=== PATIENT | female | born 1970 | race Caucasian/White ===

== ENCOUNTER → 2020-01-07 13:50 | Outpatient (BNVA) | payer MEDICARE, SELFPAY | PROVIDERS: PCP Internal Medicine; Referring Provider Internal Medicine; Visit Provider Physician Assistant | DX: E66.3 Overweight (principal); Z68.28 Body mass index [BMI] 28.0-28.9, adult; K21.9 Gastro-esophageal reflux disease without esophagitis; K90.49 Malabsorption due to intolerance, not elsewhere classified; Z98.84 Bariatric surgery status | CPT/HCPCS: 99202 ==

== ENCOUNTER 2020-01-28 08:36 | Day surgery (SDC) | payer MEDICARE, SELFPAY ==
--- NOTE | 2020-01-27 11:38 | HO.ANESPROP2 ---
Documented by User: Tenisha Pagan 01/27/20 11:39 HPI - Anesthesia Eval Consult details Narrative: 49yo F for Upper Endoscopy s/p lap band and Asa-en-Y gastric bypass [facility] Past Medical History Medical History Anxiety Asthma Depression Gastric band slippage GERD (gastroesophageal reflux disease) Malabsorption due to intolerance, not elsewhere classified Migraines Overweight (BMI 25.0-29.9) Seasonal allergies Family History Family History Father DM (diabetes mellitus) Heart disease Mother DM (diabetes mellitus) Heart disease Pulmonary hypertension Brother DM (diabetes mellitus) Heart disease Kidney disease Brother HTN (hypertension) DM (diabetes mellitus) High cholesterol Surgical History Surgical History H/O sinus surgery History of Asa-en-Y gastric bypass Hx laparoscopic cholecystectomy Hx of hernia repair Hx of laparoscopic gastric banding Previous back surgery S/P rotator cuff surgery S/P wrist surgery Status post gastric banding Social History Social History Alcohol intake: current Smoking Status: Unknown if ever smoked Use of substances other than those prescribed or required for medical reasons: No Have you been hit, kicked, punched, or otherwise hurt by someone within the past year? If so, by whom?: No Advance Directives: No Advance Directives Information Provided: No Meds Allergies Allergy/AdvReac Type Severity Reaction Status Date / Time No Known Allergies Allergy Unknown Unverified 11/21/19 16:13 Home Medications Medication Instructions Recorded Confirmed Type acetaminophen 500 mg tablet 500 mg PO Q4-6H PRN 01/07/20 History albuterol sulfate 90 mcg/actuation 2 puff INHALATION QID PRN 01/07/20 History aerosol inhaler amitriptyline 25 mg tablet 25 mg PO BEDTIME 01/07/20 History blood sugar diagnostic #10 ea 01/07/20 History bupropion HCl 300 mg 24 hr tablet, mg PO 01/07/20 History extended release clonazepam 0.5 mg tablet 0.5 mg PO DAILY PRN 01/07/20 History clonazepam 1 mg tablet 1 mg PO BEDTIME 01/07/20 History dexlansoprazole 60 mg 60 mg PO BID 01/07/20 History capsule,biphase delayed release doxepin 25 mg capsule mg PO 01/07/20 History estradiol g VAGINAL 01/07/20 History glucagon (human recombinant) 1 mg mg IM DIRECTED 01/07/20 History solution for injection lancets 33 gauge #100 ea 01/07/20 History loratadine 10 mg tablet 10 mg PO DAILY 01/07/20 History lurasidone 60 mg tablet 60 mg PO BEDTIME 01/07/20 History montelukast 10 mg tablet 10 mg PO DAILY 01/07/20 History ondansetron 4 mg disintegrating 4 mg PO Q8H PRN 01/07/20 History tablet topiramate 50 mg tablet 100 mg PO BEDTIME 01/07/20 History ubrogepant 50 mg tablet mg PO 01/07/20 History Exam Exam Date and Time: January 27, 2020 9848 Assessment and Plan Assessment Anesthesia Assessment: Chart Reviewed Documented by User: Naz Bui 01/28/20 09:28 [facility] Past Medical History Medical History Anxiety Asthma Depression Gastric band slippage GERD (gastroesophageal reflux disease) Malabsorption due to intolerance, not elsewhere classified Migraines Overweight (BMI 25.0-29.9) Seasonal allergies Family History Family History Father DM (diabetes mellitus) Heart disease Mother DM (diabetes mellitus) Heart disease Pulmonary hypertension Brother DM (diabetes mellitus) Heart disease Kidney disease Brother HTN (hypertension) DM (diabetes mellitus) High cholesterol Family history of problems with anesthesia: No Surgical History Surgical History H/O sinus surgery History of Asa-en-Y gastric bypass Hx laparoscopic cholecystectomy Hx of hernia repair Hx of laparoscopic gastric banding Previous back surgery S/P rotator cuff surgery S/P wrist surgery Status post gastric banding History of Problems with Anesthesia: No Social History Social History Alcohol intake: current Smoking Status: Unknown if ever smoked Use of substances other than those prescribed or required for medical reasons: No Have you been hit, kicked, punched, or otherwise hurt by someone within the past year? If so, by whom?: No Advance Directives: No Advance Directives Information Provided: No Meds Allergies Allergy/AdvReac Type Severity Reaction Status Date / Time No Known Allergies Allergy Unknown Unverified 11/21/19 16:13 Home Medications Medication Instructions Recorded Confirmed Type acetaminophen 500 mg tablet 500 mg PO Q4-6H PRN 01/07/20 History albuterol sulfate 90 mcg/actuation 2 puff INHALATION QID PRN 01/07/20 History aerosol inhaler amitriptyline 25 mg tablet 25 mg PO BEDTIME 01/07/20 History blood sugar diagnostic #10 ea 01/07/20 History bupropion HCl 300 mg 24 hr tablet, mg PO 01/07/20 History extended release clonazepam 0.5 mg tablet 0.5 mg PO DAILY PRN 01/07/20 History clonazepam 1 mg tablet 1 mg PO BEDTIME 01/07/20 History dexlansoprazole 60 mg 60 mg PO BID 01/07/20 History capsule,biphase delayed release doxepin 25 mg capsule mg PO 01/07/20 History estradiol g VAGINAL 01/07/20 History glucagon (human recombinant) 1 mg mg IM DIRECTED 01/07/20 History solution for injection lancets 33 gauge #100 ea 01/07/20 History loratadine 10 mg tablet 10 mg PO DAILY 01/07/20 History lurasidone 60 mg tablet 60 mg PO BEDTIME 01/07/20 History montelukast 10 mg tablet 10 mg PO DAILY 01/07/20 History ondansetron 4 mg disintegrating 4 mg PO Q8H PRN 01/07/20 History tablet topiramate 50 mg tablet 100 mg PO BEDTIME 01/07/20 History ubrogepant 50 mg tablet mg PO 01/07/20 History Exam Height,Weight and Vital Signs: Vital Signs Temp Pulse Resp BP Pulse Ox 01/28/20 09:00 99 F 76 16 105/66 100 Pertinent Lab Results Pertinent Lab Results: Lab Results 11/24/20 Range/Units 09:02 POC Glucose 80 (60-115) mg/dL Airway Mallampati Class: II TM Dist: >3cm Neck ROM: Limited (Pain, had physical therapy) Loose/Missing/Broken Teeth: No Heart: RRR Lungs: CTAB Assessment and Plan Assessment Anesthesia Assessment: Anesthesia Plan Discussed and Chart Reviewed Final Anesthetic Review NPO: Yes ASA Class: II Final Preanesthetic Review: No Changes in Pt Med Stat, Meds/Allgs Chart Reviewed, Consent Obtained/Reviewed and Anes Risks/Benef Reviewed Patient Risk: Low Procedure Risk: Low Anesthetic Plan Anesthetic Plan: MAC: Disposition: Standard PACU
[2020-01-27 15:17] VITALS: BMI 28.3
[2020-01-28 09:00] VITALS: BP 105/66; PULSE 76; RESP 16; TEMP 37.2; O2SAT 100
[2020-01-28 09:05] LABS: Glucose, Whole Blood 80 mg/dL (60-115)
[2020-01-28] MEDS: Dextrose 5 % 250 ML 50 ML IVCONT (09:10)
[2020-01-28] MEDS: Lactated Ringers 1,000 ML 100 ML IVCONT (09:14)
--- NOTE | 2020-01-28 09:38 | PC.NURSE ---
pt states she has hypoglycemia, checked pt blood glucose @ 17686 and it was 80. pt states she feels that she is getting a headache which is a symptom for her hypoglycemia. Dr. Bui paged and ordered 250cc of D5W. IV established and fluids hung. after infusion of D5W completed, blood glucose rechecked at 0937, POC = 127. pt states headache has improved.
[2020-01-28 09:50] LABS: Glucose, Whole Blood 127 mg/dL (60-115)
--- NOTE | 2020-01-28 10:17 | MHC.SHP ---
Pre-Procedural Eval Section A The patient is an INPATIENT: No The History & Physical has been completed within 30 days and I have reviewed it.: Yes Section B Chief Complaint: Severe Morbid Obesity Details of Present Illness: nausea, vomiting, GERD Relevant Family History (Specify if Yes): No Relevant Social History: None Present Medications: see Short Stay Collaborative assessment Medical History: No relevant PMH History of Previous Operations: Relevant previous surgery/procedure and date(s) (open gastric bypass, lap band over the bypass) Allergies: Allergies Allergy/AdvReac Type Severity Reaction Status Date / Time No Known Allergies Allergy Unknown Unverified 11/21/19 16:13 Review of Systems Sugical H&P ROS: Negative: Constitution, Cardiovascular, Respiratory, Neurological, Psychiatric, Hem-Onc, Allergic/Immunologic, Gastrointestinal, Genitourinary, Musculoskeletal, Integumentary, Endocrine and Eyes/Ears/Nose/Throat Exam Surgical H&P Exam: Normal: HEENT, Normal: Heart, Normal: Lungs, Normal: Extremities, Normal: Abdomen, Normal: Skin and Normal: Neurological Plan Diagnosis/Plan: Unchanged Patient has been examined and remains a candidate for the planned procedure
[2020-01-28 10:51] VITALS: BP 101/56; PULSE 67; RESP 12; TEMP 36.4; O2SAT 100
[2020-01-28 11:06] VITALS: BP 114/68; PULSE 73; RESP 16; O2SAT 100
--- NOTE | 2020-01-28 11:20 | P.BOP_ITS ---
Brief Operative Note Date of Service: 01/28/20 Pre-op diagnosis: GERD, nausea, vomiting, s/p open gastric bypass and lap band Post-op diagnosis: same (1) Slipped band, 2) esophagitis grade II, 3) Brown's esophagus, 4) hiatal hernia, 5) redundant gastric pouch) Procedure: PROCEDURE DATE: 01/28/2020 PREOPERATIVE DIAGNOSIS: GERD, nausea and vomiting s/p gastric bypass and lap band POSTOPERATIVE DIAGNOSIS: Same as above. 1) slipped band, 2) esophagitis grade II, 3) Brown's esophagus, 4) Redundant gastric pouch, 5) hiatal hernia PROCEDURE: Agoxjxpw-pvlojk-goicvmhlgae with biopsies Surgeon: Ajay Mullen M.D.. Ph.D. [employer] T[employer] Builder: None Anesthesia: IV sedation Estimated blood loss: Minimal FINDINGS AND PROCEDURE: OPERATIVE INDICATIONS: The patient is a 49 year old female known to me who underwent an open gastric bypass elsewhere followed by a lap band over the bypass. The patient has persistent nausea, vomiting and GERD. An UGI and CT abdomen/pelvis are suggestive of a slipped band. Based on this information I recommended an upper endoscopy to evaluate the patient's symptoms. Risks and complications of the surgery were discussed with the patient in advance particularly the possibility of perforation or bleeding that may require surgical intervention. The patient understood the risks and was in agreement with the plan. PROCEDURE: After informed consent was obtained by the patient, the patient was transferred to the Operating Room and was placed in the supine position. After successful induction of IV sedation, a mouth block was placed and the patient was placed in the left lateral decubitus position. An upper endoscopy was performed next, the oropharynx and proximal esophagus appeared within the normal limits. Distal esophagus had salmon-like appearance suggestive of Brown's. There was 2-3cm hiatal hernia. The z-line was irregular with tongues of gastric mucosa protruding into the esophagus to <50% circumference. Two biopsies were obtained from the distal esophagus 2-3 cm proximal to the GE junction and two biopsies from the GE junction. GEJ was at 36cm. The gastric pouch was entered. There was lateral redundancy and it was long. The band was at 42cm, 6cm below the GEJ suggestive of significant of slippage or placed incorectly from the beginning. There was no gastritis and the gastrojejunostomy was patent. There was no band erosion. A biopsy was obtained from the gastric pouch. No significant bleeding was noted from any of the biopsy sites. There was no anastomotic ulcer. At that point the scope was advanced into the proximal small intestine (proximal Asa limb) which appeared to be normal as well. The Asa limb and the pouch were decompressed and the scope was withdrawn from the patient's mouth. The patient was awaken and was transferred in stable condition to the Recovery Room for further care. I was present and performed all steps of the procedure. There were no residents to assist with this case. Ajay Mullen M.D., Ph.D. Surgeon: Tobin Mullen MD Estimated blood loss (mL): 5 IV fluids (mL): 300 Urine output (mL): 0 (No Klein to record) Pathology: other (1) GEJ x2, 2) distal esophagus x2, 3) gastric pouch x1) Condition: stable Disposition: PACU
--- NOTE | 2020-01-28 11:35 | HO.POSTANES ---
Post Anesthesia Evaluation Post Anesthesia Evaluation Vital Signs: Vital Signs Temp Pulse Resp BP Pulse Ox 01/28/20 11:06 97.5 F 73 16 114/68 100 01/28/20 10:51 97.5 F 67 12 101/56 L 100 01/28/20 09:00 99 F 76 16 105/66 100 Anesthesia: Monitored Mental Status: Awake Pain Control: Satisfactory Nausea/Vomiting: None Hydration: Adequate Anesthesia-Related Issues: No Anes. Related Issues
== END 2020-01-28 11:45 | disposition home or self-care (01) ==
PROVIDERS: PCP Internal Medicine; Visit Provider Surgery
PROC: 0DJ08ZZ Inspection of Upper Intestinal Tract, Via Natural or Artificial Opening Endoscopic (ICD-10-PCS; CPT 43235; principal; 2020-01-28 09:30)
DX: K95.09 Other complications of gastric band procedure (principal); K21.00 Gastro-esophageal reflux disease with esophagitis, without bleeding; K90.49 Malabsorption due to intolerance, not elsewhere classified; E66.3 Overweight; Z68.28 Body mass index [BMI] 28.0-28.9, adult; K22.70 Barrett's esophagus without dysplasia; K44.9 Diaphragmatic hernia without obstruction or gangrene; J45.909 Unspecified asthma, uncomplicated; Z98.84 Bariatric surgery status
CPT/HCPCS: 43239; 82947; 88305; 88342

== ENCOUNTER 2020-01-29 10:44 | Outpatient (REF) | payer MEDICARE, SELFPAY ==
[2020-01-29 12:15] LABS: Blood Urea Nitrogen 12 mg/dL (9-16); Estimated Glomerular Filt Rate > 60
== END 2020-01-29 10:45 | disposition home or self-care (01) ==
LOC: HO.LAB 10:44
PROVIDERS: PCP Internal Medicine; Visit Provider Physician Assistant
DX: Z01.818 Encounter for other preprocedural examination (principal)
CPT/HCPCS: 82565; 84520

== ENCOUNTER → 2020-02-05 10:12 | Outpatient (BNVA) | payer MEDICARE, SELFPAY | PROVIDERS: PCP Internal Medicine; Referring Provider Internal Medicine; Visit Provider Surgery | DX: K95.09 Other complications of gastric band procedure (principal); K21.9 Gastro-esophageal reflux disease without esophagitis; K20.90 Esophagitis, unspecified without bleeding; K44.9 Diaphragmatic hernia without obstruction or gangrene | CPT/HCPCS: 99212 ==

== ENCOUNTER 2020-02-06 07:10 | Outpatient (REF) | payer MEDICARE, SELFPAY ==
--- NOTE | 2020-02-06 07:45 | CT_ITS ---
EXAMINATION: CT ABDOMEN AND PELVIS WITH CONTRAST CLINICAL INFORMATION: Abdominal pain. History of gastric lap-band. COMPARISON: None TECHNIQUE: Multidetector volumetric images were obtained from the superior aspect of the liver through the pubic symphysis following administration 85 mL of Omnipaque 350 intravenous contrast. Sagittal and coronal reformatted images were obtained on the technologist's workstation. Oral contrast: No This CT examination was performed using dose optimization techniques as appropriate, variously including the following: *Automated exposure control *Adjustment of mA and/or kV according to patient size (this includes techniques or standardized protocols for targeted exams where dose is matched to indication/reason for exam; i.e. extremities or head) *Use of iterative reconstruction technique DLP: 484 mGy-cm FINDINGS: LUNG BASES: The heart size is normal. The lung bases are clear. A small hiatal hernia is seen. LIVER, GALLBLADDER, AND BILIARY TREE: The liver is normal in size, shape, and attenuation. There are punctate hypodensities in the right and left hepatic lobe. No intrahepatic ductal dilatation seen. The gallbladder has been surgically removed. PANCREAS: Unremarkable. SPLEEN: Unremarkable. ADRENAL GLANDS: Unremarkable. KIDNEYS AND URETERS: The kidneys are normal in size, shape, and attenuation. No hydronephrosis, hydroureter, or calculi seen. No perinephric stranding. BLADDER: Unremarkable. GASTROINTESTINAL TRACT: There is scattered stool and gas seen throughout the colon without any significant distention. There is nonspecific mural thickening involving a small segment of small bowel loop in the upper pelvis on axial image 50-60/3. There is a lap-band and post sleeve changes in the left upper quadrant. ABDOMINAL WALL: There is an anterior abdominal wall hernia repair with mesh in place. LYMPH NODES: Normal. VASCULAR: Unremarkable. PELVIC VISCERA: The uterus is retroverted. No adnexal mass or free fluid seen. OSSEOUS STRUCTURES: There is a grade 1 anterolisthesis L5-S1 stabilized with disc hardware and posterior hardware for fusion. The rest of the visualized lumbar spine and the sacral spine is unremarkable. CT/CT abdomen pelvis w con IMPRESSION: Likely sleeve surgery and gastric lap-band changes in the left upper quadrant. There is a small hiatal hernia present. Mild constipation. Evidence of previous anterior abdominal hernia repair with mesh in place. No recurrent herniation. L5-S1 fusion with disc and posterior bony hardware fusion.
--- NOTE | 2020-02-06 07:45 | XR_ITS ---
EXAMINATION: XR CHEST CLINICAL INFORMATION: Chest pain. Over weight. COMPARISON: None TECHNIQUE: 2 views of the chest were obtained. FINDINGS: No significant abnormality is noted involving the heart, lungs, mediastinum, bony thorax or soft tissues. XR/XR chest 2V IMPRESSION: Unremarkable chest examination.
[2020-02-06 08:59] LABS: MANUAL DIFF FLAG NO
[2020-02-06 09:03] LABS: Basophils Absolute Auto 0.1 X10*3/uL (0.0-0.2); Basophils Percent Auto 1.2 % (0-2); Eosinophils Absolute Auto 0.4 X10*3/uL (0.0-0.4); Eosinophils Percent Auto 6.1 % (0-4); Hematocrit 41.5 % (37-47); Hemoglobin 13.5 g/dl (12.0-16.0); Imm Gran Abs Auto 0.01 X10*3/uL (0.00-0.03); Imm Gran Pct Auto 0.2 % (0.0-0.4); Lymphocytes Absolute Auto 2.1 X10*3/uL (1.2-4.9); Mean Corpuscular HGB Conc 32.5 g/dl (31.0-35.0); Mean Corpuscular Hemoglobin 29.8 pg (27.0-33.0); Mean Corpuscular Volume 91.6 fL (80-98); Mean Platelet Volume 10.6 fL (9.4-12.3); Monocytes Absolute Auto 0.6 X10*3/uL (0.1-1.2); Monocytes Percent Auto 9.3 % (2-11); Neutrophils Absolute Auto 2.8 X10*3/uL (2.0-8.3); Neutrophils Percent Auto 47.2 % (45-73); Platelet Count 272 X10*3/uL (160-400); Red Blood Count 4.53 X10*6/uL (4.20-5.50); Red Cell Distribution Width 12.8 % (11.0-16.0); White Blood Count 5.9 X10*3/uL (4.8-10.8)
[2020-02-06 09:14] LABS: INTERNATIONAL NORM RATIO 0.9 (0.9-1.1); Prothrombin Time 10.8 SEC (10.8-13.0)
[2020-02-06 09:16] LABS: Partial Thromboplastin Time 30.4 SEC (24.1-38.0)
[2020-02-06 09:18] LABS: Alanine Aminotransferase 36 U/L (0-31); Albumin Level 4.1 g/dL (3.5-5.0); Alkaline Phosphatase 84 U/L (39-117); Anion Gap 10 (12-20); Aspartate Amino Transferase 30 U/L (5-31); Bilirubin Total 0.4 mg/dL (0.0-1.0); Blood Urea Nitrogen 10 mg/dL (9-16); C Reactive Protein 0.04 mg/dL (< or = 0.50); Calcium 9.3 mg/dL (8.4-10.2); Carbon Dioxide 28 mmol/L (22-29); Chloride 109 mmol/L (96-108); Estimated Glomerular Filt Rate > 60; Glucose Random 79 mg/dL (60-115); Potassium 4.8 mmol/l (3.3-5.1); Sodium 142 mmol/L (135-145); Total Protein 6.5 g/dL (6.5-8.0)
[2020-02-06 09:39] LABS: TSH reflex Free T4 3.39 mIU/mL (0.32-4.0)
--- NOTE | 2020-02-06 10:43 | ECG_ITS ---
Test Reason : SOB, PREOP Blood Pressure : / mmHG Vent. Rate : 064 BPM Atrial Rate : 064 BPM P-R Int : 212 ms QRS Dur : 086 ms QT Int : 402 ms P-R-T Axes : 063 024 060 degrees QTc Int : 414 ms Sinus rhythm with 1st degree A-V block Low voltage QRS Borderline ECG No previous ECGs available Referred By: Tobin Mullen Electronically Signed By:PAUL WATT MD
[2020-02-06] MEDS: iohexoL 350 MG/ML 100 ML INFUS..BTL IV (11:34)
[2020-02-06] MEDS: Barium Sulfate Oral (Vanilla) 450 ML ORAL.SUSP 900 ML PO (11:35)
== END 2020-02-06 07:11 | disposition home or self-care (01) ==
LOC: HO.CT 07:10
PROVIDERS: Surgery; Visit Provider Physician Assistant
DX: K44.9 Diaphragmatic hernia without obstruction or gangrene (principal); K20.90 Esophagitis, unspecified without bleeding; K95.09 Other complications of gastric band procedure; K21.9 Gastro-esophageal reflux disease without esophagitis; K90.49 Malabsorption due to intolerance, not elsewhere classified; F33.2 Major depressive disorder, recurrent severe without psychotic features; E66.3 Overweight; R10.11 Right upper quadrant pain; Z98.84 Bariatric surgery status
CPT/HCPCS: 36415; 71046; 74177; 80053; 84443; 85025; 85610; 85730; 86140; 93005; Q9967

== ENCOUNTER 2020-02-11 05:19 | Inpatient (IN) | payer MEDICARE, OTHER, SELFPAY ==
[2020-02-06 12:16] VITALS: BMI 29.4
--- NOTE | 2020-02-10 13:58 | MHC.SHP ---
Pre-Procedural Eval Section A The patient is an INPATIENT: Yes The History & Physical has been completed within 30 days and I have reviewed it.: Yes Section B Chief Complaint: gastric band problems Details of Present Illness: Vomiting and GERD Relevant Family History (Specify if Yes): No Relevant Social History: None Present Medications: see Short Stay Collaborative assessment Medical History: No relevant PMH History of Previous Operations: Relevant previous surgery/procedure and date(s) (open gastric bypass and lap band ) Allergies: Allergies Allergy/AdvReac Type Severity Reaction Status Date / Time No Known Allergies Allergy Unknown Unverified 02/05/20 10:31 Review of Systems Sugical H&P ROS: Negative: Constitution, Cardiovascular, Respiratory, Neurological, Psychiatric, Hem-Onc, Allergic/Immunologic, Gastrointestinal, Genitourinary, Musculoskeletal, Integumentary, Endocrine and Eyes/Ears/Nose/Throat Exam Surgical H&P Exam: Normal: HEENT, Normal: Heart, Normal: Lungs, Normal: Extremities, Normal: Abdomen, Normal: Skin and Normal: Neurological Plan Diagnosis/Plan: Unchanged Patient has been examined and remains a candidate for the planned procedure
[2020-02-11] VITALS (11 sets, daily range): BP systolic 99–142; BP diastolic 62–83; PULSE 68–85; RESP 12–18; TEMP 36.3–37.1; O2SAT 94–100
[2020-02-11 06:14] LABS: COVID-19 Test Negative (Negative)
[2020-02-11] MEDS: ceFAZolin Sodium/Dextrose,Iso 2 GM/50 ML PIGGYBACK IV ×2 (06:15→12:56)
[2020-02-11] MEDS: Lactated Ringers 1,000 ML 999 ML IVCONT (06:42)
[2020-02-11] MEDS: Lactated Ringers 1,000 ML 50 ML IVCONT (06:45)
--- NOTE | 2020-02-11 07:10 | HO.ANESPROP2 ---
[facility] Past Medical History Medical History Anxiety Asthma Depression Gastric band slippage GERD (gastroesophageal reflux disease) Hypoglycemia Malabsorption due to intolerance, not elsewhere classified Migraines Overweight (BMI 25.0-29.9) Seasonal allergies Family History Family History Father DM (diabetes mellitus) Heart disease Mother DM (diabetes mellitus) Heart disease Pulmonary hypertension Brother DM (diabetes mellitus) Heart disease Kidney disease Brother HTN (hypertension) DM (diabetes mellitus) High cholesterol Surgical History Surgical History H/O sinus surgery History of esophagogastroduodenoscopy (EGD) History of Asa-en-Y gastric bypass Hx laparoscopic cholecystectomy Hx of hernia repair Hx of laparoscopic gastric banding Previous back surgery S/P rotator cuff surgery S/P wrist surgery Status post gastric banding Social History Social History Alcohol intake: current Smoking Status: Never smoker Second Hand Smoke Exposure: No Advance Directives: No Advance Directives Information Provided: Yes Meds Allergies Allergy/AdvReac Type Severity Reaction Status Date / Time No Known Allergies Allergy Unknown Unverified 02/05/20 10:31 Home Medications Medication Instructions Recorded Confirmed Type acetaminophen 500 mg tablet 500 mg PO Q4-6H PRN 01/07/20 02/06/20 History albuterol sulfate 90 mcg/actuation 2 puff INHALATION QID PRN 01/07/20 02/06/20 History aerosol inhaler amitriptyline 25 mg tablet 25 mg PO BEDTIME 01/07/20 02/06/20 History blood sugar diagnostic #10 ea 01/07/20 History bupropion HCl 300 mg 24 hr tablet, 300 mg PO DAILY 01/07/20 02/06/20 History extended release clonazepam 0.5 mg tablet 0.5 mg PO DAILY PRN 01/07/20 02/06/20 History clonazepam 1 mg tablet 1 mg PO BEDTIME 01/07/20 02/06/20 History dexlansoprazole 60 mg 60 mg PO BID 01/07/20 02/11/20 History capsule,biphase delayed release doxepin 25 mg capsule 25 mg PO BEDTIME 01/07/20 02/06/20 History glucagon (human recombinant) 1 mg 1 mg IM DIRECTED 01/07/20 02/06/20 History solution for injection lancets 33 gauge #100 ea 01/07/20 History loratadine 10 mg tablet 10 mg PO DAILY 01/07/20 02/06/20 History lurasidone 60 mg tablet 60 mg PO BEDTIME 01/07/20 02/06/20 History montelukast 10 mg tablet 10 mg PO BEDTIME 01/07/20 02/06/20 History topiramate 50 mg tablet 100 mg PO BEDTIME 01/07/20 02/06/20 History ubrogepant 50 mg tablet 50 mg PO DIRECTED PRN 01/07/20 02/06/20 History Exam Exam Date and Time: February 11, 2020 0710 Height,Weight and Vital Signs: Height 5 ft 2 in Weight 73.028 kg Last Vital Signs Temp 98.8 F 02/11/20 06:20 Pulse 73 02/11/20 06:20 Resp 16 02/11/20 06:20 BP 99/74 02/11/20 06:20 Pulse Ox 95 02/11/20 06:20 Pertinent Lab Results Pertinent Lab Results: Laboratory Tests 02/06/20 02/11/20 07:23 05:53 COVID-19 (TIN) Negative COVID-19 Clin Com See Note Blood Type A Negative Antibody Screen NEGATIVE Airway Mallampati Class: II TM Dist: >3cm Neck ROM: Full Denture: Upper and Lower Heart: [id number] Lungs: cta b/l Assessment and Plan Assessment Anesthesia Assessment: Anesthesia Plan Discussed and Chart Reviewed Final Anesthetic Review NPO: Yes ASA Class: III Final Preanesthetic Review: No Changes in Pt Med Stat, Meds/Allgs Chart Reviewed, Consent Obtained/Reviewed and Anes Risks/Benef Reviewed Patient Risk: Intermediate Procedure Risk: Low Assessment/Block/Sedation in SS: Assess/Block/Sedation-SS Anesthetic Plan Anesthetic Plan: MAC: Disposition: Standard PACU
--- NOTE | 2020-02-11 07:15 | HO.ANESPROP2 ---
FORMERLY [facility] Past Medical History Medical History Anxiety Asthma Depression Gastric band slippage GERD (gastroesophageal reflux disease) Hypoglycemia Malabsorption due to intolerance, not elsewhere classified Migraines Overweight (BMI 25.0-29.9) Seasonal allergies Family History Family History Father DM (diabetes mellitus) Heart disease Mother DM (diabetes mellitus) Heart disease Pulmonary hypertension Brother DM (diabetes mellitus) Heart disease Kidney disease Brother HTN (hypertension) DM (diabetes mellitus) High cholesterol Surgical History Surgical History H/O sinus surgery History of esophagogastroduodenoscopy (EGD) History of Asa-en-Y gastric bypass Hx laparoscopic cholecystectomy Hx of hernia repair Hx of laparoscopic gastric banding Previous back surgery S/P rotator cuff surgery S/P wrist surgery Status post gastric banding Social History Social History Alcohol intake: current Smoking Status: Never smoker Second Hand Smoke Exposure: No Advance Directives: No Advance Directives Information Provided: Yes Meds Allergies Allergy/AdvReac Type Severity Reaction Status Date / Time No Known Allergies Allergy Unknown Unverified 02/05/20 10:31 Home Medications Medication Instructions Recorded Confirmed Type acetaminophen 500 mg tablet 500 mg PO Q4-6H PRN 01/07/20 02/06/20 History albuterol sulfate 90 mcg/actuation 2 puff INHALATION QID PRN 01/07/20 02/06/20 History aerosol inhaler amitriptyline 25 mg tablet 25 mg PO BEDTIME 01/07/20 02/06/20 History blood sugar diagnostic #10 ea 01/07/20 History bupropion HCl 300 mg 24 hr tablet, 300 mg PO DAILY 01/07/20 02/06/20 History extended release clonazepam 0.5 mg tablet 0.5 mg PO DAILY PRN 01/07/20 02/06/20 History clonazepam 1 mg tablet 1 mg PO BEDTIME 01/07/20 02/06/20 History dexlansoprazole 60 mg 60 mg PO BID 01/07/20 02/11/20 History capsule,biphase delayed release doxepin 25 mg capsule 25 mg PO BEDTIME 01/07/20 02/06/20 History glucagon (human recombinant) 1 mg 1 mg IM DIRECTED 01/07/20 02/06/20 History solution for injection lancets 33 gauge #100 ea 01/07/20 History loratadine 10 mg tablet 10 mg PO DAILY 01/07/20 02/06/20 History lurasidone 60 mg tablet 60 mg PO BEDTIME 01/07/20 02/06/20 History montelukast 10 mg tablet 10 mg PO BEDTIME 01/07/20 02/06/20 History topiramate 50 mg tablet 100 mg PO BEDTIME 01/07/20 02/06/20 History ubrogepant 50 mg tablet 50 mg PO DIRECTED PRN 01/07/20 02/06/20 History Exam Exam Date and Time: February 11, 2020714 Height,Weight and Vital Signs: Height 5 ft 2 in Weight 73.028 kg Last Vital Signs Temp 98.8 F 02/11/20 06:20 Pulse 73 02/11/20 06:20 Resp 16 02/11/20 06:20 BP 99/74 02/11/20 06:20 Pulse Ox 95 02/11/20 06:20 Pertinent Lab Results Pertinent Lab Results: Laboratory Tests 02/06/20 02/11/20 07:23 05:53 COVID-19 (TIN) Negative COVID-19 Clin Com See Note Blood Type A Negative Antibody Screen NEGATIVE Airway Mallampati Class: II TM Dist: >3cm Neck ROM: Full Loose/Missing/Broken Teeth: No Heart: [id number] Lungs: cta b/l Assessment and Plan Assessment Anesthesia Assessment: Anesthesia Plan Discussed and Chart Reviewed Final Anesthetic Review NPO: Yes ASA Class: III Final Preanesthetic Review: No Changes in Pt Med Stat, Meds/Allgs Chart Reviewed, Consent Obtained/Reviewed and Anes Risks/Benef Reviewed Patient Risk: Intermediate Procedure Risk: Low Assessment/Block/Sedation in SS: Assess/Block/Sedation-SS Anesthetic Plan Anesthetic Plan: GA and Agree w/ Assess. and Plan Disposition: Standard PACU
--- NOTE | 2020-02-11 08:12 | PC.NURSE ---
removed liquid tylenol iv for procedure. awaiting for md order. anesthesia cortext .
[2020-02-11] MEDS: ondansetron HCL 4 MG/2 ML VIAL IVPUSH (11:18)
[2020-02-11] MEDS: Famotidine/PF 20 MG/2 ML VIAL IVPUSH ×2 (11:35→21:02)
[2020-02-11 11:49] LABS: MANUAL DIFF FLAG NO
[2020-02-11 11:51] LABS: Basophils Percent Auto 0.4 % (0-2); Eosinophils Absolute Auto 0.1 X10*3/uL (0.0-0.4); Eosinophils Percent Auto 0.7 % (0-4); Hematocrit 41.2 % (37-47); Hemoglobin 13.5 g/dl (12.0-16.0); Imm Gran Abs Auto 0.03 X10*3/uL (0.00-0.03); Imm Gran Pct Auto 0.3 % (0.0-0.4); Lymphocytes Absolute Auto 0.9 X10*3/uL (1.2-4.9); Lymphocytes Percent Auto 10.1 % (20-40); Mean Corpuscular HGB Conc 32.8 g/dl (31.0-35.0); Mean Corpuscular Volume 91.6 fL (80-98); Mean Platelet Volume 10.1 fL (9.4-12.3); Monocytes Absolute Auto 0.2 X10*3/uL (0.1-1.2); Monocytes Percent Auto 2.3 % (2-11); Neutrophils Absolute Auto 7.8 X10*3/uL (2.0-8.3); Neutrophils Percent Auto 86.2 % (45-73); Platelet Count 236 X10*3/uL (160-400); Red Cell Distribution Width 12.7 % (11.0-16.0)
[2020-02-11 12:18] LABS: Anion Gap 12 (12-20); Blood Urea Nitrogen 18 mg/dL (9-16); Calcium 8.7 mg/dL (8.4-10.2); Carbon Dioxide 24 mmol/L (22-29); Chloride 106 mmol/L (96-108); Creatinine Clr Calc Pharmacy 87.6; Estimated Glomerular Filt Rate > 60; Glucose Random 112 mg/dL (60-115); Potassium 4.7 mmol/l (3.3-5.1); Sodium 137 mmol/L (135-145)
[2020-02-11] MEDS: HYDROmorphone HCl 0.5 MG/0.5 ML SYRINGE 0.25 MG IVPUSH (12:52)
[2020-02-11] MEDS: Lactated Ringers 1,000 ML 125 ML IVCONT ×2 (12:53→21:05)
--- NOTE | 2020-02-11 12:56 | P.BOP_ITS ---
Brief Operative Note Date of Service: 02/11/20 Pre-op diagnosis: Severe vomiting/nausea/GERD/Esophagits/Diaphragmatic hernia Post-op diagnosis: same (extensive abdominal adhesions) Procedure: PROCEDURE: Esophago-gastroscopy, extensive laparoscopic lysis of adhesions, laparoscopic gastric band removal and accessories INDICATIONS: This is a 49 year-old female who presented woth severe nausea/vomiting/GERD. The patient had an open gastric bypass at [facility], followed by a lap band procedure by Dr. Nunes. Upon review of previous records and work-up here, the patient was found to have a slipped band being at the level of the gastro-jejunostomy, a fixed diaphragmatic hernia, as well as ersophagitis on upper endoscopy. Due to the above the patient was electively scheduled for laparoscopic, possibly open removal of the gastric band, with a possible hiatal hernia repair, if feasible. The risks and complications of the procedure were discussed with the patient in advance, particularly the possibility of ; pulmonary embolism; staple line leak; bleeding; GERD; cardiac, pulmonary, or renal complications. The patient understood all the risks, and was in agreement to proceed with surgery. DESCRIPTION OF PROCEDURE: After informed consent was obtained from the patient, the patient was given preoperative antibiotics, and was transferred to the operating room. After successful induction of general anesthesia, pneumatic compressive devices were placed on both lower extremities. An upper endoscopy was performed next. The oropharynx and esophagus appeared to be within normal limits. There was a diaphragmatic hernia present of moderate size consistent with the findings of the preoperative upper GI. The stomach was entered. Then after all fluid and air were suctioned and the stomach was fully decompressed, the scope was withdrawn and secured in the mid esophagus. The patient was then prepped and draped in the usual sterile manner. Due to the previous open gastric bypass midline incision, panniculectomy and laparoscopic incisional ventral hernia repair with mesh, abdominal access was established at the right flank and the anterior axillary line with the Karla technique. A 12 mm blunt port was inserted, and the abdomen was insufflated with CO2 to a pressure of 15 mmHg. Under direct visualization, additional ports were placed, specifically two 5 mm Versi-step ports to the right flank at the posterior axillary line and at the midline at the suprapubic region. 1% lidocained plan was used to infiltrate all port sites as well as all fascia defects. There were numerous, dense and extensive adhesions at the area of the mesh involving the omentum and the transverse colon. Careful and tedious dissection allowed to take down all these adhesions and expose the upper abdomen. Adhesiolysis for this part took 90 minutes. Following that, the patient was placed in a steep reverse Trendelenburg position. Three additional 5 mm port were placed, two of which in the left upper abdomen and one to the right upper quadrant. The remnant stomach was carefully freed from the undersurface of the right and left liver lobe. The tubing system was identified. It was embedded within a fibrin capsule. It was cut as proximally as possible and distally as near to the port as possible and was removed without difficulty. I continued to work near the caudate lobe advancing into the hiatus. This allowed us to expose the band . The fibrous capsule was freed enough to mobilize the band. At that point it was cut and was pulled from around the gastric pouch. It was removed intact from the patient's abdomen. I the fibrinous capsule from the liver bed and I was able to see the right mahnaz. There was an obvious diaphragmatic hernia present. However there were extensive adhesions remaining to dissect the hiatus. As we had already spent 2 hours and 40 minutes taking down adhesions and there was a risk of a possible injury in the gastro-jejunostomy or pouch from further dissection, I decided to stop at this point. I feel that the removal of the band will significantly improve the patient's symptoms. The Karla port was closed with a #1 suture using the EndoClose suture passer. The abdomen was deflated. The 5mm trocar right upper quadrant incision was enlarged and using cautery the port was easily identified and removed intact. Hemostasis was obtained. Then 100 cc 0.25 % Marcaine plain with 10 mg of Dexamethasone were used to infiltrate the fascial closure as well as all skin incisions. At this point, the abdomen was deflated, all ports were removed under direct vision, and no bleeding was noted from any of the port sites. The skin incisions were irrigated with saline and were closed with 4-0 absorbable monofilament sutures. Steri- Strips and OpSites were used to cover all incisions. The patient was extubated and was transferred in stable condition to the recovery room for further care. I was present and performed all hearn parts of the procedure. Ms. 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 There were no residents to assist with this case. Ajay Mullen MD, PhD, FACS Surgeon: Tobin Mullen MD Anesthesia: GETA, local and other (TAP block) Mechanical Sound Technician: Chula Hennessy Estimated blood loss (mL): 10 IV fluids (mL): 2,500 Urine output (mL): 0 (No Klein to record) Pathology: other (Lap band and accessories) Condition: stable Disposition: PACU
[2020-02-11 14:57] LABS: Glucose, Whole Blood 139 mg/dL (60-115)
--- NOTE | 2020-02-11 15:19 | MHC.CM.PN ---
EMR reviewed, this RN met with pt s/p lap band removal who is alert and oriented, denies current pain after receiving pain medication, pt reports she lives independently in an apt and has support from brother and [id number] who will transport pt home. When asking pt about HCP pt reported she has one however wants to complete a new one and have her brother Alejandro Garcia and [id number] Marva Garcia as her health care agents, this RN will assist pt with this on 02/12/20 due to pt having anesthesia today. Pt also reported she was interested in the Care Team, this RN will follow-up w/pt about her current outpt services she receives now which include therapy and psychiatry and determine if they have a community outreach person. Anticipate discharge plan home with no services, will con't to follow pt.
--- NOTE | 2020-02-11 20:10 | PM.PNGS ---
Subjective Subjective Date of Service: 02/12/20 Interval history: Mild incisional pain. Was able to ambulate and use the incentive spirometer. Physical Exam Vital Signs: Vital Signs: Last Vital Signs Temp 97.6 F 02/11/20 19:45 Pulse 70 02/11/20 19:45 Resp 18 02/11/20 19:45 BP 128/62 02/11/20 19:45 Pulse Ox 94 02/11/20 19:45 Body Mass Index 29.4 GI: Inspection: Yes normal to inspection and Yes incision (clean, dry and intact) Extrem: Right lower extremity: normal to inspection (no calf tenderness) Left lower extremity: normal to inspection (no calf tenderness) Progress Note: A&P Assessment and plan (1) Esophagitis: Status: Acute (2) Diaphragmatic hernia: Status: Acute (3) Gastric band slippage: Status: Acute Assessment and Plan: s/p extensive lysis of adhesions and lap band removal Doing well Will discharge this am. (4) Malabsorption due to intolerance, not elsewhere classified: Status: Acute (5) Status post gastric banding: Status: Acute (6) GERD (gastroesophageal reflux disease): Status: Acute (7) Overweight (BMI 25.0-29.9): Status: Acute (8) Major depressive disorder, recurrent severe without psychotic features: Status: Acute (9) Abdominal adhesions: Status: Acute Fall Risk Details Current Medications: Current Medications Generic Name Dose Route Start Last Admin Trade Name Freq PRN Reason Stop Dose Admin Albuterol Sulfate 2 puff 02/11/20 12:35 Albuterol Sulfate 90 Mcg 8 Gm Inhaler INHALE QID PRN wheezing Amitriptyline HCl 25 mg 02/11/20 21:00 Amitriptyline Hcl 25 Mg Tablet PO BEDTIME LIZZ Bupropion HCl 300 mg 02/12/20 09:00 Bupropion Hcl Xl 300 Mg Tab.Er.24h PO DAILY LIZZ Clonazepam 0.5 mg 02/11/20 12:35 Clonazepam 0.5 Mg Tablet PO DAILY PRN Anxiety Famotidine 20 mg 02/11/20 11:15 02/11/20 11:35 Famotidine/Pf 20 Mg/2 Ml Vial IVPUSH 20 mg BID LIZZ Administration Fentanyl 50 mcg 02/11/20 07:14 Fentanyl Citrate/Pf 100 Mcg/2 Ml Vial IVPUSH Q5M PRN Pain, Moderate (Pain Scale 4-6 Hydromorphone HCl 0.5 mg 02/11/20 07:14 Hydromorphone Hcl 0.5 Mg/0.5 Ml Syringe IVPUSH Q5M PRN Pain, Severe (Pain Scale 7-10) Hydromorphone HCl 0.25 mg 02/11/20 11:02 02/11/20 12:52 Hydromorphone Hcl 0.5 Mg/0.5 Ml Syringe IVPUSH 0.25 mg Q4H PRN Administration Pain, Moderate (Pain Scale 4-6 Lactated Ringer's 1,000 mls @ 50 mls/hr 02/11/20 07:15 02/11/20 06:45 Lr IVCONT 50 mls/hr .Q20H LIZZ Administration Acetaminophen 1,000 mg in 100 mls @ 16.7 mls/hr 02/11/20 11:15 02/11/20 15:54 Ofirmev IV 16.7 mls/hr .Q6H LIZZ Administration Lactated Ringer's 1,000 mls @ 125 mls/hr 02/11/20 11:15 02/11/20 12:53 Lr IVCONT 125 mls/hr .Q8H LIZZ Administration Lurasidone HCl 60 mg 02/11/20 21:00 Lurasidone Hcl 20 Mg Tablet PO BEDTIME LIZZ Metoclopramide HCl 10 mg 02/11/20 11:02 Metoclopramide Hcl 10 Mg/2 Ml Vial IVPUSH Q6H PRN Nausea Montelukast Sodium 10 mg 02/11/20 21:00 Montelukast Sodium 10 Mg Tablet PO BEDTIME LIZZ Ondansetron HCl 4 mg 02/11/20 07:11 02/11/20 11:18 Ondansetron Hcl 4 Mg/2 Ml Vial IVPUSH 4 mg ONCE PRN Administration Nausea and Vomiting Ondansetron HCl 4 mg 02/11/20 07:14 Ondansetron Hcl 4 Mg/2 Ml Vial IVPUSH ONCE PRN Nausea and Vomiting Ondansetron HCl 4 mg 02/11/20 11:02 Ondansetron Hcl 4 Mg/2 Ml Vial IVPUSH Q8H PRN Nausea Oxycodone HCl 5 mg 02/11/20 07:14 Oxycodone Hcl Immed Release 5 Mg Tablet PO ONCE PRN Pain, Severe (Pain Scale 7-10) Sodium Chloride 3 ml 02/11/20 16:00 02/11/20 14:56 0.9 % Sodium Chloride Flush 3 Ml Syringe IVFLUSH Not Given QSHIFT LIZZ Topiramate 100 mg 02/11/20 21:00 Topiramate 25 Mg Tablet PO BEDTIME LIZZ Time Spent With Patient Time: Total time spent is greater than 50% in coordination of care (as documented) at patient's floor/unit and/or counseling patient: Time with patient: less than 15 minutes
[2020-02-11 20:31] LABS: Glucose, Whole Blood 134 mg/dL (60-115)
[2020-02-11] MEDS: Lurasidone HCl 20 MG TABLET 60 MG PO (21:02)
[2020-02-11] MEDS: Montelukast Sodium 10 MG TABLET PO (21:02)
[2020-02-11] MEDS: Topiramate 25 MG TABLET 100 MG PO (21:02)
[2020-02-11] MEDS: 0.9 % Sodium Chloride Flush 3 ML SYRINGE IVFLUSH (21:03)
[2020-02-11] MEDS: Amitriptyline HCl 25 MG TABLET PO (21:05)
[2020-02-12] VITALS: BP 96/60; PULSE 70; RESP 16; TEMP 36.6; O2SAT 97
[2020-02-12 03:48] VITALS: BP 93/63; PULSE 72; RESP 16; TEMP 36.6; O2SAT 96
[2020-02-12] MEDS: Lactated Ringers 1,000 ML 150 ML IVCONT (04:17)
--- NOTE | 2020-02-12 06:56 | PC.NURSE ---
pt's bp at 0000 was 96/60, hr 70, [place] connect message to jonathan darby, orders to increase fluids to 150 ml/hr, lr increased to 150 from 125. pt's bp at 0400 was 93/63, hr 72, Avieon connect sent to jonathan darby, 500 cc bolus of lr ordered. bolus running now. day nurse will continue to monitor.
[2020-02-12] MEDS: ondansetron HCL 4 MG/2 ML VIAL IVPUSH (06:57)
[2020-02-12] MEDS: Lactated Ringers 500 ML IVCONT (06:58)
[2020-02-12 07:12] LABS: MANUAL DIFF FLAG NO
[2020-02-12 07:29] LABS: Basophils Absolute Auto 0.1 X10*3/uL (0.0-0.2); Basophils Percent Auto 0.8 % (0-2); Eosinophils Percent Auto 0.4 % (0-4); Hematocrit 37.4 % (37-47); Hemoglobin 12.3 g/dl (12.0-16.0); Imm Gran Abs Auto 0.02 X10*3/uL (0.00-0.03); Imm Gran Pct Auto 0.3 % (0.0-0.4); Lymphocytes Absolute Auto 1.8 X10*3/uL (1.2-4.9); Lymphocytes Percent Auto 22.9 % (20-40); Mean Corpuscular HGB Conc 32.9 g/dl (31.0-35.0); Mean Corpuscular Hemoglobin 30.1 pg (27.0-33.0); Mean Corpuscular Volume 91.4 fL (80-98); Mean Platelet Volume 10.3 fL (9.4-12.3); Monocytes Percent Auto 13.1 % (2-11); Neutrophils Absolute Auto 4.9 X10*3/uL (2.0-8.3); Neutrophils Percent Auto 62.5 % (45-73); Platelet Count 250 X10*3/uL (160-400); Red Blood Count 4.09 X10*6/uL (4.20-5.50); Red Cell Distribution Width 12.6 % (11.0-16.0); White Blood Count 7.9 X10*3/uL (4.8-10.8)
[2020-02-12 07:33] VITALS: BP 96/56; PULSE 69; RESP 18; TEMP 36.7; O2SAT 97
[2020-02-12 07:59] LABS: Anion Gap 13 (12-20); Blood Urea Nitrogen 11 mg/dL (9-16); Calcium 8.2 mg/dL (8.4-10.2); Carbon Dioxide 21 mmol/L (22-29); Chloride 109 mmol/L (96-108); Creatinine Clr Calc Pharmacy 102.1; Estimated Glomerular Filt Rate > 60; Glucose Random 79 mg/dL (60-115); Potassium 4.2 mmol/l (3.3-5.1); Sodium 139 mmol/L (135-145)
[2020-02-12] MEDS: Famotidine/PF 20 MG/2 ML VIAL IVPUSH (08:18)
[2020-02-12] MEDS: buPROPion HCl XL 300 MG TAB.ER.24H PO (08:18)
--- NOTE | 2020-02-12 09:54 | MHC.CM.PN ---
CASE MANAGEMENT DISCHARGE NOTE: THIS RN WENT TO PT'S ROOM TO FOLLOW-UP WITH CHANGING HCP AND REVIEW MENTAL HEALTH SERVICES DISCUSSED 02/11/20 HOWEVER HAD ALREADY DISCHARGED. DISCHARGE PLAN HOME, SELF CARE W/NO SERVICES.
--- NOTE | 2020-02-12 12:30 | HO.POSTANES ---
Post Anesthesia Evaluation Post Anesthesia Evaluation Vital Signs: Vital Signs Temp Pulse Resp BP Pulse Ox 02/12/20 07:33 98.1 F 69 18 96/56 L 97 02/12/20 03:48 97.9 F 72 16 93/63 96 Anesthesia: General Endotracheal-GETA Mental Status: Awake Pain Control: Satisfactory Nausea/Vomiting: None Hydration: Adequate Anesthesia-Related Issues: No Anes. Related Issues
--- NOTE | 2020-02-26 13:57 | PM.DS ---
DS: Providers Provider Date of admission: 02/11/20 05:19 Primary care physician: Unknown Physician DS: Diagnosis Discharge Diagnosis (1) Esophagitis: Status: Acute (2) Diaphragmatic hernia: Status: Acute (3) Gastric band slippage: Status: Acute (4) Malabsorption due to intolerance, not elsewhere classified: Status: Acute (5) Status post gastric banding: Status: Acute (6) GERD (gastroesophageal reflux disease): Status: Acute (7) Overweight (BMI 25.0-29.9): Status: Acute (8) Major depressive disorder, recurrent severe without psychotic features: Status: Acute (9) Abdominal adhesions: Status: Acute DS: Medications Discharge Medications Home Medications: Home Medications Medication Instructions Recorded Confirmed acetaminophen 500 mg tablet 500 mg PO Q4-6H PRN 01/07/20 02/06/20 albuterol sulfate 90 mcg/actuation 2 puff INHALATION QID PRN 01/07/20 02/06/20 aerosol inhaler amitriptyline 25 mg tablet 25 mg PO BEDTIME 01/07/20 02/06/20 blood sugar diagnostic #10 ea 01/07/20 bupropion HCl 300 mg 24 hr tablet, 300 mg PO DAILY 01/07/20 02/06/20 extended release clonazepam 0.5 mg tablet 0.5 mg PO DAILY PRN 01/07/20 02/06/20 clonazepam 1 mg tablet 1 mg PO BEDTIME 01/07/20 02/06/20 dexlansoprazole 60 mg 60 mg PO BID 01/07/20 02/11/20 capsule,biphase delayed release doxepin 25 mg capsule 25 mg PO BEDTIME 01/07/20 02/06/20 glucagon (human recombinant) 1 mg 1 mg IM DIRECTED 01/07/20 02/06/20 solution for injection lancets 33 gauge #100 ea 01/07/20 loratadine 10 mg tablet 10 mg PO DAILY 01/07/20 02/06/20 lurasidone 60 mg tablet 60 mg PO BEDTIME 01/07/20 02/06/20 montelukast 10 mg tablet 10 mg PO BEDTIME 01/07/20 02/06/20 topiramate 50 mg tablet 100 mg PO BEDTIME 01/07/20 02/06/20 ubrogepant 50 mg tablet 50 mg PO DIRECTED PRN 01/07/20 02/06/20 Previous Rx's Medication Instructions Recorded ondansetron HCl 4 mg tablet 4 mg PO Q6H PRN #30 tab 02/05/20 polyethylene glycol 3350 17 gram 17 g PO DAILY #14 ea 02/06/20 oral powder packet phentermine 37.5 mg capsule 37.5 mg PO DAILY #30 cap 02/19/20 DS: Summary Time Spent with Patient Time attestation: Total time spent providing and/or coordinating discharge services: Physical Exam Vital Signs: Vital Signs: Last Vital Signs Temp 98.1 F 02/12/20 07:33 Pulse 69 02/12/20 07:33 Resp 18 02/12/20 07:33 BP 96/56 L 02/12/20 07:33 Pulse Ox 97 02/12/20 07:33 Body Mass Index 29.4 DS: Data Data Completed and Pending Completed studies during hospitalization [Text1]: Pending at discharge 02/11/20 09:43 Surgical [PTH] Routine Procedures Release Peritoneum, Percutaneous Endoscopic Approach (02/11/20) Removal of Extraluminal Device from Stomach, Percutaneous Endoscopic Approach (02/11/20) Labs on day of discharge: 02/06/20 07:23 Type and Screen Routine 02/10/20 13:54 ceFAZolin Sodium/Dextrose,Iso [Ancef] 2 gm in 50 ml IV PREOP 02/10/20 14:00 Lactated Ringers [Lr] 1,000 ml IVCONT 999 mls/hr 02/11/20 05:53 COVID-19 ID NOW ([facility]) Stat 02/11/20 06:12 ceFAZolin Sodium/Dextrose,Iso [Ancef] 2 gm in 50 ml .ROUTE As directed 02/11/20 07:00 dexAMETHasone Sod Phosphate/PF [Decadron] 10 mg .ROUTE .STK-MED ONE 02/11/20 07:07 Bupivacaine MPF 0.25 % [Sensorcaine-MPF 0.25% 10 ML] 10 ml .ROUTE .STK-MED ONE Lidocaine HCl 1 % MPF [Xylocaine 1 % MPF] 5 ml .ROUTE .STK-MED ONE 02/11/20 07:11 ondansetron HCL [Zofran] 4 mg IVPUSH ONCE PRN 02/11/20 07:14 HYDROmorphone HCl [Dilaudid] 0.5 mg IVPUSH Q5M PRN fentaNYL citrate/PF [Sublimaze] 50 mcg IVPUSH Q5M PRN ondansetron HCL [Zofran] 4 mg IVPUSH ONCE PRN oxyCODONE HCl Immed Release [Roxicodone] 5 mg PO ONCE PRN 02/11/20 07:15 Lactated Ringers [Lr] 1,000 ml IVCONT 50 mls/hr 02/11/20 07:20 Ketamine HCl/NS 50 mg IVPUSH .STK-MED ONE Lidocaine HCl 2 % MPF [Xylocaine 2 % MPF] 5 ml .ROUTE .STK-MED ONE Midazolam HCl/PF [Versed] 2 mg .ROUTE .STK-MED ONE Rocuronium [place] [Zemuron] 100 mg IV .STK-MED ONE fentaNYL citrate/PF [Sublimaze] 50 mcg .ROUTE .STK-MED ONE propofoL [Diprivan] 200 mg IVPUSH .STK-MED ONE 02/11/20 07:28 Acetaminophen [Ofirmev] 1,000 mg in 100 ml IV As directed 02/11/20 08:03 dexAMETHasone sod phosphate [Decadron] 4 mg .ROUTE .STK-MED ONE ondansetron HCL [Zofran] 4 mg .ROUTE .STK-MED ONE 02/11/20 08:19 Acetaminophen [Ofirmev] 1,000 mg in 100 ml IV PREOP 02/11/20 08:36 HYDROmorphone HCl [Dilaudid] 2 mg .ROUTE .STK-MED ONE 02/11/20 09:43 Surgical [PTH] Routine 02/11/20 10:34 Sugammadex Sodium [Bridion] 200 mg IVPUSH .STK-MED ONE 02/11/20 10:37 propofoL [Diprivan] 200 mg IVPUSH .STK-MED ONE 02/11/20 10:54 Transfer Order Routine 02/11/20 11:02 Ambulate Q4H WHILE AWAKE Compression Therapy QSHIFT Incentive Spirometry Q1HR WHILE AWAKE Intake and Output Q4HR Up ad abdifatah .Continous Code Status Routine HYDROmorphone HCl [Dilaudid] 0.25 mg IVPUSH Q4H PRN Metoclopramide HCl [Reglan] 10 mg IVPUSH Q6H PRN ondansetron HCL [Zofran] 4 mg IVPUSH Q8H PRN 02/11/20 11:03 Vital Signs Q4H 02/11/20 11:15 Acetaminophen [Ofirmev] 1,000 mg in 100 ml IV 16.7 mls/hr Famotidine/PF [Pepcid/PF] 20 mg IVPUSH BID Lactated Ringers [Lr] 1,000 ml IVCONT 150 mls/hr 02/11/20 11:33 Famotidine/PF [Pepcid/PF] 20 mg IVPUSH .STK-MED ONE 02/11/20 11:41 Basic Metabolic Panel Stat Complete Blood Count Auto Diff DAILY@0500 02/11/20 12:15 ceFAZolin Sodium/Dextrose,Iso [Ancef] 2 gm in 50 ml IV POSTOP 02/11/20 12:35 Albuterol Sulfate [Ventolin] 2 puff INHALE QID PRN clonazePAM [KlonoPIN] 0.5 mg PO DAILY PRN 02/11/20 14:53 Glucose, Whole Blood Routine 02/11/20 16:00 0.9 % Sodium Chloride Flush [NS Flush] 3 ml IVFLUSH QSHIFT 02/11/20 19:51 Glucose, Whole Blood Routine 02/11/20 21:00 Amitriptyline HCl [Elavil] 25 mg PO BEDTIME Lurasidone HCl [Latuda] 60 mg PO BEDTIME Montelukast Sodium [Singulair] 10 mg PO BEDTIME Topiramate [Topamax] 100 mg PO BEDTIME 02/12/20 06:37 Basic Metabolic Panel DAILY@0600 Complete Blood Count Auto Diff DAILY@0500 02/12/20 06:39 Lactated Ringers [Lr] 500 ml IVCONT 500 mls/hr 02/12/20 09:00 buPROPion HCl XL [Wellbutrin XL] 300 mg PO DAILY Laboratory Last Values WBC 7.9 X10*3/uL (4.8-10.8) 02/12/20 06:37 RBC 4.09 X10*6/uL (4.20-5.50) L 02/12/20 06:37 Hgb 12.3 g/dl (12.0-16.0) 02/12/20 06:37 Hct 37.4 % (37-47) 02/12/20 06:37 MCV 91.4 fL (80-98) 02/12/20 06:37 MCH 30.1 pg (27.0-33.0) 02/12/20 06:37 MCHC 32.9 g/dl (31.0-35.0) 02/12/20 06:37 RDW 12.6 % (11.0-16.0) 02/12/20 06:37 Plt Count 250 X10*3/uL (160-400) 02/12/20 06:37 MPV 10.3 fL (9.4-12.3) 02/12/20 06:37 Immature Gran % (Auto) 0.3 % (0.0-0.4) 02/12/20 06:37 Neut % (Auto) 62.5 % (45-73) 02/12/20 06:37 Lymph % (Auto) 22.9 % (20-40) 02/12/20 06:37 [place] % (Auto) 13.1 % (2-11) H 02/12/20 06:37 Eos % (Auto) 0.4 % (0-4) 02/12/20 06:37 Baso % (Auto) 0.8 % (0-2) 02/12/20 06:37 Lymph # (Auto) 1.8 X10*3/uL (1.2-4.9) 02/12/20 06:37 [place] # (Auto) 1.0 X10*3/uL (0.1-1.2) 02/12/20 06:37 Eos # (Auto) 0.0 X10*3/uL (0.0-0.4) 02/12/20 06:37 Baso # (Auto) 0.1 X10*3/uL (0.0-0.2) 02/12/20 06:37 Abs Immat Gran (auto) 0.02 X10*3/uL (0.00-0.03) 02/12/20 06:37 Absolute Neuts (auto) 4.9 X10*3/uL (2.0-8.3) 02/12/20 06:37 Absolute Nucleated RBC 0.000 X10*3/uL (0.0-0.012) 02/12/20 06:37 Nucleated RBC % (auto) 0.0 /100WBC (0.0-0.2) 02/12/20 06:37 Sodium 139 mmol/L (135-145) 02/12/20 06:37 Potassium 4.2 mmol/l (3.3-5.1) 02/12/20 06:37 Chloride 109 mmol/L (96-108) H 02/12/20 06:37 Carbon Dioxide 21 mmol/L (22-29) L 02/12/20 06:37 Anion Gap 13 (-20) 02/12/20 06:37 BUN 11 mg/dL (9-16) 02/12/20 06:37 Creatinine 0.61 mg/dL (0.5-1.4) 02/12/20 06:37 Estim Creat Clear Calc 102.1 02/12/20 06:37 Estimated GFR > 60 02/12/20 06:37 POC Glucose 134 mg/dL (60-115) H 02/11/20 19:51 Random Glucose 79 mg/dL (60-115) 02/12/20 06:37 Calcium 8.2 mg/dL (8.4-10.2) L 02/12/20 06:37 COVID-19 (TIN) Negative (Negative) 02/11/20 05:53 COVID-19 Clin Com See Note 02/11/20 05:53 Blood Type A Negative 02/06/20 07:23 Antibody Screen NEGATIVE 02/06/20 07:23 Discharge Plan Discharge Anticipated Discharge Date/Time: 02/12/20 11:11 Patient Disposition: Home, Self-Care Referrals: Physician,Unknown [Primary Care Provider] - Discharge Medications: Continued ubrogepant 50 mg tablet 50 mg PO DIRECTED PRN (Reason: Migraine Headache) RF: 0 amitriptyline 25 mg tablet 25 mg PO BEDTIME RF: 0 lurasidone 60 mg tablet 60 mg PO BEDTIME RF: 0 dexlansoprazole 60 mg capsule,biphase delayed releas 60 mg PO BID RF: 0 loratadine 10 mg tablet 10 mg PO DAILY RF: 0 clonazepam 1 mg tablet 1 mg PO BEDTIME RF: 0 clonazepam 0.5 mg tablet 0.5 mg PO DAILY PRN (Reason: Anxiety) RF: 0 bupropion HCl 300 mg tablet extended release 24 hr 300 mg PO DAILY RF: 0 topiramate 50 mg tablet 100 mg PO BEDTIME RF: 0 montelukast 10 mg tablet 10 mg PO BEDTIME RF: 0 doxepin 25 mg capsule 25 mg PO BEDTIME RF: 0 glucagon (human recombinant) 1 mg recon soln 1 mg IM DIRECTED RF: 0 (DME) blood sugar diagnostic Strip See Rx Instructions ea Not Applicable TID Qty: 10 RF: 0 albuterol sulfate 90 mcg/actuation HFA aerosol inhaler 2 puff inhalation QID PRN (Reason: wheezing) RF: 0 (DME) lancets 33 gauge misc See Rx Instructions ea Not Applicable .MEDSUPPLY Qty: 100 RF: 0 acetaminophen 500 mg tablet 500 mg PO Q4-6H PRN (Reason: Pain) RF: 0 ondansetron HCl [Zofran] 4 mg tablet 4 mg PO Q6H PRN (Reason: nausea and vomiting) Qty: 30 RF: 0 polyethylene glycol 3350 [Miralax] 17 gram powder in packet 17 g PO DAILY Qty: 14 RF: 0 No Action phentermine 37.5 mg capsule 37.5 mg PO DAILY Qty: 30 RF: 0 Discharge Orders: Discharge Order (Routine); Ordered 02/12/20 Ordered By: Tobin Mullen Diet: other Activity on Discharge: No heavy lifting Discharge Date/Time: 02/12/20 08:58 Activity Restrictions/Additional Instructions: INSTRUCTIONS You are being discharged home on bariatric diet. Follow all instructions given to you by Dr Mullen and call with any questions. No lifting, sexual relations, tub baths or vigorous exercise, do not restart until told to do so by Dr Mullen. No alcohol, tobacco or caffeine products. ADMITTING DIAGNOSIS: overweight,GERD, hiatal hernia s/p gastric band and subsequent gastric banding DISCHARGE DIAGNOSIS: same, s/p removal of gastric band and accessories PAST SURGICAL HISTORY: open GBP, subsequent gastric band, lap yesi, appendectomy, panniculectomy, ventral hernia repair with mesh, rotatator cuff and wrist surgeries. PROCEDURE: upper endoscopy, removal of gastric band and components DISCHARGE SUMMARY: History of Present Illness: The patient is a 49 year-old woman with a BMI of 29.4 kg/m2 who has GERD, hiatla hernia, emesis s/p open gastric bypass subsequent gastric banding and multiple abdominal surgeries.. The patient had extensive work-up, and was electively scheduled for laparoscopic removal of gastric band and possible repair of hiatal herna. Risks and complications of the surgery were discussed with the patient in advance, particularly the possibility of , pulmonary embolism, anastomotic leak, bleeding, bowel injury, GERD, cardiac, renal or pulmonary complications. The patient understood all the risks and was in agreement with the surgical plan. Hospital Course: The patient underwent an uneventful laparoscopic removal of gastric band and acessories and extensive lysis of adhesion on the day of admission. Postoperatively, the patient was transferred to the surgical floor. The patient was on IV Acetaminophen and IV dilaudid for pain control. Patient was started on bariatric phase 1 diet POD #0. On postoperative day one, the patient was feeling well without nausea, vomiting, fevers, or tachycardia. The patient had some mild incisional pain. The abdomen was soft. On the morning of postoperative day one she continued ot tolerate the bariatirc diet. During the first day, the patient did fairly well, having some incisional pain, but able to ambulate adequately and to tolerate liquids well. Since the patient is doing well, we decided that the patient was ready to be discharged. The patient was given instructions to follow-up with me next week and to call my office for any fever over 101, persistent abdominal pain, nausea, vomiting, GERD, symptoms of DVT such as calf tenderness, or leg swelling, or pulmonary embolism such as chest pain or shortness of breath. The patient was also instructed to drink 40-60 ounces of liquids per day using the 1-ounce cups. The patient was given prescription for Tylenol for pain and Zofran prn for nausea. The patient was encouraged to ambulate and use the incentive spirometer. The patient was allowed to shower, but no baths, and encouraged to stay active at home. All of these instructions were given to the patient personally. All questions were answered and the patient understood all instructions, the instructions were also given to the patient in print. Visit Report Forms: Patient Portal Discharge page Care Plan Goals: adequate nutrition Health Concerns: s/p gastric bypass Plan of Treatment: see discharge instructions
== END 2020-02-12 08:58 | disposition home or self-care (01) | DRG 328 ==
LOC: HO.SSS 05:34 → HO.SSSA 05:36 → HO.S3 11:13
PROVIDERS: Physician Assistant; Admitting Provider Surgery; Visit Provider Surgery
PROC: 0DP64CZ Removal of Extraluminal Device from Stomach, Percutaneous Endoscopic Approach (ICD-10-PCS; principal; 2020-02-11 07:30)
DX: K95.09 Other complications of gastric band procedure (principal); F32.9 Major depressive disorder, single episode, unspecified; F41.9 Anxiety disorder, unspecified; J45.909 Unspecified asthma, uncomplicated; K21.00 Gastro-esophageal reflux disease with esophagitis, without bleeding; Z20.828 Contact with and (suspected) exposure to other viral communicable diseases; K66.0 Peritoneal adhesions (postprocedural) (postinfection); Z79.899 Other long term (current) drug therapy
CPT/HCPCS: 36415; 80048; 82947; 85025; 86850; 86900; 86901; 87635; 88300; 99024; J0131; J0690; J1100; J1170; J2250; J2405; J3010

== ENCOUNTER → 2020-02-11 06:03 | Day surgery (SDC) | payer MEDICARE, SELFPAY | PROVIDERS: PCP Internal Medicine; Visit Provider Surgery | DX: Z13.89 Encounter for screening for other disorder (principal) ==

== ENCOUNTER → 2020-02-19 07:35 | Outpatient (BNVA) | payer MEDICARE, SELFPAY | PROVIDERS: PCP Internal Medicine; Visit Provider Surgery | DX: E66.3 Overweight (principal) | CPT/HCPCS: 99212 ==

== ENCOUNTER → 2020-03-04 09:53 | Outpatient (BNVA) | payer MEDICARE, SELFPAY | PROVIDERS: PCP Internal Medicine; Visit Provider Dietitian, Registered | DX: Z76.89 Persons encountering health services in other specified circumstances (principal) ==

== ENCOUNTER 2020-03-08 17:01 | Emergency (ER) | payer MEDICARE, SELFPAY ==
[2020-03-08 19:11] VITALS: BP 114/74; PULSE 79; RESP 18; TEMP 36.8; O2SAT 97
--- NOTE | 2020-03-08 19:11 | CT_ITS ---
EXAMINATION: CT ABDOMEN AND PELVIS WITH CONTRAST CLINICAL INFORMATION: Pain at lap band site. COMPARISON: CT abdomen/pelvis dated 02/06/2020. TECHNIQUE: Multidetector volumetric images were obtained from the superior aspect of the liver through the pubic symphysis following administration 85 mL of Omnipaque 350 intravenous contrast. Sagittal and coronal reformatted images were obtained on the technologist's workstation. Oral contrast: No This CT examination was performed using dose optimization techniques as appropriate, variously including the following: *Automated exposure control *Adjustment of mA and/or kV according to patient size (this includes techniques or standardized protocols for targeted exams where dose is matched to indication/reason for exam; i.e. extremities or head) *Use of iterative reconstruction technique DLP: 630 mGy-cm FINDINGS: LUNG BASES: The visualized lung bases are unremarkable. LIVER, GALLBLADDER, AND BILIARY TREE: The liver is normal in size, shape, and attenuation. No focal hepatic lesion or biliary ductal dilatation is present. Status post cholecystectomy. PANCREAS: Unremarkable SPLEEN: Unremarkable ADRENAL GLANDS: Unremarkable KIDNEYS AND URETERS: The kidneys are normal in size, shape, and attenuation. No hydronephrosis, hydroureter, or calculi seen. No perinephric stranding. BLADDER: Unremarkable GASTROINTESTINAL TRACT: Postsurgical changes consistent with a Asa-en-Y gastric bypass are redemonstrated. The previously seen gastric band has been removed. Redemonstration of a wktug-[id number] sliding hiatal hernia, unchanged. Redemonstration of a left upper abdominal jejunojejunal anastomosis. No evidence of leak or obstruction. No bowel wall thickening or associated inflammatory change. No small or large bowel obstruction. Unremarkable appendix. PERITONEAL CAVITY: No intra-abdominal free air or free fluid. No intra-abdominal mass or organized fluid collection/abscess. ABDOMINAL WALL: Postsurgical changes consistent with the anterior abdominal wall hernia repair are redemonstrated. No new abdominal wall hernia. Interval removal of the previously seen lap band port along the right anterior abdominal wall. In the region of the previously seen port there is focal stranding which measures 1.3 x 3.2 x 1.9 cm (AP x ML x CC). Findings may represent postoperative stranding. No peripherally enhancing collection to suggest abscess formation. No significant adjacent subcutaneous fat stranding. LYMPH NODES: Normal VASCULAR: No abdominal aortic dilatation or dissection. Scattered atherosclerotic calcifications. Unremarkable IVC. PELVIC VISCERA: The uterus and adnexa are unremarkable. OSSEOUS STRUCTURES: No new lytic or blastic osseous lesion. Anterolisthesis of L5 on S1 with posterior stabilization hardware, unchanged. CT/CT abdomen pelvis w con IMPRESSION: 1. Interval removal of the lap band. Focal stranding in the region of the anterior abdominal wall port without evidence of abscess formation or infectious/inflammatory change. Anterior abdominal wall postsurgical changes consistent with prior hernia repair. No recurrent abdominal wall hernia. 2. Asa-en-Y gastric bypass and associated sliding hiatal hernia, unchanged. No small or large bowel obstruction. Unremarkable appendix. 3. No new intra-abdominal mass, lymphadenopathy, or ascites.
--- NOTE | 2020-03-08 19:11 | CT_ITS ---
EXAMINATION: CT ANGIOGRAM OF THE CHEST WITH AND WITHOUT CONTRAST (CT PULMONARY ANGIOGRAM FOR PE) CLINICAL INFORMATION: Post surgery. Dyspnea. Evaluate for a pulmonary embolism. COMPARISON: Chest radiograph dated 02/06/2020. TECHNIQUE: Prior to contrast administration, noncontrast localization images were obtained. Subsequently, multidetector volumetric imaging was performed from the thoracic inlet to below the diaphragms following the administration of 85 mL Omnipaque 350 intravenous contrast. No contrast reaction reported Sagittal, coronal, and MIP oblique sagittal reformatted images were obtained on the CT workstation, uploaded to PACS, and reviewed. This CT examination was performed using dose optimization techniques as appropriate, variously including the following: *Automated exposure control *Adjustment of mA and/or kV according to patient size (this includes techniques or standardized protocols for targeted exams where dose is matched to indication/reason for exam; i.e. extremities or head) *Use of iterative reconstruction technique Total exam dose-length product 205 mGy-cm FINDINGS: QUALITY OF STUDY/CONTRAST BOLUS: Satisfactory PULMONARY ARTERIES: No central or segmental pulmonary emboli. THORACIC AORTA: No aneurysm or dissection. LUNG: There is a noncalcified 0.3 cm nodule medially within the right middle lobe (axial image [id number]). No additional pulmonary nodule, mass, or airspace consolidation. PLEURA: No pleural effusion or pneumothorax. MEDIASTINUM: Normal heart size. No pericardial effusion. No hilar or mediastinal lymphadenopathy. No evidence of septal bowing or right heart strain. CHEST WALL/AXILLA: No axillary or internal mammary lymphadenopathy. OSSEOUS STRUCTURES: No acute or suspicious osseous abnormality. UPPER ABDOMEN: Partially visualized Asa-en-Y gastric bypass with an associated hiatal hernia. Findings better evaluated on the concurrent CT abdomen/pelvis. No reflux of contrast into the hepatic veins to suggest elevated right heart pressures. CT/CT angio chest PE protocol IMPRESSION: 1. No central or segmental pulmonary embolism. 2. Right middle lobe 0.3 cm noncalcified pulmonary nodule. According to the updated 2017 Fleischner Society recommendations, the advised followup imaging for solid nodules < 6 mm is: LOW RISK PATIENT: No routine followup. HIGH RISK PATIENT: Optional CT at 12 months. 3. No additional pulmonary nodule, mass, or airspace consolidation. 4. Partially visualized Asa-en-Y gastric bypass with an associated hiatal hernia, better evaluated on the concurrent CT abdomen/pelvis. VTE: negative
[2020-03-08 19:37] VITALS: BP 105/67; PULSE 72; RESP 15; TEMP 36.6; O2SAT 96; BMI 28.9
[2020-03-08 20:03] LABS: Basophils Absolute Auto 0.1 X10*3/uL (0.0-0.2); Basophils Percent Auto 1.1 % (0-2); Eosinophils Absolute Auto 0.3 X10*3/uL (0.0-0.4); Eosinophils Percent Auto 5.6 % (0-4); Hematocrit 38.6 % (37-47); Hemoglobin 12.6 g/dl (12.0-16.0); Imm Gran Abs Auto 0.02 X10*3/uL (0.00-0.03); Imm Gran Pct Auto 0.3 % (0.0-0.4); Lymphocytes Absolute Auto 2.3 X10*3/uL (1.2-4.9); Lymphocytes Percent Auto 37.7 % (20-40); Mean Corpuscular HGB Conc 32.6 g/dl (31.0-35.0); Mean Corpuscular Hemoglobin 30.4 pg (27.0-33.0); Mean Platelet Volume 10.1 fL (9.4-12.3); Monocytes Absolute Auto 0.6 X10*3/uL (0.1-1.2); Neutrophils Absolute Auto 2.8 X10*3/uL (2.0-8.3); Neutrophils Percent Auto 45.3 % (45-73); Platelet Count 256 X10*3/uL (160-400); Red Blood Count 4.15 X10*6/uL (4.20-5.50); Red Cell Distribution Width 13.2 % (11.0-16.0); White Blood Count 6.1 X10*3/uL (4.8-10.8)
[2020-03-08 20:04] LABS: MANUAL DIFF FLAG NO
--- NOTE | 2020-03-08 20:14 | ED.ABDPAIN ---
HPI - Abdominal Pain General Chief Complaint: Abdominal Pain Stated Complaint: Surgical site pain Time Seen by Provider: 03/08/20 17:55 Source: patient and old records reviewed Mode of arrival: ambulatory Limitations: no limitations History of Present Illness HPI narrative: recent laparasocopic removal of lap band on 02/10 had NHI as well did okay up until the last 4 to 5 days c/o pulling intense pain in upper abdomen worse with movements and feeling short of breath - pleuritic in nature R side, sent to ED by bariatric service for labs, CT scan of abdomen and PE study MD elicited complaint: abdominal pain and other (short of breath) Pertinent past history: other (recent procedure 02/10) Onset (ago): day(s) (5) Pain Consistency: intermittent Location: chest, epigastric, periumbilical and RUQ Severity: moderate Quality: stabbing and fullness Radiation: RUQ Migration to: no migration Exacerbating factors: movement Relieving factors: nothing Context: recent surgery/procedure Associated symptoms: denies other symptoms Related Data Home Medications Medication Instructions Recorded Confirmed acetaminophen 500 mg tablet 500 mg PO Q4-6H PRN 01/07/20 02/06/20 albuterol sulfate 90 mcg/actuation 2 puff INHALATION QID PRN 01/07/20 02/06/20 aerosol inhaler amitriptyline 25 mg tablet 25 mg PO BEDTIME 01/07/20 02/06/20 blood sugar diagnostic #10 ea 01/07/20 bupropion HCl 300 mg 24 hr tablet, 300 mg PO DAILY 01/07/20 02/06/20 extended release clonazepam 0.5 mg tablet 0.5 mg PO DAILY PRN 01/07/20 02/06/20 clonazepam 1 mg tablet 1 mg PO BEDTIME 01/07/20 02/06/20 dexlansoprazole 60 mg 60 mg PO BID 01/07/20 02/11/20 capsule,biphase delayed release doxepin 25 mg capsule 25 mg PO BEDTIME 01/07/20 02/06/20 glucagon (human recombinant) 1 mg 1 mg IM DIRECTED 01/07/20 02/06/20 solution for injection lancets 33 gauge #100 ea 01/07/20 loratadine 10 mg tablet 10 mg PO DAILY 01/07/20 02/06/20 lurasidone 60 mg tablet 60 mg PO BEDTIME 01/07/20 02/06/20 montelukast 10 mg tablet 10 mg PO BEDTIME 01/07/20 02/06/20 topiramate 50 mg tablet 100 mg PO BEDTIME 01/07/20 02/06/20 ubrogepant 50 mg tablet 50 mg PO DIRECTED PRN 01/07/20 02/06/20 Previous Rx's Medication Instructions Recorded ondansetron HCl 4 mg tablet 4 mg PO Q6H PRN #30 tab 02/05/20 polyethylene glycol 3350 17 gram 17 g PO DAILY #14 ea 02/06/20 oral powder packet phentermine 37.5 mg capsule 37.5 mg PO DAILY #30 cap 02/19/20 oxycodone 5 mg PO TID PRN #10 tab 03/08/20 Allergies Allergy/AdvReac Type Severity Reaction Status Date / Time No Known Allergies Allergy Unknown Verified 03/08/20 19:46 Review of Systems Review of Systems Constitutional : No Weight loss, No Fever, No Chills ENT/Mouth : No sore throat, No Rhinorrhea Eyes: No Swelling, No Redness Cardiovascular : pos Chest Pain, pos SOB, NoEdema Respiratory : No Cough, No Sputum, No Wheezing Gastrointestinal : no Nausea, no Vomiting, no Diarrhea, positive abdominal Pain, No Hematochezia, No Melena Genitourinary : No Dysuria, No Urinary Frequency, No Hematuria, No Urgency Musculoskeletal : No joint pain, No Myalgias, No Joint Swelling Skin : No Skin Lesions, No rash Neuro : No Weakness, No Numbness, No Dizziness, No Headache Psych : No Anxiety/Panic, No Depression Heme/Lymph: No Bruising, No Lymphadenopathy Endocrine : No Polyuria, No Polydipsia All other systems reviewed and are negative. Physical Exam Vital Signs: Vital Signs: Last Vital Signs Temp 97.9 F 03/08/20 21:31 Pulse 66 03/08/20 21:31 Resp 18 03/08/20 21:31 BP 108/66 03/08/20 21:31 Pulse Ox 97 03/08/20 21:31 Body Mass Index 28.9 Appearance: Alert. Oriented X3. No acute distress. Eyes: Pupils equal, round and reactive to light. ENT: Pharynx normal. Neck: Normal inspection. Neck supple. CVS: Normal heart rate and rhythm. Pulses normal. Respiratory: No respiratory distress. Breath sounds normal. Abdomen: Soft and ttp in R upper abdomen incisions are clean / dry / intact no signs of infection and wound margins are approximated, no fluctuance areas felt, no rebound or guarding. Skin: Skin warm and dry. Normal skin color. Normal skin turgor. Extremities: No lower extremity edema. No calf ttp Neuro: Oriented X 3. No motor deficit. No sensory deficit. Course Course Course Narrative: cleared by Dr. Graciela carmichael for DC MDM - Abdominal Pain MDM Narrative Medical decision making narrative: 49 yo female with recent laparascopic removal of lap band on 02/10 here with 2 complaints pulling and pain with movement in abdomen - no signs of outward infection will obtain labs and CT scan to assess surgical areas, also c/o shortness of breath and pain on R side that is pleuritic, PE protocol ordered, IVF and IV pain medications ordered, she is not toxic. Lab Data Result diagrams: 03/08/20 19:52 03/08/20 19:52 Labs: Lab Results 03/08/20 03/08/20 03/08/20 Range/Units 19:52 19:52 19:52 WBC 6.1 (4.8-10.8) X10*3/uL RBC 4.15 L (4.20-5.50) X10*6/uL Hgb 12.6 (12.0-16.0) g/dl Hct 38.6 (37-47) % MCV 93.0 (80-98) fL MCH 30.4 (27.0-33.0) pg MCHC 32.6 (31.0-35.0) g/dl RDW 13.2 (11.0-16.0) % Plt Count 256 (160-400) X10*3/uL MPV 10.1 (9.4-12.3) fL Immature Gran % (Auto) 0.3 (0.0-0.4) % Neut % (Auto) 45.3 (45-73) % Lymph % (Auto) 37.7 (20-40) % [place] % (Auto) 10.0 (2-11) % Eos % (Auto) 5.6 H (0-4) % Baso % (Auto) 1.1 (0-2) % Lymph # (Auto) 2.3 (1.2-4.9) X10*3/uL [place] # (Auto) 0.6 (0.1-1.2) X10*3/uL Eos # (Auto) 0.3 (0.0-0.4) X10*3/uL Baso # (Auto) 0.1 (0.0-0.2) X10*3/uL Abs Immat Gran (auto) 0.02 (0.00-0.03) X10*3/uL Absolute Neuts (auto) 2.8 (2.0-8.3) X10*3/uL Absolute Nucleated RBC 0.000 (0.0-0.012) X10*3/uL Nucleated RBC % (auto) 0.0 (0.0-0.2) /100WBC Hold Blue Top SEE NOTE Sodium 140 (135-145) mmol/L Potassium 4.4 (3.3-5.1) mmol/l Chloride 108 (96-108) mmol/L Carbon Dioxide 27 (22-29) mmol/L Anion Gap 9 L (12-20) BUN 17 H D (9-16) mg/dL Creatinine 0.67 (0.5-1.4) mg/dL Estim Creat Clear Calc 92.1 Estimated GFR > 60 Random Glucose 87 (60-115) mg/dL Calcium 8.4 (8.4-10.2) mg/dL Magnesium (1.6-2.6) mg/dL Total Bilirubin (0.0-1.0) mg/dL Direct Bilirubin (0.0-0.5) mg/dL AST (5-31) U/L ALT (0-31) U/L Alkaline Phosphatase (39-117) U/L Troponin I High Sens (<3.5-17.0) ng/L Total Protein (6.5-8.0) g/dL Albumin (3.5-5.0) g/dL Lipase (8-78) U/L COVID-19 (TIN) (Negative) COVID-19 Clin Com 03/08/20 03/08/20 03/08/20 Range/Units 19:52 19:52 19:52 WBC (4.8-10.8) X10*3/uL RBC (4.20-5.50) X10*6/uL Hgb (12.0-16.0) g/dl Hct (37-47) % MCV (80-98) fL MCH (27.0-33.0) pg MCHC (31.0-35.0) g/dl RDW (11.0-16.0) % Plt Count (160-400) X10*3/uL MPV (9.4-12.3) fL Immature Gran % (Auto) (0.0-0.4) % Neut % (Auto) (45-73) % Lymph % (Auto) (20-40) % [place] % (Auto) (2-11) % Eos % (Auto) (0-4) % Baso % (Auto) (0-2) % Lymph # (Auto) (1.2-4.9) X10*3/uL [place] # (Auto) (0.1-1.2) X10*3/uL Eos # (Auto) (0.0-0.4) X10*3/uL Baso # (Auto) (0.0-0.2) X10*3/uL Abs Immat Gran (auto) (0.00-0.03) X10*3/uL Absolute Neuts (auto) (2.0-8.3) X10*3/uL Absolute Nucleated RBC (0.0-0.012) X10*3/uL Nucleated RBC % (auto) (0.0-0.2) /100WBC Hold Blue Top Sodium (135-145) mmol/L Potassium (3.3-5.1) mmol/l Chloride (96-108) mmol/L Carbon Dioxide (22-29) mmol/L Anion Gap (12-20) BUN (9-16) mg/dL Creatinine (0.5-1.4) mg/dL Estim Creat Clear Calc Estimated GFR Random Glucose (60-115) mg/dL Calcium (8.4-10.2) mg/dL Magnesium 1.9 (1.6-2.6) mg/dL Total Bilirubin 0.2 (0.0-1.0) mg/dL Direct Bilirubin < 0.2 (0.0-0.5) mg/dL AST 48 H D (5-31) U/L ALT 71 H (0-31) U/L Alkaline Phosphatase 85 (39-117) U/L Troponin I High Sens < 3.5 (<3.5-17.0) ng/L Total Protein 6.3 L (6.5-8.0) g/dL Albumin 4.0 (3.5-5.0) g/dL Lipase 64 (8-78) U/L COVID-19 (TIN) Negative (Negative) COVID-19 Clin Com See Note ECG Data Attestation: I personally reviewed and interpreted this ECG as follows: ECG interpretation date: 03/08/20 ECG interpretation time: 21:39 Interpretation: Rate: 63 Rhythm: NSR [place]: normal Normal P waves. Normal MARIELENA. decreased QRS complex. ST T wave : normal no KACI qTC: normal prior studies: no acute ischemia The study has been interpreted contemporaneously by me. . Discharge Plan Discharge Clinical Impression: Abdominal pain Patient Disposition: Home, Self-Care Instructions: Abdominal Pain (ED) Additional Instructions: return to ED for any worsening symptoms or concerns please follow up with bariatric surgery Prescriptions: New oxycodone 5 mg tablet 5 mg PO TID PRN (Reason: pain) Qty: 10 RF: 0 No Action phentermine 37.5 mg capsule 37.5 mg PO DAILY Qty: 30 RF: 0 ubrogepant 50 mg tablet 50 mg PO DIRECTED PRN (Reason: Migraine Headache) RF: 0 amitriptyline 25 mg tablet 25 mg PO BEDTIME RF: 0 lurasidone 60 mg tablet 60 mg PO BEDTIME RF: 0 dexlansoprazole 60 mg capsule,biphase delayed releas 60 mg PO BID RF: 0 loratadine 10 mg tablet 10 mg PO DAILY RF: 0 clonazepam 1 mg tablet 1 mg PO BEDTIME RF: 0 clonazepam 0.5 mg tablet 0.5 mg PO DAILY PRN (Reason: Anxiety) RF: 0 bupropion HCl 300 mg tablet extended release 24 hr 300 mg PO DAILY RF: 0 topiramate 50 mg tablet 100 mg PO BEDTIME RF: 0 montelukast 10 mg tablet 10 mg PO BEDTIME RF: 0 doxepin 25 mg capsule 25 mg PO BEDTIME RF: 0 glucagon (human recombinant) 1 mg recon soln 1 mg IM DIRECTED RF: 0 (DME) blood sugar diagnostic Strip See Rx Instructions ea Not Applicable TID Qty: 10 RF: 0 albuterol sulfate 90 mcg/actuation HFA aerosol inhaler 2 puff inhalation QID PRN (Reason: wheezing) RF: 0 (DME) lancets 33 gauge misc See Rx Instructions ea Not Applicable .MEDSUPPLY Qty: 100 RF: 0 acetaminophen 500 mg tablet 500 mg PO Q4-6H PRN (Reason: Pain) RF: 0 ondansetron HCl [Zofran] 4 mg tablet 4 mg PO Q6H PRN (Reason: nausea and vomiting) Qty: 30 RF: 0 polyethylene glycol 3350 [Miralax] 17 gram powder in packet 17 g PO DAILY Qty: 14 RF: 0 Stand Alone Forms: Work/School Release FORMERLY [facility] Past Medical History Attestation statement: The following information was validated with the patient. Source: old records reviewed Medical History Anxiety Asthma Depression Gastric band slippage GERD (gastroesophageal reflux disease) Hypoglycemia Major depressive disorder, recurrent severe without psychotic features Malabsorption due to intolerance, not elsewhere classified Migraines Seasonal allergies Surgical History H/O sinus surgery History of esophagogastroduodenoscopy (EGD) History of removal of laparoscopic gastric banding device History of Asa-en-Y gastric bypass Hx laparoscopic cholecystectomy Hx of hernia repair Hx of laparoscopic gastric banding Overweight (BMI 25.0-29.9) Previous back surgery S/P rotator cuff surgery S/P wrist surgery Status post gastric banding Family History Family History Father DM (diabetes mellitus) Heart disease Mother DM (diabetes mellitus) Heart disease Pulmonary hypertension Brother DM (diabetes mellitus) Heart disease Kidney disease Brother HTN (hypertension) DM (diabetes mellitus) High cholesterol Social History Social History Alcohol intake: current Smoking Status: Never smoker Second Hand Smoke Exposure: No Advance Directives: No Advance Directives Information Provided: No service: No Current occupational status: disabled
[2020-03-08 20:23] LABS: COVID-19 Test Negative (Negative); IDNOW Serial# 9DD0AD1C
[2020-03-08 20:25] LABS: Alanine Aminotransferase 71 U/L (0-31); Alkaline Phosphatase 85 U/L (39-117); Aspartate Amino Transferase 48 U/L (5-31); Bilirubin Direct < 0.2 mg/dL (0.0-0.5); Bilirubin Total 0.2 mg/dL (0.0-1.0); Lipase 64 U/L (8-78); Magnesium 1.9 mg/dL (1.6-2.6); Total Protein 6.3 g/dL (6.5-8.0)
[2020-03-08 20:27] LABS: Anion Gap 9 (12-20); Blood Urea Nitrogen 17 mg/dL (9-16); Calcium 8.4 mg/dL (8.4-10.2); Carbon Dioxide 27 mmol/L (22-29); Chloride 108 mmol/L (96-108); Creatinine Clr Calc Pharmacy 92.1; Estimated Glomerular Filt Rate > 60; Glucose Random 87 mg/dL (60-115); Potassium 4.4 mmol/l (3.3-5.1); Sodium 140 mmol/L (135-145)
--- NOTE | 2020-03-08 20:27 | ECG_ITS ---
Test Reason : DYSPNEA Blood Pressure : / mmHG Vent. Rate : 063 BPM Atrial Rate : 063 BPM P-R Int : 196 ms QRS Dur : 084 ms QT Int : 414 ms P-R-T Axes : 050 000 023 degrees QTc Int : 423 ms Normal sinus rhythm Low voltage QRS Borderline ECG When compared with ECG of 06-FEB-2020 10:57, No significant change was found Referred By: Marielena Whiting Electronically Signed By:Sanchez Casanova
[2020-03-08 20:31] LABS: Troponin-I High Sensitivity < 3.5 ng/L (<3.5-17.0)
[2020-03-08] MEDS: iohexoL 350 MG/ML 100 ML INFUS..BTL IV (20:50)
[2020-03-08 21:09] VITALS: RESP 18
[2020-03-08] MEDS: HYDROmorphone HCl 0.5 MG/0.5 ML SYRINGE IVPUSH (21:09)
[2020-03-08] MEDS: ondansetron HCL 4 MG/2 ML VIAL IVPUSH (21:09)
[2020-03-08] MEDS: 0.9 % Sodium Chloride 1,000 ML 999 ML IVCONT (21:10)
[2020-03-08 21:31] VITALS: BP 108/66; PULSE 66; RESP 18; TEMP 36.6; O2SAT 97
[2020-03-08 22:00] VITALS: BP 100/57; PULSE 61; RESP 18; O2SAT 99
== END 2020-03-08 22:23 | disposition home or self-care (01) ==
PROVIDERS: Emergency Provider Emergency Medicine
DX: R10.11 Right upper quadrant pain (principal); Z79.899 Other long term (current) drug therapy; Z20.828 Contact with and (suspected) exposure to other viral communicable diseases; Z98.84 Bariatric surgery status
CPT/HCPCS: 36415; 71275; 74177; 80048; 80076; 83690; 83735; 84484; 85025; 87635; 93005; 96361; 96374; 96375; 99284; J1170; J2405; Q9967

== ENCOUNTER → 2020-03-26 08:08 | Outpatient (BNVA) | payer MEDICARE, SELFPAY | PROVIDERS: Visit Provider Dietitian, Registered ==

== ENCOUNTER → 2020-04-07 07:44 | Outpatient (BNVA) | payer MEDICARE, SELFPAY | PROVIDERS: Visit Provider Dietitian, Registered ==

== ENCOUNTER 2020-04-23 10:30 | Outpatient (RCR) | payer MEDICARE, SELFPAY ==
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
--- NOTE | 2020-02-19 15:47 | HO.TMSDAILY2 ---
TMS Daily Progress Note Daily TMS Progress Note Date of Service: 02/19/20 Week #: 1 Treatment #(04-04): 1 PHQ-9 Pre-Treatment (-): 24 PHQ-9 Most Recent (04-01): 24 LAURA-7 Pre-Treatment (0-21): 21 LAURA-7 Most Recent (0-21): 21 CGI-I Most Recent: 4 = No Change Reviewed: TMS Tech Note Reviewed Verification: I have reviewed the TMS Pharmacy Technology Instructor Note and agree with the contents. The patient remains a candidate to continue TMS treatment per protocol. Tolerated mapping well. Needed Rt sided mapping bc of Rt wrist surgery then treated Left DLPFC
--- NOTE | 2020-02-24 17:53 | P.PNPS_ITS ---
TMS Daily Progress Note Daily TMS Progress Note Date of Service: 02/25/20 Week #: 1 Treatment #(30): 2 PHQ-9 Pre-Treatment (-): 24 PHQ-9 Most Recent (04-01): 24 LAURA-7 Pre-Treatment (0-21): 21 LAURA-7 Most Recent (0-21): 21 CGI-I Most Recent: 4 = No Change Reviewed: TMS Tech Note Reviewed Verification: I have reviewed the TMS Sales Service Assistant Note and agree with the contents. The patient remains a candidate to continue TMS treatment per protocol.
--- NOTE | 2020-02-25 22:56 | HO.TMSDAILY2 ---
TMS Daily Progress Note Daily TMS Progress Note Date of Service: 02/25/20 Week #: 1 Treatment #(30): 3 PHQ-9 Pre-Treatment (-): 24 PHQ-9 Most Recent (04-01): 24 LAURA-7 Pre-Treatment (0-21): 21 LAURA-7 Most Recent (0-21): 21 CGI-I Most Recent: 4 = No Change Reviewed: TMS Tech Note Reviewed Verification: I have reviewed the TMS Job Compositor Note and agree with the contents. The patient remains a candidate to continue TMS treatment per protocol.
--- NOTE | 2020-02-29 00:12 | HO.TMSDAILY2 ---
TMS Daily Progress Note Daily TMS Progress Note Date of Service: 02/26/20 Week #: 1 Treatment #(-30): 4 PHQ-9 Pre-Treatment (1-): 24 PHQ-9 Most Recent (27): 24 LAURA-7 Pre-Treatment (0-21): 21 LAURA-7 Most Recent (0-21): 21 CGI-I Most Recent: 4 = No Change Reviewed: TMS Tech Note Reviewed Verification: I have reviewed the TMS Nailing Machine Operator Automatic Note and agree with the contents. The patient remains a candidate to continue TMS treatment per protocol. entry for 02/26/20
--- NOTE | 2020-03-02 18:05 | HO.TMSDAILY2 ---
TMS Daily Progress Note Daily TMS Progress Note Date of Service: 03/02/20 Week #: 1 Treatment #(30): 5 PHQ-9 Pre-Treatment (-): 24 PHQ-9 Most Recent (04-01): 24 LAURA-7 Pre-Treatment (0-21): 21 LAURA-7 Most Recent (0-21): 21 CGI-I Most Recent: 4 = No Change Reviewed: TMS Tech Note Reviewed Verification: I have reviewed the TMS Inspector Golf Ball Note and agree with the contents. The patient remains a candidate to continue TMS treatment per protocol.
--- NOTE | 2020-03-03 23:12 | P.PNPS_ITS ---
TMS Daily Progress Note Daily TMS Progress Note Date of Service: 03/03/20 Week #: 2 Treatment #(04-04): 6 PHQ-9 Pre-Treatment (1-): 24 PHQ-9 Most Recent (04-01): 24 LAURA-7 Pre-Treatment (0-21): 21 LAURA-7 Most Recent (0-21): 21 CGI-I Most Recent: 4 = No Change Reviewed: TMS Tech Note Reviewed Verification: I have reviewed the TMS Rack Room Worker Note and agree with the contents. The patient remains a candidate to continue TMS treatment per protocol.
--- NOTE | 2020-03-04 23:08 | HO.TMSDAILY2 ---
TMS Daily Progress Note Daily TMS Progress Note Date of Service: 03/04/20 Week #: 2 Treatment #(-): 7 PHQ-9 Pre-Treatment (-): 24 PHQ-9 Most Recent (04-01): 24 LAURA-7 Pre-Treatment (0-21): 21 LAURA-7 Most Recent (0-21): 21 CGI-I Most Recent: 4 = No Change Reviewed: TMS Tech Note Reviewed Verification: I have reviewed the TMS Cryptographic Center Specialist Note and agree with the contents. The patient remains a candidate to continue TMS treatment per protocol.
--- NOTE | 2020-03-05 23:49 | P.PNPS_ITS ---
TMS Daily Progress Note Daily TMS Progress Note Date of Service: 03/09/20 Week #: 2 Treatment #(04-04): 8 PHQ-9 Pre-Treatment (-): 24 PHQ-9 Most Recent (04-01): 24 LAURA-7 Pre-Treatment (0-21): 21 LAURA-7 Most Recent (0-21): 21 CGI-I Most Recent: 4 = No Change Reviewed: TMS Tech Note Reviewed Verification: I have reviewed the TMS Senior Product Development Engineer Note and agree with the contents. The patient remains a candidate to continue TMS treatment per protocol.
--- NOTE | 2020-03-09 23:49 | HO.TMSDAILY2 ---
TMS Daily Progress Note Daily TMS Progress Note Date of Service: 03/09/20 Treatment #(04-04): 8 PHQ-9 Pre-Treatment (-): 24 PHQ-9 Most Recent (04-01): 24 LAURA-7 Pre-Treatment (0-21): 21 LAURA-7 Most Recent (0-21): 21 CGI-I Most Recent: 4 = No Change Verification: I have reviewed the TMS Betting Clerks Note and agree with the contents. The patient remains a candidate to continue TMS treatment per protocol.
--- NOTE | 2020-03-11 23:24 | P.PNPS_ITS ---
TMS Daily Progress Note Daily TMS Progress Note Date of Service: 03/11/20 Week #: 2 Treatment #(04-04): 9 PHQ-9 Pre-Treatment (04-01): 24 PHQ-9 Most Recent (04-01): 18 CGI-I Most Recent: 4 = No Change Reviewed: TMS Tech Note Reviewed Verification: I have reviewed the TMS Wet Milling Wheel Operator Note and agree with the contents. The patient remains a candidate to continue TMS treatment per protocol.
--- NOTE | 2020-03-12 17:20 | HO.TMSDAILY2 ---
TMS Daily Progress Note Daily TMS Progress Note Date of Service: 03/12/20 Week #: 2 Treatment #(04-04): 10 PHQ-9 Pre-Treatment (04-01): 24 PHQ-9 Most Recent (04-01): 18 CGI-I Most Recent: 4 = No Change Reviewed: TMS Tech Note Reviewed Verification: I have reviewed the TMS Assistant Professor Of Physics Note and agree with the contents. The patient remains a candidate to continue TMS treatment per protocol.
--- NOTE | 2020-03-12 17:25 | HO.TMSDAILY2 ---
TMS Daily Progress Note Daily TMS Progress Note Date of Service: 03/12/20 Week #: 2 Treatment #(04-04): 10 PHQ-9 Pre-Treatment (04-01): 24 PHQ-9 Most Recent (04-01): 18 CGI-I Most Recent: 4 = No Change Reviewed: TMS Tech Note Reviewed Verification: I have reviewed the TMS Documentation Liaison Note and agree with the contents. The patient remains a candidate to continue TMS treatment per protocol.
--- NOTE | 2020-03-16 22:16 | HO.TMSDAILY2 ---
TMS Daily Progress Note Daily TMS Progress Note Date of Service: 03/16/20 Week #: 3 Treatment #(04-04): 12 PHQ-9 Pre-Treatment (04-01): 24 PHQ-9 Most Recent (04-01): 18 CGI-I Most Recent: 4 = No Change Reviewed: TMS Tech Note Reviewed Verification: I have reviewed the TMS Social Worker Palliative Care Note and agree with the contents. The patient remains a candidate to continue TMS treatment per protocol.
--- NOTE | 2020-03-17 22:56 | HO.TMSDAILY2 ---
TMS Daily Progress Note Daily TMS Progress Note Date of Service: 03/17/20 Week #: 3 Treatment #(04-04): 13 PHQ-9 Pre-Treatment (04-01): 24 PHQ-9 Most Recent (04-01): 18 CGI-I Most Recent: 4 = No Change Reviewed: TMS Tech Note Reviewed Verification: I have reviewed the TMS Policy Services Representative Note and agree with the contents. The patient remains a candidate to continue TMS treatment per protocol.
--- NOTE | 2020-03-18 09:45 | HO.PSYCHPN ---
Subjective Subjective Date of Service: 03/18/20 Reason For Visit: Depression Medications Allergies Allergies Allergy/AdvReac Type Severity Reaction Status Date / Time No Known Allergies Allergy Unknown Verified 03/08/20 19:46 Assessment & Plan Greater than 50% of the session was spent on counseling and/or coordination of care
--- NOTE | 2020-03-18 22:58 | HO.TMSDAILY2 ---
TMS Daily Progress Note Daily TMS Progress Note Date of Service: 03/18/20 Week #: 3 Treatment #(04-04): 14 PHQ-9 Pre-Treatment (04-01): 24 PHQ-9 Most Recent (04-01): 18 CGI-I Most Recent: 4 = No Change Reviewed: TMS Tech Note Reviewed Verification: I have reviewed the TMS Employee Relations Assistant Note and agree with the contents. The patient remains a candidate to continue TMS treatment per protocol.
--- NOTE | 2020-03-23 22:08 | HO.TMSDAILY2 ---
TMS Daily Progress Note Daily TMS Progress Note Date of Service: 03/20/20 Week #: 4 Treatment #(04-04): 16 PHQ-9 Pre-Treatment (04-01): 24 PHQ-9 Most Recent (04-01): 18 CGI-I Most Recent: 4 = No Change Reviewed: TMS Tech Note Reviewed Verification: I have reviewed the TMS Assistant Women'S Soccer Coach Note and agree with the contents. The patient remains a candidate to continue TMS treatment per protocol.
--- NOTE | 2020-03-23 22:11 | P.PNPS_ITS ---
TMS Daily Progress Note Daily TMS Progress Note Date of Service: 03/23/20 Week #: 4 Treatment #(04-04): 17 PHQ-9 Pre-Treatment (04-01): 24 PHQ-9 Most Recent (04-01): 18 CGI-I Most Recent: 4 = No Change Reviewed: TMS Tech Note Reviewed Verification: I have reviewed the TMS Tentering Machine Off Bearer Note and agree with the contents. The patient remains a candidate to continue TMS treatment per protocol.
--- NOTE | 2020-03-26 13:11 | HO.TMSDAILY2 ---
TMS Daily Progress Note Daily TMS Progress Note Date of Service: 03/25/20 Week #: 4 Treatment #(04-04): 19 PHQ-9 Pre-Treatment (04-01): 24 PHQ-9 Most Recent (04-01): 18 CGI-I Most Recent: 4 = No Change Reviewed: TMS Tech Note Reviewed Verification: I have reviewed the TMS Rental Salesperson Note and agree with the contents. The patient remains a candidate to continue TMS treatment per protocol.
--- NOTE | 2020-03-26 13:12 | HO.TMSDAILY2 ---
TMS Daily Progress Note Daily TMS Progress Note Date of Service: 03/26/20 Week #: 4 Treatment #(04-04): 20 PHQ-9 Pre-Treatment (04-01): 24 PHQ-9 Most Recent (04-01): 18 CGI-I Most Recent: 4 = No Change Reviewed: TMS Tech Note Reviewed Verification: I have reviewed the TMS Escapement Maker Note and agree with the contents. The patient remains a candidate to continue TMS treatment per protocol.
--- NOTE | 2020-03-27 12:09 | HO.TMSDAILY2 ---
TMS Daily Progress Note Daily TMS Progress Note Date of Service: 03/28/20 Week #: 5 Treatment #(04-04): 21 PHQ-9 Pre-Treatment (04-01): 24 PHQ-9 Most Recent (04-01): 18 CGI-I Most Recent: 4 = No Change Reviewed: TMS Tech Note Reviewed Verification: I have reviewed the TMS Economic Specialist Note and agree with the contents. The patient remains a candidate to continue TMS treatment per protocol.
--- NOTE | 2020-04-09 21:48 | HO.TMSDAILY2 ---
TMS Daily Progress Note Daily TMS Progress Note Date of Service: 04/09/20 Week #: 6 Treatment #(04-04): 28 PHQ-9 Pre-Treatment (04-01): 24 PHQ-9 Most Recent (04-01): 18 CGI-I Most Recent: 4 = No Change Reviewed: TMS Tech Note Reviewed Verification: I have reviewed the TMS Cashier Supervisor Note and agree with the contents. The patient remains a candidate to continue TMS treatment per protocol.
--- NOTE | 2020-04-10 23:14 | HO.TMSDAILY2 ---
TMS Daily Progress Note Daily TMS Progress Note Date of Service: 04/10/20 Week #: 6 Treatment #(04-04): 29 PHQ-9 Pre-Treatment (04-01): 24 PHQ-9 Most Recent (04-01): 18 CGI-I Most Recent: 4 = No Change Reviewed: TMS Tech Note Reviewed Verification: I have reviewed the TMS Software Applications Designer Note and agree with the contents. The patient remains a candidate to continue TMS treatment per protocol.
--- NOTE | 2020-04-16 20:48 | P.PNPS_ITS ---
TMS Daily Progress Note Daily TMS Progress Note Date of Service: 04/16/20 Week #: 7 Treatment #(04-04): 32 PHQ-9 Pre-Treatment (04-01): 24 PHQ-9 Most Recent (04-01): 18 CGI-I Most Recent: 4 = No Change Reviewed: TMS Tech Note Reviewed Verification: I have reviewed the TMS Perioperative Nurse Note and agree with the contents. The patient remains a candidate to continue TMS treatment per protocol.
--- NOTE | 2020-04-16 20:49 | P.PNPS_ITS ---
TMS Daily Progress Note Daily TMS Progress Note Date of Service: 04/16/20 Week #: 7 Treatment #(04-04): 33 PHQ-9 Pre-Treatment (04-01): 24 PHQ-9 Most Recent (04-01): 18 CGI-I Most Recent: 4 = No Change Reviewed: TMS Tech Note Reviewed Verification: I have reviewed the TMS Banquet Kitchen Supervisor Note and agree with the contents. The patient remains a candidate to continue TMS treatment per protocol.
--- NOTE | 2020-04-17 23:04 | P.PNPS_ITS ---
TMS Daily Progress Note Daily TMS Progress Note Date of Service: 04/17/20 Week #: 8 Treatment #(04-04): 34 PHQ-9 Pre-Treatment (04-01): 24 PHQ-9 Most Recent (04-01): 18 CGI-I Most Recent: 4 = No Change Reviewed: TMS Tech Note Reviewed Verification: I have reviewed the TMS Human Insights Lead Ads Marketing Note and agree with the contents. The patient remains a candidate to continue TMS treatment per protocol.
--- NOTE | 2020-04-21 09:30 | HO.PSYCHPN ---
Subjective Subjective Date of Service: 04/21/20 Reason For Visit: Depression Medications Allergies Allergies Allergy/AdvReac Type Severity Reaction Status Date / Time No Known Allergies Allergy Unknown Verified 03/08/20 19:46 Assessment & Plan Greater than 50% of the session was spent on counseling and/or coordination of care
--- NOTE | 2020-04-21 09:34 | HO.TMSDAILY2 ---
TMS Daily Progress Note Daily TMS Progress Note Date of Service: 04/21/20 Week #: 8 Treatment #(04-04): 35 PHQ-9 Pre-Treatment (04-01): 24 PHQ-9 Most Recent (04-01): 18 CGI-I Most Recent: 4 = No Change Reviewed: TMS Tech Note Reviewed Verification: I have reviewed the TMS Gizzard Skin Remover Note and agree with the contents. The patient remains a candidate to continue TMS treatment per protocol.
== END 2020-04-23 16:00 | disposition home or self-care (01) ==
LOC: HO.PTMS 10:30
PROVIDERS: PCP Internal Medicine; Visit Provider Psychiatry & Neurology Psychiatry
DX: F33.2 Major depressive disorder, recurrent severe without psychotic features (principal)
CPT/HCPCS: 90867; 90868

== ENCOUNTER → 2022-06-22 11:23 | Outpatient (BNVA) | payer MEDICARE, SELFPAY | PROVIDERS: PCP Internal Medicine; Visit Provider Surgery | DX: K44.9 Diaphragmatic hernia without obstruction or gangrene (principal); K21.9 Gastro-esophageal reflux disease without esophagitis | CPT/HCPCS: Q3014 ==

== ENCOUNTER 2022-06-28 06:03 | Day surgery (SDC) | payer MEDICARE, SELFPAY ==
--- NOTE | 2022-06-25 17:51 | MHC.SHP ---
Pre-Procedural Eval Section A Date of Service: 06/25/22 The patient is an INPATIENT: No The History & Physical has been completed within 30 days and I have reviewed it.: Yes Section B Chief Complaint: Diaphragmatic hernia without obstruction or gangre Relevant Family History (Specify if Yes): No Relevant Social History: None Present Medications: None Medical History: No relevant PMH History of Previous Operations: Relevant previous surgery/procedure and date(s) (Laparoscopic gastric bypass, lap gastric band) Allergies: Allergies Allergy/AdvReac Type Severity Reaction Status Date / Time No Known Allergies Allergy Unknown Verified 06/22/22 11:32 Review of Systems Sugical H&P ROS: Negative: Constitution, Cardiovascular, Respiratory, Neurological, Psychiatric, Hem-Onc, Allergic/Immunologic, Gastrointestinal, Genitourinary, Musculoskeletal, Integumentary, Endocrine and Eyes/Ears/Nose/Throat Exam Surgical H&P Exam: Normal: HEENT, Normal: Heart, Normal: Lungs, Normal: Extremities, Normal: Abdomen, Normal: Skin and Normal: Neurological Plan Diagnosis/Plan: Unchanged (EGD to assess for esphagitis and hiatal hernia. Risks for perforation and bleeding were discussed with patient. She is in agreement with the plan) I have reviewed the history and physical and performed a pertinent physical examination on my patient. No changes have occurred unless specified. Time Spent With Patient Time: Total time managing care of this patient today ____ minutes.
--- NOTE | 2022-06-27 10:39 | HO.ANESPROP2 ---
HPI - Anesthesia Eval Consult details Narrative: 51yo F for Upper Endoscopy hx of gastric bypass followed by lap band that was removed 2019 d/t slippage PMFSH Active Problems Active Problems: All Active Problems (Updated 02/19/20 @ 09:10 by Tobin Mullen MD) Abdominal adhesions (Acute) Esophagitis (Acute) Diaphragmatic hernia (Acute) Gastric band slippage (Acute) Malabsorption due to intolerance, not elsewhere classified (Acute) Status post gastric banding (Acute) GERD (gastroesophageal reflux disease) (Acute) Overweight (BMI 25.0-29.9) (Acute) Past Medical History Medical History Anxiety Asthma Depression Gastric band slippage GERD (gastroesophageal reflux disease) Hypoglycemia Major depressive disorder, recurrent severe without psychotic features Malabsorption due to intolerance, not elsewhere classified Migraines Seasonal allergies Family History Family History Father DM (diabetes mellitus) Heart disease Mother DM (diabetes mellitus) Heart disease Pulmonary hypertension Brother DM (diabetes mellitus) Heart disease Kidney disease Brother HTN (hypertension) DM (diabetes mellitus) High cholesterol Family history of problems with anesthesia: No Surgical History Surgical History H/O sinus surgery History of esophagogastroduodenoscopy (EGD) History of removal of laparoscopic gastric banding device History of Asa-en-Y gastric bypass Hx laparoscopic cholecystectomy Hx of hernia repair Hx of laparoscopic gastric banding Overweight (BMI 25.0-29.9) Previous back surgery S/P rotator cuff surgery S/P wrist surgery Status post gastric banding History of Problems with Anesthesia: No Social History Social History Are you a primary hearing care practitioner to a significant other at home: No Do you presently have visiting nurse or other home services: No Alcohol intake: former Patient Tobacco Use Status: Never used Tobacco Second Hand Smoke Exposure: No service: No Current occupational status: disabled Meds Allergies Allergy/AdvReac Type Severity Reaction Status Date / Time No Known Allergies Allergy Unknown Verified 06/22/22 11:32 Home Medications Medication Instructions Recorded Confirmed Last Taken Type acetaminophen 500 mg tablet 500 mg PO Q4-6H PRN Pain 01/07/20 02/06/20 Unknown History albuterol sulfate 90 mcg/actuation 2 puff inhalation QID PRN wheezing 01/07/20 02/06/20 Unknown History aerosol inhaler amitriptyline 25 mg tablet 25 mg PO BEDTIME 01/07/20 02/06/20 Unknown History blood sugar diagnostic #10 ea 01/07/20 Unknown History bupropion HCl 300 mg 24 hr tablet, 300 mg PO DAILY 01/07/20 02/06/20 Unknown History extended release clonazepam 0.5 mg tablet 0.5 mg PO DAILY PRN Anxiety 01/07/20 02/06/20 Unknown History clonazepam 1 mg tablet 1 mg PO BEDTIME 01/07/20 02/06/20 Unknown History dexlansoprazole 60 mg 60 mg PO BID 01/07/20 02/11/20 02/11/20 04:30 History capsule,biphase delayed release doxepin 25 mg capsule 25 mg PO BEDTIME 01/07/20 02/06/20 Unknown History glucagon (human recombinant) 1 mg 1 mg IM DIRECTED diabetes 01/07/20 02/06/20 Unknown History solution for injection mellitus lancets 33 gauge #100 ea 01/07/20 Unknown History loratadine 10 mg tablet 10 mg PO DAILY 01/07/20 02/06/20 Unknown History lurasidone 60 mg tablet 60 mg PO BEDTIME 01/07/20 02/06/20 Unknown History montelukast 10 mg tablet 10 mg PO BEDTIME 01/07/20 02/06/20 Unknown History topiramate 50 mg tablet 100 mg PO BEDTIME 01/07/20 02/06/20 Unknown History ubrogepant 50 mg tablet 50 mg PO DIRECTED PRN Migraine 01/07/20 02/06/20 Unknown History Headache budesonide-formoterol HFA 160 2 puff inhalation BID 06/28/22 06/28/22 06/28/22 History mcg-4.5 mcg/actuation aerosol inhaler (Symbicort) famotidine 40 mg tablet 40 mg BID 06/28/22 06/28/22 Unknown History famotidine 40 mg tablet 40 mg BID 06/28/22 06/28/22 06/28/22 History Exam Exam Date and Time: June 27, 2022 103 Assessment and Plan Assessment Anesthesia Assessment: Chart Reviewed Final Anesthetic Review Family History of Problems with Anesthesia: No History of Problems with Anesthesia: No
[2022-06-27 14:32] LABS: COVID-19 Test Negative (Negative); IDNOW Serial# BCCEAD1C
[2022-06-28 06:22] VITALS: BMI 24.5
[2022-06-28 06:38] VITALS: BP 124/73; PULSE 75; RESP 16; TEMP 36.4; O2SAT 99
[2022-06-28] MEDS: Lactated Ringers 1,000 ML 80 ML IVCONT (06:39)
--- NOTE | 2022-06-28 07:27 | PM.OP ---
Brief Operative Note Date of Service: 06/28/22 Pre-op diagnosis: Diaphragmatic hernia, GERD, s/p gastric bypass and lap band Post-op diagnosis: same Procedure: PROCEDURE DATE: 1968 PREOPERATIVE DIAGNOSIS: GERD, s/p gastric bypass POSTOPERATIVE DIAGNOSIS: ?Same as above. 1) 5cm diaphragmatic hernia, 2) mild anastomotic stricture, 3) esophagitis PROCEDURE: [id number] with biopsies Surgeon: ?Ajay Mullen M.D.. Ph.D. Central Station Operator: ?None ? Anesthesia: IV sedation Estimated blood loss: ?Minimal FINDINGS AND PROCEDURE: ? OPERATIVE INDICATIONS: ?The patient is a 51 year old female known to me, who has a history of open gastric bypass at [facility] followed by a lap-band by Dr. Pate. Was admitted urgently at [facility] for gastric outlet obstruction due to band slippage and required band removal by me. Since then she has lost to follow up. Reviewing her records she underwent an emergency surgery last August by Dr. Costello for a possible internal hernia complicated by an intra-abdominal abscess that required IR and drainage. Following that, she had an open umbilical hernia by Dr. Costello. The patient has a known diaphragmatic hernia The patient complains of severe GERD and progessively worsening vomiting leading to an about 25 lbs weight loss since 02/2020 last seen here. Based on this information I recommended an upper endoscopy to evaluate the patient's symptoms.? Risks and complications of the surgery were discussed with the patient in advance particularly the possibility of perforation or bleeding that may require surgical intervention. The patient understood the risks and was in agreement with the plan. ? PROCEDURE: After informed consent was obtained by the patient, the patient was ?transferred to the Operating Room and was placed in the supine position.? After successful induction of IV sedation, a mouth block was placed and the patient was placed in the left lateral decubitus position. An upper endoscopy was performed next, the oropharynx and esophagus appeared within the normal limits. There was no hiatal hernia.? The z-line was irregular circumferentially at 35cm. Two biopsies were obtained from the GE junction. The small pouch was entered. The crura identation was at 40cm. About half of the pouch was above the crura and half of the pouch was below. I did not see any significant lateral redundancy but because of the diaphragmatic hernia the size of the pouch cannot be well assessed. There was no gastritis and the gastrojejunostomy was patent, but somewhat narrow. A biopsy was obtained from the gastric pouch. No significant bleeding was noted from any of the biopsy sites. There was no anastomotic ulcer.? At that point the scope was advanced into the proximal small intestine (proximal Asa limb) which appeared to be normal as well. There were two retained sutures in the efferent limb that did not seem to be in connection with the anastomosis. The Asa limb and the pouch were decompressed and the scope was withdrawn from the patient's mouth. The patient was awaken and was transferred in stable condition to the Recovery Room for further care. I was present and performed all steps of the procedure. There were no residents to assist with this case. Ajay Mullen M.D., Ph.D. Surgeon: Tobin Mullen MD Anesthesia: MAC Was an Central Station Operator used for this Procedure?: No Estimated blood loss (mL): 0 IV fluids (mL): 400 Urine output (mL): 0 (No Klein to record) Pathology: other (1) GE junction x2, 2) gastric pouch x1) Condition: stable Disposition: PACU
--- NOTE | 2022-06-28 07:28 | P.CONAN_ITS ---
[facility] Active Problems Active Problems: All Active Problems (Updated 02/19/20 @ 09:10 by Tobin Mullen MD) Abdominal adhesions (Acute) Esophagitis (Acute) Diaphragmatic hernia (Acute) Gastric band slippage (Acute) Malabsorption due to intolerance, not elsewhere classified (Acute) Status post gastric banding (Acute) GERD (gastroesophageal reflux disease) (Acute) Overweight (BMI 25.0-29.9) (Acute) Past Medical History Medical History Anxiety Asthma Depression Gastric band slippage GERD (gastroesophageal reflux disease) Hypoglycemia Major depressive disorder, recurrent severe without psychotic features Malabsorption due to intolerance, not elsewhere classified Migraines Seasonal allergies Family History Family History Father DM (diabetes mellitus) Heart disease Mother DM (diabetes mellitus) Heart disease Pulmonary hypertension Brother DM (diabetes mellitus) Heart disease Kidney disease Brother HTN (hypertension) DM (diabetes mellitus) High cholesterol Family history of problems with anesthesia: No Surgical History Surgical History H/O sinus surgery History of esophagogastroduodenoscopy (EGD) History of removal of laparoscopic gastric banding device History of Asa-en-Y gastric bypass Hx laparoscopic cholecystectomy Hx of hernia repair Hx of laparoscopic gastric banding Overweight (BMI 25.0-29.9) Previous back surgery S/P rotator cuff surgery S/P wrist surgery Status post gastric banding History of Problems with Anesthesia: No Social History Social History Are you a primary health care attorney to a significant other at home: No Do you presently have visiting nurse or other home services: No Alcohol intake: former Patient Tobacco Use Status: Never used Tobacco Second Hand Smoke Exposure: No Use of substances other than those prescribed or required for medical reasons: No Are you DNR?: No Advance Directives: No Advance Directives Information Provided: Yes Advance Directives on File: No service: No Current occupational status: disabled Meds Allergies Allergy/AdvReac Type Severity Reaction Status Date / Time No Known Allergies Allergy Unknown Verified 06/22/22 11:32 Active Medications: Current Medications Albuterol Sulfate (Albuterol Sulfate (0.083%) 2.5 Mg/3 Ml Vial.Neb) 2.5 mg INHALE ONCE PRN PRN Reason: Shortness of Breath/Wheezing Lactated Ringer's (Lr) 1,000 mls @ 80 mls/hr IVCONT .[id number] [facility] Last Admin: 06/28/22 06:39 Dose: 80 mls/hr Lactated Ringer's (Lr) 1,000 mls @ 100 mls/hr IVCONT .Q10H [facility] Home Medications Medication Instructions Recorded Confirmed Last Taken Type acetaminophen 500 mg tablet 500 mg PO Q4-6H PRN Pain 01/07/20 02/06/20 Unknown History albuterol sulfate 90 mcg/actuation 2 puff inhalation QID PRN wheezing 01/07/20 02/06/20 Unknown History aerosol inhaler amitriptyline 25 mg tablet 25 mg PO BEDTIME 01/07/20 02/06/20 Unknown History blood sugar diagnostic #10 ea 01/07/20 Unknown History bupropion HCl 300 mg 24 hr tablet, 300 mg PO DAILY 01/07/20 02/06/20 Unknown History extended release clonazepam 0.5 mg tablet 0.5 mg PO DAILY PRN Anxiety 01/07/20 02/06/20 Unknown History clonazepam 1 mg tablet 1 mg PO BEDTIME 01/07/20 02/06/20 Unknown History dexlansoprazole 60 mg 60 mg PO BID 01/07/20 02/11/20 02/11/20 04:30 History capsule,biphase delayed release doxepin 25 mg capsule 25 mg PO BEDTIME 01/07/20 02/06/20 Unknown History glucagon (human recombinant) 1 mg 1 mg IM DIRECTED diabetes 01/07/20 02/06/20 Unknown History solution for injection mellitus lancets 33 gauge #100 ea 01/07/20 Unknown History loratadine 10 mg tablet 10 mg PO DAILY 01/07/20 02/06/20 Unknown History lurasidone 60 mg tablet 60 mg PO BEDTIME 01/07/20 02/06/20 Unknown History montelukast 10 mg tablet 10 mg PO BEDTIME 01/07/20 02/06/20 Unknown History topiramate 50 mg tablet 100 mg PO BEDTIME 01/07/20 02/06/20 Unknown History ubrogepant 50 mg tablet 50 mg PO DIRECTED PRN Migraine 01/07/20 02/06/20 Unknown History Headache budesonide-formoterol HFA 160 2 puff inhalation BID 06/28/22 06/28/22 06/28/22 History mcg-4.5 mcg/actuation aerosol inhaler (Symbicort) famotidine 40 mg tablet 40 mg BID 06/28/22 06/28/22 Unknown History famotidine 40 mg tablet 40 mg BID 06/28/22 06/28/22 06/28/22 History Exam Exam Date and Time: June 28, 2022727 Height,Weight and Vital Signs: Height 5 ft 2 in Weight 60.963 kg Last Vital Signs Temp 97.6 F 06/28/22 06:38 Pulse 75 06/28/22 06:38 Resp 16 06/28/22 06:38 BP 124/73 06/28/22 06:38 Pulse Ox 99 06/28/22 06:38 O2 Del Method Room Air 06/28/22 06:38 Pertinent Lab Results Pertinent Lab Results: Laboratory Tests 06/27/22 06/28/22 13:54 06:31 POC Glucose 89 COVID-19 (TIN) Negative COVID-19 Clin Com See Note Airway Mallampati Class: II TM Dist: >3cm Neck ROM: Full Loose/Missing/Broken Teeth: No Heart: RRR Lungs: CTA Assessment and Plan Assessment Anesthesia Assessment: Anesthesia Plan Discussed and Chart Reviewed Final Anesthetic Review Family History of Problems with Anesthesia: No History of Problems with Anesthesia: No NPO: Yes ASA Class: II Final Preanesthetic Review: Meds/Allgs Chart Reviewed and Consent Obtained/Reviewed Patient Risk: Low Procedure Risk: Intermediate Anesthetic Plan Anesthetic Plan: MAC: Disposition: Standard PACU
[2022-06-28 07:55] VITALS: BP 107/61; PULSE 66; RESP 16; TEMP 36.2; O2SAT 99
[2022-06-28 08:10] VITALS: BP 108/71; PULSE 67; RESP 16; TEMP 36.2; O2SAT 98
== END 2022-06-28 08:30 | disposition home or self-care (01) ==
PROVIDERS: Physician Assistant Surgical; PCP Nurse Practitioner Family; Visit Provider Surgery
PROC: 0DJ08ZZ Inspection of Upper Intestinal Tract, Via Natural or Artificial Opening Endoscopic (ICD-10-PCS; CPT 43235; principal; 2022-06-28 07:30)
DX: K91.89 Other postprocedural complications and disorders of digestive system (principal); K90.49 Malabsorption due to intolerance, not elsewhere classified; Z98.84 Bariatric surgery status; K44.9 Diaphragmatic hernia without obstruction or gangrene; K21.9 Gastro-esophageal reflux disease without esophagitis; E16.2 Hypoglycemia, unspecified; K20.80 Other esophagitis without bleeding; J45.20 Mild intermittent asthma, uncomplicated; G43.909 Migraine, unspecified, not intractable, without status migrainosus; F33.2 Major depressive disorder, recurrent severe without psychotic features; F41.1 Generalized anxiety disorder; Z20.822 Contact with and (suspected) exposure to COVID-19
CPT/HCPCS: 43239; 82947; 87635; 88305; 88342

== ENCOUNTER → 2022-07-04 10:24 | Outpatient (BNVA) | payer MEDICARE, SELFPAY | PROVIDERS: PCP Internal Medicine; Visit Provider Surgery | DX: K44.9 Diaphragmatic hernia without obstruction or gangrene (principal); K21.9 Gastro-esophageal reflux disease without esophagitis; K90.49 Malabsorption due to intolerance, not elsewhere classified; R11.10 Vomiting, unspecified | CPT/HCPCS: 99212 ==

== ENCOUNTER → 2022-08-05 08:05 | Outpatient (BNVA) | payer MEDICARE, SELFPAY | PROVIDERS: PCP Nurse Practitioner Family; Visit Provider Surgery | DX: K90.9 Intestinal malabsorption, unspecified (principal); K44.9 Diaphragmatic hernia without obstruction or gangrene; K20.90 Esophagitis, unspecified without bleeding; R11.10 Vomiting, unspecified | CPT/HCPCS: Q3014 ==

== ENCOUNTER 2022-08-08 08:05 | Outpatient (REF) | payer MEDICARE, MEDICAID, SELFPAY ==
[2022-08-08 08:18] LABS: MANUAL DIFF FLAG NO
[2022-08-08 08:42] LABS: Basophils Absolute Auto 0.1 X10*3/uL (0.0-0.2); Basophils Percent Auto 0.9 % (0-2); Eosinophils Absolute Auto 0.2 X10*3/uL (0.0-0.4); Eosinophils Percent Auto 3.1 % (0-4); Hematocrit 41.8 % (37.0-47.0); Hemoglobin 13.9 g/dl (12.0-16.0); Imm Gran Abs Auto 0.01 X10*3/uL (0.00-0.03); Imm Gran Pct Auto 0.2 % (0.0-0.4); Lymphocytes Absolute Auto 1.9 X10*3/uL (1.2-4.9); Lymphocytes Percent Auto 33.7 % (20-40); Mean Corpuscular HGB Conc 33.3 g/dl (31.0-35.0); Mean Corpuscular Hemoglobin 29.8 pg (27.0-33.0); Mean Corpuscular Volume 89.5 fL (80.0-98.0); Mean Platelet Volume 10.2 fL (9.4-12.3); Monocytes Absolute Auto 0.6 X10*3/uL (0.1-1.2); Monocytes Percent Auto 11.2 % (2-11); Neutrophils Absolute Auto 2.9 x10*3/uL (2.0-8.3); Neutrophils Percent Auto 50.9 % (45-73); Platelet Count 311 X10*3/uL (160-400); Red Blood Count 4.67 X10*6/uL (4.20-5.50); Red Cell Distribution Width 13.9 % (11.0-16.0); White Blood Count 5.7 X10*3/uL (4.8-10.8)
[2022-08-08 08:50] LABS: INTERNATIONAL NORM RATIO 0.9 (0.9-1.1)
[2022-08-08 08:52] LABS: Estimated Average Glucose 91 mg/dL; Hemoglobin A1c % 4.8 %
[2022-08-08 09:21] LABS: Alanine Aminotransferase 16 U/L (0-31); Alkaline Phosphatase 55 U/L (39-117); Anion Gap 13 (12-20); Aspartate Amino Transferase 20 U/L (5-31); Bilirubin Total 0.6 mg/dL (0.0-1.0); Blood Urea Nitrogen 12 mg/dL (9-16); C Reactive Protein < 0.10 mg/dL (< or = 0.50); Calcium 9.2 mg/dL (8.4-10.2); Carbon Dioxide 24 mmol/L (22-29); Chloride 110 mmol/L (96-108); Cholesterol 211 mg/dL; Estimated Glomerular Filt Rate > 60; Glucose Random 82 mg/dL (60-115); HDL Cholesterol 72 mg/dL; LDL Cholesterol Calculated 126 mg/dl; Potassium 4.4 mmol/L (3.3-5.1); Sodium 143 mmol/L (135-145); Total Protein 6.7 g/dL (6.5-8.0); Triglycerides 69 mg/dL
[2022-08-08 09:27] LABS: Insulin 5 uU/mL (2-29); TSH reflex Free T4 2.76 uIU/mL (0.32-4.0)
== END 2022-08-08 08:06 | disposition home or self-care (01) ==
LOC: HO.LAB 08:05
PROVIDERS: PCP Nurse Practitioner Family; Visit Provider Surgery
DX: K90.9 Intestinal malabsorption, unspecified (principal)
CPT/HCPCS: 36415; 80053; 80061; 83036; 83525; 84443; 85025; 85610; 85730; 86140

== ENCOUNTER 2022-08-17 08:14 | Inpatient (IN) | payer MEDICARE, MEDICAID, SELFPAY ==
[2022-08-09 10:04] VITALS: BMI 23.2
--- NOTE | 2022-08-10 | ECG_ITS ---
Test Reason : PREOP Blood Pressure : / mmHG Vent. Rate : 072 BPM Atrial Rate : 072 BPM P-R Int : 192 ms QRS Dur : 082 ms QT Int : 380 ms P-R-T Axes : 061 -13 060 degrees QTc Int : 416 ms Normal sinus rhythm Normal ECG When compared with ECG of 08-MAR-2020 21:28, No significant change was found Referred By: Tenisha Pagan Electronically Signed By:Sanchez Casanova
[2022-08-10 11:59] VITALS: BP 120/75; PULSE 75; RESP 16; O2SAT 98
--- NOTE | 2022-08-10 12:07 | HO.ANESPROP2 ---
Documented by User: Tenisha Pagan NP 08/16/22 10:36 HPI - Anesthesia Eval Consult details Narrative: 52yo F for Hernia Repair Diaphragmatic Laparoscopic s/p gastric bypass 2002 s/p EGD 06/2022 with [facility] PMFSH Active Problems Active Problems: All Active Problems (Updated 08/10/22 @ 11:58 by Teresa Jane, RN) Esophagitis (Acute) Diaphragmatic hernia (Acute) Abdominal adhesions (Acute) Vomiting (Acute) Intestinal malabsorption (Acute) Gastric band slippage (Acute) Malabsorption due to intolerance, not elsewhere classified (Acute) Status post gastric banding (Acute) GERD (gastroesophageal reflux disease) (Acute) Overweight (BMI 25.0-29.9) (Acute) Past Medical History Medical History (Updated 08/10/22 @ 13:13 by Teresa Jane, SEVERO) Anxiety Asthma Depression Gastric band slippage GERD (gastroesophageal reflux disease) Hx of small bowel obstruction Hypoglycemia Intestinal malabsorption Major depressive disorder, recurrent severe without psychotic features Malabsorption due to intolerance, not elsewhere classified Migraines Seasonal allergies Family History Family History Father DM (diabetes mellitus) Heart disease Mother DM (diabetes mellitus) Heart disease Pulmonary hypertension Brother DM (diabetes mellitus) Heart disease Kidney disease Brother HTN (hypertension) DM (diabetes mellitus) High cholesterol Family history of problems with anesthesia: No Surgical History Surgical History (Updated 08/10/22 @ 11:58 by Teresa Jane RN) H/O sinus surgery History of esophagogastroduodenoscopy (EGD) History of removal of laparoscopic gastric banding device History of Asa-en-Y gastric bypass Hx laparoscopic cholecystectomy Hx of hernia repair Hx of laparoscopic gastric banding Overweight (BMI 25.0-29.9) Previous back surgery S/P rotator cuff surgery S/P wrist surgery Status post gastric banding History of Problems with Anesthesia: No Social History Social History (Updated 08/09/22 @ 10:06 by Teresa Jane RN) Are you a primary respiratory care instructor to a significant other at home: No Do you presently have visiting nurse or other home services: No Alcohol intake: former Patient Tobacco Use Status: Never used Tobacco Second Hand Smoke Exposure: No Use of substances other than those prescribed or required for medical reasons: No Have you been hit, kicked, punched, or otherwise hurt by someone within the past year? If so, by whom?: No Are you DNR?: No Advance Directives: No Advance Directives Information Provided: Yes Advance Directives on File: No Nutrition Risks: Gastrointestinal Malabsorption service: No Current occupational status: disabled Narrative Narrative: No recent illness No CP/SOB with >4 mets Asthma stable - last albuterol use 1 year ago Meds Allergies Allergy/AdvReac Type Severity Reaction Status Date / Time No Known Allergies Allergy Unknown Verified 08/09/22 09:54 Home Medications Medication Instructions Recorded Confirmed Last Taken Type albuterol sulfate 90 mcg/actuation 2 puff inhalation QID PRN wheezing 01/07/20 08/09/22 Unknown History aerosol inhaler blood sugar diagnostic #10 ea 01/07/20 08/05/22 Unknown History clonazepam 1 mg tablet 1 mg PO BEDTIME 01/07/20 08/09/22 Unknown History dexlansoprazole 60 mg 60 mg PO BID 01/07/20 08/09/22 02/11/20 04:30 History capsule,biphase delayed release lancets 33 gauge #100 ea 01/07/20 08/05/22 Unknown History montelukast 10 mg tablet 10 mg PO BEDTIME 01/07/20 08/09/22 Unknown History budesonide-formoterol HFA 160 2 puff inhalation BID 06/28/22 08/09/22 06/28/22 History mcg-4.5 mcg/actuation aerosol inhaler (Symbicort) famotidine 40 mg tablet 40 mg BID 06/28/22 08/09/22 06/28/22 History calcium 500 mg PO BID 08/09/22 08/09/22 Unknown History cetirizine 10 mg tablet 10 mg PO DAILY 08/09/22 08/09/22 Unknown History cholecalciferol (vitamin D3) 25 25 mcg PO DAILY 08/09/22 08/09/22 Unknown History mcg (1,000 unit) capsule (Vitamin D3) cyanocobalamin (vitamin B-12) 1,000 mcg subcut QMONTH 08/09/22 08/09/22 Unknown History 1,000 mcg/mL injection solution gabapentin 100 mg capsule 100 - 200 mg PO BEDTIME PRN 08/09/22 08/09/22 Unknown History Insomnia galcanezumab-gnlm 120 mg/mL 120 mg subcut QMONTH 08/09/22 08/09/22 Unknown History subcutaneous pen injector (Emgality Pen) multivitamin 1 tab PO DAILY 08/09/22 08/09/22 Unknown History rimegepant 75 mg disintegrating 75 mg PO DAILY PRN Migraine 08/09/22 08/09/22 Unknown History tablet (Nurtec ODT) Headache sucralfate 100 mg/mL oral 10 ml PO QID 08/09/22 08/09/22 Unknown History suspension vortioxetine 20 mg tablet 20 mg PO DAILY 08/09/22 08/09/22 Unknown History (Trintellix) Exam Exam Date and Time: August 10, 2022 1207 Height,Weight and Vital Signs: Height 5 ft 2 in Weight 57.606 kg Last Vital Signs Pulse 75 08/10/22 11:59 Resp 16 08/10/22 11:59 BP 120/75 08/10/22 11:59 Pulse Ox 98 08/10/22 11:59 O2 Del Method Room Air 08/10/22 11:59 Pertinent Lab Results Pertinent Lab Results: Laboratory Tests 08/08/22 08:15 Blood Type A Negative Antibody Screen NEGATIVE Laboratory Tests 08/08/22 08/08/22 08:16 08:16 WBC 5.7 Hgb 13.9 Hct 41.8 Plt Count 311 Sodium 143 Potassium 4.4 Chloride 110 H Carbon Dioxide 24 BUN 12 Creatinine 0.66 Narrative Narrative: EKG 08/2022 Vent. Rate : 072 BPM ? ? Atrial Rate : 072 BPM ?? P-R Int : 192 ms? QRS Dur : 082 ms ? ? QT Int : 380 ms ? ? ? P-R-T Axes : 061 -13 060 degrees ?? QTc Int : 416 ms ? Normal sinus rhythm Normal ECG When compared with ECG of 08-MAR-2020 21:28, No significant change was found Airway Mallampati Class: I TM Dist: >3cm Neck ROM: Full Loose/Missing/Broken Teeth: Yes (Right molar missing) Heart: RRR Lungs: CTAB Assessment and Plan Assessment Anesthesia Assessment: Anesthesia Plan Discussed and PAT Visit Final Anesthetic Review Family History of Problems with Anesthesia: No History of Problems with Anesthesia: No Documented by User: Victor Hugo Aguilar MD 08/17/22 09:34 [facility] Past Medical History Medical History (Updated 08/10/22 @ 13:13 by Teresa Jane RN) Anxiety Asthma Depression Gastric band slippage GERD (gastroesophageal reflux disease) Hx of small bowel obstruction Hypoglycemia Intestinal malabsorption Major depressive disorder, recurrent severe without psychotic features Malabsorption due to intolerance, not elsewhere classified Migraines Seasonal allergies Family History Family History Father DM (diabetes mellitus) Heart disease Mother DM (diabetes mellitus) Heart disease Pulmonary hypertension Brother DM (diabetes mellitus) Heart disease Kidney disease Brother HTN (hypertension) DM (diabetes mellitus) High cholesterol Surgical History Surgical History (Updated 08/10/22 @ 11:58 by Teresa Jane, SEVERO) H/O sinus surgery History of esophagogastroduodenoscopy (EGD) History of removal of laparoscopic gastric banding device History of Asa-en-Y gastric bypass Hx laparoscopic cholecystectomy Hx of hernia repair Hx of laparoscopic gastric banding Overweight (BMI 25.0-29.9) Previous back surgery S/P rotator cuff surgery S/P wrist surgery Status post gastric banding Social History Social History (Updated 08/09/22 @ 10:06 by Teresa Jane RN) Are you a primary respiratory care instructor to a significant other at home: No Do you presently have visiting nurse or other home services: No Alcohol intake: former Patient Tobacco Use Status: Never used Tobacco Second Hand Smoke Exposure: No Use of substances other than those prescribed or required for medical reasons: No Have you been hit, kicked, punched, or otherwise hurt by someone within the past year? If so, by whom?: No Are you DNR?: No Advance Directives: No Advance Directives Information Provided: Yes Advance Directives on File: No Nutrition Risks: Gastrointestinal Malabsorption service: No Current occupational status: disabled Meds Allergies Allergy/AdvReac Type Severity Reaction Status Date / Time No Known Allergies Allergy Unknown Verified 08/09/22 09:54 Home Medications Medication Instructions Recorded Confirmed Last Taken Type albuterol sulfate 90 mcg/actuation 2 puff inhalation QID PRN wheezing 01/07/20 08/09/22 Unknown History aerosol inhaler blood sugar diagnostic #10 ea 01/07/20 08/05/22 Unknown History clonazepam 1 mg tablet 1 mg PO BEDTIME 01/07/20 08/09/22 Unknown History dexlansoprazole 60 mg 60 mg PO BID 01/07/20 08/09/22 02/11/20 04:30 History capsule,biphase delayed release lancets 33 gauge #100 ea 01/07/20 08/05/22 Unknown History montelukast 10 mg tablet 10 mg PO BEDTIME 01/07/20 08/09/22 Unknown History budesonide-formoterol HFA 160 2 puff inhalation BID 06/28/22 08/09/22 06/28/22 History mcg-4.5 mcg/actuation aerosol inhaler (Symbicort) famotidine 40 mg tablet 40 mg BID 06/28/22 08/09/22 06/28/22 History calcium 500 mg PO BID 08/09/22 08/09/22 Unknown History cetirizine 10 mg tablet 10 mg PO DAILY 08/09/22 08/09/22 Unknown History cholecalciferol (vitamin D3) 25 25 mcg PO DAILY 08/09/22 08/09/22 Unknown History mcg (1,000 unit) capsule (Vitamin D3) cyanocobalamin (vitamin B-12) 1,000 mcg subcut QMONTH 08/09/22 08/09/22 Unknown History 1,000 mcg/mL injection solution gabapentin 100 mg capsule 100 - 200 mg PO BEDTIME PRN 08/09/22 08/09/22 Unknown History Insomnia galcanezumab-gnlm 120 mg/mL 120 mg subcut QMONTH 08/09/22 08/09/22 Unknown History subcutaneous pen injector (Emgality Pen) multivitamin 1 tab PO DAILY 08/09/22 08/09/22 Unknown History rimegepant 75 mg disintegrating 75 mg PO DAILY PRN Migraine 08/09/22 08/09/22 Unknown History tablet (Nurtec ODT) Headache sucralfate 100 mg/mL oral 10 ml PO QID 08/09/22 08/09/22 Unknown History suspension vortioxetine 20 mg tablet 20 mg PO DAILY 08/09/22 08/09/22 Unknown History (Trintellix) Assessment and Plan Assessment Anesthesia Assessment: Chart Reviewed Final Anesthetic Review NPO: Yes ASA Class: II Final Preanesthetic Review: No Changes in Pt Med Stat, Meds/Allgs Chart Reviewed, Consent Obtained/Reviewed and Anes Risks/Benef Reviewed Patient Risk: Intermediate Procedure Risk: Intermediate Anesthetic Plan Anesthetic Plan: GA Disposition: Standard PACU
--- NOTE | 2022-08-13 12:44 | MHC.SHP ---
Pre-Procedural Eval Section A Date of Service: 08/13/22 The patient is an INPATIENT: Yes The History & Physical has been completed within 30 days and I have reviewed it.: Yes Section B Chief Complaint: Diaphragmatic hernia without obstruction Relevant Family History (Specify if Yes): No Relevant Social History: None Present Medications: None Medical History: No relevant PMH History of Previous Operations: Relevant previous surgery/procedure and date(s) (open gastric bypass, lap band) Allergies: Allergies Allergy/AdvReac Type Severity Reaction Status Date / Time No Known Allergies Allergy Unknown Verified 08/09/22 09:54 Review of Systems Sugical H&P ROS: Negative: Constitution, Cardiovascular, Respiratory, Neurological, Psychiatric, Hem-Onc, Allergic/Immunologic, Gastrointestinal, Genitourinary, Musculoskeletal, Integumentary, Endocrine and Eyes/Ears/Nose/Throat Exam Surgical H&P Exam: Normal: HEENT, Normal: Heart, Normal: Lungs, Normal: Extremities, Normal: Abdomen, Normal: Skin and Normal: Neurological Plan Diagnosis/Plan: Unchanged I have reviewed the history and physical and performed a pertinent physical examination on my patient. No changes have occurred unless specified. Time Spent With Patient Time: Total time managing care of this patient today ____ minutes.
[2022-08-16 12:31] LABS: COVID-19 Test Negative (Negative); IDNOW Serial# 9DB6401D
[2022-08-17] VITALS (8 sets, daily range): BP systolic 119–143; BP diastolic 68–83; PULSE 69–84; RESP 14–18; TEMP 36–36.4; O2SAT 95–99
--- NOTE | ~2022-08-17 | XR_ITS ---
EXAMINATION: XR CHEST CLINICAL INFORMATION: Post op. Pleural space entered. COMPARISON: None available. TECHNIQUE: Frontal view of the chest was obtained. FINDINGS: There is a [id number] left pneumothorax. There is bilateral neck and chest wall subcutaneous emphysema. There is postoperative free air under the right hemidiaphragm. The cardiac and mediastinal contours are normal. The right lung is clear. No pleural effusion. XR/XR chest 1V IMPRESSION: Accowqxy-on-zcgkf left pneumothorax. Bilateral neck and chest wall subcutaneous emphysema. Postoperative free air. Findings were communicated to the PACU nurse Damon Ta by telephone on 08/17/2022 at 5:15 PM.
--- NOTE | ~2022-08-17 | XR_ITS ---
EXAMINATION: XR CHEST CLINICAL INFORMATION: Postoperative day 1 COMPARISON: 08/17/2022 TECHNIQUE: 2 views of the chest were obtained. FINDINGS: The lungs are well expanded. Diffuse subcutaneous emphysema along the chest wall into the neck. This appears decreased from previous. Persistent free intraperitoneal air. Multiple surgical clips of the upper abdomen. There is no consolidation. Small left apical pneumothorax is suspected to remain. This is significantly improved from prior. Mild blunting at the left costophrenic angle. No edema. The cardiomediastinal silhouette is within normal limits. XR/XR chest 2V IMPRESSION: 1. Small left apical pneumothorax is suspected to remain. This is significantly improved from prior. 2. Persistent free intraperitoneal air. 3. Diffuse subcutaneous emphysema, appearing decreased from prior.
--- OUTSIDE RECORDS SUMMARY | 2022-08-17 08:17 | XMS_ITS | Continuity of Care Document ---
Author Name Unknown Organization [facility] Address [address] [place] [address]- Care Team Providers Care Film Processor Name Role Phone Eran [employer], uSe Dahl Primary Care Physician Encounter [facility] Date(s): 05/06/21 - 06/05/21 [facility] Adult [address] [place] [address]- Allergies, Adverse Reactions, Alerts Substance Reaction Severity Status Dust Allergy to pollen Active Pollen seasonal allergies respiratory symptoms Active Incruse Ellipta 1 lightheaded and migraine Active 1dizzy Immunizations Given and Recorded Vaccine Date Status Refusal Reason SARS-CoV-2 mRNA ([id number]) vax 05/01/21 Recorded influenza virus vaccine, inactivated 12/11/20 Give n influenza virus vaccine, inactivated 12/02/19 Give n influenza virus vaccine, inactivated 11/21/18 Give n influenza virus vaccine, inactivated 1 12/06/17 Gi vickie influenza virus vaccine, inactivated 2 12/21/16 Gi vickie influenza virus vaccine, inactivated 12/31/15 Give n influenza virus vaccine, inactivated 01/22/15 Jose Carlos rded influenza virus vaccine, inactivated 12/13/13 Give n influenza virus vaccine, inactivated 12/10/12 Give n influenza virus vaccine, inactivated 02/08/11 Give n zoster vaccine, inactivated 11/03/20 Recorded zoster vaccine, inactivated 08/10/20 Recorded SARS-CoV-2 (COVID-19) mRNA BNT-162b2 vac 04/09/20 Recorded SARS-CoV-2 (COVID-19) mRNA BNT-162b2 vac 03/19/20 Recorded Hepatitis A Adult Vaccine 10/17/16 Given hepatitis B adult vaccine 3 06/10/15 Given hepatitis B adult vaccine 08/11/14 Given hepatitis B adult vaccine 07/09/14 Given pneumococcal 23-valent vaccine 08/19/13 Given tetanus/diphtheria/pertussis, acel(Tdap) 11/28/11 Given FluLaval (oldterm) 11/28/11 Given Influenza Virus Vaccine (oldterm) 4 03/24/09 Given Influenza Virus Vaccine (oldterm) 01/04/07 Given Influenza Inactive (IM) (oldterm) 5 12/25/07 Given tetanus-diphtheria toxoids (Td) 08/03/05 Given 1Result Comment: [12/07/2017] [address]-85 2Result Comment: [12/21/2016] [facility]: 50434-087-11 3Result Comment: [06/10/2015] #3 4Admin Note: per pt 5Admin Note: given in clinic Medications Abilify 10 mg oral tablet 10 mg, 1, tablet, By Mouth, Daily, # 30 tablet, Refills 0, Maintenance, 01/06/21 8:08:00 EDT, Partial fill upon patient request if the prescription is for a schedule II opioid drug. Start Date: 01/06/21 Status: Ordered acarbose 25 mg oral tablet 1 tablet = 25 mg, By Mouth, 3 times a day, Take 1 tab (plus 1 50mg tab), 3 times daily with meals.,# 270 tablet, 3 Refills, Maintenance, 02/03/21 8:34:00 EST, Tablet, [facility], Partial fill upon patient request if the prescript... Start Date: 02/03/21 Status: Ordered acarbose 50 mg oral tablet 1 tablet = 50 mg, By Mouth, 3 times a day, Take 1 tab (plus 1 25mg tab), 3 times daily with meals.,# 270 tablet, 3 Refills, Maintenance, 02/03/21 8:34:00 EST, Tablet, [facility], Partial fill upon patient request if the prescript... Start Date: 02/03/21 Status: Ordered Baqsimi One Pack 3 mg nasal powder See Instructions, 3 mg Once intrasnasally for severe hypoglycemia, # 2 each, 3 Refills, Soft Stop, 08/28/20 10:36:00 EDT, [facility], Partial fill upon patient request if the prescription is for a schedule II opioid drug., 158.02,... Start Date: 08/28/20 Status: Ordered Carafate 1 gm/10 ml oral suspension 0 Refills, Maintenance, 11/13/20 9:09:00 EDT, Partial fill upon patient request if the prescriptionis for a schedule II opioid drug. Start Date: 11/13/20 Status: Ordered cholestyramine 4 gm/5 gm oral powder for reconstitution 1 pack/packet, By Mouth, Daily, # 30 pack/packet, 5 Refills, Maintenance, 03/03/21 16:42:00 EST, REC Powder, [facility], Partial fill upon patient request if the prescription is for a schedule II opioid drug., 158.02, cm, 02/03/21... Start Date: 03/03/21 Stop Date: 08/30/21 Status: Ordered clonazePAM 1 mg oral tablet 0 Refills, Maintenance, 01/15/21 7:15:00 EST, Partial fill upon patient request if the prescriptionis for a schedule II opioid drug. Start Date: 01/15/21 Status: Ordered cyanocobalamin 1000 mcg/ml injectable solution See Instructions, INJECT 1ml SUBCUTANEOUSLY ONCE A WEEK FOR EIGHT WEEKS then once a month there after per PCP, # 30 mL, 1 Refills, [facility], 158, cm, 04/09/21 8:13:00 EST, Height, 80.6, kg, 03/08/21 12:18:00 EST, Dry Weight Start Date: 04/30/21 Status: Ordered Dexilant 60 mg oral delayed release capsule 1 capsule = 60 mg, By Mouth, 2 times a day, 30 min before meal, # 60 capsule, 5 Refills, Maintenance, 04/16/21 14:29:00 EST, CR Capsule, [facility], Partial fill upon patient request if the prescription is for a schedule II opioi... Start Date: 04/16/21 Status: Ordered Emgality Prefilled Pen 120 mg/mL subcutaneous solution = 240 mg, Subcutaneous Injection, Once, Loading Dose, # 2 kit, 0 Refills, Soft Stop, 03/16/21 16:05:00 EST, [facility], Partial fill upon patient request if the prescription is for a schedule II opioid drug., 158, cm, 03/11/21 9:1... Start Date: 03/16/21 Status: Ordered EPINEPHrine 1 mg/mL injectable solution 0.3 mL = 0.3 mg, Intramuscular, Once, # 1 mL, 1 Refills, Soft Stop, 03/08/21 15:07:00 EST, Solution, [facility], Partial fill upon patient request if the prescription is for a schedule II opioid drug., 158, cm, 03/08/21 12:18:00 E... Start Date: 03/08/21 Status: Ordered famotidine 40 mg oral tablet 1 tablet = 40 mg, By Mouth, Daily at bedtime, # 30 tablet, 0 Refills, Maintenance, 11/03/20 7:24:00EDT, Tablet, Partial fill upon patient request if the prescription is for a schedule II opioid drug. Start Date: 11/03/20 Status: Ordered Freestyle Lite Lancets See Instructions, # 100 each, Refills 11, Tot. Refills 11, Maintenance, Use lancets to check blood glucose up to 3x a day. E11.9, 11/17/20 17:16:00 EDT, Supply, 158.02, cm, 11/13/20 8:38:00 EDT, Height, 67, kg, 09/11/19 11:20:00 EDT, Dry Weight Start Date: 11/17/20 Status: Ordered Freestyle Lite Monitor See Instructions, # 1 each, Refills 0, Tot. Refills 0, Maintenance, Use glucose meter to check blood glucose up to 3x a day. E11.9, 07/11/19 12:58:00 EDT, Supply, 160, cm, 07/08/19 13:03:00 EDT, Height, 56.5, kg, 05/29/19 13:36:00 EDT, Dry Weight Start Date: 07/11/19 Status: Ordered Freestyle Lite Test Strips See Instructions, # 90 each, Refills 11, Tot. Refills 11, Maintenance, Use test strips to check blood glucose up to 3x a day, E11.9, 08/28/20 10:19:00 EDT, Supply, 158.02, cm, 08/27/20 9:27:00 EDT, Height, 67, kg, 09/11/19 11:20:00 EDT, Dry Weight Start Date: 08/28/20 Status: Ordered Glucagon Emergency Kit for Low Blood Sugar 1 mg injection See Instructions, INJECT DIRECTED FOR SEVERE low blood sugar,, # 1 each, 1 Refills, Soft Stop, 11/20/19 11:59:00 EDT, [facility], 160.02, cm, 11/15/19 10:05:00 EDT, Height, 67, kg, 09/11/19 11:20:00 EDT, Dry Weight Start Date: 11/20/19 Status: Ordered Lidocaine Viscous 2% solution 5 mL = 0.1 Gm, By Mouth, 4 times a day, PRN for epigastric pain, # 200 mL, 1 Refills, Maintenance, 04/06/21 9:45:00 EST, Solution, [facility], Partial fill upon patient request if the prescription is for a schedule II opioid drug.... Start Date: 04/06/21 Status: Ordered loratadine 10 mg oral tablet 10 mg, 1, tablet, By Mouth, Daily, # 90 tablet, Refills 0, Tot. Refills 0, Maintenance, 05/24/21 11:12:00 EDT, Route to Pharmacy Electronically, [facility], 158, cm, 05/14/21 7:52:00 EST, Height, 80.6, kg, 03/08/21 12:18:00 EST, D... Start Date: 05/24/21 Status: Ordered meclizine 25 mg oral tablet See Instructions, PRN for dizziness, Take 1 tablet every 8 hours as needed for dizziness, # 15 tablet, 0 Refills, Maintenance, 11/03/20 7:49:00 EDT, Tablet, [facility], Partial fill upon patient request if the prescription is for... Start Date: 11/03/20 Status: Ordered montelukast 10 mg oral tablet 10 mg, 1, tablet, By Mouth, Daily in PM, # 90 tablet, Refills 1, Tot. Refills 1, Maintenance, 04/23/21 12:32:00 EST, Route to Pharmacy Electronically, [facility], 158, cm, 04/09/21 8:13:00 EST, Height, 80.6, kg, 03/08/21 12:18:00... Start Date: 04/23/21 Status: Ordered Nurtec ODT 75 mg oral tablet, disintegrating 1 tablet = 75 mg, By Mouth, Every 24 hours, PRN as needed for migraine headache, not to exceed 75 mg in 24 hours. no refill in nder 30 days, # 8 tablet, 6 Refills, Maintenance, 12/10/20 12:36:00 EDT,DIS Tablet, [facility], has t... Start Date: 12/10/20 Stop Date: 07/08/21 Status: Ordered Hilda 0.65% nasal spray 2 sprays, Nares, Both, 4 times a day, # 1 each, 3 Refills, Maintenance, 05/14/21 11:40:00 EST, [facility], Partial fill upon patient request if the prescription is for a scheduleII opioid drug., 2 sprays Nares, Both 4 times a day... Start Date: 05/14/21 Status: Ordered ProAir HFA 90 mcg/inh inhalation aerosol with adapter 2, puffs, Inhalation, Every 4 hours, PRN, # 8.5 Gm, Refills 1, Tot. Refills 1, Maintenance, 05/13/21 19:25:00 EST, Aerosol, Route to Pharmacy Electronically, NCPDP_[id number], [facility], 158, cm, 05/06/21 6:58:00 EST, Height, 80.... Start Date: 05/13/21 Status: Ordered Reclast = 5 mg, IV Infusion, Once, 0 Refills, Maintenance, 11/06/20 10:24:00 EDT, administered at [facility] 10/2020 Start Date: 11/06/20 Status: Ordered SQ syringe and needle to administer 1cc B12 per PCP SQ syringe and needle to administer 1cc B12 per PCP, See Instructions, # 20 each, Refills 1, Tot. Refills 1, Maintenance, SQ once a week x 8 weeks then once a month there after per PCP, 01/06/21 13:41:00 EDT, Supply, 158.02, cm, 01/06/21 8:03:00 EDT,... Start Date: 01/06/21 Status: Ordered Symbicort 160mcg/4.5mcg Inhaler 2, puffs, Inhalation, 2 times a day, with spacer., # 10.2 Gm, Refills 11, Route to Pharmacy Electronically, NCPDP_[id number], [facility], 158.02, cm, 11/13/20 8:38:00 EDT, Height, 67, kg, 09/11/19 11:20:00 EDT, Dry Weight Start Date: 11/20/20 Status: Ordered Trulicity Pen Subcutaneous Infusion, 0 Refills, Maintenance, 04/09/21 8:52:00 EST Start Date: 04/09/21 Status: Ordered Problem List Condition Effective Dates Status Health Status Inform ant Allergic rhinitis(Confirmed) Active Asthma(Confirmed) 1, 2 Active B12 deficiency(Confirmed) Active Bipolar disorder NOS(Confirmed) Active Cervical radiculopathy = MR*I(Confirmed) Active Chronic diarrhea(Confirmed) Active Chronic sinusitis sx September 2019(Confirmed) Active COVID-19 Feb 06 2021MAB Feb(Confirmed) Active EKG abnormality qs v1 chronic(Confirmed) Active Multiple environmental aller gies immujnotherapy(Confirmed) Active Esophageal reflux (GERD) egd 2017(Confirmed) Active Anxiety disorder(Confirmed) Active Genital herpes(Confirmed) 3 06/18/15 Active H/O laparoscopic adjustable gastric banding Feb 2021(Confirmed) 4 Active History of cholecystectomy(Confirmed) 04/10/17 Active Hypoglycemia(Confirmed) 5, 6, 7 Active Irregular menses(Confirmed) 8 Active Spondylosis of lumbar spine MRI 2017 sx 2018(Confirmed) Active Adnexal mass(Confirmed) Active Headache, classical migraine(Confirmed) Active Migraines(Confirmed) 9, 10 Active Obese class I(Confirmed) Active Obesity(Confirmed) Active Orthostatic hypotension(Confirmed) Active Osteoporosis REclast Oct/ Endocrinology(Confirmed) 07/03/20 Active Ovarian cyst(Confirmed) 11 Active Leg paresthesia(Confirmed) 07/24/17 Active Personal history of gastric bypass ? 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 Impingement syndrome of shoulder(Confirmed) 17 Active Fatty liver(Confirmed) 18, 19, 20 10/09/16 Active Vitamin D deficiency(Confirmed) Active 1resolved after weight loss 2chronic perst 3gyn [id number] 5testing negative insulinoma 6likley dumping sydrome 7abnormal GTT ;sugar 36 two hours into test 8sees gi 9normal CT brain 10new 115.3 cm,right per ct scan recent;seeing gynecology soon;they will review 12vit d deficiency;correct [id number] 14per endocrinology monitor 15correction refer GTT; 2 hour glucose 36 16refer GGT 17seeing ortho;pre op 18asma,ama neg/cerulopalsmain wnl,AAT wnl 19Negative hep A antibody positive hep B surface antibody negative antigen negative hep C, normal ferritin 20ukltrasound Social History Social History Type Response Smoking Status Never smoker entered on: 02/20/13 Sex
--- OUTSIDE RECORDS SUMMARY | 2022-08-17 08:18 | XMS_ITS | Continuity of Care Document ---
Author Name Unknown Organization [facility] Nikita Oswaldo Address [address] [place] [address]- Care Team Providers Care Clinical Nursing Manager Name Role Phone Eran GROUNDS PERSON, Sue Dahl Primary Care Physician [phone] [facility]counter [facility] Date(s): 12/24/21 - 12/31/21 [facility] Adult [address] [place] [address]- Encounter Diagnosis Encounter for annual wellness exam in Medicare patient(Discharge Diagnosis) - 12/23/21 Asthma, mild persistent(Discharge Diagnosis) - 12/24/21 B12 deficiency(Discharge Diagnosis) - 12/24/21 Bipolar disorder NOS(Discharge Diagnosis) - 12/24/21 Esophageal reflux (GERD) egd 2017(Discharge Diagnosis) - 12/24/21 Fatty liver(Discharge Diagnosis) - 12/24/21 Hypoglycemia(Discharge Diagnosis) - 12/24/21 Migraines(Discharge Diagnosis) - 12/24/21 Vitamin D deficiency(Discharge Diagnosis) - 12/24/21 Osteoporosis REclast Oct 2020/ Endocrinology(Discharge Diagnosis) - 12/24/21 Attending Physician: Not on Staff, Attending MD Allergies, Adverse Reactions, Alerts Substance Reaction Severity Status Dust Allergy to pollen Active Pollen seasonal allergies respiratory symptoms Active Incruse Ellipta 1 lightheaded and migraine Active 1dizzy Immunizations Given and Recorded Vaccine Date Status Refusal Reason [id number] 12y+ bivalent booster vax 1 12/24/21 Given influenza virus vaccine, inactivated 2 12/24/21 Gi vickie influenza virus vaccine, inactivated 12/11/20 Give n influenza virus vaccine, inactivated 12/02/19 Give n influenza virus vaccine, inactivated 11/21/18 Give n influenza virus vaccine, inactivated 3 12/06/17 Gi vickie influenza virus vaccine, inactivated 4 12/21/16 Gi vickie influenza virus vaccine, inactivated 12/31/15 Give n influenza virus vaccine, inactivated 01/22/15 Jose Carlos rded influenza virus vaccine, inactivated 12/13/13 Give n influenza virus vaccine, inactivated 12/10/12 Give n influenza virus vaccine, inactivated 02/08/11 Give n SARS-CoV-2 mRNA ([id number]) vax 05/01/21 Recorded zoster vaccine, inactivated 11/03/20 Recorded zoster vaccine, inactivated 08/10/20 Recorded SARS-CoV-2 (COVID-19) mRNA BNT-162b2 vac 04/09/20 Recorded SARS-CoV-2 (COVID-19) mRNA BNT-162b2 vac 03/19/20 Recorded Hepatitis A Adult Vaccine 10/17/16 Given hepatitis B adult vaccine 5 06/10/15 Given hepatitis B adult vaccine 08/11/14 Given hepatitis B adult vaccine 07/09/14 Given pneumococcal 23-valent vaccine 08/19/13 Given tetanus/diphtheria/pertussis, acel(Tdap) 11/28/11 Given FluLaval (oldterm) 11/28/11 Given Influenza Virus Vaccine (oldterm) 6 03/24/09 Given Influenza Virus Vaccine (oldterm) 01/04/07 Given Influenza Inactive (IM) (oldterm) 7 12/25/07 Given tetanus-diphtheria toxoids (Td) 08/03/05 Given 1Result Comment: [id number] 2Result Comment: [id number] 3Result Comment: [12/07/2017] [id number] 4Result Comment: [12/21/2016] [facility]: [id number] 5Result Comment: [06/10/2015] #3 6Admin Note: per pt 7Admin Note: given in clinic Medications acarbose 25 mg oral tablet See Instructions, 1 tablet with 50 mg (total 75 mg) By Mouth before lunch, # 30 each, 11 Refills, Maintenance, 11/03/21 8:24:00 EDT, Tablet, [facility], 158, cm, 11/03/21 8:01:00EDT, Height, 71.5, kg, 09/01/21 16:21:00 EDT, Dry W... Start Date: 11/03/21 Status: Ordered acarbose 50 mg oral tablet See Instructions, 1 tablet with 25 mg (total 75 mg) By Mouth before lunch, # 30 each, 11 Refills, Maintenance, 11/03/21 8:23:00 EDT, Tablet, [facility], Partial fill upon patientrequest if the prescription is for a schedule II op... Start Date: 11/03/21 Status: Ordered acetaminophen 500 mg oral tablet 2 tablet = 1,000 mg, By Mouth, Every 6 hours, PRN as needed for fever, # 200 tablet, 0 Refills, Maintenance, 12/03/21 10:17:00 EDT, Tablet, [facility], Partial fill upon patient request if the prescription is for a schedule II opi... Start Date: 12/03/21 Status: Ordered Albuterol (Eqv-ProAir HFA) 90 mcg/inh inhalation aerosol 2 puffs, Inhalation, Every 4 hours, PRN NEEDED FOR WHEEZING, # 8.5 Gm, 1 Refills, Maintenance, 12/03/21 14:16:00 EDT, [facility], 18, INHALE TWO PUFFS EVERY 4 HOURS NEEDED FOR WHEEZING, 163, cm, 12/03/21 9:39:00 EDT, Height,... Start Date: 12/03/21 Status: Ordered calcium (as citrate)-vitamin D 315 mg-250 intl units oral tablet 2 tablet, By Mouth, 2 times a day, # 120 tablet, 6 Refills, Maintenance, 11/03/21 8:23:00 EDT, Tablet, [facility], 2 tablet By Mouth 2 times a day, 158, cm, 11/03/21 8:01:00 EDT,Height, 71.5, kg, 09/01/21 16:21:00 EDT, Dry Weight Start Date: 11/03/21 Status: Ordered clonazePAM 1 mg oral tablet 0.5 tablet = 0.5 mg, By Mouth, Every 6 hours, PRN Anxiety, 0 Refills, Maintenance, 01/15/21 7:15:00EST, Partial fill upon patient request if the prescription is for a schedule II opioid drug. Start Date: 01/15/21 Status: Ordered clonazePAM 1 mg oral tablet 1 tablet = 1 mg, By Mouth, Daily at bedtime, 0 Refills, Maintenance, 09/01/21 13:56:00 EDT, Tablet,Partial fill upon patient request if the prescription is for a schedule II opioid drug. Start Date: 09/01/21 Status: Ordered Dexilant 60 mg oral delayed release capsule 1 capsule = 60 mg, By Mouth, 2 times a day, 30 min before meal, # 60 capsule, 5 Refills, Maintenance, 11/22/21 9:49:00 EDT, CR Capsule, [facility], Partial fill upon patient request if the prescription is for a schedule II opioid... Start Date: 11/22/21 Status: Ordered Emgality Prefilled Pen 120 mg/mL subcutaneous solution = 120 mg, Subcutaneous Injection, Once, Maintenance Dose, # 1 kit, 6 Refills, Soft Stop, 12/30/21 12:19:00 EDT, [facility], Partial fill upon patient request if the prescription is for a schedule II opioid drug., 163, cm, 12/24/21... Start Date: 12/30/21 Status: Ordered EPINEPHrine 1 mg/mL injectable solution 0.3 mL = 0.3 mg, Intramuscular, Once, # 1 mL, 1 Refills, Soft Stop, 03/08/21 15:07:00 EST, Solution, [facility], Partial fill upon patient [...] glucose up to 3x a day. E11.9, 08/10/21 8:48:00 EDT, Supply, 158, cm, 08/10/21 8:21:00 EDT, Height, 80.6, kg, 03/08/21 12:18:00 EST, Dry Weight Start Date: 08/10/21 Status: Ordered Freestyle Lite Test Strips See Instructions, # 100 each, Refills 11, Tot. Refills 11, Maintenance, Use test strips to check blood glucose up to 3x a day, E11.9, 08/10/21 8:47:00 EDT, Supply, 158, cm, 08/10/21 8:21:00 EDT, Height, 80.6, kg, 03/08/21 12:18:00 EST, Dry Weight Start Date: 08/10/21 Status: Ordered gabapentin 300 mg oral capsule 300 mg, 1, capsule, By Mouth, Daily at bedtime, Refills 0, Maintenance, 07/13/21 12:26:00 EDT Start Date: 07/13/21 Status: Ordered loratadine 10 mg oral tablet 10 mg, 1, tablet, By Mouth, Daily, # 90 tablet, Refills 0, Tot. Refills 0, Maintenance, 11/15/21 10:56:00 EDT, Route to Pharmacy Electronically, [facility], 158, cm, 11/03/21 8:01:00 EDT, Height, 71.5, kg, 09/01/21 16:21:00 EDTMark Start Date: 11/15/21 Status: Ordered montelukast 10 mg oral tablet 1, tablet, By Mouth, Daily in PM, # 90 tablet, Refills 1, Tot. Refills 1, Maintenance, 11/14/21 11:28:00 EDT, Route to Pharmacy Electronically, [facility], 158, cm, 11/03/21 8:01:00 EDT, Height, 71.5, kg, 09/01/21 16:21:00 EDT, Dr... Start Date: 11/14/21 Status: Ordered Nurtec ODT 75 mg oral tablet, disintegrating See Instructions, TAKE ONE TABLET DAILY NEEDED FOR migraines, DO NOT EXCEED ONE TABLET IN 24 HOURS, # 8 tablet, 6 Refills, Maintenance, 12/28/21 15:14:00 EDT, [facility], 163,cm, 12/24/21 8:20:00 EDT, Height, 67, kg, 11/26/21... Start Date: 12/28/21 Status: Ordered Reclast = 5 mg, IV Infusion, Once, 0 Refills, Maintenance, 11/06/20 10:24:00 EDT, administered at [facility] 10/2020 Start Date: 11/06/20 Status: Ordered SQ [...] 2, puffs, Inhalation, 2 times a day, rinse mouth and throat after use, # 10.2 Gm, Refills 3, Tot. Refills 3, Maintenance, 11/23/21 19:57:00 EDT, Route to Pharmacy Electronically, NCPDP_[id number], [facility], 158, cm, 11/03/21 8:0... Start Date: 11/23/21 Status: Ordered Trintellix 10 mg oral tablet 1 tablet = 10 mg, By Mouth, Daily, # 30 tablet, 0 Refills, Maintenance, 08/13/21 13:07:00 EDT, Tablet Start Date: 08/13/21 Status: Ordered ZyrTEC 10 mg oral tablet 1 tablet = 10 mg, By Mouth, Daily, Replaces Claritin. Can give 90 day supply, # 30 tablet, 5 Refills, Maintenance, 12/10/21 9:44:00 EDT, Tablet, [facility], Partial fill upon patient request if the prescription is for a schedule... Start Date: 12/10/21 Status: Ordered Problem List Condition Confirmation Course Effective Dates Status H ealth Status Informant Allergic rhinitis Confirmed Active B12 deficiency Confirmed Active Bipolar disorder NOS Confirmed Active Cervical radiculopathy = MR*I Confirmed Active Chronic sinusitis sx September 2019 Confirmed Active COVID-19 Feb 06 2021MAB Feb Confirmed Active EKG abnormality qs v1 chronic Confirmed Active Multiple environmental allergies immujnotherapy Confirmed Active Esophageal reflux (GERD) egd 2017 Confirmed Active Anxiety disorder Confirmed Active Genital herpes 1 Confirmed 06/18/15 Active H/O laparoscopic adjustable gastric banding Feb 2021 2 Confirmed Active History of cholecystectomy Confirmed 04/10/17 Active Hypoglycemia 3, 4, 5 Confirmed Active Irregular menses 6 Confirmed Active Spondylosis of lumbar spine MRI 2017 sx 2018 Confirmed Active Adnexal mass Confirmed Active Migraines 7, 8 Confirmed Active Asthma, mild persistent 9, 10 Confirmed Active Orthostatic hypotension Confirmed Active Osteoporosis REclast Oct 2020/ Endocrinology Confirmed 07/03/20 Active Ovarian cyst 11 Confirmed Active Leg paresthesia Confirmed 07/24/17 Active Personal history of gastric bypass ? 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, 15, 16 Confirmed Active Impingement syndrome of shoulder 17 Confirmed Active Fatty liver 18, 19, 20 Confirmed 10/09/16 Active Vitamin D deficiency Confirmed Active 1gyn [id number] 3testing negative insulinoma 4likley dumping sydrome 5abnormal GTT ;sugar 36 two hours into test 6sees gi 7normal CT brain 8new 9resolved after weight loss 10chronic perst 115.3 cm,right per ct scan recent;seeing gynecology soon;they will review 12vit d deficiency;correct [id number] 14per endocrinology monitor 15correction refer GTT; 2 hour glucose 36 16refer GGT 17seeing ortho;pre op 18asma,ama neg/cerulopalsmain wnl,AAT wnl 19Negative hep A antibody positive hep B surface antibody negative antigen negative hep C, normal ferritin 20ukltrasound Diagnosis Diagnosis Type Effective Dates Health Status Clinical Service Informant Encounter for annual wellness exam in Medicare patient Discharge Diagnosis 12/23/21 Asthma, mild persistent Discharge Diagnosis 12/24/21 B12 deficiency Discharge Diagnosis 12/24/21 Bipolar disorder NOS Discharge Diagnosis 12/24/21 Esophageal reflux (GERD) egd 2017 Discharge Diagnosis 12/24/21 Fatty liver Discharge Diagnosis 12/24/21 Hypoglycemia Discharge Diagnosis 12/24/21 Migraines Discharge Diagnosis 12/24/21 Vitamin D deficiency Discharge Diagnosis 12/24/21 Osteoporosis REclast Oct 2020/ Endocrinology Discharge Diagnosis 12/24/21 Vital Signs Most recent to oldest [Reference Range]: 1 Height 163 cm (12/24/21 8:20 AM) Weight 66.6 kg (12/24/21 8:20 AM) Oxygen Saturation [94-100 %] 98 % (12/24/21 8:20 AM) Pulse Rate [55-90 bpm] 78 bpm (12/24/21 8:20 AM) Body Mass Index [18.5-24.99 kg/m2] 25.07 kg/m2 *H* (12/24/21 8:20 AM) Blood Pressure [90-138/55-84 mm Hg] 108/ 68mm Hg (12/24/21 8:20 AM) Mode of Delivery (Oxygen) Room air (12/24/21 8:20 AM) Blood pressure sites Arm, left (12/24/21 8:20 AM) Weight Obtained Via Standing scale (12/24/21 8:20 AM) Social History Social History Type Response Smoking Status Never smoker entered on: 02/20/13 Sex Patient Care team information Personnel Name: Sue Barillas NP Address: Address: [address] [place] [id number]
--- OUTSIDE RECORDS SUMMARY | 2022-08-17 08:18 | XMS_ITS | Continuity of Care Document ---
Author Name Unknown Organization [facility] Oswaldo Address [address] [place] [address]- Care Team Providers Care Nps Name Role Phone Eran WELDING MACHINE OPERATOR ELECTROSLAG, Sue Dahl Primary Care Physician [facility] Date[facility]): 03/10/20 - 04/09/20 [facility] Adult [address] [place] [address]- Allergies, Adverse Reactions, Alerts Substance Reaction Severity Status Dust Allergy to pollen Active Pollen seasonal allergies respiratory symptoms Active Incruse Ellipta 1 lightheaded and migraine Active 1dizzy Immunizations Given and Recorded Vaccine Date Status Refusal Reason influenza virus vaccine, inactivated 12/02/19 Give n [...] influenza virus vaccine, inactivated 02/08/11 Give n Hepatitis A Adult Vaccine 10/17/16 Given hepatitis [...] toxoids (Td) 08/03/05 Given 1Result Comment: [12/07/2017] [address]-21 2Result Comment: [12/21/2016] [facility]: 05238-697-13 3Result Comment: [06/10/2015] #3 4Admin Note: per pt 5Admin Note: given in clinic Medications Aerochamber See Instructions, # 1 each, Refills 11, Tot. Refills 11, Maintenance, use with MDI, 07/08/19 13:37:00 EDT, Supply, 160, cm, 07/08/19 13:03:00 EDT, Height, 56.5, kg, 05/29/19 13:36:00 EDT, Dry Weight Start Date: 07/08/19 Status: Ordered albuterol 0.083% inhalation solution 3 mL = 2.5 mg, Inhalation, Every 6 hours, PRN for wheezing, Use in nebulizer machine as directed, #25 each, 0 Refills, Maintenance, 07/03/19 13:59:00 EDT, Solution, [facility], 160, cm, 05/29/19 13:36:00 EDT, Height, 56.5, kg, 03... Start Date: 07/03/19 Status: Ordered amitriptyline 25 mg oral tablet 25 mg, 1, tablet, By Mouth, Daily at bedtime, # 30 tablet, Refills 5, Tot. Refills 5, Maintenance, 03/18/20 10:49:00 EST, Route to Pharmacy Electronically, [facility], 160.02, cm, 03/18/20 7:48:00 EST, Height, 67, kg, 09/11/19 11:... Start Date: 03/18/20 Status: Ordered buPROPion 300 mg/24 hours (XL) oral tablet, extended release 1 tablet = 300 mg, By Mouth, Daily in AM, 0 Refills, Maintenance, 09/03/19 12:26:00 EDT Start Date: 09/03/19 Status: Ordered Dexilant 60 mg oral delayed release capsule 1 capsule = 60 mg, By Mouth, 2 times a day, # 60 capsule, 5 Refills, Maintenance, 12/26/19 12:06:00EDT, [facility], 160.02, cm, 12/02/19 6:45:00 EDT, Height, 67, kg, 09/11/19 11:20:00 EDT, Dry Weight Start Date: 12/26/19 Status: Ordered Freestyle Lite Lancets See Instructions, # 100 each, Refills 11, Tot. Refills 11, Maintenance, Use lancets to check blood glucose up to 3x a day. E11.9, 08/15/19 7:37:00 EDT, Supply, 160, cm, 07/08/19 13:03:00 EDT, Height,56.5, kg, 05/29/19 13:36:00 EDT, Dry Weight Start Date: 08/15/19 Status: Ordered Freestyle Lite Monitor See Instructions, [...] glucose up to 3x a day, E11.9, 07/11/19 12:59:00 EDT, Supply, 160, cm, 07/08/19 13:03:00 EDT, Height, 56.5, kg, 05/29/19 13:36:00 EDT, Dry Weight Start Date: 07/11/19 Status: Ordered Gabapentin = 300 mg, By Mouth, 2 times a day, 0 Refills, Maintenance, 10/21/19 6:53:00 EDT Start Date: 10/21/19 Status: Ordered Glucagon Emergency Kit for Low Blood Sugar 1 mg injection See Instructions, INJECT DIRECTED FOR SEVERE low blood sugar,, # 1 each, 1 Refills, Soft Stop, 11/20/19 11:59:00 EDT, [facility], 160.02, cm, 11/15/19 10:05:00 EDT, Height, 67, kg, 09/11/19 11:20:00 EDT, Dry Weight Start Date: 11/20/19 Status: Ordered KlonoPIN 1 mg oral tablet 1 tablet = 1 mg, By Mouth, Daily at bedtime, 0 Refills, Maintenance, 07/30/15 13:45:25 Start Date: 07/30/15 Status: Ordered Latuda 60 mg oral tablet 1 tablet = 60 mg, By Mouth, Daily at bedtime, # 30 tablet, 0 Refills, Maintenance, 05/24/18 15:34:04 EDT, Tablet Start Date: 05/24/18 Status: Ordered loratadine 10 mg oral tablet 10 mg, 1, tablet, By Mouth, Daily, # 30 tablet, Refills 11, Tot. Refills 11, Maintenance, 02/25/19 16:55:00 EST, Route to Pharmacy Electronically, [facility], 158, cm, 02/14/19 7:55:00 EST, Height, 61.9, kg, 02/12/19 10:17:00... Start Date: 02/25/19 Status: Ordered montelukast 10 mg oral tablet 10 mg, 1, tablet, By Mouth, Daily in PM, # 90 tablet, Refills 3, Tot. Refills 3, Maintenance, 08/15/19 16:21:00 EDT, Route to Pharmacy Electronically, [facility], 160, cm, 08/15/19 13:45:00 EDT, Height, 56.5, kg, 05/29/19 13:36:00... Start Date: 08/15/19 Status: Ordered ondansetron 4 mg oral tablet, disintegrating 1 tablet = 4 mg, By Mouth, Every 8 hours, PRN as needed for nausea/vomiting, # 9 tablet, 0 Refills,Maintenance, 10/06/19 21:07:00 EDT, DIS Tablet, [facility] Start Date: 10/06/19 Stop Date: 10/09/19 Status: Ordered ProAir HFA 90 mcg/inh inhalation aerosol with adapter 2, puffs, Inhalation, Every 4 hours, PRN, # 8.5 Gm, Refills 2, Tot. Refills 2, Maintenance, 04/29/19 11:32:00 EST, Aerosol, Route to Pharmacy Electronically, NCPDP_[id number], [facility], 160, cm, 04/29/19 10:47:00 EST, Height... Start Date: 04/29/19 Status: Ordered Symbicort 160mcg/4.5mcg Inhaler 2, puffs, Inhalation, 2 times a day, use with spacer chamber, # 1 each, Refills 11, Tot. Refills 11, Maintenance, 07/08/19 13:36:00 EDT, Route to Pharmacy Electronically, NCPDP_[id number], [facility], 160, cm, 07/08/19 13:03:00 ED... Start Date: 07/08/19 Status: Ordered Topamax 50 mg oral tablet See Instructions, take 1 tab in am and 2 tab at bedtime. If AM dose causes bad sedation, add to HS dose., # 90 tablet, 6 Refills, Maintenance, 03/12/20 11:09:00 EST, Tablet, [facility], weaning zonegran off by 25mg every 2 days t... Start Date: 03/12/20 Status: Ordered traZODone 100 mg oral tablet 100 mg, 1, tablet, By Mouth, 2 times a day, # 60 tablet, Refills 0, Maintenance, 03/02/20 13:19:00 EST, Partial fill upon patient request if the prescription is for a schedule II opioid drug. Start Date: 03/02/20 Status: Ordered ubrogepant 100 mg oral tablet 1 tablet = 100 mg, By Mouth, Daily, # 10 tablet, 6 Refills, Soft Stop, 03/12/20 11:04:00 EST, [facility], Partial fill upon patient request if the prescription is for a schedule II opioid drug., 160.02, cm, 03/10/20 8:18:00 EST, H... Start Date: 03/12/20 Stop Date: 10/08/20 Status: Ordered Zofran 4 mg oral tablet 1 tablet = 4 mg, By Mouth, Every 8 hours, PRN Nausea & Vomiting, # 30 tablet, 0 Refills, Maintenance, 09/30/19 11:23:00 EDT, [facility], 160.02, cm, 09/24/19 15:31:00 EDT, Height, 67, kg, 09/11/19 11:20:00 EDT, Dry Weight Start Date: 09/30/19 Status: Ordered Problem List Condition Effective Dates Status Health Status Inform ant Allergic rhinitis(Confirmed) Active Asthma(Confirmed) 1, 2 Active B12 deficiency(Confirmed) Active Bipolar disorder NOS(Confirmed) Active Cervical radiculopathy = MR*I(Confirmed) Active Chronic diarrhea(Confirmed) Active Chronic sinusitis sx September 2019(Confirmed) Active Depression(Confirmed) 3 Active Multiple environmental aller gies immujnotherapy(Confirmed) Active Esophageal reflux (GERD) egd 2017(Confirmed) Active Anxiety disorder(Confirmed) Active Genital herpes(Confirmed) 4 06/18/15 Active H/O laparoscopic adjustable gastric banding 2007(Confirmed) 5 Active History of cholecystectomy(Confirmed) 04/10/17 Active Hypoglycemia(Confirmed) 6, 7, 8 Active Irregular menses(Confirmed) 9 Active Spondylosis of lumbar spine MRI 2017 sx 2018(Confirmed) Active Adnexal mass(Confirmed) Active Migraines(Confirmed) 10, 11 Active Orthostatic hypotension(Confirmed) Active Ovarian cyst(Confirmed) 12 Active Leg paresthesia(Confirmed) 07/24/17 Active Personal history of gastric bypass 2003(Confirmed) 13, 14 Active Dumping syndrome(Confirmed) 15, 16, 17 Active Impingement syndrome of shoulder(Confirmed) 18 Active Fatty liver(Confirmed) 19, 20, 21 10/09/16 Active Vitamin D deficiency(Confirmed) Active 1resolved after weight loss 2chronic perst 3folowed by mental health;recent hospitalization 4gyn [id number] 6testing negative insulinoma 7likley dumping sydrome 8abnormal GTT ;sugar 36 two hours into test 9sees gi 10normal CT brain 11new 125.3 cm,right per ct scan recent;seeing gynecology soon;they will review 13vit d deficiency;correct [id number] 15per endocrinology monitor 16correction refer GTT; 2 hour glucose 36 17refer GGT 18seeing ortho;pre op 19asma,ama neg/cerulopalsmain wnl,AAT wnl 20Negative hep A antibody positive hep B surface antibody negative antigen negative hep C, normal ferritin 21ukltrasound Social History Social History Type Response Smoking Status Never smoker entered on: 02/20/13 Sex
--- OUTSIDE RECORDS SUMMARY | 2022-08-17 08:18 | XMS_ITS | Continuity of Care Document ---
Author Name Unknown Organization [facility] Address Unknown Care Team Providers Care Crystal Machining Coordinator Name Role Phone Eran Sue JOHNSON Primary Care Physician [place] [facility] [place]21 [facility] Allergies, Adverse Reactions, Alerts Substance Reaction Severity Status Dust Allergy to pollen Active Pollen seasonal allergies respiratory symptoms Active Incruse Ellipta 1 lightheaded and migraine Active 1dizzy Immunizations Given and Recorded Vaccine Date Status Refusal Reason SARS-CoV-2 mRNA (vsymrom-cbro-cehkm) vax 05/01/21 Recorded influenza virus vaccine, inactivated [...] toxoids (Td) 08/03/05 Given 1Result Comment: [12/07/2017] [id number] 2Result Comment: [12/21/2016] [facility]: [id number] 3Result Comment: [06/10/2015] #3 4Admin Note: per pt 5Admin Note: given in clinic Medications acarbose 25 mg oral tablet 1 tablet = 25 mg, By Mouth, 3 times a day, Take 1 tab (plus 1 50mg tab), 3 times daily with meals.,# 270 tablet, 3 Refills, Maintenance, 02/03/21 8:34:00 EST, Tablet, [facility], Partial fill upon patient request if the prescript... Start Date: 02/03/21 Status: Ordered acarbose 50 mg oral tablet 1 tablet = 50 mg, By Mouth, 3 times a day, Take 1 tab (plus 1 25mg tab), 3 times daily with meals.,# 270 tablet, 3 Refills, Maintenance, 02/03/21 8:34:00 EST, Tablet, [facility], Partial fill upon patient request if the prescript... Start Date: 02/03/21 Status: Ordered clonazePAM 1 mg oral tablet [...] opioid drug. Start Date: 09/01/21 Status: Ordered Colace sodium 100 mg oral capsule 100 mg, 1, capsule, By Mouth, 2 times a day, PRN, with plenty of water, # 20 capsule, Refills 1, Tot. Refills 1, Maintenance, for constipation, 08/23/21 8:22:00 EDT, Route to Pharmacy Electronically,[facility], Partial fill upon patient... Start Date: 08/23/21 Status: Ordered Dexilant 60 mg oral delayed release capsule 1 capsule = 60 mg, By Mouth, 2 times a day, 30 min before meal, # 60 capsule, 5 Refills, Maintenance, 04/16/21 14:29:00 EST, CR Capsule, [facility], Partial fill upon patient request if the prescription is for a schedule II opioi... Start Date: 04/16/21 Status: Ordered Emgality Prefilled Pen 120 mg/mL subcutaneous solution = 120 mg, Subcutaneous Injection, Once, Maintenance Dose, # 1 kit, 6 Refills, Soft Stop, 06/29/21 10:09:00 EDT, [facility], Partial fill upon patient request if the prescription is for a schedule II opioid drug., 158, cm, 06/29/21... Start Date: 06/29/21 Status: Ordered EPINEPHrine 1 mg/mL injectable solution 0.3 mL = 0.3 mg, Intramuscular, Once, # 1 mL, 1 Refills, Soft Stop, 03/08/21 15:07:00 EST, Solution, [facility], Partial fill upon patient request [...] 12:26:00 EDT Start Date: 07/13/21 Status: Ordered heparin flush 10 units/mL intravenous solution 5 mL = 50 units, IV Push, Daily, 0 Refills, Maintenance, 09/07/21 14:34:00 EDT, Injection, Partial fill upon patient request if the prescription is for a schedule II opioid drug. Start Date: 09/07/21 Status: Ordered heparin flush 10 units/mL intravenous solution 5 mL = 50 units, IV Push, Every hour, PRN Line/Tube Patency, Post administration of Saline Flush, use 10 mL syringe, Heparin is last med left in line, 0 Refills, Maintenance, 09/07/21 14:34:00 EDT, Injection, Partial fill upon patient request if the p... Start Date: 09/07/21 Status: Ordered loratadine 10 mg oral tablet 10 mg, 1, tablet, By Mouth, Daily, # 90 tablet, Refills 0, Tot. Refills 0, Maintenance, 09/17/21 14:13:00 EDT, Route to Pharmacy Electronically, [facility], 158, cm, 09/16/21 9:43:00 EDT, Height, 71.5, kg, 09/01/21 16:21:00 EDT, D... Start Date: 09/17/21 Status: Ordered meclizine 25 mg oral tablet See Instructions, PRN for dizziness, Take 1 tablet every 8 hours as needed for dizziness, # 15 tablet, 0 Refills, Maintenance, 11/03/20 7:49:00 EDT, Tablet, [facility], Partial fill upon patient request if the prescription is for... Start Date: 11/03/20 Status: Ordered montelukast 10 mg oral tablet 10 mg, 1, tablet, By Mouth, Daily in PM, # 90 tablet, Refills 1, Tot. Refills 1, Maintenance, 04/23/21 12:32:00 EST, Route to Pharmacy Electronically, [facility], 158, cm, 04/09/21 8:13:00 EST, Height, 80.6, kg, 03/08/21 12:18:00... Start Date: 04/23/21 Status: Ordered NaCL 0.9% Flush 5 mL, IV Push, Daily, 0 Refills, Maintenance, 09/07/21 14:37:00 EDT, Injection, Partial fill upon patient request if the prescription is for a schedule II opioid drug. Start Date: 09/07/21 Status: Ordered NaCL 0.9% Flush 5 mL, IV Push, Every hour, PRN Line/Tube Patency, Pre and post medication administration, follow with Heparin Flush, use 10 mL syringe, 0 Refills, Maintenance, 09/07/21 14:37:00 EDT, Injection, Partial fill upon patient request if the prescription is... Start Date: 09/07/21 Status: Ordered Nurtec ODT 75 mg oral tablet, disintegrating 1 tablet = 75 mg, By Mouth, Every 24 hours, PRN as needed for migraine headache, not to exceed 75 mg in 24 hours. no refill in nder 30 days, # 8 tablet, 6 Refills, Maintenance, 12/10/20 12:36:00 EDT,DIS Tablet, [facility], has t... Start Date: 12/10/20 Stop Date: 07/08/21 Status: Ordered Reclast = 5 mg, IV Infusion, Once, 0 Refills, Maintenance, 11/06/20 10:24:00 EDT, administered at [facility] 10/2020 Start Date: 11/06/20 Status: Ordered [...] 8:03:00 EDT,... Start Date: 01/06/21 Status: Ordered Trintellix 10 mg oral tablet 1 tablet = 10 mg, By Mouth, Daily, # 30 tablet, 0 Refills, Maintenance, 08/13/21 13:07:00 EDT, Tablet Start Date: 08/13/21 Status: Ordered Tylenol 325 mg oral tablet 975 mg, 3, tablet, By Mouth, Every 6 hours, Refills 0, Maintenance, 08/23/21 8:22:00 EDT, Partial fill upon patient request if the prescription is for a schedule II opioid drug. Start Date: 08/23/21 Status: Ordered Problem List Condition Effective Dates [...] Spondylosis of lumbar spine MRI 2017 sx 2019 June(Confirmed) Active Adnexal mass(Confirmed) Active Headache, classical migraine(Confirmed) Active Migraines(Confirmed) 9, 10 Active Orthostatic hypotension(Confirmed) Active Osteoporosis REclast Oct/ Endocrinology(Confirmed) 07/03/20 Active Ovarian cyst(Confirmed) 11 Active Leg paresthesia(Confirmed) 07/24/17 Active Personal history of gastric bypass ? 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 Impingement syndrome of shoulder(Confirmed) 17 Active Fatty liver(Confirmed) 18, 19, 20 10/09/16 Active Vitamin D deficiency(Confirmed) Active 1resolved after weight loss 2chronic perst 3gyn 56526 5testing negative insulinoma 6likley dumping sydrome 7abnormal GTT ;sugar 36 two hours into test 8sees gi 9normal CT brain 10new 115.3 cm,right per ct scan recent;seeing gynecology soon;they will review 12vit d deficiency;correct [id number] 14per endocrinology monitor 15correction refer GTT; 2 hour glucose 36 16refer GGT 17seeing ortho;pre op 18asma,ama neg/cerulopalsmain wnl,AAT wnl 19Negative hep A antibody positive hep B surface antibody negative antigen negative hep C, normal ferritin 20ukltrasound Social History Social History Type Response Smoking Status Never smoker entered on: 02/20/13 Sex
--- OUTSIDE RECORDS SUMMARY | 2022-08-17 08:18 | XMS_ITS | Continuity of Care Document ---
Author Name Unknown Organization [facility] Address [address] [place] [address]- Care Team Providers Care Waste Paper Hammermill Operator Name Role Phone Eran PRODUCTION AIDE, Sue Dahl Primary Care Physician [phone] Encounter [facility] Date(s): 04/01/20 - 05/01/20 [facility] [address] [place] [address]- Allergies, Adverse Reactions, Alerts Substance Reaction Severity Status Dust Allergy to pollen Active Pollen seasonal allergies respiratory symptoms Active Incruse Ellipta 1 lightheaded and migraine Active 1dizzy Immunizations Given and Recorded Vaccine Date Status Refusal Reason SARS-CoV-2 (COVID-19) mRNA BNT-162b2 vac 04/09/20 Recorded SARS-CoV-2 (COVID-19) mRNA BNT-162b2 vac 03/19/20 Recorded influenza virus vaccine, inactivated 12/02/19 Give n [...] toxoids (Td) 08/03/05 Given 1Result Comment: [12/07/2017] [id number] 2Result Comment: [12/21/2016] [facility]: [id number] 3Result Comment: [06/10/2015] #3 4Admin Note: per pt 5Admin Note: given in clinic Medications Aerochamber See Instructions, # 1 each, Refills 11, Tot. Refills 11, Maintenance, use with MDI, 07/08/19 13:37:00 EDT, Supply, 160, cm, 07/08/19 13:03:00 EDT, Height, 56.5, kg, 05/29/19 13:36:00 EDT, Dry Weight Start Date: 07/08/19 Status: Ordered Aircast ankle support brace Aircast ankle support brace, See Instructions, # 1 each, Refills 0, Tot. Refills 0, Maintenance, olayinka worn on left ankle DX- ankle sprain, 04/10/20 7:23:00 EST, Supply Start Date: 04/10/20 Status: Ordered albuterol 0.083% inhalation solution 3 mL = 2.5 mg, Inhalation, Every 6 hours, PRN for wheezing, Use in nebulizer machine as directed, #25 each, 0 Refills, Maintenance, 07/03/19 13:59:00 EDT, Solution, [facility], 160, cm, 05/29/19 13:36:00 EDT, Height, 56.5, kg, 03... Start Date: 07/03/19 Status: Ordered amitriptyline 25 mg oral tablet 25 mg, 1, tablet, By Mouth, Daily at bedtime, # 30 tablet, Refills 5, Tot. Refills 5, Maintenance, 03/18/20 10:49:00 EST, Route to Pharmacy Electronically, [facility], 160.02, cm, 03/18/20 7:48:00 EST, Height, 67, kg, 09/11/19 11:... Start Date: 03/18/20 Status: Ordered buPROPion 300 mg/24 hours (XL) oral tablet, extended release 1 tablet = 300 mg, By Mouth, Daily in AM, 0 Refills, Maintenance, 09/03/19 12:26:00 EDT Start Date: 09/03/19 Status: Ordered clotrimazole 10 mg oral lozenge 10 mg, 1, lozenge, By Mouth, 5 times a day, for 7 days, # 35 lozenge, Refills 0, Tot. Refills 0, Acute 05/08/20 9:35:00 EST, 05/01/20 9:35:00 EST, Route to Pharmacy Electronically, [facility], 160.02, cm, 05/01/20 9:18:00 EST, Hei... Start Date: 05/01/20 Stop Date: 05/08/20 Status: Ordered Dexilant 60 mg oral delayed release capsule 1 capsule = 60 mg, By Mouth, 2 times a day, # 60 capsule, 5 Refills, Maintenance, 12/26/19 12:06:00EDT, [facility], 160.02, cm, 12/02/19 6:45:00 EDT, [...] Dry Weight Start Date: 07/11/19 Status: Ordered Glucagon Emergency Kit for Low Blood Sugar 1 mg injection See Instructions, INJECT DIRECTED FOR SEVERE low blood sugar,, # 1 each, 1 Refills, Soft Stop, 11/20/19 11:59:00 EDT, [facility], 160.02, cm, 11/15/19 10:05:00 EDT, Height, 67, kg, 09/11/19 11:20:00 EDT, Dry Weight Start Date: 11/20/19 Status: Ordered Latuda 60 mg oral tablet 1 tablet = 60 mg, By Mouth, Daily at bedtime, # 30 tablet, 0 Refills, Maintenance, 05/24/18 15:34:04 EDT, Tablet Start Date: 05/24/18 Status: Ordered loratadine 10 mg oral tablet 10 mg, 1, tablet, By Mouth, Daily, # 30 tablet, Refills 11, Tot. Refills 11, Maintenance, 02/25/19 16:55:00 EST, Route to Pharmacy Electronically, [facility], 158, cm, 02/14/19 7:55:00 EST, Height, 61.9, kg, 02/12/19 10:17:00... Start Date: 02/25/19 Status: Ordered montelukast 10 mg oral tablet 10 mg, 1, tablet, By Mouth, Daily in PM, # 90 tablet, Refills 3, Tot. Refills 3, Maintenance, 08/15/19 16:21:00 EDT, Route to Pharmacy Electronically, [facility], 160, cm, 08/15/19 13:45:00 EDT, Height, 56.5, kg, 05/29/19 13:36:00... Start Date: 08/15/19 Status: Ordered ondansetron 4 mg oral tablet, disintegrating 1 tablet = 4 mg, By Mouth, Every 8 hours, PRN as needed for nausea/vomiting, # 9 tablet, 0 Refills,Maintenance, 10/06/19 21:07:00 EDT, DIS Tablet, [facility] Start Date: 10/06/19 Stop Date: 10/09/19 Status: Ordered ProAir HFA 90 mcg/inh inhalation aerosol with adapter 2, puffs, Inhalation, Every 4 hours, PRN, # 8.5 Gm, Refills 2, Tot. Refills 2, Maintenance, 04/29/19 11:32:00 EST, Aerosol, Route to Pharmacy Electronically, NCPDP_[id number], [facility], 160, cm, 04/29/19 10:47:00 EST, Height... Start Date: 04/29/19 Status: Ordered Readi-Cat 2 oral suspension See Instructions, drink as per radiology instructions prior to CT scan, # 2 each, 0 Refills, Maintenance, 04/23/20 9:57:00 EST, [id number], Partial fill upon patient request if the prescription is for a schedule II opioid drug., drink... Start Date: 04/23/20 Status: Ordered Symbicort 160mcg/4.5mcg Inhaler 2, puffs, Inhalation, 2 times a day, use with spacer chamber, # 1 each, Refills 11, Tot. Refills 11, Maintenance, 07/08/19 13:36:00 EDT, Route to Pharmacy Electronically, NCPDP_[id number], [facility], 160, cm, 07/08/19 13:03:00 ED... Start Date: 07/08/19 Status: Ordered Topamax 50 mg oral tablet See Instructions, take 1 tab in am and 2 tab at bedtime. If AM dose causes bad sedation, add to HS dose., # 90 tablet, 6 Refills, Maintenance, 03/12/20 11:09:00 EST, Tablet, [facility], weaning zonegran off by 25mg [...] 6 Refills, Soft Stop, 03/12/20 11:04:00 EST, [facility], Partial fill upon patient request if the prescription is for a schedule II opioid drug., 160.02, cm, 03/10/20 8:18:00 EST, H... Start Date: 03/12/20 Stop Date: 10/08/20 Status: Ordered Zofran 4 mg oral tablet 1 tablet = 4 mg, By Mouth, Every 8 hours, PRN Nausea & Vomiting, # 30 tablet, 0 Refills, Maintenance, 09/30/19 11:23:00 EDT, [facility], 160.02, cm, 09/24/19 15:31:00 EDT, [...] Active Ovarian cyst(Confirmed) 12 Active Leg paresthesia(Confirmed) 5/21/18 Active Personal history of gastric bypass 2003(Confirmed) 13, 14 Active Dumping syndrome(Confirmed) 15, 16, 17 Active Impingement syndrome of shoulder(Confirmed) 18 Active Fatty liver(Confirmed) 19, 20, 21 10/09/16 Active Vitamin D deficiency(Confirmed) Active 1resolved after weight loss 2chronic perst 3folowed by mental health;recent hospitalization 4gyn 22293 6testing negative insulinoma 7likley dumping sydrome 8abnormal GTT ;sugar 36 two hours into test 9sees gi 10normal CT brain 11new 125.3 cm,right per ct scan recent;seeing gynecology soon;they will review 13vit d deficiency;correct [id number] 15per endocrinology monitor 16correction refer GTT; 2 hour glucose 36 17refer GGT 18seeing ortho;pre op 19asma,ama neg/cerulopalsmain wnl,AAT wnl 20Negative hep A antibody positive hep B surface antibody negative antigen negative hep C, normal ferritin 21ukltrasound Social History Social History Type Response Smoking Status Never smoker entered on: 02/20/13 Sex
--- OUTSIDE RECORDS SUMMARY | 2022-08-17 08:18 | XMS_ITS | Continuity of Care Document ---
Author Name Unknown Organization [facility] Address [address] [place] [address]- Care Team Providers Care Supervisor Webbing Name Role Phone Eran TANDEM MILL STICKER, Sue Dahl Primary Care Physician [phone] Encounter [facility] Date(s): 05/24/21 - 06/23/21 [facility] [address] [place] [address]- Allergies, Adverse Reactions, Alerts Substance Reaction Severity Status Dust Allergy to pollen Active Pollen seasonal allergies respiratory symptoms Active Incruse Ellipta 1 lightheaded and migraine Active 1dizzy Immunizations Given and Recorded Vaccine Date Status Refusal Reason SARS-CoV-2 mRNA (iykqico-scfs-kuffs) vax 05/01/21 Recorded influenza virus vaccine, inactivated [...] toxoids (Td) 08/03/05 Given 1Result Comment: [12/07/2017] [id number] 2Result Comment: [12/21/2016] [facility]: [id number] 3Result Comment: [06/10/2015] #3 4Admin Note: per [...] 3 Refills, Maintenance, 02/03/21 8:34:00 EST, Tablet, [facility], Partial fill upon patient request if the prescript... Start Date: 02/03/21 Status: Ordered acarbose 50 mg oral tablet 1 tablet = 50 mg, By Mouth, 3 times a day, Take 1 tab (plus 1 25mg tab), 3 times daily with meals.,# 270 tablet, 3 Refills, Maintenance, 02/03/21 8:34:00 EST, Tablet, [facility], Partial fill upon patient request if the prescript... Start Date: 02/03/21 Status: Ordered Baqsimi One Pack 3 mg nasal powder See Instructions, 3 mg Once intrasnasally for severe hypoglycemia, # 2 each, 3 Refills, Soft Stop, 08/28/20 10:36:00 EDT, [facility], Partial fill upon patient request [...] Refills, Maintenance, 03/03/21 16:42:00 EST, REC Powder, [facility], Partial fill upon patient request [...] per PCP, # 30 mL, 1 Refills, [facility], 158, cm, 04/09/21 8:13:00 EST, Height, 80.6, kg, 03/08/21 12:18:00 EST, Dry Weight Start Date: 04/30/21 Status: Ordered Dexilant 60 mg oral delayed release capsule 1 capsule = 60 mg, By Mouth, 2 times a day, 30 min before meal, # 60 capsule, 5 Refills, Maintenance, 04/16/21 14:29:00 EST, CR Capsule, [facility], Partial fill upon patient request if the prescription is for a schedule II opioi... Start Date: 04/16/21 Status: Ordered Emgality Prefilled Pen 120 mg/mL subcutaneous solution = 240 mg, Subcutaneous Injection, Once, Loading Dose, # 2 kit, 0 Refills, Soft Stop, 03/16/21 16:05:00 EST, [facility], Partial fill upon patient request if the prescription is for a schedule II opioid drug., 158, cm, 03/11/21 9:1... Start Date: 03/16/21 Status: Ordered EPINEPHrine 1 mg/mL injectable solution 0.3 mL = 0.3 mg, Intramuscular, Once, # 1 mL, 1 Refills, Soft Stop, 03/08/21 15:07:00 EST, Solution, [facility], Partial fill upon patient request [...] 1 Refills, Soft Stop, 11/20/19 11:59:00 EDT, [facility], 160.02, cm, 11/15/19 10:05:00 EDT, Height, 67, kg, 09/11/19 11:20:00 EDT, Dry Weight Start Date: 11/20/19 Status: Ordered Lidocaine Viscous 2% solution 5 mL = 0.1 Gm, By Mouth, 4 times a day, PRN for epigastric pain, # 200 mL, 1 Refills, Maintenance, 04/06/21 9:45:00 EST, Solution, [facility], Partial fill upon patient request if the prescription is for a schedule II opioid drug.... Start Date: 04/06/21 Status: Ordered loratadine 10 mg oral tablet 10 mg, 1, tablet, By Mouth, Daily, # 90 tablet, Refills 0, Tot. Refills 0, Maintenance, 05/24/21 11:12:00 EDT, Route to Pharmacy Electronically, [facility], 158, cm, 05/14/21 7:52:00 EST, Height, 80.6, kg, 03/08/21 12:18:00 EST, D... Start Date: 05/24/21 Status: Ordered meclizine 25 mg oral tablet See Instructions, PRN for dizziness, Take 1 tablet every 8 hours as needed for dizziness, # 15 tablet, 0 Refills, Maintenance, 11/03/20 7:49:00 EDT, Tablet, [facility], Partial fill upon patient request if the prescription is for... Start Date: 11/03/20 Status: Ordered montelukast 10 mg oral tablet 10 mg, 1, tablet, By Mouth, Daily in PM, # 90 tablet, Refills 1, Tot. Refills 1, Maintenance, 04/23/21 12:32:00 EST, Route to Pharmacy Electronically, [facility], 158, cm, 04/09/21 8:13:00 EST, [...] 6 Refills, Maintenance, 12/10/20 12:36:00 EDT,DIS Tablet, [facility], has t... Start Date: 12/10/20 Stop Date: 07/08/21 Status: Ordered Simpson 0.65% nasal spray 2 sprays, Nares, Both, 4 times a day, # 1 each, 3 Refills, Maintenance, 05/14/21 11:40:00 EST, [facility], Partial fill upon patient request if the prescription is for a scheduleII opioid drug., 2 sprays Nares, Both 4 times a day... Start Date: 05/14/21 Status: Ordered ProAir HFA 90 mcg/inh inhalation aerosol with adapter 2, puffs, Inhalation, Every 4 hours, PRN, # 8.5 Gm, Refills 1, Tot. Refills 1, Maintenance, 05/13/21 19:25:00 EST, Aerosol, Route to Pharmacy Electronically, NCPDP_[id number], [facility], 158, cm, 05/06/21 6:58:00 EST, Height, 80.... Start Date: 05/13/21 Status: Ordered Reclast = 5 mg, IV Infusion, Once, 0 Refills, Maintenance, 11/06/20 10:24:00 EDT, administered at [facility] 10/2020 Start Date: 11/06/20 Status: Ordered [...] Gm, Refills 11, Route to Pharmacy Electronically, NCPDP_[id number], [facility], 158.02, cm, 11/13/20 8:38:00 EDT, [...] 1resolved after weight loss 2chronic perst 3gyn 42653 5testing negative insulinoma 6likley dumping sydrome 7abnormal GTT ;sugar 36 two hours into test 8sees gi 9normal CT brain 10new 115.3 cm,right per ct scan recent;seeing gynecology soon;they will review 12vit d deficiency;correct [id number] 14per endocrinology monitor 15correction refer GTT; 2 hour glucose 36 16refer GGT 17seeing ortho;pre op 18asma,ama neg/cerulopalsmain wnl,AAT wnl 19Negative hep A antibody positive hep B surface antibody negative antigen negative hep C, normal ferritin 20ukltrasound Social History Social History Type Response Smoking Status Never smoker entered on: 02/20/13 Sex
--- OUTSIDE RECORDS SUMMARY | 2022-08-17 08:18 | XMS_ITS | Continuity of Care Document ---
Author Name Unknown Organization [facility] Oswaldo lt Address [address] [place] [address]- Care Team Providers Care Strap Cutter Name Role Phone Louisa LANDRUM, Taras Fuentes Primary Care Physician [facility]counter [facility] Date(s): 03/11/21 - 04/10/21 [facility] Adult [address] [place] [address]- Allergies, Adverse Reactions, Alerts Substance Reaction Severity Status Dust Allergy to pollen Active Pollen seasonal allergies respiratory symptoms Active Incruse Ellipta 1 lightheaded and migraine Active 1dizzy Immunizations Given and Recorded Vaccine Date Status Refusal Reason influenza virus vaccine, inactivated 12/11/20 Give n [...] toxoids (Td) 08/03/05 Given 1Result Comment: [12/07/2017] [address]-98 2Result Comment: [12/21/2016] [facility]: [id number] 3Result Comment: [06/10/2015] #3 4Admin Note: per [...] 3 Refills, Maintenance, 02/03/21 8:34:00 EST, Tablet, [facility], Partial fill upon patient request if the prescript... Start Date: 02/03/21 Status: Ordered acarbose 50 mg oral tablet 1 tablet = 50 mg, By Mouth, 3 times a day, Take 1 tab (plus 1 25mg tab), 3 times daily with meals.,# 270 tablet, 3 Refills, Maintenance, 02/03/21 8:34:00 EST, Tablet, [facility], Partial fill upon patient request if the prescript... Start Date: 02/03/21 Status: Ordered Baqsimi One Pack 3 mg nasal powder See Instructions, 3 mg Once intrasnasally for severe hypoglycemia, # 2 each, 3 Refills, Soft Stop, 08/28/20 10:36:00 EDT, [facility], Partial fill upon patient request if the prescription is for a schedule II opioid drug., 158.02,... Start Date: 08/28/20 Status: Ordered Carafate 1 gm/10 ml oral suspension 0 Refills, Maintenance, 11/13/20 9:09:00 EDT, Partial fill upon patient request if the prescriptionis for a schedule II opioid drug. Start Date: 11/13/20 Status: Ordered cetirizine 10 mg oral tablet 1 tablet = 10 mg, By Mouth, Daily, # 30 tablet, 5 Refills, Maintenance, 11/06/20 10:28:00 EDT, Tablet, [facility], Replaces loratidine, 158.02, cm, 11/06/20 10:04:00 EDT, Height,67, kg, 09/11/19 11:20:00 EDT, Dry Weight Start Date: 11/06/20 Status: Ordered cholestyramine 4 gm/5 gm oral powder for reconstitution 1 pack/packet, By Mouth, Daily, # 30 pack/packet, 5 Refills, Maintenance, 03/03/21 16:42:00 EST, REC Powder, [facility], Partial fill upon patient request if the prescription is for a schedule II opioid drug., 158.02, cm, 02/03/21... Start Date: 03/03/21 Stop Date: 08/30/21 Status: Ordered clonazePAM 1 mg oral tablet 0 Refills, Maintenance, 01/15/21 7:15:00 EST, Partial fill upon patient request if the prescriptionis for a schedule II opioid drug. Start Date: 01/15/21 Status: Ordered Dexilant 60 mg oral delayed release capsule 0 Refills, Maintenance, 11/13/20 9:09:00 EDT, Partial fill upon patient request if the prescriptionis for a schedule II opioid drug. Start Date: 11/13/20 Status: Ordered Emgality Prefilled Pen 120 mg/mL subcutaneous solution = 240 mg, Subcutaneous Injection, Once, Loading Dose, # 2 kit, 0 Refills, Soft Stop, 03/16/21 16:05:00 EST, [facility], Partial fill upon patient request if the prescription is for a schedule II opioid drug., 158, cm, 03/11/21 9:1... Start Date: 03/16/21 Status: Ordered Emgality Prefilled Pen 120 mg/mL subcutaneous solution = 120 mg, Subcutaneous Injection, Once, Maintenance Dose, # 1 kit, 5 Refills, Soft Stop, 03/16/21 16:05:00 EST, [facility], Partial fill upon patient request if the prescription is for a schedule II opioid drug., 158, cm, 03/11/21... Start Date: 03/16/21 Status: Ordered EPINEPHrine 1 mg/mL injectable solution 0.3 mL = 0.3 mg, Intramuscular, Once, # 1 mL, 1 Refills, Soft Stop, 03/08/21 15:07:00 EST, Solution, [facility], Partial fill upon patient request [...] Refills, Soft Stop, 11/20/19 11:59:00 EDT, [facility], 160.02, cm, 11/15/19 10:05:00 EDT, Height, 67, kg, 09/11/19 11:20:00 EDT, Dry Weight Start Date: 11/20/19 Status: Ordered Lidocaine Viscous 2% solution 5 mL = 0.1 Gm, By Mouth, 4 times a day, PRN for epigastric pain, # 200 mL, 1 Refills, Maintenance, 04/06/21 9:45:00 EST, Solution, [facility], Partial fill upon patient request if the prescription is for a schedule II opioid drug.... Start Date: 04/06/21 Status: Ordered meclizine 25 mg oral tablet See Instructions, PRN for dizziness, Take 1 tablet every 8 hours as needed for dizziness, # 15 tablet, 0 Refills, Maintenance, 11/03/20 7:49:00 EDT, Tablet, [facility], Partial fill upon patient request if the prescription is for... Start Date: 11/03/20 Status: Ordered montelukast 10 mg oral tablet 10 mg, 1, tablet, By Mouth, Daily in PM, # 90 tablet, Refills 3, Tot. Refills 3, Maintenance, 08/15/19 16:21:00 EDT, Route to Pharmacy Electronically, [facility], 160, cm, 08/15/19 13:45:00 EDT, Height, 56.5, kg, 05/29/19 13:36:00... Start Date: 08/15/19 Status: Ordered Nurtec ODT 75 mg oral tablet, disintegrating 1 tablet = 75 mg, By Mouth, Every 24 hours, PRN as needed for migraine headache, not to exceed 75 mg in 24 hours. no refill in nder 30 days, # 8 tablet, 6 Refills, Maintenance, 12/10/20 12:36:00 EDT,DIS Tablet, [facility], has t... Start Date: 12/10/20 Stop Date: 07/08/21 Status: Ordered Kenvir 0.65% nasal spray 2 sprays, Nares, Both, 4 times a day, # 1 each, 0 Refills, Maintenance, 10/30/20 11:34:00 EDT, [facility], Partial fill upon patient request if the prescription is for a scheduleII opioid drug., 2 sprays Nares, Both 4 times a day... Start Date: 10/30/20 Status: Ordered ProAir HFA 90 mcg/inh inhalation aerosol with adapter 2, puffs, Inhalation, Every 4 hours, PRN, # 8.5 Gm, Refills 1, Tot. Refills 1, Maintenance, 01/06/21 8:26:00 EDT, Aerosol, Route to Pharmacy Electronically, NCPDP_[id number], [facility], 158.02, cm, 01/06/21 8:03:00 EDT, Height, 6... Start Date: 01/06/21 Status: Ordered Readi-Cat 2 oral suspension See Instructions, Follow direction for CT, # 2 each, 0 Refills, Maintenance, 04/08/21 16:08:00 EST,[facility], Partial fill upon patient request if the prescription is for a schedule II opioid drug., Follow direction for CT, 158, cm,... Start Date: 04/08/21 Status: Ordered Reclast = 5 mg, IV [...] Gm, Refills 11, Route to Pharmacy Electronically, NCPDP_[id number], [facility], 158.02, cm, 11/13/20 8:38:00 EDT, Height, 67, kg, 09/11/19 11:20:00 EDT, Dry Weight Start Date: 11/20/20 Status: Ordered Trulicity Pen Subcutaneous Infusion, 0 Refills, Maintenance, 04/09/21 8:52:00 EST Start Date: 04/09/21 Status: Ordered Vitamin B-12 1000 mcg/mL injectable solution See Instructions, 1,000 mcg Subcutaneous Every 7 days x 8 weeks then once a month there after per PCP, # 30 mL, 1 Refills, Maintenance, 01/06/21 13:36:00 EDT, [facility], Partialfill upon patient request if the prescription is fo... Start Date: 01/06/21 Status: Ordered Problem List Condition Effective Dates [...] 1resolved after weight loss 2chronic perst 3gyn 11503 5testing negative insulinoma 6likley dumping sydrome 7abnormal GTT ;sugar 36 two hours into test 8sees gi 9normal CT brain 10new 115.3 cm,right per ct scan recent;seeing gynecology soon;they will review 12vit d deficiency;correct [id number] 14per endocrinology monitor 15correction refer GTT; 2 hour glucose 36 16refer GGT 17seeing ortho;pre op 18asma,ama neg/cerulopalsmain wnl,AAT wnl 19Negative hep A antibody positive hep B surface antibody negative antigen negative hep C, normal ferritin 20ukltrasound Social History Social History Type Response Smoking Status Never smoker entered on: 02/20/13 Sex
--- OUTSIDE RECORDS SUMMARY | 2022-08-17 08:18 | XMS_ITS | Continuity of Care Document ---
Author Name Unknown Organization [facility] Address [address] [place] [id number]- Care Team Providers Care Dress Marker Name Role Phone Eran TERMINAL GAUGER SUPERVISOR, Sue Dahl Primary Care Physician [phone] Encounter [facility] Date(s): 06/14/22 - 07/14/22 [facility] [address] [place] [address]- [place] Allergies, Adverse Reactions, Alerts Substance Reaction Severity Status Dust Allergy to pollen Active Pollen seasonal allergies respiratory symptoms Active Incruse Ellipta 1 lightheaded and migraine Active 1dizzy Immunizations Given and Recorded Vaccine Date Status Refusal Reason [id number] 12y+ bivalent booster vax 1 12/24/21 Given [...] vaccine, inactivated 02/08/11 Give n SARS-CoV-2 mRNA ([id number]) vax 05/01/21 Recorded zoster vaccine, inactivated 11/03/20 [...] tetanus-diphtheria toxoids (Td) 08/03/05 Given 1Result Comment: [id number] 2Result Comment: [id number] 3Result Comment: [12/07/2017] [address]-64 4Result Comment: [12/21/2016] [facility]: [id number] 5Result Comment: [06/10/2015] #3 6Admin Note: per pt 7Admin Note: given in clinic Medications acetaminophen 500 mg oral tablet 2 tablet = 1,000 mg, By Mouth, Every 6 hours, PRN as needed for fever, # 200 tablet, 0 Refills, Maintenance, 12/03/21 10:17:00 EDT, Tablet, [facility], Partial fill upon patient request if the prescription is for a schedule II opi... Start Date: 12/03/21 Status: Ordered Albuterol (Eqv-ProAir HFA) 90 mcg/inh inhalation aerosol 2 puffs, Inhalation, Every 4 hours, PRN NEEDED FOR WHEEZING, # 8.5 Gm, 5 Refills, Maintenance, 03/09/22 11:21:00 EST, [facility], 17, INHALE TWO PUFFS BY MOUTH EVERY 4 HOURS NEEDED FOR WHEEZING, 163, cm, 02/25/22 13:48:00 ES... Start Date: 03/09/22 Status: Ordered BD Tuberculin Syringe 1 mL 25 gauge x 5/8 BD Tuberculin Syringe 1 mL 25 gauge x 5/8 , See Instructions, # 20 each, 1 Refills, Maintenance, USE TO INJECT SUBCUTANEOUSLY once a week x 8 weeks then once a month there after per PCP, 03/09/22 14:27:00 EST, 163, cm, 02/25/22 13:48:00 EST, Height, 6... Start Date: 03/09/22 Status: Ordered calcium (as citrate)-vitamin D 315 mg-250 intl units oral tablet 2 tablet, By Mouth, 2 times a day, # 120 tablet, 6 Refills, Maintenance, 11/03/21 8:23:00 EDT, Tablet, [facility], 2 tablet By Mouth 2 times a day, 158, cm, 11/03/21 8:01:00 EDT,Height, 71.5, kg, 09/01/21 16:21:00 EDT, Dry Weight Start Date: 11/03/21 Status: Ordered Carafate 1 gm/10 ml oral suspension 10 mL = 1 Gm, By Mouth, 3 times a day before meals and bedtime, # 1,200 mL, 5 Refills, Maintenance,04/29/22 9:16:00 EST, [facility] #[id number], Partial fill upon patient request if the prescription is for a schedule II opioid drug., 158, cm, 02... Start Date: 04/29/22 Status: Ordered cetirizine 10 mg oral tablet 1 tablet, By Mouth, Daily, # 30 tablet, 5 Refills, Maintenance, 06/03/22 11:40:00 EDT, [facility], 158, cm, 05/25/22 13:59:00 EDT, Height, 64.8, kg, 03/24/22 12:21:00 EST, Dry Weight Start Date: 06/03/22 Status: Ordered clonazePAM 1 mg oral tablet 1 tablet = 1 mg, By Mouth, Every 6 hours, PRN Anxiety, 0 Refills, Maintenance, 01/15/21 7:15:00 EST, Partial fill upon patient request if the prescription is for a schedule II opioid drug. Start Date: 01/15/21 Status: Ordered Dexilant 60 mg oral delayed release capsule 1 capsule = 60 mg, By Mouth, 2 times a day, 30 min before meal, # 60 capsule, 5 Refills, Maintenance, 05/30/22 7:57:00 EDT, CR Capsule, [facility], Partial fill upon patient request if the prescription is for a schedule II opioid... Start Date: 05/30/22 Status: Ordered Emgality Prefilled Pen 120 mg/mL subcutaneous solution = 120 mg, Subcutaneous Injection, Once, Maintenance Dose, # 3 kit, 2 Refills, Soft Stop, 07/14/22 10:04:00 EDT, [facility], requesting 3 month supply for cheaper martinez. with 2 refills. had follow up just now, doing great, 158, cm... Start Date: 07/14/22 Status: Ordered EPINEPHrine 1 mg/mL injectable solution 0.3 mL = 0.3 mg, Intramuscular, Once, # 1 mL, 1 Refills, Soft Stop, 03/08/21 15:07:00 EST, Solution, [facility], Partial fill upon patient request if the prescription is for a schedule II opioid drug., 158, cm, 03/08/21 12:18:00 E... Start Date: 03/08/21 Status: Ordered famotidine 40 mg oral tablet 1 tablet = 40 mg, By Mouth, 2 times a day, # 60 tablet, 6 Refills, Maintenance, 01/31/22 14:05:00 EST, Suspension, [facility], Partial fill upon patient request if the prescription is for a schedule II opioid drug., 163, cm, 01/18... Start Date: 01/31/22 Stop Date: 08/29/22 Status: Ordered Fiber Choice 1.5 g oral tablet, chewable 1 tablet = 1.5 Gm, Chew, 3 times a day, # 90 tablet, 0 Refills, Maintenance, 04/09/22 15:16:00 EST,Chew Tablet, [facility] #[id number], Partial fill upon patient request if the prescription is for a schedule II opioid drug., 158, cm, 04/06/22 14... Start Date: 04/09/22 Status: Ordered gabapentin 300 mg oral capsule 300 mg, 1, capsule, By Mouth, Daily at bedtime, Refills 0, Maintenance, 07/13/21 12:26:00 EDT Start Date: 07/13/21 Status: Ordered MiraLax oral powder for reconstitution = 17 Gm, By Mouth, Daily, dissolve in water before taking, # 527 Gm, 0 Refills, Maintenance, 04/09/22 15:16:00 EST, REC Powder, [facility] #[id number], Partial fill upon patient request if the prescription is for a schedule II opioid drug., 17 Gm... Start Date: 04/09/22 Status: Ordered montelukast 10 mg oral tablet 1, tablet, By Mouth, Daily in PM, # 90 tablet, Refills 1, Tot. Refills 1, Maintenance, 11/14/21 11:28:00 EDT, Route to Pharmacy Electronically, [facility], 158, cm, 11/03/21 8:01:00 EDT, Height, 71.5, kg, 09/01/21 16:21:00 EDT, . Start Date: 11/14/21 Status: Ordered Nurtec ODT 75 mg oral tablet, disintegrating See Instructions, TAKE ONE TABLET DAILY NEEDED FOR migraines, DO NOT EXCEED ONE TABLET IN 24 HOURS, # 8 tablet, 6 Refills, Maintenance, 12/28/21 15:14:00 EDT, [facility], 163,cm, 12/24/21 8:20:00 EDT, Height, 67, kg, 11/26/21... Start Date: 12/28/21 Status: Ordered One touch ultra lancets One touch ultra lancets, See Instructions, # 100 each, Refills 7, Tot. Refills 7, Maintenance, Use glucose meter to check blood glucose up to 3x a day. E11.9, 04/29/22 13:28:00 EST, Supply, 158, cm, 04/29/22 8:41:00 EST, Height, 64.8, kg, 03/24/22 12:... Start Date: 04/29/22 Status: Ordered One touch Ultra meter One touch Ultra meter, See Instructions, # 1 each, Refills 0, Tot. Refills 0, Maintenance, Use glucose meter to check blood glucose up to 3x a day. E11.9, 04/29/22 13:27:00 EST, Supply, 158, cm, 04/29/22 8:41:00 EST, Height, 64.8, kg, 03/24/22 12:21:0... Start Date: 04/29/22 Status: Ordered One touch ultra test strips One touch ultra test strips, See Instructions, # 100 each, Refills 7, Tot. Refills 7, Maintenance, Use glucose meter to check blood glucose up to 3x a day. E11.9, 04/29/22 13:27:00 EST, Supply, 158, cm, 04/29/22 8:41:00 EST, Height, 64.8, kg, 03/24/22... Start Date: 04/29/22 Status: Ordered Reclast = 5 mg, IV Infusion, Once, 0 Refills, Maintenance, 11/06/20 10:24:00 EDT, administered at [facility] 10/2020 Start Date: 11/06/20 Status: Ordered Stool Softener + Stimulant Laxative 50 mg-8.6 mg oral capsule 1 capsule, By Mouth, Daily in PM, # 60 capsule, 0 Refills, Maintenance, 04/09/22 15:17:00 EST, Capsule, [facility] #[id number], Partial fill upon patient request if the prescription is for a schedule II opioid drug., 1 capsule By Mouth Daily in P... Start Date: 04/09/22 Status: Ordered Symbicort 160mcg/4.5mcg Inhaler 2, puffs, Inhalation, 2 times a day, rinse mouth and throat after use, # 10.2 Gm, Refills 2, Tot. Refills 2, Maintenance, 06/10/22 20:48:00 EDT, Route to Pharmacy Electronically, NCPDP_[id number], [facility], 158, cm, 06/07/22 10:... Start Date: 06/10/22 Status: Ordered Trintellix 10 mg oral tablet 2 tablet = 20 mg, By Mouth, Daily, # 30 tablet, 0 Refills, Maintenance, 08/13/21 13:07:00 EDT, Tablet Start Date: 08/13/21 Status: Ordered Vitamin B12 500 mcg/mL injectable solution monthly, 0 Refills, Maintenance, 03/22/22 11:31:00 EST, Partial fill upon patient request if the prescription is for a schedule II opioid drug. Start Date: 03/22/22 Status: Ordered Problem List Condition Confirmation Course Effective Dates Status H ealth Status Informant Allergic rhinitis Confirmed Active B12 deficiency Confirmed Active Bipolar disorder NOS Confirmed Active Cervical radiculopathy = MR*I Confirmed Active Chronic sinusitis sx September 2019 Confirmed Active COVID-19 Feb 06 2021MAB Feb Confirmed Active Diaphragmatic hernia Confirmed Active EKG abnormality qs v1 chronic Confirmed Active Multiple environmental allergies immujnotherapy Confirmed Active Esophageal reflux (GERD) egd 2017 Confirmed Active Anxiety disorder Confirmed Active Genital herpes 1 Confirmed 06/18/15 Active H/O laparoscopic adjustable gastric banding 2007/Feb 2021 2 Confirmed Active History of cholecystectomy Confirmed 04/10/17 Active Hypoglycemia 3, 4, 5 Confirmed Active Spondylosis of lumbar spine MRI 2018 sx 2018 Confirmed Active Adnexal mass Confirmed Active Migraines 6, 7 Confirmed Active Asthma, mild persistent 8, 9 Confirmed Active Orthostatic hypotension Confirmed Active Osteoporosis REclast Oct 2020/ Endocrinology Confirmed 07/03/20 Active Ovarian cyst 10 Confirmed Active Leg paresthesia Confirmed 07/24/17 Active Personal history of gastric bypass ? 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 Active Abdominal pain, chronic, right lower quadrant Confirmed Active Impingement syndrome of shoulder 16 Confirmed Active Fatty liver 17, 18, 19 Confirmed 10/09/16 Active Vitamin D deficiency Confirmed Active 1gyn 72889 3testing negative insulinoma 4likley dumping sydrome 5abnormal GTT ;sugar 36 two hours into test 6normal CT brain 7new 8resolved after weight loss 9chronic perst 105.3 cm,right per ct scan recent;seeing gynecology soon;they will review 11vit d deficiency;correct 127925 13per endocrinology monitor 14correction refer GTT; 2 hour glucose 36 15refer GGT 16seeing ortho;pre op 17asma,ama neg/cerulopalsmain wnl,AAT wnl 18Negative hep A antibody positive hep B surface antibody negative antigen negative hep C, normal ferritin 19ukltrasound Social History Social History Type Response Smoking Status Never smoker entered on: 02/20/13 Sex Patient Care team information Care Team Personnel Name: Caitlyn Mcgee RN Position: [facility] RN Member Role: Primary Care Nurse Name: Sue Barillas NP Position: [facility] PCO Associate Professional Member Role: PCP Address: Address: [address] [place] [address]- Name: Andria Guadalupe RN Position: [facility] RN Member Role: Primary Care Nurse Name: Liz Martin RN Position: [facility] RN Member Role: Primary Care Nurse Name: Ambreen Mcmahon RN Position: [facility] RN Member Role: Primary Care Nurse Name: Irais Grijalva RN Position: [facility] RN Member Role: Primary Care Nurse Name: Autumn Martinez RN Position: [facility] SN RN Member Role: Primary Care Nurse Name: Liz English RN Position: [facility] RN Member Role: Primary Care Nurse Name: Dora Williamson RN Position: [facility] RN Member Role: Primary Care Nurse Care Team Related Persons Name: KHUSHI CUNNINGHAM Address: [address] [place] [address] Name: BHUPINDER VENEGAS Address: [address] [place] [address] Name: FELIPE FLORES Address: home [address] [place] [address] Name: ARNAV FLORES Address: home [address] [place] [address] Name: IRINA FLORES Address: [address] [place] [address] Name: RUSLAN FLORES Address: home [address] [place] [address] Name: KAISER PLUNKETT Address: home [address] [place] [address]
--- OUTSIDE RECORDS SUMMARY | 2022-08-17 08:18 | XMS_ITS | Continuity of Care Document ---
Author Name Unknown Organization [facility] Oswaldo Address [address] [place] [address]- Care Team Providers Care Photography Colorist Name Role Phone Taras Jasso MD Primary Care Physician Encounter [facility] Date(s): 04/17/19 - 05/18/19 [facility] Adult [address] [place] [address]- [facility] Attending Physician: Taras Jasso MD Allergies, Adverse Reactions, Alerts Substance Reaction Severity Status Dust Allergy to pollen Active Pollen Active Immunizations Given and Recorded Vaccine Date Status Refusal Reason influenza virus vaccine, inactivated 11/21/18 Give n [...] toxoids (Td) 08/03/05 Given 1Result Comment: [12/07/2017] [address]-91 2Result Comment: [12/21/2016] [facility]: 35337-414-56 3Result Comment: [06/10/2015] #3 4Admin Note: per pt 5Admin Note: given in clinic Medications Dexilant 60 mg oral delayed release capsule 1 capsule = 60 mg, By Mouth, 2 times a day, # 60 capsule, 5 Refills, Maintenance, 12/31/18 11:53:09EDT Start Date: 12/31/18 Status: Ordered famotidine 20 mg oral tablet 20 mg, 1, tablet, By Mouth, Daily at bedtime, # 30 tablet, Refills 5, Tot. Refills 5, Maintenance, 05/17/19 12:02:00 EDT, Route to Pharmacy Electronically, [facility], 160, cm, 05/16/19 10:27:00 EDT, Height, 62.9, kg, 05/12/19 9:1... Start Date: 05/17/19 Status: Ordered KlonoPIN 1 mg oral tablet [...] 02/25/19 16:55:00 EST, Route to Pharmacy Electronically, [facility], 158, cm, 02/14/19 7:55:00 EST, Height, 61.9, kg, 02/12/19 10:17:00... Start Date: 02/25/19 Status: Ordered ProAir HFA 90 mcg/inh inhalation aerosol with adapter 2, puffs, Inhalation, Every 4 hours, PRN, # 8.5 Gm, Refills 2, Tot. Refills 2, Maintenance, 04/29/19 11:32:00 EST, Aerosol, Route to Pharmacy Electronically, [id number]_[id number], [facility], 160, cm, 04/29/19 10:47:00 EST, Height... Start Date: 04/29/19 Status: Ordered SEROquel 200 mg oral tablet 200 mg, 1, tablet, By Mouth, Daily at bedtime, Refills 0, Maintenance, 05/24/18 15:34:19 EDT Start Date: 05/24/18 Status: Ordered SUMAtriptan 100 mg oral tablet 1 tablet = 100 mg, By Mouth, Daily, PRN for migraine headache, # 9 tablet, 5 Refills, Soft Stop, 02/14/19 8:02:51 EST, Tablet, 158, cm, 02/14/19 7:55:17 EST, Height, 61.9, kg, 02/12/19 10:17:29 EST, Dry Weight Start Date: 02/14/19 Stop Date: 08/13/19 Status: Ordered Trintellix 10 mg oral tablet 1 tablet = 10 mg, By Mouth, Daily, 0 Refills, Maintenance, 05/12/19 9:31:00 EDT Start Date: 05/12/19 Status: Ordered Zonegran 25 mg oral capsule 2 capsule = 50 mg, By Mouth, 2 times a day, after weaning off topamax start this medication, # 120 capsule, 5 Refills, Maintenance, 04/12/19 12:59:00 EST, Capsule, [facility], 160, cm, 04/11/19 12:38:00 EST, Height, 64.5, kg,... Start Date: 04/12/19 Stop Date: 10/09/19 Status: Ordered Problem List Condition Effective Dates Status Health Status Inform ant Allergic rhinitis(Confirmed) Active Asthma(Confirmed) 1, 2 Active B12 deficiency(Confirmed) Active Bipolar disorder NOS(Confirmed) Active Cervical radiculopathy(Confirmed) Active Depression(Confirmed) 3 Active Esophageal reflux (GERD) egd 2017(Confirmed) Active Gastroenteritis(Confirmed) Active Anxiety disorder(Confirmed) Active Genital herpes(Confirmed) 4 06/18/15 Active H/O laparoscopic adjustable gastric banding 2007(Confirmed) 5 Active History of cholecystectomy(Confirmed) 04/10/17 Active Hypoglycemia(Confirmed) 6, 7, 8 Active Irregular menses(Confirmed) 9 Active Spondylosis of lumbar spine MRI 2018 sx 2018(Confirmed) Active Migraines(Confirmed) 10, 11 Active Orthostatic hypotension(Confirmed) Active Ovarian cyst(Confirmed) 12 Active Leg paresthesia(Confirmed) 07/24/17 Active Personal history of gastric bypass 2003(Confirmed) 13, 14 Active Dumping syndrome(Confirmed) 15, 16, 17 Active Impingement syndrome of shoulder(Confirmed) 18 Active Fatty liver(Confirmed) 19, 20, 21 10/09/16 Active Vitamin D deficiency(Confirmed) Active 1resolved after weight loss 2chronic perst 3folowed by mental health;recent hospitalization 4gyn 93902 6testing negative insulinoma 7likley dumping sydrome 8abnormal GTT ;sugar 36 two hours into test 9sees gi 10normal CT brain 11new 125.3 cm,right per ct scan recent;seeing gynecology soon;they will review 13vit d deficiency;correct [id number] 15per endocrinology monitor 16correction refer GTT; 2 hour glucose 36 17refer GGT 18seeing ortho;pre op 19asma,ama neg/cerulopalsmain wnl,AAT wnl 20Negative hep A antibody positive hep B surface antibody negative antigen negative hep C, normal ferritin 21ukltrasound Social History Social History Type Response Smoking Status Never smoker entered on: 02/20/13 Sex
--- OUTSIDE RECORDS SUMMARY | 2022-08-17 08:18 | XMS_ITS | Continuity of Care Document ---
Author Name Unknown Organization [facility] Address [address] [place] [address]- Care Team Providers Care Business Objects Architect Name Role Phone Eran ELIZABETH, Sue Dahl Primary Care Physician [phone] [place] [facility] [place](s): 01/05/22 - 02/04/22 [facility] [address] [place] [id number] Allergies, Adverse Reactions, Alerts Substance Reaction Severity Status Dust Allergy to pollen Active Pollen seasonal allergies respiratory symptoms Active Incruse Ellipta 1 lightheaded and migraine Active 1dizzy Immunizations Given and Recorded Vaccine Date Status Refusal Reason [id number] 12y+ bivalent booster vax 1 12/24/21 Given [...] vaccine, inactivated 02/08/11 Give n SARS-CoV-2 mRNA ([id number]) vax 05/01/21 Recorded zoster vaccine, inactivated 11/03/20 [...] tetanus-diphtheria toxoids (Td) 08/03/05 Given 1Result Comment: [address]-4 2Result Comment: 10725-769-03 3Result Comment: [12/07/2017] [address]-86 4Result Comment: [12/21/2016] [facility]: 59336-536-61 5Result Comment: [06/10/2015] #3 6Admin Note: per pt 7Admin Note: given in clinic Medications acarbose 25 mg oral tablet See Instructions, 1 tablet with 50 mg (total 75 mg) By Mouth before lunch, # 30 each, 11 Refills, Maintenance, 11/03/21 8:24:00 EDT, Tablet, [facility], 158, cm, 11/03/21 8:01:00EDT, Height, 71.5, kg, 09/01/21 16:21:00 EDT, Dry W... Start Date: 11/03/21 Status: Ordered acarbose 50 mg oral tablet See Instructions, 1 tablet with 25 mg (total 75 mg) By Mouth before lunch, # 30 each, 11 Refills, Maintenance, 11/03/21 8:23:00 EDT, Tablet, [facility], Partial fill upon patientrequest if the prescription is for a schedule II op... Start Date: 11/03/21 Status: Ordered acetaminophen 500 mg oral tablet 2 tablet = 1,000 mg, By Mouth, Every 6 hours, PRN as needed for fever, # 200 tablet, 0 Refills, Maintenance, 12/03/21 10:17:00 EDT, Tablet, [facility], Partial fill upon patient request if the prescription is for a schedule II opi... Start Date: 12/03/21 Status: Ordered Albuterol (Eqv-ProAir HFA) 90 mcg/inh inhalation aerosol 2 puffs, Inhalation, Every 4 hours, PRN NEEDED FOR WHEEZING, # 8.5 Gm, 1 Refills, Maintenance, 12/03/21 14:16:00 EDT, [facility], 18, INHALE TWO PUFFS EVERY 4 HOURS NEEDED FOR WHEEZING, 163, cm, 12/03/21 9:39:00 EDT, Height,... Start Date: 12/03/21 Status: Ordered calcium (as citrate)-vitamin D 315 mg-250 intl units oral tablet 2 tablet, By Mouth, 2 times a day, # 120 tablet, 6 Refills, Maintenance, 11/03/21 8:23:00 EDT, Tablet, [facility], 2 tablet By Mouth 2 [...] Refills, Maintenance, 11/22/21 9:49:00 EDT, CR Capsule, [facility], Partial fill upon patient request if the prescription is for a schedule II opioid... Start Date: 11/22/21 Status: Ordered Emgality Prefilled Pen 120 mg/mL subcutaneous solution = 120 mg, Subcutaneous Injection, Once, Maintenance Dose, # 1 kit, 6 Refills, Soft Stop, 12/30/21 12:19:00 EDT, [facility], Partial fill upon patient request if the prescription is for a schedule II opioid drug., 163, cm, 12/24/21... Start Date: 12/30/21 Status: Ordered EPINEPHrine 1 mg/mL injectable solution 0.3 mL = 0.3 mg, Intramuscular, Once, # 1 mL, 1 Refills, Soft Stop, 03/08/21 15:07:00 EST, Solution, [facility], Partial fill upon patient request if the prescription is for a schedule II opioid drug., 158, cm, 03/08/21 12:18:00 E... Start Date: 03/08/21 Status: Ordered famotidine 40 mg oral tablet 1 tablet = 40 mg, By Mouth, 2 times a day, # 60 tablet, 6 Refills, Maintenance, 01/31/22 14:05:00 EST, Suspension, [facility], Partial fill upon patient request if the prescription is for a schedule II opioid drug., 163, cm, 01/18... Start Date: 01/31/22 Stop Date: 08/29/22 Status: Ordered Freestyle Lite Lancets See Instructions, [...] 11/15/21 10:56:00 EDT, Route to Pharmacy Electronically, [facility], 158, cm, 11/03/21 8:01:00 EDT, Height, 71.5, kg, 09/01/21 16:21:00 EDT, Mark Start Date: 11/15/21 Status: Ordered montelukast 10 mg oral tablet 1, tablet, By Mouth, Daily in PM, # 90 tablet, Refills 1, Tot. Refills 1, Maintenance, 11/14/21 11:28:00 EDT, Route to Pharmacy Electronically, [facility], 158, cm, 11/03/21 8:01:00 EDT, Height, 71.5, kg, 09/01/21 16:21:00 EDT, Start Date: 11/14/21 Status: Ordered Nurtec ODT 75 mg oral tablet, disintegrating See Instructions, TAKE ONE TABLET DAILY NEEDED FOR migraines, DO NOT EXCEED ONE TABLET IN 24 HOURS, # 8 tablet, 6 Refills, Maintenance, 12/28/21 15:14:00 EDT, [facility], 163,cm, 12/24/21 8:20:00 EDT, Height, 67, kg, 11/26/21... Start Date: 12/28/21 Status: Ordered Paxlovid 150 mg-100 mg (150 mg-100 mg Dose) oral tablet See Instructions, Take 3 tablets by mouth twice a day for 5 days GFR avove 60, # 30 tablet, 0 Refills, Maintenance, 01/18/22 8:00:00 EST, [facility], Partial fill upon patient request if the prescription is for a schedule II opio... Start Date: 01/18/22 Status: Ordered Reclast = 5 mg, IV Infusion, Once, 0 Refills, Maintenance, 11/06/20 10:24:00 EDT, administered at [facility] 10/2020 Start Date: 11/06/20 Status: [...] 11/23/21 19:57:00 EDT, Route to Pharmacy Electronically, NCPDP_[id number], [facility], 158, cm, 11/03/21 8:0... Start Date: [...] 5 Refills, Maintenance, 12/10/21 9:44:00 EDT, Tablet, [facility], Partial fill upon patient [...] Active Vitamin D deficiency Confirmed Active 1gyn 86151 3testing negative insulinoma 4likley dumping sydrome 5abnormal GTT ;sugar 36 two hours into test 6sees gi 7normal CT brain 8new 9resolved after weight loss 10chronic perst 115.3 cm,right per ct scan recent;seeing gynecology soon;they will review 12vit d deficiency;correct 119866 14per endocrinology monitor 15correction refer GTT; 2 hour glucose 36 16refer GGT 17seeing ortho;pre op 18asma,ama neg/cerulopalsmain wnl,AAT wnl 19Negative hep A antibody positive hep B surface antibody negative antigen negative hep C, normal ferritin 20ukltrasound Social History Social History Type Response Smoking Status Never smoker entered on: 02/20/13 Sex Patient Care team information Care Team Personnel Name: Caitlyn Mcgee RN Position: [facility] RN Member Role: Primary Care Nurse Name: Sue Barillas NP Position: [facility] PCO Associate Professional Member Role: PCP Address: Address: [address] [place] [address], [place] [address]- Name: Andria Guadalupe RN Position: [facility] SN RN Member Role: Primary Care Nurse Name: Liz Martin RN Position: S RN Member Role: Primary Care Nurse Name: Ambreen Mcmahon RN Position: S RN Member Role: Primary Care Nurse Name: Irais Grijalva RN Position: S RN Member Role: Primary Care Nurse Name: Autumn Martinez RN Position: [facility] SN RN Member Role: Primary Care Nurse Name: Concha Mckinley RN Position: S RN Member Role: Primary Care Nurse Name: Liz English RN Position: S RN Member Role: Primary Care Nurse Name: Dora Williamson RN Position: [facility] RN Member Role: Primary Care Nurse Care Team Related Persons Name: KHUSHI CUNNINGHAM Address: [address] [place] [address] Name: BHUPINDER VENEGAS Address: [address] [place] [address] Name: FELIPE FLORES Address: home [address] [place] [address] Name: ARNAV FLORES Address: home [address] [place] [address] Name: IRINA FLORES Address: [address] [place], [place] Name: RUSLAN FLORES Address: home [address] [place], [place] Name: KAISER PLUNKETT Address: home [address] [place] [address]
--- OUTSIDE RECORDS SUMMARY | 2022-08-17 08:18 | XMS_ITS | Continuity of Care Document ---
Author Name Unknown Organization [facility] Address [address] [place] [address]- Care Team Providers Care Link Trainer Maintenance Worker Name Role Phone Eran NURSE STAFFSue Primary Care Physician Encounter [facility] Date(s): 04/29/21 - 05/29/21 [facility] [address] [place] [address]- [place] Allergies, Adverse Reactions, Alerts Substance Reaction Severity Status Dust Allergy to pollen Active Pollen seasonal allergies respiratory symptoms Active Incruse Ellipta 1 lightheaded and migraine Active 1dizzy Immunizations Given and Recorded Vaccine Date Status Refusal Reason SARS-CoV-2 mRNA ([id number]) vax 05/01/21 Recorded influenza virus vaccine, inactivated [...] toxoids (Td) 08/03/05 Given 1Result Comment: [12/07/2017] [address]-86 2Result Comment: [12/21/2016] [facility]: 75538-654-20 3Result Comment: [06/10/2015] #3 4Admin Note: per [...] 3 Refills, Maintenance, 02/03/21 8:34:00 EST, Tablet, [facility], Partial fill upon patient request if the prescript... Start Date: 02/03/21 Status: Ordered acarbose 50 mg oral tablet 1 tablet = 50 mg, By Mouth, 3 times a day, Take 1 tab (plus 1 25mg tab), 3 times daily with meals.,# 270 tablet, 3 Refills, Maintenance, 02/03/21 8:34:00 EST, Tablet, [facility], Partial fill upon patient request if the prescript... Start Date: 02/03/21 Status: Ordered Baqsimi One Pack 3 mg nasal powder See Instructions, 3 mg Once intrasnasally for severe hypoglycemia, # 2 each, 3 Refills, Soft Stop, 08/28/20 10:36:00 EDT, [facility], Partial fill upon patient request [...] Refills, Maintenance, 03/03/21 16:42:00 EST, REC Powder, [facility], Partial fill upon patient request [...] per PCP, # 30 mL, 1 Refills, [facility], 158, cm, 04/09/21 8:13:00 EST, Height, 80.6, kg, 03/08/21 12:18:00 EST, Dry Weight Start Date: 04/30/21 Status: Ordered Dexilant 60 mg oral delayed release capsule 1 capsule = 60 mg, By Mouth, 2 times a day, 30 min before meal, # 60 capsule, 5 Refills, Maintenance, 04/16/21 14:29:00 EST, CR Capsule, [facility], Partial fill upon patient request if the prescription is for a schedule II opioi... Start Date: 04/16/21 Status: Ordered Emgality Prefilled Pen 120 mg/mL subcutaneous solution = 240 mg, Subcutaneous Injection, Once, Loading Dose, # 2 kit, 0 Refills, Soft Stop, 03/16/21 16:05:00 EST, [facility], Partial fill upon patient request if the prescription is for a schedule II opioid drug., 158, cm, 03/11/21 9:1... Start Date: 03/16/21 Status: Ordered EPINEPHrine 1 mg/mL injectable solution 0.3 mL = 0.3 mg, Intramuscular, Once, # 1 mL, 1 Refills, Soft Stop, 03/08/21 15:07:00 EST, Solution, [facility], Partial fill upon patient request [...] 1 Refills, Soft Stop, 11/20/19 11:59:00 EDT, [facility], 160.02, cm, 11/15/19 10:05:00 EDT, Height, 67, kg, 09/11/19 11:20:00 EDT, Dry Weight Start Date: 11/20/19 Status: Ordered Lidocaine Viscous 2% solution 5 mL = 0.1 Gm, By Mouth, 4 times a day, PRN for epigastric pain, # 200 mL, 1 Refills, Maintenance, 04/06/21 9:45:00 EST, Solution, [facility], Partial fill upon patient request if the prescription is for a schedule II opioid drug.... Start Date: 04/06/21 Status: Ordered loratadine 10 mg oral tablet 10 mg, 1, tablet, By Mouth, Daily, # 90 tablet, Refills 0, Tot. Refills 0, Maintenance, 05/24/21 11:12:00 EDT, Route to Pharmacy Electronically, [facility], 158, cm, 05/14/21 7:52:00 EST, Height, 80.6, kg, 03/08/21 12:18:00 EST, D... Start Date: 05/24/21 Status: Ordered meclizine 25 mg oral tablet See Instructions, PRN for dizziness, Take 1 tablet every 8 hours as needed for dizziness, # 15 tablet, 0 Refills, Maintenance, 11/03/20 7:49:00 EDT, Tablet, [facility], Partial fill upon patient request if the prescription is for... Start Date: 11/03/20 Status: Ordered montelukast 10 mg oral tablet 10 mg, 1, tablet, By Mouth, Daily in PM, # 90 tablet, Refills 1, Tot. Refills 1, Maintenance, 04/23/21 12:32:00 EST, Route to Pharmacy Electronically, [facility], 158, cm, 04/09/21 8:13:00 EST, Height, 80.6, kg, 03/08/21 12:18:00... Start Date: 04/23/21 Status: Ordered Nurtec ODT 75 mg oral tablet, disintegrating 1 tablet = 75 mg, By Mouth, Every 24 hours, PRN as needed for migraine headache, not to exceed 75 mg in 24 hours. no refill in nder 30 days, # 8 tablet, 6 Refills, Maintenance, 12/10/20 12:36:00 EDT,DIS Tablet, [facility], has t... Start Date: 12/10/20 Stop Date: 07/08/21 Status: Ordered [place] 0.65% nasal spray 2 sprays, Nares, Both, 4 times a day, # 1 each, 3 Refills, Maintenance, 05/14/21 11:40:00 EST, [facility], Partial fill upon patient request if the prescription is for a scheduleII opioid drug., 2 sprays Nares, Both 4 times a day... Start Date: 05/14/21 Status: Ordered ProAir HFA 90 mcg/inh inhalation aerosol with adapter 2, puffs, Inhalation, Every 4 hours, PRN, # 8.5 Gm, Refills 1, Tot. Refills 1, Maintenance, 05/13/21 19:25:00 EST, Aerosol, Route to Pharmacy Electronically, NCPDP_[id number], [facility], 158, cm, 05/06/21 6:58:00 EST, Height, 80.... Start Date: 05/13/21 Status: Ordered Reclast = 5 mg, IV Infusion, Once, 0 Refills, Maintenance, 11/06/20 10:24:00 EDT, administered at [facility] 10/2020 Start Date: 11/06/20 Status: Ordered [...] Gm, Refills 11, Route to Pharmacy Electronically, NCPDP_[id number], [facility], 158.02, cm, 11/13/20 8:38:00 EDT, [...] Obesity(Confirmed) Active Orthostatic hypotension(Confirmed) Active Osteoporosis REclast Oct 1/ Endocrinology(Confirmed) 07/03/20 Active Ovarian cyst(Confirmed) 11 Active Leg paresthesia(Confirmed) 07/24/17 Active Personal history of gastric bypass ? 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 Impingement syndrome of shoulder(Confirmed) 17 Active Fatty liver(Confirmed) 18, 19, 20 10/09/16 Active Vitamin D deficiency(Confirmed) Active 1resolved after weight loss 2chronic perst 3gyn 63351 5testing negative insulinoma 6likley dumping sydrome 7abnormal GTT ;sugar 36 two hours into test 8sees gi 9normal CT brain 10new 115.3 cm,right per ct scan recent;seeing gynecology soon;they will review 12vit d deficiency;correct [id number] 14per endocrinology monitor 15correction refer GTT; 2 hour glucose 36 16refer GGT 17seeing ortho;pre op 18asma,ama neg/cerulopalsmain wnl,AAT wnl 19Negative hep A antibody positive hep B surface antibody negative antigen negative hep C, normal ferritin 20ukltrasound Social History Social History Type Response Smoking Status Never smoker entered on: 02/20/13 Sex
--- OUTSIDE RECORDS SUMMARY | 2022-08-17 08:18 | XMS_ITS | Continuity of Care Document ---
Author Name Unknown Organization [facility] Address [address] [place] [phone]- Care Team Providers Care Drafter Cartographic Name Role Phone [employer], Sue Dahl Primary Care Physician Encounter [facility] Date(s): 04/29/21 - 05/29/21 [facility] [address] [place] [address]- [place] Allergies, Adverse Reactions, Alerts Substance Reaction Severity Status Dust Allergy to pollen Active Pollen seasonal allergies respiratory symptoms Active Incruse Ellipta 1 lightheaded and migraine Active 1dizzy Immunizations Given and Recorded Vaccine Date Status Refusal Reason SARS-CoV-2 mRNA ([id number]) vax 05/01/21 Recorded influenza virus vaccine, inactivated [...] toxoids (Td) 08/03/05 Given 1Result Comment: [12/07/2017] [address]-20 2Result Comment: [12/21/2016] [facility]: [id number] 3Result Comment: [06/10/2015] #3 4Admin Note: per [...] 3 Refills, Maintenance, 02/03/21 8:34:00 EST, Tablet, [facility], Partial fill upon patient request if the prescript... Start Date: 02/03/21 Status: Ordered acarbose 50 mg oral tablet 1 tablet = 50 mg, By Mouth, 3 times a day, Take 1 tab (plus 1 25mg tab), 3 times daily with meals.,# 270 tablet, 3 Refills, Maintenance, 02/03/21 8:34:00 EST, Tablet, [facility], Partial fill upon patient request if the prescript... Start Date: 02/03/21 Status: Ordered Baqsimi One Pack 3 mg nasal powder See Instructions, 3 mg Once intrasnasally for severe hypoglycemia, # 2 each, 3 Refills, Soft Stop, 08/28/20 10:36:00 EDT, [facility], Partial fill upon patient request [...] Refills, Maintenance, 03/03/21 16:42:00 EST, REC Powder, [facility], Partial fill upon patient request [...] per PCP, # 30 mL, 1 Refills, [facility], 158, cm, 04/09/21 8:13:00 EST, Height, 80.6, kg, 03/08/21 12:18:00 EST, Dry Weight Start Date: 04/30/21 Status: Ordered Dexilant 60 mg oral delayed release capsule 1 capsule = 60 mg, By Mouth, 2 times a day, 30 min before meal, # 60 capsule, 5 Refills, Maintenance, 04/16/21 14:29:00 EST, CR Capsule, [facility], Partial fill upon patient request if the prescription is for a schedule II opioi... Start Date: 04/16/21 Status: Ordered Emgality Prefilled Pen 120 mg/mL subcutaneous solution = 240 mg, Subcutaneous Injection, Once, Loading Dose, # 2 kit, 0 Refills, Soft Stop, 03/16/21 16:05:00 EST, [facility], Partial fill upon patient request if the prescription is for a schedule II opioid drug., 158, cm, 03/11/21 9:1... Start Date: 03/16/21 Status: Ordered EPINEPHrine 1 mg/mL injectable solution 0.3 mL = 0.3 mg, Intramuscular, Once, # 1 mL, 1 Refills, Soft Stop, 03/08/21 15:07:00 EST, Solution, [facility], Partial fill upon patient request [...] 1 Refills, Soft Stop, 11/20/19 11:59:00 EDT, [facility], 160.02, cm, 11/15/19 10:05:00 EDT, Height, 67, kg, 09/11/19 11:20:00 EDT, Dry Weight Start Date: 11/20/19 Status: Ordered Lidocaine Viscous 2% solution 5 mL = 0.1 Gm, By Mouth, 4 times a day, PRN for epigastric pain, # 200 mL, 1 Refills, Maintenance, 04/06/21 9:45:00 EST, Solution, [facility], Partial fill upon patient request if the prescription is for a schedule II opioid drug.... Start Date: 04/06/21 Status: Ordered loratadine 10 mg oral tablet 10 mg, 1, tablet, By Mouth, Daily, # 90 tablet, Refills 0, Tot. Refills 0, Maintenance, 05/24/21 11:12:00 EDT, Route to Pharmacy Electronically, [facility], 158, cm, 05/14/21 7:52:00 EST, Height, 80.6, kg, 03/08/21 12:18:00 EST, D... Start Date: 05/24/21 Status: Ordered meclizine 25 mg oral tablet See Instructions, PRN for dizziness, Take 1 tablet every 8 hours as needed for dizziness, # 15 tablet, 0 Refills, Maintenance, 11/03/20 7:49:00 EDT, Tablet, [facility], Partial fill upon patient request if the prescription is for... Start Date: 11/03/20 Status: Ordered montelukast 10 mg oral tablet 10 mg, 1, tablet, By Mouth, Daily in PM, # 90 tablet, Refills 1, Tot. Refills 1, Maintenance, 04/23/21 12:32:00 EST, Route to Pharmacy Electronically, [facility], 158, cm, 04/09/21 8:13:00 EST, [...] 6 Refills, Maintenance, 12/10/20 12:36:00 EDT,DIS Tablet, [facility], has t... Start Date: 12/10/20 Stop Date: 07/08/21 Status: Ordered Bott[place]au 0.65% nasal spray 2 sprays, Nares, Both, 4 times a day, # 1 each, 3 Refills, Maintenance, 05/14/21 11:40:00 EST, [facility], Partial fill upon patient request if the prescription is for a scheduleII opioid drug., 2 sprays Nares, Both 4 times a day... Start Date: 05/14/21 Status: Ordered ProAir HFA 90 mcg/inh inhalation aerosol with adapter 2, puffs, Inhalation, Every 4 hours, PRN, # 8.5 Gm, Refills 1, Tot. Refills 1, Maintenance, 05/13/21 19:25:00 EST, Aerosol, Route to Pharmacy Electronically, NCPDP_[id number], [facility], 158, cm, 05/06/21 6:58:00 EST, Height, 80.... Start Date: 05/13/21 Status: Ordered Reclast = 5 mg, IV Infusion, Once, 0 Refills, Maintenance, 11/06/20 10:24:00 EDT, administered at [facility] 10/2020 Start Date: 11/06/20 Status: [...] Gm, Refills 11, Route to Pharmacy Electronically, NCPDP_[id number], [facility], 158.02, cm, 11/13/20 8:38:00 EDT, [...] 1resolved after weight loss 2chronic perst 3gyn 88610 5testing negative insulinoma 6likley dumping sydrome 7abnormal GTT ;sugar 36 two hours into test 8sees gi 9normal CT brain 10new 115.3 cm,right per ct scan recent;seeing gynecology soon;they will review 12vit d deficiency;correct [id number] 14per endocrinology monitor 15correction refer GTT; 2 hour glucose 36 16refer GGT 17seeing ortho;pre op 18asma,ama neg/cerulopalsmain wnl,AAT wnl 19Negative hep A antibody positive hep B surface antibody negative antigen negative hep C, normal ferritin 20ukltrasound Social History Social History Type Response Smoking Status Never smoker entered on: 02/20/13 Sex
--- OUTSIDE RECORDS SUMMARY | 2022-08-17 08:18 | XMS_ITS | Continuity of Care Document ---
Author Name Unknown Organization [facility] Address [address] [place] [id number]- Care Team Providers Care Works Manager Name Role Phone Louisa LANDRUM, Taras Fuentes Primary Care Physician [phone] Encounter [facility] Date(s): 04/21/20 - 05/21/20 [facility] [address] [place] [phone]- Allergies, Adverse Reactions, Alerts Substance Reaction Severity [...] toxoids (Td) 08/03/05 Given 1Result Comment: [12/07/2017] [id number] 2Result Comment: [12/21/2016] [facility]: [id number] 3Result Comment: [06/10/2015] #3 4Admin Note: per [...] 0 Refills, Maintenance, 07/03/19 13:59:00 EDT, Solution, [facility], 160, cm, 05/29/19 13:36:00 EDT, Height, 56.5, kg, 03... Start Date: 07/03/19 Status: Ordered buPROPion 300 mg/24 hours (XL) oral tablet, extended release 1 tablet = 300 mg, By Mouth, Daily in AM, 0 Refills, Maintenance, 09/03/19 12:26:00 EDT Start Date: 09/03/19 Status: Ordered Dexilant 60 mg oral delayed release capsule 1 capsule = 60 mg, By Mouth, 2 times a day, # 60 capsule, 5 Refills, Maintenance, 05/07/20 15:54:00EST, [facility], 160.02, cm, 05/01/20 9:18:00 EST, Height, 67, kg, 09/11/19 11:20:00 EDT, Dry Weight Start Date: 05/07/20 Status: Ordered Freestyle Lite Lancets See Instructions, [...] 1 Refills, Soft Stop, 11/20/19 11:59:00 EDT, [facility], 160.02, cm, 11/15/19 10:05:00 EDT, Height, 67, kg, 09/11/19 11:20:00 EDT, Dry Weight Start Date: 11/20/19 Status: Ordered hydrOXYzine pamoate 50 mg oral capsule 1 capsule = 50 mg, By Mouth, Daily at bedtime, 0 Refills, Maintenance, 05/08/20 8:58:00 EST, Partial fill upon patient request if the prescription is for a schedule II opioid drug. Start Date: 05/08/20 Status: Ordered Latuda 60 mg oral tablet 1 tablet = 60 mg, By Mouth, Daily at bedtime, # 30 tablet, 0 Refills, Maintenance, 05/24/18 15:34:04 EDT, Tablet Start Date: 05/24/18 Status: Ordered loratadine 10 mg oral tablet 10 mg, 1, tablet, By Mouth, Daily, # 30 tablet, Refills 11, Tot. Refills 11, Maintenance, 02/25/19 16:55:00 EST, Route to Pharmacy Electronically, [facility], 158, cm, 02/14/19 7:55:00 EST, Height, 61.9, kg, 02/12/19 10:17:00... Start Date: 02/25/19 Status: Ordered montelukast 10 mg oral tablet 10 mg, 1, tablet, By Mouth, Daily in PM, # 90 tablet, Refills 3, Tot. Refills 3, Maintenance, 08/15/19 16:21:00 EDT, Route to Pharmacy Electronically, [facility], 160, cm, 08/15/19 13:45:00 EDT, Height, 56.5, kg, 05/29/19 13:36:00... Start Date: 08/15/19 Status: Ordered ProAir HFA 90 mcg/inh inhalation aerosol with adapter 2, puffs, Inhalation, Every 4 hours, PRN, # 8.5 Gm, Refills 2, Tot. Refills 2, Maintenance, 04/29/19 11:32:00 EST, Aerosol, Route to Pharmacy Electronically, NCPDP_[id number], [facility], 160, cm, 04/29/19 10:47:00 EST, Height... Start Date: 04/29/19 Status: Ordered Topamax 50 mg oral tablet See Instructions, take 1 tab in am and 2 tab at bedtime. If AM dose causes bad sedation, add to HS dose., # 90 tablet, 6 Refills, Maintenance, 03/12/20 11:09:00 EST, Tablet, [facility], weaning zonegran off by 25mg every 2 days t... Start Date: 03/12/20 Status: Ordered ubrogepant 100 mg oral tablet 1 tablet = 100 mg, By Mouth, Daily, # 10 tablet, 6 Refills, Soft Stop, 03/12/20 11:04:00 EST, [facility], Partial fill upon patient request if the prescription is for a schedule II opioid drug., 160.02, cm, 03/10/20 8:18:00 EST, H... Start Date: 03/12/20 Stop Date: 10/08/20 Status: Ordered Problem List Condition Effective Dates Status Health Status Inform ant Allergic rhinitis(Confirmed) Active Asthma(Confirmed) 1, 2 Active B12 deficiency(Confirmed) Active Bipolar disorder NOS(Confirmed) Active Cervical radiculopathy = MR*I(Confirmed) Active Chronic diarrhea(Confirmed) Active Chronic sinusitis sx September 2019(Confirmed) Active Depression(Confirmed) 3 Active EKG abnormality qs v1 chronic(Confirmed) Active Multiple environmental aller gies immujnotherapy(Confirmed) Active Esophageal reflux (GERD) egd 2017(Confirmed) Active Anxiety disorder(Confirmed) Active Genital herpes(Confirmed) 4 06/18/15 Active H/O laparoscopic adjustable gastric banding 2007/Feb 2021(Confirmed) 5 Active History of cholecystectomy(Confirmed) 04/10/17 Active Hypoglycemia(Confirmed) 6, 7, 8 Active Irregular menses(Confirmed) 9 Active Spondylosis of lumbar spine MRI 2017 sx 2018(Confirmed) Active Adnexal mass(Confirmed) Active Migraines(Confirmed) 10, 11 Active Ovarian cyst(Confirmed) 12 Active Leg paresthesia(Confirmed) 07/24/17 Active Personal history of gastric bypass ? Roiux en y(Confirmed) 13, 14 Active Dumping syndrome(Confirmed) 15, 16, 17 Active Impingement syndrome of shoulder(Confirmed) 18 Active Fatty liver(Confirmed) 19, 20, 21 10/09/16 Active Vitamin D deficiency(Confirmed) Active 1resolved after weight loss 2chronic perst 3folowed by mental health;recent hospitalization 4gyn 90610 6testing negative insulinoma 7likley dumping sydrome 8abnormal GTT ;sugar 36 two hours into test 9sees gi 10normal CT brain 11new 125.3 cm,right per ct scan recent;seeing gynecology soon;they will review 13vit d deficiency;correct [id number] 15per endocrinology monitor 16correction refer GTT; 2 hour glucose 36 17refer GGT 18seeing ortho;pre op 19asma,ama neg/cerulopalsmain wnl,AAT wnl 20Negative hep A antibody positive hep B surface antibody negative antigen negative hep C, normal ferritin 21ukltrasound Social History Social History Type Response Smoking Status Never smoker entered on: 02/20/13 Sex
--- OUTSIDE RECORDS SUMMARY | 2022-08-17 08:19 | XMS_ITS | Continuity of Care Document ---
Author Name Unknown Organization [facility] Address [address] [place] [id number]- Care Team Providers Care Electronics Tester Name Role Phone Louisa LANDRUM, Taras Fuentes Primary Care Physician Encounter [facility] Date(s): 06/30/20 - 07/30/20 [facility] [address] [place] [id number]- Allergies, Adverse Reactions, Alerts Substance Reaction Severity [...] toxoids (Td) 08/03/05 Given 1Result Comment: [12/07/2017] [id number] 2Result Comment: [12/21/2016] [facility]: [id number] 3Result Comment: [06/10/2015] #3 4Admin Note: per pt 5Admin Note: given in clinic Medications acarbose 25 mg oral tablet 1 tablet = 25 mg, By Mouth, 3 times a day, Take 1 tablet 3 times daily with meals. Add to 50mg dosefor total of 75mg 3 times daily. E11.65, # 270 tablet, 3 Refills, Maintenance, 07/15/20 12:23:00 EDT, Tablet, [facility], Partial... Start Date: 07/15/20 Status: Ordered acarbose 50 mg oral tablet 1 tablet = 50 mg, By Mouth, 3 times a day, Take 3 times daily with meals. E11.65, # 90 tablet, 5 Refills, Maintenance, 07/13/20 16:29:00 EDT, Tablet, [facility], Partial fill upon patient request if the prescription is for a sched... Start Date: 07/13/20 Status: Ordered Aerochamber See Instructions, # 1 each, Refills [...] 0 Refills, Maintenance, 07/03/19 13:59:00 EDT, Solution, [facility], 160, cm, 05/29/19 13:36:00 EDT, Height, 56.5, kg, 03... Start Date: 07/03/19 Status: Ordered amitriptyline 25 mg oral tablet 50 mg, 2, tablet, By Mouth, Daily at bedtime, Refills 0, Maintenance, 06/29/20 9:52:00 EDT Start Date: 06/29/20 Status: Ordered amitriptyline 50 mg oral tablet 1 tablet = 50 mg, By Mouth, Daily at bedtime, # 30 tablet, 5 Refills, Maintenance, 07/22/20 8:03:00EDT, [facility], Partial fill upon patient request if the prescription is for a schedule II opioid drug., 158.02, cm, 07/06/20 6:4... Start Date: 07/22/20 Status: Ordered buPROPion 300 mg/24 hours (XL) oral tablet, extended release 1 tablet = 300 mg, By Mouth, Daily in AM, 0 Refills, Maintenance, 09/03/19 12:26:00 EDT Start Date: 09/03/19 Status: Ordered Dexilant 60 mg oral delayed release capsule 1 capsule = 60 mg, By Mouth, 2 times a day, # 60 capsule, 5 Refills, Maintenance, 05/07/20 15:54:00EST, [facility], 160.02, cm, 05/01/20 9:18:00 EST, Height, [...] 1 Refills, Soft Stop, 11/20/19 11:59:00 EDT, [facility], 160.02, cm, 11/15/19 10:05:00 EDT, [...] 02/25/19 16:55:00 EST, Route to Pharmacy Electronically, [facility], 158, cm, 02/14/19 7:55:00 EST, Height, 61.9, kg, 02/12/19 10:17:00... Start Date: 02/25/19 Status: Ordered montelukast 10 mg oral tablet 10 mg, 1, tablet, By Mouth, Daily in PM, # 90 tablet, Refills 3, Tot. Refills 3, Maintenance, 08/15/19 16:21:00 EDT, Route to Pharmacy Electronically, [facility], 160, cm, 08/15/19 13:45:00 EDT, Height, 56.5, kg, 05/29/19 13:36:00... Start Date: 08/15/19 Status: Ordered ProAir HFA 90 mcg/inh inhalation aerosol with adapter 2, puffs, Inhalation, Every 4 hours, PRN, # 8.5 Gm, Refills 2, Tot. Refills 2, Maintenance, 04/29/19 11:32:00 EST, Aerosol, Route to Pharmacy Electronically, NCPDP_[id number], [facility], 160, cm, 04/29/19 10:47:00 EST, Height... Start Date: 04/29/19 Status: Ordered rifAXIMin 550 mg oral tablet 1 tablet = 550 mg, By Mouth, 3 times a day, # 42 tablet, 0 Refills, Maintenance, 07/14/20 13:37:00 EDT, Tablet, [facility], Partial fill upon patient request if the prescription is for a schedule II opioid drug., 158.02, cm, 07/06... Start Date: 07/14/20 Stop Date: 07/28/20 Status: Ordered Topamax 50 mg oral tablet See Instructions, take 1 tab in am and 2 tab at bedtime. If AM dose causes bad sedation, add to HS dose., # 90 tablet, 6 Refills, Maintenance, 03/12/20 11:09:00 EST, Tablet, [facility], weaning zonegran off by 25mg every 2 days t... Start Date: 03/12/20 Status: Ordered Trazodone By Mouth, 2 times a day, 0 Refills, Maintenance, 06/29/20 9:52:00 EDT, Partial fill upon patient request if the prescription is for a schedule II opioid drug. Start Date: 06/29/20 Status: Ordered ubrogepant 100 mg oral tablet 1 tablet = 100 mg, By Mouth, Daily, # 10 tablet, 6 Refills, Soft Stop, 03/12/20 11:04:00 EST, [facility], Partial fill upon patient request if the prescription is for a schedule II opioid drug., 160.02, cm, 03/10/20 8:18:00 EST, H... Start Date: 03/12/20 Stop Date: 10/08/20 Status: Ordered vancomycin 125 mg oral capsule See Instructions, 1cap PO 4x a day x10d THEN 1cap PO 2x a day x 7d THEN 1cap PO 1x a day x 7d THEN 1cap PO every other day for 2 weeks then stop, # 68 capsule, 0 Refills, Maintenance, 06/13/20 14:10:00 EDT, Capsule, [facility],... Start Date: 06/13/20 Status: Ordered Problem List Condition Effective Dates Status Health Status Inform ant Allergic rhinitis(Confirmed) Active Asthma(Confirmed) 1, 2 Active B12 deficiency(Confirmed) Active Bipolar disorder NOS(Confirmed) Active Cervical radiculopathy = MR*I(Confirmed) Active Chronic diarrhea(Confirmed) Active Chronic sinusitis sx September 2019(Confirmed) Active EKG abnormality qs v1 chronic(Confirmed) Active Multiple environmental aller gies immujnotherapy(Confirmed) Active Esophageal reflux (GERD) egd 2017(Confirmed) Active Anxiety disorder(Confirmed) Active Genital herpes(Confirmed) 3 06/18/15 Active H/O laparoscopic adjustable gastric banding 2007/Feb 2021(Confirmed) 4 Active History of cholecystectomy(Confirmed) 04/10/17 Active Hypoglycemia(Confirmed) 5, 6, 7 Active Irregular menses(Confirmed) 8 Active Spondylosis of lumbar spine MRI 2017 sx 2018(Confirmed) Active Adnexal mass(Confirmed) Active Migraines(Confirmed) 9, 10 Active Obesity(Confirmed) Active Osteoporosis(Confirmed) 07/03/20 Active Ovarian cyst(Confirmed) 11 Active Leg paresthesia(Confirmed) 07/24/17 Active Personal history of gastric bypass ? 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 Impingement syndrome of shoulder(Confirmed) 17 Active Fatty liver(Confirmed) 18, 19, 20 10/09/16 Active Vitamin D deficiency(Confirmed) Active 1resolved after weight loss 2chronic perst 3gyn 48109 5testing negative insulinoma 6likley dumping sydrome 7abnormal GTT ;sugar 36 two hours into test 8sees gi 9normal CT brain 10new 115.3 cm,right per ct scan recent;seeing gynecology soon;they will review 12vit d deficiency;correct [id number] 14per endocrinology monitor 15correction refer GTT; 2 hour glucose 36 16refer GGT 17seeing ortho;pre op 18asma,ama neg/cerulopalsmain wnl,AAT wnl 19Negative hep A antibody positive hep B surface antibody negative antigen negative hep C, normal ferritin 20ukltrasound Social History Social History Type Response Smoking Status Never smoker entered on: 02/20/13 Sex
--- OUTSIDE RECORDS SUMMARY | 2022-08-17 08:19 | XMS_ITS | Continuity of Care Document ---
Author Name Unknown Organization [facility] Nikita Oswaldo Address [address] [place] [address]- Care Team Providers Care Sewing Supervisor Name Role Phone Taras Jasso MD Primary Care Physician [place] [facility] [place]): [place]19 [facility] Adult [address] [place] [address]- [facility] Encounter Diagnosis Acute bacterial sinusitis(Discharge Diagnosis) - 03/13/19 Attending Physician: Taras Jasso MD Allergies, Adverse [...] toxoids (Td) 08/03/05 Given 1Result Comment: [12/07/2017] [id number] 2Result Comment: [12/21/2016] [facility]: [id number] 3Result Comment: [06/10/2015] #3 4Admin Note: per pt 5Admin Note: given in clinic Medications acarbose 25 mg oral tablet 1 tablet = 25 mg, By Mouth, 3 times a day, # 90 tablet, 11 Refills, Maintenance, 08/07/18 8:44:14 EDT, Tablet Start Date: 08/07/18 Status: Ordered Aerochamber See Instructions, # 1 application, Maintenance, Use with MDI, 03/16/15 10:47:41, Compound Start Date: 03/16/15 Status: Ordered Dexilant 60 mg oral delayed release capsule 1 capsule = 60 mg, By Mouth, 2 times a day, # 60 capsule, 5 Refills, Maintenance, 12/31/18 11:53:09EDT Start Date: 12/31/18 Status: Ordered Dexilant 60 mg oral delayed release capsule 1 capsule = 60 mg, 2 times a day, 0 Refills, Maintenance, 10/04/16 6:51:32 EDT, EC Capsule Start Date: 10/04/16 Status: Ordered doxycycline hyclate 100 mg oral capsule 1 capsule = 100 mg, By Mouth, 2 times a day, for 10 days, may take with food to minimize abdominal discomfort, # 20 capsule, 0 Refills, Acute 03/23/19 8:49:00 EST, 03/13/19 8:49:00 EST, Capsule, [facility] - , 158, cm, 03/13/19 8... Start Date: 03/13/19 Stop Date: 03/23/19 Status: Ordered fludrocortisone 0.1 mg oral tablet 1 tablet = 0.1 mg, By Mouth, 2 times a day, take with full glass of water, # 60 Doses, 11 Refills, Maintenance, 05/15/18 9:07:39 EDT, Tablet, new dose Start Date: 05/15/18 Status: Ordered Freestyle Lite Lancets See Instructions, # 150 each, Refills 5, Tot. Refills 5, Maintenance, test BG 4x daily, E16.2, 06/22/16 11:07:54, Compound Start Date: 06/22/16 Status: Ordered Freestyle Lite Monitor See Instructions, # 1 each, Refills 1, Tot. Refills 1, Maintenance, test BG 4x daily, E16.2, 06/22/16 11:07:55, Compound Start Date: 06/22/16 Status: Ordered Freestyle Lite Test Strips See Instructions, # 100 each, Refills 11, Tot. Refills 11, Maintenance, Use to check blood sugar upto 3 times daily for hypoglycemia., 02/06/19 10:43:17 EST, duplicate from 02/05 due to routing error, Compound, 158, cm, 02/05/19 8:19:50 EST, Height, 6... Start Date: 02/06/19 Status: Ordered Glucagon Emergency Kit for Low Blood Sugar 1 mg injection See Instructions, for severe hypoglycemia. E 11.9, # 1 each, 1 Refills, Maintenance, 08/07/18 8:43:42 EDT Start Date: 08/07/18 Status: Ordered glucose 15 g/42 mL oral gel See Instructions, use for low blood sugar E 11.9, # 30 each, 6 Refills, Maintenance, 08/07/18 8:47:27 EDT Start Date: 08/07/18 Status: Ordered Glucose tablets Glucose tablets, See Instructions, # 200 each, Refills 11, Tot. Refills 11, Maintenance, Take 4 tablets at once up to 4 times per day for hypoglycemia. E 11.9, 08/07/18 8:44:34 EDT, Compound Start Date: 08/07/18 Status: Ordered Hose and mouth piece for nebulizer Hose and mouth piece for nebulizer, See Instructions, # 1 each, Refills 11, Tot. Refills 11, Maintenance, DX:J45.909 ASTHMA FAX [id number], 12/21/17 11:58:59 EDT, Compound Start Date: 12/21/17 Status: Ordered KlonoPIN 1 mg oral tablet 1 tablet = 1 mg, By Mouth, Daily at bedtime, 0 Refills, Maintenance, 07/30/15 13:45:25 Start Date: 07/30/15 Status: Ordered Latuda 60 mg oral tablet 1 tablet = 60 mg, By Mouth, Daily, # 30 tablet, 0 Refills, Maintenance, 05/24/18 15:34:04 EDT, Tablet Start Date: 05/24/18 Status: Ordered loratadine 10 mg oral tablet 10 mg, 1, tablet, By Mouth, Daily, # 30 tablet, Refills 11, Tot. Refills 11, Maintenance, 02/25/19 16:55:00 EST, Route to Pharmacy Electronically, [facility] - [facility], 158, cm, 02/14/19 7:55:00 EST, Height, 61.9, kg, 02/12/19 10:17:00... Start Date: 02/25/19 Status: Ordered Nasacort Allergy 24HR 55 mcg/inh nasal spray 2 sprays, Nares, Both, Daily, in each nostril, # 1 each, 0 Refills, Maintenance, 06/19/18 11:31:18 EDT, 2 sprays Nares, Both Daily,x14 days,Instr:in each nostril Start Date: 06/19/18 Stop Date: 07/03/18 Status: Ordered Nebulizer/Compressor See Instructions, # 1 each, Refills 0, Tot. Refills 0, Maintenance, dx: asthma including all related supplies, 03/26/15 13:57:11, Compound Start Date: 03/26/15 Status: Ordered ProAir HFA 90 mcg/inh inhalation aerosol with adapter 2, puffs, Inhalation, 4 times a day, PRN, # 8.5 Gm, Refills 0, Tot. Refills 0, Maintenance, 03/19/18 14:19:44 EST, Aerosol, Route to Pharmacy Electronically, NCPDP_[id number], [facility] Start Date: 03/19/18 Status: Ordered raNITIdine 150 mg oral tablet 1 tablet = 150 mg, By Mouth, 2 times a day, # 60 tablet, 2 Refills, Maintenance, 11/21/18 11:44:28 EDT, Tablet Start Date: 11/21/18 Status: Ordered SEROquel 200 mg oral tablet [...] Date: 02/14/19 Stop Date: 08/13/19 Status: Ordered Symbicort 160mcg/4.5mcg Inhaler 2, puffs, Inhalation, 2 times a day, in the morning and the evening rinse mouth and throat after use, # 1 each, Refills 0, Tot. Refills 0, Maintenance, 05/12/17 8:15:18, Aerosol, Route to Pharmacy Electronically, NCPDP_[id number], [facility]... Start Date: 05/12/17 Status: Ordered tiZANidine 2 mg oral tablet See Instructions, PRN, 1 tablet By Mouth daily at bedtime as needed for muscle spasm., # 20 tablet,Refills 0, Tot. Refills 0, Maintenance, as needed for muscle spasm, 09/27/18 10:41:08 EDT, Instructions Replace Required Details, Route to Pharmacy [facility]... Start Date: 09/27/18 Status: Ordered tiZANidine 4 mg oral tablet 4 mg, By Mouth, 3 times a day, not to exceed 3 doses/day caution: can cause light-headedness and drowsiness., # 42 tablet, Refills 0, Tot. Refills 0, Maintenance, 06/05/18 10:17:45 EDT, Print Requisition Start Date: 06/05/18 Stop Date: 06/19/18 Status: Ordered Topamax 50 mg oral tablet See Instructions, take 2 in the am, and take 3 at PM, # 150 tablet, 6 Refills, Maintenance, 02/14/19 8:04:14 EST, Tablet, INCREASED DOSE, 158, cm, 02/14/19 7:55:17 EST, Height, 61.9, kg, 02/12/19 10:17:29 EST, Dry Weight Start Date: 02/14/19 Status: Ordered Valtrex 500 mg oral tablet 500 mg, 1, tablet, By Mouth, Daily, PRN, Refills 0, Maintenance, Other, 06/21/15 9:40:22 Start Date: 06/21/15 Status: Ordered Vitamin B12 1000 mcg oral tablet 1 tablet = 1,000 mcg, By Mouth, Daily, # 30 tablet, 5 Refills, Maintenance, Tablet, 1 tablet By Mouth Daily,x30 days Start Date: 03/14/13 Stop Date: 09/10/13 Status: Ordered Vitamin D3 1000 intl units oral tablet 1 tablet = 1,000 International_Units, By Mouth, Daily, # 30 tablet, 11 Refills, Maintenance, 06/27/16 9:02:02, Tablet Start Date: 06/27/16 Status: Ordered Wellbutrin XL 300 mg/24 hours oral tablet, extended release 1 tablet = 300 mg, By Mouth, Every 24 hours, 0 Refills, Maintenance, 07/30/15 13:44:58 Start Date: 07/30/15 Status: Ordered Zoloft 50 mg oral tablet 1 tablet = 50 mg, By Mouth, Daily, 0 Refills, Maintenance, 01/24/19 9:17:50 EST Start Date: 01/24/19 Status: Ordered Problem List Condition Effective Dates Status Health Status Inform ant Acute bacterial sinusitis(Confirmed) Active Allergic rhinitis(Confirmed) Active Asthma(Confirmed) 1, 2 Active [...] lumbar spine MRI 2017 sx 2018(Confirmed) Active Migraines(Confirmed) 10, 11 Active Orthostatic hypotension(Confirmed) Active Ovarian cyst(Confirmed) 12 Active Leg paresthesia(Confirmed) 07/24/17 Active Personal history of gastric bypass 2003(Confirmed) 13, 14 Active Dumping syndrome(Confirmed) 15, 16, 17 Active Impingement syndrome of shoulder(Confirmed) 18 Active Fatty liver(Confirmed) 19, 20, 21 8/6/17 Active Vitamin D deficiency(Confirmed) Active 1resolved after weight loss 2chronic perst 3folowed by mental health;recent hospitalization 4gyn 30161 6testing negative insulinoma 7likley dumping sydrome 8abnormal GTT ;sugar 36 two hours into test 9sees gi 10normal CT brain 11new 125.3 cm,right per ct scan recent;seeing gynecology soon;they will review 13vit d deficiency;correct [id number] 15per endocrinology monitor 16correction refer GTT; 2 hour glucose 36 17refer GGT 18seeing ortho;pre op 19asma,ama neg/cerulopalsmain wnl,AAT wnl 20Negative hep A antibody positive hep B surface antibody negative antigen negative hep C, normal ferritin 21ukltrasound Diagnosis Diagnosis Type Effective Dates Health Status Cl inical Service Informant Acute bacterial sinusitis Discharge Diagnosis 03/13/19 Vital Signs Most recent to oldest [Reference Range]: 1 Height 158 cm (03/13/19 8:28 AM) Weight 62.1 kg (03/13/19 8:28 AM) Oxygen Saturation [94-100 %] 98 % (03/13/19 8:28 AM) Pulse Rate [55-90 bpm] 69 bpm (03/13/19 8:28 AM) Body Mass Index [18.5-24.99] 24.88 (03/13/19 8:28 AM) Blood Pressure [90-138/55-84 mm Hg] 98/6 6mm Hg (03/13/19 8:28 AM) Temperature [96.8-100.4 DegF] 98.2 DegF (03/13/19 8:28 AM) Mode of Delivery (Oxygen) Room air (03/13/19 8:28 AM) Blood pressure sites Arm, left (03/13/19 8:28 AM) Temperature Route Oral (03/13/19 8:28 AM) Weight Obtained Via Standing scale (03/13/19 8:28 AM) Social History Social History Type Response Smoking Status Never smoker entered on: 02/20/13 Sex
--- OUTSIDE RECORDS SUMMARY | 2022-08-17 08:19 | XMS_ITS | Continuity of Care Document ---
Author Name Unknown Organization [facility] Address Unknown Care Team Providers Care Field Hauler Name Role Phone Louisa LANDRUM, Taras Fuentes Primary Care Physician [phone] Encounter [facility] Date(s): 11/23/20 - 12/23/20 [facility] Allergies, Adverse Reactions, Alerts Substance Reaction Severity [...] toxoids (Td) 08/03/05 Given 1Result Comment: [12/07/2017] [id number] 2Result Comment: [12/21/2016] [facility]: [id number] 3Result Comment: [06/10/2015] #3 4Admin Note: per pt 5Admin Note: given in clinic Medications acarbose 50 mg oral tablet 1 tablet = 50 mg, By Mouth, 3 times a day, Take 3 times daily with meals. E11.65, # 90 tablet, 5 Refills, Maintenance, 07/13/20 16:29:00 EDT, Tablet, [facility], Partial fill upon patient request [...] 0 Refills, Maintenance, 07/03/19 13:59:00 EDT, Solution, [facility], 160, cm, 05/29/19 13:36:00 EDT, Height, 56.5, kg, 03... Start Date: 07/03/19 Status: Ordered Baqsimi One Pack 3 mg nasal powder See Instructions, 3 mg Once intrasnasally for severe hypoglycemia, # 2 each, 3 Refills, Soft Stop, 08/28/20 10:36:00 EDT, [facility], Partial fill upon patient request if the prescription is for a schedule II opioid drug., 158.02,... Start Date: 08/28/20 Status: Ordered buPROPion 300 mg/24 hours (XL) oral tablet, extended release 1 tablet = 300 mg, By Mouth, Daily in AM, 0 Refills, Maintenance, 09/03/19 12:26:00 EDT Start Date: 09/03/19 Status: Ordered Carafate 1 gm/10 ml oral suspension 0 Refills, Maintenance, 11/13/20 9:09:00 EDT, Partial fill upon patient request if the prescriptionis for a schedule II opioid drug. Start Date: 11/13/20 Status: Ordered cetirizine 10 mg oral tablet 1 tablet = 10 mg, By Mouth, Daily, # 30 tablet, 5 Refills, Maintenance, 11/06/20 10:28:00 EDT, Tablet, [facility], Replaces loratidine, 158.02, cm, 11/06/20 10:04:00 EDT, Height,67, kg, 09/11/19 11:20:00 EDT, Dry Weight Start Date: 11/06/20 Status: Ordered cholestyramine 4 gm/9 gm oral powder for reconstitution 1 pack/packet, By Mouth, Daily, # 30 each, 0 Refills, Maintenance, 11/13/20 9:09:00 EDT, REC Powder, Partial fill upon patient request if the prescription is for a schedule II opioid drug. Start Date: 11/13/20 Status: Ordered Dexilant 60 mg oral delayed release capsule 0 Refills, Maintenance, 11/13/20 9:09:00 EDT, Partial fill upon patient request if the prescriptionis for a schedule II opioid drug. Start Date: 11/13/20 Status: Ordered famotidine 40 mg oral tablet [...] 1 Refills, Soft Stop, 11/20/19 11:59:00 EDT, [facility], 160.02, cm, 11/15/19 10:05:00 EDT, Height, 67, kg, 09/11/19 11:20:00 EDT, Dry Weight Start Date: 11/20/19 Status: Ordered Latuda 60 mg oral tablet 1 tablet = 60 mg, By Mouth, Daily at bedtime, # 30 tablet, 0 Refills, Maintenance, 05/24/18 15:34:04 EDT, Tablet Start Date: 05/24/18 Status: Ordered meclizine 25 mg oral tablet See Instructions, PRN for dizziness, Take 1 tablet every 8 hours as needed for dizziness, # 15 tablet, 0 Refills, Maintenance, 11/03/20 7:49:00 EDT, Tablet, [facility], Partial fill upon patient request if the prescription is for... Start Date: 11/03/20 Status: Ordered montelukast 10 mg oral tablet 10 mg, 1, tablet, By Mouth, Daily in PM, # 90 tablet, Refills 3, Tot. Refills 3, Maintenance, 08/15/19 16:21:00 EDT, Route to Pharmacy Electronically, [facility], 160, cm, 08/15/19 13:45:00 EDT, [...] 6 Refills, Maintenance, 12/10/20 12:36:00 EDT,DIS Tablet, [facility], has t... Start Date: 12/10/20 Stop Date: 07/08/21 Status: Ordered Sheridan 0.65% nasal spray 2 sprays, Nares, Both, 4 times a day, # 1 each, 0 Refills, Maintenance, 10/30/20 11:34:00 EDT, [facility], Partial fill upon patient request if the prescription is for a scheduleII opioid drug., 2 sprays Nares, Both 4 times a day... Start Date: 10/30/20 Status: Ordered ProAir HFA 90 mcg/inh inhalation aerosol with adapter 2, puffs, Inhalation, Every 4 hours, PRN, # 8.5 Gm, Refills 2, Tot. Refills 2, Maintenance, 04/29/19 11:32:00 EST, Aerosol, Route to Pharmacy Electronically, NCPDP_[id number], [facility] - [facility], 160, cm, 04/29/19 10:47:00 EST, Height... Start Date: 04/29/19 Status: Ordered Reclast = 5 mg, IV Infusion, Once, 0 Refills, Maintenance, 11/06/20 10:24:00 EDT, administered at [facility] 10/2020 Start Date: 11/06/20 Status: Ordered Symbicort 160mcg/4.5mcg Inhaler 2, puffs, Inhalation, 2 times a day, with spacer., # 10.2 Gm, Refills 11, Route to Pharmacy Electronically, NCPDP_[id number], [facility], 158.02, cm, 11/13/20 8:38:00 EDT, Height, 67, kg, 09/11/19 11:20:00 EDT, Dry Weight Start Date: 11/20/20 Status: Ordered Trazodone By Mouth, 2 times a day, 0 Refills, Maintenance, 06/29/20 9:52:00 EDT, Partial fill upon patient request if the prescription is for a schedule II opioid drug. Start Date: 06/29/20 Status: Ordered Problem List Condition Effective Dates [...] classical migraine(Confirmed) Active Migraines(Confirmed) 9, 10 Active Obesity(Confirmed) Active Orthostatic hypotension(Confirmed) Active Osteoporosis endocrinology(Confirmed) 07/03/20 Active Ovarian cyst(Confirmed) 11 Active Leg paresthesia(Confirmed) 07/24/17 Active Personal history of gastric bypass ? 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 Impingement syndrome of shoulder(Confirmed) 17 Active Fatty liver(Confirmed) 18, 19, 20 10/09/16 Active Vitamin D deficiency(Confirmed) Active 1resolved after weight loss 2chronic perst 3gyn 05694 5testing negative insulinoma 6likley dumping sydrome 7abnormal GTT ;sugar 36 two hours into test 8sees gi 9normal CT brain 10new 115.3 cm,right per ct scan recent;seeing gynecology soon;they will review 12vit d deficiency;correct [id number] 14per endocrinology monitor 15correction refer GTT; 2 hour glucose 36 16refer GGT 17seeing ortho;pre op 18asma,ama neg/cerulopalsmain wnl,AAT wnl 19Negative hep A antibody positive hep B surface antibody negative antigen negative hep C, normal ferritin 20ukltrasound Social History Social History Type Response Smoking Status Never smoker entered on: 02/20/13 Sex
--- OUTSIDE RECORDS SUMMARY | 2022-08-17 08:19 | XMS_ITS | Continuity of Care Document ---
Author Name Unknown Organization [facility] Address [address] [place] [id number]- Care Team Providers Care Glass Embosser Name Role Phone Eran Sue JOHNSON Primary Care Physician [phone] [place] [facility] [place]21 [facility] [address] [place] [id number]- [place] Allergies, Adverse Reactions, Alerts Substance Reaction Severity Status Dust Allergy to pollen Active Pollen seasonal allergies respiratory symptoms Active Incruse Ellipta 1 lightheaded and migraine Active 1dizzy Immunizations Given and Recorded Vaccine Date Status Refusal Reason SARS-CoV-2 mRNA ([id number]) vax 05/01/21 Recorded influenza virus vaccine, inactivated [...] toxoids (Td) 08/03/05 Given 1Result Comment: [12/07/2017] [id number] 2Result Comment: [12/21/2016] [facility]: [id number] 3Result Comment: [06/10/2015] #3 4Admin Note: per [...] 3 Refills, Maintenance, 02/03/21 8:34:00 EST, Tablet, [facility], Partial fill upon patient request if the prescript... Start Date: 02/03/21 Status: Ordered acarbose 50 mg oral tablet 1 tablet = 50 mg, By Mouth, 3 times a day, Take 1 tab (plus 1 25mg tab), 3 times daily with meals.,# 270 tablet, 3 Refills, Maintenance, 02/03/21 8:34:00 EST, Tablet, [facility], Partial fill upon patient request if the prescript... Start Date: 02/03/21 Status: Ordered Baqsimi One Pack 3 mg nasal powder See Instructions, 3 mg Once intrasnasally for severe hypoglycemia, # 2 each, 3 Refills, Soft Stop, 08/28/20 10:36:00 EDT, [facility], Partial fill upon patient [...] Refills, Maintenance, 03/03/21 16:42:00 EST, REC Powder, [facility], Partial fill upon patient [...] per PCP, # 30 mL, 1 Refills, [facility], 158, cm, 04/09/21 8:13:00 EST, Height, 80.6, kg, 03/08/21 12:18:00 EST, Dry Weight Start Date: 04/30/21 Status: Ordered Dexilant 60 mg oral delayed release capsule 1 capsule = 60 mg, By Mouth, 2 times a day, 30 min before meal, # 60 capsule, 5 Refills, Maintenance, 04/16/21 14:29:00 EST, CR Capsule, [facility], Partial fill upon patient request if the prescription is for a schedule II opioi... Start Date: 04/16/21 Status: Ordered Emgality Prefilled Pen 120 mg/mL subcutaneous solution = 240 mg, Subcutaneous Injection, Once, Loading Dose, # 2 kit, 0 Refills, Soft Stop, 03/16/21 16:05:00 EST, [facility], Partial fill upon patient request if the prescription is for a schedule II opioid drug., 158, cm, 03/11/21 9:1... Start Date: 03/16/21 Status: Ordered EPINEPHrine 1 mg/mL injectable solution 0.3 mL = 0.3 mg, Intramuscular, Once, # 1 mL, 1 Refills, Soft Stop, 03/08/21 15:07:00 EST, Solution, [facility], Partial fill upon patient [...] 1 Refills, Soft Stop, 11/20/19 11:59:00 EDT, [facility], 160.02, cm, 11/15/19 10:05:00 EDT, Height, 67, kg, 09/11/19 11:20:00 EDT, Dry Weight Start Date: 11/20/19 Status: Ordered Lidocaine Viscous 2% solution 5 mL = 0.1 Gm, By Mouth, 4 times a day, PRN for epigastric pain, # 200 mL, 1 Refills, Maintenance, 04/06/21 9:45:00 EST, Solution, [facility], Partial fill upon patient request if the prescription is for a schedule II opioid drug.... Start Date: 04/06/21 Status: Ordered loratadine 10 mg oral tablet 10 mg, 1, tablet, By Mouth, Daily, # 90 tablet, Refills 0, Tot. Refills 0, Maintenance, 05/24/21 11:12:00 EDT, Route to Pharmacy Electronically, [facility], 158, cm, 05/14/21 7:52:00 EST, Height, 80.6, kg, 03/08/21 12:18:00 EST, D... Start Date: 05/24/21 Status: Ordered meclizine 25 mg oral tablet See Instructions, PRN for dizziness, Take 1 tablet every 8 hours as needed for dizziness, # 15 tablet, 0 Refills, Maintenance, 11/03/20 7:49:00 EDT, Tablet, [facility], Partial fill upon patient request if the prescription is for... Start Date: 11/03/20 Status: Ordered montelukast 10 mg oral tablet 10 mg, 1, tablet, By Mouth, Daily in PM, # 90 tablet, Refills 1, Tot. Refills 1, Maintenance, 04/23/21 12:32:00 EST, Route to Pharmacy Electronically, [facility], 158, cm, 04/09/21 8:13:00 [...] 6 Refills, Maintenance, 12/10/20 12:36:00 EDT,DIS Tablet, [facility], has t... Start Date: 12/10/20 Stop Date: 07/08/21 Status: Ordered Cannon 0.65% nasal spray 2 sprays, Nares, Both, 4 times a day, # 1 each, 3 Refills, Maintenance, 05/14/21 11:40:00 EST, [facility], Partial fill upon patient request if the prescription is for a scheduleII opioid drug., 2 sprays Nares, Both 4 times a day... Start Date: 05/14/21 Status: Ordered ProAir HFA 90 mcg/inh inhalation aerosol with adapter 2, puffs, Inhalation, Every 4 hours, PRN, # 8.5 Gm, Refills 1, Tot. Refills 1, Maintenance, 05/13/21 19:25:00 EST, Aerosol, Route to Pharmacy Electronically, NCPDP_[id number], [facility], 158, cm, 05/06/21 6:58:00 EST, Height, 80.... Start Date: 05/13/21 Status: Ordered Reclast = 5 mg, IV Infusion, Once, 0 Refills, Maintenance, 11/06/20 10:24:00 EDT, administered at [facility] 10/2020 Start Date: 11/06/20 Status: [...] Gm, Refills 11, Route to Pharmacy Electronically, NCPDP_[id number], [facility], 158.02, cm, 11/13/20 8:38:00 EDT, [...] 1resolved after weight loss 2chronic perst 3gyn 20050 5testing negative insulinoma 6likley dumping sydrome 7abnormal GTT ;sugar 36 two hours into test 8sees gi 9normal CT brain 10new 115.3 cm,right per ct scan recent;seeing gynecology soon;they will review 12vit d deficiency;correct [id number] 14per endocrinology monitor 15correction refer GTT; 2 hour glucose 36 16refer GGT 17seeing ortho;pre op 18asma,ama neg/cerulopalsmain wnl,AAT wnl 19Negative hep A antibody positive hep B surface antibody negative antigen negative hep C, normal ferritin 20ukltrasound Social History Social History Type Response Smoking Status Never smoker entered on: 02/20/13 Sex
--- OUTSIDE RECORDS SUMMARY | 2022-08-17 08:19 | XMS_ITS | Continuity of Care Document ---
Author Name Unknown Organization [facility] Address [address] [place] [id number]- Care Team Providers Care Loader Helper Name Role Phone Eran Sue JOHNSON Primary Care Physician [place] [facility] [place] 06/24/22 [facility] [address] [place] [id number]- [place] Allergies, Adverse Reactions, Alerts Substance Reaction Severity Status Dust Allergy to pollen Active Pollen seasonal allergies respiratory symptoms Active Incruse Ellipta 1 lightheaded and migraine Active 1dizzy Immunizations Given and Recorded Vaccine Date Status Refusal Reason [id number] 12y+ bivalent booster vax 1 12/24/21 Given [...] vaccine, inactivated 02/08/11 Give n SARS-CoV-2 mRNA ([id number]) vax 05/01/21 Recorded zoster vaccine, inactivated 11/03/20 [...] tetanus-diphtheria toxoids (Td) 08/03/05 Given 1Result Comment: [id number] 2Result Comment: [id number] 3Result Comment: [12/07/2017] [id number] 4Result Comment: [12/21/2016] [facility]: [id number] 5Result Comment: [06/10/2015] #3 6Admin Note: per pt 7Admin Note: given in clinic Medications acetaminophen 500 mg oral tablet 2 tablet = 1,000 mg, By Mouth, Every 6 hours, PRN as needed for fever, # 200 tablet, 0 Refills, Maintenance, 12/03/21 10:17:00 EDT, Tablet, [facility], Partial fill upon patient request if the prescription is for a schedule II opi... Start Date: 12/03/21 Status: Ordered Albuterol (Eqv-ProAir HFA) 90 mcg/inh inhalation aerosol 2 puffs, Inhalation, Every 4 hours, PRN NEEDED FOR WHEEZING, # 8.5 Gm, 5 Refills, Maintenance, 03/09/22 11:21:00 EST, [facility], 17, INHALE TWO PUFFS BY MOUTH [...] 6 Refills, Maintenance, 11/03/21 8:23:00 EDT, Tablet, [facility], 2 tablet By Mouth 2 times a day, 158, cm, 11/03/21 8:01:00 EDT,Height, 71.5, kg, 09/01/21 16:21:00 EDT, Dry Weight Start Date: 11/03/21 Status: Ordered Carafate 1 gm/10 ml oral suspension 10 mL = 1 Gm, By Mouth, 3 times a day before meals and bedtime, # 1,200 mL, 5 Refills, Maintenance,04/29/22 9:16:00 EST, [facility] #[id number], Partial fill upon patient request if the prescription is for a schedule II opioid drug., 158, cm, 02... Start Date: 04/29/22 Status: Ordered cetirizine 10 mg oral tablet 1 tablet, By Mouth, Daily, # 30 tablet, 5 Refills, Maintenance, 06/03/22 11:40:00 EDT, [facility], 158, cm, 05/25/22 13:59:00 EDT, Height, [...] Refills, Maintenance, 05/30/22 7:57:00 EDT, CR Capsule, [facility], Partial fill upon patient request if the prescription is for a schedule II opioid... Start Date: 05/30/22 Status: Ordered Emgality Prefilled Pen 120 mg/mL subcutaneous solution = 120 mg, Subcutaneous Injection, Once, Maintenance Dose, # 3 kit, 2 Refills, Soft Stop, 03/17/22 8:08:00 EST, [facility], requesting 3 month supply for cheaper martinez. with 2 refills, 163, albertina, 03/15/22 10:13:00 EST, Height, 68.1,... Start Date: 03/17/22 Status: Ordered EPINEPHrine 1 mg/mL injectable solution 0.3 mL = 0.3 mg, Intramuscular, Once, # 1 mL, 1 Refills, Soft Stop, 03/08/21 15:07:00 EST, Solution, [facility], Partial fill upon patient request if the prescription is for a schedule II opioid drug., 158, cm, 03/08/21 12:18:00 E... Start Date: 03/08/21 Status: Ordered famotidine 40 mg oral tablet 1 tablet = 40 mg, By Mouth, 2 times a day, # 60 tablet, 6 Refills, Maintenance, 01/31/22 14:05:00 EST, Suspension, [facility], Partial fill upon patient request if the prescription is for a schedule II opioid drug., 163, cm, 01/18... Start Date: 01/31/22 Stop Date: 08/29/22 Status: Ordered Fiber Choice 1.5 g oral tablet, chewable 1 tablet = 1.5 Gm, Chew, 3 times a day, # 90 tablet, 0 Refills, Maintenance, 04/09/22 15:16:00 EST,Chew Tablet, [facility][id number], Partial fill upon patient request if the [...] Refills, Maintenance, 04/09/22 15:16:00 EST, REC Powder, [facility] #[id number], Partial fill upon patient request if the prescription is for a schedule II opioid drug., 17 Gm... Start Date: 04/09/22 Status: Ordered montelukast 10 mg oral tablet 1, tablet, By Mouth, Daily in PM, # 90 tablet, Refills 1, Tot. Refills 1, Maintenance, 11/14/21 11:28:00 EDT, Route to Pharmacy Electronically, [facility], 158, cm, 11/03/21 8:01:00 EDT, Height, 71.5, kg, 09/01/21 16:21:00 EDT, . Start Date: 11/14/21 Status: Ordered Nurtec ODT 75 mg oral tablet, disintegrating See Instructions, TAKE ONE TABLET DAILY NEEDED FOR migraines, DO NOT EXCEED ONE TABLET IN 24 HOURS, # 8 tablet, 6 Refills, Maintenance, 12/28/21 15:14:00 EDT, [facility], 163,cm, 12/24/21 8:20:00 EDT, Height, 67, [...] kg, 03/24/22... Start Date: 04/29/22 Status: Ordered Readi-Cat 2 oral suspension See Instructions, Dispense 2 bottles (450ml each bottle). Drink first bottle [address] scan[address] Drink second bottle [address] scan., # 2 each, 0 Refills, Maintenance, 04/06/22 15:29:00 EST, [facility] #[id number], Partial fi... Start Date: 04/06/22 Status: Ordered Reclast = 5 mg, IV Infusion, Once, 0 Refills, Maintenance, 11/06/20 10:24:00 EDT, administered at [facility] 10/2020 Start Date: 11/06/20 Status: Ordered Stool Softener + Stimulant Laxative 50 mg-8.6 mg oral capsule 1 capsule, By Mouth, Daily in PM, # 60 capsule, 0 Refills, Maintenance, 04/09/22 15:17:00 EST, Capsule, [facility] #[id number], Partial fill upon patient request if the prescription is for a schedule II opioid drug., 1 capsule By Mouth Daily in P... Start Date: 04/09/22 Status: Ordered Symbicort 160mcg/4.5mcg Inhaler 2, puffs, Inhalation, 2 times a day, rinse mouth and throat after use, # 10.2 Gm, Refills 2, Tot. Refills 2, Maintenance, 06/10/22 20:48:00 EDT, Route to Pharmacy Electronically, NCPDP_[id number], [facility], 158, cm, 06/07/22 10:... Start Date: 06/10/22 Status: Ordered Trintellix 10 mg oral tablet 1.5 tablet = 15 mg, By Mouth, Daily, # 30 tablet, [...] Active Vitamin D deficiency Confirmed Active 1gyn [id number] 3testing negative insulinoma 4likley dumping sydrome 5abnormal GTT ;sugar 36 two hours into test 6normal CT brain 7new 8resolved after weight loss 9chronic perst 105.3 cm,right per ct scan recent;seeing gynecology soon;they will review 11vit d deficiency;correct [id number] 13per endocrinology monitor 14correction refer GTT; 2 hour glucose 36 15refer GGT 16seeing ortho;pre op 17asma,ama neg/cerulopalsmain wnl,AAT wnl 18Negative hep A antibody positive hep B surface antibody negative antigen negative hep C, normal ferritin 19ukltrasound Social History Social History Type Response Smoking Status Never smoker entered on: 02/20/13 Sex Patient Care team information Care Team Personnel Name: Caitlyn Mcgee RN Position: [facility] RN Member Role: Primary Care Nurse Name: Sue Barillas NP Position: [facility] PCO Associate Professional Member Role: PCP Address: Address: [address] [place], [place] [address] Name: Andria Guadalupe RN Position: [facility] SN RN Member Role: Primary Care Nurse Name: Liz Martin RN Position: [facility] RN Member Role: Primary Care Nurse Name: Ambreen Mcmahon RN Position: [facility] RN Member Role: Primary Care Nurse Name: Irais Grijalva RN Position: [facility] RN Member Role: Primary Care Nurse Name: Autumn Martinez RN Position: [facility] SN RN Member Role: Primary Care Nurse Name: Liz English RN Position: [facility] RN Member Role: Primary Care Nurse Name: Dora Williamson RN Position: [facility] RN Member Role: Primary Care Nurse Care Team Related Persons Name: KHUSHI CUNNINGHAM Address: home [address] [place] [address] Name: BHUPINDER VENEGAS Address: home [address] [place] [address] Name: FELIPE FLORES Address: home [address] [place] [address] Name: ARNAV FLORES Address: home [address] [place] [address] Name: IRINA FLORES Address: home [address] [place] [address] Name: RUSLAN FLORES Address: home [address] [place] [address] Name: KAISER PLUNKETT Address: home [address] [place] [address]
--- OUTSIDE RECORDS SUMMARY | 2022-08-17 08:19 | XMS_ITS | Continuity of Care Document ---
Author Name Unknown Organization [facility] lt Address [address] [place] [address]- Care Team Providers Care Shear Assembler Name Role Phone Louisa LANDRUM, Taras Fuentes Primary Care Physician Encounter [facility] [place] Date(s): 10/09/19 - 10/16/19 [facility] [address] [place] [address]- [place] Encounter Diagnosis H/O laparoscopic adjustable gastric banding 2007(Discharge Diagnosis) - 10/09/19 Bipolar disorder NOS(Discharge Diagnosis) - 10/09/19 Anxiety disorder(Discharge Diagnosis) - 10/09/19 Adnexal mass(Discharge Diagnosis) - 10/09/19 Attending Physician: Not on Staff, Attending MD [...] toxoids (Td) 08/03/05 Given 1Result Comment: [12/07/2017] [id number] 2Result Comment: [12/21/2016] [facility] [place]: [id number] 3Result Comment: [06/10/2015] #3 4Admin Note: per [...] 0 Refills, Maintenance, 07/03/19 13:59:00 EDT, Solution, [facility], 160, cm, 05/29/19 13:36:00 EDT, Height, 56.5, kg, 03... Start Date: 07/03/19 Status: Ordered albuterol CFC free 90 mcg/inh inhalation aerosol 2, puffs, Inhalation, 4 times a day, PRN, # 25 Gm, Refills 0, Tot. Refills 0, Maintenance, 07/07/2012:36:00 EDT, Aerosol, Route to Pharmacy Electronically, NCPDP_[id number], [facility], 160, cm, 07/08/19 13:03:00 EDT, Height, 56.... Start Date: 07/08/19 Status: Ordered buPROPion 300 mg/24 hours (XL) oral tablet, extended release 1 tablet = 300 mg, By Mouth, Daily in AM, 0 Refills, Maintenance, 09/03/19 12:26:00 EDT Start Date: 09/03/19 Status: Ordered Dexilant 60 mg oral delayed release capsule 1 capsule = 60 mg, By Mouth, 2 times a day, # 60 capsule, 5 Refills, Maintenance, 07/30/19 10:21:00EDT, [facility], 160, cm, 07/08/19 13:03:00 EDT, Height, 56.5, kg, 05/29/19 13:36:00 EDT, Dry Weight Start Date: 07/30/19 Status: Ordered eletriptan 40 mg oral tablet 1 tablet = 40 mg, By Mouth, Daily, PRN for migraine headache, # 9 tablet, 5 Refills, Soft Stop, 07/16/19 9:23:00 EDT, Tablet, [facility], she has tried sumatriptan and rizatriptan. if insurance still declines let me know which I c... Start Date: 07/16/19 Stop Date: 01/12/20 Status: Ordered famotidine 20 mg oral tablet 20 mg, 1, tablet, By Mouth, Daily at bedtime, # 30 tablet, Refills 5, Tot. Refills 5, Maintenance, 05/17/19 12:02:00 EDT, Route to Pharmacy Electronically, [facility], 160, cm, 05/16/19 10:27:00 EDT, Height, 62.9, kg, 05/12/19 9:1... Start Date: 05/17/19 Status: Ordered famotidine 40 mg oral tablet 1/2 tablet, By Mouth, Daily at bedtime, famotidine 20mg backordered. please take 1/2 tab daily, # 30 each, 1 Refills, Maintenance, 07/30/19 10:21:00 EDT, [facility], 160, cm, 07/08/19 13:03:00 EDT, Height, 56.5, kg, 05/29/19 13:3... Start Date: 07/30/19 Status: Ordered Freestyle Lite Lancets See Instructions, [...] Dry Weight Start Date: 07/11/19 Status: Ordered KlonoPIN 1 mg oral tablet [...] 02/25/19 16:55:00 EST, Route to Pharmacy Electronically, [facility], 158, cm, 02/14/19 7:55:00 EST, Height, 61.9, kg, 02/12/19 10:17:00... Start Date: 02/25/19 Status: Ordered montelukast 10 mg oral tablet 10 mg, 1, tablet, By Mouth, Daily in PM, # 90 tablet, Refills 3, Tot. Refills 3, Maintenance, 08/15/19 16:21:00 EDT, Route to Pharmacy Electronically, [facility], 160, cm, 08/15/19 13:45:00 EDT, Height, 56.5, kg, 05/29/19 13:36:00... Start Date: 08/15/19 Status: Ordered ondansetron 4 mg oral tablet, disintegrating 1 tablet = 4 mg, By Mouth, Every 8 hours, PRN as needed for nausea/vomiting, # 9 tablet, 0 Refills,Maintenance, 10/06/19 21:07:00 EDT, DIS Tablet, [facility] Start Date: 10/06/19 Stop Date: 10/09/19 Status: Ordered ProAir HFA 90 mcg/inh inhalation aerosol with adapter 2, puffs, Inhalation, Every 4 hours, PRN, # 8.5 Gm, Refills 2, Tot. Refills 2, Maintenance, 04/29/19 11:32:00 EST, Aerosol, Route to Pharmacy Electronically, NCPDP_[id number], [facility], 160, cm, 04/29/19 10:47:00 EST, Height... Start Date: 04/29/19 Status: Ordered SEROquel 200 mg oral tablet 200 mg, 1, tablet, By Mouth, Daily at bedtime, Refills 0, Maintenance, 05/24/18 15:34:19 EDT Start Date: 05/24/18 Status: Ordered Symbicort 160mcg/4.5mcg Inhaler 2, puffs, Inhalation, 2 times a day, use with spacer chamber, # 1 each, Refills 11, Tot. Refills 11, Maintenance, 07/08/19 13:36:00 EDT, Route to Pharmacy Electronically, NCPDP_[id number], [facility], 160, cm, 07/08/19 13:03:00 ED... Start Date: 07/08/19 Status: Ordered Topamax 50 mg oral tablet 1 tablet = 50 mg, By Mouth, Daily at bedtime, after weaning off zonegran, take 50mg at HS for 2 weeks then increase to 100mg at HS, # 30 tablet, 6 Refills, Maintenance, 07/16/19 10:51:00 EDT, Tablet,[facility], weaning zonegran o... Start Date: 07/16/19 Stop Date: 02/11/20 Status: Ordered Zofran 4 mg oral tablet 1 tablet = 4 mg, By Mouth, Every 8 hours, PRN Nausea & Vomiting, # 30 tablet, 0 Refills, Maintenance, 09/30/19 11:23:00 EDT, [facility], 160.02, cm, 09/24/19 15:31:00 EDT, Height, 67, kg, 09/11/19 11:20:00 EDT, Dry Weight Start Date: 09/30/19 Status: Ordered Problem List Condition Effective Dates Status Health Status Inform ant Allergic rhinitis(Confirmed) Active Asthma(Confirmed) 1, 2 Active B12 deficiency(Confirmed) Active Bipolar disorder NOS(Confirmed) Active Cervical radiculopathy(Confirmed) Active Chronic sinusitis sx September 2019(Confirmed) Active [...] perst 3folowed by mental health;recent hospitalization 4gyn 7[address]33 6testing negative insulinoma 7likley dumping sydrome 8abnormal GTT ;sugar 36 two hours into test 9sees gi 10normal CT brain 11new 125.3 cm,right per ct scan recent;seeing gynecology soon;they will review 13vit d deficiency;correct [id number] 15per endocrinology monitor 16correction refer GTT; 2 hour glucose 36 17refer GGT 18seeing ortho;pre op 19asma,ama neg/cerulopalsmain wnl,AAT wnl 20Negative hep A antibody positive hep B surface antibody negative antigen negative hep C, normal ferritin 21ukltrasound Diagnosis Diagnosis Type Effective Dates Health Status Clinical Service Informant Adnexal mass Discharge Diagnosis 10/09/19 Bipolar disorder NOS Discharge Diagnosis 10/09/19 Anxiety disorder Discharge Diagnosis 10/09/19 H/O laparoscopic adjustable gastric banding 2007 Discharge Diagnosis 10/09/19 Vital Signs Most recent to oldest [Reference Range]: 1 Height 160.02 cm (10/09/19 11:15 AM) Weight 67.2 kg (10/09/19 11:15 AM) Oxygen Saturation [94-100 %] 98 % (10/09/19 11:15 AM) Pulse Rate [55-90 bpm] 74 bpm (10/09/19 11:15 AM) Body Mass Index [18.5-24.99] 26.24 *H* (10/09/19 11:15 AM) Blood Pressure [90-138/55-84 mm Hg] 100/ 68mm Hg (10/09/19 11:15 AM) Temperature [96.8-100.4 DegF] 97.9 DegF (10/09/19 11:15 AM) Mode of Delivery (Oxygen) Room air (10/09/19 11:15 AM) Blood pressure sites Arm, left (10/09/19 11:15 AM) Social History Social History Type Response Smoking Status Never smoker entered on: 02/20/13 Sex
--- OUTSIDE RECORDS SUMMARY | 2022-08-17 08:19 | XMS_ITS | Continuity of Care Document ---
Author Name Unknown Organization [facility] Address [address] [place] [address]- Care Team Providers Care Program Dir Name Role Phone Louisa LANDRUM, Taras Fuentes Primary Care Physician [place] [facility] [place] 09/01/20 - 10/01/[address] [address] Attending Physician: Konrad Curtis Admitting Physician: Konrad Curtis Referring Physician: AdmtrKonrad Allergies, Adverse Reactions, Alerts Substance Reaction Severity Status Dust Allergy to pollen Active Pollen seasonal allergies respiratory symptoms Active Incruse Ellipta 1 lightheaded and migraine Active 1dizzy Immunizations Given and Recorded Vaccine Date Status Refusal Reason zoster vaccine, inactivated 08/10/20 Recorded SARS-CoV-2 (COVID-19) [...] toxoids (Td) 08/03/05 Given 1Result Comment: [12/07/2017] [id number] 2Result Comment: [12/21/2016] [facility]: [id number] 3Result Comment: [06/10/2015] #3 4Admin Note: per pt 5Admin Note: given in clinic Medications acarbose 50 mg oral tablet 1 tablet = 50 mg, By Mouth, 3 times a day, Take 3 times daily with meals. E11.65, # 90 tablet, 5 Refills, Maintenance, 07/13/20 16:29:00 EDT, Tablet, [facility], Partial fill upon [...] 0 Refills, Maintenance, 07/03/19 13:59:00 EDT, Solution, [facility], 160, cm, 05/29/19 13:36:00 EDT, Height, 56.5, kg, 03... Start Date: 07/03/19 Status: Ordered amitriptyline 50 mg oral tablet 1 tablet = 50 mg, By Mouth, Daily at bedtime, # 30 tablet, 5 Refills, Maintenance, 07/22/20 8:03:00EDT, [facility], Partial fill upon patient request if the prescription is for a schedule II opioid drug., 158.02, cm, 07/06/20 6:4... Start Date: 07/22/20 Status: Ordered Baqsimi One Pack 3 mg nasal powder See Instructions, 3 mg Once intrasnasally for severe hypoglycemia, # 2 each, 3 Refills, Soft Stop, 08/28/20 10:36:00 EDT, [facility], Partial fill upon patient request if the prescription is for a schedule II opioid drug., 158.02,... Start Date: 08/28/20 Status: Ordered buPROPion 300 mg/24 hours (XL) oral tablet, extended release 1 tablet = 300 mg, By Mouth, Daily in AM, 0 Refills, Maintenance, 09/03/19 12:26:00 EDT Start Date: 09/03/19 Status: Ordered Freestyle Lite Lancets See Instructions, [...] 1 Refills, Soft Stop, 11/20/19 11:59:00 EDT, [facility], 160.02, cm, 11/15/19 [...] 02/25/19 16:55:00 EST, Route to Pharmacy Electronically, [facility], 158, cm, 02/14/19 7:55:00 EST, Height, 61.9, kg, 02/12/19 10:17:00... Start Date: 02/25/19 Status: Ordered montelukast 10 mg oral tablet 10 mg, 1, tablet, By Mouth, Daily in PM, # 90 tablet, Refills 3, Tot. Refills 3, Maintenance, 08/15/19 16:21:00 EDT, Route to Pharmacy Electronically, [facility], 160, cm, 08/15/19 13:45:00 EDT, Height, 56.5, kg, 05/29/19 13:36:00... Start Date: 08/15/19 Status: Ordered omeprazole 40 mg oral enteric coated capsule 1 capsule = 40 mg, By Mouth, 2 times a day, before a meal, 0 Refills, Maintenance, 08/27/20 9:43:00EDT, EC Capsule Start Date: 08/27/20 Status: Ordered pregabalin 75 mg oral capsule 1 capsule = 75 mg, By Mouth, Daily, # 30 capsule, 0 Refills, Maintenance, 08/27/20 9:45:00 EDT, Capsule, [facility], Partial fill upon patient request if the prescription is for a schedule II opioid drug., 158.02, cm, 08/27/20 9:2... Start Date: 08/27/20 Stop Date: 09/26/20 Status: Ordered ProAir HFA 90 mcg/inh inhalation aerosol with adapter 2, puffs, Inhalation, Every 4 hours, PRN, # 8.5 Gm, Refills 2, Tot. Refills 2, Maintenance, 04/29/19 11:32:00 EST, Aerosol, Route to Pharmacy Electronically, NCPDP_[id number], [facility], 160, cm, 04/29/19 10:47:00 EST, Height... Start Date: 04/29/19 Status: Ordered Symbicort 160mcg/4.5mcg Inhaler 2, puffs, Inhalation, 2 times a day, Refills 0, Maintenance, 08/27/20 9:43:00 EDT, Aerosol Start Date: 08/27/20 Status: Ordered Topamax 50 mg oral tablet 2 tablet = 100 mg, By Mouth, Daily at bedtime, # 60 tablet, 6 Refills, Maintenance, 08/04/20 11:44:00 EDT, Tablet, [facility], 158.02, cm, 07/06/20 6:49:00 EDT, Height, 67, kg, 09/11/19 11:20:00 EDT, Dry Weight Start Date: 08/04/20 Stop Date: 03/02/21 Status: Ordered Trazodone By Mouth, 2 times a day, 0 Refills, Maintenance, 06/29/20 9:52:00 EDT, Partial fill upon patient request if the prescription is for a schedule II opioid drug. Start Date: 06/29/20 Status: Ordered ubrogepant 100 mg oral tablet 1 tablet = 100 mg, By Mouth, Daily, # 10 tablet, 6 Refills, Soft Stop, 08/04/20 11:37:00 EDT, [facility], Partial fill upon patient request if the prescription is for a schedule II opioid drug., 158.02, cm, 07/06/20 6:49:00 EDT, [facility].. Start Date: 08/04/20 Stop Date: 03/02/21 Status: Ordered Problem List Condition Effective Dates [...] 1resolved after weight loss 2chronic perst 3gyn 97796 5testing negative insulinoma 6likley dumping sydrome 7abnormal GTT ;sugar 36 two hours into test 8sees gi 9normal CT brain 10new 115.3 cm,right per ct scan recent;seeing gynecology soon;they will review 12vit d deficiency;correct [id number] 14per endocrinology monitor 15correction refer GTT; 2 hour glucose 36 16refer GGT 17seeing ortho;pre op 18asma,ama neg/cerulopalsmain wnl,AAT wnl 19Negative hep A antibody positive hep B surface antibody negative antigen negative hep C, normal ferritin 20ukltrasound Social History Social History Type Response Smoking Status Never smoker entered on: 02/20/13 Sex
--- OUTSIDE RECORDS SUMMARY | 2022-08-17 08:19 | XMS_ITS | Continuity of Care Document ---
Author Name Unknown Organization [facility] Address Unknown Care Team Providers Care Printing Supplies Sales Representative Name Role Phone Louisa LANDRUM, Taras Fuentes Primary Care Physician [place] [facility] [place](s): 11/06/20 - 03/06/21 [facility] Attending Physician: Shell Vargas MD Admitting Physician: Shell Vargas MD Allergies, Adverse Reactions, Alerts Substance Reaction [...] toxoids (Td) 08/03/05 Given 1Result Comment: [12/07/2017] [address]-50 2Result Comment: [12/21/2016] [facility]: 35276-404-29 3Result Comment: [06/10/2015] #3 4Admin Note: per [...] Maintenance, 02/03/21 8:34:00 EST, Tablet, [facility], Partial fill upon patient request if the prescript... Start Date: 02/03/21 Status: Ordered acarbose 50 mg oral tablet 1 tablet = 50 mg, By Mouth, 3 times a day, Take 1 tab (plus 1 25mg tab), 3 times daily with meals.,# 270 tablet, 3 Refills, Maintenance, 02/03/21 8:34:00 EST, Tablet, [facility], Partial fill upon patient request if the prescript... Start Date: 02/03/21 Status: Ordered Baqsimi One Pack 3 mg nasal powder See Instructions, 3 mg Once intrasnasally for severe hypoglycemia, # 2 each, 3 Refills, Soft Stop, 08/28/20 10:36:00 EDT, [facility], Partial fill upon patient request if [...] 5 Refills, Maintenance, 11/06/20 10:28:00 EDT, Tablet, [facility], Replaces loratidine, 158.02, cm, 11/06/20 10:04:00 EDT, Height,67, kg, 09/11/19 11:20:00 EDT, Dry Weight Start Date: 11/06/20 Status: Ordered cholestyramine 4 gm/5 gm oral powder for reconstitution 1 pack/packet, By Mouth, Daily, # 30 pack/packet, 5 Refills, Maintenance, 03/03/21 16:42:00 EST, REC Powder, [facility], Partial fill upon patient request if [...] opioid drug. Start Date: 11/13/20 Status: Ordered Ecotrin 325 mg oral delayed release tablet 1 tablet = 325 mg, By Mouth, Daily, begin first post op day 01/16, 0 Refills, Maintenance, :18:00 EST, Partial fill upon patient request if the prescription is for a schedule II opioid drug. Start Date: 01/15/21 Status: Ordered Ecotrin 325 mg oral delayed release tablet 1 tablet = 325 mg, By Mouth, Daily, Begin first post op day 01/16, 0 Refills, Maintenance, :21:00 EST, Partial fill upon patient request if the prescription is for a schedule II opioid drug. Start Date: 01/15/21 Status: Ordered famotidine 40 mg oral tablet [...] Soft Stop, 11/20/19 11:59:00 EDT, [facility], 160.02, cm, 11/15/19 10:05:00 EDT, Height, 67, kg, 09/11/19 11:20:00 EDT, Dry Weight Start Date: 11/20/19 Status: Ordered meclizine 25 mg oral tablet See Instructions, PRN for dizziness, Take 1 tablet every 8 hours as needed for dizziness, # 15 tablet, 0 Refills, Maintenance, 11/03/20 7:49:00 EDT, Tablet, [facility], Partial fill upon patient request if the prescription is for... Start Date: 11/03/20 Status: Ordered montelukast 10 mg oral tablet 10 mg, 1, tablet, By Mouth, Daily in PM, # 90 tablet, Refills 3, Tot. Refills 3, Maintenance, 08/15/19 16:21:00 EDT, Route to Pharmacy Electronically, [facility], 160, cm, 08/15/19 13:45:00 EDT, Height, [...] Maintenance, 12/10/20 12:36:00 EDT,DIS Tablet, [facility], has t... Start Date: 12/10/20 Stop Date: 07/08/21 Status: Ordered Bladen 0.65% nasal spray 2 sprays, Nares, Both, 4 times a day, # 1 each, 0 Refills, Maintenance, 10/30/20 11:34:00 EDT, [facility], Partial fill upon patient request if the prescription is for a scheduleII opioid drug., 2 sprays Nares, Both 4 times a day... Start Date: 10/30/20 Status: Ordered oxyCODONE 5 mg oral tablet See Instructions, 1 tablet By Mouth Every 4- 6 hours as needed for pain DO NOT drive while on this medication, Refills 0, Tot. Refills 0, Maintenance, 01/15/21 7:18:00 EST, Instructions Replace Required Details, Partial fill upon patient request if... Start Date: 01/15/21 Status: Ordered oxyCODONE 5 mg oral tablet See Instructions, 1 tablet By Mouth Every 4-6 hours as needed for pain DO NOT drive while taking this medication, Refills 0, Tot. Refills 0, Maintenance, 01/15/21 7:20:00 EST, Instructions Replace Required Details, Partial fill upon patient request... Start Date: 01/15/21 Status: Ordered ProAir HFA 90 mcg/inh inhalation aerosol with adapter 2, puffs, Inhalation, Every 4 hours, PRN, # 8.5 Gm, Refills 1, Tot. Refills 1, Maintenance, 01/06/21 8:26:00 EDT, Aerosol, Route to Pharmacy Electronically, [id number]_[id number], [facility], 158.02, cm, 01/06/21 8:03:00 EDT, Height, 6... Start Date: 01/06/21 Status: Ordered Reclast = 5 mg, IV Infusion, Once, 0 Refills, Maintenance, 11/06/20 10:24:00 EDT, administered at [facility] 10/2020 Start Date: 11/06/20 Status: [...] Gm, Refills 11, Route to Pharmacy Electronically, NCPDP_[id number], [facility], 158.02, cm, 11/13/20 8:38:00 EDT, Height, 67, kg, 09/11/19 11:20:00 EDT, Dry Weight Start Date: 11/20/20 Status: Ordered Tylenol Extra Strength 500 mg oral tablet 2 tablet = 1,000 mg, By Mouth, Every 8 hours, PRN Pain , Moderate, 0 Refills, Maintenance, :19:00 EST, Partial fill upon patient request if the prescription is for a schedule II opioid drug. Start Date: 01/15/21 Status: Ordered Tylenol Extra Strength 500 mg oral tablet 2 tablet = 1,000 mg, By Mouth, Every 8 hours, PRN Pain , Moderate, 0 Refills, Maintenance, 217:21:00 EST, Partial fill upon patient request if the prescription is for a schedule II opioid drug. Start Date: 01/15/21 Status: Ordered Vitamin B-12 1000 mcg/mL injectable solution See Instructions, 1,000 mcg Subcutaneous Every 7 days x 8 weeks then once a month there after per PCP, # 30 mL, 1 Refills, Maintenance, 01/06/21 13:36:00 EDT, [facility], Partialfill upon patient request if the [...] 1resolved after weight loss 2chronic perst 3gyn 69068 5testing negative insulinoma 6likley dumping sydrome 7abnormal GTT ;sugar 36 two hours into test 8sees gi 9normal CT brain 10new 115.3 cm,right per ct scan recent;seeing gynecology soon;they will review 12vit d deficiency;correct [id number] 14per endocrinology monitor 15correction refer GTT; 2 hour glucose 36 16refer GGT 17seeing ortho;pre op 18asma,ama neg/cerulopalsmain wnl,AAT wnl 19Negative hep A antibody positive hep B surface antibody negative antigen negative hep C, normal ferritin 20ukltrasound Social History Social History Type Response Smoking Status Never smoker entered on: 02/20/13 Sex
--- OUTSIDE RECORDS SUMMARY | 2022-08-17 08:19 | XMS_ITS | Continuity of Care Document ---
Author Name Unknown Organization [facility] Address [address] [place] [id number]- Care Team Providers Care Economic Adviser Name Role Phone Eran Sue JOHNSON Primary Care Physician [place] [facility] [place]22 [facility] [address] [place] [address] Allergies, Adverse Reactions, Alerts Substance Reaction Severity Status Dust Allergy to pollen Active Pollen seasonal allergies respiratory symptoms Active Incruse Ellipta 1 lightheaded and migraine Active 1dizzy Immunizations Given and Recorded Vaccine Date Status Refusal Reason [id number] 12y+ bivalent booster vax 1 12/24/21 Given [...] vaccine, inactivated 02/08/11 Give n SARS-CoV-2 mRNA ([id number]) vax 05/01/21 Recorded zoster vaccine, inactivated 11/03/20 [...] tetanus-diphtheria toxoids (Td) 08/03/05 Given 1Result Comment: [address]-9 2Result Comment: [id number] 3Result Comment: [12/07/2017] [id number] 4Result Comment: [12/21/2016] [facility]: [id number] 5Result Comment: [06/10/2015] #3 6Admin Note: per pt 7Admin Note: given in clinic Medications acetaminophen 500 mg oral tablet 2 tablet = 1,000 mg, By Mouth, Every 6 hours, PRN as needed for fever, # 200 tablet, 0 Refills, Maintenance, 12/03/21 10:17:00 EDT, Tablet, [facility], Partial fill upon patient request if the prescription is for a schedule II opi... Start Date: 12/03/21 Status: Ordered Albuterol (Eqv-ProAir HFA) 90 mcg/inh inhalation aerosol 2 puffs, Inhalation, Every 4 hours, PRN NEEDED FOR WHEEZING, # 8.5 Gm, 5 Refills, Maintenance, 03/09/22 11:21:00 EST, [facility], 17, INHALE TWO PUFFS BY [...] 6 Refills, Maintenance, 11/03/21 8:23:00 EDT, Tablet, [facility], 2 tablet By Mouth 2 times a day, 158, cm, 11/03/21 8:01:00 EDT,Height, 71.5, kg, 09/01/21 16:21:00 EDT, Dry Weight Start Date: 11/03/21 Status: Ordered Carafate 1 gm/10 ml oral suspension 10 mL = 1 Gm, By Mouth, 3 times a day before meals and bedtime, # 1,200 mL, 5 Refills, Maintenance,04/29/22 9:16:00 EST, [id number], Partial fill upon patient request if the prescription is for a schedule II opioid drug., 158, cm, 02... Start Date: 04/29/22 Status: Ordered cetirizine 10 mg oral tablet 1 tablet, By Mouth, Daily, # 30 tablet, 5 Refills, Maintenance, 06/03/22 11:40:00 EDT, [facility], 158, cm, 05/25/22 13:59:00 EDT, [...] Refills, Maintenance, 05/30/22 7:57:00 EDT, CR Capsule, [facility], Partial fill upon patient request if the prescription is for a schedule II opioid... Start Date: 05/30/22 Status: Ordered Emgality Prefilled Pen 120 mg/mL subcutaneous solution = 120 mg, Subcutaneous Injection, Once, Maintenance Dose, # 3 kit, 2 Refills, Soft Stop, 03/17/22 8:08:00 EST, [facility], requesting 3 month supply for cheaper martinez. with 2 refills, 163, albertina, 03/15/22 10:13:00 EST, Height, 68.1,... Start Date: 03/17/22 Status: Ordered EPINEPHrine 1 mg/mL injectable solution 0.3 mL = 0.3 mg, Intramuscular, Once, # 1 mL, 1 Refills, Soft Stop, 03/08/21 15:07:00 EST, Solution, [facility], Partial fill upon patient request if the prescription is for a schedule II opioid drug., 158, cm, 03/08/21 12:18:00 E... Start Date: 03/08/21 Status: Ordered famotidine 40 mg oral tablet 1 tablet = 40 mg, By Mouth, 2 times a day, # 60 tablet, 6 Refills, Maintenance, 01/31/22 14:05:00 EST, Suspension, [facility], Partial fill upon patient request if the prescription is for a schedule II opioid drug., 163, cm, 01/18... Start Date: 01/31/22 Stop Date: 08/29/22 Status: Ordered Fiber Choice 1.5 g oral tablet, chewable 1 tablet = 1.5 Gm, Chew, 3 times a day, # 90 tablet, 0 Refills, Maintenance, 04/09/22 15:16:00 EST,Chew Tablet, [id number], Partial fill upon patient request if the [...] Refills, Maintenance, 04/09/22 15:16:00 EST, REC Powder, [facility] #[id number], Partial fill upon patient request if the prescription is for a schedule II opioid drug., 17 Gm... Start Date: 04/09/22 Status: Ordered montelukast 10 mg oral tablet 1, tablet, By Mouth, Daily in PM, # 90 tablet, Refills 1, Tot. Refills 1, Maintenance, 11/14/21 11:28:00 EDT, Route to Pharmacy Electronically, [facility], 158, cm, 11/03/21 8:01:00 EDT, Height, 71.5, kg, 09/01/21 16:21:00 EDT, . Start Date: 11/14/21 Status: Ordered Nurtec ODT 75 mg oral tablet, disintegrating See Instructions, TAKE ONE TABLET DAILY NEEDED FOR migraines, DO NOT EXCEED ONE TABLET IN 24 HOURS, # 8 tablet, 6 Refills, Maintenance, 12/28/21 15:14:00 EDT, [facility], 163,cm, 12/24/21 8:20:00 EDT, [...] each, 0 Refills, Maintenance, 04/06/22 15:29:00 EST, [facility] #[id number], Partial fi... Start Date: 04/06/22 Status: Ordered Reclast = 5 mg, IV Infusion, Once, 0 Refills, Maintenance, 11/06/20 10:24:00 EDT, administered at [facility] 10/2020 Start Date: 11/06/20 Status: Ordered Stool Softener + Stimulant Laxative 50 mg-8.6 mg oral capsule 1 capsule, By Mouth, Daily in PM, # 60 capsule, 0 Refills, Maintenance, 04/09/22 15:17:00 EST, Capsule, [facility] #[id number], Partial fill upon patient request if the prescription is for a schedule II opioid drug., 1 capsule By Mouth Daily in P... Start Date: 04/09/22 Status: Ordered Symbicort 160mcg/4.5mcg Inhaler 2, puffs, Inhalation, 2 times a day, rinse mouth and throat after use, # 10.2 Gm, Refills 2, Tot. Refills 2, Maintenance, 06/10/22 20:48:00 EDT, Route to Pharmacy Electronically, NCPDP_[id number], [facility], 158, cm, 06/07/22 10:... Start [...] Active Vitamin D deficiency Confirmed Active 1gyn 66466 3testing negative insulinoma 4likley dumping sydrome 5abnormal GTT ;sugar 36 two hours into test 6normal CT brain 7new 8resolved after weight loss 9chronic perst 105.3 cm,right per ct scan recent;seeing gynecology soon;they will review 11vit d deficiency;correct 710079 13per endocrinology monitor 14correction refer GTT; 2 [...] Professional Member Role: PCP Address: Address: [address] [place], [place] [address] Name: Andria Guadalupe RN Position: [facility] [...] Persons Name: KHUSHI CUNNINGHAM Address: home [address] [place] [address] Name: BHUPINDER VENEGAS Address: [address] [place] [address] Name: FELIPE FLORES Address: home [address] [place] [address] Name: ARNAV FLORES Address: home [address] [place] [address] Name: IRINA FLORES Address: home [address] [place] [address] Name: RUSLAN FLORES Address: home [address] [place] [address] Name: KAISER PLUNKETT Address: home [address] [place] [address]
--- OUTSIDE RECORDS SUMMARY | 2022-08-17 08:19 | XMS_ITS | Continuity of Care Document ---
Author Name Unknown Organization [facility] Address [address] [place] [address]- Care Team Providers Care Police Sergeant Precinct Name Role Phone Louisa LANDRUM, Taras Fuentes Primary Care Physician [phone] Encounter [facility] [place] Date(s): 04/24/20 - 05/24/20 [facility] [address] [place] [id number] Allergies, Adverse Reactions, Alerts Substance Reaction Severity [...] toxoids (Td) 08/03/05 Given 1Result Comment: [12/07/2017] [id number] 2Result Comment: [12/21/2016] [facility]: [id number] 3Result Comment: [06/10/2015] #3 4Admin Note: per [...] 0 Refills, Maintenance, 07/03/19 13:59:00 EDT, Solution, [facility], 160, cm, 05/29/19 13:36:00 EDT, Height, [...] 60 capsule, 5 Refills, Maintenance, 05/07/20 15:54:00EST, [facility], 160.02, cm, 05/01/20 9:18:00 EST, Height, [...] 1 Refills, Soft Stop, 11/20/19 11:59:00 EDT, [facility], 160.02, cm, 11/15/19 10:05:00 EDT, Height, [...] 02/25/19 16:55:00 EST, Route to Pharmacy Electronically, [facility], 158, cm, 02/14/19 7:55:00 EST, Height, 61.9, kg, 02/12/19 10:17:00... Start Date: 02/25/19 Status: Ordered montelukast 10 mg oral tablet 10 mg, 1, tablet, By Mouth, Daily in PM, # 90 tablet, Refills 3, Tot. Refills 3, Maintenance, 08/15/19 16:21:00 EDT, Route to Pharmacy Electronically, [facility], 160, cm, 08/15/19 13:45:00 EDT, Height, 56.5, kg, 05/29/19 13:36:00... Start Date: 08/15/19 Status: Ordered ProAir HFA 90 mcg/inh inhalation aerosol with adapter 2, puffs, Inhalation, Every 4 hours, PRN, # 8.5 Gm, Refills 2, Tot. Refills 2, Maintenance, 04/29/19 11:32:00 EST, Aerosol, Route to Pharmacy Electronically, NCPDP_[id number], [facility], 160, cm, 04/29/19 10:47:00 EST, Height... Start Date: 04/29/19 Status: Ordered Topamax 50 mg oral tablet See Instructions, take 1 tab in am and 2 tab at bedtime. If AM dose causes bad sedation, add to HS dose., # 90 tablet, 6 Refills, Maintenance, 03/12/20 11:09:00 EST, Tablet, [facility], weaning zonegran off by 25mg every 2 days t... Start Date: 03/12/20 Status: Ordered ubrogepant 100 mg oral tablet 1 tablet = 100 mg, By Mouth, Daily, # 10 tablet, 6 Refills, Soft Stop, 03/12/20 11:04:00 EST, [facility], Partial fill upon patient request if [...] perst 3folowed by mental health;recent hospitalization 4gyn 34246 6testing negative insulinoma 7likley dumping sydrome 8abnormal GTT ;sugar 36 two hours into test 9sees gi 10normal CT brain 11new 125.3 cm,right per ct scan recent;seeing gynecology soon;they will review 13vit d deficiency;correct [id number] 15per endocrinology monitor 16correction refer GTT; 2 hour glucose 36 17refer GGT 18seeing ortho;pre op 19asma,ama neg/cerulopalsmain wnl,AAT wnl 20Negative hep A antibody positive hep B surface antibody negative antigen negative hep C, normal ferritin 21ukltrasound Social History Social History Type Response Smoking Status Never smoker entered on: 02/20/13 Sex
--- OUTSIDE RECORDS SUMMARY | 2022-08-17 08:19 | XMS_ITS | Continuity of Care Document ---
Author Name Unknown Organization [facility] Address [address] [place] [address]- Care Team Providers Care Casing Grader Name Role Phone Eran LINOLEUM FLOOR INSTALLER, Sue Dahl Primary Care Physician Encounter [facility] Date(s): 08/13/21 - 08/20/21 [facility] [address] [place] [address]- Attending Physician: Not on Staff, Attending MD Allergies, Adverse Reactions, Alerts Substance Reaction Severity Status Dust Allergy to pollen Active Pollen seasonal allergies respiratory symptoms Active Incruse Ellipta 1 lightheaded and migraine Active 1dizzy Immunizations Given and Recorded Vaccine Date Status Refusal Reason SARS-CoV-2 mRNA ([id number]) vax 05/01/21 Recorded influenza virus vaccine, inactivated [...] toxoids (Td) 08/03/05 Given 1Result Comment: [12/07/2017] [id number] 2Result Comment: [12/21/2016] [facility]: [id number] 3Result Comment: [06/10/2015] #3 4Admin Note: per pt 5Admin Note: given in clinic Medications acarbose 25 mg oral tablet 1 tablet = 25 mg, By Mouth, 3 times a day, Take 1 tab (plus 1 50mg tab), 3 times daily with meals.,# 270 tablet, 3 Refills, Maintenance, 02/03/21 8:34:00 EST, Tablet, [facility], Partial fill upon patient request if the prescript... Start Date: 02/03/21 Status: Ordered acarbose 50 mg oral tablet 1 tablet = 50 mg, By Mouth, 3 times a day, Take 1 tab (plus 1 25mg tab), 3 times daily with meals.,# 270 tablet, 3 Refills, Maintenance, 02/03/21 8:34:00 EST, Tablet, [facility], Partial fill upon patient request if [...] per PCP, # 30 mL, 1 Refills, 06/28/21 13:52:00 EDT, [facility], 158, cm, 05/24/21 16:05:00 EDT, Height, 80.6, kg, 03/08/21 12:18... Start Date: 06/28/21 Status: Ordered Dexilant 60 mg oral delayed release capsule 1 capsule = 60 mg, By Mouth, 2 times a day, 30 min before meal, # 60 capsule, 5 Refills, Maintenance, 04/16/21 14:29:00 EST, CR Capsule, [facility], Partial fill upon patient request if the prescription is for a schedule II opioi... Start Date: 04/16/21 Status: Ordered Emgality Prefilled Pen 120 mg/mL subcutaneous solution = 120 mg, Subcutaneous Injection, Once, Maintenance Dose, # 1 kit, 6 Refills, Soft Stop, 06/29/21 10:09:00 EDT, [facility], Partial fill upon patient request if the prescription is for a schedule II opioid drug., 158, cm, 06/29/21... Start Date: 06/29/21 Status: Ordered EPINEPHrine 1 mg/mL injectable solution 0.3 mL = 0.3 mg, Intramuscular, Once, # 1 mL, 1 Refills, Soft Stop, 03/08/21 15:07:00 EST, Solution, [facility], Partial fill upon patient request if [...] 05/24/21 11:12:00 EDT, Route to Pharmacy Electronically, [facility], 158, cm, 05/14/21 7:52:00 EST, Height, 80.6, kg, 03/08/21 12:18:00 EST, D... Start Date: 05/24/21 Status: Ordered meclizine 25 mg oral tablet See Instructions, PRN for dizziness, Take 1 tablet every 8 hours as needed for dizziness, # 15 tablet, 0 Refills, Maintenance, 11/03/20 7:49:00 EDT, Tablet, [facility], Partial fill upon patient request if the prescription is for... Start Date: 11/03/20 Status: Ordered montelukast 10 mg oral tablet 10 mg, 1, tablet, By Mouth, Daily in PM, # 90 tablet, Refills 1, Tot. Refills 1, Maintenance, 04/23/21 12:32:00 EST, Route to Pharmacy Electronically, [facility], 158, cm, 04/09/21 8:13:00 EST, Height, 80.6, kg, 03/08/21 12:18:00... Start Date: 04/23/21 Status: Ordered Nurtec ODT 75 mg oral tablet, disintegrating 1 tablet = 75 mg, By Mouth, Every 24 hours, PRN as needed for migraine headache, not to exceed 75 mg in 24 hours. no refill in nder 30 days, # 8 tablet, 6 Refills, Maintenance, 12/10/20 12:36:00 EDT,DIS Tablet, [facility], has t... Start Date: 12/10/20 Stop Date: 07/08/21 Status: Ordered Arbela 0.65% nasal spray 2 sprays, Nares, Both, 4 times a day, # 1 each, 3 Refills, Maintenance, 05/14/21 11:40:00 EST, [facility], Partial fill upon patient request if the prescription is for a scheduleII opioid drug., 2 sprays Nares, Both 4 times a day... Start Date: 05/14/21 Status: Ordered ProAir HFA 90 mcg/inh inhalation aerosol with adapter 2, puffs, Inhalation, Every 4 hours, PRN, # 8.5 Gm, Refills 1, Tot. Refills 1, Maintenance, 05/13/21 19:25:00 EST, Aerosol, Route to Pharmacy Electronically, NCPDP_[id number], [facility], 158, cm, 05/06/21 6:58:00 EST, Height, 80.... Start Date: 05/13/21 Status: Ordered Reclast = 5 mg, IV Infusion, Once, 0 Refills, Maintenance, 11/06/20 10:24:00 EDT, administered at [facility] 10/2020 Start Date: 11/06/20 [...] Gm, Refills 11, Route to Pharmacy Electronically, NCPDP_[id number], [facility], 158.02, cm, 11/13/20 8:38:00 EDT, Height, 67, kg, 09/11/19 11:20:00 EDT, Dry Weight Start Date: 11/20/20 Status: Ordered Trintellix 10 mg oral tablet 1 tablet = 10 mg, By Mouth, Daily, # 30 tablet, 0 Refills, Maintenance, 08/13/21 13:07:00 EDT, Tablet Start Date: 08/13/21 Status: Ordered Problem List Condition Effective Dates [...] 10 Active Orthostatic hypotension(Confirmed) Active Osteoporosis REclast Oct 1/ Endocrinology(Confirmed) 07/03/20 Active Ovarian cyst(Confirmed) 11 Active Leg paresthesia(Confirmed) 07/24/17 Active Personal history of gastric bypass ? 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 Impingement syndrome of shoulder(Confirmed) 17 Active Fatty liver(Confirmed) 18, 19, 20 10/09/16 Active Vitamin D deficiency(Confirmed) Active 1resolved after weight loss 2chronic perst 3gyn 44569 5testing negative insulinoma 6likley dumping sydrome 7abnormal GTT ;sugar 36 two hours into test 8sees gi 9normal CT brain 10new 115.3 cm,right per ct scan recent;seeing gynecology soon;they will review 12vit d deficiency;correct [id number] 14per endocrinology monitor 15correction refer GTT; 2 hour glucose 36 16refer GGT 17seeing ortho;pre op 18asma,ama neg/cerulopalsmain wnl,AAT wnl 19Negative hep A antibody positive hep B surface antibody negative antigen negative hep C, normal ferritin 20ukltrasound Vital Signs Most recent to oldest [Reference Range]: 1 Height 158 cm (08/13/21 12:45 PM) Weight 74.6 kg (08/13/21 12:45 PM) Oxygen Saturation [94-100 %] 97 % (08/13/21 12:45 PM) Pulse Rate [55-90 bpm] 87 bpm (08/13/21 12:45 PM) Body Mass Index [18.5-24.99] 29.88 *H* (08/13/21 12:45 PM) Blood Pressure [90-138/55-84 mm Hg] 102/ 60mm Hg (08/13/21 12:45 PM) Temperature [96.8-100.4 DegF] 97.8 DegF (08/13/21 12:45 PM) Blood pressure sites Arm, right (08/13/21 12:45 PM) Social History Social History Type Response Smoking Status Never smoker entered on: 02/20/13 Sex
--- OUTSIDE RECORDS SUMMARY | 2022-08-17 08:19 | XMS_ITS | Continuity of Care Document ---
Author Name Unknown Organization [facility] Nikita Oswaldo Address [address] [place] [address]- Care Team Providers Care Community Development Aide Name Role Phone Louisa LANDRUM, Taras Fuentes Primary Care Physician Encounter [facility] Date(s): 07/06/20 - 07/13/20 [facility] Adult [address] [place] [address]- Encounter Diagnosis Annual physical exam(Discharge Diagnosis) - 07/05/20 Osteoporosis(Discharge Diagnosis) - 07/05/20 Clostridium difficile diarrhea(Discharge Diagnosis) - 07/06/20 Bipolar disorder NOS(Discharge Diagnosis) - 07/06/20 Anxiety disorder(Discharge Diagnosis) - 07/06/20 Asthma(Discharge Diagnosis) - 07/06/20 Allergic rhinitis(Discharge Diagnosis) - 07/06/20 Esophageal reflux (GERD) egd 2017(Discharge Diagnosis) - 07/06/20 Fatty liver(Discharge Diagnosis) - 07/06/20 Hypoglycemia(Discharge Diagnosis) - 07/06/20 Spondylosis of lumbar spine MRI 2018 sx 2018(Discharge Diagnosis) - 07/06/20 Vitamin D deficiency(Discharge Diagnosis) - 07/06/20 B12 deficiency(Discharge Diagnosis) - 07/06/20 Obesity(Discharge Diagnosis) - 07/06/20 Attending Physician: Not on Staff, Attending MD [...] toxoids (Td) 08/03/05 Given 1Result Comment: [12/07/2017] [address]-34 2Result Comment: [12/21/2016] [facility]: 37840-211-66 3Result Comment: [06/10/2015] #3 4Admin Note: per pt 5Admin Note: given in clinic Medications acarbose 50 mg oral tablet 1 tablet = 50 mg, By Mouth, 3 times a day, Take 3 times daily with meals. E11.65, # 90 tablet, 5 Refills, Maintenance, 07/13/20 16:29:00 EDT, Tablet, [facility], Partial fill upon patient [...] 0 Refills, Maintenance, 07/03/19 13:59:00 EDT, Solution, [facility], 160, cm, 05/29/19 13:36:00 EDT, Height, 56.5, kg, 03... Start Date: 07/03/19 Status: Ordered amitriptyline 25 mg oral tablet 50 mg, 2, tablet, By Mouth, Daily at bedtime, Refills 0, Maintenance, 06/29/20 9:52:00 EDT Start Date: 06/29/20 Status: Ordered buPROPion 300 mg/24 hours (XL) oral tablet, extended release 1 tablet = 300 mg, By Mouth, Daily in AM, 0 Refills, Maintenance, 09/03/19 12:26:00 EDT Start Date: 09/03/19 Status: Ordered Dexilant 60 mg oral delayed release capsule 1 capsule = 60 mg, By Mouth, 2 times a day, # 60 capsule, 5 Refills, Maintenance, 05/07/20 15:54:00EST, [facility], 160.02, cm, 05/01/20 9:18:00 EST, [...] 1 Refills, Soft Stop, 11/20/19 11:59:00 EDT, [facility], 160.02, cm, 11/15/19 10:05:00 [...] 02/25/19 16:55:00 EST, Route to Pharmacy Electronically, [facility], 158, cm, 02/14/19 7:55:00 EST, Height, 61.9, kg, 02/12/19 10:17:00... Start Date: 02/25/19 Status: Ordered montelukast 10 mg oral tablet 10 mg, 1, tablet, By Mouth, Daily in PM, # 90 tablet, Refills 3, Tot. Refills 3, Maintenance, 08/15/19 16:21:00 EDT, Route to Pharmacy Electronically, [facility], 160, cm, 08/15/19 13:45:00 EDT, Height, 56.5, kg, 05/29/19 13:36:00... Start Date: 08/15/19 Status: Ordered ProAir HFA 90 mcg/inh inhalation aerosol with adapter 2, puffs, Inhalation, Every 4 hours, PRN, # 8.5 Gm, Refills 2, Tot. Refills 2, Maintenance, 04/29/19 11:32:00 EST, Aerosol, Route to Pharmacy Electronically, [id number]_[id number], [facility], 160, cm, 04/29/19 10:47:00 EST, Height... Start Date: 04/29/19 Status: Ordered Topamax 50 mg oral tablet See Instructions, take 1 tab in am and 2 tab at bedtime. If AM dose causes bad sedation, add to HS dose., # 90 tablet, 6 Refills, Maintenance, 03/12/20 11:09:00 EST, Tablet, [facility], weaning zonegran off by [...] 6 Refills, Soft Stop, 03/12/20 11:04:00 EST, [facility], Partial fill upon patient [...] 0 Refills, Maintenance, 06/13/20 14:10:00 EDT, Capsule, [facility],... Start Date: 06/13/20 Status: Ordered Problem [...] 1resolved after weight loss 2chronic perst 3gyn 29157 5testing negative insulinoma 6likley dumping sydrome 7abnormal GTT ;sugar 36 two hours into test 8sees gi 9normal CT brain 10new 115.3 cm,right per ct scan recent;seeing gynecology soon;they will review 12vit d deficiency;correct 345119 14per endocrinology monitor 15correction refer GTT; 2 hour glucose 36 16refer GGT 17seeing ortho;pre op 18asma,ama neg/cerulopalsmain wnl,AAT wnl 19Negative hep A antibody positive hep B surface antibody negative antigen negative hep C, normal ferritin 20ukltrasound Diagnosis Diagnosis Type Effective Dates Health Status Clinical Service Informant Annual physical exam Discharge Diagnosis 07/05/20 Osteoporosis Discharge Diagnosis 07/05/20 Clostridium difficile diarrhea Discharge Diagnosis 07/06/20 Bipolar disorder NOS Discharge Diagnosis 07/06/20 Asthma Discharge Diagnosis 07/06/20 Allergic rhinitis Discharge Diagnosis 07/06/20 Anxiety disorder Discharge Diagnosis 07/06/20 Esophageal reflux (GERD) egd 2017 Discharge Diagnosis 07/06/20 Fatty liver Discharge Diagnosis 07/06/20 Hypoglycemia Discharge Diagnosis 07/06/20 Spondylosis of lumbar spine MRI 2018 sx 2018 Discharge Diagnosis 07/06/20 Vitamin D deficiency Discharge Diagnosis 07/06/20 B12 deficiency Discharge Diagnosis 07/06/20 Obesity Discharge Diagnosis 07/06/20 Vital Signs Most recent to oldest [Reference Range]: 1 Height 158.02 cm (07/06/20 6:49 AM) Weight 82.9 kg (07/06/20 6:49 AM) Oxygen Saturation [94-100 %] 98 % (07/06/20 6:49 AM) Pulse Rate [55-90 bpm] 71 bpm (07/06/20 6:49 AM) Body Mass Index [18.5-24.99] 33.2 *>HHI* (07/06/20 6:49 AM) Blood Pressure [90-138/55-84 mm Hg] 114/ 62mm Hg (07/06/20 6:49 AM) Respiratory Rate [16-30 br/min] 14 br/mi n *L* (07/06/20 6:49 AM) Temperature [96.8-100.4 DegF] 98.5 DegF (07/06/20 6:49 AM) Mode of Delivery (Oxygen) Room air (07/06/20 6:49 AM) Blood pressure sites Arm, right (07/06/20 6:49 AM) Temperature Route Oral (07/06/20 6:49 AM) Weight Obtained Via Standing scale (07/06/20 6:49 AM) Social History Social History Type Response Smoking Status Never smoker entered on: 02/20/13 Sex
--- OUTSIDE RECORDS SUMMARY | 2022-08-17 08:19 | XMS_ITS | Continuity of Care Document ---
Author Name Unknown Organization [facility] Address [address] [place] [phone]- Care Team Providers Care Gun Profiler Name Role Phone Louisa LANDRUM, Taras Fuentes Primary Care Physician Encounter [facility] Date(s): 11/18/19 - 12/18/19 [facility] [address] [place] [address] [place] States Allergies, Adverse Reactions, Alerts Substance Reaction Severity [...] toxoids (Td) 08/03/05 Given 1Result Comment: [12/07/2017] [address]-71 2Result Comment: [12/21/2016] [facility]: 29233-504-15 3Result Comment: [06/10/2015] #3 4Admin Note: per [...] 0 Refills, Maintenance, 07/03/19 13:59:00 EDT, Solution, [facility], 160, cm, 05/29/19 13:36:00 EDT, Height, 56.5, kg, 03... Start Date: 07/03/19 Status: Ordered albuterol CFC free 90 mcg/inh inhalation aerosol 2, puffs, Inhalation, 4 times a day, PRN, # 25 Gm, Refills 0, Tot. Refills 0, Maintenance, 07/07/2012:36:00 EDT, Aerosol, Route to Pharmacy Electronically, NCPDP_[id number], [facility], 160, cm, 07/08/19 13:03:00 EDT, Height, 56.... Start Date: 07/08/19 Status: Ordered buPROPion 300 mg/24 hours (XL) oral tablet, extended release 1 tablet = 300 mg, By Mouth, Daily in AM, 0 Refills, Maintenance, 09/03/19 12:26:00 EDT Start Date: 09/03/19 Status: Ordered colesevelam 625 mg oral tablet 3 tablet = 1,875 mg, By Mouth, 2 times a day, # 84 tablet, 0 Refills, Maintenance, 11/27/19 15:04:00 EDT, Tablet Start Date: 11/27/19 Stop Date: 12/11/19 Status: Ordered Dexilant 60 mg oral delayed release capsule 1 capsule = 60 mg, By Mouth, 2 times a day, # 60 capsule, 5 Refills, Maintenance, 07/30/19 10:21:00EDT, [facility], 160, cm, 07/08/19 13:03:00 EDT, Height, 56.5, kg, 05/29/19 13:36:00 EDT, Dry Weight Start Date: 07/30/19 Status: Ordered eletriptan 40 mg oral tablet 1 tablet = 40 mg, By Mouth, Daily, PRN for migraine headache, # 9 tablet, 5 Refills, Soft Stop, 07/16/19 9:23:00 EDT, Tablet, [facility], she has tried sumatriptan and rizatriptan. if insurance still declines let me know which I c... Start Date: 07/16/19 Stop Date: 01/12/20 Status: Ordered Freestyle Lite Lancets See Instructions, [...] Weight Start Date: 07/11/19 Status: Ordered Gabapentin By Mouth, 0 Refills, Maintenance, 10/21/19 6:53:00 EDT Start Date: 10/21/19 Status: Ordered Glucagon Emergency Kit for Low Blood Sugar 1 mg injection See Instructions, INJECT DIRECTED FOR SEVERE low blood sugar,, # 1 each, 1 Refills, Soft Stop, 11/20/19 11:59:00 EDT, [facility], 160.02, cm, 11/15/19 10:05:00 [...] 02/25/19 16:55:00 EST, Route to Pharmacy Electronically, [facility], 158, cm, 02/14/19 7:55:00 EST, Height, 61.9, kg, 02/12/19 10:17:00... Start Date: 02/25/19 Status: Ordered montelukast 10 mg oral tablet 10 mg, 1, tablet, By Mouth, Daily in PM, # 90 tablet, Refills 3, Tot. Refills 3, Maintenance, 08/15/19 16:21:00 EDT, Route to Pharmacy Electronically, [facility], 160, cm, 08/15/19 13:45:00 EDT, Height, 56.5, kg, 05/29/19 13:36:00... Start Date: 08/15/19 Status: Ordered NuLYTELY with Flavor Packs oral powder for reconstitution 240 mL, By Mouth, Every 10 minutes, # 4,000 mL, 0 Refills, Maintenance, 11/15/19 10:29:00 EDT, REC Powder, [facility], 240 mL By Mouth Every 10 minutes, 160.02, cm, 11/15/19 10:05:00 EDT, Height, 67, kg, 09/11/19 11:20:00 EDT, Dry... Start Date: 11/15/19 Status: Ordered ondansetron 4 mg oral tablet, disintegrating 1 tablet = 4 mg, By Mouth, Every 8 hours, PRN as needed for nausea/vomiting, # 9 tablet, 0 Refills,Maintenance, 10/06/19 21:07:00 EDT, DIS Tablet, [facility] Start Date: 10/06/19 Stop Date: 10/09/19 Status: Ordered ProAir HFA 90 mcg/inh inhalation aerosol with adapter 2, puffs, Inhalation, Every 4 hours, PRN, # 8.5 Gm, Refills 2, Tot. Refills 2, Maintenance, 04/29/19 11:32:00 EST, Aerosol, Route to Pharmacy Electronically, NCPDP_[id number], [facility], 160, cm, [...] 07/08/19 13:36:00 EDT, Route to Pharmacy Electronically, NCPDP_[id number], [facility], 160, cm, 07/08/19 13:03:00 ED... Start Date: 07/08/19 Status: Ordered Topamax 50 mg oral tablet 2 tablet = 100 mg, By Mouth, Daily at bedtime, # 60 tablet, 6 Refills, Maintenance, 11/04/19 11:08:00 EDT, Tablet, [facility], weaning zonegran off by 25mg every 2 days then can start topamax., 160.02, cm, 10/29/19 12:35:00 EDT, H... Start Date: 11/04/19 Stop Date: 06/01/20 Status: Ordered Ubrelvy 50 mg oral tablet 1 tablet = 50 mg, By Mouth, Once, PRN as needed for migraine headache, may repeat dose in 2 hours if needed, # 10 tablet, 1 Refills, Soft Stop, 11/25/19 21:26:00 EDT, Tablet, [facility], 160.02, cm, 11/15/19 10:05:00 EDT, Height,... Start Date: 11/25/19 Status: Ordered Zofran 4 mg oral tablet 1 tablet = 4 mg, By Mouth, Every 8 hours, PRN Nausea & Vomiting, # 30 tablet, 0 Refills, Maintenance, 09/30/19 11:23:00 EDT, [facility], 160.02, cm, 09/24/19 15:31:00 [...] perst 3folowed by mental health;recent hospitalization 4gyn 32459 6testing negative insulinoma 7likley dumping sydrome 8abnormal GTT ;sugar 36 two hours into test 9sees gi 10normal CT brain 11new 125.3 cm,right per ct scan recent;seeing gynecology soon;they will review 13vit d deficiency;correct 489259 15per endocrinology monitor 16correction refer GTT; 2 hour glucose 36 17refer GGT 18seeing ortho;pre op 19asma,ama neg/cerulopalsmain wnl,AAT wnl 20Negative hep A antibody positive hep B surface antibody negative antigen negative hep C, normal ferritin 21ukltrasound Social History Social History Type Response Smoking Status Never smoker entered on: 02/20/13 Sex
--- OUTSIDE RECORDS SUMMARY | 2022-08-17 08:19 | XMS_ITS | Continuity of Care Document ---
Author Name Unknown Organization [facility] Address [address] [place] [address]- Care Team Providers Care Water Fabricator Operator Name Role Phone Louisa LANDRUM, Taras Fuentes Primary Care Physician [phone] Encounter [facility] Date(s): 01/07/21 - 02/06/[address] [address] Attending Physician: Konrad Curtis Admitting [...] toxoids (Td) 08/03/05 Given 1Result Comment: [12/07/2017] [id number] 2Result Comment: [12/21/2016] [facility]: 14306-113-01 3Result Comment: [06/10/2015] #3 4Admin Note: per [...] 3 Refills, Maintenance, 02/03/21 8:34:00 EST, Tablet, [facility], Partial fill upon patient request if the prescript... Start Date: 02/03/21 Status: Ordered acarbose 50 mg oral tablet 1 tablet = 50 mg, By Mouth, 3 times a day, Take 1 tab (plus 1 25mg tab), 3 times daily with meals.,# 270 tablet, 3 Refills, Maintenance, 02/03/21 8:34:00 EST, Tablet, [facility], Partial fill upon patient request if the prescript... Start Date: 02/03/21 Status: Ordered Baqsimi One Pack 3 mg nasal powder See Instructions, 3 mg Once intrasnasally for severe hypoglycemia, # 2 each, 3 Refills, Soft Stop, 08/28/20 10:36:00 EDT, [facility], Partial fill upon patient request [...] 5 Refills, Maintenance, 11/06/20 10:28:00 EDT, Tablet, [facility], Replaces loratidine, 158.02, cm, 11/06/20 10:04:00 EDT, Height,67, kg, 09/11/19 11:20:00 EDT, Dry Weight Start Date: 11/06/20 Status: Ordered clonazePAM 1 mg oral tablet [...] 1 Refills, Soft Stop, 11/20/19 11:59:00 EDT, [facility], 160.02, cm, 11/15/19 10:05:00 EDT, Height, 67, kg, 09/11/19 11:20:00 EDT, Dry Weight Start Date: 11/20/19 Status: Ordered meclizine 25 mg oral tablet See Instructions, PRN for dizziness, Take 1 tablet every 8 hours as needed for dizziness, # 15 tablet, 0 Refills, Maintenance, 11/03/20 7:49:00 EDT, Tablet, [facility], Partial fill upon patient request if the prescription is for... Start Date: 11/03/20 Status: Ordered montelukast 10 mg oral tablet 10 mg, 1, tablet, By Mouth, Daily in PM, # 90 tablet, Refills 3, Tot. Refills 3, Maintenance, 08/15/19 16:21:00 EDT, Route to Pharmacy Electronically, [facility], 160, cm, 08/15/19 13:45:00 EDT, [...] 6 Refills, Maintenance, 12/10/20 12:36:00 EDT,DIS Tablet, [facility], has t... Start Date: 12/10/20 Stop Date: 07/08/21 Status: Ordered Grimes 0.65% nasal spray 2 sprays, Nares, Both, 4 times a day, # 1 each, 0 Refills, Maintenance, 10/30/20 11:34:00 EDT, [facility], Partial fill upon patient request [...] 8:26:00 EDT, Aerosol, Route to Pharmacy Electronically, NCPDP_[id number], [facility], 158.02, cm, 01/06/21 8:03:00 EDT, Height, 6... Start Date: 01/06/21 Status: Ordered Reclast = 5 mg, IV Infusion, Once, 0 Refills, Maintenance, 11/06/20 10:24:00 EDT, administered at [facility] 10/2020 Start Date: 11/06/20 Status: [...] Gm, Refills 11, Route to Pharmacy Electronically, NCPDP_[id number], [facility], 158.02, cm, 11/13/20 8:38:00 EDT, [...] mL, 1 Refills, Maintenance, 01/06/21 13:36:00 EDT, [facility], Partialfill upon patient request if the [...] 1resolved after weight loss 2chronic perst 3gyn 23735 5testing negative insulinoma 6likley dumping sydrome 7abnormal GTT ;sugar 36 two hours into test 8sees gi 9normal CT brain 10new 115.3 cm,right per ct scan recent;seeing gynecology soon;they will review 12vit d deficiency;correct [id number] 14per endocrinology monitor 15correction refer GTT; 2 hour glucose 36 16refer GGT 17seeing ortho;pre op 18asma,ama neg/cerulopalsmain wnl,AAT wnl 19Negative hep A antibody positive hep B surface antibody negative antigen negative hep C, normal ferritin 20ukltrasound Social History Social History Type Response Smoking Status Never smoker entered on: 02/20/13 Sex
--- OUTSIDE RECORDS SUMMARY | 2022-08-17 08:20 | XMS_ITS | Continuity of Care Document ---
Author Name Unknown Organization [facility] Address [address] [place] [address]- Care Team Providers Care Tank Furnace Operator Name Role Phone Eran Sue JOHNSON Primary Care Physician [phone] Encounter [facility] [place] Date(s): 12/07/21 - 01/06/22 [facility] [address] [place] [address] [place] Allergies, Adverse Reactions, Alerts Substance Reaction Severity Status Dust Allergy to pollen Active Pollen seasonal allergies respiratory symptoms Active Incruse Ellipta 1 lightheaded and migraine Active 1dizzy Immunizations Given and Recorded Vaccine Date Status Refusal Reason [id number] 12y+ bivalent booster vax 1 12/24/21 Given [...] vaccine, inactivated 02/08/11 Give n SARS-CoV-2 mRNA ([id number]) vax 05/01/21 Recorded zoster vaccine, inactivated 11/03/20 [...] tetanus-diphtheria toxoids (Td) 08/03/05 Given 1Result Comment: [address]-4 2Result Comment: [id number] 3Result Comment: [12/07/2017] [id number] 4Result Comment: [12/21/2016] [facility]: [id number] 5Result Comment: [06/10/2015] #3 6Admin Note: per pt 7Admin Note: given in clinic Medications acarbose 25 mg oral tablet See Instructions, 1 tablet with 50 mg (total 75 mg) By Mouth before lunch, # 30 each, 11 Refills, Maintenance, 11/03/21 8:24:00 EDT, Tablet, [facility], 158, cm, 11/03/21 8:01:00EDT, Height, 71.5, kg, 09/01/21 16:21:00 EDT, Dry W... Start Date: 11/03/21 Status: Ordered acarbose 50 mg oral tablet See Instructions, 1 tablet with 25 mg (total 75 mg) By Mouth before lunch, # 30 each, 11 Refills, Maintenance, 11/03/21 8:23:00 EDT, Tablet, [facility], Partial fill upon patientrequest if the prescription is for a schedule II op... Start Date: 11/03/21 Status: Ordered acetaminophen 500 mg oral tablet 2 tablet = 1,000 mg, By Mouth, Every 6 hours, PRN as needed for fever, # 200 tablet, 0 Refills, Maintenance, 12/03/21 10:17:00 EDT, Tablet, [facility], Partial fill upon patient request if the prescription is for a schedule II opi... Start Date: 12/03/21 Status: Ordered Albuterol (Eqv-ProAir HFA) 90 mcg/inh inhalation aerosol 2 puffs, Inhalation, Every 4 hours, PRN NEEDED FOR WHEEZING, # 8.5 Gm, 1 Refills, Maintenance, 12/03/21 14:16:00 EDT, [facility], 18, INHALE TWO PUFFS EVERY 4 HOURS NEEDED FOR WHEEZING, 163, cm, 12/03/21 9:39:00 EDT, Height,... Start Date: 12/03/21 Status: Ordered calcium (as citrate)-vitamin D 315 mg-250 intl units oral tablet 2 tablet, By Mouth, 2 times a day, # 120 tablet, 6 Refills, Maintenance, 11/03/21 8:23:00 EDT, Tablet, [facility], 2 tablet By Mouth [...] Refills, Maintenance, 11/22/21 9:49:00 EDT, CR Capsule, [facility], Partial fill upon patient request if the prescription is for a schedule II opioid... Start Date: 11/22/21 Status: Ordered Emgality Prefilled Pen 120 mg/mL subcutaneous solution = 120 mg, Subcutaneous Injection, Once, Maintenance Dose, # 1 kit, 6 Refills, Soft Stop, 12/30/21 12:19:00 EDT, [facility], Partial fill upon patient request if the prescription is for a schedule II opioid drug., 163, cm, 12/24/21... Start Date: 12/30/21 Status: Ordered EPINEPHrine 1 mg/mL injectable solution 0.3 mL = 0.3 mg, Intramuscular, Once, # 1 mL, 1 Refills, Soft Stop, 03/08/21 15:07:00 EST, Solution, [facility], Partial fill upon patient [...] 11/15/21 10:56:00 EDT, Route to Pharmacy Electronically, [facility], 158, cm, 11/03/21 8:01:00 EDT, Height, 71.5, kg, 09/01/21 16:21:00 EDT, Mark Start Date: 11/15/21 Status: Ordered montelukast 10 mg oral tablet 1, tablet, By Mouth, Daily in PM, # 90 tablet, Refills 1, Tot. Refills 1, Maintenance, 11/14/21 11:28:00 EDT, Route to Pharmacy Electronically, [facility], 158, cm, 11/03/21 8:01:00 EDT, Height, 71.5, kg, 09/01/21 16:21:00 EDT, Start Date: 11/14/21 Status: Ordered Nurtec ODT 75 mg oral tablet, disintegrating See Instructions, TAKE ONE TABLET DAILY NEEDED FOR migraines, DO NOT EXCEED ONE TABLET IN 24 HOURS, # 8 tablet, 6 Refills, Maintenance, 12/28/21 15:14:00 EDT, [facility], 163,cm, 12/24/21 8:20:00 EDT, Height, 67, kg, 11/26/21... Start Date: 12/28/21 Status: Ordered Reclast = 5 mg, IV Infusion, Once, 0 Refills, Maintenance, 11/06/20 10:24:00 EDT, administered at [facility] 10/2020 Start Date: 11/06/20 Status: [...] 11/23/21 19:57:00 EDT, Route to Pharmacy Electronically, NCPDP_[id number], [facility], 158, cm, 11/03/21 8:0... [...] 5 Refills, Maintenance, 12/10/21 9:44:00 EDT, Tablet, [facility], Partial fill upon patient [...] Active Vitamin D deficiency Confirmed Active 1gyn 77835 3testing negative insulinoma 4likley dumping sydrome 5abnormal GTT ;sugar 36 two hours into test 6sees gi 7normal CT brain 8new 9resolved after weight loss 10chronic perst 115.3 cm,right per ct scan recent;seeing gynecology soon;they will review 12vit d deficiency;correct [id number] 14per endocrinology monitor 15correction refer GTT; 2 hour glucose 36 16refer GGT 17seeing ortho;pre op 18asma,ama neg/cerulopalsmain wnl,AAT wnl 19Negative hep A antibody positive hep B surface antibody negative antigen negative hep C, normal ferritin 20ukltrasound Social History Social History Type Response Smoking Status Never smoker entered on: 02/20/13 Sex Patient Care team information Personnel Name: Sue Barillas NP Address: Address: [address] [place] [id number]
--- OUTSIDE RECORDS SUMMARY | 2022-08-17 08:20 | XMS_ITS | Continuity of Care Document ---
Author Name Unknown Organization [facility] Address [address] [place] [id number]- Care Team Providers Care Forestry Biology Specialist Name Role Phone Louisa LANDRUM, Taras Fuentes Primary Care Physician [phone] Encounter [facility] Date(s): 03/03/21 - 04/02/21 [facility] [address] [place] [id number]- [place] Allergies, Adverse Reactions, Alerts Substance Reaction [...] toxoids (Td) 08/03/05 Given 1Result Comment: [12/07/2017] [address]-45 2Result Comment: [12/21/2016] [facility]: [id number] 3Result Comment: [06/10/2015] #3 4Admin Note: per [...] Maintenance, 02/03/21 8:34:00 EST, Tablet, [facility], Partial fill upon patient request if the prescript... Start Date: 02/03/21 Status: Ordered acarbose 50 mg oral tablet 1 tablet = 50 mg, By Mouth, 3 times a day, Take 1 tab (plus 1 25mg tab), 3 times daily with meals.,# 270 tablet, 3 Refills, Maintenance, 02/03/21 8:34:00 EST, Tablet, [facility], Partial fill upon patient request if the prescript... Start Date: 02/03/21 Status: Ordered Baqsimi One Pack 3 mg nasal powder See Instructions, 3 mg Once intrasnasally for severe hypoglycemia, # 2 each, 3 Refills, Soft Stop, 08/28/20 10:36:00 EDT, [facility], Partial fill upon [...] Maintenance, 11/06/20 10:28:00 EDT, Tablet, [facility], Replaces loratidine, 158.02, cm, 11/06/20 10:04:00 EDT, Height,67, kg, 09/11/19 11:20:00 EDT, Dry Weight Start Date: 11/06/20 Status: Ordered cholestyramine 4 gm/5 gm oral powder for reconstitution 1 pack/packet, By Mouth, Daily, # 30 pack/packet, 5 Refills, Maintenance, 03/03/21 16:42:00 EST, REC Powder, [facility], Partial fill upon [...] opioid drug. Start Date: 01/15/21 Status: Ordered Emgality Prefilled Pen 120 mg/mL subcutaneous solution = 240 mg, Subcutaneous Injection, Once, Loading Dose, # 2 kit, 0 Refills, Soft Stop, 03/16/21 16:05:00 EST, [facility], Partial fill upon patient request if the prescription is for a schedule II opioid drug., 158, cm, 03/11/21 9:1... Start Date: 03/16/21 Status: Ordered Emgality Prefilled Pen 120 mg/mL subcutaneous solution = 120 mg, Subcutaneous Injection, Once, Maintenance Dose, # 1 kit, 5 Refills, Soft Stop, 03/16/21 16:05:00 EST, [facility], Partial fill upon [...] for a schedule II opioid drug., 158, albertina, 03/08/21 12:18:00 E... Start Date: 03/08/21 Status: [...] Soft Stop, 11/20/19 11:59:00 EDT, [facility], 160.02, cm, 11/15/19 10:05:00 EDT, Height, 67, kg, 09/11/19 11:20:00 EDT, Dry Weight Start Date: 11/20/19 Status: Ordered meclizine 25 mg oral tablet See Instructions, PRN for dizziness, Take 1 tablet every 8 hours as needed for dizziness, # 15 tablet, 0 Refills, Maintenance, 11/03/20 7:49:00 EDT, Tablet, [facility], Partial fill upon patient request if the prescription is for... Start Date: 11/03/20 Status: Ordered montelukast 10 mg oral tablet 10 mg, 1, tablet, By Mouth, Daily in PM, # 90 tablet, Refills 3, Tot. Refills 3, Maintenance, 08/15/19 16:21:00 EDT, Route to Pharmacy Electronically, [facility], 160, cm, 08/15/19 13:45:00 EDT, Height, [...] Maintenance, 12/10/20 12:36:00 EDT,DIS Tablet, [facility], has t... Start Date: 12/10/20 Stop Date: 07/08/21 Status: Ordered [place] 0.65% nasal spray 2 sprays, Nares, Both, 4 times a day, # 1 each, 0 Refills, Maintenance, 10/30/20 11:34:00 EDT, [facility], Partial fill upon patient request if the prescription is for a scheduleII opioid drug., 2 sprays Nares, Both 4 times a day... Start Date: 10/30/20 Status: Ordered ProAir HFA 90 mcg/inh inhalation aerosol with adapter 2, puffs, Inhalation, Every 4 hours, PRN, # 8.5 Gm, Refills 1, Tot. Refills 1, Maintenance, 01/06/21 8:26:00 EDT, Aerosol, Route to Pharmacy Electronically, NCPDP_[id number], [facility], 158.02, cm, 01/06/21 8:03:00 EDT, Height, 6... Start Date: 01/06/21 Status: Ordered Reclast = 5 mg, IV Infusion, Once, 0 Refills, Maintenance, 11/06/20 10:24:00 EDT, administered at [facility] 10/2020 Start Date: 11/06/20 Status: [...] Gm, Refills 11, Route to Pharmacy Electronically, [id number]_[id number], [facility], 158.02, cm, 11/13/20 8:38:00 EDT, Height, [...] Refills, Maintenance, 01/06/21 13:36:00 EDT, [facility], Partialfill upon patient request if the [...] 1resolved after weight loss 2chronic perst 3gyn 96024 5testing negative insulinoma 6likley dumping sydrome 7abnormal GTT ;sugar 36 two hours into test 8sees gi 9normal CT brain 10new 115.3 cm,right per ct scan recent;seeing gynecology soon;they will review 12vit d deficiency;correct 699638 14per endocrinology monitor 15correction refer GTT; 2 hour glucose 36 16refer GGT 17seeing ortho;pre op 18asma,ama neg/cerulopalsmain wnl,AAT wnl 19Negative hep A antibody positive hep B surface antibody negative antigen negative hep C, normal ferritin 20ukltrasound Social History Social History Type Response Smoking Status Never smoker entered on: 02/20/13 Sex
--- OUTSIDE RECORDS SUMMARY | 2022-08-17 08:20 | XMS_ITS | Continuity of Care Document ---
Author Name Unknown Organization [facility] Address [address] [place] [address]- Care Team Providers Care Final Canoe Inspector Name Role Phone Louisa LANDRUM, Taras Fuentes Primary Care Physician Encounter [facility] Date(s): 10/30/20 - 11/29/20 [facility] [address] [place] [address]- Attending Physician: Konrad Curtis Admitting Physician: Konrad [...] toxoids (Td) 08/03/05 Given 1Result Comment: [12/07/2017] [id number] 2Result Comment: [12/21/2016] [facility]: [id number] 3Result Comment: [06/10/2015] #3 4Admin Note: per pt 5Admin Note: given in clinic Medications acarbose 50 mg oral tablet 1 tablet = 50 mg, By Mouth, 3 times a day, Take 3 times daily with meals. E11.65, # 90 tablet, 5 Refills, Maintenance, 07/13/20 16:29:00 EDT, Tablet, [facility], Partial fill [...] 3 Refills, Soft Stop, 08/28/20 10:36:00 EDT, [facility], Partial fill [...] 5 Refills, Maintenance, 11/06/20 10:28:00 EDT, Tablet, [facility], Replaces loratidine, 158.02, cm, 11/06/20 [...] 0 Refills, Maintenance, 11/03/20 7:49:00 EDT, Tablet, [facility], Partial fill [...] days, # 8 tablet, 6 Refills, Maintenance, 11/12/20 10:44:00 EDT,DIS Tablet, [facility], has t... Start Date: 11/12/20 Status: Ordered [place] 0.65% nasal spray 2 sprays, Nares, Both, 4 times a day, # 1 each, 0 Refills, Maintenance, 10/30/20 11:34:00 EDT, [facility], Partial fill upon patient request if the prescription is for a scheduleII opioid drug., 2 sprays Nares, Both 4 times a day... Start Date: 10/30/20 Status: Ordered pregabalin 75 mg oral capsule 1 capsule = 75 mg, By Mouth, Daily, # 30 capsule, 0 Refills, Maintenance, 08/27/20 9:45:00 EDT, Capsule, [facility], Partial fill [...] 11:32:00 EST, Aerosol, Route to Pharmacy Electronically, NCPDP_[id number], [facility], 160, cm, 04/29/19 10:47:00 EST, Height... Start Date: 04/29/19 Status: Ordered Reclast = 5 mg, IV Infusion, Once, 0 Refills, Maintenance, 11/06/20 10:24:00 EDT, administered at [facility] 10/2020 Start Date: 11/06/20 Status: Ordered scopolamine 1 mg/72 hr transdermal film, extended release 0 Refills, Maintenance, 11/13/20 9:09:00 EDT, Partial fill upon patient request if the prescriptionis for a schedule II opioid drug. Start Date: 11/13/20 Status: Ordered Symbicort 160mcg/4.5mcg Inhaler 2, puffs, Inhalation, 2 times a day, with spacer., # 10.2 Gm, Refills 11, Route to Pharmacy Electronically, NCPDP_[id number], [facility], 158.02, cm, 11/13/20 8:38:00 EDT, Height, 67, kg, 09/11/19 11:20:00 EDT, Dry Weight Start Date: 11/20/20 Status: Ordered Trazodone By Mouth, 2 times a day, 0 Refills, Maintenance, 06/29/20 9:52:00 EDT, Partial fill upon patient request if the prescription is for a schedule II opioid drug. Start Date: 06/29/20 Status: Ordered zonisamide 50 mg oral capsule 1 capsule = 50 mg, By Mouth, Daily at bedtime, aftr stopping topamax as we discussed begin this medication, # 30 capsule, 5 Refills, Maintenance, 11/12/20 10:43:00 EDT, [facility], Partial fill upon patient request if the prescrip... Start Date: 11/12/20 Stop Date: 05/11/21 Status: Ordered Problem List Condition Effective Dates [...] 8 Active Spondylosis of lumbar spine MRI 2018 sx 2018(Confirmed) Active Adnexal mass(Confirmed) Active Headache, classical migraine(Confirmed) Active Migraines(Confirmed) 9, 10 Active Obesity(Confirmed) Active Osteoporosis endocrinology(Confirmed) 07/03/20 Active Ovarian cyst(Confirmed) 11 Active Leg paresthesia(Confirmed) 07/24/17 Active Personal history of gastric bypass ? 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 Impingement syndrome of shoulder(Confirmed) 17 Active Fatty liver(Confirmed) 18, 19, 20 10/09/16 Active Vitamin D deficiency(Confirmed) Active 1resolved after weight loss 2chronic perst 3gyn 10518 5testing negative insulinoma 6likley dumping sydrome 7abnormal GTT ;sugar 36 two hours into test 8sees gi 9normal CT brain 10new 115.3 cm,right per ct scan recent;seeing gynecology soon;they will review 12vit d deficiency;correct 975495 14per endocrinology monitor 15correction refer GTT; 2 hour glucose 36 16refer GGT 17seeing ortho;pre op 18asma,ama neg/cerulopalsmain wnl,AAT wnl 19Negative hep A antibody positive hep B surface antibody negative antigen negative hep C, normal ferritin 20ukltrasound Social History Social History Type Response Smoking Status Never smoker entered on: 02/20/13 Sex
--- OUTSIDE RECORDS SUMMARY | 2022-08-17 08:20 | XMS_ITS | Continuity of Care Document ---
Author Name Unknown Organization [facility] Address [address] [place] [address]- Care Team Providers Care Machine Applicator Cementer Name Role Phone Eran KST OPERATOR, Sue Dahl Primary Care Physician Encounter [facility] Date(s): 03/10/20 - 03/17/20 [facility] [address] [place] [address]- Encounter Diagnosis Coccydynia(Discharge Diagnosis) - 03/10/20 Right wrist pain(Discharge Diagnosis) - 03/10/20 Attending Physician: Not on Staff, Attending MD [...] toxoids (Td) 08/03/05 Given 1Result Comment: [12/07/2017] [id number] 2Result Comment: [12/21/2016] [facility]: [id number] 3Result Comment: [06/10/2015] #3 4Admin Note: per [...] 0 Refills, Maintenance, 07/03/19 13:59:00 EDT, Solution, [facility], 160, cm, 05/29/19 13:36:00 EDT, Height, 56.5, kg, 03... Start Date: 07/03/19 Status: Ordered amitriptyline 25 mg oral tablet 25 mg, 1, tablet, By Mouth, Daily at bedtime, # 30 tablet, Refills 5, Tot. Refills 5, Maintenance, 12/30/19 11:47:00 EDT, Route to Pharmacy Electronically, [facility], 160.02, cm, 12/02/19 6:45:00 EDT, Height, 67, kg, 09/11/19 11:... Start Date: 12/30/19 Status: Ordered buPROPion 300 mg/24 hours (XL) oral tablet, extended release 1 tablet = 300 mg, By Mouth, Daily in AM, 0 Refills, Maintenance, 09/03/19 12:26:00 EDT Start Date: 09/03/19 Status: Ordered Dexilant 60 mg oral delayed release capsule 1 capsule = 60 mg, By Mouth, 2 times a day, # 60 capsule, 5 Refills, Maintenance, 12/26/19 12:06:00EDT, [facility], 160.02, cm, 12/02/19 6:45:00 EDT, Height, 67, kg, 09/11/19 11:20:00 EDT, Dry Weight Start Date: 12/26/19 Status: Ordered doxepin 50 mg oral capsule 1 capsule = 50 mg, By Mouth, Daily at bedtime, 0 Refills, Maintenance, 03/02/20 13:14:00 EST, Capsule, Partial fill upon patient request if the prescription is for a schedule II opioid drug. Start Date: 03/02/20 Status: Ordered Freestyle Lite Lancets See Instructions, # 100 each, Refills 11, Tot. Refills 11, Maintenance, Use lancets to check blood glucose up to 3x a day. E11., 08/15/19 7:37:00 EDT, Supply, 160, cm, 07/08/19 13:03:00 EDT, Height,56.5, kg, 05/29/19 13:36:00 EDT, Dry Weight Start Date: 08/15/19 Status: Ordered Freestyle Lite Monitor See Instructions, # 1 each, Refills 0, Tot. Refills 0, Maintenance, Use glucose meter to check blood glucose up to 3x a day. E11., 07/11/19 12:58:00 EDT, Supply, 160, cm, 07/08/19 13:03:00 EDT, Height, 56.5, kg, 05/29/19 13:36:00 EDT, Dry Weight Start Date: 07/11/19 Status: Ordered Freestyle Lite Test Strips See Instructions, # 90 each, Refills 11, Tot. Refills 11, Maintenance, Use test strips to check blood glucose up to 3x a day, E11., 07/11/19 12:59:00 EDT, Supply, 160, cm, 07/08/19 [...] 1 Refills, Soft Stop, 11/20/19 11:59:00 EDT, [facility], 160.02, cm, 11/15/19 10:05:00 [...] 02/25/19 16:55:00 EST, Route to Pharmacy Electronically, [facility], 158, cm, 02/14/19 7:55:00 EST, Height, 61.9, kg, 02/12/19 10:17:00... Start Date: 02/25/19 Status: Ordered montelukast 10 mg oral tablet 10 mg, 1, tablet, By Mouth, Daily in PM, # 90 tablet, Refills 3, Tot. Refills 3, Maintenance, 08/15/19 16:21:00 EDT, Route to Pharmacy Electronically, [facility], 160, cm, 08/15/19 13:45:00 EDT, Height, 56.5, kg, 05/29/19 13:36:00... Start Date: 08/15/19 Status: Ordered ondansetron 4 mg oral tablet, disintegrating 1 tablet = 4 mg, By Mouth, Every 8 hours, PRN as needed for nausea/vomiting, # 9 tablet, 0 Refills,Maintenance, 10/06/19 21:07:00 EDT, DIS Tablet, [facility] Start Date: 10/06/19 Stop Date: 10/09/19 Status: Ordered ProAir HFA 90 mcg/inh inhalation aerosol with adapter 2, puffs, Inhalation, Every 4 hours, PRN, # 8.5 Gm, Refills 2, Tot. Refills 2, Maintenance, 04/29/19 11:32:00 EST, Aerosol, Route to Pharmacy Electronically, NCPDP_[id number], [facility], 160, cm, 04/29/19 10:47:00 EST, Height... Start Date: 04/29/19 Status: Ordered Symbicort 160mcg/4.5mcg Inhaler 2, puffs, Inhalation, 2 times a day, use with spacer chamber, # 1 each, Refills 11, Tot. Refills 11, Maintenance, 07/08/19 13:36:00 EDT, Route to Pharmacy Electronically, NCPDP_[id number], [facility], 160, cm, 07/08/19 13:03:00 ED... Start Date: 07/08/19 Status: Ordered Topamax 50 mg oral tablet See Instructions, take 1 tab in am and 2 tab at bedtime. If AM dose causes bad sedation, add to HS dose., # 90 tablet, 6 Refills, Maintenance, 03/12/20 11:09:00 EST, Tablet, [facility], weaning zonegran off by [...] 6 Refills, Soft Stop, 03/12/20 11:04:00 EST, [facility], Partial fill upon patient request if the prescription is for a schedule II opioid drug., 160.02, cm, 03/10/20 8:18:00 EST, H... Start Date: 03/12/20 Stop Date: 10/08/20 Status: Ordered Zofran 4 mg oral tablet 1 tablet = 4 mg, By Mouth, Every 8 hours, PRN Nausea & Vomiting, # 30 tablet, 0 Refills, Maintenance, 09/30/19 11:23:00 EDT, [facility], 160.02, cm, 09/24/19 [...] perst 3folowed by mental health;recent hospitalization 4gyn 82384 6testing negative insulinoma 7likley dumping sydrome 8abnormal GTT ;sugar 36 two hours into test 9sees gi 10normal CT brain 11new 125.3 cm,right per ct scan recent;seeing gynecology soon;they will review 13vit d deficiency;correct 585710 15per endocrinology monitor 16correction refer GTT; 2 hour glucose 36 17refer GGT 18seeing ortho;pre op 19asma,ama neg/cerulopalsmain wnl,AAT wnl 20Negative hep A antibody positive hep B surface antibody negative antigen negative hep C, normal ferritin 21ukltrasound Diagnosis Diagnosis Type Effective Dates Health Status Clinical Service Informant Coccydynia Discharge Diagnosis 03/10/20 Right wrist pain Discharge Diagnosis 03/10/20 Vital Signs Most recent to oldest [Reference Range]: 1 Height 160.02 cm (03/10/20 8:18 AM) Social History Social History Type Response Smoking Status Never smoker entered on: 02/20/13 Sex
--- OUTSIDE RECORDS SUMMARY | 2022-08-17 08:20 | XMS_ITS | Continuity of Care Document ---
Author Name Unknown Organization [facility] lt Address [address] [place] [address]- Care Team Providers Care Oil And Gas Principal Name Role Phone Eran GROUNDWATER CONSULTANT, Sue Dahl Primary Care Physician Encounter [facility] Date(s): 12/08/21 - 01/07/22 [facility] [address] [place] [address]- Allergies, Adverse Reactions, Alerts Substance Reaction Severity Status Dust Allergy to pollen Active Pollen seasonal allergies respiratory symptoms Active Incruse Ellipta 1 lightheaded and migraine Active 1dizzy Immunizations Given and Recorded Vaccine Date Status Refusal Reason [id number] 12y+ bivalent booster vax 1 12/24/21 Given [...] vaccine, inactivated 02/08/11 Give n SARS-CoV-2 mRNA ([id number]) vax 05/01/21 Recorded zoster vaccine, inactivated 11/03/20 [...] tetanus-diphtheria toxoids (Td) 08/03/05 Given 1Result Comment: [id number] 2Result Comment: [id number] 3Result Comment: [12/07/2017] [id number] 4Result Comment: [12/21/2016] [facility]: [id number] 5Result Comment: [06/10/2015] #3 6Admin Note: per pt 7Admin Note: given in clinic Medications acarbose 25 mg oral tablet See Instructions, 1 tablet with 50 mg (total 75 mg) By Mouth before lunch, # 30 each, 11 Refills, Maintenance, 11/03/21 8:24:00 EDT, Tablet, [facility], 158, cm, 11/03/21 8:01:00EDT, Height, 71.5, kg, 09/01/21 16:21:00 EDT, Dry W... Start Date: 11/03/21 Status: Ordered acarbose 50 mg oral tablet See Instructions, 1 tablet with 25 mg (total 75 mg) By Mouth before lunch, # 30 each, 11 Refills, Maintenance, 11/03/21 8:23:00 EDT, Tablet, [facility], Partial fill upon patientrequest if the prescription is for a schedule II op... Start Date: 11/03/21 Status: Ordered acetaminophen 500 mg oral tablet 2 tablet = 1,000 mg, By Mouth, Every 6 hours, PRN as needed for fever, # 200 tablet, 0 Refills, Maintenance, 12/03/21 10:17:00 EDT, Tablet, [facility], Partial fill upon patient request if the prescription is for a schedule II opi... Start Date: 12/03/21 Status: Ordered Albuterol (Eqv-ProAir HFA) 90 mcg/inh inhalation aerosol 2 puffs, Inhalation, Every 4 hours, PRN NEEDED FOR WHEEZING, # 8.5 Gm, 1 Refills, Maintenance, 12/03/21 14:16:00 EDT, [facility], 18, INHALE TWO PUFFS EVERY 4 HOURS NEEDED FOR WHEEZING, 163, cm, 12/03/21 9:39:00 EDT, Height,... Start Date: 12/03/21 Status: Ordered calcium (as citrate)-vitamin D 315 mg-250 intl units oral tablet 2 tablet, By Mouth, 2 times a day, # 120 tablet, 6 Refills, Maintenance, 11/03/21 8:23:00 EDT, Tablet, [facility], 2 tablet By Mouth [...] Refills, Maintenance, 11/22/21 9:49:00 EDT, CR Capsule, [facility], Partial fill upon patient request if the prescription is for a schedule II opioid... Start Date: 11/22/21 Status: Ordered Emgality Prefilled Pen 120 mg/mL subcutaneous solution = 120 mg, Subcutaneous Injection, Once, Maintenance Dose, # 1 kit, 6 Refills, Soft Stop, 12/30/21 12:19:00 EDT, [facility], Partial fill upon patient request if the prescription is for a schedule II opioid drug., 163, cm, 12/24/21... Start Date: 12/30/21 Status: Ordered EPINEPHrine 1 mg/mL injectable solution 0.3 mL = 0.3 mg, Intramuscular, Once, # 1 mL, 1 Refills, Soft Stop, 03/08/21 15:07:00 EST, Solution, [facility], Partial fill upon patient [...] 11/15/21 10:56:00 EDT, Route to Pharmacy Electronically, [facility], 158, cm, 11/03/21 8:01:00 EDT, Height, 71.5, kg, 09/01/21 16:21:00 EDT, Mark Start Date: 11/15/21 Status: Ordered montelukast 10 mg oral tablet 1, tablet, By Mouth, Daily in PM, # 90 tablet, Refills 1, Tot. Refills 1, Maintenance, 11/14/21 11:28:00 EDT, Route to Pharmacy Electronically, [facility], 158, cm, 11/03/21 8:01:00 EDT, Height, 71.5, kg, 09/01/21 16:21:00 EDT, Start Date: 11/14/21 Status: Ordered Nurtec ODT 75 mg oral tablet, disintegrating See Instructions, TAKE ONE TABLET DAILY NEEDED FOR migraines, DO NOT EXCEED ONE TABLET IN 24 HOURS, # 8 tablet, 6 Refills, Maintenance, 12/28/21 15:14:00 EDT, [facility], 163,cm, 12/24/21 8:20:00 EDT, Height, 67, kg, 11/26/21... Start Date: 12/28/21 Status: Ordered Reclast = 5 mg, IV Infusion, Once, 0 Refills, Maintenance, 11/06/20 10:24:00 EDT, administered at [facility] 10/2020 Start Date: 11/06/20 Status: [...] 11/23/21 19:57:00 EDT, Route to Pharmacy Electronically, NCPDP_[id number], [facility], 158, cm, 11/03/21 8:0... Start [...] 5 Refills, Maintenance, 12/10/21 9:44:00 EDT, Tablet, [facility], Partial fill upon patient [...] Active Vitamin D deficiency Confirmed Active 1gyn 02336 3testing negative insulinoma 4likley dumping sydrome 5abnormal GTT ;sugar 36 two hours into test 6sees gi 7normal CT brain 8new 9resolved after weight loss 10chronic perst 115.3 cm,right per ct scan recent;seeing gynecology soon;they will review 12vit d deficiency;correct [id number] 14per endocrinology monitor 15correction refer GTT; 2 hour glucose 36 16refer GGT 17seeing ortho;pre op 18asma,ama neg/cerulopalsmain wnl,AAT wnl 19Negative hep A antibody positive hep B surface antibody negative antigen negative hep C, normal ferritin 20ukltrasound Social History Social History Type Response Smoking Status Never smoker entered on: 02/20/13 Sex Patient Care team information Personnel Name: Sue Barillas NP Address: Address: [address] [place] [id number]
--- OUTSIDE RECORDS SUMMARY | 2022-08-17 08:20 | XMS_ITS | Continuity of Care Document ---
Author Name Unknown Organization [facility] Address [address] [place] [id number]- Care Team Providers Care Field Agronomist Name Role Phone Eran Sue JOHNSON Primary Care Physician Encounter [facility] [place] Date(s): 08/18/21 - 09/17/21 [facility] [address] [place] [id number]- [place] Allergies, Adverse Reactions, Alerts Substance Reaction Severity Status Dust Allergy to pollen Active Pollen seasonal allergies respiratory symptoms Active Incruse Ellipta 1 lightheaded and migraine Active 1dizzy Immunizations Given and Recorded Vaccine Date Status Refusal Reason SARS-CoV-2 mRNA (mufjfvp-bbin-oqott) vax 05/01/21 Recorded influenza virus vaccine, inactivated [...] toxoids (Td) 08/03/05 Given 1Result Comment: [12/07/2017] [address]-13 2Result Comment: [12/21/2016] [facility]: 61391-166-63 3Result Comment: [06/10/2015] #3 4Admin Note: per pt 5Admin Note: given in clinic Medications acarbose 25 mg oral tablet 1 tablet = 25 mg, By Mouth, 3 times a day, Take 1 tab (plus 1 50mg tab), 3 times daily with meals.,# 270 tablet, 3 Refills, Maintenance, 02/03/21 8:34:00 EST, Tablet, [facility], Partial fill upon patient request if the prescript... Start Date: 02/03/21 Status: Ordered acarbose 50 mg oral tablet 1 tablet = 50 mg, By Mouth, 3 times a day, Take 1 tab (plus 1 25mg tab), 3 times daily with meals.,# 270 tablet, 3 Refills, Maintenance, 02/03/21 8:34:00 EST, Tablet, [facility], Partial fill upon [...] constipation, 08/23/21 8:22:00 EDT, Route to Pharmacy Electronically,[facility], Partial fill upon patient... Start Date: 08/23/21 Status: Ordered Dexilant 60 mg oral delayed release capsule 1 capsule = 60 mg, By Mouth, 2 times a day, 30 min before meal, # 60 capsule, 5 Refills, Maintenance, 04/16/21 14:29:00 EST, CR Capsule, [facility], Partial fill upon patient request if the prescription is for a schedule II opioi... Start Date: 04/16/21 Status: Ordered Emgality Prefilled Pen 120 mg/mL subcutaneous solution = 120 mg, Subcutaneous Injection, Once, Maintenance Dose, # 1 kit, 6 Refills, Soft Stop, 06/29/21 10:09:00 EDT, [facility], Partial fill upon patient request if the prescription is for a schedule II opioid drug., 158, cm, 06/29/21... Start Date: 06/29/21 Status: Ordered EPINEPHrine 1 mg/mL injectable solution 0.3 mL = 0.3 mg, Intramuscular, Once, # 1 mL, 1 Refills, Soft Stop, 03/08/21 15:07:00 EST, Solution, [facility], Partial fill upon [...] 09/17/21 14:13:00 EDT, Route to Pharmacy Electronically, [facility], 158, cm, 09/16/21 9:43:00 EDT, Height, 71.5, kg, 09/01/21 16:21:00 EDT, D... Start Date: 09/17/21 Status: Ordered meclizine 25 mg oral tablet See Instructions, PRN for dizziness, Take 1 tablet every 8 hours as needed for dizziness, # 15 tablet, 0 Refills, Maintenance, 11/03/20 7:49:00 EDT, Tablet, [facility], Partial fill upon patient request if the prescription is for... Start Date: 11/03/20 Status: Ordered montelukast 10 mg oral tablet 10 mg, 1, tablet, By Mouth, Daily in PM, # 90 tablet, Refills 1, Tot. Refills 1, Maintenance, 04/23/21 12:32:00 EST, Route to Pharmacy Electronically, [facility], 158, cm, 04/09/21 8:13:00 EST, [...] Refills, Maintenance, 12/10/20 12:36:00 EDT,DIS Tablet, [facility], has t... Start Date: 12/10/20 Stop Date: 07/08/21 Status: Ordered Reclast = 5 mg, IV Infusion, Once, 0 Refills, Maintenance, 11/06/20 10:24:00 EDT, administered at [facility] 10/2020 Start Date: 11/06/20 Status: [...] 1resolved after weight loss 2chronic perst 3gyn 65962 5testing negative insulinoma 6likley dumping sydrome 7abnormal GTT ;sugar 36 two hours into test 8sees gi 9normal CT brain 10new 115.3 cm,right per ct scan recent;seeing gynecology soon;they will review 12vit d deficiency;correct [id number] 14per endocrinology monitor 15correction refer GTT; 2 hour glucose 36 16refer GGT 17seeing ortho;pre op 18asma,ama neg/cerulopalsmain wnl,AAT wnl 19Negative hep A antibody positive hep B surface antibody negative antigen negative hep C, normal ferritin 20ukltrasound Social History Social History Type Response Smoking Status Never smoker entered on: 02/20/13 Sex
--- OUTSIDE RECORDS SUMMARY | 2022-08-17 08:20 | XMS_ITS | Continuity of Care Document ---
Author Name Unknown Organization [facility] Address [address] [place] [address]- Care Team Providers Care It Support Manager Name Role Phone Louisa LANDRUM, Taras Fuentes Primary Care Physician [place] [facility] [place]19 [facility] Adult [address] [place] [address]- [facility] Attending Physician: Admtr, Ar8 Allergies, Adverse Reactions, Alerts Substance Reaction Severity [...] toxoids (Td) 08/03/05 Given 1Result Comment: [12/07/2017] [address]-05 2Result Comment: [12/21/2016] [facility]: 05450-292-60 3Result Comment: [06/10/2015] #3 4Admin Note: per pt 5Admin Note: given in clinic Medications amoxicillin 500 mg oral tablet See Instructions, 4 by mouth one hour prior dental work, # 4 tablet, 1 Refills, Maintenance, 04/24/19 10:41:00 EST, [facility], 160, cm, 04/11/19 12:38:00 EST, Height, 64.5, kg, 04/06/19 19:26:00 EST, Dry Weight Start Date: 04/24/19 Status: Ordered Dexilant 60 mg oral delayed release capsule 1 capsule = 60 mg, By Mouth, 2 times a day, # 60 capsule, 5 Refills, Maintenance, 12/31/18 11:53:09EDT Start Date: 12/31/18 Status: Ordered fludrocortisone 0.1 mg oral tablet 1 tablet = 0.1 mg, By Mouth, 2 times a day, take with full glass of water, # 60 Doses, 11 Refills, Maintenance, 05/15/18 9:07:39 EDT, Tablet, new dose Start Date: 05/15/18 Status: Ordered KlonoPIN 1 mg oral tablet [...] 02/25/19 16:55:00 EST, Route to Pharmacy Electronically, [facility], 158, cm, 02/14/19 7:55:00 EST, Height, 61.9, kg, 02/12/19 10:17:00... Start Date: 02/25/19 Status: Ordered ProAir HFA 90 mcg/inh inhalation aerosol with adapter 2, puffs, Inhalation, Every 4 hours, PRN, # 8.5 Gm, Refills 2, Tot. Refills 2, Maintenance, 04/29/19 11:32:00 EST, Aerosol, Route to Pharmacy Electronically, [id number]_[id number], [facility], 160, [...] Date: 02/14/19 Stop Date: 08/13/19 Status: Ordered tiZANidine 4 mg oral tablet 4 mg, By Mouth, 3 times a day, not to exceed 3 doses/day caution: can cause light-headedness and drowsiness., # 42 tablet, Refills 0, Tot. Refills 0, Maintenance, 06/05/18 10:17:45 EDT, Print Requisition Start Date: 06/05/18 Stop Date: 06/19/18 Status: Ordered Zofran 4 mg oral tablet 1 tablet = 4 mg, By Mouth, Every 8 hours, # 12 tablet, 0 Refills, Maintenance, 04/29/19 11:38:00 EST, Tablet, [facility], 160, cm, 04/29/19 10:47:00 EST, Height, 64.5, kg, 04/06/19 19:26:00 EST, Dry Weight Start Date: 04/29/19 Status: Ordered Zonegran 25 mg oral capsule 2 capsule = 50 mg, By Mouth, 2 times a day, after weaning off topamax start this medication, # 120 capsule, 5 Refills, Maintenance, 04/12/19 12:59:00 EST, Capsule, [facility], 160, cm, 04/11/19 12:38:00 [...] perst 3folowed by mental health;recent hospitalization 4gyn 17540 6testing negative insulinoma 7likley dumping sydrome 8abnormal GTT ;sugar 36 two hours into test 9sees gi 10normal CT brain 11new 125.3 cm,right per ct scan recent;seeing gynecology soon;they will review 13vit d deficiency;correct [id number] 15per endocrinology monitor 16correction refer GTT; 2 hour glucose 36 17refer GGT 18seeing ortho;pre op 19asma,ama neg/cerulopalsmain wnl,AAT wnl 20Negative hep A antibody positive hep B surface antibody negative antigen negative hep C, normal ferritin 21ukltrasound Procedures Procedure Date Related Diagnosis Body Site Status Plain X-ray lumbar spine abn ormal post op chngs 01/11/19 Completed Endoscopy 1, 2 05/24/16 Completed Radiologic examination, wris t; complete, minimum of 3 views 3 09/17/12 C ompleted Dual-energy X-ray absorptiom etry (DXA), bone density study, 1 or more sites; axial skeleton (eg, hips, pelvis, spine) 4 07/08/10 Completed 1z-line irregular 36cm from incisiors biopsied 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 the gastrojejunal anastomosis was characterized by healthy appearing mucosa 3neg 4normal Social History Social History Type Response Smoking Status Never smoker entered on: 02/20/13 Sex
--- OUTSIDE RECORDS SUMMARY | 2022-08-17 08:20 | XMS_ITS | Continuity of Care Document ---
Author Name Unknown Organization [facility] Address [address] [place] [address]- Care Team Providers Care Social Sciences Instructor Name Role Phone Eran DIALYSIS NURSE, Sue Dahl Primary Care Physician Encounter [facility] [place] Date(s): 11/29/21 - 12/30/21 [facility] Adult [address] [place] [address]- Attending Physician: Not on Staff, Attending MD Allergies, Adverse Reactions, Alerts Substance Reaction Severity Status Dust Allergy to pollen Active Pollen seasonal allergies respiratory symptoms Active Incruse Ellipta 1 lightheaded and migraine Active 1dizzy Immunizations Given and Recorded Vaccine Date Status Refusal Reason [id number] 12y+ bivalent booster vax 1 12/24/21 Given influenza virus vaccine, inactivated 2 12/24/21 Gi vickie influenza virus vaccine, inactivated 12/11/20 Give n influenza virus vaccine, inactivated 12/02/19 Give n influenza virus vaccine, inactivated 11/21/18 Give n influenza virus vaccine, inactivated 3 12/06/17 Gi vickie influenza virus vaccine, inactivated 12/21/16 Gi vickie influenza virus vaccine, inactivated 12/31/15 Give n influenza virus vaccine, inactivated 01/22/15 Jose Carlos rded influenza virus vaccine, inactivated 12/13/13 Give n influenza virus vaccine, inactivated 12/10/12 Give n influenza virus vaccine, inactivated 02/08/11 Give n SARS-CoV-2 mRNA ([id number]) vax 05/01/21 Recorded zoster vaccine, inactivated 11/03/20 [...] tetanus-diphtheria toxoids (Td) 08/03/05 Given 1Result Comment: [id number] 2Result Comment: 59468-892-74 3Result Comment: [12/07/2017] [address]-73 4Result Comment: [12/21/2016] [facility]: 23875-101-11 5Result Comment: [06/10/2015] #3 6Admin Note: per pt 7Admin Note: given in clinic Medications acarbose 25 mg oral tablet See Instructions, 1 tablet with 50 mg (total 75 mg) By Mouth before lunch, # 30 each, 11 Refills, Maintenance, 11/03/21 8:24:00 EDT, Tablet, [facility], 158, cm, 11/03/21 8:01:00EDT, Height, 71.5, kg, 09/01/21 16:21:00 EDT, Dry W... Start Date: 11/03/21 Status: Ordered acarbose 50 mg oral tablet See Instructions, 1 tablet with 25 mg (total 75 mg) By Mouth before lunch, # 30 each, 11 Refills, Maintenance, 11/03/21 8:23:00 EDT, Tablet, [facility], Partial fill upon patientrequest if the prescription is for a schedule II op... Start Date: 11/03/21 Status: Ordered acetaminophen 500 mg oral tablet 2 tablet = 1,000 mg, By Mouth, Every 6 hours, PRN as needed for fever, # 200 tablet, 0 Refills, Maintenance, 12/03/21 10:17:00 EDT, Tablet, [facility], Partial fill upon patient request if the prescription is for a schedule II opi... Start Date: 12/03/21 Status: Ordered Albuterol (Eqv-ProAir HFA) 90 mcg/inh inhalation aerosol 2 puffs, Inhalation, Every 4 hours, PRN NEEDED FOR WHEEZING, # 8.5 Gm, 1 Refills, Maintenance, 12/03/21 14:16:00 EDT, [facility], 18, INHALE TWO PUFFS EVERY 4 HOURS NEEDED FOR WHEEZING, 163, cm, 12/03/21 9:39:00 EDT, Height,... Start Date: 12/03/21 Status: Ordered calcium (as citrate)-vitamin D 315 mg-250 intl units oral tablet 2 tablet, By Mouth, 2 times a day, # 120 tablet, 6 Refills, Maintenance, 11/03/21 8:23:00 EDT, Tablet, [facility], 2 tablet By Mouth 2 [...] Refills, Maintenance, 11/22/21 9:49:00 EDT, CR Capsule, [facility], Partial fill upon patient request if the prescription is for a schedule II opioid... Start Date: 11/22/21 Status: Ordered Emgality Prefilled Pen 120 mg/mL subcutaneous solution = 120 mg, Subcutaneous Injection, Once, Maintenance Dose, # 1 kit, 6 Refills, Soft Stop, 12/30/21 12:19:00 EDT, [facility], Partial fill upon patient request if the prescription is for a schedule II opioid drug., 163, cm, 12/24/21... Start Date: 12/30/21 Status: Ordered EPINEPHrine 1 mg/mL injectable solution 0.3 mL = 0.3 mg, Intramuscular, Once, # 1 mL, 1 Refills, Soft Stop, 03/08/21 15:07:00 EST, Solution, [facility], Partial fill upon patient [...] 11/15/21 10:56:00 EDT, Route to Pharmacy Electronically, [facility], 158, cm, 11/03/21 8:01:00 EDT, Height, 71.5, kg, 09/01/21 16:21:00 EDTMark Start Date: 11/15/21 Status: Ordered montelukast 10 mg oral tablet 1, tablet, By Mouth, Daily in PM, # 90 tablet, Refills 1, Tot. Refills 1, Maintenance, 11/14/21 11:28:00 EDT, Route to Pharmacy Electronically, [facility], 158, cm, 11/03/21 8:01:00 EDT, Height, 71.5, kg, 09/01/21 16:21:00 EDT, Start Date: 11/14/21 Status: Ordered Nurtec ODT 75 mg oral tablet, disintegrating See Instructions, TAKE ONE TABLET DAILY NEEDED FOR migraines, DO NOT EXCEED ONE TABLET IN 24 HOURS, # 8 tablet, 6 Refills, Maintenance, 12/28/21 15:14:00 EDT, [facility], 163,cm, 12/24/21 8:20:00 EDT, Height, 67, kg, 11/26/21... Start Date: 12/28/21 Status: Ordered Reclast = 5 mg, IV Infusion, Once, 0 Refills, Maintenance, 11/06/20 10:24:00 EDT, administered at [facility] 10/2020 Start Date: 11/06/20 Status: [...] 11/23/21 19:57:00 EDT, Route to Pharmacy Electronically, NCPDP_[id number], [facility], 158, cm, 11/03/21 8:0... Start [...] 5 Refills, Maintenance, 12/10/21 9:44:00 EDT, Tablet, [facility], Partial fill upon patient [...] Active Vitamin D deficiency Confirmed Active 1gyn 12598 3testing negative insulinoma 4likley dumping sydrome 5abnormal GTT ;sugar 36 two hours into test 6sees gi 7normal CT brain 8new 9resolved after weight loss 10chronic perst 115.3 cm,right per ct scan recent;seeing gynecology soon;they will review 12vit d deficiency;correct [id number] 14per endocrinology monitor 15correction refer GTT; 2 hour glucose 36 16refer GGT 17seeing ortho;pre op 18asma,ama neg/cerulopalsmain wnl,AAT wnl 19Negative hep A antibody positive hep B surface antibody negative antigen negative hep C, normal ferritin 20ukltrasound Social History Social History Type Response Smoking Status Never smoker entered on: 02/20/13 Sex Patient Care team information Personnel Name: Eran JOHNSON, Sue Dahl Address: Address: [address] [place] [id number]
--- OUTSIDE RECORDS SUMMARY | 2022-08-17 08:20 | XMS_ITS | Continuity of Care Document ---
Author Name Unknown Organization [facility]ton [facility] Address [address] [place] [address]- Care Team Providers Care Soil Field Technician Name Role Phone Eran VARYING EXCEPTIONALITIES TEACHER, Sue Dahl Primary Care Physician [phone] Encounter [facility] Date(s): 07/15/21 - 08/14/21 [facility] [address] [place] [address]- Allergies, Adverse Reactions, Alerts Substance Reaction Severity Status Dust Allergy to pollen Active Pollen seasonal allergies respiratory symptoms Active Incruse Ellipta 1 lightheaded and migraine Active 1dizzy Immunizations Given and Recorded Vaccine Date Status Refusal Reason SARS-CoV-2 mRNA (dykqjuw-lvmn-bsdxi) vax 05/01/21 Recorded influenza virus vaccine, inactivated [...] toxoids (Td) 08/03/05 Given 1Result Comment: [12/07/2017] [id number] 2Result Comment: [12/21/2016] [facility]: 80871-426-27 3Result Comment: [06/10/2015] #3 4Admin Note: per pt 5Admin Note: given in clinic Medications acarbose 25 mg oral tablet 1 tablet = 25 mg, By Mouth, 3 times a day, Take 1 tab (plus 1 50mg tab), 3 times daily with meals.,# 270 tablet, 3 Refills, Maintenance, 02/03/21 8:34:00 EST, Tablet, [facility], Partial fill upon patient request if the prescript... Start Date: 02/03/21 Status: Ordered acarbose 50 mg oral tablet 1 tablet = 50 mg, By Mouth, 3 times a day, Take 1 tab (plus 1 25mg tab), 3 times daily with meals.,# 270 tablet, 3 Refills, Maintenance, 02/03/21 8:34:00 EST, Tablet, [facility], Partial fill upon [...] 30 mL, 1 Refills, 06/28/21 13:52:00 EDT, [facility], 158, cm, 05/24/21 16:05:00 EDT, Height, 80.6, kg, 03/08/21 12:18... Start Date: 06/28/21 Status: Ordered Dexilant 60 mg oral delayed release capsule 1 capsule = 60 mg, By Mouth, 2 times a day, 30 min before meal, # 60 capsule, 5 Refills, Maintenance, 04/16/21 14:29:00 EST, CR Capsule, [facility], Partial fill upon patient request if the prescription is for a schedule II opioi... Start Date: 04/16/21 Status: Ordered Emgality Prefilled Pen 120 mg/mL subcutaneous solution = 120 mg, Subcutaneous Injection, Once, Maintenance Dose, # 1 kit, 6 Refills, Soft Stop, 06/29/21 10:09:00 EDT, [facility], Partial fill upon patient request if the prescription is for a schedule II opioid drug., 158, cm, 06/29/21... Start Date: 06/29/21 Status: Ordered EPINEPHrine 1 mg/mL injectable solution 0.3 mL = 0.3 mg, Intramuscular, Once, # 1 mL, 1 Refills, Soft Stop, 03/08/21 15:07:00 EST, Solution, [facility], Partial fill upon [...] 05/24/21 11:12:00 EDT, Route to Pharmacy Electronically, [facility], 158, cm, 05/14/21 7:52:00 EST, Height, 80.6, kg, 03/08/21 12:18:00 EST, D... Start Date: 05/24/21 Status: Ordered meclizine 25 mg oral tablet See Instructions, PRN for dizziness, Take 1 tablet every 8 hours as needed for dizziness, # 15 tablet, 0 Refills, Maintenance, 11/03/20 7:49:00 EDT, Tablet, [facility], Partial fill upon patient request if the prescription is for... Start Date: 11/03/20 Status: Ordered montelukast 10 mg oral tablet 10 mg, 1, tablet, By Mouth, Daily in PM, # 90 tablet, Refills 1, Tot. Refills 1, Maintenance, 04/23/21 12:32:00 EST, Route to Pharmacy Electronically, [facility], 158, cm, 04/09/21 8:13:00 EST, [...] 6 Refills, Maintenance, 12/10/20 12:36:00 EDT,DIS Tablet, [facility], has t... Start Date: 12/10/20 Stop Date: 07/08/21 Status: Ordered [place] 0.65% nasal spray 2 sprays, Nares, Both, 4 times a day, # 1 each, 3 Refills, Maintenance, 05/14/21 11:40:00 EST, [facility], Partial fill upon patient request if the prescription is for a scheduleII opioid drug., 2 sprays Nares, Both 4 times a day... Start Date: 05/14/21 Status: Ordered ProAir HFA 90 mcg/inh inhalation aerosol with adapter 2, puffs, Inhalation, Every 4 hours, PRN, # 8.5 Gm, Refills 1, Tot. Refills 1, Maintenance, 05/13/21 19:25:00 EST, Aerosol, Route to Pharmacy Electronically, NCPDP_[id number], [facility], 158, cm, 05/06/21 6:58:00 EST, Height, 80.... Start Date: 05/13/21 Status: Ordered Reclast = 5 mg, IV Infusion, Once, 0 Refills, Maintenance, 11/06/20 10:24:00 EDT, administered at [facility] 10/2020 Start Date: 11/06/20 [...] Gm, Refills 11, Route to Pharmacy Electronically, NCPDP_[id number], [facility], 158.02, cm, 11/13/20 8:38:00 [...] 1resolved after weight loss 2chronic perst 3gyn 85390 5testing negative insulinoma 6likley dumping sydrome 7abnormal GTT ;sugar 36 two hours into test 8sees gi 9normal CT brain 10new 115.3 cm,right per ct scan recent;seeing gynecology soon;they will review 12vit d deficiency;correct 259279 14per endocrinology monitor 15correction refer GTT; 2 hour glucose 36 16refer GGT 17seeing ortho;pre op 18asma,ama neg/cerulopalsmain wnl,AAT wnl 19Negative hep A antibody positive hep B surface antibody negative antigen negative hep C, normal ferritin 20ukltrasound Social History Social History Type Response Smoking Status Never smoker entered on: 02/20/13 Sex
--- OUTSIDE RECORDS SUMMARY | 2022-08-17 08:20 | XMS_ITS | Continuity of Care Document ---
Author Name Unknown Organization [facility] ter Address [address] [place] [id number]- Care Team Providers Care Front Office Attendant Name Role Phone Eran PATHOLOGY TECHNICIAN, Sue Dahl Primary Care Physician Encounter [facility] Date(s): 11/26/21 - 11/26/[address] [address]- Encounter Diagnosis Abdominal pain(Final) - 11/26/21 Discharge Disposition: A-D/C Home Attending Physician: Lissette Nugent MD Admitting Physician: Lissette Nugent MD Referring Physician: Not on Staff, Referring MD Allergies, Adverse Reactions, Alerts Substance Reaction Severity Status Dust Allergy to pollen Active Pollen seasonal allergies respiratory symptoms Active Incruse Ellipta 1 lightheaded and migraine Active 1dizzy Immunizations Given and Recorded Vaccine Date Status Refusal Reason SARS-CoV-2 mRNA (gymszuk-pyzw-vxytw) vax 05/01/21 Recorded influenza virus vaccine, inactivated [...] toxoids (Td) 08/03/05 Given 1Result Comment: [12/07/2017] [address]-50 2Result Comment: [12/21/2016] [facility]: [id number] 3Result Comment: [06/10/2015] #3 4Admin Note: per [...] II op... Start Date: 11/03/21 Status: Ordered calcium (as citrate)-vitamin D 315 [...] constipation, 08/23/21 8:22:00 EDT, Route to Pharmacy Electronically,[facility], Partial fill upon patient... Start [...] 6 Refills, Soft Stop, 06/29/21 10:09:00 EDT, [facility], Partial fill [...] EDT, Mark Start Date: 11/15/21 Status: Ordered meclizine 25 mg oral tablet See Instructions, PRN for dizziness, Take 1 tablet every 8 hours as needed for dizziness, # 15 tablet, 0 Refills, Maintenance, 11/03/20 7:49:00 EDT, Tablet, [facility], Partial [...] 16:21:00 EDT, Start Date: 11/14/21 Status: Ordered MorPHINE Inj 4 mg, Injection, IV Push Slowly, Every 5 minutes for 3 doses/times, PRN for Pain , Moderate, and SBP greater than 100, Routine, 11/26/21 10:01:00 EDT, Stop date Limited # of times Start Date: 11/26/21 Stop Date: 11/27/21 Status: Discontinued NaCL 0.9% Flush 5 mL, IV Push, [...] 6 Refills, Maintenance, 12/10/20 12:36:00 EDT,DIS Tablet, [facility], has t... Start Date: 12/10/20 Stop Date: 07/08/21 Status: Ordered ondansetron 4 mg oral tablet, disintegrating 1 tablet = 4 mg, By Mouth, Every 8 hours, PRN as needed for nausea/vomiting, # 12 tablet, 0 Refills, Acute 11/29/21 12:00:00 EDT, 11/26/21 15:17:00 EDT, DIS Tablet, [facility], Partial fill upon patient request if the prescription is for... Start Date: 11/26/21 Stop Date: 11/29/21 Status: Ordered Reclast = 5 mg, IV Infusion, Once, 0 Refills, Maintenance, 11/06/20 10:24:00 EDT, administered at [facility] 10/2020 Start Date: 11/06/20 Status: Ordered [...] 11/23/21 19:57:00 EDT, Route to Pharmacy Electronically, [id number]_[id number], [facility], 158, cm, 11/03/21 [...] Spondylosis of lumbar spine MRI 2018 sx 2019 June(Confirmed) Active Adnexal mass(Confirmed) Active [...] 1resolved after weight loss 2chronic perst 3gyn 81567 5testing negative insulinoma 6likley dumping sydrome 7abnormal GTT ;sugar 36 two hours into test 8sees gi 9normal CT brain 10new 115.3 cm,right per ct scan recent;seeing gynecology soon;they will review 12vit d deficiency;correct [id number] 14per endocrinology monitor 15correction refer GTT; 2 hour glucose 36 16refer GGT 17seeing ortho;pre op 18asma,ama neg/cerulopalsmain wnl,AAT wnl 19Negative hep A antibody positive hep B surface antibody negative antigen negative hep C, normal ferritin 20ukltrasound Vital Signs Most recent to oldest [Reference Range]: 1 2 3 Height 163 cm (11/26/21 7:58 AM) Weight 67 kg (11/26/21 7:58 AM) Oxygen Saturation [94-100 %] 99 % (11/26/21 3:38 PM) 93 % *L* (11/26/21 2:09 PM) 100 % (11/26/21 11:52 AM) Pulse Rate [55-90 bpm] 77 bpm (11/26/21 3:38 PM) 103 bpm *H* (11/26/21 2:09 PM) 60 bpm (11/26/21 11:52 AM) Blood Pressure [90-138/55-84 mm Hg] 100/75mm Hg (11/26/21 3:38 PM) 108/71mm Hg (11/26/21 2:09 PM) 116/75mm Hg (11/26/21 10:22 AM) Respiratory Rate [16-30 br/min] 18 br/min (11/26/21 3:38 PM) 18 br/min (11/26/21 2:09 PM) 18 br/min (11/26/21 12:27 PM) Temperature [96.8-100.4 DegF] 97.7 DegF (11/26/21 3:38 PM) 97.7 DegF (11/26/21 9:19 AM) 97.9 DegF (11/26/21 7:59 AM) Mode of Delivery (Oxygen) Room air (11/26/21 3:38 PM) Room air (11/26/21 2:09 PM) Room air (11/26/21 11:52 AM) Blood pressure sites Arm, right (11/26/21 3:38 PM) Arm, right (11/26/21 2:09 PM) Arm, right (11/26/21 10:22 AM) Temperature Route Oral (11/26/21 3:38 PM) Oral (11/26/21 9:19 AM) Oral (11/26/21 7:59 AM) Dry Weight 67 kg (11/26/21 7:58 AM) Weight Obtained Via stated (11/26/21 7:58 AM) Dry Weight Obtained Via stated (11/26/21 7:58 AM) Social History Social History Type Response Smoking Status Never smoker entered on: 02/20/13 Sex Care Team Personnel Name: Sue Barillas NP Address: [address] [place] [id number]
--- OUTSIDE RECORDS SUMMARY | 2022-08-17 08:20 | XMS_ITS | Continuity of Care Document ---
Author Name Unknown Organization [facility] Oswaldo lt Address [address] [place] [address]- Care Team Providers Care Group Fitness Manager Name Role Phone Louisa LANDRUM, Taras Fuentes Primary Care Physician Encounter [facility] Date(s): 03/11/21 - 03/18/21 [facility] [address] [place] [address]- Encounter Diagnosis COVID-19 Feb 06 2021MAB Feb(Discharge Diagnosis) - 03/11/21 Odynophagia(Discharge Diagnosis) - 03/11/21 Attending Physician: Not on Staff, Attending MD Allergies, Adverse Reactions, Alerts Substance Reaction Severity Status Dust Allergy to pollen Active Incruse Ellipta 1 lightheaded and migraine Active Pollen seasonal allergies respiratory symptoms Active 1dizzy Immunizations Given and Recorded Vaccine [...] toxoids (Td) 08/03/05 Given 1Result Comment: [12/07/2017] [address]-73 2Result Comment: [12/21/2016] [facility]: 39454-408-61 3Result Comment: [06/10/2015] #3 4Admin Note: per [...] 3 Refills, Maintenance, 02/03/21 8:34:00 EST, Tablet, [facility], Partial fill upon patient request if the prescript... Start Date: 02/03/21 Status: Ordered acarbose 50 mg oral tablet 1 tablet = 50 mg, By Mouth, 3 times a day, Take 1 tab (plus 1 25mg tab), 3 times daily with meals.,# 270 tablet, 3 Refills, Maintenance, 02/03/21 8:34:00 EST, Tablet, [facility], Partial fill upon patient request if the prescript... Start Date: 02/03/21 Status: Ordered Baqsimi One Pack 3 mg nasal powder See Instructions, 3 mg Once intrasnasally for severe hypoglycemia, # 2 each, 3 Refills, Soft Stop, 08/28/20 10:36:00 EDT, [facility], Partial fill upon patient [...] 5 Refills, Maintenance, 11/06/20 10:28:00 EDT, Tablet, [facility], Replaces loratidine, 158.02, cm, 11/06/20 10:04:00 EDT, Height,67, kg, 09/11/19 11:20:00 EDT, Dry Weight Start Date: 11/06/20 Status: Ordered cholestyramine 4 gm/5 gm oral powder for reconstitution 1 pack/packet, By Mouth, Daily, # 30 pack/packet, 5 Refills, Maintenance, 03/03/21 16:42:00 EST, REC Powder, [facility], Partial fill upon patient [...] 0 Refills, Soft Stop, 03/16/21 16:05:00 EST, [facility], Partial fill upon patient request if the prescription is for a schedule II opioid drug., 158, albertina, 03/11/21 9:1... Start Date: 03/16/21 Status: Ordered Emgality Prefilled Pen 120 mg/mL subcutaneous solution = 120 mg, Subcutaneous Injection, Once, Maintenance Dose, # 1 kit, 5 Refills, Soft Stop, 03/16/21 16:05:00 EST, [facility], Partial fill upon patient request if the prescription is for a schedule II opioid drug., 158, albertina, 03/11/21... Start Date: 03/16/21 Status: Ordered EPINEPHrine 1 mg/mL injectable solution 0.3 mL = 0.3 mg, Intramuscular, Once, # 1 mL, 1 Refills, Soft Stop, 03/08/21 15:07:00 EST, Solution, [facility], Partial fill upon patient [...] 1 Refills, Soft Stop, 11/20/19 11:59:00 EDT, [facility], 160.02, cm, 11/15/19 10:05:00 EDT, Height, 67, kg, 09/11/19 11:20:00 EDT, Dry Weight Start Date: 11/20/19 Status: Ordered meclizine 25 mg oral tablet See Instructions, PRN for dizziness, Take 1 tablet every 8 hours as needed for dizziness, # 15 tablet, 0 Refills, Maintenance, 11/03/20 7:49:00 EDT, Tablet, [facility], Partial fill upon patient request if the prescription is for... Start Date: 11/03/20 Status: Ordered montelukast 10 mg oral tablet 10 mg, 1, tablet, By Mouth, Daily in PM, # 90 tablet, Refills 3, Tot. Refills 3, Maintenance, 08/15/19 16:21:00 EDT, Route to Pharmacy Electronically, [facility], 160, cm, 08/15/19 13:45:00 [...] 6 Refills, Maintenance, 12/10/20 12:36:00 EDT,DIS Tablet, [facility], has t... Start Date: 12/10/20 Stop Date: 07/08/21 Status: Ordered Haralson 0.65% nasal spray 2 sprays, Nares, Both, 4 times a day, # 1 each, 0 Refills, Maintenance, 10/30/20 11:34:00 EDT, [facility], Partial fill upon patient request if the prescription is for a scheduleII opioid drug., 2 sprays Nares, Both 4 times a day... Start Date: 10/30/20 Status: Ordered ProAir HFA 90 mcg/inh inhalation aerosol with adapter 2, puffs, Inhalation, Every 4 hours, PRN, # 8.5 Gm, Refills 1, Tot. Refills 1, Maintenance, 01/06/21 8:26:00 EDT, Aerosol, Route to Pharmacy Electronically, NCPDP_[id number], [facility], 158.02, cm, 01/06/21 8:03:00 EDT, Height, 6... Start Date: 01/06/21 Status: Ordered Reclast = 5 mg, IV Infusion, Once, 0 Refills, Maintenance, 11/06/20 10:24:00 EDT, administered at [facility] 10/2020 Start Date: 11/06/20 Status: [...] Gm, Refills 11, Route to Pharmacy Electronically, NCPDP_[id number], [facility], 158.02, cm, 11/13/20 8:38:00 [...] mL, 1 Refills, Maintenance, 01/06/21 13:36:00 EDT, [facility], Partialfill upon patient request if [...] Obesity(Confirmed) Active Orthostatic hypotension(Confirmed) Active Osteoporosis REclast Aug 202 1/ Endocrinology(Confirmed) 07/03/20 Active Ovarian cyst(Confirmed) 11 Active Leg paresthesia(Confirmed) 07/24/17 Active Personal history of gastric bypass ? 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 Impingement syndrome of shoulder(Confirmed) 17 Active Fatty liver(Confirmed) 18, 19, 20 10/09/16 Active Vitamin D deficiency(Confirmed) Active 1resolved after weight loss 2chronic perst 3gyn 38045 5testing negative insulinoma 6likley dumping sydrome 7abnormal GTT ;sugar 36 two hours into test 8sees gi 9normal CT brain 10new 115.3 cm,right per ct scan recent;seeing gynecology soon;they will review 12vit d deficiency;correct 631520 14per endocrinology monitor 15correction refer GTT; 2 hour glucose 36 16refer GGT 17seeing ortho;pre op 18asma,ama neg/cerulopalsmain wnl,AAT wnl 19Negative hep A antibody positive hep B surface antibody negative antigen negative hep C, normal ferritin 20ukltrasound Diagnosis Diagnosis Type Effective Dates Health Status Clinical Service Informant COVID-19 Feb 06 2021MAB Feb Discharge Diagnosis 03/11/21 Odynophagia Discharge Diagnosis 03/11/21 Vital Signs Most recent to oldest [Reference Range]: 1 Height 158 cm (03/11/21 9:19 AM) Blood Pressure [90-138/55-84 mm Hg] 110/ 84mm Hg (03/11/21 9:19 AM) Social History Social History Type Response Smoking Status Never smoker entered on: 02/20/13 Sex
--- OUTSIDE RECORDS SUMMARY | 2022-08-17 08:20 | XMS_ITS | Continuity of Care Document ---
Author Name Unknown Organization [facility] ter Address [address] [place] [address]- Care Team Providers Care Lithograph Designer Name Role Phone Louisa LANDRUM, Taras Fuentes Primary Care Physician Encounter [facility] Date(s): 10/06/19 - 10/06/[address] [address]- [facility] Discharge Disposition: A-D/C Home Attending Physician: Rebeca Schultz DO Admitting Physician: Rebeca Schultz DO Referring Physician: Not on Staff, Referring MD Allergies, Adverse Reactions, Alerts No Known Medication Allergies Medications ondansetron 4 mg oral tablet, disintegrating 1 tablet = 4 mg, By Mouth, Every 8 hours, PRN as needed for nausea/vomiting, # 9 tablet, 0 Refills,Maintenance, 10/06/19 21:07:00 EDT, DIS Tablet, [facility] Start Date: 10/06/19 Stop Date: 10/09/19 Status: Ordered Results Orders for Microbiology Reports Name Date Urine Culture (URINE CULTURE) 10/06/19 Microbiology Reports TEST:Urine Culture STATUS:Unauthenticated BODY SITE: SOURCE:URINE COLLECTED DATE/TIME:10/06/19 4:24 PM Urine Culture SPECIMEN DESCRIPTION : URINE SPECIAL REQUESTS : NONE REPORT STATUS : PRELIMINARY REPORT Vital Signs Most recent to oldest [Reference Range]: 1 2 3 Oxygen Saturation [94-100 %] 100 % (10/06/19 9:22 PM) 100 % (10/06/19 7:27 PM) 99 % (10/06/19 4:21 PM) Pulse Rate [55-90 bpm] 68 bpm (10/06/19 9:22 PM) 67 bpm (10/06/19 7:27 PM) 77 bpm (10/06/19 4:21 PM) Blood Pressure [90-138/55-84 mm Hg] 128/72mm Hg (10/06/19 9:22 PM) 118/73mm Hg (10/06/19 7:27 PM) 112/74mm Hg (10/06/19 4:21 PM) Respiratory Rate [16-30 br/min] 18 br/min (10/06/19 9:22 PM) 16 br/min (10/06/19 8:07 PM) 18 br/min (10/06/19 7:27 PM) Temperature [96.8-100.4 DegF] 98.6 DegF (10/06/19 9:22 PM) 98.2 DegF (10/06/19 7:27 PM) 98.3 DegF (10/06/19 4:21 PM) Mode of Delivery (Oxygen) Room air (10/06/19 9:22 PM) Room air (10/06/19 7:27 PM) Room air (10/06/19 4:21 PM) Blood pressure sites Arm, left (10/06/19 9:22 PM) Arm, right (10/06/19 7:27 PM) Arm, left (10/06/19 4:21 PM) Temperature Route Oral (10/06/19 9:22 PM) Oral (10/06/19 7:27 PM) Oral (10/06/19 4:21 PM)
--- OUTSIDE RECORDS SUMMARY | 2022-08-17 08:21 | XMS_ITS | Continuity of Care Document ---
Author Name Unknown Organization [facility] Address [address] [place] [address] ve [address] [place] [address]- Care Team Providers Care Graduate Teacher Education Name Role Phone Taras Jasso MD Primary Care Physician Encounter [facility] Date(s): 06/08/20 - 06/15/20 [facility] [address] [place] [address]- Attending Physician: Petr Donato MD Referring Physician: Taras Jasso MD Allergies, Adverse Reactions, [...] toxoids (Td) 08/03/05 Given 1Result Comment: [12/07/2017] [address]-63 2Result Comment: [12/21/2016] [facility]: [id number] 3Result Comment: [06/10/2015] #3 4Admin Note: per [...] 11:32:00 EST, Aerosol, Route to Pharmacy Electronically, NCPDP_[id number], [facility], 160, [...] H/O laparoscopic adjustable gastric banding Feb 2021(Confirmed) 5 Active History of cholecystectomy(Confirmed) 04/10/17 [...] perst 3folowed by mental health;recent hospitalization 4gyn [address] 6testing negative insulinoma 7likley dumping sydrome 8abnormal GTT ;sugar 36 two hours into test 9sees gi 10normal CT brain 11new 125.3 cm,right per ct scan recent;seeing gynecology soon;they will review 13vit d deficiency;correct 081785 15per endocrinology monitor 16correction refer GTT; 2 hour glucose 36 17refer GGT 18seeing ortho;pre op 19asma,ama neg/cerulopalsmain wnl,AAT wnl 20Negative hep A antibody positive hep B surface antibody negative antigen negative hep C, normal ferritin 21ukltrasound Vital Signs Most recent to oldest [Reference Range]: 1 Height 158.02 cm (06/08/20 9:49 AM) Weight 80.6 kg (06/08/20 9:49 AM) Pulse Rate [55-90 bpm] 90 bpm (06/08/20 9:49 AM) Body Mass Index [18.5-24.99] 32.28 *>HHI* (06/08/20 9:49 AM) Blood Pressure [90-138/55-84 mm Hg] 115/ 83mm Hg (06/08/20 9:49 AM) Respiratory Rate [16-30 br/min] 20 br/mi n (06/08/20 9:49 AM) Temperature [96.8-100.4 DegF] 98.4 DegF (06/08/20 9:49 AM) Blood pressure sites Arm, left (06/08/20 9:49 AM) Temperature Route Temporal (06/08/20 9:49 AM) Weight Obtained Via Standing scale (06/08/20 9:49 AM) Social History Social History Type Response Smoking Status Never smoker entered on: 02/20/13 Sex
--- OUTSIDE RECORDS SUMMARY | 2022-08-17 08:21 | XMS_ITS | Continuity of Care Document ---
Author Name Unknown Organization [facility] Oswaldo Address [address] [place] [address]- Care Team Providers Care Surveillance Sensor Officer Name Role Phone Louisa LANDRUM, Taras Fuentes Primary Care Physician Encounter [facility] Date(s): 03/13/19 - 03/23/19 [facility] Adult [address] [place] [address]- [facility] Attending Physician: Admtr, Ar8 Allergies, Adverse [...] toxoids (Td) 08/03/05 Given 1Result Comment: [12/07/2017] [id number] 2Result Comment: [12/21/2016] [facility]: 82304-342-02 3Result Comment: [06/10/2015] #3 4Admin Note: per [...] EC Capsule Start Date: 10/04/16 Status: Ordered fludrocortisone 0.1 mg oral tablet 1 tablet = 0.1 mg, By Mouth, 2 times a day, take with full glass of water, # 60 Doses, 11 Refills, Maintenance, 05/15/18 9:07:39 EDT, Tablet, new dose Start Date: 05/15/18 Status: Ordered fluticasone 50 mcg/inh nasal spray 1 sprays, Nares, Both, 2 times a day, # 16 Gm, 2 Refills, Maintenance, 03/22/19 10:44:00 EST, [place], [facility], 1 sprays Nares, Both 2 times a day, 158, cm, 03/22/19 10:31:00 EST, Height, 63.7, kg, 03/22/19 10:31:00 EST, Dry... Start Date: 03/22/19 Status: Ordered Freestyle Lite Lancets See Instructions, [...] Tot. Refills 11, Maintenance, DX:J45.909 ASTHMA FAX [id number], 12/21/17 11:58:59 EDT, Compound Start Date: 12/21/17 [...] 02/25/19 16:55:00 EST, Route to Pharmacy Electronically, [facility], 158, cm, 02/14/19 7:55:00 [...] 13:57:11, Compound Start Date: 03/26/15 Status: Ordered predniSONE 20 mg oral tablet See Instructions, 3 tablet per day for 3 days and then 2 tablet By Mouth Daily for 3 days then 1 tablet daily for 3 days, # 18 tablet, 0 Refills, Acute 03/31/19 10:44:00 EST, 03/22/19 10:43:00 EST, Tablet, [facility], 158, cm,... Start Date: 03/22/19 Stop Date: 03/31/19 Status: Ordered ProAir HFA 90 mcg/inh inhalation aerosol with adapter 2, puffs, Inhalation, Every 4 hours, PRN, # 8.5 Gm, Refills 2, Tot. Refills 2, Maintenance, 03/22/19 10:40:00 EST, Aerosol, Route to Pharmacy Electronically, NCPDP_[id number], [facility], 158, cm, 03/22/19 10:31:00 EST, Height... Start Date: 03/22/19 Status: Ordered SEROquel 200 mg oral tablet [...] 05/12/17 8:15:18, Aerosol, Route to Pharmacy Electronically, NCPDP_[id number], [facility]... Start Date: [...] perst 3folowed by mental health;recent hospitalization 4gyn 21205 6testing negative insulinoma 7likley dumping sydrome 8abnormal GTT ;sugar 36 two hours into test 9sees gi 10normal CT brain 11new 125.3 cm,right per ct scan recent;seeing gynecology soon;they will review 13vit d deficiency;correct 109367 15per endocrinology monitor 16correction refer GTT; 2 [...]
--- OUTSIDE RECORDS SUMMARY | 2022-08-17 08:21 | XMS_ITS | Continuity of Care Document ---
Author Name Unknown Organization [facility] Oswaldo Address [address] [place] [address]- Care Team Providers Care Customer Marketing Assistant Name Role Phone Louisa LANDRUM, Taras Fuentes Primary Care Physician Encounter [facility] [place] Date(s): 06/11/19 - 06/21/19 [facility] [address] [place] [address]- [facility] Attending Physician: Admtr, Ar8 Allergies, Adverse [...] toxoids (Td) 08/03/05 Given 1Result Comment: [12/07/2017] [address]-15 2Result Comment: [12/21/2016] [facility]: 82516-795-85 3Result Comment: [06/10/2015] #3 4Admin Note: per pt 5Admin Note: given in clinic Medications Dexilant 60 mg oral delayed release capsule 1 capsule = 60 mg, By Mouth, 2 times a day, # 60 capsule, 5 Refills, Maintenance, 12/31/18 11:53:09EDT Start Date: 12/31/18 Status: Ordered Doxycycline Maintenance, 05/31/19 8:07:00 EDT Start Date: 05/31/19 Status: Ordered famotidine 20 mg oral tablet 20 mg, 1, tablet, By Mouth, Daily at bedtime, # 30 tablet, Refills 5, Tot. Refills 5, Maintenance, 05/17/19 12:02:00 EDT, Route to Pharmacy Electronically, [facility], 160, cm, 05/16/19 10:27:00 EDT, Height, [...] 02/25/19 16:55:00 EST, Route to Pharmacy Electronically, [facility], 158, cm, 02/14/19 7:55:00 EST, Height, 61.9, kg, 02/12/19 10:17:00... Start Date: 02/25/19 Status: Ordered ProAir HFA 90 mcg/inh inhalation aerosol with adapter 2, puffs, Inhalation, Every 4 hours, PRN, # 8.5 Gm, Refills 2, Tot. Refills 2, Maintenance, 04/29/19 11:32:00 EST, Aerosol, Route to Pharmacy Electronically, NCPDP_[id number], [facility], 160, cm, 04/29/19 10:47:00 EST, Height... Start Date: 04/29/19 Status: Ordered rizatriptan 10 mg oral tablet 1 tablet = 10 mg, By Mouth, Daily, PRN for migraine headache, # 9 tablet, 5 Refills, Soft Stop, 06/04/19 15:37:00 EDT, Tablet, [facility], sumatriptan ineffective. If insurance says no to rizatriptan, let me know which they will... Start Date: 06/04/19 Stop Date: 12/01/19 Status: Ordered SEROquel 200 mg oral tablet 200 mg, 1, tablet, By Mouth, Daily at bedtime, Refills 0, Maintenance, 05/24/18 15:34:19 EDT Start Date: 05/24/18 Status: Ordered Trintellix 10 mg oral tablet 1 tablet = 10 mg, By Mouth, Daily, 0 Refills, Maintenance, 05/12/19 9:31:00 EDT Start Date: 05/12/19 Status: Ordered Zonegran 25 mg oral capsule 3 capsule = 75 mg, By Mouth, 2 times a day, after weaning off topamax start this medication, # 180 capsule, 5 Refills, Maintenance, 05/30/19 11:48:00 EDT, Capsule, [facility], 160, cm, 05/29/19 13:36:00 EDT, Height, 56.5, kg, 05/05... Start Date: 05/30/19 Stop Date: 11/26/19 Status: Ordered Problem List Condition Effective Dates [...] perst 3folowed by mental health;recent hospitalization 4gyn [address]11 6testing negative insulinoma 7likley dumping sydrome 8abnormal GTT ;sugar 36 two hours into test 9sees gi 10normal CT brain 11new 125.3 cm,right per ct scan recent;seeing gynecology soon;they will review 13vit d deficiency;correct [id number] 15per endocrinology monitor 16correction refer GTT; 2 [...]
--- OUTSIDE RECORDS SUMMARY | 2022-08-17 08:21 | XMS_ITS | Continuity of Care Document ---
Author Name Unknown Organization [facility] Address [address] [place] [address]- Care Team Providers Care Real Estate Accountant Name Role Phone Eran Sue JOHNSON Primary Care Physician [place] [facility] [place]22 [facility] [address] [place] [address]- [place] Allergies, Adverse Reactions, Alerts Substance Reaction Severity Status Dust Allergy to pollen Active Pollen seasonal allergies respiratory symptoms Active Incruse Ellipta 1 lightheaded and migraine Active 1dizzy Immunizations Given and Recorded Vaccine Date Status Refusal Reason [id number] 12y+ bivalent booster vax 1 12/24/21 Given [...] vaccine, inactivated 02/08/11 Give n SARS-CoV-2 mRNA ([id number]-[id number]) vax 05/01/21 Recorded zoster vaccine, inactivated 11/03/20 [...] tetanus-diphtheria toxoids (Td) 08/03/05 Given 1Result Comment: [id number] 2Result Comment: [id number] 3Result Comment: [12/07/2017] [id number] 4Result Comment: [12/21/2016] [facility]: [id number] 5Result Comment: [06/10/2015] #3 6Admin Note: per pt 7Admin Note: given in clinic Medications acetaminophen 500 mg oral tablet 2 tablet = 1,000 mg, By Mouth, Every 6 hours, PRN as needed for fever, # 200 tablet, 0 Refills, Maintenance, 12/03/21 10:17:00 EDT, Tablet, [facility], Partial fill upon patient request if the prescription is for a schedule II opi... Start Date: 12/03/21 Status: Ordered Albuterol (Eqv-ProAir HFA) 90 mcg/inh inhalation aerosol 2 puffs, Inhalation, Every 4 hours, PRN NEEDED FOR WHEEZING, # 8.5 Gm, 5 Refills, Maintenance, 03/09/22 11:21:00 EST, [facility], 17, INHALE TWO PUFFS [...] 6 Refills, Maintenance, 11/03/21 8:23:00 EDT, Tablet, [facility], 2 tablet By Mouth 2 times a day, 158, cm, 11/03/21 8:01:00 EDT,Height, 71.5, kg, 09/01/21 16:21:00 EDT, Dry Weight Start Date: 11/03/21 Status: Ordered Carafate 1 gm/10 ml oral suspension 10 mL = 1 Gm, By Mouth, 3 times a day before meals and bedtime, # 1,200 mL, 5 Refills, Maintenance,04/29/22 9:16:00 EST, [id number], Partial fill upon patient request if the prescription is for a schedule II opioid drug., 158, cm, 02... Start Date: 04/29/22 Status: Ordered cetirizine 10 mg oral tablet 1 tablet, By Mouth, Daily, # 30 tablet, 5 Refills, Maintenance, 06/03/22 11:40:00 EDT, [facility], 158, cm, 05/25/22 13:59:00 [...] Refills, Maintenance, 05/30/22 7:57:00 EDT, CR Capsule, [facility], Partial fill upon patient request if the prescription is for a schedule II opioid... Start Date: 05/30/22 Status: Ordered Emgality Prefilled Pen 120 mg/mL subcutaneous solution = 120 mg, Subcutaneous Injection, Once, Maintenance Dose, # 3 kit, 2 Refills, Soft Stop, 03/17/22 8:08:00 EST, [facility], requesting 3 month supply for cheaper martinez. with 2 refills, 163, albertina, 03/15/22 10:13:00 EST, Height, 68.1,... Start Date: 03/17/22 Status: Ordered EPINEPHrine 1 mg/mL injectable solution 0.3 mL = 0.3 mg, Intramuscular, Once, # 1 mL, 1 Refills, Soft Stop, 03/08/21 15:07:00 EST, Solution, [facility], Partial fill upon patient request if the prescription is for a schedule II opioid drug., 158, cm, 03/08/21 12:18:00 E... Start Date: 03/08/21 Status: Ordered famotidine 40 mg oral tablet 1 tablet = 40 mg, By Mouth, 2 times a day, # 60 tablet, 6 Refills, Maintenance, 01/31/22 14:05:00 EST, Suspension, [facility], Partial fill upon patient request if the prescription is for a schedule II opioid drug., 163, cm, 01/18... Start Date: 01/31/22 Stop Date: 08/29/22 Status: Ordered Fiber Choice 1.5 g oral tablet, chewable 1 tablet = 1.5 Gm, Chew, 3 times a day, # 90 tablet, 0 Refills, Maintenance, 04/09/22 15:16:00 EST,Chew Tablet, [id number], Partial fill upon patient request if the [...] Refills, Maintenance, 04/09/22 15:16:00 EST, REC Powder, [facility] #[id number], Partial fill upon patient request if the prescription is for a schedule II opioid drug., 17 Gm... Start Date: 04/09/22 Status: Ordered montelukast 10 mg oral tablet 1, tablet, By Mouth, Daily in PM, # 90 tablet, Refills 1, Tot. Refills 1, Maintenance, 11/14/21 11:28:00 EDT, Route to Pharmacy Electronically, [facility], 158, cm, 11/03/21 8:01:00 EDT, Height, 71.5, kg, 09/01/21 16:21:00 EDT, . Start Date: 11/14/21 Status: Ordered Nurtec ODT 75 mg oral tablet, disintegrating See Instructions, TAKE ONE TABLET DAILY NEEDED FOR migraines, DO NOT EXCEED ONE TABLET IN 24 HOURS, # 8 tablet, 6 Refills, Maintenance, 12/28/21 15:14:00 EDT, [facility], 163,cm, 12/24/21 8:20:00 [...] each, 0 Refills, Maintenance, 04/06/22 15:29:00 EST, [facility] #[id number], Partial fi... Start Date: 04/06/22 Status: Ordered Reclast = 5 mg, IV Infusion, Once, 0 Refills, Maintenance, 11/06/20 10:24:00 EDT, administered at [facility] 10/2020 Start Date: 11/06/20 Status: Ordered Stool Softener + Stimulant Laxative 50 mg-8.6 mg oral capsule 1 capsule, By Mouth, Daily in PM, # 60 capsule, 0 Refills, Maintenance, 04/09/22 15:17:00 EST, Capsule, [facility] #[id number], Partial fill upon patient request if the prescription is for a schedule II opioid drug., 1 capsule By Mouth Daily in P... Start Date: 04/09/22 Status: Ordered Symbicort 160mcg/4.5mcg Inhaler 2, puffs, Inhalation, 2 times a day, rinse mouth and throat after use, # 10.2 Gm, Refills 2, Tot. Refills 2, Maintenance, 06/10/22 20:48:00 EDT, Route to Pharmacy Electronically, NCPDP_[id number], [facility], 158, cm, 06/07/22 10:... [...] Active Vitamin D deficiency Confirmed Active 1gyn 20835 3testing negative insulinoma 4likley dumping sydrome 5abnormal GTT ;sugar 36 two hours into test 6normal CT brain 7new 8resolved after weight loss 9chronic perst 105.3 cm,right per ct scan recent;seeing gynecology soon;they will review 11vit d deficiency;correct [id number] 13per endocrinology monitor 14correction refer GTT; 2 [...] Care Nurse Name: Sue Barillas NP Position: [facility] PCO Associate Professional Member Role: PCP Address: Address: [address] [place], [place] [address] Name: Andria Guadalupe RN Position: [facility] SN RN Member Role: Primary Care Nurse Name: Liz Martin RN Position: [facility] RN Member Role: Primary Care Nurse Name: Ambreen Mcmahon RN Position: [facility] RN Member Role: Primary Care Nurse Name: Irais Grijalva RN Position: [facility] RN Member Role: Primary Care Nurse Name: Autumn Martinez RN Position: [facility] SN RN Member Role: Primary Care Nurse Name: Liz English RN Position: [facility] RN Member Role: Primary Care Nurse Name: Dora Williamson RN Position: [facility] RN Member Role: Primary Care Nurse Care Team Related Persons Name: KHUSHI CUNNINGHAM Address: home [address] [place] [address] Name: BHUPINDER VENEGAS Address: home [address] [place] [address] Name: FELIPE FLORES Address: home [address] [place] [address] Name: ARNAV FLORES Address: home [address] [place] [address] Name: IRINA FLORES Address: home [address] [place] [address] Name: RUSLAN FLORES Address: home [address] [place] [address] Name: KAISER PLUNKETT Address: home [address] [place] [address]
--- OUTSIDE RECORDS SUMMARY | 2022-08-17 08:21 | XMS_ITS | Continuity of Care Document ---
Author Name Unknown Organization [facility] Address [address] [place] [address]- Care Team Providers Care Bus Driver School Name Role Phone Sue Barillas NP Primary Care Physician [phone] Encounter [facility] [place] Date(s): 04/10/20 - 04/17/20 [facility] [address] [place] [address]- Encounter Diagnosis Ankle sprain(Discharge Diagnosis) - 04/09/20 Attending Physician: Not on Staff, Attending MD Referring Physician: Sue Barillas NP Allergies, Adverse Reactions, Alerts Substance Reaction Severity [...] toxoids (Td) 08/03/05 Given 1Result Comment: [12/07/2017] [id number] 2Result Comment: [12/21/2016] [facility]: [id number] 3Result Comment: [06/10/2015] #3 4Admin Note: per [...] 0 Refills, Maintenance, 07/03/19 13:59:00 EDT, Solution, [facility], 160, cm, 05/29/19 13:36:00 EDT, Height, 56.5, kg, 03... Start Date: 07/03/19 Status: Ordered amitriptyline 25 mg oral tablet 25 mg, 1, tablet, By Mouth, Daily at bedtime, # 30 tablet, Refills 5, Tot. Refills 5, Maintenance, 03/18/20 10:49:00 EST, Route to Pharmacy Electronically, [facility], 160.02, cm, 03/18/20 7:48:00 EST, [...] 60 capsule, 5 Refills, Maintenance, 12/26/19 12:06:00EDT, [facility], 160.02, cm, 12/02/19 6:45:00 EDT, [...] 1 Refills, Soft Stop, 11/20/19 11:59:00 EDT, [facility], 160.02, cm, 11/15/19 10:05:00 EDT, [...] 02/25/19 16:55:00 EST, Route to Pharmacy Electronically, [facility], 158, cm, 02/14/19 7:55:00 EST, Height, 61.9, kg, 02/12/19 10:17:00... Start Date: 02/25/19 Status: Ordered montelukast 10 mg oral tablet 10 mg, 1, tablet, By Mouth, Daily in PM, # 90 tablet, Refills 3, Tot. Refills 3, Maintenance, 08/15/19 16:21:00 EDT, Route to Pharmacy Electronically, [facility], 160, cm, 08/15/19 13:45:00 EDT, Height, 56.5, kg, 05/29/19 13:36:00... Start Date: 08/15/19 Status: Ordered ondansetron 4 mg oral tablet, disintegrating 1 tablet = 4 mg, By Mouth, Every 8 hours, PRN as needed for nausea/vomiting, # 9 tablet, 0 Refills,Maintenance, 10/06/19 21:07:00 EDT, DIS Tablet, [facility] Start Date: 10/06/19 Stop Date: 10/09/19 Status: Ordered ProAir HFA 90 mcg/inh inhalation aerosol with adapter 2, puffs, Inhalation, Every 4 hours, PRN, # 8.5 Gm, Refills 2, Tot. Refills 2, Maintenance, 04/29/19 11:32:00 EST, Aerosol, Route to Pharmacy Electronically, NCPDP_[id number], [facility], 160, cm, 04/29/19 10:47:00 EST, Height... Start Date: 04/29/19 Status: Ordered Symbicort 160mcg/4.5mcg Inhaler 2, puffs, Inhalation, 2 times a day, use with spacer chamber, # 1 each, Refills 11, Tot. Refills 11, Maintenance, 07/08/19 13:36:00 EDT, Route to Pharmacy Electronically, NCPDP_[id number], [facility], 160, cm, 07/08/19 13:03:00 ED... Start Date: 07/08/19 Status: Ordered Topamax 50 mg oral tablet See Instructions, take 1 tab in am and 2 tab at bedtime. If AM dose causes bad sedation, add to HS dose., # 90 tablet, 6 Refills, Maintenance, 03/12/20 11:09:00 EST, Tablet, [facility], weaning zonegran off by 25mg [...] 6 Refills, Soft Stop, 03/12/20 11:04:00 EST, [facility], Partial fill upon patient request if the prescription is for a schedule II opioid drug., 160.02, cm, 03/10/20 8:18:00 EST, H... Start Date: 03/12/20 Stop Date: 10/08/20 Status: Ordered Zofran 4 mg oral tablet 1 tablet = 4 mg, By Mouth, Every 8 hours, PRN Nausea & Vomiting, # 30 tablet, 0 Refills, Maintenance, 09/30/19 11:23:00 EDT, [facility], 160.02, cm, 09/24/19 15:31:00 EDT, [...] of shoulder(Confirmed) 18 Active Fatty liver(Confirmed) 19, , 10/09/16 Active Vitamin D deficiency(Confirmed) Active 1resolved after weight loss 2chronic perst 3folowed by mental health;recent hospitalization 4gyn 62337 6testing negative insulinoma 7likley dumping sydrome 8abnormal GTT ;sugar 36 two hours into test 9sees gi 10normal CT brain 11new 125.3 cm,right per ct scan recent;seeing gynecology soon;they will review 13vit d deficiency;correct 403821 15per endocrinology monitor 16correction refer GTT; 2 hour glucose 36 17refer GGT 18seeing ortho;pre op 19asma,ama neg/cerulopalsmain wnl,AAT wnl 20Negative hep A antibody positive hep B surface antibody negative antigen negative hep C, normal ferritin 21ukltrasound Diagnosis Diagnosis Type Effective Dates Health Status Cl inical Service Informant Ankle sprain Discharge Diagnosis 04/09/20 Vital Signs Most recent to oldest [Reference Range]: 1 Height 160.02 cm (04/10/20 7:07 AM) Social History Social History Type Response Smoking Status Never smoker entered on: 02/20/13 Sex
--- OUTSIDE RECORDS SUMMARY | 2022-08-17 08:21 | XMS_ITS | Continuity of Care Document ---
Author Name Unknown Organization [facility] Address [address] [place] [address]- Care Team Providers Care Rooming House Inspector Name Role Phone Louisa LANDRUM, Taras Fuentes Primary Care Physician Encounter [facility] Date(s): 06/12/20 - 07/12/20 [facility] [address] [place] [id number] Allergies, Adverse Reactions, Alerts Substance Reaction Severity [...] toxoids (Td) 08/03/05 Given 1Result Comment: [12/07/2017] [id number] 2Result Comment: [12/21/2016] [facility]: [id number] 3Result Comment: [06/10/2015] #3 4Admin Note: per pt 5Admin Note: given in clinic Medications acarbose 25 mg oral tablet 1 tablet = 25 mg, By Mouth, 3 times a day, # 90 tablet, 0 Refills, Maintenance, 07/06/20 7:34:00 EDT, Tablet Start Date: 07/06/20 Status: Ordered Aerochamber See Instructions, # 1 [...] 60 capsule, 5 Refills, Maintenance, 05/07/20 15:54:00EST, [facility], 160.02, cm, 05/01/20 9:18:00 EST, [...] 11:32:00 EST, Aerosol, Route to Pharmacy Electronically, NCPDP_[id number], [facility], 160, cm, 04/29/19 10:47:00 EST, Height... Start Date: 04/29/19 Status: Ordered Topamax 50 mg oral tablet See Instructions, take 1 tab in am and 2 tab at bedtime. If AM dose causes bad sedation, add to HS dose., # 90 tablet, 6 Refills, Maintenance, 03/12/20 11:09:00 EST, Tablet, [facility], weaning zonegran [...] 6 Refills, Soft Stop, 03/12/20 11:04:00 EST, [facility], Partial fill upon patient [...] 0 Refills, Maintenance, 06/13/20 14:10:00 EDT, Capsule, [facility],... Start Date: 06/13/20 Status: Ordered [...] 2018 sx 2018(Confirmed) Active Adnexal mass(Confirmed) Active Migraines(Confirmed) [...] 1resolved after weight loss 2chronic perst 3gyn 49005 5testing negative insulinoma 6likley dumping sydrome 7abnormal GTT ;sugar 36 two hours into test 8sees gi 9normal CT brain 10new 115.3 cm,right per ct scan recent;seeing gynecology soon;they will review 12vit d deficiency;correct 907319 14per endocrinology monitor 15correction refer GTT; 2 hour glucose 36 16refer GGT 17seeing ortho;pre op 18asma,ama neg/cerulopalsmain wnl,AAT wnl 19Negative hep A antibody positive hep B surface antibody negative antigen negative hep C, normal ferritin 20ukltrasound Social History Social History Type Response Smoking Status Never smoker entered on: 02/20/13 Sex
--- OUTSIDE RECORDS SUMMARY | 2022-08-17 08:21 | XMS_ITS | Continuity of Care Document ---
Author Name Unknown Organization [facility] Address [address] [place] [address]- Care Team Providers Care Primer Waterproofing Machine Adjuster Name Role Phone Louisa LANDRUM, Taras Fuentes Primary Care Physician En[place] [facility] [place] Date(s): 04/23/20 - 05/23/20 [facility] [address] [place] [id number] Allergies, Adverse [...] toxoids (Td) 08/03/05 Given 1Result Comment: [12/07/2017] [id number] 2Result Comment: [12/21/2016] [facility]: 64671-986-25 3Result Comment: [06/10/2015] #3 4Admin Note: per [...] 0 Refills, Maintenance, 07/03/19 13:59:00 EDT, Solution, [facility], 160, cm, 05/29/19 13:36:00 EDT, Height, [...] 60 capsule, 5 Refills, Maintenance, 05/07/20 15:54:00EST, [facility], 160.02, cm, 05/01/20 9:18:00 EST, Height, [...] 02/25/19 16:55:00 EST, Route to Pharmacy Electronically, [facility], 158, cm, 02/14/19 7:55:00 [...] 11:32:00 EST, Aerosol, Route to Pharmacy Electronically, NCPDP_[id number], [facility], 160, cm, 04/29/19 10:47:00 EST, Height... Start Date: 04/29/19 Status: Ordered Topamax 50 mg oral tablet See Instructions, take 1 tab in am and 2 tab at bedtime. If AM dose causes bad sedation, add to HS dose., # 90 tablet, 6 Refills, Maintenance, 03/12/20 11:09:00 EST, Tablet, [facility], weaning zonegran off by 25mg every 2 days t... Start Date: 03/12/20 Status: Ordered ubrogepant 100 mg oral tablet 1 tablet = 100 mg, By Mouth, Daily, # 10 tablet, 6 Refills, Soft Stop, 03/12/20 11:04:00 EST, [facility], Partial fill upon [...] perst 3folowed by mental health;recent hospitalization 4gyn 12259 6testing negative insulinoma 7likley dumping sydrome 8abnormal GTT ;sugar 36 two hours into test 9sees gi 10normal CT brain 11new 125.3 cm,right per ct scan recent;seeing gynecology soon;they will review 13vit d deficiency;correct 096911 15per endocrinology monitor 16correction refer GTT; 2 hour glucose 36 17refer GGT 18seeing ortho;pre op 19asma,ama neg/cerulopalsmain wnl,AAT wnl 20Negative hep A antibody positive hep B surface antibody negative antigen negative hep C, normal ferritin 21ukltrasound Social History Social History Type Response Smoking Status Never smoker entered on: 02/20/13 Sex
--- OUTSIDE RECORDS SUMMARY | 2022-08-17 08:21 | XMS_ITS | Continuity of Care Document ---
Author Name Unknown Organization [facility] Address [address] [place] [address]- Care Team Providers Care Steel Placer Name Role Phone Louisa LANDRUM, Taras Fuentes Primary Care Physician Encounter [facility] Date(s): 12/14/19 - 01/13/20 [facility] [address] [place] [address]- Allergies, Adverse Reactions, Alerts Substance Reaction Severity [...] toxoids (Td) 08/03/05 Given 1Result Comment: [12/07/2017] [id number] 2Result Comment: [12/21/2016] [facility]: [id number] 3Result Comment: [06/10/2015] #3 4Admin Note: per [...] 0 Refills, Maintenance, 07/03/19 13:59:00 EDT, Solution, [facility], 160, cm, 05/29/19 13:36:00 EDT, Height, 56.5, kg, 03... Start Date: 07/03/19 Status: Ordered albuterol CFC free 90 mcg/inh inhalation aerosol 2, puffs, Inhalation, 4 times a day, PRN, # 25 Gm, Refills 0, Tot. Refills 0, Maintenance, 07/07/2012:36:00 EDT, Aerosol, Route to Pharmacy Electronically, NCPDP_[id number], [facility], 160, cm, 07/08/19 13:03:00 EDT, Height, 56.... Start Date: 07/08/19 Status: Ordered amitriptyline 25 mg oral tablet 25 mg, 1, tablet, By Mouth, Daily at bedtime, # 30 tablet, Refills 5, Tot. Refills 5, Maintenance, 12/30/19 11:47:00 EDT, Route to Pharmacy Electronically, [facility], 160.02, cm, 12/02/19 6:45:00 EDT, Height, 67, kg, 09/11/19 11:... Start Date: 12/30/19 Status: Ordered Augmentin 875 mg-125 mg oral tablet 1 tablet, By Mouth, Every 12 hours, for 7 days, # 14 tablet, 0 Refills, Acute 01/16/20 10:04:00 EST, 01/09/20 10:04:00 EST, Tablet, [facility], 160.02, cm, 12/02/19 6:45:00 EDT, Height, 67, kg, 09/11/19 11:20:00 EDT, Dry Weight Start Date: 01/09/20 Stop Date: 01/16/20 Status: Ordered buPROPion 300 mg/24 hours (XL) [...] 60 capsule, 5 Refills, Maintenance, 12/26/19 12:06:00EDT, [facility], 160.02, cm, 12/02/19 6:45:00 EDT, Height, 67, kg, 09/11/19 11:20:00 EDT, Dry Weight Start Date: 12/26/19 Status: Ordered eletriptan 40 mg oral tablet 1 tablet = 40 mg, By Mouth, Daily, PRN for migraine headache, # 9 tablet, 5 Refills, Soft Stop, 07/16/19 9:23:00 EDT, Tablet, [facility], she has [...] 1 Refills, Soft Stop, 11/20/19 11:59:00 EDT, [facility], 160.02, cm, 11/15/19 [...] 02/25/19 16:55:00 EST, Route to Pharmacy Electronically, [facility], 158, cm, 02/14/19 7:55:00 EST, Height, 61.9, kg, 02/12/19 10:17:00... Start Date: 02/25/19 Status: Ordered montelukast 10 mg oral tablet 10 mg, 1, tablet, By Mouth, Daily in PM, # 90 tablet, Refills 3, Tot. Refills 3, Maintenance, 08/15/19 16:21:00 EDT, Route to Pharmacy Electronically, [facility], 160, cm, 08/15/19 13:45:00 EDT, Height, 56.5, kg, 05/29/19 13:36:00... Start Date: 08/15/19 Status: Ordered NuLYTELY with Flavor Packs oral powder for reconstitution 240 mL, By Mouth, Every 10 minutes, # 4,000 mL, 0 Refills, Maintenance, 11/15/19 10:29:00 EDT, REC Powder, [facility], 240 mL By Mouth Every 10 minutes, 160.02, cm, 11/15/19 10:05:00 EDT, Height, 67, kg, 09/11/19 11:20:00 EDT, Dry... Start Date: 11/15/19 Status: Ordered ondansetron 4 mg oral tablet, disintegrating 1 tablet = 4 mg, By Mouth, Every 8 hours, PRN as needed for nausea/vomiting, # 9 tablet, 0 Refills,Maintenance, 10/06/19 21:07:00 EDT, DIS Tablet, [facility] Start Date: 10/06/19 Stop Date: 10/09/19 Status: Ordered ProAir HFA 90 mcg/inh inhalation aerosol with adapter 2, puffs, Inhalation, Every 4 hours, PRN, # 8.5 Gm, Refills 2, Tot. Refills 2, Maintenance, 04/29/19 11:32:00 EST, Aerosol, Route to Pharmacy Electronically, NCPDP_[id number], [facility], [...] 07/08/19 13:36:00 EDT, Route to Pharmacy Electronically, NCPDP_[id number], [facility], 160, cm, 07/08/19 13:03:00 ED... Start Date: 07/08/19 Status: Ordered Topamax 50 mg oral tablet 2 tablet = 100 mg, By Mouth, Daily at bedtime, # 60 tablet, 6 Refills, Maintenance, 11/04/19 11:08:00 EDT, Tablet, [facility], weaning zonegran off [...] Refills, Soft Stop, 11/25/19 21:26:00 EDT, Tablet, [facility], 160.02, cm, 11/15/19 10:05:00 EDT, Height,... Start Date: 11/25/19 Status: Ordered Zofran 4 mg oral tablet 1 tablet = 4 mg, By Mouth, Every 8 hours, PRN Nausea & Vomiting, # 30 tablet, 0 Refills, Maintenance, 09/30/19 11:23:00 EDT, [facility], 160.02, cm, [...] perst 3folowed by mental health;recent hospitalization 4gyn 20048 6testing negative insulinoma 7likley dumping sydrome 8abnormal GTT ;sugar 36 two hours into test 9sees gi 10normal CT brain 11new 125.3 cm,right per ct scan recent;seeing gynecology soon;they will review 13vit d deficiency;correct 647806 15per endocrinology monitor 16correction refer GTT; 2 hour glucose 36 17refer GGT 18seeing ortho;pre op 19asma,ama neg/cerulopalsmain wnl,AAT wnl 20Negative hep A antibody positive hep B surface antibody negative antigen negative hep C, normal ferritin 21ukltrasound Social History Social History Type Response Smoking Status Never smoker entered on: 02/20/13 Sex
--- OUTSIDE RECORDS SUMMARY | 2022-08-17 08:21 | XMS_ITS | Continuity of Care Document ---
Author Name Unknown Organization [facility] [place] Address [address] [place] [address]- Care Team Providers Care Bottom Turning Lathe Turner Name Role Phone Eran DIRECTORY OPERATOR, Sue Dahl Primary Care Physician Encounter [facility] Date(s): 08/09/21 - 09/08/21 [facility] [address] [address]- Allergies, Adverse Reactions, Alerts Substance Reaction Severity Status Dust Allergy to pollen Active Pollen seasonal allergies respiratory symptoms Active Incruse Ellipta 1 lightheaded and migraine Active 1dizzy Immunizations Given and Recorded Vaccine Date Status Refusal Reason SARS-CoV-2 mRNA ([id number]) vax 05/01/21 Recorded influenza virus vaccine, inactivated [...] vaccine 08/11/14 Given hepatitis B adult vaccine 5/6/15 Given pneumococcal 23-valent vaccine 08/19/13 Given tetanus/diphtheria/pertussis, acel(Tdap) 11/28/11 Given FluLaval (oldterm) 11/28/11 Given Influenza Virus Vaccine (oldterm) 4 03/24/09 Given Influenza Virus Vaccine (oldterm) 01/04/07 Given Influenza Inactive (IM) (oldterm) 5 12/25/07 Given tetanus-diphtheria toxoids (Td) 08/03/05 Given 1Result Comment: [12/07/2017] [id number] 2Result Comment: [12/21/2016] [facility]: 14007-748-69 3Result Comment: [06/10/2015] #3 4Admin Note: per pt 5Admin Note: given in clinic Medications acarbose 25 mg oral tablet 1 tablet = 25 mg, By Mouth, 3 times a day, Take 1 tab (plus 1 50mg tab), 3 times daily with meals.,# 270 tablet, 3 Refills, Maintenance, 02/03/21 8:34:00 EST, Tablet, [facility], Partial fill upon patient request if the prescript... Start Date: 02/03/21 Status: Ordered acarbose 50 mg oral tablet 1 tablet = 50 mg, By Mouth, 3 times a day, Take 1 tab (plus 1 25mg tab), 3 times daily with meals.,# 270 tablet, 3 Refills, Maintenance, 02/03/21 8:34:00 EST, Tablet, [facility], Partial fill upon [...] constipation, 08/23/21 8:22:00 EDT, Route to Pharmacy Electronically,[facility], Partial fill upon patient... Start Date: 08/23/21 Status: Ordered Dexilant 60 mg oral delayed release capsule 1 capsule = 60 mg, By Mouth, 2 times a day, 30 min before meal, # 60 capsule, 5 Refills, Maintenance, 04/16/21 14:29:00 EST, CR Capsule, [facility], Partial fill upon patient request if the prescription is for a schedule II opioi... Start Date: 04/16/21 Status: Ordered Emgality Prefilled Pen 120 mg/mL subcutaneous solution = 120 mg, Subcutaneous Injection, Once, Maintenance Dose, # 1 kit, 6 Refills, Soft Stop, 06/29/21 10:09:00 EDT, [facility], Partial fill upon patient request if the prescription is for a schedule II opioid drug., 158, cm, 06/29/21... Start Date: 06/29/21 Status: Ordered EPINEPHrine 1 mg/mL injectable solution 0.3 mL = 0.3 mg, Intramuscular, Once, # 1 mL, 1 Refills, Soft Stop, 03/08/21 15:07:00 EST, Solution, [facility], Partial fill upon [...] 05/24/21 11:12:00 EDT, Route to Pharmacy Electronically, [facility], 158, cm, 05/14/21 7:52:00 EST, Height, 80.6, kg, 03/08/21 12:18:00 EST, D... Start Date: 05/24/21 Status: Ordered meclizine 25 mg oral tablet See Instructions, PRN for dizziness, Take 1 tablet every 8 hours as needed for dizziness, # 15 tablet, 0 Refills, Maintenance, 11/03/20 7:49:00 EDT, Tablet, [facility], Partial fill upon patient request if the prescription is for... Start Date: 11/03/20 Status: Ordered montelukast 10 mg oral tablet 10 mg, 1, tablet, By Mouth, Daily in PM, # 90 tablet, Refills 1, Tot. Refills 1, Maintenance, 04/23/21 12:32:00 EST, Route to Pharmacy Electronically, [facility], 158, cm, 04/09/21 [...] 6 Refills, Maintenance, 12/10/20 12:36:00 EDT,DIS Tablet, [facility], has t... Start Date: 12/10/20 Stop Date: 07/08/21 Status: Ordered Readi-Cat 2 oral suspension See Instructions, Dispense : 2 Bottles 450 ml each Dx: Hernia, # 900 mL, 0 Refills, Maintenance, 09/07/21 15:24:00 EDT, [facility]/pharmacy #[id number], Partial fill upon patient request if the prescription is for a schedule II opioid drug., Dispense : 2 Bottles... Start Date: 09/07/21 Status: Ordered Reclast = 5 mg, IV [...] 1resolved after weight loss 2chronic perst 3gyn 060[address] 5testing negative insulinoma 6likley dumping sydrome 7abnormal GTT ;sugar 36 two hours into test 8sees gi 9normal CT brain 10new 115.3 cm,right per ct scan recent;seeing gynecology soon;they will review 12vit d deficiency;correct [id number] 14per endocrinology monitor 15correction refer GTT; 2 hour glucose 36 16refer GGT 17seeing ortho;pre op 18asma,ama neg/cerulopalsmain wnl,AAT wnl 19Negative hep A antibody positive hep B surface antibody negative antigen negative hep C, normal ferritin 20ukltrasound Social History Social History Type Response Smoking Status Never smoker entered on: 02/20/13 Sex
--- OUTSIDE RECORDS SUMMARY | 2022-08-17 08:21 | XMS_ITS | Continuity of Care Document ---
Author Name Unknown Organization [facility] Address [address] [place] [address]- Care Team Providers Care Data Operations Director Name Role Phone Louisa LANDRUM, Taras Fuentes Primary Care Physician Encounter [facility] Date(s): 07/01/20 - 07/31/20 [facility] [address] [place] [address]- Allergies, Adverse Reactions, Alerts Substance Reaction Severity [...] toxoids (Td) 08/03/05 Given 1Result Comment: [12/07/2017] [id number] 2Result Comment: [12/21/2016] [facility]: [id number] 3Result Comment: [06/10/2015] #3 4Admin Note: per pt 5Admin Note: given in clinic Medications acarbose 25 mg oral tablet 1 tablet = 25 mg, By Mouth, 3 times a day, Take 1 tablet 3 times daily with meals. Add to 50mg dosefor total of 75mg 3 times daily. E11.65, # 270 tablet, 3 Refills, Maintenance, 07/15/20 12:23:00 EDT, Tablet, [facility], Partial... Start Date: 07/15/20 Status: Ordered acarbose 50 mg oral tablet 1 tablet = 50 mg, By Mouth, 3 times a day, Take 3 times daily with meals. E11.65, # 90 tablet, 5 Refills, Maintenance, 07/13/20 16:29:00 EDT, Tablet, [facility], Partial fill upon patient [...] 0 Refills, Maintenance, 07/03/19 13:59:00 EDT, Solution, [facility], 160, cm, 05/29/19 13:36:00 [...] 30 tablet, 5 Refills, Maintenance, 07/22/20 8:03:00EDT, [facility], Partial fill upon patient [...] 60 capsule, 5 Refills, Maintenance, 05/07/20 15:54:00EST, [facility], 160.02, cm, 05/01/20 9:18:00 EST, [...] 1 Refills, Soft Stop, 11/20/19 11:59:00 EDT, [facility], 160.02, cm, 11/15/19 10:05:00 [...] 02/25/19 16:55:00 EST, Route to Pharmacy Electronically, [facility], 158, cm, 02/14/19 7:55:00 EST, Height, 61.9, kg, 02/12/19 10:17:00... Start Date: 02/25/19 Status: Ordered montelukast 10 mg oral tablet 10 mg, 1, tablet, By Mouth, Daily in PM, # 90 tablet, Refills 3, Tot. Refills 3, Maintenance, 08/15/19 16:21:00 EDT, Route to Pharmacy Electronically, [facility], 160, cm, 08/15/19 13:45:00 EDT, Height, 56.5, kg, 05/29/19 13:36:00... Start Date: 08/15/19 Status: Ordered ProAir HFA 90 mcg/inh inhalation aerosol with adapter 2, puffs, Inhalation, Every 4 hours, PRN, # 8.5 Gm, Refills 2, Tot. Refills 2, Maintenance, 04/29/19 11:32:00 EST, Aerosol, Route to Pharmacy Electronically, NCPDP_[id number], [facility], 160, cm, 04/29/19 10:47:00 EST, Height... Start Date: 04/29/19 Status: Ordered rifAXIMin 550 mg oral tablet 1 tablet = 550 mg, By Mouth, 3 times a day, # 42 tablet, 0 Refills, Maintenance, 07/14/20 13:37:00 EDT, Tablet, [facility], Partial fill upon patient [...] 6 Refills, Maintenance, 03/12/20 11:09:00 EST, Tablet, [facility], weaning zonegran off by 25mg [...] 6 Refills, Soft Stop, 03/12/20 11:04:00 EST, [facility], Partial fill upon patient [...] 0 Refills, Maintenance, 06/13/20 14:10:00 EDT, Capsule, [facility],... Start Date: 06/13/20 Status: Ordered [...] 1resolved after weight loss 2chronic perst 3gyn 11482 5testing negative insulinoma 6likley dumping sydrome 7abnormal GTT ;sugar 36 two hours into test 8sees gi 9normal CT brain 10new 115.3 cm,right per ct scan recent;seeing gynecology soon;they will review 12vit d deficiency;correct [id number] 14per endocrinology monitor 15correction refer GTT; 2 hour glucose 36 16refer GGT 17seeing ortho;pre op 18asma,ama neg/cerulopalsmain wnl,AAT wnl 19Negative hep A antibody positive hep B surface antibody negative antigen negative hep C, normal ferritin 20ukltrasound Social History Social History Type Response Smoking Status Never smoker entered on: 02/20/13 Sex
--- OUTSIDE RECORDS SUMMARY | 2022-08-17 08:21 | XMS_ITS | Continuity of Care Document ---
Author Name Unknown Organization [facility] Address [address] [place] [address]- Care Team Providers Care Supervisor Hand Workers Name Role Phone Louisa LANDRUM, Taras Fuentes Primary Care Physician [phone] Encounter [facility] Date(s): 06/18/20 - 07/18/20 [facility] [address] [place] [address] Allergies, Adverse Reactions, Alerts Substance [...] toxoids (Td) 08/03/05 Given 1Result Comment: [12/07/2017] [id number] 2Result Comment: [12/21/2016] [facility]: [id number] 3Result Comment: [06/10/2015] #3 4Admin Note: per pt 5Admin Note: given in clinic Medications acarbose 25 mg oral tablet 1 tablet = 25 mg, By Mouth, 3 times a day, Take 1 tablet 3 times daily with meals. Add to 50mg dosefor total of 75mg 3 times daily. E11.65, # 270 tablet, 3 Refills, Maintenance, 07/15/20 12:23:00 EDT, Tablet, [facility], Partial... Start Date: 07/15/20 Status: Ordered acarbose 50 mg oral tablet 1 tablet = 50 mg, By Mouth, 3 times a day, Take 3 times daily with meals. E11.65, # 90 tablet, 5 Refills, Maintenance, 07/13/20 16:29:00 EDT, Tablet, [facility], Partial fill upon patient [...] 0 Refills, Maintenance, 07/03/19 13:59:00 EDT, Solution, [facility], 160, cm, 05/29/19 13:36:00 [...] 60 capsule, 5 Refills, Maintenance, 05/07/20 15:54:00EST, [facility], 160.02, cm, 05/01/20 9:18:00 [...] 1 Refills, Soft Stop, 11/20/19 11:59:00 EDT, [facility], 160.02, cm, 11/15/19 10:05:00 [...] 02/25/19 16:55:00 EST, Route to Pharmacy Electronically, [facility], 158, cm, 02/14/19 7:55:00 EST, Height, 61.9, kg, 02/12/19 10:17:00... Start Date: 02/25/19 Status: Ordered montelukast 10 mg oral tablet 10 mg, 1, tablet, By Mouth, Daily in PM, # 90 tablet, Refills 3, Tot. Refills 3, Maintenance, 08/15/19 16:21:00 EDT, Route to Pharmacy Electronically, [facility], 160, cm, 08/15/19 13:45:00 EDT, Height, 56.5, kg, 05/29/19 13:36:00... Start Date: 08/15/19 Status: Ordered ProAir HFA 90 mcg/inh inhalation aerosol with adapter 2, puffs, Inhalation, Every 4 hours, PRN, # 8.5 Gm, Refills 2, Tot. Refills 2, Maintenance, 04/29/19 11:32:00 EST, Aerosol, Route to Pharmacy Electronically, NCPDP_[id number], [facility], 160, cm, 04/29/19 10:47:00 EST, Height... Start Date: 04/29/19 Status: Ordered rifAXIMin 550 mg oral tablet 1 tablet = 550 mg, By Mouth, 3 times a day, # 42 tablet, 0 Refills, Maintenance, 07/14/20 13:37:00 EDT, Tablet, [facility], Partial fill upon patient [...] 6 Refills, Maintenance, 03/12/20 11:09:00 EST, Tablet, [facility], weaning zonegran off by [...] 6 Refills, Soft Stop, 03/12/20 11:04:00 EST, [facility], Partial fill upon patient [...] 0 Refills, Maintenance, 06/13/20 14:10:00 EDT, Capsule, [facility],... Start Date: 06/13/20 Status: Ordered [...] 1resolved after weight loss 2chronic perst 3gyn 178[address] 5testing negative insulinoma 6likley dumping sydrome 7abnormal GTT ;sugar 36 two hours into test 8sees gi 9normal CT brain 10new 115.3 cm,right per ct scan recent;seeing gynecology soon;they will review 12vit d deficiency;correct 322591 14per endocrinology monitor 15correction refer GTT; 2 hour glucose 36 16refer GGT 17seeing ortho;pre op 18asma,ama neg/cerulopalsmain wnl,AAT wnl 19Negative hep A antibody positive hep B surface antibody negative antigen negative hep C, normal ferritin 20ukltrasound Social History Social History Type Response Smoking Status Never smoker entered on: 02/20/13 Sex
--- OUTSIDE RECORDS SUMMARY | 2022-08-17 08:21 | XMS_ITS | Continuity of Care Document ---
Author Name Unknown Organization [facility] Address [address] [place] [address]- Care Team Providers Care Hydrochloric Area Supervisor Name Role Phone Louisa LANDRUM, Taras Fuentes Primary Care Physician [phone] Encounter [facility] Date(s): 10/29/19 - 11/28/[address] [address]- [facility] Attending Physician: Konrad Curtis Admitting Physician: Konrad [...] toxoids (Td) 08/03/05 Given 1Result Comment: [12/07/2017] [id number] 2Result Comment: [12/21/2016] [facility]: [id number] 3Result Comment: [06/10/2015] #3 4Admin Note: per [...] 0 Refills, Maintenance, 07/03/19 13:59:00 EDT, Solution, [facility], 160, cm, 05/29/19 13:36:00 EDT, Height, 56.5, kg, 03... Start Date: 07/03/19 Status: Ordered albuterol CFC free 90 mcg/inh inhalation aerosol 2, puffs, Inhalation, 4 times a day, PRN, # 25 Gm, Refills 0, Tot. Refills 0, Maintenance, 07/07/2012:36:00 EDT, Aerosol, Route to Pharmacy Electronically, NCPDP_[id number], [facility], 160, cm, 07/08/19 13:03:00 EDT, Height, [...] 60 capsule, 5 Refills, Maintenance, 07/30/19 10:21:00EDT, [facility], 160, cm, 07/08/19 13:03:00 EDT, Height, 56.5, kg, 05/29/19 13:36:00 EDT, Dry Weight Start Date: 07/30/19 Status: Ordered eletriptan 40 mg oral tablet 1 tablet = 40 mg, By Mouth, Daily, PRN for migraine headache, # 9 tablet, 5 Refills, Soft Stop, 07/16/19 9:23:00 EDT, Tablet, [facility], she has tried sumatriptan and rizatriptan. [...] 1 Refills, Soft Stop, 11/20/19 11:59:00 EDT, [facility], 160.02, cm, 11/15/19 10:05:00 EDT, Height, [...] 02/25/19 16:55:00 EST, Route to Pharmacy Electronically, [facility], 158, cm, 02/14/19 7:55:00 EST, Height, 61.9, kg, 02/12/19 10:17:00... Start Date: 02/25/19 Status: Ordered montelukast 10 mg oral tablet 10 mg, 1, tablet, By Mouth, Daily in PM, # 90 tablet, Refills 3, Tot. Refills 3, Maintenance, 08/15/19 16:21:00 EDT, Route to Pharmacy Electronically, [facility], 160, cm, 08/15/19 13:45:00 EDT, Height, 56.5, kg, 05/29/19 13:36:00... Start Date: 08/15/19 Status: Ordered NuLYTELY with Flavor Packs oral powder for reconstitution 240 mL, By Mouth, Every 10 minutes, # 4,000 mL, 0 Refills, Maintenance, 11/15/19 10:29:00 EDT, REC Powder, [facility], 240 mL By Mouth Every 10 minutes, 160.02, cm, 11/15/19 10:05:00 EDT, Height, 67, kg, 09/11/19 11:20:00 EDT, Dry... Start Date: 11/15/19 Status: Ordered ondansetron 4 mg oral tablet, disintegrating 1 tablet = 4 mg, By Mouth, Every 8 hours, PRN as needed for nausea/vomiting, # 9 tablet, 0 Refills,Maintenance, 10/06/19 21:07:00 EDT, DIS Tablet, [facility] Start Date: 10/06/19 Stop Date: 10/09/19 Status: Ordered ProAir HFA 90 mcg/inh inhalation aerosol with adapter 2, puffs, Inhalation, Every 4 hours, PRN, # 8.5 Gm, Refills 2, Tot. Refills 2, Maintenance, 04/29/19 11:32:00 EST, Aerosol, Route to Pharmacy Electronically, NCPDP_[id number], [facility], 160, cm, 04/29/19 10:47:00 [...] 07/08/19 13:36:00 EDT, Route to Pharmacy Electronically, NCPDP_[id number], [facility], 160, cm, 07/08/19 13:03:00 ED... Start Date: 07/08/19 Status: Ordered Topamax 50 mg oral tablet 2 tablet = 100 mg, By Mouth, Daily at bedtime, # 60 tablet, 6 Refills, Maintenance, 11/04/19 11:08:00 EDT, Tablet, [facility], weaning zonegran off by 25mg every [...] Refills, Soft Stop, 11/25/19 21:26:00 EDT, Tablet, [facility], 160.02, cm, 11/15/19 10:05:00 EDT, Height,... 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 syndrome of shoulder(Confirmed) 18 Active Fatty liver(Confirmed) 19, 20, 21 10/09/16 Active Vitamin D deficiency(Confirmed) Active 1resolved after weight loss 2chronic perst 3folowed by mental health;recent hospitalization 4gyn 90484 6testing negative insulinoma 7likley dumping sydrome 8abnormal GTT ;sugar 36 two hours into test 9sees gi 10normal CT brain 11new 125.3 cm,right per ct scan recent;seeing gynecology soon;they will review 13vit d deficiency;correct 446562 15per endocrinology monitor 16correction refer GTT; 2 hour glucose 36 17refer GGT 18seeing ortho;pre op 19asma,ama neg/cerulopalsmain wnl,AAT wnl 20Negative hep A antibody positive hep B surface antibody negative antigen negative hep C, normal ferritin 21ukltrasound Social History Social History Type Response Smoking Status Never smoker entered on: 02/20/13 Sex
--- OUTSIDE RECORDS SUMMARY | 2022-08-17 08:21 | XMS_ITS | Continuity of Care Document ---
Author Name Unknown Organization [facility] Address [address] [place] [address]- Care Team Providers Care Rn Dermatology Name Role Phone Louisa LANDRUM, Taras Fuentes Primary Care Physician En[place] [facility] [place](s): 05/11/20 - 06/10/20 [facility] [address] [place] [address] Allergies, Adverse Reactions, Alerts Substance Reaction Severity [...] toxoids (Td) 08/03/05 Given 1Result Comment: [12/07/2017] [id number] 2Result Comment: [12/21/2016] [facility]: [id number] 3Result Comment: [06/10/2015] #3 4Admin Note: per [...] 0 Refills, Maintenance, 07/03/19 13:59:00 EDT, Solution, [facility], 160, cm, 05/29/19 13:36:00 EDT, Height, [...] 60 capsule, 5 Refills, Maintenance, 05/07/20 15:54:00EST, [facility], 160.02, cm, 05/01/20 9:18:00 EST, Height, [...] 1 Refills, Soft Stop, 11/20/19 11:59:00 EDT, [facility], 160.02, cm, 11/15/19 10:05:00 EDT, Height, [...] 02/25/19 16:55:00 EST, Route to Pharmacy Electronically, [facility], 158, cm, 02/14/19 7:55:00 EST, Height, 61.9, kg, 02/12/19 10:17:00... Start Date: 02/25/19 Status: Ordered montelukast 10 mg oral tablet 10 mg, 1, tablet, By Mouth, Daily in PM, # 90 tablet, Refills 3, Tot. Refills 3, Maintenance, 08/15/19 16:21:00 EDT, Route to Pharmacy Electronically, [facility], 160, cm, 08/15/19 13:45:00 EDT, Height, 56.5, kg, 05/29/19 13:36:00... Start Date: 08/15/19 Status: Ordered ProAir HFA 90 mcg/inh inhalation aerosol with adapter 2, puffs, Inhalation, Every 4 hours, PRN, # 8.5 Gm, Refills 2, Tot. Refills 2, Maintenance, 04/29/19 11:32:00 EST, Aerosol, Route to Pharmacy Electronically, NCPDP_[id number], [facility], 160, cm, 04/29/19 10:47:00 EST, Height... Start Date: 04/29/19 Status: Ordered Topamax 50 mg oral tablet See Instructions, take 1 tab in am and 2 tab at bedtime. If AM dose causes bad sedation, add to HS dose., # 90 tablet, 6 Refills, Maintenance, 03/12/20 11:09:00 EST, Tablet, [facility], weaning zonegran off by 25mg every 2 days t... Start Date: 03/12/20 Status: Ordered ubrogepant 100 mg oral tablet 1 tablet = 100 mg, By Mouth, Daily, # 10 tablet, 6 Refills, Soft Stop, 03/12/20 11:04:00 EST, [facility], Partial fill upon patient request if [...] perst 3folowed by mental health;recent hospitalization 4gyn 74580 6testing negative insulinoma 7likley dumping sydrome 8abnormal GTT ;sugar 36 two hours into test 9sees gi 10normal CT brain 11new 125.3 cm,right per ct scan recent;seeing gynecology soon;they will review 13vit d deficiency;correct [id number] 15per endocrinology monitor 16correction refer GTT; 2 hour glucose 36 17refer GGT 18seeing ortho;pre op 19asma,ama neg/cerulopalsmain wnl,AAT wnl 20Negative hep A antibody positive hep B surface antibody negative antigen negative hep C, normal ferritin 21ukltrasound Social History Social History Type Response Smoking Status Never smoker entered on: 02/20/13 Sex
--- OUTSIDE RECORDS SUMMARY | 2022-08-17 08:21 | XMS_ITS | Continuity of Care Document ---
Author Name Unknown Organization [facility] Oswaldo lt Address [address] [place] [address]- Care Team Providers Care Advertising Account Representative Name Role Phone Louisa LANDRUM, Taras Fuentes Primary Care Physician [place] [facility] [place] 11/03/20 - 11/10/20 [facility] Adult [address] [place] [address]- Encounter Diagnosis BPPV (benign paroxysmal positional vertigo)(Discharge Diagnosis) - 11/03/20 Nasal congestion(Discharge Diagnosis) - 11/03/20 Attending Physician: Josee JOHNSON, Paola Allergies, Adverse Reactions, Alerts Substance Reaction Severity [...] toxoids (Td) 08/03/05 Given 1Result Comment: [12/07/2017] [id number] 2Result Comment: [12/21/2016] [facility]: 77457-999-04 3Result Comment: [06/10/2015] #3 4Admin Note: per pt 5Admin Note: given in clinic Medications acarbose 50 mg oral tablet 1 tablet = 50 mg, By Mouth, 3 times a day, Take 3 times daily with meals. E11.65, # 90 tablet, 5 Refills, Maintenance, 07/13/20 16:29:00 EDT, Tablet, [facility], Partial fill upon patient [...] 0 Refills, Maintenance, 07/03/19 13:59:00 EDT, Solution, [facility], 160, cm, 05/29/19 13:36:00 EDT, Height, 56.5, kg, 03... Start Date: 07/03/19 Status: Ordered amitriptyline 50 mg oral tablet 1 tablet = 50 mg, By Mouth, Daily at bedtime, # 30 tablet, 5 Refills, Maintenance, 07/22/20 8:03:00EDT, [facility], Partial fill upon patient request if the prescription is for a schedule II opioid drug., 158.02, cm, 07/06/20 6:4... Start Date: 07/22/20 Status: Ordered Baqsimi One Pack 3 mg nasal powder See Instructions, 3 mg Once intrasnasally for severe hypoglycemia, # 2 each, 3 Refills, Soft Stop, 08/28/20 10:36:00 EDT, [facility], Partial fill upon patient request if the prescription is for a schedule II opioid drug., 158.02,... Start Date: 08/28/20 Status: Ordered buPROPion 300 mg/24 hours (XL) oral tablet, extended release 1 tablet = 300 mg, By Mouth, Daily in AM, 0 Refills, Maintenance, 09/03/19 12:26:00 EDT Start Date: 09/03/19 Status: Ordered cetirizine 10 mg oral tablet 1 tablet = 10 mg, By Mouth, Daily, # 30 tablet, 5 Refills, Maintenance, 11/06/20 10:28:00 EDT, Tablet, [facility], Replaces loratidine, 158.02, cm, 11/06/20 10:04:00 EDT, Height,67, kg, 09/11/19 11:20:00 EDT, Dry Weight Start Date: 11/06/20 Status: Ordered famotidine 40 mg oral tablet [...] 1 Refills, Soft Stop, 11/20/19 11:59:00 EDT, [facility], 160.02, cm, 11/15/19 10:05:00 [...] 0 Refills, Maintenance, 11/03/20 7:49:00 EDT, Tablet, [facility], Partial fill upon patient request if the prescription is for... Start Date: 11/03/20 Status: Ordered montelukast 10 mg oral tablet 10 mg, 1, tablet, By Mouth, Daily in PM, # 90 tablet, Refills 3, Tot. Refills 3, Maintenance, 08/15/19 16:21:00 EDT, Route to Pharmacy Electronically, [facility], 160, cm, 08/15/19 13:45:00 EDT, Height, 56.5, kg, 05/29/19 13:36:00... Start Date: 08/15/19 Status: Ordered Victoria Vera 0.65% nasal spray 2 sprays, Nares, Both, 4 times a day, # 1 each, 0 Refills, Maintenance, 10/30/20 11:34:00 EDT, [facility], Partial fill upon patient request if the prescription is for a scheduleII opioid drug., 2 sprays Nares, Both 4 times a day... Start Date: 10/30/20 Status: Ordered omeprazole 40 mg oral enteric coated capsule 1 capsule = 40 mg, By Mouth, 2 times a day, before a meal, 0 Refills, Maintenance, 08/27/20 9:43:00EDT, EC Capsule Start Date: 08/27/20 Status: Ordered pregabalin 75 mg oral capsule 1 capsule = 75 mg, By Mouth, Daily, # 30 capsule, 0 Refills, Maintenance, 08/27/20 9:45:00 EDT, Capsule, [facility], Partial fill upon patient request if the prescription is for a schedule II opioid drug., 158.02, cm, 08/27/20 9:2... Start Date: 08/27/20 Stop Date: 09/26/20 Status: Ordered ProAir HFA 90 mcg/inh inhalation aerosol with adapter 2, puffs, Inhalation, Every 4 hours, PRN, # 8.5 Gm, Refills 2, Tot. Refills 2, Maintenance, 04/29/19 11:32:00 EST, Aerosol, Route to Pharmacy Electronically, NCPDP_[id number], [facility], 160, cm, 04/29/19 10:47:00 EST, Height... Start Date: 04/29/19 Status: Ordered Reclast = 5 mg, IV Infusion, Once, 0 Refills, Maintenance, 11/06/20 10:24:00 EDT, administered at [facility] 10/2020 Start Date: 11/06/20 Status: Ordered Symbicort 160mcg/4.5mcg Inhaler 2, puffs, Inhalation, 2 times a day, Refills 0, Maintenance, 08/27/20 9:43:00 EDT, Aerosol Start Date: 08/27/20 Status: Ordered Topamax 50 mg oral tablet 2 tablet = 100 mg, By Mouth, Daily at bedtime, # 60 tablet, 6 Refills, Maintenance, 08/04/20 11:44:00 EDT, Tablet, [facility], 158.02, cm, 07/06/20 6:49:00 EDT, [...] 6 Refills, Soft Stop, 08/04/20 11:37:00 EDT, [facility], Partial fill upon patient request if the prescription is for a schedule II opioid drug., 158.02, cm, 07/06/20 6:49:00 EDT, H... Start Date: 08/04/20 Stop Date: 03/02/21 Status: [...] 06/18/15 Active H/O laparoscopic adjustable gastric banding 2007/removed FEB 2021(Confirmed) 4 Active History of cholecystectomy(Confirmed) 04/10/17 [...] 1resolved after weight loss 2chronic perst 3gyn 67094 5testing negative insulinoma 6likley dumping sydrome 7abnormal GTT ;sugar 36 two hours into test 8sees gi 9normal CT brain 10new 115.3 cm,right per ct scan recent;seeing gynecology soon;they will review 12vit d deficiency;correct 640343 14per endocrinology monitor 15correction refer GTT; 2 hour glucose 36 16refer GGT 17seeing ortho;pre op 18asma,ama neg/cerulopalsmain wnl,AAT wnl 19Negative hep A antibody positive hep B surface antibody negative antigen negative hep C, normal ferritin 20ukltrasound Diagnosis Diagnosis Type Effective Dates Health Status Clinical Service Informant BPPV (benign paroxysmal positional vertigo) Discharge Diagnosis 11/03/20 Nasal congestion Discharge Diagnosis 11/03/20 Vital Signs Most recent to oldest [Reference Range]: 1 Height 158.02 cm (11/03/20 7:20 AM) Weight 75.9 kg (11/03/20 7:20 AM) Body Mass Index [18.5-24.99] 30.4 *>HHI* (11/03/20 7:20 AM) Blood Pressure [90-138/55-84 mm Hg] 108/ 66mm Hg (11/03/20 7:20 AM) Blood pressure sites Arm, left (11/03/20 7:20 AM) Social History Social History Type Response Smoking Status Never smoker entered on: 02/20/13 Sex
--- OUTSIDE RECORDS SUMMARY | 2022-08-17 08:21 | XMS_ITS | Continuity of Care Document ---
Author Name Unknown Organization [facility] Oswaldo lt Address [address] [place] [address]- Care Team Providers Care Market Development Manager Name Role Phone Louisa LANDRUM, Taras Fuentes Primary Care Physician Encounter [facility] [place](s): 07/04/20 - 08/03/20 [facility] Adult [address] [place] [address]- Allergies, Adverse Reactions, Alerts Substance Reaction Severity [...] toxoids (Td) 08/03/05 Given 1Result Comment: [12/07/2017] [id number] 2Result Comment: [12/21/2016] [facility]: [id number] 3Result Comment: [06/10/2015] #3 4Admin Note: per pt 5Admin Note: given in clinic Medications acarbose 25 mg oral tablet 1 tablet = 25 mg, By Mouth, 3 times a day, Take 1 tablet 3 times daily with meals. Add to 50mg dosefor total of 75mg 3 times daily. E11.65, # 270 tablet, 3 Refills, Maintenance, 07/15/20 12:23:00 EDT, Tablet, [facility], Partial... Start Date: 07/15/20 Status: Ordered acarbose 50 mg oral tablet 1 tablet = 50 mg, By Mouth, 3 times a day, Take 3 times daily with meals. E11.65, # 90 tablet, 5 Refills, Maintenance, 07/13/20 16:29:00 EDT, Tablet, [facility], Partial fill upon patient request if [...] 0 Refills, Maintenance, 07/03/19 13:59:00 EDT, Solution, [facility], 160, cm, 05/29/19 13:36:00 EDT, [...] 30 tablet, 5 Refills, Maintenance, 07/22/20 8:03:00EDT, [facility], Partial fill upon patient request if [...] 60 capsule, 5 Refills, Maintenance, 05/07/20 15:54:00EST, [facility], 160.02, cm, 05/01/20 9:18:00 EST, Height, [...] 1 Refills, Soft Stop, 11/20/19 11:59:00 EDT, [facility], 160.02, cm, 11/15/19 10:05:00 EDT, [...] 02/25/19 16:55:00 EST, Route to Pharmacy Electronically, [facility], 158, cm, 02/14/19 7:55:00 EST, Height, 61.9, kg, 02/12/19 10:17:00... Start Date: 12/23/19 Status: Ordered montelukast 10 mg oral tablet 10 mg, 1, tablet, By Mouth, Daily in PM, # 90 tablet, Refills 3, Tot. Refills 3, Maintenance, 08/15/19 16:21:00 EDT, Route to Pharmacy Electronically, [facility], 160, cm, 08/15/19 13:45:00 EDT, Height, 56.5, kg, 05/29/19 13:36:00... Start Date: 08/15/19 Status: Ordered ProAir HFA 90 mcg/inh inhalation aerosol with adapter 2, puffs, Inhalation, Every 4 hours, PRN, # 8.5 Gm, Refills 2, Tot. Refills 2, Maintenance, 04/29/19 11:32:00 EST, Aerosol, Route to Pharmacy Electronically, NCPDP_[id number], [facility], 160, cm, 04/29/19 10:47:00 EST, Height... Start Date: 04/29/19 Status: Ordered rifAXIMin 550 mg oral tablet 1 tablet = 550 mg, By Mouth, 3 times a day, # 42 tablet, 0 Refills, Maintenance, 07/14/20 13:37:00 EDT, Tablet, [facility], Partial fill upon patient request if [...] 6 Refills, Maintenance, 03/12/20 11:09:00 EST, Tablet, [facility], weaning zonegran off by 25mg [...] 6 Refills, Soft Stop, 03/12/20 11:04:00 EST, [facility], Partial fill upon patient request if [...] 0 Refills, Maintenance, 06/13/20 14:10:00 EDT, Capsule, [facility],... Start Date: 06/13/20 Status: Ordered Problem [...] 1resolved after weight loss 2chronic perst 3gyn 42945 5testing negative insulinoma 6likley dumping sydrome 7abnormal GTT ;sugar 36 two hours into test 8sees gi 9normal CT brain 10new 115.3 cm,right per ct scan recent;seeing gynecology soon;they will review 12vit d deficiency;correct [id number] 14per endocrinology monitor 15correction refer GTT; 2 hour glucose 36 16refer GGT 17seeing ortho;pre op 18asma,ama neg/cerulopalsmain wnl,AAT wnl 19Negative hep A antibody positive hep B surface antibody negative antigen negative hep C, normal ferritin 20ukltrasound Social History Social History Type Response Smoking Status Never smoker entered on: 02/20/13 Sex
--- OUTSIDE RECORDS SUMMARY | 2022-08-17 08:21 | XMS_ITS | Continuity of Care Document ---
Author Name Unknown Organization [facility] Nikita Oswaldo lt Address [address] [place] [address]- Care Team Providers Care Snow Blower Name Role Phone Louisa LANDRUM, Taras Fuentes Primary Care Physician [phone] Encounter [facility] Date(s): 09/01/19 - 10/01/19 [facility] Adult [address] [place] [address]- [facility] Allergies, Adverse Reactions, Alerts Substance Reaction Severity [...] toxoids (Td) 08/03/05 Given 1Result Comment: [12/07/2017] [id number] 2Result Comment: [12/21/2016] [facility]: [id number] 3Result Comment: [06/10/2015] #3 4Admin Note: per [...] 0 Refills, Maintenance, 07/03/19 13:59:00 EDT, Solution, [facility], 160, cm, 05/29/19 13:36:00 EDT, Height, 56.5, kg, 03... Start Date: 07/03/19 Status: Ordered albuterol CFC free 90 mcg/inh inhalation aerosol 2, puffs, Inhalation, 4 times a day, PRN, # 25 Gm, Refills 0, Tot. Refills 0, Maintenance, 07/07/2012:36:00 EDT, Aerosol, Route to Pharmacy Electronically, NCPDP_[id number], [facility], 160, cm, 07/08/19 13:03:00 EDT, Height, [...] 60 capsule, 5 Refills, Maintenance, 07/30/19 10:21:00EDT, [facility], 160, cm, 07/08/19 13:03:00 EDT, Height, 56.5, kg, 05/29/19 13:36:00 EDT, Dry Weight Start Date: 07/30/19 Status: Ordered eletriptan 40 mg oral tablet 1 tablet = 40 mg, By Mouth, Daily, PRN for migraine headache, # 9 tablet, 5 Refills, Soft Stop, 07/16/19 9:23:00 EDT, Tablet, [facility], she has tried sumatriptan and rizatriptan. if insurance still declines let me know which I c... Start Date: 07/16/19 Stop Date: 01/12/20 Status: Ordered famotidine 20 mg oral tablet 20 mg, 1, tablet, By Mouth, Daily at bedtime, # 30 tablet, Refills 5, Tot. Refills 5, Maintenance, 05/17/19 12:02:00 EDT, Route to Pharmacy Electronically, [facility], 160, cm, 05/16/19 10:27:00 EDT, Height, 62.9, kg, 05/12/19 9:1... Start Date: 05/17/19 Status: Ordered famotidine 40 mg oral tablet 1/2 tablet, By Mouth, Daily at bedtime, famotidine 20mg backordered. please take 1/2 tab daily, # 30 each, 1 Refills, Maintenance, 07/30/19 10:21:00 EDT, [facility], 160, cm, 07/08/19 13:03:00 EDT, Height, [...] 02/25/19 16:55:00 EST, Route to Pharmacy Electronically, [facility], 158, cm, 02/14/19 7:55:00 EST, Height, 61.9, kg, 02/12/19 10:17:00... Start Date: 02/25/19 Status: Ordered montelukast 10 mg oral tablet 10 mg, 1, tablet, By Mouth, Daily in PM, # 90 tablet, Refills 3, Tot. Refills 3, Maintenance, 08/15/19 16:21:00 EDT, Route to Pharmacy Electronically, [facility], 160, cm, 08/15/19 13:45:00 EDT, Height, 56.5, kg, 05/29/19 13:36:00... Start Date: 08/15/19 Status: Ordered ProAir HFA 90 mcg/inh inhalation aerosol with adapter 2, puffs, Inhalation, Every 4 hours, PRN, # 8.5 Gm, Refills 2, Tot. Refills 2, Maintenance, 04/29/19 11:32:00 EST, Aerosol, Route to Pharmacy Electronically, NCPDP_[id number], [facility], 160, cm, [...] 07/08/19 13:36:00 EDT, Route to Pharmacy Electronically, NCPDP_[id number], [facility], 160, cm, 07/08/19 13:03:00 ED... Start Date: 07/08/19 Status: Ordered Topamax 50 mg oral tablet 1 tablet = 50 mg, By Mouth, Daily at bedtime, after weaning off zonegran, take 50mg at HS for 2 weeks then increase to 100mg at HS, # 30 tablet, 6 Refills, Maintenance, 07/16/19 10:51:00 EDT, Tablet,[facility], weaning zonegran o... Start Date: 07/16/19 Stop Date: 02/11/20 Status: Ordered Zofran 4 mg oral tablet 1 tablet = 4 mg, By Mouth, Every 8 hours, PRN Nausea & Vomiting, # 30 tablet, 0 Refills, Maintenance, 09/30/19 11:23:00 EDT, [facility], 160.02, cm, 09/24/19 15:31:00 EDT, [...] perst 3folowed by mental health;recent hospitalization 4gyn 56891 6testing negative insulinoma 7likley dumping sydrome 8abnormal GTT ;sugar 36 two hours into test 9sees gi 10normal CT brain 11new 125.3 cm,right per ct scan recent;seeing gynecology soon;they will review 13vit d deficiency;correct 406914 15per endocrinology monitor 16correction refer GTT; 2 hour glucose 36 17refer GGT 18seeing ortho;pre op 19asma,ama neg/cerulopalsmain wnl,AAT wnl 20Negative hep A antibody positive hep B surface antibody negative antigen negative hep C, normal ferritin 21ukltrasound Social History Social History Type Response Smoking Status Never smoker entered on: 02/20/13 Sex
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
--- OUTSIDE RECORDS SUMMARY | 2022-08-17 08:21 | XMS_ITS | Continuity of Care Document ---
Author Name Unknown Organization [facility] Address [address] [place] [address]- Care Team Providers Care Stripping Shovel Oiler Name Role Phone Louisa LANDRUM, Taras Fuentes Primary Care Physician Encounter [facility] Date(s): 06/12/20 - 07/12/20 [facility] [address] [place] [address] [id number] Allergies, Adverse Reactions, Alerts [...] toxoids (Td) 08/03/05 Given 1Result Comment: [12/07/2017] [id number] 2Result Comment: [12/21/2016] [facility]: [id number] 3Result Comment: [06/10/2015] #3 4Admin Note: per [...] Refills, Maintenance, 07/03/19 13:59:00 EDT, Solution, [facility], 160, cm, 05/29/19 13:36:00 EDT, [...] 60 capsule, 5 Refills, Maintenance, 05/07/20 15:54:00EST, [facility], 160.02, cm, 05/01/20 9:18:00 EST, [...] Refills, Soft Stop, 11/20/19 11:59:00 EDT, [facility], 160.02, cm, 11/15/19 10:05:00 EDT, [...] 16:55:00 EST, Route to Pharmacy Electronically, [facility], 158, cm, 02/14/19 7:55:00 EST, Height, 61.9, kg, 02/12/19 10:17:00... Start Date: 02/25/19 Status: Ordered montelukast 10 mg oral tablet 10 mg, 1, tablet, By Mouth, Daily in PM, # 90 tablet, Refills 3, Tot. Refills 3, Maintenance, 08/15/19 16:21:00 EDT, Route to Pharmacy Electronically, [facility], 160, cm, 08/15/19 13:45:00 EDT, Height, 56.5, kg, 05/29/19 13:36:00... Start Date: 08/15/19 Status: Ordered ProAir HFA 90 mcg/inh inhalation aerosol with adapter 2, puffs, Inhalation, Every 4 hours, PRN, # 8.5 Gm, Refills 2, Tot. Refills 2, Maintenance, 04/29/19 11:32:00 EST, Aerosol, Route to Pharmacy Electronically, NCPDP_[id number], [facility], 160, cm, 04/29/19 10:47:00 EST, Height... Start Date: 04/29/19 Status: Ordered Topamax 50 mg oral tablet See Instructions, take 1 tab in am and 2 tab at bedtime. If AM dose causes bad sedation, add to HS dose., # 90 tablet, 6 Refills, Maintenance, 03/12/20 11:09:00 EST, Tablet, [facility], weaning zonegran off by 25mg [...] Refills, Soft Stop, 03/12/20 11:04:00 EST, [facility], Partial fill upon [...] 0 Refills, Maintenance, 06/13/20 14:10:00 EDT, Capsule, [facility],... Start Date: 06/13/20 Status: Ordered [...] 1resolved after weight loss 2chronic perst 3gyn 17398 5testing negative insulinoma 6likley dumping sydrome 7abnormal GTT ;sugar 36 two hours into test 8sees gi 9normal CT brain 10new 115.3 cm,right per ct scan recent;seeing gynecology soon;they will review 12vit d deficiency;correct [id number] 14per endocrinology monitor 15correction refer GTT; 2 hour glucose 36 16refer GGT 17seeing ortho;pre op 18asma,ama neg/cerulopalsmain wnl,AAT wnl 19Negative hep A antibody positive hep B surface antibody negative antigen negative hep C, normal ferritin 20ukltrasound Social History Social History Type Response Smoking Status Never smoker entered on: 02/20/13 Sex
--- OUTSIDE RECORDS SUMMARY | 2022-08-17 08:22 | XMS_ITS | Continuity of Care Document ---
Author Name Unknown Organization [facility] Address [address] [place] [address]- Care Team Providers Care Housing Officer Name Role Phone Eran Sue JOHNSON Primary Care Physician [phone] Encounter [facility] [place] Date(s): 06/22/22 - 07/22/22 [facility] [address] [place] [address]- [place] Allergies, Adverse Reactions, Alerts Substance Reaction Severity Status Dust Allergy to pollen Active Pollen seasonal allergies respiratory symptoms Active Incruse Ellipta 1 lightheaded and migraine Active 1dizzy Immunizations Given and Recorded Vaccine Date Status Refusal Reason [id number] 12y+ bivalent booster vax 1 12/24/21 Given [...] vaccine, inactivated 02/08/11 Give n SARS-CoV-2 mRNA ([id number]) vax 05/01/21 Recorded zoster vaccine, inactivated 11/03/20 [...] tetanus-diphtheria toxoids (Td) 08/03/05 Given 1Result Comment: [id number] 2Result Comment: 58346-028-97 3Result Comment: [12/07/2017] [address]-79 4Result Comment: [12/21/2016] [facility]: [id number] 5Result Comment: [06/10/2015] #3 6Admin Note: per pt 7Admin Note: given in clinic Medications acetaminophen 500 mg oral tablet 2 tablet = 1,000 mg, By Mouth, Every 6 hours, PRN as needed for fever, # 200 tablet, 0 Refills, Maintenance, 12/03/21 10:17:00 EDT, Tablet, [facility], Partial fill upon patient request if the prescription is for a schedule II opi... Start Date: 12/03/21 Status: Ordered Albuterol (Eqv-ProAir HFA) 90 mcg/inh inhalation aerosol 2 puffs, Inhalation, Every 4 hours, PRN NEEDED FOR WHEEZING, # 8.5 Gm, 5 Refills, Maintenance, 03/09/22 11:21:00 EST, [facility], 17, INHALE TWO PUFFS BY MOUTH [...] 6 Refills, Maintenance, 11/03/21 8:23:00 EDT, Tablet, [facility], 2 tablet By Mouth 2 times a day, 158, cm, 11/03/21 8:01:00 EDT,Height, 71.5, kg, 09/01/21 16:21:00 EDT, Dry Weight Start Date: 11/03/21 Status: Ordered Carafate 1 gm/10 ml oral suspension 10 mL = 1 Gm, By Mouth, 3 times a day before meals and bedtime, # 1,200 mL, 5 Refills, Maintenance,04/29/22 9:16:00 EST, [facility] #[id number], Partial fill upon patient request if the prescription is for a schedule II opioid drug., 158, cm, 02... Start Date: 04/29/22 Status: Ordered cetirizine 10 mg oral tablet 1 tablet, By Mouth, Daily, # 30 tablet, 5 Refills, Maintenance, 06/03/22 11:40:00 EDT, [facility], 158, cm, 05/25/22 13:59:00 EDT, Height, [...] Refills, Maintenance, 05/30/22 7:57:00 EDT, CR Capsule, [facility], Partial fill upon patient request if the prescription is for a schedule II opioid... Start Date: 05/30/22 Status: Ordered Emgality Prefilled Pen 120 mg/mL subcutaneous solution = 120 mg, Subcutaneous Injection, Once, Maintenance Dose, # 3 kit, 2 Refills, Soft Stop, 07/14/22 10:04:00 EDT, [facility], requesting 3 month supply for cheaper martinez. with 2 refills. had follow up just now, doing great, albertina Baca... Start Date: 07/14/22 Status: Ordered EPINEPHrine 1 mg/mL injectable solution 0.3 mL = 0.3 mg, Intramuscular, Once, # 1 mL, 1 Refills, Soft Stop, 03/08/21 15:07:00 EST, Solution, [facility], Partial fill upon patient request if the prescription is for a schedule II opioid drug., 158, cm, 03/08/21 12:18:00 E... Start Date: 03/08/21 Status: Ordered famotidine 40 mg oral tablet 1 tablet = 40 mg, By Mouth, 2 times a day, # 60 tablet, 6 Refills, Maintenance, 01/31/22 14:05:00 EST, Suspension, [facility], Partial fill upon patient request if the prescription is for a schedule II opioid drug., 163, cm, 01/18... Start Date: 01/31/22 Stop Date: 08/29/22 Status: Ordered Fiber Choice 1.5 g oral tablet, chewable 1 tablet = 1.5 Gm, Chew, 3 times a day, # 90 tablet, 0 Refills, Maintenance, 04/09/22 15:16:00 EST,Chew Tablet, [facility] #[id number], Partial fill upon patient request if the [...] Refills, Maintenance, 04/09/22 15:16:00 EST, REC Powder, [facility] #[id number], Partial fill upon patient request if the prescription is for a schedule II opioid drug., 17 Gm... Start Date: 04/09/22 Status: Ordered montelukast 10 mg oral tablet 1, tablet, By Mouth, Daily in PM, # 90 tablet, Refills 1, Tot. Refills 1, Maintenance, 11/14/21 11:28:00 EDT, Route to Pharmacy Electronically, [facility], 158, cm, 11/03/21 8:01:00 EDT, Height, 71.5, kg, 09/01/21 16:21:00 EDT, Start Date: 11/14/21 Status: Ordered Nurtec ODT 75 mg oral tablet, disintegrating See Instructions, TAKE ONE TABLET DAILY NEEDED FOR migraines, DO NOT EXCEED ONE TABLET IN 24 HOURS, # 8 tablet, 6 Refills, Maintenance, 12/28/21 15:14:00 EDT, [facility], 163,cm, 12/24/21 8:20:00 EDT, Height, [...] Refills, Maintenance, 11/06/20 10:24:00 EDT, administered at [facility] 10/2020 Start Date: 11/06/20 Status: Ordered Stool Softener + Stimulant Laxative 50 mg-8.6 mg oral capsule 1 capsule, By Mouth, Daily in PM, # 60 capsule, 0 Refills, Maintenance, 04/09/22 15:17:00 EST, Capsule, [facility] #[id number], Partial fill upon patient request if the prescription is for a schedule II opioid drug., 1 capsule By Mouth Daily in P... Start Date: 04/09/22 Status: Ordered Symbicort 160mcg/4.5mcg Inhaler 2, puffs, Inhalation, 2 times a day, rinse mouth and throat after use, # 10.2 Gm, Refills 2, Tot. Refills 2, Maintenance, 06/10/22 20:48:00 EDT, Route to Pharmacy Electronically, NCPDP_[id number], [facility], 158, cm, 06/07/22 10:... Start Date: [...] Active Vitamin D deficiency Confirmed Active 1gyn 61090 3testing negative insulinoma 4likley dumping sydrome 5abnormal GTT ;sugar 36 two hours into test 6normal CT brain 7new 8resolved after weight loss 9chronic perst 105.3 cm,right per ct scan recent;seeing gynecology soon;they will review 11vit d deficiency;correct [id number] 13per endocrinology monitor 14correction refer GTT; 2 hour glucose 36 15refer GGT 16seeing ortho;pre op 17asma,ama neg/cerulopalsmain wnl,AAT wnl 18Negative hep A antibody positive hep B surface antibody negative antigen negative hep C, normal ferritin 19ukltrasound Social History Social History Type Response Smoking Status Never smoker entered on: 02/20/13 Sex Patient Care team information Care Team Personnel Name: Caitlyn Mcgee RN Position: [facility] RN Member Role: Primary Care Nurse Name: Sue Barillas NP Position: [facility] PCO Associate Professional Member Role: PCP Address: Address: [address] [place] [address]- Name: Andria Guadalupe RN Position: [facility] RN Member Role: Primary Care Nurse Name: Liz Martin RN Position: [facility] RN Member Role: Primary Care Nurse Name: Ambreen Mcmahon RN Position: [facility] RN Member Role: Primary Care Nurse Name: Irais Grijalva RN Position: S RN Member Role: Primary Care Nurse Name: Autumn Martinez RN Position: [facility] SN RN Member Role: Primary Care Nurse Name: Liz English RN Position: S RN Member Role: Primary Care Nurse Name: Dora Williamson RN Position: [facility] RN Member Role: Primary Care Nurse Care Team Related Persons Name: KHUSHI CUNNINGHAM Address: home [address] [place] [address] Name: BHUPINDER VENEGAS Address: [address] [place] [address] Name: FELIPE FLORES Address: home [address] [place] [address] Name: ARNAV FLORES Address: home [address] [place] [address] Name: IRINA FLORES Address: home [address] [place] [address] Name: RUSLAN FLORES Address: home [address] [place] [address] Name: KAISER PLUNKETT Address: home [address] [place] [address]
--- OUTSIDE RECORDS SUMMARY | 2022-08-17 08:22 | XMS_ITS | Continuity of Care Document ---
Author Name Unknown Organization [facility] Address [address] [place] [address]- Care Team Providers Care Department Mgr Name Role Phone Eran Sue JOHNSON Primary Care Physician [place] [facility] [place] 05/18/22 - 06/17/22 [facility] [address] [place] [address]- [place] Allergies, Adverse Reactions, Alerts Substance Reaction Severity Status Dust Allergy to pollen Active Pollen seasonal allergies respiratory symptoms Active Incruse Ellipta 1 lightheaded and migraine Active 1dizzy Immunizations Given and Recorded Vaccine Date Status Refusal Reason [id number] 12y+ bivalent booster vax 1 12/24/21 Given influenza virus vaccine, inactivated 2 12/24/21 Gi vikcie influenza virus vaccine, inactivated 12/11/20 Give n [...] vaccine, inactivated 02/08/11 Give n SARS-CoV-2 mRNA ([id number]) vax 05/01/21 Recorded zoster vaccine, inactivated 11/03/20 [...] tetanus-diphtheria toxoids (Td) 08/03/05 Given 1Result Comment: [address]-9 2Result Comment: [id number] 3Result Comment: [12/07/2017] [id number] 4Result Comment: [12/21/2016] [facility]: 26408-674-90 5Result Comment: [06/10/2015] #3 6Admin Note: per pt 7Admin Note: given in clinic Medications acetaminophen 500 mg oral tablet 2 tablet = 1,000 mg, By Mouth, Every 6 hours, PRN as needed for fever, # 200 tablet, 0 Refills, Maintenance, 12/03/21 10:17:00 EDT, Tablet, [facility], Partial fill upon patient request if the prescription is for a schedule II opi... Start Date: 12/03/21 Status: Ordered Albuterol (Eqv-ProAir HFA) 90 mcg/inh inhalation aerosol 2 puffs, Inhalation, Every 4 hours, PRN NEEDED FOR WHEEZING, # 8.5 Gm, 5 Refills, Maintenance, 03/09/22 11:21:00 EST, [facility], 17, INHALE TWO PUFFS [...] 6 Refills, Maintenance, 11/03/21 8:23:00 EDT, Tablet, [facility], 2 tablet By Mouth 2 times a day, 158, cm, 11/03/21 8:01:00 EDT,Height, 71.5, kg, 09/01/21 16:21:00 EDT, Dry Weight Start Date: 11/03/21 Status: Ordered Carafate 1 gm/10 ml oral suspension 10 mL = 1 Gm, By Mouth, 3 times a day before meals and bedtime, # 1,200 mL, 5 Refills, Maintenance,04/29/22 9:16:00 EST, [facility] #[id number], Partial fill upon patient request if the prescription is for a schedule II opioid drug., 158, cm, 02... Start Date: 04/29/22 Status: Ordered cetirizine 10 mg oral tablet 1 tablet, By Mouth, Daily, # 30 tablet, 5 Refills, Maintenance, 06/03/22 11:40:00 EDT, [facility], 158, cm, 05/25/22 13:59:00 [...] Refills, Maintenance, 05/30/22 7:57:00 EDT, CR Capsule, [facility], Partial fill upon patient request if the prescription is for a schedule II opioid... Start Date: 05/30/22 Status: Ordered Emgality Prefilled Pen 120 mg/mL subcutaneous solution = 120 mg, Subcutaneous Injection, Once, Maintenance Dose, # 3 kit, 2 Refills, Soft Stop, 03/17/22 8:08:00 EST, [facility], requesting 3 month supply [...] 6 Refills, Maintenance, 01/31/22 14:05:00 EST, Suspension, [facility], Partial fill upon patient request if the prescription is for a schedule II opioid drug., 163, cm, 01/18... Start Date: 01/31/22 Stop Date: 08/29/22 Status: Ordered Fiber Choice 1.5 g oral tablet, chewable 1 tablet = 1.5 Gm, Chew, 3 times a day, # 90 tablet, 0 Refills, Maintenance, 04/09/22 15:16:00 EST,Chew Tablet, [facility] #[id number], Partial fill upon patient request if the [...] Refills, Maintenance, 04/09/22 15:16:00 EST, REC Powder, [facility] #[id number], Partial fill upon patient request if the prescription is for a schedule II opioid drug., 17 Gm... Start Date: 04/09/22 Status: Ordered montelukast 10 mg oral tablet 1, tablet, By Mouth, Daily in PM, # 90 tablet, Refills 1, Tot. Refills 1, Maintenance, 11/14/21 11:28:00 EDT, Route to Pharmacy Electronically, [facility], 158, cm, 11/03/21 8:01:00 EDT, Height, 71.5, kg, 09/01/21 16:21:00 EDT, . Start Date: 11/14/21 Status: Ordered Nurtec ODT 75 mg oral tablet, disintegrating See Instructions, TAKE ONE TABLET DAILY NEEDED FOR migraines, DO NOT EXCEED ONE TABLET IN 24 HOURS, # 8 tablet, 6 Refills, Maintenance, 12/28/21 15:14:00 EDT, [facility], 163,cm, 12/24/21 8:20:00 EDT, [...] each, 0 Refills, Maintenance, 04/06/22 15:29:00 EST, [facility] #[id number], Partial fi... Start Date: 04/06/22 Status: Ordered Reclast = 5 mg, IV Infusion, Once, 0 Refills, Maintenance, 11/06/20 10:24:00 EDT, administered at [facility] 10/2020 Start Date: 11/06/20 Status: Ordered Stool Softener + Stimulant Laxative 50 mg-8.6 mg oral capsule 1 capsule, By Mouth, Daily in PM, # 60 capsule, 0 Refills, Maintenance, 04/09/22 15:17:00 EST, Capsule, [facility] #[id number], Partial fill upon patient request if the prescription is for a schedule II opioid drug., 1 capsule By Mouth Daily in P... Start Date: 04/09/22 Status: Ordered Symbicort 160mcg/4.5mcg Inhaler 2, puffs, Inhalation, 2 times a day, rinse mouth and throat after use, # 10.2 Gm, Refills 2, Tot. Refills 2, Maintenance, 06/10/22 20:48:00 EDT, Route to Pharmacy Electronically, NCPDP_[id number], [facility], 158, cm, 06/07/22 10:... [...] Active Vitamin D deficiency Confirmed Active 1gyn 35421 3testing negative insulinoma 4likley dumping sydrome 5abnormal GTT ;sugar 36 two hours into test 6normal CT brain 7new 8resolved after weight loss 9chronic perst 105.3 cm,right per ct scan recent;seeing gynecology soon;they will review 11vit d deficiency;correct [id number] 13per endocrinology monitor 14correction refer GTT; 2 [...] Care Nurse Name: Sue Barillas NP Position: [facility] PCO Associate Professional Member Role: PCP Address: Address: [address] [place], [place] [address] Name: Andria Guadalupe RN Position: [facility] SN RN Member Role: Primary Care Nurse Name: Liz Martin RN Position: [facility] RN Member Role: Primary Care Nurse Name: Ambreen Mcmahon RN Position: [facility] RN Member Role: Primary Care Nurse Name: Irais Grijalva RN Position: [facility] RN Member Role: Primary Care Nurse Name: Autumn Martinez RN Position: [facility] SN RN Member Role: Primary Care Nurse Name: Liz English RN Position: [facility] RN Member Role: Primary Care Nurse Name: Dora Williamson RN Position: [facility] RN Member Role: Primary Care Nurse Care Team Related Persons Name: KHUSHI CUNNINGHAM Address: home [address] [place] [address] Name: BHUPINDER VENEGAS Address: [address] [place] [address] Name: FELIPE FLORES Address: home [address] [place] [address] Name: ARNAV FLORES Address: home [address] [place] [address] Name: IRINA FLORES Address: home [address] [place] [address] Name: RUSLAN FLORES Address: home [address] [place] [address] Name: KAISER PLUNKETT Address: home [address] [place] [address]
--- OUTSIDE RECORDS SUMMARY | 2022-08-17 08:22 | XMS_ITS | Continuity of Care Document ---
Author Name Unknown Organization [facility] Address [address] [place] [address]- Care Team Providers Care Deck Mechanic Name Role Phone Louisa LANDRUM, Taras Fuentes Primary Care Physician Encounter [facility] [place] Date(s): 12/02/19 - 01/01/20 [facility] [address] [place] [address]- [facility] Attending Physician: Admtr, Ar8 Allergies, Adverse [...] Give n influenza virus vaccine, inactivated 01/22/15 Jos Ecarlos rded influenza virus vaccine, inactivated 12/13/13 Give [...] 01/04/07 Given Influenza Inactive (IM) (oldterm) 5 10/21/08 Given tetanus-diphtheria toxoids (Td) 08/03/05 Given 1Result Comment: [12/07/2017] [address]-93 2Result Comment: [12/21/2016] [facility]: [id number] 3Result Comment: [06/10/2015] #3 4Admin Note: per [...] 0 Refills, Maintenance, 07/03/19 13:59:00 EDT, Solution, [facility], 160, cm, 05/29/19 13:36:00 EDT, Height, 56.5, kg, 03... Start Date: 07/03/19 Status: Ordered albuterol CFC free 90 mcg/inh inhalation aerosol 2, puffs, Inhalation, 4 times a day, PRN, # 25 Gm, Refills 0, Tot. Refills 0, Maintenance, 07/07/2012:36:00 EDT, Aerosol, Route to Pharmacy Electronically, NCPDP_[id number], [facility], 160, cm, 07/08/19 13:03:00 EDT, Height, 56.... Start Date: 07/08/19 Status: Ordered amitriptyline 25 mg oral tablet 25 mg, 1, tablet, By Mouth, Daily at bedtime, # 30 tablet, Refills 5, Tot. Refills 5, Maintenance, 12/30/19 11:47:00 EDT, Route to Pharmacy Electronically, [facility], 160.02, cm, 12/02/19 [...] 60 capsule, 5 Refills, Maintenance, 12/26/19 12:06:00EDT, [facility], 160.02, cm, 12/02/19 6:45:00 EDT, Height, 67, kg, 09/11/19 11:20:00 EDT, Dry Weight Start Date: 12/26/19 Status: Ordered eletriptan 40 mg oral tablet 1 tablet = 40 mg, By Mouth, Daily, PRN for migraine headache, # 9 tablet, 5 Refills, Soft Stop, 07/16/19 9:23:00 EDT, Tablet, [facility], she has tried [...] 1 Refills, Soft Stop, 11/20/19 11:59:00 EDT, [facility], 160.02, cm, 11/15/19 [...] 02/25/19 16:55:00 EST, Route to Pharmacy Electronically, [facility], 158, cm, 02/14/19 7:55:00 EST, Height, 61.9, kg, 02/12/19 10:17:00... Start Date: 02/25/19 Status: Ordered montelukast 10 mg oral tablet 10 mg, 1, tablet, By Mouth, Daily in PM, # 90 tablet, Refills 3, Tot. Refills 3, Maintenance, 08/15/19 16:21:00 EDT, Route to Pharmacy Electronically, [facility], 160, cm, 08/15/19 13:45:00 EDT, Height, 56.5, kg, 05/29/19 13:36:00... Start Date: 08/15/19 Status: Ordered NuLYTELY with Flavor Packs oral powder for reconstitution 240 mL, By Mouth, Every 10 minutes, # 4,000 mL, 0 Refills, Maintenance, 11/15/19 10:29:00 EDT, REC Powder, [facility], 240 mL By Mouth Every 10 minutes, 160.02, cm, 11/15/19 10:05:00 EDT, Height, 67, kg, 09/11/19 11:20:00 EDT, Dry... Start Date: 11/15/19 Status: Ordered ondansetron 4 mg oral tablet, disintegrating 1 tablet = 4 mg, By Mouth, Every 8 hours, PRN as needed for nausea/vomiting, # 9 tablet, 0 Refills,Maintenance, 10/06/19 21:07:00 EDT, DIS Tablet, [facility] Start Date: 10/06/19 Stop Date: 10/09/19 Status: Ordered ProAir HFA 90 mcg/inh inhalation aerosol with adapter 2, puffs, Inhalation, Every 4 hours, PRN, # 8.5 Gm, Refills 2, Tot. Refills 2, Maintenance, 04/29/19 11:32:00 EST, Aerosol, Route to Pharmacy Electronically, NCPDP_[id number], [facility], 160, [...] 07/08/19 13:36:00 EDT, Route to Pharmacy Electronically, NCPDP_[id number], [facility], 160, cm, 07/08/19 13:03:00 ED... Start Date: 07/08/19 Status: Ordered Topamax 50 mg oral tablet 2 tablet = 100 mg, By Mouth, Daily at bedtime, # 60 tablet, 6 Refills, Maintenance, 11/04/19 11:08:00 EDT, Tablet, [facility], weaning zonegran off [...] Refills, Soft Stop, 11/25/19 21:26:00 EDT, Tablet, [facility], 160.02, cm, 11/15/19 10:05:00 EDT, Height,... Start Date: 11/25/19 Status: Ordered Zofran 4 mg oral tablet 1 tablet = 4 mg, By Mouth, Every 8 hours, PRN Nausea & Vomiting, # 30 tablet, 0 Refills, Maintenance, 09/30/19 11:23:00 EDT, [facility], 160.02, cm, 09/24/19 [...] perst 3folowed by mental health;recent hospitalization 4gyn 11486 6testing negative insulinoma 7likley dumping sydrome 8abnormal GTT ;sugar 36 two hours into test 9sees gi 10normal CT brain 11new 125.3 cm,right per ct scan recent;seeing gynecology soon;they will review 13vit d deficiency;correct 119963 15per endocrinology monitor 16correction refer GTT; 2 [...]
--- OUTSIDE RECORDS SUMMARY | 2022-08-17 08:22 | XMS_ITS | Continuity of Care Document ---
Author Name Unknown Organization [facility] Address [address] [facility], [address] Floor, [address] [place] [address]- Care Team Providers Care Mechanic Foreman Name Role Phone Taras Jasso MD Primary Care Physician Encounter [facility] [place] Date(s): 05/30/19 - 06/06/19 [facility] [address], [address], [address] [place] [address] [facility] Attending Physician: Yvon Alejandre MD Referring Physician: Taras Jasso MD Allergies, [...] toxoids (Td) 08/03/05 Given 1Result Comment: [12/07/2017] [id number] 2Result Comment: [12/21/2016] [facility]: [id number] 3Result Comment: [06/10/2015] #3 4Admin Note: per [...] 05/17/19 12:02:00 EDT, Route to Pharmacy Electronically, [facility], 160, cm, 05/16/19 10:27:00 EDT, [...] 02/25/19 16:55:00 EST, Route to Pharmacy Electronically, [facility], 158, cm, 02/14/19 7:55:00 EST, Height, 61.9, kg, 02/12/19 10:17:00... Start Date: 02/25/19 Status: Ordered ProAir HFA 90 mcg/inh inhalation aerosol with adapter 2, puffs, Inhalation, Every 4 hours, PRN, # 8.5 Gm, Refills 2, Tot. Refills 2, Maintenance, 04/29/19 11:32:00 EST, Aerosol, Route to Pharmacy Electronically, NCPDP_[id number], [facility], 160, cm, 04/29/19 10:47:00 EST, Height... Start Date: 04/29/19 Status: Ordered rizatriptan 10 mg oral tablet 1 tablet = 10 mg, By Mouth, Daily, PRN for migraine headache, # 9 tablet, 5 Refills, Soft Stop, 06/04/19 15:37:00 EDT, Tablet, [facility], sumatriptan ineffective. If insurance says [...] 5 Refills, Maintenance, 05/30/19 11:48:00 EDT, Capsule, [facility], 160, cm, 05/29/19 13:36:00 EDT, Height, 56.5, kg, 2... Start Date: 05/30/19 Stop Date: 11/26/19 Status: [...] perst 3folowed by mental health;recent hospitalization 4gyn 36464 6testing negative insulinoma 7likley dumping sydrome 8abnormal GTT ;sugar 36 two hours into test 9sees gi 10normal CT brain 11new 125.3 cm,right per ct scan recent;seeing gynecology soon;they will review 13vit d deficiency;correct [id number] 15per endocrinology monitor 16correction refer GTT; 2 hour glucose 36 17refer GGT 18seeing ortho;pre op 19asma,ama neg/cerulopalsmain wnl,AAT wnl 20Negative hep A antibody positive hep B surface antibody negative antigen negative hep C, normal ferritin 21ukltrasound Social History Social History Type Response Smoking Status Never smoker entered on: 02/20/13 Sex
--- OUTSIDE RECORDS SUMMARY | 2022-08-17 08:22 | XMS_ITS | Continuity of Care Document ---
Author Name Unknown Organization [facility] Address [address] [facility], [address], [address] [place] [address]- Care Team Providers Care Court Attendant Name Role Phone Louisa LANDRUM, Taras Fuentes Primary Care Physician [place] [facility] [place] 08/11/20 [facility] [address] [facility], 3rd Floor, [address] [place] [address]- Attending Physician: Shell Vargas MD Allergies, Adverse Reactions, [...] toxoids (Td) 08/03/05 Given 1Result Comment: [12/07/2017] [address]-37 2Result Comment: [12/21/2016] [facility]: 68632-346-22 3Result Comment: [06/10/2015] #3 4Admin Note: per pt 5Admin Note: given in clinic Medications acarbose 25 mg oral tablet 1 tablet = 25 mg, By Mouth, 3 times a day, Take 1 tablet 3 times daily with meals. Add to 50mg dosefor total of 75mg 3 times daily. E11.65, # 270 tablet, 3 Refills, Maintenance, 07/15/20 12:23:00 EDT, Tablet, [facility], Partial... Start Date: 07/15/20 [...] 30 tablet, 5 Refills, Maintenance, 07/22/20 8:03:00EDT, [facility], Partial fill [...] 11:32:00 EST, Aerosol, Route to Pharmacy Electronically, [id number]_[id number], [facility], 160, cm, 04/29/19 10:47:00 EST, Height... Start Date: 04/29/19 Status: Ordered rifAXIMin 550 mg oral tablet 1 tablet = 550 mg, By Mouth, 3 times a day, # 42 tablet, 0 Refills, Maintenance, 07/14/20 13:37:00 EDT, Tablet, [facility], Partial fill upon patient request if the prescription is for a schedule II opioid drug., 158.02, cm, 07/06... Start Date: 07/14/20 Stop Date: 07/28/20 Status: Ordered Topamax 50 mg oral tablet 2 tablet = 100 mg, By Mouth, Daily at bedtime, # 60 tablet, 6 Refills, Maintenance, 08/04/20 11:44:00 EDT, Tablet, [facility], 158.02, cm, 07/06/20 6:49:00 [...] 6 Refills, Soft Stop, 08/04/20 11:37:00 EDT, [facility], Partial fill upon patient request if the prescription is for a schedule II opioid drug., 158.02, cm, 07/06/20 6:49:00 EDT, H... Start Date: 08/04/20 Stop Date: 03/02/21 Status: Ordered vancomycin 125 mg oral capsule See Instructions, 1cap PO 4x a day x10d THEN 1cap PO 2x a day x 7d THEN 1cap PO 1x a day x 7d THEN 1cap PO every other day for 2 weeks then stop, # 68 capsule, 0 Refills, Maintenance, 06/13/20 14:10:00 EDT, Capsule, [facility],... Start Date: 06/13/20 Status: [...] 1resolved after weight loss 2chronic perst 3gyn 61655 5testing negative insulinoma 6likley dumping sydrome 7abnormal GTT ;sugar 36 two hours into test 8sees gi 9normal CT brain 10new 115.3 cm,right per ct scan recent;seeing gynecology soon;they will review 12vit d deficiency;correct 454771 14per endocrinology monitor 15correction refer GTT; 2 hour glucose 36 16refer GGT 17seeing ortho;pre op 18asma,ama neg/cerulopalsmain wnl,AAT wnl 19Negative hep A antibody positive hep B surface antibody negative antigen negative hep C, normal ferritin 20ukltrasound Social History Social History Type Response Smoking Status Never smoker entered on: 02/20/13 Sex
--- OUTSIDE RECORDS SUMMARY | 2022-08-17 08:22 | XMS_ITS | Continuity of Care Document ---
Author Name Unknown Organization [facility] Address [address] [place] [address]- Care Team Providers Care Roll Icer Name Role Phone Eran Sue JOHNSON Primary Care Physician Encounter [facility] [place] Date(s): 04/30/21 - 05/30/21 [facility] [address] [place] [address]- [place] Allergies, Adverse Reactions, Alerts Substance Reaction Severity Status Dust Allergy to pollen Active Pollen seasonal allergies respiratory symptoms Active Incruse Ellipta 1 lightheaded and migraine Active 1dizzy Immunizations Given and Recorded Vaccine Date Status Refusal Reason SARS-CoV-2 mRNA ([id number]-[id number]) vax 05/01/21 Recorded influenza virus vaccine, inactivated [...] toxoids (Td) 08/03/05 Given 1Result Comment: [12/07/2017] [address]-07 2Result Comment: [12/21/2016] [facility]: 07618-025-98 3Result Comment: [06/10/2015] #3 4Admin Note: per [...] 3 Refills, Maintenance, 02/03/21 8:34:00 EST, Tablet, [facility], Partial fill upon patient request if the prescript... Start Date: 02/03/21 Status: Ordered acarbose 50 mg oral tablet 1 tablet = 50 mg, By Mouth, 3 times a day, Take 1 tab (plus 1 25mg tab), 3 times daily with meals.,# 270 tablet, 3 Refills, Maintenance, 02/03/21 8:34:00 EST, Tablet, [facility], Partial fill upon patient request if the prescript... Start Date: 02/03/21 Status: Ordered Baqsimi One Pack 3 mg nasal powder See Instructions, 3 mg Once intrasnasally for severe hypoglycemia, # 2 each, 3 Refills, Soft Stop, 08/28/20 10:36:00 EDT, [facility], Partial fill upon patient request [...] Refills, Maintenance, 03/03/21 16:42:00 EST, REC Powder, [facility], Partial fill upon patient request [...] per PCP, # 30 mL, 1 Refills, [facility], 158, cm, 04/09/21 8:13:00 EST, Height, 80.6, kg, 03/08/21 12:18:00 EST, Dry Weight Start Date: 04/30/21 Status: Ordered Dexilant 60 mg oral delayed release capsule 1 capsule = 60 mg, By Mouth, 2 times a day, 30 min before meal, # 60 capsule, 5 Refills, Maintenance, 04/16/21 14:29:00 EST, CR Capsule, [facility], Partial fill upon patient request if the prescription is for a schedule II opioi... Start Date: 04/16/21 Status: Ordered Emgality Prefilled Pen 120 mg/mL subcutaneous solution = 240 mg, Subcutaneous Injection, Once, Loading Dose, # 2 kit, 0 Refills, Soft Stop, 03/16/21 16:05:00 EST, [facility], Partial fill upon patient request if the prescription is for a schedule II opioid drug., 158, cm, 03/11/21 9:1... Start Date: 03/16/21 Status: Ordered EPINEPHrine 1 mg/mL injectable solution 0.3 mL = 0.3 mg, Intramuscular, Once, # 1 mL, 1 Refills, Soft Stop, 03/08/21 15:07:00 EST, Solution, [facility], Partial fill upon patient request [...] 1 Refills, Soft Stop, 11/20/19 11:59:00 EDT, [facility], 160.02, cm, 11/15/19 10:05:00 EDT, Height, 67, kg, 09/11/19 11:20:00 EDT, Dry Weight Start Date: 11/20/19 Status: Ordered Lidocaine Viscous 2% solution 5 mL = 0.1 Gm, By Mouth, 4 times a day, PRN for epigastric pain, # 200 mL, 1 Refills, Maintenance, 04/06/21 9:45:00 EST, Solution, [facility], Partial fill upon patient request if the prescription is for a schedule II opioid drug.... Start Date: 04/06/21 Status: Ordered loratadine 10 mg oral tablet 10 mg, 1, tablet, By Mouth, Daily, # 90 tablet, Refills 0, Tot. Refills 0, Maintenance, 05/24/21 11:12:00 EDT, Route to Pharmacy Electronically, [facility], 158, cm, 05/14/21 7:52:00 EST, Height, 80.6, kg, 03/08/21 12:18:00 EST, D... Start Date: 05/24/21 Status: Ordered meclizine 25 mg oral tablet See Instructions, PRN for dizziness, Take 1 tablet every 8 hours as needed for dizziness, # 15 tablet, 0 Refills, Maintenance, 11/03/20 7:49:00 EDT, Tablet, [facility], Partial fill upon patient request if the prescription is for... Start Date: 11/03/20 Status: Ordered montelukast 10 mg oral tablet 10 mg, 1, tablet, By Mouth, Daily in PM, # 90 tablet, Refills 1, Tot. Refills 1, Maintenance, 04/23/21 12:32:00 EST, Route to Pharmacy Electronically, [facility], 158, cm, 04/09/21 8:13:00 EST, [...] 6 Refills, Maintenance, 12/10/20 12:36:00 EDT,DIS Tablet, [facility], has t... Start Date: 12/10/20 Stop Date: 07/08/21 Status: Ordered [place] 0.65% nasal spray 2 sprays, Nares, Both, 4 times a day, # 1 each, 3 Refills, Maintenance, 05/14/21 11:40:00 EST, [facility], Partial fill upon patient request if the prescription is for a scheduleII opioid drug., 2 sprays Nares, Both 4 times a day... Start Date: 05/14/21 Status: Ordered ProAir HFA 90 mcg/inh inhalation aerosol with adapter 2, puffs, Inhalation, Every 4 hours, PRN, # 8.5 Gm, Refills 1, Tot. Refills 1, Maintenance, 05/13/21 19:25:00 EST, Aerosol, Route to Pharmacy Electronically, NCPDP_[id number], [facility], 158, cm, 05/06/21 6:58:00 EST, Height, 80.... Start Date: 05/13/21 Status: Ordered Reclast = 5 mg, IV Infusion, Once, 0 Refills, Maintenance, 11/06/20 10:24:00 EDT, administered at [facility] 10/2020 Start Date: 11/06/20 Status: [...] Gm, Refills 11, Route to Pharmacy Electronically, NCPDP_[id number], [facility], 158.02, cm, 11/13/20 8:38:00 EDT, [...] 1resolved after weight loss 2chronic perst 3gyn 51053 5testing negative insulinoma 6likley dumping sydrome 7abnormal GTT ;sugar 36 two hours into test 8sees gi 9normal CT brain 10new 115.3 cm,right per ct scan recent;seeing gynecology soon;they will review 12vit d deficiency;correct 843882 14per endocrinology monitor 15correction refer GTT; 2 hour glucose 36 16refer GGT 17seeing ortho;pre op 18asma,ama neg/cerulopalsmain wnl,AAT wnl 19Negative hep A antibody positive hep B surface antibody negative antigen negative hep C, normal ferritin 20ukltrasound Social History Social History Type Response Smoking Status Never smoker entered on: 02/20/13 Sex
--- OUTSIDE RECORDS SUMMARY | 2022-08-17 08:22 | XMS_ITS | Continuity of Care Document ---
Author Name Unknown Organization [facility] Address [address] [place] [address]- Care Team Providers Care Supervisor Asbestos Removal Name Role Phone Louisa LANDRUM, Taras Fuentes Primary Care Physician Encounter [facility] [place] Date(s): 04/11/20 - 08/09/20 [facility] [address] [place] [address]- Attending Physician: Eran JOHNSON, Sue Dahl Allergies, Adverse Reactions, Alerts Substance Reaction Severity [...] toxoids (Td) 08/03/05 Given 1Result Comment: [12/07/2017] [id number] 2Result Comment: [12/21/2016] [facility]: 54427-491-52 3Result Comment: [06/10/2015] #3 4Admin Note: per pt 5Admin Note: given in clinic Medications acarbose 25 mg oral tablet 1 tablet = 25 mg, By Mouth, 3 times a day, Take 1 tablet 3 times daily with meals. Add to 50mg dosefor total of 75mg 3 times daily. E11.65, # 270 tablet, 3 Refills, Maintenance, 07/15/20 12:23:00 EDT, Tablet, [facility], Partial... Start Date: 07/15/20 Status: [...] 30 tablet, 5 Refills, Maintenance, 07/22/20 8:03:00EDT, [facility], Partial fill upon [...] 11:32:00 EST, Aerosol, Route to Pharmacy Electronically, NCPDP_[id number], [facility], 160, cm, 04/29/19 10:47:00 EST, Height... Start Date: 04/29/19 Status: Ordered rifAXIMin 550 mg oral tablet 1 tablet = 550 mg, By Mouth, 3 times a day, # 42 tablet, 0 Refills, Maintenance, 07/14/20 13:37:00 EDT, Tablet, [facility], Partial fill upon patient request if the prescription is for a schedule II opioid drug., 158.02, cm, 07/06... Start Date: 07/14/20 Stop Date: 07/28/20 Status: Ordered Topamax 50 mg oral tablet 2 tablet = 100 mg, By Mouth, Daily at bedtime, # 60 tablet, 6 Refills, Maintenance, 08/04/20 11:44:00 EDT, Tablet, [facility], 158.02, cm, 07/06/20 6:49:00 EDT, [...] 6 Refills, Soft Stop, 08/04/20 11:37:00 EDT, [facility], Partial fill upon [...] 1resolved after weight loss 2chronic perst 3gyn 04358 5testing negative insulinoma 6likley dumping sydrome 7abnormal GTT ;sugar 36 two hours into test 8sees gi 9normal CT brain 10new 115.3 cm,right per ct scan recent;seeing gynecology soon;they will review 12vit d deficiency;correct 622068 14per endocrinology monitor 15correction refer GTT; 2 hour glucose 36 16refer GGT 17seeing ortho;pre op 18asma,ama neg/cerulopalsmain wnl,AAT wnl 19Negative hep A antibody positive hep B surface antibody negative antigen negative hep C, normal ferritin 20ukltrasound Social History Social History Type Response Smoking Status Never smoker entered on: 02/20/13 Sex
--- OUTSIDE RECORDS SUMMARY | 2022-08-17 08:22 | XMS_ITS | Continuity of Care Document ---
Author Name Unknown Organization [facility] Address [address] [place] [address]- Care Team Providers Care Conductor Orchestra Name Role Phone Eran ELIZABETH, Sue Dahl Primary Care Physician Encounter [facility] [place] Date(s): 05/05/22 - 07/31/[address] [address] Attending Physician: Thanh LANDRUM, Davion Smith Allergies, Adverse Reactions, Alerts Substance Reaction Severity Status Dust Allergy to pollen Active Pollen seasonal allergies respiratory symptoms Active Incruse Ellipta 1 lightheaded and migraine Active 1dizzy Immunizations Given and Recorded Vaccine Date Status Refusal Reason tetanus-diphtheria toxoids (Td) 1 07/28/22 Given tetanus-diphtheria toxoids (Td) 08/03/05 Given pneumococcal 20-valent conjugate vaccine 2 07/28/22 Given [id number] 12y+ bivalent booster vax 3 12/24/21 Given influenza virus vaccine, inactivated 4 12/24/21 Gi vickie influenza virus vaccine, inactivated 12/11/20 Give n influenza virus vaccine, inactivated 12/02/19 Give n influenza virus vaccine, inactivated 11/21/18 Give n influenza virus vaccine, inactivated 5 12/06/17 Gi vickie influenza virus vaccine, inactivated 6 12/21/16 Gi vickie influenza virus vaccine, inactivated 12/31/15 Give n influenza virus vaccine, inactivated 01/22/15 Jose Carlos rded influenza virus vaccine, inactivated 12/13/13 Give n influenza virus vaccine, inactivated 12/10/12 Give n influenza virus vaccine, inactivated 02/08/11 Give n SARS-CoV-2 mRNA ([id number]) vax 05/01/21 Recorded zoster vaccine, inactivated 11/03/20 Recorded zoster vaccine, inactivated 08/10/20 Recorded SARS-CoV-2 (COVID-19) mRNA BNT-162b2 vac 04/09/20 Recorded SARS-CoV-2 (COVID-19) mRNA BNT-162b2 vac 03/19/20 Recorded Hepatitis A Adult Vaccine 10/17/16 Given hepatitis B adult vaccine 7 06/10/15 Given hepatitis B adult vaccine 08/11/14 Given hepatitis B adult vaccine 07/09/14 Given pneumococcal 23-valent vaccine 08/19/13 Given tetanus/diphtheria/pertussis, acel(Tdap) 11/28/11 Given FluLaval (oldterm) 11/28/11 Given Influenza Virus Vaccine (oldterm) 8 03/24/09 Given Influenza Virus Vaccine (oldterm) 01/04/07 Given Influenza Inactive (IM) (oldterm) 9 12/25/07 Given 1Result Comment: [id number] 2Result Comment: [id number] 3Result Comment: [address]-9 4Result Comment: 19243-368-54 5Result Comment: [12/07/2017] [address]-87 6Result Comment: [12/21/2016] [facility]: [id number] 7Result Comment: [06/10/2015] #3 8Admin Note: per pt 9Admin Note: given in clinic Medications acetaminophen 500 [...] Dry Weight Start Date: 11/03/21 Status: Ordered cetirizine 10 mg oral tablet 1 tablet, By Mouth, Daily, # 30 tablet, 5 Refills, Maintenance, 07/28/22 13:34:00 EDT, [facility], 158, cm, 07/28/22 13:14:00 EDT, Height, 64.8, kg, 03/24/22 12:21:00 EST, Dry Weight Start Date: 07/28/22 Status: Ordered clonazePAM 1 mg oral tablet [...] had follow up just now, doing great, Keven, albertina... Start Date: 07/14/22 Status: Ordered EPINEPHrine 1 [...] 0 Refills, Maintenance, 04/09/22 15:16:00 EST,Chew Tablet, [id number], Partial fill upon patient request if the [...] Refills, Maintenance, 04/09/22 15:16:00 EST, REC Powder, [facility] #[id number], Partial fill upon patient request if the [...] 0 Refills, Maintenance, 04/09/22 15:17:00 EST, Capsule, [facility] #[id number], Partial fill upon patient request if the prescription is for a schedule II opioid drug., 1 capsule By Mouth Daily in P... Start Date: 04/09/22 Status: Ordered Symbicort 160mcg/4.5mcg Inhaler 2, puffs, Inhalation, 2 times a day, rinse mouth and throat after use, # 10.2 Gm, Refills 2, Tot. Refills 2, Maintenance, 06/10/22 20:48:00 EDT, Route to Pharmacy Electronically, NCPDP_[id number], [facility], 158, cm, 06/07/22 [...] Chronic sinusitis sx September 2019 Confirmed Active Diaphragmatic hernia Confirmed Active EKG abnormality qs v1 chronic Confirmed Active Esophageal reflux (GERD) egd 2017 Confirmed Active Anxiety disorder Confirmed Active Genital herpes 1 Confirmed 06/18/15 Active H/O laparoscopic adjustable gastric banding 2007/Feb 2021 2 Confirmed Active Hypoglycemia 3, 4, 5 Confirmed Active Spondylosis of lumbar spine MRI 2018 sx 2018 Confirmed Active Adnexal mass Confirmed Active Migraines 6, 7 Confirmed Active Asthma, mild persistent 8, 9 Confirmed Active Orthostatic hypotension Confirmed Active Osteoporosis S/P Reclast Confirmed 07/03/20 Active Ovarian cyst 10 Confirmed Active Personal history of gastric bypass ? 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 Active Impingement syndrome of shoulder 16 Confirmed Active Fatty liver 17, 18, 19 Confirmed 10/09/16 Active Vitamin D deficiency Confirmed Active 1gyn 93789 3testing negative insulinoma 4likley dumping sydrome 5abnormal GTT ;sugar 36 two hours into test 6normal CT brain 7new 8resolved after weight loss 9chronic perst 105.3 cm,right per ct scan recent;seeing gynecology soon;they will review 11vit d deficiency;correct 912162 13per endocrinology monitor 14correction refer GTT; 2 hour glucose 36 15refer GGT 16seeing ortho;pre op 17asma,ama neg/cerulopalsmain wnl,AAT wnl 18Negative hep A antibody positive hep B surface antibody negative antigen negative hep C, normal ferritin 19ukltrasound Social History Social History Type Response Smoking Status Never smoker entered on: 02/20/13 Sex Patient Care team information Care Team Personnel Name: Caitlyn Mcgee RN Position: [facility] RN Member Role: Primary Care Nurse Name: Sue Barlilas NP Position: [facility] PCO Associate Professional Member Role: PCP Address: Address: [address] [place] [address] Name: Andria Guadalupe RN Position: [facility] SN RN Member Role: Primary Care Nurse Name: Liz Martin RN Position: [facility] RN Member Role: Primary Care Nurse Name: Ambreen Mcmahon RN Position: [facility] RN Member Role: Primary Care Nurse Name: Irais Grijalva RN Position: [facility] RN Member Role: Primary Care Nurse Name: Autumn Martinez RN Position: [facility] SN RN Member Role: Primary Care Nurse Name: Liz English RN Position: [facility] RN Member Role: Primary Care Nurse Name: Dora Williamson RN Position: [facility] RN Member Role: Primary Care Nurse Care Team Related Persons Name: KHUSHI CUNNINGHAM Address: home [address] [place] [address] Name: BHUPINDER VENGEAS Address: home [address] [place] [address] Name: FELIPE FLORES Address: home [address] [place] [address] Name: ARNAV FLORES Address: home [address] [place] [address] Name: IRINA FLORES Address: home [address] [place] [address] Name: RUSLAN FLORES Address: home [address] [place] [address] Name: KAISER PLUNKETT Address: home [address] [place] [address]
--- OUTSIDE RECORDS SUMMARY | 2022-08-17 08:22 | XMS_ITS | Continuity of Care Document ---
Author Name Unknown Organization [facility] Address Unknown Care Team Providers Care Provider Engagement Executive Name Role Phone Louisa LANDRUM, Taras Fuentes Primary Care Physician Encounter [facility] Date(s): 12/02/20 - 01/01/21 [facility] Allergies, Adverse Reactions, Alerts Substance Reaction [...] toxoids (Td) 08/03/05 Given 1Result Comment: [12/07/2017] [address]-50 2Result Comment: [12/21/2016] [facility]: [id number] 3Result Comment: [06/10/2015] #3 4Admin Note: per pt 5Admin Note: given in clinic Medications acarbose 50 mg oral tablet 1 tablet = 50 mg, By Mouth, 3 times a day, Take 3 times daily with meals. E11.65, # 90 tablet, 5 Refills, Maintenance, 07/13/20 16:29:00 EDT, Tablet, [facility], Partial fill upon patient request if [...] Maintenance, 07/03/19 13:59:00 EDT, Solution, [facility], 160, cm, 05/29/19 13:36:00 EDT, Height, 56.5, kg, 03... Start Date: 07/03/19 Status: Ordered Baqsimi One Pack 3 mg nasal powder See Instructions, 3 mg Once intrasnasally for severe hypoglycemia, # 2 each, 3 Refills, Soft Stop, 08/28/20 10:36:00 EDT, [facility], Partial fill upon patient request if [...] Maintenance, 11/06/20 10:28:00 EDT, Tablet, [facility], Replaces loratidine, 158.02, cm, 11/06/20 10:04:00 [...] Soft Stop, 11/20/19 11:59:00 EDT, [facility], 160.02, cm, 11/15/19 10:05:00 EDT, Height, [...] Maintenance, 11/03/20 7:49:00 EDT, Tablet, [facility], Partial fill upon patient request if the prescription is for... Start Date: 11/03/20 Status: Ordered montelukast 10 mg oral tablet 10 mg, 1, tablet, By Mouth, Daily in PM, # 90 tablet, Refills 3, Tot. Refills 3, Maintenance, 08/15/19 16:21:00 EDT, Route to Pharmacy Electronically, [facility], 160, cm, 08/15/19 13:45:00 EDT, Height, [...] Maintenance, 12/10/20 12:36:00 EDT,DIS Tablet, [facility], has t... Start Date: 12/10/20 Stop Date: 07/08/21 Status: Ordered [place] 0.65% nasal spray 2 sprays, Nares, Both, 4 times a day, # 1 each, 0 Refills, Maintenance, 10/30/20 11:34:00 EDT, [facility], Partial fill upon patient request if the prescription is for a scheduleII opioid drug., 2 sprays Nares, Both 4 times a day... Start Date: 10/30/20 Status: Ordered ProAir HFA 90 mcg/inh inhalation aerosol with adapter 2, puffs, Inhalation, Every 4 hours, PRN, # 8.5 Gm, Refills 2, Tot. Refills 2, Maintenance, 04/29/19 11:32:00 EST, Aerosol, Route to Pharmacy Electronically, NCPDP_[id number], [facility], 160, cm, 04/29/19 10:47:00 EST, Height... Start Date: 04/29/19 Status: Ordered Reclast = 5 mg, IV Infusion, Once, 0 Refills, Maintenance, 11/06/20 10:24:00 EDT, administered at [facility] 10/2020 Start Date: 11/06/20 Status: Ordered Symbicort 160mcg/4.5mcg Inhaler 2, puffs, Inhalation, 2 times a day, with spacer., # 10.2 Gm, Refills 11, Route to Pharmacy Electronically, NCPDP_[id number], [facility], 158.02, cm, 11/13/20 8:38:00 EDT, Height, [...] 1resolved after weight loss 2chronic perst 3gyn 12583 5testing negative insulinoma 6likley dumping sydrome 7abnormal GTT ;sugar 36 two hours into test 8sees gi 9normal CT brain 10new 115.3 cm,right per ct scan recent;seeing gynecology soon;they will review 12vit d deficiency;correct 602457 14per endocrinology monitor 15correction refer GTT; 2 hour glucose 36 16refer GGT 17seeing ortho;pre op 18asma,ama neg/cerulopalsmain wnl,AAT wnl 19Negative hep A antibody positive hep B surface antibody negative antigen negative hep C, normal ferritin 20ukltrasound Social History Social History Type Response Smoking Status Never smoker entered on: 02/20/13 Sex
--- OUTSIDE RECORDS SUMMARY | 2022-08-17 08:22 | XMS_ITS | Continuity of Care Document ---
Author Name Unknown Organization [facility] Address [address] [place] [id number]- Care Team Providers Care Crawler Crane Operator Name Role Phone Louisa LANDRUM, Taras Fuentes Primary Care Physician Encounter [facility] Date(s): 05/11/20 - 06/10/20 [facility] [address] [place] [id number] Allergies, Adverse Reactions, Alerts Substance Reaction [...] toxoids (Td) 08/03/05 Given 1Result Comment: [12/07/2017] [address]-62 2Result Comment: [12/21/2016] [facility]: 96859-922-63 3Result Comment: [06/10/2015] #3 4Admin Note: per [...] 0 Refills, Maintenance, 07/03/19 13:59:00 EDT, Solution, [facility], 160, cm, 05/29/19 13:36:00 [...] 60 capsule, 5 Refills, Maintenance, 05/07/20 15:54:00EST, [facility], 160.02, cm, 05/01/20 9:18:00 [...] 02/25/19 16:55:00 EST, Route to Pharmacy Electronically, [facility], 158, cm, 02/14/19 7:55:00 EST, Height, 61.9, kg, 02/12/19 10:17:00... Start Date: 02/25/19 Status: Ordered montelukast 10 mg oral tablet 10 mg, 1, tablet, By Mouth, Daily in PM, # 90 tablet, Refills 3, Tot. Refills 3, Maintenance, 08/15/19 16:21:00 EDT, Route to Pharmacy Electronically, [facility], 160, cm, 08/15/19 13:45:00 EDT, Height, 56.5, kg, 05/29/19 13:36:00... Start Date: 08/15/19 Status: Ordered ProAir HFA 90 mcg/inh inhalation aerosol with adapter 2, puffs, Inhalation, Every 4 hours, PRN, # 8.5 Gm, Refills 2, Tot. Refills 2, Maintenance, 04/29/19 11:32:00 EST, Aerosol, Route to Pharmacy Electronically, NCPDP_[id number], [facility], 160, cm, 04/29/19 10:47:00 EST, Height... Start Date: 04/29/19 Status: Ordered Topamax 50 mg oral tablet See Instructions, take 1 tab in am and 2 tab at bedtime. If AM dose causes bad sedation, add to HS dose., # 90 tablet, 6 Refills, Maintenance, 03/12/20 11:09:00 EST, Tablet, [facility], weaning zonegran off by 25mg every 2 days t... Start Date: 03/12/20 Status: Ordered ubrogepant 100 mg oral tablet 1 tablet = 100 mg, By Mouth, Daily, # 10 tablet, 6 Refills, Soft Stop, 03/12/20 11:04:00 EST, [facility], [...] perst 3folowed by mental health;recent hospitalization 4gyn 9[address]85 6testing negative insulinoma 7likley dumping sydrome 8abnormal GTT ;sugar 36 two hours into test 9sees gi 10normal CT brain 11new 125.3 cm,right per ct scan recent;seeing gynecology soon;they will review 13vit d deficiency;correct [id number] 15per endocrinology monitor 16correction refer GTT; 2 hour glucose 36 17refer GGT 18seeing ortho;pre op 19asma,ama neg/cerulopalsmain wnl,AAT wnl 20Negative hep A antibody positive hep B surface antibody negative antigen negative hep C, normal ferritin 21ukltrasound Social History Social History Type Response Smoking Status Never smoker entered on: 02/20/13 Sex
--- OUTSIDE RECORDS SUMMARY | 2022-08-17 08:22 | XMS_ITS | Continuity of Care Document ---
Author Name Unknown Organization [facility] Address [address] [place] [address]- Care Team Providers Care Clay Transporter Name Role Phone Louisa LANDRUM, Taras Fuentes Primary Care Physician [phone] [place] [facility] [place] 07/01/19 - 07/08/19 [facility] [address] [place] [address]- [facility] Encounter Diagnosis Asthma exacerbation(Discharge Diagnosis) - 07/01/19 Attending Physician: Not on Staff, Attending MD [...] toxoids (Td) 08/03/05 Given 1Result Comment: [12/07/2017] [address]-84 2Result Comment: [12/21/2016] [facility]: 16932-444-93 3Result Comment: [06/10/2015] #3 4Admin Note: per [...] 0 Refills, Maintenance, 07/03/19 13:59:00 EDT, Solution, [facility], 160, cm, 05/29/19 13:36:00 EDT, Height, 56.5, kg, 03... Start Date: 07/03/19 Status: Ordered albuterol CFC free 90 mcg/inh inhalation aerosol 2, puffs, Inhalation, 4 times a day, PRN, # 25 Gm, Refills 0, Tot. Refills 0, Maintenance, 07/07/2012:36:00 EDT, Aerosol, Route to Pharmacy Electronically, NCPDP_[id number], [facility], 160, cm, 07/08/19 13:03:00 EDT, Height, 56.... Start Date: 07/08/19 Status: Ordered Dexilant 60 mg oral delayed release capsule 1 capsule = 60 mg, By Mouth, 2 times a day, # 60 capsule, 5 Refills, Maintenance, 12/31/18 11:53:09EDT Start Date: 12/31/18 Status: Ordered famotidine 20 mg oral tablet 20 mg, 1, tablet, By Mouth, Daily at bedtime, # 30 tablet, Refills 5, Tot. Refills 5, Maintenance, 05/17/19 12:02:00 EDT, Route to Pharmacy Electronically, [facility], 160, cm, 05/16/19 10:27:00 EDT, Height, [...] 02/25/19 16:55:00 EST, Route to Pharmacy Electronically, [facility], 158, cm, 02/14/19 7:55:00 EST, Height, 61.9, kg, 02/12/19 10:17:00... Start Date: 02/25/19 Status: Ordered montelukast 10 mg oral tablet 10 mg, 1, tablet, By Mouth, Daily in PM, # 30 tablet, Refills 0, Tot. Refills 0, Maintenance, 07/08/19 13:36:00 EDT, Route to Pharmacy Electronically, [facility], 160, cm, 07/08/19 13:03:00 EDT, Height, 56.5, kg, 05/29/19 13:36:00... Start Date: 07/08/19 Status: Ordered ProAir HFA 90 mcg/inh inhalation aerosol with adapter 2, puffs, Inhalation, Every 4 hours, PRN, # 8.5 Gm, Refills 2, Tot. Refills 2, Maintenance, 04/29/19 11:32:00 EST, Aerosol, Route to Pharmacy Electronically, NCPDP_[id number], [facility], 160, cm, 04/29/19 10:47:00 EST, Height... Start Date: 04/29/19 Status: Ordered rizatriptan 10 mg oral tablet 1 tablet = 10 mg, By Mouth, Daily, PRN for migraine headache, # 9 tablet, 5 Refills, Soft Stop, 06/04/19 15:37:00 EDT, Tablet, [facility], sumatriptan ineffective. If insurance says no [...] 07/08/19 13:36:00 EDT, Route to Pharmacy Electronically, NCPDP_[id number], [facility], 160, cm, 07/08/19 13:03:00 ED... Start Date: 07/08/19 Status: Ordered Trintellix 10 mg oral tablet 1 tablet = 10 mg, By Mouth, Daily, 0 Refills, Maintenance, 05/12/19 9:31:00 EDT Start Date: 05/12/19 Status: Ordered Zonegran 25 mg oral capsule 3 capsule = 75 mg, By Mouth, 2 times a day, after weaning off topamax start this medication, # 180 capsule, 5 Refills, Maintenance, 05/30/19 11:48:00 EDT, Capsule, [facility], 160, cm, 05/29/19 13:36:00 EDT, Height, [...] perst 3folowed by mental health;recent hospitalization 4gyn [address] 6testing negative insulinoma 7likley dumping sydrome 8abnormal GTT ;sugar 36 two hours into test 9sees gi 10normal CT brain 11new 125.3 cm,right per ct scan recent;seeing gynecology soon;they will review 13vit d deficiency;correct 113759 15per endocrinology monitor 16correction refer GTT; 2 hour glucose 36 17refer GGT 18seeing ortho;pre op 19asma,ama neg/cerulopalsmain wnl,AAT wnl 20Negative hep A antibody positive hep B surface antibody negative antigen negative hep C, normal ferritin 21ukltrasound Diagnosis Diagnosis Type Effective Dates Health Status Clinical Service Informant Asthma exacerbation Discharge Diagnosis 07/01/19 Social History Social History Type Response Smoking Status Never smoker entered on: 02/20/13 Sex
--- OUTSIDE RECORDS SUMMARY | 2022-08-17 08:22 | XMS_ITS | Continuity of Care Document ---
Author Name Unknown Organization [facility] Address [address] [place] [address] sandi, [address] [place] [address]- Care Team Providers Care Senior Compliance Analyst Name Role Phone Louisa LANDRUM, Taras Fuentes Primary Care Physician Encounter [facility] Date(s): 08/18/20 - 09/17/20 [facility] [address] [place] [address] Drive, [address] [place], [place] [address] Attending Physician: Konrad Curtis Admitting Physician: AdmtrKonrad Referring Physician: Admtr, Ar8 Allergies, Adverse Reactions, Alerts [...] toxoids (Td) 08/03/05 Given 1Result Comment: [12/07/2017] [address]-89 2Result Comment: [12/21/2016] [facility]: 55673-206-52 3Result Comment: [06/10/2015] #3 4Admin Note: per pt 5Admin Note: given in clinic Medications acarbose 50 mg oral tablet 1 tablet = 50 mg, By Mouth, 3 times a day, Take 3 times daily with meals. E11.65, # 90 tablet, 5 Refills, Maintenance, 07/13/20 16:29:00 EDT, Tablet, [facility], Partial fill upon patient request if [...] 0 Refills, Maintenance, 07/03/19 13:59:00 EDT, Solution, [facility], 160, cm, 05/29/19 13:36:00 EDT, Height, 56.5, kg, 03... Start Date: 07/03/19 Status: Ordered amitriptyline 50 mg oral tablet 1 tablet = 50 mg, By Mouth, Daily at bedtime, # 30 tablet, 5 Refills, Maintenance, 07/22/20 8:03:00EDT, [facility], Partial fill upon patient request if the prescription is for a schedule II opioid drug., 158.02, cm, 07/06/20 6:4... Start Date: 07/22/20 Status: Ordered Baqsimi One Pack 3 mg nasal powder See Instructions, 3 mg Once intrasnasally for severe hypoglycemia, # 2 each, 3 Refills, Soft Stop, 08/28/20 10:36:00 EDT, [facility], Partial fill upon patient request if [...] 1 Refills, Soft Stop, 11/20/19 11:59:00 EDT, [facility], 160.02, cm, 11/15/19 10:05:00 EDT, Height, [...] 02/25/19 16:55:00 EST, Route to Pharmacy Electronically, [facility], 158, cm, 02/14/19 7:55:00 EST, Height, 61.9, kg, 02/12/19 10:17:00... Start Date: 02/25/19 Status: Ordered montelukast 10 mg oral tablet 10 mg, 1, tablet, By Mouth, Daily in PM, # 90 tablet, Refills 3, Tot. Refills 3, Maintenance, 08/15/19 16:21:00 EDT, Route to Pharmacy Electronically, [facility], 160, cm, 08/15/19 13:45:00 EDT, Height, [...] 0 Refills, Maintenance, 08/27/20 9:45:00 EDT, Capsule, [facility], Partial fill upon patient request if the prescription is for a schedule II opioid drug., 158.02, cm, 08/27/20 9:2... Start Date: 08/27/20 Stop Date: 09/26/20 Status: Ordered ProAir HFA 90 mcg/inh inhalation aerosol with adapter 2, puffs, Inhalation, Every 4 hours, PRN, # 8.5 Gm, Refills 2, Tot. Refills 2, Maintenance, 04/29/19 11:32:00 EST, Aerosol, Route to Pharmacy Electronically, NCPDP_[id number], [facility], 160, cm, 04/29/19 10:47:00 EST, Height... Start Date: 04/29/19 Status: Ordered Symbicort 160mcg/4.5mcg Inhaler 2, puffs, Inhalation, 2 times a day, Refills 0, Maintenance, 08/27/20 9:43:00 EDT, Aerosol Start Date: 08/27/20 Status: Ordered Topamax 50 mg oral tablet 2 tablet = 100 mg, By Mouth, Daily at bedtime, # 60 tablet, 6 Refills, Maintenance, 08/04/20 11:44:00 EDT, Tablet, [facility], 158.02, cm, 07/06/20 6:49:00 EDT, Height, [...] 6 Refills, Soft Stop, 08/04/20 11:37:00 EDT, [facility], Partial fill upon patient request if the prescription is for a schedule II opioid drug., 158.02, cm, 07/06/20 6:49:00 EDZackary H... Start Date: 08/04/20 Stop Date: 03/02/21 [...] 1resolved after weight loss 2chronic perst 3gyn [address] 5testing negative insulinoma 6likley dumping sydrome 7abnormal GTT ;sugar 36 two hours into test 8sees gi 9normal CT brain 10new 115.3 cm,right per ct scan recent;seeing gynecology soon;they will review 12vit d deficiency;correct 189206 14per endocrinology monitor 15correction refer GTT; 2 hour glucose 36 16refer GGT 17seeing ortho;pre op 18asma,ama neg/cerulopalsmain wnl,AAT wnl 19Negative hep A antibody positive hep B surface antibody negative antigen negative hep C, normal ferritin 20ukltrasound Social History Social History Type Response Smoking Status Never smoker entered on: 02/20/13 Sex
--- OUTSIDE RECORDS SUMMARY | 2022-08-17 08:23 | XMS_ITS | Continuity of Care Document ---
Author Name Unknown Organization [facility] Address [address] [place] [address]- Care Team Providers Care Technical Training Coordinator Name Role Phone Louisa LANDRUM, Taras Fuentes Primary Care Physician [phone] Encounter [facility] Date(s): 06/10/20 - 07/10/20 [facility] [address] [place] [id number] Allergies, Adverse Reactions, Alerts Substance Reaction [...] toxoids (Td) 08/03/05 Given 1Result Comment: [12/07/2017] [address]-28 2Result Comment: [12/21/2016] [facility]: 15709-394-06 3Result Comment: [06/10/2015] #3 4Admin Note: per [...] 60 capsule, 5 Refills, Maintenance, 05/07/20 15:54:00EST, [facility], 160.02, cm, 05/01/20 9:18:00 EST, [...] 11:32:00 EST, Aerosol, Route to Pharmacy Electronically, NCPDP_[id number], [facility], 160, cm, 04/29/19 10:47:00 EST, Height... Start Date: 04/29/19 Status: Ordered Topamax 50 mg oral tablet See Instructions, take 1 tab in am and 2 tab at bedtime. If AM dose causes bad sedation, add to HS dose., # 90 tablet, 6 Refills, Maintenance, 03/12/20 11:09:00 EST, Tablet, [facility], weaning zonegran [...] 6 Refills, Soft Stop, 03/12/20 11:04:00 EST, [facility], Partial fill upon patient request [...] 0 Refills, Maintenance, 06/13/20 14:10:00 EDT, Capsule, [facility],... Start Date: 06/13/20 Status: Ordered [...] 1resolved after weight loss 2chronic perst 3gyn 71079 5testing negative insulinoma 6likley dumping sydrome 7abnormal GTT ;sugar 36 two hours into test 8sees gi 9normal CT brain 10new 115.3 cm,right per ct scan recent;seeing gynecology soon;they will review 12vit d deficiency;correct 150225 14per endocrinology monitor 15correction refer GTT; 2 hour glucose 36 16refer GGT 17seeing ortho;pre op 18asma,ama neg/cerulopalsmain wnl,AAT wnl 19Negative hep A antibody positive hep B surface antibody negative antigen negative hep C, normal ferritin 20ukltrasound Social History Social History Type Response Smoking Status Never smoker entered on: 02/20/13 Sex
--- OUTSIDE RECORDS SUMMARY | 2022-08-17 08:23 | XMS_ITS | Continuity of Care Document ---
Author Name Unknown Organization [facility] Address [address] [place] [address]- Care Team Providers Care Steam Conditioner Operator Name Role Phone Eran MANAGER ENTRY, Sue Dahl Primary Care Physician Encounter [facility] Date(s): 06/06/22 - 08/14/[address] [address] Attending Physician: Davion Law MD Allergies, Adverse Reactions, Alerts Substance Reaction Severity Status Dust Allergy to pollen Active Pollen seasonal allergies respiratory symptoms Active Incruse Ellipta 1 lightheaded and migraine Active 1dizzy Immunizations Given and Recorded Vaccine Date Status Refusal Reason tetanus-diphtheria toxoids (Td) 1 07/28/22 Given tetanus-diphtheria toxoids (Td) 08/03/05 Given pneumococcal 20-valent conjugate vaccine 2 07/28/22 Given [id number] 12y+ bivalent booster vax 3 12/24/21 Given [...] vaccine, inactivated 02/08/11 Give n SARS-CoV-2 mRNA ([id number]) vax 05/01/21 Recorded zoster vaccine, inactivated 11/03/20 [...] (IM) (oldterm) 9 12/25/07 Given 1Result Comment: [id number] 2Result Comment: [id number] 3Result Comment: [address]-2 4Result Comment: [id number] 5Result Comment: [12/07/2017] [address]-21 6Result Comment: [12/21/2016] [facility]: 98805-479-19 7Result Comment: [06/10/2015] #3 8Admin Note: per pt 9Admin Note: given in clinic Medications acetaminophen 500 mg oral tablet 2 tablet = 1,000 mg, By Mouth, Every 6 hours, PRN as needed for fever, # 200 tablet, 0 Refills, Maintenance, 12/03/21 10:17:00 EDT, Tablet, [facility], Partial fill upon patient request if the prescription is for a schedule II opi... Start Date: 12/03/21 Status: Ordered Albuterol (Eqv-ProAir HFA) 90 mcg/inh inhalation aerosol 2 puffs, Inhalation, Every 4 hours, PRN NEEDED FOR WHEEZING, # 8.5 Gm, 5 Refills, Maintenance, 03/09/22 11:21:00 EST, [facility], 17, INHALE TWO PUFFS BY MOUTH [...] Maintenance, 11/03/21 8:23:00 EDT, Tablet, [facility], 2 tablet By Mouth 2 times a day, 158, cm, 11/03/21 8:01:00 EDT,Height, 71.5, kg, 09/01/21 16:21:00 EDT, Dry Weight Start Date: 11/03/21 Status: Ordered cetirizine 10 mg oral tablet 1 tablet, By Mouth, Daily, # 30 tablet, 5 Refills, Maintenance, 07/28/22 13:34:00 EDT, [facility], 158, cm, 07/28/22 13:14:00 EDT, Height, [...] 05/30/22 7:57:00 EDT, CR Capsule, [facility], Partial fill upon patient request if the prescription is for a schedule II opioid... Start Date: 05/30/22 Status: Ordered Emgality Prefilled Pen 120 mg/mL subcutaneous solution = 120 mg, Subcutaneous Injection, Once, Maintenance Dose, # 3 kit, 2 Refills, Soft Stop, 07/14/22 10:04:00 EDT, [facility], requesting 3 month supply for cheaper martinez. with 2 refills. had follow up just now, doing great, albertina Baca... Start Date: 07/14/22 Status: Ordered EPINEPHrine 1 mg/mL injectable solution 0.3 mL = 0.3 mg, Intramuscular, Once, # 1 mL, 1 Refills, Soft Stop, 03/08/21 15:07:00 EST, Solution, [facility], Partial fill upon patient request if the prescription is for a schedule II opioid drug., 158, cm, 03/08/21 12:18:00 E... Start Date: 03/08/21 Status: Ordered famotidine 40 mg oral tablet 1 tablet = 40 mg, By Mouth, 2 times a day, # 60 tablet, 6 Refills, Maintenance, 08/08/22 12:33:00 EDT, Suspension, [id number], Partial fill upon patient request if the prescription is for a schedule II opioid drug., 160, cm, 08/03/22... Start Date: 08/08/22 Stop Date: 03/06/23 Status: Ordered famotidine 40 mg oral tablet 1 tablet = 40 mg, By Mouth, 2 times a day, for 30 days, # 60 tablet, 6 Refills, Hard Stop 08/29/22 14:05:00 EDT, 01/31/22 14:05:00 EST, Suspension, [facility], Partial fill upon patient request if the prescription is for a schedul... Start Date: 01/31/22 Stop Date: 08/29/22 Status: Ordered Fiber Choice 1.5 g oral tablet, chewable 1 tablet = 1.5 Gm, Chew, 3 times a day, # 90 tablet, 0 Refills, Maintenance, 04/09/22 15:16:00 EST,Chew Tablet, [id number], Partial fill upon patient request if the prescription is for a schedule II opioid drug., 158, cm, 04/06/22 14... Start Date: 04/09/22 Status: Ordered gabapentin 300 mg oral capsule 300 mg, 1, capsule, By Mouth, Daily at bedtime, Refills 0, Maintenance, 07/13/21 12:26:00 EDT Start Date: 07/13/21 Status: Ordered Glucagon Emergency Kit See Instructions, PRN, # 2 each, Refills 3, Tot. Refills 3, Maintenance, Blood Glucose, use as directed for hypoglcyemia, 08/03/22 16:24:00 EDT, Supply, 160, cm, 08/03/22 15:48:00 EDT, Height, 64.8, kg, 03/24/22 12:21:00 EST, Dry Weight Start Date: 08/03/22 Stop Date: 12/01/22 Status: Ordered MiraLax oral powder for reconstitution = 17 Gm, By Mouth, Daily, dissolve in water before taking, # 527 Gm, 0 Refills, Maintenance, 04/09/22 15:16:00 EST, REC Powder, [id number], Partial fill upon patient request if the prescription is for a schedule II opioid drug., 17 Gm... Start Date: 04/09/22 Status: Ordered montelukast 10 mg oral tablet 1, tablet, By Mouth, Daily in PM, # 90 tablet, Refills 1, Tot. Refills 1, Maintenance, 11/14/21 11:28:00 EDT, Route to Pharmacy Electronically, [facility], 158, cm, 11/03/21 8:01:00 EDT, Height, 71.5, kg, 09/01/21 16:21:00 EDT, Start Date: 11/14/21 Status: Ordered Nurtec ODT 75 mg oral tablet, disintegrating See Instructions, TAKE ONE TABLET DAILY NEEDED FOR migraines, DO NOT EXCEED ONE TABLET IN 24 HOURS, # 8 tablet, 6 Refills, Maintenance, 12/28/21 15:14:00 EDT, [facility], 163,cm, 12/24/21 8:20:00 EDT, Height, 67, [...] 0 Refills, Maintenance, 04/09/22 15:17:00 EST, Capsule, [facility] #[id number], Partial fill upon patient request if the prescription is for a schedule II opioid drug., 1 capsule By Mouth Daily in P... Start Date: 04/09/22 Status: Ordered Symbicort 160mcg/4.5mcg Inhaler 2, puffs, Inhalation, 2 times a day, rinse mouth and throat after use, # 10.2 Gm, Refills 2, Tot. Refills 2, Maintenance, 06/10/22 20:48:00 EDT, Route to Pharmacy Electronically, NCPDP_[id number], [facility], 158, cm, 06/07/22 10:... Start Date: [...] Bipolar disorder NOS Confirmed Active Cervical radiculopathy Confirmed Active Chronic sinusitis sx September 2019 Confirmed Active Diaphragmatic hernia Confirmed Active EKG abnormality qs v1 chronic Confirmed Active Esophageal reflux (GERD) egd 2017 Confirmed Active Anxiety disorder Confirmed Active Genital herpes 1 Confirmed 06/18/15 Active H/O laparoscopic adjustable gastric banding 2007/Feb 2021 2 Confirmed Active Hypoglycemia 3, 4, 5 Confirmed Active Spondylosis of lumbar spine MRI 2018 sx 2018 Confirmed Active Migraines 6, 7 Confirmed Active [...] Active Vitamin D deficiency Confirmed Active 1gyn 63867 3testing negative insulinoma 4likley dumping sydrome 5abnormal GTT ;sugar 36 two hours into test 6normal CT brain 7new 8resolved after weight loss 9chronic perst 105.3 cm,right per ct scan recent;seeing gynecology soon;they will review 11vit d deficiency;correct [id number] 13per endocrinology monitor 14correction refer GTT; 2 hour glucose 36 15refer GGT 16seeing ortho;pre op 17asma,ama neg/cerulopalsmain wnl,AAT wnl 18Negative hep A antibody positive hep B surface antibody negative antigen negative hep C, normal ferritin 19ukltrasound Social History Social History Type Response Smoking Status Never smoker entered on: 02/20/13 Sex Patient Care team information Care Team Personnel Name: Caitlyn Mcgee RN Position: [facility] RN Member Role: Primary Care Nurse Name: Sue Barillas NP Position: [facility] PCO Associate Professional Member Role: PCP Address: Address: [address] [place] [address] Name: Andria Guadalupe RN Position: [facility] SN RN Member Role: Primary Care Nurse Name: Liz Martin RN Position: [facility] RN Member Role: Primary Care Nurse Name: Ambreen Mcmahon RN Position: [facility] RN Member Role: Primary Care Nurse Name: Irais Grijalva RN Position: [facility] RN Member Role: Primary Care Nurse Name: Autumn Martinez RN Position: [facility] SN RN Member Role: Primary Care Nurse Name: Liz English RN Position: [facility] RN Member Role: Primary Care Nurse Name: Dora Williamson RN Position: [facility] RN Member Role: Primary Care Nurse Care Team Related Persons Name: KHUSHI CUNNINGHAM Address: [address] [place] [address] Name: BHUPINDER VENEGAS Address: [address] [place] [address] Name: FELIPE FLORES Address: home [address] [place] [address] Name: ARNAV FLORES Address: home [address] [place] [address] Name: IRINA FLORES Address: home [address] [place] [address] Name: RUSLAN FLORES Address: home [address] [place] [address] Name: KAISER PLUNKETT Address: home [address] [place] [address]
--- OUTSIDE RECORDS SUMMARY | 2022-08-17 08:23 | XMS_ITS | Continuity of Care Document ---
Author Name Unknown Organization [facility] Address [address] [place] [address]- Care Team Providers Care Fiber Artist Name Role Phone Eran Sue JOHNSON Primary Care Physician Encounter [facility] [place] Date(s): 02/19/22 - 03/21/22 [facility] [address] [place] [address]- Attending Physician: Konrad Curtis Admitting Physician: Konrad Curtis Referring Physician: AdmKonrad ruvalcaba Allergies, Adverse Reactions, Alerts Substance Reaction Severity Status Dust Allergy to pollen Active Pollen seasonal allergies respiratory symptoms Active Incruse Ellipta 1 lightheaded and migraine Active 1dizzy Immunizations Given and Recorded Vaccine Date Status Refusal Reason [id number] 12y+ bivalent booster vax 1 12/24/21 Given [...] vaccine, inactivated 02/08/11 Give n SARS-CoV-2 mRNA ([id number]) vax 05/01/21 Recorded zoster vaccine, inactivated 11/03/20 [...] tetanus-diphtheria toxoids (Td) 08/03/05 Given 1Result Comment: [id number] 2Result Comment: [id number] 3Result Comment: [12/07/2017] [id number] 4Result Comment: [12/21/2016] [facility]: [id number] 5Result Comment: [06/10/2015] #3 6Admin Note: per [...] Dry W... Start Date: 11/03/21 Status: Ordered acetaminophen 500 [...] Gm, 5 Refills, Maintenance, 03/09/22 11:21:00 EST, [facility], 17, INHALE TWO [...] 2 Refills, Soft Stop, 03/17/22 8:08:00 EST, [facility], requesting 3 month supply for cheaper martinez. with 2 refills, 163, cm, 03/15/22 10:13:00 EST, Height, 68.1,... Start Date: [...] 6 Refills, Maintenance, 01/31/22 14:05:00 EST, Suspension, [facility], Partial [...] 12:26:00 EDT Start Date: 07/13/21 Status: Ordered montelukast 10 mg oral tablet [...] Refills, Maintenance, 11/06/20 10:24:00 EDT, administered at [facility] 10/2020 Start Date: 11/06/20 [...] 11/23/21 19:57:00 EDT, Route to Pharmacy Electronically, [id number], [facility], 158, [...] Active Vitamin D deficiency Confirmed Active 1gyn 65893 3testing negative insulinoma 4likley dumping sydrome 5abnormal GTT ;sugar 36 two hours into test 6normal CT brain 7new 8resolved after weight loss 9chronic perst 105.3 cm,right per ct scan recent;seeing gynecology soon;they will review 11vit d deficiency;correct [id number] 13per endocrinology monitor 14correction refer GTT; 2 hour glucose 36 15refer GGT 16seeing ortho;pre op 17asma,ama neg/cerulopalsmain wnl,AAT wnl 18Negative hep A antibody positive hep B surface antibody negative antigen negative hep C, normal ferritin 19ukltrasound Social History Social History Type Response Smoking Status Never smoker entered on: 02/20/13 Sex Note * Ayleen Warner: PERFORM, SIGN, VERIFY Event Display: Patient Education/Instruction Authored Date: [id number] [facility] Clinical Summary Person Information Name HERNAN FLORES Age 41 Years 1970 12:00 AM PCP Louisa LANDRUM, Taras Fuentes PCP Reason for Visit: Allergy Info: NKA Vital Signs Height Weight BMI Blood Pressure / Temperature Pulse Rate Respiratory Rate 02 Sat Mode of Delivery / Medication Information Aripiprazole (Abilify 2 mg oral tablet) 1 tablet, Oral, Daily, Refills: 0 Cholecalciferol (cholecalciferol 2000 intl units oral tablet) , See Instructions, 2tablet By Mouth mon to monday 30 days, , Refills: 11 Cyanocobalamin (Vitamin B12 1000 mcg oral tablet) 1 tablet, Oral, Daily, 30 days, Refills: 11 Docusate (docusate sodium 100 mg oral capsule) 1 capsule, Oral, twice a day, 14 days, Refills: 2 Ferrous Sulfate (ferrous sulfate 324 mg (65 mg elemental iron) oral enteric coated tablet) 1 tablet, Oral, 3 times a day, (do not crush or chew),with orange juice, 30 days, Refills: 11 Nesbitt (lithium 300 mg oral capsule) 1 capsule, Oral, 3 times a day, Refills: 0 Lorazepam (lorazepam 0.5 mg oral tablet) 1 tablet, Oral, twice a day, Refills: 0 Meclizine (meclizine 25 mg oral tablet) 1 tablet, Oral, 3 times a day, 14 days, As Needed, for dizziness, Refills: 0 Pantoprazole (Protonix 20 mg oral enteric coated tablet) 1 tablet, Oral, Daily, Refills: 11 Trazodone (trazodone 100 mg oral tablet) 1 tablet, Oral, Daily at Bedtime, Refills: 0 Problem List Date Problem 11/28/11 Personal history of gastric bypass 12/01/06 Depression 04/16/07 Ovarian cyst 07/28/10 Esophageal reflux (GERD) 11/28/11 Bipolar disorder NOS 03/30/10 Migraines 03/30/10 Irregular menses 04/21/10 Anemia, iron deficiency NOS 04/21/10 Deficiency of vitamin D3 01/26/11 Migraine 11/28/11 B12 deficiency If the following labs have been performed in the last year, the most recent result is displayed below. Diagnostic Results Lab Result Value Date Lead Hemoglobin A1C LDL 89 05/23/11 HDL 86 05/23/11 Triglycerides 66 05/23/11 Total Cholesterol 188 05/23/11 Disclaimer: The information provided is of a general nature and is intended to be used in conjunction with the recommendations and advice of your health care practitioner. Every effort has been made to ensure that the information provided is accurate and complete at the time it is provided to you however, as your needs change, or, as new information becomes available, different or additional instructions may be required. If you have questions, please consult with your primary care provider or pharmacist, as appropriate. This information is not intended to serve as substitution for assessment and evaluation by a qualified health care provider. If you do not have a primary care provider, you may find a [facility] provider by calling [facility] [facility] at [phone]. Patient Education Information Follow-up Details: Patient Education Material: Patient Care team information Care Team Personnel Name: Caitlyn Mcgee RN Position: S RN Member Role: Primary Care Nurse Name: Sue Barillas NP [facility] PCO Associate Professional Member Role: PCP Address: Address: [address] [place] [id number]- Name: Andria Guadalupe RN Position: [facility] SN RN Member Role: Primary Care Nurse Name: Liz Martin RN Position: S RN Member Role: Primary Care Nurse Name: Ambreen Mcmahon RN Position: [facility] RN Member Role: Primary Care Nurse Name: Irais Grijalva RN Position: [facility] RN Member Role: Primary Care Nurse Name: Autumn Mratinez RN Position: [facility] SN RN Member Role: Primary Care Nurse Name: Concha Mckinley RN Position: [facility] RN Member Role: Primary Care Nurse Name: Liz English RN Position: [facility] RN Member Role: Primary Care Nurse Name: Dora Williamson RN Position: [facility] RN Member Role: Primary Care Nurse Care Team Related Persons Name: KHUSHI CUNNINGHAM Address: home [address] [place] [address] Name: BHUPINDER VENEGAS Address: home [address] [place] [address] Name: FELIPE FLORES Address: home [address] [place] [address] Name: ARNAV FLORES Address: home [address] [place], [place] Name: IRINA FLORES Address: home [address] [place], [place] Name: RUSLAN FLORES Address: home [address] [place], [place] Name: KAISER PLUNKETT Address: home [address] [place] [address]
--- OUTSIDE RECORDS SUMMARY | 2022-08-17 08:23 | XMS_ITS | Continuity of Care Document ---
Author Name Unknown Organization [facility] Address [address] [place] [address]- Care Team Providers Care Electrician Ship Name Role Phone Louisa LANDRUM, Taras Fuentes Primary Care Physician [phone] [place]counter [facility] [place](s): 05/16/19 - 05/23/19 [facility] [address] [place] [address]- [facility] Encounter Diagnosis Chest pain(Discharge Diagnosis) - 05/16/19 FH: cardiovascular disease(Discharge Diagnosis) - 05/19/19 Attending Physician: Not on Staff, Attending MD [...] toxoids (Td) 08/03/05 Given 1Result Comment: [12/07/2017] [id number] 2Result Comment: [12/21/2016] [facility]: [id number] 3Result Comment: [06/10/2015] #3 4Admin Note: per [...] 05/17/19 12:02:00 EDT, Route to Pharmacy Electronically, [facility], 160, cm, 05/16/19 10:27:00 EDT, Height, [...] EST, Route to Pharmacy Electronically, [facility], 158, cm, 02/14/19 7:55:00 EST, Height, 61.9, kg, 02/12/19 10:17:00... Start Date: 02/25/19 Status: Ordered Medrol Dosepak 4 mg oral tablet 1 pack/packet, By Mouth, Once, as directed on package labeling, # 21 tablet, 0 Refills, Soft Stop, 05/23/19 9:23:00 EDT, Tablet, [facility], 160, cm, 05/16/19 10:27:00 EDT, Height, 62.9, kg, 05/12/19 9:16:00 EDT, Dry Weight Start Date: 05/23/19 Status: Ordered ProAir HFA 90 mcg/inh inhalation aerosol with adapter 2, puffs, Inhalation, Every 4 hours, PRN, # 8.5 Gm, Refills 2, Tot. Refills 2, Maintenance, 04/29/19 11:32:00 EST, Aerosol, Route to Pharmacy Electronically, NCPDP_[id number], [facility], 160, cm, 04/29/19 10:47:00 [...] 5 Refills, Maintenance, 04/12/19 12:59:00 EST, Capsule, [facility], 160, cm, 04/11/19 12:38:00 [...] perst 3folowed by mental health;recent hospitalization 4gyn 82152 6testing negative insulinoma 7likley dumping sydrome 8abnormal GTT ;sugar 36 two hours into test 9sees gi 10normal CT brain 11new 125.3 cm,right per ct scan recent;seeing gynecology soon;they will review 13vit d deficiency;correct [id number] 15per endocrinology monitor 16correction refer GTT; 2 hour glucose 36 17refer GGT 18seeing ortho;pre op 19asma,ama neg/cerulopalsmain wnl,AAT wnl 20Negative hep A antibody positive hep B surface antibody negative antigen negative hep C, normal ferritin 21ukltrasound Diagnosis Diagnosis Type Effective Dates Health Status Clinical Service Informant Chest pain Discharge Diagnosis 05/16/19 FH: cardiovascular disease Discharge Diagnosis 05/19/19 Vital Signs Most recent to oldest [Reference Range]: 1 Height 160 cm (05/16/19 10:27 AM) Weight 63.3 kg (05/16/19 10:27 AM) Oxygen Saturation [94-100 %] 99 % (05/16/19 10:27 AM) Pulse Rate [55-90 bpm] 78 bpm (05/16/19 10:27 AM) Body Mass Index [18.5-24.99] 24.73 (05/16/19 10:27 AM) Blood Pressure [90-138/55-84 mm Hg] 110/ 66mm Hg (05/16/19 10:27 AM) Respiratory Rate [16-30 br/min] 16 br/mi n (05/16/19 10:27 AM) Temperature [96.8-100.4 DegF] 98.7 DegF (05/16/19 10:27 AM) Mode of Delivery (Oxygen) Room air (05/16/19 10:27 AM) Blood pressure sites Arm, left (05/16/19 10:27 AM) Temperature Route Oral (05/16/19 10:27 AM) Weight Obtained Via Standing scale (05/16/19 10:27 AM) Social History Social History Type Response Smoking Status Never smoker entered on: 02/20/13 Sex
--- OUTSIDE RECORDS SUMMARY | 2022-08-17 08:23 | XMS_ITS | Continuity of Care Document ---
Author Name Unknown Organization [facility] Address [address] [place] [address]- Care Team Providers Care Communication Professor Name Role Phone Eran PHYSICIAN OBSTETRICIAN, Sue Dahl Primary Care Physician [phone] Encounter [facility] Date(s): 04/05/21 - 05/05/21 [facility] [address] [place] [address]- Allergies, Adverse Reactions, Alerts Substance Reaction Severity Status Dust Allergy to pollen Active Pollen seasonal allergies respiratory symptoms Active Incruse Ellipta 1 lightheaded and migraine Active 1dizzy Immunizations Given and Recorded Vaccine Date Status Refusal Reason SARS-CoV-2 mRNA ([id number]-[id number]) vax 05/01/21 Recorded influenza virus vaccine, inactivated [...] toxoids (Td) 08/03/05 Given 1Result Comment: [12/07/2017] [id number] 2Result Comment: [12/21/2016] [facility]: [id number] 3Result Comment: [06/10/2015] #3 4Admin Note: per [...] 3 Refills, Maintenance, 02/03/21 8:34:00 EST, Tablet, [facility], Partial fill upon patient request if the prescript... Start Date: 02/03/21 Status: Ordered acarbose 50 mg oral tablet 1 tablet = 50 mg, By Mouth, 3 times a day, Take 1 tab (plus 1 25mg tab), 3 times daily with meals.,# 270 tablet, 3 Refills, Maintenance, 02/03/21 8:34:00 EST, Tablet, [facility], Partial fill upon patient request if the prescript... Start Date: 02/03/21 Status: Ordered Baqsimi One Pack 3 mg nasal powder See Instructions, 3 mg Once intrasnasally for severe hypoglycemia, # 2 each, 3 Refills, Soft Stop, 08/28/20 10:36:00 EDT, [facility], Partial fill upon [...] 5 Refills, Maintenance, 11/06/20 10:28:00 EDT, Tablet, [facility], Replaces loratidine, 158.02, cm, 11/06/20 10:04:00 EDT, Height,67, kg, 09/11/19 11:20:00 EDT, Dry Weight Start Date: 11/06/20 Status: Ordered cholestyramine 4 gm/5 gm oral powder for reconstitution 1 pack/packet, By Mouth, Daily, # 30 pack/packet, 5 Refills, Maintenance, 03/03/21 16:42:00 EST, REC Powder, [facility], Partial fill upon [...] per PCP, # 30 mL, 1 Refills, [facility], 158, cm, 04/09/21 8:13:00 EST, Height, 80.6, kg, 03/08/21 12:18:00 EST, Dry Weight Start Date: 04/30/21 Status: Ordered Dexilant 60 mg oral delayed release capsule 1 capsule = 60 mg, By Mouth, 2 times a day, 30 min before meal, # 60 capsule, 5 Refills, Maintenance, 04/16/21 14:29:00 EST, CR Capsule, [facility], Partial fill upon patient request if the prescription is for a schedule II opioi... Start Date: 04/16/21 Status: Ordered Emgality Prefilled Pen 120 mg/mL subcutaneous solution = 240 mg, Subcutaneous Injection, Once, Loading Dose, # 2 kit, 0 Refills, Soft Stop, 03/16/21 16:05:00 EST, [facility], Partial fill upon patient request if the prescription is for a schedule II opioid drug., 158, albertina, 03/11/21 9:1... Start Date: 03/16/21 Status: Ordered Emgality Prefilled Pen 120 mg/mL subcutaneous solution = 120 mg, Subcutaneous Injection, Once, Maintenance Dose, # 1 kit, 5 Refills, Soft Stop, 03/16/21 16:05:00 EST, [facility], Partial fill upon patient request if the prescription is for a schedule II opioid drug., 158albertina, 03/11/21... Start Date: 03/16/21 Status: Ordered EPINEPHrine 1 mg/mL injectable solution 0.3 mL = 0.3 mg, Intramuscular, Once, # 1 mL, 1 Refills, Soft Stop, 03/08/21 15:07:00 EST, Solution, [facility], Partial fill upon patient request if the prescription is for a schedule II opioid drug., 158albertina, 03/08/21 12:18:00 E... Start Date: 03/08/21 Status: [...] 1 Refills, Maintenance, 04/06/21 9:45:00 EST, Solution, [facility], Partial fill upon patient request if the prescription is for a schedule II opioid drug.... Start Date: 04/06/21 Status: Ordered meclizine 25 mg oral tablet See Instructions, PRN for dizziness, Take 1 tablet every 8 hours as needed for dizziness, # 15 tablet, 0 Refills, Maintenance, 11/03/20 7:49:00 EDT, Tablet, [facility], Partial fill upon patient request if the prescription is for... Start Date: 11/03/20 Status: Ordered montelukast 10 mg oral tablet 10 mg, 1, tablet, By Mouth, Daily in PM, # 90 tablet, Refills 1, Tot. Refills 1, Maintenance, 04/23/21 12:32:00 EST, Route to Pharmacy Electronically, [facility], 158, cm, 04/09/21 8:13:00 [...] 6 Refills, Maintenance, 12/10/20 12:36:00 EDT,DIS Tablet, [facility], has t... Start Date: 12/10/20 Stop Date: 07/08/21 Status: Ordered [place] 0.65% nasal spray 2 sprays, Nares, Both, 4 times a day, # 1 each, 0 Refills, Maintenance, 10/30/20 11:34:00 EDT, [facility], Partial fill upon patient request if the prescription is for a scheduleII opioid drug., 2 sprays Nares, Both 4 times a day... Start Date: 10/30/20 Status: Ordered ProAir HFA 90 mcg/inh inhalation aerosol with adapter 2, puffs, Inhalation, Every 4 hours, PRN, # 8.5 Gm, Refills 1, Tot. Refills 1, Maintenance, 01/06/21 8:26:00 EDT, Aerosol, Route to Pharmacy Electronically, NCPDP_[id number], [facility], 158.02, cm, 01/06/21 8:03:00 EDT, Height, 6... Start Date: 01/06/21 Status: Ordered Readi-Cat 2 oral suspension See Instructions, Follow direction for CT, # 2 each, 0 Refills, Maintenance, 04/08/21 16:08:00 EST,[facility], Partial fill upon patient request if the prescription is for a schedule II opioid drug., Follow direction for CT, 158, cm,... Start Date: 04/08/21 Status: Ordered Reclast = 5 mg, IV Infusion, Once, 0 Refills, Maintenance, 11/06/20 10:24:00 EDT, administered at [facility] 10/2020 Start Date: 11/06/20 Status: Ordered [...] Gm, Refills 11, Route to Pharmacy Electronically, NCPDP_[id number], [facility], 158.02, cm, 11/13/20 8:38:00 [...] 1resolved after weight loss 2chronic perst 3gyn 20765 5testing negative insulinoma 6likley dumping sydrome 7abnormal GTT ;sugar 36 two hours into test 8sees gi 9normal CT brain 10new 115.3 cm,right per ct scan recent;seeing gynecology soon;they will review 12vit d deficiency;correct 223356 14per endocrinology monitor 15correction refer GTT; 2 hour glucose 36 16refer GGT 17seeing ortho;pre op 18asma,ama neg/cerulopalsmain wnl,AAT wnl 19Negative hep A antibody positive hep B surface antibody negative antigen negative hep C, normal ferritin 20ukltrasound Social History Social History Type Response Smoking Status Never smoker entered on: 02/20/13 Sex
--- OUTSIDE RECORDS SUMMARY | 2022-08-17 08:23 | XMS_ITS | Continuity of Care Document ---
Author Name Unknown Organization [facility] Address [address] [place] [address]- Care Team Providers Care Community Health Education Coordinator Name Role Phone Louisa LANDRUM, Taras Fuentes Primary Care Physician [phone] Encounter [facility] Date(s): 04/01/21 - 05/01/21 [facility] [address] [place] [address]- [place] Allergies, Adverse Reactions, Alerts Substance Reaction [...] toxoids (Td) 08/03/05 Given 1Result Comment: [12/07/2017] [id number] 2Result Comment: [12/21/2016] [facility]: [id number] 3Result Comment: [06/10/2015] #3 4Admin Note: per [...] 3 Refills, Maintenance, 02/03/21 8:34:00 EST, Tablet, [facility], Partial fill upon patient request if the prescript... Start Date: 02/03/21 Status: Ordered acarbose 50 mg oral tablet 1 tablet = 50 mg, By Mouth, 3 times a day, Take 1 tab (plus 1 25mg tab), 3 times daily with meals.,# 270 tablet, 3 Refills, Maintenance, 02/03/21 8:34:00 EST, Tablet, [facility], Partial fill upon patient request if the prescript... Start Date: 02/03/21 Status: Ordered Baqsimi One Pack 3 mg nasal powder See Instructions, 3 mg Once intrasnasally for severe hypoglycemia, # 2 each, 3 Refills, Soft Stop, 08/28/20 10:36:00 EDT, [facility], Partial fill upon patient request [...] 5 Refills, Maintenance, 11/06/20 10:28:00 EDT, Tablet, [facility], Replaces loratidine, 158.02, cm, 11/06/20 10:04:00 EDT, Height,67, kg, 09/11/19 11:20:00 EDT, Dry Weight Start Date: 11/06/20 Status: Ordered cholestyramine 4 gm/5 gm oral powder for reconstitution 1 pack/packet, By Mouth, Daily, # 30 pack/packet, 5 Refills, Maintenance, 03/03/21 16:42:00 EST, REC Powder, [facility], Partial fill upon patient request [...] per PCP, # 30 mL, 1 Refills, [facility], 158, cm, 04/09/21 8:13:00 EST, Height, 80.6, kg, 03/08/21 12:18:00 EST, Dry Weight Start Date: 04/30/21 Status: Ordered Dexilant 60 mg oral delayed release capsule 1 capsule = 60 mg, By Mouth, 2 times a day, 30 min before meal, # 60 capsule, 5 Refills, Maintenance, 04/16/21 14:29:00 EST, CR Capsule, [facility], Partial fill upon patient request if the prescription is for a schedule II opioi... Start Date: 04/16/21 Status: Ordered Emgality Prefilled Pen 120 mg/mL subcutaneous solution = 240 mg, Subcutaneous Injection, Once, Loading Dose, # 2 kit, 0 Refills, Soft Stop, 03/16/21 16:05:00 EST, [facility], Partial fill upon patient request if the prescription is for a schedule II opioid drug., 158, cm, 03/11/21 9:1... Start Date: 03/16/21 Status: Ordered Emgality Prefilled Pen 120 mg/mL subcutaneous solution = 120 mg, Subcutaneous Injection, Once, Maintenance Dose, # 1 kit, 5 Refills, Soft Stop, 03/16/21 16:05:00 EST, [facility], Partial fill upon patient request if the prescription is for a schedule II opioid drug., 158, cm, 03/11/21... Start Date: 03/16/21 Status: Ordered EPINEPHrine 1 mg/mL injectable solution 0.3 mL = 0.3 mg, Intramuscular, Once, # 1 mL, 1 Refills, Soft Stop, 03/08/21 15:07:00 EST, Solution, [facility], Partial fill upon patient request [...] Refills, Soft Stop, 11/20/19 11:59:00 EDT, [facility], 160.02, cm, 11/15/19 10:05:00 EDT, Height, 67, kg, 09/11/19 11:20:00 EDT, Dry Weight Start Date: 11/20/19 Status: Ordered Lidocaine Viscous 2% solution 5 mL = 0.1 Gm, By Mouth, 4 times a day, PRN for epigastric pain, # 200 mL, 1 Refills, Maintenance, 04/06/21 9:45:00 EST, Solution, [facility], Partial fill upon patient request if the prescription is for a schedule II opioid drug.... Start Date: 04/06/21 Status: Ordered Macrobid macrocrystals-monohydrate 100 mg oral capsule 1 capsule = 100 mg, By Mouth, 2 times a day, for 7 days, # 14 capsule, 0 Refills, Acute 05/03/21 17:01:00 EST, 04/26/21 17:01:00 EST, Capsule, [facility], Partial fill upon patient request if the prescription is for a schedule II... Start Date: 04/26/21 Stop Date: 05/03/21 Status: Ordered meclizine 25 mg oral tablet See Instructions, PRN for dizziness, Take 1 tablet every 8 hours as needed for dizziness, # 15 tablet, 0 Refills, Maintenance, 11/03/20 7:49:00 EDT, Tablet, [facility], Partial fill upon patient request if the prescription is for... Start Date: 11/03/20 Status: Ordered montelukast 10 mg oral tablet 10 mg, 1, tablet, By Mouth, Daily in PM, # 90 tablet, Refills 1, Tot. Refills 1, Maintenance, 04/23/21 12:32:00 EST, Route to Pharmacy Electronically, [facility], 158, cm, 04/09/21 8:13:00 EST, Height, 80.6, kg, 03/08/21 12:18:00... Start Date: 04/23/21 Status: Ordered Nurtec ODT 75 mg oral tablet, disintegrating 1 tablet = 75 mg, By Mouth, Every 24 hours, PRN as needed for migraine headache, not to exceed 75 mg in 24 hours. no refill in nder 30 days, # 8 tablet, 6 Refills, Maintenance, 12/10/20 12:36:00 EDT,DIS Tablet, [facility], has t... Start Date: 12/10/20 Stop Date: 07/08/21 Status: Ordered Hemphill 0.65% nasal spray 2 sprays, Nares, Both, 4 times a day, # 1 each, 0 Refills, Maintenance, 10/30/20 11:34:00 EDT, [facility], Partial fill upon patient request if the prescription is for a scheduleII opioid drug., 2 sprays Nares, Both 4 times a day... Start Date: 10/30/20 Status: Ordered ProAir HFA 90 mcg/inh inhalation aerosol with adapter 2, puffs, Inhalation, Every 4 hours, PRN, # 8.5 Gm, Refills 1, Tot. Refills 1, Maintenance, 01/06/21 8:26:00 EDT, Aerosol, Route to Pharmacy Electronically, NCPDP_[id number], [facility], 158.02, cm, 01/06/21 8:03:00 EDT, Height, 6... Start Date: 01/06/21 Status: Ordered Readi-Cat 2 oral suspension See Instructions, Follow direction for CT, # 2 each, 0 Refills, Maintenance, 04/08/21 16:08:00 EST,[facility], Partial fill upon patient request [...] Gm, Refills 11, Route to Pharmacy Electronically, NCPDP_[id number], [facility], 158.02, cm, 11/13/20 8:38:00 EDT, Height, [...] 1resolved after weight loss 2chronic perst 3gyn [address] 5testing negative insulinoma 6likley dumping sydrome 7abnormal GTT ;sugar 36 two hours into test 8sees gi 9normal CT brain 10new 115.3 cm,right per ct scan recent;seeing gynecology soon;they will review 12vit d deficiency;correct [id number] 14per endocrinology monitor 15correction refer GTT; 2 hour glucose 36 16refer GGT 17seeing ortho;pre op 18asma,ama neg/cerulopalsmain wnl,AAT wnl 19Negative hep A antibody positive hep B surface antibody negative antigen negative hep C, normal ferritin 20ukltrasound Social History Social History Type Response Smoking Status Never smoker entered on: 02/20/13 Sex
--- OUTSIDE RECORDS SUMMARY | 2022-08-17 08:23 | XMS_ITS | Continuity of Care Document ---
Author Name Unknown Organization [facility] Address [address] [place] [address]- Care Team Providers Care Home Day Care Provider Name Role Phone Eran HIGH SCHOOL DIRECTOR, Sue Dahl Primary Care Physician Encounter [facility] Date(s): 08/27/21 - 09/30/21 [facility] [address] [place] [address]- Attending Physician: Not on Staff, Attending MD Allergies, Adverse Reactions, Alerts Substance Reaction Severity Status Dust Allergy to pollen Active Pollen seasonal allergies respiratory symptoms Active Incruse Ellipta 1 lightheaded and migraine Active 1dizzy Immunizations Given and Recorded Vaccine Date Status Refusal Reason SARS-CoV-2 mRNA (gunlolr-mzmw-umgmb) vax 05/01/21 Recorded influenza virus vaccine, inactivated [...] vac 03/19/20 Recorded Hepatitis A Adult Vaccine 8/14/17 Given hepatitis B adult vaccine 3 06/10/15 Given hepatitis B adult vaccine 08/11/14 Given hepatitis B adult vaccine 07/09/14 Given pneumococcal 23-valent vaccine 08/19/13 Given tetanus/diphtheria/pertussis, acel(Tdap) 11/28/11 Given FluLaval (oldterm) 11/28/11 Given Influenza Virus Vaccine (oldterm) 4 03/24/09 Given Influenza Virus Vaccine (oldterm) 01/04/07 Given Influenza Inactive (IM) (oldterm) 5 12/25/07 Given tetanus-diphtheria toxoids (Td) 08/03/05 Given 1Result Comment: [12/07/2017] [address]-03 2Result Comment: [12/21/2016] [facility]: 60434-619-91 3Result Comment: [06/10/2015] #3 4Admin Note: per pt 5Admin Note: given in clinic Medications acarbose 25 mg oral tablet 1 tablet = 25 mg, By Mouth, 3 times a day, Take 1 tab (plus 1 50mg tab), 3 times daily with meals.,# 270 tablet, 3 Refills, Maintenance, 02/03/21 8:34:00 EST, Tablet, [facility], Partial fill upon patient request if the prescript... Start Date: 02/03/21 Status: Ordered acarbose 50 mg oral tablet 1 tablet = 50 mg, By Mouth, 3 times a day, Take 1 tab (plus 1 25mg tab), 3 times daily with meals.,# 270 tablet, 3 Refills, Maintenance, 02/03/21 8:34:00 EST, Tablet, [facility] [...] constipation, 08/23/21 8:22:00 EDT, Route to Pharmacy Electronically,[facility], Partial fill upon patient... Start Date: 08/23/21 Status: Ordered Dexilant 60 mg oral delayed release capsule 1 capsule = 60 mg, By Mouth, 2 times a day, 30 min before meal, # 60 capsule, 5 Refills, Maintenance, 04/16/21 14:29:00 EST, CR Capsule, [facility], Partial fill upon patient request if the prescription is for a schedule II opioi... Start Date: 04/16/21 Status: Ordered Emgality Prefilled Pen 120 mg/mL subcutaneous solution = 120 mg, Subcutaneous Injection, Once, Maintenance Dose, # 1 kit, 6 Refills, Soft Stop, 06/29/21 10:09:00 EDT, [facility], Partial fill upon patient request if the prescription is for a schedule II opioid drug., 158, cm, 06/29/21... Start Date: 06/29/21 Status: Ordered EPINEPHrine 1 mg/mL injectable solution 0.3 mL = 0.3 mg, Intramuscular, Once, # 1 mL, 1 Refills, Soft Stop, 03/08/21 15:07:00 EST, Solution, [facility], Partial [...] 09/17/21 14:13:00 EDT, Route to Pharmacy Electronically, [facility], 158, cm, 09/16/21 9:43:00 EDT, Height, 71.5, kg, 09/01/21 16:21:00 EDT, D... Start Date: 09/17/21 Status: Ordered meclizine 25 mg oral tablet See Instructions, PRN for dizziness, Take 1 tablet every 8 hours as needed for dizziness, # 15 tablet, 0 Refills, Maintenance, 11/03/20 7:49:00 EDT, Tablet, [facility], Partial fill upon patient request if the prescription is for... Start Date: 11/03/20 Status: Ordered montelukast 10 mg oral tablet 10 mg, 1, tablet, By Mouth, Daily in PM, # 90 tablet, Refills 1, Tot. Refills 1, Maintenance, 04/23/21 12:32:00 EST, Route to Pharmacy Electronically, [facility], 158, cm, 04/09/21 8:13:00 EST, Height, [...] 12/10/20 12:36:00 EDT,DIS Tablet, [facility], has t... Start Date: 12/10/20 Stop Date: 07/08/21 Status: Ordered Reclast = 5 mg, IV Infusion, Once, 0 Refills, Maintenance, 11/06/20 10:24:00 EDT, administered at [facility] 10/2020 Start Date: 11/06/20 Status: [...] 1resolved after weight loss 2chronic perst 3gyn 56746 5testing negative insulinoma 6likley dumping sydrome 7abnormal GTT ;sugar 36 two hours into test 8sees gi 9normal CT brain 10new 115.3 cm,right per ct scan recent;seeing gynecology soon;they will review 12vit d deficiency;correct 605815 14per endocrinology monitor 15correction refer GTT; 2 hour glucose 36 16refer GGT 17seeing ortho;pre op 18asma,ama neg/cerulopalsmain wnl,AAT wnl 19Negative hep A antibody positive hep B surface antibody negative antigen negative hep C, normal ferritin 20ukltrasound Social History Social History Type Response Smoking Status Never smoker entered on: 02/20/13 Sex
--- OUTSIDE RECORDS SUMMARY | 2022-08-17 08:23 | XMS_ITS | Continuity of Care Document ---
Author Name Unknown Organization [facility] Address [address] [place] [address]- Care Team Providers Care Seal Mixing Operator Name Role Phone Taras Jasso MD Primary Care Physician [place] [facility] [place] 02/12/19 - 02/19/19 [facility] [address] [place] [address]- [facility] Encounter Diagnosis Contusion of sacrum(Discharge Diagnosis) - 02/12/19 Attending Physician: Carter Tierney MD Referring Physician: Taras Jasso MD Allergies, [...] 4 03/24/09 Given Influenza Virus Vaccine (oldterm) 11/1/07 Given Influenza Inactive (IM) (oldterm) 5 12/25/07 Given tetanus-diphtheria toxoids (Td) 08/03/05 Given 1Result Comment: [12/07/2017] [address]-41 2Result Comment: [12/21/2016] [facility]: [id number] 3Result Comment: [06/10/2015] #3 4Admin Note: per [...] Tot. Refills 11, Maintenance, DX:J45.909 ASTHMA FAX [id number], 12/21/17 11:58:59 EDT, Compound Start Date: 12/21/17 Status: Ordered KlonoPIN 1 mg oral tablet 1 tablet = 1 mg, By Mouth, Daily at bedtime, 0 Refills, Maintenance, 07/30/15 13:45:25 Start Date: 07/30/15 Status: Ordered Latuda 60 mg oral tablet 1 tablet = 60 mg, By Mouth, Daily, # 30 tablet, 0 Refills, Maintenance, 05/24/18 15:34:04 EDT, Tablet Start Date: 05/24/18 Status: Ordered Nasacort Allergy 24HR 55 mcg/inh [...] 14:19:44 EST, Aerosol, Route to Pharmacy Electronically, NCPDP_[id number], [facility] Start Date: 03/19/18 Status: [...] 05/12/17 8:15:18, Aerosol, Route to Pharmacy Electronically, NCPDP_[id number], [facility]... Start Date: 3/9/18 Status: Ordered tiZANidine 2 mg oral tablet [...] perst 3folowed by mental health;recent hospitalization 4gyn 25767 6testing negative insulinoma 7likley dumping sydrome 8abnormal GTT ;sugar 36 two hours into test 9sees gi 10normal CT brain 11new 125.3 cm,right per ct scan recent;seeing gynecology soon;they will review 13vit d deficiency;correct 523929 15per endocrinology monitor 16correction refer GTT; 2 hour glucose 36 17refer GGT 18seeing ortho;pre op 19asma,ama neg/cerulopalsmain wnl,AAT wnl 20Negative hep A antibody positive hep B surface antibody negative antigen negative hep C, normal ferritin 21ukltrasound Diagnosis Diagnosis Type Effective Dates Health Status Cl inical Service Informant Contusion of sacrum Discharge Diagnosis 02/12/19 Vital Signs Most recent to oldest [Reference Range]: 1 Height 158 cm (02/12/19 10:17 AM) Weight 61.9 kg (02/12/19 10:17 AM) Oxygen Saturation [94-100 %] 100 % (02/12/19 10: AM) Pulse Rate [55-90 bpm] 71 bpm (02/12/19 10:17 AM) Body Mass Index [18.5-24.99] 24.8 (02/12/19 10: AM) Blood Pressure [90-138/55-84 mm Hg] 118/ 75mm Hg (02/12/19 10: AM) Respiratory Rate [16-30 br/min] 22 br/mi n (02/12/19 10: AM) Temperature [96.8-100.4 DegF] 98.4 DegF (02/12/19 10: AM) Mode of Delivery (Oxygen) Room air (02/12/19 10:17 AM) Blood pressure sites Arm, left (02/12/19 10: AM) Temperature Route Oral (02/12/19 10: AM) Dry Weight 61.9 kg (02/12/19 10:17 AM) Weight Obtained Via Standing scale (02/12/19 10:17 AM) Dry Weight Obtained Via Standing scale (02/12/19 10:17 AM) Social History Social History Type Response Smoking Status Never smoker entered on: 02/20/13 Sex
--- OUTSIDE RECORDS SUMMARY | 2022-08-17 08:23 | XMS_ITS | Continuity of Care Document ---
Author Name Unknown Organization [facility] Address [address] [place] [address]- Care Team Providers Care Wafer Abrading Machine Tender Name Role Phone Louisa LANDRUM, Taras Fuentes Primary Care Physician Encounter [facility] Date(s): 06/10/20 - 07/10/20 [facility] [address] [place] [address]- Allergies, Adverse Reactions, Alerts Substance Reaction Severity [...] toxoids (Td) 08/03/05 Given 1Result Comment: [12/07/2017] [address]-01 2Result Comment: [12/21/2016] [facility]: [id number] 3Result Comment: [06/10/2015] #3 4Admin Note: per [...] capsule, 5 Refills, Maintenance, 05/07/20 15:54:00EST, [facility], 160.02, cm, 05/01/20 9:18:00 EST, [...] 11:32:00 EST, Aerosol, Route to Pharmacy Electronically, NCPDP_[id number], [facility], 160, cm, [...] Refills, Maintenance, 06/13/20 14:10:00 EDT, Capsule, [facility],... Start Date: 06/13/20 Status: Ordered [...] 1resolved after weight loss 2chronic perst 3gyn 63673 5testing negative insulinoma 6likley dumping sydrome 7abnormal GTT ;sugar 36 two hours into test 8sees gi 9normal CT brain 10new 115.3 cm,right per ct scan recent;seeing gynecology soon;they will review 12vit d deficiency;correct 571546 14per endocrinology monitor 15correction refer GTT; 2 hour glucose 36 16refer GGT 17seeing ortho;pre op 18asma,ama neg/cerulopalsmain wnl,AAT wnl 19Negative hep A antibody positive hep B surface antibody negative antigen negative hep C, normal ferritin 20ukltrasound Social History Social History Type Response Smoking Status Never smoker entered on: 02/20/13 Sex
--- OUTSIDE RECORDS SUMMARY | 2022-08-17 08:23 | XMS_ITS | Continuity of Care Document ---
Author Name Unknown Organization [facility] Address [address] [place] [address]- Care Team Providers Care Early Morning Name Role Phone Louisa LANDRUM, Taras Fuentes Primary Care Physician Encounter [facility] Date(s): 07/13/20 - 08/12/20 [facility] [address] [place] [address]- Allergies, Adverse Reactions, Alerts Substance Reaction Severity [...] Given tetanus/diphtheria/pertussis, acel(Tdap) 11/28/11 Given FluLaval (oldterm) 9/24/12 Given Influenza Virus Vaccine (oldterm) 4 03/24/09 Given Influenza Virus Vaccine (oldterm) 01/04/07 Given Influenza Inactive (IM) (oldterm) 5 12/25/07 Given tetanus-diphtheria toxoids (Td) 08/03/05 Given 1Result Comment: [12/07/2017] [address]-90 2Result Comment: [12/21/2016] [facility]: [id number] 3Result Comment: [06/10/2015] #3 4Admin Note: per pt 5Admin Note: given in clinic Medications acarbose 25 mg oral tablet 1 tablet = 25 mg, By Mouth, 3 times a day, Take 1 tablet 3 times daily with meals. Add to 50mg dosefor total of 75mg 3 times daily. E11.65, # 270 tablet, 3 Refills, Maintenance, 07/15/20 12:23:00 EDT, Tablet, [facility], Partial... Start Date: 07/15/20 Status: Ordered acarbose 50 mg oral tablet 1 tablet = 50 mg, By Mouth, 3 times a day, Take 3 times daily with meals. E11.65, # 90 tablet, 5 Refills, Maintenance, 07/13/20 16:29:00 EDT, Tablet, [facility] [...] 30 tablet, 5 Refills, Maintenance, 07/22/20 8:03:00EDT, [facility], Partial [...] 11:32:00 EST, Aerosol, Route to Pharmacy Electronically, NCPDP_[id number], [facility], 160, cm, 04/29/19 10:47:00 EST, Height... Start Date: 04/29/19 Status: Ordered rifAXIMin 550 mg oral tablet 1 tablet = 550 mg, By Mouth, 3 times a day, # 42 tablet, 0 Refills, Maintenance, 07/14/20 13:37:00 EDT, Tablet, [facility], Partial fill upon patient request if the prescription is for a schedule II opioid drug., 158.02, cm, 07/06... Start Date: 07/14/20 Stop Date: 07/28/20 Status: Ordered Topamax 50 mg oral tablet 2 tablet = 100 mg, By Mouth, Daily at bedtime, # 60 tablet, 6 Refills, Maintenance, 08/04/20 11:44:00 EDT, Tablet, [facility], 158.02, cm, 07/06/20 6:49:00 [...] 6 Refills, Soft Stop, 08/04/20 11:37:00 EDT, [facility], [...] 0 Refills, Maintenance, 06/13/20 14:10:00 EDT, Capsule, [facility],... Start Date: 06/13/20 Status: [...] 1resolved after weight loss 2chronic perst 3gyn [address]178 5testing negative insulinoma 6likley dumping sydrome 7abnormal GTT ;sugar 36 two hours into test 8sees gi 9normal CT brain 10new 115.3 cm,right per ct scan recent;seeing gynecology soon;they will review 12vit d deficiency;correct 965126 14per endocrinology monitor 15correction refer GTT; 2 hour glucose 36 16refer GGT 17seeing ortho;pre op 18asma,ama neg/cerulopalsmain wnl,AAT wnl 19Negative hep A antibody positive hep B surface antibody negative antigen negative hep C, normal ferritin 20ukltrasound Social History Social History Type Response Smoking Status Never smoker entered on: 02/20/13 Sex
--- OUTSIDE RECORDS SUMMARY | 2022-08-17 08:23 | XMS_ITS | Continuity of Care Document ---
Author Name Unknown Organization [facility] Address [address], [address], [address] [place] [address]- Care Team Providers Care City Administrator Name Role Phone Taras Jasso MD Primary Care Physician Encounter [facility] Date(s): 02/14/19 - 02/21/19 [facility] [address], [address], [address] [place] [address]- [facility] Attending Physician: Yvon Alejandre MD Referring Physician: [...] toxoids (Td) 08/03/05 Given 1Result Comment: [12/07/2017] [address]-08 2Result Comment: [12/21/2016] [facility]: [id number] 3Result Comment: [06/10/2015] #3 4Admin Note: per [...] Tot. Refills 11, Maintenance, DX:J45.909 ASTHMA FAX [id number], 12/21/17 11:58:59 EDT, Compound Start Date: 12/21/17 [...] 14:19:44 EST, Aerosol, Route to Pharmacy Electronically, NCPDP_[id number], [facility] Start Date: [...] 05/12/17 8:15:18, Aerosol, Route to Pharmacy Electronically, NCPDP_[id number], [facility]... Start Date: 05/12/17 Status: Ordered tiZANidine [...] perst 3folowed by mental health;recent hospitalization 4gyn 25966 6testing negative insulinoma 7likley dumping sydrome 8abnormal GTT ;sugar 36 two hours into test 9sees gi 10normal CT brain 11new 125.3 cm,right per ct scan recent;seeing gynecology soon;they will review 13vit d deficiency;correct 595882 15per endocrinology monitor 16correction refer GTT; 2 hour glucose 36 17refer GGT 18seeing ortho;pre op 19asma,ama neg/cerulopalsmain wnl,AAT wnl 20Negative hep A antibody positive hep B surface antibody negative antigen negative hep C, normal ferritin 21ukltrasound Vital Signs Most recent to oldest [Reference Range]: 1 Height 158 cm (02/14/19 7:55 AM) Oxygen Saturation [94-100 %] 99 % (02/14/19 7:55 AM) Pulse Rate [55-90 bpm] 77 bpm (02/14/19 7:55 AM) Blood Pressure [90-138/55-84 mm Hg] 104/ 69mm Hg (02/14/19 7:55 AM) Mode of Delivery (Oxygen) Room air (02/14/19 7:55 AM) Blood pressure sites Arm, left (02/14/19 7:55 AM) Social History Social History Type Response Smoking Status Never smoker entered on: 02/20/13 Sex
--- OUTSIDE RECORDS SUMMARY | 2022-08-17 08:23 | XMS_ITS | Continuity of Care Document ---
Author Name Unknown Organization [facility] Address [address] [place] [address]- Care Team Providers Care Intelligence Senior Sergeant Name Role Phone Eran Sue JOHNSON Primary Care Physician [phone] [place] [facility] [place]): 04/16/21 - 05/16/21 [facility] [address] [place] [address]- [place] Allergies, Adverse Reactions, Alerts Substance Reaction Severity Status Dust Allergy to pollen Active Pollen seasonal allergies respiratory symptoms Active Incruse Ellipta 1 lightheaded and migraine Active 1dizzy Immunizations Given and Recorded Vaccine Date Status Refusal Reason SARS-CoV-2 mRNA (mudxhht-aeob-upnqi) vax 05/01/21 Recorded influenza virus vaccine, inactivated [...] toxoids (Td) 08/03/05 Given 1Result Comment: [12/07/2017] [id number] 2Result Comment: [12/21/2016] [facility]: 56322-623-23 3Result Comment: [06/10/2015] #3 4Admin Note: per [...] 3 Refills, Maintenance, 02/03/21 8:34:00 EST, Tablet, [facility], Partial fill upon patient request if the prescript... Start Date: 02/03/21 Status: Ordered acarbose 50 mg oral tablet 1 tablet = 50 mg, By Mouth, 3 times a day, Take 1 tab (plus 1 25mg tab), 3 times daily with meals.,# 270 tablet, 3 Refills, Maintenance, 02/03/21 8:34:00 EST, Tablet, [facility], Partial fill upon patient request if the prescript... Start Date: 02/03/21 Status: Ordered Baqsimi One Pack 3 mg nasal powder See Instructions, 3 mg Once intrasnasally for severe hypoglycemia, # 2 each, 3 Refills, Soft Stop, 08/28/20 10:36:00 EDT, [facility], Partial fill upon patient [...] 5 Refills, Maintenance, 11/06/20 10:28:00 EDT, Tablet, [facility], Replaces loratidine, 158.02, cm, 11/06/20 10:04:00 EDT, Height,67, kg, 09/11/19 11:20:00 EDT, Dry Weight Start Date: 11/06/20 Status: Ordered cholestyramine 4 gm/5 gm oral powder for reconstitution 1 pack/packet, By Mouth, Daily, # 30 pack/packet, 5 Refills, Maintenance, 03/03/21 16:42:00 EST, REC Powder, [facility], Partial fill upon patient [...] per PCP, # 30 mL, 1 Refills, [facility], 158, cm, 04/09/21 8:13:00 EST, Height, 80.6, kg, 03/08/21 12:18:00 EST, Dry Weight Start Date: 04/30/21 Status: Ordered Dexilant 60 mg oral delayed release capsule 1 capsule = 60 mg, By Mouth, 2 times a day, 30 min before meal, # 60 capsule, 5 Refills, Maintenance, 04/16/21 14:29:00 EST, CR Capsule, [facility], Partial fill upon patient request if the prescription is for a schedule II opioi... Start Date: 04/16/21 Status: Ordered Emgality Prefilled Pen 120 mg/mL subcutaneous solution = 240 mg, Subcutaneous Injection, Once, Loading Dose, # 2 kit, 0 Refills, Soft Stop, 03/16/21 16:05:00 EST, [facility], Partial fill upon patient request if the prescription is for a schedule II opioid drug., 158, cm, 03/11/21 9:1... Start Date: 03/16/21 Status: Ordered EPINEPHrine 1 mg/mL injectable solution 0.3 mL = 0.3 mg, Intramuscular, Once, # 1 mL, 1 Refills, Soft Stop, 03/08/21 15:07:00 EST, Solution, [facility], Partial fill upon patient [...] 1 Refills, Soft Stop, 11/20/19 11:59:00 EDT, [facility], 160.02, cm, 11/15/19 10:05:00 EDT, Height, 67, kg, 09/11/19 11:20:00 EDT, Dry Weight Start Date: 11/20/19 Status: Ordered Lidocaine Viscous 2% solution 5 mL = 0.1 Gm, By Mouth, 4 times a day, PRN for epigastric pain, # 200 mL, 1 Refills, Maintenance, 04/06/21 9:45:00 EST, Solution, [facility], Partial fill upon patient request if the prescription is for a schedule II opioid drug.... Start Date: 04/06/21 Status: Ordered meclizine 25 mg oral tablet See Instructions, PRN for dizziness, Take 1 tablet every 8 hours as needed for dizziness, # 15 tablet, 0 Refills, Maintenance, 11/03/20 7:49:00 EDT, Tablet, [facility], Partial fill upon patient request if the prescription is for... Start Date: 11/03/20 Status: Ordered montelukast 10 mg oral tablet 10 mg, 1, tablet, By Mouth, Daily in PM, # 90 tablet, Refills 1, Tot. Refills 1, Maintenance, 04/23/21 12:32:00 EST, Route to Pharmacy Electronically, [facility], 158, cm, 04/09/21 8:13:00 EST, [...] 6 Refills, Maintenance, 12/10/20 12:36:00 EDT,DIS Tablet, [facility], has t... Start Date: 12/10/20 Stop Date: 07/08/21 Status: Ordered Ceiba 0.65% nasal spray 2 sprays, Nares, Both, 4 times a day, # 1 each, 3 Refills, Maintenance, 05/14/21 11:40:00 EST, [facility], Partial fill upon patient request if the prescription is for a scheduleII opioid drug., 2 sprays Nares, Both 4 times a day... Start Date: 05/14/21 Status: Ordered ProAir HFA 90 mcg/inh inhalation aerosol with adapter 2, puffs, Inhalation, Every 4 hours, PRN, # 8.5 Gm, Refills 1, Tot. Refills 1, Maintenance, 05/13/21 19:25:00 EST, Aerosol, Route to Pharmacy Electronically, NCPDP_[id number], [facility], 158, cm, 05/06/21 6:58:00 EST, [...] Gm, Refills 11, Route to Pharmacy Electronically, NCPDP_[id number], [facility], 158.02, cm, 11/13/20 8:38:00 [...] 1resolved after weight loss 2chronic perst 3gyn 65304 5testing negative insulinoma 6likley dumping sydrome 7abnormal GTT ;sugar 36 two hours into test 8sees gi 9normal CT brain 10new 115.3 cm,right per ct scan recent;seeing gynecology soon;they will review 12vit d deficiency;correct 156897 14per endocrinology monitor 15correction refer GTT; 2 hour glucose 36 16refer GGT 17seeing ortho;pre op 18asma,ama neg/cerulopalsmain wnl,AAT wnl 19Negative hep A antibody positive hep B surface antibody negative antigen negative hep C, normal ferritin 20ukltrasound Social History Social History Type Response Smoking Status Never smoker entered on: 02/20/13 Sex
--- OUTSIDE RECORDS SUMMARY | 2022-08-17 08:23 | XMS_ITS | Continuity of Care Document ---
Author Name Unknown Organization [facility] Address [address] [place] [address]- Care Team Providers Care Vocational Placement Specialist Name Role Phone Eran HORSE EXERCISER, Sue Dahl Primary Care Physician [phone] Encounter [facility] Date(s): 03/31/20 - 04/30/20 [facility] [address] [place] [address]- Allergies, Adverse Reactions, Alerts Substance Reaction Severity [...] toxoids (Td) 08/03/05 Given 1Result Comment: [12/07/2017] [address]-27 2Result Comment: [12/21/2016] [facility]: 92230-954-23 3Result Comment: [06/10/2015] #3 4Admin Note: per [...] 03/18/20 10:49:00 EST, Route to Pharmacy Electronically, [facility], 160.02, cm, 03/18/20 7:48:00 [...] 60 capsule, 5 Refills, Maintenance, 12/26/19 12:06:00EDT, [facility], 160.02, cm, 12/02/19 6:45:00 [...] 0 Refills,Maintenance, 10/06/19 21:07:00 EDT, DIS Tablet, [facility] Start Date: 10/06/19 Stop Date: 10/09/19 Status: Ordered ProAir HFA 90 mcg/inh inhalation aerosol with adapter 2, puffs, Inhalation, Every 4 hours, PRN, # 8.5 Gm, Refills 2, Tot. Refills 2, Maintenance, 04/29/19 11:32:00 EST, Aerosol, Route to Pharmacy Electronically, NCPDP_[id number], [facility], 160, cm, 04/29/19 10:47:00 EST, Height... Start Date: 04/29/19 Status: Ordered Readi-Cat 2 oral suspension See Instructions, drink as per radiology instructions prior to CT scan, # 2 each, 0 Refills, Maintenance, 04/23/20 9:57:00 EST, [id number], Partial fill upon patient request if the prescription is for a schedule II opioid drug., drink... Start Date: 04/23/20 Status: Ordered Symbicort 160mcg/4.5mcg Inhaler 2, puffs, Inhalation, 2 times a day, use with spacer chamber, # 1 each, Refills 11, Tot. Refills 11, Maintenance, 07/08/19 13:36:00 EDT, Route to Pharmacy Electronically, NCPDP_[id number], [facility], 160, cm, 07/08/19 13:03:00 [...] tablet, 0 Refills, Maintenance, 09/30/19 11:23:00 EDT, [facility], 160.02, cm, 09/24/19 15:31:00 [...] perst 3folowed by mental health;recent hospitalization 4gyn 86602 6testing negative insulinoma 7likley dumping sydrome 8abnormal GTT ;sugar 36 two hours into test 9sees gi 10normal CT brain 11new 125.3 cm,right per ct scan recent;seeing gynecology soon;they will review 13vit d deficiency;correct 522718 15per endocrinology monitor 16correction refer GTT; 2 hour glucose 36 17refer GGT 18seeing ortho;pre op 19asma,ama neg/cerulopalsmain wnl,AAT wnl 20Negative hep A antibody positive hep B surface antibody negative antigen negative hep C, normal ferritin 21ukltrasound Social History Social History Type Response Smoking Status Never smoker entered on: 02/20/13 Sex
--- OUTSIDE RECORDS SUMMARY | 2022-08-17 08:23 | XMS_ITS | Continuity of Care Document ---
Author Name Unknown Organization [facility] Address Unknown Care Team Providers Care Forest Fire Warden Name Role Phone Sue Barillas NP Primary Care Physician Encounter [facility] [place] Date(s): 09/22/21 - 09/29/21 [facility] Encounter Diagnosis Pelvic abscess in female(Discharge Diagnosis) - 09/22/21 Attending Physician: Avery Costello MD Referring Physician: Sue Barillas NP Allergies, Adverse Reactions, Alerts Substance Reaction Severity Status Dust Allergy to pollen Active Pollen seasonal allergies respiratory symptoms Active Incruse Ellipta 1 lightheaded and migraine Active 1dizzy Immunizations Given and Recorded Vaccine Date Status Refusal Reason SARS-CoV-2 mRNA (iqdesqg-ocrx-xqoxt) vax 05/01/21 Recorded influenza virus vaccine, inactivated [...] toxoids (Td) 08/03/05 Given 1Result Comment: [12/07/2017] [address]-89 2Result Comment: [12/21/2016] [facility]: 76931-477-80 3Result Comment: [06/10/2015] #3 4Admin Note: per pt 5Admin Note: given in clinic Medications acarbose 25 mg oral tablet 1 tablet = 25 mg, By Mouth, 3 times a day, Take 1 tab (plus 1 50mg tab), 3 times daily with meals.,# 270 tablet, 3 Refills, Maintenance, 02/03/21 8:34:00 EST, Tablet, [facility], Partial fill upon patient request if the prescript... Start Date: 02/03/21 Status: Ordered acarbose 50 mg oral tablet 1 tablet = 50 mg, By Mouth, 3 times a day, Take 1 tab (plus 1 25mg tab), 3 times daily with meals.,# 270 tablet, 3 Refills, Maintenance, 02/03/21 8:34:00 EST, Tablet, [facility], Partial fill upon patient [...] constipation, 08/23/21 8:22:00 EDT, Route to Pharmacy Electronically,[facility] 3, Partial fill upon patient... Start Date: 08/23/21 Status: Ordered Dexilant 60 mg oral delayed release capsule 1 capsule = 60 mg, By Mouth, 2 times a day, 30 min before meal, # 60 capsule, 5 Refills, Maintenance, 04/16/21 14:29:00 EST, CR Capsule, [facility], Partial fill upon patient request if the prescription is for a schedule II opioi... Start Date: 04/16/21 Status: Ordered Emgality Prefilled Pen 120 mg/mL subcutaneous solution = 120 mg, Subcutaneous Injection, Once, Maintenance Dose, # 1 kit, 6 Refills, Soft Stop, 06/29/21 10:09:00 EDT, [facility], Partial fill upon patient request if the prescription is for a schedule II opioid drug., 158, cm, 06/29/21... Start Date: 06/29/21 Status: Ordered EPINEPHrine 1 mg/mL injectable solution 0.3 mL = 0.3 mg, Intramuscular, Once, # 1 mL, 1 Refills, Soft Stop, 03/08/21 15:07:00 EST, Solution, [facility], Partial fill upon patient [...] 09/17/21 14:13:00 EDT, Route to Pharmacy Electronically, [facility], 158, cm, 09/16/21 9:43:00 EDT, Height, 71.5, kg, 09/01/21 16:21:00 EDT, D... Start Date: 09/17/21 Status: Ordered meclizine 25 mg oral tablet See Instructions, PRN for dizziness, Take 1 tablet every 8 hours as needed for dizziness, # 15 tablet, 0 Refills, Maintenance, 11/03/20 7:49:00 EDT, Tablet, [facility], Partial fill upon patient request if the prescription is for... Start Date: 11/03/20 Status: Ordered montelukast 10 mg oral tablet 10 mg, 1, tablet, By Mouth, Daily in PM, # 90 tablet, Refills 1, Tot. Refills 1, Maintenance, 04/23/21 12:32:00 EST, Route to Pharmacy Electronically, [facility], 158, cm, 04/09/21 8:13:00 [...] 6 Refills, Maintenance, 12/10/20 12:36:00 EDT,DIS Tablet, [facility], has t... Start Date: [...] 1resolved after weight loss 2chronic perst 3gyn 85607 5testing negative insulinoma 6likley dumping sydrome 7abnormal GTT ;sugar 36 two hours into test 8sees gi 9normal CT brain 10new 115.3 cm,right per ct scan recent;seeing gynecology soon;they will review 12vit d deficiency;correct 631088 14per endocrinology monitor 15correction refer GTT; 2 hour glucose 36 16refer GGT 17seeing ortho;pre op 18asma,ama neg/cerulopalsmain wnl,AAT wnl 19Negative hep A antibody positive hep B surface antibody negative antigen negative hep C, normal ferritin 20ukltrasound Diagnosis Diagnosis Type Effective Dates Health Status Cl inical Service Informant Pelvic abscess in female Discharge Diagnosis 09/22/21 Vital Signs Most recent to oldest [Reference Range]: 1 Height 158 cm (09/22/21 2:38 PM) Weight 70.7 kg (09/22/21 2:38 PM) Body Mass Index [18.5-24.99] 28.32 *H* (09/22/21 2:38 PM) Respiratory Rate [16-30 br/min] 16 br/mi n (09/22/21 2:38 PM) Temperature [96.8-100.4 DegF] 98.9 DegF (09/22/21 2:38 PM) Temperature Route Temporal (09/22/21 2:38 PM) Weight Obtained Via Standing scale (09/22/21 2:38 PM) Social History Social History Type Response Smoking Status Never smoker entered on: 02/20/13 Sex
--- OUTSIDE RECORDS SUMMARY | 2022-08-17 08:23 | XMS_ITS | Continuity of Care Document ---
Author Name Unknown Organization [facility] Address [address] [place] [address]- Care Team Providers Care Svp Innovation Partnerships Name Role Phone Louisa LANDRUM, Taras Fuentes Primary Care Physician [place] [facility] [place]12[place] - 02/22/19 [facility] [address] [place] [address]- [facility] Attending Physician: Konrad Curtis Admitting Physician: Konrad Curtis Referring Physician: Konrad Curtis Allergies, Adverse Reactions, Alerts Substance Reaction Severity [...] toxoids (Td) 08/03/05 Given 1Result Comment: [12/07/2017] [id number] 2Result Comment: [12/21/2016] [facility]: 09178-528-86 3Result Comment: [06/10/2015] #3 4Admin Note: per [...] Tot. Refills 11, Maintenance, DX:J45.909 ASTHMA FAX [id number], 12/21/17 11:58:59 EDT, Compound Start Date: 12/21/17 [...] 14:19:44 EST, Aerosol, Route to Pharmacy Electronically, NCPDP_[id number], [facility] Start Date: [...] 05/12/17 8:15:18, Aerosol, Route to Pharmacy Electronically, NCPDP_[id number], [facility]... Start Date: 05/12/17 Status: Ordered tiZANidine [...] perst 3folowed by mental health;recent hospitalization 4gyn 08038 6testing negative insulinoma 7likley dumping sydrome 8abnormal GTT ;sugar 36 two hours into test 9sees gi 10normal CT brain 11new 125.3 cm,right per ct scan recent;seeing gynecology soon;they will review 13vit d deficiency;correct 307600 15per endocrinology monitor 16correction refer GTT; 2 hour glucose 36 17refer GGT 18seeing ortho;pre op 19asma,ama neg/cerulopalsmain wnl,AAT wnl 20Negative hep A antibody positive hep B surface antibody negative antigen negative hep C, normal ferritin 21ukltrasound Social History Social History Type Response Smoking Status Never smoker entered on: 02/20/13 Sex
--- OUTSIDE RECORDS SUMMARY | 2022-08-17 08:24 | XMS_ITS | Continuity of Care Document ---
Author Name Unknown Organization [facility] Address [address] [place] [address]- Care Team Providers Care Housekeeping Worker Name Role Phone Eran ELIZABETH, Sue Dahl Primary Care Physician [place] [facility] [place] 07/23/[address] [address] Attending Physician: Yulisa Mora MD Admitting Physician: Yulisa Mora MD Allergies, Adverse Reactions, Alerts Substance Reaction Severity Status Dust Allergy to pollen Active Pollen seasonal allergies respiratory symptoms Active Incruse Ellipta 1 lightheaded and migraine Active 1dizzy Immunizations Given and Recorded Vaccine Date Status Refusal Reason [id number] 12y+ bivalent booster vax 1 12/24/21 Given [...] vaccine, inactivated 02/08/11 Give n SARS-CoV-2 mRNA (frhmoph-cuzt-klrai) vax 05/01/21 Recorded zoster vaccine, inactivated 11/03/20 [...] tetanus-diphtheria toxoids (Td) 08/03/05 Given 1Result Comment: [id number] 2Result Comment: [id number] 3Result Comment: [12/07/2017] [id number] 4Result Comment: [12/21/2016] [facility]: [id number] 5Result Comment: [06/10/2015] #3 6Admin Note: per pt 7Admin Note: given in clinic Medications acetaminophen 500 mg oral tablet 2 tablet = 1,000 mg, By Mouth, Every 6 hours, PRN as needed for fever, # 200 tablet, 0 Refills, Maintenance, 12/03/21 10:17:00 EDT, Tablet, [facility], Partial fill upon patient request if the prescription is for a schedule II opi... Start Date: 12/03/21 Status: Ordered Albuterol (Eqv-ProAir HFA) 90 mcg/inh inhalation aerosol 2 puffs, Inhalation, Every 4 hours, PRN NEEDED FOR WHEEZING, # 8.5 Gm, 5 Refills, Maintenance, 03/09/22 11:21:00 EST, [facility], 17, INHALE TWO PUFFS BY [...] 6 Refills, Maintenance, 11/03/21 8:23:00 EDT, Tablet, [facility], 2 tablet By Mouth 2 times a day, 158, cm, 11/03/21 8:01:00 EDT,Height, 71.5, kg, 09/01/21 16:21:00 EDT, Dry Weight Start Date: 11/03/21 Status: Ordered Carafate 1 gm/10 ml oral suspension 10 mL = 1 Gm, By Mouth, 3 times a day before meals and bedtime, # 1,200 mL, 5 Refills, Maintenance,04/29/22 9:16:00 EST, [id number], Partial fill upon patient request if the prescription is for a schedule II opioid drug., 158, cm, 02... Start Date: 04/29/22 Status: Ordered cetirizine 10 mg oral tablet 1 tablet, By Mouth, Daily, # 30 tablet, 5 Refills, Maintenance, 06/03/22 11:40:00 EDT, [facility], 158, cm, 05/25/22 13:59:00 EDT, [...] Refills, Maintenance, 05/30/22 7:57:00 EDT, CR Capsule, [facility], Partial fill upon patient request if the prescription is for a schedule II opioid... Start Date: 05/30/22 Status: Ordered Emgality Prefilled Pen 120 mg/mL subcutaneous solution = 120 mg, Subcutaneous Injection, Once, Maintenance Dose, # 3 kit, 2 Refills, Soft Stop, 07/14/22 10:04:00 EDT, [facility], requesting 3 month supply for cheaper martinez. with 2 refills. had follow up just now, doing great, albertina Baca... Start Date: 07/14/22 Status: Ordered EPINEPHrine 1 mg/mL injectable solution 0.3 mL = 0.3 mg, Intramuscular, Once, # 1 mL, 1 Refills, Soft Stop, 03/08/21 15:07:00 EST, Solution, [facility], Partial fill upon patient request if the prescription is for a schedule II opioid drug., 158, cm, 03/08/21 12:18:00 E... Start Date: 03/08/21 Status: Ordered famotidine 40 mg oral tablet 1 tablet = 40 mg, By Mouth, 2 times a day, # 60 tablet, 6 Refills, Maintenance, 01/31/22 14:05:00 EST, Suspension, [facility], Partial fill upon patient request if the prescription is for a schedule II opioid drug., 163, cm, 01/18... Start Date: 01/31/22 Stop Date: 08/29/22 Status: Ordered Fiber Choice 1.5 g oral tablet, chewable 1 tablet = 1.5 Gm, Chew, 3 times a day, # 90 tablet, 0 Refills, Maintenance, 04/09/22 15:16:00 EST,Chew Tablet, [facility][id number], Partial fill upon patient request if the [...] Refills, Maintenance, 04/09/22 15:16:00 EST, REC Powder, [facility] #[id number], Partial fill upon patient request if the prescription is for a schedule II opioid drug., 17 Gm... Start Date: 04/09/22 Status: Ordered montelukast 10 mg oral tablet 1, tablet, By Mouth, Daily in PM, # 90 tablet, Refills 1, Tot. Refills 1, Maintenance, 11/14/21 11:28:00 EDT, Route to Pharmacy Electronically, [facility], 158, cm, 11/03/21 8:01:00 EDT, Height, 71.5, kg, 09/01/21 16:21:00 EDT, . Start Date: 11/14/21 Status: Ordered Nurtec ODT 75 mg oral tablet, disintegrating See Instructions, TAKE ONE TABLET DAILY NEEDED FOR migraines, DO NOT EXCEED ONE TABLET IN 24 HOURS, # 8 tablet, 6 Refills, Maintenance, 12/28/21 15:14:00 EDT, [facility], 163,cm, 12/24/21 8:20:00 EDT, [...] 0 Refills, Maintenance, 04/09/22 15:17:00 EST, Capsule, [facility] #[id number], Partial fill upon patient request if the prescription is for a schedule II opioid drug., 1 capsule By Mouth Daily in P... Start Date: 04/09/22 Status: Ordered Symbicort 160mcg/4.5mcg Inhaler 2, puffs, Inhalation, 2 times a day, rinse mouth and throat after use, # 10.2 Gm, Refills 2, Tot. Refills 2, Maintenance, 06/10/22 20:48:00 EDT, Route to Pharmacy Electronically, NCPDP_[id number], [facility], 158, cm, 06/07/22 10:... Start [...] Active Vitamin D deficiency Confirmed Active 1gyn 08009 3testing negative insulinoma 4likley dumping sydrome 5abnormal GTT ;sugar 36 two hours into test 6normal CT brain 7new 8resolved after weight loss 9chronic perst 105.3 cm,right per ct scan recent;seeing gynecology soon;they will review 11vit d deficiency;correct 764406 13per endocrinology monitor 14correction refer GTT; 2 hour glucose 36 15refer GGT 16seeing ortho;pre op 17asma,ama neg/cerulopalsmain wnl,AAT wnl 18Negative hep A antibody positive hep B surface antibody negative antigen negative hep C, normal ferritin 19ukltrasound Social History Social History Type Response Smoking Status Never smoker entered on: 02/20/13 Sex Patient Care team information Care Team Personnel Name: Caitlyn Mcgee RN Position: [facility] RN Member Role: Primary Care Nurse Name: Sue Barillas NP Position: [facility] PCO Associate Professional Member Role: PCP Address: Address: [address] [place] [address]- Name: Andria Guadalupe RN Position: [facility] SN RN Member Role: Primary Care Nurse Name: Liz Martin RN Position: S RN Member Role: Primary Care Nurse Name: Ambreen Mcmahon RN Position: [facility] RN Member Role: Primary Care Nurse Name: Irais Grijalva RN Position: [facility] RN Member Role: Primary Care Nurse Name: Autumn Martinez RN Position: [facility] SN RN Member Role: Primary Care Nurse Name: Liz English RN Position: [facility] RN Member Role: Primary Care Nurse Name: Dora Williamson RN Position: [facility] RN Member Role: Primary Care Nurse Care Team Related Persons Name: KHUSHI CUNNINGHAM Address: home [address] [place] [address] Name: BHUPINDER VENEGAS Address: [address] [place] [address] Name: FELIPE FLORES Address: home [address] [place] [address] Name: ARNAV FLORES Address: home [address] [place] [address] Name: IRINA FLORES Address: home [address] [place] [address] Name: RUSLAN FLORES Address: home [address] [place] [address] Name: KAISER PLUNKETT Address: home [address] [place] [address]
--- OUTSIDE RECORDS SUMMARY | 2022-08-17 08:24 | XMS_ITS | Continuity of Care Document ---
Author Name Unknown Organization [facility] lt Address [address] [place] [address]- Care Team Providers Care Industrial Controller Name Role Phone Eran FRAME NAILER, Sue Dahl Primary Care Physician [phone] Encounter [facility] Date(s): 04/23/21 - 05/23/21 [facility] [address] [place] [address]- Allergies, Adverse Reactions, Alerts Substance Reaction Severity Status Dust Allergy to pollen Active Pollen seasonal allergies respiratory symptoms Active Incruse Ellipta 1 lightheaded and migraine Active 1dizzy Immunizations Given and Recorded Vaccine Date Status Refusal Reason SARS-CoV-2 mRNA ([id number]) vax 05/01/21 Recorded influenza virus vaccine, inactivated [...] toxoids (Td) 08/03/05 Given 1Result Comment: [12/07/2017] [address]-73 2Result Comment: [12/21/2016] [facility]: 96948-346-68 3Result Comment: [06/10/2015] #3 4Admin Note: per [...] 3 Refills, Maintenance, 02/03/21 8:34:00 EST, Tablet, [facility], Partial fill upon patient request if the prescript... Start Date: 02/03/21 Status: Ordered acarbose 50 mg oral tablet 1 tablet = 50 mg, By Mouth, 3 times a day, Take 1 tab (plus 1 25mg tab), 3 times daily with meals.,# 270 tablet, 3 Refills, Maintenance, 02/03/21 8:34:00 EST, Tablet, [facility], [...] Mouth, Daily, # 30 tablet, 5 Refills, [facility], 158, cm, 05/14/21 7:52:00 EST, Height, 80.6, kg, 03/08/21 12:18:00 EST, Dry Weight Start Date: 05/22/21 Status: Ordered cholestyramine 4 gm/5 gm oral powder for reconstitution 1 pack/packet, By Mouth, Daily, # 30 pack/packet, 5 Refills, Maintenance, 03/03/21 16:42:00 EST, REC Powder, [facility], Partial [...] per PCP, # 30 mL, 1 Refills, [facility], 158, cm, 04/09/21 8:13:00 EST, Height, 80.6, kg, 03/08/21 12:18:00 EST, Dry Weight Start Date: 04/30/21 Status: Ordered Dexilant 60 mg oral delayed release capsule 1 capsule = 60 mg, By Mouth, 2 times a day, 30 min before meal, # 60 capsule, 5 Refills, Maintenance, 04/16/21 14:29:00 EST, CR Capsule, [facility], Partial fill upon patient request if the prescription is for a schedule II opioi... Start Date: 04/16/21 Status: Ordered Emgality Prefilled Pen 120 mg/mL subcutaneous solution = 240 mg, Subcutaneous Injection, Once, Loading Dose, # 2 kit, 0 Refills, Soft Stop, 03/16/21 16:05:00 EST, [facility], Partial fill upon patient request if the prescription is for a schedule II opioid drug., 158, cm, 03/11/21 9:1... Start Date: 03/16/21 Status: Ordered EPINEPHrine 1 mg/mL injectable solution 0.3 mL = 0.3 mg, Intramuscular, Once, # 1 mL, 1 Refills, Soft Stop, 03/08/21 15:07:00 EST, Solution, [facility], Partial [...] 1 Refills, Maintenance, 04/06/21 9:45:00 EST, Solution, [facility], Partial [...] 04/23/21 12:32:00 EST, Route to Pharmacy Electronically, [facility], 158, cm, 04/09/21 8:13:00 [...] 6 Refills, Maintenance, 12/10/20 12:36:00 EDT,DIS Tablet, [facility], has t... Start Date: 12/10/20 Stop Date: 07/08/21 Status: Ordered Overton 0.65% nasal spray 2 sprays, Nares, Both, 4 times a day, # 1 each, 3 Refills, Maintenance, 05/14/21 11:40:00 EST, [facility], Partial [...] 19:25:00 EST, Aerosol, Route to Pharmacy Electronically, [id number]_[id number], [facility], 158, cm, 05/06/21 6:58:00 EST, Height, 80.... Start Date: 05/13/21 Status: Ordered Reclast = 5 mg, IV Infusion, Once, 0 Refills, Maintenance, 11/06/20 10:24:00 EDT, administered at [facility] 10/2020 Start Date: 11/06/20 Status: Ordered [...] Gm, Refills 11, Route to Pharmacy Electronically, NCPDP_[id number], [facility], 158.02, cm, 11/13/20 8:38:00 [...] 1resolved after weight loss 2chronic perst 3gyn 46552 5testing negative insulinoma 6likley dumping sydrome 7abnormal GTT ;sugar 36 two hours into test 8sees gi 9normal CT brain 10new 115.3 cm,right per ct scan recent;seeing gynecology soon;they will review 12vit d deficiency;correct [id number] 14per endocrinology monitor 15correction refer GTT; 2 hour glucose 36 16refer GGT 17seeing ortho;pre op 18asma,ama neg/cerulopalsmain wnl,AAT wnl 19Negative hep A antibody positive hep B surface antibody negative antigen negative hep C, normal ferritin 20ukltrasound Social History Social History Type Response Smoking Status Never smoker entered on: 02/20/13 Sex
--- OUTSIDE RECORDS SUMMARY | 2022-08-17 08:24 | XMS_ITS | Continuity of Care Document ---
Author Name Unknown Organization [facility] Address Unknown Care Team Providers Care Animal Chiropractor Name Role Phone Louisa LANDRUM, Taras Fuentes Primary Care Physician [phone] Encounter [facility] Date(s): 11/12/20 - 11/19/20 [facility] Attending Physician: Shell Vargas MD Referring Physician: Taras Jasso MD Allergies, [...] toxoids (Td) 08/03/05 Given 1Result Comment: [12/07/2017] [id number] 2Result Comment: [12/21/2016] [facility]: [id number] 3Result Comment: [06/10/2015] #3 4Admin Note: per pt 5Admin Note: given in clinic Medications acarbose 50 mg oral tablet 1 tablet = 50 mg, By Mouth, 3 times a day, Take 3 times daily with meals. E11.65, # 90 tablet, 5 Refills, Maintenance, 07/13/20 16:29:00 EDT, Tablet, [facility] [...] 3 Refills, Soft Stop, 08/28/20 10:36:00 EDT, [facility], [...] 5 Refills, Maintenance, 11/06/20 10:28:00 EDT, Tablet, [facility], Replaces loratidine, 158.02, cm, [...] 0 Refills, Maintenance, 11/03/20 7:49:00 EDT, Tablet, [facility] [...] 6 Refills, Maintenance, 11/12/20 10:44:00 EDT,DIS Tablet, [facility], has t... Start Date: 11/12/20 Status: Ordered Accident 0.65% nasal spray 2 sprays, Nares, Both, 4 times a day, # 1 each, 0 Refills, Maintenance, 10/30/20 11:34:00 EDT, [facility], Partial fill upon patient request if the prescription is for a scheduleII opioid drug., 2 sprays Nares, Both 4 times a day... Start Date: 10/30/20 Status: Ordered pregabalin 75 mg oral capsule 1 capsule = 75 mg, By Mouth, Daily, # 30 capsule, 0 Refills, Maintenance, 08/27/20 9:45:00 EDT, Capsule, [facility], [...] 11:32:00 EST, Aerosol, Route to Pharmacy Electronically, NCPDP_[id number], [facility], 160, cm, 04/29/19 10:47:00 EST, Height... Start Date: 04/29/19 Status: Ordered Reclast = 5 mg, IV Infusion, Once, 0 Refills, Maintenance, 11/06/20 10:24:00 EDT, administered at [facility] 10/2020 Start Date: 11/06/20 Status: Ordered scopolamine 1 mg/72 hr transdermal film, extended release 0 Refills, Maintenance, 11/13/20 9:09:00 EDT, Partial fill upon patient request if the prescriptionis for a schedule II opioid drug. Start Date: 11/13/20 Status: Ordered Symbicort 160mcg/4.5mcg Inhaler 2, puffs, Inhalation, 2 times a day, Refills 0, Maintenance, 08/27/20 9:43:00 EDT, Aerosol Start Date: 08/27/20 Status: Ordered Trazodone By Mouth, 2 times [...] capsule, 5 Refills, Maintenance, 11/12/20 10:43:00 EDT, [facility], [...] 1resolved after weight loss 2chronic perst 3gyn 37049 5testing negative insulinoma 6likley dumping sydrome 7abnormal GTT ;sugar 36 two hours into test 8sees gi 9normal CT brain 10new 115.3 cm,right per ct scan recent;seeing gynecology soon;they will review 12vit d deficiency;correct [id number] 14per endocrinology monitor 15correction refer GTT; 2 hour glucose 36 16refer GGT 17seeing ortho;pre op 18asma,ama neg/cerulopalsmain wnl,AAT wnl 19Negative hep A antibody positive hep B surface antibody negative antigen negative hep C, normal ferritin 20ukltrasound Social History Social History Type Response Smoking Status Never smoker entered on: 02/20/13 Sex
--- OUTSIDE RECORDS SUMMARY | 2022-08-17 08:24 | XMS_ITS | Continuity of Care Document ---
Author Name Unknown Organization [facility] Address [address] [place] [id number]- Care Team Providers Care E Commerce Retailer Name Role Phone Louisa LANDURM, Taras Fuentes Primary Care Physician Encounter [facility] Date(s): 06/22/20 - 07/22/20 [facility] [address] [place] [id number] Allergies, Adverse Reactions, Alerts Substance [...] toxoids (Td) 08/03/05 Given 1Result Comment: [12/07/2017] [id number] 2Result Comment: [12/21/2016] [facility]: [id number] 3Result Comment: [06/10/2015] #3 4Admin Note: per pt 5Admin Note: given in clinic Medications acarbose 25 mg oral tablet 1 tablet = 25 mg, By Mouth, 3 times a day, Take 1 tablet 3 times daily with meals. Add to 50mg dosefor total of 75mg 3 times daily. E11.65, # 270 tablet, 3 Refills, Maintenance, 07/15/20 12:23:00 EDT, Tablet, [facility], Partial... Start Date: 07/15/20 Status: Ordered acarbose 50 mg oral tablet 1 tablet = 50 mg, By Mouth, 3 times a day, Take 3 times daily with meals. E11.65, # 90 tablet, 5 Refills, Maintenance, 07/13/20 16:29:00 EDT, Tablet, [facility], Partial [...] 0 Refills, Maintenance, 07/03/19 13:59:00 EDT, Solution, [facility], 160, cm, 05/29/19 13:36:00 [...] 30 tablet, 5 Refills, Maintenance, 07/22/20 8:03:00EDT, [facility], Partial fill upon [...] 60 capsule, 5 Refills, Maintenance, 05/07/20 15:54:00EST, [facility], 160.02, cm, 05/01/20 9:18:00 [...] 1 Refills, Soft Stop, 11/20/19 11:59:00 EDT, [facility], 160.02, cm, 11/15/19 10:05:00 [...] 02/25/19 16:55:00 EST, Route to Pharmacy Electronically, [facility], 158, cm, 02/14/19 7:55:00 EST, Height, 61.9, kg, 02/12/19 10:17:00... Start Date: 02/25/19 Status: Ordered montelukast 10 mg oral tablet 10 mg, 1, tablet, By Mouth, Daily in PM, # 90 tablet, Refills 3, Tot. Refills 3, Maintenance, 08/15/19 16:21:00 EDT, Route to Pharmacy Electronically, [facility], 160, cm, 08/15/19 13:45:00 EDT, Height, 56.5, kg, 05/29/19 13:36:00... Start Date: 08/15/19 Status: Ordered ProAir HFA 90 mcg/inh inhalation aerosol with adapter 2, puffs, Inhalation, Every 4 hours, PRN, # 8.5 Gm, Refills 2, Tot. Refills 2, Maintenance, 04/29/19 11:32:00 EST, Aerosol, Route to Pharmacy Electronically, NCPDP_[id number], [facility], 160, cm, 04/29/19 10:47:00 EST, Height... Start Date: 04/29/19 Status: Ordered rifAXIMin 550 mg oral tablet 1 tablet = 550 mg, By Mouth, 3 times a day, # 42 tablet, 0 Refills, Maintenance, 07/14/20 13:37:00 EDT, Tablet, [facility], Partial [...] 6 Refills, Maintenance, 03/12/20 11:09:00 EST, Tablet, [facility], weaning zonegran off by [...] 6 Refills, Soft Stop, 03/12/20 11:04:00 EST, [facility], Partial fill upon [...] 0 Refills, Maintenance, 06/13/20 14:10:00 EDT, Capsule, [facility],... Start Date: 06/13/20 Status: [...] 1resolved after weight loss 2chronic perst 3gyn 06659 5testing negative insulinoma 6likley dumping sydrome 7abnormal GTT ;sugar 36 two hours into test 8sees gi 9normal CT brain 10new 115.3 cm,right per ct scan recent;seeing gynecology soon;they will review 12vit d deficiency;correct 390303 14per endocrinology monitor 15correction refer GTT; 2 hour glucose 36 16refer GGT 17seeing ortho;pre op 18asma,ama neg/cerulopalsmain wnl,AAT wnl 19Negative hep A antibody positive hep B surface antibody negative antigen negative hep C, normal ferritin 20ukltrasound Social History Social History Type Response Smoking Status Never smoker entered on: 02/20/13 Sex
--- OUTSIDE RECORDS SUMMARY | 2022-08-17 08:24 | XMS_ITS | Continuity of Care Document ---
Author Name Unknown Organization [facility] Address [address] [place] [address]- Care Team Providers Care Employment Services Director Name Role Phone Louisa LANDRUM, Taras Fuentes Primary Care Physician Encounter [facility] Date(s): 01/08/21 - 02/07/21 [facility] [address] [place] [address]- Attending Physician: Admtr, Ar8 Allergies, Adverse Reactions, [...] toxoids (Td) 08/03/05 Given 1Result Comment: [12/07/2017] [id number] 2Result Comment: [12/21/2016] [facility]: [id number] 3Result Comment: [06/10/2015] #3 4Admin Note: per [...] 3 Refills, Maintenance, 02/03/21 8:34:00 EST, Tablet, [facility], Partial fill upon patient request if the prescript... Start Date: 02/03/21 Status: Ordered acarbose 50 mg oral tablet 1 tablet = 50 mg, By Mouth, 3 times a day, Take 1 tab (plus 1 25mg tab), 3 times daily with meals.,# 270 tablet, 3 Refills, Maintenance, 02/03/21 8:34:00 EST, Tablet, [facility], Partial fill upon patient request if the prescript... Start Date: 02/03/21 Status: Ordered Baqsimi One Pack 3 mg nasal powder See Instructions, 3 mg Once intrasnasally for severe hypoglycemia, # 2 each, 3 Refills, Soft Stop, 08/28/20 10:36:00 EDT, [facility], Partial fill upon patient [...] 5 Refills, Maintenance, 11/06/20 10:28:00 EDT, Tablet, [facility], Replaces loratidine, 158.02, cm, [...] 1 Refills, Soft Stop, 11/20/19 11:59:00 EDT, [facility], 160.02, cm, 11/15/19 10:05:00 EDT, Height, 67, kg, 09/11/19 11:20:00 EDT, Dry Weight Start Date: 11/20/19 Status: Ordered meclizine 25 mg oral tablet See Instructions, PRN for dizziness, Take 1 tablet every 8 hours as needed for dizziness, # 15 tablet, 0 Refills, Maintenance, 11/03/20 7:49:00 EDT, Tablet, [facility], Partial fill upon patient [...] 6 Refills, Maintenance, 12/10/20 12:36:00 EDT,DIS Tablet, [facility], has t... Start Date: 12/10/20 Stop Date: 07/08/21 Status: Ordered Elwin 0.65% nasal spray 2 sprays, Nares, Both, 4 times a day, # 1 each, 0 Refills, Maintenance, 10/30/20 11:34:00 EDT, [facility], Partial fill upon patient [...] 8:26:00 EDT, Aerosol, Route to Pharmacy Electronically, NCPDP_[id number], [facility], 158.02, cm, 01/06/21 8:03:00 EDT, Height, 6... Start Date: 01/06/21 Status: Ordered Reclast = 5 mg, IV Infusion, Once, 0 Refills, Maintenance, 11/06/20 10:24:00 EDT, administered at [facility] 10/2020 Start Date: 11/06/20 Status: Ordered SQ [...] Gm, Refills 11, Route to Pharmacy Electronically, NCPDP_[id number], [facility], 158.02, cm, 11/13/20 8:38:00 [...] PRN Pain , Moderate, 0 Refills, Maintenance, :21:00 EST, Partial fill upon patient request if the prescription is for a schedule II opioid drug. Start Date: 01/15/21 Status: Ordered Vitamin B-12 1000 mcg/mL injectable solution See Instructions, 1,000 mcg Subcutaneous Every 7 days x 8 weeks then once a month there after per PCP, # 30 mL, 1 Refills, Maintenance, 01/06/21 13:36:00 EDT, [facility], Partialfill upon patient request [...] 1resolved after weight loss 2chronic perst 3gyn 02812 5testing negative insulinoma 6likley dumping sydrome 7abnormal GTT ;sugar 36 two hours into test 8sees gi 9normal CT brain 10new 115.3 cm,right per ct scan recent;seeing gynecology soon;they will review 12vit d deficiency;correct [id number] 14per endocrinology monitor 15correction refer GTT; 2 hour glucose 36 16refer GGT 17seeing ortho;pre op 18asma,ama neg/cerulopalsmain wnl,AAT wnl 19Negative hep A antibody positive hep B surface antibody negative antigen negative hep C, normal ferritin 20ukltrasound Procedures Procedure Date Related Diagnosis Body Site Status EGD - Esophagogastroduodenos copy- resolving ulcer suspected 09/08/20 Comple irvin Gastric sleeve revision 08/19/[address] of chest, abdomen and pel vis- RML 0.3cm noncalcified pulm nodule, hiatal hernia 03/08/20 Completed EMG LUE normal 12/14/19 Completed Plain X-ray lumbar spine abn ormal post [...]
--- OUTSIDE RECORDS SUMMARY | 2022-08-17 08:24 | XMS_ITS | Continuity of Care Document ---
Author Name Unknown Organization [facility] ter Address [address] [place] [address]- Care Team Providers Care Mental Health Tech Name Role Phone Eran DOCKETING SPECIALIST, Sue Dahl Primary Care Physician Encounter [facility] Date(s): 05/20/22 - 06/29/[address] [address] Attending Physician: Yulisa Mora MD Admitting Physician: Yulisa Mora MD Allergies, Adverse Reactions, Alerts Substance Reaction Severity Status Dust Allergy to pollen Active Pollen seasonal allergies respiratory symptoms Active Incruse Ellipta 1 lightheaded and migraine Active 1dizzy Immunizations Given and Recorded Vaccine Date Status Refusal Reason [id number] 12y+ bivalent booster vax 1 12/24/21 Given [...] vaccine, inactivated 02/08/11 Give n SARS-CoV-2 mRNA ([id number]) vax 05/01/21 Recorded zoster vaccine, inactivated 11/03/20 [...] tetanus-diphtheria toxoids (Td) 08/03/05 Given 1Result Comment: [address]-6 2Result Comment: 20730-857-88 3Result Comment: [12/07/2017] [address]-44 4Result Comment: [12/21/2016] [facility]: [id number] 5Result Comment: [06/10/2015] #3 6Admin Note: per pt 7Admin Note: given in clinic Medications acetaminophen 500 mg oral tablet 2 tablet = 1,000 mg, By Mouth, Every 6 hours, PRN as needed for fever, # 200 tablet, 0 Refills, Maintenance, 12/03/21 10:17:00 EDT, Tablet, [facility], Partial fill upon patient request if the prescription is for a schedule II opi... Start Date: 12/03/21 Status: Ordered Albuterol (Eqv-ProAir HFA) 90 mcg/inh inhalation aerosol 2 puffs, Inhalation, Every 4 hours, PRN NEEDED FOR WHEEZING, # 8.5 Gm, 5 Refills, Maintenance, 03/09/22 11:21:00 EST, [facility], 17, INHALE TWO PUFFS BY MOUTH [...] 6 Refills, Maintenance, 11/03/21 8:23:00 EDT, Tablet, [facility], 2 tablet By Mouth 2 times a day, 158, cm, 11/03/21 8:01:00 EDT,Height, 71.5, kg, 09/01/21 16:21:00 EDT, Dry Weight Start Date: 11/03/21 Status: Ordered Carafate 1 gm/10 ml oral suspension 10 mL = 1 Gm, By Mouth, 3 times a day before meals and bedtime, # 1,200 mL, 5 Refills, Maintenance,04/29/22 9:16:00 EST, [facility] #[id number], Partial fill upon patient request if the prescription is for a schedule II opioid drug., 158, cm, 02... Start Date: 04/29/22 Status: Ordered cetirizine 10 mg oral tablet 1 tablet, By Mouth, Daily, # 30 tablet, 5 Refills, Maintenance, 06/03/22 11:40:00 EDT, [facility], 158, cm, 05/25/22 13:59:00 EDT, Height, [...] Refills, Maintenance, 05/30/22 7:57:00 EDT, CR Capsule, [facility], Partial fill upon patient request if the prescription is for a schedule II opioid... Start Date: 05/30/22 Status: Ordered Emgality Prefilled Pen 120 mg/mL subcutaneous solution = 120 mg, Subcutaneous Injection, Once, Maintenance Dose, # 3 kit, 2 Refills, Soft Stop, 03/17/22 8:08:00 EST, [facility], requesting 3 month supply for cheaper martinez. with 2 refills, 163, cm, 03/15/22 10:13:00 EST, Height, 68.1,... Start Date: 03/17/22 Status: Ordered EPINEPHrine 1 mg/mL injectable solution 0.3 mL = 0.3 mg, Intramuscular, Once, # 1 mL, 1 Refills, Soft Stop, 03/08/21 15:07:00 EST, Solution, [facility], Partial fill upon patient request if the prescription is for a schedule II opioid drug., 158, cm, 03/08/21 12:18:00 E... Start Date: 03/08/21 Status: Ordered famotidine 40 mg oral tablet 1 tablet = 40 mg, By Mouth, 2 times a day, # 60 tablet, 6 Refills, Maintenance, 01/31/22 14:05:00 EST, Suspension, [facility], Partial fill upon patient request if the prescription is for a schedule II opioid drug., 163, cm, 01/18... Start Date: 01/31/22 Stop Date: 08/29/22 Status: Ordered Fiber Choice 1.5 g oral tablet, chewable 1 tablet = 1.5 Gm, Chew, 3 times a day, # 90 tablet, 0 Refills, Maintenance, 04/09/22 15:16:00 EST,Chew Tablet, [facility] #[id number], Partial fill upon patient request if the [...] Refills, Maintenance, 04/09/22 15:16:00 EST, REC Powder, [facility] #[id number], Partial fill upon patient request if the prescription is for a schedule II opioid drug., 17 Gm... Start Date: 04/09/22 Status: Ordered montelukast 10 mg oral tablet 1, tablet, By Mouth, Daily in PM, # 90 tablet, Refills 1, Tot. Refills 1, Maintenance, 11/14/21 11:28:00 EDT, Route to Pharmacy Electronically, [facility], 158, cm, 11/03/21 8:01:00 EDT, Height, 71.5, kg, 09/01/21 16:21:00 EDT, . Start Date: 11/14/21 Status: Ordered Nurtec ODT 75 mg oral tablet, disintegrating See Instructions, TAKE ONE TABLET DAILY NEEDED FOR migraines, DO NOT EXCEED ONE TABLET IN 24 HOURS, # 8 tablet, 6 Refills, Maintenance, 12/28/21 15:14:00 EDT, [facility], 163,cm, 12/24/21 8:20:00 EDT, Height, 67, [...] each, 0 Refills, Maintenance, 04/06/22 15:29:00 EST, [facility] #[id number], Partial fi... Start Date: 04/06/22 Status: Ordered Reclast = 5 mg, IV Infusion, Once, 0 Refills, Maintenance, 11/06/20 10:24:00 EDT, administered at [facility] 10/2020 Start Date: 11/06/20 Status: Ordered Stool Softener + Stimulant Laxative 50 mg-8.6 mg oral capsule 1 capsule, By Mouth, Daily in PM, # 60 capsule, 0 Refills, Maintenance, 04/09/22 15:17:00 EST, Capsule, [facility] #[id number], Partial fill upon patient request if the prescription is for a schedule II opioid drug., 1 capsule By Mouth Daily in P... Start Date: 04/09/22 Status: Ordered Symbicort 160mcg/4.5mcg Inhaler 2, puffs, Inhalation, 2 times a day, rinse mouth and throat after use, # 10.2 Gm, Refills 2, Tot. Refills 2, Maintenance, 06/10/22 20:48:00 EDT, Route to Pharmacy Electronically, NCPDP_[id number], [facility], 158, cm, 06/07/22 10:... Start Date: [...] Active Vitamin D deficiency Confirmed Active 1gyn 38217 3testing negative insulinoma 4likley dumping sydrome 5abnormal GTT ;sugar 36 two hours into test 6normal CT brain 7new 8resolved after weight loss 9chronic perst 105.3 cm,right per ct scan recent;seeing gynecology soon;they will review 11vit d deficiency;correct [id number] 13per endocrinology monitor 14correction refer GTT; 2 hour glucose 36 15refer GGT 16seeing ortho;pre op 17asma,ama neg/cerulopalsmain wnl,AAT wnl 18Negative hep A antibody positive hep B surface antibody negative antigen negative hep C, normal ferritin 19ukltrasound Social History Social History Type Response Smoking Status Never smoker entered on: 02/20/13 Sex Patient Care team information Care Team Personnel Name: Caitlyn Mcgee RN Position: [facility] RN Member Role: Primary Care Nurse Name: Sue Barillas NP Position: [facility] PCO Associate Professional Member Role: PCP Address: Address: [address] [place] [address]- Name: Andria Guadalupe RN Position: [facility] SN RN Member Role: Primary Care Nurse Name: Liz Martin RN Position: [facility] RN Member Role: Primary Care Nurse Name: Ambreen Mcmahon RN Position: [facility] RN Member Role: Primary Care Nurse Name: Irais Grijalva RN Position: [facility] RN Member Role: Primary Care Nurse Name: Autumn Martinez RN Position: [facility] SN RN Member Role: Primary Care Nurse Name: Liz English RN Position: [facility] RN Member Role: Primary Care Nurse Name: Dora Williamson RN Position: [facility] RN Member Role: Primary Care Nurse Care Team Related Persons Name: KHUSHI CUNNINGHAM Address: home [address] [place] [address] Name: BHUPINDER VENEGAS Address: [address] [place] [address] Name: FELIPE FLORES Address: home [address] [place] [address] Name: ARNAV FLORES Address: home [address] [place] [address] Name: IRINA FLORES Address: home [address] [place] [address] Name: RUSLAN FLORES Address: home [address] [place] [address] Name: KAISER PLUNKETT Address: home [address] [place] [address]
--- OUTSIDE RECORDS SUMMARY | 2022-08-17 08:24 | XMS_ITS | Continuity of Care Document ---
Author Name Unknown Organization [facility] Address [address] [place] [address]- Care Team Providers Care Bankruptcy Assistant Name Role Phone Eran Sue JOHNSON Primary Care Physician [phone] Encounter [facility] Date(s): 06/01/22 - 07/01/22 [facility] [address] [place] [address]- [place] Allergies, Adverse Reactions, Alerts Substance Reaction Severity Status Dust Allergy to pollen Active Pollen seasonal allergies respiratory symptoms Active Incruse Ellipta 1 lightheaded and migraine Active 1dizzy Immunizations Given and Recorded Vaccine Date Status Refusal Reason [id number] 12y+ bivalent booster vax 1 12/24/21 Given [...] vaccine, inactivated 02/08/11 Give n SARS-CoV-2 mRNA ([id number]) vax 05/01/21 Recorded zoster vaccine, inactivated 11/03/20 [...] tetanus-diphtheria toxoids (Td) 08/03/05 Given 1Result Comment: [id number] 2Result Comment: [id number] 3Result Comment: [12/07/2017] [id number] 4Result Comment: [12/21/2016] [facility]: [id number] 5Result Comment: [06/10/2015] #3 6Admin Note: per pt 7Admin Note: given in clinic Medications acetaminophen 500 mg oral tablet 2 tablet = 1,000 mg, By Mouth, Every 6 hours, PRN as needed for fever, # 200 tablet, 0 Refills, Maintenance, 12/03/21 10:17:00 EDT, Tablet, [facility], Partial fill upon patient request if the prescription is for a schedule II opi... Start Date: 12/03/21 Status: Ordered Albuterol (Eqv-ProAir HFA) 90 mcg/inh inhalation aerosol 2 puffs, Inhalation, Every 4 hours, PRN NEEDED FOR WHEEZING, # 8.5 Gm, 5 Refills, Maintenance, 03/09/22 11:21:00 EST, [facility], 17, INHALE TWO PUFFS BY [...] 6 Refills, Maintenance, 11/03/21 8:23:00 EDT, Tablet, [facility], 2 tablet By Mouth 2 times a day, 158, cm, 11/03/21 8:01:00 EDT,Height, 71.5, kg, 09/01/21 16:21:00 EDT, Dry Weight Start Date: 11/03/21 Status: Ordered Carafate 1 gm/10 ml oral suspension 10 mL = 1 Gm, By Mouth, 3 times a day before meals and bedtime, # 1,200 mL, 5 Refills, Maintenance,04/29/22 9:16:00 EST, [facility] #[id number], Partial fill upon patient request if the prescription is for a schedule II opioid drug., 158, cm, 02... Start Date: 04/29/22 Status: Ordered cetirizine 10 mg oral tablet 1 tablet, By Mouth, Daily, # 30 tablet, 5 Refills, Maintenance, 06/03/22 11:40:00 EDT, [facility], 158, cm, 05/25/22 13:59:00 EDT, [...] Refills, Maintenance, 05/30/22 7:57:00 EDT, CR Capsule, [facility], Partial fill upon patient request if the prescription is for a schedule II opioid... Start Date: 05/30/22 Status: Ordered Emgality Prefilled Pen 120 mg/mL subcutaneous solution = 120 mg, Subcutaneous Injection, Once, Maintenance Dose, # 3 kit, 2 Refills, Soft Stop, 03/17/22 8:08:00 EST, [facility], requesting 3 month supply for cheaper martinez. with 2 refills, 163, albertina, 03/15/22 10:13:00 EST, Height, 68.1,... Start Date: 03/17/22 Status: Ordered EPINEPHrine 1 mg/mL injectable solution 0.3 mL = 0.3 mg, Intramuscular, Once, # 1 mL, 1 Refills, Soft Stop, 03/08/21 15:07:00 EST, Solution, [facility], Partial fill upon patient request if the prescription is for a schedule II opioid drug., 158, cm, 03/08/21 12:18:00 E... Start Date: 03/08/21 Status: Ordered famotidine 40 mg oral tablet 1 tablet = 40 mg, By Mouth, 2 times a day, # 60 tablet, 6 Refills, Maintenance, 01/31/22 14:05:00 EST, Suspension, [facility], Partial fill upon patient request if the prescription is for a schedule II opioid drug., 163, cm, 01/18... Start Date: 01/31/22 Stop Date: 08/29/22 Status: Ordered Fiber Choice 1.5 g oral tablet, chewable 1 tablet = 1.5 Gm, Chew, 3 times a day, # 90 tablet, 0 Refills, Maintenance, 04/09/22 15:16:00 EST,Chew Tablet, [facility] #[id number], Partial fill upon patient request if the [...] Refills, Maintenance, 04/09/22 15:16:00 EST, REC Powder, [facility] #[id number], Partial fill upon patient request if the prescription is for a schedule II opioid drug., 17 Gm... Start Date: 04/09/22 Status: Ordered montelukast 10 mg oral tablet 1, tablet, By Mouth, Daily in PM, # 90 tablet, Refills 1, Tot. Refills 1, Maintenance, 11/14/21 11:28:00 EDT, Route to Pharmacy Electronically, [facility], 158, cm, 11/03/21 8:01:00 EDT, Height, 71.5, kg, 09/01/21 16:21:00 EDT, . Start Date: 11/14/21 Status: Ordered Nurtec ODT 75 mg oral tablet, disintegrating See Instructions, TAKE ONE TABLET DAILY NEEDED FOR migraines, DO NOT EXCEED ONE TABLET IN 24 HOURS, # 8 tablet, 6 Refills, Maintenance, 12/28/21 15:14:00 EDT, [facility], 163,cm, 12/24/21 8:20:00 EDT, Height, [...] each, 0 Refills, Maintenance, 04/06/22 15:29:00 EST, [facility] #[id number], Partial fi... Start Date: 04/06/22 Status: Ordered Reclast = 5 mg, IV Infusion, Once, 0 Refills, Maintenance, 11/06/20 10:24:00 EDT, administered at [facility] 10/2020 Start Date: 11/06/20 Status: Ordered Stool Softener + Stimulant Laxative 50 mg-8.6 mg oral capsule 1 capsule, By Mouth, Daily in PM, # 60 capsule, 0 Refills, Maintenance, 04/09/22 15:17:00 EST, Capsule, [facility] #[id number], Partial fill upon patient request if the prescription is for a schedule II opioid drug., 1 capsule By Mouth Daily in P... Start Date: 04/09/22 Status: Ordered Symbicort 160mcg/4.5mcg Inhaler 2, puffs, Inhalation, 2 times a day, rinse mouth and throat after use, # 10.2 Gm, Refills 2, Tot. Refills 2, Maintenance, 06/10/22 20:48:00 EDT, Route to Pharmacy Electronically, NCPDP_[id number], [facility], 158, cm, 06/07/22 10:... Start [...] Active Vitamin D deficiency Confirmed Active 1gyn 25260 3testing negative insulinoma 4likley dumping sydrome 5abnormal GTT ;sugar 36 two hours into test 6normal CT brain 7new 8resolved after weight loss 9chronic perst 105.3 cm,right per ct scan recent;seeing gynecology soon;they will review 11vit d deficiency;correct 391987 13per endocrinology monitor 14correction refer GTT; 2 [...] Name: Sue Barillas NP Position: [facility] PCO Associate Professional Member Role: PCP Address: Address: [address] [place], [place] [address] Name: Andria Guadalupe RN Position: [facility] SN RN Member Role: Primary Care Nurse Name: Liz Martin RN Position: [facility] RN Member Role: Primary Care Nurse Name: Ambreen Mcmahon RN Position: [facility] RN Member Role: Primary Care Nurse Name: Irais Grijalva RN Position: [facility] RN Member Role: Primary Care Nurse Name: Autumn Martinez RN Position: [facility] SN RN Member Role: Primary Care Nurse Name: Liz English RN Position: [facility] RN Member Role: Primary Care Nurse Name: Dora Williamson RN Position: [facility] RN Member Role: Primary Care Nurse Care Team Related Persons Name: HKUSHI CUNNINGHAM Address: [address] [place] [address] Name: BHUPINDER VENEGAS Address: [address] [place] [address] Name: FELIPE FLORES Address: home [address] [place] [address] Name: ARNAV FLORES Address: home [address] [place] [address] Name: IRINA FLORES Address: home [address] [place] [address] Name: RUSLAN FLORES Address: home [address] [place] [address] Name: KAISER PLUNKETT Address: home [address] [place] [address]
--- OUTSIDE RECORDS SUMMARY | 2022-08-17 08:24 | XMS_ITS | Continuity of Care Document ---
Author Name Unknown Organization [facility] Address [address] [place] [address]- Care Team Providers Care Head Of Science Name Role Phone Louisa LANDRUM, Taras Fuentes Primary Care Physician Encounter [facility] Date(s): 08/27/20 - 09/26/[address] [address] Attending Physician: Konrad Curtis Admitting Physician: AdmKonrad ruvalcaba Referring Physician: AdmtrKonrad Allergies, Adverse Reactions, Alerts [...] toxoids (Td) 08/03/05 Given 1Result Comment: [12/07/2017] [id number] 2Result Comment: [12/21/2016] [facility]: [id number] 3Result Comment: [06/10/2015] #3 4Admin Note: per pt 5Admin Note: given in clinic Medications acarbose 50 mg oral tablet 1 tablet = 50 mg, By Mouth, 3 times a day, Take 3 times daily with meals. E11.65, # 90 tablet, 5 Refills, Maintenance, 07/13/20 16:29:00 EDT, Tablet, [facility], Partial [...] 0 Refills, Maintenance, 07/03/19 13:59:00 EDT, Solution, [facility], 160, cm, 05/29/19 13:36:00 EDT, Height, 56.5, kg, 03... Start Date: 07/03/19 Status: Ordered amitriptyline 50 mg oral tablet 1 tablet = 50 mg, By Mouth, Daily at bedtime, # 30 tablet, 5 Refills, Maintenance, 07/22/20 8:03:00EDT, [facility], Partial fill upon patient request if the prescription is for a schedule II opioid drug., 158.02, cm, 07/06/20 6:4... Start Date: 07/22/20 Status: Ordered Baqsimi One Pack 3 mg nasal powder See Instructions, 3 mg Once intrasnasally for severe hypoglycemia, # 2 each, 3 Refills, Soft Stop, 08/28/20 10:36:00 EDT, [facility], Partial fill upon [...] 1 Refills, Soft Stop, 11/20/19 11:59:00 EDT, [facility], 160.02, cm, 11/15/19 10:05:00 [...] 02/25/19 16:55:00 EST, Route to Pharmacy Electronically, [facility], 158, cm, 02/14/19 7:55:00 EST, Height, 61.9, kg, 02/12/19 10:17:00... Start Date: 02/25/19 Status: Ordered montelukast 10 mg oral tablet 10 mg, 1, tablet, By Mouth, Daily in PM, # 90 tablet, Refills 3, Tot. Refills 3, Maintenance, 08/15/19 16:21:00 EDT, Route to Pharmacy Electronically, [facility], 160, cm, 08/15/19 13:45:00 [...] 0 Refills, Maintenance, 08/27/20 9:45:00 EDT, Capsule, [facility], Partial fill [...] 11:32:00 EST, Aerosol, Route to Pharmacy Electronically, NCPDP_[id number], [facility], 160, cm, 04/29/19 10:47:00 EST, Height... Start Date: 04/29/19 Status: Ordered Symbicort 160mcg/4.5mcg Inhaler 2, puffs, Inhalation, 2 times a day, Refills 0, Maintenance, 08/27/20 9:43:00 EDT, Aerosol Start Date: 08/27/20 Status: Ordered Topamax 50 mg oral tablet 2 tablet = 100 mg, By Mouth, Daily at bedtime, # 60 tablet, 6 Refills, Maintenance, 08/04/20 11:44:00 EDT, Tablet, [facility], 158.02, cm, 07/06/20 6:49:00 EDT, Height, [...] 6 Refills, Soft Stop, 08/04/20 11:37:00 EDT, [facility], Partial fill upon [...] 1resolved after weight loss 2chronic perst 3gyn 23457 5testing negative insulinoma 6likley dumping sydrome 7abnormal GTT ;sugar 36 two hours into test 8sees gi 9normal CT brain 10new 115.3 cm,right per ct scan recent;seeing gynecology soon;they will review 12vit d deficiency;correct [id number] 14per endocrinology monitor 15correction refer GTT; 2 hour glucose 36 16refer GGT 17seeing ortho;pre op 18asma,ama neg/cerulopalsmain wnl,AAT wnl 19Negative hep A antibody positive hep B surface antibody negative antigen negative hep C, normal ferritin 20ukltrasound Social History Social History Type Response Smoking Status Never smoker entered on: 02/20/13 Sex
--- OUTSIDE RECORDS SUMMARY | 2022-08-17 08:24 | XMS_ITS | Continuity of Care Document ---
Author Name Unknown Organization [facility] Address [address] [place] [address]- Care Team Providers Care Clearing Hand Name Role Phone Eran Sue JOHNSON Primary Care Physician [place] [facility] [place]/22 [facility] [address] [place] [address]- [place] Allergies, Adverse Reactions, Alerts Substance Reaction Severity Status Dust Allergy to pollen Active Pollen seasonal allergies respiratory symptoms Active Incruse Ellipta 1 lightheaded and migraine Active 1dizzy Immunizations Given and Recorded Vaccine Date Status Refusal Reason [id number] 12y+ bivalent booster vax 1 12/24/21 Given [...] vaccine, inactivated 02/08/11 Give n SARS-CoV-2 mRNA ([id number]) vax 05/01/21 Recorded zoster vaccine, inactivated 11/03/20 [...] tetanus-diphtheria toxoids (Td) 08/03/05 Given 1Result Comment: [address]-0 2Result Comment: 87831-296-80 3Result Comment: [12/07/2017] [address]-94 4Result Comment: [12/21/2016] [facility]: 51153-294-82 5Result Comment: [06/10/2015] #3 6Admin Note: per pt 7Admin Note: given in clinic Medications acarbose 25 mg oral tablet See Instructions, 1 tablet with 50 mg (total 75 mg) By Mouth before lunch, # 30 each, 11 Refills, Maintenance, 11/03/21 8:24:00 EDT, Tablet, [facility], 158, cm, 11/03/21 8:01:00EDT, Height, 71.5, kg, 09/01/21 16:21:00 EDT, Dry W... Start Date: 11/03/21 Status: Ordered acarbose 50 mg oral tablet See Instructions, 1 tablet with 25 mg (total 75 mg) By Mouth before lunch, # 30 each, 11 Refills, Maintenance, 11/03/21 8:23:00 EDT, Tablet, [facility], Partial fill upon patientrequest if the prescription is for a schedule II op... Start Date: 11/03/21 Status: Ordered acetaminophen 500 mg oral tablet 2 tablet = 1,000 mg, By Mouth, Every 6 hours, PRN as needed for fever, # 200 tablet, 0 Refills, Maintenance, 12/03/21 10:17:00 EDT, Tablet, [facility], Partial fill upon patient request if the prescription is for a schedule II opi... Start Date: 12/03/21 Status: Ordered Albuterol (Eqv-ProAir HFA) 90 mcg/inh inhalation aerosol 2 puffs, Inhalation, Every 4 hours, PRN NEEDED FOR WHEEZING, # 8.5 Gm, 1 Refills, Maintenance, 12/03/21 14:16:00 EDT, [facility], 18, INHALE TWO PUFFS EVERY 4 HOURS NEEDED FOR WHEEZING, 163, cm, 12/03/21 9:39:00 EDT, Height,... Start Date: 12/03/21 Status: Ordered calcium (as citrate)-vitamin D 315 mg-250 intl units oral tablet 2 tablet, By Mouth, 2 times a day, # 120 tablet, 6 Refills, Maintenance, 11/03/21 8:23:00 EDT, Tablet, [facility], 2 tablet By Mouth 2 [...] Refills, Maintenance, 11/22/21 9:49:00 EDT, CR Capsule, [facility], Partial fill upon patient request if the prescription is for a schedule II opioid... Start Date: 11/22/21 Status: Ordered Emgality Prefilled Pen 120 mg/mL subcutaneous solution = 120 mg, Subcutaneous Injection, Once, Maintenance Dose, # 1 kit, 6 Refills, Soft Stop, 12/30/21 12:19:00 EDT, [facility], Partial fill upon patient request if the prescription is for a schedule II opioid drug., 163, cm, 12/24/21... Start Date: 12/30/21 Status: Ordered EPINEPHrine 1 mg/mL injectable solution 0.3 mL = 0.3 mg, Intramuscular, Once, # 1 mL, 1 Refills, Soft Stop, 03/08/21 15:07:00 EST, Solution, [facility], Partial fill upon [...] 11/15/21 10:56:00 EDT, Route to Pharmacy Electronically, [facility], 158, cm, 11/03/21 8:01:00 EDT, Height, 71.5, kg, 09/01/21 16:21:00 EDT, Mark Start Date: 11/15/21 Status: Ordered montelukast 10 mg oral tablet 1, tablet, By Mouth, Daily in PM, # 90 tablet, Refills 1, Tot. Refills 1, Maintenance, 11/14/21 11:28:00 EDT, Route to Pharmacy Electronically, [facility], 158, cm, 11/03/21 8:01:00 EDT, Height, 71.5, kg, 09/01/21 16:21:00 EDT, Start Date: 11/14/21 Status: Ordered Nurtec ODT 75 mg oral tablet, disintegrating See Instructions, TAKE ONE TABLET DAILY NEEDED FOR migraines, DO NOT EXCEED ONE TABLET IN 24 HOURS, # 8 tablet, 6 Refills, Maintenance, 12/28/21 15:14:00 EDT, [facility], 163,cm, 12/24/21 8:20:00 EDT, Height, 67, kg, 11/26/21... Start Date: 12/28/21 Status: Ordered Paxlovid 150 mg-100 mg (150 mg-100 mg Dose) oral tablet See Instructions, Take 3 tablets by mouth twice a day for 5 days GFR avove 60, # 30 tablet, 0 Refills, Maintenance, 01/18/22 8:00:00 EST, [facility], Partial fill upon patient request if the prescription is for a schedule II opio... Start Date: 01/18/22 Status: Ordered Reclast = 5 mg, IV Infusion, Once, 0 Refills, Maintenance, 11/06/20 10:24:00 EDT, administered at [facility] 10/2020 Start Date: 11/06/20 Status: Ordered [...] 11/23/21 19:57:00 EDT, Route to Pharmacy Electronically, NCPDP_[id number], [facility], 158, cm, 11/03/21 8:0... Start [...] Refills, Maintenance, 12/10/21 9:44:00 EDT, Tablet, [facility], Partial fill upon [...] Active Vitamin D deficiency Confirmed Active 1gyn 11934 3testing negative insulinoma 4likley dumping sydrome 5abnormal GTT ;sugar 36 two hours into test 6sees gi 7normal CT brain 8new 9resolved after weight loss 10chronic perst 115.3 cm,right per ct scan recent;seeing gynecology soon;they will review 12vit d deficiency;correct [id number] 14per endocrinology monitor 15correction refer GTT; 2 hour glucose 36 16refer GGT 17seeing ortho;pre op 18asma,ama neg/cerulopalsmain wnl,AAT wnl 19Negative hep A antibody positive hep B surface antibody negative antigen negative hep C, normal ferritin 20ukltrasound Social History Social History Type Response Smoking Status Never smoker entered on: 02/20/13 Sex Patient Care team information Care Team Personnel Name: Caitlyn Mcgee RN Position: [facility] RN Member Role: Primary Care Nurse Name: Sue Barillas NP Position: [facility] PCO Associate Professional Member Role: PCP Address: Address: [address] [place] [address]- Name: Andria Guadalupe RN Position: [facility] RN Member Role: Primary Care Nurse Name: Liz Martin RN Position: [facility] RN Member Role: Primary Care Nurse Name: Ambreen Mcmahon RN Position: [facility] RN Member Role: Primary Care Nurse Name: Irasi Grijalva RN Position: [facility] RN Member Role: Primary Care Nurse Name: Autumn Martinez RN Position: [facility] RN Member Role: Primary Care Nurse Name: Concha Mckinley RN Position: [facility] RN Member Role: Primary Care Nurse Name: Liz English RN Position: [facility] RN Member Role: Primary Care Nurse Name: Dora Williamosn RN Position: [facility] RN Member Role: Primary Care Nurse Care Team Related Persons Name: KHUSHI CUNNINGHAM Address: home [address] [place] [address] Name: BHUPINDER VENEGAS Address: home [address] [place] [address] Name: FELIPE FLORES Address: home [address] [place] [address] Name: ARNAV FLORES Address: home [address] [place] [address] Name: IRINA FLORES Address: home [address] [place] [address] Name: RUSLAN FLORES Address: home [address] [place] [address] Name: KAISER PLUNKETT Address: home [address] [place] [address]
--- OUTSIDE RECORDS SUMMARY | 2022-08-17 08:24 | XMS_ITS | Continuity of Care Document ---
Author Name Unknown Organization [facility] Address [address] [place] [address]- Care Team Providers Care Hogshead Opener Name Role Phone Louisa LANDRUM, Taras Fuentes Primary Care Physician [phone] [place] [facility] [place]/19 [facility] [address] [place] [address]- [facility] Attending Physician: Konrad Curtis Admitting [...] toxoids (Td) 08/03/05 Given 1Result Comment: [12/07/2017] [id number] 2Result Comment: [12/21/2016] [facility]: 61273-178-16 3Result Comment: [06/10/2015] #3 4Admin Note: per [...] Gm, 2 Refills, Maintenance, 03/22/19 10:44:00 EST, Boulevard, [facility], 1 sprays Nares, Both [...] Tot. Refills 11, Maintenance, DX:[id number] ASTHMA FAX [id number], 12/21/17 11:58:59 EDT, Compound Start Date: 12/21/17 [...] 10:40:00 EST, Aerosol, Route to Pharmacy Electronically, NCPDP_[id number], [facility], 158, cm, 03/22/19 10:31:00 [...] 05/12/17 8:15:18, Aerosol, Route to Pharmacy Electronically, NCPDP_[id number], [facility]... Start Date: 05/12/17 Status: Ordered tiZANidine [...] perst 3folowed by mental health;recent hospitalization 4gyn 58566 6testing negative insulinoma 7likley dumping sydrome 8abnormal GTT ;sugar 36 two hours into test 9sees gi 10normal CT brain 11new 125.3 cm,right per ct scan recent;seeing gynecology soon;they will review 13vit d deficiency;correct 013113 15per endocrinology monitor 16correction refer GTT; 2 hour glucose 36 17refer GGT 18seeing ortho;pre op 19asma,ama neg/cerulopalsmain wnl,AAT wnl 20Negative hep A antibody positive hep B surface antibody negative antigen negative hep C, normal ferritin 21ukltrasound Social History Social History Type Response Smoking Status Never smoker entered on: 02/20/13 Sex
--- OUTSIDE RECORDS SUMMARY | 2022-08-17 08:24 | XMS_ITS | Continuity of Care Document ---
Author Name Unknown Organization [facility] Address [address] [place] [address]- Care Team Providers Care Steel Rigger Name Role Phone Louisa LANDRUM, Taras Fuentes Primary Care Physician [place] [facility] [place] 04/06/20 - 05/06/20 [facility] [address] [place] [address]- Allergies, Adverse Reactions, Alerts Substance Reaction Severity [...] toxoids (Td) 08/03/05 Given 1Result Comment: [12/07/2017] [address]-99 2Result Comment: [12/21/2016] [facility]: 81068-096-51 3Result Comment: [06/10/2015] #3 4Admin Note: per [...] 0 Refills, Maintenance, 07/03/19 13:59:00 EDT, Solution, [facility], 160, cm, 05/29/19 13:36:00 EDT, Height, 56.5, kg, 03... Start Date: 07/03/19 Status: Ordered amitriptyline 25 mg oral tablet 25 mg, 1, tablet, By Mouth, Daily at bedtime, # 30 tablet, Refills 5, Tot. Refills 5, Maintenance, 03/18/20 10:49:00 EST, Route to Pharmacy Electronically, [facility], 160.02, cm, 03/18/20 7:48:00 EST, [...] 05/01/20 9:35:00 EST, Route to Pharmacy Electronically, [facility], 160.02, cm, 05/01/20 9:18:00 EST, Hei... Start Date: 05/01/20 Stop Date: 05/08/20 Status: Ordered Dexilant 60 mg oral delayed release capsule 1 capsule = 60 mg, By Mouth, 2 times a day, # 60 capsule, 5 Refills, Maintenance, 12/26/19 12:06:00EDT, [facility], 160.02, cm, 12/02/19 6:45:00 EDT, [...] 02/25/19 16:55:00 EST, Route to Pharmacy Electronically, [facility], 158, cm, [...] 0 Refills,Maintenance, 10/06/19 21:07:00 EDT, DIS Tablet, [facility] Start Date: 10/06/19 Stop Date: 10/09/19 Status: Ordered ProAir HFA 90 mcg/inh inhalation aerosol with adapter 2, puffs, Inhalation, Every 4 hours, PRN, # 8.5 Gm, Refills 2, Tot. Refills 2, Maintenance, 04/29/19 11:32:00 EST, Aerosol, Route to Pharmacy Electronically, NCPDP_[id number], [facility], 160, cm, 04/29/19 10:47:00 EST, Height... Start Date: 04/29/19 Status: Ordered Symbicort 160mcg/4.5mcg Inhaler 2, puffs, Inhalation, 2 times a day, use with spacer chamber, # 1 each, Refills 11, Tot. Refills 11, Maintenance, 07/08/19 13:36:00 EDT, Route to Pharmacy Electronically, NCPDP_[id number], [facility], 160, cm, 07/08/19 13:03:00 ED... Start Date: 07/08/19 Status: Ordered Topamax 50 mg oral tablet See Instructions, take 1 tab in am and 2 tab at bedtime. If AM dose causes bad sedation, add to HS dose., # 90 tablet, 6 Refills, Maintenance, 03/12/20 11:09:00 EST, Tablet, [facility], weaning zonegran off by 25mg [...] 6 Refills, Soft Stop, 03/12/20 11:04:00 EST, [facility], Partial fill upon patient request if the prescription is for a schedule II opioid drug., 160.02, cm, 03/10/20 8:18:00 EST, H... Start Date: 03/12/20 Stop Date: 10/08/20 Status: Ordered Zofran 4 mg oral tablet 1 tablet = 4 mg, By Mouth, Every 8 hours, PRN Nausea & Vomiting, # 30 tablet, 0 Refills, Maintenance, 09/30/19 11:23:00 EDT, [facility], 160.02, cm, 09/24/19 15:31:00 EDT, [...] perst 3folowed by mental health;recent hospitalization 4gyn [address] 6testing negative insulinoma 7likley dumping sydrome 8abnormal GTT ;sugar 36 two hours into test 9sees gi 10normal CT brain 11new 125.3 cm,right per ct scan recent;seeing gynecology soon;they will review 13vit d deficiency;correct 387806 15per endocrinology monitor 16correction refer GTT; 2 hour glucose 36 17refer GGT 18seeing ortho;pre op 19asma,ama neg/cerulopalsmain wnl,AAT wnl 20Negative hep A antibody positive hep B surface antibody negative antigen negative hep C, normal ferritin 21ukltrasound Social History Social History Type Response Smoking Status Never smoker entered on: 02/20/13 Sex
--- OUTSIDE RECORDS SUMMARY | 2022-08-17 08:25 | XMS_ITS | Continuity of Care Document ---
Author Name Unknown Organization [facility] Address [address] [place] [address]- Care Team Providers Care Radiography Technician Name Role Phone Eran ELIZABETH, Sue Dahl Primary Care Physician [place] [facility] [place] 02/14/20 - 03/15/20 [facility] [address] [place] [address]- Attending Physician: Konrad Curtis Admitting Physician: Konrad [...] toxoids (Td) 08/03/05 Given 1Result Comment: [12/07/2017] [id number] 2Result Comment: [12/21/2016] [facility]: 10135-679-29 3Result Comment: [06/10/2015] #3 4Admin Note: per [...] 12/30/19 11:47:00 EDT, Route to Pharmacy Electronically, [facility], 160.02, cm, 12/02/19 6:45:00 EDT, [...] 60 capsule, 5 Refills, Maintenance, 12/26/19 12:06:00EDT, [facility], 160.02, cm, 12/02/19 6:45:00 EDT, [...] EDT, Tablet Start Date: 05/24/18 Status: Ordered lidocaine 4% topical film 1 patch, Topically, Daily, for 7 days, # 6 patch, 0 Refills, Acute 03/17/20 8:36:00 EST, 03/10/20 8:36:00 EST, Film, [facility], 1 patch Topically Daily,x7 days, 160.02, cm, 03/10/20 8:18:00 EST, Height, 67, kg, 09/11/19 11:20:00... Start Date: 03/10/20 Stop Date: 03/17/20 Status: Ordered loratadine 10 mg oral tablet 10 mg, 1, tablet, By Mouth, Daily, # 30 tablet, Refills 11, Tot. Refills 11, Maintenance, 02/25/19 16:55:00 EST, Route to Pharmacy Electronically, [facility], 158, cm, [...] 0 Refills,Maintenance, 10/06/19 21:07:00 EDT, DIS Tablet, [facility] Start Date: 10/06/19 Stop Date: 10/09/19 Status: Ordered ProAir HFA 90 mcg/inh inhalation aerosol with adapter 2, puffs, Inhalation, Every 4 hours, PRN, # 8.5 Gm, Refills 2, Tot. Refills 2, Maintenance, 04/29/19 11:32:00 EST, Aerosol, Route to Pharmacy Electronically, NCPDP_[id number], [facility], 160, cm, 04/29/19 10:47:00 EST, Height... Start Date: 04/29/19 Status: Ordered Symbicort 160mcg/4.5mcg Inhaler 2, puffs, Inhalation, 2 times a day, use with spacer chamber, # 1 each, Refills 11, Tot. Refills 11, Maintenance, 07/08/19 13:36:00 EDT, Route to Pharmacy Electronically, NCPDP_[id number], [facility], 160, cm, 07/08/19 13:03:00 ED... Start Date: 07/08/19 Status: Ordered Topamax 50 mg oral tablet See Instructions, take 1 tab in am and 2 tab at bedtime. If AM dose causes bad sedation, add to HS dose., # 90 tablet, 6 Refills, Maintenance, 03/12/20 11:09:00 EST, Tablet, [facility], weaning zonegran off by [...] 6 Refills, Soft Stop, 03/12/20 11:04:00 EST, [facility], [...] tablet, 0 Refills, Maintenance, 09/30/19 11:23:00 EDT, [facility], 160.02, cm, 09/24/19 15:31:00 EDT, [...] perst 3folowed by mental health;recent hospitalization 4gyn 89254 6testing negative insulinoma 7likley dumping sydrome 8abnormal GTT ;sugar 36 two hours into test 9sees gi 10normal CT brain 11new 125.3 cm,right per ct scan recent;seeing gynecology soon;they will review 13vit d deficiency;correct 607282 15per endocrinology monitor 16correction refer GTT; 2 hour glucose 36 17refer GGT 18seeing ortho;pre op 19asma,ama neg/cerulopalsmain wnl,AAT wnl 20Negative hep A antibody positive hep B surface antibody negative antigen negative hep C, normal ferritin 21ukltrasound Social History Social History Type Response Smoking Status Never smoker entered on: 02/20/13 Sex
--- OUTSIDE RECORDS SUMMARY | 2022-08-17 08:25 | XMS_ITS | Continuity of Care Document ---
Author Name Unknown Organization [facility] Address [address] [place] [address]- Care Team Providers Care Advanced Solutions Architect Name Role Phone Louisa LANDRUM, Taras Fuentes Primary Care Physician Encounter [facility] [place] Date(s): 04/29/19 - 05/06/19 [facility] [address] [place] [address]- [facility] Encounter Diagnosis Pain, abdominal(Discharge Diagnosis) - 04/29/19 Attending Physician: Javier TINNING MACHINE SET UP OPERATORAmanda Allergies, Adverse Reactions, Alerts Substance Reaction Severity [...] toxoids (Td) 08/03/05 Given 1Result Comment: [12/07/2017] [address]-77 2Result Comment: [12/21/2016] [facility]: 59783-545-07 3Result Comment: [06/10/2015] #3 4Admin Note: per pt 5Admin Note: given in clinic Medications amoxicillin 500 mg oral tablet See Instructions, 4 by mouth one hour prior dental work, # 4 tablet, 1 Refills, Maintenance, 04/24/19 10:41:00 EST, [facility], 160, cm, 04/11/19 12:38:00 [...] 02/25/19 16:55:00 EST, Route to Pharmacy Electronically, [facility], 158, cm, 02/14/19 7:55:00 EST, Height, 61.9, kg, 02/12/19 10:17:00... Start Date: 02/25/19 Status: Ordered ProAir HFA 90 mcg/inh inhalation aerosol with adapter 2, puffs, Inhalation, Every 4 hours, PRN, # 8.5 Gm, Refills 2, Tot. Refills 2, Maintenance, 04/29/19 11:32:00 EST, Aerosol, Route to Pharmacy Electronically, NCPDP_[id number], [facility], 160, cm, 04/29/19 10:47:00 [...] 0 Refills, Maintenance, 04/29/19 11:38:00 EST, Tablet, [facility], 160, cm, 04/29/19 10:47:00 EST, Height, 64.5, kg, 04/06/19 19:26:00 EST, Dry Weight Start Date: 04/29/19 Status: Ordered Zonegran 25 mg oral capsule 2 capsule = 50 mg, By Mouth, 2 times a day, after weaning off topamax start this medication, # 120 capsule, 5 Refills, Maintenance, 04/12/19 12:59:00 EST, Capsule, [facility], 160, cm, 04/11/19 12:38:00 [...] perst 3folowed by mental health;recent hospitalization 4gyn 84438 6testing negative insulinoma 7likley dumping sydrome 8abnormal GTT ;sugar 36 two hours into test 9sees gi 10normal CT brain 11new 125.3 cm,right per ct scan recent;seeing gynecology soon;they will review 13vit d deficiency;correct 670295 15per endocrinology monitor 16correction refer GTT; 2 hour glucose 36 17refer GGT 18seeing ortho;pre op 19asma,ama neg/cerulopalsmain wnl,AAT wnl 20Negative hep A antibody positive hep B surface antibody negative antigen negative hep C, normal ferritin 21ukltrasound Diagnosis Diagnosis Type Effective Dates Health Status Cl inical Service Informant Pain, abdominal Discharge Diagnosis 04/29/19 Vital Signs Most recent to oldest [Reference Range]: 1 Height 160 cm (04/29/19 10:47 AM) Weight 63.6 kg (04/29/19 10:47 AM) Oxygen Saturation [94-100 %] 95 % (04/29/19 10:47 AM) Pulse Rate [55-90 bpm] 103 bpm *H* (04/29/19 10:47 AM) Body Mass Index [18.5-24.99] 24.84 (04/29/19 10:47 AM) Blood Pressure [90-138/55-84 mm Hg] 94/6 0mm Hg (04/29/19 10:47 AM) Respiratory Rate [16-30 br/min] 16 br/mi n (04/29/19 10:47 AM) Temperature [96.8-100.4 DegF] 97.8 DegF (04/29/19 10:47 AM) Mode of Delivery (Oxygen) Room air (04/29/19 10:47 AM) Blood pressure sites Arm, left (04/29/19 10:47 AM) Temperature Route Oral (04/29/19 10:47 AM) Weight Obtained Via Standing scale (04/29/19 10:47 AM) Social History Social History Type Response Smoking Status Never smoker entered on: 02/20/13 Sex
--- OUTSIDE RECORDS SUMMARY | 2022-08-17 08:25 | XMS_ITS | Continuity of Care Document ---
Author Name Unknown Organization [facility] Oswaldo lt Address [address] [place] [address]- Care Team Providers Care Division Service Manager Name Role Phone Louisa LANDRUM, Taras Fuentes Primary Care Physician Encounter [facility] Date(s): 05/01/20 - 05/08/20 [facility] Adult [address] [place] [address]- Encounter Diagnosis Oral candidiasis(Discharge Diagnosis) - 05/01/20 Attending Physician: Not on Staff, Attending MD [...] toxoids (Td) 08/03/05 Given 1Result Comment: [12/07/2017] [address]-64 2Result Comment: [12/21/2016] [facility]: 38514-592-03 3Result Comment: [06/10/2015] #3 4Admin Note: per [...] 60 capsule, 5 Refills, Maintenance, 05/07/20 15:54:00EST, [facility], 160.02, cm, 05/01/20 9:18:00 [...] 11:32:00 EST, Aerosol, Route to Pharmacy Electronically, NCPDP_[id number], [facility], 160, cm, 04/29/19 10:47:00 EST, Height... Start Date: 04/29/19 Status: Ordered Topamax 50 mg oral tablet See Instructions, take 1 tab in am and 2 tab at bedtime. If AM dose causes bad sedation, add to HS dose., # 90 tablet, 6 Refills, Maintenance, 03/12/20 11:09:00 EST, Tablet, [facility], weaning zonegran off by 25mg every 2 days t... Start Date: 03/12/20 Status: Ordered ubrogepant 100 mg oral tablet 1 tablet = 100 mg, By Mouth, Daily, # 10 tablet, 6 Refills, Soft Stop, 03/12/20 11:04:00 EST, [facility], Partial fill [...] perst 3folowed by mental health;recent hospitalization 4gyn 48091 6testing negative insulinoma 7likley dumping sydrome 8abnormal GTT ;sugar 36 two hours into test 9sees gi 10normal CT brain 11new 125.3 cm,right per ct scan recent;seeing gynecology soon;they will review 13vit d deficiency;correct [id number] 15per endocrinology monitor 16correction refer GTT; 2 hour glucose 36 17refer GGT 18seeing ortho;pre op 19asma,ama neg/cerulopalsmain wnl,AAT wnl 20Negative hep A antibody positive hep B surface antibody negative antigen negative hep C, normal ferritin 21ukltrasound Diagnosis Diagnosis Type Effective Dates Health Status Clinical Service Informant Oral candidiasis Discharge Diagnosis 05/01/20 Vital Signs Most recent to oldest [Reference Range]: 1 Height 160.02 cm (05/01/20 9:18 AM) Weight 79.6 kg (05/01/20 9:18 AM) Oxygen Saturation [94-100 %] 98 % (05/01/20 9:18 AM) Pulse Rate [55-90 bpm] 66 bpm (05/01/20 9:18 AM) Body Mass Index [18.5-24.99] 31.09 *>HHI* (05/01/20 9:18 AM) Blood Pressure [90-138/55-84 mm Hg] 98/6 2mm Hg (05/01/20 9:18 AM) Respiratory Rate [16-30 br/min] 12 br/mi n *L* (05/01/20 9:18 AM) Temperature [96.8-100.4 DegF] 97.8 DegF (05/01/20 9:18 AM) Mode of Delivery (Oxygen) Room air (05/01/20 9:18 AM) Blood pressure sites Arm, right (05/01/20 9:18 AM) Temperature Route Oral (05/01/20 9:18 AM) Weight Obtained Via Standing scale (05/01/20 9:18 AM) Social History Social History Type Response Smoking Status Never smoker entered on: 02/20/13 Sex
--- OUTSIDE RECORDS SUMMARY | 2022-08-17 08:25 | XMS_ITS | Continuity of Care Document ---
Author Name Unknown Organization [facility] Address [address] [place] [address]- Care Team Providers Care Tire Builder Name Role Phone Eran Sue JOHNSON Primary Care Physician [phone] Encounter [facility] Date(s): 12/03/21 - 01/02/22 [facility] [address] [place] [address]- Attending Physician: Konrad Curtis Admitting Physician: Konrad Curtis Referring Physician: AdmtrKonrad Allergies, Adverse Reactions, Alerts Substance Reaction Severity Status Dust Allergy to pollen Active Pollen seasonal allergies respiratory symptoms Active Incruse Ellipta 1 lightheaded and migraine Active 1dizzy Immunizations Given and Recorded Vaccine Date Status Refusal Reason [id number] 12y+ bivalent booster vax 1 12/24/21 Given [...] vaccine, inactivated 02/08/11 Give n SARS-CoV-2 mRNA ([id number]) vax 05/01/21 Recorded zoster vaccine, inactivated 11/03/20 [...] tetanus-diphtheria toxoids (Td) 08/03/05 Given 1Result Comment: [address]-8 2Result Comment: [id number] 3Result Comment: [12/07/2017] [address]-80 4Result Comment: [12/21/2016] [facility]: 80643-479-92 5Result Comment: [06/10/2015] #3 6Admin Note: per pt 7Admin Note: given in clinic Medications acarbose 25 mg oral tablet See Instructions, 1 tablet with 50 mg (total 75 mg) By Mouth before lunch, # 30 each, 11 Refills, Maintenance, 11/03/21 8:24:00 EDT, Tablet, [facility], 158, cm, 11/03/21 8:01:00EDT, Height, 71.5, kg, 09/01/21 16:21:00 EDT, Dry W... Start Date: 11/03/21 Status: Ordered acarbose 50 mg oral tablet See Instructions, 1 tablet with 25 mg (total 75 mg) By Mouth before lunch, # 30 each, 11 Refills, Maintenance, 11/03/21 8:23:00 EDT, Tablet, [facility], Partial fill upon patientrequest if the prescription is for a schedule II op... Start Date: 11/03/21 Status: Ordered acetaminophen 500 mg oral tablet 2 tablet = 1,000 mg, By Mouth, Every 6 hours, PRN as needed for fever, # 200 tablet, 0 Refills, Maintenance, 12/03/21 10:17:00 EDT, Tablet, [facility], Partial fill upon patient request if the prescription is for a schedule II opi... Start Date: 12/03/21 Status: Ordered Albuterol (Eqv-ProAir HFA) 90 mcg/inh inhalation aerosol 2 puffs, Inhalation, Every 4 hours, PRN NEEDED FOR WHEEZING, # 8.5 Gm, 1 Refills, Maintenance, 12/03/21 14:16:00 EDT, [facility], 18, INHALE TWO PUFFS EVERY 4 HOURS NEEDED FOR WHEEZING, 163, cm, 12/03/21 9:39:00 EDT, Height,... Start Date: 12/03/21 Status: Ordered calcium (as citrate)-vitamin D 315 mg-250 intl units oral tablet 2 tablet, By Mouth, 2 times a day, # 120 tablet, 6 Refills, Maintenance, 11/03/21 8:23:00 EDT, Tablet, [facility], 2 tablet By Mouth 2 [...] Refills, Maintenance, 11/22/21 9:49:00 EDT, CR Capsule, [facility], Partial fill upon patient request if the prescription is for a schedule II opioid... Start Date: 11/22/21 Status: Ordered Emgality Prefilled Pen 120 mg/mL subcutaneous solution = 120 mg, Subcutaneous Injection, Once, Maintenance Dose, # 1 kit, 6 Refills, Soft Stop, 12/30/21 12:19:00 EDT, [facility], Partial fill upon patient request if the prescription is for a schedule II opioid drug., 163, cm, 12/24/21... Start Date: 12/30/21 Status: Ordered EPINEPHrine 1 mg/mL injectable solution 0.3 mL = 0.3 mg, Intramuscular, Once, # 1 mL, 1 Refills, Soft Stop, 03/08/21 15:07:00 EST, Solution, [facility], Partial fill upon patient request [...] 11/15/21 10:56:00 EDT, Route to Pharmacy Electronically, [facility], 158, cm, 11/03/21 8:01:00 EDT, Height, 71.5, kg, 09/01/21 16:21:00 EDTMark Start Date: 11/15/21 Status: Ordered montelukast 10 mg oral tablet 1, tablet, By Mouth, Daily in PM, # 90 tablet, Refills 1, Tot. Refills 1, Maintenance, 11/14/21 11:28:00 EDT, Route to Pharmacy Electronically, [facility], 158, cm, 11/03/21 8:01:00 EDT, Height, 71.5, kg, 09/01/21 16:21:00 EDT, Start Date: 11/14/21 Status: Ordered Nurtec ODT 75 mg oral tablet, disintegrating See Instructions, TAKE ONE TABLET DAILY NEEDED FOR migraines, DO NOT EXCEED ONE TABLET IN 24 HOURS, # 8 tablet, 6 Refills, Maintenance, 12/28/21 15:14:00 EDT, [facility], 163,cm, 12/24/21 8:20:00 EDT, Height, [...] 11/23/21 19:57:00 EDT, Route to Pharmacy Electronically, NCPDP_[id number], [facility], 158, cm, 11/03/21 8:0... Start [...] 5 Refills, Maintenance, 12/10/21 9:44:00 EDT, Tablet, [facility], Partial fill upon patient request [...] Active Vitamin D deficiency Confirmed Active 1gyn 94966 3testing negative insulinoma 4likley dumping sydrome 5abnormal GTT ;sugar 36 two hours into test 6sees gi 7normal CT brain 8new 9resolved after weight loss 10chronic perst 115.3 cm,right per ct scan recent;seeing gynecology soon;they will review 12vit d deficiency;correct 258607 14per endocrinology monitor 15correction refer GTT; 2 hour glucose 36 16refer GGT 17seeing ortho;pre op 18asma,ama neg/cerulopalsmain wnl,AAT wnl 19Negative hep A antibody positive hep B surface antibody negative antigen negative hep C, normal ferritin 20ukltrasound Social History Social History Type Response Smoking Status Never smoker entered on: 02/20/13 Sex Patient Care team information Personnel Name: Eran JOHNSON, Sue Dahl Address: Address: [address] [place] [id number]
--- OUTSIDE RECORDS SUMMARY | 2022-08-17 08:25 | XMS_ITS | Continuity of Care Document ---
Author Name Unknown Organization [facility] Oswaldo lt Address [address] [place] [address]- Care Team Providers Care Research And Development Director Name Role Phone Louisa LANDRUM, Taras Fuentes Primary Care Physician [phone] Encounter [facility] Date(s): 06/10/20 - 07/10/20 [facility] Adult [address] [place] [address]- Allergies, Adverse Reactions, Alerts Substance Reaction Severity [...] toxoids (Td) 08/03/05 Given 1Result Comment: [12/07/2017] [id number] 2Result Comment: [12/21/2016] [facility]: 13639-045-49 3Result Comment: [06/10/2015] #3 4Admin Note: per [...] 0 Refills, Maintenance, 07/03/19 13:59:00 EDT, Solution, [facility], 160, cm, 05/29/19 13:36:00 [...] 60 capsule, 5 Refills, Maintenance, 05/07/20 15:54:00EST, [facility], 160.02, cm, 05/01/20 9:18:00 [...] 1 Refills, Soft Stop, 11/20/19 11:59:00 EDT, [facility], 160.02, cm, 11/15/19 10:05:00 [...] 02/25/19 16:55:00 EST, Route to Pharmacy Electronically, [facility], 158, cm, 02/14/19 7:55:00 EST, Height, 61.9, kg, 02/12/19 10:17:00... Start Date: 02/25/19 Status: Ordered montelukast 10 mg oral tablet 10 mg, 1, tablet, By Mouth, Daily in PM, # 90 tablet, Refills 3, Tot. Refills 3, Maintenance, 08/15/19 16:21:00 EDT, Route to Pharmacy Electronically, [facility], 160, cm, 08/15/19 13:45:00 EDT, Height, 56.5, kg, 05/29/19 13:36:00... Start Date: 08/15/19 Status: Ordered ProAir HFA 90 mcg/inh inhalation aerosol with adapter 2, puffs, Inhalation, Every 4 hours, PRN, # 8.5 Gm, Refills 2, Tot. Refills 2, Maintenance, 04/29/19 11:32:00 EST, Aerosol, Route to Pharmacy Electronically, NCPDP_[id number], [facility], 160, cm, 04/29/19 10:47:00 EST, Height... Start Date: 04/29/19 Status: Ordered Topamax 50 mg oral tablet See Instructions, take 1 tab in am and 2 tab at bedtime. If AM dose causes bad sedation, add to HS dose., # 90 tablet, 6 Refills, Maintenance, 03/12/20 11:09:00 EST, Tablet, [facility], weaning zonegran off by [...] 6 Refills, Soft Stop, 03/12/20 11:04:00 EST, [facility], Partial fill upon patient [...] 0 Refills, Maintenance, 06/13/20 14:10:00 EDT, Capsule, [facility],... Start Date: 06/13/20 Status: [...] 1resolved after weight loss 2chronic perst 3gyn [address]33 5testing negative insulinoma 6likley dumping sydrome 7abnormal GTT ;sugar 36 two hours into test 8sees gi 9normal CT brain 10new 115.3 cm,right per ct scan recent;seeing gynecology soon;they will review 12vit d deficiency;correct 623756 14per endocrinology monitor 15correction refer GTT; 2 hour glucose 36 16refer GGT 17seeing ortho;pre op 18asma,ama neg/cerulopalsmain wnl,AAT wnl 19Negative hep A antibody positive hep B surface antibody negative antigen negative hep C, normal ferritin 20ukltrasound Social History Social History Type Response Smoking Status Never smoker entered on: 02/20/13 Sex
--- OUTSIDE RECORDS SUMMARY | 2022-08-17 08:25 | XMS_ITS | Continuity of Care Document ---
Author Name Unknown Organization [facility] Address [address] [place] [address]- Care Team Providers Care Java Programmer Analyst Name Role Phone Eran Sue JOHNSON Primary Care Physician [phone] Encounter [facility] Date(s): 08/18/21 - 09/17/21 [facility] [address] [place] [address]- [place] Allergies, Adverse Reactions, Alerts Substance Reaction Severity Status Dust Allergy to pollen Active Pollen seasonal allergies respiratory symptoms Active Incruse Ellipta 1 lightheaded and migraine Active 1dizzy Immunizations Given and Recorded Vaccine Date Status Refusal Reason SARS-CoV-2 mRNA (ckjeigt-etyl-acdlz) vax 05/01/21 Recorded influenza virus vaccine, inactivated [...] toxoids (Td) 08/03/05 Given 1Result Comment: [12/07/2017] [address]-89 2Result Comment: [12/21/2016] [facility]: [id number] 3Result Comment: [06/10/2015] #3 4Admin Note: per pt 5Admin Note: given in clinic Medications acarbose 25 mg oral tablet 1 tablet = 25 mg, By Mouth, 3 times a day, Take 1 tab (plus 1 50mg tab), 3 times daily with meals.,# 270 tablet, 3 Refills, Maintenance, 02/03/21 8:34:00 EST, Tablet, [facility], Partial fill upon patient request if the prescript... Start Date: 02/03/21 Status: Ordered acarbose 50 mg oral tablet 1 tablet = 50 mg, By Mouth, 3 times a day, Take 1 tab (plus 1 25mg tab), 3 times daily with meals.,# 270 tablet, 3 Refills, Maintenance, 02/03/21 8:34:00 EST, Tablet, [facility] [...] constipation, 08/23/21 8:22:00 EDT, Route to Pharmacy Electronically,[facility], Partial fill upon patient... Start Date: 08/23/21 Status: Ordered Dexilant 60 mg oral delayed release capsule 1 capsule = 60 mg, By Mouth, 2 times a day, 30 min before meal, # 60 capsule, 5 Refills, Maintenance, 04/16/21 14:29:00 EST, CR Capsule, [facility], Partial fill upon patient request if the prescription is for a schedule II opioi... Start Date: 04/16/21 Status: Ordered Emgality Prefilled Pen 120 mg/mL subcutaneous solution = 120 mg, Subcutaneous Injection, Once, Maintenance Dose, # 1 kit, 6 Refills, Soft Stop, 06/29/21 10:09:00 EDT, [facility] [...] 09/17/21 14:13:00 EDT, Route to Pharmacy Electronically, [facility], 158, cm, 09/16/21 9:43:00 EDT, Height, 71.5, kg, 09/01/21 16:21:00 EDT, D... Start Date: 09/17/21 Status: Ordered meclizine 25 mg oral tablet See Instructions, PRN for dizziness, Take 1 tablet every 8 hours as needed for dizziness, # 15 tablet, 0 Refills, Maintenance, 11/03/20 7:49:00 EDT, Tablet, [facility], Partial fill upon patient request if the prescription is for... Start Date: 11/03/20 Status: Ordered montelukast 10 mg oral tablet 10 mg, 1, tablet, By Mouth, Daily in PM, # 90 tablet, Refills 1, Tot. Refills 1, Maintenance, 04/23/21 12:32:00 EST, Route to Pharmacy Electronically, [facility], 158, cm, 04/09/21 8:13:00 [...] 6 Refills, Maintenance, 12/10/20 12:36:00 EDT,DIS Tablet, [facility], has t... Start Date: 12/10/20 Stop Date: 07/08/21 Status: Ordered Reclast = 5 mg, IV Infusion, Once, 0 Refills, Maintenance, 11/06/20 10:24:00 EDT, administered at [facility] 10/2020 Start Date: 11/06/20 Status: Ordered [...] 1resolved after weight loss 2chronic perst 3gyn 62965 5testing negative insulinoma 6likley dumping sydrome 7abnormal GTT ;sugar 36 two hours into test 8sees gi 9normal CT brain 10new 115.3 cm,right per ct scan recent;seeing gynecology soon;they will review 12vit d deficiency;correct 304114 14per endocrinology monitor 15correction refer GTT; 2 hour glucose 36 16refer GGT 17seeing ortho;pre op 18asma,ama neg/cerulopalsmain wnl,AAT wnl 19Negative hep A antibody positive hep B surface antibody negative antigen negative hep C, normal ferritin 20ukltrasound Social History Social History Type Response Smoking Status Never smoker entered on: 02/20/13 Sex
--- OUTSIDE RECORDS SUMMARY | 2022-08-17 08:25 | XMS_ITS | Continuity of Care Document ---
Author Name Unknown Organization [facility] Address [address] [place] [address]- Care Team Providers Care Pet Stylist Name Role Phone Eran Sue JOHNSON Primary Care Physician [phone] Encounter [facility] Date(s): 12/21/21 - 01/20/22 [facility] [address] [place] [address]- [place] Allergies, Adverse Reactions, Alerts Substance Reaction Severity Status Dust Allergy to pollen Active Pollen seasonal allergies respiratory symptoms Active Incruse Ellipta 1 lightheaded and migraine Active 1dizzy Immunizations Given and Recorded Vaccine Date Status Refusal Reason [id number] 12y+ bivalent booster vax 1 12/24/21 Given [...] vaccine, inactivated 02/08/11 Give n SARS-CoV-2 mRNA ([id number]-hlmms) vax 05/01/21 Recorded zoster vaccine, inactivated 11/03/20 [...] tetanus-diphtheria toxoids (Td) 08/03/05 Given 1Result Comment: [address]-8 2Result Comment: 48328-019-97 3Result Comment: [12/07/2017] [address]-95 4Result Comment: [12/21/2016] [facility]: [id number] 5Result Comment: [06/10/2015] #3 6Admin Note: per pt 7Admin Note: given in clinic Medications acarbose 25 mg oral tablet See Instructions, 1 tablet with 50 mg (total 75 mg) By Mouth before lunch, # 30 each, 11 Refills, Maintenance, 11/03/21 8:24:00 EDT, Tablet, [facility], 158, cm, 11/03/21 8:01:00EDT, Height, 71.5, kg, 09/01/21 16:21:00 EDT, Dry W... Start Date: 11/03/21 Status: Ordered acarbose 50 mg oral tablet See Instructions, 1 tablet with 25 mg (total 75 mg) By Mouth before lunch, # 30 each, 11 Refills, Maintenance, 11/03/21 8:23:00 EDT, Tablet, [facility], Partial fill upon patientrequest if [...] Gm, 1 Refills, Maintenance, 12/03/21 14:16:00 EDT, [facility], 18, INHALE TWO PUFFS EVERY [...] Refills, Maintenance, 11/22/21 9:49:00 EDT, CR Capsule, [facility], Partial fill upon patient request if the prescription is for a schedule II opioid... Start Date: 11/22/21 Status: Ordered Emgality Prefilled Pen 120 mg/mL subcutaneous solution = 120 mg, Subcutaneous Injection, Once, Maintenance Dose, # 1 kit, 6 Refills, Soft Stop, 12/30/21 12:19:00 EDT, [facility], Partial fill [...] 11/15/21 10:56:00 EDT, [facility], [facility] tablet, 0 Refills, Maintenance, 01/18/22 8:00:00 EST, [facility], Partial fill upon patient request if the prescription is for a schedule II opio... Start Date: 01/18/22 Status: Ordered Reclast = 5 mg, IV Infusion, Once, 0 Refills, Maintenance, 11/06/20 10:24:00 EDT, administered at [facility] 10/2020 Start Date: 11/06/20 Status: [...] 11/23/21 19:57:00 EDT, Route to Pharmacy Electronically, NCPDP_[id number], [facility], 158, cm, 11/03/21 8:0... Start [...] 5 Refills, Maintenance, 12/10/21 9:44:00 EDT, Tablet, [facility], [...] Active Vitamin D deficiency Confirmed Active 1gyn 36630 3testing negative insulinoma 4likley dumping sydrome 5abnormal GTT ;sugar 36 two hours into test 6sees gi 7normal CT brain 8new 9resolved after weight loss 10chronic perst 115.3 cm,right per ct scan recent;seeing gynecology soon;they will review 12vit d deficiency;correct [id number] 14per endocrinology monitor 15correction refer GTT; 2 hour glucose 36 16refer GGT 17seeing ortho;pre op 18asma,ama neg/cerulopalsmain wnl,AAT wnl 19Negative hep A antibody positive hep B surface antibody negative antigen negative hep C, normal ferritin 20ukltrasound Social History Social History Type Response Smoking Status Never smoker entered on: 02/20/13 Sex Patient Care team information Care Team Personnel Name: Caitlyn Mcgee RN Position: [facility] RN Member Role: Primary Care Nurse Name: Sue Barillas NP Position: [facility] PCO Associate Professional Member Role: PCP Address: Address: [address] [place] [address]- Name: Andria Guadalupe RN Position: [facility] RN Member Role: Primary Care Nurse Name: Liz Martin RN Position: [facility] RN Member Role: Primary Care Nurse Name: Abmreen Mcmahon RN Position: [facility] RN Member Role: Primary Care Nurse Name: Irais Grijalva RN Position: [facility] RN Member Role: Primary Care Nurse Name: Autumn Martinez RN Position: [facility] RN Member Role: Primary Care Nurse Name: Concha Mckinley RN Position: [facility] RN Member Role: Primary Care Nurse Name: Liz English RN Position: [facility] RN Member Role: Primary Care Nurse Name: Dora Williamson RN Position: [facility] RN Member Role: Primary Care Nurse Care Team Related Persons Name: KHUSHI CUNNINGHAM Address: [address] [place] [address] Name: BHUPINDER VENEGAS Address: [address] [place] [address] Name: FELIPE FLORES Address: home [address] [place] [address] Name: ARNAV FLORES Address: home [address] [place] [address] Name: IRINA FLORES Address: home [address] [place] [address] Name: RUSLAN FLORES Address: home [address] [place] [address] Name: KAISER PLUNKETT Address: home [address] [place] [address]
--- OUTSIDE RECORDS SUMMARY | 2022-08-17 08:25 | XMS_ITS | Continuity of Care Document ---
Author Name Unknown Organization [facility] Address [address] [place] [address]- Care Team Providers Care Sales Operations Director Name Role Phone Louisa LANDRUM, Taras Fuenets Primary Care Physician Encounter [facility] Date(s): 06/22/20 - 07/22/20 [facility] [address] [place] [address] Allergies, Adverse Reactions, Alerts Substance Reaction [...] toxoids (Td) 08/03/05 Given 1Result Comment: [12/07/2017] [address]-43 2Result Comment: [12/21/2016] [facility]: 53898-349-71 3Result Comment: [06/10/2015] #3 4Admin Note: per pt 5Admin Note: given in clinic Medications acarbose 25 mg oral tablet 1 tablet = 25 mg, By Mouth, 3 times a day, Take 1 tablet 3 times daily with meals. Add to 50mg dosefor total of 75mg 3 times daily. E11.65, # 270 tablet, 3 Refills, Maintenance, 07/15/20 12:23:00 EDT, Tablet, [facility], Partial... Start Date: 07/15/20 Status: Ordered acarbose 50 mg oral tablet 1 tablet = 50 mg, By Mouth, 3 times a day, Take 3 times daily with meals. E11.65, # 90 tablet, 5 Refills, Maintenance, 07/13/20 16:29:00 EDT, Tablet, [facility], Partial fill upon patient [...] 0 Refills, Maintenance, 07/03/19 13:59:00 EDT, Solution, [facility], 160, cm, 05/29/19 13:36:00 [...] 30 tablet, 5 Refills, Maintenance, 07/22/20 8:03:00EDT, [facility], Partial fill upon patient [...] 60 capsule, 5 Refills, Maintenance, 05/07/20 15:54:00EST, [facility], 160.02, cm, 05/01/20 9:18:00 [...] 1 Refills, Soft Stop, 11/20/19 11:59:00 EDT, [facility], 160.02, cm, 11/15/19 10:05:00 [...] 02/25/19 16:55:00 EST, Route to Pharmacy Electronically, [facility], 158, cm, 02/14/19 7:55:00 EST, Height, 61.9, kg, 02/12/19 10:17:00... Start Date: 02/25/19 Status: Ordered montelukast 10 mg oral tablet 10 mg, 1, tablet, By Mouth, Daily in PM, # 90 tablet, Refills 3, Tot. Refills 3, Maintenance, 08/15/19 16:21:00 EDT, Route to Pharmacy Electronically, [facility], 160, cm, 08/15/19 13:45:00 EDT, Height, 56.5, kg, 05/29/19 13:36:00... Start Date: 08/15/19 Status: Ordered ProAir HFA 90 mcg/inh inhalation aerosol with adapter 2, puffs, Inhalation, Every 4 hours, PRN, # 8.5 Gm, Refills 2, Tot. Refills 2, Maintenance, 04/29/19 11:32:00 EST, Aerosol, Route to Pharmacy Electronically, [id number]_[id number], [facility], 160, cm, 04/29/19 10:47:00 EST, Height... Start Date: 04/29/19 Status: Ordered rifAXIMin 550 mg oral tablet 1 tablet = 550 mg, By Mouth, 3 times a day, # 42 tablet, 0 Refills, Maintenance, 07/14/20 13:37:00 EDT, Tablet, [facility], Partial fill upon patient [...] 6 Refills, Maintenance, 03/12/20 11:09:00 EST, Tablet, [facility], weaning zonegran off by [...] 6 Refills, Soft Stop, 03/12/20 11:04:00 EST, [facility], Partial fill upon patient [...] 0 Refills, Maintenance, 06/13/20 14:10:00 EDT, Capsule, [facility],... Start Date: 06/13/20 Status: [...] 1resolved after weight loss 2chronic perst 3gyn [address] 5testing negative insulinoma 6likley dumping sydrome 7abnormal GTT ;sugar 36 two hours into test 8sees gi 9normal CT brain 10new 115.3 cm,right per ct scan recent;seeing gynecology soon;they will review 12vit d deficiency;correct 316445 14per endocrinology monitor 15correction refer GTT; 2 hour glucose 36 16refer GGT 17seeing ortho;pre op 18asma,ama neg/cerulopalsmain wnl,AAT wnl 19Negative hep A antibody positive hep B surface antibody negative antigen negative hep C, normal ferritin 20ukltrasound Social History Social History Type Response Smoking Status Never smoker entered on: 02/20/13 Sex
--- OUTSIDE RECORDS SUMMARY | 2022-08-17 08:25 | XMS_ITS | Continuity of Care Document ---
Author Name Unknown Organization [facility] [place] Address [address] [place] [address]- Care Team Providers Care Reel Repairer Name Role Phone Louisa LANDRUM, Taras Fuentes Primary Care Physician [phone] Encounter [facility] Date(s): 10/01/20 - 10/31/20 [facility] [place] [address] [place], [place] [address] Attending Physician: Konrad Curtis Admitting Physician: AdmKonrad [...] toxoids (Td) 08/03/05 Given 1Result Comment: [12/07/2017] [address]-46 2Result Comment: [12/21/2016] [facility]: [id number] 3Result Comment: [06/10/2015] #3 4Admin Note: per [...] 07/06/20 6:4... Start Date: 07/22/20 Status: Ordered amoxicillin-clavulanate 875 mg-125 mg oral tablet 1 tablet, By Mouth, Every 12 hours, for 7 days, with food or milk, # 14 tablet, 0 Refills, Acute 11/06/20 11:34:00 EDT, 10/30/20 11:34:00 EDT, Tablet, [facility], Partial fill upon patient request if the prescription is for a sche... Start Date: 10/30/20 Stop Date: 11/06/20 Status: Ordered Baqsimi One Pack 3 mg nasal powder See Instructions, 3 mg Once intrasnasally for severe hypoglycemia, # 2 each, 3 Refills, Soft Stop, 08/28/20 10:36:00 EDT, [facility], [...] 05/29/19 13:36:00... Start Date: 08/15/19 Status: Ordered Dimmit 0.65% nasal spray 2 sprays, Nares, Both, 4 times a day, # 1 each, 0 Refills, Maintenance, 10/30/20 11:34:00 EDT, [facility], [...] 0 Refills, Maintenance, 08/27/20 9:45:00 EDT, Capsule, [facility], [...] 11:32:00 EST, Aerosol, Route to Pharmacy Electronically, NCPDP_[id number], [facility] - [...] 6 Refills, Maintenance, 08/04/20 11:44:00 EDT, Tablet, [facility], 158.02, cm, 07/06/20 6:49:00 EDT, Height, [...] 6 Refills, Soft Stop, 08/04/20 11:37:00 EDT, [facility], [...] 1resolved after weight loss 2chronic perst 3gyn 47[address] 5testing negative insulinoma 6likley dumping sydrome 7abnormal GTT ;sugar 36 two hours into test 8sees gi 9normal CT brain 10new 115.3 cm,right per ct scan recent;seeing gynecology soon;they will review 12vit d deficiency;correct 510598 14per endocrinology monitor 15correction refer GTT; 2 hour glucose 36 16refer GGT 17seeing ortho;pre op 18asma,ama neg/cerulopalsmain wnl,AAT wnl 19Negative hep A antibody positive hep B surface antibody negative antigen negative hep C, normal ferritin 20ukltrasound Social History Social History Type Response Smoking Status Never smoker entered on: 02/20/13 Sex
--- OUTSIDE RECORDS SUMMARY | 2022-08-17 08:25 | XMS_ITS | Continuity of Care Document ---
Author Name Unknown Organization [facility] Address [address] [place] [address] sandi, [address] [place] [address]- Care Team Providers Care System Archive Analyst Name Role Phone Eran MACHINE CANDLE MOLDER, Sue Dahl Primary Care Physician Encounter [facility] Date(s): 01/31/22 - 02/07/22 [facility] [address] [place] [address] Drive, [address] [place], [place] [address] Attending Physician: Zachery Lo MD Allergies, Adverse Reactions, Alerts Substance Reaction Severity Status Dust Allergy to pollen Active Pollen seasonal allergies respiratory symptoms Active Incruse Ellipta 1 lightheaded and migraine Active 1dizzy Immunizations Given and Recorded Vaccine Date Status Refusal Reason [id number] 12y+ bivalent booster vax 1 12/24/21 Given [...] vaccine, inactivated 02/08/11 Give n SARS-CoV-2 mRNA (xpmavsu-onzk-vjczg) vax 05/01/21 Recorded zoster vaccine, inactivated 11/03/20 [...] tetanus-diphtheria toxoids (Td) 08/03/05 Given 1Result Comment: [address]-4 2Result Comment: 30015-351-86 3Result Comment: [12/07/2017] [address]-95 4Result Comment: [12/21/2016] [facility]: 08156-804-41 5Result Comment: [06/10/2015] #3 6Admin Note: per pt 7Admin Note: given in clinic Medications acarbose 25 mg oral tablet See Instructions, 1 tablet with 50 mg (total 75 mg) By Mouth before lunch, # 30 each, 11 Refills, Maintenance, 11/03/21 8:24:00 EDT, Tablet, [facility], 158, cm, 11/03/21 8:01:00EDT, Height, 71.5, kg, 09/01/21 16:21:00 EDT, Dry W... Start Date: 11/03/21 Status: Ordered acarbose 50 mg oral tablet See Instructions, 1 tablet with 25 mg (total 75 mg) By Mouth before lunch, # 30 each, 11 Refills, Maintenance, 11/03/21 8:23:00 EDT, Tablet, [facility], Partial fill upon patientrequest [...] Gm, 1 Refills, Maintenance, 12/03/21 14:16:00 EDT, [facility], 18, INHALE TWO PUFFS [...] Refills, Maintenance, 11/22/21 9:49:00 EDT, CR Capsule, [facility], Partial fill upon patient request if the prescription is for a schedule II opioid... Start Date: 11/22/21 Status: Ordered Emgality Prefilled Pen 120 mg/mL subcutaneous solution = 120 mg, Subcutaneous Injection, Once, Maintenance Dose, # 1 kit, 6 Refills, Soft Stop, 12/30/21 12:19:00 EDT, [facility], Partial fill upon [...] 11/15/21 10:56:00 EDT, [facility] to [facility] Electronically[facility] tablet, 0 Refills, Maintenance, 01/18/22 8:00:00 EST, [facility], Partial fill upon patient request if the prescription is for a schedule II opio... Start Date: 01/18/22 Status: Ordered Reclast = 5 mg, IV Infusion, Once, 0 Refills, Maintenance, 11/06/20 10:24:00 EDT, administered at [facility] 10/2020 Start Date: 11/06/20 Status: Ordered [...] 11/23/21 19:57:00 EDT, Route to Pharmacy Electronically, NCPDP_[id number], [facility], 158, cm, 11/03/21 8:0... [...] 5 Refills, Maintenance, 12/10/21 9:44:00 EDT, Tablet, [facility], Partial [...] Active Vitamin D deficiency Confirmed Active 1gyn 89656 3testing negative insulinoma 4likley dumping sydrome 5abnormal GTT ;sugar 36 two hours into test 6sees gi 7normal CT brain 8new 9resolved after weight loss 10chronic perst 115.3 cm,right per ct scan recent;seeing gynecology soon;they will review 12vit d deficiency;correct 752458 14per endocrinology monitor 15correction refer GTT; 2 hour glucose 36 16refer GGT 17seeing ortho;pre op 18asma,ama neg/cerulopalsmain wnl,AAT wnl 19Negative hep A antibody positive hep B surface antibody negative antigen negative hep C, normal ferritin 20ukltrasound Vital Signs Most recent to oldest [Reference Range]: 1 Height 163 cm (01/31/22 3:21 PM) Weight 68 kg (01/31/22 3:21 PM) Body Mass Index [18.5-24.99 kg/m2] 25.59 kg/m2 *H* (01/31/22 3:21 PM) Social History Social History Type Response Smoking Status Never smoker entered on: 02/20/13 Sex Patient Care team information Care Team Personnel Name: Caitlyn Mcgee RN Position: S RN Member Role: Primary Care Nurse Name: Sue Barillas NP Position: [facility] PCO Associate Professional Member Role: PCP Address: Address: [address] [place] [address] Name: Andria Guadalupe RN Position: [facility] SN RN Member Role: Primary Care Nurse Name: Liz Martin RN Position: [facility] RN Member Role: Primary Care Nurse Name: Ambreen Mcmahon RN Position: [facility] RN Member Role: Primary Care Nurse Name: Irais Grijalva RN Position: [facility] RN Member Role: Primary Care Nurse Name: Autumn Martinez RN Position: [facility] SN RN Member Role: Primary Care Nurse Name: Concha Mckinley RN Position: [facility] RN Member Role: Primary Care Nurse Name: Liz English RN Position: [facility] RN Member Role: Primary Care Nurse Name: Dora Williamson RN Position: [facility] RN Member Role: Primary Care Nurse Care Team Related Persons Name: KHUSHI CUNNINGHAM Address: home [address] [place] [address] Name: BHUPINDER VENEGAS Address: home [address] [place] [address] Name: FELIPE FLORES Address: home [address] [place] [address] Name: ARNAV FLORES Address: home [address] [place], [place] Name: IRINA FLORES Address: home [address] [place], [place] Name: RUSLAN FLORES Address: home [address] [place] [address] Name: KAISER PLUNKETT Address: home [address] [place] [address]
--- OUTSIDE RECORDS SUMMARY | 2022-08-17 08:25 | XMS_ITS | Continuity of Care Document ---
Author Name Unknown Organization [facility] Address [address] [place] [address]- Care Team Providers Care Environmental Health And Safety Leader Name Role Phone Eran STATION BAGGAGE AGENT, Sue Dahl Primary Care Physician Encounter [facility] Date(s): 05/24/21 - 06/23/21 [facility] [address] [place] [address]- Allergies, Adverse Reactions, Alerts Substance Reaction Severity Status Dust Allergy to pollen Active Pollen seasonal allergies respiratory symptoms Active Incruse Ellipta 1 lightheaded and migraine Active 1dizzy Immunizations Given and Recorded Vaccine Date Status Refusal Reason SARS-CoV-2 mRNA (etgwaft-zkkl-cxuna) vax 05/01/21 Recorded influenza virus vaccine, inactivated [...] toxoids (Td) 08/03/05 Given 1Result Comment: [12/07/2017] [address]-55 2Result Comment: [12/21/2016] [facility][NOTE 3]: 25675-908-92 3Result Comment: [06/10/2015] #3 4Admin Note: per [...] 05/24/21 11:12:00 EDT, Route to Pharmacy Electronically, [facility] [...] Date: 12/10/20 Stop Date: 07/08/21 Status: Ordered Fajardo 0.65% nasal spray 2 sprays, Nares, Both, [...] 19:25:00 EST, Aerosol, Route to Pharmacy Electronically, NCPDP_[id number], [facility], 158, cm, 05/06/21 6:58:00 EST, Height, 80.... Start Date: 05/13/21 Status: Ordered Reclast = 5 mg, IV Infusion, Once, 0 Refills, Maintenance, 11/06/20 10:24:00 EDT, administered at [facility] 10/2020 Start Date: 11/06/20 Status: Ordered [...] Gm, Refills 11, Route to Pharmacy Electronically, NCPDP_[id number], [facility], 158.02, [...] 1resolved after weight loss 2chronic perst 3gyn 16020 5testing negative insulinoma 6likley dumping sydrome 7abnormal GTT ;sugar 36 two hours into test 8sees gi 9normal CT brain 10new 115.3 cm,right per ct scan recent;seeing gynecology soon;they will review 12vit d deficiency;correct 517219 14per endocrinology monitor 15correction refer GTT; 2 hour glucose 36 16refer GGT 17seeing ortho;pre op 18asma,ama neg/cerulopalsmain wnl,AAT wnl 19Negative hep A antibody positive hep B surface antibody negative antigen negative hep C, normal ferritin 20ukltrasound Social History Social History Type Response Smoking Status Never smoker entered on: 02/20/13 Sex
--- OUTSIDE RECORDS SUMMARY | 2022-08-17 08:25 | XMS_ITS | Continuity of Care Document ---
Author Name Unknown Organization [facility] Address [address] [place] [address]- Care Team Providers Care Nurse Sexual Assault Name Role Phone Taras Jasso MD Primary Care Physician [place] [facility] [place]s): 06/11/19 - 07/11/19 [facility] [address] [place] [address]- [facility] Attending Physician: Taras Jasso MD Allergies, Adverse [...] toxoids (Td) 08/03/05 Given 1Result Comment: [12/07/2017] [id number] 2Result Comment: [12/21/2016] [facility]: [id number] 3Result Comment: [06/10/2015] #3 4Admin Note: per [...] Maintenance, 07/03/19 13:59:00 EDT, Solution, [facility], 160, cm, 05/29/19 13:36:00 EDT, Height, 56.5, kg, 03... Start Date: 07/03/19 Status: Ordered albuterol CFC free 90 mcg/inh inhalation aerosol 2, puffs, Inhalation, 4 times a day, PRN, # 25 Gm, Refills 0, Tot. Refills 0, Maintenance, 07/07/2012:36:00 EDT, Aerosol, Route to Pharmacy Electronically, NCPDP_[id number], [facility], 160, cm, 07/08/19 13:03:00 EDT, [...] Pharmacy Electronically, [facility], 160, cm, 05/16/19 10:27:00 EDT, Height, 62.9, kg, 05/12/19 9:1... Start Date: 05/17/19 Status: Ordered Freestyle Lite Lancets See Instructions, # 90 each, Refills 11, Tot. Refills 11, Maintenance, Use lancets to check blood glucose up to 3x a day. E11.9, 07/11/19 13:03:00 EDT, Supply, 160, cm, 07/08/19 13:03:00 EDT, Height,56.5, kg, 05/29/19 13:36:00 EDT, Dry Weight Start Date: 07/11/19 Status: Ordered Freestyle Lite Monitor See Instructions, [...] to Pharmacy Electronically, [facility], 158, cm, 02/14/19 7:55:00 EST, Height, 61.9, kg, 02/12/19 10:17:00... Start Date: 02/25/19 Status: Ordered montelukast 10 mg oral tablet 10 mg, 1, tablet, By Mouth, Daily in PM, # 30 tablet, Refills 0, Tot. Refills 0, Maintenance, 07/08/19 13:36:00 EDT, Route to Pharmacy Electronically, [facility], 160, cm, 07/08/19 13:03:00 EDT, Height, 56.5, kg, 05/29/19 13:36:00... Start Date: 07/08/19 Status: Ordered ProAir HFA 90 mcg/inh inhalation aerosol with adapter 2, puffs, Inhalation, Every 4 hours, PRN, # 8.5 Gm, Refills 2, Tot. Refills 2, Maintenance, 04/29/19 11:32:00 EST, Aerosol, Route to Pharmacy Electronically, NCPDP_[id number], [facility], 160, cm, 04/29/19 10:47:00 EST, Height... Start Date: 04/29/19 Status: Ordered rizatriptan 10 mg oral tablet 1 tablet = 10 mg, By Mouth, Daily, PRN for migraine headache, # 9 tablet, 5 Refills, Soft Stop, 06/04/19 15:37:00 EDT, Tablet, [facility], sumatriptan ineffective. If insurance says [...] 07/08/19 13:36:00 EDT, Route to Pharmacy Electronically, NCPDP_[id number], [facility], 160, cm, 07/08/19 13:03:00 ED... [...] 5 Refills, Maintenance, 05/30/19 11:48:00 EDT, Capsule, [facility], 160, cm, 05/29/19 13:36:00 EDT, [...] perst 3folowed by mental health;recent hospitalization 4gyn 13004 6testing negative insulinoma 7likley dumping sydrome 8abnormal GTT ;sugar 36 two hours into test 9sees gi 10normal CT brain 11new 125.3 cm,right per ct scan recent;seeing gynecology soon;they will review 13vit d deficiency;correct 474043 15per endocrinology monitor 16correction refer GTT; 2 hour glucose 36 17refer GGT 18seeing ortho;pre op 19asma,ama neg/cerulopalsmain wnl,AAT wnl 20Negative hep A antibody positive hep B surface antibody negative antigen negative hep C, normal ferritin 21ukltrasound Social History Social History Type Response Smoking Status Never smoker entered on: 02/20/13 Sex
--- OUTSIDE RECORDS SUMMARY | 2022-08-17 08:25 | XMS_ITS | Continuity of Care Document ---
Author Name Unknown Organization [facility] Address [address] [place] [address]- Care Team Providers Care Stock Replenisher Name Role Phone Eran Sue JOHNSON Primary Care Physician Encounter [facility] Date(s): 06/15/21 - 07/15/[address] [address] Attending Physician: Konrad Curtis Admitting Physician: AdmtrKonrad Referring Physician: Admtr, Ar8 Allergies, Adverse Reactions, Alerts Substance Reaction Severity Status Dust Allergy to pollen Active Pollen seasonal allergies respiratory symptoms Active Incruse Ellipta 1 lightheaded and migraine Active 1dizzy Immunizations Given and Recorded Vaccine Date Status Refusal Reason SARS-CoV-2 mRNA (lorrzyk-kzjl-knxuf) vax 05/01/21 Recorded influenza virus vaccine, inactivated [...] toxoids (Td) 08/03/05 Given 1Result Comment: [12/07/2017] [id number] 2Result Comment: [12/21/2016] [facility]: 90785-722-54 3Result Comment: [06/10/2015] #3 4Admin Note: per [...] 30 mL, 1 Refills, 06/28/21 13:52:00 EDT, [facility], 158, cm, 05/24/21 16:05:00 EDT, Height, [...] 6 Refills, Soft Stop, 06/29/21 10:09:00 EDT, [facility], Partial fill upon patient request if the prescription is for a schedule II opioid drug., 158, cm, 06/29/21... Start Date: 06/29/21 Status: Ordered Emgality Prefilled Pen 120 mg/mL [...] Dry Weight Start Date: 08/28/20 Status: Ordered gabapentin 300 mg oral capsule 300 mg, 1, capsule, By Mouth, Daily at bedtime, Refills 0, Maintenance, 07/13/21 12:26:00 EDT Start Date: 07/13/21 Status: Ordered Glucagon Emergency Kit for Low [...] Date: 12/10/20 Stop Date: 07/08/21 Status: Ordered Hidalgo 0.65% nasal spray 2 sprays, Nares, Both, [...] 19:25:00 EST, Aerosol, Route to Pharmacy Electronically, NCPDP_[id number], [facility], 158, [...] Gm, Refills 11, Route to Pharmacy Electronically, NCPDP_[id number], [facility], 158.02, cm, 11/13/20 8:38:00 EDT, Height, 67, kg, 09/11/19 11:20:00 EDT, Dry Weight Start Date: 11/20/20 Status: Ordered Problem List Condition Effective Dates [...] 1resolved after weight loss 2chronic perst 3gyn 51829 5testing negative insulinoma 6likley dumping sydrome 7abnormal GTT ;sugar 36 two hours into test 8sees gi 9normal CT brain 10new 115.3 cm,right per ct scan recent;seeing gynecology soon;they will review 12vit d deficiency;correct 710607 14per endocrinology monitor 15correction refer GTT; 2 hour glucose 36 16refer GGT 17seeing ortho;pre op 18asma,ama neg/cerulopalsmain wnl,AAT wnl 19Negative hep A antibody positive hep B surface antibody negative antigen negative hep C, normal ferritin 20ukltrasound Social History Social History Type Response Smoking Status Never smoker entered on: 02/20/13 Sex
--- OUTSIDE RECORDS SUMMARY | 2022-08-17 08:26 | XMS_ITS | Continuity of Care Document ---
Author Name Unknown Organization [facility] Address [address] [place] [address]- Care Team Providers Care Bundle Shaker Name Role Phone Eran PRINTED CIRCUIT DESIGNER, Sue Dahl Primary Care Physician Encounter [facility] Date(s): 03/11/20 - 04/10/20 [facility] [address] [place] [address]- Allergies, Adverse Reactions, Alerts Substance Reaction Severity [...] toxoids (Td) 08/03/05 Given 1Result Comment: [12/07/2017] [id number] 2Result Comment: [12/21/2016] [facility]: [id number] 3Result Comment: [06/10/2015] #3 4Admin Note: per [...] 03/18/20 10:49:00 EST, Route to Pharmacy Electronically, [facility], 160.02, cm, 03/18/20 7:48:00 EST, Height, [...] 60 capsule, 5 Refills, Maintenance, 12/26/19 12:06:00EDT, [facility], 160.02, cm, 12/02/19 6:45:00 [...] 11:32:00 EST, Aerosol, Route to Pharmacy Electronically, NCPDP_[id number], [facility], 160, cm, 04/29/19 10:47:00 EST, Height... Start Date: 04/29/19 Status: Ordered Symbicort 160mcg/4.5mcg Inhaler 2, puffs, Inhalation, 2 times a day, use with spacer chamber, # 1 each, Refills 11, Tot. Refills 11, Maintenance, 07/08/19 13:36:00 EDT, Route to Pharmacy Electronically, NCPDP_[id number], [facility], 160, cm, 07/08/19 [...] perst 3folowed by mental health;recent hospitalization 4gyn 25719 6testing negative insulinoma 7likley dumping sydrome 8abnormal GTT ;sugar 36 two hours into test 9sees gi 10normal CT brain 11new 125.3 cm,right per ct scan recent;seeing gynecology soon;they will review 13vit d deficiency;correct 748137 15per endocrinology monitor 16correction refer GTT; 2 hour glucose 36 17refer GGT 18seeing ortho;pre op 19asma,ama neg/cerulopalsmain wnl,AAT wnl 20Negative hep A antibody positive hep B surface antibody negative antigen negative hep C, normal ferritin 21ukltrasound Social History Social History Type Response Smoking Status Never smoker entered on: 02/20/13 Sex
--- OUTSIDE RECORDS SUMMARY | 2022-08-17 08:26 | XMS_ITS | Continuity of Care Document ---
Author Name Unknown Organization [facility] Address [address] [facility], [address] d Floor, [address] [place] [address]- Care Team Providers Care Head Of Music Name Role Phone Eran J2EE PROGRAMMER, Sue Dahl Primary Care Physician [phone] Encounter [facility] Date(s): 03/12/20 - 03/19/20 [facility] [address] [place], [address], [address] [place] [id number]- Attending Physician: Shell Vargas MD Referring Physician: Louisa LANDRUM, Taras Fuentes Allergies, Adverse Reactions, Alerts Substance Reaction Severity [...] toxoids (Td) 08/03/05 Given 1Result Comment: [12/07/2017] [address]-57 2Result Comment: [12/21/2016] [facility]: [id number] 3Result Comment: [06/10/2015] #3 4Admin Note: per [...] Maintenance, 07/03/19 13:59:00 EDT, Solution, [facility], 160, cm, 05/29/19 13:36:00 EDT, Height, 56.5, kg, 03... Start Date: 07/03/19 Status: Ordered amitriptyline 25 mg oral tablet 25 mg, 1, tablet, By Mouth, Daily at bedtime, # 30 tablet, Refills 5, Tot. Refills 5, Maintenance, 03/18/20 10:49:00 EST, Route to Pharmacy Electronically, [facility], 160.02, cm, 03/18/20 7:48:00 EST, Height, [...] 60 capsule, 5 Refills, Maintenance, 12/26/19 12:06:00EDT, [facility], 160.02, cm, 12/02/19 6:45:00 EDT, Height, [...] Soft Stop, 11/20/19 11:59:00 EDT, [facility], 160.02, cm, 11/15/19 10:05:00 EDT, Height, [...] EST, Route to Pharmacy Electronically, [facility], 158, cm, 02/14/19 7:55:00 EST, Height, 61.9, kg, 02/12/19 10:17:00... Start Date: 02/25/19 Status: Ordered montelukast 10 mg oral tablet 10 mg, 1, tablet, By Mouth, Daily in PM, # 90 tablet, Refills 3, Tot. Refills 3, Maintenance, 08/15/19 16:21:00 EDT, Route to Pharmacy Electronically, [facility], 160, cm, 08/15/19 13:45:00 EDT, Height, 56.5, kg, 05/29/19 13:36:00... Start Date: 08/15/19 Status: Ordered ondansetron 4 mg oral tablet, disintegrating 1 tablet = 4 mg, By Mouth, Every 8 hours, PRN as needed for nausea/vomiting, # 9 tablet, 0 Refills,Maintenance, 10/06/19 21:07:00 EDT, DIS Tablet, [facility] Start Date: 10/06/19 Stop Date: 10/09/19 Status: Ordered ProAir HFA 90 mcg/inh inhalation aerosol with adapter 2, puffs, Inhalation, Every 4 hours, PRN, # 8.5 Gm, Refills 2, Tot. Refills 2, Maintenance, 04/29/19 11:32:00 EST, Aerosol, Route to Pharmacy Electronically, [id number]_[id number], [facility], 160, cm, 04/29/19 10:47:00 EST, Height... Start Date: 04/29/19 Status: Ordered Symbicort 160mcg/4.5mcg Inhaler 2, puffs, Inhalation, 2 times a day, use with spacer chamber, # 1 each, Refills 11, Tot. Refills 11, Maintenance, 07/08/19 13:36:00 EDT, Route to Pharmacy Electronically, NCPDP_[id number], [facility], 160, cm, 07/08/19 13:03:00 ED... Start Date: 07/08/19 Status: Ordered Topamax 50 mg oral tablet See Instructions, take 1 tab in am and 2 tab at bedtime. If AM dose causes bad sedation, add to HS dose., # 90 tablet, 6 Refills, Maintenance, 03/12/20 11:09:00 EST, Tablet, [facility], weaning zonegran off by 25mg every [...] Soft Stop, 03/12/20 11:04:00 EST, [facility], Partial fill upon patient request if the prescription is for a schedule II opioid drug., 160.02, cm, 03/10/20 8:18:00 EST, H... Start Date: 03/12/20 Stop Date: 10/08/20 Status: Ordered Zofran 4 mg oral tablet 1 tablet = 4 mg, By Mouth, Every 8 hours, PRN Nausea & Vomiting, # 30 tablet, 0 Refills, Maintenance, 09/30/19 11:23:00 EDT, [facility], 160.02, cm, 09/24/19 15:31:00 EDT, Height, [...] perst 3folowed by mental health;recent hospitalization 4gyn 98800 6testing negative insulinoma 7likley dumping sydrome 8abnormal GTT ;sugar 36 two hours into test 9sees gi 10normal CT brain 11new 125.3 cm,right per ct scan recent;seeing gynecology soon;they will review 13vit d deficiency;correct [id number] 15per endocrinology monitor 16correction refer GTT; 2 hour glucose 36 17refer GGT 18seeing ortho;pre op 19asma,ama neg/cerulopalsmain wnl,AAT wnl 20Negative hep A antibody positive hep B surface antibody negative antigen negative hep C, normal ferritin 21ukltrasound Social History Social History Type Response Smoking Status Never smoker entered on: 02/20/13 Sex
--- OUTSIDE RECORDS SUMMARY | 2022-08-17 08:26 | XMS_ITS | Continuity of Care Document ---
Author Name Unknown Organization [facility] Address [address] [place] [address]- Care Team Providers Care Telephone Sales Agent Name Role Phone Louisa LANDRUM, Taras Fuentes Primary Care Physician [phone] Encounter [facility] Date(s): 06/13/20 - 07/13/20 [facility] [address] [place] [id number] Allergies, Adverse Reactions, Alerts Substance Reaction Severity [...] toxoids (Td) 08/03/05 Given 1Result Comment: [12/07/2017] [id number] 2Result Comment: [12/21/2016] [facility]: [id number] 3Result Comment: [06/10/2015] #3 4Admin Note: per pt 5Admin Note: given in clinic Medications acarbose 50 mg oral tablet 1 tablet = 50 mg, By Mouth, 3 times a day, Take 3 times daily with meals. E11.65, # 90 tablet, 5 Refills, Maintenance, 07/13/20 16:29:00 EDT, Tablet, [facility], Partial fill upon patient [...] 0 Refills, Maintenance, 07/03/19 13:59:00 EDT, Solution, [facility], 160, cm, [...] 60 capsule, 5 Refills, Maintenance, 05/07/20 15:54:00EST, [facility], 160.02, cm, 05/01/20 9:18:00 [...] 1 Refills, Soft Stop, 11/20/19 11:59:00 EDT, [facility], 160.02, cm, 11/15/19 10:05:00 [...] 08/15/19 16:21:00 EDT, Route to Pharmacy Electronically, [facility], 160, cm, 08/15/19 13:45:00 EDT, Height, 56.5, kg, 05/29/19 13:36:00... Start Date: 08/15/19 Status: Ordered ProAir HFA 90 mcg/inh inhalation aerosol with adapter 2, puffs, Inhalation, Every 4 hours, PRN, # 8.5 Gm, Refills 2, Tot. Refills 2, Maintenance, 04/29/19 11:32:00 EST, Aerosol, Route to Pharmacy Electronically, NCPDP_[id number], [facility], 160, cm, 04/29/19 10:47:00 EST, Height... Start Date: 04/29/19 Status: Ordered Topamax 50 mg oral tablet See Instructions, take 1 tab in am and 2 tab at bedtime. If AM dose causes bad sedation, add to HS dose., # 90 tablet, 6 Refills, Maintenance, 03/12/20 11:09:00 EST, Tablet, [facility], weaning zonegran off by [...] 6 Refills, Soft Stop, 03/12/20 11:04:00 EST, [facility], Partial fill upon patient [...] 0 Refills, Maintenance, 06/13/20 14:10:00 EDT, Capsule, [facility],... Start Date: 06/13/20 Status: Ordered [...] 06/18/15 Active H/O laparoscopic adjustable gastric banding 2007/feb1(Confirmed) 4 Active History of cholecystectomy(Confirmed) 04/10/17 Active [...] 1resolved after weight loss 2chronic perst 3gyn 86596 5testing negative insulinoma 6likley dumping sydrome 7abnormal GTT ;sugar 36 two hours into test 8sees gi 9normal CT brain 10new 115.3 cm,right per ct scan recent;seeing gynecology soon;they will review 12vit d deficiency;correct 532953 14per endocrinology monitor 15correction refer GTT; 2 hour glucose 36 16refer GGT 17seeing ortho;pre op 18asma,ama neg/cerulopalsmain wnl,AAT wnl 19Negative hep A antibody positive hep B surface antibody negative antigen negative hep C, normal ferritin 20ukltrasound Social History Social History Type Response Smoking Status Never smoker entered on: 02/20/13 Sex
--- OUTSIDE RECORDS SUMMARY | 2022-08-17 08:26 | XMS_ITS | Continuity of Care Document ---
Author Name Unknown Organization [facility] Address [address] [place] [address]- Care Team Providers Care Lamp Tester And Inspector Name Role Phone Eran MACHINE SET UP OPERATOR, Sue Dahl Primary Care Physician [phone] Encounter [facility] Date(s): 05/08/21 - 06/07/21 [facility] [address] [place] [address]- Allergies, Adverse Reactions, Alerts Substance Reaction Severity Status Dust Allergy to pollen Active Pollen seasonal allergies respiratory symptoms Active Incruse Ellipta 1 lightheaded and migraine Active 1dizzy Immunizations Given and Recorded Vaccine Date Status Refusal Reason SARS-CoV-2 mRNA ([id number]) vax 05/01/21 Recorded influenza virus vaccine, inactivated [...] toxoids (Td) 08/03/05 Given 1Result Comment: [12/07/2017] [address]-53 2Result Comment: [12/21/2016] [facility]: [id number] 3Result Comment: [06/10/2015] #3 4Admin Note: per [...] 3 Refills, Maintenance, 02/03/21 8:34:00 EST, Tablet, [facility], Partial fill upon patient request if the prescript... Start Date: 02/03/21 Status: Ordered acarbose 50 mg oral tablet 1 tablet = 50 mg, By Mouth, 3 times a day, Take 1 tab (plus 1 25mg tab), 3 times daily with meals.,# 270 tablet, 3 Refills, Maintenance, 02/03/21 8:34:00 EST, Tablet, [facility], Partial fill upon patient request if the prescript... Start Date: 02/03/21 Status: Ordered Baqsimi One Pack 3 mg nasal powder See Instructions, 3 mg Once intrasnasally for severe hypoglycemia, # 2 each, 3 Refills, Soft Stop, 08/28/20 10:36:00 EDT, [facility], Partial fill upon patient request [...] Refills, Maintenance, 03/03/21 16:42:00 EST, REC Powder, [facility], Partial fill upon patient request [...] per PCP, # 30 mL, 1 Refills, [facility], 158, cm, 04/09/21 8:13:00 EST, Height, 80.6, kg, 03/08/21 12:18:00 EST, Dry Weight Start Date: 04/30/21 Status: Ordered Dexilant 60 mg oral delayed release capsule 1 capsule = 60 mg, By Mouth, 2 times a day, 30 min before meal, # 60 capsule, 5 Refills, Maintenance, 04/16/21 14:29:00 EST, CR Capsule, [facility], Partial fill upon patient request if the prescription is for a schedule II opioi... Start Date: 04/16/21 Status: Ordered Emgality Prefilled Pen 120 mg/mL subcutaneous solution = 240 mg, Subcutaneous Injection, Once, Loading Dose, # 2 kit, 0 Refills, Soft Stop, 03/16/21 16:05:00 EST, [facility], Partial fill upon patient request if the prescription is for a schedule II opioid drug., 158, cm, 03/11/21 9:1... Start Date: 03/16/21 Status: Ordered EPINEPHrine 1 mg/mL injectable solution 0.3 mL = 0.3 mg, Intramuscular, Once, # 1 mL, 1 Refills, Soft Stop, 03/08/21 15:07:00 EST, Solution, [facility], Partial fill upon patient request [...] 1 Refills, Soft Stop, 11/20/19 11:59:00 EDT, [facility], 160.02, cm, 11/15/19 10:05:00 EDT, Height, 67, kg, 09/11/19 11:20:00 EDT, Dry Weight Start Date: 11/20/19 Status: Ordered Lidocaine Viscous 2% solution 5 mL = 0.1 Gm, By Mouth, 4 times a day, PRN for epigastric pain, # 200 mL, 1 Refills, Maintenance, 04/06/21 9:45:00 EST, Solution, [facility], Partial fill upon patient request if the prescription is for a schedule II opioid drug.... Start Date: 04/06/21 Status: Ordered loratadine 10 mg oral tablet 10 mg, 1, tablet, By Mouth, Daily, # 90 tablet, Refills 0, Tot. Refills 0, Maintenance, 05/24/21 11:12:00 EDT, Route to Pharmacy Electronically, [facility], 158, cm, 05/14/21 7:52:00 EST, Height, 80.6, kg, 03/08/21 12:18:00 EST, D... Start Date: 05/24/21 Status: Ordered meclizine 25 mg oral tablet See Instructions, PRN for dizziness, Take 1 tablet every 8 hours as needed for dizziness, # 15 tablet, 0 Refills, Maintenance, 11/03/20 7:49:00 EDT, Tablet, [facility], Partial fill upon patient request if the prescription is for... Start Date: 11/03/20 Status: Ordered montelukast 10 mg oral tablet 10 mg, 1, tablet, By Mouth, Daily in PM, # 90 tablet, Refills 1, Tot. Refills 1, Maintenance, 04/23/21 12:32:00 EST, Route to Pharmacy Electronically, [facility], 158, cm, 04/09/21 8:13:00 EST, [...] 6 Refills, Maintenance, 12/10/20 12:36:00 EDT,DIS Tablet, [facility], has t... Start Date: 12/10/20 Stop Date: 07/08/21 Status: Ordered [place] 0.65% nasal spray 2 sprays, Nares, Both, 4 times a day, # 1 each, 3 Refills, Maintenance, 05/14/21 11:40:00 EST, [facility], Partial fill upon patient request if the prescription is for a scheduleII opioid drug., 2 sprays Nares, Both 4 times a day... Start Date: 05/14/21 Status: Ordered ProAir HFA 90 mcg/inh inhalation aerosol with adapter 2, puffs, Inhalation, Every 4 hours, PRN, # 8.5 Gm, Refills 1, Tot. Refills 1, Maintenance, 05/13/21 19:25:00 EST, Aerosol, Route to Pharmacy Electronically, NCPDP_[id number], [facility], 158, cm, 05/06/21 6:58:00 EST, [...] Gm, Refills 11, Route to Pharmacy Electronically, NCPDP_[id number], [facility], 158.02, cm, 11/13/20 8:38:00 EDT, [...] 1resolved after weight loss 2chronic perst 3gyn 04880 5testing negative insulinoma 6likley dumping sydrome 7abnormal GTT ;sugar 36 two hours into test 8sees gi 9normal CT brain 10new 115.3 cm,right per ct scan recent;seeing gynecology soon;they will review 12vit d deficiency;correct [id number] 14per endocrinology monitor 15correction refer GTT; 2 hour glucose 36 16refer GGT 17seeing ortho;pre op 18asma,ama neg/cerulopalsmain wnl,AAT wnl 19Negative hep A antibody positive hep B surface antibody negative antigen negative hep C, normal ferritin 20ukltrasound Social History Social History Type Response Smoking Status Never smoker entered on: 02/20/13 Sex
--- OUTSIDE RECORDS SUMMARY | 2022-08-17 08:26 | XMS_ITS | Continuity of Care Document ---
Author Name Unknown Organization [facility] Address Unknown Care Team Providers Care Primer Powder Blender Wet Name Role Phone Louisa LANDRUM, Taras Fuentes Primary Care Physician Encounter [facility] Date(s): 12/14/20 - 01/13/21 [facility] Allergies, Adverse Reactions, Alerts Substance [...] toxoids (Td) 08/03/05 Given 1Result Comment: [12/07/2017] [id number] 2Result Comment: [12/21/2016] [facility]: [id number] 3Result Comment: [06/10/2015] #3 4Admin Note: per pt 5Admin Note: given in clinic Medications Abilify 10 mg oral tablet 10 mg, 1, tablet, By Mouth, Daily, # 30 tablet, Refills 0, Maintenance, 01/06/21 8:08:00 EDT, Partial fill upon patient request if the prescription is for a schedule II opioid drug. Start Date: 01/06/21 Status: Ordered acarbose 50 mg oral tablet [...] 5 Refills, Maintenance, 11/06/20 10:28:00 EDT, Tablet, [facility], Replaces loratidine, 158.02, cm, 11/06/20 10:04:00 EDT, Height,67, kg, 09/11/19 11:20:00 EDT, Dry Weight Start Date: 11/06/20 Status: Ordered Dexilant 60 mg oral delayed [...] 0 Refills, Maintenance, 11/03/20 7:49:00 EDT, Tablet, [facility] [...] 6 Refills, Maintenance, 12/10/20 12:36:00 EDT,DIS Tablet, [facility], has t... Start Date: 12/10/20 Stop Date: 07/08/21 Status: Ordered [place] 0.65% nasal spray 2 sprays, Nares, Both, 4 times a day, # 1 each, 0 Refills, Maintenance, 10/30/20 11:34:00 EDT, [facility] [...] 8:26:00 EDT, Aerosol, Route to Pharmacy Electronically, NCPDP_[id number], [facility], 158.02, cm, 01/06/21 8:03:00 EDT, Height, [...] Gm, Refills 11, Route to Pharmacy Electronically, NCPDP_[id number], [facility], 158.02, cm, 11/13/20 8:38:00 EDT, Height, 67, kg, 09/11/19 11:20:00 EDT, Dry Weight Start Date: 11/20/20 Status: Ordered Vitamin B-12 1000 mcg/mL injectable solution See Instructions, 1,000 mcg Subcutaneous Every 7 days x 8 weeks then once a month there after per PCP, # 30 mL, 1 Refills, Maintenance, 01/06/21 13:36:00 EDT, [facility], Partialfill upon patient request if the [...] 10 Active Obesity(Confirmed) Active Orthostatic hypotension(Confirmed) Active Osteoporosis(Confirmed) 07/03/20 Active Ovarian cyst(Confirmed) 11 Active Leg paresthesia(Confirmed) 07/24/17 Active Personal history of gastric bypass ? 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 Impingement syndrome of shoulder(Confirmed) 17 Active Fatty liver(Confirmed) 18, 19, 20 10/09/16 Active Vitamin D deficiency(Confirmed) Active 1resolved after weight loss 2chronic perst 3gyn 88527 5testing negative insulinoma 6likley dumping sydrome 7abnormal GTT ;sugar 36 two hours into test 8sees gi 9normal CT brain 10new 115.3 cm,right per ct scan recent;seeing gynecology soon;they will review 12vit d deficiency;correct [id number] 14per endocrinology monitor 15correction refer GTT; 2 hour glucose 36 16refer GGT 17seeing ortho;pre op 18asma,ama neg/cerulopalsmain wnl,AAT wnl 19Negative hep A antibody positive hep B surface antibody negative antigen negative hep C, normal ferritin 20ukltrasound Social History Social History Type Response Smoking Status Never smoker entered on: 02/20/13 Sex
--- OUTSIDE RECORDS SUMMARY | 2022-08-17 08:26 | XMS_ITS | Continuity of Care Document ---
Author Name Unknown Organization [facility] Address [address] [place] [address]- Care Team Providers Care Compressed Gas Equipment Mechanic Name Role Phone Louisa LANDRUM, Taras Fuentes Primary Care Physician [place] [facility](s): 04/27/20 - 06/12/[address] [address] Attending Physician: Yulisa Mora MD Admitting Physician: Yulisa Mora MD Referring Physician: Yulisa Mora MD Allergies, Adverse Reactions, [...] toxoids (Td) 08/03/05 Given 1Result Comment: [12/07/2017] [id number] 2Result Comment: [12/21/2016] [facility]: [id number] 3Result Comment: [06/10/2015] #3 4Admin Note: per [...] 0 Refills, Maintenance, 07/03/19 13:59:00 EDT, Solution, [facility], 160, cm, 05/29/19 13:36:00 EDT, [...] 60 capsule, 5 Refills, Maintenance, 05/07/20 15:54:00EST, [facility], 160.02, cm, 05/01/20 9:18:00 EST, [...] 02/25/19 16:55:00 EST, Route to Pharmacy Electronically, [facility], 158, cm, 02/14/19 7:55:00 EST, Height, 61.9, kg, 02/12/19 10:17:00... Start Date: 02/25/19 Status: Ordered montelukast 10 mg oral tablet 10 mg, 1, tablet, By Mouth, Daily in PM, # 90 tablet, Refills 3, Tot. Refills 3, Maintenance, 08/15/19 16:21:00 EDT, Route to Pharmacy Electronically, [facility], 160, cm, 08/15/19 13:45:00 EDT, Height, 56.5, kg, 05/29/19 13:36:00... Start Date: 08/15/19 Status: Ordered ProAir HFA 90 mcg/inh inhalation aerosol with adapter 2, puffs, Inhalation, Every 4 hours, PRN, # 8.5 Gm, Refills 2, Tot. Refills 2, Maintenance, 04/29/19 11:32:00 EST, Aerosol, Route to Pharmacy Electronically, NCPDP_[id number], [facility], 160, cm, 04/29/19 10:47:00 EST, Height... Start Date: 04/29/19 Status: Ordered Topamax 50 mg oral tablet See Instructions, take 1 tab in am and 2 tab at bedtime. If AM dose causes bad sedation, add to HS dose., # 90 tablet, 6 Refills, Maintenance, 03/12/20 11:09:00 EST, Tablet, [facility], weaning zonegran off by 25mg every 2 days t... Start Date: 03/12/20 Status: Ordered ubrogepant 100 mg oral tablet 1 tablet = 100 mg, By Mouth, Daily, # 10 tablet, 6 Refills, Soft Stop, 03/12/20 11:04:00 EST, [facility], Partial [...] perst 3folowed by mental health;recent hospitalization 4gyn 69779 6testing negative insulinoma 7likley dumping sydrome 8abnormal GTT ;sugar 36 two hours into test 9sees gi 10normal CT brain 11new 125.3 cm,right per ct scan recent;seeing gynecology soon;they will review 13vit d deficiency;correct [id number] 15per endocrinology monitor 16correction refer GTT; 2 hour glucose 36 17refer GGT 18seeing ortho;pre op 19asma,ama neg/cerulopalsmain wnl,AAT wnl 20Negative hep A antibody positive hep B surface antibody negative antigen negative hep C, normal ferritin 21ukltrasound Social History Social History Type Response Smoking Status Never smoker entered on: 02/20/13 Sex
--- OUTSIDE RECORDS SUMMARY | 2022-08-17 08:26 | XMS_ITS | Continuity of Care Document ---
Author Name Unknown Organization [facility] ter Address [address] [place] [id number]- Care Team Providers Care Legal Intern Name Role Phone Eran PROGRAMMER DEVELOPER, Sue Dahl Primary Care Physician [phone] Encounter [facility] [place] Date(s): 08/31/21 - 09/07/[address] [address]- Encounter Diagnosis Abscess of abdominal cavity(Final) - 08/31/21 History of Asa-en-Y gastric bypass(Final) - 08/31/21 Hx SBO(Final) - 08/31/21 Abdominal pain, acute(Final) - 08/31/21 Discharge Disposition: A-Transfer VNA/Home Health Attending Physician: Avery Costello MD Admitting Physician: Avery Costello MD Referring Physician: Not on Staff, Referring MD Allergies, Adverse Reactions, Alerts Substance Reaction Severity Status Dust Allergy to pollen Active Pollen seasonal allergies respiratory symptoms Active Incruse Ellipta 1 lightheaded and migraine Active 1dizzy Immunizations Given and Recorded Vaccine Date Status Refusal Reason SARS-CoV-2 mRNA ([id number]) vax 05/01/21 Recorded influenza virus vaccine, inactivated [...] toxoids (Td) 08/03/05 Given 1Result Comment: [12/07/2017] [address]-74 2Result Comment: [12/21/2016] [facility]: [id number] 3Result Comment: [06/10/2015] #3 4Admin Note: per pt 5Admin Note: given in clinic Medications acarbose 25 mg oral tablet 1 tablet = 25 mg, By Mouth, 3 times a day, Take 1 tab (plus 1 50mg tab), 3 times daily with meals.,# 270 tablet, 3 Refills, Maintenance, 02/03/21 8:34:00 EST, Tablet, [facility], Partial fill upon patient request if the prescript... Start Date: 02/03/21 Status: Ordered acarbose 50 mg oral tablet 1 tablet = 50 mg, By Mouth, 3 times a day, Take 1 tab (plus 1 25mg tab), 3 times daily with meals.,# 270 tablet, 3 Refills, Maintenance, 02/03/21 8:34:00 EST, Tablet, [facility], Partial fill upon [...] constipation, 08/23/21 8:22:00 EDT, Route to Pharmacy Electronically,[facility], Partial fill upon patient... Start Date: 08/23/21 Status: Ordered Dexilant 60 mg oral delayed release capsule 1 capsule = 60 mg, By Mouth, 2 times a day, 30 min before meal, # 60 capsule, 5 Refills, Maintenance, 04/16/21 14:29:00 EST, CR Capsule, [facility], Partial fill upon patient request if the prescription is for a schedule II opioi... Start Date: 04/16/21 Status: Ordered Emgality Prefilled Pen 120 mg/mL subcutaneous solution = 120 mg, Subcutaneous Injection, Once, Maintenance Dose, # 1 kit, 6 Refills, Soft Stop, 06/29/21 10:09:00 EDT, [facility], Partial fill upon patient request if the prescription is for a schedule II opioid drug., Keven, albertina, 06/29/21... Start Date: 06/29/21 Status: Ordered EPINEPHrine 1 mg/mL injectable solution 0.3 mL = 0.3 mg, Intramuscular, Once, # 1 mL, 1 Refills, Soft Stop, 03/08/21 15:07:00 EST, Solution, [facility], Partial fill upon [...] to Pharmacy Electronically, [facility], 158, cm, 05/14/21 7:52:00 EST, Height, 80.6, kg, 03/08/21 12:18:00 EST, D... Start Date: 05/24/21 Status: Ordered meclizine 25 mg oral tablet See Instructions, PRN for dizziness, Take 1 tablet every 8 hours as needed for dizziness, # 15 tablet, 0 Refills, Maintenance, 11/03/20 7:49:00 EDT, Tablet, [facility], Partial fill upon patient request if the prescription is for... Start Date: 11/03/20 Status: Ordered montelukast 10 mg oral tablet 10 mg, 1, tablet, By Mouth, Daily in PM, # 90 tablet, Refills 1, Tot. Refills 1, Maintenance, 04/23/21 12:32:00 EST, Route to Pharmacy Electronically, [facility], 158, cm, 04/09/21 8:13:00 EST, Height, [...] Maintenance, 12/10/20 12:36:00 EDT,DIS Tablet, [facility], has t... Start Date: 12/10/20 Stop Date: 07/08/21 Status: Ordered Readi-Cat 2 oral suspension See Instructions, Dispense : 2 Bottles 450 ml each Dx: Hernia, # 900 mL, 0 Refills, Maintenance, 09/07/21 15:24:00 EDT, [id number], Partial fill upon patient request if the prescription is for a schedule II opioid drug., Dispense : 2 Bottles... Start Date: 09/07/21 Status: Ordered Reclast = 5 mg, IV Infusion, Once, 0 Refills, Maintenance, 11/06/20 10:24:00 EDT, administered at [facility] 10/2020 Start Date: 11/06/20 Status: [...] 1resolved after weight loss 2chronic perst 3gyn [id number] 5testing negative insulinoma 6likley dumping sydrome 7abnormal GTT ;sugar 36 two hours into test 8sees gi 9normal CT brain 10new 115.3 cm,right per ct scan recent;seeing gynecology soon;they will review 12vit d deficiency;correct [id number] 14per endocrinology monitor 15correction refer GTT; 2 hour glucose 36 16refer GGT 17seeing ortho;pre op 18asma,ama neg/cerulopalsmain wnl,AAT wnl 19Negative hep A antibody positive hep B surface antibody negative antigen negative hep C, normal ferritin 20ukltrasound Results Orders for Microbiology Reports Name Date Wound Deep Culture w/ Gram Smear (DEEP W OUND CULTURE) 09/02/21 Anaerobic Culture 09/02/21 Microbiology Reports TEST:Anaerobic Culture STATUS:Auth (Verified) BODY SITE: SOURCE:ABSCES COLLECTED DATE/TIME:09/02/21 4:50 PM Anaerobic Culture SPECIMEN DESCRIPTION : ABSCESS ABDOMEN SPECIAL REQUESTS : NONE CULTURE : NO ANAEROBES ISOLATED REPORT STATUS : FINAL 09/05/2021 TEST:Deep Wound Culture STATUS:Modified/Amended/Corrected BODY SITE: SOURCE:ABSCES COLLECTED DATE/TIME:09/02/21 4:50 PM Deep Wound Culture SPECIMEN DESCRIPTION : ABSCESS ABDOMEN SPECIAL REQUESTS : NONE GRAM STAIN : 4+ POLYMORPHONUCLEAR LEUKOCYTES 3+ GRAM POSITIVE RODS CULTURE : 4+ Escherichia coli. This isolate produces extended spectrum beta-lactamase (ESBL). 4+ STREPTOCOCCUS ANGINOSUS Formerly reported as part of the Viridans Streptococcus group. SUSCEPTIBILITY TESTING NOT ROUTINELY PERFORMED ON THIS ISOLATE. This isolate was identified using Maldi-TOF system FAXED REPORT TO: INFECTION CONTROL AT 0905 ON 09/05/21 TECH 152. REPORT STATUS : FINAL 09/05/2021 ORGANISM 4+ Escherichia coli. This isolate produces extended spectrum beta-lactamase (ESBL). METHOD MIN. INHIB. CONC. (MCG/ML) AMIKACIN SUSCEPTIBLE AMPICILLIN RESISTANT AMPICILLIN/SULBACTAM INTERMEDIATE AMOXICILLIN/CLAVULAN INTERMEDIATE CEFAZOLIN RESISTANT CEFEPIME RESISTANT CEFTRIAXONE RESISTANT CIPROFLOXACIN RESISTANT ERTAPENEM SUSCEPTIBLE GENTAMICIN RESISTANT LEVOFLOXACIN RESISTANT MEROPENEM SUSCEPTIBLE PIPERACILLIN/TAZOBAC SUSCEPTIBLE TOBRAMYCIN RESISTANT TRIMETH/SULFAMETHOX RESISTANT TETRACYCLINE RESISTANT Vital Signs Most recent to oldest [Reference Range]: 1 2 3 Height 158 cm (09/07/21 12:00 PM) 158 cm (09/07/21 7:00 AM) 158 cm (09/07/21 5:23 AM) Weight 71.5 kg (09/01/21 4:21 PM) Oxygen Saturation [94-100 %] 98 % (09/07/21 12:00 PM) 97 % (09/07/21 7:00 AM) 97 % (09/07/21 5:23 AM) Pulse Rate [55-90 bpm] 94 bpm *H* (09/07/21 12:00 PM) 99 bpm *H* (09/07/21 7:00 AM) 74 bpm (09/07/21 5:23 AM) Body Mass Index [18.5-24.99] 28.64 *H* (09/01/21 4:21 PM) Blood Pressure [90-138/55-84 mm Hg] 129/90mm Hg (09/07/21 12:00 PM) 115/80mm Hg (09/07/21 7:00 AM) 113/68mm Hg (09/07/21:23 AM) Respiratory Rate [16-30 br/min] 18 br/min (09/07/21 12:00 PM) 18 br/min (09/07/21 7:00 AM) 16 br/min (09/07/21 5:23 AM) Temperature [96.8-100.4 DegF] 98.2 DegF (09/07/21 12:00 PM) 98.2 DegF (09/07/21 7:00 AM) 98.1 DegF (09/07/21:23 AM) Mode of Delivery (Oxygen) Room air (09/07/21 12:00 PM) Room air (09/07/21 7:00 AM) Room air (09/07/21 5:23 AM) Blood pressure sites Arm, left (09/07/21 12:00 PM) Arm, left (09/07/21 7:00 AM) Arm, left (09/07/21:23 AM) Temperature Route Oral (09/07/21 12:00 PM) Oral (09/07/21 7:00 AM) Oral (09/07/21 5:23 AM) Dry Weight 71.5 kg (09/01/21 4:21 PM) 71.5 kg (09/01/21 12:18 PM) 71.5 kg (09/01/21 10:22 AM) Dry Weight Obtained Via Patient/family s tated (08/31/21 12:45 PM) Social History Social History Type Response Smoking Status Never smoker entered on: 02/20/13 Sex
--- OUTSIDE RECORDS SUMMARY | 2022-08-17 08:26 | XMS_ITS | Continuity of Care Document ---
Author Name Unknown Organization [facility] Address [address] [place] [address]- Care Team Providers Care Supervisor Fine Grading Name Role Phone Louisa LANDRUM, Taras Fuentes Primary Care Physician [phone] Encounter [facility] Date(s): 10/24/19 - 11/23/19 [facility] [address] [place] [id number]- [facility] Allergies, Adverse Reactions, Alerts Substance Reaction Severity [...] toxoids (Td) 08/03/05 Given 1Result Comment: [12/07/2017] [address]-36 2Result Comment: [12/21/2016] [facility] [place]: [id number] 3Result Comment: [06/10/2015] #3 4Admin Note: per [...] 07/07/2012:36:00 EDT, Aerosol, Route to Pharmacy Electronically, NCPDP_[id number], [facility], 160, cm, 07/08/19 13:03:00 EDT, Height, [...] 60 capsule, 5 Refills, Maintenance, 07/30/19 10:21:00EDT, [facility], 160, cm, 07/08/19 13:03:00 EDT, Height, 56.5, kg, 05/29/19 13:36:00 EDT, Dry Weight Start Date: 07/30/19 Status: Ordered eletriptan 40 mg oral tablet 1 tablet = 40 mg, By Mouth, Daily, PRN for migraine headache, # 9 tablet, 5 Refills, Soft Stop, 07/16/19 9:23:00 EDT, Tablet, [facility], she has tried sumatriptan and rizatriptan. [...] Refills, Maintenance, 11/15/19 10:29:00 EDT, REC Powder, [facility], 240 mL By Mouth Every 10 minutes, 160.02, cm, 11/15/19 10:05:00 EDT, Height, 67, kg, 09/11/19 11:20:00 EDT, Dry... Start Date: 11/15/19 Status: Ordered ondansetron 4 mg oral tablet, disintegrating 1 tablet = 4 mg, By Mouth, Every 8 hours, PRN as needed for nausea/vomiting, # 9 tablet, 0 Refills,Maintenance, 10/06/19 21:07:00 EDT, DIS Tablet, [facility] Start Date: 10/06/19 Stop Date: 10/09/19 Status: Ordered ProAir HFA 90 mcg/inh inhalation aerosol with adapter 2, puffs, Inhalation, Every 4 hours, PRN, # 8.5 Gm, Refills 2, Tot. Refills 2, Maintenance, 04/29/19 11:32:00 EST, Aerosol, Route to Pharmacy Electronically, NCPDP_[id number], [facility] [...] 07/08/19 13:36:00 EDT, Route to Pharmacy Electronically, NCPDP_[id number], [facility], 160, cm, 07/08/19 13:03:00 ED... Start Date: 07/08/19 Status: Ordered Topamax 50 mg oral tablet 2 tablet = 100 mg, By Mouth, Daily at bedtime, # 60 tablet, 6 Refills, Maintenance, 11/04/19 11:08:00 EDT, Tablet, [facility], weaning zonegran off by 25mg every 2 days then can start topamax., 160.02, cm, 10/29/19 12:35:00 EDT, H... Start Date: 11/04/19 Stop Date: 06/01/20 Status: Ordered Zofran 4 mg oral tablet 1 tablet = 4 mg, By Mouth, Every 8 hours, PRN Nausea & Vomiting, # 30 tablet, 0 Refills, Maintenance, 09/30/19 11:23:00 EDT, [facility], 160.02, cm, 09/24/19 15:31:00 EDT, Height, [...] perst 3folowed by mental health;recent hospitalization 4gyn 78339 6testing negative insulinoma 7likley dumping sydrome 8abnormal GTT ;sugar 36 two hours into test 9sees gi 10normal CT brain 11new 125.3 cm,right per ct scan recent;seeing gynecology soon;they will review 13vit d deficiency;correct [id number] 15per endocrinology monitor 16correction refer GTT; 2 hour glucose 36 17refer GGT 18seeing ortho;pre op 19asma,ama neg/cerulopalsmain wnl,AAT wnl 20Negative hep A antibody positive hep B surface antibody negative antigen negative hep C, normal ferritin 21ukltrasound Social History Social History Type Response Smoking Status Never smoker entered on: 02/20/13 Sex
--- OUTSIDE RECORDS SUMMARY | 2022-08-17 08:26 | XMS_ITS | Continuity of Care Document ---
Author Name Unknown Organization [facility] Address [address] [place] [address]- Care Team Providers Care Food Taster Name Role Phone Louisa LANDRUM, Taras Fuentes Primary Care Physician [phone] [place] [facility] [place] 05[place]04[place]20 - 06/03/20 [facility] [address] [place] [id number] Allergies, Adverse Reactions, Alerts Substance Reaction [...] toxoids (Td) 08/03/05 Given 1Result Comment: [12/07/2017] [address]-10 2Result Comment: [12/21/2016] [facility]: 42128-760-19 3Result Comment: [06/10/2015] #3 4Admin Note: per [...] 0 Refills, Maintenance, 07/03/19 13:59:00 EDT, Solution, [facility], 160, cm, 05/29/19 13:36:00 EDT, [...] 60 capsule, 5 Refills, Maintenance, 05/07/20 15:54:00EST, [facility], 160.02, cm, 05/01/20 9:18:00 EST, [...] 02/25/19 16:55:00 EST, Route to Pharmacy Electronically, [facility], 158, cm, 02/14/19 7:55:00 EST, Height, 61.9, kg, 02/12/19 10:17:00... Start Date: 02/25/19 Status: Ordered montelukast 10 mg oral tablet 10 mg, 1, tablet, By Mouth, Daily in PM, # 90 tablet, Refills 3, Tot. Refills 3, Maintenance, 08/15/19 16:21:00 EDT, Route to Pharmacy Electronically, [facility], 160, cm, 08/15/19 13:45:00 EDT, Height, 56.5, kg, 05/29/19 13:36:00... Start Date: 08/15/19 Status: Ordered ProAir HFA 90 mcg/inh inhalation aerosol with adapter 2, puffs, Inhalation, Every 4 hours, PRN, # 8.5 Gm, Refills 2, Tot. Refills 2, Maintenance, 04/29/19 11:32:00 EST, Aerosol, Route to Pharmacy Electronically, NCPDP_[id number], [facility], 160, cm, 04/29/19 10:47:00 EST, Height... Start Date: 04/29/19 Status: Ordered Topamax 50 mg oral tablet See Instructions, take 1 tab in am and 2 tab at bedtime. If AM dose causes bad sedation, add to HS dose., # 90 tablet, 6 Refills, Maintenance, 03/12/20 11:09:00 EST, Tablet, [facility], weaning zonegran off by 25mg every 2 days t... Start Date: 03/12/20 Status: Ordered ubrogepant 100 mg oral tablet 1 tablet = 100 mg, By Mouth, Daily, # 10 tablet, 6 Refills, Soft Stop, 03/12/20 11:04:00 EST, [facility], Partial fill [...] perst 3folowed by mental health;recent hospitalization 4gyn 90848 6testing negative insulinoma 7likley dumping sydrome 8abnormal GTT ;sugar 36 two hours into test 9sees gi 10normal CT brain 11new 125.3 cm,right per ct scan recent;seeing gynecology soon;they will review 13vit d deficiency;correct [id number] 15per endocrinology monitor 16correction refer GTT; 2 hour glucose 36 17refer GGT 18seeing ortho;pre op 19asma,ama neg/cerulopalsmain wnl,AAT wnl 20Negative hep A antibody positive hep B surface antibody negative antigen negative hep C, normal ferritin 21ukltrasound Social History Social History Type Response Smoking Status Never smoker entered on: 02/20/13 Sex
--- OUTSIDE RECORDS SUMMARY | 2022-08-17 08:26 | XMS_ITS | Continuity of Care Document ---
Author Name Unknown Organization [facility] Address [address] [place] [id number]- Care Team Providers Care Chicle Grinder Feeder Name Role Phone Taras Jasso MD Primary Care Physician [phone] Encounter [facility] [place] Date(s): 02/15/19 - 06/15/19 [facility] [address] [place] [address]- [facility] Attending Physician: Yulisa Mora MD Admitting Physician: Yulisa Mora MD Referring Physician: Taras Jasso MD Allergies, [...] toxoids (Td) 08/03/05 Given 1Result Comment: [12/07/2017] [address]-10 2Result Comment: [12/21/2016] [facility] [place] 2]: [id number] 3Result Comment: [06/10/2015] #3 4Admin Note: per [...] 05/17/19 12:02:00 EDT, Route to Pharmacy Electronically, [facility], 160, cm, 05/16/19 10:27:00 EDT, [...] 11:32:00 EST, Aerosol, Route to Pharmacy Electronically, NCPDP_[id number], [facility], 160, cm, 04/29/19 10:47:00 EST, Height... Start Date: 04/29/19 Status: Ordered rizatriptan 10 mg oral tablet 1 tablet = 10 mg, By Mouth, Daily, PRN for migraine headache, # 9 tablet, 5 Refills, Soft Stop, 06/04/19 15:37:00 EDT, Tablet, [facility], sumatriptan ineffective. If insurance says no [...] 5 Refills, Maintenance, 05/30/19 11:48:00 EDT, Capsule, [facility], 160, cm, 05/29/19 [...] perst 3folowed by mental health;recent hospitalization 4gyn [address] 6testing negative insulinoma 7likley dumping sydrome 8abnormal GTT ;sugar 36 two hours into test 9sees gi 10normal CT brain 11new 125.3 cm,right per ct scan recent;seeing gynecology soon;they will review 13vit d deficiency;correct [id number] 15per endocrinology monitor 16correction refer GTT; 2 hour glucose 36 17refer GGT 18seeing ortho;pre op 19asma,ama neg/cerulopalsmain wnl,AAT wnl 20Negative hep A antibody positive hep B surface antibody negative antigen negative hep C, normal ferritin 21ukltrasound Social History Social History Type Response Smoking Status Never smoker entered on: 02/20/13 Sex
--- OUTSIDE RECORDS SUMMARY | 2022-08-17 08:26 | XMS_ITS | Continuity of Care Document ---
Author Name Unknown Organization [facility] Address [address] [place] [address]- Care Team Providers Care Hand Fur Cleaner Name Role Phone Eran Sue JOHNSON Primary Care Physician Encounter [facility] [place] Date(s): 06/13/22 - 07/13/22 [facility] [address] [place] [address]- [place] Allergies, Adverse Reactions, Alerts Substance Reaction Severity Status Dust Allergy to pollen Active Pollen seasonal allergies respiratory symptoms Active Incruse Ellipta 1 lightheaded and migraine Active 1dizzy Immunizations Given and Recorded Vaccine Date Status Refusal Reason [id number] 12y+ bivalent booster vax 1 12/24/21 Given [...] vaccine, inactivated 02/08/11 Give n SARS-CoV-2 mRNA ([id number]) vax 05/01/21 Recorded zoster vaccine, inactivated 11/03/20 [...] tetanus-diphtheria toxoids (Td) 08/03/05 Given 1Result Comment: [id number] 2Result Comment: [id number] 3Result Comment: [12/07/2017] [address]-35 4Result Comment: [12/21/2016] [facility]: 67130-899-89 5Result Comment: [06/10/2015] #3 6Admin Note: per pt 7Admin Note: given in clinic Medications acetaminophen 500 mg oral tablet 2 tablet = 1,000 mg, By Mouth, Every 6 hours, PRN as needed for fever, # 200 tablet, 0 Refills, Maintenance, 12/03/21 10:17:00 EDT, Tablet, [facility], Partial fill upon patient request if the prescription is for a schedule II opi... Start Date: 12/03/21 Status: Ordered Albuterol (Eqv-ProAir HFA) 90 mcg/inh inhalation aerosol 2 puffs, Inhalation, Every 4 hours, PRN NEEDED FOR WHEEZING, # 8.5 Gm, 5 Refills, Maintenance, 03/09/22 11:21:00 EST, [facility], 17, INHALE TWO PUFFS BY [...] 6 Refills, Maintenance, 11/03/21 8:23:00 EDT, Tablet, [facility], 2 tablet By Mouth 2 times a day, 158, cm, 11/03/21 8:01:00 EDT,Height, 71.5, kg, 09/01/21 16:21:00 EDT, Dry Weight Start Date: 11/03/21 Status: Ordered Carafate 1 gm/10 ml oral suspension 10 mL = 1 Gm, By Mouth, 3 times a day before meals and bedtime, # 1,200 mL, 5 Refills, Maintenance,04/29/22 9:16:00 EST, [facility] #[id number], Partial fill upon patient request if the prescription is for a schedule II opioid drug., 158, cm, 02... Start Date: 04/29/22 Status: Ordered cetirizine 10 mg oral tablet 1 tablet, By Mouth, Daily, # 30 tablet, 5 Refills, Maintenance, 06/03/22 11:40:00 EDT, [facility], 158, cm, 05/25/22 13:59:00 EDT, [...] Refills, Maintenance, 05/30/22 7:57:00 EDT, CR Capsule, [facility], Partial fill upon patient request if the prescription is for a schedule II opioid... Start Date: 05/30/22 Status: Ordered Emgality Prefilled Pen 120 mg/mL subcutaneous solution = 120 mg, Subcutaneous Injection, Once, Maintenance Dose, # 3 kit, 2 Refills, Soft Stop, 03/17/22 8:08:00 EST, [facility], requesting 3 month supply for cheaper martinez. with 2 refills, 163, albertina, 03/15/22 10:13:00 EST, Height, 68.1,... Start Date: 03/17/22 Status: Ordered EPINEPHrine 1 mg/mL injectable solution 0.3 mL = 0.3 mg, Intramuscular, Once, # 1 mL, 1 Refills, Soft Stop, 03/08/21 15:07:00 EST, Solution, [facility], Partial fill upon patient request if the prescription is for a schedule II opioid drug., 158, cm, 03/08/21 12:18:00 E... Start Date: 03/08/21 Status: Ordered famotidine 40 mg oral tablet 1 tablet = 40 mg, By Mouth, 2 times a day, # 60 tablet, 6 Refills, Maintenance, 01/31/22 14:05:00 EST, Suspension, [facility], Partial fill upon patient request if the prescription is for a schedule II opioid drug., 163, cm, 01/18... Start Date: 01/31/22 Stop Date: 08/29/22 Status: Ordered Fiber Choice 1.5 g oral tablet, chewable 1 tablet = 1.5 Gm, Chew, 3 times a day, # 90 tablet, 0 Refills, Maintenance, 04/09/22 15:16:00 EST,Chew Tablet, [facility] #[id number], Partial fill upon patient request if the [...] Refills, Maintenance, 04/09/22 15:16:00 EST, REC Powder, [facility] #[id number], Partial fill upon patient request if the prescription is for a schedule II opioid drug., 17 Gm... Start Date: 04/09/22 Status: Ordered montelukast 10 mg oral tablet 1, tablet, By Mouth, Daily in PM, # 90 tablet, Refills 1, Tot. Refills 1, Maintenance, 11/14/21 11:28:00 EDT, Route to Pharmacy Electronically, [facility], 158, cm, 11/03/21 8:01:00 EDT, Height, 71.5, kg, 09/01/21 16:21:00 EDT, . Start Date: 11/14/21 Status: Ordered Nurtec ODT 75 mg oral tablet, disintegrating See Instructions, TAKE ONE TABLET DAILY NEEDED FOR migraines, DO NOT EXCEED ONE TABLET IN 24 HOURS, # 8 tablet, 6 Refills, Maintenance, 12/28/21 15:14:00 EDT, [facility], 163,cm, 12/24/21 8:20:00 EDT, Height, [...] 0 Refills, Maintenance, 04/09/22 15:17:00 EST, Capsule, [facility] #[id number], Partial fill upon patient request if the prescription is for a schedule II opioid drug., 1 capsule By Mouth Daily in P... Start Date: 04/09/22 Status: Ordered Symbicort 160mcg/4.5mcg Inhaler 2, puffs, Inhalation, 2 times a day, rinse mouth and throat after use, # 10.2 Gm, Refills 2, Tot. Refills 2, Maintenance, 06/10/22 20:48:00 EDT, Route to Pharmacy Electronically, NCPDP_[id number], [facility], 158, cm, 06/07/22 10:... Start [...] Active Vitamin D deficiency Confirmed Active 1gyn 29818 3testing negative insulinoma 4likley dumping sydrome 5abnormal GTT ;sugar 36 two hours into test 6normal CT brain 7new 8resolved after weight loss 9chronic perst 105.3 cm,right per ct scan recent;seeing gynecology soon;they will review 11vit d deficiency;correct [id number] 13per endocrinology monitor 14correction refer GTT; 2 hour glucose 36 15refer GGT 16seeing ortho;pre op 17asma,ama neg/cerulopalsmain wnl,AAT wnl 18Negative hep A antibody positive hep B surface antibody negative antigen negative hep C, normal ferritin 19ukltrasound Social History Social History Type Response Smoking Status Never smoker entered on: 02/20/13 Sex Patient Care team information Care Team Personnel Name: Caitlyn Mcgee RN Position: [facility] RN Member Role: Primary Care Nurse Name: Sue Barillas NP Position: [facility] PCO Associate Professional Member Role: PCP Address: Address: [address] [place] [address]- Name: Andria Guadalupe RN Position: [facility] RN Member Role: Primary Care Nurse Name: Liz Martin RN Position: [facility] RN Member Role: Primary Care Nurse Name: Ambreen Mcmahon RN Position: [facility] RN Member Role: Primary Care Nurse Name: Irais Grijalva RN Position: [facility] RN Member Role: Primary Care Nurse Name: Autumn Martinez RN Position: [facility] SN RN Member Role: Primary Care Nurse Name: Liz English RN Position: [facility] RN Member Role: Primary Care Nurse Name: Dora Williamson RN Position: [facility] RN Member Role: Primary Care Nurse Care Team Related Persons Name: KHUSHI CUNNINGHAM Address: home [address] [place] [address] Name: BHUPINDER VENEGAS Address: [address] [place] [address] Name: FELIPE FLORES Address: home [address] [place] [address] Name: ARNAV FLORES Address: home [address] [place] [address] Name: IRINA FLORES Address: home [address] [place] [address] Name: RUSLAN FLORES Address: home [address] [place] [address] Name: KAISER PLUNKETT Address: home [address] [place] [address]
--- OUTSIDE RECORDS SUMMARY | 2022-08-17 08:26 | XMS_ITS | Continuity of Care Document ---
Author Name Unknown Organization [facility] Address [address] [place] [address]- Care Team Providers Care Rampman Name Role Phone Louisa LANDRUM, Taras Fuentes Primary Care Physician [phone] Encounter [facility] [place] Date(s): 05/24/19 - 05/31/19 [facility] [address] [place] [address]- [facility] Encounter Diagnosis Sinusitis(Discharge Diagnosis) - 05/24/19 Attending Physician: Not on Staff, Attending MD [...] toxoids (Td) 08/03/05 Given 1Result Comment: [12/07/2017] [id number] 2Result Comment: [12/21/2016] [facility]: 79269-330-29 3Result Comment: [06/10/2015] #3 4Admin Note: per [...] 05/17/19 12:02:00 EDT, Route to Pharmacy Electronically, [facility], 160, cm, 05/16/19 10:27:00 [...] 11:32:00 EST, Aerosol, Route to Pharmacy Electronically, NCPDP_[id number], [facility], [...] 5 Refills, Maintenance, 05/30/19 11:48:00 EDT, Capsule, [facility], 160, cm, 05/29/19 [...] perst 3folowed by mental health;recent hospitalization 4gyn 54283 6testing negative insulinoma 7likley dumping sydrome 8abnormal GTT ;sugar 36 two hours into test 9sees gi 10normal CT brain 11new 125.3 cm,right per ct scan recent;seeing gynecology soon;they will review 13vit d deficiency;correct [id number] 15per endocrinology monitor 16correction refer GTT; 2 hour glucose 36 17refer GGT 18seeing ortho;pre op 19asma,ama neg/cerulopalsmain wnl,AAT wnl 20Negative hep A antibody positive hep B surface antibody negative antigen negative hep C, normal ferritin 21ukltrasound Diagnosis Diagnosis Type Effective Dates Health Status Cl[facility] Service Informant Sinusitis Discharge Diagnosis 05/24/19 Social History Social History Type Response Smoking Status Never smoker entered on: 02/20/13 Sex
--- OUTSIDE RECORDS SUMMARY | 2022-08-17 08:26 | XMS_ITS | Continuity of Care Document ---
Author Name Unknown Organization [facility] Address [address] [place] [address]- Care Team Providers Care Project Structural Engineer Name Role Phone Eran Sue JOHNSON Primary Care Physician Encounter [facility] [place] Date(s): 06/08/22 - 07/08/22 [facility] [address] [place] [address]- [place] Allergies, Adverse Reactions, Alerts Substance Reaction Severity Status Dust Allergy to pollen Active Pollen seasonal allergies respiratory symptoms Active Incruse Ellipta 1 lightheaded and migraine Active 1dizzy Immunizations Given and Recorded Vaccine Date Status Refusal Reason [id number] 12y+ bivalent booster vax 1 12/24/21 Given [...] vaccine, inactivated 02/08/11 Give n SARS-CoV-2 mRNA ([id number]) vax 05/01/21 Recorded zoster vaccine, inactivated 11/03/20 [...] tetanus-diphtheria toxoids (Td) 08/03/05 Given 1Result Comment: [id number] 2Result Comment: [id number] 3Result Comment: [12/07/2017] [address]-14 4Result Comment: [12/21/2016] [facility]: [id number] 5Result Comment: [06/10/2015] #3 6Admin Note: per pt 7Admin Note: given in clinic Medications acetaminophen 500 mg oral tablet 2 tablet = 1,000 mg, By Mouth, Every 6 hours, PRN as needed for fever, # 200 tablet, 0 Refills, Maintenance, 12/03/21 10:17:00 EDT, Tablet, [facility], Partial fill upon patient request if the prescription is for a schedule II opi... Start Date: 12/03/21 Status: Ordered Albuterol (Eqv-ProAir HFA) 90 mcg/inh inhalation aerosol 2 puffs, Inhalation, Every 4 hours, PRN NEEDED FOR WHEEZING, # 8.5 Gm, 5 Refills, Maintenance, 03/09/22 11:21:00 EST, [facility], 17, INHALE TWO PUFFS [...] 6 Refills, Maintenance, 11/03/21 8:23:00 EDT, Tablet, [facility], 2 tablet By Mouth 2 times a day, 158, cm, 11/03/21 8:01:00 EDT,Height, 71.5, kg, 09/01/21 16:21:00 EDT, Dry Weight Start Date: 11/03/21 Status: Ordered Carafate 1 gm/10 ml oral suspension 10 mL = 1 Gm, By Mouth, 3 times a day before meals and bedtime, # 1,200 mL, 5 Refills, Maintenance,04/29/22 9:16:00 EST, [facility] #[id number], Partial fill upon patient request if the prescription is for a schedule II opioid drug., 158, cm, 02... Start Date: 04/29/22 Status: Ordered cetirizine 10 mg oral tablet 1 tablet, By Mouth, Daily, # 30 tablet, 5 Refills, Maintenance, 06/03/22 11:40:00 EDT, [facility], 158, cm, 05/25/22 13:59:00 [...] Refills, Maintenance, 05/30/22 7:57:00 EDT, CR Capsule, [facility], Partial fill upon patient request if the prescription is for a schedule II opioid... Start Date: 05/30/22 Status: Ordered Emgality Prefilled Pen 120 mg/mL subcutaneous solution = 120 mg, Subcutaneous Injection, Once, Maintenance Dose, # 3 kit, 2 Refills, Soft Stop, 03/17/22 8:08:00 EST, [facility], requesting 3 month supply for cheaper martinez. with 2 refills, 163, albertina, 03/15/22 10:13:00 EST, Height, 68.1,... Start Date: 03/17/22 Status: Ordered EPINEPHrine 1 mg/mL injectable solution 0.3 mL = 0.3 mg, Intramuscular, Once, # 1 mL, 1 Refills, Soft Stop, 03/08/21 15:07:00 EST, Solution, [facility], Partial fill upon patient request if the prescription is for a schedule II opioid drug., 158, cm, 03/08/21 12:18:00 E... Start Date: 03/08/21 Status: Ordered famotidine 40 mg oral tablet 1 tablet = 40 mg, By Mouth, 2 times a day, # 60 tablet, 6 Refills, Maintenance, 01/31/22 14:05:00 EST, Suspension, [facility], Partial fill upon patient request if the prescription is for a schedule II opioid drug., 163, cm, 01/18... Start Date: 01/31/22 Stop Date: 08/29/22 Status: Ordered Fiber Choice 1.5 g oral tablet, chewable 1 tablet = 1.5 Gm, Chew, 3 times a day, # 90 tablet, 0 Refills, Maintenance, 04/09/22 15:16:00 EST,Chew Tablet, [facility] #[id number], Partial fill upon patient request if the [...] Refills, Maintenance, 04/09/22 15:16:00 EST, REC Powder, [facility] #[id number], Partial fill upon patient request if the prescription is for a schedule II opioid drug., 17 Gm... Start Date: 04/09/22 Status: Ordered montelukast 10 mg oral tablet 1, tablet, By Mouth, Daily in PM, # 90 tablet, Refills 1, Tot. Refills 1, Maintenance, 11/14/21 11:28:00 EDT, Route to Pharmacy Electronically, [facility], 158, cm, 11/03/21 8:01:00 EDT, Height, 71.5, kg, 09/01/21 16:21:00 EDT, . Start Date: 11/14/21 Status: Ordered Nurtec ODT 75 mg oral tablet, disintegrating See Instructions, TAKE ONE TABLET DAILY NEEDED FOR migraines, DO NOT EXCEED ONE TABLET IN 24 HOURS, # 8 tablet, 6 Refills, Maintenance, 12/28/21 15:14:00 EDT, [facility], 163,cm, 12/24/21 8:20:00 EDT, [...] each, 0 Refills, Maintenance, 04/06/22 15:29:00 EST, [facility] #[id number], Partial fi... Start Date: 04/06/22 Status: Ordered Reclast = 5 mg, IV Infusion, Once, 0 Refills, Maintenance, 11/06/20 10:24:00 EDT, administered at [facility] 10/2020 Start Date: 11/06/20 Status: Ordered Stool Softener + Stimulant Laxative 50 mg-8.6 mg oral capsule 1 capsule, By Mouth, Daily in PM, # 60 capsule, 0 Refills, Maintenance, 04/09/22 15:17:00 EST, Capsule, [facility] #[id number], Partial fill upon patient request if the prescription is for a schedule II opioid drug., 1 capsule By Mouth Daily in P... Start Date: 04/09/22 Status: Ordered Symbicort 160mcg/4.5mcg Inhaler 2, puffs, Inhalation, 2 times a day, rinse mouth and throat after use, # 10.2 Gm, Refills 2, Tot. Refills 2, Maintenance, 06/10/22 20:48:00 EDT, Route to Pharmacy Electronically, NCPDP_[id number], [facility], 158, cm, 06/07/22 10:... [...] Active Vitamin D deficiency Confirmed Active 1gyn 55035 3testing negative insulinoma 4likley dumping sydrome 5abnormal GTT ;sugar 36 two hours into test 6normal CT brain 7new 8resolved after weight loss 9chronic perst 105.3 cm,right per ct scan recent;seeing gynecology soon;they will review 11vit d deficiency;correct 144216 13per endocrinology monitor 14correction refer GTT; 2 hour glucose 36 15refer GGT 16seeing ortho;pre op 17asma,ama neg/cerulopalsmain wnl,AAT wnl 18Negative hep A antibody positive hep B surface antibody negative antigen negative hep C, normal ferritin 19ukltrasound Social History Social History Type Response Smoking Status Never smoker entered on: 02/20/13 Sex Patient Care team information Care Team Personnel Name: Caitlyn Mcgee RN Position: [facility] RN Member Role: Primary Care Nurse Name: Sue Barillas NP Position: [facility] Associate Professional Member Role: PCP Address: Address: [address] [place] [address] Name: Andria Guadalupe RN Position: [facility] SN RN Member Role: Primary Care Nurse Name: Liz Martin RN Position: [facility] RN Member Role: Primary Care Nurse Name: Ambreen Mcmahon RN Position: [facility] RN Member Role: Primary Care Nurse Name: Irais Grijalva RN Position: [facility] RN Member Role: Primary Care Nurse Name: Autumn Martinez RN Position: [facility] SN RN Member Role: Primary Care Nurse Name: Liz English RN Position: [facility] RN Member Role: Primary Care Nurse Name: Dora Williamson RN Position: [facility] RN Member Role: Primary Care Nurse Care Team Related Persons Name: KHUSHI CUNNINGHAM Address: home [address] [place] [address] Name: BHUPINDER VENEGAS Address: [address] [place] [address] Name: FELIPE FLORES Address: home [address] [place] [address] Name: ARNAV FLORES Address: home [address] [place] [address] Name: IRINA FLORES Address: home [address] [place] [address] Name: RUSLAN FLORES Address: [address] [place] [address] Name: KAISER PLUNKETT Address: home [address] [place] [address]
--- OUTSIDE RECORDS SUMMARY | 2022-08-17 08:26 | XMS_ITS | Continuity of Care Document ---
Author Name Unknown Organization [facility] Address [address] [place] [address], [address] [place] [address]- Care Team Providers Care Non Morse Intercept Technician Name Role Phone Eran FASTENER SEWING MACHINE OPERATORSue Primary Care Physician Encounter [facility] Date(s): 02/24/20 - 03/25/20 [facility] [address] [place] [address], [address] [place] [address]- Allergies, Adverse Reactions, Alerts Substance Reaction Severity [...] toxoids (Td) 08/03/05 Given 1Result Comment: [12/07/2017] [address]-05 2Result Comment: [12/21/2016] [facility]: [id number] 3Result Comment: [06/10/2015] #3 4Admin Note: per [...] 0 Refills, Maintenance, 07/03/19 13:59:00 EDT, Solution, [facility], 160, cm, 05/29/19 13:36:00 EDT, Height, 56.5, kg, 03... Start Date: 07/03/19 Status: Ordered amitriptyline 25 mg oral tablet 25 mg, 1, tablet, By Mouth, Daily at bedtime, # 30 tablet, Refills 5, Tot. Refills 5, Maintenance, 03/18/20 10:49:00 EST, Route to Pharmacy Electronically, [facility], 160.02, cm, 03/18/20 7:48:00 EST, [...] 60 capsule, 5 Refills, Maintenance, 12/26/19 12:06:00EDT, [facility], 160.02, cm, 12/02/19 6:45:00 EDT, [...] 08/15/19 16:21:00 EDT, Route to Pharmacy Electronically, [facility], 160, cm, 08/15/19 13:45:00 EDT, Height, 56.5, kg, 05/29/19 13:36:00... Start Date: 08/15/19 Status: Ordered ondansetron 4 mg oral tablet, disintegrating 1 tablet = 4 mg, By Mouth, Every 8 hours, PRN as needed for nausea/vomiting, # 9 tablet, 0 Refills,Maintenance, 10/06/19 21:07:00 EDT, DIS Tablet, [facility] Start Date: 10/06/19 Stop Date: 10/09/19 Status: Ordered ProAir HFA 90 mcg/inh inhalation aerosol with adapter 2, puffs, Inhalation, Every 4 hours, PRN, # 8.5 Gm, Refills 2, Tot. Refills 2, Maintenance, 04/29/19 11:32:00 EST, Aerosol, Route to Pharmacy Electronically, [id number], 160, cm, 04/29/19 10:47:00 EST, Height... Start Date: 04/29/19 Status: Ordered Symbicort 160mcg/4.5mcg Inhaler 2, puffs, Inhalation, 2 times a day, use with spacer chamber, # 1 each, Refills 11, Tot. Refills 11, Maintenance, 07/08/19 13:36:00 EDT, Route to Pharmacy Electronically, NCPDP_[id number], [facility], 160, cm, 07/08/19 13:03:00 ED... Start Date: 07/08/19 Status: Ordered Topamax 50 mg oral tablet See Instructions, take 1 tab in am and 2 tab at bedtime. If AM dose causes bad sedation, add to HS dose., # 90 tablet, 6 Refills, Maintenance, 03/12/20 11:09:00 EST, Tablet, [facility], weaning zonegran off by [...] 6 Refills, Soft Stop, 03/12/20 11:04:00 EST, [facility], Partial fill upon patient request if the prescription is for a schedule II opioid drug., 160.02, cm, 03/10/20 8:18:00 EST, H... Start Date: 03/12/20 Stop Date: 10/08/20 Status: Ordered Zofran 4 mg oral tablet 1 tablet = 4 mg, By Mouth, Every 8 hours, PRN Nausea & Vomiting, # 30 tablet, 0 Refills, Maintenance, 09/30/19 11:23:00 EDT, [facility], 160.02, cm, 09/24/19 15:31:00 [...] perst 3folowed by mental health;recent hospitalization 4gyn 04135 6testing negative insulinoma 7likley dumping sydrome 8abnormal GTT ;sugar 36 two hours into test 9sees gi 10normal CT brain 11new 125.3 cm,right per ct scan recent;seeing gynecology soon;they will review 13vit d deficiency;correct [id number] 15per endocrinology monitor 16correction refer GTT; 2 hour glucose 36 17refer GGT 18seeing ortho;pre op 19asma,ama neg/cerulopalsmain wnl,AAT wnl 20Negative hep A antibody positive hep B surface antibody negative antigen negative hep C, normal ferritin 21ukltrasound Social History Social History Type Response Smoking Status Never smoker entered on: 02/20/13 Sex
--- OUTSIDE RECORDS SUMMARY | 2022-08-17 08:26 | XMS_ITS | Continuity of Care Document ---
Author Name Unknown Organization [facility] Address [address] [place] [address]- Care Team Providers Care Pressure Vessel Inspector Name Role Phone Louisa LANDRUM, Taras Fuentes Primary Care Physician [facility]counter [facility] Date(s): 04/28/19 - 05/08/19 [facility] [address] [place] [address]- [facility] Attending Physician: Konrad Curtis Admitting Physician: Konrad [...] toxoids (Td) 08/03/05 Given 1Result Comment: [12/07/2017] [address]-93 2Result Comment: [12/21/2016] [facility]: 05921-605-13 3Result Comment: [06/10/2015] #3 4Admin Note: per pt 5Admin Note: given in clinic Medications amoxicillin 500 mg oral tablet See Instructions, 4 by mouth one hour prior dental work, # 4 tablet, 1 Refills, Maintenance, 04/24/19 10:41:00 EST, [facility], 160, cm, 04/11/19 [...] 11:32:00 EST, Aerosol, Route to Pharmacy Electronically, NCPDP_[id number], [facility], [...] 0 Refills, Maintenance, 04/29/19 11:38:00 EST, Tablet, [facility], 160, cm, 04/29/19 10:47:00 EST, Height, 64.5, kg, 04/06/19 19:26:00 EST, Dry Weight Start Date: 04/29/19 Status: Ordered Zonegran 25 mg oral capsule 2 capsule = 50 mg, By Mouth, 2 times a day, after weaning off topamax start this medication, # 120 capsule, 5 Refills, Maintenance, 04/12/19 12:59:00 EST, Capsule, [facility], 160, cm, 04/11/19 [...] perst 3folowed by mental health;recent hospitalization 4gyn 54356 6testing negative insulinoma 7likley dumping sydrome 8abnormal GTT ;sugar 36 two hours into test 9sees gi 10normal CT brain 11new 125.3 cm,right per ct scan recent;seeing gynecology soon;they will review 13vit d deficiency;correct [id number] 15per endocrinology monitor 16correction refer GTT; 2 hour glucose 36 17refer GGT 18seeing ortho;pre op 19asma,ama neg/cerulopalsmain wnl,AAT wnl 20Negative hep A antibody positive hep B surface antibody negative antigen negative hep C, normal ferritin 21ukltrasound Social History Social History Type Response Smoking Status Never smoker entered on: 02/20/13 Sex
--- OUTSIDE RECORDS SUMMARY | 2022-08-17 08:27 | XMS_ITS | Continuity of Care Document ---
Author Name Unknown Organization [facility] Address [address] [place] [address]- Care Team Providers Care Liquor Grinder Mill Operator Name Role Phone Eran Sue JOHNSON Primary Care Physician [phone] Encounter [facility] Date(s): 05/19/22 - 06/18/22 [facility] [address] [place] [address]- [place] Allergies, Adverse Reactions, Alerts Substance Reaction Severity Status Dust Allergy to pollen Active Incruse Ellipta 1 lightheaded and migraine Active Pollen seasonal allergies respiratory symptoms Active 1dizzy Immunizations Given and Recorded Vaccine Date Status Refusal Reason [id number] 12y+ bivalent booster vax 1 12/24/21 Given [...] vaccine, inactivated 02/08/11 Give n SARS-CoV-2 mRNA ([id number]) vax 05/01/21 Recorded zoster vaccine, inactivated 11/03/20 [...] tetanus-diphtheria toxoids (Td) 08/03/05 Given 1Result Comment: [address]-4 2Result Comment: 45578-807-02 3Result Comment: [12/07/2017] [address]-03 4Result Comment: [12/21/2016] [facility]: 18043-109-93 5Result Comment: [06/10/2015] #3 6Admin Note: per pt 7Admin Note: given in clinic Medications acetaminophen 500 mg oral tablet 2 tablet = 1,000 mg, By Mouth, Every 6 hours, PRN as needed for fever, # 200 tablet, 0 Refills, Maintenance, 12/03/21 10:17:00 EDT, Tablet, [facility], Partial fill upon patient request if the prescription is for a schedule II opi... Start Date: 12/03/21 Status: Ordered Albuterol (Eqv-ProAir HFA) 90 mcg/inh inhalation aerosol 2 puffs, Inhalation, Every 4 hours, PRN NEEDED FOR WHEEZING, # 8.5 Gm, 5 Refills, Maintenance, 03/09/22 11:21:00 EST, [facility], 17, INHALE TWO PUFFS [...] 6 Refills, Maintenance, 11/03/21 8:23:00 EDT, Tablet, [facility], 2 tablet By Mouth 2 times a day, 158, cm, 11/03/21 8:01:00 EDT,Height, 71.5, kg, 09/01/21 16:21:00 EDT, Dry Weight Start Date: 11/03/21 Status: Ordered Carafate 1 gm/10 ml oral suspension 10 mL = 1 Gm, By Mouth, 3 times a day before meals and bedtime, # 1,200 mL, 5 Refills, Maintenance,04/29/22 9:16:00 EST, [id number], Partial fill upon patient request if the prescription is for a schedule II opioid drug., 158, cm, 02... Start Date: 04/29/22 Status: Ordered cetirizine 10 mg oral tablet 1 tablet, By Mouth, Daily, # 30 tablet, 5 Refills, Maintenance, 06/03/22 11:40:00 EDT, [facility], 158, cm, 05/25/22 13:59:00 [...] Refills, Maintenance, 05/30/22 7:57:00 EDT, CR Capsule, [facility], Partial fill upon patient request if the prescription is for a schedule II opioid... Start Date: 05/30/22 Status: Ordered Emgality Prefilled Pen 120 mg/mL subcutaneous solution = 120 mg, Subcutaneous Injection, Once, Maintenance Dose, # 3 kit, 2 Refills, Soft Stop, 03/17/22 8:08:00 EST, [facility], requesting 3 month supply for cheaper martinez. with 2 refills, 163, albertina, 03/15/22 10:13:00 EST, Height, 68.1,... Start Date: 03/17/22 Status: Ordered EPINEPHrine 1 mg/mL injectable solution 0.3 mL = 0.3 mg, Intramuscular, Once, # 1 mL, 1 Refills, Soft Stop, 03/08/21 15:07:00 EST, Solution, [facility], Partial fill upon patient request if the prescription is for a schedule II opioid drug., 158, cm, 03/08/21 12:18:00 E... Start Date: 03/08/21 Status: Ordered famotidine 40 mg oral tablet 1 tablet = 40 mg, By Mouth, 2 times a day, # 60 tablet, 6 Refills, Maintenance, 01/31/22 14:05:00 EST, Suspension, [facility], Partial fill upon patient request if the prescription is for a schedule II opioid drug., 163, cm, 01/18... Start Date: 01/31/22 Stop Date: 08/29/22 Status: Ordered Fiber Choice 1.5 g oral tablet, chewable 1 tablet = 1.5 Gm, Chew, 3 times a day, # 90 tablet, 0 Refills, Maintenance, 04/09/22 15:16:00 EST,Chew Tablet, [facility], [facility]ORE #[id number], Partial fill upon patient request if the [...] Refills, Maintenance, 04/09/22 15:16:00 EST, REC Powder, [facility], [facility]ORE #[id number], Partial fill upon patient request if the prescription is for a schedule II opioid drug., 17 Gm... Start Date: 04/09/22 Status: Ordered montelukast 10 mg oral tablet 1, tablet, By Mouth, Daily in PM, # 90 tablet, Refills 1, Tot. Refills 1, Maintenance, 11/14/21 11:28:00 EDT, Route to Pharmacy Electronically, [facility], 158, cm, 11/03/21 8:01:00 EDT, Height, 71.5, kg, 09/01/21 16:21:00 EDT, . Start Date: 11/14/21 Status: Ordered Nurtec ODT 75 mg oral tablet, disintegrating See Instructions, TAKE ONE TABLET DAILY NEEDED FOR migraines, DO NOT EXCEED ONE TABLET IN 24 HOURS, # 8 tablet, 6 Refills, Maintenance, 12/28/21 15:14:00 EDT, [facility], 163,cm, 12/24/21 8:20:00 EDT, [...] each, 0 Refills, Maintenance, 04/06/22 15:29:00 EST, [facility], [facility]ORE #[id number], Partial fi... Start Date: 04/06/22 Status: Ordered Reclast = 5 mg, IV Infusion, Once, 0 Refills, Maintenance, 11/06/20 10:24:00 EDT, administered at [facility] 10/2020 Start Date: 11/06/20 Status: Ordered Stool Softener + Stimulant Laxative 50 mg-8.6 mg oral capsule 1 capsule, By Mouth, Daily in PM, # 60 capsule, 0 Refills, Maintenance, 04/09/22 15:17:00 EST, Capsule, [facility], [facility]ORE #[id number], Partial fill upon patient request if the prescription is for a schedule II opioid drug., 1 capsule By Mouth Daily in P... Start Date: 04/09/22 Status: Ordered Symbicort 160mcg/4.5mcg Inhaler 2, puffs, Inhalation, 2 times a day, rinse mouth and throat after use, # 10.2 Gm, Refills 2, Tot. Refills 2, Maintenance, 06/10/22 20:48:00 EDT, Route to Pharmacy Electronically, NCPDP_[id number], [facility], 158, cm, 06/07/22 10:... [...] Active Vitamin D deficiency Confirmed Active 1gyn 54213 3testing negative insulinoma 4likley dumping sydrome 5abnormal GTT ;sugar 36 two hours into test 6normal CT brain 7new 8resolved after weight loss 9chronic perst 105.3 cm,right per ct scan recent;seeing gynecology soon;they will review 11vit d deficiency;correct [id number] 13per endocrinology monitor 14correction refer GTT; 2 [...] Care Nurse Name: Sue Barillas NP Position: [facility] PCO Associate Professional Member Role: PCP Address: Address: [address] [place], [place] [address] Name: Andria Guadalupe RN Position: [facility] SN RN Member Role: Primary Care Nurse Name: Liz Martin RN Position: [facility] RN Member Role: Primary Care Nurse Name: Ambreen Mcmahon RN Position: [facility] RN Member Role: Primary Care Nurse Name: Irais Grijalva RN Position: [facility] RN Member Role: Primary Care Nurse Name: Autumn Martinez RN Position: [facility] SN RN Member Role: Primary Care Nurse Name: Liz English RN Position: [facility] RN Member Role: Primary Care Nurse Name: Dora Williamson RN Position: [facility] RN Member Role: Primary Care Nurse Care Team Related Persons Name: KHUSHI CUNNINGHAM Address: [address] [place] [address] Name: BHUPINDER VENEGAS Address: [address] [place] [address] Name: FELIPE FLORES Address: home [address] [place] [address] Name: ARNAV FLORES Address: home [address] [place] [address] Name: IRINA FLORES Address: home [address] [place] [address] Name: RUSLAN FLORES Address: home [address] [place] [address] Name: KAISER PLUNKETT Address: home [address] [place] [address]
--- OUTSIDE RECORDS SUMMARY | 2022-08-17 08:27 | XMS_ITS | Continuity of Care Document ---
Author Name Unknown Organization [facility] Address [address] [place] [address]- Care Team Providers Care Diabetologist Name Role Phone Eran MILITARY TECHNOLOGY SPECIALIST, Sue Dahl Primary Care Physician Encounter [facility] Date(s): 05/06/21 - 06/05/21 [facility] [address] [place] [address]- Allergies, Adverse Reactions, Alerts Substance Reaction Severity Status Dust Allergy to pollen Active Incruse Ellipta 1 lightheaded and migraine Active Pollen seasonal allergies respiratory symptoms Active 1dizzy Immunizations Given and Recorded Vaccine Date Status Refusal Reason SARS-CoV-2 mRNA (rjrlugp-bhzx-qyeuh) vax 05/01/21 Recorded influenza virus vaccine, inactivated [...] toxoids (Td) 08/03/05 Given 1Result Comment: [12/07/2017] [address]-04 2Result Comment: [12/21/2016] [facility]: 35807-410-37 3Result Comment: [06/10/2015] #3 4Admin Note: per [...] 3 Refills, Maintenance, 02/03/21 8:34:00 EST, Tablet, [facility], Partial fill upon patient request if the prescript... Start Date: 02/03/21 Status: Ordered acarbose 50 mg oral tablet 1 tablet = 50 mg, By Mouth, 3 times a day, Take 1 tab (plus 1 25mg tab), 3 times daily with meals.,# 270 tablet, 3 Refills, Maintenance, 02/03/21 8:34:00 EST, Tablet, [facility], Partial fill upon patient request if the prescript... Start Date: 02/03/21 Status: Ordered Baqsimi One Pack 3 mg nasal powder See Instructions, 3 mg Once intrasnasally for severe hypoglycemia, # 2 each, 3 Refills, Soft Stop, 08/28/20 10:36:00 EDT, [facility], Partial fill upon patient request if [...] Refills, Maintenance, 03/03/21 16:42:00 EST, REC Powder, [facility], Partial fill upon patient request if [...] per PCP, # 30 mL, 1 Refills, [facility], 158, cm, 04/09/21 8:13:00 EST, Height, 80.6, kg, 03/08/21 12:18:00 EST, Dry Weight Start Date: 04/30/21 Status: Ordered Dexilant 60 mg oral delayed release capsule 1 capsule = 60 mg, By Mouth, 2 times a day, 30 min before meal, # 60 capsule, 5 Refills, Maintenance, 04/16/21 14:29:00 EST, CR Capsule, [facility], Partial fill upon patient request if the prescription is for a schedule II opioi... Start Date: 04/16/21 Status: Ordered Emgality Prefilled Pen 120 mg/mL subcutaneous solution = 240 mg, Subcutaneous Injection, Once, Loading Dose, # 2 kit, 0 Refills, Soft Stop, 03/16/21 16:05:00 EST, [facility], Partial fill upon patient request if the prescription is for a schedule II opioid drug., 158, cm, 03/11/21 9:1... Start Date: 03/16/21 Status: Ordered EPINEPHrine 1 mg/mL injectable solution 0.3 mL = 0.3 mg, Intramuscular, Once, # 1 mL, 1 Refills, Soft Stop, 03/08/21 15:07:00 EST, Solution, [facility], Partial fill upon patient request if [...] 1 Refills, Soft Stop, 11/20/19 11:59:00 EDT, [facility], 160.02, cm, 11/15/19 10:05:00 EDT, Height, 67, kg, 09/11/19 11:20:00 EDT, Dry Weight Start Date: 11/20/19 Status: Ordered Lidocaine Viscous 2% solution 5 mL = 0.1 Gm, By Mouth, 4 times a day, PRN for epigastric pain, # 200 mL, 1 Refills, Maintenance, 04/06/21 9:45:00 EST, Solution, [facility], Partial fill upon patient request if the prescription is for a schedule II opioid drug.... Start Date: 04/06/21 Status: Ordered loratadine 10 mg oral tablet 10 mg, 1, tablet, By Mouth, Daily, # 90 tablet, Refills 0, Tot. Refills 0, Maintenance, 05/24/21 11:12:00 EDT, Route to Pharmacy Electronically, [facility], 158, cm, 05/14/21 7:52:00 EST, Height, 80.6, kg, 03/08/21 12:18:00 EST, D... Start Date: 05/24/21 Status: Ordered meclizine 25 mg oral tablet See Instructions, PRN for dizziness, Take 1 tablet every 8 hours as needed for dizziness, # 15 tablet, 0 Refills, Maintenance, 11/03/20 7:49:00 EDT, Tablet, [facility], Partial fill upon patient request if the prescription is for... Start Date: 11/03/20 Status: Ordered montelukast 10 mg oral tablet 10 mg, 1, tablet, By Mouth, Daily in PM, # 90 tablet, Refills 1, Tot. Refills 1, Maintenance, 04/23/21 12:32:00 EST, Route to Pharmacy Electronically, [facility], 158, cm, 04/09/21 8:13:00 EST, Height, 80.6, kg, 03/08/21 12:18:00... Start Date: 04/23/21 Status: Ordered Nurtec ODT 75 mg oral tablet, disintegrating 1 tablet = 75 mg, By Mouth, Every 24 hours, PRN as needed for migraine headache, not to exceed 75 mg in 24 hours. no refill in nder 30 days, # 8 tablet, 6 Refills, Maintenance, 12/10/20 12:36:00 EDT,DIS Tablet, [facility], has t... Start Date: 12/10/20 Stop Date: 07/08/21 Status: Ordered [place] 0.65% nasal spray 2 sprays, Nares, Both, 4 times a day, # 1 each, 3 Refills, Maintenance, 05/14/21 11:40:00 EST, [facility], Partial fill upon patient request if the prescription is for a scheduleII opioid drug., 2 sprays Nares, Both 4 times a day... Start Date: 05/14/21 Status: Ordered ProAir HFA 90 mcg/inh inhalation aerosol with adapter 2, puffs, Inhalation, Every 4 hours, PRN, # 8.5 Gm, Refills 1, Tot. Refills 1, Maintenance, 05/13/21 19:25:00 EST, Aerosol, Route to Pharmacy Electronically, NCPDP_[id number], [facility], 158, cm, 05/06/21 6:58:00 EST, Height, 80.... Start Date: 05/13/21 Status: Ordered Reclast = 5 mg, IV Infusion, Once, 0 Refills, Maintenance, 11/06/20 10:24:00 EDT, administered at [facility] 10/2020 Start Date: 11/06/20 Status: [...] Gm, Refills 11, Route to Pharmacy Electronically, NCPDP_[id number], [facility], 158.02, cm, 11/13/20 8:38:00 EDT, Height, [...] 1resolved after weight loss 2chronic perst 3gyn 62359 5testing negative insulinoma 6likley dumping sydrome 7abnormal GTT ;sugar 36 two hours into test 8sees gi 9normal CT brain 10new 115.3 cm,right per ct scan recent;seeing gynecology soon;they will review 12vit d deficiency;correct 539853 14per endocrinology monitor 15correction refer GTT; 2 hour glucose 36 16refer GGT 17seeing ortho;pre op 18asma,ama neg/cerulopalsmain wnl,AAT wnl 19Negative hep A antibody positive hep B surface antibody negative antigen negative hep C, normal ferritin 20ukltrasound Social History Social History Type Response Smoking Status Never smoker entered on: 02/20/13 Sex
--- OUTSIDE RECORDS SUMMARY | 2022-08-17 08:27 | XMS_ITS | Continuity of Care Document ---
Author Name Unknown Organization [facility] Address [address] [place] [address]- Care Team Providers Care First Front Ventilator Name Role Phone Louisa LANDRUM, Taras Fuentes Primary Care Physician [facility]counter [facility] Date(s): 04/21/20 - 05/21/20 [facility] [address] [place] [address]- Allergies, Adverse Reactions, Alerts Substance Reaction Severity [...] toxoids (Td) 08/03/05 Given 1Result Comment: [12/07/2017] [address]-12 2Result Comment: [12/21/2016] [facility]: [id number] 3Result Comment: [06/10/2015] #3 4Admin Note: per [...] 11:32:00 EST, Aerosol, Route to Pharmacy Electronically, NCPDP_[id number], [facility], [...] perst 3folowed by mental health;recent hospitalization 4gyn [address]148 6testing negative insulinoma 7likley dumping sydrome 8abnormal GTT ;sugar 36 two hours into test 9sees gi 10normal CT brain 11new 125.3 cm,right per ct scan recent;seeing gynecology soon;they will review 13vit d deficiency;correct [id number] 15per endocrinology monitor 16correction refer GTT; 2 hour glucose 36 17refer GGT 18seeing ortho;pre op 19asma,ama neg/cerulopalsmain wnl,AAT wnl 20Negative hep A antibody positive hep B surface antibody negative antigen negative hep C, normal ferritin 21ukltrasound Social History Social History Type Response Smoking Status Never smoker entered on: 02/20/13 Sex
--- OUTSIDE RECORDS SUMMARY | 2022-08-17 08:27 | XMS_ITS | Continuity of Care Document ---
Author Name Unknown Organization [facility] Address [address] [place] [address]- Care Team Providers Care Expediter Clerk Name Role Phone Louisa LANDRUM, Taras Fuentes Primary Care Physician Encounter [facility] Date(s): 04/25/19 - 05/02/19 [facility] [address] [place] [address]- [facility] Encounter Diagnosis Pain in neck(Discharge Diagnosis) - 04/25/19 Attending Physician: Lauren Cohen NP Allergies, Adverse Reactions, Alerts Substance Reaction [...] toxoids (Td) 08/03/05 Given 1Result Comment: [12/07/2017] [address]-72 2Result Comment: [12/21/2016] [facility]: [id number] 3Result Comment: [06/10/2015] #3 4Admin Note: per pt 5Admin Note: given in clinic Medications amoxicillin 500 mg oral tablet See Instructions, 4 by mouth one hour prior dental work, # 4 tablet, 1 Refills, Maintenance, 04/24/19 10:41:00 EST, [facility], [...] 11:32:00 EST, Aerosol, Route to Pharmacy Electronically, NCPDP_[id number], [facility], [...] 0 Refills, Maintenance, 04/29/19 11:38:00 EST, Tablet, [facility], 160, cm, 04/29/19 10:47:00 EST, Height, 64.5, kg, 04/06/19 19:26:00 EST, Dry Weight Start Date: 04/29/19 Status: Ordered Zonegran 25 mg oral capsule 2 capsule = 50 mg, By Mouth, 2 times a day, after weaning off topamax start this medication, # 120 capsule, 5 Refills, Maintenance, 04/12/19 12:59:00 EST, Capsule, [facility], [...] perst 3folowed by mental health;recent hospitalization 4gyn [address]65 6testing negative insulinoma 7likley dumping sydrome 8abnormal GTT ;sugar 36 two hours into test 9sees gi 10normal CT brain 11new 125.3 cm,right per ct scan recent;seeing gynecology soon;they will review 13vit d deficiency;correct [id number] 15per endocrinology monitor 16correction refer GTT; 2 hour glucose 36 17refer GGT 18seeing ortho;pre op 19asma,ama neg/cerulopalsmain wnl,AAT wnl 20Negative hep A antibody positive hep B surface antibody negative antigen negative hep C, normal ferritin 21ukltrasound Diagnosis Diagnosis Type Effective Dates Health Status Cl inical Service Informant Pain in neck Discharge Diagnosis 04/25/19 Vital Signs Most recent to oldest [Reference Range]: 1 Height 160 cm (04/25/19 7:56 AM) Weight 61.9 kg (04/25/19 7:56 AM) Oxygen Saturation [94-100 %] 99 % (04/25/19 7:56 AM) Pulse Rate [55-90 bpm] 92 bpm *H* (04/25/19 7:56 AM) Body Mass Index [18.5-24.99] 24.18 (04/25/19 7:56 AM) Blood Pressure [90-138/55-84 mm Hg] 78/4 4mm Hg *L* (04/25/19 7:56 AM) Mode of Delivery (Oxygen) Room air (04/25/19 7:56 AM) Blood pressure sites Arm, left (04/25/19 7:56 AM) Weight Obtained Via Standing scale (04/25/19 7:56 AM) Social History Social History Type Response Smoking Status Never smoker entered on: 02/20/13 Sex
--- OUTSIDE RECORDS SUMMARY | 2022-08-17 08:27 | XMS_ITS | Continuity of Care Document ---
Author Name Unknown Organization [facility] Address [address], [address], [address] [place] [id number]- Care Team Providers Care Manufacturing Quality Manager Name Role Phone Louisa LANDRUM, Taras Fuentes Primary Care Physician [place] [facility] [place] 09[place]/19 [facility] [address], [address], [address] [place] [id number]- [facility] Attending Physician: Not on Staff, Attending MD [...] toxoids (Td) 08/03/05 Given 1Result Comment: [12/07/2017] [address]-27 2Result Comment: [12/21/2016] [facility]: [id number] 3Result Comment: [06/10/2015] #3 4Admin Note: per [...] 0 Refills, Maintenance, 07/03/19 13:59:00 EDT, Solution, [facility], 160, cm, 05/29/19 13:36:00 EDT, Height, 56.5, kg, 03... Start Date: 07/03/19 Status: Ordered albuterol CFC free 90 mcg/inh inhalation aerosol 2, puffs, Inhalation, 4 times a day, PRN, # 25 Gm, Refills 0, Tot. Refills 0, Maintenance, 07/07/2012:36:00 EDT, Aerosol, Route to Pharmacy Electronically, [id number]_[id number], [facility], 160, cm, 07/08/19 13:03:00 EDT, [...] 60 capsule, 5 Refills, Maintenance, 07/30/19 10:21:00EDT, [facility], 160, cm, 07/08/19 13:03:00 EDT, Height, 56.5, kg, 05/29/19 13:36:00 EDT, Dry Weight Start Date: 07/30/19 Status: Ordered eletriptan 40 mg oral tablet 1 tablet = 40 mg, By Mouth, Daily, PRN for migraine headache, # 9 tablet, 5 Refills, Soft Stop, 07/16/19 9:23:00 EDT, Tablet, [facility], she has tried sumatriptan and rizatriptan. if insurance still declines let me know which I c... Start Date: 07/16/19 Stop Date: 01/12/20 Status: Ordered famotidine 20 mg oral tablet 20 mg, 1, tablet, By Mouth, Daily at bedtime, # 30 tablet, Refills 5, Tot. Refills 5, Maintenance, 05/17/19 12:02:00 EDT, Route to Pharmacy Electronically, [facility], 160, cm, 05/16/19 10:27:00 EDT, Height, 62.9, kg, 05/12/19 9:1... Start Date: 05/17/19 Status: Ordered famotidine 40 mg oral tablet 1/2 tablet, By Mouth, Daily at bedtime, famotidine 20mg backordered. please take 1/2 tab daily, # 30 each, 1 Refills, Maintenance, 07/30/19 10:21:00 EDT, [facility], 160, cm, 07/08/19 13:03:00 EDT, [...] 02/25/19 16:55:00 EST, Route to Pharmacy Electronically, [facility], 158, cm, 02/14/19 7:55:00 EST, Height, 61.9, kg, 02/12/19 10:17:00... Start Date: 02/25/19 Status: Ordered montelukast 10 mg oral tablet 10 mg, 1, tablet, By Mouth, Daily in PM, # 90 tablet, Refills 3, Tot. Refills 3, Maintenance, 08/15/19 16:21:00 EDT, Route to Pharmacy Electronically, [facility], 160, cm, 08/15/19 13:45:00 EDT, Height, 56.5, kg, 05/29/19 13:36:00... Start Date: 08/15/19 Status: Ordered ProAir HFA 90 mcg/inh inhalation aerosol with adapter 2, puffs, Inhalation, Every 4 hours, PRN, # 8.5 Gm, Refills 2, Tot. Refills 2, Maintenance, 04/29/19 11:32:00 EST, Aerosol, Route to Pharmacy Electronically, [id number]_[id number], [facility], 160, cm, [...] 07/08/19 13:36:00 EDT, Route to Pharmacy Electronically, NCPDP_[id number], [facility], 160, cm, 07/08/19 13:03:00 ED... Start Date: 07/08/19 Status: Ordered Topamax 50 mg oral tablet 1 tablet = 50 mg, By Mouth, Daily at bedtime, after weaning off zonegran, take 50mg at HS for 2 weeks then increase to 100mg at HS, # 30 tablet, 6 Refills, Maintenance, 07/16/19 10:51:00 EDT, Tablet,[facility], weaning zonegran o... Start Date: 07/16/19 Stop Date: 02/11/20 Status: Ordered Problem List Condition Effective Dates Status Health Status Inform ant Allergic rhinitis(Confirmed) Active Asthma(Confirmed) 1, 2 Active B12 deficiency(Confirmed) Active Bipolar disorder NOS(Confirmed) Active Cervical radiculopathy(Confirmed) Active Chronic sinusitis(Confirmed) Active Depression(Confirmed) 3 Active Multiple environmental aller [...] perst 3folowed by mental health;recent hospitalization 4gyn 25011 6testing negative insulinoma 7likley dumping sydrome 8abnormal GTT ;sugar 36 two hours into test 9sees gi 10normal CT brain 11new 125.3 cm,right per ct scan recent;seeing gynecology soon;they will review 13vit d deficiency;correct 166125 15per endocrinology monitor 16correction refer GTT; 2 hour glucose 36 17refer GGT 18seeing ortho;pre op 19asma,ama neg/cerulopalsmain wnl,AAT wnl 20Negative hep A antibody positive hep B surface antibody negative antigen negative hep C, normal ferritin 21ukltrasound Social History Social History Type Response Smoking Status Never smoker entered on: 02/20/13 Sex
--- OUTSIDE RECORDS SUMMARY | 2022-08-17 08:27 | XMS_ITS | Continuity of Care Document ---
Author Name Unknown Organization [facility] Address Unknown Care Team Providers Care Education Technician Name Role Phone Louisa LANDRUM, Taras Fuentes Primary Care Physician [phone] Encounter [facility] [place] Date(s): 11/12/20 - 12/12/20 [facility] Attending Physician: Konrad Curtis Admitting Physician: Konrad [...] toxoids (Td) 08/03/05 Given 1Result Comment: [12/07/2017] [id number] 2Result Comment: [12/21/2016] [facility]: [id number] 3Result Comment: [06/10/2015] #3 4Admin Note: per pt 5Admin Note: given in clinic Medications acarbose 50 mg oral tablet 1 tablet = 50 mg, By Mouth, 3 times a day, Take 3 times daily with meals. E11.65, # 90 tablet, 5 Refills, Maintenance, 07/13/20 16:29:00 EDT, Tablet, [facility], [...] 5 Refills, Maintenance, 11/06/20 10:28:00 EDT, Tablet, [facility], Replaces loratidine, 158.02, cm, [...] Date: 12/10/20 Stop Date: 07/08/21 Status: Ordered [place] 0.65% nasal spray 2 sprays, Nares, Both, 4 times a day, # 1 each, 0 Refills, Maintenance, 10/30/20 11:34:00 EDT, [facility], Partial [...] 11:32:00 EST, Aerosol, Route to Pharmacy Electronically, NCPDP_[id number], [facility], 160, cm, 04/29/19 10:47:00 EST, Height... Start Date: 04/29/19 Status: Ordered Reclast = 5 mg, IV Infusion, Once, 0 Refills, Maintenance, 11/06/20 10:24:00 EDT, administered at [facility] 10/2020 Start Date: 11/06/20 Status: Ordered Symbicort 160mcg/4.5mcg Inhaler 2, puffs, Inhalation, 2 times a day, with spacer., # 10.2 Gm, Refills 11, Route to Pharmacy Electronically, NCPDP_[id number], [facility], 158.02, cm, [...] 1resolved after weight loss 2chronic perst 3gyn 01872 5testing negative insulinoma 6likley dumping sydrome 7abnormal GTT ;sugar 36 two hours into test 8sees gi 9normal CT brain 10new 115.3 cm,right per ct scan recent;seeing gynecology soon;they will review 12vit d deficiency;correct [id number] 14per endocrinology monitor 15correction refer GTT; 2 hour glucose 36 16refer GGT 17seeing ortho;pre op 18asma,ama neg/cerulopalsmain wnl,AAT wnl 19Negative hep A antibody positive hep B surface antibody negative antigen negative hep C, normal ferritin 20ukltrasound Social History Social History Type Response Smoking Status Never smoker entered on: 02/20/13 Sex
--- OUTSIDE RECORDS SUMMARY | 2022-08-17 08:27 | XMS_ITS | Continuity of Care Document ---
Author Name Unknown Organization [facility] Nikita Oswaldo Address [address] [place] [address]- Care Team Providers Care Music Copyist Name Role Phone Louisa LANDRUM, Taras Fuentes Primary Care Physician Encounter [facility] [place] Date(s): 04/11/19 - 04/18/19 [facility] [address] [place] [address]- [facility] Encounter Diagnosis Influenza A(Discharge Diagnosis) - 04/11/19 Attending Physician: Not on Staff, Attending MD [...] toxoids (Td) 08/03/05 Given 1Result Comment: [12/07/2017] [id number] 2Result Comment: [12/21/2016] [facility]: 02303-281-07 3Result Comment: [06/10/2015] #3 4Admin Note: per [...] 02/25/19 16:55:00 EST, Route to Pharmacy Electronically, [facility], 158, cm, 02/14/19 7:55:00 EST, Height, 61.9, kg, 02/12/19 10:17:00... Start Date: 02/25/19 Status: Ordered SEROquel 200 mg oral tablet [...] 02/14/19 Stop Date: 08/13/19 Status: Ordered tiZANidine 2 mg oral tablet [...] Date: 06/05/18 Stop Date: 06/19/18 Status: Ordered Zoloft 50 mg oral tablet 1 tablet = 50 mg, By Mouth, Daily, 0 Refills, Maintenance, 01/24/19 9:17:50 EST Start Date: 01/24/19 Status: Ordered Zonegran 25 mg oral capsule 2 capsule = 50 mg, By Mouth, 2 times a day, after weaning off topamax start this medication, # 120 capsule, 5 Refills, Maintenance, 04/12/19 12:59:00 EST, Capsule, [facility], 160, cm, 04/11/19 12:38:00 [...] perst 3folowed by mental health;recent hospitalization 4gyn 85152 6testing negative insulinoma 7likley dumping sydrome 8abnormal GTT ;sugar 36 two hours into test 9sees gi 10normal CT brain 11new 125.3 cm,right per ct scan recent;seeing gynecology soon;they will review 13vit d deficiency;correct 186803 15per endocrinology monitor 16correction refer GTT; 2 hour glucose 36 17refer GGT 18seeing ortho;pre op 19asma,ama neg/cerulopalsmain wnl,AAT wnl 20Negative hep A antibody positive hep B surface antibody negative antigen negative hep C, normal ferritin 21ukltrasound Diagnosis Diagnosis Type Effective Dates Health Status Clini asha Service Informant Influenza A Discharge Diagnosis 04/11/19 Vital Signs Most recent to oldest [Reference Range]: 1 Height 160 cm (04/11/19 12:38 PM) Weight 60.8 kg (04/11/19 12:38 PM) Oxygen Saturation [94-100 %] 95 % (04/11/19 12:38 PM) Pulse Rate [55-90 bpm] 88 bpm (04/11/19 12:38 PM) Body Mass Index [18.5-24.99] 23.75 (04/11/19 12:38 PM) Blood Pressure [90-138/55-84 mm Hg] 98/6 0mm Hg (04/11/19 12:38 PM) Temperature [96.8-100.4 DegF] 97.8 DegF (2/6/20 12:38 PM) Mode of Delivery (Oxygen) Room air (04/11/19 12:38 PM) Blood pressure sites Arm, right (04/11/19 12:38 PM) Temperature Route Oral (04/11/19 12:38 PM) Weight Obtained Via Standing scale (04/11/19 12:38 PM) Social History Social History Type Response Smoking Status Never smoker entered on: 02/20/13 Sex
--- OUTSIDE RECORDS SUMMARY | 2022-08-17 08:27 | XMS_ITS | Continuity of Care Document ---
Author Name Unknown Organization [facility] Oswaldo lt Address [address] [place] [address]- Care Team Providers Care Research Microbiologist Name Role Phone Louisa LANDRUM, Taras Fuentes Primary Care Physician [phone] Encounter [facility] [place] Date(s): 08/27/20 - 09/03/20 [facility] [address] [place] [address]- Encounter Diagnosis Spondylosis of lumbar spine MRI 2018 sx 2018(Discharge Diagnosis) - 08/30/20 Attending Physician: Not on Staff, Attending MD [...] 3 06/10/15 Given hepatitis B adult vaccine 6/8/15 Given hepatitis B adult vaccine 07/09/14 Given pneumococcal 23-valent vaccine 08/19/13 Given tetanus/diphtheria/pertussis, acel(Tdap) 11/28/11 Given FluLaval (oldterm) 11/28/11 Given Influenza Virus Vaccine (oldterm) 4 03/24/09 Given Influenza Virus Vaccine (oldterm) 01/04/07 Given Influenza Inactive (IM) (oldterm) 5 12/25/07 Given tetanus-diphtheria toxoids (Td) 08/03/05 Given 1Result Comment: [12/07/2017] [address]-07 2Result Comment: [12/21/2016] [facility]: [id number] 3Result Comment: [06/10/2015] #3 4Admin Note: per pt 5Admin Note: given in clinic Medications acarbose 50 mg oral tablet 1 tablet = 50 mg, By Mouth, 3 times a day, Take 3 times daily with meals. E11.65, # 90 tablet, 5 Refills, Maintenance, 07/13/20 16:29:00 EDT, Tablet, [facility], Partial fill upon patient request [...] 0 Refills, Maintenance, 07/03/19 13:59:00 EDT, Solution, [facility], 160, cm, 05/29/19 13:36:00 EDT, Height, 56.5, kg, 03... Start Date: 07/03/19 Status: Ordered amitriptyline 50 mg oral tablet 1 tablet = 50 mg, By Mouth, Daily at bedtime, # 30 tablet, 5 Refills, Maintenance, 07/22/20 8:03:00EDT, [facility], Partial fill upon patient request if the prescription is for a schedule II opioid drug., 158.02, cm, 07/06/20 6:4... Start Date: 07/22/20 Status: Ordered Baqsimi One Pack 3 mg nasal powder See Instructions, 3 mg Once intrasnasally for severe hypoglycemia, # 2 each, 3 Refills, Soft Stop, 08/28/20 10:36:00 EDT, [facility], Partial fill upon patient request [...] 1 Refills, Soft Stop, 11/20/19 11:59:00 EDT, [facility], 160.02, cm, 11/15/19 10:05:00 EDT, [...] 02/25/19 16:55:00 EST, Route to Pharmacy Electronically, [facility], 158, cm, 02/14/19 7:55:00 EST, Height, 61.9, kg, 02/12/19 10:17:00... Start Date: 02/25/19 Status: Ordered montelukast 10 mg oral tablet 10 mg, 1, tablet, By Mouth, Daily in PM, # 90 tablet, Refills 3, Tot. Refills 3, Maintenance, 08/15/19 16:21:00 EDT, Route to Pharmacy Electronically, [facility], 160, cm, 08/15/19 13:45:00 EDT, [...] 0 Refills, Maintenance, 08/27/20 9:45:00 EDT, Capsule, [facility], Partial fill upon patient request if the prescription is for a schedule II opioid drug., 158.02, cm, 08/27/20 9:2... Start Date: 08/27/20 Stop Date: 09/26/20 Status: Ordered ProAir HFA 90 mcg/inh inhalation aerosol with adapter 2, puffs, Inhalation, Every 4 hours, PRN, # 8.5 Gm, Refills 2, Tot. Refills 2, Maintenance, 04/29/19 11:32:00 EST, Aerosol, Route to Pharmacy Electronically, NCPDP_[id number], [facility], 160, cm, 04/29/19 10:47:00 EST, Height... Start Date: 04/29/19 Status: Ordered Symbicort 160mcg/4.5mcg Inhaler 2, puffs, Inhalation, 2 times a day, Refills 0, Maintenance, 08/27/20 9:43:00 EDT, Aerosol Start Date: 08/27/20 Status: Ordered Topamax 50 mg oral tablet 2 tablet = 100 mg, By Mouth, Daily at bedtime, # 60 tablet, 6 Refills, Maintenance, 08/04/20 11:44:00 EDT, Tablet, [facility], 158.02, cm, 07/06/20 6:49:00 EDT, [...] 6 Refills, Soft Stop, 08/04/20 11:37:00 EDT, [facility], Partial fill upon patient request [...] 1resolved after weight loss 2chronic perst 3gyn 33866 5testing negative insulinoma 6likley dumping sydrome 7abnormal GTT ;sugar 36 two hours into test 8sees gi 9normal CT brain 10new 115.3 cm,right per ct scan recent;seeing gynecology soon;they will review 12vit d deficiency;correct [id number] 14per endocrinology monitor 15correction refer GTT; 2 hour glucose 36 16refer GGT 17seeing ortho;pre op 18asma,ama neg/cerulopalsmain wnl,AAT wnl 19Negative hep A antibody positive hep B surface antibody negative antigen negative hep C, normal ferritin 20ukltrasound Diagnosis Diagnosis Type Effective Dates Health Status Clinical Service Informant Spondylosis of lumbar spine MRI 2017 sx 2019 June Discharge Diagnosis 08/30/20 Vital Signs Most recent to oldest [Reference Range]: 1 Height 158.02 cm (08/27/20 9:27 AM) Weight 83.4 kg (08/27/20 9:27 AM) Oxygen Saturation [94-100 %] 98 % (08/27/20 9:27 AM) Pulse Rate [55-90 bpm] 90 bpm (08/27/20 9:27 AM) Body Mass Index [18.5-24.99] 33.4 *>HHI* (08/27/20 9:27 AM) Blood Pressure [90-138/55-84 mm Hg] 116/ 62mm Hg (08/27/20 9:27 AM) Respiratory Rate [16-30 br/min] 18 br/mi n (08/27/20 9:27 AM) Temperature [96.8-100.4 DegF] 98.4 DegF (08/27/20 9:27 AM) Mode of Delivery (Oxygen) Room air (08/27/20 9:27 AM) Blood pressure sites Arm, right (08/27/20 9:27 AM) Temperature Route Oral (08/27/20 9:27 AM) Weight Obtained Via Standing scale (08/27/20 9:27 AM) Social History Social History Type Response Smoking Status Never smoker entered on: 02/20/13 Sex
--- OUTSIDE RECORDS SUMMARY | 2022-08-17 08:27 | XMS_ITS | Continuity of Care Document ---
Author Name Unknown Organization [facility] Address Unknown Care Team Providers Care Board Attendant Name Role Phone Louisa LANDRUM, Taras Fuentes Primary Care Physician [phone] Encounter [facility] Date(s): 03/17/21 - 04/16/21 [facility] Allergies, Adverse Reactions, Alerts Substance Reaction [...] toxoids (Td) 08/03/05 Given 1Result Comment: [12/07/2017] [id number] 2Result Comment: [12/21/2016] [facility]: [id number] 3Result Comment: [06/10/2015] #3 4Admin Note: per [...] 3 Refills, Maintenance, 02/03/21 8:34:00 EST, Tablet, [facility], Partial fill upon patient request if the prescript... Start Date: 02/03/21 Status: Ordered acarbose 50 mg oral tablet 1 tablet = 50 mg, By Mouth, 3 times a day, Take 1 tab (plus 1 25mg tab), 3 times daily with meals.,# 270 tablet, 3 Refills, Maintenance, 02/03/21 8:34:00 EST, Tablet, [facility], Partial fill upon patient request if the prescript... Start Date: 02/03/21 Status: Ordered Baqsimi One Pack 3 mg nasal powder See Instructions, 3 mg Once intrasnasally for severe hypoglycemia, # 2 each, 3 Refills, Soft Stop, 08/28/20 10:36:00 EDT, [facility], Partial fill upon patient request if [...] 5 Refills, Maintenance, 11/06/20 10:28:00 EDT, Tablet, [facility], Replaces loratidine, 158.02, cm, 11/06/20 10:04:00 EDT, Height,67, kg, 09/11/19 11:20:00 EDT, Dry Weight Start Date: 11/06/20 Status: Ordered cholestyramine 4 gm/5 gm oral powder for reconstitution 1 pack/packet, By Mouth, Daily, # 30 pack/packet, 5 Refills, Maintenance, 03/03/21 16:42:00 EST, REC Powder, [facility], Partial fill upon patient request if [...] Refills, Maintenance, 04/16/21 14:29:00 EST, CR Capsule, [facility], Partial fill upon patient request if the prescription is for a schedule II opioi... Start Date: 04/16/21 Status: Ordered Emgality Prefilled Pen 120 mg/mL subcutaneous solution = 240 mg, Subcutaneous Injection, Once, Loading Dose, # 2 kit, 0 Refills, Soft Stop, 03/16/21 16:05:00 EST, [facility], Partial fill upon patient request if the prescription is for a schedule II opioid drug., 158, cm, 03/11/21 9:1... Start Date: 03/16/21 Status: Ordered Emgality Prefilled Pen 120 mg/mL subcutaneous solution = 120 mg, Subcutaneous Injection, Once, Maintenance Dose, # 1 kit, 5 Refills, Soft Stop, 03/16/21 16:05:00 EST, [facility], Partial fill upon patient request if the prescription is for a schedule II opioid drug., 158, cm, 03/11/21... Start Date: 03/16/21 Status: Ordered EPINEPHrine 1 mg/mL injectable solution 0.3 mL = 0.3 mg, Intramuscular, Once, # 1 mL, 1 Refills, Soft Stop, 03/08/21 15:07:00 EST, Solution, [facility], Partial fill upon patient request if [...] 1 Refills, Soft Stop, 11/20/19 11:59:00 EDT, [facility], 160.02, cm, 11/15/19 10:05:00 EDT, Height, 67, kg, 09/11/19 11:20:00 EDT, Dry Weight Start Date: 11/20/19 Status: Ordered Lidocaine Viscous 2% solution 5 mL = 0.1 Gm, By Mouth, 4 times a day, PRN for epigastric pain, # 200 mL, 1 Refills, Maintenance, 04/06/21 9:45:00 EST, Solution, [facility], Partial fill upon patient request if the prescription is for a schedule II opioid drug.... Start Date: 04/06/21 Status: Ordered meclizine 25 mg oral tablet See Instructions, PRN for dizziness, Take 1 tablet every 8 hours as needed for dizziness, # 15 tablet, 0 Refills, Maintenance, 11/03/20 7:49:00 EDT, Tablet, [facility], Partial fill upon patient request if the prescription is for... Start Date: 11/03/20 Status: Ordered montelukast 10 mg oral tablet 10 mg, 1, tablet, By Mouth, Daily in PM, # 90 tablet, Refills 3, Tot. Refills 3, Maintenance, 08/15/19 16:21:00 EDT, Route to Pharmacy Electronically, [facility], 160, cm, 08/15/19 13:45:00 EDT, Height, 56.5, kg, 05/29/19 13:36:00... Start Date: 08/15/19 Status: Ordered Nurtec ODT 75 mg oral tablet, disintegrating 1 tablet = 75 mg, By Mouth, Every 24 hours, PRN as needed for migraine headache, not to exceed 75 mg in 24 hours. no refill in nder 30 days, # 8 tablet, 6 Refills, Maintenance, 12/10/20 12:36:00 EDT,DIS Tablet, [facility], has t... Start Date: 12/10/20 Stop Date: 07/08/21 Status: Ordered [place] 0.65% nasal spray 2 sprays, Nares, Both, 4 times a day, # 1 each, 0 Refills, Maintenance, 10/30/20 11:34:00 EDT, [facility], Partial fill upon patient request if the prescription is for a scheduleII opioid drug., 2 sprays Nares, Both 4 times a day... Start Date: 10/30/20 Status: Ordered ProAir HFA 90 mcg/inh inhalation aerosol with adapter 2, puffs, Inhalation, Every 4 hours, PRN, # 8.5 Gm, Refills 1, Tot. Refills 1, Maintenance, 01/06/21 8:26:00 EDT, Aerosol, Route to Pharmacy Electronically, NCPDP_[id number], [facility], 158.02, cm, 01/06/21 8:03:00 EDT, Height, 6... Start Date: 01/06/21 Status: Ordered Readi-Cat 2 oral suspension See Instructions, Follow direction for CT, # 2 each, 0 Refills, Maintenance, 04/08/21 16:08:00 EST,[facility], Partial fill upon patient request [...] Gm, Refills 11, Route to Pharmacy Electronically, NCPDP_[id number], [facility], 158.02, cm, 11/13/20 8:38:00 EDT, Height, [...] mL, 1 Refills, Maintenance, 01/06/21 13:36:00 EDT, [facility], Partialfill upon patient request if the [...] 1resolved after weight loss 2chronic perst 3gyn 15495 5testing negative insulinoma 6likley dumping sydrome 7abnormal GTT ;sugar 36 two hours into test 8sees gi 9normal CT brain 10new 115.3 cm,right per ct scan recent;seeing gynecology soon;they will review 12vit d deficiency;correct [id number] 14per endocrinology monitor 15correction refer GTT; 2 hour glucose 36 16refer GGT 17seeing ortho;pre op 18asma,ama neg/cerulopalsmain wnl,AAT wnl 19Negative hep A antibody positive hep B surface antibody negative antigen negative hep C, normal ferritin 20ukltrasound Social History Social History Type Response Smoking Status Never smoker entered on: 02/20/13 Sex
--- OUTSIDE RECORDS SUMMARY | 2022-08-17 08:27 | XMS_ITS | Continuity of Care Document ---
Author Name Unknown Organization [facility] Address [address] [place] [address]- Care Team Providers Care Desktop Publisher Name Role Phone Louisa LANDRUM, Taras Fuentes Primary Care Physician [facility] - 01[facility] [address] [place] [address]- Encounter Diagnosis Asthma(Discharge Diagnosis) - 01/06/21 Bipolar disorder NOS(Discharge Diagnosis) - 01/06/21 Esophageal reflux (GERD) egd 2018(Discharge Diagnosis) - 01/06/21 Obesity(Discharge Diagnosis) - 01/06/21 Osteoporosis(Discharge Diagnosis) - 01/06/21 Migraines(Discharge Diagnosis) - 01/06/21 B12 deficiency(Discharge Diagnosis) - 01/06/21 Fatty liver(Discharge Diagnosis) - 01/06/21 Vitamin D deficiency(Discharge Diagnosis) - 01/06/21 Attending Physician: Sue Barillas NP Referring Physician: Taras Jasso MD Allergies, Adverse [...] n influenza virus vaccine, inactivated 01/22/15 Jose Carols rded influenza virus vaccine, inactivated 12/13/13 Give [...] toxoids (Td) 08/03/05 Given 1Result Comment: [12/07/2017] [id number] 2Result Comment: [12/21/2016] [facility]: [id number] 3Result Comment: [06/10/2015] #3 4Admin Note: per [...] MDI, 07/08/19 13:37:00 EDT, Supply, 160, cm, 05/04/20 13:03:00 EDT, Height, 56.5, kg, 05/29/19 13:36:00 [...] 3 Refills, Soft Stop, 08/28/20 10:36:00 EDT, [facility], Partial fill upon [...] 5 Refills, Maintenance, 11/06/20 10:28:00 EDT, Tablet, [facility], Replaces loratidine, 158.02, cm, 11/06/20 [...] 0 Refills, Maintenance, 11/03/20 7:49:00 EDT, Tablet, [facility], Partial [...] 6 Refills, Maintenance, 12/10/20 12:36:00 EDT,DIS Tablet, [facility], has t... Start Date: 12/10/20 Stop Date: 07/08/21 Status: Ordered Jones 0.65% nasal spray 2 sprays, Nares, Both, 4 times a day, # 1 each, 0 Refills, Maintenance, 10/30/20 11:34:00 EDT, [facility], Partial fill upon patient request if the prescription is for a scheduleII opioid drug., 2 sprays Nares, Both 4 times a day... Start Date: 10/30/20 Status: Ordered ProAir HFA 90 mcg/inh inhalation aerosol with adapter 2, puffs, Inhalation, Every 4 hours, PRN, # 8.5 Gm, Refills 1, Tot. Refills 1, Maintenance, 01/06/21 8:26:00 EDT, Aerosol, Route to Pharmacy Electronically, [id number]_[id number], [facility], 158.02, cm, 01/06/21 8:03:00 EDT, [...] Gm, Refills 11, Route to Pharmacy Electronically, [id number]_[id number], [facility], 158.02, cm, 11/13/20 8:38:00 EDT, Height, 67, kg, 09/11/19 11:20:00 EDT, Dry Weight Start Date: 11/20/20 Status: Ordered Vitamin B-12 1000 mcg/mL injectable solution See Instructions, 1,000 mcg Subcutaneous Every 7 days x 8 weeks then once a month there after per PCP, # 30 mL, 1 Refills, Maintenance, 01/06/21 13:36:00 EDT, [facility], Partialfill upon patient request if [...] 1resolved after weight loss 2chronic perst 3gyn 25078 5testing negative insulinoma 6likley dumping sydrome 7abnormal GTT ;sugar 36 two hours into test 8sees gi 9normal CT brain 10new 115.3 cm,right per ct scan recent;seeing gynecology soon;they will review 12vit d deficiency;correct 885903 14per endocrinology monitor 15correction refer GTT; 2 hour glucose 36 16refer GGT 17seeing ortho;pre op 18asma,ama neg/cerulopalsmain wnl,AAT wnl 19Negative hep A antibody positive hep B surface antibody negative antigen negative hep C, normal ferritin 20ukltrasound Diagnosis Diagnosis Type Effective Dates Health Status Clinical Service Informant Asthma Discharge Diagnosis 01/06/21 Bipolar disorder NOS Discharge Diagnosis 01/06/21 Esophageal reflux (GERD) egd 2017 Discharge Diagnosis 01/06/21 Obesity Discharge Diagnosis 01/06/21 Osteoporosis Discharge Diagnosis 01/06/21 Migraines Discharge Diagnosis 01/06/21 Vitamin D deficiency Discharge Diagnosis 01/06/21 Fatty liver Discharge Diagnosis 01/06/21 B12 deficiency Discharge Diagnosis 01/06/21 Vital Signs Most recent to oldest [Reference Range]: 1 Height 158.02 cm (01/06/21 8:03 AM) Weight 77.9 kg (01/06/21 8:03 AM) Oxygen Saturation [94-100 %] 98 % (01/06/21 8:03 AM) Pulse Rate [55-90 bpm] 76 bpm (01/06/21 8:03 AM) Body Mass Index [18.5-24.99] 31.2 *>HHI* (01/06/21 8:03 AM) Blood Pressure [90-138/55-84 mm Hg] 126/ 76mm Hg (01/06/21 8:03 AM) Respiratory Rate [16-30 br/min] 16 br/mi n (01/06/21 8:03 AM) Temperature [96.8-100.4 DegF] 98.2 DegF (01/06/21 8:03 AM) Mode of Delivery (Oxygen) Room air (01/06/21 8:03 AM) Blood pressure sites Arm, right (01/06/21 8:03 AM) Temperature Route Oral (01/06/21 8:03 AM) Weight Obtained Via Standing scale (01/06/21 8:03 AM) Social History Social History Type Response Smoking Status Never smoker entered on: 02/20/13 Sex
--- OUTSIDE RECORDS SUMMARY | 2022-08-17 08:27 | XMS_ITS | Continuity of Care Document ---
Author Name Unknown Organization [facility] Address [address] [place] [address]- Care Team Providers Care Informatics Specialist Name Role Phone Eran COOK JELLY, Sue Dahl Primary Care Physician [facility] Date[facility]): 07[facility]21 - 11/03/21 [facility] [address] [place] [address]- Attending Physician: Johnathan Lewis MD Admitting Physician: Johnathan Lewis MD Referring Physician: Louisa LANDRUM, Taras Fuentes Allergies, Adverse Reactions, Alerts Substance Reaction Severity Status Dust Allergy to pollen Active Incruse Ellipta 1 lightheaded and migraine Active Pollen seasonal allergies respiratory symptoms Active 1dizzy Immunizations Given and Recorded Vaccine Date Status Refusal Reason SARS-CoV-2 mRNA (onbdbgj-ffbp-nnuoe) vax 05/01/21 Recorded influenza virus vaccine, inactivated [...] toxoids (Td) 08/03/05 Given 1Result Comment: [12/07/2017] [address]-14 2Result Comment: [12/21/2016] [facility]: [id number] 3Result Comment: [06/10/2015] #3 4Admin Note: per pt 5Admin Note: given in clinic Medications acarbose 25 mg oral tablet See Instructions, 1 tablet with 50 mg (total 75 mg) By Mouth before lunch, # 30 each, 11 Refills, Maintenance, 11/03/21 8:24:00 EDT, Tablet, [facility], 158, cm, 11/03/21 8:01:00EDT, Height, 71.5, kg, 09/01/21 16:21:00 EDT, Dry W... Start Date: 11/03/21 Status: Ordered acarbose 50 mg oral tablet See Instructions, 1 tablet with 25 mg (total 75 mg) By Mouth before lunch, # 30 each, 11 Refills, Maintenance, 11/03/21 8:23:00 EDT, Tablet, [facility], Partial fill upon patientrequest if the prescription is for a schedule II op... Start Date: 11/03/21 Status: Ordered calcium (as citrate)-vitamin D 315 mg-250 intl units oral tablet 2 tablet, By Mouth, 2 times a day, # 120 tablet, 6 Refills, Maintenance, 11/03/21 8:23:00 EDT, Tablet, [facility], 2 tablet By Mouth [...] constipation, 08/23/21 8:22:00 EDT, Route to Pharmacy Electronically,[facility], Partial fill upon patient... Start Date: 08/23/21 Status: Ordered Dexilant 60 mg oral delayed release capsule 1 capsule = 60 mg, By Mouth, 2 times a day, 30 min before meal, # 60 capsule, 5 Refills, Maintenance, 04/16/21 14:29:00 EST, CR Capsule, [facility], Partial fill upon patient request if the prescription is for a schedule II opioi... Start Date: 04/16/21 Status: Ordered Emgality Prefilled Pen 120 mg/mL subcutaneous solution = 120 mg, Subcutaneous Injection, Once, Maintenance Dose, # 1 kit, 6 Refills, Soft Stop, 06/29/21 10:09:00 EDT, [facility], Partial fill upon patient request if the prescription is for a schedule II opioid drug., 158, cm, 06/29/21... Start Date: 06/29/21 Status: Ordered EPINEPHrine 1 mg/mL injectable solution 0.3 mL = 0.3 mg, Intramuscular, Once, # 1 mL, 1 Refills, Soft Stop, 03/08/21 15:07:00 EST, Solution, [facility], Partial fill [...] 09/17/21 14:13:00 EDT, Route to Pharmacy Electronically, [facility], 158, cm, 09/16/21 9:43:00 EDT, Height, 71.5, kg, 09/01/21 16:21:00 EDT, D... Start Date: 09/17/21 Status: Ordered meclizine 25 mg oral tablet See Instructions, PRN for dizziness, Take 1 tablet every 8 hours as needed for dizziness, # 15 tablet, 0 Refills, Maintenance, 11/03/20 7:49:00 EDT, Tablet, [facility], Partial fill upon patient request if the prescription is for... Start Date: 11/03/20 Status: Ordered montelukast 10 mg oral tablet 10 mg, 1, tablet, By Mouth, Daily in PM, # 90 tablet, Refills 1, Tot. Refills 1, Maintenance, 04/23/21 12:32:00 EST, Route to Pharmacy Electronically, [facility], 158, cm, 04/09/21 8:13:00 [...] 6 Refills, Maintenance, 12/10/20 12:36:00 EDT,DIS Tablet, [facility], has t... Start Date: 12/10/20 Stop Date: 07/08/21 Status: Ordered Reclast = 5 mg, IV Infusion, Once, 0 Refills, Maintenance, 11/06/20 10:24:00 EDT, administered at [facility] 10/2020 Start Date: 11/06/20 Status: [...] 1resolved after weight loss 2chronic perst 3gyn 58523 5testing negative insulinoma 6likley dumping sydrome 7abnormal GTT ;sugar 36 two hours into test 8sees gi 9normal CT brain 10new 115.3 cm,right per ct scan recent;seeing gynecology soon;they will review 12vit d deficiency;correct 718458 14per endocrinology monitor 15correction refer GTT; 2 hour glucose 36 16refer GGT 17seeing ortho;pre op 18asma,ama neg/cerulopalsmain wnl,AAT wnl 19Negative hep A antibody positive hep B surface antibody negative antigen negative hep C, normal ferritin 20ukltrasound Social History Social History Type Response Smoking Status Never smoker entered on: 02/20/13 Sex Care Team Personnel Name: Sue Barillas NP Address: [address] [place] [address] [place] [address]-
--- OUTSIDE RECORDS SUMMARY | 2022-08-17 08:27 | XMS_ITS | Continuity of Care Document ---
Author Name Unknown Organization [facility] Address [address] [place] [address]- Care Team Providers Care Laminator Preforms Name Role Phone Louisa LANDRUM, Taras Fuentes Primary Care Physician [facility]): 06[facility]19[facility]20 - 07/19/20 [facility] [address] [place] [address] Allergies, Adverse [...] toxoids (Td) 08/03/05 Given 1Result Comment: [12/07/2017] [address]-94 2Result Comment: [12/21/2016] [facility]: [id number] 3Result Comment: [06/10/2015] #3 4Admin Note: per pt 5Admin Note: given in clinic Medications acarbose 25 mg oral tablet 1 tablet = 25 mg, By Mouth, 3 times a day, Take 1 tablet 3 times daily with meals. Add to 50mg dosefor total of 75mg 3 times daily. E11.65, # 270 tablet, 3 Refills, Maintenance, 07/15/20 12:23:00 EDT, Tablet, [facility], Partial... Start Date: 07/15/20 Status: Ordered acarbose 50 mg oral tablet 1 tablet = 50 mg, By Mouth, 3 times a day, Take 3 times daily with meals. E11.65, # 90 tablet, 5 Refills, Maintenance, 07/13/20 16:29:00 EDT, Tablet, [facility], Partial fill upon patient request if [...] 0 Refills, Maintenance, 07/03/19 13:59:00 EDT, Solution, [facility], 160, cm, 05/29/19 13:36:00 EDT, Height, [...] 60 capsule, 5 Refills, Maintenance, 05/07/20 15:54:00EST, [facility], 160.02, cm, 05/01/20 9:18:00 EST, Height, [...] 1 Refills, Soft Stop, 11/20/19 11:59:00 EDT, [facility], 160.02, cm, 11/15/19 10:05:00 EDT, Height, [...] 08/15/19 16:21:00 EDT, Route to Pharmacy Electronically, [facility], 160, cm, 08/15/19 13:45:00 EDT, Height, 56.5, kg, 05/29/19 13:36:00... Start Date: 08/15/19 Status: Ordered ProAir HFA 90 mcg/inh inhalation aerosol with adapter 2, puffs, Inhalation, Every 4 hours, PRN, # 8.5 Gm, Refills 2, Tot. Refills 2, Maintenance, 04/29/19 11:32:00 EST, Aerosol, Route to Pharmacy Electronically, NCPDP_[id number], [facility], 160, cm, 04/29/19 10:47:00 EST, Height... Start Date: 04/29/19 Status: Ordered rifAXIMin 550 mg oral tablet 1 tablet = 550 mg, By Mouth, 3 times a day, # 42 tablet, 0 Refills, Maintenance, 07/14/20 13:37:00 EDT, Tablet, [facility], Partial fill upon patient request if [...] 6 Refills, Maintenance, 03/12/20 11:09:00 EST, Tablet, [facility], weaning zonegran off by 25mg every [...] 6 Refills, Soft Stop, 03/12/20 11:04:00 EST, [facility], Partial fill upon patient request if [...] 0 Refills, Maintenance, 06/13/20 14:10:00 EDT, Capsule, [facility],... Start Date: 06/13/20 Status: Ordered Problem [...] 1resolved after weight loss 2chronic perst 3gyn 63980 5testing negative insulinoma 6likley dumping sydrome 7abnormal GTT ;sugar 36 two hours into test 8sees gi 9normal CT brain 10new 115.3 cm,right per ct scan recent;seeing gynecology soon;they will review 12vit d deficiency;correct 948266 14per endocrinology monitor 15correction refer GTT; 2 hour glucose 36 16refer GGT 17seeing ortho;pre op 18asma,ama neg/cerulopalsmain wnl,AAT wnl 19Negative hep A antibody positive hep B surface antibody negative antigen negative hep C, normal ferritin 20ukltrasound Social History Social History Type Response Smoking Status Never smoker entered on: 02/20/13 Sex
--- OUTSIDE RECORDS SUMMARY | 2022-08-17 08:27 | XMS_ITS | Continuity of Care Document ---
Author Name Unknown Organization [facility] Address Unknown Care Team Providers Care Elementary School Tutor Name Role Phone Sue Barillas NP Primary Care Physician [facility]): 08/24/21 - 09/30/21 [facility] Attending Physician: Santiago Malin Referring Physician: Sue Barillas NP Allergies, Adverse Reactions, Alerts Substance Reaction Severity Status Dust Allergy to pollen Active Pollen seasonal allergies respiratory symptoms Active Incruse Ellipta 1 lightheaded and migraine Active 1dizzy Immunizations Given and Recorded Vaccine Date Status Refusal Reason SARS-CoV-2 mRNA (azytihd-qzxo-odpmw) vax 05/01/21 Recorded influenza virus vaccine, inactivated [...] toxoids (Td) 08/03/05 Given 1Result Comment: [12/07/2017] [id number] 2Result Comment: [12/21/2016] [facility]: [id number] 3Result Comment: [06/10/2015] #3 4Admin Note: per [...] constipation, 08/23/21 8:22:00 EDT, Route to Pharmacy Electronically,[facility], Partial fill upon patient... [...] Refills, Maintenance, 11/06/20 10:24:00 EDT, administered at [facility] 10/2020 Start Date: 11/06/20 Status: [...] 1resolved after weight loss 2chronic perst 3gyn 58280 5testing negative insulinoma 6likley dumping sydrome 7abnormal GTT ;sugar 36 two hours into test 8sees gi 9normal CT brain 10new 115.3 cm,right per ct scan recent;seeing gynecology soon;they will review 12vit d deficiency;correct 580890 14per endocrinology monitor 15correction refer GTT; 2 hour glucose 36 16refer GGT 17seeing ortho;pre op 18asma,ama neg/cerulopalsmain wnl,AAT wnl 19Negative hep A antibody positive hep B surface antibody negative antigen negative hep C, normal ferritin 20ukltrasound Social History Social History Type Response Smoking Status Never smoker entered on: 02/20/13 Sex
--- OUTSIDE RECORDS SUMMARY | 2022-08-17 08:27 | XMS_ITS | Continuity of Care Document ---
Author Name Unknown Organization [facility] Address [address] [place] [address]- Care Team Providers Care Roustabout Crew Pusher Name Role Phone Louisa LANDRUM, Taras Fuentes Primary Care Physician Encounter 07/02/20 - 07/09/20 [facility] [address], [address] [place] [address]- Attending Physician: Taras Jasso MD Admitting Physician: Taras Jasso MD Referring Physician: Taras Jasso MD Allergies, [...] toxoids (Td) 08/03/05 Given 1Result Comment: [12/07/2017] [id number] 2Result Comment: [12/21/2016] [facility]: [id number] 3Result Comment: [06/10/2015] #3 4Admin Note: per [...] 0 Refills, Maintenance, 07/03/19 13:59:00 EDT, Solution, [facility], 160, cm, 05/29/19 13:36:00 [...] 60 capsule, 5 Refills, Maintenance, 05/07/20 15:54:00EST, [facility], 160.02, cm, 05/01/20 9:18:00 [...] 1 Refills, Soft Stop, 11/20/19 11:59:00 EDT, [facility], 160.02, cm, 11/15/19 10:05:00 [...] 02/25/19 16:55:00 EST, Route to Pharmacy Electronically, [facility], 158, cm, 02/14/19 7:55:00 EST, Height, 61.9, kg, 02/12/19 10:17:00... Start Date: 02/25/19 Status: Ordered montelukast 10 mg oral tablet 10 mg, 1, tablet, By Mouth, Daily in PM, # 90 tablet, Refills 3, Tot. Refills 3, Maintenance, 08/15/19 16:21:00 EDT, Route to Pharmacy Electronically, [facility], 160, cm, 08/15/19 13:45:00 EDT, Height, 56.5, kg, 05/29/19 13:36:00... Start Date: 08/15/19 Status: Ordered ProAir HFA 90 mcg/inh inhalation aerosol with adapter 2, puffs, Inhalation, Every 4 hours, PRN, # 8.5 Gm, Refills 2, Tot. Refills 2, Maintenance, 04/29/19 11:32:00 EST, Aerosol, Route to Pharmacy Electronically, [id number]_[id number], [facility], 160, cm, 04/29/19 10:47:00 EST, Height... Start Date: 04/29/19 Status: Ordered Topamax 50 mg oral tablet See Instructions, take 1 tab in am and 2 tab at bedtime. If AM dose causes bad sedation, add to HS dose., # 90 tablet, 6 Refills, Maintenance, 03/12/20 11:09:00 EST, Tablet, [facility], weaning zonegran off by [...] 6 Refills, Soft Stop, 03/12/20 11:04:00 EST, [facility], Partial fill upon [...] 0 Refills, Maintenance, 06/13/20 14:10:00 EDT, Capsule, [facility],... Start Date: 06/13/20 Status: Ordered [...] 1resolved after weight loss 2chronic perst 3gyn 21945 5testing negative insulinoma 6likley dumping sydrome 7abnormal GTT ;sugar 36 two hours into test 8sees gi 9normal CT brain 10new 115.3 cm,right per ct scan recent;seeing gynecology soon;they will review 12vit d deficiency;correct 263187 14per endocrinology monitor 15correction refer GTT; 2 hour glucose 36 16refer GGT 17seeing ortho;pre op 18asma,ama neg/cerulopalsmain wnl,AAT wnl 19Negative hep A antibody positive hep B surface antibody negative antigen negative hep C, normal ferritin 20ukltrasound Procedures Procedure Date Related Diagnosis Body Site Status DEXA of hip and spine osteoporosi 07/03/20 Completed Results Radiology Reports * Exam Date Time Procedure Performing Provider Status 07/02/20 9:41 AM Dexa Bone Density (Axial) Neena Segovia; Osiel (Verified) Notes: (Dexa Bone Density (Axial)) Reason For Exam: post gastric bypass;Screening for Osteoporosis RESULT: DEXA BONE DENSITY (AXIAL) Bone Density Report Name: HERNAN FLORES Age: 49 Sex: Female Ethnicity: White Date of : 1970 Indication: SCREENING FOR OSTEOPOROSIS. POSTMENOPAUSAL. Referring Provider: TARAS JASSO Study: Bone densitometry was performed. Exam Date: July 02, 2020 Accession number: [id number] Bone Density: Region BMD T-score Z-score Classification AP Spine (L2, L3) 0.834 -2.0 -1.2 Osteopenia Femoral Neck (Right) 0.544 -2.7 -1.9 Osteoporosis Total Hip (Right) 0.638 -2.5 -1.9 Osteoporosis Total Forearm (Left) 0.418 -3.0 -2.2 1/3 Forearm (Left) 0.507 -3.1 -2.3 Osteoporosis UD Forearm (Left) 0.299 -2.5 -1.9 World Health Organization criteria for BMD impression classify patients as: Normal (T-score at or above -1.0), Osteopenia (T-score between -1.0 and -2.5), or Osteoporosis (T-score at or below -2.5). 10-year Fracture Risk: FRAX not reported because: Some T-score at or below -2.5 Previous Exams: Region Exam Age BMD T-score BMD Change BMD Change Date g/cm2 vs Baseline vs Previous AP Spine(L2, L3) 07/02/2020 49 0.834 -2.0 -25.7%* -25.7%* 07/08/2010 39 1.122 0.6 Total Hip(Right) 07/02/2020 49 0.638 -2.5 -26.8%* -26.8%* 07/08/2010 39 0.872 -0.6 Femoral Neck(Right) 07/02/2020 49 0.544 -2.7 -30.2%* -30.2%* 07/08/2010 39 0.780 -0.6 *Denotes significance at 95% confidence level, LSC for AP Spine = 0.022 g/cm2, LSC for Total Hip = 0.027 g/cm2 Clinical Information Provided by Patient: Has used the following medications: Vitamin D Has the following medical conditions: Asthma or Emphysema Patient maximum height was 62.0 Menopause Age: 45 Onset of menses at age 7 Number of children 0 Impression: The patient has osteoporosis as determined by WHO criteria. Based on the results of the patient???s bone density assessment, the risk of future fracture increases approximately two fold for each 1.0 SD decrease in T-score. However, low BMD is not the only risk factor for a future fragility fracture. Other clinical risk factors for osteoporotic fracture should be considered in ascertaining this patient???s future fracture risk including the patient???s age, previous osteoporotic (fragility) fracture, estrogen deficiency/hypogonadism, risk of falling, use of medications implicated in bone loss (glucocorticoids), family history of osteoporotic fracture, diseases and conditions associated with bone loss, low body weight, smoking, high bone turnover, etc. Combining low BMD and other clinical risk factors result in a more precise assessment of future fracture risk. Secondary causes for osteoporosis, such as osteomalacia, other metabolic bone disorders, and diseases and conditions that may contribute to accelerated bone loss may have to be considered depending on the clinical situation. A repeat bone density assessment should be considered in two years. Reported by: Radha Galan M.D. on 07/03/2020 1:21:00 PM. Dictated By: Radha Galan MD Dictated Date/Time: 07/03/20 1:22 pm Reviewed By: Radha Galan MD Signed By: Radha Galan MD Signed Date/Time: 07/03/20 1:22 pm Transcribed By: CSMelanie Transcribed Date/Time: 07/03/20 1:22 pm Social History Social History Type Response Smoking Status Never smoker entered on: 02/20/13 Sex
--- OUTSIDE RECORDS SUMMARY | 2022-08-17 08:28 | XMS_ITS | Continuity of Care Document ---
Author Name Unknown Organization [facility] Address Unknown Care Team Providers Care Peanut Farmer Name Role Phone Eran ELIZABETH, Sue Dahl Primary Care Physician [place] [facility] [place]/21 [facility] Attending Physician: Bradley Herrera NP Allergies, Adverse Reactions, Alerts Substance Reaction Severity Status Dust Allergy to pollen Active Pollen seasonal allergies respiratory symptoms Active Incruse Ellipta 1 lightheaded and migraine Active 1dizzy Immunizations Given and Recorded Vaccine Date Status Refusal Reason SARS-CoV-2 mRNA (ldczxro-hqft-sfoil) vax 05/01/21 Recorded influenza virus vaccine, inactivated [...] toxoids (Td) 08/03/05 Given 1Result Comment: [12/07/2017] [address]-11 2Result Comment: [12/21/2016] [facility]: 08200-802-40 3Result Comment: [06/10/2015] #3 4Admin Note: per [...] 3 Refills, Maintenance, 02/03/21 8:34:00 EST, Tablet, [facility], Partial fill upon patient request if the prescript... Start Date: 02/03/21 Status: Ordered acarbose 50 mg oral tablet 1 tablet = 50 mg, By Mouth, 3 times a day, Take 1 tab (plus 1 25mg tab), 3 times daily with meals.,# 270 tablet, 3 Refills, Maintenance, 02/03/21 8:34:00 EST, Tablet, [facility], Partial fill upon patient request if the prescript... Start Date: 02/03/21 Status: Ordered Baqsimi One Pack 3 mg nasal powder See Instructions, 3 mg Once intrasnasally for severe hypoglycemia, # 2 each, 3 Refills, Soft Stop, 08/28/20 10:36:00 EDT, [facility], Partial fill upon patient [...] Refills, Maintenance, 03/03/21 16:42:00 EST, REC Powder, [facility], Partial fill upon patient [...] 30 mL, 1 Refills, 06/28/21 13:52:00 EDT, [facility], 158, cm, 05/24/21 16:05:00 EDT, Height, 80.6, kg, 03/08/21 12:18... Start Date: 06/28/21 Status: Ordered Dexilant 60 mg oral delayed release capsule 1 capsule = 60 mg, By Mouth, 2 times a day, 30 min before meal, # 60 capsule, 5 Refills, Maintenance, 04/16/21 14:29:00 EST, CR Capsule, [facility], Partial fill upon patient request if the prescription is for a schedule II opioi... Start Date: 04/16/21 Status: Ordered Emgality Prefilled Pen 120 mg/mL subcutaneous solution = 120 mg, Subcutaneous Injection, Once, Maintenance Dose, # 1 kit, 6 Refills, Soft Stop, 06/29/21 10:09:00 EDT, [facility], Partial fill upon patient request if the prescription is for a schedule II opioid drug., 158, cm, 06/29/21... Start Date: 06/29/21 Status: Ordered Emgality Prefilled Pen 120 mg/mL subcutaneous solution = 240 mg, Subcutaneous Injection, Once, Loading Dose, # 2 kit, 0 Refills, Soft Stop, 03/16/21 16:05:00 EST, [facility], Partial fill upon patient request if the prescription is for a schedule II opioid drug., 158, cm, 03/11/21 9:1... Start Date: 03/16/21 Status: Ordered EPINEPHrine 1 mg/mL injectable solution 0.3 mL = 0.3 mg, Intramuscular, Once, # 1 mL, 1 Refills, Soft Stop, 03/08/21 15:07:00 EST, Solution, [facility], Partial fill upon patient [...] 1 Refills, Soft Stop, 11/20/19 11:59:00 EDT, [facility], 160.02, cm, 11/15/19 10:05:00 EDT, Height, 67, kg, 09/11/19 11:20:00 EDT, Dry Weight Start Date: 11/20/19 Status: Ordered Lidocaine Viscous 2% solution 5 mL = 0.1 Gm, By Mouth, 4 times a day, PRN for epigastric pain, # 200 mL, 1 Refills, Maintenance, 04/06/21 9:45:00 EST, Solution, [facility], Partial fill upon patient request if the prescription is for a schedule II opioid drug.... Start Date: 04/06/21 Status: Ordered loratadine 10 mg oral tablet 10 mg, 1, tablet, By Mouth, Daily, # 90 tablet, Refills 0, Tot. Refills 0, Maintenance, 05/24/21 11:12:00 EDT, Route to Pharmacy Electronically, [facility], 158, cm, 05/14/21 7:52:00 EST, Height, 80.6, kg, 03/08/21 12:18:00 EST, D... Start Date: 05/24/21 Status: Ordered meclizine 25 mg oral tablet See Instructions, PRN for dizziness, Take 1 tablet every 8 hours as needed for dizziness, # 15 tablet, 0 Refills, Maintenance, 11/03/20 7:49:00 EDT, Tablet, [facility], Partial fill upon patient request if the prescription is for... Start Date: 11/03/20 Status: Ordered montelukast 10 mg oral tablet 10 mg, 1, tablet, By Mouth, Daily in PM, # 90 tablet, Refills 1, Tot. Refills 1, Maintenance, 04/23/21 12:32:00 EST, Route to Pharmacy Electronically, [facility], 158, cm, 04/09/21 8:13:00 [...] 6 Refills, Maintenance, 12/10/20 12:36:00 EDT,DIS Tablet, [facility], has t... Start Date: 12/10/20 Stop Date: 07/08/21 Status: Ordered [place] 0.65% nasal spray 2 sprays, Nares, Both, 4 times a day, # 1 each, 3 Refills, Maintenance, 05/14/21 11:40:00 EST, [facility], Partial fill upon patient request if the prescription is for a scheduleII opioid drug., 2 sprays Nares, Both 4 times a day... Start Date: 05/14/21 Status: Ordered ProAir HFA 90 mcg/inh inhalation aerosol with adapter 2, puffs, Inhalation, Every 4 hours, PRN, # 8.5 Gm, Refills 1, Tot. Refills 1, Maintenance, 05/13/21 19:25:00 EST, Aerosol, Route to Pharmacy Electronically, NCPDP_[id number], [facility], 158, cm, 05/06/21 6:58:00 [...] Gm, Refills 11, Route to Pharmacy Electronically, NCPDP_[id number], [facility], 158.02, cm, 11/13/20 8:38:00 [...] 1resolved after weight loss 2chronic perst 3gyn 88975 5testing negative insulinoma 6likley dumping sydrome 7abnormal GTT ;sugar 36 two hours into test 8sees gi 9normal CT brain 10new 115.3 cm,right per ct scan recent;seeing gynecology soon;they will review 12vit d deficiency;correct [id number] 14per endocrinology monitor 15correction refer GTT; 2 hour glucose 36 16refer GGT 17seeing ortho;pre op 18asma,ama neg/cerulopalsmain wnl,AAT wnl 19Negative hep A antibody positive hep B surface antibody negative antigen negative hep C, normal ferritin 20ukltrasound Vital Signs Most recent to oldest [Reference Range]: 1 Height 158 cm (06/29/21 9:40 AM) Pulse Rate [55-90 bpm] 92 bpm *H* (06/29/21 9:40 AM) Blood Pressure [90-138/55-84 mm Hg] 106/ 79mm Hg (06/29/21 9:40 AM) Blood pressure sites Arm, left (06/29/21 9:40 AM) Social History Social History Type Response Smoking Status Never smoker entered on: 02/20/13 Sex
--- OUTSIDE RECORDS SUMMARY | 2022-08-17 08:28 | XMS_ITS | Continuity of Care Document ---
Author Name Unknown Organization [facility] Address [address] [facility], [address] Floor, [address] [place] [address]- Care Team Providers Care Store Administrative Assistant Name Role Phone Louisa LANDRUM, Taras Fuentes Primary Care Physician [phone] Encounter [facility] Date(s): 11/28/19 - 12/28/19 [facility] [address], [address], [address] [place] [address]- [facility] Allergies, Adverse Reactions, Alerts Substance Reaction Severity [...] toxoids (Td) 08/03/05 Given 1Result Comment: [12/07/2017] [id number] 2Result Comment: [12/21/2016] [facility]: [id number] 3Result Comment: [06/10/2015] #3 4Admin Note: per [...] 07/07/2012:36:00 EDT, Aerosol, Route to Pharmacy Electronically, NCPDP_[id number], [facility] [...] 60 capsule, 5 Refills, Maintenance, 12/26/19 12:06:00EDT, [facility] [...] 1 Refills, Soft Stop, 11/20/19 11:59:00 EDT, [facility] [...] Refills, Maintenance, 11/15/19 10:29:00 EDT, REC Powder, [facility], 240 mL [...] 11:32:00 EST, Aerosol, Route to Pharmacy Electronically, NCPDP_[id number], [facility] [...] 07/08/19 13:36:00 EDT, Route to Pharmacy Electronically, NCPDP_[id number], [facility], 160, cm, 07/08/19 13:03:00 ED... Start Date: 07/08/19 Status: Ordered Topamax 50 mg oral tablet 2 tablet = 100 mg, By Mouth, Daily at bedtime, # 60 tablet, 6 Refills, Maintenance, 11/04/19 11:08:00 EDT, Tablet, [facility] [...] Refills, Soft Stop, 11/25/19 21:26:00 EDT, Tablet, [facility] [...] perst 3folowed by mental health;recent hospitalization 4gyn 33330 6testing negative insulinoma 7likley dumping sydrome 8abnormal GTT ;sugar 36 two hours into test 9sees gi 10normal CT brain 11new 125.3 cm,right per ct scan recent;seeing gynecology soon;they will review 13vit d deficiency;correct [id number] 15per endocrinology monitor 16correction refer GTT; 2 hour glucose 36 17refer GGT 18seeing ortho;pre op 19asma,ama neg/cerulopalsmain wnl,AAT wnl 20Negative hep A antibody positive hep B surface antibody negative antigen negative hep C, normal ferritin 21ukltrasound Social History Social History Type Response Smoking Status Never smoker entered on: 02/20/13 Sex
--- OUTSIDE RECORDS SUMMARY | 2022-08-17 08:28 | XMS_ITS | Continuity of Care Document ---
Author Name Unknown Organization [facility] Address [address] [facility], 3r d Floor, [address] [place] [address]- Care Team Providers Care Frame Operator Name Role Phone Taras Jasso MD Primary Care Physician [place] [facility] [place] 02/14/19 - 05/09/19 [facility] [address], [address], [address] [place] [address]- [facility] Attending Physician: Yvon Alejandre MD Referring Physician: [...] toxoids (Td) 08/03/05 Given 1Result Comment: [12/07/2017] [address]-94 2Result Comment: [12/21/2016] [facility]: [id number] 3Result Comment: [06/10/2015] #3 4Admin Note: per [...] 11:32:00 EST, Aerosol, Route to Pharmacy Electronically, NCPDP_[id number], [facility], [...] perst 3folowed by mental health;recent hospitalization 4gyn 01339 6testing negative insulinoma 7likley dumping sydrome 8abnormal GTT ;sugar 36 two hours into test 9sees gi 10normal CT brain 11new 125.3 cm,right per ct scan recent;seeing gynecology soon;they will review 13vit d deficiency;correct [id number] 15per endocrinology monitor 16correction refer GTT; 2 hour glucose 36 17refer GGT 18seeing ortho;pre op 19asma,ama neg/cerulopalsmain wnl,AAT wnl 20Negative hep A antibody positive hep B surface antibody negative antigen negative hep C, normal ferritin 21ukltrasound Social History Social History Type Response Smoking Status Never smoker entered on: 02/20/13 Sex
--- OUTSIDE RECORDS SUMMARY | 2022-08-17 08:28 | XMS_ITS | Continuity of Care Document ---
Author Name Unknown Organization [facility] Address [address] [place] [address]- Care Team Providers Care Engineering Aide Name Role Phone Taras Jasso MD Primary Care Physician [phone] Encounter [facility] [place] Date(s): 07/31/19 - 08/07/19 [facility] [address] [place] [address]- [facility] Encounter Diagnosis Asthma(Discharge Diagnosis) - 07/30/19 Chronic sinusitis(Discharge Diagnosis) - 07/30/19 Esophageal reflux (GERD) egd 2017(Discharge Diagnosis) - 07/30/19 Fatty liver(Discharge Diagnosis) - 07/30/19 Hypoglycemia(Discharge Diagnosis) - 07/30/19 Personal history of gastric bypass 2003(Discharge Diagnosis) - 07/31/19 Multiple environmental allergies immujnotherapy(Discharge Diagnosis) - 07/31/19 Attending Physician: Taras Jasso MD Allergies, Adverse [...] toxoids (Td) 08/03/05 Given 1Result Comment: [12/07/2017] [id number] 2Result Comment: [12/21/2016] [facility]: [id number] 3Result Comment: [06/10/2015] #3 4Admin Note: per [...] 07/07/2012:36:00 EDT, Aerosol, Route to Pharmacy Electronically, NCPDP_[id number], [facility], 160, cm, 07/08/19 13:03:00 EDT, Height, 56.... Start Date: 07/08/19 Status: Ordered Dexilant 60 mg oral delayed release capsule 1 capsule = 60 mg, By Mouth, 2 times a day, # 60 capsule, 5 Refills, Maintenance, 07/30/19 10:21:00EDT, [facility], 160, cm, 07/08/19 13:03:00 EDT, Height, 56.5, kg, 05/29/19 13:36:00 EDT, Dry Weight Start Date: 07/30/19 Status: Ordered eletriptan 40 mg oral tablet 1 tablet = 40 mg, By Mouth, Daily, PRN for migraine headache, # 9 tablet, 5 Refills, Soft Stop, 07/16/19 9:23:00 EDT, Tablet, [facility], she has tried sumatriptan and rizatriptan. if insurance still declines let me know which I c... Start Date: 07/16/19 Stop Date: 01/12/20 Status: Ordered famotidine 20 mg oral tablet 20 mg, 1, tablet, By Mouth, Daily at bedtime, # 30 tablet, Refills 5, Tot. Refills 5, Maintenance, 05/17/19 12:02:00 EDT, Route to Pharmacy Electronically, [facility], 160, cm, 05/16/19 10:27:00 EDT, Height, 62.9, kg, 05/12/19 9:1... Start Date: 05/17/19 Status: Ordered famotidine 40 mg oral tablet 1/2 tablet, By Mouth, Daily at bedtime, famotidine 20mg backordered. please take 1/2 tab daily, # 30 each, 1 Refills, Maintenance, 07/30/19 10:21:00 EDT, [facility], 160, cm, 07/08/19 13:03:00 EDT, Height, 56.5, kg, 05/29/19 13:3... Start Date: 07/30/19 Status: Ordered Freestyle Lite Lancets See Instructions, # 100 each, Refills 11, Tot. Refills 11, Maintenance, Use lancets to check blood glucose up to 3x a day. E11.9, 08/07/19 12:56:00 EDT, Supply, Dry Weight Start Date: 08/07/19 Status: Ordered Freestyle Lite Monitor See Instructions, [...] Dry Weight Start Date: 07/11/19 Status: Ordered Incruse Ellipta 62.5 mcg/inh inhalation powder 1 each, Inhalation, Every 24 hours, doses should be taken at least 24 hours apart, # 30 each, 0 Refills, Maintenance, 07/31/19 9:51:00 EDT, Powder, [facility], 160, cm, 07/08/19 13:03:00 EDT, Height, 56.5, kg, 05/29/19 13:36:00 ED... Start Date: 07/31/19 Status: Ordered KlonoPIN 1 mg oral tablet [...] tablet, Refills 3, Tot. Refills 3, Maintenance, 07/31/19 8:04:00 EDT, Route to Pharmacy Electronically, [facility], 160, cm, 07/08/19 13:03:00 EDT, Height, 56.5, kg, 05/29/19 13:36:00... Start Date: 07/31/19 Status: Ordered ProAir HFA 90 mcg/inh inhalation aerosol with adapter 2, puffs, Inhalation, Every 4 hours, PRN, # 8.5 Gm, Refills 2, Tot. Refills 2, Maintenance, 04/29/19 11:32:00 EST, Aerosol, Route to Pharmacy Electronically, NCPDP_[id number], [facility], 160, [...] 07/08/19 13:36:00 EDT, Route to Pharmacy Electronically, NCPDP_[id number], [facility], 160, cm, 07/08/19 13:03:00 ED... Start Date: 07/08/19 Status: Ordered Topamax 50 mg oral tablet 1 tablet = 50 mg, By Mouth, Daily at bedtime, after weaning off zonegran, take 50mg at HS for 2 weeks then increase to 100mg at HS, # 30 tablet, 6 Refills, Maintenance, 07/16/19 10:51:00 EDT, Tablet,[facility], weaning zonegran o... Start Date: 07/16/19 Stop Date: 02/11/20 Status: Ordered Trintellix 10 mg oral tablet 1 tablet = 10 mg, By Mouth, Daily, 0 Refills, Maintenance, 05/12/19 9:31:00 EDT Start Date: 05/12/19 Status: Ordered Problem List Condition Effective Dates [...] perst 3folowed by mental health;recent hospitalization 4gyn [address]200 6testing negative insulinoma 7likley dumping sydrome 8abnormal GTT ;sugar 36 two hours into test 9sees gi 10normal CT brain 11new 125.3 cm,right per ct scan recent;seeing gynecology soon;they will review 13vit d deficiency;correct [id number] 15per endocrinology monitor 16correction refer GTT; 2 hour glucose 36 17refer GGT 18seeing ortho;pre op 19asma,ama neg/cerulopalsmain wnl,AAT wnl 20Negative hep A antibody positive hep B surface antibody negative antigen negative hep C, normal ferritin 21ukltrasound Diagnosis Diagnosis Type Effective Dates Health Status Clinical Service Informant Asthma Discharge Diagnosis 07/30/19 Chronic sinusitis Discharge Diagnosis 07/30/19 Esophageal reflux (GERD) egd 2018 Discharge Diagnosis 07/30/19 Fatty liver Discharge Diagnosis 07/30/19 Hypoglycemia Discharge Diagnosis 07/30/19 Personal history of gastric bypass 2004 Discharge Diagnosis 07/31/19 Multiple environmental allergies immujnotherapy Discharge Diagnosis 07/31/19 Procedures Procedure Date Related Diagnosis Body Site Status CT of paranasal sinuses prajapati diseaSE 1 04/05/19 Completed 1COMPLETE OPACIFICATION FRONTOL /MID/ANT ETHMOID/MAX SINBUS CHNAGES LEFT DEVIATED SEPTUM Social History Social History Type Response Smoking Status Never smoker entered on: 02/20/13 Sex
--- OUTSIDE RECORDS SUMMARY | 2022-08-17 08:28 | XMS_ITS | Continuity of Care Document ---
Author Name Unknown Organization [facility] Address [address] [place] [address]- Care Team Providers Care Gutter Mouth Cutter Name Role Phone Louisa LANDRUM, Taras Fuentes Primary Care Physician [phone] Encounter [facility] [place] Date(s): 09/30/19 - 10/30/19 [facility] [address] [place] [address]- [place] Allergies, Adverse Reactions, Alerts Substance Reaction [...] toxoids (Td) 08/03/05 Given 1Result Comment: [12/07/2017] [id number] 2Result Comment: [12/21/2016] [facility]: [id number] 3Result Comment: [06/10/2015] #3 4Admin Note: per [...] 07/07/2012:36:00 EDT, Aerosol, Route to Pharmacy Electronically, NCPDP_[id number], [facility], 160, cm, 07/08/19 13:03:00 [...] 60 capsule, 5 Refills, Maintenance, 07/30/19 10:21:00EDT, [facility], 160, cm, 07/08/19 13:03:00 EDT, Height, 56.5, kg, 05/29/19 13:36:00 EDT, Dry Weight Start Date: 07/30/19 Status: Ordered eletriptan 40 mg oral tablet 1 tablet = 40 mg, By Mouth, Daily, PRN for migraine headache, # 9 tablet, 5 Refills, Soft Stop, 07/16/19 9:23:00 EDT, Tablet, [facility], she has tried sumatriptan [...] each, 1 Refills, Maintenance, 07/30/19 10:21:00 EDT, [facility], 160, cm, 07/08/19 13:03:00 [...] 6:53:00 EDT Start Date: 10/21/19 Status: Ordered KlonoPIN 1 mg oral tablet [...] Refills,Maintenance, 10/06/19 21:07:00 EDT, DIS Tablet, [facility] Start Date: 10/06/19 Stop Date: 10/09/19 Status: Ordered ProAir HFA 90 mcg/inh inhalation aerosol with adapter 2, puffs, Inhalation, Every 4 hours, PRN, # 8.5 Gm, Refills 2, Tot. Refills 2, Maintenance, 04/29/19 11:32:00 EST, Aerosol, Route to Pharmacy Electronically, NCPDP_[id number], [facility], 160, [...] 07/08/19 13:36:00 EDT, Route to Pharmacy Electronically, NCPDP_[id number], [facility], 160, cm, 07/08/19 13:03:00 ED... Start Date: 07/08/19 Status: Ordered Topamax 50 mg oral tablet 1 tablet = 50 mg, By Mouth, Daily at bedtime, after weaning off zonegran, take 50mg at HS for 2 weeks then increase to 100mg at HS, # 30 tablet, 6 Refills, Maintenance, 02/11/20 10:51:00 EST, Tablet,[facility], weaning zonegran o... Start Date: 02/11/20 Stop Date: 09/08/20 Status: Ordered Topamax 50 mg oral tablet 1 tablet = 50 mg, By Mouth, Daily at bedtime, for 30 days, after weaning off zonegran, take 50mg atHS for 2 weeks then increase to 100mg at HS, # 30 tablet, 6 Refills, Hard Stop 02/11/20 10:51:00 EST, 07/16/19 10:51:00 EDT, Tablet, [facility]... Start Date: 07/16/19 Stop Date: 02/11/20 Status: Ordered Zofran 4 mg oral tablet 1 tablet = 4 mg, By Mouth, Every 8 hours, PRN Nausea & Vomiting, # 30 tablet, 0 Refills, Maintenance, 09/30/19 11:23:00 EDT, [facility], 160.02, cm, 09/24/19 15:31:00 EDT, [...] perst 3folowed by mental health;recent hospitalization 4gyn 8[address]22 6testing negative insulinoma 7likley dumping sydrome 8abnormal GTT ;sugar 36 two hours into test 9sees gi 10normal CT brain 11new 125.3 cm,right per ct scan recent;seeing gynecology soon;they will review 13vit d deficiency;correct [id number] 15per endocrinology monitor 16correction refer GTT; 2 hour glucose 36 17refer GGT 18seeing ortho;pre op 19asma,ama neg/cerulopalsmain wnl,AAT wnl 20Negative hep A antibody positive hep B surface antibody negative antigen negative hep C, normal ferritin 21ukltrasound Social History Social History Type Response Smoking Status Never smoker entered on: 02/20/13 Sex
--- OUTSIDE RECORDS SUMMARY | 2022-08-17 08:28 | XMS_ITS | Continuity of Care Document ---
Author Name Unknown Organization [facility] Address [address] [place] [address]- Care Team Providers Care Hog Cooler Name Role Phone Eran ERADICATOR, Sue Dahl Primary Care Physician [phone] Encounter [facility] Date(s): 07/13/21 - 07/20/21 [facility] Adult [address] [place] [address]- Encounter Diagnosis Bipolar disorder NOS(Discharge Diagnosis) - 07/13/21 Attending Physician: Not on Staff, Attending MD Allergies, Adverse Reactions, Alerts Substance Reaction Severity Status Dust Allergy to pollen Active Pollen seasonal allergies respiratory symptoms Active Incruse Ellipta 1 lightheaded and migraine Active 1dizzy Immunizations Given and Recorded Vaccine Date Status Refusal Reason SARS-CoV-2 mRNA (pxqyrpb-azpw-seslk) vax 05/01/21 Recorded influenza virus vaccine, inactivated [...] toxoids (Td) 08/03/05 Given 1Result Comment: [12/07/2017] [address]-85 2Result Comment: [12/21/2016] [facility] [place]: 32720-190-04 3Result Comment: [06/10/2015] #3 4Admin Note: per [...] 3 Refills, Maintenance, 02/03/21 8:34:00 EST, Tablet, [facility], Partial fill upon patient request if the prescript... Start Date: 02/03/21 Status: Ordered acarbose 50 mg oral tablet 1 tablet = 50 mg, By Mouth, 3 times a day, Take 1 tab (plus 1 25mg tab), 3 times daily with meals.,# 270 tablet, 3 Refills, Maintenance, 02/03/21 8:34:00 EST, Tablet, [facility], Partial fill upon patient request if the prescript... Start Date: 02/03/21 Status: Ordered Baqsimi One Pack 3 mg nasal powder See Instructions, 3 mg Once intrasnasally for severe hypoglycemia, # 2 each, 3 Refills, Soft Stop, 08/28/20 10:36:00 EDT, [facility], Partial fill [...] Refills, Maintenance, 03/03/21 16:42:00 EST, REC Powder, [facility], Partial fill upon [...] 30 mL, 1 Refills, 06/28/21 13:52:00 EDT, [facility], 158, cm, 05/24/21 16:05:00 EDT, Height, 80.6, kg, 03/08/21 12:18... Start Date: 06/28/21 Status: Ordered Dexilant 60 mg oral delayed release capsule 1 capsule = 60 mg, By Mouth, 2 times a day, 30 min before meal, # 60 capsule, 5 Refills, Maintenance, 04/16/21 14:29:00 EST, CR Capsule, [facility], Partial fill upon patient request if the prescription is for a schedule II opioi... Start Date: 04/16/21 Status: Ordered Emgality Prefilled Pen 120 mg/mL subcutaneous solution = 120 mg, Subcutaneous Injection, Once, Maintenance Dose, # 1 kit, 6 Refills, Soft Stop, 06/29/21 10:09:00 EDT, [facility], Partial fill upon patient request if the prescription is for a schedule II opioid drug., 158, albertina, 06/29/21... Start Date: 06/29/21 Status: Ordered Emgality Prefilled Pen 120 mg/mL subcutaneous solution = 240 mg, Subcutaneous Injection, Once, Loading Dose, # 2 kit, 0 Refills, Soft Stop, 03/16/21 16:05:00 EST, [facility], Partial fill [...] 1 Refills, Maintenance, 04/06/21 9:45:00 EST, Solution, [facility], Partial fill upon patient request if the prescription is for a schedule II opioid drug.... Start Date: 04/06/21 Status: Ordered loratadine 10 mg oral tablet 10 mg, 1, tablet, By Mouth, Daily, # 90 tablet, Refills 0, Tot. Refills 0, Maintenance, 05/24/21 11:12:00 EDT, Route to Pharmacy Electronically, [facility], 158, cm, 05/14/21 7:52:00 EST, Height, 80.6, kg, 03/08/21 12:18:00 EST, D... Start Date: 05/24/21 Status: Ordered meclizine 25 mg oral tablet See Instructions, PRN for dizziness, Take 1 tablet every 8 hours as needed for dizziness, # 15 tablet, 0 Refills, Maintenance, 11/03/20 7:49:00 EDT, Tablet, [facility], Partial fill upon patient request if the prescription is for... Start Date: 11/03/20 Status: Ordered montelukast 10 mg oral tablet 10 mg, 1, tablet, By Mouth, Daily in PM, # 90 tablet, Refills 1, Tot. Refills 1, Maintenance, 04/23/21 12:32:00 EST, Route to Pharmacy Electronically, [facility], 158, cm, 04/09/21 8:13:00 EST, [...] 6 Refills, Maintenance, 12/10/20 12:36:00 EDT,DIS Tablet, [facility], has t... Start Date: 12/10/20 Stop Date: 07/08/21 Status: Ordered Hyde 0.65% nasal spray 2 sprays, Nares, Both, 4 times a day, # 1 each, 3 Refills, Maintenance, 05/14/21 11:40:00 EST, [facility], Partial fill [...] 19:25:00 EST, Aerosol, Route to Pharmacy Electronically, NCPDP_[id number], [facility], 158, cm, 05/06/21 6:58:00 EST, Height, 80.... Start Date: 05/13/21 Status: Ordered Reclast = 5 mg, IV Infusion, Once, 0 Refills, Maintenance, 11/06/20 10:24:00 EDT, administered at [facility] 10/2020 Start Date: 11/06/20 Status: [...] Gm, Refills 11, Route to Pharmacy Electronically, NCPDP_[id number], [facility], 158.02, cm, 11/13/20 8:38:00 EDT, [...] 1resolved after weight loss 2chronic perst 3gyn [id number] 5testing negative insulinoma 6likley dumping sydrome 7abnormal GTT ;sugar 36 two hours into test 8sees gi 9normal CT brain 10new 115.3 cm,right per ct scan recent;seeing gynecology soon;they will review 12vit d deficiency;correct [id number] 14per endocrinology monitor 15correction refer GTT; 2 hour glucose 36 16refer GGT 17seeing ortho;pre op 18asma,ama neg/cerulopalsmain wnl,AAT wnl 19Negative hep A antibody positive hep B surface antibody negative antigen negative hep C, normal ferritin 20ukltrasound Diagnosis Diagnosis Type Effective Dates Health Status Cl inical Service Informant Bipolar disorder NOS Discharge Diagnosis 07/13/21 Vital Signs Most recent to oldest [Reference Range]: 1 2 Height 158 cm (07/13/21 12:19 PM) 158 cm (07/13/21 12:02 PM) Weight 74.5 kg (07/13/21 12:02 PM) Oxygen Saturation [94-100 %] 96 % (07/13/21 12:02 PM) Pulse Rate [55-90 bpm] 65 bpm (07/13/21 12:02 PM) Body Mass Index [18.5-24.99] 29.84 *H* (07/13/21 12:02 PM) Respiratory Rate [16-30 br/min] 14 br/mi n *L* (07/13/21 12:02 PM) Temperature [96.8-100.4 DegF] 97.6 DegF (07/13/21 12:02 PM) Mode of Delivery (Oxygen) Room air (07/13/21 12:02 PM) Temperature Route Oral (07/13/21 12:02 PM) Weight Obtained Via Standing scale (07/13/21 12:02 PM) Social History Social History Type Response Smoking Status Never smoker entered on: 02/20/13 Sex
--- OUTSIDE RECORDS SUMMARY | 2022-08-17 08:28 | XMS_ITS | Continuity of Care Document ---
Author Name Unknown Organization [facility] ter Address [address] [place] [id number]- Care Team Providers Care Command And Control Officer Name Role Phone Eran HELMET HAT SWEATBAND PUNCHER, Sue Dahl Primary Care Physician [place] [facility] Date(s): 08/20/21 - 08/23/[address] [address] Discharge Disposition: A-D/C Home Attending Physician: Avery Costello MD Admitting Physician: Avery Costello MD Referring Physician: Not on Staff, Referring MD Allergies, Adverse Reactions, Alerts Substance Reaction Severity Status Dust Allergy to pollen Active Incruse Ellipta 1 lightheaded and migraine Active Pollen seasonal allergies respiratory symptoms Active 1dizzy Immunizations Given and Recorded Vaccine Date Status Refusal Reason SARS-CoV-2 mRNA (tjdxinn-nuba-smocp) vax 05/01/21 Recorded influenza virus vaccine, inactivated [...] toxoids (Td) 08/03/05 Given 1Result Comment: [12/07/2017] [id number] 2Result Comment: [12/21/2016] [facility]: 64089-089-82 3Result Comment: [06/10/2015] #3 4Admin Note: per pt 5Admin Note: given in clinic Medications acarbose 25 mg oral tablet 1 tablet = 25 mg, By Mouth, 3 times a day, Take 1 tab (plus 1 50mg tab), 3 times daily with meals.,# 270 tablet, 3 Refills, Maintenance, 02/03/21 8:34:00 EST, Tablet, [facility], Partial fill upon patient request if the prescript... Start Date: 02/03/21 Status: Ordered acarbose 50 mg oral tablet 1 tablet = 50 mg, By Mouth, 3 times a day, Take 1 tab (plus 1 25mg tab), 3 times daily with meals.,# 270 tablet, 3 Refills, Maintenance, 02/03/21 8:34:00 EST, Tablet, [facility], Partial fill upon patient request if the prescript... Start Date: 02/03/21 Status: Ordered clonazePAM 1 mg oral tablet 0 Refills, Maintenance, 01/15/21 7:15:00 EST, Partial fill upon patient request if the prescriptionis for a schedule II opioid drug. Start Date: 01/15/21 Status: Ordered Colace sodium 100 mg oral capsule 100 mg, 1, capsule, By Mouth, 2 times a day, PRN, with plenty of water, # 20 capsule, Refills 1, Tot. Refills 1, Maintenance, for constipation, 08/23/21 8:22:00 EDT, Route to Pharmacy Electronically,[facility], Partial fill upon patient... Start Date: 08/23/21 Status: Ordered cyanocobalamin 1000 mcg/ml injectable solution See Instructions, INJECT 1ml SUBCUTANEOUSLY ONCE A WEEK FOR EIGHT WEEKS then once a month there after per PCP, # 30 mL, 1 Refills, 06/28/21 13:52:00 EDT, [facility], 158, albertina, 05/24/21 16:05:00 EDT, Height, 80.6, kg, 03/08/21 12:18... Start Date: 06/28/21 Status: Ordered Dexilant 60 mg oral delayed release capsule 1 capsule = 60 mg, By Mouth, 2 times a day, 30 min before meal, # 60 capsule, 5 Refills, Maintenance, 04/16/21 14:29:00 EST, CR Capsule, [facility], Partial fill upon patient request if the prescription is for a schedule II opioi... Start Date: 04/16/21 Status: Ordered Emgality Prefilled Pen 120 mg/mL subcutaneous solution = 120 mg, Subcutaneous Injection, Once, Maintenance Dose, # 1 kit, 6 Refills, Soft Stop, 06/29/21 10:09:00 EDT, [facility], Partial fill upon patient request if the prescription is for a schedule II opioid drug., 158[place], 06/29/21... Start Date: 06/29/21 Status: Ordered EPINEPHrine 1 mg/mL injectable solution 0.3 mL = 0.3 mg, Intramuscular, Once, # 1 mL, 1 Refills, Soft Stop, 03/08/21 15:07:00 EST, Solution, [facility], Partial fill upon patient request if [...] 05/24/21 11:12:00 EDT, Route to Pharmacy Electronically, [facility], 158, cm, 05/14/21 7:52:00 EST, Height, 80.6, kg, 03/08/21 12:18:00 EST DRadha.. Start Date: 05/24/21 Status: Ordered meclizine 25 mg oral tablet See Instructions, PRN for dizziness, Take 1 tablet every 8 hours as needed for dizziness, # 15 tablet, 0 Refills, Maintenance, 11/03/20 7:49:00 EDT, Tablet, [facility], Partial fill upon patient request if the prescription is for... Start Date: 11/03/20 Status: Ordered montelukast 10 mg oral tablet 10 mg, 1, tablet, By Mouth, Daily in PM, # 90 tablet, Refills 1, Tot. Refills 1, Maintenance, 04/23/21 12:32:00 EST, Route to Pharmacy Electronically, [facility], 158, cm, 04/09/21 8:13:00 EST, Height, 80.6, kg, 03/08/21 12:18:00... Start Date: 04/23/21 Status: Ordered Nurtec ODT 75 mg oral tablet, disintegrating 1 tablet = 75 mg, By Mouth, Every 24 hours, PRN as needed for migraine headache, not to exceed 75 mg in 24 hours. no refill in nder 30 days, # 8 tablet, 6 Refills, Maintenance, 12/10/20 12:36:00 EDT,DIS Tablet, [facility], has t... Start Date: 12/10/20 Stop Date: 07/08/21 Status: Ordered oxyCODONE 5 mg oral tablet 5 mg, 1, tablet, By Mouth, Every 6 hours, PRN, The patient may fill in an amount not to exceed the recommended full quantity indicated., # 8 tablet, Refills 0, Tot. Refills 0, Maintenance, for pain, 08/23/21 8:23:00 EDT, Route to Pharmacy Electronical... Start Date: 08/23/21 Status: Ordered ProAir HFA 90 mcg/inh inhalation aerosol with adapter 2, puffs, Inhalation, Every 4 hours, PRN, # 8.5 Gm, Refills 1, Tot. Refills 1, Maintenance, 05/13/21 19:25:00 EST, Aerosol, Route to Pharmacy Electronically, NCPDP_[id number], [facility], 158, cm, 05/06/21 6:58:00 EST, Height, 80.... Start Date: 05/13/21 Status: Ordered Reclast = 5 mg, IV Infusion, Once, 0 Refills, Maintenance, 11/06/20 10:24:00 EDT, administered at [facility] 10/2020 Start Date: 11/06/20 Status: Ordered [...] Gm, Refills 11, Route to Pharmacy Electronically, NCPDP_[id number], [facility], 158.02, cm, 11/13/20 8:38:00 EDT, Height, [...] 1resolved after weight loss 2chronic perst 3gyn 07376 5testing negative insulinoma 6likley dumping sydrome 7abnormal GTT ;sugar 36 two hours into test 8sees gi 9normal CT brain 10new 115.3 cm,right per ct scan recent;seeing gynecology soon;they will review 12vit d deficiency;correct [id number] 14per endocrinology monitor 15correction refer GTT; 2 hour glucose 36 16refer GGT 17seeing ortho;pre op 18asma,ama neg/cerulopalsmain wnl,AAT wnl 19Negative hep A antibody positive hep B surface antibody negative antigen negative hep C, normal ferritin 20ukltrasound Results Radiology Reports * Exam Date Time Procedure Performing Provider Status 08/20/21 2:56 PM Upper GI W/ Small Bowel Tommy Carranza es; Auth (Verified) Notes: (Upper GI W/ Small Bowel) Reason For Exam: Pain;pain RESULT: Upper GI W/ Small Bowel Upper GI W/ Small Bowel INDICATION: Hx of Present Illness: pt reports n v x1 week. abd pain starting 12 hours ago and progressively getting worse.; Reason: Pain; Clinical Question(s): Obstruction; Order Comment: 30 min @ 11:00 1 hr @ 11:30 2 hr @ 12:30 Pt drank 100 mL of Omnipaque 300 COMPARISONS: CT abdomen and pelvis 08/20/2021 FLUOROSCOPY TIME: 1 minute 12 seconds EXPOSURE: 556.1 uGym2 Surgical clips are noted throughout the mid and upper abdomen. Lumbar fixation hardware projecting over the low abdomen upper pelvis. TECHNIQUE: Water soluble contrast upper GI and small bowel follow-through examination was performedby Deonna Curiel CNP. Patient vomited multiple times throughout the course of the exam. FINDINGS: Distal Esophagus: Normal in contour and mucosal appearance. Dilated distal esophagus measuring up to approximately 5 cm. Normal esophageal motility, with prompt transit into the gastric pouch. 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 No esophageal obstruction. Jejunum: Normal contour and mucosal appearance. Dilatation of the jejunum to approximately 5.5 cm. After 3 1/2 hours, contrast does not extend beyond proximal/mid jejunum. Exam ended at this time. IMPRESSION: 1. Small bowel obstruction, with no contrast seen beyond the proximal/mid jejunum after 3 1/2 hours. Consistent with prior CT. Findings communicated to Echo Douglas M.D. via [employer] at 1430 08/20/2021. 2. Dilated distal esophagus and gastric pouch. Paraesophageal hiatal hernia with a portion of the gastric pouch herniating through the esophageal hiatus By undersigning and finalizing the report, the attending radiologist has personally reviewed and interpreted the images and agrees with the description of the findings. I have personally reviewed the images and I agree with this report. WSN: [id number] Ordering Physician: Ubaldo Ramesh Dictated By: Deonna Curiel NP Dictated Date/Time: 08/20/21 4:15 pm Reviewed By: Baduilio Chen MD Signed By: Baudilio Chen MD Signed Date/Time: 08/20/21 4:20 pm Transcribed By: LISA Transcribed Date/Time: 08/20/21 3:13 pm Vital Signs Most recent to oldest [Reference Range]: 1 2 3 Height 157.8 cm (08/23/21 10:07 AM) 157.8 cm (08/22/21 5:00 PM) 157.8 cm (08/22/21 1:07 PM) Weight 71.2 kg (08/20/21 8:29 PM) 80.6 kg (08/20/21 4:09 PM) Oxygen Saturation [94-100 %] 100 % (08/23/21 10:07 AM) 98 % (08/23/21 8:00 AM) 99 % (08/23/21 3:00 AM) Pulse Rate [55-90 bpm] 104 bpm *H* (08/23/21 10:07 AM) 93 bpm *H* (08/23/21 8:00 AM) 86 bpm (08/23/21 3:00 AM) Body Mass Index [18.5-24.99] 28.59 *H* (08/20/21 8:29 PM) 32.37 *>HHI* (08/20/21 4:09 PM) Blood Pressure [90-138/55-84 mm Hg] 133/88mm Hg (08/23/21 10:07 AM) 123/85mm Hg (08/23/21 8:00 AM) 114/73mm Hg (08/23/21 3:00 AM) Respiratory Rate [16-30 br/min] 19 br/min (08/23/21 10:07 AM) 18 br/min (08/23/21 8:00 AM) 18 br/min (08/23/21 3:00 AM) Temperature [96.8-100.4 DegF] 98 DegF (08/23/21 10:07 AM) 98.3 DegF (08/23/21 8:00 AM) 98.1 DegF (08/23/21 3:00 AM) Liters per Minute 6 L/min (08/20/21 6:30 PM) Mode of Delivery (Oxygen) Room air (08/23/21 10:07 AM) Room air (08/23/21 8:00 AM) Room air (08/23/21 3:00 AM) Blood pressure sites Arm, right (08/23/21 10:07 AM) Arm, left (08/23/21 8:00 AM) Arm, left (08/23/21 3:00 AM) Temperature Route Oral (08/23/21 10:07 AM) Axillary (08/23/21 8:00 AM) Oral (6/20/22 3:00 AM) Dry Weight 71.2 kg (08/20/21 8:29 PM) 80.6 kg (08/20/21 4:09 PM) Weight Obtained Via Patient/family state d (08/20/21 4:09 PM) Social History Social History Type Response Smoking Status Never smoker entered on: 02/20/13 Sex
--- OUTSIDE RECORDS SUMMARY | 2022-08-17 08:28 | XMS_ITS | Continuity of Care Document ---
Author Name Unknown Organization [facility] Address [address] [place] [address]- Care Team Providers Care Melt House Centrifugal Operator Name Role Phone Eran DOCUMENT CONTROL SPECIALIST, Sue Dahl Primary Care Physician Encounter [facility] Date(s): 07/28/22 - 08/04/22 [facility] Adult [address] [place] [address]- Encounter Diagnosis Asthma, mild persistent(Discharge Diagnosis) - 07/28/22 Anxiety disorder(Discharge Diagnosis) - 07/28/22 Bipolar disorder NOS(Discharge Diagnosis) - 07/28/22 Diaphragmatic hernia(Discharge Diagnosis) - 07/28/22 Fatty liver(Discharge Diagnosis) - 07/28/22 B12 deficiency(Discharge Diagnosis) - 07/28/22 Esophageal reflux (GERD) egd 2017(Discharge Diagnosis) - 07/28/22 Migraines(Discharge Diagnosis) - 07/28/22 Osteoporosis S/P Reclast(Discharge Diagnosis) - 07/28/22 Attending Physician: Not on Staff, Attending MD Allergies, Adverse Reactions, Alerts Substance Reaction Severity Status Dust Allergy to pollen Active Incruse Ellipta 1 lightheaded and migraine Active Pollen seasonal allergies respiratory symptoms Active 1dizzy Immunizations Given and Recorded Vaccine Date Status Refusal Reason tetanus-diphtheria toxoids (Td) 1 07/28/22 Given tetanus-diphtheria toxoids (Td) 08/03/05 Given pneumococcal 20-valent conjugate vaccine 2 07/28/22 Given [id number] 12y+ bivalent booster vax 3 12/24/21 Given [...] vaccine, inactivated 02/08/11 Give n SARS-CoV-2 mRNA ([id number]-[id number]-[id number]) vax 05/01/21 Recorded zoster vaccine, inactivated 11/03/20 [...] (IM) (oldterm) 9 12/25/07 Given 1Result Comment: [id number] 2Result Comment: [id number] 3Result Comment: [id number] 4Result Comment: [id number] 5Result Comment: [12/07/2017] [address]-78 6Result Comment: [12/21/2016] [facility]: 53588-321-99 7Result Comment: [06/10/2015] #3 8Admin Note: per pt 9Admin Note: given in clinic Medications acetaminophen 500 mg oral tablet 2 tablet = 1,000 mg, By Mouth, Every 6 hours, PRN as needed for fever, # 200 tablet, 0 Refills, Maintenance, 12/03/21 10:17:00 EDT, Tablet, [facility], Partial fill upon patient request if the prescription is for a schedule II opi... Start Date: 12/03/21 Status: Ordered Albuterol (Eqv-ProAir HFA) 90 mcg/inh inhalation aerosol 2 puffs, Inhalation, Every 4 hours, PRN NEEDED FOR WHEEZING, # 8.5 Gm, 5 Refills, Maintenance, 03/09/22 11:21:00 EST, [facility], 17, INHALE TWO PUFFS BY [...] 6 Refills, Maintenance, 11/03/21 8:23:00 EDT, Tablet, [facility], 2 tablet By Mouth 2 times a day, 158, cm, 11/03/21 8:01:00 EDT,Height, 71.5, kg, 09/01/21 16:21:00 EDT, Dry Weight Start Date: 11/03/21 Status: Ordered cetirizine 10 mg oral tablet 1 tablet, By Mouth, Daily, # 30 tablet, 5 Refills, Maintenance, 07/28/22 13:34:00 EDT, [facility], 158, cm, 07/28/22 13:14:00 EDT, Height, [...] Refills, Maintenance, 05/30/22 7:57:00 EDT, CR Capsule, [facility], Partial fill upon patient request if the prescription is for a schedule II opioid... Start Date: 05/30/22 Status: Ordered Emgality Prefilled Pen 120 mg/mL subcutaneous solution = 120 mg, Subcutaneous Injection, Once, Maintenance Dose, # 3 kit, 2 Refills, Soft Stop, 07/14/22 10:04:00 EDT, [facility], requesting 3 month supply for cheaper martinez. with 2 refills. had follow up just now, doing ron, albertina Baca... Start Date: 07/14/22 Status: Ordered EPINEPHrine 1 mg/mL injectable solution 0.3 mL = 0.3 mg, Intramuscular, Once, # 1 mL, 1 Refills, Soft Stop, 03/08/21 15:07:00 EST, Solution, [facility], Partial fill upon patient request if the prescription is for a schedule II opioid drug., 158, cm, 03/08/21 12:18:00 E... Start Date: 03/08/21 Status: Ordered famotidine 40 mg oral tablet 1 tablet = 40 mg, By Mouth, 2 times a day, # 60 tablet, 6 Refills, Maintenance, 01/31/22 14:05:00 EST, Suspension, [facility], Partial fill upon patient request if the prescription is for a schedule II opioid drug., 163, cm, 01/18... Start Date: 01/31/22 Stop Date: 08/29/22 Status: Ordered Fiber Choice 1.5 g oral tablet, chewable 1 tablet = 1.5 Gm, Chew, 3 times a day, # 90 tablet, 0 Refills, Maintenance, 04/09/22 15:16:00 EST,Chew Tablet, [facility] #[id number], Partial fill upon patient request if the [...] Refills, Maintenance, 04/09/22 15:16:00 EST, REC Powder, [facility] #[id number], Partial fill upon patient request if the prescription is for a schedule II opioid drug., 17 Gm... Start Date: 04/09/22 Status: Ordered montelukast 10 mg oral tablet 1, tablet, By Mouth, Daily in PM, # 90 tablet, Refills 1, Tot. Refills 1, Maintenance, 11/14/21 11:28:00 EDT, Route to Pharmacy Electronically, [facility], 158, cm, 11/03/21 8:01:00 EDT, Height, 71.5, kg, 09/01/21 16:21:00 EDT, Start Date: 11/14/21 Status: Ordered Nurtec ODT 75 mg oral tablet, disintegrating See Instructions, TAKE ONE TABLET DAILY NEEDED FOR migraines, DO NOT EXCEED ONE TABLET IN 24 HOURS, # 8 tablet, 6 Refills, Maintenance, 12/28/21 15:14:00 EDT, [facility], 163,cm, 12/24/21 8:20:00 EDT, Height, 67, kg, 11/26/21... Start Date: 12/28/21 Status: Ordered One touch ultra lancets One touch ultra lancets, See Instructions, # 100 each, Refills 7, Tot. Refills 7, Maintenance, Use glucose meter to check blood glucose up to 3x a day. E11.9, 02/24/23 13:28:00 EST, Supply, 158, cm, 04/29/22 8:41:00 [...] Refills, Maintenance, 11/06/20 10:24:00 EDT, administered at [facility] 10/2020 Start Date: 11/06/20 Status: Ordered Stool Softener + Stimulant Laxative 50 mg-8.6 mg oral capsule 1 capsule, By Mouth, Daily in PM, # 60 capsule, 0 Refills, Maintenance, 04/09/22 15:17:00 EST, Capsule, [facility] #[id number], Partial fill upon patient request if the prescription is for a schedule II opioid drug., 1 capsule By Mouth Daily in P... Start Date: 04/09/22 Status: Ordered Symbicort 160mcg/4.5mcg Inhaler 2, puffs, Inhalation, 2 times a day, rinse mouth and throat after use, # 10.2 Gm, Refills 2, Tot. Refills 2, Maintenance, 06/10/22 20:48:00 EDT, Route to Pharmacy Electronically, NCPDP_[id number], [facility], 158, cm, 06/07/22 10:... Start [...] spine MRI 2017 sx 2018 Confirmed Active Migraines 6, 7 [...] Active Vitamin D deficiency Confirmed Active 1gyn 66902 3testing negative insulinoma 4likley dumping sydrome 5abnormal GTT ;sugar 36 two hours into test 6normal CT brain 7new 8resolved after weight loss 9chronic perst 105.3 cm,right per ct scan recent;seeing gynecology soon;they will review 11vit d deficiency;correct 753993 13per endocrinology monitor 14correction refer GTT; 2 hour glucose 36 15refer GGT 16seeing ortho;pre op 17asma,ama neg/cerulopalsmain wnl,AAT wnl 18Negative hep A antibody positive hep B surface antibody negative antigen negative hep C, normal ferritin 19ukltrasound Diagnosis Diagnosis Type Effective Dates Health Status Clinical Service Informant Asthma, mild persistent Discharge Diagnosis 07/28/22 Anxiety disorder Discharge Diagnosis 07/28/22 Bipolar disorder NOS Discharge Diagnosis 07/28/22 Diaphragmatic hernia Discharge Diagnosis 07/28/22 B12 deficiency Discharge Diagnosis 07/28/22 Esophageal reflux (GERD) egd 2018 Discharge Diagnosis 07/28/22 Fatty liver Discharge Diagnosis 07/28/22 Migraines Discharge Diagnosis 07/28/22 Osteoporosis S/P Reclast Discharge Diagnosis 07/28/22 Vital Signs Most recent to oldest [Reference Range]: 1 Height 158 cm (07/28/22 1:14 PM) Weight 61.2 kg (07/28/22 1:14 PM) Oxygen Saturation [94-100 %] 98 % (07/28/22 1:14 PM) Pulse Rate [55-90 bpm] 74 bpm (07/28/22 1:14 PM) Body Mass Index [18.5-24.99 kg/m2] 24.52 kg/m2 (07/28/22 1:14 PM) Blood Pressure [90-138/55-84 mm Hg] 109/ 77mm Hg (07/28/22 1:14 PM) Mode of Delivery (Oxygen) Room air (07/28/22 1:14 PM) Blood pressure sites Arm, left (07/28/22 1:14 PM) Weight Obtained Via Standing scale (07/28/22 1:14 PM) Social History Social History Type Response Smoking Status Never smoker entered on: 02/20/13 Sex Patient Care team information Care Team Personnel Name: Caitlyn Mcgee RN Position: [facility] RN Member Role: Primary Care Nurse Name: Sue Barillas NP Position: [facility] PCO Associate Professional Member Role: PCP Address: Address: [address] [place] [address]- Name: Andria Guadalupe RN Position: [facility] SN RN Member Role: Primary Care Nurse Name: Liz Martin RN Position: S RN Member Role: Primary Care Nurse Name: Ambreen Mcmahon RN Position: S RN Member Role: Primary Care Nurse Name: Irais Grijalva RN Position: S RN Member Role: Primary Care Nurse Name: Autumn Martinez RN Position: [facility] SN RN Member Role: Primary Care Nurse Name: Liz English RN Position: S RN Member Role: Primary Care Nurse Name: Dora Williamson RN Position: S RN Member Role: Primary Care Nurse Care Team Related Persons Name: KHUSHI CUNNINGHAM Address: home [address] [place] [address] Name: BHUPINDER VENEGAS Address: home [address] [place] [address] Name: FELIPE FLORES Address: home [address] [place] [address] Name: ARNAV FLORES Address: home [address] [place] [address] Name: IRINA FLORES Address: home [address] [place] [address] Name: RUSLAN FLORES Address: home [address] [place] [address] Name: KAISER PLUNKETT Address: home [address] [place] [address]
--- OUTSIDE RECORDS SUMMARY | 2022-08-17 08:28 | XMS_ITS | Continuity of Care Document ---
Author Name Unknown Organization [facility] Address [address] [place] [address]- Care Team Providers Care Pipe Finishing Supervisor Name Role Phone Taras Jasso MD Primary Care Physician [phone] Encounter [facility] Date(s): 07/08/19 - 07/15/19 [facility] Adult [address] [place] [address]- [facility] Encounter Diagnosis Medicare annual wellness visit, subsequent(Discharge Diagnosis) - 07/08/19 Asthma(Discharge Diagnosis) - 07/08/19 Attending Physician: Taras Jasso MD Allergies, Adverse [...] toxoids (Td) 08/03/05 Given 1Result Comment: [12/07/2017] [address]-02 2Result Comment: [12/21/2016] [facility]: [id number] 3Result Comment: [06/10/2015] #3 4Admin Note: per [...] 0 Refills, Maintenance, 07/03/19 13:59:00 EDT, Solution, [facility], 160, cm, 05/29/19 13:36:00 EDT, Height, 56.5, kg, 03... Start Date: 07/03/19 Status: Ordered albuterol CFC free 90 mcg/inh inhalation aerosol 2, puffs, Inhalation, 4 times a day, PRN, # 25 Gm, Refills 0, Tot. Refills 0, Maintenance, 07/07/2012:36:00 EDT, Aerosol, Route to Pharmacy Electronically, NCPDP_[id number], [facility], 160, cm, 07/08/19 13:03:00 EDT, Height, [...] 05/17/19 12:02:00 EDT, Route to Pharmacy Electronically, [facility], 160, cm, 05/16/19 10:27:00 EDT, Height, [...] 02/25/19 16:55:00 EST, Route to Pharmacy Electronically, [facility], 158, cm, 02/14/19 7:55:00 EST, Height, 61.9, kg, 02/12/19 10:17:00... Start Date: 02/25/19 Status: Ordered montelukast 10 mg oral tablet 10 mg, 1, tablet, By Mouth, Daily in PM, # 30 tablet, Refills 0, Tot. Refills 0, Maintenance, 07/08/19 13:36:00 EDT, Route to Pharmacy Electronically, [facility], 160, cm, 07/08/19 13:03:00 EDT, Height, 56.5, kg, 05/29/19 13:36:00... Start Date: 07/08/19 Status: Ordered ProAir HFA 90 mcg/inh inhalation aerosol with adapter 2, puffs, Inhalation, Every 4 hours, PRN, # 8.5 Gm, Refills 2, Tot. Refills 2, Maintenance, 04/29/19 11:32:00 EST, Aerosol, Route to Pharmacy Electronically, NCPDP_[id number], [facility], 160, cm, 04/29/19 10:47:00 EST, Height... Start Date: 04/29/19 Status: Ordered rizatriptan 10 mg oral tablet 1 tablet = 10 mg, By Mouth, Daily, PRN for migraine headache, # 9 tablet, 5 Refills, Soft Stop, 06/04/19 15:37:00 EDT, Tablet, [facility], sumatriptan ineffective. If insurance says no [...] 07/08/19 13:36:00 EDT, Route to Pharmacy Electronically, NCPDP_[id number], [facility], 160, cm, 07/08/19 13:03:00 ED... Start [...] 5 Refills, Maintenance, 05/30/19 11:48:00 EDT, Capsule, [facility], 160, cm, 05/29/19 13:36:00 EDT, Height, [...] perst 3folowed by mental health;recent hospitalization 4gyn 70192 6testing negative insulinoma 7likley dumping sydrome 8abnormal GTT ;sugar 36 two hours into test 9sees gi 10normal CT brain 11new 125.3 cm,right per ct scan recent;seeing gynecology soon;they will review 13vit d deficiency;correct 706359 15per endocrinology monitor 16correction refer GTT; 2 hour glucose 36 17refer GGT 18seeing ortho;pre op 19asma,ama neg/cerulopalsmain wnl,AAT wnl 20Negative hep A antibody positive hep B surface antibody negative antigen negative hep C, normal ferritin 21ukltrasound Diagnosis Diagnosis Type Effective Dates Health Status Clinical Service Informant Medicare annual wellness visit, subsequent Discharge Diagnosis 07/08/19 Asthma Discharge Diagnosis 07/08/19 Vital Signs Most recent to oldest [Reference Range]: 1 Height 160 cm (07/08/19 1:03 PM) Weight 67.5 kg (07/08/19 1:03 PM) Oxygen Saturation [94-100 %] 98 % (07/08/19 1:03 PM) Pulse Rate [55-90 bpm] 100 bpm *H* (07/08/19 1:03 PM) Body Mass Index [18.5-24.99] 26.37 *H* (07/08/19 1:03 PM) Blood Pressure [90-138/55-84 mm Hg] 102/ 70mm Hg (07/08/19 1:03 PM) Respiratory Rate [16-30 br/min] 16 br/mi n (07/08/19 1:03 PM) Temperature [96.8-100.4 DegF] 97.7 DegF (07/08/19 1:03 PM) Blood pressure sites Arm, left (07/08/19 1:03 PM) Temperature Route Oral (07/08/19 1:03 PM) Social History Social History Type Response Smoking Status Never smoker entered on: 02/20/13 Sex
--- OUTSIDE RECORDS SUMMARY | 2022-08-17 08:28 | XMS_ITS | Continuity of Care Document ---
Author Name Unknown Organization [facility] Address [address] [place] [address]- Care Team Providers Care Glassine Machine Tender Name Role Phone Louisa LANDRUM, Taras Fuentes Primary Care Physician [phone] Encounter [facility] Date(s): 07/01/20 - 07/31/20 [facility] [address] [place] [address]- Allergies, Adverse Reactions, Alerts Substance Reaction Severity [...] toxoids (Td) 08/03/05 Given 1Result Comment: [12/07/2017] [address]-09 2Result Comment: [12/21/2016] [facility]: [id number] 3Result Comment: [06/10/2015] #3 4Admin Note: per [...] 11:32:00 EST, Aerosol, Route to Pharmacy Electronically, NCPDP_[id number], [facility], 160, [...] 1resolved after weight loss 2chronic perst 3gyn 89954 5testing negative insulinoma 6likley dumping sydrome 7abnormal GTT ;sugar 36 two hours into test 8sees gi 9normal CT brain 10new 115.3 cm,right per ct scan recent;seeing gynecology soon;they will review 12vit d deficiency;correct 445447 14per endocrinology monitor 15correction refer GTT; 2 hour glucose 36 16refer GGT 17seeing ortho;pre op 18asma,ama neg/cerulopalsmain wnl,AAT wnl 19Negative hep A antibody positive hep B surface antibody negative antigen negative hep C, normal ferritin 20ukltrasound Social History Social History Type Response Smoking Status Never smoker entered on: 02/20/13 Sex
--- OUTSIDE RECORDS SUMMARY | 2022-08-17 08:28 | XMS_ITS | Continuity of Care Document ---
Author Name Unknown Organization [facility] Address [address] [place] [address]- Care Team Providers Care Wildlife Conservation Professor Name Role Phone Eran Sue JOHNSON Primary Care Physician [phone] Encounter [facility] Date(s): 04/29/22 - 06/09/22 [facility] [address] [place] [address]- Attending Physician: Sarah Chan DO Admitting Physician: Sarah Chan DO Referring Physician: Abby LANDRUM, Yulisa Allergies, Adverse Reactions, Alerts Substance Reaction Severity Status Dust Allergy to pollen Active Pollen seasonal allergies respiratory symptoms Active Incruse Ellipta 1 lightheaded and migraine Active 1dizzy Immunizations Given and Recorded Vaccine Date Status Refusal Reason [id number] 12y+ bivalent booster vax 1 12/24/21 Given [...] vaccine, inactivated 02/08/11 Give n SARS-CoV-2 mRNA ([id number]) vax 05/01/21 Recorded zoster vaccine, inactivated 11/03/20 [...] tetanus-diphtheria toxoids (Td) 08/03/05 Given 1Result Comment: [id number] 2Result Comment: [id number] 3Result Comment: [12/07/2017] [address]-15 4Result Comment: [12/21/2016] [facility]: [id number] 5Result Comment: [06/10/2015] #3 6Admin Note: per [...] 1,200 mL, 5 Refills, Maintenance,04/29/22 9:16:00 EST, [facility] #[id number], Partial fill upon patient request if the prescription is for a schedule II opioid drug., 158, cm, 02... Start Date: 04/29/22 Status: Ordered cetirizine 10 mg oral tablet 1 tablet, By Mouth, Daily, # 30 tablet, 5 Refills, Maintenance, 06/03/22 11:40:00 EDT, [facility], 158, cm, 05/25/22 [...] Refills, Maintenance, 05/30/22 7:57:00 EDT, CR Capsule, [facility] [...] 0 Refills, Maintenance, 04/09/22 15:16:00 EST,Chew Tablet, [facility] #[id number], Partial fill upon patient request if the [...] Refills, Maintenance, 04/09/22 15:16:00 EST, REC Powder, [facility] #[id number], Partial fill upon patient request if the [...] each, 0 Refills, Maintenance, 04/06/22 15:29:00 EST, [facility] #[id number], Partial fi... Start Date: 04/06/22 Status: Ordered Reclast = 5 mg, IV Infusion, Once, 0 Refills, Maintenance, 11/06/20 10:24:00 EDT, administered at [facility] 10/2020 Start Date: 11/06/20 Status: Ordered Stool Softener + Stimulant Laxative 50 mg-8.6 mg oral capsule 1 capsule, By Mouth, Daily in PM, # 60 capsule, 0 Refills, Maintenance, 04/09/22 15:17:00 EST, Capsule, [facility] #[id number], Partial fill upon patient request if the prescription is for a schedule II opioid drug., 1 capsule By Mouth Daily in P... Start Date: 04/09/22 Status: Ordered Symbicort 160mcg/4.5mcg Inhaler 2, puffs, Inhalation, 2 times a day, rinse mouth and throat after use, # 10.2 Gm, Refills 3, Tot. Refills 3, Maintenance, 11/23/21 19:57:00 EDT, Route to Pharmacy Electronically, NCPDP_[id number], [facility], 158, [...] Active Vitamin D deficiency Confirmed Active 1gyn 65824 3testing negative insulinoma 4likley dumping sydrome 5abnormal GTT ;sugar 36 two hours into test 6normal CT brain 7new 8resolved after weight loss 9chronic perst 105.3 cm,right per ct scan recent;seeing gynecology soon;they will review 11vit d deficiency;correct 025022 13per endocrinology monitor 14correction refer GTT; 2 hour glucose 36 15refer GGT 16seeing ortho;pre op 17asma,ama neg/cerulopalsmain wnl,AAT wnl 18Negative hep A antibody positive hep B surface antibody negative antigen negative hep C, normal ferritin 19ukltrasound Social History Social History Type Response Smoking Status Never smoker entered on: 02/20/13 Sex Patient Care team information Care Team Personnel Name: Caitlyn Mcgee RN Position: [facility] RN Member Role: Primary Care Nurse Name: Sue Barillas NP Position: [facility] PCO Associate Professional Member Role: PCP Address: Address: [address] [place] [address]- Name: Andria Guadalupe RN Position: [facility] SN RN Member Role: Primary Care Nurse Name: Liz Martin RN Position: [facility] RN Member Role: Primary Care Nurse Name: Ambreen Mcmahon RN Position: [facility] RN Member Role: Primary Care Nurse Name: Irais Grijalva RN Position: [facility] RN Member Role: Primary Care Nurse Name: Autumn Martinez RN Position: [facility] SN RN Member Role: Primary Care Nurse Name: Liz English RN Position: [facility] RN Member Role: Primary Care Nurse Name: Dora Williamson RN Position: [facility] RN Member Role: Primary Care Nurse Care Team Related Persons Name: KHUSHI CUNNINGHAM Address: [address] [place] [address] Name: BHUPINDER VENEGAS Address: [address] [place] [address] Name: FELIPE FLORES Address: home [address] [place] [address] Name: ARNAV FLORES Address: home [address] [place] [address] Name: IRINA FLORES Address: [address] [place] [address] Name: RUSLAN FLORES Address: home [address] [place] [address] Name: KAISER PLUNKETT Address: home [address] [place] [address]
--- OUTSIDE RECORDS SUMMARY | 2022-08-17 08:28 | XMS_ITS | Continuity of Care Document ---
Author Name Unknown Organization [facility] Address [address] [place] [address]- Care Team Providers Care Product Safety Administrator Name Role Phone Sue Barillas NP Primary Care Physician Encounter [facility] Date(s): 02/19/22 - 02/26/22 [facility] [address] [place] [address]- Encounter Diagnosis Productive cough(Discharge Diagnosis) - 02/19/22 Upper respiratory infection(Discharge Diagnosis) - 02/19/22 Attending Physician: Kota Hill DO Referring Physician: Sue Barillas NP Allergies, Adverse Reactions, Alerts Substance Reaction Severity Status Dust Allergy to pollen Active Pollen seasonal allergies respiratory symptoms Active Incruse Ellipta 1 lightheaded and migraine Active 1dizzy Immunizations Given and Recorded Vaccine Date Status Refusal Reason [id number] 12y+ bivalent booster vax 1 12/24/21 Given [...] vaccine, inactivated 02/08/11 Give n SARS-CoV-2 mRNA ([id number]-[id number]-[id number]) vax 05/01/21 Recorded zoster vaccine, inactivated 11/03/20 [...] tetanus-diphtheria toxoids (Td) 08/03/05 Given 1Result Comment: [id number] 2Result Comment: [id number] 3Result Comment: [12/07/2017] [address]-52 4Result Comment: [12/21/2016] [facility]: [id number] 5Result Comment: [06/10/2015] #3 6Admin Note: per pt 7Admin Note: given in clinic Medications acarbose 25 mg oral tablet See Instructions, 1 tablet with 50 mg (total 75 mg) By Mouth before lunch, # 30 each, 11 Refills, Maintenance, 11/03/21 8:24:00 EDT, Tablet, [facility], 158, cm, 11/03/21 8:01:00EDT, Height, 71.5, kg, 09/01/21 16:21:00 EDT, Dry W... Start Date: 11/03/21 Status: Ordered acetaminophen 500 mg oral tablet 2 tablet = 1,000 mg, By Mouth, Every 6 hours, PRN as needed for fever, # 200 tablet, 0 Refills, Maintenance, 12/03/21 10:17:00 EDT, Tablet, [facility], Partial fill upon patient request if the prescription is for a schedule II opi... Start Date: 12/03/21 Status: Ordered Albuterol (Eqv-ProAir HFA) 90 mcg/inh inhalation aerosol 2 puffs, Inhalation, Every 4 hours, PRN NEEDED FOR WHEEZING, # 8.5 Gm, 1 Refills, Maintenance, 12/03/21 14:16:00 EDT, [facility], 18, INHALE TWO PUFFS EVERY 4 HOURS NEEDED FOR WHEEZING, 163, cm, 12/03/21 9:39:00 EDT, Height,... Start Date: 12/03/21 Status: Ordered calcium (as citrate)-vitamin D 315 mg-250 intl units oral tablet 2 tablet, By Mouth, 2 times a day, # 120 tablet, 6 Refills, Maintenance, 11/03/21 8:23:00 EDT, Tablet, [facility], 2 tablet By Mouth [...] Refills, Maintenance, 11/22/21 9:49:00 EDT, CR Capsule, [facility], Partial fill upon patient request if the prescription is for a schedule II opioid... Start Date: 11/22/21 Status: Ordered Emgality Prefilled Pen 120 mg/mL subcutaneous solution = 120 mg, Subcutaneous Injection, Once, Maintenance Dose, # 1 kit, 6 Refills, Soft Stop, 02/08/22 9:15:00 EST, [facility], Partial fill upon patient request if the prescription is for a schedule II opioid drug., 163, cm, 02/08/22... Start Date: 02/08/22 Status: Ordered EPINEPHrine 1 mg/mL injectable solution 0.3 mL = 0.3 mg, Intramuscular, Once, # 1 mL, 1 Refills, Soft Stop, 03/08/21 15:07:00 EST, Solution, [facility], Partial fill upon patient request if the prescription is for a schedule II opioid drug., 158, cm, 03/08/21 12:18:00 E... Start Date: 03/08/21 Status: Ordered famotidine 40 mg oral tablet 1 tablet = 40 mg, By Mouth, 2 times a day, # 60 tablet, 6 Refills, Maintenance, 01/31/22 14:05:00 EST, Suspension, [facility], Partial fill upon patient [...] 11/14/21 11:28:00 EDT, Route to Pharmacy Electronically, [facility], 158, cm, 11/03/21 8:01:00 EDT, Height, 71.5, kg, 09/01/21 16:21:00 EDT, Start Date: 11/14/21 Status: Ordered Nurtec ODT 75 mg oral tablet, disintegrating See Instructions, TAKE ONE TABLET DAILY NEEDED FOR migraines, DO NOT EXCEED ONE TABLET IN 24 HOURS, # 8 tablet, 6 Refills, Maintenance, 12/28/21 15:14:00 EDT, [facility], 163,cm, 12/24/21 8:20:00 EDT, [...] 11/23/21 19:57:00 EDT, Route to Pharmacy Electronically, NCPDP_[id number], [facility], 158, cm, 11/03/21 8:0... [...] 5 Refills, Maintenance, 12/10/21 9:44:00 EDT, Tablet, [facility], Partial fill upon patient [...] Active Vitamin D deficiency Confirmed Active 1gyn 01790 3testing negative insulinoma 4likley dumping sydrome 5abnormal GTT ;sugar 36 two hours into test 6normal CT brain 7new 8resolved after weight loss 9chronic perst 105.3 cm,right per ct scan recent;seeing gynecology soon;they will review 11vit d deficiency;correct 860857 13per endocrinology monitor 14correction refer GTT; 2 hour glucose 36 15refer GGT 16seeing ortho;pre op 17asma,ama neg/cerulopalsmain wnl,AAT wnl 18Negative hep A antibody positive hep B surface antibody negative antigen negative hep C, normal ferritin 19ukltrasound Diagnosis Diagnosis Type Effective Dates Health Status Clinical Service Informant Productive cough Discharge Diagnosis 02/19/22 Upper respiratory infection Discharge Diagnosis 02/19/22 Vital Signs Most recent to oldest [Reference Range]: 1 Height 163 cm (02/19/22 8:10 AM) Oxygen Saturation [94-100 %] 97 % (02/19/22 8:10 AM) Pulse Rate [55-90 bpm] 78 bpm (02/19/22 8:10 AM) Blood Pressure [90-138/55-84 mm Hg] 119/ 75mm Hg (02/19/22 8:10 AM) Respiratory Rate [16-30 br/min] 21 br/mi n (02/19/22 8:10 AM) Temperature [96.8-100.4 DegF] 96.8 DegF (02/19/22 8:10 AM) Mode of Delivery (Oxygen) Room air (02/19/22 8:10 AM) Blood pressure sites Arm, left (02/19/22 8:10 AM) Temperature Route Temporal (02/19/22 8:10 AM) Social History Social History Type Response Smoking Status Never smoker entered on: 02/20/13 Sex Note * Halley Jimenes: PERFORM, SIGN, VERIFY Event Display: Patient Education/Instruction Authored Date: [id number] [facility] *[facility] Clinical Summary Name HERNAN FLORES Age 51 Years 1970 PCP Eran TIP BANDER, Sue Dahl PCP Visit Date 02/19/2022 08:07:00 Additional Instructions: Scheduled Appointments?? Future Appointments ?*[facility] ?[address],??[place],??[address] ?Phone:??--?Fax:??-- ?Appt. Date:??02/25/2022?9:30 AM ?Scheduled Provider:??Erna JOHNSON , Sue Galvan ?*[facility] ?[address]??[place],??[place],??[address] ?Phone:??--?Fax:??-- ?Appt. Date:??04/29/2022?8:45 AM ?Scheduled Provider:??Abby LANDRUM, Yulisa Follow-Up Instructions ?? Diagnosis Acute upper respiratory infection, unspecified; Other specified cough Medications: Please continue your medications until treatment is completed or stopped by your provider. Discuss any questions related to medications with your provider. Medications to Continue with No Changes These medications were not printed or sent to your pharmacy Acarbose (acarbose 25 mg oral tablet) 1 tablet with 50 mg (total 75 mg) By Mouth before lunch. Refills: 11. Next Dose: Acarbose (acarbose 50 mg oral tablet) 1 tablet with 25 mg (total 75 mg) By Mouth before lunch. Refills: 11. Next Dose: Acetaminophen (acetaminophen 500 mg oral tablet) 2 tab(s) Oral every 6 hours as needed as needed for fever. Refills: 0. Next Dose: Albuterol (Albuterol (Eqv-ProAir HFA) 90 mcg/inh inhalation aerosol) 2 puff(s) Inhalation every 4 hours as needed NEEDED FOR WHEEZING. Refills: 1. Next Dose: Budesonide-Formoterol (Symbicort 160mcg/4.5mcg Inhaler) 2 puff(s) Inhalation twice a day. rinse mouth and throat after use. Refills: 3. Next Dose: Calcium And Vitamin D Combination (calcium (as citrate)-vitamin D 315 mg-250 intl units oral tablet) 2 tab(s) Oral twice a day. Refills: 6. Next Dose: Cetirizine (ZyrTEC 10 mg oral tablet) 1 tab(s) Oral Daily. Replaces Claritin. Can give 90 day supply. Refills: 5. Next Dose: Clonazepam (clonazePAM 1 mg oral tablet) 1 tab(s) Oral Daily at Bedtime. Next Dose: Clonazepam (clonazePAM 1 mg oral tablet) 0.5 tab(s) Oral every 6 hours as needed Anxiety. Next Dose: dexlansoprazole (Dexilant 60 mg oral delayed release capsule) 1 capsule Oral twice a day. 30 min before meal. Refills: 5. Next Dose: Durable Medical Equipment (Freestyle Lite Lancets) Use lancets to check blood glucose up to 3x a day. E11.9. Refills: 11. Next Dose: Durable Medical Equipment (Freestyle Lite Monitor) Use glucose meter to check blood glucose up to 3x a day. E11.9. Refills: 0. Next Dose: Durable Medical Equipment (Freestyle Lite Test Strips) Use test strips to check blood glucose up to3x a day, E11.9. Refills: 11. Next Dose: EPINEPHrine (EPINEPHrine 1 mg/mL injectable solution) 0.3 Milliliter Intramuscular once. Refills: 1. Next Dose: Famotidine (famotidine 40 mg oral tablet) 1 tab(s) Oral twice a day for 30 Days. Refills: 6. Next Dose: Gabapentin (gabapentin 300 mg oral capsule) 1 capsule Oral Daily at Bedtime. Next Dose: galcanezumab (Emgality Prefilled Pen 120 mg/mL subcutaneous solution) 120 Milligram Subcutaneous Injection once. Maintenance Dose. Refills: 6. Next Dose: Loratadine (loratadine 10 mg oral tablet) 1 tab(s) Oral Daily. Refills: 0. Next Dose: Miscellaneous Rx (SQ syringe and needle to administer 1cc B12 per PCP) SQ once a week x 8 weeks then once a month there after per PCP. Refills: 1. Next Dose: Montelukast (montelukast 10 mg oral tablet) 1 tab(s) Oral Daily in PM. Refills: 1. Next Dose: nirmatrelvir-ritonavir (Paxlovid 150 mg-100 mg (150 mg-100 mg Dose) oral tablet) Take 3 tablets by mouth twice a day for 5 days GFR avove 60. Refills: 0. Next Dose: rimegepant (Nurtec ODT 75 mg oral tablet, disintegrating) TAKE ONE TABLET DAILY NEEDED FOR migraines, DO NOT EXCEED ONE TABLET IN 24 HOURS. Refills: 6. Next Dose: vortioxetine (Trintellix 10 mg oral tablet) 1 tab(s) Oral Daily. Next Dose: Zoledronic Acid (Reclast) 5 Milligram Intravenous Infusion once. Next Dose: Allergy Info:?? Incruse Ellipta; Pollen; Dust Medications Given This Visit Future Orders ?No future orders Vital Signs Height 163 cm Weight BMI Blood Pressure 119 mm Hg/75 mm Hg Temperature 96.8 DegF Pulse Rate 78 bpm Respiratory Rate 21 br/min 02 Sat Mode of Delivery 97 %/Room air You can now view a summary of your hospital visit from the comfort of your home through a free online portal called [facility]. [employer] is a website that allows you to securely view your medical information including discharge summary, medications and follow-up visits. ??You can alsosend a secure electronic message to your doctor???s office to request appointments, renew medications or just ask a question. You can enroll at [email or web address] or register during your next office visit. Disclaimer:?? The information provided is of a general nature and is intended to be used in conjunction with the recommendations and advice of your health care practitioner. ??Every effort has been made to ensure that the information provided is accurate and complete at the time it is provided to you however, as your needs change, or, as new ??information becomes available, different or additional instructions may be required. If you have questions, please consult with your primary care provider or pharmacist, as appropriate. ??This information is not intended to serve as substitution for assessment and evaluation by a qualified health care provider. If you do not have a primary care provider, you may find a [facility] provider by calling [facility] Link at [phone]. For information about the plan of care including goals and instructions for your diagnosis, please see the patient education orders section of this document. Patient Education Materials?? The content of this educational material or handout may have been modified, supplemented, or adapted from its original content and format to support your individualized medical care. Patient Care team information Care Team Personnel Name: Caitlyn Mcgee RN Position: [facility] RN Member Role: Primary Care Nurse Name: Sue Barillas NP Position: [facility] PCO Associate Professional Member Role: PCP Address: Address: [address] [place] [id number] Name: Andria Guadalupe RN Position: [facility] SN RN Member Role: Primary Care Nurse Name: Liz Martin RN Position: [facility] RN Member Role: Primary Care Nurse Name: Ambreen Mcmahon RN Position: [facility] RN Member Role: Primary Care Nurse Name: Irais Grijalva RN Position: [facility] RN Member Role: Primary Care Nurse Name: Autumn Martinez RN Position: [facility] SN RN Member Role: Primary Care Nurse Name: Concha Mckinley RN Position: [facility] RN Member Role: Primary Care Nurse Name: Liz English RN Position: [facility] RN Member Role: Primary Care Nurse Name: Dora Williamson RN Position: [facility] RN Member Role: Primary Care Nurse Care Team Related Persons Name: KHUSHI CUNNINGHAM Address: [address] [place] [address] Name: BHUPINDER EVNEGAS Address: [address] [place] [address] Name: FELIPE FLORES Address: home [address] [place], [place] Name: ARNAV FLORES Address: home [address] [place], [place] Name: IRINA FLORES Address: home [address] [place] [address] Name: RUSLAN FLORES Address: home [address] [place], [place] Name: KAISER PLUNKETT Address: home [address] [place] [address]
--- OUTSIDE RECORDS SUMMARY | 2022-08-17 08:28 | XMS_ITS | Continuity of Care Document ---
Author Name Unknown Organization [facility] Address [address] [place] [address]- Care Team Providers Care Investment Executive Name Role Phone Louisa LANDRUM, Taras Fuentes Primary Care Physician Encounter [facility] [place] [facility] Date(s): 02/05/19 - 02/15/19 [facility] [address] [place] [address]- [facility] Attending Physician: Konrad Curtis Admitting Physician: AdmKonrad [...] toxoids (Td) 08/03/05 Given 1Result Comment: [12/07/2017] [id number] 2Result Comment: [12/21/2016] [facility]: [id number] 3Result Comment: [06/10/2015] #3 4Admin Note: per [...] Tot. Refills 11, Maintenance, DX:J45.909 ASTHMA FAX [id number], 12/21/17 11:58:59 EDT, Compound Start Date: 12/21/17 [...] 14:19:44 EST, Aerosol, Route to Pharmacy Electronically, NCPDP_[id number], [facility] Start Date: 03/19/18 Status: [...] 05/12/17 8:15:18, Aerosol, Route to Pharmacy Electronically, NCPDP_[id number], [facility]... Start Date: 05/12/17 Status: Ordered tiZANidine 2 [...] perst 3folowed by mental health;recent hospitalization 4gyn 22080 6testing negative insulinoma 7likley dumping sydrome 8abnormal GTT ;sugar 36 two hours into test 9sees gi 10normal CT brain 11new 125.3 cm,right per ct scan recent;seeing gynecology soon;they will review 13vit d deficiency;correct 588186 15per endocrinology monitor 16correction refer GTT; 2 hour glucose 36 17refer GGT 18seeing ortho;pre op 19asma,ama neg/cerulopalsmain wnl,AAT wnl 20Negative hep A antibody positive hep B surface antibody negative antigen negative hep C, normal ferritin 21ukltrasound Social History Social History Type Response Smoking Status Never smoker entered on: 02/20/13 Sex
--- OUTSIDE RECORDS SUMMARY | 2022-08-17 08:29 | XMS_ITS | Continuity of Care Document ---
Author Name Unknown Organization [facility] Address [address] [place] [address] ve [address] [place] [address]- Care Team Providers Care Supervisor Train Operations Name Role Phone Sue Barillas NP Primary Care Physician Encounter [facility] Date(s): 02/25/22 - 03/04/[address] [place] [address]- Attending Physician: Not on Staff, Attending MD Referring Physician: Sue Barillas NP Allergies, Adverse Reactions, Alerts Substance Reaction Severity Status Dust Allergy to pollen Active Pollen seasonal allergies respiratory symptoms Active Incruse Ellipta 1 lightheaded and migraine Active 1dizzy Immunizations Given and Recorded Vaccine Date Status Refusal Reason [id number] 12y+ bivalent booster vax 1 12/24/21 Given [...] vaccine, inactivated 02/08/11 Give n SARS-CoV-2 mRNA (cuzrsvg-tfwk-utwjp) vax 05/01/21 Recorded zoster vaccine, inactivated 11/03/20 [...] tetanus-diphtheria toxoids (Td) 08/03/05 Given 1Result Comment: [id number] 2Result Comment: 55397-252-25 3Result Comment: [12/07/2017] [address]20[address]-20 4Result Comment: [12/21/2016] [facility]: [id number] 5Result Comment: [06/10/2015] #3 6Admin Note: per pt 7Admin Note: given in clinic Medications acarbose 25 mg oral tablet See Instructions, 1 tablet with 50 mg (total 75 mg) By Mouth before lunch, # 30 each, 11 Refills, Maintenance, 11/03/21 8:24:00 EDT, Tablet, [facility], 158, cm, 11/03/21 8:01:00EDT, Height, 71.5, kg, 09/01/21 16:21:00 EDT, Dry W... Start Date: 11/03/21 Status: Ordered acetaminophen 500 mg oral tablet 2 tablet = 1,000 mg, By Mouth, Every 6 hours, PRN as needed for fever, # 200 tablet, 0 Refills, Maintenance, 12/03/21 10:17:00 EDT, Tablet, [facility], Partial fill upon patient request if the prescription is for a schedule II opi... Start Date: 12/03/21 Status: Ordered Albuterol (Eqv-ProAir HFA) 90 mcg/inh inhalation aerosol 2 puffs, Inhalation, Every 4 hours, PRN NEEDED FOR WHEEZING, # 8.5 Gm, 1 Refills, Maintenance, 12/03/21 14:16:00 EDT, [facility], 18, INHALE TWO PUFFS EVERY 4 HOURS NEEDED FOR WHEEZING, 163, cm, 12/03/21 9:39:00 EDT, Height,... Start Date: 12/03/21 Status: Ordered calcium (as citrate)-vitamin D 315 mg-250 intl units oral tablet 2 tablet, By Mouth, 2 times a day, # 120 tablet, 6 Refills, Maintenance, 11/03/21 8:23:00 EDT, Tablet, [facility], 2 tablet By Mouth 2 [...] Refills, Maintenance, 11/22/21 9:49:00 EDT, CR Capsule, [facility], Partial fill upon patient request if the prescription is for a schedule II opioid... Start Date: 11/22/21 Status: Ordered Emgality Prefilled Pen 120 mg/mL subcutaneous solution = 120 mg, Subcutaneous Injection, Once, Maintenance Dose, # 1 kit, 6 Refills, Soft Stop, 02/08/22 9:15:00 EST, [facility], Partial fill upon patient request if the prescription is for a schedule II opioid drug., 163, cm, 02/08/22... Start Date: 02/08/22 Status: Ordered EPINEPHrine 1 mg/mL injectable solution 0.3 mL = 0.3 mg, Intramuscular, Once, # 1 mL, 1 Refills, Soft Stop, 03/08/21 15:07:00 EST, Solution, [facility], Partial fill upon patient request if the prescription is for a schedule II opioid drug., 158, cm, 03/08/21 12:18:00 E... Start Date: 03/08/21 Status: Ordered famotidine 40 mg oral tablet 1 tablet = 40 mg, By Mouth, 2 times a day, # 60 tablet, 6 Refills, Maintenance, 01/31/22 14:05:00 EST, Suspension, [facility], Partial fill upon [...] 11/14/21 11:28:00 EDT, Route to Pharmacy Electronically, [facility], 158, cm, 11/03/21 8:01:00 EDT, Height, 71.5, kg, 09/01/21 16:21:00 EDT, Start Date: 11/14/21 Status: Ordered Nurtec ODT 75 mg oral tablet, disintegrating See Instructions, TAKE ONE TABLET DAILY NEEDED FOR migraines, DO NOT EXCEED ONE TABLET IN 24 HOURS, # 8 tablet, 6 Refills, Maintenance, 12/28/21 15:14:00 EDT, [facility], 163,cm, 12/24/21 8:20:00 EDT, Height, [...] 11/23/21 19:57:00 EDT, Route to Pharmacy Electronically, NCPDP_[id number], [facility], 158, cm, 11/03/21 8:0... Start [...] 5 Refills, Maintenance, 12/10/21 9:44:00 EDT, Tablet, [facility], Partial [...] Active Vitamin D deficiency Confirmed Active 1gyn 62959 3testing negative insulinoma 4likley dumping sydrome 5abnormal GTT ;sugar 36 two hours into test 6normal CT brain 7new 8resolved after weight loss 9chronic perst 105.3 cm,right per ct scan recent;seeing gynecology soon;they will review 11vit d deficiency;correct 749884 13per endocrinology monitor 14correction refer GTT; 2 hour glucose 36 15refer GGT 16seeing ortho;pre op 17asma,ama neg/cerulopalsmain wnl,AAT wnl 18Negative hep A antibody positive hep B surface antibody negative antigen negative hep C, normal ferritin 19ukltrasound Vital Signs Most recent to oldest [Reference Range]: 1 Height 163 cm (02/25/22 1:48 PM) Weight 69.4 kg (02/25/22 1:48 PM) Pulse Rate [55-90 bpm] 70 bpm (02/25/22 1:48 PM) Body Mass Index [18.5-24.99 kg/m2] 26.12 kg/m2 *H* (02/25/22 1:48 PM) Blood Pressure [90-138/55-84 mm Hg] 116/ 81mm Hg (02/25/22 1:48 PM) Respiratory Rate [16-30 br/min] 16 br/mi n (02/25/22 1:48 PM) Temperature [96.8-100.4 DegF] 98.0 DegF (02/25/22 1:48 PM) Blood pressure sites Arm, right (02/25/22 1:48 PM) Temperature Route Temporal (02/25/22 1:48 PM) Weight Obtained Via Standing scale (02/25/22 1:48 PM) Social History Social History Type Response Smoking Status Never smoker entered on: 02/20/13 Sex Patient Care team information Care Team Personnel Name: Caitlyn Mcgee RN Position: [facility] RN Member Role: Primary Care Nurse Name: Sue Barillas NP Position: [facility] PCO Associate Professional Member Role: PCP Address: Address: [address] [place] [address]- Name: Andria Guadalupe RN Position: [facility] RN Member Role: Primary Care Nurse Name: Liz Martin RN Position: [facility] RN Member Role: Primary Care Nurse Name: Ambreen Mcmahon RN Position: [facility] RN Member Role: Primary Care Nurse Name: Irais Grijalva RN Position: [facility] RN Member Role: Primary Care Nurse Name: Autumn Martinez RN Position: [facility] SN RN Member Role: Primary Care Nurse Name: Concha Mckinley RN Position: [facility] RN Member Role: Primary Care Nurse Name: Liz English RN Position: [facility] RN Member Role: Primary Care Nurse Name: Dora Williamson RN Position: [facility] RN Member Role: Primary Care Nurse Care Team Related Persons Name: KHUSHI CUNNINGHAM Address: home [address] [place] [address] Name: BHUPINDER VNEEGAS Address: [address] [place] [address] Name: FELIPE FLORES Address: home [address] [place] [address] Name: ARNAV FLORES Address: home [address] [place] [address] Name: IRINA FLORES Address: home [address] [place] [address] Name: RUSLAN FLORES Address: home [address] [place] [address] Name: KAISER PLUNKETT Address: home [address] [place] [address]
--- OUTSIDE RECORDS SUMMARY | 2022-08-17 08:29 | XMS_ITS | Continuity of Care Document ---
Author Name Unknown Organization [facility] Address [address] [place] [address]- Care Team Providers Care Charrer Name Role Phone Louisa LANDRUM, Taras Fuentes Primary Care Physician [place] [facility] [place]13[place]20 [facility] [address] [place] [address]- Attending Physician: Eran DRIVER SALESMAN, Sue Dahl Allergies, Adverse Reactions, Alerts Substance [...] toxoids (Td) 08/03/05 Given 1Result Comment: [12/07/2017] [address]-68 2Result Comment: [12/21/2016] [facility]: 78068-650-92 3Result Comment: [06/10/2015] #3 4Admin Note: per pt 5Admin Note: given in clinic Medications acarbose 25 mg oral tablet 1 tablet = 25 mg, By Mouth, 3 times a day, Take 1 tablet 3 times daily with meals. Add to 50mg dosefor total of 75mg 3 times daily. E11.65, # 270 tablet, 3 Refills, Maintenance, 07/15/20 12:23:00 EDT, Tablet, [facility], Partial... Start Date: 07/15/20 Status: Ordered acarbose 50 mg oral tablet 1 tablet = 50 mg, By Mouth, 3 times a day, Take 3 times daily with meals. E11.65, # 90 tablet, 5 Refills, Maintenance, 07/13/20 16:29:00 EDT, Tablet, [facility], Partial fill upon patient [...] 0 Refills, Maintenance, 07/03/19 13:59:00 EDT, Solution, [facility], 160, cm, 05/29/19 13:36:00 [...] 30 tablet, 5 Refills, Maintenance, 07/22/20 8:03:00EDT, [facility], Partial fill upon patient [...] 60 capsule, 5 Refills, Maintenance, 05/07/20 15:54:00EST, [facility], 160.02, cm, 05/01/20 9:18:00 [...] 1 Refills, Soft Stop, 11/20/19 11:59:00 EDT, [facility], 160.02, cm, 11/15/19 10:05:00 [...] 02/25/19 16:55:00 EST, Route to Pharmacy Electronically, [facility], 158, cm, 02/14/19 7:55:00 EST, Height, 61.9, kg, 02/12/19 10:17:00... Start Date: 02/25/19 Status: Ordered montelukast 10 mg oral tablet 10 mg, 1, tablet, By Mouth, Daily in PM, # 90 tablet, Refills 3, Tot. Refills 3, Maintenance, 08/15/19 16:21:00 EDT, Route to Pharmacy Electronically, [facility], 160, cm, 08/15/19 13:45:00 EDT, Height, 56.5, kg, 05/29/19 13:36:00... Start Date: 08/15/19 Status: Ordered ProAir HFA 90 mcg/inh inhalation aerosol with adapter 2, puffs, Inhalation, Every 4 hours, PRN, # 8.5 Gm, Refills 2, Tot. Refills 2, Maintenance, 04/29/19 11:32:00 EST, Aerosol, Route to Pharmacy Electronically, NCPDP_[id number], [facility], 160, cm, 04/29/19 10:47:00 EST, Height... Start Date: 04/29/19 Status: Ordered rifAXIMin 550 mg oral tablet 1 tablet = 550 mg, By Mouth, 3 times a day, # 42 tablet, 0 Refills, Maintenance, 07/14/20 13:37:00 EDT, Tablet, [facility], Partial fill upon patient request if the prescription is for a schedule II opioid drug., 158.02, cm, 07/06... Start Date: 07/14/20 Stop Date: 07/28/20 Status: Ordered Topamax 50 mg oral tablet 2 tablet = 100 mg, By Mouth, Daily at bedtime, # 60 tablet, 6 Refills, Maintenance, 08/04/20 11:44:00 EDT, Tablet, [facility], 158.02, cm, 07/06/20 6:49:00 [...] 6 Refills, Soft Stop, 08/04/20 11:37:00 EDT, [facility], Partial fill upon patient [...] 0 Refills, Maintenance, 06/13/20 14:10:00 EDT, Capsule, [facility],... Start Date: 06/13/20 Status: [...] 1resolved after weight loss 2chronic perst 3gyn 13777 5testing negative insulinoma 6likley dumping sydrome 7abnormal GTT ;sugar 36 two hours into test 8sees gi 9normal CT brain 10new 115.3 cm,right per ct scan recent;seeing gynecology soon;they will review 12vit d deficiency;correct [id number] 14per endocrinology monitor 15correction refer GTT; 2 hour glucose 36 16refer GGT 17seeing ortho;pre op 18asma,ama neg/cerulopalsmain wnl,AAT wnl 19Negative hep A antibody positive hep B surface antibody negative antigen negative hep C, normal ferritin 20ukltrasound Social History Social History Type Response Smoking Status Never smoker entered on: 02/20/13 Sex
--- OUTSIDE RECORDS SUMMARY | 2022-08-17 08:29 | XMS_ITS | Continuity of Care Document ---
Author Name Unknown Organization [facility] Address Unknown Care Team Providers Care Steel Floor Pan Placing Supervisor Name Role Phone Sue Barillas NP Primary Care Physician Encounter [facility] [place](s): 05/24/21 - 05/31/21 [facility] Encounter Diagnosis Abdominal pain(Discharge Diagnosis) - 05/24/21 Attending Physician: Avery Costello MD Referring Physician: Sue Barillas NP Allergies, Adverse Reactions, Alerts Substance Reaction Severity Status Dust Allergy to pollen Active Pollen seasonal allergies respiratory symptoms Active Incruse Ellipta 1 lightheaded and migraine Active 1dizzy Immunizations Given and Recorded Vaccine Date Status Refusal Reason SARS-CoV-2 mRNA (higbsgd-liis-jhzkn) vax 05/01/21 Recorded influenza virus vaccine, inactivated [...] toxoids (Td) 08/03/05 Given 1Result Comment: [12/07/2017] [id number] 2Result Comment: [12/21/2016] [facility]: [id number] 3Result Comment: [06/10/2015] #3 4Admin Note: per [...] 3 Refills, Maintenance, 02/03/21 8:34:00 EST, Tablet, [facility], Partial fill upon patient request if the prescript... Start Date: 02/03/21 Status: Ordered acarbose 50 mg oral tablet 1 tablet = 50 mg, By Mouth, 3 times a day, Take 1 tab (plus 1 25mg tab), 3 times daily with meals.,# 270 tablet, 3 Refills, Maintenance, 02/03/21 8:34:00 EST, Tablet, [facility] [...] Refills, Maintenance, 03/03/21 16:42:00 EST, REC Powder, [facility] [...] per PCP, # 30 mL, 1 Refills, [facility], 158, cm, 04/09/21 8:13:00 EST, Height, 80.6, kg, 03/08/21 12:18:00 EST, Dry Weight Start Date: 04/30/21 Status: Ordered Dexilant 60 mg oral delayed release capsule 1 capsule = 60 mg, By Mouth, 2 times a day, 30 min before meal, # 60 capsule, 5 Refills, Maintenance, 04/16/21 14:29:00 EST, CR Capsule, [facility], Partial fill upon patient request if the prescription is for a schedule II opioi... Start Date: 04/16/21 Status: Ordered Emgality Prefilled Pen 120 mg/mL subcutaneous solution = 240 mg, Subcutaneous Injection, Once, Loading Dose, # 2 kit, 0 Refills, Soft Stop, 03/16/21 16:05:00 EST, [facility], Partial fill upon patient request if the prescription is for a schedule II opioid drug., 158, cm, 03/11/21 9:1... Start Date: 03/16/21 Status: Ordered EPINEPHrine 1 mg/mL injectable solution 0.3 mL = 0.3 mg, Intramuscular, Once, # 1 mL, 1 Refills, Soft Stop, 03/08/21 15:07:00 EST, Solution, [facility] [...] 1 Refills, Maintenance, 04/06/21 9:45:00 EST, Solution, [facility], Partial fill upon patient request if the prescription is for a schedule II opioid drug.... Start Date: 04/06/21 Status: Ordered loratadine 10 mg oral tablet 10 mg, 1, tablet, By Mouth, Daily, # 90 tablet, Refills 0, Tot. Refills 0, Maintenance, 05/24/21 11:12:00 EDT, Route to Pharmacy Electronically, [facility], 158, cm, 05/14/21 7:52:00 EST, Height, 80.6, kg, 03/08/21 12:18:00 EST, D... Start Date: 05/24/21 Status: Ordered meclizine 25 mg oral tablet See Instructions, PRN for dizziness, Take 1 tablet every 8 hours as needed for dizziness, # 15 tablet, 0 Refills, Maintenance, 11/03/20 7:49:00 EDT, Tablet, [facility], Partial fill upon patient request if the prescription is for... Start Date: 11/03/20 Status: Ordered montelukast 10 mg oral tablet 10 mg, 1, tablet, By Mouth, Daily in PM, # 90 tablet, Refills 1, Tot. Refills 1, Maintenance, 04/23/21 12:32:00 EST, Route to Pharmacy Electronically, [facility], 158, cm, 04/09/21 8:13:00 EST, [...] 6 Refills, Maintenance, 12/10/20 12:36:00 EDT,DIS Tablet, [facility], has t... Start Date: 12/10/20 Stop Date: 07/08/21 Status: Ordered Russell 0.65% nasal spray 2 sprays, Nares, Both, 4 times a day, # 1 each, 3 Refills, Maintenance, 05/14/21 11:40:00 EST, [facility] [...] 19:25:00 EST, Aerosol, Route to Pharmacy Electronically, NCPDP_[id number], [facility], 158, cm, 05/06/21 6:58:00 EST, Height, [...] Gm, Refills 11, Route to Pharmacy Electronically, NCPDP_[id number], [facility], 158.02, cm, 11/13/20 8:38:00 EDT, Height, [...] 1resolved after weight loss 2chronic perst 3gyn 82038 5testing negative insulinoma 6likley dumping sydrome 7abnormal GTT ;sugar 36 two hours into test 8sees gi 9normal CT brain 10new 115.3 cm,right per ct scan recent;seeing gynecology soon;they will review 12vit d deficiency;correct 636681 14per endocrinology monitor 15correction refer GTT; 2 hour glucose 36 16refer GGT 17seeing ortho;pre op 18asma,ama neg/cerulopalsmain wnl,AAT wnl 19Negative hep A antibody positive hep B surface antibody negative antigen negative hep C, normal ferritin 20ukltrasound Diagnosis Diagnosis Type Effective Dates Health Status Cl inical Service Informant Abdominal pain Discharge Diagnosis 05/24/21 Vital Signs Most recent to oldest [Reference Range]: 1 Height 158 cm (05/24/21 4:05 PM) Weight 78.1 kg (05/24/21 4:05 PM) Pulse Rate [55-90 bpm] 72 bpm (05/24/21 4:05 PM) Body Mass Index [18.5-24.99] 31.29 *>HHI* (05/24/21 4:05 PM) Blood Pressure [90-138/55-84 mm Hg] 136/ 84mm Hg (05/24/21 4:05 PM) Respiratory Rate [16-30 br/min] 16 br/mi n (05/24/21 4:05 PM) Temperature [96.8-100.4 DegF] 98 DegF (05/24/21 4:05 PM) Blood pressure sites Arm, right (05/24/21 4:05 PM) Temperature Route Temporal (05/24/21 4:05 PM) Weight Obtained Via Standing scale (05/24/21 4:05 PM) Social History Social History Type Response Smoking Status Never smoker entered on: 02/20/13 Sex
--- OUTSIDE RECORDS SUMMARY | 2022-08-17 08:29 | XMS_ITS | Continuity of Care Document ---
Author Name Unknown Organization [facility] Address [address] [place] [id number]- Care Team Providers Care Straddle Bug Driver Name Role Phone Taras Jasso MD Primary Care Physician Encounter [facility] [place] Date(s): 07/07/20 - 10/02/20 [facility] [address] [place] [id number]- Encounter Diagnosis Osteoporosis(Discharge Diagnosis) - 09/02/20 Attending Physician: Sunita Tanner MD Admitting Physician: Sunita Tanner MD Referring Physician: Taras Jasso MD Allergies, [...] toxoids (Td) 08/03/05 Given 1Result Comment: [12/07/2017] [id number] 2Result Comment: [12/21/2016] [facility]: [id number] 3Result Comment: [06/10/2015] #3 4Admin Note: per pt 5Admin Note: given in clinic Medications acarbose 50 mg oral tablet 1 tablet = 50 mg, By Mouth, 3 times a day, Take 3 times daily with meals. E11.65, # 90 tablet, 5 Refills, Maintenance, 07/13/20 16:29:00 EDT, Tablet, [facility], Partial [...] 30 tablet, 5 Refills, Maintenance, 07/22/20 8:03:00EDT, [facility], Partial fill upon [...] 0 Refills, Maintenance, 08/27/20 9:45:00 EDT, Capsule, [facility], Partial fill upon patient request if the prescription is for a schedule II opioid drug., 158.02, cm, 08/27/20 9:2... Start Date: 08/27/20 Stop Date: 09/26/20 Status: Ordered ProAir HFA 90 mcg/inh inhalation aerosol with adapter 2, puffs, Inhalation, Every 4 hours, PRN, # 8.5 Gm, Refills 2, Tot. Refills 2, Maintenance, 04/29/19 11:32:00 EST, Aerosol, Route to Pharmacy Electronically, NCPDP_[id number], [facility], 160, [...] 6 Refills, Maintenance, 08/04/20 11:44:00 EDT, Tablet, [facility], 158.02, cm, 07/06/20 6:49:00 [...] 6 Refills, Soft Stop, 08/04/20 11:37:00 EDT, [facility], Partial fill [...] 1resolved after weight loss 2chronic perst 3gyn 11567 5testing negative insulinoma 6likley dumping sydrome 7abnormal GTT ;sugar 36 two hours into test 8sees gi 9normal CT brain 10new 115.3 cm,right per ct scan recent;seeing gynecology soon;they will review 12vit d deficiency;correct 461432 14per endocrinology monitor 15correction refer GTT; 2 hour glucose 36 16refer GGT 17seeing ortho;pre op 18asma,ama neg/cerulopalsmain wnl,AAT wnl 19Negative hep A antibody positive hep B surface antibody negative antigen negative hep C, normal ferritin 20ukltrasound Diagnosis Diagnosis Type Effective Dates Health Status Cl inical Service Informant Osteoporosis Discharge Diagnosis 09/02/20 Social History Social History Type Response Smoking Status Never smoker entered on: 02/20/13 Sex
--- OUTSIDE RECORDS SUMMARY | 2022-08-17 08:29 | XMS_ITS | Continuity of Care Document ---
Author Name Unknown Organization [facility] Address [address] [place] [address]- Care Team Providers Care Cardiology Technologist Name Role Phone Louisa LANDRUM, Taras Fuentes Primary Care Physician Encounter [facility] Date(s): 04/01/21 - 05/01/21 [facility] [address] [place] [id number]- [place] Allergies, Adverse Reactions, Alerts Substance Reaction [...] toxoids (Td) 08/03/05 Given 1Result Comment: [12/07/2017] [id number] 2Result Comment: [12/21/2016] [facility][NOTE 3]: 51810-875-04 3Result Comment: [06/10/2015] #3 4Admin Note: per [...] Maintenance, 02/03/21 8:34:00 EST, Tablet, [facility], Partial fill upon patient request if the prescript... Start Date: 02/03/21 Status: Ordered acarbose 50 mg oral tablet 1 tablet = 50 mg, By Mouth, 3 times a day, Take 1 tab (plus 1 25mg tab), 3 times daily with meals.,# 270 tablet, 3 Refills, Maintenance, 02/03/21 8:34:00 EST, Tablet, [facility], Partial fill upon patient request if the prescript... Start Date: 02/03/21 Status: Ordered Baqsimi One Pack 3 mg nasal powder See Instructions, 3 mg Once intrasnasally for severe hypoglycemia, # 2 each, 3 Refills, Soft Stop, 08/28/20 10:36:00 EDT, [facility], Partial fill upon patient request if [...] Maintenance, 11/06/20 10:28:00 EDT, Tablet, [facility], Replaces loratidine, 158.02, cm, 11/06/20 10:04:00 EDT, Height,67, kg, 09/11/19 11:20:00 EDT, Dry Weight Start Date: 11/06/20 Status: Ordered cholestyramine 4 gm/5 gm oral powder for reconstitution 1 pack/packet, By Mouth, Daily, # 30 pack/packet, 5 Refills, Maintenance, 03/03/21 16:42:00 EST, REC Powder, [facility], Partial fill upon patient request if [...] # 30 mL, 1 Refills, [facility], 158, cm, 04/09/21 8:13:00 EST, Height, 80.6, kg, 03/08/21 12:18:00 EST, Dry Weight Start Date: 04/30/21 Status: Ordered Dexilant 60 mg oral delayed release capsule 1 capsule = 60 mg, By Mouth, 2 times a day, 30 min before meal, # 60 capsule, 5 Refills, Maintenance, 04/16/21 14:29:00 EST, CR Capsule, [facility], Partial fill upon patient request if the prescription is for a schedule II opioi... Start Date: 04/16/21 Status: Ordered Emgality Prefilled Pen 120 mg/mL subcutaneous solution = 240 mg, Subcutaneous Injection, Once, Loading Dose, # 2 kit, 0 Refills, Soft Stop, 03/16/21 16:05:00 EST, [facility], Partial fill upon patient request if the prescription is for a schedule II opioid drug., 158, cm, 03/11/21 9:1... Start Date: 03/16/21 Status: Ordered Emgality Prefilled Pen 120 mg/mL subcutaneous solution = 120 mg, Subcutaneous Injection, Once, Maintenance Dose, # 1 kit, 5 Refills, Soft Stop, 03/16/21 16:05:00 EST, [facility], Partial fill upon patient request if the prescription is for a schedule II opioid drug., 158, cm, 03/11/21... Start Date: 03/16/21 Status: Ordered EPINEPHrine 1 mg/mL injectable solution 0.3 mL = 0.3 mg, Intramuscular, Once, # 1 mL, 1 Refills, Soft Stop, 03/08/21 15:07:00 EST, Solution, [facility], Partial fill upon patient request if [...] Soft Stop, 11/20/19 11:59:00 EDT, [facility], 160.02, cm, 11/15/19 10:05:00 EDT, Height, 67, kg, 09/11/19 11:20:00 EDT, Dry Weight Start Date: 11/20/19 Status: Ordered Lidocaine Viscous 2% solution 5 mL = 0.1 Gm, By Mouth, 4 times a day, PRN for epigastric pain, # 200 mL, 1 Refills, Maintenance, 04/06/21 9:45:00 EST, Solution, [facility], Partial fill upon patient request if the prescription is for a schedule II opioid drug.... Start Date: 04/06/21 Status: Ordered Macrobid macrocrystals-monohydrate 100 mg oral capsule 1 capsule = 100 mg, By Mouth, 2 times a day, for 7 days, # 14 capsule, 0 Refills, Acute 05/03/21 17:01:00 EST, 04/26/21 17:01:00 EST, Capsule, [facility], Partial fill upon patient request if the prescription is for a schedule II... Start Date: 04/26/21 Stop Date: 05/03/21 Status: Ordered meclizine 25 mg oral tablet See Instructions, PRN for dizziness, Take 1 tablet every 8 hours as needed for dizziness, # 15 tablet, 0 Refills, Maintenance, 11/03/20 7:49:00 EDT, Tablet, [facility], Partial fill upon patient request if the prescription is for... Start Date: 11/03/20 Status: Ordered montelukast 10 mg oral tablet 10 mg, 1, tablet, By Mouth, Daily in PM, # 90 tablet, Refills 1, Tot. Refills 1, Maintenance, 04/23/21 12:32:00 EST, Route to Pharmacy Electronically, [facility], 158, cm, 04/09/21 8:13:00 EST, Height, [...] Maintenance, 12/10/20 12:36:00 EDT,DIS Tablet, [facility], has t... Start Date: 12/10/20 Stop Date: 07/08/21 Status: Ordered Perry 0.65% nasal spray 2 sprays, Nares, Both, 4 times a day, # 1 each, 0 Refills, Maintenance, 10/30/20 11:34:00 EDT, [facility], Partial fill upon patient request if the prescription is for a scheduleII opioid drug., 2 sprays Nares, Both 4 times a day... Start Date: 10/30/20 Status: Ordered ProAir HFA 90 mcg/inh inhalation aerosol with adapter 2, puffs, Inhalation, Every 4 hours, PRN, # 8.5 Gm, Refills 1, Tot. Refills 1, Maintenance, 01/06/21 8:26:00 EDT, Aerosol, Route to Pharmacy Electronically, NCPDP_[id number], [facility], 158.02, cm, 01/06/21 8:03:00 EDT, Height, 6... Start Date: 01/06/21 Status: Ordered Readi-Cat 2 oral suspension See Instructions, Follow direction for CT, # 2 each, 0 Refills, Maintenance, 04/08/21 16:08:00 EST,[facility], Partial fill upon patient [...] Gm, Refills 11, Route to Pharmacy Electronically, NCPDP_[id number], [facility], 158.02, cm, 11/13/20 8:38:00 EDT, Height, [...] 1resolved after weight loss 2chronic perst 3gyn 15605 5testing negative insulinoma 6likley dumping sydrome 7abnormal GTT ;sugar 36 two hours into test 8sees gi 9normal CT brain 10new 115.3 cm,right per ct scan recent;seeing gynecology soon;they will review 12vit d deficiency;correct 155808 14per endocrinology monitor 15correction refer GTT; 2 hour glucose 36 16refer GGT 17seeing ortho;pre op 18asma,ama neg/cerulopalsmain wnl,AAT wnl 19Negative hep A antibody positive hep B surface antibody negative antigen negative hep C, normal ferritin 20ukltrasound Social History Social History Type Response Smoking Status Never smoker entered on: 02/20/13 Sex
--- OUTSIDE RECORDS SUMMARY | 2022-08-17 08:29 | XMS_ITS | Continuity of Care Document ---
Author Name Unknown Organization [facility] Address [address] [place] [id number]- Care Team Providers Care Retail Analytics Manager Name Role Phone Louisa LANDRUM, Taras Fuentes Primary Care Physician Encounter [facility] Date(s): 04/20/20 - 05/20/20 [facility] [address] [place] [id number] Allergies, Adverse Reactions, Alerts Substance [...] toxoids (Td) 08/03/05 Given 1Result Comment: [12/07/2017] [id number] 2Result Comment: [12/21/2016] [facility]: [id number] 3Result Comment: [06/10/2015] #3 4Admin Note: per [...] 11:32:00 EST, Aerosol, Route to Pharmacy Electronically, NCPDP_[id number], [facility], [...] perst 3folowed by mental health;recent hospitalization 4gyn 44531 6testing negative insulinoma 7likley dumping sydrome 8abnormal GTT ;sugar 36 two hours into test 9sees gi 10normal CT brain 11new 125.3 cm,right per ct scan recent;seeing gynecology soon;they will review 13vit d deficiency;correct 814843 15per endocrinology monitor 16correction refer GTT; 2 hour glucose 36 17refer GGT 18seeing ortho;pre op 19asma,ama neg/cerulopalsmain wnl,AAT wnl 20Negative hep A antibody positive hep B surface antibody negative antigen negative hep C, normal ferritin 21ukltrasound Social History Social History Type Response Smoking Status Never smoker entered on: 02/20/13 Sex
--- OUTSIDE RECORDS SUMMARY | 2022-08-17 08:29 | XMS_ITS | Continuity of Care Document ---
Author Name Unknown Organization [facility] ter Address [address] [place] [id number]- Care Team Providers Care Station Supervisor Name Role Phone Eran Sue JOHNSON Primary Care Physician Encounter [facility] Date(s): 09/07/21 - 10/07/[address] [id number] Attending Physician: Not on Staff, Attending MD Admitting Physician: Not on Staff, Admitting MD Referring Physician: Not on Staff, Referring MD Allergies, Adverse Reactions, Alerts Substance Reaction Severity Status Dust Allergy to pollen Active Pollen seasonal allergies respiratory symptoms Active Incruse Ellipta 1 lightheaded and migraine Active 1dizzy Immunizations Given and Recorded Vaccine Date Status Refusal Reason SARS-CoV-2 mRNA (hgckizy-csxv-jbwdi) vax 05/01/21 Recorded influenza virus vaccine, inactivated [...] toxoids (Td) 08/03/05 Given 1Result Comment: [12/07/2017] [id number] 2Result Comment: [12/21/2016] [facility] [place]NOTE 2]: [id number] 3Result Comment: [06/10/2015] #3 4Admin Note: per pt 5Admin Note: given in clinic Medications acarbose 25 mg oral tablet 1 tablet = 25 mg, By Mouth, 3 times a day, Take 1 tab (plus 1 50mg tab), 3 times daily with meals.,# 270 tablet, 3 Refills, Maintenance, 02/03/21 8:34:00 EST, Tablet, [facility], Partial fill upon patient request if the prescript... Start Date: 02/03/21 Status: Ordered acarbose 50 mg oral tablet 1 tablet = 50 mg, By Mouth, 3 times a day, Take 1 tab (plus 1 25mg tab), 3 times daily with meals.,# 270 tablet, 3 Refills, Maintenance, 02/03/21 8:34:00 EST, Tablet, [facility], Partial fill upon [...] constipation, 08/23/21 8:22:00 EDT, Route to Pharmacy Electronically,[facility], Partial fill upon patient... Start Date: 08/23/21 Status: Ordered Dexilant 60 mg oral delayed release capsule 1 capsule = 60 mg, By Mouth, 2 times a day, 30 min before meal, # 60 capsule, 5 Refills, Maintenance, 04/16/21 14:29:00 EST, CR Capsule, [facility], Partial fill upon patient request if the prescription is for a schedule II opioi... Start Date: 04/16/21 Status: Ordered Emgality Prefilled Pen 120 mg/mL subcutaneous solution = 120 mg, Subcutaneous Injection, Once, Maintenance Dose, # 1 kit, 6 Refills, Soft Stop, 06/29/21 10:09:00 EDT, [facility], Partial fill upon patient request if the prescription is for a schedule II opioid drug., 158, cm, 06/29/21... Start Date: 06/29/21 Status: Ordered EPINEPHrine 1 mg/mL injectable solution 0.3 mL = 0.3 mg, Intramuscular, Once, # 1 mL, 1 Refills, Soft Stop, 03/08/21 15:07:00 EST, Solution, [facility], Partial fill upon [...] 09/17/21 14:13:00 EDT, Route to Pharmacy Electronically, [facility], 158, cm, 09/16/21 9:43:00 EDT, Height, 71.5, kg, 09/01/21 16:21:00 EDT, D... Start Date: 09/17/21 Status: Ordered meclizine 25 mg oral tablet See Instructions, PRN for dizziness, Take 1 tablet every 8 hours as needed for dizziness, # 15 tablet, 0 Refills, Maintenance, 11/03/20 7:49:00 EDT, Tablet, [facility], Partial fill upon patient request if the prescription is for... Start Date: 11/03/20 Status: Ordered montelukast 10 mg oral tablet 10 mg, 1, tablet, By Mouth, Daily in PM, # 90 tablet, Refills 1, Tot. Refills 1, Maintenance, 04/23/21 12:32:00 EST, Route to Pharmacy Electronically, [facility], 158, cm, 04/09/21 [...] 6 Refills, Maintenance, 12/10/20 12:36:00 EDT,DIS Tablet, [facility], has t... Start [...] 1resolved after weight loss 2chronic perst 3gyn [address]362 5testing negative insulinoma 6likley dumping sydrome 7abnormal GTT ;sugar 36 two hours into test 8sees gi 9normal CT brain 10new 115.3 cm,right per ct scan recent;seeing gynecology soon;they will review 12vit d deficiency;correct 876123 14per endocrinology monitor 15correction refer GTT; 2 hour glucose 36 16refer GGT 17seeing ortho;pre op 18asma,ama neg/cerulopalsmain wnl,AAT wnl 19Negative hep A antibody positive hep B surface antibody negative antigen negative hep C, normal ferritin 20ukltrasound Social History Social History Type Response Smoking Status Never smoker entered on: 02/20/13 Sex
--- OUTSIDE RECORDS SUMMARY | 2022-08-17 08:29 | XMS_ITS | Continuity of Care Document ---
Author Name Unknown Organization [facility] lt Address [address] [place] [address]- Care Team Providers Care Meter Calibrator Name Role Phone Louisa LANDRUM, Taras Fuentes Primary Care Physician [place] [facility] [place] 09/26/20 [facility] [address] [place] [address]- Allergies, Adverse Reactions, Alerts Substance Reaction Severity [...] toxoids (Td) 08/03/05 Given 1Result Comment: [12/07/2017] [id number] 2Result Comment: [12/21/2016] [facility]: [id number] 3Result Comment: [06/10/2015] #3 4Admin Note: per pt 5Admin Note: given in clinic Medications acarbose 50 mg oral tablet 1 tablet = 50 mg, By Mouth, 3 times a day, Take 3 times daily with meals. E11.65, # 90 tablet, 5 Refills, Maintenance, 07/13/20 16:29:00 EDT, Tablet, [facility] 0 Refills, Maintenance, 07/03/19 13:59:00 EDT, Solution, [facility], 160, cm, 05/29/19 13:36:00 EDT, Height, 56.5, kg, 03... Start Date: 07/03/19 Status: Ordered amitriptyline 50 mg oral tablet 1 tablet = 50 mg, By Mouth, Daily at bedtime, # 30 tablet, 5 Refills, Maintenance, 07/22/20 8:03:00EDT, [facility], Partial fill upon patient request if the prescription is for a schedule II opioid drug., 158.02, cm, 07/06/20 6:4... Start Date: 07/22/20 Status: Ordered Baqsimi One Pack 3 mg nasal powder See Instructions, 3 mg Once intrasnasally for severe hypoglycemia, # 2 each, 3 Refills, Soft Stop, 08/28/20 10:36:00 EDT, [facility] [...] 1 Refills, Soft Stop, 11/20/19 11:59:00 EDT, [facility], 160.02, cm, 11/15/19 10:05:00 [...] 02/25/19 16:55:00 EST, Route to Pharmacy Electronically, [facility], 158, cm, 02/14/19 7:55:00 EST, Height, 61.9, kg, 02/12/19 10:17:00... Start Date: 02/25/19 Status: Ordered montelukast 10 mg oral tablet 10 mg, 1, tablet, By Mouth, Daily in PM, # 90 tablet, Refills 3, Tot. Refills 3, Maintenance, 08/15/19 16:21:00 EDT, Route to Pharmacy Electronically, [facility], 160, cm, 08/15/19 13:45:00 [...] 0 Refills, Maintenance, 08/27/20 9:45:00 EDT, Capsule, [facility] [...] 11:32:00 EST, Aerosol, Route to Pharmacy Electronically, [id number]_[id number], [facility], 160, cm, 04/29/19 10:47:00 EST, Height... Start Date: 04/29/19 Status: Ordered Symbicort 160mcg/4.5mcg Inhaler 2, puffs, Inhalation, 2 times a day, Refills 0, Maintenance, 08/27/20 9:43:00 EDT, Aerosol Start Date: 08/27/20 Status: Ordered Topamax 50 mg oral tablet 2 tablet = 100 mg, By Mouth, Daily at bedtime, # 60 tablet, 6 Refills, Maintenance, 08/04/20 11:44:00 EDT, Tablet, [facility], 158.02, cm, 07/06/20 6:49:00 EDT, [...] 6 Refills, Soft Stop, 08/04/20 11:37:00 EDT, [facility] [...] 1resolved after weight loss 2chronic perst 3gyn 12581 5testing negative insulinoma 6likley dumping sydrome 7abnormal GTT ;sugar 36 two hours into test 8sees gi 9normal CT brain 10new 115.3 cm,right per ct scan recent;seeing gynecology soon;they will review 12vit d deficiency;correct 161145 14per endocrinology monitor 15correction refer GTT; 2 hour glucose 36 16refer GGT 17seeing ortho;pre op 18asma,ama neg/cerulopalsmain wnl,AAT wnl 19Negative hep A antibody positive hep B surface antibody negative antigen negative hep C, normal ferritin 20ukltrasound Social History Social History Type Response Smoking Status Never smoker entered on: 02/20/13 Sex
--- OUTSIDE RECORDS SUMMARY | 2022-08-17 08:29 | XMS_ITS | Continuity of Care Document ---
Author Name Unknown Organization [facility] Address [address] [place] [address]- Care Team Providers Care Maritime Pilot Name Role Phone Louisa LANDRUM, Taras Fuentes Primary Care Physician Encounter [facility] Date(s): 06/15/20 - 07/15/20 [facility] [address] [place] [id number] Allergies, Adverse Reactions, Alerts Substance Reaction [...] toxoids (Td) 08/03/05 Given 1Result Comment: [12/07/2017] [id number] 2Result Comment: [12/21/2016] [facility]: [id number] 3Result Comment: [06/10/2015] #3 4Admin Note: per pt 5Admin Note: given in clinic Medications acarbose 25 mg oral tablet 1 tablet = 25 mg, By Mouth, 3 times a day, Take 1 tablet 3 times daily with meals. Add to 50mg dosefor total of 75mg 3 times daily. E11.65, # 270 tablet, 3 Refills, Maintenance, 07/15/20 12:23:00 EDT, Tablet, [facility], Partial... Start Date: 07/15/20 Status: Ordered acarbose 50 mg oral tablet 1 tablet = 50 mg, By Mouth, 3 times a day, Take 3 times daily with meals. E11.65, # 90 tablet, 5 Refills, Maintenance, 07/13/20 16:29:00 EDT, Tablet, [facility], [...] 0 Refills, Maintenance, 07/03/19 13:59:00 EDT, Solution, [facility], 160, cm, [...] 60 capsule, 5 Refills, Maintenance, 05/07/20 15:54:00EST, [facility], 160.02, cm, 05/01/20 9:18:00 [...] 1 Refills, Soft Stop, 11/20/19 11:59:00 EDT, [facility], 160.02, cm, 11/15/19 10:05:00 [...] 08/15/19 16:21:00 EDT, Route to Pharmacy Electronically, [facility], 160, cm, 08/15/19 13:45:00 EDT, Height, 56.5, kg, 05/29/19 13:36:00... Start Date: 08/15/19 Status: Ordered ProAir HFA 90 mcg/inh inhalation aerosol with adapter 2, puffs, Inhalation, Every 4 hours, PRN, # 8.5 Gm, Refills 2, Tot. Refills 2, Maintenance, 04/29/19 11:32:00 EST, Aerosol, Route to Pharmacy Electronically, NCPDP_[id number], [facility], 160, cm, 04/29/19 10:47:00 EST, Height... Start Date: 04/29/19 Status: Ordered rifAXIMin 550 mg oral tablet 1 tablet = 550 mg, By Mouth, 3 times a day, # 42 tablet, 0 Refills, Maintenance, 07/14/20 13:37:00 EDT, Tablet, [facility], [...] 6 Refills, Maintenance, 03/12/20 11:09:00 EST, Tablet, [facility], weaning zonegran off by [...] 6 Refills, Soft Stop, 03/12/20 11:04:00 EST, [facility], Partial [...] 0 Refills, Maintenance, 06/13/20 14:10:00 EDT, Capsule, [facility],... Start Date: 06/13/20 Status: [...] 1resolved after weight loss 2chronic perst 3gyn [address]26[address] 5testing negative insulinoma 6likley dumping sydrome 7abnormal GTT ;sugar 36 two hours into test 8sees gi 9normal CT brain 10new 115.3 cm,right per ct scan recent;seeing gynecology soon;they will review 12vit d deficiency;correct 827838 14per endocrinology monitor 15correction refer GTT; 2 hour glucose 36 16refer GGT 17seeing ortho;pre op 18asma,ama neg/cerulopalsmain wnl,AAT wnl 19Negative hep A antibody positive hep B surface antibody negative antigen negative hep C, normal ferritin 20ukltrasound Social History Social History Type Response Smoking Status Never smoker entered on: 02/20/13 Sex
--- OUTSIDE RECORDS SUMMARY | 2022-08-17 08:29 | XMS_ITS | Continuity of Care Document ---
Author Name Unknown Organization [facility] Address [address] [place] [address]- Care Team Providers Care Application Packaging Specialist Name Role Phone Louisa LANDRUM, Taras Fuentes Primary Care Physician [phone] Encounter [facility] [place] [place] Date(s): 04/02/19 - 04/09/19 [facility] [address] [place] [address]- [facility] Encounter Diagnosis Neck pain(Discharge Diagnosis) - 04/02/19 Lower back pain(Discharge Diagnosis) - 04/02/19 Headache(Discharge Diagnosis) - 04/02/19 Attending Physician: Paola Tripp NP Allergies, Adverse Reactions, Alerts Substance Reaction [...] toxoids (Td) 08/03/05 Given 1Result Comment: [12/07/2017] [id number] 2Result Comment: [12/21/2016] [facility] [place]: [id number] 3Result Comment: [06/10/2015] #3 4Admin Note: per [...] 02/12/19 10:17:00... Start Date: 02/25/19 Status: Ordered meloxicam 7.5 mg oral tablet 1 tablet = 7.5 mg, By Mouth, Daily, PRN Pain , Moderate, # 15 tablet, 0 Refills, Maintenance, 04/06/19 20:29:00 EST, [facility], 160, cm, 04/06/19 19:26:00 EST, Height, 64.5,kg, 04/06/19 19:26:00 EST, Dry Weight Start Date: 04/06/19 Status: Ordered SEROquel 200 mg oral tablet [...] Dry Weight Start Date: 02/14/19 Status: Ordered Zoloft 50 mg oral tablet [...] perst 3folowed by mental health;recent hospitalization 4gyn [address]196 6testing negative insulinoma 7likley dumping sydrome 8abnormal GTT ;sugar 36 two hours into test 9sees gi 10normal CT brain 11new 125.3 cm,right per ct scan recent;seeing gynecology soon;they will review 13vit d deficiency;correct 293623 15per endocrinology monitor 16correction refer GTT; 2 hour glucose 36 17refer GGT 18seeing ortho;pre op 19asma,ama neg/cerulopalsmain wnl,AAT wnl 20Negative hep A antibody positive hep B surface antibody negative antigen negative hep C, normal ferritin 21ukltrasound Diagnosis Diagnosis Type Effective Dates Health Status Cl inical Service Informant Neck pain Discharge Diagnosis 04/02/19 Lower back pain Discharge Diagnosis 04/02/19 Headache Discharge Diagnosis 04/02/19 Vital Signs Most recent to oldest [Reference Range]: 1 Height 158 cm (04/02/19 9:03 AM) Weight 61.0 kg (04/02/19 9:03 AM) Oxygen Saturation [94-100 %] 98 % (04/02/19 9:03 AM) Pulse Rate [55-90 bpm] 88 bpm (04/02/19 9:03 AM) Body Mass Index [18.5-24.99] 24.44 (04/02/19 9:03 AM) Blood Pressure [90-138/55-84 mm Hg] 100/ 68mm Hg (04/02/19 9:03 AM) Respiratory Rate [16-30 br/min] 16 br/mi n (04/02/19 9:03 AM) Temperature [96.8-100.4 DegF] 97.4 DegF (04/02/19 9:03 AM) Mode of Delivery (Oxygen) Room air (04/02/19 9:03 AM) Blood pressure sites Arm, left (04/02/19 9:03 AM) Temperature Route Oral (04/02/19 9:03 AM) Weight Obtained Via Standing scale (04/02/19 9:03 AM) Social History Social History Type Response Smoking Status Never smoker entered on: 02/20/13 Sex
--- OUTSIDE RECORDS SUMMARY | 2022-08-17 08:29 | XMS_ITS | Continuity of Care Document ---
Author Name Unknown Organization [facility] Address [address] [place] [address]- Care Team Providers Care Polysomnographic Technician Name Role Phone Eran Sue JOHNSON Primary Care Physician Encounter [facility] [place] Date(s): 08/19/21 - 09/18/21 [facility] [address] [place] [address]- [place] Allergies, Adverse Reactions, Alerts Substance Reaction Severity Status Dust Allergy to pollen Active Pollen seasonal allergies respiratory symptoms Active Incruse Ellipta 1 lightheaded and migraine Active 1dizzy Immunizations Given and Recorded Vaccine Date Status Refusal Reason SARS-CoV-2 mRNA (dxlpobm-jpph-topoc) vax 05/01/21 Recorded influenza virus vaccine, inactivated [...] toxoids (Td) 08/03/05 Given 1Result Comment: [12/07/2017] [id number] 2Result Comment: [12/21/2016] [facility]: [id number] 3Result Comment: [06/10/2015] #3 4Admin Note: per [...] constipation, 08/23/21 8:22:00 EDT, Route to Pharmacy Electronically,[facility], Partial fill upon patient... [...] 1resolved after weight loss 2chronic perst 3gyn [address]31 5testing negative insulinoma 6likley dumping sydrome 7abnormal GTT ;sugar 36 two hours into test 8sees gi 9normal CT brain 10new 115.3 cm,right per ct scan recent;seeing gynecology soon;they will review 12vit d deficiency;correct 299761 14per endocrinology monitor 15correction refer GTT; 2 hour glucose 36 16refer GGT 17seeing ortho;pre op 18asma,ama neg/cerulopalsmain wnl,AAT wnl 19Negative hep A antibody positive hep B surface antibody negative antigen negative hep C, normal ferritin 20ukltrasound Social History Social History Type Response Smoking Status Never smoker entered on: 02/20/13 Sex
--- OUTSIDE RECORDS SUMMARY | 2022-08-17 08:29 | XMS_ITS | Continuity of Care Document ---
Author Name Unknown Organization [facility] Address [address] [place] [address]- Care Team Providers Care C Unix Developer Name Role Phone Taras Jasso MD Primary Care Physician [place] [facility] [place] 05/05/19 [facility] [address] [place] [address]- [facility] Attending Physician: Sue Barillas NP Referring Physician: [...] toxoids (Td) 08/03/05 Given 1Result Comment: [12/07/2017] [id number] 2Result Comment: [12/21/2016] [facility]: [id number] 3Result Comment: [06/10/2015] #3 4Admin Note: per pt 5Admin Note: given in clinic Medications amoxicillin 500 mg oral tablet See Instructions, 4 by mouth one hour prior dental work, # 4 tablet, 1 Refills, Maintenance, 04/24/19 10:41:00 EST, [facility], 160, cm, 04/11/19 [...] 02/25/19 16:55:00 EST, Route to Pharmacy Electronically, [facility], 158, cm, 02/14/19 7:55:00 EST, Height, 61.9, kg, 02/12/19 10:17:00... Start Date: 02/25/19 Status: Ordered ProAir HFA 90 mcg/inh inhalation aerosol with adapter 2, puffs, Inhalation, Every 4 hours, PRN, # 8.5 Gm, Refills 2, Tot. Refills 2, Maintenance, 04/29/19 11:32:00 EST, Aerosol, Route to Pharmacy Electronically, NCPDP_[id number], [facility], 160, cm, [...] 0 Refills, Maintenance, 04/29/19 11:38:00 EST, Tablet, [facility], 160, cm, 04/29/19 10:47:00 EST, Height, 64.5, kg, 04/06/19 19:26:00 EST, Dry Weight Start Date: 04/29/19 Status: Ordered Zonegran 25 mg oral capsule 2 capsule = 50 mg, By Mouth, 2 times a day, after weaning off topamax start this medication, # 120 capsule, 5 Refills, Maintenance, 04/12/19 12:59:00 EST, Capsule, [facility], 160, cm, 04/11/19 [...] perst 3folowed by mental health;recent hospitalization 4gyn 8[address]31 6testing negative insulinoma 7likley dumping sydrome 8abnormal GTT ;sugar 36 two hours into test 9sees gi 10normal CT brain 11new 125.3 cm,right per ct scan recent;seeing gynecology soon;they will review 13vit d deficiency;correct 890451 15per endocrinology monitor 16correction refer GTT; 2 hour glucose 36 17refer GGT 18seeing ortho;pre op 19asma,ama neg/cerulopalsmain wnl,AAT wnl 20Negative hep A antibody positive hep B surface antibody negative antigen negative hep C, normal ferritin 21ukltrasound Vital Signs Most recent to oldest [Reference Range]: 1 Height 160 cm (04/28/19 11:07 AM) Oxygen Saturation [94-100 %] 100 % (04/28/19 11:07 AM) Pulse Rate [55-90 bpm] 70 bpm (04/28/19 11:07 AM) Blood Pressure [90-138/55-84 mm Hg] 104/ 75mm Hg (04/28/19 11:07 AM) Respiratory Rate [16-30 br/min] 16 br/mi n (04/28/19 11:07 AM) Temperature [96.8-100.4 DegF] 97.4 DegF (04/28/19 11:07 AM) Mode of Delivery (Oxygen) Room air (04/28/19 11:07 AM) Blood pressure sites Arm, left (04/28/19 11:07 AM) Temperature Route Oral (04/28/19 11:07 AM) Social History Social History Type Response Smoking Status Never smoker entered on: 02/20/13 Sex
--- OUTSIDE RECORDS SUMMARY | 2022-08-17 08:29 | XMS_ITS | Continuity of Care Document ---
Author Name Unknown Organization [facility] lt Address [address] [place] [address]- Care Team Providers Care Mill Crane Operator Name Role Phone Louisa LANDRUM, Taras Fuentes Primary Care Physician Encounter [facility] Date(s): 11/17/20 - 12/17/20 [facility] Adult [address] [place] [address]- Allergies, Adverse Reactions, Alerts Substance Reaction Severity [...] toxoids (Td) 08/03/05 Given 1Result Comment: [12/07/2017] [id number] 2Result Comment: [12/21/2016] [facility]: [id number] 3Result Comment: [06/10/2015] #3 4Admin Note: per pt 5Admin Note: given in clinic Medications acarbose 50 mg oral tablet 1 tablet = 50 mg, By Mouth, 3 times a day, Take 3 times daily with meals. E11.65, # 90 tablet, 5 Refills, Maintenance, 07/13/20 16:29:00 EDT, Tablet, [facility], Partial fill upon patient request if [...] Maintenance, 07/03/19 13:59:00 EDT, Solution, [facility], 160, cm, 05/29/19 13:36:00 EDT, Height, 56.5, kg, 03... Start Date: 07/03/19 Status: Ordered Baqsimi One Pack 3 mg nasal powder See Instructions, 3 mg Once intrasnasally for severe hypoglycemia, # 2 each, 3 Refills, Soft Stop, 08/28/20 10:36:00 EDT, [facility], Partial fill upon patient request if [...] Maintenance, 11/06/20 10:28:00 EDT, Tablet, [facility], Replaces loratidine, 158.02, cm, 11/06/20 10:04:00 [...] Soft Stop, 11/20/19 11:59:00 EDT, [facility], 160.02, cm, 11/15/19 10:05:00 EDT, Height, [...] Maintenance, 11/03/20 7:49:00 EDT, Tablet, [facility], Partial fill upon patient request if the prescription is for... Start Date: 11/03/20 Status: Ordered montelukast 10 mg oral tablet 10 mg, 1, tablet, By Mouth, Daily in PM, # 90 tablet, Refills 3, Tot. Refills 3, Maintenance, 08/15/19 16:21:00 EDT, Route to Pharmacy Electronically, [facility], 160, cm, 08/15/19 13:45:00 EDT, Height, [...] Maintenance, 12/10/20 12:36:00 EDT,DIS Tablet, [facility], has t... Start Date: 12/10/20 Stop Date: 07/08/21 Status: Ordered [place] 0.65% nasal spray 2 sprays, Nares, Both, 4 times a day, # 1 each, 0 Refills, Maintenance, 10/30/20 11:34:00 EDT, [facility], Partial fill upon patient request if the prescription is for a scheduleII opioid drug., 2 sprays Nares, Both 4 times a day... Start Date: 10/30/20 Status: Ordered ProAir HFA 90 mcg/inh inhalation aerosol with adapter 2, puffs, Inhalation, Every 4 hours, PRN, # 8.5 Gm, Refills 2, Tot. Refills 2, Maintenance, 04/29/19 11:32:00 EST, Aerosol, Route to Pharmacy Electronically, NCPDP_[id number], [facility], 160, cm, 04/29/19 10:47:00 EST, Height... Start Date: 04/29/19 Status: Ordered Reclast = 5 mg, IV Infusion, Once, 0 Refills, Maintenance, 11/06/20 10:24:00 EDT, administered at [facility] 10/2020 Start Date: 11/06/20 Status: Ordered Symbicort 160mcg/4.5mcg Inhaler 2, puffs, Inhalation, 2 times a day, with spacer., # 10.2 Gm, Refills 11, Route to Pharmacy Electronically, NCPDP_[id number], [facility], 158.02, cm, 11/13/20 8:38:00 EDT, Height, [...] 1resolved after weight loss 2chronic perst 3gyn 06423 5testing negative insulinoma 6likley dumping sydrome 7abnormal GTT ;sugar 36 two hours into test 8sees gi 9normal CT brain 10new 115.3 cm,right per ct scan recent;seeing gynecology soon;they will review 12vit d deficiency;correct 942192 14per endocrinology monitor 15correction refer GTT; 2 hour glucose 36 16refer GGT 17seeing ortho;pre op 18asma,ama neg/cerulopalsmain wnl,AAT wnl 19Negative hep A antibody positive hep B surface antibody negative antigen negative hep C, normal ferritin 20ukltrasound Social History Social History Type Response Smoking Status Never smoker entered on: 02/20/13 Sex
--- OUTSIDE RECORDS SUMMARY | 2022-08-17 08:29 | XMS_ITS | Continuity of Care Document ---
Author Name Unknown Organization [facility] Address [address] [place] [address]- Care Team Providers Care Laborer [employer] Name Role Phone Louisa LANDRUM, Taras Fuentes Primary Care Physician [facility] Date[facility]s): 10/29[facility]19 - 11/28/19 [facility] Adult [address] [place] [address]- [facility] Allergies, Adverse [...] toxoids (Td) 08/03/05 Given 1Result Comment: [12/07/2017] [address]-69 2Result Comment: [12/21/2016] [facility]: 25561-682-14 3Result Comment: [06/10/2015] #3 4Admin Note: per [...] 07/07/2012:36:00 EDT, Aerosol, Route to Pharmacy Electronically, [id number]_[id number], [facility], 160, cm, 07/08/19 13:03:00 EDT, [...] 60 capsule, 5 Refills, Maintenance, 07/30/19 10:21:00EDT, [facility], 160, cm, 07/08/19 13:03:00 EDT, Height, 56.5, kg, 05/29/19 13:36:00 EDT, Dry Weight Start Date: 07/30/19 Status: Ordered eletriptan 40 mg oral tablet 1 tablet = 40 mg, By Mouth, Daily, PRN for migraine headache, # 9 tablet, 5 Refills, Soft Stop, 07/16/19 9:23:00 EDT, Tablet, [facility], she has tried sumatriptan and [...] 02/25/19 16:55:00 EST, Route to Pharmacy Electronically, [facility], 158, cm, 02/14/19 [...] Refills, Maintenance, 11/15/19 10:29:00 EDT, REC Powder, [facility], 240 mL By Mouth Every 10 minutes, 160.02, cm, 11/15/19 10:05:00 EDT, Height, 67, kg, 09/11/19 11:20:00 EDT, Dry... Start Date: 11/15/19 Status: Ordered ondansetron 4 mg oral tablet, disintegrating 1 tablet = 4 mg, By Mouth, Every 8 hours, PRN as needed for nausea/vomiting, # 9 tablet, 0 Refills,Maintenance, 10/06/19 21:07:00 EDT, DIS Tablet, [facility] Start Date: 10/06/19 Stop Date: 10/09/19 Status: Ordered ProAir HFA 90 mcg/inh inhalation aerosol with adapter 2, puffs, Inhalation, Every 4 hours, PRN, # 8.5 Gm, Refills 2, Tot. Refills 2, Maintenance, 04/29/19 11:32:00 EST, Aerosol, Route to Pharmacy Electronically, NCPDP_[id number], [facility], 160, [...] 07/08/19 13:36:00 EDT, Route to Pharmacy Electronically, NCPDP_[id number], [facility], 160, cm, 07/08/19 13:03:00 ED... Start Date: 07/08/19 Status: Ordered Topamax 50 mg oral tablet 2 tablet = 100 mg, By Mouth, Daily at bedtime, # 60 tablet, 6 Refills, Maintenance, 11/04/19 11:08:00 EDT, Tablet, [facility], weaning zonegran off by 25mg [...] Refills, Soft Stop, 11/25/19 21:26:00 EDT, Tablet, [facility], 160.02, cm, 11/15/19 10:05:00 EDT, Height,... Start Date: 11/25/19 Status: Ordered Zofran 4 mg oral tablet 1 tablet = 4 mg, By Mouth, Every 8 hours, PRN Nausea & Vomiting, # 30 tablet, 0 Refills, Maintenance, 09/30/19 11:23:00 EDT, [facility], 160.02, cm, 09/24/19 15:31:00 EDT, [...] perst 3folowed by mental health;recent hospitalization 4gyn 83887 6testing negative insulinoma 7likley dumping sydrome 8abnormal GTT ;sugar 36 two hours into test 9sees gi 10normal CT brain 11new 125.3 cm,right per ct scan recent;seeing gynecology soon;they will review 13vit d deficiency;correct 411248 15per endocrinology monitor 16correction refer GTT; 2 hour glucose 36 17refer GGT 18seeing ortho;pre op 19asma,ama neg/cerulopalsmain wnl,AAT wnl 20Negative hep A antibody positive hep B surface antibody negative antigen negative hep C, normal ferritin 21ukltrasound Social History Social History Type Response Smoking Status Never smoker entered on: 02/20/13 Sex
--- OUTSIDE RECORDS SUMMARY | 2022-08-17 08:29 | XMS_ITS | Continuity of Care Document ---
Author Name Unknown Organization [facility] Address [address] [place] [address]- Care Team Providers Care Grid Caster Name Role Phone Eran ELIZABETH, Sue Dahl Primary Care Physician [phone] [place] [facility] [place] 08/10[place]21 - 09/09/21 [facility] [address] [place] [address]- Attending Physician: Konrad Curtis Admitting Physician: Konrad Curtis Referring Physician: AdmtrKonrad Allergies, Adverse Reactions, Alerts Substance Reaction Severity Status Dust Allergy to pollen Active Pollen seasonal allergies respiratory symptoms Active Incruse Ellipta 1 lightheaded and migraine Active 1dizzy Immunizations Given and Recorded Vaccine Date Status Refusal Reason SARS-CoV-2 mRNA (vwaroee-wvxl-xdnzh) vax 05/01/21 Recorded influenza virus vaccine, inactivated [...] 04/09/20 Recorded SARS-CoV-2 (COVID-19) mRNA BNT-162b2 vac 1/14/21 Recorded Hepatitis A Adult Vaccine 10/17/16 Given [...] toxoids (Td) 08/03/05 Given 1Result Comment: [12/07/2017] [address]-19 2Result Comment: [12/21/2016] [facility]: 53301-699-12 3Result Comment: [06/10/2015] #3 4Admin Note: per pt 5Admin Note: given in clinic Medications acarbose 25 mg oral tablet 1 tablet = 25 mg, By Mouth, 3 times a day, Take 1 tab (plus 1 50mg tab), 3 times daily with meals.,# 270 tablet, 3 Refills, Maintenance, 02/03/21 8:34:00 EST, Tablet, [facility], Partial fill upon patient request if the prescript... Start Date: 02/03/21 Status: Ordered acarbose 50 mg oral tablet 1 tablet = 50 mg, By Mouth, 3 times a day, Take 1 tab (plus 1 25mg tab), 3 times daily with meals.,# 270 tablet, 3 Refills, Maintenance, 02/03/21 8:34:00 EST, Tablet, [facility], Partial fill upon patient [...] constipation, 08/23/21 8:22:00 EDT, Route to Pharmacy Electronically,[facility], Partial fill upon patient... Start Date: 08/23/21 Status: Ordered Dexilant 60 mg oral delayed release capsule 1 capsule = 60 mg, By Mouth, 2 times a day, 30 min before meal, # 60 capsule, 5 Refills, Maintenance, 04/16/21 14:29:00 EST, CR Capsule, [facility], Partial fill upon patient request if the prescription is for a schedule II opioi... Start Date: 04/16/21 Status: Ordered Emgality Prefilled Pen 120 mg/mL subcutaneous solution = 120 mg, Subcutaneous Injection, Once, Maintenance Dose, # 1 kit, 6 Refills, Soft Stop, 06/29/21 10:09:00 EDT, [facility], Partial fill upon patient request if the prescription is for a schedule II opioid drug., 158, cm, 06/29/21... Start Date: 06/29/21 Status: Ordered EPINEPHrine 1 mg/mL injectable solution 0.3 mL = 0.3 mg, Intramuscular, Once, # 1 mL, 1 Refills, Soft Stop, 03/08/21 15:07:00 EST, Solution, [facility], Partial fill upon patient [...] 05/24/21 11:12:00 EDT, Route to Pharmacy Electronically, [facility], 158, cm, 05/14/21 7:52:00 EST, Height, 80.6, kg, 03/08/21 12:18:00 EST, D... Start Date: 05/24/21 Status: Ordered meclizine 25 mg oral tablet See Instructions, PRN for dizziness, Take 1 tablet every 8 hours as needed for dizziness, # 15 tablet, 0 Refills, Maintenance, 11/03/20 7:49:00 EDT, Tablet, [facility], Partial fill upon patient request if the prescription is for... Start Date: 11/03/20 Status: Ordered montelukast 10 mg oral tablet 10 mg, 1, tablet, By Mouth, Daily in PM, # 90 tablet, Refills 1, Tot. Refills 1, Maintenance, 04/23/21 12:32:00 EST, Route to Pharmacy Electronically, [facility], 158, cm, 04/09/21 8:13:00 [...] 6 Refills, Maintenance, 12/10/20 12:36:00 EDT,DIS Tablet, [facility], has t... Start Date: 12/10/20 Stop Date: 07/08/21 Status: Ordered Readi-Cat 2 oral suspension See Instructions, Dispense : 2 Bottles 450 ml each Dx: Hernia, # 900 mL, 0 Refills, Maintenance, 09/07/21 15:24:00 EDT, [facility]/pharmacy #[id number], Partial fill upon [...] 1resolved after weight loss 2chronic perst 3gyn 72610 5testing negative insulinoma 6likley dumping sydrome 7abnormal GTT ;sugar 36 two hours into test 8sees gi 9normal CT brain 10new 115.3 cm,right per ct scan recent;seeing gynecology soon;they will review 12vit d deficiency;correct 409312 14per endocrinology monitor 15correction refer GTT; 2 hour glucose 36 16refer GGT 17seeing ortho;pre op 18asma,ama neg/cerulopalsmain wnl,AAT wnl 19Negative hep A antibody positive hep B surface antibody negative antigen negative hep C, normal ferritin 20ukltrasound Social History Social History Type Response Smoking Status Never smoker entered on: 02/20/13 Sex
--- OUTSIDE RECORDS SUMMARY | 2022-08-17 08:30 | XMS_ITS | Continuity of Care Document ---
Author Name Unknown Organization [facility] Address [address] [place] [address]- Care Team Providers Care Latent Print Examiner Name Role Phone Louisa LANDRUM, Taras Fuentes Primary Care Physician [facility]counter [facility] Date(s): 01/01/21 - 02/06/[address] [address] Attending Physician: Michael JOHNSON, Cyndee Dahl Admitting Physician: Cyndee Rodriguez NP Referring Physician: Cyndee Rodriguez NP Allergies, Adverse Reactions, Alerts Substance Reaction [...] toxoids (Td) 08/03/05 Given 1Result Comment: [12/07/2017] [address]-37 2Result Comment: [12/21/2016] [facility]: 87245-252-08 3Result Comment: [06/10/2015] #3 4Admin Note: per [...] 3 Refills, Maintenance, 02/03/21 8:34:00 EST, Tablet, [facility], Partial fill upon patient request if the prescript... Start Date: 02/03/21 Status: Ordered acarbose 50 mg oral tablet 1 tablet = 50 mg, By Mouth, 3 times a day, Take 1 tab (plus 1 25mg tab), 3 times daily with meals.,# 270 tablet, 3 Refills, Maintenance, 02/03/21 8:34:00 EST, Tablet, [facility], Partial fill upon patient request if the prescript... Start Date: 02/03/21 Status: Ordered Baqsimi One Pack 3 mg nasal powder See Instructions, 3 mg Once intrasnasally for severe hypoglycemia, # 2 each, 3 Refills, Soft Stop, 08/28/20 10:36:00 EDT, [facility], Partial fill upon [...] 5 Refills, Maintenance, 11/06/20 10:28:00 EDT, Tablet, [facility], Replaces loratidine, 158.02, cm, 11/06/20 [...] 0 Refills, Maintenance, 11/03/20 7:49:00 EDT, Tablet, [facility], Partial [...] 6 Refills, Maintenance, 12/10/20 12:36:00 EDT,DIS Tablet, [facility], has t... Start Date: 12/10/20 Stop Date: 07/08/21 Status: Ordered Harrells 0.65% nasal spray 2 sprays, Nares, Both, 4 times a day, # 1 each, 0 Refills, Maintenance, 10/30/20 11:34:00 EDT, [facility], Partial fill upon [...] 8:26:00 EDT, Aerosol, Route to Pharmacy Electronically, NCPDP_[id number], [facility], 158.02, cm, 01/06/21 8:03:00 EDT, [...] Gm, Refills 11, Route to Pharmacy Electronically, NCPDP_[id number], [facility], 158.02, cm, 11/13/20 8:38:00 EDT, [...] mL, 1 Refills, Maintenance, 01/06/21 13:36:00 EDT, [facility], Partialfill upon patient request if the [...] 1resolved after weight loss 2chronic perst 3gyn 27645 5testing negative insulinoma 6likley dumping sydrome 7abnormal GTT ;sugar 36 two hours into test 8sees gi 9normal CT brain 10new 115.3 cm,right per ct scan recent;seeing gynecology soon;they will review 12vit d deficiency;correct [id number] 14per endocrinology monitor 15correction refer GTT; 2 hour glucose 36 16refer GGT 17seeing ortho;pre op 18asma,ama neg/cerulopalsmain wnl,AAT wnl 19Negative hep A antibody positive hep B surface antibody negative antigen negative hep C, normal ferritin 20ukltrasound Social History Social History Type Response Smoking Status Never smoker entered on: 02/20/13 Sex
--- OUTSIDE RECORDS SUMMARY | 2022-08-17 08:30 | XMS_ITS | Continuity of Care Document ---
Author Name Unknown Organization [facility] Address [address] [place] [address]- Care Team Providers Care Passenger Booking Clerk Name Role Phone Louisa LANDRUM, Taras Fuentes Primary Care Physician [facility] Date(s): 06/19/20 - 07/19/20 [facility] [address] [place] [id number] Allergies, Adverse Reactions, Alerts Substance [...] toxoids (Td) 08/03/05 Given 1Result Comment: [12/07/2017] [address]-27 2Result Comment: [12/21/2016] [facility]: 27044-842-89 3Result Comment: [06/10/2015] #3 4Admin Note: per pt 5Admin Note: given in clinic Medications acarbose 25 mg oral tablet 1 tablet = 25 mg, By Mouth, 3 times a day, Take 1 tablet 3 times daily with meals. Add to 50mg dosefor total of 75mg 3 times daily. E11.65, # 270 tablet, 3 Refills, Maintenance, 07/15/20 12:23:00 EDT, Tablet, [facility], Partial... Start Date: 07/15/20 Status: Ordered acarbose 50 mg oral tablet 1 tablet = 50 mg, By Mouth, 3 times a day, Take 3 times daily with meals. E11.65, # 90 tablet, 5 Refills, Maintenance, 07/13/20 16:29:00 EDT, Tablet, [facility] [...] 60 capsule, 5 Refills, Maintenance, 05/07/20 15:54:00EST, [facility], 160.02, cm, 05/01/20 9:18:00 EST, Height, [...] 11:32:00 EST, Aerosol, Route to Pharmacy Electronically, NCPDP_[id number], [facility], 160, cm, 04/29/19 10:47:00 EST, Height... Start Date: 04/29/19 Status: Ordered rifAXIMin 550 mg oral tablet 1 tablet = 550 mg, By Mouth, 3 times a day, # 42 tablet, 0 Refills, Maintenance, 07/14/20 13:37:00 EDT, Tablet, [facility] [...] 6 Refills, Maintenance, 03/12/20 11:09:00 EST, Tablet, [facility], weaning zonegran off by 25mg every [...] 6 Refills, Soft Stop, 03/12/20 11:04:00 EST, [facility], [...] 0 Refills, Maintenance, 06/13/20 14:10:00 EDT, Capsule, [facility],... Start Date: 06/13/20 Status: Ordered Problem [...] 1resolved after weight loss 2chronic perst 3gyn [address]45 5testing negative insulinoma 6likley dumping sydrome 7abnormal GTT ;sugar 36 two hours into test 8sees gi 9normal CT brain 10new 115.3 cm,right per ct scan recent;seeing gynecology soon;they will review 12vit d deficiency;correct 382688 14per endocrinology monitor 15correction refer GTT; 2 hour glucose 36 16refer GGT 17seeing ortho;pre op 18asma,ama neg/cerulopalsmain wnl,AAT wnl 19Negative hep A antibody positive hep B surface antibody negative antigen negative hep C, normal ferritin 20ukltrasound Social History Social History Type Response Smoking Status Never smoker entered on: 02/20/13 Sex
--- OUTSIDE RECORDS SUMMARY | 2022-08-17 08:30 | XMS_ITS | Continuity of Care Document ---
Author Name Unknown Organization [facility] Address [address] [place] [address]- Care Team Providers Care Dentist Private Practice Name Role Phone Louisa LANDRUM, Taras Fuentes Primary Care Physician [phone] Encounter [facility] Date(s): 04/09/21 - 04/16/21 [facility] Adult [address] [place] [address]- Encounter Diagnosis Pain in the abdomen(Discharge Diagnosis) - 04/09/21 Postprandial vomiting(Discharge Diagnosis) - 04/09/21 Hypoglycemia(Discharge Diagnosis) - 04/09/21 Attending Physician: Not on Staff, Attending MD [...] toxoids (Td) 08/03/05 Given 1Result Comment: [12/07/2017] [id number] 2Result Comment: [12/21/2016] [facility]: 67582-734-57 3Result Comment: [06/10/2015] #3 4Admin Note: per [...] Stop, 08/28/20 10:36:00 EDT, [facility], Partial [...] 5 Refills, Maintenance, 11/06/20 10:28:00 EDT, Tablet, [facility], Replaces loratidine, 158.02, cm, 11/06/20 10:04:00 EDT, Height,67, kg, 09/11/19 11:20:00 EDT, Dry Weight Start Date: 11/06/20 Status: Ordered cholestyramine 4 gm/5 gm oral powder for reconstitution 1 pack/packet, By Mouth, Daily, # 30 pack/packet, 5 Refills, Maintenance, 03/03/21 16:42:00 EST, REC Powder, [facility], Partial fill [...] 0 Refills, Soft Stop, 03/16/21 16:05:00 EST, [facility], Partial fill upon patient request if the prescription is for a schedule II opioid drug., 158, albertina, 03/11/21 9:1... Start Date: 03/16/21 Status: Ordered Emgality Prefilled Pen 120 mg/mL subcutaneous solution = 120 mg, Subcutaneous Injection, Once, Maintenance Dose, # 1 kit, 5 Refills, Soft Stop, 03/16/21 16:05:00 EST, [facility], Partial [...] Stop, 11/20/19 11:59:00 EDT, [facility], 160.02, cm, 11/15/19 10:05:00 EDT, Height, 67, kg, 09/11/19 11:20:00 EDT, Dry Weight Start Date: 11/20/19 Status: Ordered Lidocaine Viscous 2% solution 5 mL = 0.1 Gm, By Mouth, 4 times a day, PRN for epigastric pain, # 200 mL, 1 Refills, Maintenance, 04/06/21 9:45:00 EST, Solution, [facility], [...] Pharmacy Electronically, [facility], 160, cm, 08/15/19 13:45:00 EDT, Height, [...] Date: 12/10/20 Stop Date: 07/08/21 Status: Ordered Upton 0.65% nasal spray 2 sprays, Nares, Both, 4 times a day, # 1 each, 0 Refills, Maintenance, 10/30/20 11:34:00 EDT, [facility], Partial [...] 8:26:00 EDT, Aerosol, Route to Pharmacy Electronically, NCPDP_[id number], [facility], 158.02, cm, 01/06/21 8:03:00 EDT, Height, 6... Start Date: 01/06/21 Status: Ordered Readi-Cat 2 oral suspension See Instructions, Follow direction for CT, # 2 each, 0 Refills, Maintenance, 04/08/21 16:08:00 EST,[facility], Partial fill upon patient [...] Gm, Refills 11, Route to Pharmacy Electronically, NCPDP_[id number], [facility], 158.02, cm, [...] mL, 1 Refills, Maintenance, 01/06/21 13:36:00 EDT, [facility], Partialfill upon patient request if the [...] 2007/Feb 2021(Confirmed) 4 Active History of cholecystectomy(Confirmed) 2/5/18 Active Hypoglycemia(Confirmed) 5, 6, 7 Active Irregular [...] 1resolved after weight loss 2chronic perst 3gyn 92951 5testing negative insulinoma 6likley dumping sydrome 7abnormal GTT ;sugar 36 two hours into test 8sees gi 9normal CT brain 10new 115.3 cm,right per ct scan recent;seeing gynecology soon;they will review 12vit d deficiency;correct 095934 14per endocrinology monitor 15correction refer GTT; 2 hour glucose 36 16refer GGT 17seeing ortho;pre op 18asma,ama neg/cerulopalsmain wnl,AAT wnl 19Negative hep A antibody positive hep B surface antibody negative antigen negative hep C, normal ferritin 20ukltrasound Diagnosis Diagnosis Type Effective Dates Health Status Clinical Service Informant Pain in the abdomen Discharge Diagnosis 04/09/21 Postprandial vomiting Discharge Diagnosis 04/09/21 Hypoglycemia Discharge Diagnosis 04/09/21 Vital Signs Most recent to oldest [Reference Range]: 1 Height 158 cm (04/09/21 8:13 AM) Weight 78.1 kg (04/09/21 8:13 AM) Oxygen Saturation [94-100 %] 98 % (04/09/21 8:13 AM) Pulse Rate [55-90 bpm] 70 bpm (04/09/21 8:13 AM) Body Mass Index [18.5-24.99] 31.29 *>HHI* (04/09/21 8:13 AM) Blood Pressure [90-138/55-84 mm Hg] 104/ 64mm Hg (04/09/21 8:13 AM) Respiratory Rate [16-30 br/min] 14 br/mi n *L* (04/09/21 8:13 AM) Temperature [96.8-100.4 DegF] 98.6 DegF (04/09/21 8:13 AM) Mode of Delivery (Oxygen) Room air (04/09/21 8:13 AM) Blood pressure sites Arm, right (04/09/21 8:13 AM) Temperature Route Oral (04/09/21 8:13 AM) Weight Obtained Via Standing scale (04/09/21 8:13 AM) Social History Social History Type Response Smoking Status Never smoker entered on: 02/20/13 Sex
--- OUTSIDE RECORDS SUMMARY | 2022-08-17 08:30 | XMS_ITS | Continuity of Care Document ---
Author Name Unknown Organization [facility] Address [address] [place] [address] [address] [place] [address]- Care Team Providers Care Lining Cutter Name Role Phone Sue Barillas NP Primary Care Physician Encounter [facility] Date(s): 03/10/22 - 03/17/[address] [place] [address]- Attending Physician: Avery Costelol MD Referring Physician: Sue Barillas NP Allergies, Adverse Reactions, Alerts Substance Reaction Severity Status Dust Allergy to pollen Active Pollen seasonal allergies respiratory symptoms Active Incruse Ellipta 1 lightheaded and migraine Active 1dizzy Immunizations Given and Recorded Vaccine Date Status Refusal Reason [id number] 12y+ bivalent booster vax 1 12/24/21 Given [...] vaccine, inactivated 02/08/11 Give n SARS-CoV-2 mRNA (qrvkuwj-lcfn-vckiw) vax 05/01/21 Recorded zoster vaccine, inactivated 11/03/20 [...] tetanus-diphtheria toxoids (Td) 08/03/05 Given 1Result Comment: [address]-2 2Result Comment: [id number] 3Result Comment: [12/07/2017] [address]-71 4Result Comment: [12/21/2016] [facility]: [id number] 5Result Comment: [06/10/2015] #3 6Admin Note: per pt 7Admin Note: given in clinic Medications acarbose 25 mg oral tablet See Instructions, 1 tablet with 50 mg (total 75 mg) By Mouth before lunch, # 30 each, 11 Refills, Maintenance, 11/03/21 8:24:00 EDT, Tablet, [facility], 158, cm, 11/03/21 8:01:00EDT, Height, 71.5, kg, 09/01/21 16:21:00 EDT, Dry W... Start Date: 11/03/21 Status: Ordered acetaminophen 500 mg oral tablet 2 tablet = 1,000 mg, By Mouth, Every 6 hours, PRN as needed for fever, # 200 tablet, 0 Refills, Maintenance, 12/03/21 10:17:00 EDT, Tablet, [facility], Partial fill upon patient request if the prescription is for a schedule II opi... Start Date: 12/03/21 Status: Ordered Albuterol (Eqv-ProAir HFA) 90 mcg/inh inhalation aerosol 2 puffs, Inhalation, Every 4 hours, PRN NEEDED FOR WHEEZING, # 8.5 Gm, 5 Refills, Maintenance, 03/09/22 11:21:00 EST, [facility], 17, INHALE TWO PUFFS BY [...] 6 Refills, Maintenance, 11/03/21 8:23:00 EDT, Tablet, [facility], 2 tablet By Mouth 2 [...] Refills, Maintenance, 11/22/21 9:49:00 EDT, CR Capsule, [facility], Partial fill upon patient request if the prescription is for a schedule II opioid... Start Date: 11/22/21 Status: Ordered Emgality Prefilled Pen 120 mg/mL subcutaneous solution = 120 mg, Subcutaneous Injection, Once, Maintenance Dose, # 3 kit, 2 Refills, Soft Stop, 03/17/22 8:08:00 EST, [facility], requesting 3 month supply for cheaper martinez. with 2 refills, 163, cm, 03/15/22 10:13:00 EST, Height, 68.1,... Start Date: 03/17/22 Status: Ordered EPINEPHrine 1 mg/mL injectable solution 0.3 mL = 0.3 mg, Intramuscular, Once, # 1 mL, 1 Refills, Soft Stop, 03/08/21 15:07:00 EST, Solution, [facility], Partial fill upon patient request if the prescription is for a schedule II opioid drug., 158, cm, 03/08/21 12:18:00 E... Start Date: 03/08/21 Status: Ordered famotidine 40 mg oral tablet 1 tablet = 40 mg, By Mouth, 2 times a day, # 60 tablet, 6 Refills, Maintenance, 01/31/22 14:05:00 EST, Suspension, [facility], Partial fill upon [...] 11/14/21 11:28:00 EDT, Route to Pharmacy Electronically, [facility], 158, cm, 11/03/21 8:01:00 EDT, Height, 71.5, kg, 09/01/21 16:21:00 EDT, Start Date: 11/14/21 Status: Ordered Nurtec ODT 75 mg oral tablet, disintegrating See Instructions, TAKE ONE TABLET DAILY NEEDED FOR migraines, DO NOT EXCEED ONE TABLET IN 24 HOURS, # 8 tablet, 6 Refills, Maintenance, 12/28/21 15:14:00 EDT, [facility], 163,cm, 12/24/21 8:20:00 EDT, Height, 67, kg, 11/26/21... Start Date: 12/28/21 Status: Ordered Reclast = 5 mg, IV Infusion, Once, 0 Refills, Maintenance, 11/06/20 10:24:00 EDT, administered at [facility] 10/2020 Start Date: 11/06/20 Status: [...] 11/23/21 19:57:00 EDT, Route to Pharmacy Electronically, [id number]_[id number], [facility], 158, cm, 11/03/21 8:0... Start [...] 5 Refills, Maintenance, 12/10/21 9:44:00 EDT, Tablet, [facility], Partial [...] Active Vitamin D deficiency Confirmed Active 1gyn 67642 3testing negative insulinoma 4likley dumping sydrome 5abnormal GTT ;sugar 36 two hours into test 6normal CT brain 7new 8resolved after weight loss 9chronic perst 105.3 cm,right per ct scan recent;seeing gynecology soon;they will review 11vit d deficiency;correct 919322 13per endocrinology monitor 14correction refer GTT; 2 hour glucose 36 15refer GGT 16seeing ortho;pre op 17asma,ama neg/cerulopalsmain wnl,AAT wnl 18Negative hep A antibody positive hep B surface antibody negative antigen negative hep C, normal ferritin 19ukltrasound Vital Signs Most recent to oldest [Reference Range]: 1 Height 163 cm (03/10/22 1:18 PM) Weight 67.3 kg (03/10/22 1:18 PM) Pulse Rate [55-90 bpm] 69 bpm (03/10/22 1:18 PM) Body Mass Index [18.5-24.99 kg/m2] 25.33 kg/m2 *H* (03/10/22 1:18 PM) Blood Pressure [90-138/55-84 mm Hg] 143/ 83mm Hg *H* (03/10/22 1:18 PM) Respiratory Rate [16-30 br/min] 16 br/mi n (03/10/22 1:18 PM) Temperature [96.8-100.4 DegF] 97.2 DegF (03/10/22 1:18 PM) Blood pressure sites Arm, left (03/10/22 1:18 PM) Temperature Route Temporal (03/10/22 1:18 PM) Weight Obtained Via Standing scale (03/10/22 1:18 PM) Social History Social History Type Response Smoking Status Never smoker entered on: 02/20/13 Sex Patient Care team information Care Team Personnel Name: Caitlyn Mcgee RN Position: [facility] RN Member Role: Primary Care Nurse Name: Sue Barillas NP Position: [facility] PCO Associate Professional Member Role: PCP Address: Address: [address] [place] [id number] Name: Andria Guadalupe RN Position: [facility] SN RN Member Role: Primary Care Nurse Name: Liz Martin RN Position: [facility] RN Member Role: Primary Care Nurse Name: Ambreen Mcmahon RN Position: [facility] RN Member Role: Primary Care Nurse Name: Irais Grijalva RN Position: [facility] RN Member Role: Primary Care Nurse Name: Autumn Martinez RN Position: [facility] SN RN Member Role: Primary Care Nurse Name: Concha Mckinley RN Position: [facility] RN Member Role: Primary Care Nurse Name: Liz English RN Position: [facility] RN Member Role: Primary Care Nurse Name: Dora Williamson RN Position: [facility] RN Member Role: Primary Care Nurse Care Team Related Persons Name: KHUSHI CUNNINGHAM Address: home [address] [place] [address] Name: BHUPINDER VENEGAS Address: [address] [place] [address] Name: FELIPE FLORES Address: home [address] [place] [address] Name: ARNAV FLORES Address: home [address] [place], [place] Name: IRINA FLORES Address: home [address] [place] [address] Name: RUSLAN FLORES Address: home [address] [place] [address] Name: KAISER PLUNKETT Address: home [address] [place] [address]
--- OUTSIDE RECORDS SUMMARY | 2022-08-17 08:30 | XMS_ITS | Continuity of Care Document ---
Author Name Unknown Organization [facility] Address Unknown Care Team Providers Care Loom Inspector Name Role Phone Eran Sue JOHNSON Primary Care Physician [phone] Encounter [facility] Date(s): 05/18/21 - 06/17/21 [facility] Allergies, Adverse Reactions, Alerts Substance Reaction Severity Status Dust Allergy to pollen Active Pollen seasonal allergies respiratory symptoms Active Incruse Ellipta 1 lightheaded and migraine Active 1dizzy Immunizations Given and Recorded Vaccine Date Status Refusal Reason SARS-CoV-2 mRNA (jgnuhdm-hyqy-lwhrv) vax 05/01/21 Recorded influenza virus vaccine, inactivated [...] toxoids (Td) 08/03/05 Given 1Result Comment: [12/07/2017] [address]-19 2Result Comment: [12/21/2016] [facility]: [id number] 3Result Comment: [06/10/2015] #3 4Admin Note: per [...] for a schedule II opioid drug., 158.02, albertina, 02/03/21... Start Date: 03/03/21 Stop Date: 08/30/21 [...] 12/10/20 Stop Date: 07/08/21 Status: Ordered [place] 0.65% nasal spray 2 sprays, Nares, Both, [...] 19:25:00 EST, Aerosol, Route to Pharmacy Electronically, NCPDP_[id number], [facility], 158, cm, 05/06/21 6:58:00 EST, Height, 80.... Start Date: 05/13/21 Status: Ordered Reclast = 5 mg, IV Infusion, Once, 0 Refills, Maintenance, 11/06/20 10:24:00 EDT, administered at [facility] 10/2020 Start Date: 11/06/20 Status: Ordered [...] Gm, Refills 11, Route to Pharmacy Electronically, NCPDP_[id number], [facility], 158.02, cm, [...] 1resolved after weight loss 2chronic perst 3gyn 14994 5testing negative insulinoma 6likley dumping sydrome 7abnormal GTT ;sugar 36 two hours into test 8sees gi 9normal CT brain 10new 115.3 cm,right per ct scan recent;seeing gynecology soon;they will review 12vit d deficiency;correct 804645 14per endocrinology monitor 15correction refer GTT; 2 hour glucose 36 16refer GGT 17seeing ortho;pre op 18asma,ama neg/cerulopalsmain wnl,AAT wnl 19Negative hep A antibody positive hep B surface antibody negative antigen negative hep C, normal ferritin 20ukltrasound Social History Social History Type Response Smoking Status Never smoker entered on: 02/20/13 Sex
--- OUTSIDE RECORDS SUMMARY | 2022-08-17 08:30 | XMS_ITS | Continuity of Care Document ---
Author Name Unknown Organization [facility] Address [address] [place] [address]- Care Team Providers Care Splicing Machine Operator Name Role Phone Eran SYSTEMS LEAD, Sue Dahl Primary Care Physician Encounter [facility] Date(s): 04/05/21 - 05/05/21 [facility] [address] [place] [address]- Allergies, Adverse Reactions, Alerts Substance Reaction Severity Status Dust Allergy to pollen Active Pollen seasonal allergies respiratory symptoms Active Incruse Ellipta 1 lightheaded and migraine Active 1dizzy Immunizations Given and Recorded Vaccine Date Status Refusal Reason SARS-CoV-2 mRNA (jipfure-dvji-mqsej) vax 05/01/21 Recorded influenza virus vaccine, inactivated [...] toxoids (Td) 08/03/05 Given 1Result Comment: [12/07/2017] [address]-70 2Result Comment: [12/21/2016] [facility]: [id number] 3Result Comment: [06/10/2015] #3 4Admin Note: per [...] per PCP, # 30 mL, 1 Refills, [facility], 158, cm, 04/09/21 8:13:00 EST, Height, 80.6, kg, 03/08/21 12:18:00 EST, Dry Weight Start Date: 04/30/21 Status: Ordered Dexilant 60 mg oral delayed release capsule 1 capsule = 60 mg, By Mouth, 2 times a day, 30 min before meal, # 60 capsule, 5 Refills, Maintenance, 04/16/21 14:29:00 EST, CR Capsule, [facility], Partial fill upon [...] 1 Refills, Maintenance, 04/06/21 9:45:00 EST, Solution, [facility], Partial [...] 04/23/21 12:32:00 EST, Route to Pharmacy Electronically, [facility], 158, cm, 04/09/21 8:13:00 [...] Date: 12/10/20 Stop Date: 07/08/21 Status: Ordered [place] 0.65% nasal spray 2 sprays, Nares, Both, [...] 8:26:00 EDT, Aerosol, Route to Pharmacy Electronically, NCPDP_[id number], [facility], 158.02, cm, 01/06/21 8:03:00 EDT, Height, 6... Start Date: 01/06/21 Status: Ordered Readi-Cat 2 oral suspension See Instructions, Follow direction for CT, # 2 each, 0 Refills, Maintenance, 04/08/21 16:08:00 EST,[facility], Partial fill upon [...] Gm, Refills 11, Route to Pharmacy Electronically, NCPDP_[id number], [facility], 158.02, cm, 11/13/20 [...] 1resolved after weight loss 2chronic perst 3gyn 76916 5testing negative insulinoma 6likley dumping sydrome 7abnormal GTT ;sugar 36 two hours into test 8sees gi 9normal CT brain 10new 115.3 cm,right per ct scan recent;seeing gynecology soon;they will review 12vit d deficiency;correct 646004 14per endocrinology monitor 15correction refer GTT; 2 hour glucose 36 16refer GGT 17seeing ortho;pre op 18asma,ama neg/cerulopalsmain wnl,AAT wnl 19Negative hep A antibody positive hep B surface antibody negative antigen negative hep C, normal ferritin 20ukltrasound Social History Social History Type Response Smoking Status Never smoker entered on: 02/20/13 Sex
--- OUTSIDE RECORDS SUMMARY | 2022-08-17 08:30 | XMS_ITS | Continuity of Care Document ---
Author Name Unknown Organization [facility] Address [address] [place] [address]- Care Team Providers Care Vp Of Global Marketing Name Role Phone Eran HEAD OF DESIGNSue Primary Care Physician Encounter [facility] Date(s): 02/13/20 - 03/14/20 [facility] [address] [place] [address]- Allergies, Adverse Reactions, Alerts Substance Reaction Severity [...] toxoids (Td) 08/03/05 Given 1Result Comment: [12/07/2017] [id number] 2Result Comment: [12/21/2016] [facility]: [id number] 3Result Comment: [06/10/2015] #3 4Admin Note: per [...] 0 Refills, Maintenance, 07/03/19 13:59:00 EDT, Solution, [facility], 160, cm, 05/29/19 13:36:00 EDT, Height, 56.5, kg, 03... Start Date: 07/03/19 Status: Ordered amitriptyline 25 mg oral tablet 25 mg, 1, tablet, By Mouth, Daily at bedtime, # 30 tablet, Refills 5, Tot. Refills 5, Maintenance, 12/30/19 11:47:00 EDT, Route to Pharmacy Electronically, [facility], 160.02, cm, 12/02/19 6:45:00 [...] 60 capsule, 5 Refills, Maintenance, 12/26/19 12:06:00EDT, [facility], 160.02, cm, 12/02/19 6:45:00 [...] 1 Refills, Soft Stop, 11/20/19 11:59:00 EDT, [facility], 160.02, cm, 11/15/19 10:05:00 [...] 03/17/20 8:36:00 EST, 03/10/20 8:36:00 EST, Film, [facility], 1 patch Topically Daily,x7 days, 160.02, cm, 03/10/20 8:18:00 EST, Height, 67, kg, 09/11/19 11:20:00... Start Date: 03/10/20 Stop Date: 03/17/20 Status: Ordered loratadine 10 mg oral tablet 10 mg, 1, tablet, By Mouth, Daily, # 30 tablet, Refills 11, Tot. Refills 11, Maintenance, 02/25/19 16:55:00 EST, Route to Pharmacy Electronically, [facility], 158, cm, 02/14/19 7:55:00 EST, Height, 61.9, kg, 02/12/19 10:17:00... Start Date: 02/25/19 Status: Ordered montelukast 10 mg oral tablet 10 mg, 1, tablet, By Mouth, Daily in PM, # 90 tablet, Refills 3, Tot. Refills 3, Maintenance, 08/15/19 16:21:00 EDT, Route to Pharmacy Electronically, [facility], 160, cm, 08/15/19 13:45:00 EDT, Height, 56.5, kg, 05/29/19 13:36:00... Start Date: 08/15/19 Status: Ordered ondansetron 4 mg oral tablet, disintegrating 1 tablet = 4 mg, By Mouth, Every 8 hours, PRN as needed for nausea/vomiting, # 9 tablet, 0 Refills,Maintenance, 10/06/19 21:07:00 EDT, DIS Tablet, [facility] Start Date: 10/06/19 Stop Date: 10/09/19 Status: Ordered ProAir HFA 90 mcg/inh inhalation aerosol with adapter 2, puffs, Inhalation, Every 4 hours, PRN, # 8.5 Gm, Refills 2, Tot. Refills 2, Maintenance, 04/29/19 11:32:00 EST, Aerosol, Route to Pharmacy Electronically, NCPDP_[id number], [facility], 160, cm, 04/29/19 10:47:00 EST, Height... Start Date: 04/29/19 Status: Ordered Symbicort 160mcg/4.5mcg Inhaler 2, puffs, Inhalation, 2 times a day, use with spacer chamber, # 1 each, Refills 11, Tot. Refills 11, Maintenance, 07/08/19 13:36:00 EDT, Route to Pharmacy Electronically, NCPDP_[id number], [facility], 160, cm, 07/08/19 13:03:00 ED... Start Date: 07/08/19 Status: Ordered Topamax 50 mg oral tablet See Instructions, take 1 tab in am and 2 tab at bedtime. If AM dose causes bad sedation, add to HS dose., # 90 tablet, 6 Refills, Maintenance, 03/12/20 11:09:00 EST, Tablet, [facility], weaning zonegran off by [...] 6 Refills, Soft Stop, 03/12/20 11:04:00 EST, [facility], Partial fill upon patient request if the prescription is for a schedule II opioid drug., 160.02, cm, 03/10/20 8:18:00 EST, H... Start Date: 03/12/20 Stop Date: 10/08/20 Status: Ordered Zofran 4 mg oral tablet 1 tablet = 4 mg, By Mouth, Every 8 hours, PRN Nausea & Vomiting, # 30 tablet, 0 Refills, Maintenance, 09/30/19 11:23:00 EDT, [facility], 160.02, cm, 09/24/19 15:31:00 [...] perst 3folowed by mental health;recent hospitalization 4gyn 67738 6testing negative insulinoma 7likley dumping sydrome 8abnormal GTT ;sugar 36 two hours into test 9sees gi 10normal CT brain 11new 125.3 cm,right per ct scan recent;seeing gynecology soon;they will review 13vit d deficiency;correct 544102 15per endocrinology monitor 16correction refer GTT; 2 hour glucose 36 17refer GGT 18seeing ortho;pre op 19asma,ama neg/cerulopalsmain wnl,AAT wnl 20Negative hep A antibody positive hep B surface antibody negative antigen negative hep C, normal ferritin 21ukltrasound Social History Social History Type Response Smoking Status Never smoker entered on: 02/20/13 Sex
--- OUTSIDE RECORDS SUMMARY | 2022-08-17 08:30 | XMS_ITS | Continuity of Care Document ---
Author Name Unknown Organization [facility] Address [address] [place] [address]- Care Team Providers Care Vision Teacher Name Role Phone Louisa LANDRUM, Taras Fuentes Primary Care Physician Encounter [facility] Date(s): 03/11/21 - 04/10/21 [facility] [address] [place] [address]- Allergies, Adverse Reactions, Alerts Substance Reaction Severity [...] toxoids (Td) 08/03/05 Given 1Result Comment: [12/07/2017] [id number] 2Result Comment: [12/21/2016] [facility] [place]: [id number] 3Result Comment: [06/10/2015] #3 4Admin Note: per [...] 3 Refills, Maintenance, 02/03/21 8:34:00 EST, Tablet, [facility], Partial fill upon patient request if the prescript... Start Date: 02/03/21 Status: Ordered acarbose 50 mg oral tablet 1 tablet = 50 mg, By Mouth, 3 times a day, Take 1 tab (plus 1 25mg tab), 3 times daily with meals.,# 270 tablet, 3 Refills, Maintenance, 02/03/21 8:34:00 EST, Tablet, [facility], Partial fill upon patient request if the prescript... Start Date: 02/03/21 Status: Ordered [place] One Pack 3 mg nasal powder See Instructions, 3 mg Once intrasnasally for severe hypoglycemia, # 2 each, 3 Refills, Soft Stop, 08/28/20 10:36:00 EDT, [facility], Partial fill upon patient request [...] 5 Refills, Maintenance, 11/06/20 10:28:00 EDT, Tablet, [facility], Replaces loratidine, 158.02, cm, 11/06/20 10:04:00 EDT, Height,67, kg, 09/11/19 11:20:00 EDT, Dry Weight Start Date: 11/06/20 Status: Ordered cholestyramine 4 gm/5 gm oral powder for reconstitution 1 pack/packet, By Mouth, Daily, # 30 pack/packet, 5 Refills, Maintenance, 03/03/21 16:42:00 EST, REC Powder, [facility], Partial fill upon patient request [...] 0 Refills, Soft Stop, 03/16/21 16:05:00 EST, [facility], Partial fill upon patient request if the prescription is for a schedule II opioid drug., 158, cm, 03/11/21 9:1... Start Date: 03/16/21 Status: Ordered Emgality Prefilled Pen 120 mg/mL subcutaneous solution = 120 mg, Subcutaneous Injection, Once, Maintenance Dose, # 1 kit, 5 Refills, Soft Stop, 03/16/21 16:05:00 EST, [facility], Partial fill upon patient request if the prescription is for a schedule II opioid drug., 158, cm, 03/11/21... Start Date: 03/16/21 Status: Ordered EPINEPHrine 1 mg/mL injectable solution 0.3 mL = 0.3 mg, Intramuscular, Once, # 1 mL, 1 Refills, Soft Stop, 03/08/21 15:07:00 EST, Solution, [facility], Partial fill upon patient request [...] 1 Refills, Soft Stop, 11/20/19 11:59:00 EDT, [facility], 160.02, cm, 11/15/19 10:05:00 EDT, Height, 67, kg, 09/11/19 11:20:00 EDT, Dry Weight Start Date: 11/20/19 Status: Ordered Lidocaine Viscous 2% solution 5 mL = 0.1 Gm, By Mouth, 4 times a day, PRN for epigastric pain, # 200 mL, 1 Refills, Maintenance, 04/06/21 9:45:00 EST, Solution, [facility], Partial fill upon patient request if the prescription is for a schedule II opioid drug.... Start Date: 04/06/21 Status: Ordered meclizine 25 mg oral tablet See Instructions, PRN for dizziness, Take 1 tablet every 8 hours as needed for dizziness, # 15 tablet, 0 Refills, Maintenance, 11/03/20 7:49:00 EDT, Tablet, [facility], Partial fill upon patient request if the prescription is for... Start Date: 11/03/20 Status: Ordered montelukast 10 mg oral tablet 10 mg, 1, tablet, By Mouth, Daily in PM, # 90 tablet, Refills 3, Tot. Refills 3, Maintenance, 08/15/19 16:21:00 EDT, Route to Pharmacy Electronically, [facility], 160, cm, 08/15/19 13:45:00 EDT, [...] 6 Refills, Maintenance, 12/10/20 12:36:00 EDT,DIS Tablet, [facility], has t... Start Date: 12/10/20 Stop Date: 07/08/21 Status: Ordered [place] 0.65% nasal spray 2 sprays, Nares, Both, 4 times a day, # 1 each, 0 Refills, Maintenance, 10/30/20 11:34:00 EDT, [facility], Partial fill upon patient request if the prescription is for a scheduleII opioid drug., 2 sprays Nares, Both 4 times a day... Start Date: 10/30/20 Status: Ordered ProAir HFA 90 mcg/inh inhalation aerosol with adapter 2, puffs, Inhalation, Every 4 hours, PRN, # 8.5 Gm, Refills 1, Tot. Refills 1, Maintenance, 01/06/21 8:26:00 EDT, Aerosol, Route to Pharmacy Electronically, NCPDP_[id number], [facility], 158.02, cm, 01/06/21 8:03:00 EDT, Height, 6... Start Date: 01/06/21 Status: Ordered Readi-Cat 2 oral suspension See Instructions, Follow direction for CT, # 2 each, 0 Refills, Maintenance, 04/08/21 16:08:00 EST,[facility], Partial fill upon patient [...] Gm, Refills 11, Route to Pharmacy Electronically, NCPDP_[id number], [facility], 158.02, cm, 11/13/20 8:38:00 EDT, [...] mL, 1 Refills, Maintenance, 01/06/21 13:36:00 EDT, [facility], Partialfill upon patient request if [...] 1resolved after weight loss 2chronic perst 3gyn 84984 5testing negative insulinoma 6likley dumping sydrome 7abnormal GTT ;sugar 36 two hours into test 8sees gi 9normal CT brain 10new 115.3 cm,right per ct scan recent;seeing gynecology soon;they will review 12vit d deficiency;correct 089653 14per endocrinology monitor 15correction refer GTT; 2 hour glucose 36 16refer GGT 17seeing ortho;pre op 18asma,ama neg/cerulopalsmain wnl,AAT wnl 19Negative hep A antibody positive hep B surface antibody negative antigen negative hep C, normal ferritin 20ukltrasound Social History Social History Type Response Smoking Status Never smoker entered on: 02/20/13 Sex
--- OUTSIDE RECORDS SUMMARY | 2022-08-17 08:30 | XMS_ITS | Continuity of Care Document ---
Author Name Unknown Organization [facility] y Address [address] [place] [address] sandi, [address] [place] [address]- Care Team Providers Care Cyber Forensic Specialist Name Role Phone Louisa LANDRUM, Taras Fuentes Primary Care Physician [facility]counter [facility] Date(s): 08/07/20 - 09/06/20 [facility] [address] [place] [address], [address] [place], [place] [address] Allergies, Adverse Reactions, Alerts Substance Reaction Severity [...] toxoids (Td) 08/03/05 Given 1Result Comment: [12/07/2017] [id number] 2Result Comment: [12/21/2016] [facility]: [id number] 3Result Comment: [06/10/2015] #3 4Admin Note: per pt 5Admin Note: given in clinic Medications acarbose 50 mg oral tablet 1 tablet = 50 mg, By Mouth, 3 times a day, Take 3 times daily with meals. E11.65, # 90 tablet, 5 Refills, Maintenance, 07/13/20 16:29:00 EDT, Tablet, [facility], Partial fill upon patient request [...] 0 Refills, Maintenance, 07/03/19 13:59:00 EDT, Solution, [facility], 160, cm, 05/29/19 13:36:00 EDT, Height, 56.5, kg, 03... Start Date: 07/03/19 Status: Ordered amitriptyline 50 mg oral tablet 1 tablet = 50 mg, By Mouth, Daily at bedtime, # 30 tablet, 5 Refills, Maintenance, 07/22/20 8:03:00EDT, [facility], Partial fill upon patient request if the prescription is for a schedule II opioid drug., 158.02, cm, 07/06/20 6:4... Start Date: 07/22/20 Status: Ordered Baqsimi One Pack 3 mg nasal powder See Instructions, 3 mg Once intrasnasally for severe hypoglycemia, # 2 each, 3 Refills, Soft Stop, 08/28/20 10:36:00 EDT, [facility], Partial fill upon patient request [...] 1 Refills, Soft Stop, 11/20/19 11:59:00 EDT, [facility], 160.02, cm, 11/15/19 10:05:00 EDT, [...] 02/25/19 16:55:00 EST, Route to Pharmacy Electronically, [facility], 158, cm, 02/14/19 7:55:00 EST, Height, 61.9, kg, 02/12/19 10:17:00... Start Date: 02/25/19 Status: Ordered montelukast 10 mg oral tablet 10 mg, 1, tablet, By Mouth, Daily in PM, # 90 tablet, Refills 3, Tot. Refills 3, Maintenance, 08/15/19 16:21:00 EDT, Route to Pharmacy Electronically, [facility], 160, cm, 08/15/19 13:45:00 EDT, [...] 0 Refills, Maintenance, 08/27/20 9:45:00 EDT, Capsule, [facility], Partial fill upon patient request if the prescription is for a schedule II opioid drug., 158.02, cm, 08/27/20 9:2... Start Date: 08/27/20 Stop Date: 09/26/20 Status: Ordered ProAir HFA 90 mcg/inh inhalation aerosol with adapter 2, puffs, Inhalation, Every 4 hours, PRN, # 8.5 Gm, Refills 2, Tot. Refills 2, Maintenance, 04/29/19 11:32:00 EST, Aerosol, Route to Pharmacy Electronically, NCPDP_[id number], [facility], 160, cm, 04/29/19 10:47:00 EST, Height... Start Date: 04/29/19 Status: Ordered Symbicort 160mcg/4.5mcg Inhaler 2, puffs, Inhalation, 2 times a day, Refills 0, Maintenance, 08/27/20 9:43:00 EDT, Aerosol Start Date: 08/27/20 Status: Ordered Topamax 50 mg oral tablet 2 tablet = 100 mg, By Mouth, Daily at bedtime, # 60 tablet, 6 Refills, Maintenance, 08/04/20 11:44:00 EDT, Tablet, [facility], 158.02, cm, 07/06/20 6:49:00 EDT, [...] 6 Refills, Soft Stop, 08/04/20 11:37:00 EDT, [facility], Partial fill upon patient request [...] 1resolved after weight loss 2chronic perst 3gyn 32007 5testing negative insulinoma 6likley dumping sydrome 7abnormal GTT ;sugar 36 two hours into test 8sees gi 9normal CT brain 10new 115.3 cm,right per ct scan recent;seeing gynecology soon;they will review 12vit d deficiency;correct [id number] 14per endocrinology monitor 15correction refer GTT; 2 hour glucose 36 16refer GGT 17seeing ortho;pre op 18asma,ama neg/cerulopalsmain wnl,AAT wnl 19Negative hep A antibody positive hep B surface antibody negative antigen negative hep C, normal ferritin 20ukltrasound Social History Social History Type Response Smoking Status Never smoker entered on: 02/20/13 Sex
--- OUTSIDE RECORDS SUMMARY | 2022-08-17 08:30 | XMS_ITS | Continuity of Care Document ---
Author Name Unknown Organization [facility] Address [address] [place] [address] ve [address] [place] [address]- Care Team Providers Care Perishable Freight Inspector Name Role Phone Eran PRINT BUYER, Sue Dahl Primary Care Physician Encounter [facility] Date(s): 03/03/22 - 04/10/22 [facility] [address] [place] [address]- Attending Physician: Not on Staff, Attending MD Allergies, Adverse Reactions, Alerts Substance Reaction Severity Status Dust Allergy to pollen Active Pollen seasonal allergies respiratory symptoms Active Incruse Ellipta 1 lightheaded and migraine Active 1dizzy Immunizations Given and Recorded Vaccine Date Status Refusal Reason [id number] 12y+ bivalent booster vax 1 12/24/21 Given [...] vaccine, inactivated 02/08/11 Give n SARS-CoV-2 mRNA ([id number]) vax 05/01/21 Recorded zoster vaccine, inactivated 11/03/20 [...] tetanus-diphtheria toxoids (Td) 08/03/05 Given 1Result Comment: [id number] 2Result Comment: [id number] 3Result Comment: [12/07/2017] [address]-17 4Result Comment: [12/21/2016] [facility]: [id number] 5Result Comment: [06/10/2015] #3 6Admin Note: per pt 7Admin Note: given in clinic Medications acetaminophen 500 mg oral tablet 2 tablet = 1,000 mg, By Mouth, Every 6 hours, PRN as needed for fever, # 200 tablet, 0 Refills, Maintenance, 12/03/21 10:17:00 EDT, Tablet, [facility], Partial fill upon patient request if the prescription is for a schedule II opi... Start Date: 12/03/21 Status: Ordered Albuterol (Eqv-ProAir HFA) 90 mcg/inh inhalation aerosol 2 puffs, Inhalation, Every 4 hours, PRN NEEDED FOR WHEEZING, # 8.5 Gm, 5 Refills, Maintenance, 03/09/22 11:21:00 EST, [facility], 17, INHALE TWO PUFFS [...] 6 Refills, Maintenance, 11/03/21 8:23:00 EDT, Tablet, [facility], 2 tablet By Mouth [...] Refills, Maintenance, 11/22/21 9:49:00 EDT, CR Capsule, [facility], Partial fill upon patient request if the prescription is for a schedule II opioid... Start Date: 11/22/21 Status: Ordered Emgality Prefilled Pen 120 mg/mL subcutaneous solution = 120 mg, Subcutaneous Injection, Once, Maintenance Dose, # 3 kit, 2 Refills, Soft Stop, 03/17/22 8:08:00 EST, [facility], requesting 3 month supply [...] 6 Refills, Maintenance, 01/31/22 14:05:00 EST, Suspension, [facility], Partial fill upon patient request if the prescription is for a schedule II opioid drug., 163, cm, 01/18... Start Date: 01/31/22 Stop Date: 08/29/22 Status: Ordered Fiber Choice 1.5 g oral tablet, chewable 1 tablet = 1.5 Gm, Chew, 3 times a day, # 90 tablet, 0 Refills, Maintenance, 04/09/22 15:16:00 EST,Chew Tablet, [facility] #[id number], Partial fill upon patient request if the prescription is for a schedule II opioid drug., 158, cm, 04/06/22 14... Start Date: 04/09/22 Status: Ordered Freestyle Lite Lancets See Instructions, [...] Refills, Maintenance, 04/09/22 15:16:00 EST, REC Powder, [facility] #[id number], Partial fill upon patient request if the prescription is for a schedule II opioid drug., 17 Gm... Start Date: 04/09/22 Status: Ordered montelukast 10 mg oral tablet 1, tablet, By Mouth, Daily in PM, # 90 tablet, Refills 1, Tot. Refills 1, Maintenance, 11/14/21 11:28:00 EDT, Route to Pharmacy Electronically, [facility], 158, cm, 11/03/21 8:01:00 EDT, Height, 71.5, kg, 09/01/21 16:21:00 EDT, Start Date: 11/14/21 Status: Ordered Nurtec ODT 75 mg oral tablet, disintegrating See Instructions, TAKE ONE TABLET DAILY NEEDED FOR migraines, DO NOT EXCEED ONE TABLET IN 24 HOURS, # 8 tablet, 6 Refills, Maintenance, 12/28/21 15:14:00 EDT, [facility], 163,cm, 12/24/21 8:20:00 EDT, Height, 67, kg, 11/26/21... Start Date: 12/28/21 Status: Ordered oxyCODONE 5 mg oral tablet 5 mg, By Mouth, Every 6 hours, PRN, Do not drive on narcotic medications., # 5 tablet, Refills 0, Tot. Refills 0, Soft Stop, Pain , Moderate, 03/24/22 14:12:00 EST, Route to Pharmacy Electronically, [facility], Partial fill upon p... Start Date: 03/24/22 Status: Ordered Readi-Cat 2 oral suspension See Instructions, Dispense 2 bottles (450ml each bottle). Drink first bottle [address] scan[address] Drink second bottle [address] scan., # 2 each, 0 Refills, Maintenance, 04/06/22 15:29:00 EST, [id number], Partial fi... Start Date: 04/06/22 Status: Ordered Reclast = 5 mg, IV Infusion, Once, 0 Refills, Maintenance, 11/06/20 10:24:00 EDT, administered at [facility] 10/2020 Start Date: 11/06/20 Status: Ordered Stool Softener + Stimulant Laxative 50 mg-8.6 mg oral capsule 1 capsule, By Mouth, Daily in PM, # 60 capsule, 0 Refills, Maintenance, 04/09/22 15:17:00 EST, Capsule, [facility] #[id number], Partial fill upon patient request if the prescription is for a schedule II opioid drug., 1 capsule By Mouth Daily in P... Start Date: 04/09/22 Status: Ordered Symbicort 160mcg/4.5mcg Inhaler 2, puffs, Inhalation, 2 times a day, rinse mouth and throat after use, # 10.2 Gm, Refills 3, Tot. Refills 3, Maintenance, 11/23/21 19:57:00 EDT, Route to Pharmacy Electronically, NCPDP_[id number], [facility], 158, cm, 11/03/21 8:0... [...] opioid drug. Start Date: 03/22/22 Status: Ordered ZyrTEC 10 mg oral tablet 1 tablet = 10 mg, By Mouth, Daily, Replaces Claritin. Can give 90 day supply, # 30 tablet, 5 Refills, Maintenance, 12/10/21 9:44:00 EDT, Tablet, [facility], Partial [...] Active Vitamin D deficiency Confirmed Active 1gyn 83715 3testing negative insulinoma 4likley dumping sydrome 5abnormal GTT ;sugar 36 two hours into test 6normal CT brain 7new 8resolved after weight loss 9chronic perst 105.3 cm,right per ct scan recent;seeing gynecology soon;they will review 11vit d deficiency;correct 257009 13per endocrinology monitor 14correction refer GTT; 2 hour glucose 36 15refer GGT 16seeing ortho;pre op 17asma,ama neg/cerulopalsmain wnl,AAT wnl 18Negative hep A antibody positive hep B surface antibody negative antigen negative hep C, normal ferritin 19ukltrasound Social History Social History Type Response Smoking Status Never smoker entered on: 02/20/13 Sex Patient Care team information Care Team Personnel Name: Caitlyn Mcgee RN Position: [facility] RN Member Role: Primary Care Nurse Name: Sue Barillas NP Position: [facility] PCO Associate Professional Member Role: PCP Address: Address: [address] [place] [id number] Name: Andria Guadalupe RN Position: [facility] SN RN Member Role: Primary Care Nurse Name: Liz Martin RN Position: [facility] RN Member Role: Primary Care Nurse Name: Ambreen Mcmahon RN Position: [facility] RN Member Role: Primary Care Nurse Name: Irais Grijalva RN Position: [facility] RN Member Role: Primary Care Nurse Name: Autumn Martinez RN Position: [facility] SN RN Member Role: Primary Care Nurse Name: Concha Mckinley RN Position: [facility] RN Member Role: Primary Care Nurse Name: Liz English RN Position: [facility] RN Member Role: Primary Care Nurse Name: Dora Williamson RN Position: [facility] RN Member Role: Primary Care Nurse Care Team Related Persons Name: KHUSHI CUNNINGHAM Address: [address] [place] [address] Name: BHUPINDER VENEGAS Address: [address] [place] [address] Name: FELIPE FLORES Address: home [address] [place] [address] Name: ARNAV FLORES Address: home [address] [place], [place] Name: IRINA FLORES Address: home [address] [place] [address] Name: RUSLAN FLORES Address: home [address] [place] [address] Name: KAISER PLUNKETT Address: home [address] [place] [address]
--- OUTSIDE RECORDS SUMMARY | 2022-08-17 08:30 | XMS_ITS | Continuity of Care Document ---
Author Name Unknown Organization [facility] Address [address] [place] [address]- Care Team Providers Care Senior Construction Estimator Name Role Phone Eran Sue JOHNSON Primary Care Physician [place] [facility] [place] 11[place]29[place]21 - 12/29/21 [facility] [address] [place] [address] Allergies, Adverse Reactions, Alerts Substance Reaction Severity Status Dust Allergy to pollen Active Pollen seasonal allergies respiratory symptoms Active Incruse Ellipta 1 lightheaded and migraine Active 1dizzy Immunizations Given and Recorded Vaccine Date Status Refusal Reason [id number] 12y+ bivalent booster vax 1 12/24/21 Given [...] vaccine, inactivated 02/08/11 Give n SARS-CoV-2 mRNA ([id number]) vax 05/01/21 Recorded zoster vaccine, inactivated 11/03/20 [...] tetanus-diphtheria toxoids (Td) 08/03/05 Given 1Result Comment: [id number] 2Result Comment: [id number] 3Result Comment: [12/07/2017] [id number] 4Result Comment: [12/21/2016] [facility]: [id number] 5Result Comment: [06/10/2015] #3 6Admin Note: per pt 7Admin Note: given in clinic Medications acarbose 25 mg oral tablet See Instructions, 1 tablet with 50 mg (total 75 mg) By Mouth before lunch, # 30 each, 11 Refills, Maintenance, 11/03/21 8:24:00 EDT, Tablet, [facility], 158, cm, 11/03/21 8:01:00EDT, Height, 71.5, kg, 09/01/21 16:21:00 EDT, Dry W... Start Date: 11/03/21 Status: Ordered acarbose 50 mg oral tablet See Instructions, 1 tablet with 25 mg (total 75 mg) By Mouth before lunch, # 30 each, 11 Refills, Maintenance, 11/03/21 8:23:00 EDT, Tablet, [facility], Partial fill upon patientrequest if the prescription is for a schedule II op... Start Date: 11/03/21 Status: Ordered acetaminophen 500 mg oral tablet 2 tablet = 1,000 mg, By Mouth, Every 6 hours, PRN as needed for fever, # 200 tablet, 0 Refills, Maintenance, 12/03/21 10:17:00 EDT, Tablet, [facility], Partial fill upon patient request if the prescription is for a schedule II opi... Start Date: 12/03/21 Status: Ordered Albuterol (Eqv-ProAir HFA) 90 mcg/inh inhalation aerosol 2 puffs, Inhalation, Every 4 hours, PRN NEEDED FOR WHEEZING, # 8.5 Gm, 1 Refills, Maintenance, 12/03/21 14:16:00 EDT, [facility], 18, INHALE TWO PUFFS EVERY 4 HOURS NEEDED FOR WHEEZING, 163, cm, 12/03/21 9:39:00 EDT, Height,... Start Date: 12/03/21 Status: Ordered calcium (as citrate)-vitamin D 315 mg-250 intl units oral tablet 2 tablet, By Mouth, 2 times a day, # 120 tablet, 6 Refills, Maintenance, 11/03/21 8:23:00 EDT, Tablet, [facility], 2 tablet By Mouth 2 [...] Refills, Maintenance, 11/22/21 9:49:00 EDT, CR Capsule, [facility], Partial fill upon patient request if the prescription is for a schedule II opioid... Start Date: 11/22/21 Status: Ordered Emgality Prefilled Pen 120 mg/mL subcutaneous solution = 120 mg, Subcutaneous Injection, Once, Maintenance Dose, # 1 kit, 6 Refills, Soft Stop, 06/29/21 10:09:00 EDT, [facility], Partial fill upon patient request if the prescription is for a schedule II opioid drug., 158, cm, 06/29/21... Start Date: 06/29/21 Status: Ordered EPINEPHrine 1 mg/mL injectable solution 0.3 mL = 0.3 mg, Intramuscular, Once, # 1 mL, 1 Refills, Soft Stop, 03/08/21 15:07:00 EST, Solution, [facility], Partial fill upon patient request [...] 11/15/21 10:56:00 EDT, Route to Pharmacy Electronically, [facility], 158, cm, 11/03/21 8:01:00 EDT, Height, 71.5, kg, 09/01/21 16:21:00 EDT, Mark Start Date: 11/15/21 Status: Ordered montelukast 10 mg oral tablet 1, tablet, By Mouth, Daily in PM, # 90 tablet, Refills 1, Tot. Refills 1, Maintenance, 11/14/21 11:28:00 EDT, Route to Pharmacy Electronically, [facility], 158, cm, 11/03/21 8:01:00 EDT, Height, 71.5, kg, 09/01/21 16:21:00 EDT, Start Date: 11/14/21 Status: Ordered Nurtec ODT 75 mg oral tablet, disintegrating See Instructions, TAKE ONE TABLET DAILY NEEDED FOR migraines, DO NOT EXCEED ONE TABLET IN 24 HOURS, # 8 tablet, 6 Refills, Maintenance, 12/28/21 15:14:00 EDT, [facility], 163,cm, 12/24/21 8:20:00 EDT, Height, [...] 11/23/21 19:57:00 EDT, Route to Pharmacy Electronically, NCPDP_[id number], [facility], 158, cm, 11/03/21 8:0... Start [...] 5 Refills, Maintenance, 12/10/21 9:44:00 EDT, Tablet, [facility], Partial fill upon patient request [...] Active Vitamin D deficiency Confirmed Active 1gyn 59546 3testing negative insulinoma 4likley dumping sydrome 5abnormal GTT ;sugar 36 two hours into test 6sees gi 7normal CT brain 8new 9resolved after weight loss 10chronic perst 115.3 cm,right per ct scan recent;seeing gynecology soon;they will review 12vit d deficiency;correct [id number] 14per endocrinology monitor 15correction refer GTT; 2 hour glucose 36 16refer GGT 17seeing ortho;pre op 18asma,ama neg/cerulopalsmain wnl,AAT wnl 19Negative hep A antibody positive hep B surface antibody negative antigen negative hep C, normal ferritin 20ukltrasound Social History Social History Type Response Smoking Status Never smoker entered on: 02/20/13 Sex Patient Care team information Personnel Name: Sue Barillas NP Address: Address: [address] [place] [id number]
--- OUTSIDE RECORDS SUMMARY | 2022-08-17 08:30 | XMS_ITS | Continuity of Care Document ---
Author Name Unknown Organization [facility] Address [address] [place] [address]- Care Team Providers Care Career Developer Name Role Phone Louisa LANDRUM, Taras Fuentes Primary Care Physician Encounter [facility] Date(s): 05/07/20 - 06/06/20 [facility] [address] [place] [address] Allergies, Adverse Reactions, Alerts Substance [...] toxoids (Td) 08/03/05 Given 1Result Comment: [12/07/2017] [id number] 2Result Comment: [12/21/2016] [facility]: [id number] 3Result Comment: [06/10/2015] #3 4Admin Note: per [...] 0 Refills, Maintenance, 07/03/19 13:59:00 EDT, Solution, [facility], 160, cm, 05/29/19 [...] 60 capsule, 5 Refills, Maintenance, 05/07/20 15:54:00EST, [facility], 160.02, cm, 05/01/20 9:18:00 [...] 1 Refills, Soft Stop, 11/20/19 11:59:00 EDT, [facility], 160.02, cm, 11/15/19 [...] 02/25/19 16:55:00 EST, Route to Pharmacy Electronically, [facility], 158, cm, 02/14/19 7:55:00 EST, Height, 61.9, kg, 02/12/19 10:17:00... Start Date: 02/25/19 Status: Ordered montelukast 10 mg oral tablet 10 mg, 1, tablet, By Mouth, Daily in PM, # 90 tablet, Refills 3, Tot. Refills 3, Maintenance, 08/15/19 16:21:00 EDT, Route to Pharmacy Electronically, [facility], 160, cm, 08/15/19 13:45:00 EDT, Height, 56.5, kg, 05/29/19 13:36:00... Start Date: 08/15/19 Status: Ordered ProAir HFA 90 mcg/inh inhalation aerosol with adapter 2, puffs, Inhalation, Every 4 hours, PRN, # 8.5 Gm, Refills 2, Tot. Refills 2, Maintenance, 04/29/19 11:32:00 EST, Aerosol, Route to Pharmacy Electronically, NCPDP_[id number], [facility], 160, cm, 04/29/19 10:47:00 EST, Height... Start Date: 04/29/19 Status: Ordered Topamax 50 mg oral tablet See Instructions, take 1 tab in am and 2 tab at bedtime. If AM dose causes bad sedation, add to HS dose., # 90 tablet, 6 Refills, Maintenance, 03/12/20 11:09:00 EST, Tablet, [facility], weaning zonegran off by 25mg every 2 days t... Start Date: 03/12/20 Status: Ordered ubrogepant 100 mg oral tablet 1 tablet = 100 mg, By Mouth, Daily, # 10 tablet, 6 Refills, Soft Stop, 03/12/20 11:04:00 EST, [facility], Partial fill upon [...] perst 3folowed by mental health;recent hospitalization 4gyn 29816 6testing negative insulinoma 7likley dumping sydrome 8abnormal GTT ;sugar 36 two hours into test 9sees gi 10normal CT brain 11new 125.3 cm,right per ct scan recent;seeing gynecology soon;they will review 13vit d deficiency;correct 850830 15per endocrinology monitor 16correction refer GTT; 2 hour glucose 36 17refer GGT 18seeing ortho;pre op 19asma,ama neg/cerulopalsmain wnl,AAT wnl 20Negative hep A antibody positive hep B surface antibody negative antigen negative hep C, normal ferritin 21ukltrasound Social History Social History Type Response Smoking Status Never smoker entered on: 02/20/13 Sex
--- OUTSIDE RECORDS SUMMARY | 2022-08-17 08:30 | XMS_ITS | Continuity of Care Document ---
Author Name Unknown Organization [facility] Address [address] [place] [address], [address] [place] [address]- Care Team Providers Care Watch Assembly Inspector Name Role Phone Louisa LANDRUM, Taras Fuentes Primary Care Physician [phone] Encounter [facility] Date(s): 08/27/19 - 09/26/19 [facility] [address] [place] [address], [address] [place] [address]- [facility] Attending Physician: Konrad Curtis Admitting Physician: AdmKonrad [...] toxoids (Td) 08/03/05 Given 1Result Comment: [12/07/2017] [address]-26 2Result Comment: [12/21/2016] [facility]: [id number] 3Result Comment: [06/10/2015] #3 4Admin Note: per [...] 07/07/2012:36:00 EDT, Aerosol, Route to Pharmacy Electronically, NCPDP_[id number], [facility], 160, cm, 07/08/19 13:03:00 EDT, [...] 60 capsule, 5 Refills, Maintenance, 07/30/19 10:21:00EDT, [facility], 160, cm, 07/08/19 13:03:00 EDT, Height, 56.5, kg, 05/29/19 13:36:00 EDT, Dry Weight Start Date: 07/30/19 Status: Ordered eletriptan 40 mg oral tablet 1 tablet = 40 mg, By Mouth, Daily, PRN for migraine headache, # 9 tablet, 5 Refills, Soft Stop, 07/16/19 9:23:00 EDT, Tablet, [facility], she has tried sumatriptan and [...] each, 1 Refills, Maintenance, 07/30/19 10:21:00 EDT, [facility], 160, cm, 07/08/19 13:03:00 EDT, [...] mg oral tablet 1 pack/packet, By Mouth, Daily, for 6 days, as directed on package labeling, # 21 tablet, 0 Refills, Acute 09/30/19 15:52:00 EDT, 09/24/19 15:52:00 EDT, Tablet, [facility], 160.02, cm, 09/24/19 15:31:00 EDT, Height, 67, kg, ... Start Date: 09/24/19 Stop Date: 09/30/19 Status: Ordered montelukast 10 mg oral tablet [...] 11:32:00 EST, Aerosol, Route to Pharmacy Electronically, NCPDP_[id number], [facility] - [facility], [...] 07/08/19 13:36:00 EDT, Route to Pharmacy Electronically, NCPDP_[id number], [facility], 160, cm, 07/08/19 13:03:00 ED... Start Date: 07/08/19 Status: Ordered Topamax 50 mg oral tablet 1 tablet = 50 mg, By Mouth, Daily at bedtime, after weaning off zonegran, take 50mg at HS for 2 weeks then increase to 100mg at HS, # 30 tablet, 6 Refills, Maintenance, 07/16/19 10:51:00 EDT, Tablet,[facility], weaning zonegran o... Start Date: [...] perst 3folowed by mental health;recent hospitalization 4gyn 20355 6testing negative insulinoma 7likley dumping sydrome 8abnormal GTT ;sugar 36 two hours into test 9sees gi 10normal CT brain 11new 125.3 cm,right per ct scan recent;seeing gynecology soon;they will review 13vit d deficiency;correct 207419 15per endocrinology monitor 16correction refer GTT; 2 hour glucose 36 17refer GGT 18seeing ortho;pre op 19asma,ama neg/cerulopalsmain wnl,AAT wnl 20Negative hep A antibody positive hep B surface antibody negative antigen negative hep C, normal ferritin 21ukltrasound Social History Social History Type Response Smoking Status Never smoker entered on: 02/20/13 Sex
--- OUTSIDE RECORDS SUMMARY | 2022-08-17 08:30 | XMS_ITS | Continuity of Care Document ---
Author Name Unknown Organization [facility] Address [address] [place] [address]- Care Team Providers Care Toolmaker Name Role Phone Louisa LANDRUM, Taras Fuentes Primary Care Physician Encounter [facility] Date(s): 11/09/20 - 12/09/20 [facility] [address] [place] [address]- Allergies, Adverse Reactions, Alerts Substance Reaction Severity [...] toxoids (Td) 08/03/05 Given 1Result Comment: [12/07/2017] [address]-08 2Result Comment: [12/21/2016] [facility]: [id number] 3Result Comment: [06/10/2015] #3 4Admin Note: per [...] 6 Refills, Maintenance, 11/12/20 10:44:00 EDT,DIS Tablet, [facility], has t... Start Date: 11/12/20 Status: Ordered Ryder 0.65% nasal spray 2 sprays, Nares, Both, [...] 0 Refills, Maintenance, 08/27/20 9:45:00 EDT, Capsule, [facility] [...] 11:32:00 EST, Aerosol, Route to Pharmacy Electronically, NCPDP_[id number], [facility] - [...] Gm, Refills 11, Route to Pharmacy Electronically, NCPDP_[id number], [facility], 158.02, [...] capsule, 5 Refills, Maintenance, 11/12/20 10:43:00 EDT, [facility], [...] 1resolved after weight loss 2chronic perst 3gyn 54265 5testing negative insulinoma 6likley dumping sydrome 7abnormal GTT ;sugar 36 two hours into test 8sees gi 9normal CT brain 10new 115.3 cm,right per ct scan recent;seeing gynecology soon;they will review 12vit d deficiency;correct 067047 14per endocrinology monitor 15correction refer GTT; 2 hour glucose 36 16refer GGT 17seeing ortho;pre op 18asma,ama neg/cerulopalsmain wnl,AAT wnl 19Negative hep A antibody positive hep B surface antibody negative antigen negative hep C, normal ferritin 20ukltrasound Social History Social History Type Response Smoking Status Never smoker entered on: 02/20/13 Sex
--- OUTSIDE RECORDS SUMMARY | 2022-08-17 08:30 | XMS_ITS | Continuity of Care Document ---
Author Name Unknown Organization [facility] Address [address] [facility], [address], [address] [place] [address]- Care Team Providers Care Livestock Sales Representative Name Role Phone Louisa LANDRUM, Taras Fuentes Primary Care Physician [phone] Encounter [facility] Date(s): 10/24/19 - 11/23/19 [facility] [address] [place], [address], [address] [place] [address]- [facility] Allergies, Adverse Reactions, Alerts Substance [...] toxoids (Td) 08/03/05 Given 1Result Comment: [12/07/2017] [address]-43 2Result Comment: [12/21/2016] [facility]: [id number] 3Result Comment: [06/10/2015] #3 4Admin Note: per [...] 07/07/2012:36:00 EDT, Aerosol, Route to Pharmacy Electronically, NCPDP_[id number], [facility], 160, cm, 07/08/19 13:03:00 EDT, Height, [...] 60 capsule, 5 Refills, Maintenance, 07/30/19 10:21:00EDT, [facility], 160, cm, 07/08/19 13:03:00 EDT, Height, 56.5, kg, 05/29/19 13:36:00 EDT, Dry Weight Start Date: 07/30/19 Status: Ordered eletriptan 40 mg oral tablet 1 tablet = 40 mg, By Mouth, Daily, PRN for migraine headache, # 9 tablet, 5 Refills, Soft Stop, 07/16/19 9:23:00 EDT, Tablet, [facility], she has tried sumatriptan and rizatriptan. [...] Refills, Maintenance, 11/15/19 10:29:00 EDT, REC Powder, [facility], 240 mL By Mouth Every 10 minutes, 160.02, cm, 11/15/19 10:05:00 EDT, Height, 67, kg, 09/11/19 11:20:00 EDT, Dry... Start Date: 11/15/19 Status: Ordered ondansetron 4 mg oral tablet, disintegrating 1 tablet = 4 mg, By Mouth, Every 8 hours, PRN as needed for nausea/vomiting, # 9 tablet, 0 Refills,Maintenance, 10/06/19 21:07:00 EDT, DIS Tablet, [facility] Start Date: 10/06/19 Stop Date: 10/09/19 Status: Ordered ProAir HFA 90 mcg/inh inhalation aerosol with adapter 2, puffs, Inhalation, Every 4 hours, PRN, # 8.5 Gm, Refills 2, Tot. Refills 2, Maintenance, 04/29/19 11:32:00 EST, Aerosol, Route to Pharmacy Electronically, NCPDP_[id number], [facility] - [...] 07/08/19 13:36:00 EDT, Route to Pharmacy Electronically, NCPDP_[id number], [facility], 160, cm, 07/08/19 13:03:00 ED... Start Date: 07/08/19 Status: Ordered Topamax 50 mg oral tablet 2 tablet = 100 mg, By Mouth, Daily at bedtime, # 60 tablet, 6 Refills, Maintenance, 11/04/19 11:08:00 EDT, Tablet, [facility], weaning zonegran off by 25mg every 2 days then can start topamax., 160.02, cm, 10/29/19 12:35:00 EDT, H... Start Date: 11/04/19 Stop Date: 06/01/20 Status: Ordered Zofran 4 mg oral tablet 1 tablet = 4 mg, By Mouth, Every 8 hours, PRN Nausea & Vomiting, # 30 tablet, 0 Refills, Maintenance, 09/30/19 11:23:00 EDT, [facility], 160.02, cm, 09/24/19 15:31:00 EDT, Height, [...] perst 3folowed by mental health;recent hospitalization 4gyn 73657 6testing negative insulinoma 7likley dumping sydrome 8abnormal GTT ;sugar 36 two hours into test 9sees gi 10normal CT brain 11new 125.3 cm,right per ct scan recent;seeing gynecology soon;they will review 13vit d deficiency;correct 633080 15per endocrinology monitor 16correction refer GTT; 2 hour glucose 36 17refer GGT 18seeing ortho;pre op 19asma,ama neg/cerulopalsmain wnl,AAT wnl 20Negative hep A antibody positive hep B surface antibody negative antigen negative hep C, normal ferritin 21ukltrasound Social History Social History Type Response Smoking Status Never smoker entered on: 02/20/13 Sex
--- OUTSIDE RECORDS SUMMARY | 2022-08-17 08:31 | XMS_ITS | Continuity of Care Document ---
Author Name Unknown Organization [facility] Address [address] [place] [address]- Care Team Providers Care Client Executive Name Role Phone Louisa LANDRUM, Taras Fuentes Primary Care Physician [facility] Date(s): 05/08/20 - 06/07/20 [facility] [address] [place] [address]- Allergies, Adverse Reactions, Alerts Substance Reaction Severity [...] toxoids (Td) 08/03/05 Given 1Result Comment: [12/07/2017] [address]-92 2Result Comment: [12/21/2016] [facility]: [id number] 3Result Comment: [06/10/2015] #3 4Admin Note: per [...] 11:32:00 EST, Aerosol, Route to Pharmacy Electronically, NCPDP_[id number], [facility], 160, [...] perst 3folowed by mental health;recent hospitalization 4gyn 72947 6testing negative insulinoma 7likley dumping sydrome 8abnormal GTT ;sugar 36 two hours into test 9sees gi 10normal CT brain 11new 125.3 cm,right per ct scan recent;seeing gynecology soon;they will review 13vit d deficiency;correct 946894 15per endocrinology monitor 16correction refer GTT; 2 hour glucose 36 17refer GGT 18seeing ortho;pre op 19asma,ama neg/cerulopalsmain wnl,AAT wnl 20Negative hep A antibody positive hep B surface antibody negative antigen negative hep C, normal ferritin 21ukltrasound Social History Social History Type Response Smoking Status Never smoker entered on: 02/20/13 Sex
--- OUTSIDE RECORDS SUMMARY | 2022-08-17 08:31 | XMS_ITS | Continuity of Care Document ---
Author Name Unknown Organization [facility] Address [address] [place] [address]- Care Team Providers Care Government Gauger Name Role Phone Louisa LANDRUM, Taras Fuentes Primary Care Physician Encounter [facility] Date(s): 07/13/20 - 08/12/20 [facility] [address] [place] [address]- Allergies, Adverse Reactions, Alerts Substance Reaction Severity [...] influenza virus vaccine, inactivated 1 12/06/17 Gi vickei influenza virus vaccine, inactivated 2 12/21/16 Gi [...] toxoids (Td) 08/03/05 Given 1Result Comment: [12/07/2017] [address]-99 2Result Comment: [12/21/2016] [facility]: 22125-924-84 3Result Comment: [06/10/2015] #3 4Admin Note: per pt 5Admin Note: given in clinic Medications acarbose 25 mg oral tablet 1 tablet = 25 mg, By Mouth, 3 times a day, Take 1 tablet 3 times daily with meals. Add to 50mg dosefor total of 75mg 3 times daily. E11.65, # 270 tablet, 3 Refills, Maintenance, 07/15/20 12:23:00 EDT, Tablet, [facility], Partial... Start Date: 07/15/20 Status: Ordered acarbose 50 mg oral tablet 1 tablet = 50 mg, By Mouth, 3 times a day, Take 3 times daily with meals. E11.65, # 90 tablet, 5 Refills, Maintenance, 07/13/20 16:29:00 EDT, Tablet, [facility], Partial [...] Maintenance, 07/03/19 13:59:00 EDT, Solution, [facility], 160, cm, 05/29/19 13:36:00 EDT, Height, 56.5, kg, 03... Start Date: 07/03/19 Status: Ordered amitriptyline 25 mg oral tablet 50 mg, 2, tablet, By Mouth, Daily at bedtime, Refills 0, Maintenance, 06/29/20 9:52:00 EDT Start Date: 06/29/20 Status: Ordered amitriptyline 50 mg oral tablet 1 tablet = 50 mg, By Mouth, Daily at bedtime, # 30 tablet, 5 Refills, Maintenance, 07/22/20 8:03:00EDT, [facility], Partial fill upon [...] 5 Refills, Maintenance, 05/07/20 15:54:00EST, [facility], 160.02, cm, 05/01/20 9:18:00 EST, Height, [...] Route to Pharmacy Electronically, [facility], 158, cm, 02/14/19 7:55:00 EST, Height, 61.9, kg, 02/12/19 10:17:00... Start Date: 02/25/19 Status: Ordered montelukast 10 mg oral tablet 10 mg, 1, tablet, By Mouth, Daily in PM, # 90 tablet, Refills 3, Tot. Refills 3, Maintenance, 08/15/19 16:21:00 EDT, Route to Pharmacy Electronically, [facility], 160, cm, 08/15/19 13:45:00 EDT, Height, 56.5, kg, 05/29/19 13:36:00... Start Date: 08/15/19 Status: Ordered ProAir HFA 90 mcg/inh inhalation aerosol with adapter 2, puffs, Inhalation, Every 4 hours, PRN, # 8.5 Gm, Refills 2, Tot. Refills 2, Maintenance, 04/29/19 11:32:00 EST, Aerosol, Route to Pharmacy Electronically, NCPDP_[id number], [facility], 160, cm, 04/29/19 10:47:00 EST, Height... Start Date: 04/29/19 Status: Ordered rifAXIMin 550 mg oral tablet 1 tablet = 550 mg, By Mouth, 3 times a day, # 42 tablet, 0 Refills, Maintenance, 07/14/20 13:37:00 EDT, Tablet, [facility], Partial fill upon patient request if the prescription is for a schedule II opioid drug., 158.02, cm, 07/06... Start Date: 07/14/20 Stop Date: 07/28/20 Status: Ordered Topamax 50 mg oral tablet 2 tablet = 100 mg, By Mouth, Daily at bedtime, # 60 tablet, 6 Refills, Maintenance, 08/04/20 11:44:00 EDT, Tablet, [facility], 158.02, cm, 07/06/20 6:49:00 EDT, Height, [...] 6 Refills, Soft Stop, 08/04/20 11:37:00 EDT, [facility], Partial fill [...] 0 Refills, Maintenance, 06/13/20 14:10:00 EDT, Capsule, [facility],... Start Date: 06/13/20 Status: Ordered Problem [...] 1resolved after weight loss 2chronic perst 3gyn 00862 5testing negative insulinoma 6likley dumping sydrome 7abnormal GTT ;sugar 36 two hours into test 8sees gi 9normal CT brain 10new 115.3 cm,right per ct scan recent;seeing gynecology soon;they will review 12vit d deficiency;correct 052042 14per endocrinology monitor 15correction refer GTT; 2 hour glucose 36 16refer GGT 17seeing ortho;pre op 18asma,ama neg/cerulopalsmain wnl,AAT wnl 19Negative hep A antibody positive hep B surface antibody negative antigen negative hep C, normal ferritin 20ukltrasound Social History Social History Type Response Smoking Status Never smoker entered on: 02/20/13 Sex
--- OUTSIDE RECORDS SUMMARY | 2022-08-17 08:31 | XMS_ITS | Continuity of Care Document ---
Author Name Unknown Organization [facility] Address [address] [place] [address]- Care Team Providers Care Ambulance Attendant Name Role Phone Taras Jasso MD Primary Care Physician Encounter [facility] Date(s): 12/11/20 - 12/18/20 [facility] [address] [place] [address]- Encounter Diagnosis Orthostatic hypotension(Discharge Diagnosis) - 12/11/20 Attending Physician: Taras Jasso MD Allergies, Adverse [...] toxoids (Td) 08/03/05 Given 1Result Comment: [12/07/2017] [address]-33 2Result Comment: [12/21/2016] [facility]: [id number] 3Result Comment: [06/10/2015] #3 4Admin Note: per pt 5Admin Note: given in clinic Medications acarbose 50 mg oral tablet 1 tablet = 50 mg, By Mouth, 3 times a day, Take 3 times daily with meals. E11.65, # 90 tablet, 5 Refills, Maintenance, 07/13/20 16:29:00 EDT, Tablet, [facility], Partial fill upon patient request [...] 0 Refills, Maintenance, 07/03/19 13:59:00 EDT, Solution, [facility], 160, cm, 05/29/19 13:36:00 EDT, Height, 56.5, kg, 03... Start Date: 07/03/19 Status: Ordered Baqsimi One Pack 3 mg nasal powder See Instructions, 3 mg Once intrasnasally for severe hypoglycemia, # 2 each, 3 Refills, Soft Stop, 08/28/20 10:36:00 EDT, [facility], Partial fill upon patient request [...] 5 Refills, Maintenance, 11/06/20 10:28:00 EDT, Tablet, [facility], Replaces loratidine, 158.02, cm, 11/06/20 10:04:00 [...] 1 Refills, Soft Stop, 11/20/19 11:59:00 EDT, [facility], 160.02, cm, 11/15/19 10:05:00 EDT, Height, [...] 0 Refills, Maintenance, 11/03/20 7:49:00 EDT, Tablet, [facility], Partial fill upon patient request if the prescription is for... Start Date: 11/03/20 Status: Ordered montelukast 10 mg oral tablet 10 mg, 1, tablet, By Mouth, Daily in PM, # 90 tablet, Refills 3, Tot. Refills 3, Maintenance, 08/15/19 16:21:00 EDT, Route to Pharmacy Electronically, [facility], 160, cm, 08/15/19 13:45:00 EDT, Height, 56.5, kg, 05/29/19 13:36:00... Start Date: 08/15/19 Status: Ordered Nurtec ODT 75 mg oral tablet, disintegrating 1 tablet = 75 mg, By Mouth, Every 24 hours, PRN as needed for migraine headache, not to exceed 75 mg in 24 hours. no refill in nder 30 days, # 8 tablet, 6 Refills, Maintenance, 12/10/20 12:36:00 EDT,DIS Tablet, [facility], has t... Start Date: 12/10/20 Stop Date: 07/08/21 Status: Ordered Forsyth 0.65% nasal spray 2 sprays, Nares, Both, 4 times a day, # 1 each, 0 Refills, Maintenance, 10/30/20 11:34:00 EDT, [facility], Partial fill upon patient request if the prescription is for a scheduleII opioid drug., 2 sprays Nares, Both 4 times a day... Start Date: 10/30/20 Status: Ordered ProAir HFA 90 mcg/inh inhalation aerosol with adapter 2, puffs, Inhalation, Every 4 hours, PRN, # 8.5 Gm, Refills 2, Tot. Refills 2, Maintenance, 04/29/19 11:32:00 EST, Aerosol, Route to Pharmacy Electronically, NCPDP_[id number], [facility], 160, cm, 04/29/19 10:47:00 EST, Height... Start Date: 04/29/19 Status: Ordered Reclast = 5 mg, IV Infusion, Once, 0 Refills, Maintenance, 11/06/20 10:24:00 EDT, administered at [facility] 10/2020 Start Date: 11/06/20 Status: Ordered Symbicort 160mcg/4.5mcg Inhaler 2, puffs, Inhalation, 2 times a day, with spacer., # 10.2 Gm, Refills 11, Route to Pharmacy Electronically, NCPDP_[id number], [facility], 158.02, cm, 11/13/20 8:38:00 EDT, [...] 1resolved after weight loss 2chronic perst 3gyn 59437 5testing negative insulinoma 6likley dumping sydrome 7abnormal GTT ;sugar 36 two hours into test 8sees gi 9normal CT brain 10new 115.3 cm,right per ct scan recent;seeing gynecology soon;they will review 12vit d deficiency;correct 004280 14per endocrinology monitor 15correction refer GTT; 2 hour glucose 36 16refer GGT 17seeing ortho;pre op 18asma,ama neg/cerulopalsmain wnl,AAT wnl 19Negative hep A antibody positive hep B surface antibody negative antigen negative hep C, normal ferritin 20ukltrasound Diagnosis Diagnosis Type Effective Dates Health Status Clinical Service Informant Orthostatic hypotension Discharge Diagnosis 12/11/20 Procedures Procedure Date Related Diagnosis Body Site Status Electrocardiogram sinus low volatage unchnged prior 12/11/20 Completed Vital Signs Most recent to oldest [Reference Range]: 1 2 Height 158.02 cm (12/11/20 1:02 PM) 158.02 cm (12/11/20 12:46 PM) Weight 76.3 kg (12/11/20 12:46 PM) Oxygen Saturation [94-100 %] 98 % (12/11/20 12:46 PM) Pulse Rate [55-90 bpm] 68 bpm (12/11/20 12:46 PM) Body Mass Index [18.5-24.99] 30.56 *>HHI* (12/11/20 12:46 PM) Blood Pressure [90-138/55-84 mm Hg] 122/ 80mm Hg (12/11/20 12:46 PM) Respiratory Rate [16-30 br/min] 14 br/mi n *L* (12/11/20 12:46 PM) Temperature [96.8-100.4 DegF] 98.4 DegF (12/11/20 12:46 PM) Blood pressure sites Arm, left (12/11/20 12:46 PM) Temperature Route Oral (12/11/20 12:46 PM) Social History Social History Type Response Smoking Status Never smoker entered on: 02/20/13 Sex
--- OUTSIDE RECORDS SUMMARY | 2022-08-17 08:31 | XMS_ITS | Continuity of Care Document ---
Author Name Unknown Organization [facility] Address [address] [place] [address]- Care Team Providers Care Automatic Folder Seamer Name Role Phone Eran JOHNSON, Sue Dahl Primary Care Physician [phone] Encounter [facility] Date(s): 04/07/21 - 09/18/21 [facility] Adult [address] [place] [address]- Attending Physician: Sue Barillas NP Referring Physician: Louisa LANDRUM, Taras Fuentes Allergies, Adverse Reactions, Alerts Substance Reaction Severity Status Dust Allergy to pollen Active Pollen seasonal allergies respiratory symptoms Active Incruse Ellipta 1 lightheaded and migraine Active 1dizzy Immunizations Given and Recorded Vaccine Date Status Refusal Reason SARS-CoV-2 mRNA (oeytxgz-[id number]-lhwdm) vax 05/01/21 Recorded influenza virus vaccine, inactivated [...] toxoids (Td) 08/03/05 Given 1Result Comment: [12/07/2017] [address]-27 2Result Comment: [12/21/2016] [facility]: 70228-180-07 3Result Comment: [06/10/2015] #3 4Admin Note: per [...] constipation, 08/23/21 8:22:00 EDT, Route to Pharmacy Electronically,[facility], Partial fill upon patient... Start [...] 06/18/15 Active H/O laparoscopic adjustable gastric banding FEB 2021(Confirmed) 4 Active History of cholecystectomy(Confirmed) [...] 1resolved after weight loss 2chronic perst 3gyn 76110 5testing negative insulinoma 6likley dumping sydrome 7abnormal GTT ;sugar 36 two hours into test 8sees gi 9normal CT brain 10new 115.3 cm,right per ct scan recent;seeing gynecology soon;they will review 12vit d deficiency;correct 238696 14per endocrinology monitor 15correction refer GTT; 2 hour glucose 36 16refer GGT 17seeing ortho;pre op 18asma,ama neg/cerulopalsmain wnl,AAT wnl 19Negative hep A antibody positive hep B surface antibody negative antigen negative hep C, normal ferritin 20ukltrasound Social History Social History Type Response Smoking Status Never smoker entered on: 02/20/13 Sex
--- OUTSIDE RECORDS SUMMARY | 2022-08-17 08:31 | XMS_ITS | Continuity of Care Document ---
Author Name Unknown Organization [facility] Neu[facility] Address [address] [facility], 3r d Floor, [address] [place] [address]- Care Team Providers Care Shuttle Threader Name Role Phone Louisa LANDRUM, Taras Fuentes Primary Care Physician [facility] Date[facility]): 08/28/20 - 09/27/20 [facility] [address], 3[address] Floor, [address] [place] [id number] Allergies, Adverse Reactions, Alerts Substance [...] toxoids (Td) 08/03/05 Given 1Result Comment: [12/07/2017] [address]-42 2Result Comment: [12/21/2016] [facility]: 06190-690-15 3Result Comment: [06/10/2015] #3 4Admin Note: per pt 5Admin Note: given in clinic Medications acarbose 50 mg oral tablet 1 tablet = 50 mg, By Mouth, 3 times a day, Take 3 times daily with meals. E11.65, # 90 tablet, 5 Refills, Maintenance, 07/13/20 16:29:00 EDT, Tablet, [facility], [...] 30 tablet, 5 Refills, Maintenance, 07/22/20 8:03:00EDT, [facility], Partial fill upon patient request if the prescription is for a schedule II opioid drug., 158.02, cm, 07/06/20 6:4... Start Date: 07/22/20 Status: Ordered Baqsimi One Pack 3 mg nasal powder See Instructions, 3 mg Once intrasnasally for severe hypoglycemia, # 2 each, 3 Refills, Soft Stop, 08/28/20 10:36:00 EDT, [facility], Partial [...] 0 Refills, Maintenance, 08/27/20 9:45:00 EDT, Capsule, [facility], Partial [...] 11:32:00 EST, Aerosol, Route to Pharmacy Electronically, [id number]_[id number], [facility] - C, [...] 6 Refills, Maintenance, 08/04/20 11:44:00 EDT, Tablet, [facility], 158.02, cm, 07/06/20 6:49:00 [...] 6 Refills, Soft Stop, 08/04/20 11:37:00 EDT, [facility], Partial [...] 1resolved after weight loss 2chronic perst 3gyn 55906 5testing negative insulinoma 6likley dumping sydrome 7abnormal GTT ;sugar 36 two hours into test 8sees gi 9normal CT brain 10new 115.3 cm,right per ct scan recent;seeing gynecology soon;they will review 12vit d deficiency;correct 155911 14per endocrinology monitor 15correction refer GTT; 2 hour glucose 36 16refer GGT 17seeing ortho;pre op 18asma,ama neg/cerulopalsmain wnl,AAT wnl 19Negative hep A antibody positive hep B surface antibody negative antigen negative hep C, normal ferritin 20ukltrasound Social History Social History Type Response Smoking Status Never smoker entered on: 02/20/13 Sex
--- OUTSIDE RECORDS SUMMARY | 2022-08-17 08:31 | XMS_ITS | Continuity of Care Document ---
Author Name Unknown Organization [facility] Diabetes Address [address] [place] [address]- Care Team Providers Care Compensation Consulting Manager Name Role Phone Eran Sue JOHNSON Primary Care Physician [facility] Date[facility]s): 04/19/21 - 05/19/21 [facility] [address] [place] [id number] Allergies, Adverse Reactions, Alerts Substance Reaction Severity Status Dust Allergy to pollen Active Pollen seasonal allergies respiratory symptoms Active Incruse Ellipta 1 lightheaded and migraine Active 1dizzy Immunizations Given and Recorded Vaccine Date Status Refusal Reason SARS-CoV-2 mRNA (ecwubsw-snkf-vofja) vax 05/01/21 Recorded influenza virus vaccine, inactivated [...] toxoids (Td) 08/03/05 Given 1Result Comment: [12/07/2017] [address]-27 2Result Comment: [12/21/2016] [facility]: 17008-841-62 3Result Comment: [06/10/2015] #3 4Admin Note: per [...] 3 Refills, Maintenance, 02/03/21 8:34:00 EST, Tablet, [facility], Partial fill upon patient request if the prescript... Start Date: 02/03/21 Status: Ordered acarbose 50 mg oral tablet 1 tablet = 50 mg, By Mouth, 3 times a day, Take 1 tab (plus 1 25mg tab), 3 times daily with meals.,# 270 tablet, 3 Refills, Maintenance, 02/03/21 8:34:00 EST, Tablet, [facility], Partial fill upon patient request if the prescript... Start Date: 02/03/21 Status: Ordered Baqsimi One Pack 3 mg nasal powder See Instructions, 3 mg Once intrasnasally for severe hypoglycemia, # 2 each, 3 Refills, Soft Stop, 08/28/20 10:36:00 EDT, [facility], Partial fill [...] 5 Refills, Maintenance, 11/06/20 10:28:00 EDT, Tablet, [facility], Replaces loratidine, 158.02, cm, 11/06/20 10:04:00 EDT, Height,67, kg, 09/11/19 11:20:00 EDT, Dry Weight Start Date: 11/06/20 Status: Ordered cholestyramine 4 gm/5 gm oral powder for reconstitution 1 pack/packet, By Mouth, Daily, # 30 pack/packet, 5 Refills, Maintenance, 03/03/21 16:42:00 EST, REC Powder, [facility], Partial fill [...] per PCP, # 30 mL, 1 Refills, [facility], 158, cm, 04/09/21 8:13:00 EST, Height, 80.6, kg, 03/08/21 12:18:00 EST, Dry Weight Start Date: 04/30/21 Status: Ordered Dexilant 60 mg oral delayed release capsule 1 capsule = 60 mg, By Mouth, 2 times a day, 30 min before meal, # 60 capsule, 5 Refills, Maintenance, 04/16/21 14:29:00 EST, CR Capsule, [facility], Partial fill upon patient request if the prescription is for a schedule II opioi... Start Date: 04/16/21 Status: Ordered Emgality Prefilled Pen 120 mg/mL subcutaneous solution = 240 mg, Subcutaneous Injection, Once, Loading Dose, # 2 kit, 0 Refills, Soft Stop, 03/16/21 16:05:00 EST, [facility], Partial fill upon patient request if the prescription is for a schedule II opioid drug., 158, cm, 03/11/21 9:1... Start Date: 03/16/21 Status: Ordered EPINEPHrine 1 mg/mL injectable solution 0.3 mL = 0.3 mg, Intramuscular, Once, # 1 mL, 1 Refills, Soft Stop, 03/08/21 15:07:00 EST, Solution, [facility], Partial fill [...] 1 Refills, Maintenance, 04/06/21 9:45:00 EST, Solution, [facility], Partial fill upon patient request if the prescription is for a schedule II opioid drug.... Start Date: 04/06/21 Status: Ordered meclizine 25 mg oral tablet See Instructions, PRN for dizziness, Take 1 tablet every 8 hours as needed for dizziness, # 15 tablet, 0 Refills, Maintenance, 11/03/20 7:49:00 EDT, Tablet, [facility], Partial fill upon patient request if the prescription is for... Start Date: 11/03/20 Status: Ordered montelukast 10 mg oral tablet 10 mg, 1, tablet, By Mouth, Daily in PM, # 90 tablet, Refills 1, Tot. Refills 1, Maintenance, 04/23/21 12:32:00 EST, Route to Pharmacy Electronically, [facility], 158, cm, 04/09/21 8:13:00 [...] 6 Refills, Maintenance, 12/10/20 12:36:00 EDT,DIS Tablet, [facility], has t... Start Date: 12/10/20 Stop Date: 07/08/21 Status: Ordered [place] 0.65% nasal spray 2 sprays, Nares, Both, 4 times a day, # 1 each, 3 Refills, Maintenance, 05/14/21 11:40:00 EST, [facility], Partial [...] 19:25:00 EST, Aerosol, Route to Pharmacy Electronically, NCPDP_[id number], [facility], 158, cm, 05/06/21 6:58:00 EST, Height, 80.... Start Date: 05/13/21 Status: Ordered Reclast = 5 mg, IV Infusion, Once, 0 Refills, Maintenance, 11/06/20 10:24:00 EDT, administered at [facility] 10/2020 Start Date: 11/06/20 [...] Gm, Refills 11, Route to Pharmacy Electronically, NCPDP_[id number], [facility], 158.02, cm, 11/13/20 8:38:00 [...] 1resolved after weight loss 2chronic perst 3gyn 62480 5testing negative insulinoma 6likley dumping sydrome 7abnormal GTT ;sugar 36 two hours into test 8sees gi 9normal CT brain 10new 115.3 cm,right per ct scan recent;seeing gynecology soon;they will review 12vit d deficiency;correct 685363 14per endocrinology monitor 15correction refer GTT; 2 hour glucose 36 16refer GGT 17seeing ortho;pre op 18asma,ama neg/cerulopalsmain wnl,AAT wnl 19Negative hep A antibody positive hep B surface antibody negative antigen negative hep C, normal ferritin 20ukltrasound Social History Social History Type Response Smoking Status Never smoker entered on: 02/20/13 Sex
--- OUTSIDE RECORDS SUMMARY | 2022-08-17 08:31 | XMS_ITS | Continuity of Care Document ---
Author Name Unknown Organization [facility] Diabetes Address [address] [place] [address]- Care Team Providers Care Director Of Instrumental Music Name Role Phone Louisa LANDRUM, Taras Fuentes Primary Care Physician [phone] [place] [facility] Date(s): 01/04/21 - 02/03/21 [facility] [address] [place] [id number] Allergies, Adverse Reactions, Alerts Substance Reaction [...] toxoids (Td) 08/03/05 Given 1Result Comment: [12/07/2017] [address]-56 2Result Comment: [12/21/2016] [facility]: 64340-867-18 3Result Comment: [06/10/2015] #3 4Admin Note: per [...] 5 Refills, Maintenance, 11/06/20 10:28:00 EDT, Tablet, [facility], Replaces loratidine, 158.02, cm, [...] Date: 12/10/20 Stop Date: 07/08/21 Status: Ordered [place] 0.65% nasal spray 2 sprays, Nares, Both, 4 times a day, # 1 each, 0 Refills, Maintenance, 10/30/20 11:34:00 EDT, [facility], [...] 8:26:00 EDT, Aerosol, Route to Pharmacy Electronically, NCPDP_[id number], [facility], 158.02, cm, 01/06/21 8:03:00 EDT, Height, 6... Start Date: 01/06/21 Status: Ordered Reclast = 5 mg, IV Infusion, Once, 0 Refills, Maintenance, 11/06/20 10:24:00 EDT, administered at [facility] 10/2020 Start Date: 11/06/20 Status: Ordered [...] Gm, Refills 11, Route to Pharmacy Electronically, NCPDP_[id number], [facility], 158.02, [...] mL, 1 Refills, Maintenance, 01/06/21 13:36:00 EDT, [facility], Partialfill upon patient request if [...] 1resolved after weight loss 2chronic perst 3gyn 17066 5testing negative insulinoma 6likley dumping sydrome 7abnormal GTT ;sugar 36 two hours into test 8sees gi 9normal CT brain 10new 115.3 cm,right per ct scan recent;seeing gynecology soon;they will review 12vit d deficiency;correct 888996 14per endocrinology monitor 15correction refer GTT; 2 hour glucose 36 16refer GGT 17seeing ortho;pre op 18asma,ama neg/cerulopalsmain wnl,AAT wnl 19Negative hep A antibody positive hep B surface antibody negative antigen negative hep C, normal ferritin 20ukltrasound Social History Social History Type Response Smoking Status Never smoker entered on: 02/20/13 Sex
--- OUTSIDE RECORDS SUMMARY | 2022-08-17 08:31 | XMS_ITS | Continuity of Care Document ---
Author Name Unknown Organization [facility]in[facility] and Diabetes Address [address] [place] [id number]- Care Team Providers Care Nutritionist Public Health Name Role Phone Eran Sue JOHNSON Primary Care Physician [phone] Encounter [facility] Date(s): 11/03/21 - 12/03/21 [facility] Diabetes [address] [place] [id number] Attending Physician: Konrad Curtis Admitting Physician: Konrad Curtis Referring Physician: AdmtrKonrad Allergies, Adverse Reactions, Alerts Substance Reaction Severity Status Dust Allergy to pollen Active Pollen seasonal allergies respiratory symptoms Active Incruse Ellipta 1 lightheaded and migraine Active 1dizzy Immunizations Given and Recorded Vaccine Date Status Refusal Reason SARS-CoV-2 mRNA (ciddnnd-uxjd-jmmrg) vax 05/01/21 Recorded influenza virus vaccine, inactivated [...] toxoids (Td) 08/03/05 Given 1Result Comment: [12/07/2017] [address]-84 2Result Comment: [12/21/2016] [facility]: 12798-926-09 3Result Comment: [06/10/2015] #3 4Admin Note: per [...] 11 Refills, Maintenance, 11/03/21 8:23:00 EDT, Tablet, [facility], Partial fill upon patientrequest if [...] 6 Refills, Soft Stop, 06/29/21 10:09:00 EDT, [facility], Partial fill [...] 11/15/21 10:56:00 EDT, Route to Pharmacy Electronically, [facility] EDT,DIS Tablet, [facility], has [place]. Start Date: 12/10/20 Stop Date: 07/08/21 Status: [...] 11/23/21 19:57:00 EDT, Route to Pharmacy Electronically, NCPDP_[id number], [facility], 158, cm, 11/03/21 8:0... Start Date: 11/23/21 Status: Ordered Trintellix 10 mg oral tablet 1 tablet = 10 mg, By Mouth, Daily, # 30 tablet, 0 Refills, Maintenance, 08/13/21 13:07:00 EDT, Tablet Start Date: 08/13/21 Status: Ordered Problem List Condition Confirmation Course Effective Dates Status H ealth Status Informant Allergic rhinitis Confirmed Active Asthma 1, 2 Confirmed Active B12 deficiency Confirmed Active Bipolar disorder NOS Confirmed Active Cervical radiculopathy = MR*I Confirmed Active Chronic diarrhea Confirmed Active Chronic sinusitis sx September 2019 Confirmed Active COVID-19 Feb 06 2021MAB Feb Confirmed Active EKG abnormality qs v1 chronic Confirmed Active Multiple environmental allergies immujnotherapy Confirmed Active Esophageal reflux (GERD) egd 2017 Confirmed Active Anxiety disorder Confirmed Active Genital herpes 3 Confirmed 06/18/15 Active H/O laparoscopic adjustable gastric banding 2007/Feb 2021 4 Confirmed Active History of cholecystectomy Confirmed 04/10/17 Active Hypoglycemia 5, 6, 7 Confirmed Active Irregular menses 8 Confirmed Active Spondylosis of lumbar spine MRI 2017 sx 2018 Confirmed Active Adnexal mass Confirmed Active Headache, classical migraine Confirmed Active Migraines 9, 10 Confirmed Active Orthostatic hypotension Confirmed [...] 10/09/16 Active Vitamin D deficiency Confirmed Active 1resolved after weight loss 2chronic perst 3gyn 08193 5testing negative insulinoma 6likley dumping sydrome 7abnormal GTT ;sugar 36 two hours into test 8sees gi 9normal CT brain 10new 115.3 cm,right per ct scan recent;seeing gynecology soon;they will review 12vit d deficiency;correct [id number] 14per endocrinology monitor 15correction refer GTT; 2 hour glucose 36 16refer GGT 17seeing ortho;pre op 18asma,ama neg/cerulopalsmain wnl,AAT wnl 19Negative hep A antibody positive hep B surface antibody negative antigen negative hep C, normal ferritin 20ukltrasound Social History Social History Type Response Smoking Status Never smoker entered on: 02/20/13 Sex Patient Care team information Personnel Name: Eran JOHNSON, Sue Dahl Address: Address: [address] [place] [id number]
--- OUTSIDE RECORDS SUMMARY | 2022-08-17 08:31 | XMS_ITS | Continuity of Care Document ---
Author Name Unknown Organization [facility] Address [address] [place] [address] [address] [place] [address]- Care Team Providers Care Line Service Attendant Name Role Phone Eran BICYCLE FITTER, Sue Dahl Primary Care Physician [phone] [facility]counter [facility] Date(s): 03/04/22 - 04/03/22 [facility] [address] [place] [address]- Allergies, Adverse Reactions, Alerts Substance Reaction Severity Status Dust Allergy to pollen Active Pollen seasonal allergies respiratory symptoms Active Incruse Ellipta 1 lightheaded and migraine Active 1dizzy Immunizations Given and Recorded Vaccine Date Status Refusal Reason [id number] 12y+ bivalent booster vax 1 12/24/21 Given [...] vaccine, inactivated 02/08/11 Give n SARS-CoV-2 mRNA (bvfrxme-gjhv-tpuyc) vax 05/01/21 Recorded zoster vaccine, inactivated 11/03/20 [...] tetanus-diphtheria toxoids (Td) 08/03/05 Given 1Result Comment: [id number] 2Result Comment: [id number] 3Result Comment: [12/07/2017] [address]-66 4Result Comment: [12/21/2016] [facility]: 46047-226-59 5Result Comment: [06/10/2015] #3 6Admin Note: per pt 7Admin Note: given in clinic Medications acetaminophen 500 mg oral tablet 2 tablet = 1,000 mg, By Mouth, Every 6 hours, PRN as needed for fever, # 200 tablet, 0 Refills, Maintenance, 12/03/21 10:17:00 EDT, Tablet, [facility], Partial fill upon patient request if the prescription is for a schedule II opi... Start Date: 12/03/21 Status: Ordered Albuterol (Eqv-ProAir HFA) 90 mcg/inh inhalation aerosol 2 puffs, Inhalation, Every 4 hours, PRN NEEDED FOR WHEEZING, # 8.5 Gm, 5 Refills, Maintenance, 03/09/22 11:21:00 EST, [facility], 17, INHALE TWO PUFFS BY [...] 6 Refills, Maintenance, 11/03/21 8:23:00 EDT, Tablet, [facility], 2 tablet By Mouth 2 [...] Refills, Maintenance, 11/22/21 9:49:00 EDT, CR Capsule, [facility], Partial fill upon patient request if the prescription is for a schedule II opioid... Start Date: 11/22/21 Status: Ordered Emgality Prefilled Pen 120 mg/mL subcutaneous solution = 120 mg, Subcutaneous Injection, Once, Maintenance Dose, # 3 kit, 2 Refills, Soft Stop, 03/17/22 8:08:00 EST, [facility], requesting 3 month supply for cheaper martinez. with 2 refills, 163, cm, 03/15/22 10:13:00 EST, Height, 68.1,... Start Date: 03/17/22 Status: Ordered EPINEPHrine 1 mg/mL injectable solution 0.3 mL = 0.3 mg, Intramuscular, Once, # 1 mL, 1 Refills, Soft Stop, 03/08/21 15:07:00 EST, Solution, [facility], Partial fill upon patient request if the prescription is for a schedule II opioid drug., 158, cm, 03/08/21 12:18:00 E... Start Date: 03/08/21 Status: Ordered famotidine 40 mg oral tablet 1 tablet = 40 mg, By Mouth, 2 times a day, # 60 tablet, 6 Refills, Maintenance, 01/31/22 14:05:00 EST, Suspension, [facility], Partial fill upon patient request [...] 11/14/21 11:28:00 EDT, Route to Pharmacy Electronically, [facility], 158, cm, 11/03/21 8:01:00 EDT, Height, 71.5, kg, 09/01/21 16:21:00 EDT, Start Date: 11/14/21 Status: Ordered Nurtec ODT 75 mg oral tablet, disintegrating See Instructions, TAKE ONE TABLET DAILY NEEDED FOR migraines, DO NOT EXCEED ONE TABLET IN 24 HOURS, # 8 tablet, 6 Refills, Maintenance, 12/28/21 15:14:00 EDT, [facility], 163,cm, 12/24/21 8:20:00 EDT, Height, 67, kg, 11/26/21... Start Date: 12/28/21 Status: Ordered oxyCODONE 5 mg oral tablet 5 mg, By Mouth, Every 6 hours, PRN, Do not drive on narcotic medications., # 5 tablet, Refills 0, Tot. Refills 0, Soft Stop, Pain , Moderate, 03/24/22 14:12:00 EST, Route to Pharmacy Electronically, [facility], Partial fill upon p... Start Date: 03/24/22 Status: Ordered Reclast = 5 mg, IV Infusion, Once, 0 Refills, Maintenance, 11/06/20 10:24:00 EDT, administered at [facility] 10/2020 Start Date: 11/06/20 Status: Ordered Symbicort 160mcg/4.5mcg Inhaler 2, puffs, Inhalation, 2 times a day, rinse mouth and throat after use, # 10.2 Gm, Refills 3, Tot. Refills 3, Maintenance, 11/23/21 19:57:00 EDT, Route to Pharmacy Electronically, NCPDP_[id number], [facility], 158, cm, 11/03/21 8:0... Start [...] 5 Refills, Maintenance, 12/10/21 9:44:00 EDT, Tablet, [facility], Partial fill upon patient request [...] Active Vitamin D deficiency Confirmed Active 1gyn 3testing negative insulinoma 4likley dumping sydrome 5abnormal GTT ;sugar 36 two hours into test 6normal CT brain 7new 8resolved after weight loss 9chronic perst 105.3 cm,right per ct scan recent;seeing gynecology soon;they will review 11vit d deficiency;correct [id number] 13per endocrinology monitor 14correction refer GTT; 2 [...] RN Member Role: Primary Care Nurse Name: Eran BICYCLE FITTER, Sue Dahl Position: [facility] PCO Associate Professional Member Role: PCP Address: Address: [address] [place] [id number] Name: Andria Guadalupe RN Position: [facility] SN RN Member Role: Primary Care Nurse Name: Liz Martin RN Position: S RN Member Role: Primary Care Nurse Name: Ambreen Mcmahon RN Position: S RN Member Role: Primary Care Nurse Name: Irais Grijalva RN Position: S RN Member Role: Primary Care Nurse Name: Autumn Martinez RN Position: [facility] SN RN Member Role: Primary Care Nurse Name: Concha Mckinley RN Position: S RN Member Role: Primary Care Nurse Name: Liz English RN Position: S RN Member Role: Primary Care Nurse Name: Dora Williamson RN Position: S RN Member Role: Primary Care Nurse Care Team Related Persons Name: KHUSHI CUNNINGHAM Address: home [address] [place] [address] Name: BHUPINDER VENEGAS Address: [address] [place] [address] Name: FELIPE FLORES Address: home [address] [place] [address] Name: ARNAV FLORES Address: home [address] [place], [place] Name: IRINA FLORES Address: home [address] [place] [address] Name: RUSLAN FLORES Address: home [address] [place] [address] Name: KAISER PLUNKETT Address: home [address] [place] [address]
--- OUTSIDE RECORDS SUMMARY | 2022-08-17 08:31 | XMS_ITS | Continuity of Care Document ---
Author Name Unknown Organization [facility] Address [address] [place] [address]- Care Team Providers Care Motor Vehicle Compliance Analyst Name Role Phone Louisa LANDRUM, Taras Fuentes Primary Care Physician [place] [facility] [place] 10/17/[address] [address]- Discharge Disposition: A-D/C Home Attending Physician: Estela Graham Admitting Physician: Estela Graham Referring Physician: Estela Graham Allergies, Adverse Reactions, Alerts Substance Reaction Severity [...] toxoids (Td) 08/03/05 Given 1Result Comment: [12/07/2017] [address]-07 2Result Comment: [12/21/2016] [facility]: 44088-716-72 3Result Comment: [06/10/2015] #3 4Admin Note: per pt 5Admin Note: given in clinic Medications acarbose 50 mg oral tablet 1 tablet = 50 mg, By Mouth, 3 times a day, Take 3 times daily with meals. E11.65, # 90 tablet, 5 Refills, Maintenance, 07/13/20 16:29:00 EDT, Tablet, [facility], Partial fill upon [...] 30 tablet, 5 Refills, Maintenance, 07/22/20 8:03:00EDT, [facility], Partial fill upon patient request if the prescription is for a schedule II opioid drug., 158.02, cm, 07/06/20 6:4... Start Date: 07/22/20 Status: Ordered Baqsimi One Pack 3 mg nasal powder See Instructions, 3 mg Once intrasnasally for severe hypoglycemia, # 2 each, 3 Refills, Soft Stop, 08/28/20 10:36:00 EDT, [facility], Partial fill upon [...] 0 Refills, Maintenance, 08/27/20 9:45:00 EDT, Capsule, [facility], Partial fill upon patient request if the prescription is for a schedule II opioid drug., 158.02, cm, 08/27/20 9:2... Start Date: 08/27/20 Stop Date: 09/26/20 Status: Ordered ProAir HFA 90 mcg/inh inhalation aerosol with adapter 2, puffs, Inhalation, Every 4 hours, PRN, # 8.5 Gm, Refills 2, Tot. Refills 2, Maintenance, 04/29/19 11:32:00 EST, Aerosol, Route to Pharmacy Electronically, NCPDP_[id number], [facility] - C, 160, [...] 6 Refills, Maintenance, 08/04/20 11:44:00 EDT, Tablet, [facility], 158.02, cm, 07/06/20 6:49:00 EDT, [...] 6 Refills, Soft Stop, 08/04/20 11:37:00 EDT, [facility], Partial fill upon [...] 1resolved after weight loss 2chronic perst 3gyn 83146 5testing negative insulinoma 6likley dumping sydrome 7abnormal GTT ;sugar 36 two hours into test 8sees gi 9normal CT brain 10new 115.3 cm,right per ct scan recent;seeing gynecology soon;they will review 12vit d deficiency;correct [id number] 14per endocrinology monitor 15correction refer GTT; 2 hour glucose 36 16refer GGT 17seeing ortho;pre op 18asma,ama neg/cerulopalsmain wnl,AAT wnl 19Negative hep A antibody positive hep B surface antibody negative antigen negative hep C, normal ferritin 20ukltrasound Social History Social History Type Response Smoking Status Never smoker entered on: 02/20/13 Sex
--- OUTSIDE RECORDS SUMMARY | 2022-08-17 08:31 | XMS_ITS | Continuity of Care Document ---
Author Name Unknown Organization [facility] Address [address] [place] [address]- Care Team Providers Care Disintegrator Name Role Phone Eran Sue JOHNSON Primary Care Physician [phone] [place] [facility] [place]21 [facility] [address] [place] [address]- [place] Allergies, Adverse Reactions, Alerts Substance Reaction Severity Status Dust Allergy to pollen Active Pollen seasonal allergies respiratory symptoms Active Incruse Ellipta 1 lightheaded and migraine Active 1dizzy Immunizations Given and Recorded Vaccine Date Status Refusal Reason SARS-CoV-2 mRNA (vwejttx-kwkg-ikrqy) vax 05/01/21 Recorded influenza virus vaccine, inactivated [...] toxoids (Td) 08/03/05 Given 1Result Comment: [12/07/2017] [address]-78 2Result Comment: [12/21/2016] [facility]: 84105-554-70 3Result Comment: [06/10/2015] #3 4Admin Note: per [...] 3 Refills, Maintenance, 02/03/21 8:34:00 EST, Tablet, [facility], Partial fill upon patient request if the prescript... Start Date: 02/03/21 Status: Ordered acarbose 50 mg oral tablet 1 tablet = 50 mg, By Mouth, 3 times a day, Take 1 tab (plus 1 25mg tab), 3 times daily with meals.,# 270 tablet, 3 Refills, Maintenance, 02/03/21 8:34:00 EST, Tablet, [facility], Partial [...] Refills, Maintenance, 03/03/21 16:42:00 EST, REC Powder, [facility], Partial fill [...] per PCP, # 30 mL, 1 Refills, [facility], 158, cm, 04/09/21 8:13:00 EST, Height, 80.6, kg, 03/08/21 12:18:00 EST, Dry Weight Start Date: 04/30/21 Status: Ordered Dexilant 60 mg oral delayed release capsule 1 capsule = 60 mg, By Mouth, 2 times a day, 30 min before meal, # 60 capsule, 5 Refills, Maintenance, 04/16/21 14:29:00 EST, CR Capsule, [facility], Partial fill upon patient request if the prescription is for a schedule II opioi... Start Date: 04/16/21 Status: Ordered Emgality Prefilled Pen 120 mg/mL subcutaneous solution = 240 mg, Subcutaneous Injection, Once, Loading Dose, # 2 kit, 0 Refills, Soft Stop, 03/16/21 16:05:00 EST, [facility], Partial fill upon patient request if the prescription is for a schedule II opioid drug., 158, cm, 03/11/21 9:1... Start Date: 03/16/21 Status: Ordered EPINEPHrine 1 mg/mL injectable solution 0.3 mL = 0.3 mg, Intramuscular, Once, # 1 mL, 1 Refills, Soft Stop, 03/08/21 15:07:00 EST, Solution, [facility], Partial fill [...] 1 Refills, Maintenance, 04/06/21 9:45:00 EST, Solution, [facility], Partial fill upon patient request if the prescription is for a schedule II opioid drug.... Start Date: 04/06/21 Status: Ordered loratadine 10 mg oral tablet 10 mg, 1, tablet, By Mouth, Daily, # 90 tablet, Refills 0, Tot. Refills 0, Maintenance, 05/24/21 11:12:00 EDT, Route to Pharmacy Electronically, [facility], 158, cm, 05/14/21 7:52:00 EST, Height, 80.6, kg, 03/08/21 12:18:00 EST, D... Start Date: 05/24/21 Status: Ordered meclizine 25 mg oral tablet See Instructions, PRN for dizziness, Take 1 tablet every 8 hours as needed for dizziness, # 15 tablet, 0 Refills, Maintenance, 11/03/20 7:49:00 EDT, Tablet, [facility], Partial fill upon patient request if the prescription is for... Start Date: 11/03/20 Status: Ordered montelukast 10 mg oral tablet 10 mg, 1, tablet, By Mouth, Daily in PM, # 90 tablet, Refills 1, Tot. Refills 1, Maintenance, 04/23/21 12:32:00 EST, Route to Pharmacy Electronically, [facility], 158, cm, 04/09/21 8:13:00 EST, [...] 6 Refills, Maintenance, 12/10/20 12:36:00 EDT,DIS Tablet, [facility], has t... Start Date: 12/10/20 Stop Date: 07/08/21 Status: Ordered Mcdowell 0.65% nasal spray 2 sprays, Nares, Both, 4 times a day, # 1 each, 3 Refills, Maintenance, 05/14/21 11:40:00 EST, [facility], Partial fill [...] 19:25:00 EST, Aerosol, Route to Pharmacy Electronically, NCPDP_[id number], [facility], 158, cm, 05/06/21 6:58:00 EST, [...] Gm, Refills 11, Route to Pharmacy Electronically, NCPDP_[id number], [facility], 158.02, cm, 11/13/20 8:38:00 EDT, [...] 1resolved after weight loss 2chronic perst 3gyn [address] 5testing negative insulinoma 6likley dumping sydrome 7abnormal GTT ;sugar 36 two hours into test 8sees gi 9normal CT brain 10new 115.3 cm,right per ct scan recent;seeing gynecology soon;they will review 12vit d deficiency;correct 703617 14per endocrinology monitor 15correction refer GTT; 2 hour glucose 36 16refer GGT 17seeing ortho;pre op 18asma,ama neg/cerulopalsmain wnl,AAT wnl 19Negative hep A antibody positive hep B surface antibody negative antigen negative hep C, normal ferritin 20ukltrasound Social History Social History Type Response Smoking Status Never smoker entered on: 02/20/13 Sex
--- OUTSIDE RECORDS SUMMARY | 2022-08-17 08:31 | XMS_ITS | Continuity of Care Document ---
Author Name Unknown Organization [facility] Address [address] [place] [address] sandi, [address] [place] [address]- Care Team Providers Care Able Bodied Seaman Name Role Phone Eran MARRIAGE PERFORMER, Sue Dahl Primary Care Physician Encounter [facility] Date(s): 01/13/22 - 02/12/22 [facility] [address] [place] [address] Drive, [address] [place] [address]- Allergies, Adverse Reactions, Alerts Substance Reaction Severity Status Dust Allergy to pollen Active Pollen seasonal allergies respiratory symptoms Active Incruse Ellipta 1 lightheaded and migraine Active 1dizzy Immunizations Given and Recorded Vaccine Date Status Refusal Reason [id number] 12y+ bivalent booster vax 1 12/24/21 Given [...] vaccine, inactivated 02/08/11 Give n SARS-CoV-2 mRNA (drsxqeb-chal-fwddj) vax 05/01/21 Recorded zoster vaccine, inactivated 11/03/20 [...] tetanus-diphtheria toxoids (Td) 08/03/05 Given 1Result Comment: [address]-1 2Result Comment: 11682-524-95 3Result Comment: [12/07/2017] [address]-83 4Result Comment: [12/21/2016] [facility]: 18140-477-17 5Result Comment: [06/10/2015] #3 6Admin Note: per pt 7Admin Note: given in clinic Medications acarbose 25 mg oral tablet See Instructions, 1 tablet with 50 mg (total 75 mg) By Mouth before lunch, # 30 each, 11 Refills, Maintenance, 11/03/21 8:24:00 EDT, Tablet, [facility], 158, cm, 11/03/21 8:01:00EDT, Height, 71.5, kg, 09/01/21 16:21:00 EDT, Dry W... Start Date: 11/03/21 Status: Ordered acarbose 50 mg oral tablet See Instructions, 1 tablet with 25 mg (total 75 mg) By Mouth before lunch, # 30 each, 11 Refills, Maintenance, 11/03/21 8:23:00 EDT, Tablet, [facility], Partial fill upon patientrequest [...] Gm, 1 Refills, Maintenance, 12/03/21 14:16:00 EDT, [facility], 18, INHALE TWO PUFFS [...] Refills, Maintenance, 11/22/21 9:49:00 EDT, CR Capsule, [facility], Partial fill upon patient request if the prescription is for a schedule II opioid... Start Date: 11/22/21 Status: Ordered Emgality Prefilled Pen 120 mg/mL subcutaneous solution = 120 mg, Subcutaneous Injection, Once, Maintenance Dose, # 1 kit, 6 Refills, Soft Stop, 02/08/22 9:15:00 EST, [facility], Partial [...] 11/15/21 10:56:00 EDT, Route to Pharmacy Electronically, [facility], 158, cm, 11/03/21 8:01:00 EDT, Height, 71.5, kg, 09/01/21 16:21:00 EDTMark Start Date: 11/15/21 Status: Ordered Medrol 4 mg oral tablet 1 pack/packet, By Mouth, Daily, for 6 days, as directed on package labeling, # 21 tablet, 0 Refills, Acute 02/14/22 9:14:00 EST, 02/08/22 9:14:00 EST, Tablet, [facility], Partialfill upon patient request if the prescription is fo... Start Date: 02/08/22 Stop Date: 02/14/22 Status: Ordered montelukast 10 mg oral tablet 1, tablet, By Mouth, Daily in PM, # 90 tablet, Refills 1, Tot. Refills 1, Maintenance, 11/14/21 11:28:00 EDT, Route to Pharmacy Electronically, [facility], 158, cm, 11/03/21 8:01:00 EDT, Height, 71.5, kg, 09/01/21 16:21:00 EDTDr... Start Date: 11/14/21 Status: Ordered Nurtec ODT [...] tablet, 0 Refills, Maintenance, 01/18/22 8:00:00 EST, [facility], Partial [...] 11/23/21 19:57:00 EDT, Route to Pharmacy Electronically, NCPDP_[id number], [facility], 158, cm, 11/03/21 8:0... [...] 5 Refills, Maintenance, 12/10/21 9:44:00 EDT, Tablet, [facility], [...] Active Vitamin D deficiency Confirmed Active 1gyn 37703 3testing negative insulinoma 4likley dumping sydrome 5abnormal GTT ;sugar 36 two hours into test 6sees gi 7normal CT brain 8new 9resolved after weight loss 10chronic perst 115.3 cm,right per ct scan recent;seeing gynecology soon;they will review 12vit d deficiency;correct 531180 14per endocrinology monitor 15correction refer GTT; 2 [...] Associate Professional Member Role: PCP Address: Address: [address] [place] [id number] Name: Andria Guadalupe RN Position: [facility] [...] Persons Name: KHUSHI CUNNINGHAM Address: home [address] [place] [address] Name: BHUPINDER VENEGAS Address: [address] [place] [address] Name: FELIPE FLORES Address: home [address] [place] [address] Name: ARNAV FLORES Address: home [address] [place] [address] Name: IRINA FLORES Address: home [address] [place] [address] Name: RUSLAN FLORES Address: home [address] [place] [address] Name: KAISER PLUNKETT Address: home [address] [place] [address]
--- OUTSIDE RECORDS SUMMARY | 2022-08-17 08:32 | XMS_ITS | Continuity of Care Document ---
Author Name Unknown Organization [facility] Address [address], [address] Floor, [address] [place] [address]- Care Team Providers Care Offset Duplicating Machine Operator Name Role Phone Eran FUEL CELL ENGINEER, Sue Dahl Primary Care Physician Encounter [facility] [place] Date(s[place] 02/08/22 - 02/15/22 [facility] [address], [address], [address] [place] [address]- Attending Physician: Javier JOHNSON, Bradley Ann Allergies, Adverse Reactions, Alerts Substance Reaction Severity Status Dust Allergy to pollen Active Pollen seasonal allergies respiratory symptoms Active Incruse Ellipta 1 lightheaded and migraine Active 1dizzy Immunizations Given and Recorded Vaccine Date Status Refusal Reason [id number] 12y+ bivalent booster vax 1 12/24/21 Given [...] vaccine, inactivated 02/08/11 Give n SARS-CoV-2 mRNA (zxqhucv-zafp-zrple) vax 05/01/21 Recorded zoster vaccine, inactivated 11/03/20 [...] tetanus-diphtheria toxoids (Td) 08/03/05 Given 1Result Comment: [address]-9 2Result Comment: 78504-720-62 3Result Comment: [12/07/2017] [id number] 4Result Comment: [12/21/2016] [facility]: 11886-811-90 5Result Comment: [06/10/2015] #3 6Admin Note: per [...] 6 Refills, Soft Stop, 02/08/22 9:15:00 EST, [facility], Partial fill upon [...] 6 Refills, Maintenance, 01/31/22 14:05:00 EST, Suspension, [facility], Partial fill upon [...] tablet, 0 Refills, Maintenance, 01/18/22 8:00:00 EST, [facility], Partial fill upon [...] 11/23/21 19:57:00 EDT, Route to Pharmacy Electronically, NCPDP_[id number], [facility], 158, cm, 11/03/21 [...] Active Vitamin D deficiency Confirmed Active 1gyn 14519 3testing negative insulinoma 4likley dumping sydrome 5abnormal GTT ;sugar 36 two hours into test 6sees gi 7normal CT brain 8new 9resolved after weight loss 10chronic perst 115.3 cm,right per ct scan recent;seeing gynecology soon;they will review 12vit d deficiency;correct 967636 14per endocrinology monitor 15correction refer GTT; 2 hour glucose 36 16refer GGT 17seeing ortho;pre op 18asma,ama neg/cerulopalsmain wnl,AAT wnl 19Negative hep A antibody positive hep B surface antibody negative antigen negative hep C, normal ferritin 20ukltrasound Vital Signs Most recent to oldest [Reference Range]: 1 Height 163 cm (02/08/22 8:53 AM) Weight 68.3 kg (02/08/22 8:53 AM) Oxygen Saturation [94-100 %] 97 % (02/08/22 8:53 AM) Pulse Rate [55-90 bpm] 88 bpm (02/08/22 8:53 AM) Body Mass Index [18.5-24.99 kg/m2] 25.71 kg/m2 *H* (02/08/22 8:53 AM) Blood Pressure [90-138/55-84 mm Hg] 117/ 86mm Hg (02/08/22 8:53 AM) Mode of Delivery (Oxygen) Room air (02/08/22 8:53 AM) Blood pressure sites Arm, right (02/08/22 8:53 AM) Social History Social History Type Response Smoking Status Never smoker entered on: 02/20/13 Sex Patient Care team information Care Team Personnel Name: Caitlyn Mcgee RN Position: S RN Member Role: Primary Care Nurse Name: Sue Barillas NP Position: [facility] Associate Professional Member Role: PCP Address: Address: [address] [place] [address] Name: Andria Guadalupe RN Position: [facility] SN RN Member Role: Primary Care Nurse Name: Liz Martin RN Position: S RN Member Role: Primary Care Nurse Name: Ambreen Mcmahon RN Position: S RN Member Role: Primary Care Nurse Name: Irais Grijalva RN Position: [facility] RN Member Role: Primary Care Nurse Name: Autumn Martinez RN Position: [facility] SN RN Member Role: Primary Care Nurse Name: Concha Mckinley RN Position: S RN Member Role: Primary Care Nurse Name: Liz English RN Position: S RN Member Role: Primary Care Nurse Name: Dora Williamson RN Position: S RN Member Role: Primary Care Nurse Care Team Related Persons Name: KHUSHI CUNNINGHAM Address: home [address] [place] [address] Name: BHUPINDER VENEGAS Address: [address] [place] [address] Name: FELIPE FLORES Address: home [address] [place] [address] Name: ARNAV FLORES Address: home [address] [place] [address] Name: IRINA FLORES Address: home [address] [place] [address] Name: RUSLAN FLORES Address: home [address] [address] Name: KAISER PLUNKETT Address: home [address] [place] [address]
--- OUTSIDE RECORDS SUMMARY | 2022-08-17 08:32 | XMS_ITS | Continuity of Care Document ---
Author Name Unknown Organization [facility] Address Unknown Care Team Providers Care Director Medical Science Name Role Phone Eran Sue JOHNSON Primary Care Physician Encounter [facility] [place] Date(s): 09/13/21 - 10/13/21 [facility] Allergies, Adverse Reactions, Alerts Substance Reaction Severity Status Dust Allergy to pollen Active Pollen seasonal allergies respiratory symptoms Active Incruse Ellipta 1 lightheaded and migraine Active 1dizzy Immunizations Given and Recorded Vaccine Date Status Refusal Reason SARS-CoV-2 mRNA (kfmojqa-kfwx-gwjkp) vax 05/01/21 Recorded influenza virus vaccine, inactivated [...] toxoids (Td) 08/03/05 Given 1Result Comment: [12/07/2017] [id number] 2Result Comment: [12/21/2016] [facility]: 24176-496-27 3Result Comment: [06/10/2015] #3 4Admin Note: per pt 5Admin Note: given in clinic Medications acarbose 25 mg oral tablet 1 tablet = 25 mg, By Mouth, 3 times a day, Take 1 tab (plus 1 50mg tab), 3 times daily with meals.,# 270 tablet, 3 Refills, Maintenance, 02/03/21 8:34:00 EST, Tablet, [facility], Partial fill upon patient request if the prescript... Start Date: 02/03/21 Status: Ordered acarbose 50 mg oral tablet 1 tablet = 50 mg, By Mouth, 3 times a day, Take 1 tab (plus 1 25mg tab), 3 times daily with meals.,# 270 tablet, 3 Refills, Maintenance, 02/03/21 8:34:00 EST, Tablet, [facility], Partial fill upon [...] constipation, 08/23/21 8:22:00 EDT, Route to Pharmacy Electronically,[facility], Partial fill upon patient... Start Date: 08/23/21 Status: Ordered Dexilant 60 mg oral delayed release capsule 1 capsule = 60 mg, By Mouth, 2 times a day, 30 min before meal, # 60 capsule, 5 Refills, Maintenance, 04/16/21 14:29:00 EST, CR Capsule, [facility], Partial fill upon patient request if the prescription is for a schedule II opioi... Start Date: 04/16/21 Status: Ordered Emgality Prefilled Pen 120 mg/mL subcutaneous solution = 120 mg, Subcutaneous Injection, Once, Maintenance Dose, # 1 kit, 6 Refills, Soft Stop, 06/29/21 10:09:00 EDT, [facility], Partial fill upon patient request if the prescription is for a schedule II opioid drug., 158, cm, 06/29/21... Start Date: 06/29/21 Status: Ordered EPINEPHrine 1 mg/mL injectable solution 0.3 mL = 0.3 mg, Intramuscular, Once, # 1 mL, 1 Refills, Soft Stop, 03/08/21 15:07:00 EST, Solution, [facility], Partial fill upon [...] 09/17/21 14:13:00 EDT, Route to Pharmacy Electronically, [facility], 158, cm, 09/16/21 9:43:00 EDT, Height, 71.5, kg, 09/01/21 16:21:00 EDT, D... Start Date: 09/17/21 Status: Ordered meclizine 25 mg oral tablet See Instructions, PRN for dizziness, Take 1 tablet every 8 hours as needed for dizziness, # 15 tablet, 0 Refills, Maintenance, 11/03/20 7:49:00 EDT, Tablet, [facility], Partial fill upon patient request if the prescription is for... Start Date: 11/03/20 Status: Ordered montelukast 10 mg oral tablet 10 mg, 1, tablet, By Mouth, Daily in PM, # 90 tablet, Refills 1, Tot. Refills 1, Maintenance, 04/23/21 12:32:00 EST, Route to Pharmacy Electronically, [facility], 158, cm, 04/09/21 [...] Maintenance, 12/10/20 12:36:00 EDT,DIS Tablet, [facility], has t... Start [...] 1resolved after weight loss 2chronic perst 3gyn 82609 5testing negative insulinoma 6likley dumping sydrome 7abnormal GTT ;sugar 36 two hours into test 8sees gi 9normal CT brain 10new 115.3 cm,right per ct scan recent;seeing gynecology soon;they will review 12vit d deficiency;correct 112797 14per endocrinology monitor 15correction refer GTT; 2 hour glucose 36 16refer GGT 17seeing ortho;pre op 18asma,ama neg/cerulopalsmain wnl,AAT wnl 19Negative hep A antibody positive hep B surface antibody negative antigen negative hep C, normal ferritin 20ukltrasound Social History Social History Type Response Smoking Status Never smoker entered on: 02/20/13 Sex
--- OUTSIDE RECORDS SUMMARY | 2022-08-17 08:32 | XMS_ITS | Continuity of Care Document ---
Author Name Unknown Organization [facility] Nikita Oswaldo Address [address] [place] [address]- Care Team Providers Care Horse Doctor Name Role Phone Sue Barillas NP Primary Care Physician Encounter [facility] Date(s): 03/31/20 - 04/07/20 [facility] [address] [place] [address]- Encounter Diagnosis Dysuria(Discharge Diagnosis) - 03/31/20 Vaginitis(Discharge Diagnosis) - 03/31/20 Attending Physician: Sue Barillas NP Allergies, Adverse Reactions, [...] toxoids (Td) 08/03/05 Given 1Result Comment: [12/07/2017] [id number] 2Result Comment: [12/21/2016] [facility]: 62573-438-04 3Result Comment: [06/10/2015] #3 4Admin Note: per [...] 03/18/20 10:49:00 EST, Route to Pharmacy Electronically, [facility], 160.02, cm, 03/18/20 7:48:00 EST, [...] 60 capsule, 5 Refills, Maintenance, 12/26/19 12:06:00EDT, [facility], 160.02, cm, 12/02/19 6:45:00 [...] 0 Refills,Maintenance, 10/06/19 21:07:00 EDT, DIS Tablet, [facility] Start Date: 10/06/19 Stop Date: 10/09/19 Status: Ordered ProAir HFA 90 mcg/inh inhalation aerosol with adapter 2, puffs, Inhalation, Every 4 hours, PRN, # 8.5 Gm, Refills 2, Tot. Refills 2, Maintenance, 04/29/19 11:32:00 EST, Aerosol, Route to Pharmacy Electronically, NCPDP_[id number], [facility], 160, cm, 04/29/19 10:47:00 EST, Height... Start Date: 04/29/19 Status: Ordered Symbicort 160mcg/4.5mcg Inhaler 2, puffs, Inhalation, 2 times a day, use with spacer chamber, # 1 each, Refills 11, Tot. Refills 11, Maintenance, 07/08/19 13:36:00 EDT, Route to Pharmacy Electronically, NCPDP_[id number], [facility], 160, cm, 07/08/19 13:03:00 [...] tablet, 0 Refills, Maintenance, 09/30/19 11:23:00 EDT, [facility], 160.02, cm, 09/24/19 15:31:00 [...] syndrome of shoulder(Confirmed) 18 Active Fatty liver(Confirmed) , , 21 10/09/16 Active Vitamin D deficiency(Confirmed) Active 1resolved after weight loss 2chronic perst 3folowed by mental health;recent hospitalization 4gyn 54807 6testing negative insulinoma 7likley dumping sydrome 8abnormal GTT ;sugar 36 two hours into test 9sees gi 10normal CT brain 11new 125.3 cm,right per ct scan recent;seeing gynecology soon;they will review 13vit d deficiency;correct 115745 15per endocrinology monitor 16correction refer GTT; 2 hour glucose 36 17refer GGT 18seeing ortho;pre op 19asma,ama neg/cerulopalsmain wnl,AAT wnl 20Negative hep A antibody positive hep B surface antibody negative antigen negative hep C, normal ferritin 21ukltrasound Diagnosis Diagnosis Type Effective Dates Health Status Clini asha Service Informant Dysuria Discharge Diagnosis 03/31/20 Vaginitis Discharge Diagnosis 03/31/20 Vital Signs Most recent to oldest [Reference Range]: 1 Height 160.02 cm (03/31/20 11:39 AM) Weight 77.7 kg (03/31/20 11:39 AM) Oxygen Saturation [94-100 %] 98 % (03/31/20 11:39 AM) Pulse Rate [55-90 bpm] 80 bpm (03/31/20 11:39 AM) Body Mass Index [18.5-24.99] 30.34 *>HHI* (03/31/20 11:39 AM) Blood Pressure [90-138/55-84 mm Hg] 94/6 0mm Hg (03/31/20 11:39 AM) Respiratory Rate [16-30 br/min] 16 br/mi n (03/31/20 11:39 AM) Temperature [96.8-100.4 DegF] 97.9 DegF (03/31/20 11:39 AM) Blood pressure sites Arm, left (03/31/20 11:39 AM) Temperature Route Oral (03/31/20 11:39 AM) Social History Social History Type Response Smoking Status Never smoker entered on: 02/20/13 Sex
--- OUTSIDE RECORDS SUMMARY | 2022-08-17 08:32 | XMS_ITS | Continuity of Care Document ---
Author Name Unknown Organization [facility] Address Unknown Care Team Providers Care Volleyball Commentator Name Role Phone Louisa LANDRUM, Taras Fuentes Primary Care Physician [place] [facility] [place] 03/06/21 [facility] Attending Physician: Konrad Curtis Admitting Physician: [...] toxoids (Td) 08/03/05 Given 1Result Comment: [12/07/2017] [id number] 2Result Comment: [12/21/2016] [facility]: 92924-701-45 3Result Comment: [06/10/2015] #3 4Admin Note: per [...] Date: 12/10/20 Stop Date: 07/08/21 Status: Ordered [place] 0.65% nasal spray 2 sprays, Nares, Both, [...] 8:26:00 EDT, Aerosol, Route to Pharmacy Electronically, NCPDP_[id number], [facility], 158.02, cm, 01/06/21 8:03:00 EDT, Height, 6... Start Date: 01/06/21 Status: Ordered Reclast = 5 mg, IV Infusion, Once, 0 Refills, Maintenance, 11/06/20 10:24:00 EDT, administered at [facility] 10/2020 Start Date: 11/06/20 Status: Ordered [...] Gm, Refills 11, Route to Pharmacy Electronically, NCPDP_[id number], [facility], 158.02, cm, 11/13/20 [...] mL, 1 Refills, Maintenance, 01/06/21 13:36:00 EDT, [facility], Partialfill upon patient request [...] 1resolved after weight loss 2chronic perst 3gyn 11147 5testing negative insulinoma 6likley dumping sydrome 7abnormal GTT ;sugar 36 two hours into test 8sees gi 9normal CT brain 10new 115.3 cm,right per ct scan recent;seeing gynecology soon;they will review 12vit d deficiency;correct [id number] 14per endocrinology monitor 15correction refer GTT; 2 hour glucose 36 16refer GGT 17seeing ortho;pre op 18asma,ama neg/cerulopalsmain wnl,AAT wnl 19Negative hep A antibody positive hep B surface antibody negative antigen negative hep C, normal ferritin 20ukltrasound Social History Social History Type Response Smoking Status Never smoker entered on: 02/20/13 Sex
--- OUTSIDE RECORDS SUMMARY | 2022-08-17 08:32 | XMS_ITS | Continuity of Care Document ---
Author Name Unknown Organization [facility] Larry Shelton Oswaldo Address [address] [place] [address]- Care Team Providers Care Acid Leveler Name Role Phone Eran SPRAY DYER, Sue Dahl Primary Care Physician Encounter [facility] Date(s): 07/14/21 - 08/13/21 [facility] Larry Proley Adult [address] [place] [address]- Allergies, Adverse Reactions, Alerts Substance Reaction Severity Status Dust Allergy to pollen Active Pollen seasonal allergies respiratory symptoms Active Incruse Ellipta 1 lightheaded and migraine Active 1dizzy Immunizations Given and Recorded Vaccine Date Status Refusal Reason SARS-CoV-2 mRNA (gzlxcph-wyag-avjye) vax 05/01/21 Recorded influenza virus vaccine, inactivated [...] toxoids (Td) 08/03/05 Given 1Result Comment: [12/07/2017] [id number] 2Result Comment: [12/21/2016] [facility]: [id number] 3Result Comment: [06/10/2015] #3 4Admin Note: per [...] 30 mL, 1 Refills, 06/28/21 13:52:00 EDT, [facility], 158, cm, 05/24/21 16:05:00 EDT, Height, 80.6, kg, 03/08/21 12:18... Start Date: 06/28/21 Status: Ordered Dexilant 60 mg oral delayed release capsule 1 capsule = 60 mg, By Mouth, 2 times a day, 30 min before meal, # 60 capsule, 5 Refills, Maintenance, 04/16/21 14:29:00 EST, CR Capsule, [facility], Partial fill upon patient request if the prescription is for a schedule II opioi... Start Date: 04/16/21 Status: Ordered Emgality Prefilled Pen 120 mg/mL subcutaneous solution = 120 mg, Subcutaneous Injection, Once, Maintenance Dose, # 1 kit, 6 Refills, Soft Stop, 06/29/21 10:09:00 EDT, [facility], Partial [...] 05/24/21 11:12:00 EDT, Route to Pharmacy Electronically, [facility], 158, cm, 05/14/21 7:52:00 EST, [...] 04/23/21 12:32:00 EST, Route to Pharmacy Electronically, [facility], 158, cm, 04/09/21 8:13:00 EST, [...] Date: 12/10/20 Stop Date: 07/08/21 Status: Ordered [place] 0.65% nasal spray 2 sprays, Nares, Both, 4 times a day, # 1 each, 3 Refills, Maintenance, 05/14/21 11:40:00 EST, [facility], Partial [...] 19:25:00 EST, Aerosol, Route to Pharmacy Electronically, NCPDP_[id number], [facility], 158, cm, 05/06/21 6:58:00 EST, [...] Gm, Refills 11, Route to Pharmacy Electronically, NCPDP_[id number], [facility], 158.02, cm, [...] 1resolved after weight loss 2chronic perst 3gyn 01072 5testing negative insulinoma 6likley dumping sydrome 7abnormal GTT ;sugar 36 two hours into test 8sees gi 9normal CT brain 10new 115.3 cm,right per ct scan recent;seeing gynecology soon;they will review 12vit d deficiency;correct 907000 14per endocrinology monitor 15correction refer GTT; 2 hour glucose 36 16refer GGT 17seeing ortho;pre op 18asma,ama neg/cerulopalsmain wnl,AAT wnl 19Negative hep A antibody positive hep B surface antibody negative antigen negative hep C, normal ferritin 20ukltrasound Social History Social History Type Response Smoking Status Never smoker entered on: 02/20/13 Sex
--- OUTSIDE RECORDS SUMMARY | 2022-08-17 08:32 | XMS_ITS | Continuity of Care Document ---
Author Name Unknown Organization [facility] Address [address] [place] [address]- Care Team Providers Care Union Representative Name Role Phone Louisa LANDRUM, Taras Fuentes Primary Care Physician [phone] Encounter [facility] Date(s): 04/24/20 - 05/24/20 [facility] [address] [place] [address] Allergies, Adverse Reactions, Alerts Substance Reaction [...] toxoids (Td) 08/03/05 Given 1Result Comment: [12/07/2017] [id number] 2Result Comment: [12/21/2016] [facility]: 61457-578-18 3Result Comment: [06/10/2015] #3 4Admin Note: per [...] 60 capsule, 5 Refills, Maintenance, 05/07/20 15:54:00EST, [facility], 160.02, cm, 05/01/20 [...] 11:32:00 EST, Aerosol, Route to Pharmacy Electronically, NCPDP_[id number], [facility], 160, cm, 04/29/19 10:47:00 EST, Height... Start Date: 04/29/19 Status: Ordered Topamax 50 mg oral tablet See Instructions, take 1 tab in am and 2 tab at bedtime. If AM dose causes bad sedation, add to HS dose., # 90 tablet, 6 Refills, Maintenance, 03/12/20 11:09:00 EST, Tablet, [facility], weaning zonegran off by 25mg every 2 days t... Start Date: 03/12/20 Status: Ordered ubrogepant 100 mg oral tablet 1 tablet = 100 mg, By Mouth, Daily, # 10 tablet, 6 Refills, Soft Stop, 03/12/20 11:04:00 EST, [facility], [...] perst 3folowed by mental health;recent hospitalization 4gyn 62877 6testing negative insulinoma 7likley dumping sydrome 8abnormal GTT ;sugar 36 two hours into test 9sees gi 10normal CT brain 11new 125.3 cm,right per ct scan recent;seeing gynecology soon;they will review 13vit d deficiency;correct 178205 15per endocrinology monitor 16correction refer GTT; 2 hour glucose 36 17refer GGT 18seeing ortho;pre op 19asma,ama neg/cerulopalsmain wnl,AAT wnl 20Negative hep A antibody positive hep B surface antibody negative antigen negative hep C, normal ferritin 21ukltrasound Social History Social History Type Response Smoking Status Never smoker entered on: 02/20/13 Sex
--- OUTSIDE RECORDS SUMMARY | 2022-08-17 08:32 | XMS_ITS | Continuity of Care Document ---
Author Name Unknown Organization [facility] Address [address] [place] [address]- Care Team Providers Care Pipe Bender Name Role Phone Louisa LANDRUM, Taras Fuentes Primary Care Physician Encounter [facility] Date(s): 11/20/19 - 12/20/19 [facility] [address] [place] [address]- [facility] Allergies, Adverse Reactions, Alerts Substance [...] (oldterm) 5 12/25/07 Given tetanus-diphtheria toxoids (Td) 5/31/06 Given 1Result Comment: [12/07/2017] [id number] 2Result Comment: [12/21/2016] [facility]NOTE 2]: 14971-425-87 3Result Comment: [06/10/2015] #3 4Admin Note: per [...] 0 Refills, Maintenance, 07/03/19 13:59:00 EDT, Solution, [facility], 160, cm, 05/29/19 13:36:00 EDT, Height, 56.5, kg, 03... Start Date: 07/03/19 Status: Ordered albuterol CFC free 90 mcg/inh inhalation aerosol 2, puffs, Inhalation, 4 times a day, PRN, # 25 Gm, Refills 0, Tot. Refills 0, Maintenance, 07/07/2012:36:00 EDT, Aerosol, Route to Pharmacy Electronically, NCPDP_[id number], [facility], 160, cm, 07/08/19 13:03:00 [...] 60 capsule, 5 Refills, Maintenance, 07/30/19 10:21:00EDT, [facility], 160, cm, 07/08/19 13:03:00 EDT, Height, 56.5, kg, 05/29/19 13:36:00 EDT, Dry Weight Start Date: 07/30/19 Status: Ordered eletriptan 40 mg oral tablet 1 tablet = 40 mg, By Mouth, Daily, PRN for migraine headache, # 9 tablet, 5 Refills, Soft Stop, 07/16/19 9:23:00 EDT, Tablet, [facility], she has tried sumatriptan [...] 1 Refills, Soft Stop, 11/20/19 11:59:00 EDT, [facility], 160.02, cm, 11/15/19 10:05:00 [...] 02/25/19 16:55:00 EST, Route to Pharmacy Electronically, [facility], 158, cm, 02/14/19 7:55:00 EST, Height, 61.9, kg, 02/12/19 10:17:00... Start Date: 02/25/19 Status: Ordered montelukast 10 mg oral tablet 10 mg, 1, tablet, By Mouth, Daily in PM, # 90 tablet, Refills 3, Tot. Refills 3, Maintenance, 08/15/19 16:21:00 EDT, Route to Pharmacy Electronically, [facility], 160, cm, 08/15/19 13:45:00 EDT, Height, 56.5, kg, 05/29/19 13:36:00... Start Date: 08/15/19 Status: Ordered NuLYTELY with Flavor Packs oral powder for reconstitution 240 mL, By Mouth, Every 10 minutes, # 4,000 mL, 0 Refills, Maintenance, 11/15/19 10:29:00 EDT, REC Powder, [facility], 240 mL By Mouth Every 10 minutes, 160.02, cm, 11/15/19 10:05:00 EDT, Height, 67, kg, 09/11/19 11:20:00 EDT, Dry... Start Date: 11/15/19 Status: Ordered ondansetron 4 mg oral tablet, disintegrating 1 tablet = 4 mg, By Mouth, Every 8 hours, PRN as needed for nausea/vomiting, # 9 tablet, 0 Refills,Maintenance, 10/06/19 21:07:00 EDT, DIS Tablet, [facility] Start Date: 10/06/19 Stop Date: 10/09/19 Status: Ordered ProAir HFA 90 mcg/inh inhalation aerosol with adapter 2, puffs, Inhalation, Every 4 hours, PRN, # 8.5 Gm, Refills 2, Tot. Refills 2, Maintenance, 04/29/19 11:32:00 EST, Aerosol, Route to Pharmacy Electronically, NCPDP_[id number], [facility], 160, cm, [...] 07/08/19 13:36:00 EDT, Route to Pharmacy Electronically, NCPDP_[id number], [facility], 160, cm, 07/08/19 13:03:00 ED... Start Date: 07/08/19 Status: Ordered Topamax 50 mg oral tablet 2 tablet = 100 mg, By Mouth, Daily at bedtime, # 60 tablet, 6 Refills, Maintenance, 11/04/19 11:08:00 EDT, Tablet, [facility], weaning zonegran off by [...] Refills, Soft Stop, 11/25/19 21:26:00 EDT, Tablet, [facility], 160.02, cm, 11/15/19 10:05:00 EDT, Height,... Start Date: 11/25/19 Status: Ordered Zofran 4 mg oral tablet 1 tablet = 4 mg, By Mouth, Every 8 hours, PRN Nausea & Vomiting, # 30 tablet, 0 Refills, Maintenance, 09/30/19 11:23:00 EDT, [facility], 160.02, cm, 09/24/19 15:31:00 [...] perst 3folowed by mental health;recent hospitalization 4gyn 48021 6testing negative insulinoma 7likley dumping sydrome 8abnormal GTT ;sugar 36 two hours into test 9sees gi 10normal CT brain 11new 125.3 cm,right per ct scan recent;seeing gynecology soon;they will review 13vit d deficiency;correct 861105 15per endocrinology monitor 16correction refer GTT; 2 hour glucose 36 17refer GGT 18seeing ortho;pre op 19asma,ama neg/cerulopalsmain wnl,AAT wnl 20Negative hep A antibody positive hep B surface antibody negative antigen negative hep C, normal ferritin 21ukltrasound Social History Social History Type Response Smoking Status Never smoker entered on: 02/20/13 Sex
--- OUTSIDE RECORDS SUMMARY | 2022-08-17 08:32 | XMS_ITS | Continuity of Care Document ---
Author Name Unknown Organization [facility] Address [address] [place] [address]- Care Team Providers Care International First Officer Name Role Phone Louisa LANDRUM, Taras Fuentes Primary Care Physician Encounter [facility] Date(s): 04/24/20 - 05/24/20 [facility] [address] [place] [id number] Allergies, Adverse Reactions, Alerts Substance Reaction [...] toxoids (Td) 08/03/05 Given 1Result Comment: [12/07/2017] [id number] 2Result Comment: [12/21/2016] [facility]NOTE 3]: [id number] 3Result Comment: [06/10/2015] #3 4Admin Note: per [...] 07/03/19 13:59:00 EDT, Solution, [facility], 160, cm, 05/29/19 13:36:00 EDT, Height, [...] 5 Refills, Maintenance, 05/07/20 15:54:00EST, [facility], 160.02, cm, 05/01/20 9:18:00 EST, Height, [...] Stop, 11/20/19 11:59:00 EDT, [facility], 160.02, cm, 11/15/19 10:05:00 EDT, Height, [...] [facility], 160, cm, 08/15/19 13:45:00 EDT, Height, 56.5, kg, 05/29/19 13:36:00... Start Date: 08/15/19 Status: Ordered ProAir HFA 90 mcg/inh inhalation aerosol with adapter 2, puffs, Inhalation, Every 4 hours, PRN, # 8.5 Gm, Refills 2, Tot. Refills 2, Maintenance, 04/29/19 11:32:00 EST, Aerosol, Route to Pharmacy Electronically, NCPDP_[id number], [facility], 160, cm, 04/29/19 10:47:00 EST, Height... Start Date: 04/29/19 Status: Ordered Topamax 50 mg oral tablet See Instructions, take 1 tab in am and 2 tab at bedtime. If AM dose causes bad sedation, add to HS dose., # 90 tablet, 6 Refills, Maintenance, 03/12/20 11:09:00 EST, Tablet, [facility], weaning zonegran off by 25mg every 2 days t... Start Date: 03/12/20 Status: Ordered ubrogepant 100 mg oral tablet 1 tablet = 100 mg, By Mouth, Daily, # 10 tablet, 6 Refills, Soft Stop, 03/12/20 11:04:00 EST, [facility], Partial fill upon patient request if [...] perst 3folowed by mental health;recent hospitalization 4gyn 77053 6testing negative insulinoma 7likley dumping sydrome 8abnormal GTT ;sugar 36 two hours into test 9sees gi 10normal CT brain 11new 125.3 cm,right per ct scan recent;seeing gynecology soon;they will review 13vit d deficiency;correct 214050 15per endocrinology monitor 16correction refer GTT; 2 hour glucose 36 17refer GGT 18seeing ortho;pre op 19asma,ama neg/cerulopalsmain wnl,AAT wnl 20Negative hep A antibody positive hep B surface antibody negative antigen negative hep C, normal ferritin 21ukltrasound Social History Social History Type Response Smoking Status Never smoker entered on: 02/20/13 Sex
--- OUTSIDE RECORDS SUMMARY | 2022-08-17 08:32 | XMS_ITS | Continuity of Care Document ---
Author Name Unknown Organization [facility] Address [address] [place] [address]- Care Team Providers Care Cake Former Name Role Phone Louisa LANDRUM, Taras Fuentes Primary Care Physician [phone] Encounter [facility] Date(s): 05/04/20 - 06/03/20 [facility] [address] [place] [address]- Allergies, Adverse Reactions, Alerts Substance Reaction Severity [...] toxoids (Td) 08/03/05 Given 1Result Comment: [12/07/2017] [id number] 2Result Comment: [12/21/2016] [facility]: 79775-657-92 3Result Comment: [06/10/2015] #3 4Admin Note: per [...] Refills, Maintenance, 07/03/19 13:59:00 EDT, Solution, [facility], 160, cm, 05/29/19 13:36:00 EDT, [...] capsule, 5 Refills, Maintenance, 05/07/20 15:54:00EST, [facility], 160.02, cm, 05/01/20 9:18:00 EST, [...] 16:55:00 EST, Route to Pharmacy Electronically, [facility], 158, cm, 02/14/19 7:55:00 EST, Height, 61.9, kg, 02/12/19 10:17:00... Start Date: 02/25/19 Status: Ordered montelukast 10 mg oral tablet 10 mg, 1, tablet, By Mouth, Daily in PM, # 90 tablet, Refills 3, Tot. Refills 3, Maintenance, 08/15/19 16:21:00 EDT, Route to Pharmacy Electronically, [facility], 160, cm, 08/15/19 13:45:00 EDT, Height, 56.5, kg, 05/29/19 13:36:00... Start Date: 08/15/19 Status: Ordered ProAir HFA 90 mcg/inh inhalation aerosol with adapter 2, puffs, Inhalation, Every 4 hours, PRN, # 8.5 Gm, Refills 2, Tot. Refills 2, Maintenance, 04/29/19 11:32:00 EST, Aerosol, Route to Pharmacy Electronically, NCPDP_[id number], [facility], 160, cm, 04/29/19 10:47:00 EST, Height... Start Date: 04/29/19 Status: Ordered Topamax 50 mg oral tablet See Instructions, take 1 tab in am and 2 tab at bedtime. If AM dose causes bad sedation, add to HS dose., # 90 tablet, 6 Refills, Maintenance, 03/12/20 11:09:00 EST, Tablet, [facility], weaning zonegran off by 25mg every 2 days t... Start Date: 03/12/20 Status: Ordered ubrogepant 100 mg oral tablet 1 tablet = 100 mg, By Mouth, Daily, # 10 tablet, 6 Refills, Soft Stop, 03/12/20 11:04:00 EST, [facility], Partial fill [...] perst 3folowed by mental health;recent hospitalization 4gyn 36726 6testing negative insulinoma 7likley dumping sydrome 8abnormal GTT ;sugar 36 two hours into test 9sees gi 10normal CT brain 11new 125.3 cm,right per ct scan recent;seeing gynecology soon;they will review 13vit d deficiency;correct [id number] 15per endocrinology monitor 16correction refer GTT; 2 hour glucose 36 17refer GGT 18seeing ortho;pre op 19asma,ama neg/cerulopalsmain wnl,AAT wnl 20Negative hep A antibody positive hep B surface antibody negative antigen negative hep C, normal ferritin 21ukltrasound Social History Social History Type Response Smoking Status Never smoker entered on: 02/20/13 Sex
--- OUTSIDE RECORDS SUMMARY | 2022-08-17 08:32 | XMS_ITS | Continuity of Care Document ---
Author Name Unknown Organization [facility] lt Address [address] [place] [address]- Care Team Providers Care Residence Supervisor Name Role Phone Louisa LANDRUM, Taras Fuentes Primary Care Physician [place] [facility] [place]02[place]20 - 12/02/20 [facility] [address] [place] [address]- Allergies, Adverse Reactions, Alerts Substance Reaction Severity [...] toxoids (Td) 08/03/05 Given 1Result Comment: [12/07/2017] [address]-76 2Result Comment: [12/21/2016] [facility]: 56606-051-01 3Result Comment: [06/10/2015] #3 4Admin Note: per [...] 6 Refills, Maintenance, 11/12/20 10:44:00 EDT,DIS Tablet, [facility], has t... Start Date: 11/12/20 Status: Ordered [place] 0.65% nasal spray 2 sprays, Nares, Both, 4 times a day, # 1 each, 0 Refills, Maintenance, 10/30/20 11:34:00 EDT, [facility], Partial fill upon patient request if the prescription is for a scheduleII opioid drug., 2 sprays Nares, Both 4 times a day... Start Date: 10/30/20 Status: Ordered pregabalin 75 mg oral capsule 1 capsule = 75 mg, By Mouth, Daily, # 30 capsule, 0 Refills, Maintenance, 08/27/20 9:45:00 EDT, Capsule, [facility], Partial [...] 11:32:00 EST, Aerosol, Route to Pharmacy Electronically, [id number], [facility] - C, 160, cm, 04/29/19 10:47:00 EST, Height... Start Date: 04/29/19 Status: Ordered Reclast = 5 mg, IV Infusion, Once, 0 Refills, Maintenance, 11/06/20 10:24:00 EDT, administered at [facility] 10/2020 Start Date: 11/06/20 Status: Ordered scopolamine 1 mg/72 hr transdermal film, extended release 0 Refills, Maintenance, 11/13/20 9:09:00 EDT, Partial fill upon patient request if the prescriptionis for a schedule II opioid drug. Start Date: 11/13/20 Status: Ordered Symbicort 160mcg/4.5mcg Inhaler 2, puffs, Inhalation, 2 times a day, with spacer., # 10.2 Gm, Refills 11, Route to Pharmacy Electronically, [id number], [facility], 158.02, cm, [...] capsule, 5 Refills, Maintenance, 11/12/20 10:43:00 EDT, [facility], Partial [...] 1resolved after weight loss 2chronic perst 3gyn 13603 5testing negative insulinoma 6likley dumping sydrome 7abnormal GTT ;sugar 36 two hours into test 8sees gi 9normal CT brain 10new 115.3 cm,right per ct scan recent;seeing gynecology soon;they will review 12vit d deficiency;correct 775865 14per endocrinology monitor 15correction refer GTT; 2 hour glucose 36 16refer GGT 17seeing ortho;pre op 18asma,ama neg/cerulopalsmain wnl,AAT wnl 19Negative hep A antibody positive hep B surface antibody negative antigen negative hep C, normal ferritin 20ukltrasound Social History Social History Type Response Smoking Status Never smoker entered on: 02/20/13 Sex
--- OUTSIDE RECORDS SUMMARY | 2022-08-17 08:32 | XMS_ITS | Continuity of Care Document ---
Author Name Unknown Organization [facility] [place] Address [address] [place] [address]- Care Team Providers Care Educational Recruiter Name Role Phone Louisa LANDRUM, Taras Fuentes Primary Care Physician Encounter [facility] Date(s): 01/05/21 - 02/04/21 [facility] [address] [address]- Allergies, Adverse Reactions, Alerts Substance Reaction Severity [...] toxoids (Td) 08/03/05 Given 1Result Comment: [12/07/2017] [address]-07 2Result Comment: [12/21/2016] [facility]: 41326-718-75 3Result Comment: [06/10/2015] #3 4Admin Note: per [...] 3 Refills, Maintenance, 02/03/21 8:34:00 EST, Tablet, [facility], Partial fill upon patient request if the prescript... Start Date: 02/03/21 Status: Ordered acarbose 50 mg oral tablet 1 tablet = 50 mg, By Mouth, 3 times a day, Take 1 tab (plus 1 25mg tab), 3 times daily with meals.,# 270 tablet, 3 Refills, Maintenance, 02/03/21 8:34:00 EST, Tablet, [facility], Partial fill upon patient request if the prescript... Start Date: 02/03/21 Status: Ordered Baqsimi One Pack 3 mg nasal powder See Instructions, 3 mg Once intrasnasally for severe hypoglycemia, # 2 each, 3 Refills, Soft Stop, 08/28/20 10:36:00 EDT, [facility], Partial fill [...] 5 Refills, Maintenance, 11/06/20 10:28:00 EDT, Tablet, [facility], Replaces loratidine, 158.02, [...] 0 Refills, Maintenance, 11/03/20 7:49:00 EDT, Tablet, [facility], Partial fill [...] 6 Refills, Maintenance, 12/10/20 12:36:00 EDT,DIS Tablet, [facility], has t... Start Date: 12/10/20 Stop Date: 07/08/21 Status: Ordered [place] 0.65% nasal spray 2 sprays, Nares, Both, 4 times a day, # 1 each, 0 Refills, Maintenance, 10/30/20 11:34:00 EDT, [facility], Partial fill [...] 8:26:00 EDT, Aerosol, Route to Pharmacy Electronically, NCPDP_[id number], [facility], 158.02, cm, 01/06/21 8:03:00 [...] Gm, Refills 11, Route to Pharmacy Electronically, NCPDP_[id number], [facility], 158.02, cm, 11/13/20 [...] mL, 1 Refills, Maintenance, 01/06/21 13:36:00 EDT, [facility], Partialfill upon patient request [...] 1resolved after weight loss 2chronic perst 3gyn 95972 5testing negative insulinoma 6likley dumping sydrome 7abnormal GTT ;sugar 36 two hours into test 8sees gi 9normal CT brain 10new 115.3 cm,right per ct scan recent;seeing gynecology soon;they will review 12vit d deficiency;correct 269429 14per endocrinology monitor 15correction refer GTT; 2 hour glucose 36 16refer GGT 17seeing ortho;pre op 18asma,ama neg/cerulopalsmain wnl,AAT wnl 19Negative hep A antibody positive hep B surface antibody negative antigen negative hep C, normal ferritin 20ukltrasound Social History Social History Type Response Smoking Status Never smoker entered on: 02/20/13 Sex
--- OUTSIDE RECORDS SUMMARY | 2022-08-17 08:32 | XMS_ITS | Continuity of Care Document ---
Author Name Unknown Organization [facility] Address [address] [facility], [address] Floor, [address] [place] [address]- Care Team Providers Care Medical Claims Processor Name Role Phone Eran GEOSCIENTIST, Sue Dahl Primary Care Physician Encounter [facility] [place] Date(s): 02/08/22 - 03/10/22 [facility] [address], [address], [address] [place] [id number] Attending Physician: Konrad Curtis Admitting Physician: Konrad Curtis Referring Physician: AdmtrKonrad Allergies, Adverse Reactions, Alerts Substance Reaction Severity Status Dust Allergy to pollen Active Incruse Ellipta 1 lightheaded and migraine Active Pollen seasonal allergies respiratory symptoms Active 1dizzy Immunizations Given and Recorded Vaccine Date Status Refusal Reason [id number] 12y+ bivalent booster vax 1 12/24/21 Given [...] vaccine, inactivated 02/08/11 Give n SARS-CoV-2 mRNA ([id number]-[id number]-wontu) vax 05/01/21 Recorded zoster vaccine, inactivated 11/03/20 [...] tetanus-diphtheria toxoids (Td) 08/03/05 Given 1Result Comment: [address]-4 2Result Comment: 94995-434-40 3Result Comment: [12/07/2017] [address]-54 4Result Comment: [12/21/2016] [facility]: 93084-271-01 5Result Comment: [06/10/2015] #3 6Admin Note: per pt 7Admin Note: given in clinic Medications acarbose 25 mg oral tablet See Instructions, 1 tablet with 50 mg (total 75 mg) By Mouth before lunch, # 30 each, 11 Refills, Maintenance, 11/03/21 8:24:00 EDT, Tablet, [facility], 158, cm, 11/03/21 8:01:00EDT, [...] Refills, Maintenance, 11/22/21 9:49:00 EDT, CR Capsule, [facility], Partial fill upon patient request if the prescription is for a schedule II opioid... Start Date: 11/22/21 Status: Ordered Emgality Prefilled Pen 120 mg/mL subcutaneous solution = 120 mg, Subcutaneous Injection, Once, Maintenance Dose, # 1 kit, 6 Refills, Soft Stop, 02/08/22 9:15:00 EST, [facility], Partial fill [...] 11/23/21 19:57:00 EDT, Route to Pharmacy Electronically, NCPDP_[id number], [facility], 158, cm, 11/03/21 8:0... [...] 5 Refills, Maintenance, 12/10/21 9:44:00 EDT, Tablet, [facility], [...] Active Vitamin D deficiency Confirmed Active 1gyn 86964 3testing negative insulinoma 4likley dumping sydrome 5abnormal GTT ;sugar 36 two hours into test 6normal CT brain 7new 8resolved after weight loss 9chronic perst 105.3 cm,right per ct scan recent;seeing gynecology soon;they will review 11vit d deficiency;correct 766171 13per endocrinology monitor 14correction refer GTT; 2 [...] Associate Professional Member Role: PCP Address: Address: [address] [place] [address]- Name: Andria Guadalupe RN Position: [facility] SN RN Member Role: Primary Care Nurse Name: Liz Martin RN Position: [facility] RN Member Role: Primary Care Nurse Name: Ambreen Mcmahon RN Position: [facility] RN Member Role: Primary Care Nurse Name: Irais Grijalva RN Position: [facility] RN Member Role: Primary Care Nurse Name: Autumn Martinez RN Position: [facility] SN RN Member Role: Primary Care Nurse Name: Concha Mckinley RN Position: [facility] RN Member Role: Primary Care Nurse Name: Liz English RN Position: [facility] RN Member Role: Primary Care Nurse Name: Dora Williamson RN Position: [facility] RN Member Role: Primary Care Nurse Care Team Related Persons Name: KHUSHI CUNNINGHAM Address: home [address] [place] [address] Name: BHUPINDER VENEGAS Address: home [address] [place] [address] Name: FELIPE FLORES Address: home [address] [place] [address] Name: ARNAV FLORES Address: home [address] [place] [address] Name: IRINA FLROES Address: home [address] [place] [address] Name: RUSLAN FLORES Address: home [address] [facility] [facility] [address] [place] [address] Name: KAISER PLUNKETT Address: home [address] [place] [address]
--- OUTSIDE RECORDS SUMMARY | 2022-08-17 08:32 | XMS_ITS | Continuity of Care Document ---
Author Name Unknown Organization [facility] Address [address] [place] [address]- Care Team Providers Care Multiple Needle Stitcher Name Role Phone Louisa LANDRUM, Taras Fuentes Primary Care Physician Encounter [facility] Date(s): 03/22/19 - 03/29/19 [facility] [address] [place] [address]- [facility] Encounter Diagnosis Asthma exacerbation(Discharge Diagnosis) - 03/22/19 Flu-like symptoms(Discharge Diagnosis) - 03/22/19 Attending Physician: Carter Tierney MD Referring Physician: [...] toxoids (Td) 08/03/05 Given 1Result Comment: [12/07/2017] [address]-52 2Result Comment: [12/21/2016] [facility]: 31991-499-21 3Result Comment: [06/10/2015] #3 4Admin Note: per [...] Gm, 2 Refills, Maintenance, 03/22/19 10:44:00 EST, [place], [facility], 1 sprays Nares, Both [...] Tot. Refills 11, Maintenance, DX:J45.909 ASTHMA FAX [id number], 12/21/17 11:58:59 EDT, Compound Start Date: 12/21/17 [...] 03/31/19 10:44:00 EST, 03/22/19 10:43:00 EST, Tablet, [facility], 158, cm,... Start Date: 03/22/19 Stop Date: 03/31/19 Status: Ordered ProAir HFA 90 mcg/inh inhalation aerosol with adapter 2, puffs, Inhalation, Every 4 hours, PRN, # 8.5 Gm, Refills 2, Tot. Refills 2, Maintenance, 03/22/19 10:40:00 EST, Aerosol, Route to Pharmacy Electronically, NHPDP_[id number], [facility], 158, cm, 03/22/19 10:31:00 [...] 05/12/17 8:15:18, Aerosol, Route to Pharmacy Electronically, NCPDP_[id number], [facility]... Start Date: 05/12/17 Status: Ordered tiZANidine 2 [...] perst 3folowed by mental health;recent hospitalization 4gyn 90919 6testing negative insulinoma 7likley dumping sydrome 8abnormal GTT ;sugar 36 two hours into test 9sees gi 10normal CT brain 11new 125.3 cm,right per ct scan recent;seeing gynecology soon;they will review 13vit d deficiency;correct 857413 15per endocrinology monitor 16correction refer GTT; 2 hour glucose 36 17refer GGT 18seeing ortho;pre op 19asma,ama neg/cerulopalsmain wnl,AAT wnl 20Negative hep A antibody positive hep B surface antibody negative antigen negative hep C, normal ferritin 21ukltrasound Diagnosis Diagnosis Type Effective Dates Health Status Clinical Service Informant Asthma exacerbation Discharge Diagnosis 03/22/19 Flu-like symptoms Discharge Diagnosis 03/22/19 Vital Signs Most recent to oldest [Reference Range]: 1 Height 158 cm (03/22/19 10:31 AM) Weight 63.7 kg (03/22/19 10:31 AM) Oxygen Saturation [94-100 %] 100 % (03/22/19 10:31 AM) Pulse Rate [55-90 bpm] 69 bpm (03/22/19 10:31 AM) Body Mass Index [18.5-24.99] 25.52 *H* (03/22/19 10:31 AM) Blood Pressure [90-138/55-84 mm Hg] 108/ 73mm Hg (03/22/19 10:31 AM) Respiratory Rate [16-30 br/min] 18 br/mi n (03/22/19 10:31 AM) Temperature [96.8-100.4 DegF] 97.7 DegF (03/22/19 10:31 AM) Mode of Delivery (Oxygen) Room air (03/22/19 10:31 AM) Blood pressure sites Arm, right (03/22/19 10:31 AM) Temperature Route Oral (03/22/19 10:31 AM) Dry Weight 63.7 kg (03/22/19 10:31 AM) Weight Obtained Via Standing scale (03/22/19 10:31 AM) Dry Weight Obtained Via Standing scale (03/22/19 10:31 AM) Social History Social History Type Response Smoking Status Never smoker entered on: 02/20/13 Sex
--- OUTSIDE RECORDS SUMMARY | 2022-08-17 08:32 | XMS_ITS | Continuity of Care Document ---
Author Name Unknown Organization [facility] Address [address] [place] [address] [address] [place] [address]- Care Team Providers Care Commuter Train Operator Name Role Phone Eran POSTMASTER, Sue Dahl Primary Care Physician [phone] Encounter [facility] Date(s): 04/18/22 - 05/18/22 [facility] [address] [place] [address]- Allergies, Adverse Reactions, Alerts Substance Reaction Severity Status Dust Allergy to pollen Active Pollen seasonal allergies respiratory symptoms Active Incruse Ellipta 1 lightheaded and migraine Active 1dizzy Immunizations Given and Recorded Vaccine Date Status Refusal Reason [id number] 12y+ bivalent booster vax 1 12/24/21 Given [...] vaccine, inactivated 02/08/11 Give n SARS-CoV-2 mRNA (ibwgejm-bluj-twcvb) vax 05/01/21 Recorded zoster vaccine, inactivated 11/03/20 [...] tetanus-diphtheria toxoids (Td) 08/03/05 Given 1Result Comment: [id number] 2Result Comment: [id number] 3Result Comment: [12/07/2017] [id number] 4Result Comment: [12/21/2016] [facility]: 30273-502-81 5Result Comment: [06/10/2015] #3 6Admin Note: per pt 7Admin Note: given in clinic Medications acetaminophen 500 mg oral tablet 2 tablet = 1,000 mg, By Mouth, Every 6 hours, PRN as needed for fever, # 200 tablet, 0 Refills, Maintenance, 12/03/21 10:17:00 EDT, Tablet, [facility], Partial fill upon patient request if the prescription is for a schedule II opi... Start Date: 12/03/21 Status: Ordered Albuterol (Eqv-ProAir HFA) 90 mcg/inh inhalation aerosol 2 puffs, Inhalation, Every 4 hours, PRN NEEDED FOR WHEEZING, # 8.5 Gm, 5 Refills, Maintenance, 03/09/22 11:21:00 EST, [facility], 17, INHALE TWO PUFFS BY [...] 6 Refills, Maintenance, 11/03/21 8:23:00 EDT, Tablet, [facility], 2 tablet By Mouth 2 times a day, 158, cm, 11/03/21 8:01:00 EDT,Height, 71.5, kg, 09/01/21 16:21:00 EDT, Dry Weight Start Date: 11/03/21 Status: Ordered Carafate 1 gm/10 ml oral suspension 10 mL = 1 Gm, By Mouth, 3 times a day before meals and bedtime, # 1,200 mL, 5 Refills, Maintenance,04/29/22 9:16:00 EST, [id number], Partial fill upon patient request if the prescription is for a schedule II opioid drug., 158, cm, 02... Start Date: 04/29/22 Status: Ordered clonazePAM 1 mg oral tablet [...] Refills, Maintenance, 11/22/21 9:49:00 EDT, CR Capsule, [facility], Partial fill upon patient request if the prescription is for a schedule II opioid... Start Date: 11/22/21 Status: Ordered Emgality Prefilled Pen 120 mg/mL subcutaneous solution = 120 mg, Subcutaneous Injection, Once, Maintenance Dose, # 3 kit, 2 Refills, Soft Stop, 03/17/22 8:08:00 EST, [facility], requesting 3 month supply for [...] 6 Refills, Maintenance, 01/31/22 14:05:00 EST, Suspension, [facility], Partial fill upon patient request if the prescription is for a schedule II opioid drug., 163, cm, 01/18... Start Date: 01/31/22 Stop Date: 08/29/22 Status: Ordered Fiber Choice 1.5 g oral tablet, chewable 1 tablet = 1.5 Gm, Chew, 3 times a day, # 90 tablet, 0 Refills, Maintenance, 04/09/22 15:16:00 EST,Chew Tablet, [id number], Partial fill upon patient request if the [...] Refills, Maintenance, 04/09/22 15:16:00 EST, REC Powder, [facility][id number], Partial fill upon patient request if the prescription is for a schedule II opioid drug., 17 Gm... Start Date: 04/09/22 Status: Ordered montelukast 10 mg oral tablet 1, tablet, By Mouth, Daily in PM, # 90 tablet, Refills 1, Tot. Refills 1, Maintenance, 11/14/21 11:28:00 EDT, Route to Pharmacy Electronically, [facility], 158, cm, 11/03/21 8:01:00 EDT, Height, 71.5, kg, 09/01/21 16:21:00 EDT, Start Date: 11/14/21 Status: Ordered Nurtec ODT 75 mg oral tablet, disintegrating See Instructions, TAKE ONE TABLET DAILY NEEDED FOR migraines, DO NOT EXCEED ONE TABLET IN 24 HOURS, # 8 tablet, 6 Refills, Maintenance, 12/28/21 15:14:00 EDT, [facility], 163,cm, 12/24/21 8:20:00 EDT, Height, [...] each, 0 Refills, Maintenance, 04/06/22 15:29:00 EST, [facility][id number], Partial fi... Start Date: 04/06/22 Status: Ordered Reclast = 5 mg, IV Infusion, Once, 0 Refills, Maintenance, 11/06/20 10:24:00 EDT, administered at [facility] 10/2020 Start Date: 11/06/20 Status: Ordered Stool Softener + Stimulant Laxative 50 mg-8.6 mg oral capsule 1 capsule, By Mouth, Daily in PM, # 60 capsule, 0 Refills, Maintenance, 04/09/22 15:17:00 EST, Capsule, [facility][id number], Partial fill upon patient request if the prescription is for a schedule II opioid drug., 1 capsule By Mouth Daily in P... Start Date: 04/09/22 Status: Ordered Symbicort 160mcg/4.5mcg Inhaler 2, puffs, Inhalation, 2 times a day, rinse mouth and throat after use, # 10.2 Gm, Refills 3, Tot. Refills 3, Maintenance, 11/23/21 19:57:00 EDT, Route to Pharmacy Electronically, NCPDP_[id number], [facility], 158, cm, 11/03/21 8:0... Start [...] 5 Refills, Maintenance, 12/10/21 9:44:00 EDT, Tablet, [facility], Partial [...] Active Vitamin D deficiency Confirmed Active 1gyn 89446 3testing negative insulinoma 4likley dumping sydrome 5abnormal GTT ;sugar 36 two hours into test 6normal CT brain 7new 8resolved after weight loss 9chronic perst 105.3 cm,right per ct scan recent;seeing gynecology soon;they will review 11vit d deficiency;correct 311012 13per endocrinology monitor 14correction refer GTT; 2 hour glucose 36 15refer GGT 16seeing ortho;pre op 17asma,ama neg/cerulopalsmain wnl,AAT wnl 18Negative hep A antibody positive hep B surface antibody negative antigen negative hep C, normal ferritin 19ukltrasound Social History Social History Type Response Smoking Status Never smoker entered on: 02/20/13 Sex Patient Care team information Care Team Personnel Name: Caitlyn Mcgee RN Position: [facility] RN Member Role: Primary Care Nurse Name: Sue Barillas NP Position: [facility] PCO Associate Professional Member Role: PCP Address: Address: [address] [place] [id number] Name: Andria Guadalupe RN Position: [facility] SN RN Member Role: Primary Care Nurse Name: Liz Martin RN Position: S RN Member Role: Primary Care Nurse Name: Ambreen Mcmahon RN Position: [facility] RN Member Role: Primary Care Nurse Name: Irais Grijalva RN Position: [facility] RN Member Role: Primary Care Nurse Name: Autumn Martinez RN Position: [facility] SN RN Member Role: Primary Care Nurse Name: Liz English RN Position: [facility] RN Member Role: Primary Care Nurse Name: Dora Williamson RN Position: [facility] RN Member Role: Primary Care Nurse Care Team Related Persons Name: KHUSHI CUNNINGHAM Address: [address] [place] [address] Name: BHUPINDER VENEGAS Address: [address] [place] [address] Name: FELIPE FLORES Address: home [address] [place] [address] Name: ARNAV FLORES Address: home [address] [place] [address] Name: IRINA FLORES Address: home [address] [place] [address] Name: RUSLAN FLORES Address: home [address] [facility] [place] [address] Name: KAISER PLUNKETT Address: home [facility] [address] [place] [address]
--- OUTSIDE RECORDS SUMMARY | 2022-08-17 08:33 | XMS_ITS | Continuity of Care Document ---
Author Name Unknown Organization [facility] Address [address] [place] [id number]- Care Team Providers Care Wafer Production Worker Name Role Phone Eran Sue JOHNSON Primary Care Physician Encounter [facility] Date(s): 07/14/22 - 08/13/22 [facility] [address] [place] [address]- Allergies, Adverse Reactions, Alerts Substance Reaction Severity Status Dust Allergy to pollen Active Pollen seasonal allergies respiratory symptoms Active Incruse Ellipta 1 lightheaded and migraine Active 1dizzy Immunizations Given and Recorded Vaccine Date Status Refusal Reason tetanus-diphtheria toxoids (Td) 1 07/28/22 Given tetanus-diphtheria toxoids (Td) 08/03/05 Given pneumococcal 20-valent conjugate vaccine 2 07/28/22 Given [id number] 12y+ bivalent booster vax 3 12/24/21 Given [...] vaccine, inactivated 02/08/11 Give n SARS-CoV-2 mRNA ([id number]) vax 05/01/21 Recorded zoster vaccine, inactivated 11/03/20 [...] (IM) (oldterm) 9 12/25/07 Given 1Result Comment: [id number] 2Result Comment: [id number] 3Result Comment: [id number] 4Result Comment: [id number] 5Result Comment: [12/07/2017] [address]-25 6Result Comment: [12/21/2016] [facility]: [id number] 7Result Comment: [06/10/2015] #3 8Admin Note: per pt 9Admin Note: given in clinic Medications acetaminophen 500 mg oral tablet 2 tablet = 1,000 mg, By Mouth, Every 6 hours, PRN as needed for fever, # 200 tablet, 0 Refills, Maintenance, 12/03/21 10:17:00 EDT, Tablet, [facility], Partial fill upon patient request if the prescription is for a schedule II opi... Start Date: 12/03/21 Status: Ordered Albuterol (Eqv-ProAir HFA) 90 mcg/inh inhalation aerosol 2 puffs, Inhalation, Every 4 hours, PRN NEEDED FOR WHEEZING, # 8.5 Gm, 5 Refills, Maintenance, 03/09/22 11:21:00 EST, [facility], 17, INHALE TWO [...] 6 Refills, Maintenance, 11/03/21 8:23:00 EDT, Tablet, [facility], 2 tablet By Mouth 2 times a day, 158, cm, 11/03/21 8:01:00 EDT,Height, 71.5, kg, 09/01/21 16:21:00 EDT, Dry Weight Start Date: 11/03/21 Status: Ordered cetirizine 10 mg oral tablet 1 tablet, By Mouth, Daily, # 30 tablet, 5 Refills, Maintenance, 07/28/22 13:34:00 EDT, [facility], 158, cm, 07/28/22 13:14:00 EDT, [...] Refills, Maintenance, 05/30/22 7:57:00 EDT, CR Capsule, [facility], Partial fill upon patient request if the prescription is for a schedule II opioid... Start Date: 05/30/22 Status: Ordered Emgality Prefilled Pen 120 mg/mL subcutaneous solution = 120 mg, Subcutaneous Injection, Once, Maintenance Dose, # 3 kit, 2 Refills, Soft Stop, 07/14/22 10:04:00 EDT, [facility], requesting 3 month [...] 6 Refills, Maintenance, 08/08/22 12:33:00 EDT, Suspension, [facility] #[id number], Partial fill upon patient request if the prescription is for a schedule II opioid drug., 160, cm, 08/03/22... Start Date: 08/08/22 Stop Date: 03/06/23 Status: Ordered famotidine 40 mg oral tablet 1 tablet = 40 mg, By Mouth, 2 times a day, for 30 days, # 60 tablet, 6 Refills, Hard Stop 08/29/22 14:05:00 EDT, 01/31/22 14:05:00 EST, Suspension, [facility], Partial fill upon patient request if the prescription is for a schedul... Start Date: 01/31/22 Stop Date: 08/29/22 Status: Ordered Fiber Choice 1.5 g oral tablet, chewable 1 tablet = 1.5 Gm, Chew, 3 times a day, # 90 tablet, 0 Refills, Maintenance, 04/09/22 15:16:00 EST,Chew Tablet, [facility] #[id number], Partial fill upon patient request if the [...] Refills, Maintenance, 04/09/22 15:16:00 EST, REC Powder, [facility] #[id number], Partial fill upon patient request if the prescription is for a schedule II opioid drug., 17 Gm... Start Date: 04/09/22 Status: Ordered montelukast 10 mg oral tablet 1, tablet, By Mouth, Daily in PM, # 90 tablet, Refills 1, Tot. Refills 1, Maintenance, 11/14/21 11:28:00 EDT, Route to Pharmacy Electronically, [facility], 158, cm, 11/03/21 8:01:00 EDT, Height, 71.5, kg, 09/01/21 16:21:00 EDT, Start Date: 11/14/21 Status: Ordered Nurtec ODT 75 mg oral tablet, disintegrating See Instructions, TAKE ONE TABLET DAILY NEEDED FOR migraines, DO NOT EXCEED ONE TABLET IN 24 HOURS, # 8 tablet, 6 Refills, Maintenance, 12/28/21 15:14:00 EDT, [facility], 163,cm, 12/24/21 8:20:00 [...] 0 Refills, Maintenance, 04/09/22 15:17:00 EST, Capsule, [facility] #[id number], Partial fill upon patient request if the prescription is for a schedule II opioid drug., 1 capsule By Mouth Daily in P... Start Date: 04/09/22 Status: Ordered Symbicort 160mcg/4.5mcg Inhaler 2, puffs, Inhalation, 2 times a day, rinse mouth and throat after use, # 10.2 Gm, Refills 2, Tot. Refills 2, Maintenance, 06/10/22 20:48:00 EDT, Route to Pharmacy Electronically, NCPDP_[id number], [facility], 158, cm, 06/07/22 [...] Active Vitamin D deficiency Confirmed Active 1gyn 91064 3testing negative insulinoma 4likley dumping sydrome 5abnormal GTT ;sugar 36 two hours into test 6normal CT brain 7new 8resolved after weight loss 9chronic perst 105.3 cm,right per ct scan recent;seeing gynecology soon;they will review 11vit d deficiency;correct [id number] 13per endocrinology monitor 14correction refer GTT; 2 hour glucose 36 15refer GGT 16seeing ortho;pre op 17asma,ama neg/cerulopalsmain wnl,AAT wnl 18Negative hep A antibody positive hep B surface antibody negative antigen negative hep C, normal ferritin 19ukltrasound Social History Social History Type Response Smoking Status Never smoker entered on: 02/20/13 Sex Patient Care team information Care Team Personnel Name: Caitlyn Mcgee RN Position: [facility] RN Member Role: Primary Care Nurse Name: Sue Bairllas NP Position: [facility] PCO Associate Professional Member Role: PCP Address: Address: [address] [place] [address] Name: Andria Guadalupe RN Position: [facility] SN RN Member Role: Primary Care Nurse Name: Liz Martin RN Position: [facility] RN Member Role: Primary Care Nurse Name: Ambreen Mcmahon RN Position: [facility] RN Member Role: Primary Care Nurse Name: Irais Grijalva RN Position: [facility] RN Member Role: Primary Care Nurse Name: Autumn Martinez RN Position: [facility] SN RN Member Role: Primary Care Nurse Name: Liz English RN Position: [facility] RN Member Role: Primary Care Nurse Name: Dora Williamson RN Position: [facility] RN Member Role: Primary Care Nurse Care Team Related Persons Name: KHUSHI CUNNINGHAM Address: home [address] [place] [address] Name: BHUPINDER VENEGAS Address: home [address] [place] [address] Name: FELIPE FLORES Address: home [address] [place] [address] Name: ARNAV FLORES Address: home [address] [place] [address] Name: IRINA FLORES Address: home [address] [place] [address] Name: RUSLAN FLORES Address: home [address] [place] [address] Name: KAISER PLUNKETT Address: home [address] [place] [address]
--- OUTSIDE RECORDS SUMMARY | 2022-08-17 08:33 | XMS_ITS | Continuity of Care Document ---
Author Name Unknown Organization [facility] Address [address] [place] [address]- Care Team Providers Care Firefighting Equipment Specialist Name Role Phone Louisa LANDRUM, Taras Fuentes Primary Care Physician [phone] Encounter [facility] Date(s): 07/14/20 - 08/13/20 [facility] [address] [place] [address]- Allergies, Adverse Reactions, Alerts Substance Reaction Severity [...] toxoids (Td) 08/03/05 Given 1Result Comment: [12/07/2017] [id number] 2Result Comment: [12/21/2016] [facility]: 71603-453-81 3Result Comment: [06/10/2015] #3 4Admin Note: per pt 5Admin Note: given in clinic Medications acarbose 25 mg oral tablet 1 tablet = 25 mg, By Mouth, 3 times a day, Take 1 tablet 3 times daily with meals. Add to 50mg dosefor total of 75mg 3 times daily. E11.65, # 270 tablet, 3 Refills, Maintenance, 07/15/20 12:23:00 EDT, Tablet, [facility], Partial... Start Date: 07/15/20 Status: Ordered acarbose 50 mg oral tablet 1 tablet = 50 mg, By Mouth, 3 times a day, Take 3 times daily with meals. E11.65, # 90 tablet, 5 Refills, Maintenance, 07/13/20 16:29:00 EDT, Tablet, [facility], Partial fill upon patient [...] 0 Refills, Maintenance, 07/03/19 13:59:00 EDT, Solution, [facility], 160, cm, 05/29/19 13:36:00 [...] 30 tablet, 5 Refills, Maintenance, 07/22/20 8:03:00EDT, [facility], Partial fill upon patient [...] 60 capsule, 5 Refills, Maintenance, 05/07/20 15:54:00EST, [facility], 160.02, cm, 05/01/20 9:18:00 [...] 1 Refills, Soft Stop, 11/20/19 11:59:00 EDT, [facility], 160.02, cm, 11/15/19 10:05:00 [...] 02/25/19 16:55:00 EST, Route to Pharmacy Electronically, [facility], 158, cm, 02/14/19 7:55:00 EST, Height, 61.9, kg, 02/12/19 10:17:00... Start Date: 02/25/19 Status: Ordered montelukast 10 mg oral tablet 10 mg, 1, tablet, By Mouth, Daily in PM, # 90 tablet, Refills 3, Tot. Refills 3, Maintenance, 08/15/19 16:21:00 EDT, Route to Pharmacy Electronically, [facility], 160, cm, 08/15/19 13:45:00 EDT, Height, 56.5, kg, 05/29/19 13:36:00... Start Date: 08/15/19 Status: Ordered ProAir HFA 90 mcg/inh inhalation aerosol with adapter 2, puffs, Inhalation, Every 4 hours, PRN, # 8.5 Gm, Refills 2, Tot. Refills 2, Maintenance, 04/29/19 11:32:00 EST, Aerosol, Route to Pharmacy Electronically, NCPDP_[id number], [facility], 160, cm, 04/29/19 10:47:00 EST, Height... Start Date: 04/29/19 Status: Ordered rifAXIMin 550 mg oral tablet 1 tablet = 550 mg, By Mouth, 3 times a day, # 42 tablet, 0 Refills, Maintenance, 07/14/20 13:37:00 EDT, Tablet, [facility], Partial fill upon patient request if the prescription is for a schedule II opioid drug., 158.02, cm, 07/06... Start Date: 07/14/20 Stop Date: 07/28/20 Status: Ordered Topamax 50 mg oral tablet 2 tablet = 100 mg, By Mouth, Daily at bedtime, # 60 tablet, 6 Refills, Maintenance, 08/04/20 11:44:00 EDT, Tablet, [facility], 158.02, cm, 07/06/20 6:49:00 [...] 6 Refills, Soft Stop, 08/04/20 11:37:00 EDT, [facility], Partial fill upon patient [...] 0 Refills, Maintenance, 06/13/20 14:10:00 EDT, Capsule, [facility],... Start Date: 06/13/20 Status: [...] 1resolved after weight loss 2chronic perst 3gyn 39093 5testing negative insulinoma 6likley dumping sydrome 7abnormal GTT ;sugar 36 two hours into test 8sees gi 9normal CT brain 10new 115.3 cm,right per ct scan recent;seeing gynecology soon;they will review 12vit d deficiency;correct 926527 14per endocrinology monitor 15correction refer GTT; 2 hour glucose 36 16refer GGT 17seeing ortho;pre op 18asma,ama neg/cerulopalsmain wnl,AAT wnl 19Negative hep A antibody positive hep B surface antibody negative antigen negative hep C, normal ferritin 20ukltrasound Social History Social History Type Response Smoking Status Never smoker entered on: 02/20/13 Sex
--- OUTSIDE RECORDS SUMMARY | 2022-08-17 08:33 | XMS_ITS | Continuity of Care Document ---
Author Name Unknown Organization [facility] Address [address] [place] [address]- Care Team Providers Care Pulp Drier Firer Name Role Phone Eran SEAM HAMMERER, Sue Dahl Primary Care Physician Encounter [facility] Date(s): 05/11/21 - 06/10/21 [facility] [address] [place] [address]- Allergies, Adverse Reactions, Alerts Substance Reaction Severity Status Dust Allergy to pollen Active Pollen seasonal allergies respiratory symptoms Active Incruse Ellipta 1 lightheaded and migraine Active 1dizzy Immunizations Given and Recorded Vaccine Date Status Refusal Reason SARS-CoV-2 mRNA (wothzco-[id number]-yqdzw) vax 05/01/21 Recorded influenza virus vaccine, inactivated [...] toxoids (Td) 08/03/05 Given 1Result Comment: [12/07/2017] [address]-08 2Result Comment: [12/21/2016] [facility]: 87410-819-34 3Result Comment: [06/10/2015] #3 4Admin Note: per [...] 3 Refills, Maintenance, 02/03/21 8:34:00 EST, Tablet, [facility], Partial fill upon patient request if the prescript... Start Date: 02/03/21 Status: Ordered acarbose 50 mg oral tablet 1 tablet = 50 mg, By Mouth, 3 times a day, Take 1 tab (plus 1 25mg tab), 3 times daily with meals.,# 270 tablet, 3 Refills, Maintenance, 02/03/21 8:34:00 EST, Tablet, [facility], Partial fill upon patient request if the prescript... Start Date: 02/03/21 Status: Ordered Baqsimi One Pack 3 mg nasal powder See Instructions, 3 mg Once intrasnasally for severe hypoglycemia, # 2 each, 3 Refills, Soft Stop, 08/28/20 10:36:00 EDT, [facility], Partial fill upon [...] Refills, Maintenance, 03/03/21 16:42:00 EST, REC Powder, [facility], Partial fill upon [...] per PCP, # 30 mL, 1 Refills, [facility], 158, cm, 04/09/21 8:13:00 EST, Height, 80.6, kg, 03/08/21 12:18:00 EST, Dry Weight Start Date: 04/30/21 Status: Ordered Dexilant 60 mg oral delayed release capsule 1 capsule = 60 mg, By Mouth, 2 times a day, 30 min before meal, # 60 capsule, 5 Refills, Maintenance, 04/16/21 14:29:00 EST, CR Capsule, [facility], Partial fill upon patient request if the prescription is for a schedule II opioi... Start Date: 04/16/21 Status: Ordered Emgality Prefilled Pen 120 mg/mL subcutaneous solution = 240 mg, Subcutaneous Injection, Once, Loading Dose, # 2 kit, 0 Refills, Soft Stop, 03/16/21 16:05:00 EST, [facility], Partial fill [...] 1 Refills, Maintenance, 04/06/21 9:45:00 EST, Solution, [facility], Partial fill upon patient request if the prescription is for a schedule II opioid drug.... Start Date: 04/06/21 Status: Ordered loratadine 10 mg oral tablet 10 mg, 1, tablet, By Mouth, Daily, # 90 tablet, Refills 0, Tot. Refills 0, Maintenance, 05/24/21 11:12:00 EDT, Route to Pharmacy Electronically, [facility], 158, cm, 05/14/21 7:52:00 EST, Height, 80.6, kg, 03/08/21 12:18:00 EST, D... Start Date: 05/24/21 Status: Ordered meclizine 25 mg oral tablet See Instructions, PRN for dizziness, Take 1 tablet every 8 hours as needed for dizziness, # 15 tablet, 0 Refills, Maintenance, 11/03/20 7:49:00 EDT, Tablet, [facility], Partial fill upon patient request if the prescription is for... Start Date: 11/03/20 Status: Ordered montelukast 10 mg oral tablet 10 mg, 1, tablet, By Mouth, Daily in PM, # 90 tablet, Refills 1, Tot. Refills 1, Maintenance, 04/23/21 12:32:00 EST, Route to Pharmacy Electronically, [facility], 158, cm, 04/09/21 8:13:00 [...] 6 Refills, Maintenance, 12/10/20 12:36:00 EDT,DIS Tablet, [facility], has t... Start Date: 12/10/20 Stop Date: 07/08/21 Status: Ordered Barnes 0.65% nasal spray 2 sprays, Nares, Both, 4 times a day, # 1 each, 3 Refills, Maintenance, 05/14/21 11:40:00 EST, [facility], Partial fill [...] 19:25:00 EST, Aerosol, Route to Pharmacy Electronically, NCPDP_[id number], [facility], 158, cm, 05/06/21 6:58:00 [...] Gm, Refills 11, Route to Pharmacy Electronically, NCPDP_[id number], [facility], 158.02, cm, 11/13/20 8:38:00 [...] 1resolved after weight loss 2chronic perst 3gyn 84270 5testing negative insulinoma 6likley dumping sydrome 7abnormal GTT ;sugar 36 two hours into test 8sees gi 9normal CT brain 10new 115.3 cm,right per ct scan recent;seeing gynecology soon;they will review 12vit d deficiency;correct 295516 14per endocrinology monitor 15correction refer GTT; 2 hour glucose 36 16refer GGT 17seeing ortho;pre op 18asma,ama neg/cerulopalsmain wnl,AAT wnl 19Negative hep A antibody positive hep B surface antibody negative antigen negative hep C, normal ferritin 20ukltrasound Social History Social History Type Response Smoking Status Never smoker entered on: 02/20/13 Sex
--- OUTSIDE RECORDS SUMMARY | 2022-08-17 08:33 | XMS_ITS | Continuity of Care Document ---
Author Name Unknown Organization [facility] Oswaldo lt Address [address] [place] [address]- Care Team Providers Care Alternative Energy Technician Name Role Phone Louisa LANDRUM, Taras Fuentes Primary Care Physician Encounter [facility] Date(s): 07/06/20 - 08/05/20 [facility] Adult [address] [place] [address]- Allergies, Adverse Reactions, Alerts Substance Reaction Severity [...] pneumococcal 23-valent vaccine 08/19/13 Given tetanus/diphtheria/pertussis, acel(Tdap) 9/24/12 Given FluLaval (oldterm) 11/28/11 Given Influenza Virus Vaccine (oldterm) 4 03/24/09 Given Influenza Virus Vaccine (oldterm) 01/04/07 Given Influenza Inactive (IM) (oldterm) 5 12/25/07 Given tetanus-diphtheria toxoids (Td) 08/03/05 Given 1Result Comment: [12/07/2017] [address]-28 2Result Comment: [12/21/2016] [facility]: 54665-073-93 3Result Comment: [06/10/2015] #3 4Admin Note: per pt 5Admin Note: given in clinic Medications acarbose 25 mg oral tablet 1 tablet = 25 mg, By Mouth, 3 times a day, Take 1 tablet 3 times daily with meals. Add to 50mg dosefor total of 75mg 3 times daily. E11.65, # 270 tablet, 3 Refills, Maintenance, 07/15/20 12:23:00 EDT, Tablet, [facility], Partial... Start Date: 07/15/20 Status: Ordered acarbose 50 mg oral tablet 1 tablet = 50 mg, By Mouth, 3 times a day, Take 3 times daily with meals. E11.65, # 90 tablet, 5 Refills, Maintenance, 07/13/20 16:29:00 EDT, Tablet, [facility], Partial [...] 30 tablet, 5 Refills, Maintenance, 07/22/20 8:03:00EDT, [facility], Partial fill upon [...] 60 capsule, 5 Refills, Maintenance, 05/07/20 15:54:00EST, [facility], 160.02, cm, 05/01/20 9:18:00 [...] 11:32:00 EST, Aerosol, Route to Pharmacy Electronically, NCPDP_[id number], [facility], 160, cm, 04/29/19 10:47:00 EST, Height... Start Date: 04/29/19 Status: Ordered rifAXIMin 550 mg oral tablet 1 tablet = 550 mg, By Mouth, 3 times a day, # 42 tablet, 0 Refills, Maintenance, 07/14/20 13:37:00 EDT, Tablet, [facility], Partial fill upon patient request if the prescription is for a schedule II opioid drug., 158.02, cm, 07/06... Start Date: 07/14/20 Stop Date: 07/28/20 Status: Ordered Topamax 50 mg oral tablet 2 tablet = 100 mg, By Mouth, Daily at bedtime, # 60 tablet, 6 Refills, Maintenance, 08/04/20 11:44:00 EDT, Tablet, [facility], 158.02, cm, 07/06/20 6:49:00 [...] 6 Refills, Soft Stop, 08/04/20 11:37:00 EDT, [facility], Partial fill upon [...] 0 Refills, Maintenance, 06/13/20 14:10:00 EDT, Capsule, [facility],... Start Date: 06/13/20 Status: [...] 17 Active Fatty liver(Confirmed) 18, 19, 20 8/6/17 Active Vitamin D deficiency(Confirmed) Active 1resolved after weight loss 2chronic perst 3gyn 95165 5testing negative insulinoma 6likley dumping sydrome 7abnormal GTT ;sugar 36 two hours into test 8sees gi 9normal CT brain 10new 115.3 cm,right per ct scan recent;seeing gynecology soon;they will review 12vit d deficiency;correct 199263 14per endocrinology monitor 15correction refer GTT; 2 hour glucose 36 16refer GGT 17seeing ortho;pre op 18asma,ama neg/cerulopalsmain wnl,AAT wnl 19Negative hep A antibody positive hep B surface antibody negative antigen negative hep C, normal ferritin 20ukltrasound Social History Social History Type Response Smoking Status Never smoker entered on: 02/20/13 Sex"
--- OUTSIDE RECORDS SUMMARY | 2022-08-17 08:33 | XMS_ITS | Continuity of Care Document ---
Author Name Unknown Organization [facility] Address [address] [place] [address]- Care Team Providers Care Senior Applications Developer Name Role Phone Louisa LANDRUM, Taras Fuentes Primary Care Physician Encounter [facility] Date(s): 06/11/20 - 07/11/20 [facility] [address] [place] [address] Allergies, Adverse Reactions, Alerts Substance [...] toxoids (Td) 08/03/05 Given 1Result Comment: [12/07/2017] [address]-43 2Result Comment: [12/21/2016] [facility]: 54978-132-83 3Result Comment: [06/10/2015] #3 4Admin Note: per [...] 60 capsule, 5 Refills, Maintenance, 05/07/20 15:54:00EST, [facility], 160.02, cm, [...] 11:32:00 EST, Aerosol, Route to Pharmacy Electronically, NCPDP_[id number], [facility], [...] 0 Refills, Maintenance, 06/13/20 14:10:00 EDT, Capsule, [facility],... Start Date: 06/13/20 Status: [...] 1resolved after weight loss 2chronic perst 3gyn 25187 5testing negative insulinoma 6likley dumping sydrome 7abnormal GTT ;sugar 36 two hours into test 8sees gi 9normal CT brain 10new 115.3 cm,right per ct scan recent;seeing gynecology soon;they will review 12vit d deficiency;correct 238833 14per endocrinology monitor 15correction refer GTT; 2 hour glucose 36 16refer GGT 17seeing ortho;pre op 18asma,ama neg/cerulopalsmain wnl,AAT wnl 19Negative hep A antibody positive hep B surface antibody negative antigen negative hep C, normal ferritin 20ukltrasound Social History Social History Type Response Smoking Status Never smoker entered on: 02/20/13 Sex
--- OUTSIDE RECORDS SUMMARY | 2022-08-17 08:33 | XMS_ITS | Continuity of Care Document ---
Author Name Unknown Organization [facility] Address [address] [facility], [address] d Floor, [address] [place] [address]- Care Team Providers Care Community Health Consultant Name Role Phone Eran PROFESSIONAL NURSING TUTOR, Sue Dahl Primary Care Physician En[place] [facility] [place](s): 12/28/21 - 01/27/22 [facility] [address], 3rd Floor, [address] [place] [address]- Allergies, Adverse Reactions, Alerts Substance Reaction Severity Status Dust Allergy to pollen Active Pollen seasonal allergies respiratory symptoms Active Incruse Ellipta 1 lightheaded and migraine Active 1dizzy Immunizations Given and Recorded Vaccine Date Status Refusal Reason [id number] 12y+ bivalent booster vax 1 12/24/21 Given [...] vaccine, inactivated 02/08/11 Give n SARS-CoV-2 mRNA (xfcfjfu-yhii-gyugt) vax 05/01/21 Recorded zoster vaccine, inactivated 11/03/20 [...] tetanus-diphtheria toxoids (Td) 08/03/05 Given 1Result Comment: [address]-0 2Result Comment: 05010-445-28 3Result Comment: [12/07/2017] [address]-95 4Result Comment: [12/21/2016] [facility]: 14966-887-87 5Result Comment: [06/10/2015] #3 6Admin Note: per [...] 11/23/21 19:57:00 EDT, Route to Pharmacy Electronically, NCPDP_[id number], [facility], 158, cm, 11/03/21 [...] Active Vitamin D deficiency Confirmed Active 1gyn 50971 3testing negative insulinoma 4likley dumping sydrome 5abnormal GTT ;sugar 36 two hours into test 6sees gi 7normal CT brain 8new 9resolved after weight loss 10chronic perst 115.3 cm,right per ct scan recent;seeing gynecology soon;they will review 12vit d deficiency;correct 490329 14per endocrinology monitor 15correction refer GTT; 2 hour glucose 36 16refer GGT 17seeing ortho;pre op 18asma,ama neg/cerulopalsmain wnl,AAT wnl 19Negative hep A antibody positive hep B surface antibody negative antigen negative hep C, normal ferritin 20ukltrasound Social History Social History Type Response Smoking Status Never smoker entered on: 02/20/13 Sex Patient Care team information Care Team Personnel Name: Caitlyn Mcgee RN Position: [facility] RN Member Role: Primary Care Nurse Name: Sue Barillas NP Position: [facility] PCO Associate Professional Member Role: PCP Address: Address: [address] [place] [address]- Name: Andria Guadalupe RN Position: [facility] RN Member Role: Primary Care Nurse Name: Liz Martin RN Position: [facility] RN Member Role: Primary Care Nurse Name: Ambreen Mcmahon RN Position: [facility] RN Member Role: Primary Care Nurse Name: Irais Grijalva RN Position: [facility] RN Member Role: Primary Care Nurse Name: Autumn Martinez RN Position: [facility] SN RN Member Role: Primary Care Nurse Name: Concha Mckinley RN Position: [facility] RN Member Role: Primary Care Nurse Name: Liz English RN Position: [facility] RN Member Role: Primary Care Nurse Name: Dora Williamson RN Position: [facility] RN Member Role: Primary Care Nurse Care Team Related Persons Name: KHUSHI CUNNINGHAM Address: home [address] [place] [address] Name: BHUPINDER VENEGAS Address: home [address] [place] [address] Name: FELIPE FLORES Address: home [address] [place] [address] Name: ARNAV FLORES Address: home [address] [place] [address] Name: IRINA FLORES Address: home [address] [place] [address] Name: RUSLAN FLORES Address: home [address] [place] [address] Name: KAISER PLUNKETT Address: home [address] [place] [address]
--- OUTSIDE RECORDS SUMMARY | 2022-08-17 08:33 | XMS_ITS | Continuity of Care Document ---
Author Name Unknown Organization [facility] Address [address] [place] [address]- Care Team Providers Care Engineering Project Manager Name Role Phone Eran Sue JOHNSON Primary Care Physician [phone] [place] [facility] [place] 04/19/20 [facility] [address] [place] [address]- Attending Physician: Konrad Curtis Admitting Physician: Admtr, Ar8 Referring Physician: Admtr, Ar8 Allergies, Adverse Reactions, [...] toxoids (Td) 08/03/05 Given 1Result Comment: [12/07/2017] [address]-35 2Result Comment: [12/21/2016] [facility]: 17187-440-20 3Result Comment: [06/10/2015] #3 4Admin Note: per [...] 0 Refills, Maintenance, 07/03/19 13:59:00 EDT, Solution, [facility], 160, cm, 05/29/19 13:36:00 EDT, Height, 56.5, kg, 03... Start Date: 07/03/19 Status: Ordered amitriptyline 25 mg oral tablet 25 mg, 1, tablet, By Mouth, Daily at bedtime, # 30 tablet, Refills 5, Tot. Refills 5, Maintenance, 03/18/20 10:49:00 EST, Route to Pharmacy Electronically, [facility], 160.02, cm, 03/18/20 7:48:00 EST, [...] 60 capsule, 5 Refills, Maintenance, 12/26/19 12:06:00EDT, [facility], 160.02, cm, 12/02/19 6:45:00 EDT, [...] 1 Refills, Soft Stop, 11/20/19 11:59:00 EDT, [facility], 160.02, cm, 11/15/19 10:05:00 EDT, [...] 02/25/19 16:55:00 EST, Route to Pharmacy Electronically, [facility], 158, cm, 02/14/19 7:55:00 EST, Height, 61.9, kg, 02/12/19 10:17:00... Start Date: 02/25/19 Status: Ordered montelukast 10 mg oral tablet 10 mg, 1, tablet, By Mouth, Daily in PM, # 90 tablet, Refills 3, Tot. Refills 3, Maintenance, 08/15/19 16:21:00 EDT, Route to Pharmacy Electronically, [facility], 160, cm, 08/15/19 13:45:00 EDT, Height, 56.5, kg, 05/29/19 13:36:00... Start Date: 08/15/19 Status: Ordered ondansetron 4 mg oral tablet, disintegrating 1 tablet = 4 mg, By Mouth, Every 8 hours, PRN as needed for nausea/vomiting, # 9 tablet, 0 Refills,Maintenance, 10/06/19 21:07:00 EDT, DIS Tablet, [facility] Start Date: 10/06/19 Stop Date: 10/09/19 Status: Ordered ProAir HFA 90 mcg/inh inhalation aerosol with adapter 2, puffs, Inhalation, Every 4 hours, PRN, # 8.5 Gm, Refills 2, Tot. Refills 2, Maintenance, 04/29/19 11:32:00 EST, Aerosol, Route to Pharmacy Electronically, NCPDP_[id number], [facility], 160, cm, 04/29/19 10:47:00 EST, Height... Start Date: 04/29/19 Status: Ordered Symbicort 160mcg/4.5mcg Inhaler 2, puffs, Inhalation, 2 times a day, use with spacer chamber, # 1 each, Refills 11, Tot. Refills 11, Maintenance, 07/08/19 13:36:00 EDT, Route to Pharmacy Electronically, NCPDP_[id number], [facility], 160, cm, 07/08/19 13:03:00 ED... Start Date: 07/08/19 Status: Ordered Topamax 50 mg oral tablet See Instructions, take 1 tab in am and 2 tab at bedtime. If AM dose causes bad sedation, add to HS dose., # 90 tablet, 6 Refills, Maintenance, 03/12/20 11:09:00 EST, Tablet, [facility], weaning zonegran off by 25mg [...] 6 Refills, Soft Stop, 03/12/20 11:04:00 EST, [facility], Partial fill upon patient request if the prescription is for a schedule II opioid drug., 160.02, cm, 03/10/20 8:18:00 EST, H... Start Date: 03/12/20 Stop Date: 10/08/20 Status: Ordered Zofran 4 mg oral tablet 1 tablet = 4 mg, By Mouth, Every 8 hours, PRN Nausea & Vomiting, # 30 tablet, 0 Refills, Maintenance, 09/30/19 11:23:00 EDT, [facility], 160.02, cm, 09/24/19 15:31:00 EDT, [...] perst 3folowed by mental health;recent hospitalization 4gyn 89422 6testing negative insulinoma 7likley dumping sydrome 8abnormal GTT ;sugar 36 two hours into test 9sees gi 10normal CT brain 11new 125.3 cm,right per ct scan recent;seeing gynecology soon;they will review 13vit d deficiency;correct 614531 15per endocrinology monitor 16correction refer GTT; 2 hour glucose 36 17refer GGT 18seeing ortho;pre op 19asma,ama neg/cerulopalsmain wnl,AAT wnl 20Negative hep A antibody positive hep B surface antibody negative antigen negative hep C, normal ferritin 21ukltrasound Social History Social History Type Response Smoking Status Never smoker entered on: 02/20/13 Sex
--- OUTSIDE RECORDS SUMMARY | 2022-08-17 08:33 | XMS_ITS | Continuity of Care Document ---
Author Name Unknown Organization [facility] Nikita Oswaldo Address [address] [place] [address]- Care Team Providers Care Machine Burrer Name Role Phone Eran POST OFFICE CLERK, Sue Dahl Primary Care Physician Encounter [facility] Date(s): 02/25/22 - 03/27/22 [facility] [address] [place] [address]- Allergies, Adverse Reactions, Alerts Substance Reaction Severity Status Dust Allergy to pollen Active Pollen seasonal allergies respiratory symptoms Active Incruse Ellipta 1 lightheaded and migraine Active 1dizzy Immunizations Given and Recorded Vaccine Date Status Refusal Reason [id number] 12y+ bivalent booster vax 1 12/24/21 Given [...] vaccine, inactivated 02/08/11 Give n SARS-CoV-2 mRNA (nlngazo-qbvv-rcumt) vax 05/01/21 Recorded zoster vaccine, inactivated 11/03/20 [...] tetanus-diphtheria toxoids (Td) 08/03/05 Given 1Result Comment: [address]-3 2Result Comment: 40230-243-53 3Result Comment: [12/07/2017] [address]-24 4Result Comment: [12/21/2016] [facility]: 44110-727-16 5Result Comment: [06/10/2015] #3 6Admin Note: per [...] Gm, 5 Refills, Maintenance, 03/09/22 11:21:00 EST, [facility], 17, INHALE TWO PUFFS [...] 2 Refills, Soft Stop, 03/17/22 8:08:00 EST, [facility], requesting 3 month supply [...] 6 Refills, Maintenance, 01/31/22 14:05:00 EST, Suspension, [facility], Partial fill upon [...] 03/24/22 14:12:00 EST, Route to Pharmacy Electronically, [facility], Partial fill upon p... Start [...] 11/23/21 19:57:00 EDT, Route to Pharmacy Electronically, NCPDP_[id number], [facility], 158, cm, 11/03/21 [...] Active Vitamin D deficiency Confirmed Active 1gyn 07441 3testing negative insulinoma 4likley dumping sydrome 5abnormal GTT ;sugar 36 two hours into test 6normal CT brain 7new 8resolved after weight loss 9chronic perst 105.3 cm,right per ct scan recent;seeing gynecology soon;they will review 11vit d deficiency;correct 594919 13per endocrinology monitor 14correction refer GTT; 2 hour glucose 36 15refer GGT 16seeing ortho;pre op 17asma,ama neg/cerulopalsmain wnl,AAT wnl 18Negative hep A antibody positive hep B surface antibody negative antigen negative hep C, normal ferritin 19ukltrasound Social History Social History Type Response Smoking Status Never smoker entered on: 02/20/13 Sex Patient Care team information Care Team Personnel Name: Caitlyn Mcgee RN Position: [facility] RN Member Role: Primary Care Nurse Name: Sue Barillas NP Position: [facility] PCO Associate Professional Member Role: PCP Address: Address: [address] [place] [address] [address] Name: Andria Guadalupe RN Position: [facility] SN RN Member Role: Primary Care Nurse Name: Liz Martin RN Position: [facility] RN Member Role: Primary Care Nurse Name: Ambreen Mcmahon RN Position: [facility] RN Member Role: Primary Care Nurse Name: Irais Grijalva RN Position: [facility] RN Member Role: Primary Care Nurse Name: Autumn Martinez RN Position: [facility] SN RN Member Role: Primary Care Nurse Name: Concha Mckinley RN Position: [facility] RN Member Role: Primary Care Nurse Name: Liz English RN Position: [facility] RN Member Role: Primary Care Nurse Name: Dora Williamson RN Position: [facility] RN Member Role: Primary Care Nurse Care Team Related Persons Name: KHUSHI CUNNINGHAM Address: home [address] [place] [address] Name: BHUPINDER VENEGAS Address: [address] [place] [address] Name: FELIPE FLORES Address: home [address] [place] [address] Name: ARNAV FLORES Address: home [address] [place] [address] Name: IRINA FLORES Address: home [address] [place], [place] Name: RUSLAN FLROES Address: home [address] [facility] [place] [address] Name: KAISER PLUNKETT Address: home [address] [place] [address]
--- OUTSIDE RECORDS SUMMARY | 2022-08-17 08:33 | XMS_ITS | Continuity of Care Document ---
Author Name Unknown Organization [facility] Address [address] [place] [address]- Care Team Providers Care Hand Molder And Caster Name Role Phone Eran Sue JOHNSON Primary Care Physician [phone] Encounter [facility] [place] Date(s): 05/10/22 - 06/29/22 [facility] [address] [place] [address]- Attending Physician: Sarah Chan DO Admitting Physician: Sarah Chan DO Referring Physician: Abby LANDRUM, Yulisa Allergies, Adverse Reactions, Alerts Substance Reaction Severity Status Dust Allergy to pollen Active Pollen seasonal allergies respiratory symptoms Active Incruse Ellipta 1 lightheaded and migraine Active 1dizzy Immunizations Given and Recorded Vaccine Date Status Refusal Reason [id number] 12y+ bivalent booster vax 1 12/24/21 Given [...] vaccine, inactivated 02/08/11 Give n SARS-CoV-2 mRNA (zutvmjl-cawt-qwbtl) vax 05/01/21 Recorded zoster vaccine, inactivated 11/03/20 [...] tetanus-diphtheria toxoids (Td) 08/03/05 Given 1Result Comment: [address]-9 2Result Comment: 80844-795-64 3Result Comment: [12/07/2017] [address]-12 4Result Comment: [12/21/2016] [facility]: 14273-338-48 5Result Comment: [06/10/2015] #3 6Admin Note: per pt 7Admin Note: given in clinic Medications acetaminophen 500 mg oral tablet 2 tablet = 1,000 mg, By Mouth, Every 6 hours, PRN as needed for fever, # 200 tablet, 0 Refills, Maintenance, 12/03/21 10:17:00 EDT, Tablet, [facility], Partial fill upon patient request if the prescription is for a schedule II opi... Start Date: 12/03/21 Status: Ordered Albuterol (Eqv-ProAir HFA) 90 mcg/inh inhalation aerosol 2 puffs, Inhalation, Every 4 hours, PRN NEEDED FOR WHEEZING, # 8.5 Gm, 5 Refills, Maintenance, 03/09/22 11:21:00 EST, [facility], 17, INHALE TWO PUFFS BY MOUTH [...] Maintenance, 11/03/21 8:23:00 EDT, Tablet, [facility], 2 tablet By Mouth 2 times a day, 158, cm, 11/03/21 8:01:00 EDT,Height, 71.5, kg, 09/01/21 16:21:00 EDT, Dry Weight Start Date: 11/03/21 Status: Ordered Carafate 1 gm/10 ml oral suspension 10 mL = 1 Gm, By Mouth, 3 times a day before meals and bedtime, # 1,200 mL, 5 Refills, Maintenance,04/29/22 9:16:00 EST, [id number], Partial fill upon patient request if the prescription is for a schedule II opioid drug., 158, cm, 02... Start Date: 04/29/22 Status: Ordered cetirizine 10 mg oral tablet 1 tablet, By Mouth, Daily, # 30 tablet, 5 Refills, Maintenance, 06/03/22 11:40:00 EDT, [facility], 158, cm, 05/25/22 13:59:00 EDT, Height, [...] 05/30/22 7:57:00 EDT, CR Capsule, [facility], Partial fill upon patient request if the prescription is for a schedule II opioid... Start Date: 05/30/22 Status: Ordered Emgality Prefilled Pen 120 mg/mL subcutaneous solution = 120 mg, Subcutaneous Injection, Once, Maintenance Dose, # 3 kit, 2 Refills, Soft Stop, 03/17/22 8:08:00 EST, [facility], requesting 3 month supply for cheaper martinez. with 2 refills, 163, cm, 03/15/22 10:13:00 EST, Height, 68.1,... Start Date: 03/17/22 Status: Ordered EPINEPHrine 1 mg/mL injectable solution 0.3 mL = 0.3 mg, Intramuscular, Once, # 1 mL, 1 Refills, Soft Stop, 03/08/21 15:07:00 EST, Solution, [facility], Partial fill upon patient request if the prescription is for a schedule II opioid drug., 158, cm, 03/08/21 12:18:00 E... Start Date: 03/08/21 Status: Ordered famotidine 40 mg oral tablet 1 tablet = 40 mg, By Mouth, 2 times a day, # 60 tablet, 6 Refills, Maintenance, 01/31/22 14:05:00 EST, Suspension, [facility], Partial fill upon patient request if the prescription is for a schedule II opioid drug., 163, cm, 01/18... Start Date: 01/31/22 Stop Date: 08/29/22 Status: Ordered Fiber Choice 1.5 g oral tablet, chewable 1 tablet = 1.5 Gm, Chew, 3 times a day, # 90 tablet, 0 Refills, Maintenance, 04/09/22 15:16:00 EST,Chew Tablet, [facility] #[id number], Partial fill upon patient request if the [...] Refills, Maintenance, 04/09/22 15:16:00 EST, REC Powder, [facility] #[id number], Partial fill upon patient request if the prescription is for a schedule II opioid drug., 17 Gm... Start Date: 04/09/22 Status: Ordered montelukast 10 mg oral tablet 1, tablet, By Mouth, Daily in PM, # 90 tablet, Refills 1, Tot. Refills 1, Maintenance, 11/14/21 11:28:00 EDT, Route to Pharmacy Electronically, [facility], 158, cm, 11/03/21 8:01:00 EDT, Height, 71.5, kg, 09/01/21 16:21:00 EDT, . Start Date: 11/14/21 Status: Ordered Nurtec ODT 75 mg oral tablet, disintegrating See Instructions, TAKE ONE TABLET DAILY NEEDED FOR migraines, DO NOT EXCEED ONE TABLET IN 24 HOURS, # 8 tablet, 6 Refills, Maintenance, 12/28/21 15:14:00 EDT, [facility], 163,cm, 12/24/21 8:20:00 EDT, Height, 67, [...] each, 0 Refills, Maintenance, 04/06/22 15:29:00 EST, [id number], Partial fi... Start Date: 04/06/22 Status: Ordered Reclast = 5 mg, IV Infusion, Once, 0 Refills, Maintenance, 11/06/20 10:24:00 EDT, administered at [facility] 10/2020 Start Date: 11/06/20 Status: Ordered Stool Softener + Stimulant Laxative 50 mg-8.6 mg oral capsule 1 capsule, By Mouth, Daily in PM, # 60 capsule, 0 Refills, Maintenance, 04/09/22 15:17:00 EST, Capsule, [facility] #[id number], Partial fill upon patient request if the prescription is for a schedule II opioid drug., 1 capsule By Mouth Daily in P... Start Date: 04/09/22 Status: Ordered Symbicort 160mcg/4.5mcg Inhaler 2, puffs, Inhalation, 2 times a day, rinse mouth and throat after use, # 10.2 Gm, Refills 2, Tot. Refills 2, Maintenance, 06/10/22 20:48:00 EDT, Route to Pharmacy Electronically, NCPDP_[id number], [facility], 158, cm, 06/07/22 10:... Start Date: [...] Active Vitamin D deficiency Confirmed Active 1gyn 67587 3testing negative insulinoma 4likley dumping sydrome 5abnormal GTT ;sugar 36 two hours into test 6normal CT brain 7new 8resolved after weight loss 9chronic perst 105.3 cm,right per ct scan recent;seeing gynecology soon;they will review 11vit d deficiency;correct 195273 13per endocrinology monitor 14correction refer GTT; 2 [...] Care Nurse Name: Sue Barillas NP Position: [facility] PCO Associate Professional Member Role: PCP Address: Address: [address] [place] [address]- Name: Andria Guadalupe RN Position: [facility] SN RN Member Role: Primary Care Nurse Name: Liz Martin RN Position: [facility] RN Member Role: Primary Care Nurse Name: Ambreen Mcmahon RN Position: [facility] RN Member Role: Primary Care Nurse Name: Irais Grijalva RN Position: [facility] RN Member Role: Primary Care Nurse Name: Autumn Martinez RN Position: [facility] SN RN Member Role: Primary Care Nurse Name: Liz English RN Position: [facility] RN Member Role: Primary Care Nurse Name: Dora Williamson RN Position: [facility] RN Member Role: Primary Care Nurse Care Team Related Persons Name: KHUSHI CUNNINGHAM Address: home [address] [place] [address] Name: BHUPINDER VENEGAS Address: [address] [place] [address] Name: FELIPE FLORES Address: home [address] [place] [address] Name: ARNAV FLORES Address: home [address] [place] [address] Name: IRINA FLORES Address: home [address] [place] [address] Name: RUSLAN FLORES Address: home [address] [place] [address] Name: KAISER PLUNKETT Address: home [address] [place] [address]
--- OUTSIDE RECORDS SUMMARY | 2022-08-17 08:33 | XMS_ITS | Continuity of Care Document ---
Author Name Unknown Organization [facility] Address [address] [place] [address]- Care Team Providers Care Director Search Marketing Strategies Name Role Phone Louisa LANDRUM, Taras Fuentes Primary Care Physician [phone] Encounter [facility] Date(s): 06/12/20 - 07/12/20 [facility] [address] [place] [id number] Allergies, Adverse Reactions, Alerts Substance Reaction [...] toxoids (Td) 08/03/05 Given 1Result Comment: [12/07/2017] [address]-92 2Result Comment: [12/21/2016] [facility]: 25807-930-97 3Result Comment: [06/10/2015] #3 4Admin Note: per [...] 60 capsule, 5 Refills, Maintenance, 05/07/20 15:54:00EST, [facility], 160.02, cm, 05/01/20 9:18:00 EST, Height, [...] 1 Refills, Soft Stop, 11/20/19 11:59:00 EDT, [facility], 160.02, cm, 11/15/19 10:05:00 EDT, [...] 08/15/19 16:21:00 EDT, Route to Pharmacy Electronically, [facility], 160, cm, 08/15/19 13:45:00 EDT, Height, 56.5, kg, 05/29/19 13:36:00... Start Date: 08/15/19 Status: Ordered ProAir HFA 90 mcg/inh inhalation aerosol with adapter 2, puffs, Inhalation, Every 4 hours, PRN, # 8.5 Gm, Refills 2, Tot. Refills 2, Maintenance, 04/29/19 11:32:00 EST, Aerosol, Route to Pharmacy Electronically, NCPDP_[id number], [facility], 160, cm, 04/29/19 10:47:00 EST, Height... Start Date: 04/29/19 Status: Ordered Topamax 50 mg oral tablet See Instructions, take 1 tab in am and 2 tab at bedtime. If AM dose causes bad sedation, add to HS dose., # 90 tablet, 6 Refills, Maintenance, 03/12/20 11:09:00 EST, Tablet, [facility], weaning zonegran off by 25mg every [...] 6 Refills, Soft Stop, 03/12/20 11:04:00 EST, [facility], Partial fill upon patient request [...] 0 Refills, Maintenance, 06/13/20 14:10:00 EDT, Capsule, [facility],... Start Date: 06/13/20 Status: Ordered Problem [...] 1resolved after weight loss 2chronic perst 3gyn 63998 5testing negative insulinoma 6likley dumping sydrome 7abnormal GTT ;sugar 36 two hours into test 8sees gi 9normal CT brain 10new 115.3 cm,right per ct scan recent;seeing gynecology soon;they will review 12vit d deficiency;correct 579340 14per endocrinology monitor 15correction refer GTT; 2 hour glucose 36 16refer GGT 17seeing ortho;pre op 18asma,ama neg/cerulopalsmain wnl,AAT wnl 19Negative hep A antibody positive hep B surface antibody negative antigen negative hep C, normal ferritin 20ukltrasound Social History Social History Type Response Smoking Status Never smoker entered on: 02/20/13 Sex
--- OUTSIDE RECORDS SUMMARY | 2022-08-17 08:33 | XMS_ITS | Continuity of Care Document ---
Author Name Unknown Organization [facility] Address [address] [place] [address]- Care Team Providers Care City Library Director Name Role Phone Louisa LANDRUM, Taras Fuentes Primary Care Physician Encounter [facility] Date(s): 03/03/21 - 04/02/21 [facility] [address] [place] [address]- [place] Allergies, Adverse Reactions, Alerts Substance Reaction [...] toxoids (Td) 08/03/05 Given 1Result Comment: [12/07/2017] [address]-97 2Result Comment: [12/21/2016] [facility]: [id number] 3Result Comment: [06/10/2015] #3 4Admin Note: per [...] 3 Refills, Soft Stop, 08/28/20 10:36:00 EDT, [facility], Partial [...] 5 Refills, Maintenance, 11/06/20 10:28:00 EDT, Tablet, [facility], Replaces loratidine, 158.02, cm, 11/06/20 10:04:00 EDT, Height,67, kg, 09/11/19 11:20:00 EDT, Dry Weight Start Date: 11/06/20 Status: Ordered cholestyramine 4 gm/5 gm oral powder for reconstitution 1 pack/packet, By Mouth, Daily, # 30 pack/packet, 5 Refills, Maintenance, 03/03/21 16:42:00 EST, REC Powder, [facility], Partial fill [...] 0 Refills, Soft Stop, 03/16/21 16:05:00 EST, [facility], Partial fill upon patient request if the prescription is for a schedule II opioid drug., 158, cm, 03/11/21 9:1... Start Date: 03/16/21 Status: Ordered Emgality Prefilled Pen 120 mg/mL subcutaneous solution = 120 mg, Subcutaneous Injection, Once, Maintenance Dose, # 1 kit, 5 Refills, Soft Stop, 03/16/21 16:05:00 EST, [facility], Partial [...] Date: 12/10/20 Stop Date: 07/08/21 Status: Ordered Long 0.65% nasal spray 2 sprays, Nares, Both, 4 times a day, # 1 each, 0 Refills, Maintenance, 10/30/20 11:34:00 EDT, [facility], Partial [...] 8:26:00 EDT, Aerosol, Route to Pharmacy Electronically, [id number]_[id number], [facility], 158.02, cm, 01/06/21 8:03:00 [...] Gm, Refills 11, Route to Pharmacy Electronically, [id number]_[id number], [facility], 158.02, cm, 11/13/20 [...] mL, 1 Refills, Maintenance, 01/06/21 13:36:00 EDT, [facility], Partialfill upon patient request [...] 1resolved after weight loss 2chronic perst 3gyn 29768 5testing negative insulinoma 6likley dumping sydrome 7abnormal GTT ;sugar 36 two hours into test 8sees gi 9normal CT brain 10new 115.3 cm,right per ct scan recent;seeing gynecology soon;they will review 12vit d deficiency;correct 555925 14per endocrinology monitor 15correction refer GTT; 2 hour glucose 36 16refer GGT 17seeing ortho;pre op 18asma,ama neg/cerulopalsmain wnl,AAT wnl 19Negative hep A antibody positive hep B surface antibody negative antigen negative hep C, normal ferritin 20ukltrasound Social History Social History Type Response Smoking Status Never smoker entered on: 02/20/13 Sex
--- OUTSIDE RECORDS SUMMARY | 2022-08-17 08:34 | XMS_ITS | Continuity of Care Document ---
Author Name Unknown Organization [facility] Address Unknown Care Team Providers Care Payable Representative Name Role Phone Eran Sue JOHNSON Primary Care Physician Encounter [facility] [place] Date(s): 06/29/21 - 07/29/21 [facility] Attending Physician: Konrad Curtis Admitting Physician: Konrad Curtis Referring Physician: Konrad Curtis Allergies, Adverse Reactions, Alerts Substance Reaction Severity Status Dust Allergy to pollen Active Pollen seasonal allergies respiratory symptoms Active Incruse Ellipta 1 lightheaded and migraine Active 1dizzy Immunizations Given and Recorded Vaccine Date Status Refusal Reason SARS-CoV-2 mRNA (ntzksjd-pltl-msvat) vax 05/01/21 Recorded influenza virus vaccine, inactivated [...] toxoids (Td) 08/03/05 Given 1Result Comment: [12/07/2017] [address]-20 2Result Comment: [12/21/2016] [facility]: [id number] 3Result Comment: [06/10/2015] #3 4Admin Note: per [...] Refills, Maintenance, 02/03/21 8:34:00 EST, Tablet, [facility], Partial fill upon patient request if the prescript... Start Date: 02/03/21 Status: Ordered acarbose 50 mg oral tablet 1 tablet = 50 mg, By Mouth, 3 times a day, Take 1 tab (plus 1 25mg tab), 3 times daily with meals.,# 270 tablet, 3 Refills, Maintenance, 02/03/21 8:34:00 EST, Tablet, [facility], Partial fill upon patient request if the prescript... Start Date: 02/03/21 Status: Ordered Baqsimi One Pack 3 mg nasal powder See Instructions, 3 mg Once intrasnasally for severe hypoglycemia, # 2 each, 3 Refills, Soft Stop, 08/28/20 10:36:00 EDT, [facility], Partial fill upon [...] Maintenance, 03/03/21 16:42:00 EST, REC Powder, [facility], Partial fill upon [...] 30 mL, 1 Refills, 06/28/21 13:52:00 EDT, [facility], 158albertina, 05/24/21 16:05:00 EDT, Height, 80.6, kg, 03/08/21 12:18... Start Date: 06/28/21 Status: Ordered Dexilant 60 mg oral delayed release capsule 1 capsule = 60 mg, By Mouth, 2 times a day, 30 min before meal, # 60 capsule, 5 Refills, Maintenance, 04/16/21 14:29:00 EST, CR Capsule, [facility], Partial fill upon patient request if the prescription is for a schedule II opioi... Start Date: 04/16/21 Status: Ordered Emgality Prefilled Pen 120 mg/mL subcutaneous solution = 120 mg, Subcutaneous Injection, Once, Maintenance Dose, # 1 kit, 6 Refills, Soft Stop, 06/29/21 10:09:00 EDT, [facility], Partial fill upon patient request if the prescription is for a schedule II opioid drug., 158 cm, 06/29/21... Start Date: 06/29/21 Status: Ordered Emgality Prefilled Pen 120 mg/mL subcutaneous solution = 240 mg, Subcutaneous Injection, Once, Loading Dose, # 2 kit, 0 Refills, Soft Stop, 03/16/21 16:05:00 EST, [facility], Partial fill upon patient request if the prescription is for a schedule II opioid drug., 158, cm, 03/11/21 9:1... Start Date: 03/16/21 Status: Ordered EPINEPHrine 1 mg/mL injectable solution 0.3 mL = 0.3 mg, Intramuscular, Once, # 1 mL, 1 Refills, Soft Stop, 03/08/21 15:07:00 EST, Solution, [facility], Partial fill upon [...] Refills, Maintenance, 04/06/21 9:45:00 EST, Solution, [facility], Partial fill upon patient request if the prescription is for a schedule II opioid drug.... Start Date: 04/06/21 Status: Ordered loratadine 10 mg oral tablet 10 mg, 1, tablet, By Mouth, Daily, # 90 tablet, Refills 0, Tot. Refills 0, Maintenance, 05/24/21 11:12:00 EDT, Route to Pharmacy Electronically, [facility], 158, cm, 05/14/21 7:52:00 EST, Height, 80.6, kg, 03/08/21 12:18:00 EST, D... Start Date: 05/24/21 Status: Ordered meclizine 25 mg oral tablet See Instructions, PRN for dizziness, Take 1 tablet every 8 hours as needed for dizziness, # 15 tablet, 0 Refills, Maintenance, 11/03/20 7:49:00 EDT, Tablet, [facility], Partial fill upon patient request if the prescription is for... Start Date: 11/03/20 Status: Ordered montelukast 10 mg oral tablet 10 mg, 1, tablet, By Mouth, Daily in PM, # 90 tablet, Refills 1, Tot. Refills 1, Maintenance, 04/23/21 12:32:00 EST, Route to Pharmacy Electronically, [facility], 158, cm, 04/09/21 8:13:00 [...] Refills, Maintenance, 12/10/20 12:36:00 EDT,DIS Tablet, [facility], has t... Start Date: 12/10/20 Stop Date: 07/08/21 Status: Ordered Calloway 0.65% nasal spray 2 sprays, Nares, Both, 4 times a day, # 1 each, 3 Refills, Maintenance, 05/14/21 11:40:00 EST, [facility], Partial fill [...] 19:25:00 EST, Aerosol, Route to Pharmacy Electronically, NCPDP_[id number], [facility], 158, cm, 05/06/21 6:58:00 EST, Height, 80.... Start Date: 05/13/21 Status: Ordered Reclast = 5 mg, IV Infusion, Once, 0 Refills, Maintenance, 11/06/20 10:24:00 EDT, administered at [facility] 10/2020 Start Date: 11/06/20 Status: [...] Gm, Refills 11, Route to Pharmacy Electronically, NCPDP_[id number], [facility], 158.02, cm, 11/13/20 8:38:00 [...] 1resolved after weight loss 2chronic perst 3gyn 83593 5testing negative insulinoma 6likley dumping sydrome 7abnormal GTT ;sugar 36 two hours into test 8sees gi 9normal CT brain 10new 115.3 cm,right per ct scan recent;seeing gynecology soon;they will review 12vit d deficiency;correct 557824 14per endocrinology monitor 15correction refer GTT; 2 hour glucose 36 16refer GGT 17seeing ortho;pre op 18asma,ama neg/cerulopalsmain wnl,AAT wnl 19Negative hep A antibody positive hep B surface antibody negative antigen negative hep C, normal ferritin 20ukltrasound Social History Social History Type Response Smoking Status Never smoker entered on: 02/20/13 Sex
--- OUTSIDE RECORDS SUMMARY | 2022-08-17 08:34 | XMS_ITS | Continuity of Care Document ---
Author Name Unknown Organization [facility] Address [address] [place] [address]- Care Team Providers Care Welder/Installer Name Role Phone Erna INDUSTRIAL RELATIONS OFFICER, Sue Dahl Primary Care Physician [phone] Encounter [facility] Date(s): 05/24/21 - 06/23/21 [facility] [address] [place] [address]- Allergies, Adverse Reactions, Alerts Substance Reaction Severity Status Dust Allergy to pollen Active Pollen seasonal allergies respiratory symptoms Active Incruse Ellipta 1 lightheaded and migraine Active 1dizzy Immunizations Given and Recorded Vaccine Date Status Refusal Reason SARS-CoV-2 mRNA (alialcl-ehji-xthhe) vax 05/01/21 Recorded influenza virus vaccine, inactivated [...] toxoids (Td) 08/03/05 Given 1Result Comment: [12/07/2017] [address]-90 2Result Comment: [12/21/2016] [facility]: 54290-151-51 3Result Comment: [06/10/2015] #3 4Admin Note: per [...] Date: 12/10/20 Stop Date: 07/08/21 Status: Ordered Letcher 0.65% nasal spray 2 sprays, Nares, Both, [...] 19:25:00 EST, Aerosol, Route to Pharmacy Electronically, NCPDP_[id number], [facility], 158, cm, [...] Gm, Refills 11, Route to Pharmacy Electronically, NCPDP_[id number], [facility], 158.02, cm, [...] 1resolved after weight loss 2chronic perst 3gyn 01753 5testing negative insulinoma 6likley dumping sydrome 7abnormal GTT ;sugar 36 two hours into test 8sees gi 9normal CT brain 10new 115.3 cm,right per ct scan recent;seeing gynecology soon;they will review 12vit d deficiency;correct 558502 14per endocrinology monitor 15correction refer GTT; 2 hour glucose 36 16refer GGT 17seeing ortho;pre op 18asma,ama neg/cerulopalsmain wnl,AAT wnl 19Negative hep A antibody positive hep B surface antibody negative antigen negative hep C, normal ferritin 20ukltrasound Social History Social History Type Response Smoking Status Never smoker entered on: 02/20/13 Sex
--- OUTSIDE RECORDS SUMMARY | 2022-08-17 08:34 | XMS_ITS | Continuity of Care Document ---
Author Name Unknown Organization [facility] Address [address] [place] [address]- Care Team Providers Care Flight Operations Manager Name Role Phone Louisa LANDRUM, Taras Fuentes Primary Care Physician [phone] Encounter [facility] Date(s): 03/08/21 - 03/08/[address] [address]- Discharge Disposition: A-D/C Home Attending Physician: Watson Coy MD Admitting Physician: Watson Coy MD Referring Physician: Not on Staff, Referring [...] toxoids (Td) 08/03/05 Given 1Result Comment: [12/07/2017] [address]-50 2Result Comment: [12/21/2016] [facility]: 27517-706-94 3Result Comment: [06/10/2015] #3 4Admin Note: per [...] Refills, Maintenance, 03/03/21 16:42:00 EST, REC Powder, [facility], Partial fill [...] opioid drug. Start Date: 01/15/21 Status: Ordered EPINEPHrine 1 mg/mL injectable solution 0.3 mL = 0.3 mg, Intramuscular, Once, # 1 mL, 1 Refills, Soft Stop, 03/08/21 15:07:00 EST, Solution, [facility], Partial fill [...] glucose up to 3x a day. E11., 11/17/20 17:16:00 EDT, Supply, 158.02, cm, 11/13/20 [...] Date: 12/10/20 Stop Date: 07/08/21 Status: Ordered Person 0.65% nasal spray 2 sprays, Nares, Both, [...] 8:26:00 EDT, Aerosol, Route to Pharmacy Electronically, NCPDP_[id number], [facility], 158.02, cm, 01/06/21 8:03:00 EDT, Height, 6... Start Date: 01/06/21 Status: Ordered Reclast = 5 mg, IV Infusion, Once, 0 Refills, Maintenance, 11/06/20 10:24:00 EDT, administered at [facility] 10/2020 Start Date: 11/06/20 Status: [...] Gm, Refills 11, Route to Pharmacy Electronically, NCPDP_[id number], [facility], 158.02, cm, [...] 1resolved after weight loss 2chronic perst 3gyn 59753 5testing negative insulinoma 6likley dumping sydrome 7abnormal GTT ;sugar 36 two hours into test 8sees gi 9normal CT brain 10new 115.3 cm,right per ct scan recent;seeing gynecology soon;they will review 12vit d deficiency;correct [id number] 14per endocrinology monitor 15correction refer GTT; 2 hour glucose 36 16refer GGT 17seeing ortho;pre op 18asma,ama neg/cerulopalsmain wnl,AAT wnl 19Negative hep A antibody positive hep B surface antibody negative antigen negative hep C, normal ferritin 20ukltrasound Results Orders for Microbiology Reports Name Date Group A Strep Screen and Culture 03/08/21 Microbiology Reports TEST:Group A Strep Screen and Culture STATUS:Unauthenticated BODY SITE: SOURCE:THROAT COLLECTED DATE/TIME:03/08/21 12:25 PM Group A Strep Screen and Culture SPECIMEN DESCRIPTION : THROAT SWAB SPECIAL REQUESTS : NONE DIRECT EXAM : RAPID GROUP A RESULT IS NEGATIVE, REFER TO CULTURE RESULT. REPORT STATUS : PRELIMINARY REPORT Vital Signs Most recent to oldest [Reference Range]: 1 Height 158 cm (03/08/21 12:18 PM) Weight 80.6 kg (03/08/21 12:18 PM) Dry Weight 80.6 kg (03/08/21 12:18 PM) Weight Obtained Via Standing scale (03/08/21 12:18 PM) Social History Social History Type Response Smoking Status Never smoker entered on: 02/20/13 Sex
--- OUTSIDE RECORDS SUMMARY | 2022-08-17 08:34 | XMS_ITS | Continuity of Care Document ---
Author Name Unknown Organization [facility] Address [address] [place] [address]- Care Team Providers Care Backfiller Name Role Phone Eran Sue JOHNSON Primary Care Physician [phone] Encounter [facility] Date(s): 09/08/21 - 10/08/21 [facility] [address] [place] [address]- [place] Allergies, Adverse Reactions, Alerts Substance Reaction Severity Status Dust Allergy to pollen Active Pollen seasonal allergies respiratory symptoms Active Incruse Ellipta 1 lightheaded and migraine Active 1dizzy Immunizations Given and Recorded Vaccine Date Status Refusal Reason SARS-CoV-2 mRNA (nhvbvdb-jqub-ovnqh) vax 05/01/21 Recorded influenza virus vaccine, inactivated [...] toxoids (Td) 08/03/05 Given 1Result Comment: [12/07/2017] [address]-15 2Result Comment: [12/21/2016] [facility]: 16735-037-95 3Result Comment: [06/10/2015] #3 4Admin Note: per pt 5Admin Note: given in clinic Medications acarbose 25 mg oral tablet 1 tablet = 25 mg, By Mouth, 3 times a day, Take 1 tab (plus 1 50mg tab), 3 times daily with meals.,# 270 tablet, 3 Refills, Maintenance, 02/03/21 8:34:00 EST, Tablet, [facility], Partial fill upon patient request if the prescript... Start Date: 02/03/21 Status: Ordered acarbose 50 mg oral tablet 1 tablet = 50 mg, By Mouth, 3 times a day, Take 1 tab (plus 1 25mg tab), 3 times daily with meals.,# 270 tablet, 3 Refills, Maintenance, 02/03/21 8:34:00 EST, Tablet, [facility], Partial fill [...] 08/23/21 8:22:00 EDT, Route to Pharmacy Electronically,[facility], Partial fill upon patient... Start Date: 08/23/21 Status: Ordered Dexilant 60 mg oral delayed release capsule 1 capsule = 60 mg, By Mouth, 2 times a day, 30 min before meal, # 60 capsule, 5 Refills, Maintenance, 04/16/21 14:29:00 EST, CR Capsule, [facility], Partial fill upon patient request if the prescription is for a schedule II opioi... Start Date: 04/16/21 Status: Ordered Emgality Prefilled Pen 120 mg/mL subcutaneous solution = 120 mg, Subcutaneous Injection, Once, Maintenance Dose, # 1 kit, 6 Refills, Soft Stop, 06/29/21 10:09:00 EDT, [facility], Partial fill upon patient request if the prescription is for a schedule II opioid drug., 158, cm, 06/29/21... Start Date: 06/29/21 Status: Ordered EPINEPHrine 1 mg/mL injectable solution 0.3 mL = 0.3 mg, Intramuscular, Once, # 1 mL, 1 Refills, Soft Stop, 03/08/21 15:07:00 EST, Solution, [facility], Partial fill upon [...] 09/17/21 14:13:00 EDT, Route to Pharmacy Electronically, [facility], 158, cm, 09/16/21 9:43:00 EDT, Height, 71.5, kg, 09/01/21 16:21:00 EDT, D... Start Date: 09/17/21 Status: Ordered meclizine 25 mg oral tablet See Instructions, PRN for dizziness, Take 1 tablet every 8 hours as needed for dizziness, # 15 tablet, 0 Refills, Maintenance, 11/03/20 7:49:00 EDT, Tablet, [facility], Partial fill upon patient request if the prescription is for... Start Date: 11/03/20 Status: Ordered montelukast 10 mg oral tablet 10 mg, 1, tablet, By Mouth, Daily in PM, # 90 tablet, Refills 1, Tot. Refills 1, Maintenance, 04/23/21 12:32:00 EST, Route to Pharmacy Electronically, [facility], 158, cm, 04/09/21 8:13:00 [...] 6 Refills, Maintenance, 12/10/20 12:36:00 EDT,DIS Tablet, [facility], has t... Start Date: [...] 1resolved after weight loss 2chronic perst 3gyn 13001 5testing negative insulinoma 6likley dumping sydrome 7abnormal GTT ;sugar 36 two hours into test 8sees gi 9normal CT brain 10new 115.3 cm,right per ct scan recent;seeing gynecology soon;they will review 12vit d deficiency;correct 600234 14per endocrinology monitor 15correction refer GTT; 2 hour glucose 36 16refer GGT 17seeing ortho;pre op 18asma,ama neg/cerulopalsmain wnl,AAT wnl 19Negative hep A antibody positive hep B surface antibody negative antigen negative hep C, normal ferritin 20ukltrasound Social History Social History Type Response Smoking Status Never smoker entered on: 02/20/13 Sex
--- OUTSIDE RECORDS SUMMARY | 2022-08-17 08:34 | XMS_ITS | Continuity of Care Document ---
Author Name Unknown Organization [facility] Address [address] [place] [address]- Care Team Providers Care Candy Maker Helper Name Role Phone Louisa LANDRUM, Taras Fuentes Primary Care Physician [place] [facility] Date(s): 11/06/20 - 12/06/20 [facility] [address] [place] [address]- Allergies, Adverse Reactions, Alerts Substance Reaction Severity [...] toxoids (Td) 08/03/05 Given 1Result Comment: [12/07/2017] [id number] 2Result Comment: [12/21/2016] [facility]: [id number] 3Result Comment: [06/10/2015] #3 4Admin Note: per [...] 3 Refills, Soft Stop, 08/28/20 10:36:00 EDT, [facility], Partial fill [...] 5 Refills, Maintenance, 11/06/20 10:28:00 EDT, Tablet, [facility], Replaces loratidine, 158.02, cm, 11/06/20 [...] 0 Refills, Maintenance, 11/03/20 7:49:00 EDT, Tablet, [facility], Partial [...] 6 Refills, Maintenance, 11/12/20 10:44:00 EDT,DIS Tablet, [facility], has t... Start Date: 11/12/20 Status: Ordered Burdette 0.65% nasal spray 2 sprays, Nares, Both, 4 times a day, # 1 each, 0 Refills, Maintenance, 10/30/20 11:34:00 EDT, [facility], Partial fill upon patient request if the prescription is for a scheduleII opioid drug., 2 sprays Nares, Both 4 times a day... Start Date: 10/30/20 Status: Ordered pregabalin 75 mg oral capsule 1 capsule = 75 mg, By Mouth, Daily, # 30 capsule, 0 Refills, Maintenance, 08/27/20 9:45:00 EDT, Capsule, [facility], Partial fill upon patient request if the prescription is for a schedule II opioid drug., 158.02, cm, 08/27/20 9:2... Start Date: 08/27/20 Stop Date: 09/26/20 Status: Ordered ProAir HFA 90 mcg/inh inhalation aerosol with adapter 2, puffs, Inhalation, Every 4 hours, PRN, # 8.5 Gm, Refills 2, Tot. Refills 2, Maintenance, 04/29/19 11:32:00 EST, Aerosol, Route to Pharmacy Electronically, NCPDP_[id number], [facility], 160, [...] Gm, Refills 11, Route to Pharmacy Electronically, NCPDP_[id number], [facility], 158.02, cm, 11/13/20 8:38:00 EDT, [...] capsule, 5 Refills, Maintenance, 11/12/20 10:43:00 EDT, [facility], Partial fill [...] 1resolved after weight loss 2chronic perst 3gyn 30487 5testing negative insulinoma 6likley dumping sydrome 7abnormal GTT ;sugar 36 two hours into test 8sees gi 9normal CT brain 10new 115.3 cm,right per ct scan recent;seeing gynecology soon;they will review 12vit d deficiency;correct 447484 14per endocrinology monitor 15correction refer GTT; 2 hour glucose 36 16refer GGT 17seeing ortho;pre op 18asma,ama neg/cerulopalsmain wnl,AAT wnl 19Negative hep A antibody positive hep B surface antibody negative antigen negative hep C, normal ferritin 20ukltrasound Social History Social History Type Response Smoking Status Never smoker entered on: 02/20/13 Sex
--- OUTSIDE RECORDS SUMMARY | 2022-08-17 08:34 | XMS_ITS | Continuity of Care Document ---
Author Name Unknown Organization [facility] Address [address] [place] [address]- Care Team Providers Care Orchard Sprayer Name Role Phone Eran Sue JOHNSON Primary Care Physician [phone] [place] [facility] [place](s): 05/03/21 - 06/02/21 [facility] [address] [place] [address]- [place] Allergies, Adverse Reactions, Alerts Substance Reaction Severity Status Dust Allergy to pollen Active Pollen seasonal allergies respiratory symptoms Active Incruse Ellipta 1 lightheaded and migraine Active 1dizzy Immunizations Given and Recorded Vaccine Date Status Refusal Reason SARS-CoV-2 mRNA (ghfzerk-mjhz-tylpz) vax 05/01/21 Recorded influenza virus vaccine, inactivated [...] toxoids (Td) 08/03/05 Given 1Result Comment: [12/07/2017] [address]-46 2Result Comment: [12/21/2016] [facility]: 51533-287-07 3Result Comment: [06/10/2015] #3 4Admin Note: per [...] 3 Refills, Maintenance, 02/03/21 8:34:00 EST, Tablet, [facility], Partial fill upon patient request if the prescript... Start Date: 02/03/21 Status: Ordered acarbose 50 mg oral tablet 1 tablet = 50 mg, By Mouth, 3 times a day, Take 1 tab (plus 1 25mg tab), 3 times daily with meals.,# 270 tablet, 3 Refills, Maintenance, 02/03/21 8:34:00 EST, Tablet, [facility], Partial fill upon patient request if the prescript... Start Date: 02/03/21 Status: Ordered Baqsimi One Pack 3 mg nasal powder See Instructions, 3 mg Once intrasnasally for severe hypoglycemia, # 2 each, 3 Refills, Soft Stop, 08/28/20 10:36:00 EDT, [facility], Partial fill upon [...] Refills, Maintenance, 03/03/21 16:42:00 EST, REC Powder, [facility], Partial fill upon [...] per PCP, # 30 mL, 1 Refills, [facility], 158, cm, 04/09/21 8:13:00 EST, Height, 80.6, kg, 03/08/21 12:18:00 EST, Dry Weight Start Date: 04/30/21 Status: Ordered Dexilant 60 mg oral delayed release capsule 1 capsule = 60 mg, By Mouth, 2 times a day, 30 min before meal, # 60 capsule, 5 Refills, Maintenance, 04/16/21 14:29:00 EST, CR Capsule, [facility], Partial fill upon patient request if the prescription is for a schedule II opioi... Start Date: 04/16/21 Status: Ordered Emgality Prefilled Pen 120 mg/mL subcutaneous solution = 240 mg, Subcutaneous Injection, Once, Loading Dose, # 2 kit, 0 Refills, Soft Stop, 03/16/21 16:05:00 EST, [facility], Partial fill upon patient request if the prescription is for a schedule II opioid drug., 158, cm, 03/11/21 9:1... Start Date: 03/16/21 Status: Ordered EPINEPHrine 1 mg/mL injectable solution 0.3 mL = 0.3 mg, Intramuscular, Once, # 1 mL, 1 Refills, Soft Stop, 03/08/21 15:07:00 EST, Solution, [facility], Partial fill upon [...] 1 Refills, Soft Stop, 11/20/19 11:59:00 EDT, [facility], 160.02, cm, 11/15/19 10:05:00 EDT, Height, 67, kg, 09/11/19 11:20:00 EDT, Dry Weight Start Date: 11/20/19 Status: Ordered Lidocaine Viscous 2% solution 5 mL = 0.1 Gm, By Mouth, 4 times a day, PRN for epigastric pain, # 200 mL, 1 Refills, Maintenance, 04/06/21 9:45:00 EST, Solution, [facility], Partial fill upon patient request if the prescription is for a schedule II opioid drug.... Start Date: 04/06/21 Status: Ordered loratadine 10 mg oral tablet 10 mg, 1, tablet, By Mouth, Daily, # 90 tablet, Refills 0, Tot. Refills 0, Maintenance, 05/24/21 11:12:00 EDT, Route to Pharmacy Electronically, [facility], 158, cm, 05/14/21 7:52:00 EST, Height, 80.6, kg, 03/08/21 12:18:00 EST, D... Start Date: 05/24/21 Status: Ordered meclizine 25 mg oral tablet See Instructions, PRN for dizziness, Take 1 tablet every 8 hours as needed for dizziness, # 15 tablet, 0 Refills, Maintenance, 11/03/20 7:49:00 EDT, Tablet, [facility], Partial fill upon patient request if the prescription is for... Start Date: 11/03/20 Status: Ordered montelukast 10 mg oral tablet 10 mg, 1, tablet, By Mouth, Daily in PM, # 90 tablet, Refills 1, Tot. Refills 1, Maintenance, 04/23/21 12:32:00 EST, Route to Pharmacy Electronically, [facility], 158, cm, 04/09/21 [...] 6 Refills, Maintenance, 12/10/20 12:36:00 EDT,DIS Tablet, [facility], has t... Start Date: 12/10/20 Stop Date: 07/08/21 Status: Ordered Prairie 0.65% nasal spray 2 sprays, Nares, Both, 4 times a day, # 1 each, 3 Refills, Maintenance, 05/14/21 11:40:00 EST, [facility], Partial fill upon patient request if the prescription is for a scheduleII opioid drug., 2 sprays Nares, Both 4 times a day... Start Date: 05/14/21 Status: Ordered ProAir HFA 90 mcg/inh inhalation aerosol with adapter 2, puffs, Inhalation, Every 4 hours, PRN, # 8.5 Gm, Refills 1, Tot. Refills 1, Maintenance, 05/13/21 19:25:00 EST, Aerosol, Route to Pharmacy Electronically, NCPDP_[id number], [facility], 158, cm, 05/06/21 6:58:00 EST, Height, 80.... Start Date: 05/13/21 Status: Ordered Reclast = 5 mg, IV Infusion, Once, 0 Refills, Maintenance, 11/06/20 10:24:00 EDT, administered at [facility] 10/2020 Start Date: 11/06/20 Status: [...] Gm, Refills 11, Route to Pharmacy Electronically, NCPDP_[id number], [facility], 158.02, cm, 11/13/20 [...] 1resolved after weight loss 2chronic perst 3gyn 01377 5testing negative insulinoma 6likley dumping sydrome 7abnormal GTT ;sugar 36 two hours into test 8sees gi 9normal CT brain 10new 115.3 cm,right per ct scan recent;seeing gynecology soon;they will review 12vit d deficiency;correct 097520 14per endocrinology monitor 15correction refer GTT; 2 hour glucose 36 16refer GGT 17seeing ortho;pre op 18asma,ama neg/cerulopalsmain wnl,AAT wnl 19Negative hep A antibody positive hep B surface antibody negative antigen negative hep C, normal ferritin 20ukltrasound Social History Social History Type Response Smoking Status Never smoker entered on: 02/20/13 Sex
--- OUTSIDE RECORDS SUMMARY | 2022-08-17 08:34 | XMS_ITS | Continuity of Care Document ---
Author Name Unknown Organization [facility] Address [address] [place] [address]- Care Team Providers Care Journeyman Machinist Name Role Phone Eran Sue JOHNSON Primary Care Physician Encounter [facility] Date(s): 12/08/21 - 01/07/22 [facility] [address] [place] [address]- [place] Allergies, Adverse Reactions, Alerts Substance Reaction Severity Status Dust Allergy to pollen Active Pollen seasonal allergies respiratory symptoms Active Incruse Ellipta 1 lightheaded and migraine Active 1dizzy Immunizations Given and Recorded Vaccine Date Status Refusal Reason [id number] 12y+ bivalent booster vax 1 12/24/21 Given [...] vaccine, inactivated 02/08/11 Give n SARS-CoV-2 mRNA ([id number]-akbk-pcquf) vax 05/01/21 Recorded zoster vaccine, inactivated 11/03/20 [...] tetanus-diphtheria toxoids (Td) 08/03/05 Given 1Result Comment: [id number] 2Result Comment: 00352-264-37 3Result Comment: [12/07/2017] [address]-96 4Result Comment: [12/21/2016] [facility]: 96320-373-67 5Result Comment: [06/10/2015] #3 6Admin Note: per [...] 11/23/21 19:57:00 EDT, Route to Pharmacy Electronically, NCPDP_[id number], [facility], 158, cm, 11/03/21 [...] Active Vitamin D deficiency Confirmed Active 1gyn 54205 3testing negative insulinoma 4likley dumping sydrome 5abnormal GTT ;sugar 36 two hours into test 6sees gi 7normal CT brain 8new 9resolved after weight loss 10chronic perst 115.3 cm,right per ct scan recent;seeing gynecology soon;they will review 12vit d deficiency;correct 699707 14per endocrinology monitor 15correction refer GTT; 2 hour glucose 36 16refer GGT 17seeing ortho;pre op 18asma,ama neg/cerulopalsmain wnl,AAT wnl 19Negative hep A antibody positive hep B surface antibody negative antigen negative hep C, normal ferritin 20ukltrasound Social History Social History Type Response Smoking Status Never smoker entered on: 02/20/13 Sex Patient Care team information Personnel Name: Sue Barillas NP Address: Address: [address] [place] [id number]
--- OUTSIDE RECORDS SUMMARY | 2022-08-17 08:34 | XMS_ITS | Continuity of Care Document ---
Author Name Unknown Organization [facility] Address [address] [place] [address]- Care Team Providers Care Oil And Gas Field Technician Name Role Phone Eran HANDBAG PARTS CUTTER, Sue Dahl Primary Care Physician Encounter [facility] [place] Date(s): 02/03/22 - 03/05/22 [facility] [address] [place] [address]- Attending Physician: Not on Staff, Attending MD Allergies, Adverse Reactions, Alerts Substance Reaction Severity Status Dust Allergy to pollen Active Pollen seasonal allergies respiratory symptoms Active Incruse Ellipta 1 lightheaded and migraine Active 1dizzy Immunizations Given and Recorded Vaccine Date Status Refusal Reason [id number] 12y+ bivalent booster vax 1 12/24/21 Given [...] vaccine, inactivated 02/08/11 Give n SARS-CoV-2 mRNA (rukpbok-jbca-lbkpd) vax 05/01/21 Recorded zoster vaccine, inactivated 11/03/20 [...] tetanus-diphtheria toxoids (Td) 08/03/05 Given 1Result Comment: [address]-7 2Result Comment: 48958-863-37 3Result Comment: [12/07/2017] [address]-85 4Result Comment: [12/21/2016] [facility]: 13893-072-45 5Result Comment: [06/10/2015] #3 6Admin Note: per pt 7Admin Note: given in clinic Medications acarbose 25 mg oral tablet See Instructions, 1 tablet with 50 mg (total 75 mg) By Mouth before lunch, # 30 each, 11 Refills, Maintenance, 11/03/21 8:24:00 EDT, Tablet, [facility], 158, cm, 11/03/21 8:01:00EDT, Height, 71.5, kg, 09/01/21 16:21:00 EDT, Dry W... Start Date: 11/03/21 Status: Ordered acetaminophen 500 mg oral tablet 2 tablet = 1,000 mg, By Mouth, Every 6 hours, PRN as needed for fever, # 200 tablet, 0 Refills, Maintenance, 12/03/21 10:17:00 EDT, Tablet, [facility], Partial fill upon patient request if the prescription is for a schedule II opi... Start Date: 12/03/21 Status: Ordered Albuterol (Eqv-ProAir HFA) 90 mcg/inh inhalation aerosol 2 puffs, Inhalation, Every 4 hours, PRN NEEDED FOR WHEEZING, # 8.5 Gm, 1 Refills, Maintenance, 12/03/21 14:16:00 EDT, [facility], 18, INHALE TWO PUFFS EVERY 4 HOURS NEEDED FOR WHEEZING, 163, cm, 12/03/21 9:39:00 EDT, Height,... Start Date: 12/03/21 Status: Ordered calcium (as citrate)-vitamin D 315 mg-250 intl units oral tablet 2 tablet, By Mouth, 2 times a day, # 120 tablet, 6 Refills, Maintenance, 11/03/21 8:23:00 EDT, Tablet, [facility], 2 tablet By Mouth [...] Refills, Maintenance, 11/22/21 9:49:00 EDT, CR Capsule, [facility], Partial fill upon patient request if the prescription is for a schedule II opioid... Start Date: 11/22/21 Status: Ordered Emgality Prefilled Pen 120 mg/mL subcutaneous solution = 120 mg, Subcutaneous Injection, Once, Maintenance Dose, # 1 kit, 6 Refills, Soft Stop, 02/08/22 9:15:00 EST, [facility], [...] 6 Refills, Maintenance, 01/31/22 14:05:00 EST, Suspension, [facility], Partial [...] 11/14/21 11:28:00 EDT, Route to Pharmacy Electronically, [facility], 158, cm, 11/03/21 8:01:00 EDT, Height, 71.5, kg, 09/01/21 16:21:00 EDT, Start Date: 11/14/21 Status: Ordered Nurtec ODT 75 mg oral tablet, disintegrating See Instructions, TAKE ONE TABLET DAILY NEEDED FOR migraines, DO NOT EXCEED ONE TABLET IN 24 HOURS, # 8 tablet, 6 Refills, Maintenance, 12/28/21 15:14:00 EDT, [facility], 163,cm, 12/24/21 8:20:00 EDT, [...] 11/23/21 19:57:00 EDT, Route to Pharmacy Electronically, NCPDP_[id number], [facility], 158, cm, 11/03/21 8:0... [...] 5 Refills, Maintenance, 12/10/21 9:44:00 EDT, Tablet, [facility] [...] Active Vitamin D deficiency Confirmed Active 1gyn 98182 3testing negative insulinoma 4likley dumping sydrome 5abnormal GTT ;sugar 36 two hours into test 6normal CT brain 7new 8resolved after weight loss 9chronic perst 105.3 cm,right per ct scan recent;seeing gynecology soon;they will review 11vit d deficiency;correct 791691 13per endocrinology monitor 14correction refer GTT; 2 hour glucose 36 15refer GGT 16seeing ortho;pre op 17asma,ama neg/cerulopalsmain wnl,AAT wnl 18Negative hep A antibody positive hep B surface antibody negative antigen negative hep C, normal ferritin 19ukltrasound Social History Social History Type Response Smoking Status Never smoker entered on: 02/20/13 Sex Patient Care team information Care Team Personnel Name: Caitlyn Mcgee RN Position: [facility] RN Member Role: Primary Care Nurse Name: Sue Barillas NP Position: [facility] PCO Associate Professional Member Role: PCP Address: Address: [address] [place] [id number] Name: Andria Guadalupe RN Position: [facility] SN RN Member Role: Primary Care Nurse Name: Liz Martin RN Position: [facility] RN Member Role: Primary Care Nurse Name: Ambreen Mcmahon RN Position: [facility] RN Member Role: Primary Care Nurse Name: Irais Grijalva RN Position: [facility] RN Member Role: Primary Care Nurse Name: Autumn Martinez RN Position: [facility] RN Member Role: Primary Care Nurse Name: Concha Mckinley RN Position: [facility] RN Member Role: Primary Care Nurse Name: Liz English RN Position: [facility] RN Member Role: Primary Care Nurse Name: Dora Williamson RN Position: [facility] RN Member Role: Primary Care Nurse Care Team Related Persons Name: KHUSHI CUNNINGHAM Address: home [address] [place] [address] Name: BHUPINDER VENEGAS Address: home [address] [place] [address] Name: FELIPE FLORES Address: home [address] [place], [place] Name: ARNAV FLORES Address: home [address] [place], [place] Name: IRINA FLORES Address: home [address] [place], [place] Name: RUSLAN FLORES Address: home [address] [place] [address] [place] [id number] Name: KAISER PLUNKETT Address: home [address] [place] [address]
--- OUTSIDE RECORDS SUMMARY | 2022-08-17 08:34 | XMS_ITS | Continuity of Care Document ---
Author Name Unknown Organization [facility] Address [address] [place] [address]- Care Team Providers Care Schedule Analyst Name Role Phone Louisa LANDRUM, Taras Fuentes Primary Care Physician [phone] [place] [facility] [place](s): 10/24/19 - 11/23/19 [facility] [address] [place] [address]- [facility] Attending Physician: Admtr, Ar8 Allergies, Adverse Reactions, [...] toxoids (Td) 08/03/05 Given 1Result Comment: [12/07/2017] [address]-58 2Result Comment: [12/21/2016] [facility]: [id number] 3Result Comment: [06/10/2015] #3 4Admin Note: per [...] 07/07/2012:36:00 EDT, Aerosol, Route to Pharmacy Electronically, NCPDP_[id number], [facility], 160, cm, 07/08/19 13:03:00 EDT, Height, [...] 60 capsule, 5 Refills, Maintenance, 07/30/19 10:21:00EDT, [facility], 160, cm, 07/08/19 13:03:00 EDT, Height, 56.5, kg, 05/29/19 13:36:00 EDT, Dry Weight Start Date: 07/30/19 Status: Ordered eletriptan 40 mg oral tablet 1 tablet = 40 mg, By Mouth, Daily, PRN for migraine headache, # 9 tablet, 5 Refills, Soft Stop, 07/16/19 9:23:00 EDT, Tablet, [facility], she has tried sumatriptan and rizatriptan. [...] Refills, Maintenance, 11/15/19 10:29:00 EDT, REC Powder, [facility], 240 mL By Mouth Every 10 minutes, 160.02, cm, 11/15/19 10:05:00 EDT, Height, 67, kg, 09/11/19 11:20:00 EDT, Dry... Start Date: 11/15/19 Status: Ordered ondansetron 4 mg oral tablet, disintegrating 1 tablet = 4 mg, By Mouth, Every 8 hours, PRN as needed for nausea/vomiting, # 9 tablet, 0 Refills,Maintenance, 10/06/19 21:07:00 EDT, DIS Tablet, [facility] Start Date: 10/06/19 Stop Date: 10/09/19 Status: Ordered ProAir HFA 90 mcg/inh inhalation aerosol with adapter 2, puffs, Inhalation, Every 4 hours, PRN, # 8.5 Gm, Refills 2, Tot. Refills 2, Maintenance, 04/29/19 11:32:00 EST, Aerosol, Route to Pharmacy Electronically, NCPDP_[id number], [facility], 160, [...] 07/08/19 13:36:00 EDT, Route to Pharmacy Electronically, NCPDP_[id number], [facility], 160, cm, 07/08/19 13:03:00 ED... Start Date: 07/08/19 Status: Ordered Topamax 50 mg oral tablet 2 tablet = 100 mg, By Mouth, Daily at bedtime, # 60 tablet, 6 Refills, Maintenance, 11/04/19 11:08:00 EDT, Tablet, [facility], weaning zonegran off by 25mg every 2 days then can start topamax., 160.02, cm, 10/29/19 12:35:00 EDT, H... Start Date: 11/04/19 Stop Date: 06/01/20 Status: Ordered Zofran 4 mg oral tablet 1 tablet = 4 mg, By Mouth, Every 8 hours, PRN Nausea & Vomiting, # 30 tablet, 0 Refills, Maintenance, 09/30/19 11:23:00 EDT, [facility], 160.02, cm, 09/24/19 15:31:00 EDT, Height, [...] shoulder(Confirmed) 18 Active Fatty liver(Confirmed) 19, 20, 10/09/16 Active Vitamin D deficiency(Confirmed) Active 1resolved after weight loss 2chronic perst 3folowed by mental health;recent hospitalization 4gyn [address]296 6testing negative insulinoma 7likley dumping sydrome 8abnormal GTT ;sugar 36 two hours into test 9sees gi 10normal CT brain 11new 125.3 cm,right per ct scan recent;seeing gynecology soon;they will review 13vit d deficiency;correct 961079 15per endocrinology monitor 16correction refer GTT; 2 [...]
--- OUTSIDE RECORDS SUMMARY | 2022-08-17 08:34 | XMS_ITS | Continuity of Care Document ---
Author Name Unknown Organization [facility] Address [address] [place] [address]- Care Team Providers Care Manager Global Name Role Phone Eran Sue JOHNSON Primary Care Physician [phone] Encounter [facility] [place] Date(s): 06/07/22 - 07/07/22 [facility] [address] [place] [address]- [place] Allergies, Adverse Reactions, Alerts Substance Reaction Severity Status Dust Allergy to pollen Active Pollen seasonal allergies respiratory symptoms Active Incruse Ellipta 1 lightheaded and migraine Active 1dizzy Immunizations Given and Recorded Vaccine Date Status Refusal Reason [id number] 12y+ bivalent booster vax 1 12/24/21 Given [...] vaccine, inactivated 02/08/11 Give n SARS-CoV-2 mRNA (ycfbtli-lmpl-kxnrx) vax 05/01/21 Recorded zoster vaccine, inactivated 11/03/20 [...] tetanus-diphtheria toxoids (Td) 08/03/05 Given 1Result Comment: [id number] 2Result Comment: [id number] 3Result Comment: [12/07/2017] [id number] 4Result Comment: [12/21/2016] [facility]: [id number] 5Result Comment: [06/10/2015] #3 6Admin Note: per [...] 1,200 mL, 5 Refills, Maintenance,04/29/22 9:16:00 EST, [id number], Partial fill upon patient request if the prescription is for a schedule II opioid drug., 158, cm, 02... Start Date: 04/29/22 Status: Ordered cetirizine 10 mg oral tablet 1 tablet, By Mouth, Daily, # 30 tablet, 5 Refills, Maintenance, 06/03/22 11:40:00 EDT, [facility], 158, cm, 05/25/22 13:59:00 EDT, [...] Refills, Maintenance, 05/30/22 7:57:00 EDT, CR Capsule, [facility], [...] 0 Refills, Maintenance, 04/09/22 15:16:00 EST,Chew Tablet, [id number], Partial fill upon patient request if the [...] Refills, Maintenance, 04/09/22 15:16:00 EST, REC Powder, [facility][id number], Partial fill upon patient request if the [...] each, 0 Refills, Maintenance, 04/06/22 15:29:00 EST, [facility] #[id number], Partial fi... Start Date: 04/06/22 Status: Ordered Reclast = 5 mg, IV Infusion, Once, 0 Refills, Maintenance, 11/06/20 10:24:00 EDT, administered at [facility] 10/2020 Start Date: 11/06/20 Status: Ordered Stool Softener + Stimulant Laxative 50 mg-8.6 mg oral capsule 1 capsule, By Mouth, Daily in PM, # 60 capsule, 0 Refills, Maintenance, 04/09/22 15:17:00 EST, Capsule, [facility] #[id number], Partial fill upon patient request if the prescription is for a schedule II opioid drug., 1 capsule By Mouth Daily in P... Start Date: 04/09/22 Status: Ordered Symbicort 160mcg/4.5mcg Inhaler 2, puffs, Inhalation, 2 times a day, rinse mouth and throat after use, # 10.2 Gm, Refills 2, Tot. Refills 2, Maintenance, 06/10/22 20:48:00 EDT, Route to Pharmacy Electronically, NCPDP_[id number], [facility], 158, cm, 06/07/22 10:... [...] Active Vitamin D deficiency Confirmed Active 1gyn 01407 3testing negative insulinoma 4likley dumping sydrome 5abnormal GTT ;sugar 36 two hours into test 6normal CT brain 7new 8resolved after weight loss 9chronic perst 105.3 cm,right per ct scan recent;seeing gynecology soon;they will review 11vit d deficiency;correct 475871 13per endocrinology monitor 14correction refer GTT; 2 [...] Care Nurse Name: Sue Barillas NP Position: [facility] PCO Associate Professional Member Role: PCP Address: Address: [address] [place] [id number] Name: Andria Guadalupe RN Position: [facility] SN RN Member Role: Primary Care Nurse Name: Lzi Martin RN Position: [facility] RN Member Role: Primary Care Nurse Name: Ambreen Mcmahon RN Position: [facility] RN Member Role: Primary Care Nurse Name: Irais Grijalva RN Position: [facility] RN Member Role: Primary Care Nurse Name: Autumn Martinez RN Position: [facility] SN RN Member Role: Primary Care Nurse Name: Liz English RN Position: [facility] RN Member Role: Primary Care Nurse Name: Dora Williamson RN Position: [facility] RN Member Role: Primary Care Nurse Care Team Related Persons Name: KHUSHI CUNNINGHAM Address: home [address] [place] [address] Name: BHUPINDER VENEGAS Address: [address] [place] [address] Name: FELIPE FLORES Address: home [address] [place] [address] Name: ARNAV FLORES Address: home [address] [place] [address] Name: IRINA FLORES Address: home [address] [place] [address] Name: RUSLAN FLORES Address: [address] [facility] [address] [place] [address] Name: KAISER PLUNKETT Address: home [address] [place] [address]
--- OUTSIDE RECORDS SUMMARY | 2022-08-17 08:34 | XMS_ITS | Continuity of Care Document ---
Author Name Unknown Organization [facility] Address [address] [place] [address]- Care Team Providers Care Cartography Professor Name Role Phone Louisa LANDRUM, Taras Fuentes Primary Care Physician Encounter [facility] Date(s): 06/15/20 - 07/15/20 [facility] [address] [place] [id number] Allergies, Adverse Reactions, Alerts Substance [...] toxoids (Td) 08/03/05 Given 1Result Comment: [12/07/2017] [address]-29 2Result Comment: [12/21/2016] [facility]: [id number] 3Result Comment: [06/10/2015] #3 4Admin Note: per pt 5Admin Note: given in clinic Medications acarbose 25 mg oral tablet 1 tablet = 25 mg, By Mouth, 3 times a day, Take 1 tablet 3 times daily with meals. Add to 50mg dosefor total of 75mg 3 times daily. E11.65, # 270 tablet, 3 Refills, Maintenance, 07/15/20 12:23:00 EDT, Tablet, [facility], Partial... Start Date: 07/15/20 Status: Ordered acarbose 50 mg oral tablet 1 tablet = 50 mg, By Mouth, 3 times a day, Take 3 times daily with meals. E11.65, # 90 tablet, 5 Refills, Maintenance, 07/13/20 16:29:00 EDT, Tablet, [facility], [...] 0 Refills, Maintenance, 07/03/19 13:59:00 EDT, Solution, [facility], 160, cm, 05/29/19 13:36:00 EDT, [...] 60 capsule, 5 Refills, Maintenance, 05/07/20 15:54:00EST, [facility], 160.02, cm, 05/01/20 9:18:00 EST, [...] 1 Refills, Soft Stop, 11/20/19 11:59:00 EDT, [facility], 160.02, cm, 11/15/19 10:05:00 EDT, [...] 02/25/19 16:55:00 EST, Route to Pharmacy Electronically, [facility], 158, cm, 02/14/19 7:55:00 EST, Height, 61.9, kg, 02/12/19 10:17:00... Start Date: 02/25/19 Status: Ordered montelukast 10 mg oral tablet 10 mg, 1, tablet, By Mouth, Daily in PM, # 90 tablet, Refills 3, Tot. Refills 3, Maintenance, 08/15/19 16:21:00 EDT, Route to Pharmacy Electronically, [facility], 160, cm, 08/15/19 13:45:00 EDT, Height, 56.5, kg, 05/29/19 13:36:00... Start Date: 08/15/19 Status: Ordered ProAir HFA 90 mcg/inh inhalation aerosol with adapter 2, puffs, Inhalation, Every 4 hours, PRN, # 8.5 Gm, Refills 2, Tot. Refills 2, Maintenance, 04/29/19 11:32:00 EST, Aerosol, Route to Pharmacy Electronically, NCPDP_[id number], [facility], 160, cm, 04/29/19 10:47:00 EST, Height... Start Date: 04/29/19 Status: Ordered rifAXIMin 550 mg oral tablet 1 tablet = 550 mg, By Mouth, 3 times a day, # 42 tablet, 0 Refills, Maintenance, 07/14/20 13:37:00 EDT, Tablet, [facility], [...] 6 Refills, Maintenance, 03/12/20 11:09:00 EST, Tablet, [facility], weaning zonegran off by 25mg [...] 6 Refills, Soft Stop, 03/12/20 11:04:00 EST, [facility], Partial fill [...] 0 Refills, Maintenance, 06/13/20 14:10:00 EDT, Capsule, [facility],... Start Date: 06/13/20 Status: Ordered [...] 1resolved after weight loss 2chronic perst 3gyn 59949 5testing negative insulinoma 6likley dumping sydrome 7abnormal GTT ;sugar 36 two hours into test 8sees gi 9normal CT brain 10new 115.3 cm,right per ct scan recent;seeing gynecology soon;they will review 12vit d deficiency;correct 254203 14per endocrinology monitor 15correction refer GTT; 2 hour glucose 36 16refer GGT 17seeing ortho;pre op 18asma,ama neg/cerulopalsmain wnl,AAT wnl 19Negative hep A antibody positive hep B surface antibody negative antigen negative hep C, normal ferritin 20ukltrasound Social History Social History Type Response Smoking Status Never smoker entered on: 02/20/13 Sex
--- OUTSIDE RECORDS SUMMARY | 2022-08-17 08:34 | XMS_ITS | Continuity of Care Document ---
Author Name Unknown Organization [facility] Address [address] [place] [address]- Care Team Providers Care Fixing Machine Operator Name Role Phone Louisa LANDRUM, Taras Fuentes Primary Care Physician Encounter [facility] [place] [facility] Date(s): 09/26/19 - 10/26/19 [facility] Adult [address] [place] [address]- [facility] Allergies, Adverse Reactions, Alerts [...] toxoids (Td) 08/03/05 Given 1Result Comment: [12/07/2017] [id number] 2Result Comment: [12/21/2016] [facility]: [id number] 3Result Comment: [06/10/2015] #3 4Admin Note: per [...] 07/03/19 13:59:00 EDT, Solution, [facility], 160, cm, 05/29/19 13:36:00 EDT, Height, 56.5, kg, 03... Start Date: 07/03/19 Status: Ordered albuterol CFC free 90 mcg/inh inhalation aerosol 2, puffs, Inhalation, 4 times a day, PRN, # 25 Gm, Refills 0, Tot. Refills 0, Maintenance, 07/07/2012:36:00 EDT, Aerosol, Route to Pharmacy Electronically, NCPDP_[id number], [facility], 160, cm, 07/08/19 13:03:00 EDT, Height, [...] 60 capsule, 5 Refills, Maintenance, 07/30/19 10:21:00EDT, [facility], 160, cm, 07/08/19 13:03:00 EDT, Height, 56.5, kg, 05/29/19 13:36:00 EDT, Dry Weight Start Date: 07/30/19 Status: Ordered eletriptan 40 mg oral tablet 1 tablet = 40 mg, By Mouth, Daily, PRN for migraine headache, # 9 tablet, 5 Refills, Soft Stop, 07/16/19 9:23:00 EDT, Tablet, [facility], she has tried sumatriptan and rizatriptan. if insurance still declines let me know which I c... Start Date: 07/16/19 Stop Date: 01/12/20 Status: Ordered famotidine 20 mg oral tablet 20 mg, 1, tablet, By Mouth, Daily at bedtime, # 30 tablet, Refills 5, Tot. Refills 5, Maintenance, 05/17/19 12:02:00 EDT, Route to Pharmacy Electronically, [facility], 160, cm, 05/16/19 10:27:00 EDT, Height, 62.9, kg, 05/12/19 9:1... Start Date: 05/17/19 Status: Ordered famotidine 40 mg oral tablet 1/2 tablet, By Mouth, Daily at bedtime, famotidine 20mg backordered. please take 1/2 tab daily, # 30 each, 1 Refills, Maintenance, 07/30/19 10:21:00 EDT, [facility], 160, cm, 07/08/19 13:03:00 EDT, Height, [...] to Pharmacy Electronically, [facility], 158, cm, 02/14/19 7:55:00 [...] 0 Refills,Maintenance, 10/06/19 21:07:00 EDT, DIS Tablet, [facility] Start Date: 10/06/19 Stop Date: 10/09/19 Status: Ordered ProAir HFA 90 mcg/inh inhalation aerosol with adapter 2, puffs, Inhalation, Every 4 hours, PRN, # 8.5 Gm, Refills 2, Tot. Refills 2, Maintenance, 04/29/19 11:32:00 EST, Aerosol, Route to Pharmacy Electronically, NCPDP_[id number], [facility], 160, cm, 04/29/19 10:47:00 [...] 07/08/19 13:36:00 EDT, Route to Pharmacy Electronically, NCPDP_[id number], [facility], 160, cm, 07/08/19 13:03:00 ED... Start Date: 07/08/19 Status: Ordered Topamax 50 mg oral tablet 1 tablet = 50 mg, By Mouth, Daily at bedtime, after weaning off zonegran, take 50mg at HS for 2 weeks then increase to 100mg at HS, # 30 tablet, 6 Refills, Maintenance, 02/11/20 10:51:00 EST, Tablet,[facility], weaning zonegran o... Start Date: 02/11/20 Stop Date: 09/08/20 Status: Ordered Topamax 50 mg oral tablet 1 tablet = 50 mg, By Mouth, Daily at bedtime, for 30 days, after weaning off zonegran, take 50mg atHS for 2 weeks then increase to 100mg at HS, # 30 tablet, 6 Refills, Hard Stop 02/11/20 10:51:00 EST, 07/16/19 10:51:00 EDT, Tablet, Counts Include [facility] Ce... Start Date: 07/16/19 Stop Date: 02/11/20 Status: Ordered Zofran 4 mg oral tablet 1 tablet = 4 mg, By Mouth, Every 8 hours, PRN Nausea & Vomiting, # 30 tablet, 0 Refills, Maintenance, 09/30/19 11:23:00 EDT, [facility], 160.02, cm, 09/24/19 15:31:00 EDT, Height, [...] perst 3folowed by mental health;recent hospitalization 4gyn 60205 6testing negative insulinoma 7likley dumping sydrome 8abnormal GTT ;sugar 36 two hours into test 9sees gi 10normal CT brain 11new 125.3 cm,right per ct scan recent;seeing gynecology soon;they will review 13vit d deficiency;correct 118704 15per endocrinology monitor 16correction refer GTT; 2 hour glucose 36 17refer GGT 18seeing ortho;pre op 19asma,ama neg/cerulopalsmain wnl,AAT wnl 20Negative hep A antibody positive hep B surface antibody negative antigen negative hep C, normal ferritin 21ukltrasound Social History Social History Type Response Smoking Status Never smoker entered on: 02/20/13 Sex
--- OUTSIDE RECORDS SUMMARY | 2022-08-17 08:34 | XMS_ITS | Continuity of Care Document ---
Author Name Unknown Organization [facility] Address [address] [place] [address]- Care Team Providers Care Shift Coordinator Name Role Phone Louisa LANDRUM, Taras Fuentes Primary Care Physician [phone] Encounter [facility] Date(s): 03/03/21 - 04/02/21 [facility] [address] [place] [address]- [place] Allergies, Adverse Reactions, Alerts Substance Reaction [...] toxoids (Td) 08/03/05 Given 1Result Comment: [12/07/2017] [id number] 2Result Comment: [12/21/2016] [facility]: [id number] 3Result Comment: [06/10/2015] #3 4Admin Note: per [...] Date: 12/10/20 Stop Date: 07/08/21 Status: Ordered [place] 0.65% nasal spray 2 sprays, Nares, Both, [...] 8:26:00 EDT, Aerosol, Route to Pharmacy Electronically, NCPDP_[id number], [facility], 158.02, cm, 01/06/21 [...] Gm, Refills 11, Route to Pharmacy Electronically, NCPDP_[id number], [facility], 158.02, cm, 11/13/20 [...] mL, 1 Refills, Maintenance, 01/06/21 13:36:00 EDT, [facility], Partialfill upon patient request if [...] 1resolved after weight loss 2chronic perst 3gyn 65619 5testing negative insulinoma 6likley dumping sydrome 7abnormal GTT ;sugar 36 two hours into test 8sees gi 9normal CT brain 10new 115.3 cm,right per ct scan recent;seeing gynecology soon;they will review 12vit d deficiency;correct 024310 14per endocrinology monitor 15correction refer GTT; 2 hour glucose 36 16refer GGT 17seeing ortho;pre op 18asma,ama neg/cerulopalsmain wnl,AAT wnl 19Negative hep A antibody positive hep B surface antibody negative antigen negative hep C, normal ferritin 20ukltrasound Social History Social History Type Response Smoking Status Never smoker entered on: 02/20/13 Sex
--- OUTSIDE RECORDS SUMMARY | 2022-08-17 08:35 | XMS_ITS | Continuity of Care Document ---
Author Name Unknown Organization [facility] Address [address] [place] [address]- Care Team Providers Care Columnist Name Role Phone Louisa LANDRUM, Taras Fuentes Primary Care Physician Encounter [facility] Date(s): 06/27/19 - 07/04/19 [facility] Adult [address] [place] [address]- [facility] Attending Physician: Not on Staff, Attending MD [...] toxoids (Td) 08/03/05 Given 1Result Comment: [12/07/2017] [id number] 2Result Comment: [12/21/2016] [facility]: [id number] 3Result Comment: [06/10/2015] #3 4Admin Note: per pt 5Admin Note: given in clinic Medications albuterol 0.083% inhalation solution 3 mL = 2.5 mg, Inhalation, Every 6 hours, PRN for wheezing, Use in nebulizer machine as directed, #25 each, 0 Refills, Maintenance, 07/03/19 13:59:00 EDT, Solution, [facility], 160, cm, 05/29/19 13:36:00 EDT, Height, 56.5, kg, 03... Start Date: 07/03/19 Status: Ordered Dexilant 60 mg oral delayed [...] tablet, Refills 11, Tot. Refills 11, Maintenance, 12/23/19 16:55:00 EST, Route to Pharmacy Electronically, [facility], 158, cm, 02/14/19 7:55:00 EST, Height, 61.9, kg, 02/12/19 10:17:00... Start Date: 02/25/19 Status: Ordered predniSONE 20 mg oral tablet 1 tablet = 20 mg, By Mouth, 2 times a day, for 5 days, # 10 tablet, 0 Refills, Acute 07/06/19 15:39:00 EDT, 07/01/19 15:39:00 EDT, Tablet, [facility], 160, cm, 05/29/19 13:36:00 EDT, Height, 56.5, kg, 05/29/19 13:36:00 EDT, Dry We... Start Date: 07/01/19 Stop Date: 07/06/19 Status: Ordered ProAir HFA 90 mcg/inh inhalation aerosol with adapter 2, puffs, Inhalation, Every 4 hours, PRN, # 8.5 Gm, Refills 2, Tot. Refills 2, Maintenance, 04/29/19 11:32:00 EST, Aerosol, Route to Pharmacy Electronically, NCPDP_[id number], [facility], 160, [...] perst 3folowed by mental health;recent hospitalization 4gyn 66994 6testing negative insulinoma 7likley dumping sydrome 8abnormal GTT ;sugar 36 two hours into test 9sees gi 10normal CT brain 11new 125.3 cm,right per ct scan recent;seeing gynecology soon;they will review 13vit d deficiency;correct 243190 15per endocrinology monitor 16correction refer GTT; 2 hour glucose 36 17refer GGT 18seeing ortho;pre op 19asma,ama neg/cerulopalsmain wnl,AAT wnl 20Negative hep A antibody positive hep B surface antibody negative antigen negative hep C, normal ferritin 21ukltrasound Social History Social History Type Response Smoking Status Never smoker entered on: 02/20/13 Sex
--- OUTSIDE RECORDS SUMMARY | 2022-08-17 08:35 | XMS_ITS | Continuity of Care Document ---
Author Name Unknown Organization [facility] Address [address] [place] [address]- Care Team Providers Care Supervisor Instrument Repair Name Role Phone Louisa LANDRUM, Taras Fuentes Primary Care Physician Encounter [facility] Date(s): 08/07/19 - 09/06/19 [facility] [address] [place] [address]- [facility] Attending Physician: Konrad Curtis Admitting [...] toxoids (Td) 08/03/05 Given 1Result Comment: [12/07/2017] [id number] 2Result Comment: [12/21/2016] [facility]: [id number] 3Result Comment: [06/10/2015] #3 4Admin Note: per [...] 07/07/2012:36:00 EDT, Aerosol, Route to Pharmacy Electronically, NCPDP_[id number], [facility], 160, cm, 07/08/19 [...] 11:32:00 EST, Aerosol, Route to Pharmacy Electronically, NCPDP_[id number], [facility], 160, [...] 07/08/19 13:36:00 EDT, Route to Pharmacy Electronically, NCPDP_[id number], [facility], 160, cm, 07/08/19 [...] perst 3folowed by mental health;recent hospitalization 4gyn 87597 6testing negative insulinoma 7likley dumping sydrome 8abnormal GTT ;sugar 36 two hours into test 9sees gi 10normal CT brain 11new 125.3 cm,right per ct scan recent;seeing gynecology soon;they will review 13vit d deficiency;correct 504842 15per endocrinology monitor 16correction refer GTT; 2 hour glucose 36 17refer GGT 18seeing ortho;pre op 19asma,ama neg/cerulopalsmain wnl,AAT wnl 20Negative hep A antibody positive hep B surface antibody negative antigen negative hep C, normal ferritin 21ukltrasound Social History Social History Type Response Smoking Status Never smoker entered on: 02/20/13 Sex
--- OUTSIDE RECORDS SUMMARY | 2022-08-17 08:35 | XMS_ITS | Continuity of Care Document ---
Author Name Unknown Organization [facility] Address [address] [place] [address]- Care Team Providers Care Exit Booth Agent Name Role Phone Louisa LANDRUM, Taras Fuentes Primary Care Physician [phone] Encounter [facility] Date(s): 11/25/19 - 12/25/19 [facility] Adult [address] [place] [address]- [facility] Allergies, Adverse Reactions, Alerts Substance [...] toxoids (Td) 08/03/05 Given 1Result Comment: [12/07/2017] [id number] 2Result Comment: [12/21/2016] [facility]: [id number] 3Result Comment: [06/10/2015] #3 4Admin Note: per [...] 07/07/2012:36:00 EDT, Aerosol, Route to Pharmacy Electronically, NCPDP_[id number], [facility], 160, cm, 07/08/19 13:03:00 EDT, [...] 60 capsule, 5 Refills, Maintenance, 07/30/19 10:21:00EDT, [facility], 160, cm, 07/08/19 13:03:00 EDT, Height, 56.5, kg, 05/29/19 13:36:00 EDT, Dry Weight Start Date: 07/30/19 Status: Ordered eletriptan 40 mg oral tablet 1 tablet = 40 mg, By Mouth, Daily, PRN for migraine headache, # 9 tablet, 5 Refills, Soft Stop, 07/16/19 9:23:00 EDT, Tablet, [facility], she has tried sumatriptan and [...] Refills, Maintenance, 11/15/19 10:29:00 EDT, REC Powder, [facility], 240 mL By Mouth Every [...] 11:32:00 EST, Aerosol, Route to Pharmacy Electronically, NCPDP_[id number], [facility], 160, [...] 07/08/19 13:36:00 EDT, Route to Pharmacy Electronically, NCPDP_[id number], [facility], 160, cm, 07/08/19 13:03:00 ED... Start Date: 07/08/19 Status: Ordered Topamax 50 mg oral tablet 2 tablet = 100 mg, By Mouth, Daily at bedtime, # 60 tablet, 6 Refills, Maintenance, 11/04/19 11:08:00 EDT, Tablet, [facility], weaning zonegran [...] Refills, Soft Stop, 11/25/19 21:26:00 EDT, Tablet, [facility], 160.02, cm, 11/15/19 [...] perst 3folowed by mental health;recent hospitalization 4gyn 26278 6testing negative insulinoma 7likley dumping sydrome 8abnormal GTT ;sugar 36 two hours into test 9sees gi 10normal CT brain 11new 125.3 cm,right per ct scan recent;seeing gynecology soon;they will review 13vit d deficiency;correct 999734 15per endocrinology monitor 16correction refer GTT; 2 hour glucose 36 17refer GGT 18seeing ortho;pre op 19asma,ama neg/cerulopalsmain wnl,AAT wnl 20Negative hep A antibody positive hep B surface antibody negative antigen negative hep C, normal ferritin 21ukltrasound Social History Social History Type Response Smoking Status Never smoker entered on: 02/20/13 Sex
--- OUTSIDE RECORDS SUMMARY | 2022-08-17 08:35 | XMS_ITS | Continuity of Care Document ---
Author Name Unknown Organization [facility] Address [address] [place] [address]- Care Team Providers Care Slicing Machine Feeder Name Role Phone Eran Sue JOHNSON Primary Care Physician Encounter [facility] Date(s): 05/31/21 - 06/30/21 [facility] [address] [place] [id number] Allergies, Adverse Reactions, Alerts Substance Reaction Severity Status Dust Allergy to pollen Active Pollen seasonal allergies respiratory symptoms Active Incruse Ellipta 1 lightheaded and migraine Active 1dizzy Immunizations Given and Recorded Vaccine Date Status Refusal Reason SARS-CoV-2 mRNA ([id number]) vax 05/01/21 Recorded influenza virus vaccine, inactivated [...] toxoids (Td) 08/03/05 Given 1Result Comment: [12/07/2017] [id number] 2Result Comment: [12/21/2016] [facility]: [id number] 3Result Comment: [06/10/2015] #3 4Admin Note: per [...] Refills, Maintenance, 03/03/21 16:42:00 EST, REC Powder, [facility], Partial fill upon [...] 30 mL, 1 Refills, 06/28/21 13:52:00 EDT, [facility], 158, cm, 05/24/21 16:05:00 EDT, Height, 80.6, kg, 03/08/21 12:18... Start Date: 06/28/21 Status: Ordered Dexilant 60 mg oral delayed release capsule 1 capsule = 60 mg, By Mouth, 2 times a day, 30 min before meal, # 60 capsule, 5 Refills, Maintenance, 04/16/21 14:29:00 EST, CR Capsule, [facility], Partial fill upon patient request if the prescription is for a schedule II opioi... Start Date: 04/16/21 Status: Ordered Emgality Prefilled Pen 120 mg/mL subcutaneous solution = 120 mg, Subcutaneous Injection, Once, Maintenance Dose, # 1 kit, 6 Refills, Soft Stop, 06/29/21 10:09:00 EDT, [facility], Partial fill upon patient request if the prescription is for a schedule II opioid drug., 158, [place], 06/29/21... Start Date: 06/29/21 Status: Ordered Emgality Prefilled Pen 120 mg/mL subcutaneous solution = 240 mg, Subcutaneous Injection, Once, Loading Dose, # 2 kit, 0 Refills, Soft Stop, 03/16/21 16:05:00 EST, [facility], Partial fill upon patient request if the prescription is for a schedule II opioid drug., 158, [place], 03/11/21 9:1... Start Date: 03/16/21 Status: Ordered EPINEPHrine 1 mg/mL injectable solution 0.3 mL = 0.3 mg, Intramuscular, Once, # 1 mL, 1 Refills, Soft Stop, 03/08/21 15:07:00 EST, Solution, [facility], Partial fill upon [...] 1 Refills, Maintenance, 04/06/21 9:45:00 EST, Solution, [facility], Partial fill upon patient request if the prescription is for a schedule II opioid drug.... Start Date: 04/06/21 Status: Ordered loratadine 10 mg oral tablet 10 mg, 1, tablet, By Mouth, Daily, # 90 tablet, Refills 0, Tot. Refills 0, Maintenance, 05/24/21 11:12:00 EDT, Route to Pharmacy Electronically, [facility], 158, cm, 05/14/21 7:52:00 [...] 04/23/21 12:32:00 EST, Route to Pharmacy Electronically, [facility], 158, cm, 04/09/21 8:13:00 [...] Date: 12/10/20 Stop Date: 07/08/21 Status: Ordered [place] 0.65% nasal spray 2 sprays, Nares, Both, 4 times a day, # 1 each, 3 Refills, Maintenance, 05/14/21 11:40:00 EST, [facility], Partial fill upon patient request if the prescription is for a scheduleII opioid drug., 2 sprays Nares, Both 4 times a day... Start Date: 05/14/21 Status: Ordered ProAir HFA 90 mcg/inh inhalation aerosol with adapter 2, puffs, Inhalation, Every 4 hours, PRN, # 8.5 Gm, Refills 1, Tot. Refills 1, Maintenance, 05/13/21 19:25:00 EST, Aerosol, Route to Pharmacy Electronically, NCPDP_[id number], [facility], 158, cm, 05/06/21 6:58:00 [...] Gm, Refills 11, Route to Pharmacy Electronically, NCPDP_[id number], [facility], 158.02, cm, 11/13/20 [...] 1resolved after weight loss 2chronic perst 3gyn 63803 5testing negative insulinoma 6likley dumping sydrome 7abnormal GTT ;sugar 36 two hours into test 8sees gi 9normal CT brain 10new 115.3 cm,right per ct scan recent;seeing gynecology soon;they will review 12vit d deficiency;correct [id number] 14per endocrinology monitor 15correction refer GTT; 2 hour glucose 36 16refer GGT 17seeing ortho;pre op 18asma,ama neg/cerulopalsmain wnl,AAT wnl 19Negative hep A antibody positive hep B surface antibody negative antigen negative hep C, normal ferritin 20ukltrasound Social History Social History Type Response Smoking Status Never smoker entered on: 02/20/13 Sex
--- OUTSIDE RECORDS SUMMARY | 2022-08-17 08:35 | XMS_ITS | Continuity of Care Document ---
Author Name Unknown Organization [facility] Address [address] [place] [address]- Care Team Providers Care Insulation Manager Name Role Phone Eran ENTERTAINMENT REPORTER, Sue Dahl Primary Care Physician Encounter [facility] Date(s): 07/13/21 - 08/12/21 [facility] Adult [address] [place] [address]- Allergies, Adverse Reactions, Alerts Substance Reaction Severity Status Dust Allergy to pollen Active Pollen seasonal allergies respiratory symptoms Active Incruse Ellipta 1 lightheaded and migraine Active 1dizzy Immunizations Given and Recorded Vaccine Date Status Refusal Reason SARS-CoV-2 mRNA (ngqbkxp-euev-sersk) vax 05/01/21 Recorded influenza virus vaccine, inactivated [...] toxoids (Td) 08/03/05 Given 1Result Comment: [12/07/2017] [address]-31 2Result Comment: [12/21/2016] [facility]: 27587-924-53 3Result Comment: [06/10/2015] #3 4Admin Note: per [...] 30 mL, 1 Refills, 06/28/21 13:52:00 EDT, [facility], 158, cm, 05/24/21 16:05:00 EDT, Height, [...] 6 Refills, Soft Stop, 06/29/21 10:09:00 EDT, [facility], [...] 05/24/21 11:12:00 EDT, Route to Pharmacy Electronically, [facility], 158, cm, 05/14/21 7:52:00 EST, Height, [...] 04/23/21 12:32:00 EST, Route to Pharmacy Electronically, [facility], 158, cm, 04/09/21 8:13:00 EST, Height, [...] Date: 12/10/20 Stop Date: 07/08/21 Status: Ordered [place] 0.65% nasal spray 2 sprays, Nares, Both, 4 times a day, # 1 each, 3 Refills, Maintenance, 05/14/21 11:40:00 EST, [facility], [...] 19:25:00 EST, Aerosol, Route to Pharmacy Electronically, NCPDP_[id number], [facility], 158, cm, 05/06/21 6:58:00 EST, Height, [...] Gm, Refills 11, Route to Pharmacy Electronically, NCPDP_[id number], [facility], 158.02, [...] 10 Active Orthostatic hypotension(Confirmed) Active Osteoporosis REclast Aug 202 1/ Endocrinology(Confirmed) 07/03/20 Active Ovarian cyst(Confirmed) 11 Active Leg paresthesia(Confirmed) 07/24/17 Active Personal history of gastric bypass ? 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 Impingement syndrome of shoulder(Confirmed) 17 Active Fatty liver(Confirmed) 18, 19, 20 10/09/16 Active Vitamin D deficiency(Confirmed) Active 1resolved after weight loss 2chronic perst 3gyn 82579 5testing negative insulinoma 6likley dumping sydrome 7abnormal GTT ;sugar 36 two hours into test 8sees gi 9normal CT brain 10new 115.3 cm,right per ct scan recent;seeing gynecology soon;they will review 12vit d deficiency;correct 029609 14per endocrinology monitor 15correction refer GTT; 2 hour glucose 36 16refer GGT 17seeing ortho;pre op 18asma,ama neg/cerulopalsmain wnl,AAT wnl 19Negative hep A antibody positive hep B surface antibody negative antigen negative hep C, normal ferritin 20ukltrasound Social History Social History Type Response Smoking Status Never smoker entered on: 02/20/13 Sex
--- OUTSIDE RECORDS SUMMARY | 2022-08-17 08:35 | XMS_ITS | Continuity of Care Document ---
Author Name Unknown Organization [facility] Address [address] [place] [address]- Care Team Providers Care Chemistry Department Chair Name Role Phone Eran Sue JOHNSON Primary Care Physician [phone] Encounter [facility] Date(s): 12/21/21 - 01/20/22 [facility] [address] [place] [address]- [place] Allergies, Adverse Reactions, Alerts Substance Reaction Severity Status Dust Allergy to pollen Active Pollen seasonal allergies respiratory symptoms Active Incruse Ellipta 1 lightheaded and migraine Active 1dizzy Immunizations Given and Recorded Vaccine Date Status Refusal Reason [id number] 12y+ bivalent booster vax 1 12/24/21 Given [...] vaccine, inactivated 02/08/11 Give n SARS-CoV-2 mRNA (cndckau-sbde-amnom) vax 05/01/21 Recorded zoster vaccine, inactivated 11/03/20 [...] tetanus-diphtheria toxoids (Td) 08/03/05 Given 1Result Comment: [address]-4 2Result Comment: 05634-415-15 3Result Comment: [12/07/2017] [address]-02 4Result Comment: [12/21/2016] [facility]: 89025-207-00 5Result Comment: [06/10/2015] #3 6Admin Note: per pt 7Admin Note: given in clinic Medications acarbose 25 mg oral tablet See Instructions, 1 tablet with 50 mg (total 75 mg) By Mouth before lunch, # 30 each, 11 Refills, Maintenance, 11/03/21 8:24:00 EDT, Tablet, [facility], 158, cm, 11/03/21 8:01:00EDT, Height, 71.5, kg, 09/01/21 16:21:00 EDT, Dry W... Start Date: 11/03/21 Status: Ordered acarbose 50 mg oral tablet See Instructions, 1 tablet with 25 mg (total 75 mg) By Mouth before lunch, # 30 each, 11 Refills, Maintenance, 11/03/21 8:23:00 EDT, Tablet, [facility], Partial fill upon patientrequest if the prescription is for a schedule II op... Start Date: 11/03/21 Status: Ordered acetaminophen 500 mg oral tablet 2 tablet = 1,000 mg, By Mouth, Every 6 hours, PRN as needed for fever, # 200 tablet, 0 Refills, Maintenance, 12/03/21 10:17:00 EDT, Tablet, [facility], Partial fill upon patient request if the prescription is for a schedule II opi... Start Date: 12/03/21 Status: Ordered Albuterol (Eqv-ProAir HFA) 90 mcg/inh inhalation aerosol 2 puffs, Inhalation, Every 4 hours, PRN NEEDED FOR WHEEZING, # 8.5 Gm, 1 Refills, Maintenance, 12/03/21 14:16:00 EDT, [facility], 18, INHALE TWO PUFFS EVERY 4 HOURS NEEDED FOR WHEEZING, 163, cm, 12/03/21 9:39:00 EDT, Height,... Start Date: 12/03/21 Status: Ordered calcium (as citrate)-vitamin D 315 mg-250 intl units oral tablet 2 tablet, By Mouth, 2 times a day, # 120 tablet, 6 Refills, Maintenance, 11/03/21 8:23:00 EDT, Tablet, [facility], 2 tablet By Mouth [...] Refills, Maintenance, 11/22/21 9:49:00 EDT, CR Capsule, [facility], Partial fill upon patient request if the prescription is for a schedule II opioid... Start Date: 11/22/21 Status: Ordered Emgality Prefilled Pen 120 mg/mL subcutaneous solution = 120 mg, Subcutaneous Injection, Once, Maintenance Dose, # 1 kit, 6 Refills, Soft Stop, 12/30/21 12:19:00 EDT, [facility], Partial [...] 11/15/21 10:56:00 EDT, Route to Pharmacy Electronically, [facility], 158, cm, 11/03/21 8:01:00 EDT, Height, 71.5, kg, 09/01/21 16:21:00 EDT, Mark Start Date: 11/15/21 Status: Ordered montelukast 10 mg oral tablet 1, tablet, By Mouth, Daily in PM, # 90 tablet, Refills 1, Tot. Refills 1, Maintenance, 11/14/21 11:28:00 EDT, Route to Pharmacy Electronically, [facility], 158, cm, 11/03/21 8:01:00 EDT, Height, 71.5, kg, 09/01/21 16:21:00 EDT, Start Date: 11/14/21 Status: Ordered Nurtec ODT 75 mg oral tablet, disintegrating See Instructions, TAKE ONE TABLET DAILY NEEDED FOR migraines, DO NOT EXCEED ONE TABLET IN 24 HOURS, # 8 tablet, 6 Refills, Maintenance, 12/28/21 15:14:00 EDT, [facility], 163,cm, 12/24/21 8:20:00 EDT, Height, 67, kg, 11/26/21... Start Date: 12/28/21 Status: Ordered Paxlovid 150 mg-100 mg (150 mg-100 mg Dose) oral tablet See Instructions, Take 3 tablets by mouth twice a day for 5 days GFR avove 60, # 30 tablet, 0 Refills, Maintenance, 01/18/22 8:00:00 EST, [facility], Partial [...] 11/23/21 19:57:00 EDT, Route to Pharmacy Electronically, NCPDP_[id number], [facility], 158, cm, 11/03/21 8:0... Start [...] 5 Refills, Maintenance, 12/10/21 9:44:00 EDT, Tablet, [facility], [...] Active Vitamin D deficiency Confirmed Active 1gyn 90785 3testing negative insulinoma 4likley dumping sydrome 5abnormal GTT ;sugar 36 two hours into test 6sees gi 7normal CT brain 8new 9resolved after weight loss 10chronic perst 115.3 cm,right per ct scan recent;seeing gynecology soon;they will review 12vit d deficiency;correct 191522 14per endocrinology monitor 15correction refer GTT; 2 hour glucose 36 16refer GGT 17seeing ortho;pre op 18asma,ama neg/cerulopalsmain wnl,AAT wnl 19Negative hep A antibody positive hep B surface antibody negative antigen negative hep C, normal ferritin 20ukltrasound Social History Social History Type Response Smoking Status Never smoker entered on: 02/20/13 Sex Patient Care team information Care Team Personnel Name: Caitlyn Mcgee RN Position: [facility] RN Member Role: Primary Care Nurse Name: Sue Barillas NP Position: [facility] PCO Associate Professional Member Role: PCP Address: Address: [address] [place] [address]- Name: Andria Guadalupe RN Position: [facility] RN Member Role: Primary Care Nurse Name: Liz Martin RN Position: [facility] RN Member Role: Primary Care Nurse Name: Ambreen Mcmahon RN Position: [facility] RN Member Role: Primary Care Nurse Name: Irais Grijalva RN Position: [facility] RN Member Role: Primary Care Nurse Name: Autumn Martinez RN Position: [facility] RN Member Role: Primary Care Nurse Name: Concha Mckinley RN Position: [facility] RN Member Role: Primary Care Nurse Name: Liz English RN Position: [facility] RN Member Role: Primary Care Nurse Name: Dora Williamson RN Position: [facility] RN Member Role: Primary Care Nurse Care Team Related Persons Name: KHUSHI CUNNINGHAM Address: home [address] [place] [address] Name: BHUPINDER VENEGAS Address: home [address] [place] [address] Name: FELIPE FLORES Address: home [address] [place] [address] Name: ARNAV FLORES Address: home [address] [place] [address] Name: IRINA FLORES Address: home [address] [place] [address] Name: RUSLAN FLORES Address: home [address] [place] [address] Name: KAISER PLUNKETT Address: home [address] [place] [address]
--- OUTSIDE RECORDS SUMMARY | 2022-08-17 08:35 | XMS_ITS | Continuity of Care Document ---
Author Name Unknown Organization [facility] Address [address] [place] [address]- Care Team Providers Care Leather Production Worker Name Role Phone Eran BRIM BUSTER, Sue Dahl Primary Care Physician [facility]counter [facility] Date(s): 06/14/22 - 07/14/22 [facility] [address] [place] [address]- [place] Allergies, Adverse Reactions, Alerts Substance Reaction Severity Status Dust Allergy to pollen Active Pollen seasonal allergies respiratory symptoms Active Incruse Ellipta 1 lightheaded and migraine Active 1dizzy Immunizations Given and Recorded Vaccine Date Status Refusal Reason [id number] 12y+ bivalent booster vax 1 12/24/21 Given [...] vaccine, inactivated 02/08/11 Give n SARS-CoV-2 mRNA (dsqwiqc-cppk-kfxjz) vax 05/01/21 Recorded zoster vaccine, inactivated 11/03/20 [...] tetanus-diphtheria toxoids (Td) 08/03/05 Given 1Result Comment: [address]-9 2Result Comment: [id number] 3Result Comment: [12/07/2017] [address]-78 4Result Comment: [12/21/2016] [facility]: 20999-423-84 5Result Comment: [06/10/2015] #3 6Admin Note: per [...] 1,200 mL, 5 Refills, Maintenance,04/29/22 9:16:00 EST, [facility] #[id number], Partial fill upon patient request if the [...] Soft Stop, 07/14/22 10:04:00 EDT, [facility], requesting 3 month [...] 0 Refills, Maintenance, 04/09/22 15:16:00 EST,Chew Tablet, [facility][id number], Partial fill upon patient request if the [...] Refills, Maintenance, 04/09/22 15:16:00 EST, REC Powder, [facility] #[id number], Partial fill upon patient request if the [...] 0 Refills, Maintenance, 04/09/22 15:17:00 EST, Capsule, [facility] #[id number], Partial fill upon patient request if the prescription is for a schedule II opioid drug., 1 capsule By Mouth Daily in P... Start Date: 04/09/22 Status: Ordered Symbicort 160mcg/4.5mcg Inhaler 2, puffs, Inhalation, 2 times a day, rinse mouth and throat after use, # 10.2 Gm, Refills 2, Tot. Refills 2, Maintenance, 06/10/22 20:48:00 EDT, Route to Pharmacy Electronically, NCPDP_[id number], [facility], 158, cm, 06/07/22 [...] Active Vitamin D deficiency Confirmed Active 1gyn 69115 3testing negative insulinoma 4likley dumping sydrome 5abnormal GTT ;sugar 36 two hours into test 6normal CT brain 7new 8resolved after weight loss 9chronic perst 105.3 cm,right per ct scan recent;seeing gynecology soon;they will review 11vit d deficiency;correct 500539 13per endocrinology monitor 14correction refer GTT; 2 hour glucose 36 15refer GGT 16seeing ortho;pre op 17asma,ama neg/cerulopalsmain wnl,AAT wnl 18Negative hep A antibody positive hep B surface antibody negative antigen negative hep C, normal ferritin 19ukltrasound Social History Social History Type Response Smoking Status Never smoker entered on: 02/20/13 Sex Patient Care team information Care Team Personnel Name: Caitlyn Mcgee RN Position: [facility] RN Member Role: Primary Care Nurse Name: Sue Barillas NP Position: [facility] PCO Associate Professional Member Role: PCP Address: Address: [address] [place] [address]- Name: Andria Guadalupe RN Position: [facility] RN Member Role: Primary Care Nurse Name: Liz Martin RN Position: [facility] RN Member Role: Primary Care Nurse Name: Ambreen Mcmahon RN Position: [facility] RN Member Role: Primary Care Nurse Name: Irais Grijalva RN Position: [facility] RN Member Role: Primary Care Nurse Name: Autumn Martinez RN Position: [facility] SN RN Member Role: Primary Care Nurse Name: Liz English RN Position: [facility] RN Member Role: Primary Care Nurse Name: Dora Williamson RN Position: [facility] RN Member Role: Primary Care Nurse Care Team Related Persons Name: KHUSHI CUNNINGHAM Address: home [address] [place] [address] Name: BHUPINDER VENEGAS Address: [address] [place] [address] Name: FELIPE FLORES Address: home [address] [place] [address] Name: ARNAV FLORES Address: home [address] [place] [address] Name: IRINA FLORES Address: home [address] [place] [address] Name: RUSLAN FLORES Address: home [address] [place] [address] Name: KAISER PLUNKETT Address: home [address] [place] [address]
--- OUTSIDE RECORDS SUMMARY | 2022-08-17 08:35 | XMS_ITS | Continuity of Care Document ---
Author Name Unknown Organization [facility] Address [address] [place] [address]- Care Team Providers Care Customer Logistics Manager Name Role Phone Eran EDITORIAL ASSISTANT, Sue Dahl Primary Care Physician [phone] Encounter [facility] Date(s): 01/12/22 - 02/11/22 [facility] [address] [place] [address]- Allergies, Adverse Reactions, Alerts Substance Reaction Severity Status Dust Allergy to pollen Active Pollen seasonal allergies respiratory symptoms Active Incruse Ellipta 1 lightheaded and migraine Active 1dizzy Immunizations Given and Recorded Vaccine Date Status Refusal Reason [id number] 12y+ bivalent booster vax 1 12/24/21 Given [...] vaccine, inactivated 02/08/11 Give n SARS-CoV-2 mRNA (bdyjnmq-cgru-fwbgc) vax 05/01/21 Recorded zoster vaccine, inactivated 11/03/20 [...] tetanus-diphtheria toxoids (Td) 08/03/05 Given 1Result Comment: [id number] 2Result Comment: 89363-714-49 3Result Comment: [12/07/2017] [address]-84 4Result Comment: [12/21/2016] [facility]: 42360-802-89 5Result Comment: [06/10/2015] #3 6Admin Note: per pt 7Admin Note: given in clinic Medications acarbose 25 mg oral tablet See Instructions, 1 tablet with 50 mg (total 75 mg) By Mouth before lunch, # 30 each, 11 Refills, Maintenance, 11/03/21 8:24:00 EDT, Tablet, [facility], 158, cm, 11/03/21 8:01:00EDT, Height, 71.5, kg, 09/01/21 16:21:00 EDT, Dry W... Start Date: 11/03/21 Status: Ordered acarbose 50 mg oral tablet See Instructions, 1 tablet with 25 mg (total 75 mg) By Mouth before lunch, # 30 each, 11 Refills, Maintenance, 11/03/21 8:23:00 EDT, Tablet, [facility], Partial fill upon patientrequest if the [...] Gm, 1 Refills, Maintenance, 12/03/21 14:16:00 EDT, [facility], 18, INHALE TWO PUFFS EVERY 4 [...] Refills, Maintenance, 11/22/21 9:49:00 EDT, CR Capsule, [facility], Partial fill upon patient request if the prescription is for a schedule II opioid... Start Date: 11/22/21 Status: Ordered Emgality Prefilled Pen 120 mg/mL subcutaneous solution = 120 mg, Subcutaneous Injection, Once, Maintenance Dose, # 1 kit, 6 Refills, Soft Stop, 02/08/22 9:15:00 EST, [facility], Partial fill [...] 11/15/21 10:56:00 EDT, Route to Pharmacy Electronically, [facility], 158, cm, 11/03/21 8:01:00 EDT, Height, 71.5, kg, 09/01/21 16:21:00 EDTMark Start Date: 11/15/21 Status: Ordered Medrol 4 mg oral tablet 1 pack/packet, By Mouth, Daily, for 6 days, as directed on package labeling, # 21 tablet, 0 Refills, Acute 02/14/22 9:14:00 EST, 02/08/22 9:14:00 EST, Tablet, [facility], Partialfill upon patient [...] tablet, 0 Refills, Maintenance, 01/18/22 8:00:00 EST, [facility], Partial fill upon patient request if the prescription is for a schedule II opio... Start Date: 01/18/22 Status: Ordered Reclast = 5 mg, IV Infusion, Once, 0 Refills, Maintenance, 11/06/20 10:24:00 EDT, administered at [facility] 10/2020 Start Date: 11/06/20 [...] 11/23/21 19:57:00 EDT, Route to Pharmacy Electronically, NCPDP_[id number], [facility], 158, cm, 11/03/21 8:0... Start Date: [...] 5 Refills, Maintenance, 12/10/21 9:44:00 EDT, Tablet, [facility], Partial [...] Active Vitamin D deficiency Confirmed Active 1gyn 21562 3testing negative insulinoma 4likley dumping sydrome 5abnormal GTT ;sugar 36 two hours into test 6sees gi 7normal CT brain 8new 9resolved after weight loss 10chronic perst 115.3 cm,right per ct scan recent;seeing gynecology soon;they will review 12vit d deficiency;correct [id number] 14per endocrinology monitor 15correction refer GTT; 2 hour glucose 36 16refer GGT 17seeing ortho;pre op 18asma,ama neg/cerulopalsmain wnl,AAT wnl 19Negative hep A antibody positive hep B surface antibody negative antigen negative hep C, normal ferritin 20ukltrasound Social History Social History Type Response Smoking Status Never smoker entered on: 02/20/13 Sex Patient Care team information Care Team Personnel Name: Caitlyn Mcgee RN Position: [facility] RN Member Role: Primary Care Nurse Name: Sue Barillas NP Position: [facility] PCO Associate Professional Member Role: PCP Address: Address: [address] [place] [address] Name: Andria Guadalupe RN Position: [facility] SN RN Member Role: Primary Care Nurse Name: Liz Martin RN Position: [facility] RN Member Role: Primary Care Nurse Name: Ambreen Mcmahon RN Position: [facility] RN Member Role: Primary Care Nurse Name: Irais Grijalva RN Position: [facility] RN Member Role: Primary Care Nurse Name: Autumn Martinez RN Position: [facility] SN RN Member Role: Primary Care Nurse Name: Concha Mckinley RN Position: [facility] RN Member Role: Primary Care Nurse Name: Liz English RN Position: [facility] RN Member Role: Primary Care Nurse Name: Dora Williamson RN Position: [facility] RN Member Role: Primary Care Nurse Care Team Related Persons Name: KHUSHI CUNNINGHAM Address: home [address] [place] [address] Name: BHUPINDER VENEGAS Address: [address] [place] [address] Name: FELIPE FLORES Address: home [address] [place] [address] Name: ARNAV FLORES Address: home [address] [place] [address] Name: IRINA FLORES Address: home [address] [place], [place] Name: RUSLAN FLORES Address: home [address] [place] [address] Name: KAISER PLUNKETT Address: home [address] [place] [address]
--- OUTSIDE RECORDS SUMMARY | 2022-08-17 08:35 | XMS_ITS | Continuity of Care Document ---
Author Name Unknown Organization [facility] Address [address] [place] [address]- Care Team Providers Care Methane Gas Collection System Operator Name Role Phone Taras Jasso MD Primary Care Physician [phone] Encounter [facility] Date(s): 05/31/19 - 06/07/19 [facility] [address] [place] [address]- [facility] Encounter Diagnosis Chronic sinusitis(Discharge Diagnosis) - 05/31/19 Migraines(Discharge Diagnosis) - 05/31/19 Polyuria(Discharge Diagnosis) - 05/31/19 H/O laparoscopic adjustable gastric banding 2007(Discharge Diagnosis) - 05/31/19 Attending Physician: Taras Jasso MD Allergies, Adverse [...] toxoids (Td) 08/03/05 Given 1Result Comment: [12/07/2017] [id number] 2Result Comment: [12/21/2016] [facility]: 44311-072-93 3Result Comment: [06/10/2015] #3 4Admin Note: per [...] 05/17/19 12:02:00 EDT, Route to Pharmacy Electronically, [facility], 160, cm, 05/16/19 10:27:00 [...] 11:32:00 EST, Aerosol, Route to Pharmacy Electronically, NCPDP_[id number], [facility], 160, cm, 04/29/19 10:47:00 EST, Height... Start Date: 04/29/19 Status: Ordered rizatriptan 10 mg oral tablet 1 tablet = 10 mg, By Mouth, Daily, PRN for migraine headache, # 9 tablet, 5 Refills, Soft Stop, 06/04/19 15:37:00 EDT, Tablet, [facility], sumatriptan ineffective. If insurance [...] 5 Refills, Maintenance, 05/30/19 11:48:00 EDT, Capsule, [facility], 160, cm, [...] perst 3folowed by mental health;recent hospitalization 4gyn 56909 6testing negative insulinoma 7likley dumping sydrome 8abnormal GTT ;sugar 36 two hours into test 9sees gi 10normal CT brain 11new 125.3 cm,right per ct scan recent;seeing gynecology soon;they will review 13vit d deficiency;correct 016147 15per endocrinology monitor 16correction refer GTT; 2 hour glucose 36 17refer GGT 18seeing ortho;pre op 19asma,ama neg/cerulopalsmain wnl,AAT wnl 20Negative hep A antibody positive hep B surface antibody negative antigen negative hep C, normal ferritin 21ukltrasound Diagnosis Diagnosis Type Effective Dates Health Status Clinical Service Informant Chronic sinusitis Discharge Diagnosis 05/31/19 Migraines Discharge Diagnosis 05/31/19 Polyuria Discharge Diagnosis 05/31/19 H/O laparoscopic adjustable gastric banding 2007 Discharge Diagnosis 05/31/19 Social History Social History Type Response Smoking Status Never smoker entered on: 02/20/13 Sex
--- OUTSIDE RECORDS SUMMARY | 2022-08-17 08:35 | XMS_ITS | Continuity of Care Document ---
Author Name Unknown Organization [facility] Address [address] [place] [address] ve [address] [place] [address]- Care Team Providers Care Postal Supervisor Name Role Phone Eran TEST DIRECTOR, Sue Dahl Primary Care Physician [phone] Encounter [facility] Date(s): 03/31/22 - 04/30/22 [facility] [address] [place] [address]- Allergies, Adverse Reactions, Alerts Substance Reaction Severity Status Dust Allergy to pollen Active Pollen seasonal allergies respiratory symptoms Active Incruse Ellipta 1 lightheaded and migraine Active 1dizzy Immunizations Given and Recorded Vaccine Date Status Refusal Reason [id number] 12y+ bivalent booster vax 1 12/24/21 Given [...] vaccine, inactivated 02/08/11 Give n SARS-CoV-2 mRNA ([id number]) vax 05/01/21 Recorded zoster vaccine, inactivated 11/03/20 [...] tetanus-diphtheria toxoids (Td) 08/03/05 Given 1Result Comment: [address]-5 2Result Comment: 52980-348-28 3Result Comment: [12/07/2017] [address]-11 4Result Comment: [12/21/2016] [facility]: 31378-763-63 5Result Comment: [06/10/2015] #3 6Admin Note: per pt 7Admin Note: given in clinic Medications acetaminophen 500 mg oral tablet 2 tablet = 1,000 mg, By Mouth, Every 6 hours, PRN as needed for fever, # 200 tablet, 0 Refills, Maintenance, 12/03/21 10:17:00 EDT, Tablet, [facility], Partial fill upon patient request if the prescription is for a schedule II opi... Start Date: 12/03/21 Status: Ordered Albuterol (Eqv-ProAir HFA) 90 mcg/inh inhalation aerosol 2 puffs, Inhalation, Every 4 hours, PRN NEEDED FOR WHEEZING, # 8.5 Gm, 5 Refills, Maintenance, 03/09/22 11:21:00 EST, [facility], 17, INHALE TWO PUFFS [...] 6 Refills, Maintenance, 11/03/21 8:23:00 EDT, Tablet, [facility], 2 tablet By Mouth 2 times a day, 158, cm, 11/03/21 8:01:00 EDT,Height, 71.5, kg, 09/01/21 16:21:00 EDT, Dry Weight Start Date: 11/03/21 Status: Ordered Carafate 1 gm/10 ml oral suspension 10 mL = 1 Gm, By Mouth, 3 times a day before meals and bedtime, # 1,200 mL, 5 Refills, Maintenance,04/29/22 9:16:00 EST, [id number], Partial fill upon patient request if the [...] Refills, Maintenance, 11/22/21 9:49:00 EDT, CR Capsule, [facility], Partial fill upon patient request if the prescription is for a schedule II opioid... Start Date: 11/22/21 Status: Ordered Emgality Prefilled Pen 120 mg/mL subcutaneous solution = 120 mg, Subcutaneous Injection, Once, Maintenance Dose, # 3 kit, 2 Refills, Soft Stop, 03/17/22 8:08:00 EST, [facility], requesting 3 month supply for cheaper martinez. with 2 refills, 163, cm, 03/15/22 10:13:00 EST, Height, 68.1,... Start Date: 03/17/22 Status: Ordered EPINEPHrine 1 mg/mL injectable solution 0.3 mL = 0.3 mg, Intramuscular, Once, # 1 mL, 1 Refills, Soft Stop, 03/08/21 15:07:00 EST, Solution, [facility], Partial fill upon patient request if the prescription is for a schedule II opioid drug., 158, cm, 03/08/21 12:18:00 E... Start Date: 03/08/21 Status: Ordered famotidine 40 mg oral tablet 1 tablet = 40 mg, By Mouth, 2 times a day, # 60 tablet, 6 Refills, Maintenance, 01/31/22 14:05:00 EST, Suspension, [facility], Partial fill upon patient request if the prescription is for a schedule II opioid drug., 163, cm, 01/18... Start Date: 01/31/22 Stop Date: 08/29/22 Status: Ordered Fiber Choice 1.5 g oral tablet, chewable 1 tablet = 1.5 Gm, Chew, 3 times a day, # 90 tablet, 0 Refills, Maintenance, 04/09/22 15:16:00 EST,Chew Tablet, [id number], Partial fill upon patient request if the [...] Refills, Maintenance, 04/09/22 15:16:00 EST, REC Powder, [id number], Partial fill upon patient request if the prescription is for a schedule II opioid drug., 17 Gm... Start Date: 04/09/22 Status: Ordered montelukast 10 mg oral tablet 1, tablet, By Mouth, Daily in PM, # 90 tablet, Refills 1, Tot. Refills 1, Maintenance, 11/14/21 11:28:00 EDT, Route to Pharmacy Electronically, [facility], 158, cm, 11/03/21 8:01:00 EDT, Height, 71.5, kg, 09/01/21 16:21:00 EDT, Start Date: 11/14/21 Status: Ordered Nurtec ODT 75 mg oral tablet, disintegrating See Instructions, TAKE ONE TABLET DAILY NEEDED FOR migraines, DO NOT EXCEED ONE TABLET IN 24 HOURS, # 8 tablet, 6 Refills, Maintenance, 12/28/21 15:14:00 EDT, [facility], 163,cm, 12/24/21 8:20:00 EDT, [...] each, 0 Refills, Maintenance, 04/06/22 15:29:00 EST, [id number], Partial fi... Start Date: 04/06/22 Status: Ordered Reclast = 5 mg, IV Infusion, Once, 0 Refills, Maintenance, 11/06/20 10:24:00 EDT, administered at [facility] 10/2020 Start Date: 11/06/20 Status: Ordered Stool Softener + Stimulant Laxative 50 mg-8.6 mg oral capsule 1 capsule, By Mouth, Daily in PM, # 60 capsule, 0 Refills, Maintenance, 04/09/22 15:17:00 EST, Capsule, [id number], Partial fill upon patient request if the prescription is for a schedule II opioid drug., 1 capsule By Mouth Daily in P... Start Date: 04/09/22 Status: Ordered Symbicort 160mcg/4.5mcg Inhaler 2, puffs, Inhalation, 2 times a day, rinse mouth and throat after use, # 10.2 Gm, Refills 3, Tot. Refills 3, Maintenance, 11/23/21 19:57:00 EDT, Route to Pharmacy Electronically, NCPDP_[id number], [facility], 158, cm, 11/03/21 8:0... [...] 5 Refills, Maintenance, 12/10/21 9:44:00 EDT, Tablet, [facility], Partial fill upon patient [...] Active Vitamin D deficiency Confirmed Active 1gyn 17576 3testing negative insulinoma 4likley dumping sydrome 5abnormal GTT ;sugar 36 two hours into test 6normal CT brain 7new 8resolved after weight loss 9chronic perst 105.3 cm,right per ct scan recent;seeing gynecology soon;they will review 11vit d deficiency;correct 440479 13per endocrinology monitor 14correction refer GTT; 2 [...] Name: Sue Barillas NP Position: [facility] PCO Associate Professional Member Role: PCP Address: Address: [address] [place] [id number] Name: Andria Guadalupe RN Position: [facility] SN RN Member Role: Primary Care Nurse Name: Liz Martin RN Position: S RN Member Role: Primary Care Nurse Name: Ambreen Mcmahon RN Position: [facility] RN Member Role: Primary Care Nurse Name: Irais Grijalva RN Position: [facility] RN Member Role: Primary Care Nurse Name: Autumn Martinez RN Position: [facility] SN RN Member Role: Primary Care Nurse Name: Concha Mckinley RN Position: [facility] RN Member Role: Primary Care Nurse Name: Liz English RN Position: [facility] RN Member Role: Primary Care Nurse Name: Dora Williamson RN Position: [facility] RN Member Role: Primary Care Nurse Care Team Related Persons Name: KHUSHI CUNNINGHAM Address: home [address] [place] [address] Name: BHUPINDER VENEGAS Address: home [address] [place] [address] Name: FELIPE FLORES Address: home [address] [place] [address] Name: ARNAV FLORES Address: home [address] [place] [address] Name: IRINA FLORES Address: home [address] [place] [address] Name: RUSLAN FLORES Address: home [address] [place] [address] Name: KAISER PLUNKETT Address: home [address] [place] [address]
--- OUTSIDE RECORDS SUMMARY | 2022-08-17 08:36 | XMS_ITS | Continuity of Care Document ---
Author Name Unknown Organization [facility] Address [address] [place] [address]- Care Team Providers Care Machine Baster Name Role Phone Taras Jasso MD Primary Care Physician Encounter [facility] [place] Date(s): 07/03/20 - 10/31/20 [facility] [address] [place] [id number] Attending Physician: Ralph Mckeon MD Admitting Physician: Ralph Mckeon MD Referring Physician: Taras Jasso MD Allergies, [...] toxoids (Td) 08/03/05 Given 1Result Comment: [12/07/2017] [address]-57 2Result Comment: [12/21/2016] [facility]: 53299-964-51 3Result Comment: [06/10/2015] #3 4Admin Note: per pt 5Admin Note: given in clinic Medications acarbose 50 mg oral tablet 1 tablet = 50 mg, By Mouth, 3 times a day, Take 3 times daily with meals. E11.65, # 90 tablet, 5 Refills, Maintenance, 07/13/20 16:29:00 EDT, Tablet, [facility], [...] 0 Refills, Maintenance, 07/03/19 13:59:00 EDT, Solution, [facility], 160, cm, 05/29/19 13:36:00 EDT, Height, 56.5, kg, 03... Start Date: 07/03/19 Status: Ordered amitriptyline 50 mg oral tablet 1 tablet = 50 mg, By Mouth, Daily at bedtime, # 30 tablet, 5 Refills, Maintenance, 07/22/20 8:03:00EDT, [facility], Partial fill upon patient request if the prescription is for a schedule II opioid drug., 158.02, cm, 07/06/20 6:4... Start Date: 07/22/20 Status: Ordered amoxicillin-clavulanate 875 mg-125 mg oral tablet 1 tablet, By Mouth, Every 12 hours, for 7 days, with food or milk, # 14 tablet, 0 Refills, Acute 11/06/20 11:34:00 EDT, 10/30/20 11:34:00 EDT, Tablet, [facility], Partial fill upon patient request if the prescription is for a sche... Start Date: 10/30/20 Stop Date: 11/06/20 Status: Ordered Baqsimi One Pack 3 mg nasal powder See Instructions, 3 mg Once intrasnasally for severe hypoglycemia, # 2 each, 3 Refills, Soft Stop, 08/28/20 10:36:00 EDT, [facility], Partial [...] 1 Refills, Soft Stop, 11/20/19 11:59:00 EDT, [facility], 160.02, cm, 11/15/19 10:05:00 EDT, [...] 02/25/19 16:55:00 EST, Route to Pharmacy Electronically, [facility], 158, cm, 02/14/19 7:55:00 EST, Height, 61.9, kg, 02/12/19 10:17:00... Start Date: 02/25/19 Status: Ordered montelukast 10 mg oral tablet 10 mg, 1, tablet, By Mouth, Daily in PM, # 90 tablet, Refills 3, Tot. Refills 3, Maintenance, 08/15/19 16:21:00 EDT, Route to Pharmacy Electronically, [facility], 160, cm, 08/15/19 13:45:00 EDT, Height, 56.5, kg, 05/29/19 13:36:00... Start Date: 08/15/19 Status: Ordered [place] 0.65% nasal spray 2 sprays, Nares, Both, 4 times a day, # 1 each, 0 Refills, Maintenance, 10/30/20 11:34:00 EDT, [facility], Partial [...] 0 Refills, Maintenance, 08/27/20 9:45:00 EDT, Capsule, [facility], Partial [...] 11:32:00 EST, Aerosol, Route to Pharmacy Electronically, NCPDP_[id number], [facility], 160, cm, 04/29/19 10:47:00 EST, Height... Start Date: 04/29/19 Status: Ordered Symbicort 160mcg/4.5mcg Inhaler 2, puffs, Inhalation, 2 times a day, Refills 0, Maintenance, 08/27/20 9:43:00 EDT, Aerosol Start Date: 08/27/20 Status: Ordered Topamax 50 mg oral tablet 2 tablet = 100 mg, By Mouth, Daily at bedtime, # 60 tablet, 6 Refills, Maintenance, 08/04/20 11:44:00 EDT, Tablet, [facility], 158.02, cm, 07/06/20 6:49:00 EDT, [...] 6 Refills, Soft Stop, 08/04/20 11:37:00 EDT, [facility], Partial [...] 1resolved after weight loss 2chronic perst 3gyn 18315 5testing negative insulinoma 6likley dumping sydrome 7abnormal GTT ;sugar 36 two hours into test 8sees gi 9normal CT brain 10new 115.3 cm,right per ct scan recent;seeing gynecology soon;they will review 12vit d deficiency;correct [id number] 14per endocrinology monitor 15correction refer GTT; 2 hour glucose 36 16refer GGT 17seeing ortho;pre op 18asma,ama neg/cerulopalsmain wnl,AAT wnl 19Negative hep A antibody positive hep B surface antibody negative antigen negative hep C, normal ferritin 20ukltrasound Social History Social History Type Response Smoking Status Never smoker entered on: 02/20/13 Sex
--- OUTSIDE RECORDS SUMMARY | 2022-08-17 08:36 | XMS_ITS | Continuity of Care Document ---
Author Name Unknown Organization [facility] [place] Address [address] [place] [address]- Care Team Providers Care Bacteriology Teacher Name Role Phone Taras Jasso MD Primary Care Physician Encounter [facility] Date(s): 08/15/19 - 08/22/19 [facility] [place] [address] [place] [address]- [facility] Encounter Diagnosis Asthma(Discharge Diagnosis) - 08/15/19 Chronic sinusitis(Discharge Diagnosis) - 08/15/19 Esophageal reflux (GERD) egd 2018(Discharge Diagnosis) - 08/15/19 Allergic rhinitis(Discharge Diagnosis) - 08/15/19 Attending Physician: Taras Jasso MD Allergies, Adverse Reactions, Alerts Substance Reaction Severity Status Dust Allergy to pollen Active Pollen Active Incruse Ellipta 1 Active 1dizzy Immunizations Given and Recorded Vaccine [...] toxoids (Td) 08/03/05 Given 1Result Comment: [12/07/2017] [address]-26 2Result Comment: [12/21/2016] [facility]: 28737-766-28 3Result Comment: [06/10/2015] #3 4Admin Note: per [...] 07/07/2012:36:00 EDT, Aerosol, Route to Pharmacy Electronically, NCPDP_[id number], [facility], 160, cm, 07/08/19 13:03:00 EDT, Height, 56.... Start Date: 07/08/19 Status: Ordered buPROPion 150 mg/24 hours (XL) oral tablet, extended release TAKE ONE TABLET BY MOUTH EVERY MORNING Start Date: 08/15/19 Status: Ordered Dexilant 60 mg oral delayed release capsule 1 capsule = 60 mg, By Mouth, 2 times a day, # 60 capsule, 5 Refills, Maintenance, 07/30/19 10:21:00EDT, [facility], 160, cm, 07/08/19 13:03:00 EDT, Height, 56.5, kg, 05/29/19 13:36:00 EDT, Dry Weight Start Date: 07/30/19 Status: Ordered eletriptan 40 mg oral tablet 1 tablet = 40 mg, By Mouth, Daily, PRN for migraine headache, # 9 tablet, 5 Refills, Soft Stop, 07/16/19 9:23:00 EDT, Tablet, [facility], she has tried sumatriptan and rizatriptan. if insurance still declines let me know which I c... Start Date: 07/16/19 Stop Date: 01/12/20 Status: Ordered famotidine 20 mg oral tablet 20 mg, 1, tablet, By Mouth, Daily at bedtime, # 30 tablet, Refills 5, Tot. Refills 5, Maintenance, 05/17/19 12:02:00 EDT, Route to Pharmacy Electronically, [facility], 160, cm, 05/16/19 10:27:00 EDT, Height, 62.9, kg, 05/12/19 9:1... Start Date: 05/17/19 Status: Ordered famotidine 40 mg oral tablet 1/2 tablet, By Mouth, Daily at bedtime, famotidine 20mg backordered. please take 1/2 tab daily, # 30 each, 1 Refills, Maintenance, 07/30/19 10:21:00 EDT, [facility], 160, cm, 07/08/19 13:03:00 EDT, [...] 11:32:00 EST, Aerosol, Route to Pharmacy Electronically, NCPDP_[id number], [facility], 160, [...] 07/08/19 13:36:00 EDT, Route to Pharmacy Electronically, NCPDP_[id number], [facility], 160, cm, 07/08/19 13:03:00 ED... Start Date: 07/08/19 Status: Ordered Topamax 50 mg oral tablet 1 tablet = 50 mg, By Mouth, Daily at bedtime, after weaning off zonegran, take 50mg at HS for 2 weeks then increase to 100mg at HS, # 30 tablet, 6 Refills, Maintenance, 07/16/19 10:51:00 EDT, Tablet,[facility], weaning zonegran o... Start Date: [...] perst 3folowed by mental health;recent hospitalization 4gyn 10411 6testing negative insulinoma 7likley dumping sydrome 8abnormal GTT ;sugar 36 two hours into test 9sees gi 10normal CT brain 11new 125.3 cm,right per ct scan recent;seeing gynecology soon;they will review 13vit d deficiency;correct 997052 15per endocrinology monitor 16correction refer GTT; 2 hour glucose 36 17refer GGT 18seeing ortho;pre op 19asma,ama neg/cerulopalsmain wnl,AAT wnl 20Negative hep A antibody positive hep B surface antibody negative antigen negative hep C, normal ferritin 21ukltrasound Diagnosis Diagnosis Type Effective Dates Health Status Clinical Service Informant Asthma Discharge Diagnosis 08/15/19 Chronic sinusitis Discharge Diagnosis 08/15/19 Esophageal reflux (GERD) egd 2017 Discharge Diagnosis 08/15/19 Allergic rhinitis Discharge Diagnosis 08/15/19 Vital Signs Most recent to oldest [Reference Range]: 1 Height 160 cm (08/15/19 1:45 PM) Social History Social History Type Response Smoking Status Never smoker entered on: 02/20/13 Sex
--- OUTSIDE RECORDS SUMMARY | 2022-08-17 08:36 | XMS_ITS | Continuity of Care Document ---
Author Name Unknown Organization [facility] Address [address] [place] [address]- Care Team Providers Care Platform Stapler Name Role Phone Eran COATING LINE WORKER, Sue Dahl Primary Care Physician Encounter [facility] Date(s): 08/15/21 - 09/14/21 [facility] [address] [place] [address]- Allergies, Adverse Reactions, Alerts Substance Reaction Severity Status Dust Allergy to pollen Active Pollen seasonal allergies respiratory symptoms Active Incruse Ellipta 1 lightheaded and migraine Active 1dizzy Immunizations Given and Recorded Vaccine Date Status Refusal Reason SARS-CoV-2 mRNA (ydwwvbe-uxpr-gzaob) vax 05/01/21 Recorded influenza virus vaccine, inactivated [...] toxoids (Td) 08/03/05 Given 1Result Comment: [12/07/2017] [address]-29 2Result Comment: [12/21/2016] [facility]: 05937-222-85 3Result Comment: [06/10/2015] #3 4Admin Note: per pt 5Admin Note: given in clinic Medications acarbose 25 mg oral tablet 1 tablet = 25 mg, By Mouth, 3 times a day, Take 1 tab (plus 1 50mg tab), 3 times daily with meals.,# 270 tablet, 3 Refills, Maintenance, 02/03/21 8:34:00 EST, Tablet, [facility], Partial fill upon patient request if the prescript... Start Date: 02/03/21 Status: Ordered acarbose 50 mg oral tablet 1 tablet = 50 mg, By Mouth, 3 times a day, Take 1 tab (plus 1 25mg tab), 3 times daily with meals.,# 270 tablet, 3 Refills, Maintenance, 02/03/21 8:34:00 EST, Tablet, [facility], Partial fill [...] constipation, 08/23/21 8:22:00 EDT, Route to Pharmacy Electronically,[facility], Partial fill upon patient... Start Date: 08/23/21 Status: Ordered Dexilant 60 mg oral delayed release capsule 1 capsule = 60 mg, By Mouth, 2 times a day, 30 min before meal, # 60 capsule, 5 Refills, Maintenance, 04/16/21 14:29:00 EST, CR Capsule, [facility], Partial fill upon patient request if the prescription is for a schedule II opioi... Start Date: 04/16/21 Status: Ordered Emgality Prefilled Pen 120 mg/mL subcutaneous solution = 120 mg, Subcutaneous Injection, Once, Maintenance Dose, # 1 kit, 6 Refills, Soft Stop, 06/29/21 10:09:00 EDT, [facility], Partial fill upon patient request if the prescription is for a schedule II opioid drug., 158, cm, 06/29/21... Start Date: 06/29/21 Status: Ordered EPINEPHrine 1 mg/mL injectable solution 0.3 mL = 0.3 mg, Intramuscular, Once, # 1 mL, 1 Refills, Soft Stop, 03/08/21 15:07:00 EST, Solution, [facility], Partial fill upon [...] 05/24/21 11:12:00 EDT, Route to Pharmacy Electronically, [facility], 158, cm, 05/14/21 7:52:00 EST, [...] 04/23/21 12:32:00 EST, Route to Pharmacy Electronically, [facility], 158, cm, 04/09/21 8:13:00 EST, [...] 6 Refills, Maintenance, 12/10/20 12:36:00 EDT,DIS Tablet, [facility], has t... Start Date: 12/10/20 Stop Date: 07/08/21 Status: Ordered Readi-Cat 2 oral suspension See Instructions, Dispense : 2 Bottles 450 ml each Dx: Hernia, # 900 mL, 0 Refills, Maintenance, 09/07/21 15:24:00 EDT, [id number], Partial fill upon patient request if [...] 1resolved after weight loss 2chronic perst 3gyn 56300 5testing negative insulinoma 6likley dumping sydrome 7abnormal GTT ;sugar 36 two hours into test 8sees gi 9normal CT brain 10new 115.3 cm,right per ct scan recent;seeing gynecology soon;they will review 12vit d deficiency;correct 966420 14per endocrinology monitor 15correction refer GTT; 2 hour glucose 36 16refer GGT 17seeing ortho;pre op 18asma,ama neg/cerulopalsmain wnl,AAT wnl 19Negative hep A antibody positive hep B surface antibody negative antigen negative hep C, normal ferritin 20ukltrasound Social History Social History Type Response Smoking Status Never smoker entered on: 02/20/13 Sex
--- OUTSIDE RECORDS SUMMARY | 2022-08-17 08:36 | XMS_ITS | Continuity of Care Document ---
Author Name Unknown Organization [facility] Address [address] [place] [address]- Care Team Providers Care Grinder And Plater Name Role Phone Louisa LANDRUM, Taras Fuentes Primary Care Physician [place] [facility] [place] 05/26/19 [facility] [address] [place] [address]- [facility] Attending Physician: Konrad Curtis Admitting Physician: [...] toxoids (Td) 08/03/05 Given 1Result Comment: [12/07/2017] [id number] 2Result Comment: [12/21/2016] [facility]: [id number] 3Result Comment: [06/10/2015] #3 4Admin Note: per [...] 05/17/19 12:02:00 EDT, Route to Pharmacy Electronically, [facility], 160, cm, 05/16/19 10:27:00 [...] Refills, Soft Stop, 05/23/19 9:23:00 EDT, Tablet, [facility], 160, cm, 05/16/19 10:27:00 EDT, Height, 62.9, kg, 05/12/19 9:16:00 EDT, Dry Weight Start Date: 05/23/19 Status: Ordered ProAir HFA 90 mcg/inh inhalation aerosol with adapter 2, puffs, Inhalation, Every 4 hours, PRN, # 8.5 Gm, Refills 2, Tot. Refills 2, Maintenance, 04/29/19 11:32:00 EST, Aerosol, Route to Pharmacy Electronically, NCPDP_[id number], [facility] - [...] 5 Refills, Maintenance, 04/12/19 12:59:00 EST, Capsule, [facility] - [...] perst 3folowed by mental health;recent hospitalization 4gyn 01086 6testing negative insulinoma 7likley dumping sydrome 8abnormal GTT ;sugar 36 two hours into test 9sees gi 10normal CT brain 11new 125.3 cm,right per ct scan recent;seeing gynecology soon;they will review 13vit d deficiency;correct 474328 15per endocrinology monitor 16correction refer GTT; 2 hour glucose 36 17refer GGT 18seeing ortho;pre op 19asma,ama neg/cerulopalsmain wnl,AAT wnl 20Negative hep A antibody positive hep B surface antibody negative antigen negative hep C, normal ferritin 21ukltrasound Social History Social History Type Response Smoking Status Never smoker entered on: 02/20/13 Sex
--- OUTSIDE RECORDS SUMMARY | 2022-08-17 08:36 | XMS_ITS | Continuity of Care Document ---
Author Name Unknown Organization [facility] Address [address] [place] [address]- Care Team Providers Care Web Content Editor Name Role Phone Eran Sue JOHNSON Primary Care Physician En[place] [facility] [place] Date(s): 06/22/22 - 07/22/22 [facility] [address] [place] [address]- [place] Allergies, Adverse Reactions, Alerts Substance Reaction Severity Status Dust Allergy to pollen Active Pollen seasonal allergies respiratory symptoms Active Incruse Ellipta 1 lightheaded and migraine Active 1dizzy Immunizations Given and Recorded Vaccine Date Status Refusal Reason [id number] 12y+ bivalent booster vax 1 12/24/21 Given [...] vaccine, inactivated 02/08/11 Give n SARS-CoV-2 mRNA (vwvdujc-afyy-ehqvw) vax 05/01/21 Recorded zoster vaccine, inactivated 11/03/20 [...] tetanus-diphtheria toxoids (Td) 08/03/05 Given 1Result Comment: [id number] 2Result Comment: 29738-571-64 3Result Comment: [12/07/2017] [address]-93 4Result Comment: [12/21/2016] [facility]: 10884-383-14 5Result Comment: [06/10/2015] #3 6Admin Note: per pt 7Admin Note: given in clinic Medications acetaminophen 500 mg oral tablet 2 tablet = 1,000 mg, By Mouth, Every 6 hours, PRN as needed for fever, # 200 tablet, 0 Refills, Maintenance, 12/03/21 10:17:00 EDT, Tablet, [facility], Partial fill upon patient request if the prescription is for a schedule II opi... Start Date: 12/03/21 Status: Ordered Albuterol (Eqv-ProAir HFA) 90 mcg/inh inhalation aerosol 2 puffs, Inhalation, Every 4 hours, PRN NEEDED FOR WHEEZING, # 8.5 Gm, 5 Refills, Maintenance, 03/09/22 11:21:00 EST, [facility], 17, INHALE TWO PUFFS BY MOUTH [...] 6 Refills, Maintenance, 11/03/21 8:23:00 EDT, Tablet, [facility], 2 tablet By Mouth 2 times a day, 158, cm, 11/03/21 8:01:00 EDT,Height, 71.5, kg, 09/01/21 16:21:00 EDT, Dry Weight Start Date: 11/03/21 Status: Ordered Carafate 1 gm/10 ml oral suspension 10 mL = 1 Gm, By Mouth, 3 times a day before meals and bedtime, # 1,200 mL, 5 Refills, Maintenance,04/29/22 9:16:00 EST, [id number], Partial fill upon patient request if the prescription is for a schedule II opioid drug., 158, cm, 02... Start Date: 04/29/22 Status: Ordered cetirizine 10 mg oral tablet 1 tablet, By Mouth, Daily, # 30 tablet, 5 Refills, Maintenance, 06/03/22 11:40:00 EDT, [facility], 158, cm, 05/25/22 13:59:00 EDT, Height, [...] Refills, Maintenance, 05/30/22 7:57:00 EDT, CR Capsule, [facility], Partial fill upon patient request if the prescription is for a schedule II opioid... Start Date: 05/30/22 Status: Ordered Emgality Prefilled Pen 120 mg/mL subcutaneous solution = 120 mg, Subcutaneous Injection, Once, Maintenance Dose, # 3 kit, 2 Refills, Soft Stop, 07/14/22 10:04:00 EDT, [facility], requesting 3 month supply for cheaper martinez. with 2 refills. had follow up just now, doing great, albertina Baca... Start Date: 07/14/22 Status: Ordered EPINEPHrine 1 mg/mL injectable solution 0.3 mL = 0.3 mg, Intramuscular, Once, # 1 mL, 1 Refills, Soft Stop, 03/08/21 15:07:00 EST, Solution, [facility], Partial fill upon patient request if the prescription is for a schedule II opioid drug., 158, cm, 03/08/21 12:18:00 E... Start Date: 03/08/21 Status: Ordered famotidine 40 mg oral tablet 1 tablet = 40 mg, By Mouth, 2 times a day, # 60 tablet, 6 Refills, Maintenance, 01/31/22 14:05:00 EST, Suspension, [facility], Partial fill upon patient request if the prescription is for a schedule II opioid drug., 163, cm, 01/18... Start Date: 01/31/22 Stop Date: 08/29/22 Status: Ordered Fiber Choice 1.5 g oral tablet, chewable 1 tablet = 1.5 Gm, Chew, 3 times a day, # 90 tablet, 0 Refills, Maintenance, 04/09/22 15:16:00 EST,Chew Tablet, [id number], Partial fill upon patient request if the [...] Refills, Maintenance, 04/09/22 15:16:00 EST, REC Powder, [facility] #[id number], Partial fill upon patient request if the prescription is for a schedule II opioid drug., 17 Gm... Start Date: 04/09/22 Status: Ordered montelukast 10 mg oral tablet 1, tablet, By Mouth, Daily in PM, # 90 tablet, Refills 1, Tot. Refills 1, Maintenance, 11/14/21 11:28:00 EDT, Route to Pharmacy Electronically, [facility], 158, cm, 11/03/21 8:01:00 EDT, Height, 71.5, kg, 09/01/21 16:21:00 EDT, Start Date: 11/14/21 Status: Ordered Nurtec ODT 75 mg oral tablet, disintegrating See Instructions, TAKE ONE TABLET DAILY NEEDED FOR migraines, DO NOT EXCEED ONE TABLET IN 24 HOURS, # 8 tablet, 6 Refills, Maintenance, 12/28/21 15:14:00 EDT, [facility], 163,cm, 12/24/21 8:20:00 EDT, Height, 67, [...] 0 Refills, Maintenance, 04/09/22 15:17:00 EST, Capsule, [facility] #[id number], Partial fill upon patient request if the prescription is for a schedule II opioid drug., 1 capsule By Mouth Daily in P... Start Date: 04/09/22 Status: Ordered Symbicort 160mcg/4.5mcg Inhaler 2, puffs, Inhalation, 2 times a day, rinse mouth and throat after use, # 10.2 Gm, Refills 2, Tot. Refills 2, Maintenance, 06/10/22 20:48:00 EDT, Route to Pharmacy Electronically, [id number]_[id number], [facility], 158, cm, 06/07/22 10:... Start Date: [...] Active Vitamin D deficiency Confirmed Active 1gyn 04126 3testing negative insulinoma 4likley dumping sydrome 5abnormal GTT ;sugar 36 two hours into test 6normal CT brain 7new 8resolved after weight loss 9chronic perst 105.3 cm,right per ct scan recent;seeing gynecology soon;they will review 11vit d deficiency;correct 518131 13per endocrinology monitor 14correction refer GTT; 2 [...] Associate Professional Member Role: PCP Address: Address: [address] [place] [address]- Name: Andria Guadalupe RN Position: [facility] [...] Persons Name: KHUSHI CUNNINGHAM Address: home [address] [place] [address] Name: BHUPINDER VENEGAS Address: home [address] [place] [address] Name: FELIPE FLORES Address: home [address] [place] [address] Name: ARNAV FLORES Address: home [address] [place] [address] Name: IRINA FLORES Address: home [address] [place] [address] Name: RUSLAN FLORES Address: home [address] [place] [address] Name: KAISER PLUNKETT Address: home [address] [place] [address]
--- OUTSIDE RECORDS SUMMARY | 2022-08-17 08:36 | XMS_ITS | Continuity of Care Document ---
Author Name Unknown Organization [facility] Address [address] [place] [address]- Care Team Providers Care Cyber Security Consultant Name Role Phone Eran BONE DRIER, Sue Dahl Primary Care Physician Encounter [facility] [place] Date(s): 02/25/22 - 03/04/22 [facility] [address] [place] [address]- Encounter Diagnosis History of COVID-19(Discharge Diagnosis) - 02/25/22 Attending Physician: Not on Staff, Attending MD Allergies, Adverse Reactions, Alerts Substance Reaction Severity Status Dust Allergy to pollen Active Pollen seasonal allergies respiratory symptoms Active Incruse Ellipta 1 lightheaded and migraine Active 1dizzy Immunizations Given and Recorded Vaccine Date Status Refusal Reason [id number] 12y+ bivalent booster vax 1 12/24/21 Given [...] vaccine, inactivated 02/08/11 Give n SARS-CoV-2 mRNA (ibaftuw-rcbp-feuzz) vax 05/01/21 Recorded zoster vaccine, inactivated 11/03/20 [...] tetanus-diphtheria toxoids (Td) 08/03/05 Given 1Result Comment: [id number] 2Result Comment: [id number] 3Result Comment: [12/07/2017] [address]-00 4Result Comment: [12/21/2016] [facility]: 97942-205-15 5Result Comment: [06/10/2015] #3 6Admin Note: per pt 7Admin Note: given in clinic Medications acarbose 25 mg oral tablet See Instructions, 1 tablet with 50 mg (total 75 mg) By Mouth before lunch, # 30 each, 11 Refills, Maintenance, 11/03/21 8:24:00 EDT, Tablet, [facility], 158, cm, 11/03/21 8:01:00EDT, Height, 71.5, kg, 09/01/21 16:21:00 EDT, Dry W... Start Date: 11/03/21 Status: Ordered acetaminophen 500 mg oral tablet 2 tablet = 1,000 mg, By Mouth, Every 6 hours, PRN as needed for fever, # 200 tablet, 0 Refills, Maintenance, 12/03/21 10:17:00 EDT, Tablet, [facility], Partial fill upon patient request if the prescription is for a schedule II opi... Start Date: 12/03/21 Status: Ordered Albuterol (Eqv-ProAir HFA) 90 mcg/inh inhalation aerosol 2 puffs, Inhalation, Every 4 hours, PRN NEEDED FOR WHEEZING, # 8.5 Gm, 1 Refills, Maintenance, 12/03/21 14:16:00 EDT, [facility], 18, INHALE TWO PUFFS EVERY 4 HOURS NEEDED FOR WHEEZING, 163, cm, 12/03/21 9:39:00 EDT, Height,... Start Date: 12/03/21 Status: Ordered calcium (as citrate)-vitamin D 315 mg-250 intl units oral tablet 2 tablet, By Mouth, 2 times a day, # 120 tablet, 6 Refills, Maintenance, 11/03/21 8:23:00 EDT, Tablet, [facility], 2 tablet By Mouth [...] Refills, Maintenance, 11/22/21 9:49:00 EDT, CR Capsule, [facility], Partial fill upon patient request if the prescription is for a schedule II opioid... Start Date: 11/22/21 Status: Ordered Emgality Prefilled Pen 120 mg/mL subcutaneous solution = 120 mg, Subcutaneous Injection, Once, Maintenance Dose, # 1 kit, 6 Refills, Soft Stop, 02/08/22 9:15:00 EST, [facility], Partial fill [...] 6 Refills, Maintenance, 01/31/22 14:05:00 EST, Suspension, [facility], Partial fill [...] 11/14/21 11:28:00 EDT, Route to Pharmacy Electronically, [facility], 158, cm, 11/03/21 8:01:00 EDT, Height, 71.5, kg, 09/01/21 16:21:00 EDT, Start Date: 11/14/21 Status: Ordered Nurtec ODT 75 mg oral tablet, disintegrating See Instructions, TAKE ONE TABLET DAILY NEEDED FOR migraines, DO NOT EXCEED ONE TABLET IN 24 HOURS, # 8 tablet, 6 Refills, Maintenance, 12/28/21 15:14:00 EDT, [facility], 163,cm, 12/24/21 8:20:00 EDT, [...] 11/23/21 19:57:00 EDT, Route to Pharmacy Electronically, NCPDP_[id number], [facility], 158, cm, 11/03/21 8:0... [...] 5 Refills, Maintenance, 12/10/21 9:44:00 EDT, Tablet, [facility], [...] gynecology soon;they will review 11vit d deficiency;correct [id number] 13per endocrinology monitor 14correction refer GTT; 2 hour glucose 36 15refer GGT 16seeing ortho;pre op 17asma,ama neg/cerulopalsmain wnl,AAT wnl 18Negative hep A antibody positive hep B surface antibody negative antigen negative hep C, normal ferritin 19ukltrasound Diagnosis Diagnosis Type Effective Dates Health Status Cl inical Service Informant History of COVID-19 Discharge Diagnosis 02/25/22 Vital Signs Most recent to oldest [Reference Range]: 1 Height 163 cm (02/25/22 9:22 AM) Weight 69.3 kg (02/25/22 9:22 AM) Oxygen Saturation [94-100 %] 98 % (02/25/22 9:22 AM) Pulse Rate [55-90 bpm] 50 bpm *L* (02/25/22 9:22 AM) Body Mass Index [18.5-24.99 kg/m2] 26.08 kg/m2 *H* (02/25/22 9:22 AM) Blood Pressure [90-138/55-84 mm Hg] 102/ 72mm Hg (02/25/22 9:22 AM) Respiratory Rate [16-30 br/min] 20 br/mi n (02/25/22 9:22 AM) Temperature [96.8-100.4 DegF] 97.8 DegF (02/25/22 9:22 AM) Mode of Delivery (Oxygen) Room air (02/25/22 9:22 AM) Blood pressure sites Arm, right (02/25/22 9:22 AM) Temperature Route Oral (02/25/22 9:22 AM) Weight Obtained Via Standing scale (02/25/22 9:22 AM) Social History Social History Type Response Smoking Status Never smoker entered on: 02/20/13 Sex Patient Care team information Care Team Personnel Name: Caitlyn Mcgee RN Position: [facility] RN Member Role: Primary Care Nurse Name: Sue Barillas NP Position: [facility] PCO Associate Professional Member Role: PCP Address: Address: [address] [place] [address]- Name: Andria Guadalupe RN Position: [facility] SN RN Member Role: Primary Care Nurse Name: Liz Martin RN Position: S RN Member Role: Primary Care Nurse Name: Ambreen Mcmahon RN Position: S RN Member Role: Primary Care Nurse Name: Irais Grijalva RN Position: [facility] RN Member Role: Primary Care Nurse Name: Autumn Martinez RN Position: [facility] SN RN Member Role: Primary Care Nurse Name: Concha Mckinley RN Position: [facility] RN Member Role: Primary Care Nurse Name: Liz English RN Position: [facility] RN Member Role: Primary Care Nurse Name: Dora Williamson RN Position: [facility] RN Member Role: Primary Care Nurse Care Team Related Persons Name: KHUSHI CUNNINGHAM Address: home [address] [place] [address] Name: BHUPINDER VENEGAS Address: home [address] [place] [address] Name: FELIPE FLORES Address: home [address] [place] [address] Name: ARNAV FLORES Address: [address] [place] [address] Name: IRINA FLORES Address: [address] [place] [address] Name: RUSLAN FLORES Address: home [address] [place] [address] Name: KAISER PLUNKETT Address: home [address] [place] [address]
--- OUTSIDE RECORDS SUMMARY | 2022-08-17 08:36 | XMS_ITS | Continuity of Care Document ---
Author Name Unknown Organization [facility] Address [address], [address] Floor, [address] [place] [address]- Care Team Providers Care Telescope Maintenance Name Role Phone Louisa LANDRUM, Taras Fuentes Primary Care Physician [place] [facility] [place]/19 [facility] [address], [address], [address] [place] [address]- [facility] Attending Physician: Konrad Curtis Admitting Physician: AdmtrKonrad [...] toxoids (Td) 08/03/05 Given 1Result Comment: [12/07/2017] [address]-78 2Result Comment: [12/21/2016] [facility]: 48012-911-59 3Result Comment: [06/10/2015] #3 4Admin Note: per [...] 07/07/2012:36:00 EDT, Aerosol, Route to Pharmacy Electronically, NCPDP_[id number], [facility], 160, cm, [...] 60 capsule, 5 Refills, Maintenance, 07/30/19 10:21:00EDT, [facility], 160, cm, 07/08/19 13:03:00 EDT, Height, 56.5, kg, 05/29/19 13:36:00 EDT, Dry Weight Start Date: 07/30/19 Status: Ordered eletriptan 40 mg oral tablet 1 tablet = 40 mg, By Mouth, Daily, PRN for migraine headache, # 9 tablet, 5 Refills, Soft Stop, 07/16/19 9:23:00 EDT, Tablet, [facility], she has tried sumatriptan [...] Refills, Maintenance, 11/15/19 10:29:00 EDT, REC Powder, [facility], 240 mL By Mouth Every [...] 11:32:00 EST, Aerosol, Route to Pharmacy Electronically, NCPDP_[id number], [facility], [...] 07/08/19 13:36:00 EDT, Route to Pharmacy Electronically, NCPDP_[id number], [facility], 160, cm, 07/08/19 13:03:00 ED... Start Date: 07/08/19 Status: Ordered Topamax 50 mg oral tablet 2 tablet = 100 mg, By Mouth, Daily at bedtime, # 60 tablet, 6 Refills, Maintenance, 11/04/19 11:08:00 EDT, Tablet, [facility], weaning [...] Refills, Soft Stop, 11/25/19 21:26:00 EDT, Tablet, [facility], 160.02, cm, [...] perst 3folowed by mental health;recent hospitalization 4gyn 5[address]01 6testing negative insulinoma 7likley dumping sydrome 8abnormal GTT ;sugar 36 two hours into test 9sees gi 10normal CT brain 11new 125.3 cm,right per ct scan recent;seeing gynecology soon;they will review 13vit d deficiency;correct 459454 15per endocrinology monitor 16correction refer GTT; 2 hour glucose 36 17refer GGT 18seeing ortho;pre op 19asma,ama neg/cerulopalsmain wnl,AAT wnl 20Negative hep A antibody positive hep B surface antibody negative antigen negative hep C, normal ferritin 21ukltrasound Social History Social History Type Response Smoking Status Never smoker entered on: 02/20/13 Sex
--- OUTSIDE RECORDS SUMMARY | 2022-08-17 08:36 | XMS_ITS | Continuity of Care Document ---
Author Name Unknown Organization [facility] [place] Address [address] [place] [address]- Care Team Providers Care Contract Clerk Name Role Phone Louisa LANDRUM, Taras Fuentes Primary Care Physician Encounter [facility] Date(s): 10/12/20 - 11/11/20 [facility] [address] [address]- Allergies, Adverse Reactions, Alerts Substance Reaction Severity [...] toxoids (Td) 08/03/05 Given 1Result Comment: [12/07/2017] [address]-36 2Result Comment: [12/21/2016] [facility]: 03669-546-65 3Result Comment: [06/10/2015] #3 4Admin Note: per pt 5Admin Note: given in clinic Medications acarbose 50 mg oral tablet 1 tablet = 50 mg, By Mouth, 3 times a day, Take 3 times daily with meals. E11.65, # 90 tablet, 5 Refills, Maintenance, 07/13/20 16:29:00 EDT, Tablet, [facility], Partial fill upon [...] 30 tablet, 5 Refills, Maintenance, 07/22/20 8:03:00EDT, [facility], Partial fill upon patient request if the prescription is for a schedule II opioid drug., 158.02, cm, 07/06/20 6:4... Start Date: 07/22/20 Status: Ordered Baqsimi One Pack 3 mg nasal powder See Instructions, 3 mg Once intrasnasally for severe hypoglycemia, # 2 each, 3 Refills, Soft Stop, 08/28/20 10:36:00 EDT, [facility], Partial fill upon [...] 5 Refills, Maintenance, 11/06/20 10:28:00 EDT, Tablet, [facility], Replaces loratidine, 158.02, cm, [...] 0 Refills, Maintenance, 11/03/20 7:49:00 EDT, Tablet, [facility], Partial fill upon [...] 05/29/19 13:36:00... Start Date: 08/15/19 Status: Ordered Towner 0.65% nasal spray 2 sprays, Nares, Both, 4 times a day, # 1 each, 0 Refills, Maintenance, 10/30/20 11:34:00 EDT, [facility], Partial fill upon [...] 0 Refills, Maintenance, 08/27/20 9:45:00 EDT, Capsule, [facility], Partial fill upon patient request if the prescription is for a schedule II opioid drug., 158.02, cm, 08/27/20 9:2... Start Date: 08/27/20 Stop Date: 09/26/20 Status: Ordered ProAir HFA 90 mcg/inh inhalation aerosol with adapter 2, puffs, Inhalation, Every 4 hours, PRN, # 8.5 Gm, Refills 2, Tot. Refills 2, Maintenance, 04/29/19 11:32:00 EST, Aerosol, Route to Pharmacy Electronically, NCPDP_[id number], [facility], 160, [...] 6 Refills, Maintenance, 08/04/20 11:44:00 EDT, Tablet, [facility], 158.02, cm, 07/06/20 6:49:00 [...] 6 Refills, Soft Stop, 08/04/20 11:37:00 EDT, [facility], Partial fill upon [...] 1resolved after weight loss 2chronic perst 3gyn 39856 5testing negative insulinoma 6likley dumping sydrome 7abnormal GTT ;sugar 36 two hours into test 8sees gi 9normal CT brain 10new 115.3 cm,right per ct scan recent;seeing gynecology soon;they will review 12vit d deficiency;correct [id number] 14per endocrinology monitor 15correction refer GTT; 2 hour glucose 36 16refer GGT 17seeing ortho;pre op 18asma,ama neg/cerulopalsmain wnl,AAT wnl 19Negative hep A antibody positive hep B surface antibody negative antigen negative hep C, normal ferritin 20ukltrasound Social History Social History Type Response Smoking Status Never smoker entered on: 02/20/13 Sex
--- OUTSIDE RECORDS SUMMARY | 2022-08-17 08:36 | XMS_ITS | Continuity of Care Document ---
Author Name Unknown Organization [facility] Address [address] [facility], [address] Floor, [address] [place] [address]- Care Team Providers Care Consumer Loan Officer Name Role Phone Taras Jasso MD Primary Care Physician Encounter [facility] [place] Date(s): 04/12/19 - 04/19/19 [facility] [address] [facility], 3rd Floor, [address] [place] [address]- [facility] Attending Physician: Yvon Alejandre MD Referring [...] Give n influenza virus vaccine, inactivated 01/22/15 Ojse Carlos rded influenza virus vaccine, inactivated 12/13/13 [...] toxoids (Td) 08/03/05 Given 1Result Comment: [12/07/2017] [id number] 2Result Comment: [12/21/2016] [facility]: [id number] 3Result Comment: [06/10/2015] #3 4Admin Note: per [...] 02/25/19 16:55:00 EST, Route to Pharmacy Electronically, [facility], 158, [...] 5 Refills, Maintenance, 04/12/19 12:59:00 EST, Capsule, [facility], 160, cm, 04/11/19 [...] perst 3folowed by mental health;recent hospitalization 4gyn 78330 6testing negative insulinoma 7likley dumping sydrome 8abnormal GTT ;sugar 36 two hours into test 9sees gi 10normal CT brain 11new 125.3 cm,right per ct scan recent;seeing gynecology soon;they will review 13vit d deficiency;correct [id number] 15per endocrinology monitor 16correction refer GTT; 2 hour glucose 36 17refer GGT 18seeing ortho;pre op 19asma,ama neg/cerulopalsmain wnl,AAT wnl 20Negative hep A antibody positive hep B surface antibody negative antigen negative hep C, normal ferritin 21ukltrasound Social History Social History Type Response Smoking Status Never smoker entered on: 02/20/13 Sex
--- OUTSIDE RECORDS SUMMARY | 2022-08-17 08:36 | XMS_ITS | Continuity of Care Document ---
Author Name Unknown Organization [facility] Address [address] [place] [address]- Care Team Providers Care Senior Director Marketing Name Role Phone Eran Sue JOHNSON Primary Care Physician Encounter [facility] Date(s): 07/14/22 - 08/13/22 [facility] [address] [place] [address]- Allergies, Adverse Reactions, Alerts Substance Reaction Severity Status Dust Allergy to pollen Active Pollen seasonal allergies respiratory symptoms Active Incruse Ellipta 1 lightheaded and migraine Active 1dizzy Immunizations Given and Recorded Vaccine Date Status Refusal Reason tetanus-diphtheria toxoids (Td) 1 07/28/22 Given tetanus-diphtheria toxoids (Td) 08/03/05 Given pneumococcal 20-valent conjugate vaccine 2 07/28/22 Given [id number] 12y+ bivalent booster vax 3 12/24/21 Given [...] vaccine, inactivated 02/08/11 Give n SARS-CoV-2 mRNA (djysxtv-noru-xisxl) vax 05/01/21 Recorded zoster vaccine, inactivated 11/03/20 [...] (IM) (oldterm) 9 12/25/07 Given 1Result Comment: [id number] 2Result Comment: [id number] 3Result Comment: [id number] 4Result Comment: [id number] 5Result Comment: [12/07/2017] [address]-40 6Result Comment: [12/21/2016] [facility]: 33464-686-35 7Result Comment: [06/10/2015] #3 8Admin Note: per pt 9Admin Note: given in clinic Medications acetaminophen 500 mg oral tablet 2 tablet = 1,000 mg, By Mouth, Every 6 hours, PRN as needed for fever, # 200 tablet, 0 Refills, Maintenance, 12/03/21 10:17:00 EDT, Tablet, [facility], Partial fill upon patient request if the prescription is for a schedule II opi... Start Date: 12/03/21 Status: Ordered Albuterol (Eqv-ProAir HFA) 90 mcg/inh inhalation aerosol 2 puffs, Inhalation, Every 4 hours, PRN NEEDED FOR WHEEZING, # 8.5 Gm, 5 Refills, Maintenance, 03/09/22 11:21:00 EST, [facility], 17, INHALE [...] 6 Refills, Maintenance, 11/03/21 8:23:00 EDT, Tablet, [facility], 2 tablet By Mouth 2 times a day, 158, cm, 11/03/21 8:01:00 EDT,Height, 71.5, kg, 09/01/21 16:21:00 EDT, Dry Weight Start Date: 11/03/21 Status: Ordered cetirizine 10 mg oral tablet 1 tablet, By Mouth, Daily, # 30 tablet, 5 Refills, Maintenance, 07/28/22 13:34:00 EDT, [facility], 158, cm, [...] Refills, Maintenance, 05/30/22 7:57:00 EDT, CR Capsule, [facility], Partial fill upon patient request if the prescription is for a schedule II opioid... Start Date: 05/30/22 Status: Ordered Emgality Prefilled Pen 120 mg/mL subcutaneous solution = 120 mg, Subcutaneous Injection, Once, Maintenance Dose, # 3 kit, 2 Refills, Soft Stop, 07/14/22 10:04:00 EDT, [facility], requesting 3 month supply for cheaper martinez. with 2 refills. had follow up just now, doing great, albertina Baca... Start Date: 07/14/22 Status: Ordered EPINEPHrine 1 mg/mL injectable solution 0.3 mL = 0.3 mg, Intramuscular, Once, # 1 mL, 1 Refills, Soft Stop, 03/08/21 15:07:00 EST, Solution, [facility], Partial fill upon patient request if the prescription is for a schedule II opioid drug., 158, cm, 03/08/21 12:18:00 E... Start Date: 03/08/21 Status: Ordered famotidine 40 mg oral tablet 1 tablet = 40 mg, By Mouth, 2 times a day, # 60 tablet, 6 Refills, Maintenance, 08/08/22 12:33:00 EDT, Suspension, [id number], Partial fill upon patient request if the prescription is for a schedule II opioid drug., 160, cm, 08/03/22... Start Date: 08/08/22 Stop Date: 03/06/23 Status: Ordered famotidine 40 mg oral tablet 1 tablet = 40 mg, By Mouth, 2 times a day, for 30 days, # 60 tablet, 6 Refills, Hard Stop 08/29/22 14:05:00 EDT, 01/31/22 14:05:00 EST, Suspension, [facility], Partial fill upon patient request if the prescription is for a schedul... Start Date: 01/31/22 Stop Date: 08/29/22 Status: Ordered Fiber Choice 1.5 g oral tablet, chewable 1 tablet = 1.5 Gm, Chew, 3 times a day, # 90 tablet, 0 Refills, Maintenance, 04/09/22 15:16:00 EST,Chew Tablet, [facility] #[id number], Partial fill upon patient request if the [...] Refills, Maintenance, 04/09/22 15:16:00 EST, REC Powder, [facility] #[id number], Partial fill upon patient request if the prescription is for a schedule II opioid drug., 17 Gm... Start Date: 04/09/22 Status: Ordered montelukast 10 mg oral tablet 1, tablet, By Mouth, Daily in PM, # 90 tablet, Refills 1, Tot. Refills 1, Maintenance, 11/14/21 11:28:00 EDT, Route to Pharmacy Electronically, [facility], 158, cm, 11/03/21 8:01:00 EDT, Height, 71.5, kg, 09/01/21 16:21:00 EDT, Start Date: 11/14/21 Status: Ordered Nurtec ODT 75 mg oral tablet, disintegrating See Instructions, TAKE ONE TABLET DAILY NEEDED FOR migraines, DO NOT EXCEED ONE TABLET IN 24 HOURS, # 8 tablet, 6 Refills, Maintenance, 12/28/21 15:14:00 EDT, [facility], 163,cm, 12/24/21 [...] 0 Refills, Maintenance, 04/09/22 15:17:00 EST, Capsule, [facility] #[id number], Partial fill upon patient request if the prescription is for a schedule II opioid drug., 1 capsule By Mouth Daily in P... Start Date: 04/09/22 Status: Ordered Symbicort 160mcg/4.5mcg Inhaler 2, puffs, Inhalation, 2 times a day, rinse mouth and throat after use, # 10.2 Gm, Refills 2, Tot. Refills 2, Maintenance, 06/10/22 20:48:00 EDT, Route to Pharmacy Electronically, [id number]_[id number], [facility], 158, cm, [...] Active Vitamin D deficiency Confirmed Active 1gyn 14981 3testing negative insulinoma 4likley dumping sydrome 5abnormal GTT ;sugar 36 two hours into test 6normal CT brain 7new 8resolved after weight loss 9chronic perst 105.3 cm,right per ct scan recent;seeing gynecology soon;they will review 11vit d deficiency;correct [id number] 13per endocrinology monitor 14correction refer GTT; 2 hour glucose 36 15refer GGT 16seeing ortho;pre op 17asma,ama neg/cerulopalsmain wnl,AAT wnl 18Negative hep A antibody positive hep B surface antibody negative antigen negative hep C, normal ferritin 19ukltrasound Social History Social History Type Response Smoking Status Never smoker entered on: 02/20/13 Sex Patient Care team information Care Team Personnel Name: Caitlyn Mcgee RN Position: [facility] RN Member Role: Primary Care Nurse Name: Sue Barillas NP Position: [facility] PCO Associate Professional Member Role: PCP Address: Address: [address] [place] [id number] Name: Andria Guadalupe RN Position: [facility] SN RN Member Role: Primary Care Nurse Name: Liz Martin RN Position: [facility] RN Member Role: Primary Care Nurse Name: Ambreen Mcmahon RN Position: [facility] RN Member Role: Primary Care Nurse Name: Irais Grijalva RN Position: [facility] RN Member Role: Primary Care Nurse Name: Autumn Martinez RN Position: [facility] SN RN Member Role: Primary Care Nurse Name: Liz English RN Position: [facility] RN Member Role: Primary Care Nurse Name: Dora Williamson RN Position: [facility] RN Member Role: Primary Care Nurse Care Team Related Persons Name: KHUSHI CUNNINGHAM Address: home [address] [place] [address] Name: BHUPINDER VENEGAS Address: [address] [place] [address] Name: FELIPE FLORES Address: home [address] [place] [address] Name: ARNAV FLORES Address: home [address] [place] [address] Name: IRINA FLORES Address: home [address] [place] [address] Name: RUSLAN FLORES Address: home [address] [place] [address] Name: KAISER PLUNKETT Address: home [address] [place] [address]
--- OUTSIDE RECORDS SUMMARY | 2022-08-17 08:36 | XMS_ITS | Continuity of Care Document ---
Author Name Unknown Organization [facility] Address [address] [place] [address]- Care Team Providers Care Business Supervisor Name Role Phone Louisa LANDRUM, Taras Fuentes Primary Care Physician [facility]counter [facility] Date(s): 04/20/20 - 05/20/20 [facility] [address] [place] [address] Allergies, Adverse Reactions, [...] toxoids (Td) 08/03/05 Given 1Result Comment: [12/07/2017] [address]-10 2Result Comment: [12/21/2016] [facility]: 75244-524-70 3Result Comment: [06/10/2015] #3 4Admin Note: per [...] 60 capsule, 5 Refills, Maintenance, 05/07/20 15:54:00EST, [facility], 160.02, cm, 05/01/20 9:18:00 [...] 11:32:00 EST, Aerosol, Route to Pharmacy Electronically, NCPDP_[id number], [facility], 160, cm, 04/29/19 10:47:00 EST, Height... Start Date: 04/29/19 Status: Ordered Topamax 50 mg oral tablet See Instructions, take 1 tab in am and 2 tab at bedtime. If AM dose causes bad sedation, add to HS dose., # 90 tablet, 6 Refills, Maintenance, 03/12/20 11:09:00 EST, Tablet, [facility], weaning zonegran off by 25mg every 2 days t... Start Date: 03/12/20 Status: Ordered ubrogepant 100 mg oral tablet 1 tablet = 100 mg, By Mouth, Daily, # 10 tablet, 6 Refills, Soft Stop, 03/12/20 11:04:00 EST, [facility], Partial fill upon [...] perst 3folowed by mental health;recent hospitalization 4gyn 41036 6testing negative insulinoma 7likley dumping sydrome 8abnormal GTT ;sugar 36 two hours into test 9sees gi 10normal CT brain 11new 125.3 cm,right per ct scan recent;seeing gynecology soon;they will review 13vit d deficiency;correct 307665 15per endocrinology monitor 16correction refer GTT; 2 hour glucose 36 17refer GGT 18seeing ortho;pre op 19asma,ama neg/cerulopalsmain wnl,AAT wnl 20Negative hep A antibody positive hep B surface antibody negative antigen negative hep C, normal ferritin 21ukltrasound Social History Social History Type Response Smoking Status Never smoker entered on: 02/20/13 Sex
--- OUTSIDE RECORDS SUMMARY | 2022-08-17 08:36 | XMS_ITS | Continuity of Care Document ---
Author Name Unknown Organization [facility] Address [address] [place] [address]- Care Team Providers Care Imaging Services Director Name Role Phone Eran Sue JOHNSON Primary Care Physician [place] [facility] Date(s): 12/14/21 - 01/13/22 [facility] [address] [place] [address]- [place] Allergies, Adverse Reactions, Alerts Substance Reaction Severity Status Dust Allergy to pollen Active Pollen seasonal allergies respiratory symptoms Active Incruse Ellipta 1 lightheaded and migraine Active 1dizzy Immunizations Given and Recorded Vaccine Date Status Refusal Reason [id number] 12y+ bivalent booster vax 1 12/24/21 Given [...] vaccine, inactivated 02/08/11 Give n SARS-CoV-2 mRNA (vfpgoej-ultx-capoc) vax 05/01/21 Recorded zoster vaccine, inactivated 11/03/20 [...] tetanus-diphtheria toxoids (Td) 08/03/05 Given 1Result Comment: [id number] 2Result Comment: [id number] 3Result Comment: [12/07/2017] [id number] 4Result Comment: [12/21/2016] [facility]: [id number] 5Result Comment: [06/10/2015] #3 6Admin Note: per pt 7Admin Note: given in clinic Medications acarbose 25 mg oral tablet See Instructions, 1 tablet with 50 mg (total 75 mg) By Mouth before lunch, # 30 each, 11 Refills, Maintenance, 11/03/21 8:24:00 EDT, Tablet, [facility], 158, cm, 11/03/21 8:01:00EDT, Height, 71.5, kg, 09/01/21 16:21:00 EDT, Dry W... Start Date: 11/03/21 Status: Ordered acarbose 50 mg oral tablet See Instructions, 1 tablet with 25 mg (total 75 mg) By Mouth before lunch, # 30 each, 11 Refills, Maintenance, 11/03/21 8:23:00 EDT, Tablet, [facility], Partial fill upon patientrequest if the prescription is for a schedule II op... Start Date: 11/03/21 Status: Ordered acetaminophen 500 mg oral tablet 2 tablet = 1,000 mg, By Mouth, Every 6 hours, PRN as needed for fever, # 200 tablet, 0 Refills, Maintenance, 12/03/21 10:17:00 EDT, Tablet, [facility], Partial fill upon patient request if the prescription is for a schedule II opi... Start Date: 12/03/21 Status: Ordered Albuterol (Eqv-ProAir HFA) 90 mcg/inh inhalation aerosol 2 puffs, Inhalation, Every 4 hours, PRN NEEDED FOR WHEEZING, # 8.5 Gm, 1 Refills, Maintenance, 12/03/21 14:16:00 EDT, [facility], 18, INHALE TWO PUFFS EVERY 4 HOURS NEEDED FOR WHEEZING, 163, cm, 12/03/21 9:39:00 EDT, Height,... Start Date: 12/03/21 Status: Ordered calcium (as citrate)-vitamin D 315 mg-250 intl units oral tablet 2 tablet, By Mouth, 2 times a day, # 120 tablet, 6 Refills, Maintenance, 11/03/21 8:23:00 EDT, Tablet, [facility], 2 tablet By Mouth [...] Refills, Maintenance, 11/22/21 9:49:00 EDT, CR Capsule, [facility], Partial fill upon patient request if the prescription is for a schedule II opioid... Start Date: 11/22/21 Status: Ordered Emgality Prefilled Pen 120 mg/mL subcutaneous solution = 120 mg, Subcutaneous Injection, Once, Maintenance Dose, # 1 kit, 6 Refills, Soft Stop, 12/30/21 12:19:00 EDT, [facility], Partial fill upon patient request if the prescription is for a schedule II opioid drug., 163, cm, 12/24/21... Start Date: 12/30/21 Status: Ordered EPINEPHrine 1 mg/mL injectable solution 0.3 mL = 0.3 mg, Intramuscular, Once, # 1 mL, 1 Refills, Soft Stop, 03/08/21 15:07:00 EST, Solution, [facility], Partial fill upon patient [...] 11/15/21 10:56:00 EDT, Route to Pharmacy Electronically, [facility], 158, cm, 11/03/21 8:01:00 EDT, Height, 71.5, kg, 09/01/21 16:21:00 EDT, Mark Start Date: 11/15/21 Status: Ordered montelukast 10 mg oral tablet 1, tablet, By Mouth, Daily in PM, # 90 tablet, Refills 1, Tot. Refills 1, Maintenance, 11/14/21 11:28:00 EDT, Route to Pharmacy Electronically, [facility], 158, cm, 11/03/21 8:01:00 EDT, Height, 71.5, kg, 09/01/21 16:21:00 EDT, Start Date: 11/14/21 Status: Ordered Nurtec ODT 75 mg oral tablet, disintegrating See Instructions, TAKE ONE TABLET DAILY NEEDED FOR migraines, DO NOT EXCEED ONE TABLET IN 24 HOURS, # 8 tablet, 6 Refills, Maintenance, 12/28/21 15:14:00 EDT, [facility], 163,cm, 12/24/21 8:20:00 EDT, [...] 11/23/21 19:57:00 EDT, Route to Pharmacy Electronically, NCPDP_[id number], [facility], 158, cm, 11/03/21 8:0... [...] 5 Refills, Maintenance, 12/10/21 9:44:00 EDT, Tablet, [facility], Partial fill upon patient [...] Active Vitamin D deficiency Confirmed Active 1gyn [address]3616 3testing negative insulinoma 4likley dumping sydrome 5abnormal GTT ;sugar 36 two hours into test 6sees gi 7normal CT brain 8new 9resolved after weight loss 10chronic perst 115.3 cm,right per ct scan recent;seeing gynecology soon;they will review 12vit d deficiency;correct 540846 14per endocrinology monitor 15correction refer GTT; 2 [...] Caitlyn Mcgee RN Position: [facility] RN Member Role: Primary Care Nurse Name: Sue Barillas NP Position: [facility] PCO Associate Professional Member Role: PCP Address: Address: [address] [place] [address]- Name: Andria Guadalupe RN Position: [facility] SN RN Member Role: Primary Care Nurse Name: Liz Martin RN Position: [facility] RN Member Role: Primary Care Nurse Name: Ambreen Mcmahon RN Position: [facility] RN Member Role: Primary Care Nurse Name: Irais Grijalva RN Position: [facility] RN Member Role: Primary Care Nurse Name: Autumn Martinez RN Position: [facility] SN RN Member Role: Primary Care Nurse Name: Concha Mckinley RN Position: [facility] RN Member Role: Primary Care Nurse Name: Liz English RN Position: [facility] RN Member Role: Primary Care Nurse Name: Dora Williamson RN Position: S RN Member Role: Primary Care Nurse Care Team Related Persons Name: KHUSHI CUNNINGHAM Address: home [address] [place] [address] Name: BHUPINDER VENEGAS Address: [address] [place] [address] Name: FELIPE FLORES Address: [address] [place] [address] Name: ARNAV FLORES Address: [address] [place] [address] Name: IRINA FLORES Address: [address] [place] [address] Name: RUSLAN FLORES Address: home [address] [place] [address] Name: KAISER PLUNKETT Address: home [address] [place] [address]
--- OUTSIDE RECORDS SUMMARY | 2022-08-17 08:36 | XMS_ITS | Continuity of Care Document ---
Author Name Unknown Organization [facility] Address [address] [place] [address]- Care Team Providers Care Brick Paver Name Role Phone Louisa LANDRUM, Taras Fuentes Primary Care Physician Encounter [facility] R [id number] Date(s): 10/30/20 - 11/06/20 [facility] [address] [place] [address]- Encounter Diagnosis Acute sinusitis, unspecified(Discharge Diagnosis) - 10/30/20 Attending Physician: Renetta Law MD Referring Physician: Taras Jasso MD Allergies, [...] toxoids (Td) 08/03/05 Given 1Result Comment: [12/07/2017] [id number] 2Result Comment: [12/21/2016] [facility]: 42104-659-57 3Result Comment: [06/10/2015] #3 4Admin Note: per pt 5Admin Note: given in clinic Medications acarbose 50 mg oral tablet 1 tablet = 50 mg, By Mouth, 3 times a day, Take 3 times daily with meals. E11.65, # 90 tablet, 5 Refills, Maintenance, 07/13/20 16:29:00 EDT, Tablet, [facility], Partial fill upon [...] 0 Refills, Maintenance, 07/03/19 13:59:00 EDT, Solution, [facility], 160, cm, 05/29/19 13:36:00 EDT, Height, 56.5, kg, 03... Start Date: 07/03/19 Status: Ordered amitriptyline 50 mg oral tablet 1 tablet = 50 mg, By Mouth, Daily at bedtime, # 30 tablet, 5 Refills, Maintenance, 07/22/20 8:03:00EDT, [facility], Partial fill upon patient request if the prescription is for a schedule II opioid drug., 158.02, cm, 07/06/20 6:4... Start Date: 07/22/20 Status: Ordered Baqsimi One Pack 3 mg nasal powder See Instructions, 3 mg Once intrasnasally for severe hypoglycemia, # 2 each, 3 Refills, Soft Stop, 08/28/20 10:36:00 EDT, [facility], Partial fill upon [...] 5 Refills, Maintenance, 11/06/20 10:28:00 EDT, Tablet, [facility], Replaces loratidine, 158.02, cm, [...] 1 Refills, Soft Stop, 11/20/19 11:59:00 EDT, [facility], 160.02, cm, 11/15/19 10:05:00 [...] 0 Refills, Maintenance, 11/03/20 7:49:00 EDT, Tablet, [facility], Partial fill upon patient request if the prescription is for... Start Date: 11/03/20 Status: Ordered montelukast 10 mg oral tablet 10 mg, 1, tablet, By Mouth, Daily in PM, # 90 tablet, Refills 3, Tot. Refills 3, Maintenance, 08/15/19 16:21:00 EDT, Route to Pharmacy Electronically, [facility], 160, cm, 08/15/19 13:45:00 EDT, Height, 56.5, kg, 05/29/19 13:36:00... Start Date: 08/15/19 Status: Ordered Enders 0.65% nasal spray 2 sprays, Nares, Both, 4 times a day, # 1 each, 0 Refills, Maintenance, 10/30/20 11:34:00 EDT, [facility], Partial fill upon [...] 0 Refills, Maintenance, 08/27/20 9:45:00 EDT, Capsule, [facility], Partial fill upon patient request if the prescription is for a schedule II opioid drug., 158.02, cm, 08/27/20 9:2... Start Date: 08/27/20 Stop Date: 09/26/20 Status: Ordered ProAir HFA 90 mcg/inh inhalation aerosol with adapter 2, puffs, Inhalation, Every 4 hours, PRN, # 8.5 Gm, Refills 2, Tot. Refills 2, Maintenance, 04/29/19 11:32:00 EST, Aerosol, Route to Pharmacy Electronically, NCPDP_[id number], [facility], 160, cm, [...] 6 Refills, Maintenance, 08/04/20 11:44:00 EDT, Tablet, [facility], 158.02, cm, 07/06/20 6:49:00 [...] 6 Refills, Soft Stop, 08/04/20 11:37:00 EDT, [facility], Partial fill upon [...] 1resolved after weight loss 2chronic perst 3gyn 37483 5testing negative insulinoma 6likley dumping sydrome 7abnormal GTT ;sugar 36 two hours into test 8sees gi 9normal CT brain 10new 115.3 cm,right per ct scan recent;seeing gynecology soon;they will review 12vit d deficiency;correct 203438 14per endocrinology monitor 15correction refer GTT; 2 hour glucose 36 16refer GGT 17seeing ortho;pre op 18asma,ama neg/cerulopalsmain wnl,AAT wnl 19Negative hep A antibody positive hep B surface antibody negative antigen negative hep C, normal ferritin 20ukltrasound Diagnosis Diagnosis Type Effective Dates Health Status Clinical Service Informant Acute sinusitis, unspecified Discharge Diagnosis 10/30/20 Social History Social History Type Response Smoking Status Never smoker entered on: 02/20/13 Sex
--- OUTSIDE RECORDS SUMMARY | 2022-08-17 08:37 | XMS_ITS | Continuity of Care Document ---
Author Name Unknown Organization [facility] Address [address] [place] [address]- Care Team Providers Care Supervisor Stave Cutting Name Role Phone Louisa LANDRUM, Taras Fuentes Primary Care Physician [facility]counter [facility] Date(s): 06/18/20 - 07/18/20 [facility] [address] [place] [address]- Allergies, Adverse Reactions, Alerts Substance Reaction Severity [...] toxoids (Td) 08/03/05 Given 1Result Comment: [12/07/2017] [id number] 2Result Comment: [12/21/2016] [facility]: [id number] 3Result Comment: [06/10/2015] #3 4Admin Note: per pt 5Admin Note: given in clinic Medications acarbose 25 mg oral tablet 1 tablet = 25 mg, By Mouth, 3 times a day, Take 1 tablet 3 times daily with meals. Add to 50mg dosefor total of 75mg 3 times daily. E11.65, # 270 tablet, 3 Refills, Maintenance, 07/15/20 12:23:00 EDT, Tablet, [facility], Partial... Start Date: 07/15/20 Status: [...] 60 capsule, 5 Refills, Maintenance, 05/07/20 15:54:00EST, [facility], 160.02, cm, 05/01/20 [...] 11:32:00 EST, Aerosol, Route to Pharmacy Electronically, NCPDP_[id number], [facility], 160, cm, 04/29/19 10:47:00 EST, Height... Start Date: 04/29/19 Status: Ordered rifAXIMin 550 mg oral tablet 1 tablet = 550 mg, By Mouth, 3 times a day, # 42 tablet, 0 Refills, Maintenance, 07/14/20 13:37:00 EDT, Tablet, [facility] [...] 0 Refills, Maintenance, 06/13/20 14:10:00 EDT, Capsule, [facility],... Start Date: 06/13/20 Status: [...] 1resolved after weight loss 2chronic perst 3gyn 76093 5testing negative insulinoma 6likley dumping sydrome 7abnormal GTT ;sugar 36 two hours into test 8sees gi 9normal CT brain 10new 115.3 cm,right per ct scan recent;seeing gynecology soon;they will review 12vit d deficiency;correct 574555 14per endocrinology monitor 15correction refer GTT; 2 hour glucose 36 16refer GGT 17seeing ortho;pre op 18asma,ama neg/cerulopalsmain wnl,AAT wnl 19Negative hep A antibody positive hep B surface antibody negative antigen negative hep C, normal ferritin 20ukltrasound Social History Social History Type Response Smoking Status Never smoker entered on: 02/20/13 Sex
--- OUTSIDE RECORDS SUMMARY | 2022-08-17 08:37 | XMS_ITS | Continuity of Care Document ---
Author Name Unknown Organization [facility] Oswaldo Address [address] [place] [address]- Care Team Providers Care Personal Lines Advisor Name Role Phone Eran FURNITURE MOVER HELPER, Sue Dahl Primary Care Physician Encounter [facility] Date(s): 04/26/22 - 05/28/22 [facility] Adult [address] [place] [address]- Attending Physician: Olesya Vernon NP Allergies, Adverse Reactions, Alerts Substance Reaction Severity Status Dust Allergy to pollen Active Pollen seasonal allergies respiratory symptoms Active Incruse Ellipta 1 lightheaded and migraine Active 1dizzy Immunizations Given and Recorded Vaccine Date Status Refusal Reason [id number] 12y+ bivalent booster vax 1 12/24/21 Given [...] vaccine, inactivated 02/08/11 Give n SARS-CoV-2 mRNA (jucvpdt-ieko-[id number]) vax 05/01/21 Recorded zoster vaccine, inactivated 11/03/20 [...] tetanus-diphtheria toxoids (Td) 08/03/05 Given 1Result Comment: [address]-0 2Result Comment: 59983-490-78 3Result Comment: [12/07/2017] [address]-42 4Result Comment: [12/21/2016] [facility]: 41445-149-39 5Result Comment: [06/10/2015] #3 6Admin Note: per [...] Gm, 5 Refills, Maintenance, 03/09/22 11:21:00 EST, [facility], 17, INHALE TWO PUFFS [...] 1,200 mL, 5 Refills, Maintenance,04/29/22 9:16:00 EST, [facility] #[id number], Partial fill upon patient request if the [...] 2 Refills, Soft Stop, 03/17/22 8:08:00 EST, [facility], requesting 3 month supply [...] 6 Refills, Maintenance, 01/31/22 14:05:00 EST, Suspension, [facility], Partial fill upon patient request if the prescription is for a schedule II opioid drug., 163, cm, 01/18... Start Date: 01/31/22 Stop Date: 08/29/22 Status: Ordered Fiber Choice 1.5 g oral tablet, chewable 1 tablet = 1.5 Gm, Chew, 3 times a day, # 90 tablet, 0 Refills, Maintenance, 04/09/22 15:16:00 EST,Chew Tablet, [facility] #[id number], Partial fill upon patient request if the [...] Refills, Maintenance, 04/09/22 15:16:00 EST, REC Powder, [facility] #[id number], Partial fill upon patient request if the [...] each, 0 Refills, Maintenance, 04/06/22 15:29:00 EST, [facility] #[id number], Partial fi... Start Date: 04/06/22 Status: Ordered Reclast = 5 mg, IV Infusion, Once, 0 Refills, Maintenance, 11/06/20 10:24:00 EDT, administered at [facility] 10/2020 Start Date: 11/06/20 Status: Ordered Stool Softener + Stimulant Laxative 50 mg-8.6 mg oral capsule 1 capsule, By Mouth, Daily in PM, # 60 capsule, 0 Refills, Maintenance, 04/09/22 15:17:00 EST, Capsule, [facility] #[id number], Partial fill upon patient request if the prescription is for a schedule II opioid drug., 1 capsule By Mouth Daily in P... Start Date: 04/09/22 Status: Ordered Symbicort 160mcg/4.5mcg Inhaler 2, puffs, Inhalation, 2 times a day, rinse mouth and throat after use, # 10.2 Gm, Refills 3, Tot. Refills 3, Maintenance, 11/23/21 19:57:00 EDT, Route to Pharmacy Electronically, NCPDP_[id number], [facility], 158, cm, 11/03/21 [...] Active Vitamin D deficiency Confirmed Active 1gyn 34292 3testing negative insulinoma 4likley dumping sydrome 5abnormal GTT ;sugar 36 two hours into test 6normal CT brain 7new 8resolved after weight loss 9chronic perst 105.3 cm,right per ct scan recent;seeing gynecology soon;they will review 11vit d deficiency;correct 679279 13per endocrinology monitor 14correction refer GTT; 2 hour glucose 36 15refer GGT 16seeing ortho;pre op 17asma,ama neg/cerulopalsmain wnl,AAT wnl 18Negative hep A antibody positive hep B surface antibody negative antigen negative hep C, normal ferritin 19ukltrasound Social History Social History Type Response Smoking Status Never smoker entered on: 02/20/13 Sex Patient Care team information Care Team Personnel Name: Caitlyn Mcgee RN Position: [facility] RN Member Role: Primary Care Nurse Name: Sue Barillas NP Position: [facility] PCO Associate Professional Member Role: PCP Address: Address: [address] [place] [id number] Name: Andria Guadalupe RN Position: [facility] SN RN Member Role: Primary Care Nurse Name: Liz Martin RN Position: [facility] RN Member Role: Primary Care Nurse Name: Ambreen Mcmahon RN Position: [facility] RN Member Role: Primary Care Nurse Name: Irais Grijalva RN Position: [facility] RN Member Role: Primary Care Nurse Name: Autumn Martinez RN Position: [facility] SN RN Member Role: Primary Care Nurse Name: Liz English RN Position: [facility] RN Member Role: Primary Care Nurse Name: Dora Williamson RN Position: [facility] RN Member Role: Primary Care Nurse Care Team Related Persons Name: KHUHSI CUNNINGHAM Address: home [address] [place] [address] Name: BHUPINDER VENEGAS Address: [address] [place] [address] Name: FELIPE FLORES Address: home [address] [place] [address] Name: ARNAV FLORES Address: home [address] [place] [address] Name: IRINA FLORES Address: home [address] [place] [address] Name: RUSLAN FLORES Address: home [address] [address] [place] [address] Name: KAISER PLUNKETT Address: home [address] [facility] [address] [place] [address]
--- OUTSIDE RECORDS SUMMARY | 2022-08-17 08:37 | XMS_ITS | Continuity of Care Document ---
Author Name Unknown Organization [facility] Address [address] [place] [address]- Care Team Providers Care Mill Stenciler Name Role Phone Eran Sue JOHNSON Primary Care Physician [phone] Encounter [facility] Date(s): 06/08/22 - 07/08/22 [facility] [address] [place] [address]- [place] Allergies, Adverse Reactions, Alerts Substance Reaction Severity Status Dust Allergy to pollen Active Pollen seasonal allergies respiratory symptoms Active Incruse Ellipta 1 lightheaded and migraine Active 1dizzy Immunizations Given and Recorded Vaccine Date Status Refusal Reason [id number] 12y+ bivalent booster vax 1 12/24/21 Given [...] vaccine, inactivated 02/08/11 Give n SARS-CoV-2 mRNA (eakfapv-yymt-iqjzc) vax 05/01/21 Recorded zoster vaccine, inactivated 11/03/20 [...] tetanus-diphtheria toxoids (Td) 08/03/05 Given 1Result Comment: [address]-1 2Result Comment: 33063-343-96 3Result Comment: [12/07/2017] [address]-56 4Result Comment: [12/21/2016] [facility]: 24115-290-64 5Result Comment: [06/10/2015] #3 6Admin Note: per pt 7Admin Note: given in clinic Medications acetaminophen 500 mg oral tablet 2 tablet = 1,000 mg, By Mouth, Every 6 hours, PRN as needed for fever, # 200 tablet, 0 Refills, Maintenance, 12/03/21 10:17:00 EDT, Tablet, [facility], Partial fill upon patient request if the prescription is for a schedule II opi... Start Date: 12/03/21 Status: Ordered Albuterol (Eqv-ProAir HFA) 90 mcg/inh inhalation aerosol 2 puffs, Inhalation, Every 4 hours, PRN NEEDED FOR WHEEZING, # 8.5 Gm, 5 Refills, Maintenance, 03/09/22 11:21:00 EST, [facility], 17, INHALE TWO PUFFS [...] 6 Refills, Maintenance, 11/03/21 8:23:00 EDT, Tablet, [facility], 2 tablet By Mouth 2 times a day, 158, cm, 11/03/21 8:01:00 EDT,Height, 71.5, kg, 09/01/21 16:21:00 EDT, Dry Weight Start Date: 11/03/21 Status: Ordered Carafate 1 gm/10 ml oral suspension 10 mL = 1 Gm, By Mouth, 3 times a day before meals and bedtime, # 1,200 mL, 5 Refills, Maintenance,04/29/22 9:16:00 EST, [facility] #[id number], Partial fill upon patient request if the prescription is for a schedule II opioid drug., 158, cm, 02... Start Date: 04/29/22 Status: Ordered cetirizine 10 mg oral tablet 1 tablet, By Mouth, Daily, # 30 tablet, 5 Refills, Maintenance, 06/03/22 11:40:00 EDT, [facility], 158, cm, 05/25/22 13:59:00 [...] Refills, Maintenance, 05/30/22 7:57:00 EDT, CR Capsule, [facility], Partial fill upon patient request if the prescription is for a schedule II opioid... Start Date: 05/30/22 Status: Ordered Emgality Prefilled Pen 120 mg/mL subcutaneous solution = 120 mg, Subcutaneous Injection, Once, Maintenance Dose, # 3 kit, 2 Refills, Soft Stop, 03/17/22 8:08:00 EST, [facility], requesting 3 month supply [...] 6 Refills, Maintenance, 01/31/22 14:05:00 EST, Suspension, [facility], Partial fill upon patient request if the prescription is for a schedule II opioid drug., 163, cm, 01/18... Start Date: 01/31/22 Stop Date: 08/29/22 Status: Ordered Fiber Choice 1.5 g oral tablet, chewable 1 tablet = 1.5 Gm, Chew, 3 times a day, # 90 tablet, 0 Refills, Maintenance, 04/09/22 15:16:00 EST,Chew Tablet, [facility] #[id number], Partial fill upon patient request if the [...] Refills, Maintenance, 04/09/22 15:16:00 EST, REC Powder, [facility] #[id number], Partial fill upon patient request if the prescription is for a schedule II opioid drug., 17 Gm... Start Date: 04/09/22 Status: Ordered montelukast 10 mg oral tablet 1, tablet, By Mouth, Daily in PM, # 90 tablet, Refills 1, Tot. Refills 1, Maintenance, 11/14/21 11:28:00 EDT, Route to Pharmacy Electronically, [facility], 158, cm, 11/03/21 8:01:00 EDT, Height, 71.5, kg, 09/01/21 16:21:00 EDT, . Start Date: 11/14/21 Status: Ordered Nurtec ODT 75 mg oral tablet, disintegrating See Instructions, TAKE ONE TABLET DAILY NEEDED FOR migraines, DO NOT EXCEED ONE TABLET IN 24 HOURS, # 8 tablet, 6 Refills, Maintenance, 12/28/21 15:14:00 EDT, [facility], 163,cm, 12/24/21 8:20:00 EDT, [...] each, 0 Refills, Maintenance, 04/06/22 15:29:00 EST, [facility] #[id number], Partial fi... Start Date: 04/06/22 Status: Ordered Reclast = 5 mg, IV Infusion, Once, 0 Refills, Maintenance, 11/06/20 10:24:00 EDT, administered at [facility] 10/2020 Start Date: 11/06/20 Status: Ordered Stool Softener + Stimulant Laxative 50 mg-8.6 mg oral capsule 1 capsule, By Mouth, Daily in PM, # 60 capsule, 0 Refills, Maintenance, 04/09/22 15:17:00 EST, Capsule, [facility] #[id number], Partial fill upon patient request if the prescription is for a schedule II opioid drug., 1 capsule By Mouth Daily in P... Start Date: 04/09/22 Status: Ordered Symbicort 160mcg/4.5mcg Inhaler 2, puffs, Inhalation, 2 times a day, rinse mouth and throat after use, # 10.2 Gm, Refills 2, Tot. Refills 2, Maintenance, 06/10/22 20:48:00 EDT, Route to Pharmacy Electronically, NCPDP_[id number], [facility], 158, cm, 06/07/22 10:... [...] Active Vitamin D deficiency Confirmed Active 1gyn 08940 3testing negative insulinoma 4likley dumping sydrome 5abnormal GTT ;sugar 36 two hours into test 6normal CT brain 7new 8resolved after weight loss 9chronic perst 105.3 cm,right per ct scan recent;seeing gynecology soon;they will review 11vit d deficiency;correct 784888 13per endocrinology monitor 14correction refer GTT; 2 [...] Care Nurse Name: Sue Barillas NP Position: [facility] PCO Associate Professional Member Role: PCP Address: Address: [address] [place] [id number] Name: Andria Guadalupe RN Position: [facility] SN RN Member Role: Primary Care Nurse Name: Liz Martin RN Position: [facility] RN Member Role: Primary Care Nurse Name: Ambreen Mcmahon RN Position: [facility] RN Member Role: Primary Care Nurse Name: Irais Grijalva RN Position: [facility] RN Member Role: Primary Care Nurse Name: Autumn Martinez RN Position: [facility] SN RN Member Role: Primary Care Nurse Name: Liz English RN Position: [facility] RN Member Role: Primary Care Nurse Name: Dora Williamson RN Position: [facility] RN Member Role: Primary Care Nurse Care Team Related Persons Name: KHUSHI CUNNINGHAM Address: home [address] [place] [address] Name: BHUPINDER VENEGAS Address: [address] [place] [address] Name: FELIPE FLORES Address: home [address] [place] [address] Name: ARNAV FLORES Address: home [address] [place] [address] Name: IRINA FLORES Address: home [address] [place] [address] Name: RUSLAN FLORES Address: home [address] [facility] [place] [address] Name: KAISER PLUNKETT Address: home [address] [place] [address]
--- OUTSIDE RECORDS SUMMARY | 2022-08-17 08:37 | XMS_ITS | Continuity of Care Document ---
Author Name Unknown Organization [facility] ter Address [address] [place] [address]- Care Team Providers Care Sales Floor Associate Name Role Phone Louisa LANDRUM, Taras Fuentes Primary Care Physician Encounter [facility] Date(s): 01/17/19 - 02/21/[address] [address]- [facility] Attending Physician: Avery Zavala MD Admitting Physician: Avery Zavala MD Allergies, Adverse Reactions, Alerts Substance Reaction [...] toxoids (Td) 08/03/05 Given 1Result Comment: [12/07/2017] [address]-94 2Result Comment: [12/21/2016] [facility]: [id number] 3Result Comment: [06/10/2015] #3 4Admin Note: per [...] Tot. Refills 11, Maintenance, DX:[id number] ASTHMA FAX [id number], 12/21/17 11:58:59 EDT, Compound Start Date: 12/21/17 [...] 14:19:44 EST, Aerosol, Route to Pharmacy Electronically, NCPDP_[id number], [facility] Start Date: 03/19/18 [...] 05/12/17 8:15:18, Aerosol, Route to Pharmacy Electronically, NCPDP_[id number], [facility]... Start Date: 05/12/17 Status: Ordered tiZANidine 2 [...] perst 3folowed by mental health;recent hospitalization 4gyn 54015 6testing negative insulinoma 7likley dumping sydrome 8abnormal GTT ;sugar 36 two hours into test 9sees gi 10normal CT brain 11new 125.3 cm,right per ct scan recent;seeing gynecology soon;they will review 13vit d deficiency;correct 940772 15per endocrinology monitor 16correction refer GTT; 2 hour glucose 36 17refer GGT 18seeing ortho;pre op 19asma,ama neg/cerulopalsmain wnl,AAT wnl 20Negative hep A antibody positive hep B surface antibody negative antigen negative hep C, normal ferritin 21ukltrasound Social History Social History Type Response Smoking Status Never smoker entered on: 02/20/13 Sex
--- OUTSIDE RECORDS SUMMARY | 2022-08-17 08:37 | XMS_ITS | Continuity of Care Document ---
Author Name Unknown Organization [facility] Address [address] [place] [address]- Care Team Providers Care Wave Soldering Machine Operator Name Role Phone Earn RETAIL GROCER, Sue Dahl Primary Care Physician Encounter [facility] Date(s): 02/25/22 - 03/27/22 [facility] Adult [address] [place] [address]- Attending Physician: Admtr, Ar8 Allergies, Adverse Reactions, Alerts Substance Reaction Severity Status Dust Allergy to pollen Active Pollen seasonal allergies respiratory symptoms Active Incruse Ellipta 1 lightheaded and migraine Active 1dizzy Immunizations Given and Recorded Vaccine Date Status Refusal Reason [id number] 12y+ bivalent booster vax 1 12/24/21 Given influenza virus vaccine, inactivated 2 12/24/21 Gi vickei influenza virus vaccine, inactivated 12/11/20 Give n [...] vaccine, inactivated 02/08/11 Give n SARS-CoV-2 mRNA (iyzvbfh-ojfx-hgdzo) vax 05/01/21 Recorded zoster vaccine, inactivated 11/03/20 [...] tetanus-diphtheria toxoids (Td) 08/03/05 Given 1Result Comment: [address]-7 2Result Comment: 97252-222-27 3Result Comment: [12/07/2017] [address]-17 4Result Comment: [12/21/2016] [facility]: [id number] 5Result Comment: [06/10/2015] #3 6Admin Note: per [...] Refills, Maintenance, 11/22/21 9:49:00 EDT, CR Capsule, [facility], Partial fill upon patient request if the prescription is for a schedule II opioid... Start Date: 11/22/21 Status: Ordered Emgality Prefilled Pen 120 mg/mL subcutaneous solution = 120 mg, Subcutaneous Injection, Once, Maintenance Dose, # 3 kit, 2 Refills, Soft Stop, 03/17/22 8:08:00 EST, [facility], requesting 3 month [...] 03/24/22 14:12:00 EST, Route to Pharmacy Electronically, [facility], Partial fill upon p... Start Date: 03/24/22 Status: Ordered Reclast = 5 mg, IV Infusion, Once, 0 Refills, Maintenance, 11/06/20 10:24:00 EDT, administered at [facility] 10/2020 Start Date: 11/06/20 Status: Ordered Symbicort 160mcg/4.5mcg Inhaler 2, puffs, Inhalation, 2 times a day, rinse mouth and throat after use, # 10.2 Gm, Refills 3, Tot. Refills 3, Maintenance, 11/23/21 19:57:00 EDT, Route to Pharmacy Electronically, NCPDP_[id number], [facility], 158, cm, 11/03/21 8:0... Start [...] 5 Refills, Maintenance, 12/10/21 9:44:00 EDT, Tablet, [facility], Partial [...] gynecology soon;they will review 11vit d deficiency;correct 329863 13per endocrinology monitor 14correction refer GTT; 2 hour glucose 36 15refer GGT 16seeing ortho;pre op 17asma,ama neg/cerulopalsmain wnl,AAT wnl 18Negative hep A antibody positive hep B surface antibody negative antigen negative hep C, normal ferritin 19ukltrasound Procedures Procedure Date Related Diagnosis Body Site Status EGD - Esophagogastroduodenos copy- resolving ulcer suspected 09/08/20 Comple irvin Gastric sleeve revision 08/19/[address] of chest, abdomen and pel vis- RML 0.3cm noncalcified pulm nodule, hiatal hernia 03/08/20 Completed EMG LUE normal 12/14/19 Completed Plain X-ray lumbar spine abn ormal post op chngs 01/11/19 Completed Endoscopy 1, 2 05/24/16 Completed 1z-line irregular 36cm from incisiors biopsied 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 the gastrojejunal anastomosis was characterized by healthy appearing mucosa Social History Social History Type Response Smoking Status Never smoker entered on: 02/20/13 Sex EKG study * Event Display: EKG Authored Date: * Event Display: EKG Authored Date: * Event Display: EKG Authored Date: Note * Event Display: Non BH Lab Results Authored Date: * Event Display: Laboratory Result Scanned Authored Date: * Event Display: IR Special Procedures, Non-BH Authored Date: * Event Display: Non BH Lab Results Authored Date: * Event Display: IR Special Procedures Authored Date: * Event Display: IR Special Procedures, Non-BH Authored Date: * Event Display: X-Ray Miscellaneous, Non- BH Authored Date: * Event Display: CT Scan Sinus, Non- BH Authored Date: * Event Display: X-Ray Abdomen, Non- BH Authored Date: * Event Display: Ultrasound Abdomen, Non-BH Authored Date: * Event Display: Non BH Radiology Results Authored Date: * Event Display: Non BH Radiology Results Authored Date: * Event Display: Radiology Result Scanned Authored Date: Cardiology Consult note * Event Display: Consult Note Cardiology Authored Date: Cardiology Outpatient Note * Ann-Marie Olsen: PERFORM Event Display: Cardiology Note Office Authored Date: Patient Care team information Care Team Personnel Name: Caitlyn Mcgee RN Position: [facility] RN Member Role: Primary Care Nurse Name: Sue Barillas NP Position: [facility] PCO Associate Professional Member Role: PCP Address: Address: [address] [place] [id number] Name: Andria Guadalupe RN Position: [facility] SN RN Member Role: Primary Care Nurse Name: Liz Martin RN Position: [facility] RN Member Role: Primary Care Nurse Name: Ambreen Mcmahon RN Position: [facility] RN Member Role: Primary Care Nurse Name: Irais Grijalva RN Position: [facility] RN Member Role: Primary Care Nurse Name: Autumn Martinez RN Position: [facility] SN RN Member Role: Primary Care Nurse Name: Concha Mckinley RN Position: [facility] RN Member Role: Primary Care Nurse Name: Liz English RN Position: [facility] RN Member Role: Primary Care Nurse Name: Dora Williamson RN Position: [facility] RN Member Role: Primary Care Nurse Care Team Related Persons Name: KHUSHI CUNNINGHAM Address: home [address] [place] [address] Name: BHUPINDER VENEGAS Address: [address] [place] [address] Name: FELIPE FLORES Address: home [address] [place] [address] Name: ARNAV FLORES Address: home [address] [place], [place] Name: IRINA FLORES Address: home [address] [place], [place] Name: RUSLAN FLORES Address: home [address] [facility] [place] [address] Name: KAISER PLUNKETT Address: home [address] [place] [address]
--- OUTSIDE RECORDS SUMMARY | 2022-08-17 08:37 | XMS_ITS | Continuity of Care Document ---
Author Name Unknown Organization [facility] Address [address] [place] [address]- Care Team Providers Care Hourly Sales Staff Name Role Phone Eran Sue JOHNSON Primary Care Physician Encounter [facility] [place] Date(s): 05/19/22 - 06/18/22 [facility] [address] [place] [phone]- [place] Allergies, Adverse Reactions, Alerts Substance Reaction Severity Status Dust Allergy to pollen Active Pollen seasonal allergies respiratory symptoms Active Incruse Ellipta 1 lightheaded and migraine Active 1dizzy Immunizations Given and Recorded Vaccine Date Status Refusal Reason [id number] 12y+ bivalent booster vax 1 12/24/21 Given [...] vaccine, inactivated 02/08/11 Give n SARS-CoV-2 mRNA (utzcqnu-geoo-ehopj) vax 05/01/21 Recorded zoster vaccine, inactivated 11/03/20 [...] tetanus-diphtheria toxoids (Td) 08/03/05 Given 1Result Comment: [address]-6 2Result Comment: 57433-827-71 3Result Comment: [12/07/2017] [address]-06 4Result Comment: [12/21/2016] [facility]: 88444-465-50 5Result Comment: [06/10/2015] #3 6Admin Note: per [...] 1,200 mL, 5 Refills, Maintenance,04/29/22 9:16:00 EST, [facility] #[id number], Partial fill upon patient request if the [...] 2 Refills, Soft Stop, 03/17/22 8:08:00 EST, [facility], requesting 3 month [...] 0 Refills, Maintenance, 04/09/22 15:16:00 EST,Chew Tablet, [facility] #[id number], Partial fill upon patient request if the [...] Refills, Maintenance, 04/09/22 15:16:00 EST, REC Powder, [facility] #[id number], Partial fill upon patient request if the [...] each, 0 Refills, Maintenance, 04/06/22 15:29:00 EST, [facility] #[id number], Partial fi... Start Date: 04/06/22 Status: Ordered Reclast = 5 mg, IV Infusion, Once, 0 Refills, Maintenance, 11/06/20 10:24:00 EDT, administered at [facility] 10/2020 Start Date: 11/06/20 Status: Ordered Stool Softener + Stimulant Laxative 50 mg-8.6 mg oral capsule 1 capsule, By Mouth, Daily in PM, # 60 capsule, 0 Refills, Maintenance, 04/09/22 15:17:00 EST, Capsule, [facility] #[id number], Partial fill upon patient request if the prescription is for a schedule II opioid drug., 1 capsule By Mouth Daily in P... Start Date: 04/09/22 Status: Ordered Symbicort 160mcg/4.5mcg Inhaler 2, puffs, Inhalation, 2 times a day, rinse mouth and throat after use, # 10.2 Gm, Refills 2, Tot. Refills 2, Maintenance, 06/10/22 20:48:00 EDT, Route to Pharmacy Electronically, NCPDP_[id number], [facility], 158, cm, 06/07/22 [...] Active Vitamin D deficiency Confirmed Active 1gyn 26237 3testing negative insulinoma 4likley dumping sydrome 5abnormal GTT ;sugar 36 two hours into test 6normal CT brain 7new 8resolved after weight loss 9chronic perst 105.3 cm,right per ct scan recent;seeing gynecology soon;they will review 11vit d deficiency;correct 811983 13per endocrinology monitor 14correction refer GTT; 2 [...] Professional Member Role: PCP Address: Address: [address] [place], [place] [address] Name: Andria Guadalupe RN Position: [facility] SN RN Member Role: Primary Care Nurse Name: Liz Martin RN Position: [facility] RN Member Role: Primary Care Nurse Name: Ambreen Mcmahon RN Position: [facility] RN Member Role: Primary Care Nurse Name: Irais Grijalva RN Position: [facility] RN Member Role: Primary Care Nurse Name: Atuumn Martinez RN Position: [facility] SN RN Member Role: Primary Care Nurse Name: Lzi English RN Position: [facility] RN Member Role: Primary Care Nurse Name: Dora Williamson RN Position: [facility] RN Member Role: Primary Care Nurse Care Team Related Persons Name: KHUSHI CUNNINGHAM Address: home [address] [place] [address] Name: BHUPINDER VENEGAS Address: home [address] [place] [address] Name: FELIPE FLORES Address: home [address] [place] [address] Name: ARNAV FLORES Address: home [address] [place] [address] Name: IRINA FLORES Address: home [address] [place] [address] Name: RUSLAN FLORES Address: home [address] [facility] [address] [place] [address] Name: KAISER PLUNKETT Address: home [address] [place] [address]
--- OUTSIDE RECORDS SUMMARY | 2022-08-17 08:37 | XMS_ITS | Continuity of Care Document ---
Author Name Unknown Organization [facility] Address [address] [place] [address]- Care Team Providers Care Estate Tax Examiner Name Role Phone Eran Sue JOHNSON Primary Care Physician [place] [facility] [place] 06/02/21 [facility] [address] [place] [address]- [place] Allergies, Adverse Reactions, Alerts Substance Reaction Severity Status Dust Allergy to pollen Active Pollen seasonal allergies respiratory symptoms Active Incruse Ellipta 1 lightheaded and migraine Active 1dizzy Immunizations Given and Recorded Vaccine Date Status Refusal Reason SARS-CoV-2 mRNA (atylsbb-itby-pjvcr) vax 05/01/21 Recorded influenza virus vaccine, inactivated [...] toxoids (Td) 08/03/05 Given 1Result Comment: [12/07/2017] [address]-91 2Result Comment: [12/21/2016] [facility]: 46610-729-86 3Result Comment: [06/10/2015] #3 4Admin Note: per [...] Date: 12/10/20 Stop Date: 07/08/21 Status: Ordered [place] 0.65% nasal spray 2 sprays, Nares, Both, [...] 19:25:00 EST, Aerosol, Route to Pharmacy Electronically, NCPDP_[id number], [facility], 158, cm, [...] Gm, Refills 11, Route to Pharmacy Electronically, NCPDP_[id number], [facility], 158.02, cm, [...] 1resolved after weight loss 2chronic perst 3gyn 74096 5testing negative insulinoma 6likley dumping sydrome 7abnormal GTT ;sugar 36 two hours into test 8sees gi 9normal CT brain 10new 115.3 cm,right per ct scan recent;seeing gynecology soon;they will review 12vit d deficiency;correct 896602 14per endocrinology monitor 15correction refer GTT; 2 hour glucose 36 16refer GGT 17seeing ortho;pre op 18asma,ama neg/cerulopalsmain wnl,AAT wnl 19Negative hep A antibody positive hep B surface antibody negative antigen negative hep C, normal ferritin 20ukltrasound Social History Social History Type Response Smoking Status Never smoker entered on: 02/20/13 Sex
--- OUTSIDE RECORDS SUMMARY | 2022-08-17 08:37 | XMS_ITS | Continuity of Care Document ---
Author Name Unknown Organization [facility] Address [address] [place] [address]- Care Team Providers Care Hematology Specialist Name Role Phone Louisa LANDRUM, Taras Fuentes Primary Care Physician Encounter [facility] [place] Date(s): 09/11/19 - 09/11/[address] [address]- [facility] Discharge Disposition: A-D/C Home Attending Physician: Maria Elena Chowdhury MD Admitting Physician: Maria Elena Chowdhury MD Referring Physician: Maria Elena Chowdhury MD Allergies, Adverse Reactions, Alerts Substance Reaction [...] toxoids (Td) 08/03/05 Given 1Result Comment: [12/07/2017] [address]-15 2Result Comment: [12/21/2016] [facility]: 27807-362-16 3Result Comment: [06/10/2015] #3 4Admin Note: per [...] 07/07/2012:36:00 EDT, Aerosol, Route to Pharmacy Electronically, NCPDP_[id number], [facility], 160, cm, 07/08/19 13:03:00 [...] 60 capsule, 5 Refills, Maintenance, 07/30/19 10:21:00EDT, [facility], 160, cm, 07/08/19 13:03:00 EDT, Height, 56.5, kg, 05/29/19 13:36:00 EDT, Dry Weight Start Date: 07/30/19 Status: Ordered eletriptan 40 mg oral tablet 1 tablet = 40 mg, By Mouth, Daily, PRN for migraine headache, # 9 tablet, 5 Refills, Soft Stop, 07/16/19 9:23:00 EDT, Tablet, [facility], she has tried sumatriptan and rizatriptan. if insurance still declines let me know which I c... Start Date: 07/16/19 Stop Date: 01/12/20 Status: Ordered famotidine 20 mg oral tablet 20 mg, 1, tablet, By Mouth, Daily at bedtime, # 30 tablet, Refills 5, Tot. Refills 5, Maintenance, 05/17/19 12:02:00 EDT, Route to Pharmacy Electronically, [facility], 160, cm, 05/16/19 10:27:00 EDT, Height, 62.9, kg, 05/12/19 9:1... Start Date: 05/17/19 Status: Ordered famotidine 40 mg oral tablet 1/2 tablet, By Mouth, Daily at bedtime, famotidine 20mg backordered. please take 1/2 tab daily, # 30 each, 1 Refills, Maintenance, 07/30/19 10:21:00 EDT, [facility], 160, cm, 07/08/19 13:03:00 [...] 11:32:00 EST, Aerosol, Route to Pharmacy Electronically, NCPDP_[id number], [facility], 160, [...] 07/08/19 13:36:00 EDT, Route to Pharmacy Electronically, NCPDP_[id number], [facility], 160, cm, 07/08/19 13:03:00 ED... Start Date: 07/08/19 Status: Ordered Topamax 50 mg oral tablet 1 tablet = 50 mg, By Mouth, Daily at bedtime, after weaning off zonegran, take 50mg at HS for 2 weeks then increase to 100mg at HS, # 30 tablet, 6 Refills, Maintenance, 07/16/19 10:51:00 EDT, Tablet,[facility], weaning zonegran o... Start [...] perst 3folowed by mental health;recent hospitalization 4gyn 86130 6testing negative insulinoma 7likley dumping sydrome 8abnormal GTT ;sugar 36 two hours into test 9sees gi 10normal CT brain 11new 125.3 cm,right per ct scan recent;seeing gynecology soon;they will review 13vit d deficiency;correct 254508 15per endocrinology monitor 16correction refer GTT; 2 hour glucose 36 17refer GGT 18seeing ortho;pre op 19asma,ama neg/cerulopalsmain wnl,AAT wnl 20Negative hep A antibody positive hep B surface antibody negative antigen negative hep C, normal ferritin 21ukltrasound Vital Signs Most recent to oldest [Reference Range]: 1 2 3 Height 160.02 cm (09/11/19 11:20 AM) 160.02 cm (09/03/19 12:23 PM) Weight 67 kg (09/11/19 11:20 AM) 65.91 kg (09/03/19 12:23 PM) Oxygen Saturation [94-100 %] 100 % (09/11/19 2:30 PM) 100 % (09/11/19 2:15 PM) 100 % (09/11/19 2:00 PM) Pulse Rate [55-90 bpm] 70 bpm (09/11/19 11:20 AM) Body Mass Index [18.5-24.99] 26.17 *H* (09/11/19 11:20 AM) 25.74 *H* (09/03/19 12:23 PM) Blood Pressure [90-138/55-84 mm Hg] 130/86mm Hg (09/11/19 2:30 PM) 142/81mm Hg *H* (09/11/19 2:15 PM) 151/86mm Hg *H* (09/11/19 2:00 PM) Respiratory Rate [16-30 br/min] 15 br/min *L* (09/11/19 2:30 PM) 17 br/min (09/11/19 2:15 PM) 15 br/min *L* (09/11/19 2:10 PM) Temperature [96.8-100.4 DegF] 97.9 DegF (09/11/19 1:45 PM) 98.8 DegF (09/11/19 11:20 AM) Mode of Delivery (Oxygen) Room air (09/11/19 2:30 PM) Room air (09/11/19 2:15 PM) Room air (09/11/19 2:00 PM) Blood pressure sites Arm, right (09/11/19 2:30 PM) Arm, right (09/11/19 2:15 PM) Arm, right (09/11/19 2:00 PM) Temperature Route Temporal (09/11/19 11:20 AM) Dry Weight 67 kg (09/11/19 11:20 AM) 65.91 kg (09/03/19 12:23 PM) Weight Obtained Via Standing scale (09/11/19 11:20 AM) Patient/family stated (09/03/19 12:23 PM) Dry Weight Obtained Via Standing scale (09/11/19 11:20 AM) Patient/family stated (09/03/19 12:23 PM) Social History Social History Type Response Smoking Status Never smoker entered on: 02/20/13 Sex
--- OUTSIDE RECORDS SUMMARY | 2022-08-17 08:37 | XMS_ITS | Continuity of Care Document ---
Author Name Unknown Organization [facility] Address [address] [place] [address]- Care Team Providers Care Vocational Childcare Teacher Name Role Phone Louisa LANDRUM, Taras Fuentes Primary Care Physician [phone] Encounter [facility] Date(s): 06/12/20 - 07/12/20 [facility] [address] [place] [address] Allergies, Adverse Reactions, Alerts Substance [...] toxoids (Td) 08/03/05 Given 1Result Comment: [12/07/2017] [address]-34 2Result Comment: [12/21/2016] [facility]: [id number] 3Result Comment: [06/10/2015] #3 4Admin Note: per [...] 0 Refills, Maintenance, 07/03/19 13:59:00 EDT, Solution, [facility], 160, cm, 05/29/19 13:36:00 [...] 60 capsule, 5 Refills, Maintenance, 05/07/20 15:54:00EST, [facility], 160.02, cm, 05/01/20 9:18:00 [...] 02/25/19 16:55:00 EST, Route to Pharmacy Electronically, [facility], 158, cm, 02/14/19 7:55:00 EST, Height, 61.9, kg, 02/12/19 10:17:00... Start Date: 02/25/19 Status: Ordered montelukast 10 mg oral tablet 10 mg, 1, tablet, By Mouth, Daily in PM, # 90 tablet, Refills 3, Tot. Refills 3, Maintenance, 08/15/19 16:21:00 EDT, Route to Pharmacy Electronically, [facility], 160, cm, 08/15/19 13:45:00 EDT, Height, 56.5, kg, 05/29/19 13:36:00... Start Date: 08/15/19 Status: Ordered ProAir HFA 90 mcg/inh inhalation aerosol with adapter 2, puffs, Inhalation, Every 4 hours, PRN, # 8.5 Gm, Refills 2, Tot. Refills 2, Maintenance, 04/29/19 11:32:00 EST, Aerosol, Route to Pharmacy Electronically, NCPDP_[id number], [facility], 160, cm, 04/29/19 10:47:00 EST, Height... Start Date: 04/29/19 Status: Ordered Topamax 50 mg oral tablet See Instructions, take 1 tab in am and 2 tab at bedtime. If AM dose causes bad sedation, add to HS dose., # 90 tablet, 6 Refills, Maintenance, 03/12/20 11:09:00 EST, Tablet, [facility], weaning zonegran off by [...] 6 Refills, Soft Stop, 03/12/20 11:04:00 EST, [facility], Partial [...] 0 Refills, Maintenance, 06/13/20 14:10:00 EDT, Capsule, [facility],... Start Date: 06/13/20 Status: [...] 1resolved after weight loss 2chronic perst 3gyn 57477 5testing negative insulinoma 6likley dumping sydrome 7abnormal GTT ;sugar 36 two hours into test 8sees gi 9normal CT brain 10new 115.3 cm,right per ct scan recent;seeing gynecology soon;they will review 12vit d deficiency;correct 652615 14per endocrinology monitor 15correction refer GTT; 2 hour glucose 36 16refer GGT 17seeing ortho;pre op 18asma,ama neg/cerulopalsmain wnl,AAT wnl 19Negative hep A antibody positive hep B surface antibody negative antigen negative hep C, normal ferritin 20ukltrasound Social History Social History Type Response Smoking Status Never smoker entered on: 02/20/13 Sex
--- OUTSIDE RECORDS SUMMARY | 2022-08-17 08:37 | XMS_ITS | Continuity of Care Document ---
Author Name Unknown Organization [facility] Address [address] [place] [address]- Care Team Providers Care Pipe And Test Supervisor Name Role Phone Eran Sue JOHNSON Primary Care Physician [phone] [place] [facility] [place]/18[place]22 - 06/17/22 [facility] [address] [place] [address]- [place] Allergies, Adverse Reactions, Alerts Substance Reaction Severity Status Dust Allergy to pollen Active Pollen seasonal allergies respiratory symptoms Active Incruse Ellipta 1 lightheaded and migraine Active 1dizzy Immunizations Given and Recorded Vaccine Date Status Refusal Reason [id number] 12y+ bivalent booster vax 1 12/24/21 Given [...] vaccine, inactivated 02/08/11 Give n SARS-CoV-2 mRNA (qzqbfvf-xgcn-oykkj) vax 05/01/21 Recorded zoster vaccine, inactivated 11/03/20 [...] tetanus-diphtheria toxoids (Td) 08/03/05 Given 1Result Comment: [address]-2 2Result Comment: 52105-082-14 3Result Comment: [12/07/2017] [address]-10 4Result Comment: [12/21/2016] [facility]: 68879-331-81 5Result Comment: [06/10/2015] #3 6Admin Note: per [...] 1,200 mL, 5 Refills, Maintenance,04/29/22 9:16:00 EST, [email or web address] #[id number], Partial fill upon patient request if the prescription is for a schedule II opioid drug., 158, cm, 02... Start Date: 04/29/22 Status: Ordered cetirizine 10 mg oral tablet 1 tablet, By Mouth, Daily, # 30 tablet, 5 Refills, Maintenance, 06/03/22 11:40:00 EDT, [facility], 158, cm, 05/25/22 13:59:00 [...] Refills, Maintenance, 05/30/22 7:57:00 EDT, CR Capsule, [facility], [...] 0 Refills, Maintenance, 04/09/22 15:16:00 EST,Chew Tablet, [facility] #[id number], Partial fill upon patient request if the [...] Refills, Maintenance, 04/09/22 15:16:00 EST, REC Powder, [facility] #[id number], Partial fill upon patient request if the [...] each, 0 Refills, Maintenance, 04/06/22 15:29:00 EST, [facility] #[id number], Partial fi... Start Date: 04/06/22 Status: Ordered Reclast = 5 mg, IV Infusion, Once, 0 Refills, Maintenance, 11/06/20 10:24:00 EDT, administered at [facility] 10/2020 Start Date: 11/06/20 Status: Ordered Stool Softener + Stimulant Laxative 50 mg-8.6 mg oral capsule 1 capsule, By Mouth, Daily in PM, # 60 capsule, 0 Refills, Maintenance, 04/09/22 15:17:00 EST, Capsule, [facility] #[id number], Partial fill upon patient request if the prescription is for a schedule II opioid drug., 1 capsule By Mouth Daily in P... Start Date: 04/09/22 Status: Ordered Symbicort 160mcg/4.5mcg Inhaler 2, puffs, Inhalation, 2 times a day, rinse mouth and throat after use, # 10.2 Gm, Refills 2, Tot. Refills 2, Maintenance, 06/10/22 20:48:00 EDT, Route to Pharmacy Electronically, NCPDP_[id number], [facility], 158, cm, 06/07/22 10:... [...] Active Vitamin D deficiency Confirmed Active 1gyn 58359 3testing negative insulinoma 4likley dumping sydrome 5abnormal GTT ;sugar 36 two hours into test 6normal CT brain 7new 8resolved after weight loss 9chronic perst 105.3 cm,right per ct scan recent;seeing gynecology soon;they will review 11vit d deficiency;correct 323640 13per endocrinology monitor 14correction refer GTT; 2 [...] Care Nurse Name: Sue Barillas NP Position: [facility] PCO Associate Professional Member Role: PCP Address: Address: [address] [place], [place] [address] Name: Andria Guadalupe RN Position: [facility] SN RN Member Role: Primary Care Nurse Name: Liz Martin RN Position: [facility] RN Member Role: Primary Care Nurse Name: Ambreen Mcmahon RN Position: [facility] RN Member Role: Primary Care Nurse Name: Irais Grijalva RN Position: [facility] RN Member Role: Primary Care Nurse Name: Autumn Maritnez RN Position: [facility] SN RN Member Role: Primary Care Nurse Name: Liz English RN Position: [facility] RN Member Role: Primary Care Nurse Name: Dora Williamson RN Position: [facility] RN Member Role: Primary Care Nurse Care Team Related Persons Name: KHUSHI CUNNINGHAM Address: home [address] [place] [address] Name: BHUPINDER VENEGAS Address: home [address] [place] [address] Name: FELIPE FLORES Address: home [address] [place] [address] Name: ARNAV FLORES Address: home [address] [place] [address] Name: IRINA FLORES Address: home [address] [place] [address] Name: RUSLAN FLORES Address: [address] [facility] [place] [address] Name: KAISER PLUNKETT Address: home [address] [place] [address]
--- OUTSIDE RECORDS SUMMARY | 2022-08-17 08:38 | XMS_ITS | Continuity of Care Document ---
Author Name Unknown Organization [facility] Address [address] [place] [address]- Care Team Providers Care Team Leader Name Role Phone Eran MARBLE SUPERVISOR, Sue Dahl Primary Care Physician [place] [facility] [place] [facility] Adult [address] [place] [address]- Attending Physician: Admtr, Ar8 Allergies, Adverse Reactions, Alerts Substance Reaction Severity Status Dust Allergy to pollen Active Pollen seasonal allergies respiratory symptoms Active Incruse Ellipta 1 lightheaded and migraine Active 1dizzy Immunizations Given and Recorded Vaccine Date Status Refusal Reason SARS-CoV-2 mRNA (dokjqta-pmgb-ghzfe) vax 05/01/21 Recorded influenza virus vaccine, inactivated [...] toxoids (Td) 08/03/05 Given 1Result Comment: [12/07/2017] [address]-71 2Result Comment: [12/21/2016] [facility] [place]: 84098-789-19 3Result Comment: [06/10/2015] #3 4Admin Note: per [...] 3 Refills, Maintenance, 02/03/21 8:34:00 EST, Tablet, [facility], Partial fill upon patient request if the prescript... Start Date: 02/03/21 Status: Ordered acarbose 50 mg oral tablet 1 tablet = 50 mg, By Mouth, 3 times a day, Take 1 tab (plus 1 25mg tab), 3 times daily with meals.,# 270 tablet, 3 Refills, Maintenance, 02/03/21 8:34:00 EST, Tablet, [facility], Partial [...] Refills, Maintenance, 03/03/21 16:42:00 EST, REC Powder, [facility], Partial fill [...] per PCP, # 30 mL, 1 Refills, [facility], 158, cm, 04/09/21 8:13:00 EST, Height, 80.6, kg, 03/08/21 12:18:00 EST, Dry Weight Start Date: 04/30/21 Status: Ordered Dexilant 60 mg oral delayed release capsule 1 capsule = 60 mg, By Mouth, 2 times a day, 30 min before meal, # 60 capsule, 5 Refills, Maintenance, 04/16/21 14:29:00 EST, CR Capsule, [facility], Partial fill upon patient request if the prescription is for a schedule II opioi... Start Date: 04/16/21 Status: Ordered Emgality Prefilled Pen 120 mg/mL subcutaneous solution = 240 mg, Subcutaneous Injection, Once, Loading Dose, # 2 kit, 0 Refills, Soft Stop, 03/16/21 16:05:00 EST, [facility], Partial fill upon patient request if the prescription is for a schedule II opioid drug., 158, cm, 03/11/21 9:1... Start Date: 03/16/21 Status: Ordered EPINEPHrine 1 mg/mL injectable solution 0.3 mL = 0.3 mg, Intramuscular, Once, # 1 mL, 1 Refills, Soft Stop, 03/08/21 15:07:00 EST, Solution, [facility], Partial fill [...] 1 Refills, Maintenance, 04/06/21 9:45:00 EST, Solution, [facility], Partial fill upon patient request if the prescription is for a schedule II opioid drug.... Start Date: 04/06/21 Status: Ordered loratadine 10 mg oral tablet 10 mg, 1, tablet, By Mouth, Daily, # 90 tablet, Refills 0, Tot. Refills 0, Maintenance, 05/24/21 11:12:00 EDT, Route to Pharmacy Electronically, [facility], 158, cm, 05/14/21 7:52:00 EST, Height, 80.6, kg, 03/08/21 12:18:00 EST, D... Start Date: 05/24/21 Status: Ordered meclizine 25 mg oral tablet See Instructions, PRN for dizziness, Take 1 tablet every 8 hours as needed for dizziness, # 15 tablet, 0 Refills, Maintenance, 11/03/20 7:49:00 EDT, Tablet, [facility], Partial fill upon patient request if the prescription is for... Start Date: 11/03/20 Status: Ordered montelukast 10 mg oral tablet 10 mg, 1, tablet, By Mouth, Daily in PM, # 90 tablet, Refills 1, Tot. Refills 1, Maintenance, 04/23/21 12:32:00 EST, Route to Pharmacy Electronically, [facility], 158, cm, 04/09/21 [...] 6 Refills, Maintenance, 12/10/20 12:36:00 EDT,DIS Tablet, [facility], has t... Start Date: 12/10/20 Stop Date: 07/08/21 Status: Ordered [place] 0.65% nasal spray 2 sprays, Nares, Both, 4 times a day, # 1 each, 3 Refills, Maintenance, 05/14/21 11:40:00 EST, [facility], Partial fill [...] 19:25:00 EST, Aerosol, Route to Pharmacy Electronically, [id number]_[id number], [facility], 158, cm, 05/06/21 [...] Gm, Refills 11, Route to Pharmacy Electronically, NCPDP_[id number], [facility], 158.02, cm, 11/13/20 [...] 1resolved after weight loss 2chronic perst 3gyn 37015 5testing negative insulinoma 6likley dumping sydrome 7abnormal GTT ;sugar 36 two hours into test 8sees gi 9normal CT brain 10new 115.3 cm,right per ct scan recent;seeing gynecology soon;they will review 12vit d deficiency;correct 956110 14per endocrinology monitor 15correction refer GTT; 2 [...]
--- OUTSIDE RECORDS SUMMARY | 2022-08-17 08:38 | XMS_ITS | Continuity of Care Document ---
Author Name Unknown Organization [facility] Address [address] [place] [address]- Care Team Providers Care Moisture Meter Reader Name Role Phone Louisa LANDRUM, Taras Fuentes Primary Care Physician [phone] Encounter [facility] Date(s): 06/12/20 - 07/12/20 [facility] [address] [place] [id number] Allergies, Adverse Reactions, Alerts Substance [...] toxoids (Td) 08/03/05 Given 1Result Comment: [12/07/2017] [address]-29 2Result Comment: [12/21/2016] [facility]: [id number] 3Result Comment: [06/10/2015] #3 4Admin Note: per [...] 11:32:00 EST, Aerosol, Route to Pharmacy Electronically, NCPDP_[id number], [facility], 160, [...] 1resolved after weight loss 2chronic perst 3gyn 68508 5testing negative insulinoma 6likley dumping sydrome 7abnormal GTT ;sugar 36 two hours into test 8sees gi 9normal CT brain 10new 115.3 cm,right per ct scan recent;seeing gynecology soon;they will review 12vit d deficiency;correct [id number] 14per endocrinology monitor 15correction refer GTT; 2 hour glucose 36 16refer GGT 17seeing ortho;pre op 18asma,ama neg/cerulopalsmain wnl,AAT wnl 19Negative hep A antibody positive hep B surface antibody negative antigen negative hep C, normal ferritin 20ukltrasound Social History Social History Type Response Smoking Status Never smoker entered on: 02/20/13 Sex
--- OUTSIDE RECORDS SUMMARY | 2022-08-17 08:38 | XMS_ITS | Continuity of Care Document ---
Author Name Unknown Organization [facility] Address [address] [place] [address]- Care Team Providers Care Income Tax Preparer Name Role Phone Eran ADDICTION NURSE, Sue Dahl Primary Care Physician Encounter [facility] Date(s): 12/07/21 - 01/06/22 [facility] [address] [place] [address]- Allergies, Adverse Reactions, Alerts Substance Reaction Severity Status Dust Allergy to pollen Active Pollen seasonal allergies respiratory symptoms Active Incruse Ellipta 1 lightheaded and migraine Active 1dizzy Immunizations Given and Recorded Vaccine Date Status Refusal Reason [id number] 12y+ bivalent booster vax 1 12/24/21 Given [...] vaccine, inactivated 02/08/11 Give n SARS-CoV-2 mRNA (uunyqfc-osnn-dpjek) vax 05/01/21 Recorded zoster vaccine, inactivated 11/03/20 [...] tetanus-diphtheria toxoids (Td) 08/03/05 Given 1Result Comment: [address]-4 2Result Comment: [id number] 3Result Comment: [12/07/2017] [address]-06 4Result Comment: [12/21/2016] [facility] [place]: 97574-357-29 5Result Comment: [06/10/2015] #3 6Admin Note: per pt 7Admin Note: given in clinic Medications acarbose 25 mg oral tablet See Instructions, 1 tablet with 50 mg (total 75 mg) By Mouth before lunch, # 30 each, 11 Refills, Maintenance, 11/03/21 8:24:00 EDT, Tablet, [facility], 158, cm, 11/03/21 8:01:00EDT, Height, 71.5, kg, 09/01/21 16:21:00 EDT, Dry W... Start Date: 11/03/21 Status: Ordered acarbose 50 mg oral tablet See Instructions, 1 tablet with 25 mg (total 75 mg) By Mouth before lunch, # 30 each, 11 Refills, Maintenance, 11/03/21 8:23:00 EDT, Tablet, [facility], Partial fill upon patientrequest if the prescription is for a schedule II op... Start Date: 11/03/21 Status: Ordered acetaminophen 500 mg oral tablet 2 tablet = 1,000 mg, By Mouth, Every 6 hours, PRN as needed for fever, # 200 tablet, 0 Refills, Maintenance, 12/03/21 10:17:00 EDT, Tablet, [facility], Partial fill upon patient request if the prescription is for a schedule II opi... Start Date: 12/03/21 Status: Ordered Albuterol (Eqv-ProAir HFA) 90 mcg/inh inhalation aerosol 2 puffs, Inhalation, Every 4 hours, PRN NEEDED FOR WHEEZING, # 8.5 Gm, 1 Refills, Maintenance, 12/03/21 14:16:00 EDT, [facility], 18, INHALE TWO PUFFS EVERY 4 HOURS NEEDED FOR WHEEZING, 163, cm, 12/03/21 9:39:00 EDT, Height,... Start Date: 12/03/21 Status: Ordered calcium (as citrate)-vitamin D 315 mg-250 intl units oral tablet 2 tablet, By Mouth, 2 times a day, # 120 tablet, 6 Refills, Maintenance, 11/03/21 8:23:00 EDT, Tablet, [facility], 2 tablet By [...] Refills, Maintenance, 11/22/21 9:49:00 EDT, CR Capsule, [facility], Partial fill upon patient request if the prescription is for a schedule II opioid... Start Date: 11/22/21 Status: Ordered Emgality Prefilled Pen 120 mg/mL subcutaneous solution = 120 mg, Subcutaneous Injection, Once, Maintenance Dose, # 1 kit, 6 Refills, Soft Stop, 12/30/21 12:19:00 EDT, [facility], Partial fill upon patient request if the prescription is for a schedule II opioid drug., 163, cm, 12/24/21... Start Date: 12/30/21 Status: Ordered EPINEPHrine 1 mg/mL injectable solution 0.3 mL = 0.3 mg, Intramuscular, Once, # 1 mL, 1 Refills, Soft Stop, 03/08/21 15:07:00 EST, Solution, [facility], Partial fill upon [...] 11/15/21 10:56:00 EDT, Route to Pharmacy Electronically, [facility], 158, cm, 11/03/21 8:01:00 EDT, Height, 71.5, kg, 09/01/21 16:21:00 EDT, Mark Start Date: 11/15/21 Status: Ordered montelukast 10 mg oral tablet 1, tablet, By Mouth, Daily in PM, # 90 tablet, Refills 1, Tot. Refills 1, Maintenance, 11/14/21 11:28:00 EDT, Route to Pharmacy Electronically, [facility], 158, cm, 11/03/21 8:01:00 EDT, Height, 71.5, kg, 09/01/21 16:21:00 EDT, Start Date: 11/14/21 Status: Ordered Nurtec ODT 75 mg oral tablet, disintegrating See Instructions, TAKE ONE TABLET DAILY NEEDED FOR migraines, DO NOT EXCEED ONE TABLET IN 24 HOURS, # 8 tablet, 6 Refills, Maintenance, 12/28/21 15:14:00 EDT, [facility], 163,cm, 12/24/21 8:20:00 [...] 11/23/21 19:57:00 EDT, Route to Pharmacy Electronically, NCPDP_[id number], [facility], 158, cm, 11/03/21 [...] 5 Refills, Maintenance, 12/10/21 9:44:00 EDT, Tablet, [facility], Partial fill upon [...] Active Vitamin D deficiency Confirmed Active 1gyn 82205 3testing negative insulinoma 4likley dumping sydrome 5abnormal GTT ;sugar 36 two hours into test 6sees gi 7normal CT brain 8new 9resolved after weight loss 10chronic perst 115.3 cm,right per ct scan recent;seeing gynecology soon;they will review 12vit d deficiency;correct 394636 14per endocrinology monitor 15correction refer GTT; 2 hour glucose 36 16refer GGT 17seeing ortho;pre op 18asma,ama neg/cerulopalsmain wnl,AAT wnl 19Negative hep A antibody positive hep B surface antibody negative antigen negative hep C, normal ferritin 20ukltrasound Social History Social History Type Response Smoking Status Never smoker entered on: 02/20/13 Sex Patient Care team information Personnel Name: Sue Barillas NP Address: Address: [address] [place] [id number]
--- OUTSIDE RECORDS SUMMARY | 2022-08-17 08:38 | XMS_ITS | Continuity of Care Document ---
Author Name Unknown Organization [facility] Address [address] [place] [address] ve [address] [place] [address]- Care Team Providers Care Human Resources Operations Specialist Name Role Phone Louisa LANDRUM, Taras Fuentes Primary Care Physician [phone] [place] [facility] [place](s): 06/08/20 - 07/08/[address] [place] [address]- Attending Physician: Konrad Curtis Admitting Physician: AdmtrKonrad [...] toxoids (Td) 08/03/05 Given 1Result Comment: [12/07/2017] [id number] 2Result Comment: [12/21/2016] [facility]: 32833-322-70 3Result Comment: [06/10/2015] #3 4Admin Note: per [...] 60 capsule, 5 Refills, Maintenance, 05/07/20 15:54:00EST, [facility], 160.02, cm, 05/01/20 9:18:00 EST, [...] 11:32:00 EST, Aerosol, Route to Pharmacy Electronically, NCPDP_[id number], [facility], 160, cm, 04/29/19 10:47:00 EST, Height... Start Date: 04/29/19 Status: Ordered Topamax 50 mg oral tablet See Instructions, take 1 tab in am and 2 tab at bedtime. If AM dose causes bad sedation, add to HS dose., # 90 tablet, 6 Refills, Maintenance, 03/12/20 11:09:00 EST, Tablet, [facility], weaning zonegran off by 25mg [...] 6 Refills, Soft Stop, 03/12/20 11:04:00 EST, [facility] [...] 0 Refills, Maintenance, 06/13/20 14:10:00 EDT, Capsule, [facility],... Start Date: 06/13/20 Status: Ordered [...] 1resolved after weight loss 2chronic perst 3gyn 14316 5testing negative insulinoma 6likley dumping sydrome 7abnormal GTT ;sugar 36 two hours into test 8sees gi 9normal CT brain 10new 115.3 cm,right per ct scan recent;seeing gynecology soon;they will review 12vit d deficiency;correct 504502 14per endocrinology monitor 15correction refer GTT; 2 hour glucose 36 16refer GGT 17seeing ortho;pre op 18asma,ama neg/cerulopalsmain wnl,AAT wnl 19Negative hep A antibody positive hep B surface antibody negative antigen negative hep C, normal ferritin 20ukltrasound Social History Social History Type Response Smoking Status Never smoker entered on: 02/20/13 Sex
--- OUTSIDE RECORDS SUMMARY | 2022-08-17 08:38 | XMS_ITS | Continuity of Care Document ---
Author Name Unknown Organization [facility] Address [address] [place] [address]- Care Team Providers Care Underwater Hunter Name Role Phone Eran [employer] E[employer] ANALYST, Sue Dahl Primary Care Physician En[place] [facility] [place](s): 12/09/21 - 12/16/21 [facility] [address] [place] [address]- Encounter Diagnosis Acute sinusitis(Discharge Diagnosis) - 12/09/21 Attending Physician: Not on Staff, Attending MD Allergies, Adverse Reactions, Alerts Substance Reaction Severity Status Dust Allergy to pollen Active Incruse Ellipta 1 lightheaded and migraine Active Pollen seasonal allergies respiratory symptoms Active 1dizzy Immunizations Given and Recorded Vaccine Date Status Refusal Reason SARS-CoV-2 mRNA (ofyehms-pyup-oqvkq) vax 05/01/21 Recorded influenza virus vaccine, inactivated [...] toxoids (Td) 08/03/05 Given 1Result Comment: [12/07/2017] [address]-28 2Result Comment: [12/21/2016] [facility]: [id number] 3Result Comment: [06/10/2015] #3 4Admin Note: per pt 5Admin Note: given in clinic Medications acarbose 25 mg oral tablet See Instructions, 1 tablet with 50 mg (total 75 mg) By Mouth before lunch, # 30 each, 11 Refills, Maintenance, 11/03/21 8:24:00 EDT, Tablet, [facility], 158, cm, 11/03/21 8:01:00EDT, Height, 71.5, kg, 09/01/21 16:21:00 EDT, Dry W... Start Date: 11/03/21 Status: Ordered acarbose 50 mg oral tablet See Instructions, 1 tablet with 25 mg (total 75 mg) By Mouth before lunch, # 30 each, 11 Refills, Maintenance, 11/03/21 8:23:00 EDT, Tablet, [facility], Partial fill upon patientrequest if the prescription is for a schedule II op... Start Date: 11/03/21 Status: Ordered acetaminophen 500 mg oral tablet 2 tablet = 1,000 mg, By Mouth, Every 6 hours, PRN as needed for fever, # 200 tablet, 0 Refills, Maintenance, 12/03/21 10:17:00 EDT, Tablet, [facility], Partial fill upon patient request if the prescription is for a schedule II opi... Start Date: 12/03/21 Status: Ordered Albuterol (Eqv-ProAir HFA) 90 mcg/inh inhalation aerosol 2 puffs, Inhalation, Every 4 hours, PRN NEEDED FOR WHEEZING, # 8.5 Gm, 1 Refills, Maintenance, 12/03/21 14:16:00 EDT, [facility], 18, INHALE TWO PUFFS EVERY 4 HOURS NEEDED FOR WHEEZING, 163, cm, 12/03/21 9:39:00 EDT, Height,... Start Date: 12/03/21 Status: Ordered Azithromycin 5 Day Dose Pack 250 mg oral tablet 1 pack/packet, By Mouth, Once, as directed on package labeling, # 6 tablet, 0 Refills, Soft Stop, 12/09/21 8:40:00 EDT, Tablet, [facility], 163, cm, 12/09/21 8:24:00 EDT, Height,67, kg, 11/26/21 7:58:00 EDT, Dry Weight Start Date: 12/09/21 Status: Ordered calcium (as citrate)-vitamin D 315 mg-250 intl units oral tablet 2 tablet, By Mouth, 2 times a day, # 120 tablet, 6 Refills, Maintenance, 11/03/21 8:23:00 EDT, Tablet, [facility], 2 tablet By Mouth [...] Refills, Maintenance, 11/22/21 9:49:00 EDT, CR Capsule, [facility], Partial fill upon patient request if the prescription is for a schedule II opioid... Start Date: 11/22/21 Status: Ordered Emgality Prefilled Pen 120 mg/mL subcutaneous solution = 120 mg, Subcutaneous Injection, Once, Maintenance Dose, # 1 kit, 6 Refills, Soft Stop, 06/29/21 10:09:00 EDT, [facility], Partial fill upon patient request if the prescription is for a schedule II opioid drug., 158, cm, 06/29/21... Start Date: 06/29/21 Status: Ordered EPINEPHrine 1 mg/mL injectable solution 0.3 mL = 0.3 mg, Intramuscular, Once, # 1 mL, 1 Refills, Soft Stop, 03/08/21 15:07:00 EST, Solution, [facility], Partial fill upon patient [...] 11/15/21 10:56:00 EDT, Route to Pharmacy Electronically, [facility], 158, cm, 11/03/21 8:01:00 EDT, Height, 71.5, kg, 09/01/21 16:21:00 EDTMark Start Date: 11/15/21 Status: Ordered montelukast 10 mg oral tablet 1, tablet, By Mouth, Daily in PM, # 90 tablet, Refills 1, Tot. Refills 1, Maintenance, 11/14/21 11:28:00 EDT, Route to Pharmacy Electronically, [facility], 158, cm, 11/03/21 8:01:00 [...] 6 Refills, Maintenance, 12/10/20 12:36:00 EDT,DIS Tablet, [facility], has t... Start Date: [...] 11/23/21 19:57:00 EDT, Route to Pharmacy Electronically, NCPDP_[id number], [facility], 158, cm, 11/03/21 8:0... [...] 5 Refills, Maintenance, 12/10/21 9:44:00 EDT, Tablet, [facility], Partial fill upon patient [...] 1resolved after weight loss 2chronic perst 3gyn 47105 5testing negative insulinoma 6likley dumping sydrome 7abnormal GTT ;sugar 36 two hours into test 8sees gi 9normal CT brain 10new 115.3 cm,right per ct scan recent;seeing gynecology soon;they will review 12vit d deficiency;correct 945675 14per endocrinology monitor 15correction refer GTT; 2 hour glucose 36 16refer GGT 17seeing ortho;pre op 18asma,ama neg/cerulopalsmain wnl,AAT wnl 19Negative hep A antibody positive hep B surface antibody negative antigen negative hep C, normal ferritin 20ukltrasound Diagnosis Diagnosis Type Effective Dates Health Status Cl inical Service Informant Acute sinusitis Discharge Diagnosis 12/09/21 Vital Signs Most recent to oldest [Reference Range]: 1 Height 163 cm (12/09/21 8:24 AM) Weight 67.6 kg (12/09/21 8:24 AM) Oxygen Saturation [94-100 %] 98 % (12/09/21 8:24 AM) Pulse Rate [55-90 bpm] 88 bpm (12/09/21 8:24 AM) Body Mass Index [18.5-24.99 kg/m2] 25.44 kg/m2 *H* (12/09/21 8:24 AM) Blood Pressure [90-138/55-84 mm Hg] 104/ 66mm Hg (12/09/21 8:24 AM) Temperature [96.8-100.4 DegF] 98.0 DegF (12/09/21 8:24 AM) Mode of Delivery (Oxygen) Room air (12/09/21 8:24 AM) Blood pressure sites Arm, left (12/09/21 8:24 AM) Temperature Route Oral (12/09/21 8:24 AM) Weight Obtained Via Standing scale (12/09/21 8:24 AM) Social History Social History Type Response Smoking Status Never smoker entered on: 02/20/13 Sex Patient Care team information Personnel Name: Sue Barillas NP Address: Address: [address] [place] [phone]
--- OUTSIDE RECORDS SUMMARY | 2022-08-17 08:38 | XMS_ITS | Continuity of Care Document ---
Author Name Unknown Organization [facility] Address [address] [place] [address]- Care Team Providers Care Hearing Aid Mechanic Name Role Phone Eran Sue JOHNSON Primary Care Physician Encounter [facility] Date(s): 05/30/22 - 06/29/22 [facility] [address] [place] [address]- [place] Allergies, Adverse Reactions, Alerts Substance Reaction Severity Status Dust Allergy to pollen Active Pollen seasonal allergies respiratory symptoms Active Incruse Ellipta 1 lightheaded and migraine Active 1dizzy Immunizations Given and Recorded Vaccine Date Status Refusal Reason [id number] 12y+ bivalent booster vax 1 12/24/21 Given [...] vaccine, inactivated 02/08/11 Give n SARS-CoV-2 mRNA (msvhqpi-doqv-jfjao) vax 05/01/21 Recorded zoster vaccine, inactivated 11/03/20 [...] tetanus-diphtheria toxoids (Td) 08/03/05 Given 1Result Comment: [id number] 2Result Comment: [id number] 3Result Comment: [12/07/2017] [address]-05 4Result Comment: [12/21/2016] [facility]: 62484-878-99 5Result Comment: [06/10/2015] #3 6Admin Note: per pt 7Admin Note: given in clinic Medications acetaminophen 500 mg oral tablet 2 tablet = 1,000 mg, By Mouth, Every 6 hours, PRN as needed for fever, # 200 tablet, 0 Refills, Maintenance, 12/03/21 10:17:00 EDT, Tablet, [facility], Partial fill upon patient request if the prescription is for a schedule II opi... Start Date: 12/03/21 Status: Ordered Albuterol (Eqv-ProAir HFA) 90 mcg/inh inhalation aerosol 2 puffs, Inhalation, Every 4 hours, PRN NEEDED FOR WHEEZING, # 8.5 Gm, 5 Refills, Maintenance, 03/09/22 11:21:00 EST, [facility], 17, INHALE TWO PUFFS BY [...] 6 Refills, Maintenance, 11/03/21 8:23:00 EDT, Tablet, [facility], 2 tablet By Mouth 2 times a day, 158, cm, 11/03/21 8:01:00 EDT,Height, 71.5, kg, 09/01/21 16:21:00 EDT, Dry Weight Start Date: 11/03/21 Status: Ordered Carafate 1 gm/10 ml oral suspension 10 mL = 1 Gm, By Mouth, 3 times a day before meals and bedtime, # 1,200 mL, 5 Refills, Maintenance,04/29/22 9:16:00 EST, [id number], Partial fill upon patient request if the prescription is for a schedule II opioid drug., 158, cm, 02... Start Date: 04/29/22 Status: Ordered cetirizine 10 mg oral tablet 1 tablet, By Mouth, Daily, # 30 tablet, 5 Refills, Maintenance, 06/03/22 11:40:00 EDT, [facility], 158, cm, 05/25/22 13:59:00 EDT, [...] Refills, Maintenance, 05/30/22 7:57:00 EDT, CR Capsule, [facility], Partial fill upon patient request if the prescription is for a schedule II opioid... Start Date: 05/30/22 Status: Ordered Emgality Prefilled Pen 120 mg/mL subcutaneous solution = 120 mg, Subcutaneous Injection, Once, Maintenance Dose, # 3 kit, 2 Refills, Soft Stop, 03/17/22 8:08:00 EST, [facility], requesting 3 month supply for cheaper martinez. with 2 refills, 163, albertina, 03/15/22 10:13:00 EST, Height, 68.1,... Start Date: 03/17/22 Status: Ordered EPINEPHrine 1 mg/mL injectable solution 0.3 mL = 0.3 mg, Intramuscular, Once, # 1 mL, 1 Refills, Soft Stop, 03/08/21 15:07:00 EST, Solution, [facility], Partial fill upon patient request if the prescription is for a schedule II opioid drug., 158, cm, 03/08/21 12:18:00 E... Start Date: 03/08/21 Status: Ordered famotidine 40 mg oral tablet 1 tablet = 40 mg, By Mouth, 2 times a day, # 60 tablet, 6 Refills, Maintenance, 01/31/22 14:05:00 EST, Suspension, [facility], Partial fill upon patient request if the prescription is for a schedule II opioid drug., 163, cm, 01/18... Start Date: 01/31/22 Stop Date: 08/29/22 Status: Ordered Fiber Choice 1.5 g oral tablet, chewable 1 tablet = 1.5 Gm, Chew, 3 times a day, # 90 tablet, 0 Refills, Maintenance, 04/09/22 15:16:00 EST,Chew Tablet, [facility] #[id number], Partial fill upon patient request if the [...] Refills, Maintenance, 04/09/22 15:16:00 EST, REC Powder, [facility] #[id number], Partial fill upon patient request if the prescription is for a schedule II opioid drug., 17 Gm... Start Date: 04/09/22 Status: Ordered montelukast 10 mg oral tablet 1, tablet, By Mouth, Daily in PM, # 90 tablet, Refills 1, Tot. Refills 1, Maintenance, 11/14/21 11:28:00 EDT, Route to Pharmacy Electronically, [facility], 158, cm, 11/03/21 8:01:00 EDT, Height, 71.5, kg, 09/01/21 16:21:00 EDT, . Start Date: 11/14/21 Status: Ordered Nurtec ODT 75 mg oral tablet, disintegrating See Instructions, TAKE ONE TABLET DAILY NEEDED FOR migraines, DO NOT EXCEED ONE TABLET IN 24 HOURS, # 8 tablet, 6 Refills, Maintenance, 12/28/21 15:14:00 EDT, [facility], 163,cm, 12/24/21 8:20:00 EDT, Height, [...] each, 0 Refills, Maintenance, 04/06/22 15:29:00 EST, [facility] #[id number], Partial fi... Start Date: 04/06/22 Status: Ordered Reclast = 5 mg, IV Infusion, Once, 0 Refills, Maintenance, 11/06/20 10:24:00 EDT, administered at [facility] 10/2020 Start Date: 11/06/20 Status: Ordered Stool Softener + Stimulant Laxative 50 mg-8.6 mg oral capsule 1 capsule, By Mouth, Daily in PM, # 60 capsule, 0 Refills, Maintenance, 04/09/22 15:17:00 EST, Capsule, [facility] #[id number], Partial fill upon patient request if the prescription is for a schedule II opioid drug., 1 capsule By Mouth Daily in P... Start Date: 04/09/22 Status: Ordered Symbicort 160mcg/4.5mcg Inhaler 2, puffs, Inhalation, 2 times a day, rinse mouth and throat after use, # 10.2 Gm, Refills 2, Tot. Refills 2, Maintenance, 06/10/22 20:48:00 EDT, Route to Pharmacy Electronically, NCPDP_[id number], [facility], 158, cm, 06/07/22 10:... Start [...] Active Vitamin D deficiency Confirmed Active 1gyn 04974 3testing negative insulinoma 4likley dumping sydrome 5abnormal GTT ;sugar 36 two hours into test 6normal CT brain 7new 8resolved after weight loss 9chronic perst 105.3 cm,right per ct scan recent;seeing gynecology soon;they will review 11vit d deficiency;correct 562118 13per endocrinology monitor 14correction refer GTT; 2 [...] Care Nurse Name: Sue Barillas NP Position: [facility] PCO Associate Professional Member Role: PCP Address: Address: [address] [place], [place] [address] Name: Andria Guadalupe RN Position: [facility] SN RN Member Role: Primary Care Nurse Name: Liz Martin RN Position: [facility] RN Member Role: Primary Care Nurse Name: Ambreen Mcmahon RN Position: [facility] RN Member Role: Primary Care Nurse Name: Irais Grijalva RN Position: [facility] RN Member Role: Primary Care Nurse Name: Autumn Martinez RN Position: [facility] SN RN Member Role: Primary Care Nurse Name: Liz English RN Position: [facility] RN Member Role: Primary Care Nurse Name: Dora Williamson RN Position: [facility] RN Member Role: Primary Care Nurse Care Team Related Persons Name: KHUSHI CUNNINGHAM Address: home [address] [place] [address] Name: BHUPINDER VENEGAS Address: home [address] [place] [address] Name: FELIPE FLORES Address: home [address] [place] [address] Name: ARNAV FLORES Address: home [address] [place] [address] Name: IRINA FLORES Address: home [address] [place] [address] Name: RUSLAN FLORES Address: home [address] [facility] [address] [place] [address] Name: KAISER PLUNKETT Address: home [address] [place] [address]
--- OUTSIDE RECORDS SUMMARY | 2022-08-17 08:38 | XMS_ITS | Continuity of Care Document ---
Author Name Unknown Organization [facility] Address [address] [place] [address]- Care Team Providers Care Collaborative Teacher Name Role Phone Louisa LANDRUM, Taras Fuentes Primary Care Physician Encounter [facility] Date(s): 06/12/20 - 07/12/20 [facility] [address] [place] [id number] Allergies, Adverse Reactions, Alerts Substance [...] toxoids (Td) 08/03/05 Given 1Result Comment: [12/07/2017] [address]-09 2Result Comment: [12/21/2016] [facility]: [id number] 3Result Comment: [06/10/2015] #3 4Admin Note: per [...] 11:32:00 EST, Aerosol, Route to Pharmacy Electronically, NCPDP_[id number], [facility] [...] 1resolved after weight loss 2chronic perst 3gyn 29207 5testing negative insulinoma 6likley dumping sydrome 7abnormal GTT ;sugar 36 two hours into test 8sees gi 9normal CT brain 10new 115.3 cm,right per ct scan recent;seeing gynecology soon;they will review 12vit d deficiency;correct 636857 14per endocrinology monitor 15correction refer GTT; 2 hour glucose 36 16refer GGT 17seeing ortho;pre op 18asma,ama neg/cerulopalsmain wnl,AAT wnl 19Negative hep A antibody positive hep B surface antibody negative antigen negative hep C, normal ferritin 20ukltrasound Social History Social History Type Response Smoking Status Never smoker entered on: 02/20/13 Sex
--- OUTSIDE RECORDS SUMMARY | 2022-08-17 08:38 | XMS_ITS | Continuity of Care Document ---
Author Name Unknown Organization [facility] Address [address] [place] [address] [address] [place] [address]- Care Team Providers Care Laborer Car Barn Name Role Phone Sue Barillas NP Primary Care Physician [phone] Encounter [facility] Date(s): 03/15/22 - 03/22/[address] [place] [address]- Attending Physician: Avery Costello MD Referring Physician: Sue Barillas NP Allergies, Adverse Reactions, Alerts Substance Reaction Severity Status Dust Allergy to pollen Active Pollen seasonal allergies respiratory symptoms Active Incruse Ellipta 1 lightheaded and migraine Active 1dizzy Immunizations Given and Recorded Vaccine Date Status Refusal Reason [id number] 12y+ bivalent booster vax 1 12/24/21 Given [...] vaccine, inactivated 02/08/11 Give n SARS-CoV-2 mRNA (hwuwelw-faoz-nfyew) vax 05/01/21 Recorded zoster vaccine, inactivated 11/03/20 [...] tetanus-diphtheria toxoids (Td) 08/03/05 Given 1Result Comment: [id number] 2Result Comment: [id number] 3Result Comment: [12/07/2017] [address]-67 4Result Comment: [12/21/2016] [facility]: [id number] 5Result Comment: [06/10/2015] #3 6Admin Note: per pt 7Admin Note: given in clinic Medications acetaminophen 500 mg oral tablet 2 tablet = 1,000 mg, By Mouth, Every 6 hours, PRN as needed for fever, # 200 tablet, 0 Refills, Maintenance, 12/03/21 10:17:00 EDT, Tablet, [facility], Partial fill upon patient request if the prescription is for a schedule II opi... Start Date: 12/03/21 Status: Ordered Albuterol (Eqv-ProAir HFA) 90 mcg/inh inhalation aerosol 2 puffs, Inhalation, Every 4 hours, PRN NEEDED FOR WHEEZING, # 8.5 Gm, 5 Refills, Maintenance, 03/09/22 11:21:00 EST, [facility], 17, INHALE TWO PUFFS [...] Refills, Maintenance, 11/03/21 8:23:00 EDT, Tablet, [facility], 2 tablet By Mouth [...] Refills, Maintenance, 11/22/21 9:49:00 EDT, CR Capsule, [facility], Partial fill upon patient request if the prescription is for a schedule II opioid... Start Date: 11/22/21 Status: Ordered Emgality Prefilled Pen 120 mg/mL subcutaneous solution = 120 mg, Subcutaneous Injection, Once, Maintenance Dose, # 3 kit, 2 Refills, Soft Stop, 03/17/22 8:08:00 EST, [facility], requesting 3 month supply for cheaper martinez. with 2 refills, 163, cm, 03/15/22 10:13:00 EST, Height, 68.1,... Start Date: 03/17/22 Status: Ordered EPINEPHrine 1 mg/mL injectable solution 0.3 mL = 0.3 mg, Intramuscular, Once, # 1 mL, 1 Refills, Soft Stop, 03/08/21 15:07:00 EST, Solution, [facility], Partial fill upon patient request if the prescription is for a schedule II opioid drug., 158, cm, 03/08/21 12:18:00 E... Start Date: 03/08/21 Status: Ordered famotidine 40 mg oral tablet 1 tablet = 40 mg, By Mouth, 2 times a day, # 60 tablet, 6 Refills, Maintenance, 01/31/22 14:05:00 EST, Suspension, [facility], Partial fill upon patient [...] 11:28:00 EDT, Route to Pharmacy Electronically, [facility], 158, cm, 11/03/21 8:01:00 EDT, Height, 71.5, kg, 09/01/21 16:21:00 EDT, Start Date: 11/14/21 Status: Ordered Nurtec ODT 75 mg oral tablet, disintegrating See Instructions, TAKE ONE TABLET DAILY NEEDED FOR migraines, DO NOT EXCEED ONE TABLET IN 24 HOURS, # 8 tablet, 6 Refills, Maintenance, 12/28/21 15:14:00 EDT, [facility], 163,cm, 12/24/21 8:20:00 EDT, [...] 11/23/21 19:57:00 EDT, Route to Pharmacy Electronically, NCPDP_[id number], [facility], 158, cm, 11/03/21 8:0... [...] 5 Refills, Maintenance, 12/10/21 9:44:00 EDT, Tablet, [facility], Partial fill upon patient [...] Active Vitamin D deficiency Confirmed Active 1gyn 60726 3testing negative insulinoma 4likley dumping sydrome 5abnormal GTT ;sugar 36 two hours into test 6normal CT brain 7new 8resolved after weight loss 9chronic perst 105.3 cm,right per ct scan recent;seeing gynecology soon;they will review 11vit d deficiency;correct 501804 13per endocrinology monitor 14correction refer GTT; 2 hour glucose 36 15refer GGT 16seeing ortho;pre op 17asma,ama neg/cerulopalsmain wnl,AAT wnl 18Negative hep A antibody positive hep B surface antibody negative antigen negative hep C, normal ferritin 19ukltrasound Vital Signs Most recent to oldest [Reference Range]: 1 Height 163 cm (03/15/22 10:13 AM) Weight 64.4 kg (03/15/22 10:13 AM) Pulse Rate [55-90 bpm] 80 bpm (03/15/22 10:13 AM) Body Mass Index [18.5-24.99 kg/m2] 24.24 kg/m2 (03/15/22 10:13 AM) Blood Pressure [90-138/55-84 mm Hg] 114/ 83mm Hg (03/15/22 10:13 AM) Respiratory Rate [16-30 br/min] 16 br/mi n (03/15/22 10:13 AM) Temperature [96.8-100.4 DegF] 97.1 DegF (03/15/22 10:13 AM) Blood pressure sites Arm, left (03/15/22 10:13 AM) Temperature Route Temporal (03/15/22 10:13 AM) Weight Obtained Via Standing scale (03/15/22 10:13 AM) Social History Social History Type Response Smoking Status Never smoker entered on: 02/20/13 Sex Patient Care team information Care Team Personnel Name: Caitlyn Mcgee RN Position: [facility] RN Member Role: Primary Care Nurse Name: Sue Barillas NP Position: [facility] PCO Associate Professional Member Role: PCP Address: Address: [address] [place] [id number] Name: Andria Guadalupe RN Position: [facility] [...] Persons Name: KHUSHI CUNNINGHAM Address: home [address] [facility] [place] [address] Name: BHUPINDER VENEGAS Address: [address] [place] [address] Name: FELIPE FLORES Address: home [address] [place] [address] Name: ARNAV FLORES Address: home [address] [place] [address] Name: IRINA FLORES Address: home [address] [place] [address] Name: RUSLAN FLORES Address: home [address] [facility] [address] [address] [place] [address] Name: KAISER PLUNKETT Address: home [address] [place] [address]
--- OUTSIDE RECORDS SUMMARY | 2022-08-17 08:38 | XMS_ITS | Continuity of Care Document ---
Author Name Unknown Organization [facility] Address [address] [place] [address]- Care Team Providers Care Laundry Operator Wash Room Name Role Phone Eran ELIZABETH, Sue Dahl Primary Care Physician Encounter [facility] Date(s): 01/05/22 - 02/04/22 [facility] [address] [place] [id number] Allergies, Adverse Reactions, Alerts Substance Reaction Severity Status Dust Allergy to pollen Active Pollen seasonal allergies respiratory symptoms Active Incruse Ellipta 1 lightheaded and migraine Active 1dizzy Immunizations Given and Recorded Vaccine Date Status Refusal Reason [id number] 12y+ bivalent booster vax 1 12/24/21 Given [...] vaccine, inactivated 02/08/11 Give n SARS-CoV-2 mRNA (vkjoasi-vajk-aepod) vax 05/01/21 Recorded zoster vaccine, inactivated 11/03/20 [...] tetanus-diphtheria toxoids (Td) 08/03/05 Given 1Result Comment: [id number] 2Result Comment: [id number] 3Result Comment: [12/07/2017] [address]-75 4Result Comment: [12/21/2016] [facility]: 24440-612-89 5Result Comment: [06/10/2015] #3 6Admin Note: per pt 7Admin Note: given in clinic Medications acarbose 25 mg oral tablet See Instructions, 1 tablet with 50 mg (total 75 mg) By Mouth before lunch, # 30 each, 11 Refills, Maintenance, 11/03/21 8:24:00 EDT, Tablet, [facility], 158, cm, 11/03/21 8:01:00EDT, Height, 71.5, kg, 09/01/21 16:21:00 EDT, Dry W... Start Date: 11/03/21 Status: Ordered acarbose 50 mg oral tablet See Instructions, 1 tablet with 25 mg (total 75 mg) By Mouth before lunch, # 30 each, 11 Refills, Maintenance, 11/03/21 8:23:00 EDT, Tablet, [facility], Partial fill upon patientrequest [...] Gm, 1 Refills, Maintenance, 12/03/21 14:16:00 EDT, [facility], 18, INHALE TWO PUFFS [...] 6 Refills, Soft Stop, 12/30/21 12:19:00 EDT, [facility], Partial fill upon [...] 11/15/21 10:56:00 EDT, [facility] to Pharmacy Electronically, [facility] [...] tablet, 0 Refills, Maintenance, 01/18/22 8:00:00 EST, [facility], Partial fill [...] 11/23/21 19:57:00 EDT, Route to Pharmacy Electronically, NCPDP_[id number], [facility], 158, cm, 11/03/21 [...] Active Vitamin D deficiency Confirmed Active 1gyn 71466 3testing negative insulinoma 4likley dumping sydrome 5abnormal GTT ;sugar 36 two hours into test 6sees gi 7normal CT brain 8new 9resolved after weight loss 10chronic perst 115.3 cm,right per ct scan recent;seeing gynecology soon;they will review 12vit d deficiency;correct 970462 14per endocrinology monitor 15correction refer GTT; 2 [...] Care Nurse Name: Sue Barillas NP Position: [facility] PCO Associate Professional Member Role: PCP Address: Address: [address] [place] [address], [place] [address]- Name: Andria Guadalupe RN [facility] [...] Persons Name: KHUSHI CUNNINGHAM Address: home [address] [place] [address] Name: BHUPINDER VENEGAS Address: home [address] [place] [address] Name: FELIPE FLORES Address: home [address] [place] [address] Name: ARNAV FLORES Address: home [address] [place] [address] Name: IRINA FLORES Address: home [address] [place], [place] Name: RUSLAN FLORES Address: home [address] [place], [place] Name: KAISER PLUNKETT Address: home [address] [place] [address]
--- OUTSIDE RECORDS SUMMARY | 2022-08-17 08:38 | XMS_ITS | Continuity of Care Document ---
Author Name Unknown Organization [facility] Address [address] [place] [address]- Care Team Providers Care Brusher Name Role Phone Louisa LANDRUM, Taras Fuentes Primary Care Physician [phone] Encounter [facility] Date(s): 04/21/20 - 05/21/20 [facility] [address] [place] [address]- Allergies, Adverse Reactions, Alerts Substance Reaction Severity [...] toxoids (Td) 08/03/05 Given 1Result Comment: [12/07/2017] [id number] 2Result Comment: [12/21/2016] [facility]: 13805-971-83 3Result Comment: [06/10/2015] #3 4Admin Note: per [...] 11:32:00 EST, Aerosol, Route to Pharmacy Electronically, NCPDP_[id number], [facility], 160, [...] perst 3folowed by mental health;recent hospitalization 4gyn 11963 6testing negative insulinoma 7likley dumping sydrome 8abnormal GTT ;sugar 36 two hours into test 9sees gi 10normal CT brain 11new 125.3 cm,right per ct scan recent;seeing gynecology soon;they will review 13vit d deficiency;correct 966514 15per endocrinology monitor 16correction refer GTT; 2 hour glucose 36 17refer GGT 18seeing ortho;pre op 19asma,ama neg/cerulopalsmain wnl,AAT wnl 20Negative hep A antibody positive hep B surface antibody negative antigen negative hep C, normal ferritin 21ukltrasound Social History Social History Type Response Smoking Status Never smoker entered on: 02/20/13 Sex
--- OUTSIDE RECORDS SUMMARY | 2022-08-17 08:39 | XMS_ITS | Continuity of Care Document ---
Author Name Unknown Organization [facility] Address [address] [place] [address]- Care Team Providers Care Special Officer Automat Name Role Phone Eran GEOLOGICAL TECHNICIAN, Sue Dahl Primary Care Physician Encounter [facility] Date(s): 04/27/21 - 05/27/21 [facility] [address] [place] [address]- Allergies, Adverse Reactions, Alerts Substance Reaction Severity Status Dust Allergy to pollen Active Pollen seasonal allergies respiratory symptoms Active Incruse Ellipta 1 lightheaded and migraine Active 1dizzy Immunizations Given and Recorded Vaccine Date Status Refusal Reason SARS-CoV-2 mRNA (xbhprhz-fozs-zeocj) vax 05/01/21 Recorded influenza virus vaccine, inactivated [...] toxoids (Td) 08/03/05 Given 1Result Comment: [12/07/2017] [id number] 2Result Comment: [12/21/2016] [facility]: [id number] 3Result Comment: [06/10/2015] #3 4Admin Note: per [...] # 30 mL, 1 Refills, [facility], 158, cm, 04/09/21 8:13:00 EST, Height, 80.6, kg, 03/08/21 12:18:00 EST, Dry Weight Start Date: 04/30/21 Status: Ordered Dexilant 60 mg oral delayed release capsule 1 capsule = 60 mg, By Mouth, 2 times a day, 30 min before meal, # 60 capsule, 5 Refills, Maintenance, 04/16/21 14:29:00 EST, CR Capsule, [facility], Partial [...] Maintenance, 04/06/21 9:45:00 EST, Solution, [facility], Partial fill upon patient request if the prescription is for a schedule II opioid drug.... Start Date: 04/06/21 Status: Ordered loratadine 10 mg oral tablet 10 mg, 1, tablet, By Mouth, Daily, # 90 tablet, Refills 0, Tot. Refills 0, Maintenance, 05/24/21 11:12:00 EDT, Route to Pharmacy Electronically, [facility], 158, cm, 05/14/21 7:52:00 EST, Height, [...] EST, Route to Pharmacy Electronically, [facility], 158, cm, 04/09/21 8:13:00 EST, Height, [...] Date: 12/10/20 Stop Date: 07/08/21 Status: Ordered Wells 0.65% nasal spray 2 sprays, Nares, Both, 4 times a day, # 1 each, 3 Refills, Maintenance, 05/14/21 11:40:00 EST, [facility], Partial fill [...] 19:25:00 EST, Aerosol, Route to Pharmacy Electronically, NCPDP_[id number], [facility], 158, cm, 05/06/21 6:58:00 EST, Height, [...] Gm, Refills 11, Route to Pharmacy Electronically, NCPDP_[id number], [facility], 158.02, cm, 11/13/20 [...] 1resolved after weight loss 2chronic perst 3gyn 08582 5testing negative insulinoma 6likley dumping sydrome 7abnormal GTT ;sugar 36 two hours into test 8sees gi 9normal CT brain 10new 115.3 cm,right per ct scan recent;seeing gynecology soon;they will review 12vit d deficiency;correct 684518 14per endocrinology monitor 15correction refer GTT; 2 hour glucose 36 16refer GGT 17seeing ortho;pre op 18asma,ama neg/cerulopalsmain wnl,AAT wnl 19Negative hep A antibody positive hep B surface antibody negative antigen negative hep C, normal ferritin 20ukltrasound Social History Social History Type Response Smoking Status Never smoker entered on: 02/20/13 Sex
--- OUTSIDE RECORDS SUMMARY | 2022-08-17 08:39 | XMS_ITS | Continuity of Care Document ---
Author Name Unknown Organization [facility] Address [address] [facility], [address]r d Floor, [address] [place] [id number]- Care Team Providers Care Transportation Superintendent Name Role Phone Louisa LANDRUM, Taras Fuentes Primary Care Physician [phone] Encounter [facility] ACCT R [id number] Date(s): 05/30/19 - 06/09/19 [facility] [address], [address] Floor, [address] [place] [id number]- [facility] Attending Physician: Konrad Curtis Admitting Physician: AdmtrKonrad [...] toxoids (Td) 08/03/05 Given 1Result Comment: [12/07/2017] [address]-54 2Result Comment: [12/21/2016] [facility]: [id number] 3Result Comment: [06/10/2015] #3 4Admin Note: per [...] [facility], 160, cm, 05/16/19 10:27:00 EDT, Height, [...] to Pharmacy Electronically, [facility], 158, cm, 02/14/19 7:55:00 EST, Height, 61.9, kg, 02/12/19 10:17:00... Start Date: 02/25/19 Status: Ordered ProAir HFA 90 mcg/inh inhalation aerosol with adapter 2, puffs, Inhalation, Every 4 hours, PRN, # 8.5 Gm, Refills 2, Tot. Refills 2, Maintenance, 04/29/19 11:32:00 EST, Aerosol, Route to Pharmacy Electronically, NCPDP_[id number], [facility], 160, cm, 04/29/19 10:47:00 EST, Height... Start Date: 04/29/19 Status: Ordered rizatriptan 10 mg oral tablet 1 tablet = 10 mg, By Mouth, Daily, PRN for migraine headache, # 9 tablet, 5 Refills, Soft Stop, 06/04/19 15:37:00 EDT, Tablet, [facility], sumatriptan ineffective. If insurance says no [...] Maintenance, 05/30/19 11:48:00 EDT, Capsule, [facility], 160, cm, [...] perst 3folowed by mental health;recent hospitalization 4gyn 66754 6testing negative insulinoma 7likley dumping sydrome 8abnormal GTT ;sugar 36 two hours into test 9sees gi 10normal CT brain 11new 125.3 cm,right per ct scan recent;seeing gynecology soon;they will review 13vit d deficiency;correct 284053 15per endocrinology monitor 16correction refer GTT; 2 hour glucose 36 17refer GGT 18seeing ortho;pre op 19asma,ama neg/cerulopalsmain wnl,AAT wnl 20Negative hep A antibody positive hep B surface antibody negative antigen negative hep C, normal ferritin 21ukltrasound Social History Social History Type Response Smoking Status Never smoker entered on: 02/20/13 Sex
--- OUTSIDE RECORDS SUMMARY | 2022-08-17 08:39 | XMS_ITS | Continuity of Care Document ---
Author Name Unknown Organization [facility] Address [address] [place] [address]- Care Team Providers Care Repair Table Operator Name Role Phone Louisa LANDRUM, Taras Fuentes Primary Care Physician [phone] Encounter [facility] Date(s): 06/15/20 - 07/15/20 [facility] [address] [place] [id number] Allergies, Adverse Reactions, Alerts Substance [...] toxoids (Td) 08/03/05 Given 1Result Comment: [12/07/2017] [address]-55 2Result Comment: [12/21/2016] [facility]: [id number] 3Result Comment: [06/10/2015] #3 4Admin Note: per pt 5Admin Note: given in clinic Medications acarbose 25 mg oral tablet 1 tablet = 25 mg, By Mouth, 3 times a day, Take 1 tablet 3 times daily with meals. Add to 50mg dosefor total of 75mg 3 times daily. E11.65, # 270 tablet, 3 Refills, Maintenance, 07/15/20 12:23:00 EDT, Tablet, [facility], Partial... Start Date: 07/15/20 Status: Ordered acarbose 50 mg oral tablet 1 tablet = 50 mg, By Mouth, 3 times a day, Take 3 times daily with meals. E11.65, # 90 tablet, 5 Refills, Maintenance, 07/13/20 16:29:00 EDT, Tablet, [facility], Partial [...] 0 Refills, Maintenance, 07/03/19 13:59:00 EDT, Solution, [facility], 160, cm, 05/29/19 13:36:00 [...] 60 capsule, 5 Refills, Maintenance, 05/07/20 15:54:00EST, [facility], 160.02, cm, 05/01/20 9:18:00 [...] 1 Refills, Soft Stop, 11/20/19 11:59:00 EDT, [facility], 160.02, cm, 11/15/19 10:05:00 [...] 02/25/19 16:55:00 EST, Route to Pharmacy Electronically, [facility], 158, cm, 02/14/19 7:55:00 EST, Height, 61.9, kg, 02/12/19 10:17:00... Start Date: 02/25/19 Status: Ordered montelukast 10 mg oral tablet 10 mg, 1, tablet, By Mouth, Daily in PM, # 90 tablet, Refills 3, Tot. Refills 3, Maintenance, 08/15/19 16:21:00 EDT, Route to Pharmacy Electronically, [facility], 160, cm, 08/15/19 13:45:00 EDT, Height, 56.5, kg, 05/29/19 13:36:00... Start Date: 08/15/19 Status: Ordered ProAir HFA 90 mcg/inh inhalation aerosol with adapter 2, puffs, Inhalation, Every 4 hours, PRN, # 8.5 Gm, Refills 2, Tot. Refills 2, Maintenance, 04/29/19 11:32:00 EST, Aerosol, Route to Pharmacy Electronically, NCPDP_[id number], [facility], 160, cm, 04/29/19 10:47:00 EST, Height... Start Date: 04/29/19 Status: Ordered rifAXIMin 550 mg oral tablet 1 tablet = 550 mg, By Mouth, 3 times a day, # 42 tablet, 0 Refills, Maintenance, 07/14/20 13:37:00 EDT, Tablet, [facility], Partial [...] 6 Refills, Maintenance, 03/12/20 11:09:00 EST, Tablet, [facility], weaning zonegran off by [...] 6 Refills, Soft Stop, 03/12/20 11:04:00 EST, [facility], Partial fill upon [...] 0 Refills, Maintenance, 06/13/20 14:10:00 EDT, Capsule, [facility],... Start Date: 06/13/20 Status: [...] 1resolved after weight loss 2chronic perst 3gyn 26232 5testing negative insulinoma 6likley dumping sydrome 7abnormal GTT ;sugar 36 two hours into test 8sees gi 9normal CT brain 10new 115.3 cm,right per ct scan recent;seeing gynecology soon;they will review 12vit d deficiency;correct 583464 14per endocrinology monitor 15correction refer GTT; 2 hour glucose 36 16refer GGT 17seeing ortho;pre op 18asma,ama neg/cerulopalsmain wnl,AAT wnl 19Negative hep A antibody positive hep B surface antibody negative antigen negative hep C, normal ferritin 20ukltrasound Social History Social History Type Response Smoking Status Never smoker entered on: 02/20/13 Sex
--- OUTSIDE RECORDS SUMMARY | 2022-08-17 08:39 | XMS_ITS | Continuity of Care Document ---
Author Name Unknown Organization [facility] Address [address] [place] [address] [address] [place] [address]- Care Team Providers Care Audiology Director Name Role Phone Eran MARBLE MECHANIC HELPER, Sue Dahl Primary Care Physician Encounter [facility] Date(s): 11/25/21 - 12/25/21 [facility] [address] [place] [address]- Allergies, Adverse Reactions, Alerts Substance Reaction Severity Status Dust Allergy to pollen Active Pollen seasonal allergies respiratory symptoms Active Incruse Ellipta 1 lightheaded and migraine Active 1dizzy Immunizations Given and Recorded Vaccine Date Status Refusal Reason [id number] 12y+ bivalent booster vax 1 12/24/21 Given [...] vaccine, inactivated 02/08/11 Give n SARS-CoV-2 mRNA ([id number]) vax 05/01/21 Recorded zoster vaccine, inactivated 11/03/20 [...] tetanus-diphtheria toxoids (Td) 08/03/05 Given 1Result Comment: [address]-7 2Result Comment: [id number] 3Result Comment: [12/07/2017] [address]-36 4Result Comment: [12/21/2016] [facility]: 00892-778-07 5Result Comment: [06/10/2015] #3 6Admin Note: per pt 7Admin Note: given in clinic Medications acarbose 25 mg oral tablet See Instructions, 1 tablet with 50 mg (total 75 mg) By Mouth before lunch, # 30 each, 11 Refills, Maintenance, 11/03/21 8:24:00 EDT, Tablet, [facility], 158, cm, 11/03/21 8:01:00EDT, Height, 71.5, kg, 09/01/21 16:21:00 EDT, Dry W... Start Date: 11/03/21 Status: Ordered acarbose 50 mg oral tablet See Instructions, 1 tablet with 25 mg (total 75 mg) By Mouth before lunch, # 30 each, 11 Refills, Maintenance, 11/03/21 8:23:00 EDT, Tablet, [facility], Partial fill upon patientrequest if the prescription is for a schedule II op... Start Date: 11/03/21 Status: Ordered acetaminophen 500 mg oral tablet 2 tablet = 1,000 mg, By Mouth, Every 6 hours, PRN as needed for fever, # 200 tablet, 0 Refills, Maintenance, 12/03/21 10:17:00 EDT, Tablet, [facility], Partial fill upon patient request if the prescription is for a schedule II opi... Start Date: 12/03/21 Status: Ordered Albuterol (Eqv-ProAir HFA) 90 mcg/inh inhalation aerosol 2 puffs, Inhalation, Every 4 hours, PRN NEEDED FOR WHEEZING, # 8.5 Gm, 1 Refills, Maintenance, 12/03/21 14:16:00 EDT, [facility], 18, INHALE TWO PUFFS EVERY 4 HOURS NEEDED FOR WHEEZING, 163, cm, 12/03/21 9:39:00 EDT, Height,... Start Date: 12/03/21 Status: Ordered calcium (as citrate)-vitamin D 315 mg-250 intl units oral tablet 2 tablet, By Mouth, 2 times a day, # 120 tablet, 6 Refills, Maintenance, 11/03/21 8:23:00 EDT, Tablet, [facility], 2 tablet By Mouth 2 times [...] Refills, Maintenance, 11/22/21 9:49:00 EDT, CR Capsule, [facility], Partial fill upon patient request if the prescription is for a schedule II opioid... Start Date: 11/22/21 Status: Ordered Emgality Prefilled Pen 120 mg/mL subcutaneous solution = 120 mg, Subcutaneous Injection, Once, Maintenance Dose, # 1 kit, 6 Refills, Soft Stop, 06/29/21 10:09:00 EDT, [facility], Partial fill upon patient request if the prescription is for a schedule II opioid drug., 158, cm, 06/29/21... Start Date: 06/29/21 Status: Ordered EPINEPHrine 1 mg/mL injectable solution 0.3 mL = 0.3 mg, Intramuscular, Once, # 1 mL, 1 Refills, Soft Stop, 03/08/21 15:07:00 EST, Solution, [facility], Partial fill upon [...] 11/15/21 10:56:00 EDT, Route to Pharmacy Electronically, [facility], 158, cm, 11/03/21 8:01:00 EDT, Height, 71.5, kg, 09/01/21 16:21:00 EDT, Mark Start Date: 11/15/21 Status: Ordered montelukast 10 mg oral tablet 1, tablet, By Mouth, Daily in PM, # 90 tablet, Refills 1, Tot. Refills 1, Maintenance, 11/14/21 11:28:00 EDT, Route to Pharmacy Electronically, [facility], 158, cm, 11/03/21 8:01:00 EDT, Height, [...] 6 Refills, Maintenance, 12/10/20 12:36:00 EDT,DIS Tablet, [facility], has [place]. Start Date: 12/10/20 Stop [...] 11/23/21 19:57:00 EDT, Route to Pharmacy Electronically, NCPDP_[id number], [facility], 158, cm, 11/03/21 8:0... Start Date: [...] 5 Refills, Maintenance, 12/10/21 9:44:00 EDT, Tablet, [facility], Partial fill upon [...] 2 Confirmed Active History of cholecystectomy Confirmed 2/5/18 Active Hypoglycemia 3, 4, 5 Confirmed Active [...] Active Vitamin D deficiency Confirmed Active 1gyn 54129 3testing negative insulinoma 4likley dumping sydrome 5abnormal GTT ;sugar 36 two hours into test 6sees gi 7normal CT brain 8new 9resolved after weight loss 10chronic perst 115.3 cm,right per ct scan recent;seeing gynecology soon;they will review 12vit d deficiency;correct 044008 14per endocrinology monitor 15correction refer GTT; 2 hour glucose 36 16refer GGT 17seeing ortho;pre op 18asma,ama neg/cerulopalsmain wnl,AAT wnl 19Negative hep A antibody positive hep B surface antibody negative antigen negative hep C, normal ferritin 20ukltrasound Social History Social History Type Response Smoking Status Never smoker entered on: 02/20/13 Sex Patient Care team information Personnel Name: Sue Barillas NP Address: Address: [address] [place] [id number]
--- OUTSIDE RECORDS SUMMARY | 2022-08-17 08:39 | XMS_ITS | Continuity of Care Document ---
Author Name Unknown Organization [facility] Address [address] [place] [id number]- Care Team Providers Care Sales Service Route Manager Name Role Phone Louisa LANDRUM, Taras Fuentes Primary Care Physician [place] [facility] [place](s): 12/02/19 - 12/09/19 [facility] [address] [place] [address]- [facility] Encounter Diagnosis Overriding toes(Discharge Diagnosis) - 12/02/19 Onychomycosis(Discharge Diagnosis) - 12/02/19 Chronic diarrhea(Discharge Diagnosis) - 12/02/19 Esophageal reflux (GERD) egd 2018(Discharge Diagnosis) - 12/02/19 Depression(Discharge Diagnosis) - 12/02/19 Attending Physician: Not on Staff, Attending MD [...] toxoids (Td) 08/03/05 Given 1Result Comment: [12/07/2017] [address]-26 2Result Comment: [12/21/2016] [facility]: [id number] 3Result Comment: [06/10/2015] #3 4Admin Note: per [...] 0 Refills, Maintenance, 07/03/19 13:59:00 EDT, Solution, [facility], 160, cm, 05/29/19 13:36:00 EDT, Height, 56.5, kg, 03... Start Date: 07/03/19 Status: Ordered albuterol CFC free 90 mcg/inh inhalation aerosol 2, puffs, Inhalation, 4 times a day, PRN, # 25 Gm, Refills 0, Tot. Refills 0, Maintenance, 07/07/2012:36:00 EDT, Aerosol, Route to Pharmacy Electronically, NCPDP_[id number], [facility], 160, cm, 07/08/19 13:03:00 EDT, [...] 60 capsule, 5 Refills, Maintenance, 07/30/19 10:21:00EDT, [facility], 160, cm, 07/08/19 13:03:00 EDT, Height, 56.5, kg, 05/29/19 13:36:00 EDT, Dry Weight Start Date: 07/30/19 Status: Ordered eletriptan 40 mg oral tablet 1 tablet = 40 mg, By Mouth, Daily, PRN for migraine headache, # 9 tablet, 5 Refills, Soft Stop, 07/16/19 9:23:00 EDT, Tablet, [facility], she has tried sumatriptan and [...] 1 Refills, Soft Stop, 11/20/19 11:59:00 EDT, [facility], 160.02, cm, 11/15/19 10:05:00 EDT, [...] 02/25/19 16:55:00 EST, Route to Pharmacy Electronically, [facility], 158, cm, 02/14/19 7:55:00 EST, Height, 61.9, kg, 02/12/19 10:17:00... Start Date: 02/25/19 Status: Ordered montelukast 10 mg oral tablet 10 mg, 1, tablet, By Mouth, Daily in PM, # 90 tablet, Refills 3, Tot. Refills 3, Maintenance, 08/15/19 16:21:00 EDT, Route to Pharmacy Electronically, [facility], 160, cm, 08/15/19 13:45:00 EDT, Height, 56.5, kg, 05/29/19 13:36:00... Start Date: 08/15/19 Status: Ordered NuLYTELY with Flavor Packs oral powder for reconstitution 240 mL, By Mouth, Every 10 minutes, # 4,000 mL, 0 Refills, Maintenance, 11/15/19 10:29:00 EDT, REC Powder, [facility], 240 mL By Mouth Every 10 minutes, 160.02, cm, 11/15/19 10:05:00 EDT, Height, 67, kg, 09/11/19 11:20:00 EDT, Dry... Start Date: 11/15/19 Status: Ordered ondansetron 4 mg oral tablet, disintegrating 1 tablet = 4 mg, By Mouth, Every 8 hours, PRN as needed for nausea/vomiting, # 9 tablet, 0 Refills,Maintenance, 10/06/19 21:07:00 EDT, DIS Tablet, [facility] Start Date: 10/06/19 Stop Date: 10/09/19 Status: Ordered ProAir HFA 90 mcg/inh inhalation aerosol with adapter 2, puffs, Inhalation, Every 4 hours, PRN, # 8.5 Gm, Refills 2, Tot. Refills 2, Maintenance, 04/29/19 11:32:00 EST, Aerosol, Route to Pharmacy Electronically, NCPDP_[id number], [facility], 160, cm, 04/29/19 [...] 07/08/19 13:36:00 EDT, Route to Pharmacy Electronically, NCPDP_[id number], [facility], 160, cm, 07/08/19 13:03:00 ED... Start Date: 07/08/19 Status: Ordered Topamax 50 mg oral tablet 2 tablet = 100 mg, By Mouth, Daily at bedtime, # 60 tablet, 6 Refills, Maintenance, 11/04/19 11:08:00 EDT, Tablet, [facility], weaning zonegran off by 25mg every [...] Refills, Soft Stop, 11/25/19 21:26:00 EDT, Tablet, [facility], 160.02, cm, 11/15/19 10:05:00 EDT, Height,... Start Date: 11/25/19 Status: Ordered Zofran 4 mg oral tablet 1 tablet = 4 mg, By Mouth, Every 8 hours, PRN Nausea & Vomiting, # 30 tablet, 0 Refills, Maintenance, 09/30/19 11:23:00 EDT, [facility], 160.02, cm, 09/24/19 15:31:00 EDT, [...] perst 3folowed by mental health;recent hospitalization 4gyn 55147 6testing negative insulinoma 7likley dumping sydrome 8abnormal GTT ;sugar 36 two hours into test 9sees gi 10normal CT brain 11new 125.3 cm,right per ct scan recent;seeing gynecology soon;they will review 13vit d deficiency;correct 970416 15per endocrinology monitor 16correction refer GTT; 2 hour glucose 36 17refer GGT 18seeing ortho;pre op 19asma,ama neg/cerulopalsmain wnl,AAT wnl 20Negative hep A antibody positive hep B surface antibody negative antigen negative hep C, normal ferritin 21ukltrasound Diagnosis Diagnosis Type Effective Dates Health Status Clinical Service Informant Overriding toes Discharge Diagnosis 12/02/19 Onychomycosis Discharge Diagnosis 12/02/19 Chronic diarrhea Discharge Diagnosis 12/02/19 Esophageal reflux (GERD) egd 2017 Discharge Diagnosis 12/02/19 Depression Discharge Diagnosis 12/02/19 Vital Signs Most recent to oldest [Reference Range]: 1 Height 160.02 cm (12/02/19 6:45 AM) Weight 70.9 kg (12/02/19 6:45 AM) Oxygen Saturation [94-100 %] 99 % (12/02/19 6:45 AM) Pulse Rate [55-90 bpm] 80 bpm (12/02/19 6:45 AM) Body Mass Index [18.5-24.99] 27.69 *H* (12/02/19 6:45 AM) Blood Pressure [90-138/55-84 mm Hg] 110/ 60mm Hg (12/02/19 6:45 AM) Temperature [96.8-100.4 DegF] 98.1 DegF (12/02/19 6:45 AM) Mode of Delivery (Oxygen) Room air (12/02/19 6:45 AM) Blood pressure sites Arm, left (12/02/19 6:45 AM) Temperature Route Oral (12/02/19 6:45 AM) Weight Obtained Via Standing scale (12/02/19 6:45 AM) Social History Social History Type Response Smoking Status Never smoker entered on: 02/20/13 Sex
--- OUTSIDE RECORDS SUMMARY | 2022-08-17 08:39 | XMS_ITS | Continuity of Care Document ---
Author Name Unknown Organization [facility] Address [address] [place] [address]- Care Team Providers Care General Hardware Salesperson Name Role Phone Eran Sue JOHNSON Primary Care Physician Encounter [facility] Date(s): 05/18/22 - 06/17/22 [facility] [address] [place] [address]- [place] Allergies, Adverse Reactions, Alerts Substance Reaction Severity Status Dust Allergy to pollen Active Pollen seasonal allergies respiratory symptoms Active Incruse Ellipta 1 lightheaded and migraine Active 1dizzy Immunizations Given and Recorded Vaccine Date Status Refusal Reason [id number] 12y+ bivalent booster vax 1 12/24/21 Given [...] vaccine, inactivated 02/08/11 Give n SARS-CoV-2 mRNA ([id number]) vax 05/01/21 Recorded zoster vaccine, inactivated 11/03/20 [...] tetanus-diphtheria toxoids (Td) 08/03/05 Given 1Result Comment: [id number] 2Result Comment: 68023-461-03 3Result Comment: [12/07/2017] [id number] 4Result Comment: [12/21/2016] [facility]: [id number] 5Result Comment: [06/10/2015] #3 6Admin Note: per [...] Gm, 5 Refills, Maintenance, 03/09/22 11:21:00 EST, [facility], 17, INHALE TWO PUFFS [...] 1,200 mL, 5 Refills, Maintenance,04/29/22 9:16:00 EST, [id number], Partial fill upon patient request if the prescription is for a schedule II opioid drug., 158, cm, 02... Start Date: 04/29/22 Status: Ordered cetirizine 10 mg oral tablet 1 tablet, By Mouth, Daily, # 30 tablet, 5 Refills, Maintenance, 06/03/22 11:40:00 EDT, [facility], 158, cm, 05/25/22 13:59:00 [...] Refills, Maintenance, 05/30/22 7:57:00 EDT, CR Capsule, [facility], Partial fill upon patient request if the prescription is for a schedule II opioid... Start Date: 05/30/22 Status: Ordered Emgality Prefilled Pen 120 mg/mL subcutaneous solution = 120 mg, Subcutaneous Injection, Once, Maintenance Dose, # 3 kit, 2 Refills, Soft Stop, 03/17/22 8:08:00 EST, [facility], requesting 3 month supply [...] 0 Refills, Maintenance, 04/09/22 15:16:00 EST,Chew Tablet, [facility] #[id number], Partial fill upon patient request if the [...] Refills, Maintenance, 04/09/22 15:16:00 EST, REC Powder, [facility] #[id number], Partial fill upon patient request if the [...] each, 0 Refills, Maintenance, 04/06/22 15:29:00 EST, [facility] #[id number], Partial fi... Start Date: 04/06/22 Status: Ordered Reclast = 5 mg, IV Infusion, Once, 0 Refills, Maintenance, 11/06/20 10:24:00 EDT, administered at [facility] 10/2020 Start Date: 11/06/20 Status: Ordered Stool Softener + Stimulant Laxative 50 mg-8.6 mg oral capsule 1 capsule, By Mouth, Daily in PM, # 60 capsule, 0 Refills, Maintenance, 04/09/22 15:17:00 EST, Capsule, [facility] #[id number], Partial fill upon patient request if the prescription is for a schedule II opioid drug., 1 capsule By Mouth Daily in P... Start Date: 04/09/22 Status: Ordered Symbicort 160mcg/4.5mcg Inhaler 2, puffs, Inhalation, 2 times a day, rinse mouth and throat after use, # 10.2 Gm, Refills 2, Tot. Refills 2, Maintenance, 06/10/22 20:48:00 EDT, Route to Pharmacy Electronically, NCPDP_[id number], [facility], 158, cm, 06/07/22 10:... [...] Active Vitamin D deficiency Confirmed Active 1gyn 27963 3testing negative insulinoma 4likley dumping sydrome 5abnormal GTT ;sugar 36 two hours into test 6normal CT brain 7new 8resolved after weight loss 9chronic perst 105.3 cm,right per ct scan recent;seeing gynecology soon;they will review 11vit d deficiency;correct [id number] 13per endocrinology monitor 14correction refer GTT; 2 [...] Sue Barillas NP Position: [facility] PCO Associate Professional Member Role: PCP Address: Address: [address] [place], [place] [address] Name: Andria Guadalupe RN Position: [facility] SN RN Member Role: Primary Care Nurse Name: Liz Martin RN Position: [facility] RN Member Role: Primary Care Nurse Name: Ambreen Mcmahon RN Position: [facility] RN Member Role: Primary Care Nurse Name: Irais Grijalva RN Position: [facility] RN Member Role: Primary Care Nurse Name: Autumn Martinez RN Position: [facility] SN RN Member Role: Primary Care Nurse Name: Liz English RN Position: [facility] RN Member Role: Primary Care Nurse Name: Dora Williamson RN Position: [facility] RN Member Role: Primary Care Nurse Care Team Related Persons Name: KHUSHI CUNNINGHAM Address: home [address] [place] [address] Name: BHUPINDER VENEGAS Address: home [address] [place] [address] Name: FELIPE FLORES Address: home [address] [place] [address] Name: ARNAV FLORES Address: home [address] [place] [address] Name: IRINA FLORES Address: home [address] [place] [address] Name: RUSLAN FLORES Address: home [address] [facility] [facility] [place] [address] Name: KAISER PLUNKETT Address: home [address] [place] [address]
--- OUTSIDE RECORDS SUMMARY | 2022-08-17 08:39 | XMS_ITS | Continuity of Care Document ---
Author Name Unknown Organization [facility] Address [address] [place] [address]- Care Team Providers Care Supervisor Nut Processing Name Role Phone Louisa LANDRUM, Taras Fuentes Primary Care Physician Encounter [facility] Date(s): 06/29/20 - 07/29/20 [facility] [address] [place] [id number]- Attending Physician: Konrad Curtis Admitting Physician: Konrad [...] toxoids (Td) 08/03/05 Given 1Result Comment: [12/07/2017] [address]-28 2Result Comment: [12/21/2016] [facility]: [id number] 3Result Comment: [06/10/2015] #3 4Admin Note: per pt 5Admin Note: given in clinic Medications acarbose 25 mg oral tablet 1 tablet = 25 mg, By Mouth, 3 times a day, Take 1 tablet 3 times daily with meals. Add to 50mg dosefor total of 75mg 3 times daily. E11.65, # 270 tablet, 3 Refills, Maintenance, 07/15/20 12:23:00 EDT, Tablet, [facility], Partial... Start Date: 07/15/20 Status: Ordered acarbose 50 mg oral tablet 1 tablet = 50 mg, By Mouth, 3 times a day, Take 3 times daily with meals. E11.65, # 90 tablet, 5 Refills, Maintenance, 07/13/20 16:29:00 EDT, Tablet, [facility], Partial fill upon patient request if [...] 0 Refills, Maintenance, 07/03/19 13:59:00 EDT, Solution, [facility], 160, cm, 05/29/19 13:36:00 EDT, Height, 56.5, kg, 03... Start Date: 07/03/19 Status: Ordered amitriptyline 25 mg oral tablet 50 mg, 2, tablet, By Mouth, Daily at bedtime, Refills 0, Maintenance, 06/29/20 9:52:00 EDT Start Date: 06/29/20 Status: Ordered amitriptyline 50 mg oral tablet 1 tablet = 50 mg, By Mouth, Daily at bedtime, # 30 tablet, 5 Refills, Maintenance, 07/22/20 8:03:00EDT, [facility], Partial fill upon patient request if [...] 60 capsule, 5 Refills, Maintenance, 05/07/20 15:54:00EST, [facility], 160.02, cm, 05/01/20 9:18:00 EST, Height, [...] 1 Refills, Soft Stop, 11/20/19 11:59:00 EDT, [facility], 160.02, cm, 11/15/19 10:05:00 EDT, Height, [...] 08/15/19 16:21:00 EDT, Route to Pharmacy Electronically, [facility], 160, cm, 08/15/19 13:45:00 EDT, Height, 56.5, kg, 05/29/19 13:36:00... Start Date: 08/15/19 Status: Ordered ProAir HFA 90 mcg/inh inhalation aerosol with adapter 2, puffs, Inhalation, Every 4 hours, PRN, # 8.5 Gm, Refills 2, Tot. Refills 2, Maintenance, 04/29/19 11:32:00 EST, Aerosol, Route to Pharmacy Electronically, [id number]_[id number], [facility], 160, cm, 04/29/19 10:47:00 EST, Height... Start Date: 04/29/19 Status: Ordered rifAXIMin 550 mg oral tablet 1 tablet = 550 mg, By Mouth, 3 times a day, # 42 tablet, 0 Refills, Maintenance, 07/14/20 13:37:00 EDT, Tablet, [facility], Partial fill upon patient request if [...] 6 Refills, Maintenance, 03/12/20 11:09:00 EST, Tablet, [facility], weaning zonegran off by 25mg every [...] 6 Refills, Soft Stop, 03/12/20 11:04:00 EST, [facility], Partial fill upon patient request if [...] 0 Refills, Maintenance, 06/13/20 14:10:00 EDT, Capsule, [facility],... Start Date: 06/13/20 Status: Ordered Problem [...] 1resolved after weight loss 2chronic perst 3gyn 06598 5testing negative insulinoma 6likley dumping sydrome 7abnormal GTT ;sugar 36 two hours into test 8sees gi 9normal CT brain 10new 115.3 cm,right per ct scan recent;seeing gynecology soon;they will review 12vit d deficiency;correct 556131 14per endocrinology monitor 15correction refer GTT; 2 hour glucose 36 16refer GGT 17seeing ortho;pre op 18asma,ama neg/cerulopalsmain wnl,AAT wnl 19Negative hep A antibody positive hep B surface antibody negative antigen negative hep C, normal ferritin 20ukltrasound Social History Social History Type Response Smoking Status Never smoker entered on: 02/20/13 Sex
--- OUTSIDE RECORDS SUMMARY | 2022-08-17 08:39 | XMS_ITS | Continuity of Care Document ---
Author Name Unknown Organization [facility] Address [address] [facility], [address] Floor, [address] [place] [address]- Care Team Providers Care Trolley Car Operator Name Role Phone Louisa LANDRUM, Taras Fuentes Primary Care Physician [phone] Encounter [facility] Date(s): 11/14/19 - 12/25/19 [facility] [address], [address], [address] [place] [address]- [facility] Attending Physician: Shell Vargas MD Admitting Physician: [...] toxoids (Td) 08/03/05 Given 1Result Comment: [12/07/2017] [address]-80 2Result Comment: [12/21/2016] [facility]: 72099-851-82 3Result Comment: [06/10/2015] #3 4Admin Note: per [...] 07/07/2012:36:00 EDT, Aerosol, Route to Pharmacy Electronically, NCPDP_[id number], [facility], 160, cm, 07/08/19 13:03:00 EDT, Height, [...] 5 Refills, Maintenance, 07/30/19 10:21:00EDT, [facility], 160, cm, 07/08/19 13:03:00 EDT, Height, 56.5, kg, 05/29/19 13:36:00 EDT, Dry Weight Start Date: 07/30/19 Status: Ordered eletriptan 40 mg oral tablet 1 tablet = 40 mg, By Mouth, Daily, PRN for migraine headache, # 9 tablet, 5 Refills, Soft Stop, 07/16/19 9:23:00 EDT, Tablet, [facility], she has tried sumatriptan and rizatriptan. [...] 11/15/19 10:29:00 EDT, REC Powder, [facility], 240 mL By Mouth Every 10 minutes, 160.02, cm, 11/15/19 10:05:00 EDT, Height, 67, kg, 09/11/19 11:20:00 EDT, Dry... Start Date: 11/15/19 Status: Ordered ondansetron 4 mg oral tablet, disintegrating 1 tablet = 4 mg, By Mouth, Every 8 hours, PRN as needed for nausea/vomiting, # 9 tablet, 0 Refills,Maintenance, 10/06/19 21:07:00 EDT, DIS Tablet, [facility] Start Date: 10/06/19 Stop Date: 10/09/19 Status: Ordered ProAir HFA 90 mcg/inh inhalation aerosol with adapter 2, puffs, Inhalation, Every 4 hours, PRN, # 8.5 Gm, Refills 2, Tot. Refills 2, Maintenance, 04/29/19 11:32:00 EST, Aerosol, Route to Pharmacy Electronically, NCPDP_[id number], [facility], [...] 07/08/19 13:36:00 EDT, Route to Pharmacy Electronically, NCPDP_[id number], [facility], 160, cm, 07/08/19 13:03:00 ED... Start Date: 07/08/19 Status: Ordered Topamax 50 mg oral tablet 2 tablet = 100 mg, By Mouth, Daily at bedtime, # 60 tablet, 6 Refills, Maintenance, 11/04/19 11:08:00 EDT, Tablet, [facility], weaning [...] Refills, Soft Stop, 11/25/19 21:26:00 EDT, Tablet, [facility], 160.02, cm, 11/15/19 10:05:00 EDT, Height,... Start Date: 11/25/19 Status: Ordered Zofran 4 mg oral tablet 1 tablet = 4 mg, By Mouth, Every 8 hours, PRN Nausea & Vomiting, # 30 tablet, 0 Refills, Maintenance, 09/30/19 11:23:00 EDT, [facility], 160.02, cm, 09/24/19 15:31:00 EDT, Height, [...] perst 3folowed by mental health;recent hospitalization 4gyn 11905 6testing negative insulinoma 7likley dumping sydrome 8abnormal GTT ;sugar 36 two hours into test 9sees gi 10normal CT brain 11new 125.3 cm,right per ct scan recent;seeing gynecology soon;they will review 13vit d deficiency;correct 708418 15per endocrinology monitor 16correction refer GTT; 2 hour glucose 36 17refer GGT 18seeing ortho;pre op 19asma,ama neg/cerulopalsmain wnl,AAT wnl 20Negative hep A antibody positive hep B surface antibody negative antigen negative hep C, normal ferritin 21ukltrasound Social History Social History Type Response Smoking Status Never smoker entered on: 02/20/13 Sex
--- OUTSIDE RECORDS SUMMARY | 2022-08-17 08:39 | XMS_ITS | Continuity of Care Document ---
Author Name Unknown Organization [facility] Address [address] [place] [address]- Care Team Providers Care Java Programmer Analyst Name Role Phone Eran Sue JOHNSON Primary Care Physician Encounter [facility] Date(s): 12/07/21 - 01/06/22 [facility] [address] [place] [address]- [place] Allergies, Adverse Reactions, Alerts Substance Reaction Severity Status Dust Allergy to pollen Active Pollen seasonal allergies respiratory symptoms Active Incruse Ellipta 1 lightheaded and migraine Active 1dizzy Immunizations Given and Recorded Vaccine Date Status Refusal Reason [id number] 12y+ bivalent booster vax 1 12/24/21 Given [...] vaccine, inactivated 02/08/11 Give n SARS-CoV-2 mRNA ([id number]-[id number]-fpyhl) vax 05/01/21 Recorded zoster vaccine, inactivated 11/03/20 [...] tetanus-diphtheria toxoids (Td) 08/03/05 Given 1Result Comment: [address]-8 2Result Comment: [id number] 3Result Comment: [12/07/2017] [address]-96 4Result Comment: [12/21/2016] [facility]: 05166-462-47 5Result Comment: [06/10/2015] #3 6Admin Note: per pt 7Admin Note: given in clinic Medications acarbose 25 mg oral tablet See Instructions, 1 tablet with 50 mg (total 75 mg) By Mouth before lunch, # 30 each, 11 Refills, Maintenance, 11/03/21 8:24:00 EDT, Tablet, [facility], 158, cm, 11/03/21 8:01:00EDT, Height, 71.5, kg, 09/01/21 16:21:00 EDT, Dry W... Start Date: 11/03/21 Status: Ordered acarbose 50 mg oral tablet See Instructions, 1 tablet with 25 mg (total 75 mg) By Mouth before lunch, # 30 each, 11 Refills, Maintenance, 11/03/21 8:23:00 EDT, Tablet, [facility], Partial fill upon patientrequest if the prescription is for a schedule II op... Start Date: 11/03/21 Status: Ordered acetaminophen 500 mg oral tablet 2 tablet = 1,000 mg, By Mouth, Every 6 hours, PRN as needed for fever, # 200 tablet, 0 Refills, Maintenance, 12/03/21 10:17:00 EDT, Tablet, [facility], Partial fill upon patient request if the prescription is for a schedule II opi... Start Date: 12/03/21 Status: Ordered Albuterol (Eqv-ProAir HFA) 90 mcg/inh inhalation aerosol 2 puffs, Inhalation, Every 4 hours, PRN NEEDED FOR WHEEZING, # 8.5 Gm, 1 Refills, Maintenance, 12/03/21 14:16:00 EDT, [facility], 18, INHALE TWO PUFFS EVERY 4 HOURS NEEDED FOR WHEEZING, 163, cm, 12/03/21 9:39:00 EDT, Height,... Start Date: 12/03/21 Status: Ordered calcium (as citrate)-vitamin D 315 mg-250 intl units oral tablet 2 tablet, By Mouth, 2 times a day, # 120 tablet, 6 Refills, Maintenance, 11/03/21 8:23:00 EDT, Tablet, [facility], 2 tablet By [...] Maintenance, 11/22/21 9:49:00 EDT, CR Capsule, [facility], Partial fill upon patient request if the prescription is for a schedule II opioid... Start Date: 11/22/21 Status: Ordered Emgality Prefilled Pen 120 mg/mL subcutaneous solution = 120 mg, Subcutaneous Injection, Once, Maintenance Dose, # 1 kit, 6 Refills, Soft Stop, 12/30/21 12:19:00 EDT, [facility], [...] 10:56:00 EDT, Route to Pharmacy Electronically, [facility], 158, cm, 11/03/21 8:01:00 EDT, Height, 71.5, kg, 09/01/21 16:21:00 EDT, Mark Start Date: 11/15/21 Status: Ordered montelukast 10 mg oral tablet 1, tablet, By Mouth, Daily in PM, # 90 tablet, Refills 1, Tot. Refills 1, Maintenance, 11/14/21 11:28:00 EDT, Route to Pharmacy Electronically, [facility], 158, cm, 11/03/21 8:01:00 EDT, Height, 71.5, kg, 09/01/21 16:21:00 EDT, Start Date: 11/14/21 Status: Ordered Nurtec ODT 75 mg oral tablet, disintegrating See Instructions, TAKE ONE TABLET DAILY NEEDED FOR migraines, DO NOT EXCEED ONE TABLET IN 24 HOURS, # 8 tablet, 6 Refills, Maintenance, 12/28/21 15:14:00 EDT, [facility], 163,cm, 12/24/21 8:20:00 [...] 11/23/21 19:57:00 EDT, Route to Pharmacy Electronically, NCPDP_[id number], [facility], 158, cm, 11/03/21 [...] Refills, Maintenance, 12/10/21 9:44:00 EDT, Tablet, [facility] [...] Active Vitamin D deficiency Confirmed Active 1gyn 05647 3testing negative insulinoma 4likley dumping sydrome 5abnormal GTT ;sugar 36 two hours into test 6sees gi 7normal CT brain 8new 9resolved after weight loss 10chronic perst 115.3 cm,right per ct scan recent;seeing gynecology soon;they will review 12vit d deficiency;correct [id number] 14per endocrinology monitor 15correction refer GTT; 2 hour glucose 36 16refer GGT 17seeing ortho;pre op 18asma,ama neg/cerulopalsmain wnl,AAT wnl 19Negative hep A antibody positive hep B surface antibody negative antigen negative hep C, normal ferritin 20ukltrasound Social History Social History Type Response Smoking Status Never smoker entered on: 02/20/13 Sex Patient Care team information Personnel Name: Sue Barillas NP Address: Address: [address] [place] [id number]
--- OUTSIDE RECORDS SUMMARY | 2022-08-17 08:39 | XMS_ITS | Continuity of Care Document ---
Author Name Unknown Organization [facility] lt Address [address] [place] [address]- Care Team Providers Care Tube Splicer Name Role Phone Eran OFFICE EXECUTIVE, Sue Dahl Primary Care Physician [place] [facility] [place] 09/16/21 - 09/23/21 [facility] [address] [place] [address]- Encounter Diagnosis Intra-abdominal abscess(Discharge Diagnosis) - 09/16/21 Status post PICC central line placement(Discharge Diagnosis) - 09/16/21 Attending Physician: Not on Staff, Attending MD Referring Physician: Taras Jasso MD Allergies, Adverse Reactions, Alerts Substance Reaction Severity Status Dust Allergy to pollen Active Pollen seasonal allergies respiratory symptoms Active Incruse Ellipta 1 lightheaded and migraine Active 1dizzy Immunizations Given and Recorded Vaccine Date Status Refusal Reason SARS-CoV-2 mRNA (hkwuqwi-lboy-xfrpt) vax 05/01/21 Recorded influenza virus vaccine, inactivated [...] toxoids (Td) 08/03/05 Given 1Result Comment: [12/07/2017] [address]-58 2Result Comment: [12/21/2016] [facility]: 62265-590-46 3Result Comment: [06/10/2015] #3 4Admin Note: per pt 5Admin Note: given in clinic Medications acarbose 25 mg oral tablet 1 tablet = 25 mg, By Mouth, 3 times a day, Take 1 tab (plus 1 50mg tab), 3 times daily with meals.,# 270 tablet, 3 Refills, Maintenance, 02/03/21 8:34:00 EST, Tablet, [facility], Partial fill upon patient request if the prescript... Start Date: 02/03/21 Status: Ordered acarbose 50 mg oral tablet 1 tablet = 50 mg, By Mouth, 3 times a day, Take 1 tab (plus 1 25mg tab), 3 times daily with meals.,# 270 tablet, 3 Refills, Maintenance, 02/03/21 8:34:00 EST, Tablet, [facility], Partial fill upon [...] constipation, 08/23/21 8:22:00 EDT, Route to Pharmacy Electronically,[facility], Partial fill upon patient... Start Date: 08/23/21 Status: Ordered Dexilant 60 mg oral delayed release capsule 1 capsule = 60 mg, By Mouth, 2 times a day, 30 min before meal, # 60 capsule, 5 Refills, Maintenance, 04/16/21 14:29:00 EST, CR Capsule, [facility], Partial fill upon patient request if the prescription is for a schedule II opioi... Start Date: 04/16/21 Status: Ordered Emgality Prefilled Pen 120 mg/mL subcutaneous solution = 120 mg, Subcutaneous Injection, Once, Maintenance Dose, # 1 kit, 6 Refills, Soft Stop, 06/29/21 10:09:00 EDT, [facility], Partial fill upon [...] 09/17/21 14:13:00 EDT, Route to Pharmacy Electronically, [facility], 158, cm, 09/16/21 9:43:00 EDT, Height, [...] 04/23/21 12:32:00 EST, Route to Pharmacy Electronically, [facility], 158, cm, 04/09/21 8:13:00 EST, [...] 1resolved after weight loss 2chronic perst 3gyn 80838 5testing negative insulinoma 6likley dumping sydrome 7abnormal GTT ;sugar 36 two hours into test 8sees gi 9normal CT brain 10new 115.3 cm,right per ct scan recent;seeing gynecology soon;they will review 12vit d deficiency;correct 509310 14per endocrinology monitor 15correction refer GTT; 2 hour glucose 36 16refer GGT 17seeing ortho;pre op 18asma,ama neg/cerulopalsmain wnl,AAT wnl 19Negative hep A antibody positive hep B surface antibody negative antigen negative hep C, normal ferritin 20ukltrasound Diagnosis Diagnosis Type Effective Dates Health Status Cl inical Service Informant Intra-abdominal abscess Discharge Diagnosis 09/16/21 Status post PICC central line placement Discharge Diagnosis 09/16/21 Vital Signs Most recent to oldest [Reference Range]: 1 2 Height 158 cm (09/16/21 9:43 AM) 158 cm (09/16/21 9:28 AM) Weight 71.4 kg (09/16/21 9:28 AM) Oxygen Saturation [94-100 %] 98 % (09/16/21 9:28 AM) Pulse Rate [55-90 bpm] 84 bpm (09/16/21 9:43 AM) 99 bpm *H* (09/16/21 9:28 AM) Body Mass Index [18.5-24.99] 28.6 *H* (09/16/21 9:28 AM) Blood Pressure [90-138/55-84 mm Hg] 110/ 74mm Hg (09/16/21 9:43 AM) 110/88mm Hg (09/16/21 9:28 AM) Temperature [96.8-100.4 DegF] 97.9 DegF (09/16/21 9:28 AM) Mode of Delivery (Oxygen) Room air (09/16/21 9:28 AM) Blood pressure sites Arm, left (09/16/21 9:43 AM) Arm, left (09/16/21 9:28 AM) Temperature Route Oral (09/16/21 9:28 AM) Weight Obtained Via Standing scale (09/16/21 9:28 AM) Social History Social History Type Response Smoking Status Never smoker entered on: 02/20/13 Sex
--- OUTSIDE RECORDS SUMMARY | 2022-08-17 08:39 | XMS_ITS | Continuity of Care Document ---
Author Name Unknown Organization [facility] Address [address] [place] [address]- Care Team Providers Care Transit Mixer Driver Name Role Phone Louisa LANDRUM, Taras Fuentes Primary Care Physician [phone] Encounter [facility] Date(s): 11/19/19 - 12/19/19 [facility] [address] [place] [address]- [facility] Allergies, Adverse Reactions, Alerts Substance Reaction Severity [...] toxoids (Td) 08/03/05 Given 1Result Comment: [12/07/2017] [address]-68 2Result Comment: [12/21/2016] [facility]: 72535-181-04 3Result Comment: [06/10/2015] #3 4Admin Note: per [...] 0 Refills, Maintenance, 07/03/19 13:59:00 EDT, Solution, [facility], 160, cm, 05/29/19 13:36:00 EDT, Height, 56.5, kg, 03... Start Date: 07/03/19 Status: Ordered albuterol CFC free 90 mcg/inh inhalation aerosol 2, puffs, Inhalation, 4 times a day, PRN, # 25 Gm, Refills 0, Tot. Refills 0, Maintenance, 07/07/2012:36:00 EDT, Aerosol, Route to Pharmacy Electronically, NCPDP_[id number], [facility], 160, cm, 07/08/19 13:03:00 EDT, [...] 60 capsule, 5 Refills, Maintenance, 07/30/19 10:21:00EDT, [facility], 160, cm, 07/08/19 13:03:00 EDT, Height, 56.5, kg, 05/29/19 13:36:00 EDT, Dry Weight Start Date: 07/30/19 Status: Ordered eletriptan 40 mg oral tablet 1 tablet = 40 mg, By Mouth, Daily, PRN for migraine headache, # 9 tablet, 5 Refills, Soft Stop, 07/16/19 9:23:00 EDT, Tablet, [facility], she has tried sumatriptan and rizatriptan. [...] 02/25/19 16:55:00 EST, Route to Pharmacy Electronically, [facility], 158, cm, 02/14/19 7:55:00 EST, Height, 61.9, kg, 02/12/19 10:17:00... Start Date: 02/25/19 Status: Ordered montelukast 10 mg oral tablet 10 mg, 1, tablet, By Mouth, Daily in PM, # 90 tablet, Refills 3, Tot. Refills 3, Maintenance, 08/15/19 16:21:00 EDT, Route to Pharmacy Electronically, [facility], 160, cm, 08/15/19 13:45:00 EDT, Height, 56.5, kg, 05/29/19 13:36:00... Start Date: 08/15/19 Status: Ordered NuLYTELY with Flavor Packs oral powder for reconstitution 240 mL, By Mouth, Every 10 minutes, # 4,000 mL, 0 Refills, Maintenance, 11/15/19 10:29:00 EDT, REC Powder, [facility], 240 mL By Mouth Every 10 minutes, 160.02, cm, 11/15/19 10:05:00 EDT, Height, 67, kg, 09/11/19 11:20:00 EDT, Dry... Start Date: 11/15/19 Status: Ordered ondansetron 4 mg oral tablet, disintegrating 1 tablet = 4 mg, By Mouth, Every 8 hours, PRN as needed for nausea/vomiting, # 9 tablet, 0 Refills,Maintenance, 10/06/19 21:07:00 EDT, DIS Tablet, [facility] Start Date: 10/06/19 Stop Date: 10/09/19 Status: Ordered ProAir HFA 90 mcg/inh inhalation aerosol with adapter 2, puffs, Inhalation, Every 4 hours, PRN, # 8.5 Gm, Refills 2, Tot. Refills 2, Maintenance, 04/29/19 11:32:00 EST, Aerosol, Route to Pharmacy Electronically, NCPDP_[id number], [facility], 160, cm, 04/29/19 [...] 07/08/19 13:36:00 EDT, Route to Pharmacy Electronically, NCPDP_[id number], [facility], 160, cm, 07/08/19 13:03:00 ED... Start Date: 07/08/19 Status: Ordered Topamax 50 mg oral tablet 2 tablet = 100 mg, By Mouth, Daily at bedtime, # 60 tablet, 6 Refills, Maintenance, 11/04/19 11:08:00 EDT, Tablet, [facility], weaning zonegran off by 25mg [...] Refills, Soft Stop, 11/25/19 21:26:00 EDT, Tablet, [facility], 160.02, cm, 11/15/19 10:05:00 EDT, Height,... Start Date: 11/25/19 Status: Ordered Zofran 4 mg oral tablet 1 tablet = 4 mg, By Mouth, Every 8 hours, PRN Nausea & Vomiting, # 30 tablet, 0 Refills, Maintenance, 09/30/19 11:23:00 EDT, [facility], 160.02, cm, 09/24/19 15:31:00 EDT, Height, [...] perst 3folowed by mental health;recent hospitalization 4gyn 50880 6testing negative insulinoma 7likley dumping sydrome 8abnormal GTT ;sugar 36 two hours into test 9sees gi 10normal CT brain 11new 125.3 cm,right per ct scan recent;seeing gynecology soon;they will review 13vit d deficiency;correct 283637 15per endocrinology monitor 16correction refer GTT; 2 hour glucose 36 17refer GGT 18seeing ortho;pre op 19asma,ama neg/cerulopalsmain wnl,AAT wnl 20Negative hep A antibody positive hep B surface antibody negative antigen negative hep C, normal ferritin 21ukltrasound Social History Social History Type Response Smoking Status Never smoker entered on: 02/20/13 Sex
--- OUTSIDE RECORDS SUMMARY | 2022-08-17 08:39 | XMS_ITS | Continuity of Care Document ---
Author Name Unknown Organization [facility] Address [address] [place] [address]- Care Team Providers Care Heater Room Helper Name Role Phone Eran Sue JOHNSON Primary Care Physician Encounter [facility] Date(s): 06/01/22 - 07/01/22 [facility] [address] [place] [address]- [place] Allergies, Adverse Reactions, Alerts Substance Reaction Severity Status Dust Allergy to pollen Active Pollen seasonal allergies respiratory symptoms Active Incruse Ellipta 1 lightheaded and migraine Active 1dizzy Immunizations Given and Recorded Vaccine Date Status Refusal Reason [id number] 12y+ bivalent booster vax 1 12/24/21 Given [...] vaccine, inactivated 02/08/11 Give n SARS-CoV-2 mRNA ([id number]-koba-jreor) vax 05/01/21 Recorded zoster vaccine, inactivated 11/03/20 [...] tetanus-diphtheria toxoids (Td) 08/03/05 Given 1Result Comment: [address]-9 2Result Comment: [id number] 3Result Comment: [12/07/2017] [address]-59 4Result Comment: [12/21/2016] [facility]: [id number] 5Result Comment: [06/10/2015] #3 6Admin Note: per pt 7Admin Note: given in clinic Medications acetaminophen 500 mg oral tablet 2 tablet = 1,000 mg, By Mouth, Every 6 hours, PRN as needed for fever, # 200 tablet, 0 Refills, Maintenance, 12/03/21 10:17:00 EDT, Tablet, [facility], Partial fill upon patient request if the prescription is for a schedule II opi... Start Date: 12/03/21 Status: Ordered Albuterol (Eqv-ProAir HFA) 90 mcg/inh inhalation aerosol 2 puffs, Inhalation, Every 4 hours, PRN NEEDED FOR WHEEZING, # 8.5 Gm, 5 Refills, Maintenance, 03/09/22 11:21:00 EST, [facility], 17, INHALE TWO PUFFS BY [...] 6 Refills, Maintenance, 11/03/21 8:23:00 EDT, Tablet, [facility], 2 tablet By Mouth 2 times a day, 158, cm, 11/03/21 8:01:00 EDT,Height, 71.5, kg, 09/01/21 16:21:00 EDT, Dry Weight Start Date: 11/03/21 Status: Ordered Carafate 1 gm/10 ml oral suspension 10 mL = 1 Gm, By Mouth, 3 times a day before meals and bedtime, # 1,200 mL, 5 Refills, Maintenance,04/29/22 9:16:00 EST, [facility] #[id number], Partial fill upon patient request if the prescription is for a schedule II opioid drug., 158, cm, 02... Start Date: 04/29/22 Status: Ordered cetirizine 10 mg oral tablet 1 tablet, By Mouth, Daily, # 30 tablet, 5 Refills, Maintenance, 06/03/22 11:40:00 EDT, [facility], 158, cm, 05/25/22 13:59:00 EDT, [...] Refills, Maintenance, 05/30/22 7:57:00 EDT, CR Capsule, [facility], Partial fill upon patient request if the prescription is for a schedule II opioid... Start Date: 05/30/22 Status: Ordered Emgality Prefilled Pen 120 mg/mL subcutaneous solution = 120 mg, Subcutaneous Injection, Once, Maintenance Dose, # 3 kit, 2 Refills, Soft Stop, 03/17/22 8:08:00 EST, [facility], requesting 3 month supply for cheaper martinez. with 2 refills, 163, albertina, 03/15/22 10:13:00 EST, Height, 68.1,... Start Date: 03/17/22 Status: Ordered EPINEPHrine 1 mg/mL injectable solution 0.3 mL = 0.3 mg, Intramuscular, Once, # 1 mL, 1 Refills, Soft Stop, 03/08/21 15:07:00 EST, Solution, [facility], Partial fill upon patient request if the prescription is for a schedule II opioid drug., 158, cm, 03/08/21 12:18:00 E... Start Date: 03/08/21 Status: Ordered famotidine 40 mg oral tablet 1 tablet = 40 mg, By Mouth, 2 times a day, # 60 tablet, 6 Refills, Maintenance, 01/31/22 14:05:00 EST, Suspension, [facility], Partial fill upon patient request if the prescription is for a schedule II opioid drug., 163, cm, 01/18... Start Date: 01/31/22 Stop Date: 08/29/22 Status: Ordered Fiber Choice 1.5 g oral tablet, chewable 1 tablet = 1.5 Gm, Chew, 3 times a day, # 90 tablet, 0 Refills, Maintenance, 04/09/22 15:16:00 EST,Chew Tablet, [facility] #[id number], Partial fill upon patient request if the [...] Refills, Maintenance, 04/09/22 15:16:00 EST, REC Powder, [facility] #[id number], Partial fill upon patient request if the prescription is for a schedule II opioid drug., 17 Gm... Start Date: 04/09/22 Status: Ordered montelukast 10 mg oral tablet 1, tablet, By Mouth, Daily in PM, # 90 tablet, Refills 1, Tot. Refills 1, Maintenance, 11/14/21 11:28:00 EDT, Route to Pharmacy Electronically, [facility], 158, cm, 11/03/21 8:01:00 EDT, Height, 71.5, kg, 09/01/21 16:21:00 EDT, . Start Date: 11/14/21 Status: Ordered Nurtec ODT 75 mg oral tablet, disintegrating See Instructions, TAKE ONE TABLET DAILY NEEDED FOR migraines, DO NOT EXCEED ONE TABLET IN 24 HOURS, # 8 tablet, 6 Refills, Maintenance, 12/28/21 15:14:00 EDT, [facility], 163,cm, 12/24/21 8:20:00 EDT, Height, [...] each, 0 Refills, Maintenance, 04/06/22 15:29:00 EST, [facility] #[id number], Partial fi... Start Date: 04/06/22 Status: Ordered Reclast = 5 mg, IV Infusion, Once, 0 Refills, Maintenance, 11/06/20 10:24:00 EDT, administered at [facility] 10/2020 Start Date: 11/06/20 Status: Ordered Stool Softener + Stimulant Laxative 50 mg-8.6 mg oral capsule 1 capsule, By Mouth, Daily in PM, # 60 capsule, 0 Refills, Maintenance, 04/09/22 15:17:00 EST, Capsule, [facility] #[id number], Partial fill upon patient request if the prescription is for a schedule II opioid drug., 1 capsule By Mouth Daily in P... Start Date: 04/09/22 Status: Ordered Symbicort 160mcg/4.5mcg Inhaler 2, puffs, Inhalation, 2 times a day, rinse mouth and throat after use, # 10.2 Gm, Refills 2, Tot. Refills 2, Maintenance, 06/10/22 20:48:00 EDT, Route to Pharmacy Electronically, NCPDP_[id number], [facility], 158, cm, 06/07/22 10:... Start [...] Active Vitamin D deficiency Confirmed Active 1gyn 14756 3testing negative insulinoma 4likley dumping sydrome 5abnormal GTT ;sugar 36 two hours into test 6normal CT brain 7new 8resolved after weight loss 9chronic perst 105.3 cm,right per ct scan recent;seeing gynecology soon;they will review 11vit d deficiency;correct 511248 13per endocrinology monitor 14correction refer GTT; 2 [...] Care Nurse Name: Sue Barillas NP Position: [facility] PCO Associate Professional Member Role: PCP Address: Address: [address] [place], [place] [address] Name: Andria Guadalupe RN Position: [facility] SN RN Member Role: Primary Care Nurse Name: Liz Martin RN Position: [facility] RN Member Role: Primary Care Nurse Name: Ambreen Mcmahon RN Position: [facility] RN Member Role: Primary Care Nurse Name: Irais Grijalva RN Position: [facility] RN Member Role: Primary Care Nurse Name: Autumn Martinez RN Position: [facility] SN RN Member Role: Primary Care Nurse Name: Liz English RN Position: [facility] RN Member Role: Primary Care Nurse Name: Dora Williamson RN Position: [facility] RN Member Role: Primary Care Nurse Care Team Related Persons Name: KHUSHI CUNNINGHAM Address: home [address] [place] [address] Name: BHUPINDER VENEGAS Address: home [address] [place] [address] Name: FELIPE FLORES Address: home [address] [place] [address] Name: ARNAV FLORES Address: home [address] [place] [address] Name: IRINA FLORES Address: home [address] [place] [address] Name: RUSLAN FLORES Address: home [address] [place] [address] Name: KAISER PLUNKETT Address: home [address] [place] [address]
--- OUTSIDE RECORDS SUMMARY | 2022-08-17 08:40 | XMS_ITS | Continuity of Care Document ---
Author Name Unknown Organization [facility] Address [address] [place] [address]- Care Team Providers Care Hot Mill Worker Name Role Phone Eran Sue JOHNSON Primary Care Physician [phone] Encounter [facility] Date(s): 12/28/21 - 01/27/22 [facility] [address] [place] [address]- [place] Allergies, Adverse Reactions, Alerts Substance Reaction Severity Status Dust Allergy to pollen Active Pollen seasonal allergies respiratory symptoms Active Incruse Ellipta 1 lightheaded and migraine Active 1dizzy Immunizations Given and Recorded Vaccine Date Status Refusal Reason [id number] 12y+ bivalent booster vax 1 12/24/21 Given [...] vaccine, inactivated 02/08/11 Give n SARS-CoV-2 mRNA (qrnwvhf-eary-[id number]) vax 05/01/21 Recorded zoster vaccine, inactivated 11/03/20 [...] tetanus-diphtheria toxoids (Td) 08/03/05 Given 1Result Comment: [id number] 2Result Comment: [id number] 3Result Comment: [12/07/2017] [id number] 4Result Comment: [12/21/2016] [facility]: [id number] 5Result Comment: [06/10/2015] #3 6Admin Note: per pt 7Admin Note: given in clinic Medications acarbose 25 mg oral tablet See Instructions, 1 tablet with 50 mg (total 75 mg) By Mouth before lunch, # 30 each, 11 Refills, Maintenance, 11/03/21 8:24:00 EDT, Tablet, [facility], 158, cm, 11/03/21 8:01:00EDT, Height, 71.5, kg, 09/01/21 16:21:00 EDT, Dry W... Start Date: 11/03/21 Status: Ordered acarbose 50 mg oral tablet See Instructions, 1 tablet with 25 mg (total 75 mg) By Mouth before lunch, # 30 each, 11 Refills, Maintenance, 11/03/21 8:23:00 EDT, Tablet, [facility], Partial fill upon patientrequest if the prescription is for a schedule II op... Start Date: 11/03/21 Status: Ordered acetaminophen 500 mg oral tablet 2 tablet = 1,000 mg, By Mouth, Every 6 hours, PRN as needed for fever, # 200 tablet, 0 Refills, Maintenance, 12/03/21 10:17:00 EDT, Tablet, [facility], Partial fill upon patient request if the prescription is for a schedule II opi... Start Date: 12/03/21 Status: Ordered Albuterol (Eqv-ProAir HFA) 90 mcg/inh inhalation aerosol 2 puffs, Inhalation, Every 4 hours, PRN NEEDED FOR WHEEZING, # 8.5 Gm, 1 Refills, Maintenance, 12/03/21 14:16:00 EDT, [facility], 18, INHALE TWO PUFFS EVERY 4 HOURS NEEDED FOR WHEEZING, 163, cm, 12/03/21 9:39:00 EDT, Height,... Start Date: 12/03/21 Status: Ordered calcium (as citrate)-vitamin D 315 mg-250 intl units oral tablet 2 tablet, By Mouth, 2 times a day, # 120 tablet, 6 Refills, Maintenance, 11/03/21 8:23:00 EDT, Tablet, [facility], 2 tablet By Mouth 2 times [...] Refills, Maintenance, 11/22/21 9:49:00 EDT, CR Capsule, [facility], Partial fill upon patient request if the prescription is for a schedule II opioid... Start Date: 11/22/21 Status: Ordered Emgality Prefilled Pen 120 mg/mL subcutaneous solution = 120 mg, Subcutaneous Injection, Once, Maintenance Dose, # 1 kit, 6 Refills, Soft Stop, 12/30/21 12:19:00 EDT, [facility], Partial fill upon patient request if the prescription is for a schedule II opioid drug., 163, cm, 12/24/21... Start Date: 12/30/21 Status: Ordered EPINEPHrine 1 mg/mL injectable solution 0.3 mL = 0.3 mg, Intramuscular, Once, # 1 mL, 1 Refills, Soft Stop, 03/08/21 15:07:00 EST, Solution, [facility], Partial fill upon patient request if [...] 11/15/21 10:56:00 EDT, Route to Pharmacy Electronically, [facility], 158, cm, 11/03/21 8:01:00 EDT, Height, 71.5, kg, 09/01/21 16:21:00 EDT, Mark Start Date: 11/15/21 Status: Ordered montelukast 10 mg oral tablet 1, tablet, By Mouth, Daily in PM, # 90 tablet, Refills 1, Tot. Refills 1, Maintenance, 11/14/21 11:28:00 EDT, Route to Pharmacy Electronically, [facility], 158, cm, 11/03/21 8:01:00 EDT, Height, 71.5, kg, 09/01/21 16:21:00 EDT, Start Date: 11/14/21 Status: Ordered Nurtec ODT 75 mg oral tablet, disintegrating See Instructions, TAKE ONE TABLET DAILY NEEDED FOR migraines, DO NOT EXCEED ONE TABLET IN 24 HOURS, # 8 tablet, 6 Refills, Maintenance, 12/28/21 15:14:00 EDT, [facility], 163,cm, 12/24/21 8:20:00 EDT, Height, 67, kg, 11/26/21... Start Date: 12/28/21 Status: Ordered Paxlovid 150 mg-100 mg (150 mg-100 mg Dose) oral tablet See Instructions, Take 3 tablets by mouth twice a day for 5 days GFR avove 60, # 30 tablet, 0 Refills, Maintenance, 01/18/22 8:00:00 EST, [facility], Partial fill upon patient request if [...] 11/23/21 19:57:00 EDT, Route to Pharmacy Electronically, NCPDP_[id number], [facility], 158, cm, 11/03/21 8:0... Start Date: [...] 5 Refills, Maintenance, 12/10/21 9:44:00 EDT, Tablet, [facility], Partial fill upon patient request if [...] Active Vitamin D deficiency Confirmed Active 1gyn 96512 3testing negative insulinoma 4likley dumping sydrome 5abnormal GTT ;sugar 36 two hours into test 6sees gi 7normal CT brain 8new 9resolved after weight loss 10chronic perst 115.3 cm,right per ct scan recent;seeing gynecology soon;they will review 12vit d deficiency;correct 083899 14per endocrinology monitor 15correction refer GTT; 2 hour glucose 36 16refer GGT 17seeing ortho;pre op 18asma,ama neg/cerulopalsmain wnl,AAT wnl 19Negative hep A antibody positive hep B surface antibody negative antigen negative hep C, normal ferritin 20ukltrasound Social History Social History Type Response Smoking Status Never smoker entered on: 02/20/13 Sex Patient Care team information Care Team Personnel Name: Caitlyn Mcgee RN Position: [facility] RN Member Role: Primary Care Nurse Name: Sue Barillas NP Position: [facility] PCO Associate Professional Member Role: PCP Address: Address: [address] [place] [address]- Name: Andria Guadalupe RN Position: [facility] RN Member Role: Primary Care Nurse Name: Liz Martin RN Position: [facility] RN Member Role: Primary Care Nurse Name: Ambreen Mcmahon RN Position: [facility] RN Member Role: Primary Care Nurse Name: Irais Grijalva RN Position: [facility] RN Member Role: Primary Care Nurse Name: Autumn Martinez RN Position: [facility] RN Member Role: Primary Care Nurse Name: Concha Mckinley RN Position: [facility] RN Member Role: Primary Care Nurse Name: Liz English RN Position: [facility] RN Member Role: Primary Care Nurse Name: Dora Williamson RN Position: [facility] RN Member Role: Primary Care Nurse Care Team Related Persons Name: KHUSHI CUNNINGHAM Address: [address] [place] [address] Name: BHUPINDER VENEGAS Address: [address] [place] [address] Name: FELIPE FLORES Address: home [address] [place] [address] Name: ARNAV FLORES Address: home [address] [place] [address] Name: IRINA FLORES Address: [address] [place] [address] Name: RUSLAN FLORES Address: home [address] [place] [address] Name: KAISER PLUNKETT Address: home [address] [place] [address]
--- OUTSIDE RECORDS SUMMARY | 2022-08-17 08:40 | XMS_ITS | Continuity of Care Document ---
Author Name Unknown Organization [facility] Address [address] [place] [address]- Care Team Providers Care Principal Java Developer Name Role Phone Taras Jasso MD Primary Care Physician [phone] Encounter [facility] Date(s): 05/08/20 - 05/15/20 [facility] [address] [place] [address]- Encounter Diagnosis Personal history of gastric bypass 2003(Discharge Diagnosis) - 05/08/20 H/O laparoscopic adjustable gastric banding 2007/Feb 2021(Discharge Diagnosis) - 05/08/20 Asthma(Discharge Diagnosis) - 05/08/20 Hammer toe of left foot(Discharge Diagnosis) - 05/08/20 Bipolar disorder NOS(Discharge Diagnosis) - 05/08/20 Esophageal reflux (GERD) egd 2017(Discharge Diagnosis) - 05/08/20 Fatty liver(Discharge Diagnosis) - 05/08/20 EKG abnormality qs v1 chronic(Discharge Diagnosis) - 05/08/20 Migraines(Discharge Diagnosis) - 05/08/20 Attending Physician: Taras Jasso MD Referring Physician: Bonita Devine DPM Allergies, Adverse Reactions, Alerts Substance Reaction Severity [...] toxoids (Td) 08/03/05 Given 1Result Comment: [12/07/2017] [id number] 2Result Comment: [12/21/2016] [facility]: [id number] 3Result Comment: [06/10/2015] #3 4Admin Note: per [...] 11:32:00 EST, Aerosol, Route to Pharmacy Electronically, NCPDP_[id number], [facility], [...] perst 3folowed by mental health;recent hospitalization 4gyn 91074 6testing negative insulinoma 7likley dumping sydrome 8abnormal GTT ;sugar 36 two hours into test 9sees gi 10normal CT brain 11new 125.3 cm,right per ct scan recent;seeing gynecology soon;they will review 13vit d deficiency;correct 804789 15per endocrinology monitor 16correction refer GTT; 2 hour glucose 36 17refer GGT 18seeing ortho;pre op 19asma,ama neg/cerulopalsmain wnl,AAT wnl 20Negative hep A antibody positive hep B surface antibody negative antigen negative hep C, normal ferritin 21ukltrasound Diagnosis Diagnosis Type Effective Dates Health Status Clinical Service Informant Hammer toe of left foot Discharge Diagnosis 05/08/20 Asthma Discharge Diagnosis 05/08/20 H/O laparoscopic adjustable gastric banding 2007/removed FEB 2021 Discharge Diagnosis 05/08/20 Personal history of gastric bypass 2003 Discharge Diagnosis 05/08/20 Bipolar disorder NOS Discharge Diagnosis 05/08/20 Esophageal reflux (GERD) egd 2017 Discharge Diagnosis 05/08/20 Fatty liver Discharge Diagnosis 05/08/20 EKG abnormality qs v1 chronic Discharge Diagnosis 05/08/20 Migraines Discharge Diagnosis 05/08/20 Procedures Procedure Date Related Diagnosis Body Site Status CT of abdomen and pelvis 1 05/04/20 Completed 1No evidence of acute inflammatory process in the abdomen and pelvis. Status post gastric bypass. Interval removal of the lap-band. Small paraesophageal hernia and possible associated reflux. Vital Signs Most recent to oldest [Reference Range]: 1 Height 160.02 cm (05/08/20 8:46 AM) Weight 80.5 kg (05/08/20 8:46 AM) Oxygen Saturation [94-100 %] 98 % (05/08/20 8:46 AM) Pulse Rate [55-90 bpm] 72 bpm (05/08/20 8:46 AM) Body Mass Index [18.5-24.99] 31.44 *>HHI* (05/08/20 8:46 AM) Blood Pressure [90-138/55-84 mm Hg] 90/6 2mm Hg (05/08/20 8:46 AM) Respiratory Rate [16-30 br/min] 16 br/mi n (05/08/20 8:46 AM) Blood pressure sites Arm, left (05/08/20 8:46 AM) Social History Social History Type Response Smoking Status Never smoker entered on: 02/20/13 Sex
--- OUTSIDE RECORDS SUMMARY | 2022-08-17 08:40 | XMS_ITS | Continuity of Care Document ---
Author Name Unknown Organization [facility] Oswaldo lt Address [address] [place] [address]- Care Team Providers Care Intellectual Property Legal Assistant Name Role Phone Louisa LANDRUM, Taras Fuentes Primary Care Physician Encounter [facility] Date(s): 04/09/20 - 05/09/20 [facility] [address] [place] [address]- Allergies, Adverse Reactions, Alerts Substance Reaction Severity [...] toxoids (Td) 08/03/05 Given 1Result Comment: [12/07/2017] [id number] 2Result Comment: [12/21/2016] [facility]: [id number] 3Result Comment: [06/10/2015] #3 4Admin Note: per [...] 0 Refills, Maintenance, 07/03/19 13:59:00 EDT, Solution, [facility], 160, cm, 05/29/19 13:36:00 [...] 60 capsule, 5 Refills, Maintenance, 05/07/20 15:54:00EST, [facility], 160.02, cm, 05/01/20 9:18:00 [...] 1 Refills, Soft Stop, 11/20/19 11:59:00 EDT, [facility], 160.02, cm, 11/15/19 10:05:00 [...] 02/25/19 16:55:00 EST, Route to Pharmacy Electronically, [facility], 158, cm, 02/14/19 7:55:00 EST, Height, 61.9, kg, 02/12/19 10:17:00... Start Date: 02/25/19 Status: Ordered montelukast 10 mg oral tablet 10 mg, 1, tablet, By Mouth, Daily in PM, # 90 tablet, Refills 3, Tot. Refills 3, Maintenance, 08/15/19 16:21:00 EDT, Route to Pharmacy Electronically, [facility], 160, cm, 08/15/19 13:45:00 EDT, Height, 56.5, kg, 05/29/19 13:36:00... Start Date: 08/15/19 Status: Ordered ProAir HFA 90 mcg/inh inhalation aerosol with adapter 2, puffs, Inhalation, Every 4 hours, PRN, # 8.5 Gm, Refills 2, Tot. Refills 2, Maintenance, 04/29/19 11:32:00 EST, Aerosol, Route to Pharmacy Electronically, NCPDP_[id number], [facility], 160, cm, 04/29/19 10:47:00 EST, Height... Start Date: 04/29/19 Status: Ordered Topamax 50 mg oral tablet See Instructions, take 1 tab in am and 2 tab at bedtime. If AM dose causes bad sedation, add to HS dose., # 90 tablet, 6 Refills, Maintenance, 03/12/20 11:09:00 EST, Tablet, [facility], weaning zonegran off by 25mg every 2 days t... Start Date: 03/12/20 Status: Ordered ubrogepant 100 mg oral tablet 1 tablet = 100 mg, By Mouth, Daily, # 10 tablet, 6 Refills, Soft Stop, 03/12/20 11:04:00 EST, [facility], Partial fill upon patient [...] perst 3folowed by mental health;recent hospitalization 4gyn 00643 6testing negative insulinoma 7likley dumping sydrome 8abnormal GTT ;sugar 36 two hours into test 9sees gi 10normal CT brain 11new 125.3 cm,right per ct scan recent;seeing gynecology soon;they will review 13vit d deficiency;correct 531231 15per endocrinology monitor 16correction refer GTT; 2 hour glucose 36 17refer GGT 18seeing ortho;pre op 19asma,ama neg/cerulopalsmain wnl,AAT wnl 20Negative hep A antibody positive hep B surface antibody negative antigen negative hep C, normal ferritin 21ukltrasound Social History Social History Type Response Smoking Status Never smoker entered on: 02/20/13 Sex
--- OUTSIDE RECORDS SUMMARY | 2022-08-17 08:40 | XMS_ITS | Continuity of Care Document ---
Author Name Unknown Organization [facility] Oswaldo Address [address] [place] [address]- Care Team Providers Care Hide Trimmer Name Role Phone Eran HARDWOOD FLOOR REFINISHER, Sue Dahl Primary Care Physician [phone] Encounter [facility] Date(s): 06/24/21 - 07/24/21 [facility] Adult [address] [place] [address]- Allergies, Adverse Reactions, Alerts Substance Reaction Severity Status Dust Allergy to pollen Active Pollen seasonal allergies respiratory symptoms Active Incruse Ellipta 1 lightheaded and migraine Active 1dizzy Immunizations Given and Recorded Vaccine Date Status Refusal Reason SARS-CoV-2 mRNA (xsxvhmw-arml-xyalc) vax 05/01/21 Recorded influenza virus vaccine, inactivated [...] toxoids (Td) 08/03/05 Given 1Result Comment: [12/07/2017] [address]-38 2Result Comment: [12/21/2016] [facility]: 95449-018-56 3Result Comment: [06/10/2015] #3 4Admin Note: per [...] 3 Refills, Maintenance, 02/03/21 8:34:00 EST, Tablet, [facility], Partial fill upon patient request if the prescript... Start Date: 02/03/21 Status: Ordered acarbose 50 mg oral tablet 1 tablet = 50 mg, By Mouth, 3 times a day, Take 1 tab (plus 1 25mg tab), 3 times daily with meals.,# 270 tablet, 3 Refills, Maintenance, 02/03/21 8:34:00 EST, Tablet, [facility], Partial fill upon patient request if the prescript... Start Date: 02/03/21 Status: Ordered Baqsimi One Pack 3 mg nasal powder See Instructions, 3 mg Once intrasnasally for severe hypoglycemia, # 2 each, 3 Refills, Soft Stop, 08/28/20 10:36:00 EDT, [facility], Partial fill [...] Refills, Maintenance, 03/03/21 16:42:00 EST, REC Powder, [facility], Partial fill upon [...] 30 mL, 1 Refills, 06/28/21 13:52:00 EDT, [facility], 158, cm, 05/24/21 16:05:00 EDT, Height, 80.6, kg, 03/08/21 12:18... Start Date: 06/28/21 Status: Ordered Dexilant 60 mg oral delayed release capsule 1 capsule = 60 mg, By Mouth, 2 times a day, 30 min before meal, # 60 capsule, 5 Refills, Maintenance, 04/16/21 14:29:00 EST, CR Capsule, [facility], Partial fill upon patient request if the prescription is for a schedule II opioi... Start Date: 04/16/21 Status: Ordered Emgality Prefilled Pen 120 mg/mL subcutaneous solution = 120 mg, Subcutaneous Injection, Once, Maintenance Dose, # 1 kit, 6 Refills, Soft Stop, 06/29/21 10:09:00 EDT, [facility], Partial fill upon patient request if the prescription is for a schedule II opioid drug., 158, cm, 06/29/21... Start Date: 06/29/21 Status: Ordered Emgality Prefilled Pen 120 mg/mL subcutaneous solution = 240 mg, Subcutaneous Injection, Once, Loading Dose, # 2 kit, 0 Refills, Soft Stop, 03/16/21 16:05:00 EST, [facility], Partial fill [...] 1 Refills, Maintenance, 04/06/21 9:45:00 EST, Solution, [facility], Partial fill upon patient request if the prescription is for a schedule II opioid drug.... Start Date: 04/06/21 Status: Ordered loratadine 10 mg oral tablet 10 mg, 1, tablet, By Mouth, Daily, # 90 tablet, Refills 0, Tot. Refills 0, Maintenance, 05/24/21 11:12:00 EDT, Route to Pharmacy Electronically, [facility], 158, cm, 05/14/21 7:52:00 EST, Height, 80.6, kg, 03/08/21 12:18:00 EST, D... Start Date: 05/24/21 Status: Ordered meclizine 25 mg oral tablet See Instructions, PRN for dizziness, Take 1 tablet every 8 hours as needed for dizziness, # 15 tablet, 0 Refills, Maintenance, 11/03/20 7:49:00 EDT, Tablet, [facility], Partial fill upon patient request if the prescription is for... Start Date: 11/03/20 Status: Ordered montelukast 10 mg oral tablet 10 mg, 1, tablet, By Mouth, Daily in PM, # 90 tablet, Refills 1, Tot. Refills 1, Maintenance, 04/23/21 12:32:00 EST, Route to Pharmacy Electronically, [facility], 158, cm, 04/09/21 8:13:00 [...] 6 Refills, Maintenance, 12/10/20 12:36:00 EDT,DIS Tablet, [facility], has t... Start Date: 12/10/20 Stop Date: 07/08/21 Status: Ordered [place] 0.65% nasal spray 2 sprays, Nares, Both, 4 times a day, # 1 each, 3 Refills, Maintenance, 05/14/21 11:40:00 EST, [facility], Partial fill [...] 19:25:00 EST, Aerosol, Route to Pharmacy Electronically, NCPDP_[id number], [facility], 158, cm, 05/06/21 6:58:00 [...] Gm, Refills 11, Route to Pharmacy Electronically, NCPDP_[id number], [facility], 158.02, cm, 11/13/20 8:38:00 [...] 1resolved after weight loss 2chronic perst 3gyn 83114 5testing negative insulinoma 6likley dumping sydrome 7abnormal GTT ;sugar 36 two hours into test 8sees gi 9normal CT brain 10new 115.3 cm,right per ct scan recent;seeing gynecology soon;they will review 12vit d deficiency;correct [id number] 14per endocrinology monitor 15correction refer GTT; 2 hour glucose 36 16refer GGT 17seeing ortho;pre op 18asma,ama neg/cerulopalsmain wnl,AAT wnl 19Negative hep A antibody positive hep B surface antibody negative antigen negative hep C, normal ferritin 20ukltrasound Social History Social History Type Response Smoking Status Never smoker entered on: 02/20/13 Sex
--- OUTSIDE RECORDS SUMMARY | 2022-08-17 08:40 | XMS_ITS | Continuity of Care Document ---
Author Name Unknown Organization [facility] Address [address] [place] [address]- Care Team Providers Care Cytopathologist Name Role Phone Eran Sue JOHNSON Primary Care Physician [phone] Encounter [facility] Date(s): 05/30/22 - 06/29/22 [facility] [address] [place] [address]- [place] Allergies, Adverse Reactions, Alerts Substance Reaction Severity Status Dust Allergy to pollen Active Pollen seasonal allergies respiratory symptoms Active Incruse Ellipta 1 lightheaded and migraine Active 1dizzy Immunizations Given and Recorded Vaccine Date Status Refusal Reason [id number] 12y+ bivalent booster vax 1 12/24/21 Given [...] vaccine, inactivated 02/08/11 Give n SARS-CoV-2 mRNA (gijvbip-hoau-ikoxs) vax 05/01/21 Recorded zoster vaccine, inactivated 11/03/20 [...] tetanus-diphtheria toxoids (Td) 08/03/05 Given 1Result Comment: [id number] 2Result Comment: 73198-323-43 3Result Comment: [12/07/2017] [address]-46 4Result Comment: [12/21/2016] [facility]: 23461-753-54 5Result Comment: [06/10/2015] #3 6Admin Note: per pt 7Admin Note: given in clinic Medications acetaminophen 500 mg oral tablet 2 tablet = 1,000 mg, By Mouth, Every 6 hours, PRN as needed for fever, # 200 tablet, 0 Refills, Maintenance, 12/03/21 10:17:00 EDT, Tablet, [facility], Partial fill upon patient request if the prescription is for a schedule II opi... Start Date: 12/03/21 Status: Ordered Albuterol (Eqv-ProAir HFA) 90 mcg/inh inhalation aerosol 2 puffs, Inhalation, Every 4 hours, PRN NEEDED FOR WHEEZING, # 8.5 Gm, 5 Refills, Maintenance, 03/09/22 11:21:00 EST, [facility], 17, INHALE TWO PUFFS BY MOUTH [...] Refills, Maintenance, 11/03/21 8:23:00 EDT, Tablet, [facility], 2 tablet By Mouth 2 times a day, 158, cm, 11/03/21 8:01:00 EDT,Height, 71.5, kg, 09/01/21 16:21:00 EDT, Dry Weight Start Date: 11/03/21 Status: Ordered Carafate 1 gm/10 ml oral suspension 10 mL = 1 Gm, By Mouth, 3 times a day before meals and bedtime, # 1,200 mL, 5 Refills, Maintenance,04/29/22 9:16:00 EST, [id number], Partial fill upon patient request if the prescription is for a schedule II opioid drug., 158, cm, 02... Start Date: 04/29/22 Status: Ordered cetirizine 10 mg oral tablet 1 tablet, By Mouth, Daily, # 30 tablet, 5 Refills, Maintenance, 06/03/22 11:40:00 EDT, [facility], 158, cm, 05/25/22 13:59:00 EDT, Height, [...] Refills, Maintenance, 05/30/22 7:57:00 EDT, CR Capsule, [facility], Partial fill upon patient request if the prescription is for a schedule II opioid... Start Date: 05/30/22 Status: Ordered Emgality Prefilled Pen 120 mg/mL subcutaneous solution = 120 mg, Subcutaneous Injection, Once, Maintenance Dose, # 3 kit, 2 Refills, Soft Stop, 03/17/22 8:08:00 EST, [facility], requesting 3 month supply for cheaper martinez. with 2 refills, 163, albertina, 03/15/22 10:13:00 EST, Height, 68.1,... Start Date: 03/17/22 Status: Ordered EPINEPHrine 1 mg/mL injectable solution 0.3 mL = 0.3 mg, Intramuscular, Once, # 1 mL, 1 Refills, Soft Stop, 03/08/21 15:07:00 EST, Solution, [facility], Partial fill upon patient request if the prescription is for a schedule II opioid drug., 158, cm, 03/08/21 12:18:00 E... Start Date: 03/08/21 Status: Ordered famotidine 40 mg oral tablet 1 tablet = 40 mg, By Mouth, 2 times a day, # 60 tablet, 6 Refills, Maintenance, 01/31/22 14:05:00 EST, Suspension, [facility], Partial fill upon patient request if the prescription is for a schedule II opioid drug., 163, cm, 01/18... Start Date: 01/31/22 Stop Date: 08/29/22 Status: Ordered Fiber Choice 1.5 g oral tablet, chewable 1 tablet = 1.5 Gm, Chew, 3 times a day, # 90 tablet, 0 Refills, Maintenance, 04/09/22 15:16:00 EST,Chew Tablet, [id number], Partial fill upon patient request if the [...] Refills, Maintenance, 04/09/22 15:16:00 EST, REC Powder, [facility][id number], Partial fill upon patient request if the prescription is for a schedule II opioid drug., 17 Gm... Start Date: 04/09/22 Status: Ordered montelukast 10 mg oral tablet 1, tablet, By Mouth, Daily in PM, # 90 tablet, Refills 1, Tot. Refills 1, Maintenance, 11/14/21 11:28:00 EDT, Route to Pharmacy Electronically, [facility], 158, cm, 11/03/21 8:01:00 EDT, Height, 71.5, kg, 09/01/21 16:21:00 EDT, . Start Date: 11/14/21 Status: Ordered Nurtec ODT 75 mg oral tablet, disintegrating See Instructions, TAKE ONE TABLET DAILY NEEDED FOR migraines, DO NOT EXCEED ONE TABLET IN 24 HOURS, # 8 tablet, 6 Refills, Maintenance, 12/28/21 15:14:00 EDT, [facility], 163,cm, 12/24/21 8:20:00 EDT, Height, 67, [...] each, 0 Refills, Maintenance, 04/06/22 15:29:00 EST, [facility] #[id number], Partial fi... Start Date: 04/06/22 Status: Ordered Reclast = 5 mg, IV Infusion, Once, 0 Refills, Maintenance, 11/06/20 10:24:00 EDT, administered at [facility] 10/2020 Start Date: 11/06/20 Status: Ordered Stool Softener + Stimulant Laxative 50 mg-8.6 mg oral capsule 1 capsule, By Mouth, Daily in PM, # 60 capsule, 0 Refills, Maintenance, 04/09/22 15:17:00 EST, Capsule, [facility] #[id number], Partial fill upon patient request if the prescription is for a schedule II opioid drug., 1 capsule By Mouth Daily in P... Start Date: 04/09/22 Status: Ordered Symbicort 160mcg/4.5mcg Inhaler 2, puffs, Inhalation, 2 times a day, rinse mouth and throat after use, # 10.2 Gm, Refills 2, Tot. Refills 2, Maintenance, 06/10/22 20:48:00 EDT, Route to Pharmacy Electronically, NCPDP_[id number], [facility], 158, cm, 06/07/22 10:... Start Date: [...] Active Vitamin D deficiency Confirmed Active 1gyn 84923 3testing negative insulinoma 4likley dumping sydrome 5abnormal GTT ;sugar 36 two hours into test 6normal CT brain 7new 8resolved after weight loss 9chronic perst 105.3 cm,right per ct scan recent;seeing gynecology soon;they will review 11vit d deficiency;correct 779858 13per endocrinology monitor 14correction refer GTT; 2 [...] NP Position: [facility] PCO Associate Professional Member Role: PCP Address: Address: [address] [place], [place] [address] Name: Andria Guadalupe RN Position: [facility] SN RN Member Role: Primary Care Nurse Name: Liz Martin RN Position: [facility] RN Member Role: Primary Care Nurse Name: Ambreen Mcmahon RN Position: [facility] RN Member Role: Primary Care Nurse Name: Irais Grijalva RN Position: [facility] RN Member Role: Primary Care Nurse Name: Autumn Martinez RN Position: [facility] SN RN Member Role: Primary Care Nurse Name: Liz English RN Position: [facility] RN Member Role: Primary Care Nurse Name: Dora Williamson RN Position: [facility] RN Member Role: Primary Care Nurse Care Team Related Persons Name: KHUSHI CUNNINGHAM Address: home [address] [place] [address] Name: BHUPINDER VENEGAS Address: home [address] [place] [address] Name: FELIPE FLORES Address: home [address] [place] [address] Name: ARNAV FLORES Address: home [address] [place] [address] Name: RIINA FLORES Address: home [address] [place] [address] Name: RUSLAN FLORES Address: home [address] [place] [address] Name: KAISER PLUNKETT Address: home [address] [place] [address]
--- OUTSIDE RECORDS SUMMARY | 2022-08-17 08:40 | XMS_ITS | Continuity of Care Document ---
Author Name Unknown Organization [facility] Address [address] [place] [address]- Care Team Providers Care Auto Wheel Alignment Specialist Name Role Phone Louisa LANDRUM, Taras Fuentes Primary Care Physician Encounter [facility] [place] Date(s): 12/10/20 - 01/09/21 [facility] Adult [address] [place] [address]- Allergies, Adverse Reactions, Alerts Substance Reaction Severity [...] toxoids (Td) 08/03/05 Given 1Result Comment: [12/07/2017] [address]-35 2Result Comment: [12/21/2016] [facility]: 06395-989-22 3Result Comment: [06/10/2015] #3 4Admin Note: per [...] Maintenance, 07/13/20 16:29:00 EDT, Tablet, [facility], Partial [...] Maintenance, 07/03/19 13:59:00 EDT, Solution, [facility], 160, cm, 05/29/19 13:36:00 EDT, Height, [...] Date: 12/10/20 Stop Date: 07/08/21 Status: Ordered [place] 0.65% nasal spray 2 sprays, Nares, Both, [...] 8:26:00 EDT, Aerosol, Route to Pharmacy Electronically, NCPDP_[id number], [facility], 158.02, cm, 01/06/21 [...] Gm, Refills 11, Route to Pharmacy Electronically, NCPDP_[id number], [facility], 158.02, cm, 11/13/20 [...] 1resolved after weight loss 2chronic perst 3gyn 60163 5testing negative insulinoma 6likley dumping sydrome 7abnormal GTT ;sugar 36 two hours into test 8sees gi 9normal CT brain 10new 115.3 cm,right per ct scan recent;seeing gynecology soon;they will review 12vit d deficiency;correct 726206 14per endocrinology monitor 15correction refer GTT; 2 hour glucose 36 16refer GGT 17seeing ortho;pre op 18asma,ama neg/cerulopalsmain wnl,AAT wnl 19Negative hep A antibody positive hep B surface antibody negative antigen negative hep C, normal ferritin 20ukltrasound Social History Social History Type Response Smoking Status Never smoker entered on: 02/20/13 Sex
--- OUTSIDE RECORDS SUMMARY | 2022-08-17 08:40 | XMS_ITS | Continuity of Care Document ---
Author Name Unknown Organization [facility] Address [address] [place] [address]- Care Team Providers Care Muck Miner Blasting Name Role Phone Louisa LANDRUM, Taras Fuentes Primary Care Physician Encounter [facility] Date(s): 06/11/20 - 07/11/20 [facility] [address] [place] [address] Allergies, Adverse Reactions, Alerts [...] toxoids (Td) 08/03/05 Given 1Result Comment: [12/07/2017] [id number] 2Result Comment: [12/21/2016] [facility]: [id number] 3Result Comment: [06/10/2015] #3 4Admin Note: per [...] 11:32:00 EST, Aerosol, Route to Pharmacy Electronically, NCPDP_[id number], [facility], 160, [...] Maintenance, 06/13/20 14:10:00 EDT, Capsule, [facility],... Start Date: 06/13/20 Status: Ordered Problem [...] 1resolved after weight loss 2chronic perst 3gyn 25766 5testing negative insulinoma 6likley dumping sydrome 7abnormal GTT ;sugar 36 two hours into test 8sees gi 9normal CT brain 10new 115.3 cm,right per ct scan recent;seeing gynecology soon;they will review 12vit d deficiency;correct 374982 14per endocrinology monitor 15correction refer GTT; 2 hour glucose 36 16refer GGT 17seeing ortho;pre op 18asma,ama neg/cerulopalsmain wnl,AAT wnl 19Negative hep A antibody positive hep B surface antibody negative antigen negative hep C, normal ferritin 20ukltrasound Social History Social History Type Response Smoking Status Never smoker entered on: 02/20/13 Sex
--- OUTSIDE RECORDS SUMMARY | 2022-08-17 08:40 | XMS_ITS | Continuity of Care Document ---
Author Name Unknown Organization [facility] Address [address] [place] [address] sandi, [address] [place] [address]- Care Team Providers Care Chargemaster Analyst Name Role Phone Taras Jasso MD Primary Care Physician Encounter [facility] Date(s): 08/18/20 - 08/25/20 [facility] [address] [place] [address], [address] [place], [place] [address] Attending Physician: Zachery Lo MD Referring Physician: Taras Jasso MD Allergies, [...] toxoids (Td) 08/03/05 Given 1Result Comment: [12/07/2017] [id number] 2Result Comment: [12/21/2016] [facility]: [id number] 3Result Comment: [06/10/2015] #3 4Admin Note: per pt 5Admin Note: given in clinic Medications acarbose 25 mg oral tablet 1 tablet = 25 mg, By Mouth, 3 times a day, Take 1 tablet 3 times daily with meals. Add to 50mg dosefor total of 75mg 3 times daily. E11.65, # 270 tablet, 3 Refills, Maintenance, 07/15/20 12:23:00 EDT, Tablet, [facility], Partial... Start Date: 07/15/20 Status: [...] 30 tablet, 5 Refills, Maintenance, 07/22/20 8:03:00EDT, [facility], Partial fill [...] 11:32:00 EST, Aerosol, Route to Pharmacy Electronically, NCPDP_[id number], [facility], 160, cm, 04/29/19 10:47:00 EST, Height... Start Date: 04/29/19 Status: Ordered rifAXIMin 550 mg oral tablet 1 tablet = 550 mg, By Mouth, 3 times a day, # 42 tablet, 0 Refills, Maintenance, 07/14/20 13:37:00 EDT, Tablet, [facility], Partial fill upon patient request if the prescription is for a schedule II opioid drug., 158.02, cm, 07/06... Start Date: 07/14/20 Stop Date: 07/28/20 Status: Ordered Topamax 50 mg oral tablet 2 tablet = 100 mg, By Mouth, Daily at bedtime, # 60 tablet, 6 Refills, Maintenance, 08/04/20 11:44:00 EDT, Tablet, [facility], 158.02, cm, 07/06/20 6:49:00 EDT, [...] 6 Refills, Soft Stop, 08/04/20 11:37:00 EDT, [facility], Partial [...] 1resolved after weight loss 2chronic perst 3gyn 47553 5testing negative insulinoma 6likley dumping sydrome 7abnormal GTT ;sugar 36 two hours into test 8sees gi 9normal CT brain 10new 115.3 cm,right per ct scan recent;seeing gynecology soon;they will review 12vit d deficiency;correct 118280 14per endocrinology monitor 15correction refer GTT; 2 hour glucose 36 16refer GGT 17seeing ortho;pre op 18asma,ama neg/cerulopalsmain wnl,AAT wnl 19Negative hep A antibody positive hep B surface antibody negative antigen negative hep C, normal ferritin 20ukltrasound Procedures Procedure Date Related Diagnosis Body Site Status MRI of lumbar spine 1 05/14/20 Com pleted 11. Postoperative and mild degenerative changes are seen as described, without significant change from 12/02/2019. There is no definite nerve root impingement. Vital Signs Most recent to oldest [Reference Range]: 1 Height 158.02 cm (08/18/20 12:55 PM) Weight 82.9 kg (08/18/20 12:55 PM) Body Mass Index [18.5-24.99] 33.2 *>HHI* (08/18/20 12:55 PM) Social History Social History Type Response Smoking Status Never smoker entered on: 02/20/13 Sex
--- OUTSIDE RECORDS SUMMARY | 2022-08-17 08:40 | XMS_ITS | Continuity of Care Document ---
Author Name Unknown Organization [facility] Address [address] [place] [address]- Care Team Providers Care Special Education Itinerant Teacher Name Role Phone Eran Sue JOHNSON Primary Care Physician Encounter [facility] Date(s): 12/28/21 - 01/27/22 [facility] [address] [place] [address]- [place] Allergies, Adverse Reactions, Alerts Substance Reaction Severity Status Dust Allergy to pollen Active Pollen seasonal allergies respiratory symptoms Active Incruse Ellipta 1 lightheaded and migraine Active 1dizzy Immunizations Given and Recorded Vaccine Date Status Refusal Reason [id number] 12y+ bivalent booster vax 1 12/24/21 Given [...] vaccine, inactivated 02/08/11 Give n SARS-CoV-2 mRNA (rkaljkw-jnyk-[id number]) vax 05/01/21 Recorded zoster vaccine, inactivated 11/03/20 [...] tetanus-diphtheria toxoids (Td) 08/03/05 Given 1Result Comment: [id number] 2Result Comment: [id number] 3Result Comment: [12/07/2017] [address]-73 4Result Comment: [12/21/2016] [facility]: 81038-055-78 5Result Comment: [06/10/2015] #3 6Admin Note: per pt 7Admin Note: given in clinic Medications acarbose 25 mg oral tablet See Instructions, 1 tablet with 50 mg (total 75 mg) By Mouth before lunch, # 30 each, 11 Refills, Maintenance, 11/03/21 8:24:00 EDT, Tablet, [facility], 158, cm, 11/03/21 8:01:00EDT, Height, 71.5, kg, 09/01/21 16:21:00 EDT, Dry W... Start Date: 11/03/21 Status: Ordered acarbose 50 mg oral tablet See Instructions, 1 tablet with 25 mg (total 75 mg) By Mouth before lunch, # 30 each, 11 Refills, Maintenance, 11/03/21 8:23:00 EDT, Tablet, [facility], Partial fill upon patientrequest if the prescription is for a schedule II op... Start Date: 11/03/21 Status: Ordered acetaminophen 500 mg oral tablet 2 tablet = 1,000 mg, By Mouth, Every 6 hours, PRN as needed for fever, # 200 tablet, 0 Refills, Maintenance, 12/03/21 10:17:00 EDT, Tablet, [facility], Partial fill upon patient request if the prescription is for a schedule II opi... Start Date: 12/03/21 Status: Ordered Albuterol (Eqv-ProAir HFA) 90 mcg/inh inhalation aerosol 2 puffs, Inhalation, Every 4 hours, PRN NEEDED FOR WHEEZING, # 8.5 Gm, 1 Refills, Maintenance, 12/03/21 14:16:00 EDT, [facility], 18, INHALE TWO PUFFS EVERY 4 HOURS NEEDED FOR WHEEZING, 163, cm, 12/03/21 9:39:00 EDT, Height,... Start Date: 12/03/21 Status: Ordered calcium (as citrate)-vitamin D 315 mg-250 intl units oral tablet 2 tablet, By Mouth, 2 times a day, # 120 tablet, 6 Refills, Maintenance, 11/03/21 8:23:00 EDT, Tablet, [facility], 2 tablet By Mouth 2 times [...] Refills, Maintenance, 11/22/21 9:49:00 EDT, CR Capsule, [facility], Partial fill upon patient request if the prescription is for a schedule II opioid... Start Date: 11/22/21 Status: Ordered Emgality Prefilled Pen 120 mg/mL subcutaneous solution = 120 mg, Subcutaneous Injection, Once, Maintenance Dose, # 1 kit, 6 Refills, Soft Stop, 12/30/21 12:19:00 EDT, [facility], Partial fill upon patient request if the prescription is for a schedule II opioid drug., 163, cm, 12/24/21... Start Date: 12/30/21 Status: Ordered EPINEPHrine 1 mg/mL injectable solution 0.3 mL = 0.3 mg, Intramuscular, Once, # 1 mL, 1 Refills, Soft Stop, 03/08/21 15:07:00 EST, Solution, [facility], Partial fill [...] 11/15/21 10:56:00 EDT, Route to Pharmacy Electronically, [facility], 158, cm, 11/03/21 8:01:00 EDT, Height, 71.5, kg, 09/01/21 16:21:00 EDT, Mark Start Date: 11/15/21 Status: Ordered montelukast 10 mg oral tablet 1, tablet, By Mouth, Daily in PM, # 90 tablet, Refills 1, Tot. Refills 1, Maintenance, 11/14/21 11:28:00 EDT, Route to Pharmacy Electronically, [facility], 158, cm, 11/03/21 8:01:00 EDT, Height, 71.5, kg, 09/01/21 16:21:00 EDT, Start Date: 11/14/21 Status: Ordered Nurtec ODT 75 mg oral tablet, disintegrating See Instructions, TAKE ONE TABLET DAILY NEEDED FOR migraines, DO NOT EXCEED ONE TABLET IN 24 HOURS, # 8 tablet, 6 Refills, Maintenance, 12/28/21 15:14:00 EDT, [facility], 163,cm, 12/24/21 8:20:00 EDT, Height, 67, kg, 11/26/21... Start Date: 12/28/21 Status: Ordered Paxlovid 150 mg-100 mg (150 mg-100 mg Dose) oral tablet See Instructions, Take 3 tablets by mouth twice a day for 5 days GFR avove 60, # 30 tablet, 0 Refills, Maintenance, 01/18/22 8:00:00 EST, [facility], Partial [...] 11/23/21 19:57:00 EDT, Route to Pharmacy Electronically, NCPDP_[id number], [facility], 158, cm, 11/03/21 8:0... Start Date: [...] 5 Refills, Maintenance, 12/10/21 9:44:00 EDT, Tablet, [facility], [...] Active Vitamin D deficiency Confirmed Active 1gyn 89605 3testing negative insulinoma 4likley dumping sydrome 5abnormal GTT ;sugar 36 two hours into test 6sees gi 7normal CT brain 8new 9resolved after weight loss 10chronic perst 115.3 cm,right per ct scan recent;seeing gynecology soon;they will review 12vit d deficiency;correct [id number] 14per endocrinology monitor 15correction refer GTT; 2 hour glucose 36 16refer GGT 17seeing ortho;pre op 18asma,ama neg/cerulopalsmain wnl,AAT wnl 19Negative hep A antibody positive hep B surface antibody negative antigen negative hep C, normal ferritin 20ukltrasound Social History Social History Type Response Smoking Status Never smoker entered on: 02/20/13 Sex Patient Care team information Care Team Personnel Name: Caitlyn Mcgee RN Position: [facility] RN Member Role: Primary Care Nurse Name: Sue Barillas NP Position: [facility] PCO Associate Professional Member Role: PCP Address: Address: [address] [place] [address]- Name: Andria Guadalupe RN Position: [facility] RN Member Role: Primary Care Nurse Name: Liz Martin RN Position: [facility] RN Member Role: Primary Care Nurse Name: Ambreen Mcmahon RN Position: [facility] RN Member Role: Primary Care Nurse Name: Irais Grijalva RN Position: [facility] RN Member Role: Primary Care Nurse Name: Autumn Martinez RN Position: [facility] RN Member Role: Primary Care Nurse Name: Concha Mckinley RN Position: [facility] RN Member Role: Primary Care Nurse Name: Liz English RN Position: [facility] RN Member Role: Primary Care Nurse Name: Dora Williamson RN Position: [facility] RN Member Role: Primary Care Nurse Care Team Related Persons Name: KHUSHI CUNNINGHAM Address: home [address] [place] [address] Name: BHUPINDER VENEGAS Address: [address] [place] [address] Name: FELIPE FLORES Address: home [address] [place] [address] Name: ARNAV FLORES Address: home [address] [place] [address] Name: IRINA FLORES Address: [address] [place] [address] Name: RUSLAN FLORES Address: home [address] [place] [address] Name: KAISER PLUNKETT Address: home [address] [place] [address]
--- OUTSIDE RECORDS SUMMARY | 2022-08-17 08:40 | XMS_ITS | Continuity of Care Document ---
Author Name Unknown Organization [facility] Address [address] [place] [address]- Care Team Providers Care Educational Psychology Professor Name Role Phone Louisa LANDRUM, Taras Fuentes Primary Care Physician [phone] Encounter [facility] Date(s): 01/24/19 - 02/15/[address] [address]- [facility] Discharge Disposition: A-D/C Home Attending Physician: Sue Barillas NP Admitting Physician: Sue Barillas NP Referring Physician: Sue Barillas NP Allergies, Adverse [...] toxoids (Td) 08/03/05 Given 1Result Comment: [12/07/2017] [address]-71 2Result Comment: [12/21/2016] [facility]: [id number] 3Result Comment: [06/10/2015] #3 4Admin Note: per [...] Tot. Refills 11, Maintenance, DX:J45.909 ASTHMA FAX [id number], 12/21/17 11:58:59 EDT, Compound Start Date: 12/21/17 [...] 14:19:44 EST, Aerosol, Route to Pharmacy Electronically, NCPDP_[id number], [facility] Start Date: [...] 05/12/17 8:15:18, Aerosol, Route to Pharmacy Electronically, NCPDP_[id number], [facility]... Start Date: 05/12/17 Status: Ordered tiZANidine [...] perst 3folowed by mental health;recent hospitalization 4gyn 72206 6testing negative insulinoma 7likley dumping sydrome 8abnormal GTT ;sugar 36 two hours into test 9sees gi 10normal CT brain 11new 125.3 cm,right per ct scan recent;seeing gynecology soon;they will review 13vit d deficiency;correct 858507 15per endocrinology monitor 16correction refer GTT; 2 hour glucose 36 17refer GGT 18seeing ortho;pre op 19asma,ama neg/cerulopalsmain wnl,AAT wnl 20Negative hep A antibody positive hep B surface antibody negative antigen negative hep C, normal ferritin 21ukltrasound Social History Social History Type Response Smoking Status Never smoker entered on: 02/20/13 Sex
--- OUTSIDE RECORDS SUMMARY | 2022-08-17 08:40 | XMS_ITS | Continuity of Care Document ---
Author Name Unknown Organization [facility]do Address [address] [place] [address]- Care Team Providers Care Machine Maintenance Mechanic Name Role Phone Taras Jasso MD Primary Care Physician Encounter [facility] Date(s): 05/29/19 - 06/05/19 [facility] Adult [address] [place] [address]- [facility] Encounter Diagnosis Excessive thirst(Discharge Diagnosis) - 05/29/19 Dyspnea(Discharge Diagnosis) - 05/29/19 Attending Physician: Taras Jasso MD Allergies, Adverse [...] toxoids (Td) 08/03/05 Given 1Result Comment: [12/07/2017] [id number] 2Result Comment: [12/21/2016] [facility]: [id number] 3Result Comment: [06/10/2015] #3 4Admin Note: per [...] 05/17/19 12:02:00 EDT, Route to Pharmacy Electronically, [facility], 160, cm, 05/16/19 10:27:00 EDT, [...] 02/25/19 16:55:00 EST, Route to Pharmacy Electronically, [facility], 158, cm, 02/14/19 7:55:00 EST, Height, 61.9, kg, 02/12/19 10:17:00... Start Date: 02/25/19 Status: Ordered ProAir HFA 90 mcg/inh inhalation aerosol with adapter 2, puffs, Inhalation, Every 4 hours, PRN, # 8.5 Gm, Refills 2, Tot. Refills 2, Maintenance, 04/29/19 11:32:00 EST, Aerosol, Route to Pharmacy Electronically, NCPDP_[id number], [facility], 160, cm, 04/29/19 10:47:00 EST, Height... Start Date: 04/29/19 Status: Ordered rizatriptan 10 mg oral tablet 1 tablet = 10 mg, By Mouth, Daily, PRN for migraine headache, # 9 tablet, 5 Refills, Soft Stop, 06/04/19 15:37:00 EDT, Tablet, [facility], sumatriptan ineffective. If insurance says [...] 5 Refills, Maintenance, 05/30/19 11:48:00 EDT, Capsule, [facility], 160, cm, 05/29/19 13:36:00 EDT, [...] perst 3folowed by mental health;recent hospitalization 4gyn 059[address] 6testing negative insulinoma 7likley dumping sydrome 8abnormal GTT ;sugar 36 two hours into test 9sees gi 10normal CT brain 11new 125.3 cm,right per ct scan recent;seeing gynecology soon;they will review 13vit d deficiency;correct 490413 15per endocrinology monitor 16correction refer GTT; 2 hour glucose 36 17refer GGT 18seeing ortho;pre op 19asma,ama neg/cerulopalsmain wnl,AAT wnl 20Negative hep A antibody positive hep B surface antibody negative antigen negative hep C, normal ferritin 21ukltrasound Diagnosis Diagnosis Type Effective Dates Health Status Cl inical Service Informant Excessive thirst Discharge Diagnosis 05/29/19 Dyspnea Discharge Diagnosis 05/29/19 Social History Social History Type Response Smoking Status Never smoker entered on: 02/20/13 Sex
--- OUTSIDE RECORDS SUMMARY | 2022-08-17 08:40 | XMS_ITS | Continuity of Care Document ---
Author Name Unknown Organization [facility]enter [facility] Address [address] [place] [address]- Care Team Providers Care Information Assurance Name Role Phone Eran Sue JOHNSON Primary Care Physician Encounter [facility] Date(s): 06/03/22 - 07/03/22 [facility] [address] [place] [address]- [place] Allergies, Adverse Reactions, Alerts Substance Reaction Severity Status Dust Allergy to pollen Active Pollen seasonal allergies respiratory symptoms Active Incruse Ellipta 1 lightheaded and migraine Active 1dizzy Immunizations Given and Recorded Vaccine Date Status Refusal Reason [id number] 12y+ bivalent booster vax 1 12/24/21 Given [...] vaccine, inactivated 02/08/11 Give n SARS-CoV-2 mRNA (kmfdxur-ywdo-rabca) vax 05/01/21 Recorded zoster vaccine, inactivated 11/03/20 [...] tetanus-diphtheria toxoids (Td) 08/03/05 Given 1Result Comment: [address]-7 2Result Comment: 46247-397-35 3Result Comment: [12/07/2017] [address]-78 4Result Comment: [12/21/2016] [facility]: [id number] 5Result Comment: [06/10/2015] #3 6Admin Note: per pt 7Admin Note: given in clinic Medications acetaminophen 500 mg oral tablet 2 tablet = 1,000 mg, By Mouth, Every 6 hours, PRN as needed for fever, # 200 tablet, 0 Refills, Maintenance, 12/03/21 10:17:00 EDT, Tablet, [facility], Partial fill upon patient request if the prescription is for a schedule II opi... Start Date: 12/03/21 Status: Ordered Albuterol (Eqv-ProAir HFA) 90 mcg/inh inhalation aerosol 2 puffs, Inhalation, Every 4 hours, PRN NEEDED FOR WHEEZING, # 8.5 Gm, 5 Refills, Maintenance, 03/09/22 11:21:00 EST, [facility], 17, INHALE TWO PUFFS BY [...] 6 Refills, Maintenance, 11/03/21 8:23:00 EDT, Tablet, [facility], 2 tablet By Mouth 2 times a day, 158, cm, 11/03/21 8:01:00 EDT,Height, 71.5, kg, 09/01/21 16:21:00 EDT, Dry Weight Start Date: 11/03/21 Status: Ordered Carafate 1 gm/10 ml oral suspension 10 mL = 1 Gm, By Mouth, 3 times a day before meals and bedtime, # 1,200 mL, 5 Refills, Maintenance,04/29/22 9:16:00 EST, [id number], Partial fill upon patient request if the prescription is for a schedule II opioid drug., 158, cm, 02... Start Date: 04/29/22 Status: Ordered cetirizine 10 mg oral tablet 1 tablet, By Mouth, Daily, # 30 tablet, 5 Refills, Maintenance, 06/03/22 11:40:00 EDT, [facility], 158, cm, 05/25/22 13:59:00 EDT, [...] Refills, Maintenance, 05/30/22 7:57:00 EDT, CR Capsule, [facility], Partial fill upon patient request if the prescription is for a schedule II opioid... Start Date: 05/30/22 Status: Ordered Emgality Prefilled Pen 120 mg/mL subcutaneous solution = 120 mg, Subcutaneous Injection, Once, Maintenance Dose, # 3 kit, 2 Refills, Soft Stop, 03/17/22 8:08:00 EST, [facility], requesting 3 month supply for [...] 6 Refills, Maintenance, 01/31/22 14:05:00 EST, Suspension, [facility], Partial fill upon patient request if the prescription is for a schedule II opioid drug., 163, cm, 01/18... Start Date: 01/31/22 Stop Date: 08/29/22 Status: Ordered Fiber Choice 1.5 g oral tablet, chewable 1 tablet = 1.5 Gm, Chew, 3 times a day, # 90 tablet, 0 Refills, Maintenance, 04/09/22 15:16:00 EST,Chew Tablet, [facility][id number], Partial fill upon patient request if the [...] Refills, Maintenance, 04/09/22 15:16:00 EST, REC Powder, [facility] #[id number], Partial fill upon patient request if the prescription is for a schedule II opioid drug., 17 Gm... Start Date: 04/09/22 Status: Ordered montelukast 10 mg oral tablet 1, tablet, By Mouth, Daily in PM, # 90 tablet, Refills 1, Tot. Refills 1, Maintenance, 11/14/21 11:28:00 EDT, Route to Pharmacy Electronically, [facility], 158, cm, 11/03/21 8:01:00 EDT, Height, 71.5, kg, 09/01/21 16:21:00 EDT, . Start Date: 11/14/21 Status: Ordered Nurtec ODT 75 mg oral tablet, disintegrating See Instructions, TAKE ONE TABLET DAILY NEEDED FOR migraines, DO NOT EXCEED ONE TABLET IN 24 HOURS, # 8 tablet, 6 Refills, Maintenance, 12/28/21 15:14:00 EDT, [facility], 163,cm, 12/24/21 8:20:00 EDT, Height, [...] each, 0 Refills, Maintenance, 04/06/22 15:29:00 EST, [facility] #[id number], Partial fi... Start Date: 04/06/22 Status: Ordered Reclast = 5 mg, IV Infusion, Once, 0 Refills, Maintenance, 11/06/20 10:24:00 EDT, administered at [facility] 10/2020 Start Date: 11/06/20 Status: Ordered Stool Softener + Stimulant Laxative 50 mg-8.6 mg oral capsule 1 capsule, By Mouth, Daily in PM, # 60 capsule, 0 Refills, Maintenance, 04/09/22 15:17:00 EST, Capsule, [facility] #[id number], Partial fill upon patient request if the prescription is for a schedule II opioid drug., 1 capsule By Mouth Daily in P... Start Date: 04/09/22 Status: Ordered Symbicort 160mcg/4.5mcg Inhaler 2, puffs, Inhalation, 2 times a day, rinse mouth and throat after use, # 10.2 Gm, Refills 2, Tot. Refills 2, Maintenance, 06/10/22 20:48:00 EDT, Route to Pharmacy Electronically, NCPDP_[id number], [facility], 158, cm, 06/07/22 10:... Start [...] Active Vitamin D deficiency Confirmed Active 1gyn [address]2351 3testing negative insulinoma 4likley dumping sydrome 5abnormal GTT ;sugar 36 two hours into test 6normal CT brain 7new 8resolved after weight loss 9chronic perst 105.3 cm,right per ct scan recent;seeing gynecology soon;they will review 11vit d deficiency;correct [id number] 13per endocrinology monitor 14correction refer GTT; 2 [...] Care Nurse Name: Sue Barillas NP Position: [facility] PCO Associate Professional Member Role: PCP Address: Address: [address] [place], [place] [address] Name: Andria Guadalupe RN Position: [facility] SN RN Member Role: Primary Care Nurse Name: Liz Martin RN Position: [facility] RN Member Role: Primary Care Nurse Name: Ambreen Mcmahon RN Position: [facility] RN Member Role: Primary Care Nurse Name: Irais Grijalva RN Position: [facility] RN Member Role: Primary Care Nurse Name: Autumn Martinez RN Position: [facility] SN RN Member Role: Primary Care Nurse Name: Liz English RN Position: [facility] RN Member Role: Primary Care Nurse Name: Dora Williamson RN Position: [facility] RN Member Role: Primary Care Nurse Care Team Related Persons Name: KHUSHI CUNNINGHAM Address: home [address] [place] [address] Name: BHUPINDER VENEGAS Address: home [address] [place] [address] Name: FELIPE FLROES Address: home [address] [place] [address] Name: ARNAV FLORES Address: home [address] [place] [address] Name: IRINA FLORES Address: home [address] [place] [address] Name: RUSLAN FLORES Address: [address] [place] [address] Name: KAISER PLUNKETT Address: home [address] [place] [address]
--- OUTSIDE RECORDS SUMMARY | 2022-08-17 08:41 | XMS_ITS | Continuity of Care Document ---
Author Name Unknown Organization [facility] Address [address] [place] [address]- Care Team Providers Care Tuna Purse Seiner Name Role Phone Taras Jasso MD Primary Care Physician Encounter [facility] Date(s): 09/24/19 - 10/01/19 [facility] [address] [place] [address]- [facility] Encounter Diagnosis Cervical radiculopathy(Discharge Diagnosis) - 09/24/19 Attending Physician: Taras Jasso MD Allergies, Adverse [...] toxoids (Td) 08/03/05 Given 1Result Comment: [12/07/2017] [address]-75 2Result Comment: [12/21/2016] [facility]: [id number] 3Result Comment: [06/10/2015] #3 4Admin Note: per [...] 07/07/2012:36:00 EDT, Aerosol, Route to Pharmacy Electronically, NCPDP_[id number], [facility], 160, cm, [...] 05/17/19 12:02:00 EDT, Route to Pharmacy Electronically, [facility], 160, cm, 05/16/19 10:27:00 EDT, Height, 62.9, kg, 05/12/19 9:1... Start Date: 05/17/19 Status: Ordered famotidine 40 mg oral tablet 1/2 tablet, By Mouth, Daily at bedtime, famotidine 20mg backordered. please take 1/2 tab daily, # 30 each, 1 Refills, Maintenance, 07/30/19 10:21:00 EDT, [facility], 160, cm, [...] 11:32:00 EST, Aerosol, Route to Pharmacy Electronically, NCPDP_[id number], [facility], [...] 07/08/19 13:36:00 EDT, Route to Pharmacy Electronically, NCPDP_[id number], [facility], 160, cm, 07/08/19 13:03:00 ED... Start Date: 07/08/19 Status: Ordered Topamax 50 mg oral tablet 1 tablet = 50 mg, By Mouth, Daily at bedtime, after weaning off zonegran, take 50mg at HS for 2 weeks then increase to 100mg at HS, # 30 tablet, 6 Refills, Maintenance, 07/16/19 10:51:00 EDT, Tablet,[facility], weaning zonegran o... Start Date: 07/16/19 [...] perst 3folowed by mental health;recent hospitalization 4gyn 12905 6testing negative insulinoma 7likley dumping sydrome 8abnormal GTT ;sugar 36 two hours into test 9sees gi 10normal CT brain 11new 125.3 cm,right per ct scan recent;seeing gynecology soon;they will review 13vit d deficiency;correct [id number] 15per endocrinology monitor 16correction refer GTT; 2 hour glucose 36 17refer GGT 18seeing ortho;pre op 19asma,ama neg/cerulopalsmain wnl,AAT wnl 20Negative hep A antibody positive hep B surface antibody negative antigen negative hep C, normal ferritin 21ukltrasound Diagnosis Diagnosis Type Effective Dates Health Status Clinical Service Informant Cervical radiculopathy Discharge Diagnosis 09/24/19 Vital Signs Most recent to oldest [Reference Range]: 1 Height 160.02 cm (09/24/19 3:31 PM) Weight 66.9 kg (09/24/19 3:31 PM) Oxygen Saturation [94-100 %] 98 % (09/24/19 3:31 PM) Pulse Rate [55-90 bpm] 86 bpm (09/24/19 3:31 PM) Body Mass Index [18.5-24.99] 26.13 *H* (09/24/19 3:31 PM) Blood Pressure [90-138/55-84 mm Hg] 102/ 74mm Hg (09/24/19 3:31 PM) Respiratory Rate [16-30 br/min] 16 br/mi n (09/24/19 3:31 PM) Temperature [96.8-100.4 DegF] 98.3 DegF (09/24/19 3:31 PM) Blood pressure sites Arm, left (09/24/19 3:31 PM) Temperature Route Oral (09/24/19 3:31 PM) Social History Social History Type Response Smoking Status Never smoker entered on: 02/20/13 Sex
--- OUTSIDE RECORDS SUMMARY | 2022-08-17 08:41 | XMS_ITS | Continuity of Care Document ---
Author Name Unknown Organization [facility] Address [address] [place] [phone]- Care Team Providers Care Career Information Specialist Name Role Phone Eran AIR FILLER, Sue Dahl Primary Care Physician Encounter 09/08/21 - 10/11/21 [facility] [address] [place] [phone]- Discharge Disposition: CLIENT NO LONGER REQUIRES SKILLED CARE Allergies, Adverse Reactions, Alerts Substance Reaction Severity Status Dust Allergy to pollen Active Pollen seasonal allergies respiratory symptoms Active Incruse Ellipta 1 lightheaded and migraine Active 1dizzy Immunizations Given and Recorded Vaccine Date Status Refusal Reason SARS-CoV-2 mRNA (vojhevh-xapb-ikeup) vax 05/01/21 Recorded influenza virus vaccine, inactivated [...] toxoids (Td) 08/03/05 Given 1Result Comment: [12/07/2017] [address]-35 2Result Comment: [12/21/2016] [facility]: 45501-543-52 3Result Comment: [06/10/2015] #3 4Admin Note: per pt 5Admin Note: given in clinic Medications acarbose 25 mg oral tablet 1 tablet = 25 mg, By Mouth, 3 times a day, Take 1 tab (plus 1 50mg tab), 3 times daily with meals.,# 270 tablet, 3 Refills, Maintenance, 02/03/21 8:34:00 EST, Tablet, [facility], Partial fill upon patient request if the prescript... Start Date: 02/03/21 Status: Ordered acarbose 50 mg oral tablet 1 tablet = 50 mg, By Mouth, 3 times a day, Take 1 tab (plus 1 25mg tab), 3 times daily with meals.,# 270 tablet, 3 Refills, Maintenance, 02/03/21 8:34:00 EST, Tablet, [facility], Partial fill [...] constipation, 08/23/21 8:22:00 EDT, Route to Pharmacy Electronically,[facility], Partial fill upon patient... Start Date: 08/23/21 Status: Ordered Dexilant 60 mg oral delayed release capsule 1 capsule = 60 mg, By Mouth, 2 times a day, 30 min before meal, # 60 capsule, 5 Refills, Maintenance, 04/16/21 14:29:00 EST, CR Capsule, [facility], Partial fill upon patient request if the prescription is for a schedule II opioi... Start Date: 04/16/21 Status: Ordered Emgality Prefilled Pen 120 mg/mL subcutaneous solution = 120 mg, Subcutaneous Injection, Once, Maintenance Dose, # 1 kit, 6 Refills, Soft Stop, 06/29/21 10:09:00 EDT, [facility], Partial fill upon patient request if the prescription is for a schedule II opioid drug., 158, cm, 06/29/21... Start Date: 06/29/21 Status: Ordered EPINEPHrine 1 mg/mL injectable solution 0.3 mL = 0.3 mg, Intramuscular, Once, # 1 mL, 1 Refills, Soft Stop, 03/08/21 15:07:00 EST, Solution, [facility], Partial fill upon [...] 09/17/21 14:13:00 EDT, Route to Pharmacy Electronically, [facility], 158, cm, 09/16/21 9:43:00 EDT, Height, 71.5, kg, 09/01/21 16:21:00 EDT, D... Start Date: 09/17/21 Status: Ordered meclizine 25 mg oral tablet See Instructions, PRN for dizziness, Take 1 tablet every 8 hours as needed for dizziness, # 15 tablet, 0 Refills, Maintenance, 11/03/20 7:49:00 EDT, Tablet, [facility], Partial fill upon patient request if the prescription is for... Start Date: 11/03/20 Status: Ordered montelukast 10 mg oral tablet 10 mg, 1, tablet, By Mouth, Daily in PM, # 90 tablet, Refills 1, Tot. Refills 1, Maintenance, 04/23/21 12:32:00 EST, Route to Pharmacy Electronically, [facility], 158, cm, 04/09/21 8:13:00 [...] 6 Refills, Maintenance, 12/10/20 12:36:00 EDT,DIS Tablet, [facility], has t... Start Date: [...] 1resolved after weight loss 2chronic perst 3gyn 74582 5testing negative insulinoma 6likley dumping sydrome 7abnormal GTT ;sugar 36 two hours into test 8sees gi 9normal CT brain 10new 115.3 cm,right per ct scan recent;seeing gynecology soon;they will review 12vit d deficiency;correct [id number] 14per endocrinology monitor 15correction refer GTT; 2 hour glucose 36 16refer GGT 17seeing ortho;pre op 18asma,ama neg/cerulopalsmain wnl,AAT wnl 19Negative hep A antibody positive hep B surface antibody negative antigen negative hep C, normal ferritin 20ukltrasound Social History Social History Type Response Smoking Status Never smoker entered on: 02/20/13 Sex
--- OUTSIDE RECORDS SUMMARY | 2022-08-17 08:41 | XMS_ITS | Continuity of Care Document ---
Author Name Unknown Organization [facility] Address [address] [place] [address]- Care Team Providers Care Train Engineer Name Role Phone Louisa LANDRUM, Taras Fuentes Primary Care Physician [facility]counter [facility] Date[facility]s): 11/18/19 - 12/18/19 [facility] [address] [place] [address]- [facility] Allergies, Adverse Reactions, Alerts Substance [...] toxoids (Td) 08/03/05 Given 1Result Comment: [12/07/2017] [address]-13 2Result Comment: [12/21/2016] [facility]: 12957-787-60 3Result Comment: [06/10/2015] #3 4Admin Note: per [...] 07/07/2012:36:00 EDT, Aerosol, Route to Pharmacy Electronically, [id number]_[id number], [facility], 160, cm, 07/08/19 [...] Refills, Maintenance, 11/15/19 10:29:00 EDT, REC Powder, [facility], 240 mL By Mouth Every [...] 11:32:00 EST, Aerosol, Route to Pharmacy Electronically, [id number]_[id number], [facility], 160, [...] 07/08/19 13:36:00 EDT, Route to Pharmacy Electronically, [id number]_[id number], [facility], 160, cm, 07/08/19 13:03:00 ED... Start Date: 07/08/19 Status: Ordered Topamax 50 mg oral tablet 2 tablet = 100 mg, By Mouth, Daily at bedtime, # 60 tablet, 6 Refills, Maintenance, 11/04/19 11:08:00 EDT, Tablet, [facility], weaning zonegran [...] Refills, Soft Stop, 11/25/19 21:26:00 EDT, Tablet, [facility], 160.02, cm, 11/15/19 [...] perst 3folowed by mental health;recent hospitalization 4gyn 91488 6testing negative insulinoma 7likley dumping sydrome 8abnormal GTT ;sugar 36 two hours into test 9sees gi 10normal CT brain 11new 125.3 cm,right per ct scan recent;seeing gynecology soon;they will review 13vit d deficiency;correct 817979 15per endocrinology monitor 16correction refer GTT; 2 hour glucose 36 17refer GGT 18seeing ortho;pre op 19asma,ama neg/cerulopalsmain wnl,AAT wnl 20Negative hep A antibody positive hep B surface antibody negative antigen negative hep C, normal ferritin 21ukltrasound Social History Social History Type Response Smoking Status Never smoker entered on: 02/20/13 Sex
--- OUTSIDE RECORDS SUMMARY | 2022-08-17 08:41 | XMS_ITS | Continuity of Care Document ---
Author Name Unknown Organization [facility] Address [address] [place] [address]- Care Team Providers Care Diagnostic Technologist Name Role Phone Eran RESEARCH MICROBIOLOGIST, Sue Dahl Primary Care Physician [phone] Encounter [facility] Date(s): 01/18/22 - 01/25/22 [facility] [address] [place] [address]- Encounter Diagnosis COVID-19 virus infection(Discharge Diagnosis) - 01/18/22 Attending Physician: Paola Tripp NP Allergies, Adverse Reactions, Alerts Substance Reaction Severity Status Dust Allergy to pollen Active Pollen seasonal allergies respiratory symptoms Active Incruse Ellipta 1 lightheaded and migraine Active 1dizzy Immunizations Given and Recorded Vaccine Date Status Refusal Reason [id number] 12y+ bivalent booster vax 1 12/24/21 Given [...] vaccine, inactivated 02/08/11 Give n SARS-CoV-2 mRNA (ejefbps-njnx-bapzy) vax 05/01/21 Recorded zoster vaccine, inactivated 11/03/20 [...] tetanus-diphtheria toxoids (Td) 08/03/05 Given 1Result Comment: [id number] 2Result Comment: [id number] 3Result Comment: [12/07/2017] [address]-28 4Result Comment: [12/21/2016] [facility]: 69805-235-42 5Result Comment: [06/10/2015] #3 6Admin Note: per pt 7Admin Note: given in clinic Medications acarbose 25 mg oral tablet See Instructions, 1 tablet with 50 mg (total 75 mg) By Mouth before lunch, # 30 each, 11 Refills, Maintenance, 11/03/21 8:24:00 EDT, Tablet, [facility], 158, cm, 11/03/21 8:01:00EDT, Height, 71.5, kg, 09/01/21 16:21:00 EDT, Dry W... Start Date: 11/03/21 Status: Ordered acarbose 50 mg oral tablet See Instructions, 1 tablet with 25 mg (total 75 mg) By Mouth before lunch, # 30 each, 11 Refills, Maintenance, 11/03/21 8:23:00 EDT, Tablet, [facility], Partial fill upon patientrequest if the prescription is for a schedule II op... Start Date: 11/03/21 Status: Ordered acetaminophen 500 mg oral tablet 2 tablet = 1,000 mg, By Mouth, Every 6 hours, PRN as needed for fever, # 200 tablet, 0 Refills, Maintenance, 12/03/21 10:17:00 EDT, Tablet, [facility], Partial fill upon patient request if the prescription is for a schedule II opi... Start Date: 12/03/21 Status: Ordered Albuterol (Eqv-ProAir HFA) 90 mcg/inh inhalation aerosol 2 puffs, Inhalation, Every 4 hours, PRN NEEDED FOR WHEEZING, # 8.5 Gm, 1 Refills, Maintenance, 12/03/21 14:16:00 EDT, [facility], 18, INHALE TWO PUFFS EVERY 4 HOURS NEEDED FOR WHEEZING, 163, cm, 12/03/21 9:39:00 EDT, Height,... Start Date: 12/03/21 Status: Ordered calcium (as citrate)-vitamin D 315 mg-250 intl units oral tablet 2 tablet, By Mouth, 2 times a day, # 120 tablet, 6 Refills, Maintenance, 11/03/21 8:23:00 EDT, Tablet, [facility], 2 tablet By Mouth [...] Refills, Maintenance, 11/22/21 9:49:00 EDT, CR Capsule, [facility], Partial fill upon patient request if the prescription is for a schedule II opioid... Start Date: 11/22/21 Status: Ordered Emgality Prefilled Pen 120 mg/mL subcutaneous solution = 120 mg, Subcutaneous Injection, Once, Maintenance Dose, # 1 kit, 6 Refills, Soft Stop, 12/30/21 12:19:00 EDT, [facility], [...] 11/15/21 10:56:00 EDT, Route to Pharmacy Electronically, [facility], 158, cm, 11/03/21 8:01:00 EDT, Height, 71.5, kg, 09/01/21 16:21:00 EDT, Mark Start Date: 11/15/21 Status: Ordered montelukast 10 mg oral tablet 1, tablet, By Mouth, Daily in PM, # 90 tablet, Refills 1, Tot. Refills 1, Maintenance, 11/14/21 11:28:00 EDT, Route to Pharmacy Electronically, [facility], 158, cm, 11/03/21 8:01:00 EDT, Height, 71.5, kg, 09/01/21 16:21:00 EDT, Start Date: 11/14/21 Status: Ordered Nurtec ODT 75 mg oral tablet, disintegrating See Instructions, TAKE ONE TABLET DAILY NEEDED FOR migraines, DO NOT EXCEED ONE TABLET IN 24 HOURS, # 8 tablet, 6 Refills, Maintenance, 12/28/21 15:14:00 EDT, [facility], 163,cm, 12/24/21 8:20:00 EDT, Height, 67, kg, 11/26/21... Start Date: 12/28/21 Status: Ordered Paxlovid 150 mg-100 mg (150 mg-100 mg Dose) oral tablet See Instructions, Take 3 tablets by mouth twice a day for 5 days GFR avove 60, # 30 tablet, 0 Refills, Maintenance, 01/18/22 8:00:00 EST, [facility], [...] 11/23/21 19:57:00 EDT, Route to Pharmacy Electronically, NCPDP_[id number], [facility], 158, cm, 11/03/21 8:0... [...] 5 Refills, Maintenance, 12/10/21 9:44:00 EDT, Tablet, [facility] [...] Active Vitamin D deficiency Confirmed Active 1gyn 78100 3testing negative insulinoma 4likley dumping sydrome 5abnormal GTT ;sugar 36 two hours into test 6sees gi 7normal CT brain 8new 9resolved after weight loss 10chronic perst 115.3 cm,right per ct scan recent;seeing gynecology soon;they will review 12vit d deficiency;correct 031080 14per endocrinology monitor 15correction refer GTT; 2 hour glucose 36 16refer GGT 17seeing ortho;pre op 18asma,ama neg/cerulopalsmain wnl,AAT wnl 19Negative hep A antibody positive hep B surface antibody negative antigen negative hep C, normal ferritin 20ukltrasound Diagnosis Diagnosis Type Effective Dates Health Status Cl inical Service Informant COVID-19 virus infection Discharge Diagnosis 01/18/22 Vital Signs Most recent to oldest [Reference Range]: 1 Height 163 cm (01/18/22 7:58 AM) Social History Social History Type Response Smoking Status Never smoker entered on: 02/20/13 Sex Patient Care team information Care Team Personnel Name: Caitlyn Mcgee RN Position: [facility] RN Member Role: Primary Care Nurse Name: Sue Barillas NP Position: [facility] PCO Associate Professional Member Role: PCP Address: Address: [address] [place] [address] Name: Andria Guadalupe RN Position: [facility] SN RN Member Role: Primary Care Nurse Name: Liz Martin RN Position: [facility] RN Member Role: Primary Care Nurse Name: Ambreen Mcmahon RN Position: [facility] RN Member Role: Primary Care Nurse Name: Irais Grijalva RN Position: [facility] RN Member Role: Primary Care Nurse Name: Autumn Martinez RN Position: [facility] SN RN Member Role: Primary Care Nurse Name: Concha Mckinley RN Position: [facility] RN Member Role: Primary Care Nurse Name: Liz English RN Position: [facility] RN Member Role: Primary Care Nurse Name: Dora Williamson RN Position: [facility] RN Member Role: Primary Care Nurse Care Team Related Persons Name: KHUSHI CUNNINGHAM Address: home [address] [place] [address] Name: BHUPINDER VENEGAS Address: [address] [place] [address] Name: FELIPE FLORES Address: home [address] [place] [address] Name: ARNAV FLORES Address: home [address] [place], [place] Name: IRINA FLORES Address: home [address] [place] [address] Name: RUSLAN FLORES Address: home [address] [place] [address] Name: KAISER PLUNKETT Address: home [address] [place] [address]
--- OUTSIDE RECORDS SUMMARY | 2022-08-17 08:41 | XMS_ITS | Continuity of Care Document ---
Author Name Unknown Organization [facility] Address [address] [facility], [address], [address] [place] [address]- Care Team Providers Care Computer Tech Name Role Phone Louisa LANDRUM, Taras Fuentes Primary Care Physician [facility]counter [facility] Date(s): 09/11/20 - 10/11/20 [facility] [address] [facility], [address]rd Floor, [address] [place] [id number]- Allergies, Adverse Reactions, Alerts Substance Reaction Severity [...] toxoids (Td) 08/03/05 Given 1Result Comment: [12/07/2017] [address]-31 2Result Comment: [12/21/2016] [facility]: 15360-217-86 3Result Comment: [06/10/2015] #3 4Admin Note: per pt 5Admin Note: given in clinic Medications acarbose 50 mg oral tablet 1 tablet = 50 mg, By Mouth, 3 times a day, Take 3 times daily with meals. E11.65, # 90 tablet, 5 Refills, Maintenance, 07/13/20 16:29:00 EDT, Tablet, [facility], Partial fill upon patient [...] 0 Refills, Maintenance, 07/03/19 13:59:00 EDT, Solution, [facility], 160, cm, 05/29/19 13:36:00 EDT, Height, 56.5, kg, 03... Start Date: 07/03/19 Status: Ordered amitriptyline 50 mg oral tablet 1 tablet = 50 mg, By Mouth, Daily at bedtime, # 30 tablet, 5 Refills, Maintenance, 07/22/20 8:03:00EDT, [facility], Partial fill upon patient request if the prescription is for a schedule II opioid drug., 158.02, cm, 07/06/20 6:4... Start Date: 07/22/20 Status: Ordered Baqsimi One Pack 3 mg nasal powder See Instructions, 3 mg Once intrasnasally for severe hypoglycemia, # 2 each, 3 Refills, Soft Stop, 08/28/20 10:36:00 EDT, [facility], Partial fill upon patient [...] 1 Refills, Soft Stop, 11/20/19 11:59:00 EDT, [facility], 160.02, cm, 11/15/19 10:05:00 [...] 02/25/19 16:55:00 EST, Route to Pharmacy Electronically, [facility], 158, cm, 02/14/19 7:55:00 EST, Height, 61.9, kg, 02/12/19 10:17:00... Start Date: 02/25/19 Status: Ordered montelukast 10 mg oral tablet 10 mg, 1, tablet, By Mouth, Daily in PM, # 90 tablet, Refills 3, Tot. Refills 3, Maintenance, 08/15/19 16:21:00 EDT, Route to Pharmacy Electronically, [facility], 160, cm, 08/15/19 13:45:00 [...] 0 Refills, Maintenance, 08/27/20 9:45:00 EDT, Capsule, [facility], Partial fill upon patient request if the prescription is for a schedule II opioid drug., 158.02, cm, 08/27/20 9:2... Start Date: 08/27/20 Stop Date: 09/26/20 Status: Ordered ProAir HFA 90 mcg/inh inhalation aerosol with adapter 2, puffs, Inhalation, Every 4 hours, PRN, # 8.5 Gm, Refills 2, Tot. Refills 2, Maintenance, 04/29/19 11:32:00 EST, Aerosol, Route to Pharmacy Electronically, NCPDP_[id number], [facility], 160, cm, 04/29/19 10:47:00 EST, Height... Start Date: 04/29/19 Status: Ordered Symbicort 160mcg/4.5mcg Inhaler 2, puffs, Inhalation, 2 times a day, Refills 0, Maintenance, 08/27/20 9:43:00 EDT, Aerosol Start Date: 08/27/20 Status: Ordered Topamax 50 mg oral tablet 2 tablet = 100 mg, By Mouth, Daily at bedtime, # 60 tablet, 6 Refills, Maintenance, 08/04/20 11:44:00 EDT, Tablet, [facility], 158.02, cm, 07/06/20 6:49:00 [...] 6 Refills, Soft Stop, 08/04/20 11:37:00 EDT, [facility], Partial fill upon patient [...] 1resolved after weight loss 2chronic perst 3gyn [address] 5testing negative insulinoma 6likley dumping sydrome 7abnormal GTT ;sugar 36 two hours into test 8sees gi 9normal CT brain 10new 115.3 cm,right per ct scan recent;seeing gynecology soon;they will review 12vit d deficiency;correct 095627 14per endocrinology monitor 15correction refer GTT; 2 hour glucose 36 16refer GGT 17seeing ortho;pre op 18asma,ama neg/cerulopalsmain wnl,AAT wnl 19Negative hep A antibody positive hep B surface antibody negative antigen negative hep C, normal ferritin 20ukltrasound Social History Social History Type Response Smoking Status Never smoker entered on: 02/20/13 Sex
--- OUTSIDE RECORDS SUMMARY | 2022-08-17 08:41 | XMS_ITS | Continuity of Care Document ---
Author Name Unknown Organization [facility] Address Unknown Care Team Providers Care Cryptologist Name Role Phone Eran Sue JOHNSON Primary Care Physician [phone] [facility]counter [facility] Date(s): 05/24/21 - 06/23/21 [facility] Attending Physician: Konrad Curtis Admitting Physician: Konrad Curtis Referring Physician: AdmtrKonrad Allergies, Adverse Reactions, Alerts Substance Reaction Severity Status Dust Allergy to pollen Active Pollen seasonal allergies respiratory symptoms Active Incruse Ellipta 1 lightheaded and migraine Active 1dizzy Immunizations Given and Recorded Vaccine Date Status Refusal Reason SARS-CoV-2 mRNA (itvudhn-mpke-agjwb) vax 05/01/21 Recorded influenza virus vaccine, inactivated [...] toxoids (Td) 08/03/05 Given 1Result Comment: [12/07/2017] [id number] 2Result Comment: [12/21/2016] [facility]: 55459-771-26 3Result Comment: [06/10/2015] #3 4Admin Note: per [...] 3 Refills, Maintenance, 02/03/21 8:34:00 EST, Tablet, [facility], Partial fill upon patient request if the prescript... Start Date: 02/03/21 Status: Ordered acarbose 50 mg oral tablet 1 tablet = 50 mg, By Mouth, 3 times a day, Take 1 tab (plus 1 25mg tab), 3 times daily with meals.,# 270 tablet, 3 Refills, Maintenance, 02/03/21 8:34:00 EST, Tablet, [facility], Partial fill [...] Refills, Maintenance, 03/03/21 16:42:00 EST, REC Powder, [facility], Partial fill upon [...] per PCP, # 30 mL, 1 Refills, [facility], 158, cm, 04/09/21 8:13:00 EST, Height, 80.6, kg, 03/08/21 12:18:00 EST, Dry Weight Start Date: 04/30/21 Status: Ordered Dexilant 60 mg oral delayed release capsule 1 capsule = 60 mg, By Mouth, 2 times a day, 30 min before meal, # 60 capsule, 5 Refills, Maintenance, 04/16/21 14:29:00 EST, CR Capsule, [facility], Partial fill upon patient request if the prescription is for a schedule II opioi... Start Date: 04/16/21 Status: Ordered Emgality Prefilled Pen 120 mg/mL subcutaneous solution = 240 mg, Subcutaneous Injection, Once, Loading Dose, # 2 kit, 0 Refills, Soft Stop, 03/16/21 16:05:00 EST, [facility], Partial fill [...] 1 Refills, Maintenance, 04/06/21 9:45:00 EST, Solution, [facility], Partial fill upon patient request if the prescription is for a schedule II opioid drug.... Start Date: 04/06/21 Status: Ordered loratadine 10 mg oral tablet 10 mg, 1, tablet, By Mouth, Daily, # 90 tablet, Refills 0, Tot. Refills 0, Maintenance, 05/24/21 11:12:00 EDT, Route to Pharmacy Electronically, [facility], 158, cm, 05/14/21 7:52:00 EST, Height, 80.6, kg, 03/08/21 12:18:00 EST, D... Start Date: 05/24/21 Status: Ordered meclizine 25 mg oral tablet See Instructions, PRN for dizziness, Take 1 tablet every 8 hours as needed for dizziness, # 15 tablet, 0 Refills, Maintenance, 11/03/20 7:49:00 EDT, Tablet, [facility], Partial fill upon patient request if the prescription is for... Start Date: 11/03/20 Status: Ordered montelukast 10 mg oral tablet 10 mg, 1, tablet, By Mouth, Daily in PM, # 90 tablet, Refills 1, Tot. Refills 1, Maintenance, 04/23/21 12:32:00 EST, Route to Pharmacy Electronically, [facility], 158, cm, 04/09/21 8:13:00 [...] 6 Refills, Maintenance, 12/10/20 12:36:00 EDT,DIS Tablet, [facility], has t... Start Date: 12/10/20 Stop Date: 07/08/21 Status: Ordered [place] 0.65% nasal spray 2 sprays, Nares, Both, 4 times a day, # 1 each, 3 Refills, Maintenance, 05/14/21 11:40:00 EST, [facility], Partial fill [...] 19:25:00 EST, Aerosol, Route to Pharmacy Electronically, NCPDP_[id number], [facility], 158, cm, 05/06/21 6:58:00 [...] Gm, Refills 11, Route to Pharmacy Electronically, NCPDP_[id number], [facility], 158.02, cm, 11/13/20 8:38:00 [...] 1resolved after weight loss 2chronic perst 3gyn 88142 5testing negative insulinoma 6likley dumping sydrome 7abnormal GTT ;sugar 36 two hours into test 8sees gi 9normal CT brain 10new 115.3 cm,right per ct scan recent;seeing gynecology soon;they will review 12vit d deficiency;correct 199361 14per endocrinology monitor 15correction refer GTT; 2 hour glucose 36 16refer GGT 17seeing ortho;pre op 18asma,ama neg/cerulopalsmain wnl,AAT wnl 19Negative hep A antibody positive hep B surface antibody negative antigen negative hep C, normal ferritin 20ukltrasound Social History Social History Type Response Smoking Status Never smoker entered on: 02/20/13 Sex
--- OUTSIDE RECORDS SUMMARY | 2022-08-17 08:41 | XMS_ITS | Continuity of Care Document ---
Author Name Unknown Organization [facility] Address [address] [place] [address] sandi, [address] [place] [address]- Care Team Providers Care Clinical Massage Therapist Name Role Phone Louisa LANDRUM, Taras Fuentes Primary Care Physician [phone] Encounter [facility] [place] Date(s): 08/27/19 - 09/03/19 [facility] [address] [place] [address] Drive, [address] [place] [address]- [employer] Attending Physician: Zachery Lo MD Allergies, Adverse [...] toxoids (Td) 08/03/05 Given 1Result Comment: [12/07/2017] [address]-31 2Result Comment: [12/21/2016] [facility]: 73068-019-02 3Result Comment: [06/10/2015] #3 4Admin Note: per [...] 0 Refills, Maintenance, 07/03/19 13:59:00 EDT, Solution, [facility], 160, cm, 05/29/19 13:36:00 EDT, Height, 56.5, kg, 03... Start Date: 07/03/19 Status: Ordered albuterol CFC free 90 mcg/inh inhalation aerosol 2, puffs, Inhalation, 4 times a day, PRN, # 25 Gm, Refills 0, Tot. Refills 0, Maintenance, 07/07/2012:36:00 EDT, Aerosol, Route to Pharmacy Electronically, NCPDP_[id number], [facility], 160, cm, 07/08/19 13:03:00 EDT, Height, [...] 60 capsule, 5 Refills, Maintenance, 07/30/19 10:21:00EDT, [facility], 160, cm, 07/08/19 13:03:00 EDT, Height, 56.5, kg, 05/29/19 13:36:00 EDT, Dry Weight Start Date: 07/30/19 Status: Ordered eletriptan 40 mg oral tablet 1 tablet = 40 mg, By Mouth, Daily, PRN for migraine headache, # 9 tablet, 5 Refills, Soft Stop, 07/16/19 9:23:00 EDT, Tablet, [facility], she has tried sumatriptan and rizatriptan. if insurance still declines let me know which I c... Start Date: 07/16/19 Stop Date: 01/12/20 Status: Ordered famotidine 20 mg oral tablet 20 mg, 1, tablet, By Mouth, Daily at bedtime, # 30 tablet, Refills 5, Tot. Refills 5, Maintenance, 05/17/19 12:02:00 EDT, Route to Pharmacy Electronically, [facility], 160, cm, 05/16/19 10:27:00 EDT, Height, 62.9, kg, 05/12/19 9:1... Start Date: 05/17/19 Status: Ordered famotidine 40 mg oral tablet 1/2 tablet, By Mouth, Daily at bedtime, famotidine 20mg backordered. please take 1/2 tab daily, # 30 each, 1 Refills, Maintenance, 07/30/19 10:21:00 EDT, [facility], 160, cm, 07/08/19 13:03:00 EDT, Height, [...] 08/15/19 16:21:00 EDT, Route to Pharmacy Electronically, [facility], 160, cm, 08/15/19 13:45:00 EDT, Height, 56.5, kg, 05/29/19 13:36:00... Start Date: 08/15/19 Status: Ordered ProAir HFA 90 mcg/inh inhalation aerosol with adapter 2, puffs, Inhalation, Every 4 hours, PRN, # 8.5 Gm, Refills 2, Tot. Refills 2, Maintenance, 04/29/19 11:32:00 EST, Aerosol, Route to Pharmacy Electronically, NCPDP_[id number], [facility], 160, cm, 04/29/19 10:47:00 [...] 07/08/19 13:36:00 EDT, Route to Pharmacy Electronically, NCPDP_[id number], [facility], 160, cm, 07/08/19 13:03:00 ED... Start Date: 07/08/19 Status: Ordered Topamax 50 mg oral tablet 1 tablet = 50 mg, By Mouth, Daily at bedtime, after weaning off zonegran, take 50mg at HS for 2 weeks then increase to 100mg at HS, # 30 tablet, 6 Refills, Maintenance, 07/16/19 10:51:00 EDT, Tablet,[facility], weaning zonegran o... Start Date: 07/16/19 [...] perst 3folowed by mental health;recent hospitalization 4gyn 41940 6testing negative insulinoma 7likley dumping sydrome 8abnormal GTT ;sugar 36 two hours into test 9sees gi 10normal CT brain 11new 125.3 cm,right per ct scan recent;seeing gynecology soon;they will review 13vit d deficiency;correct 111080 15per endocrinology monitor 16correction refer GTT; 2 hour glucose 36 17refer GGT 18seeing ortho;pre op 19asma,ama neg/cerulopalsmain wnl,AAT wnl 20Negative hep A antibody positive hep B surface antibody negative antigen negative hep C, normal ferritin 21ukltrasound Vital Signs Most recent to oldest [Reference Range]: 1 Height 160 cm (08/26/19 9:04 AM) Weight 67.5 kg (08/26/19 9:04 AM) Body Mass Index [18.5-24.99] 26.37 *H* (08/26/19 9:04 AM) Social History Social History Type Response Smoking Status Never smoker entered on: 02/20/13 Sex
--- OUTSIDE RECORDS SUMMARY | 2022-08-17 08:41 | XMS_ITS | Continuity of Care Document ---
Author Name Unknown Organization [facility] y Address [address] [place] [address] sandi, [address] [place] [address]- Care Team Providers Care Deputy Chief Counsel Name Role Phone Eran ROLL CHANGER, Sue Dahl Primary Care Physician Encounter [facility] Date(s): 04/26/22 - 05/26/22 [facility] [address] [place] [address] Drive, [address] [place] [address]- Allergies, Adverse Reactions, Alerts Substance Reaction Severity Status Dust Allergy to pollen Active Pollen seasonal allergies respiratory symptoms Active Incruse Ellipta 1 lightheaded and migraine Active 1dizzy Immunizations Given and Recorded Vaccine Date Status Refusal Reason [id number] 12y+ bivalent booster vax 1 12/24/21 Given [...] vaccine, inactivated 02/08/11 Give n SARS-CoV-2 mRNA ([id number]) vax 05/01/21 Recorded zoster vaccine, inactivated 11/03/20 [...] tetanus-diphtheria toxoids (Td) 08/03/05 Given 1Result Comment: [address]-2 2Result Comment: [id number] 3Result Comment: [12/07/2017] [address]-73 4Result Comment: [12/21/2016] [facility]: 72355-822-14 5Result Comment: [06/10/2015] #3 6Admin Note: per [...] Gm, 5 Refills, Maintenance, 03/09/22 11:21:00 EST, [facility], 17, INHALE TWO PUFFS BY MOUTH [...] 1,200 mL, 5 Refills, Maintenance,04/29/22 9:16:00 EST, [facility] #[id number], Partial fill upon patient request if the [...] 2 Refills, Soft Stop, 03/17/22 8:08:00 EST, [facility], requesting 3 month supply for cheaper [...] 6 Refills, Maintenance, 01/31/22 14:05:00 EST, Suspension, [facility], Partial fill upon patient request if the prescription is for a schedule II opioid drug., 163, cm, 01/18... Start Date: 01/31/22 Stop Date: 08/29/22 Status: Ordered Fiber Choice 1.5 g oral tablet, chewable 1 tablet = 1.5 Gm, Chew, 3 times a day, # 90 tablet, 0 Refills, Maintenance, 04/09/22 15:16:00 EST,Chew Tablet, [facility] #[id number], Partial fill upon patient request if the [...] Refills, Maintenance, 04/09/22 15:16:00 EST, REC Powder, [facility] #[id number], Partial fill upon patient request if the [...] tablet, 6 Refills, Maintenance, 12/28/21 15:14:00 EDT, [facility], 163,cm, 12/24/21 8:20:00 EDT, Height, 67, [...] each, 0 Refills, Maintenance, 04/06/22 15:29:00 EST, [facility] #[id number], Partial fi... Start Date: 04/06/22 Status: Ordered Reclast = 5 mg, IV Infusion, Once, 0 Refills, Maintenance, 11/06/20 10:24:00 EDT, administered at [facility] 10/2020 Start Date: 11/06/20 Status: Ordered Stool Softener + Stimulant Laxative 50 mg-8.6 mg oral capsule 1 capsule, By Mouth, Daily in PM, # 60 capsule, 0 Refills, Maintenance, 04/09/22 15:17:00 EST, Capsule, [facility] #[id number], Partial fill upon patient request if the prescription is for a schedule II opioid drug., 1 capsule By Mouth Daily in P... Start Date: 04/09/22 Status: Ordered Symbicort 160mcg/4.5mcg Inhaler 2, puffs, Inhalation, 2 times a day, rinse mouth and throat after use, # 10.2 Gm, Refills 3, Tot. Refills 3, Maintenance, 11/23/21 19:57:00 EDT, Route to Pharmacy Electronically, NCPDP_[id number], [facility], 158, cm, [...] Active Vitamin D deficiency Confirmed Active 1gyn 12320 3testing negative insulinoma 4likley dumping sydrome 5abnormal GTT ;sugar 36 two hours into test 6normal CT brain 7new 8resolved after weight loss 9chronic perst 105.3 cm,right per ct scan recent;seeing gynecology soon;they will review 11vit d deficiency;correct 951983 13per endocrinology monitor 14correction refer GTT; 2 [...] Nurse Name: Sue Barillas NP Position: [facility] PCO Associate Professional Member Role: PCP Address: Address: [address] [place] [id number] Name: Andria Guadalupe RN Position: [facility] SN RN Member Role: Primary Care Nurse Name: Liz Martin RN Position: S RN Member Role: Primary Care Nurse Name: Ambreen Mcmahon RN Position: [facility] RN Member Role: Primary Care Nurse Name: Irais Grijalva RN Position: [facility] RN Member Role: Primary Care Nurse Name: Autumn Martinez RN Position: [facility] SN RN Member Role: Primary Care Nurse Name: Liz English RN Position: [facility] RN Member Role: Primary Care Nurse Name: Dora Williamson RN Position: [facility] RN Member Role: Primary Care Nurse Care Team Related Persons Name: KHUSHI CUNNINGHAM Address: home [address] [place] [address] Name: BHUPINDER VENEGAS Address: home [address] [place] [address] Name: FELIPE FLORES Address: home [address] [place] [address] Name: ARNAV FLORES Address: home [address] [place] [address] Name: IRINA FLORES Address: [address] [place] [address] Name: RUSLAN FLORES Address: home [address] [place] [address] Name: KAISER PLUNKETT Address: home [address] [place] [address]
--- OUTSIDE RECORDS SUMMARY | 2022-08-17 08:41 | XMS_ITS | Continuity of Care Document ---
Author Name Unknown Organization [facility] Address [address] [place] [address]- Care Team Providers Care Aerospace Quality Engineer Name Role Phone Louisa LANDRUM, Taras Fuentes Primary Care Physician [phone] Encounter [facility] Date(s): 04/01/21 - 05/01/21 [facility] [address] [place] [address] Allergies, Adverse Reactions, Alerts Substance Reaction [...] toxoids (Td) 08/03/05 Given 1Result Comment: [12/07/2017] [address]-00 2Result Comment: [12/21/2016] [facility]: 44381-383-51 3Result Comment: [06/10/2015] #3 4Admin Note: per [...] 3 Refills, Maintenance, 02/03/21 8:34:00 EST, Tablet, [facility], Partial fill upon patient request if the prescript... Start Date: 02/03/21 Status: Ordered acarbose 50 mg oral tablet 1 tablet = 50 mg, By Mouth, 3 times a day, Take 1 tab (plus 1 25mg tab), 3 times daily with meals.,# 270 tablet, 3 Refills, Maintenance, 02/03/21 8:34:00 EST, Tablet, [facility], Partial fill upon patient request if the prescript... Start Date: 02/03/21 Status: Ordered Baqsimi One Pack 3 mg nasal powder See Instructions, 3 mg Once intrasnasally for severe hypoglycemia, # 2 each, 3 Refills, Soft Stop, 08/28/20 10:36:00 EDT, [facility], Partial fill upon patient request [...] 5 Refills, Maintenance, 11/06/20 10:28:00 EDT, Tablet, [facility], Replaces loratidine, 158.02, cm, 11/06/20 10:04:00 EDT, Height,67, kg, 09/11/19 11:20:00 EDT, Dry Weight Start Date: 11/06/20 Status: Ordered cholestyramine 4 gm/5 gm oral powder for reconstitution 1 pack/packet, By Mouth, Daily, # 30 pack/packet, 5 Refills, Maintenance, 03/03/21 16:42:00 EST, REC Powder, [facility], Partial fill upon patient request [...] per PCP, # 30 mL, 1 Refills, [facility], 158, cm, 04/09/21 8:13:00 EST, Height, 80.6, kg, 03/08/21 12:18:00 EST, Dry Weight Start Date: 04/30/21 Status: Ordered Dexilant 60 mg oral delayed release capsule 1 capsule = 60 mg, By Mouth, 2 times a day, 30 min before meal, # 60 capsule, 5 Refills, Maintenance, 04/16/21 14:29:00 EST, CR Capsule, [facility], Partial fill upon patient request if the prescription is for a schedule II opioi... Start Date: 04/16/21 Status: Ordered Emgality Prefilled Pen 120 mg/mL subcutaneous solution = 240 mg, Subcutaneous Injection, Once, Loading Dose, # 2 kit, 0 Refills, Soft Stop, 03/16/21 16:05:00 EST, [facility], Partial fill upon patient request if the prescription is for a schedule II opioid drug., 158, cm, 03/11/21 9:1... Start Date: 03/16/21 Status: Ordered Emgality Prefilled Pen 120 mg/mL subcutaneous solution = 120 mg, Subcutaneous Injection, Once, Maintenance Dose, # 1 kit, 5 Refills, Soft Stop, 03/16/21 16:05:00 EST, [facility], Partial fill upon patient request if the prescription is for a schedule II opioid drug., 158, cm, 03/11/21... Start Date: 03/16/21 Status: Ordered EPINEPHrine 1 mg/mL injectable solution 0.3 mL = 0.3 mg, Intramuscular, Once, # 1 mL, 1 Refills, Soft Stop, 03/08/21 15:07:00 EST, Solution, [facility], Partial fill upon patient request [...] 1 Refills, Maintenance, 04/06/21 9:45:00 EST, Solution, [facility], Partial fill upon patient request if the prescription is for a schedule II opioid drug.... Start Date: 04/06/21 Status: Ordered Macrobid macrocrystals-monohydrate 100 mg oral capsule 1 capsule = 100 mg, By Mouth, 2 times a day, for 7 days, # 14 capsule, 0 Refills, Acute 05/03/21 17:01:00 EST, 04/26/21 17:01:00 EST, Capsule, [facility], Partial fill upon patient request if the prescription is for a schedule II... Start Date: 04/26/21 Stop Date: 05/03/21 Status: Ordered meclizine 25 mg oral tablet See Instructions, PRN for dizziness, Take 1 tablet every 8 hours as needed for dizziness, # 15 tablet, 0 Refills, Maintenance, 11/03/20 7:49:00 EDT, Tablet, [facility], Partial fill upon patient request if the prescription is for... Start Date: 11/03/20 Status: Ordered montelukast 10 mg oral tablet 10 mg, 1, tablet, By Mouth, Daily in PM, # 90 tablet, Refills 1, Tot. Refills 1, Maintenance, 04/23/21 12:32:00 EST, Route to Pharmacy Electronically, [facility], 158, cm, 04/09/21 8:13:00 EST, [...] 6 Refills, Maintenance, 12/10/20 12:36:00 EDT,DIS Tablet, [facility], has t... Start Date: 12/10/20 Stop Date: 07/08/21 Status: Ordered Pitkin 0.65% nasal spray 2 sprays, Nares, Both, 4 times a day, # 1 each, 0 Refills, Maintenance, 10/30/20 11:34:00 EDT, [facility], Partial fill upon patient request if the prescription is for a scheduleII opioid drug., 2 sprays Nares, Both 4 times a day... Start Date: 10/30/20 Status: Ordered ProAir HFA 90 mcg/inh inhalation aerosol with adapter 2, puffs, Inhalation, Every 4 hours, PRN, # 8.5 Gm, Refills 1, Tot. Refills 1, Maintenance, 01/06/21 8:26:00 EDT, Aerosol, Route to Pharmacy Electronically, NCPDP_[id number], [facility], 158.02, cm, 01/06/21 8:03:00 EDT, Height, 6... Start Date: 01/06/21 Status: Ordered Readi-Cat 2 oral suspension See Instructions, Follow direction for CT, # 2 each, 0 Refills, Maintenance, 04/08/21 16:08:00 EST,[facility], Partial fill [...] Gm, Refills 11, Route to Pharmacy Electronically, NCPDP_[id number], [facility], 158.02, cm, 11/13/20 8:38:00 EDT, [...] 1resolved after weight loss 2chronic perst 3gyn 33141 5testing negative insulinoma 6likley dumping sydrome 7abnormal GTT ;sugar 36 two hours into test 8sees gi 9normal CT brain 10new 115.3 cm,right per ct scan recent;seeing gynecology soon;they will review 12vit d deficiency;correct 009208 14per endocrinology monitor 15correction refer GTT; 2 hour glucose 36 16refer GGT 17seeing ortho;pre op 18asma,ama neg/cerulopalsmain wnl,AAT wnl 19Negative hep A antibody positive hep B surface antibody negative antigen negative hep C, normal ferritin 20ukltrasound Social History Social History Type Response Smoking Status Never smoker entered on: 02/20/13 Sex
--- OUTSIDE RECORDS SUMMARY | 2022-08-17 08:41 | XMS_ITS | Continuity of Care Document ---
Author Name Unknown Organization [facility] Address [address] [place] [address]- Care Team Providers Care Military Logistics Specialist Name Role Phone Louisa LANDRUM, Taras Fuentes Primary Care Physician Encounter [facility] Date(s): 05/12/20 - 06/11/20 [facility] [address] [place] [address]- Allergies, Adverse Reactions, Alerts Substance Reaction Severity [...] toxoids (Td) 08/03/05 Given 1Result Comment: [12/07/2017] [address]-94 2Result Comment: [12/21/2016] [facility]: 30588-737-36 3Result Comment: [06/10/2015] #3 4Admin Note: per [...] 0 Refills, Maintenance, 07/03/19 13:59:00 EDT, Solution, [facility], 160, cm, 05/29/19 [...] 60 capsule, 5 Refills, Maintenance, 05/07/20 15:54:00EST, [facility], 160.02, cm, 05/01/20 [...] 1 Refills, Soft Stop, 11/20/19 11:59:00 EDT, [facility], 160.02, cm, 11/15/19 [...] 08/15/19 16:21:00 EDT, Route to Pharmacy Electronically, [facility], 160, cm, 08/15/19 13:45:00 EDT, Height, 56.5, kg, 05/29/19 13:36:00... Start Date: 08/15/19 Status: Ordered ProAir HFA 90 mcg/inh inhalation aerosol with adapter 2, puffs, Inhalation, Every 4 hours, PRN, # 8.5 Gm, Refills 2, Tot. Refills 2, Maintenance, 04/29/19 11:32:00 EST, Aerosol, Route to Pharmacy Electronically, NCPDP_[id number], [facility], 160, cm, 04/29/19 10:47:00 EST, Height... Start Date: 04/29/19 Status: Ordered Topamax 50 mg oral tablet See Instructions, take 1 tab in am and 2 tab at bedtime. If AM dose causes bad sedation, add to HS dose., # 90 tablet, 6 Refills, Maintenance, 03/12/20 11:09:00 EST, Tablet, [facility], weaning zonegran off by 25mg every 2 days t... Start Date: 03/12/20 Status: Ordered ubrogepant 100 mg oral tablet 1 tablet = 100 mg, By Mouth, Daily, # 10 tablet, 6 Refills, Soft Stop, 03/12/20 11:04:00 EST, [facility], Partial [...] perst 3folowed by mental health;recent hospitalization 4gyn [address]90 6testing negative insulinoma 7likley dumping sydrome 8abnormal GTT ;sugar 36 two hours into test 9sees gi 10normal CT brain 11new 125.3 cm,right per ct scan recent;seeing gynecology soon;they will review 13vit d deficiency;correct 964341 15per endocrinology monitor 16correction refer GTT; 2 hour glucose 36 17refer GGT 18seeing ortho;pre op 19asma,ama neg/cerulopalsmain wnl,AAT wnl 20Negative hep A antibody positive hep B surface antibody negative antigen negative hep C, normal ferritin 21ukltrasound Social History Social History Type Response Smoking Status Never smoker entered on: 02/20/13 Sex
--- OUTSIDE RECORDS SUMMARY | 2022-08-17 08:41 | XMS_ITS | Continuity of Care Document ---
Author Name Unknown Organization [facility] Address [address] [place] [address]- Care Team Providers Care Political Cartoonist Name Role Phone Eran Sue JOHNSON Primary Care Physician [phone] Encounter [facility](s): 10/05/21 - 11/04/21 [facility] [address] [place] [address] Attending Physician: Konrad Curtis Admitting Physician: AdmtrKonrad Referring Physician: Admtr, Ar8 Allergies, Adverse Reactions, Alerts Substance Reaction Severity Status Dust Allergy to pollen Active Pollen seasonal allergies respiratory symptoms Active Incruse Ellipta 1 lightheaded and migraine Active 1dizzy Immunizations Given and Recorded Vaccine Date Status Refusal Reason SARS-CoV-2 mRNA ([id number]) vax 05/01/21 Recorded influenza virus vaccine, inactivated [...] toxoids (Td) 08/03/05 Given 1Result Comment: [12/07/2017] [address]-59 2Result Comment: [12/21/2016] [facility]: 93504-440-76 3Result Comment: [06/10/2015] #3 4Admin Note: per pt 5Admin Note: given in clinic Medications acarbose 25 mg oral tablet See Instructions, 1 tablet with 50 mg (total 75 mg) By Mouth before lunch, # 30 each, 11 Refills, Maintenance, 11/03/21 8:24:00 EDT, Tablet, [facility], 158, cm, 11/03/21 8:01:00EDT, Height, 71.5, kg, 09/01/21 16:21:00 EDT, Dry W... Start Date: 11/03/21 Status: Ordered acarbose 50 mg oral tablet See Instructions, 1 tablet with 25 mg (total 75 mg) By Mouth before lunch, # 30 each, 11 Refills, Maintenance, 11/03/21 8:23:00 EDT, Tablet, [facility], Partial fill upon patientrequest if the prescription is for a schedule II op... Start Date: 11/03/21 Status: Ordered calcium (as citrate)-vitamin D 315 mg-250 intl units oral tablet 2 tablet, By Mouth, 2 times a day, # 120 tablet, 6 Refills, Maintenance, 11/03/21 8:23:00 EDT, Tablet, [facility], 2 tablet By [...] constipation, 08/23/21 8:22:00 EDT, Route to Pharmacy Electronically,[facility], Partial fill upon patient... Start Date: 08/23/21 Status: Ordered Dexilant 60 mg oral delayed release capsule 1 capsule = 60 mg, By Mouth, 2 times a day, 30 min before meal, # 60 capsule, 5 Refills, Maintenance, 04/16/21 14:29:00 EST, CR Capsule, [facility], Partial fill upon patient request if the prescription is for a schedule II opioi... Start Date: 04/16/21 Status: Ordered Emgality Prefilled Pen 120 mg/mL subcutaneous solution = 120 mg, Subcutaneous Injection, Once, Maintenance Dose, # 1 kit, 6 Refills, Soft Stop, 06/29/21 10:09:00 EDT, [facility], Partial fill upon patient request if the prescription is for a schedule II opioid drug., 158, cm, 06/29/21... Start Date: 06/29/21 Status: Ordered EPINEPHrine 1 mg/mL injectable solution 0.3 mL = 0.3 mg, Intramuscular, Once, # 1 mL, 1 Refills, Soft Stop, 03/08/21 15:07:00 EST, Solution, [facility], Partial fill upon [...] 09/17/21 14:13:00 EDT, Route to Pharmacy Electronically, [facility], 158, cm, 09/16/21 9:43:00 EDT, Height, 71.5, kg, 09/01/21 16:21:00 EDT, D... Start Date: 09/17/21 Status: Ordered meclizine 25 mg oral tablet See Instructions, PRN for dizziness, Take 1 tablet every 8 hours as needed for dizziness, # 15 tablet, 0 Refills, Maintenance, 11/03/20 7:49:00 EDT, Tablet, [facility], Partial fill upon patient request if the prescription is for... Start Date: 11/03/20 Status: Ordered montelukast 10 mg oral tablet 10 mg, 1, tablet, By Mouth, Daily in PM, # 90 tablet, Refills 1, Tot. Refills 1, Maintenance, 04/23/21 12:32:00 EST, Route to Pharmacy Electronically, [facility], 158, cm, 04/09/21 [...] Refills, Maintenance, 12/10/20 12:36:00 EDT,DIS Tablet, [facility], has t... Start [...] 1resolved after weight loss 2chronic perst 3gyn 69444 5testing negative insulinoma 6likley dumping sydrome 7abnormal GTT ;sugar 36 two hours into test 8sees gi 9normal CT brain 10new 115.3 cm,right per ct scan recent;seeing gynecology soon;they will review 12vit d deficiency;correct 219597 14per endocrinology monitor 15correction refer GTT; 2 hour glucose 36 16refer GGT 17seeing ortho;pre op 18asma,ama neg/cerulopalsmain wnl,AAT wnl 19Negative hep A antibody positive hep B surface antibody negative antigen negative hep C, normal ferritin 20ukltrasound Social History Social History Type Response Smoking Status Never smoker entered on: 02/20/13 Sex Care Team Personnel Name: Eran JOHNSON, Sue Dahl Address: [address] [place] [phone]
--- OUTSIDE RECORDS SUMMARY | 2022-08-17 08:41 | XMS_ITS | Continuity of Care Document ---
Author Name Unknown Organization [facility] ter Address [address] [place] [address]- Care Team Providers Care Hydraulic Elevator Constructor Name Role Phone Eran OFFICE ASSISTANT RECEPTIONIST, Sue Dahl Primary Care Physician [phone] Encounter [facility] Date(s): 04/26/22 - 05/27/[address] [address] Attending Physician: Santiago Malin Admitting Physician: Santiago Malin Referring Physician: Santiago Malin Allergies, Adverse Reactions, Alerts Substance Reaction Severity Status Dust Allergy to pollen Active Pollen seasonal allergies respiratory symptoms Active Incruse Ellipta 1 lightheaded and migraine Active 1dizzy Immunizations Given and Recorded Vaccine Date Status Refusal Reason [id number] 12y+ bivalent booster vax 1 12/24/21 Given [...] vaccine, inactivated 02/08/11 Give n SARS-CoV-2 mRNA (wxtwwjj-wnxy-ekalk) vax 05/01/21 Recorded zoster vaccine, inactivated 11/03/20 [...] tetanus-diphtheria toxoids (Td) 08/03/05 Given 1Result Comment: [id number] 2Result Comment: [id number] 3Result Comment: [12/07/2017] [address]-97 4Result Comment: [12/21/2016] [facility]: 28468-381-89 5Result Comment: [06/10/2015] #3 6Admin Note: per pt 7Admin Note: given in clinic Medications acetaminophen 500 mg oral tablet 2 tablet = 1,000 mg, By Mouth, Every 6 hours, PRN as needed for fever, # 200 tablet, 0 Refills, Maintenance, 12/03/21 10:17:00 EDT, Tablet, [facility], Partial fill upon patient request if the prescription is for a schedule II opi... Start Date: 12/03/21 Status: Ordered Albuterol (Eqv-ProAir HFA) 90 mcg/inh inhalation aerosol 2 puffs, Inhalation, Every 4 hours, PRN NEEDED FOR WHEEZING, # 8.5 Gm, 5 Refills, Maintenance, 03/09/22 11:21:00 EST, [facility], 17, INHALE TWO PUFFS BY [...] 6 Refills, Maintenance, 11/03/21 8:23:00 EDT, Tablet, [facility], 2 tablet By Mouth 2 times a day, 158, cm, 11/03/21 8:01:00 EDT,Height, 71.5, kg, 09/01/21 16:21:00 EDT, Dry Weight Start Date: 11/03/21 Status: Ordered Carafate 1 gm/10 ml oral suspension 10 mL = 1 Gm, By Mouth, 3 times a day before meals and bedtime, # 1,200 mL, 5 Refills, Maintenance,04/29/22 9:16:00 EST, [facility][id number], Partial fill upon patient request if the [...] Refills, Maintenance, 11/22/21 9:49:00 EDT, CR Capsule, [facility], Partial fill upon patient request if the prescription is for a schedule II opioid... Start Date: 11/22/21 Status: Ordered Emgality Prefilled Pen 120 mg/mL subcutaneous solution = 120 mg, Subcutaneous Injection, Once, Maintenance Dose, # 3 kit, 2 Refills, Soft Stop, 03/17/22 8:08:00 EST, [facility], requesting 3 month supply for cheaper martinez. with 2 refills, 163, cm, 03/15/22 10:13:00 EST, Height, 68.1,... Start Date: 03/17/22 Status: Ordered EPINEPHrine 1 mg/mL injectable solution 0.3 mL = 0.3 mg, Intramuscular, Once, # 1 mL, 1 Refills, Soft Stop, 03/08/21 15:07:00 EST, Solution, [facility], Partial fill upon patient request if the prescription is for a schedule II opioid drug., 158, cm, 03/08/21 12:18:00 E... Start Date: 03/08/21 Status: Ordered famotidine 40 mg oral tablet 1 tablet = 40 mg, By Mouth, 2 times a day, # 60 tablet, 6 Refills, Maintenance, 01/31/22 14:05:00 EST, Suspension, [facility], Partial fill upon patient request if the prescription is for a schedule II opioid drug., 163, cm, 01/18... Start Date: 01/31/22 Stop Date: 08/29/22 Status: Ordered Fiber Choice 1.5 g oral tablet, chewable 1 tablet = 1.5 Gm, Chew, 3 times a day, # 90 tablet, 0 Refills, Maintenance, 04/09/22 15:16:00 EST,Chew Tablet, [id number], Partial fill upon patient request if the [...] Refills, Maintenance, 04/09/22 15:16:00 EST, REC Powder, [facility] #[id number], Partial fill upon patient request if the prescription is for a schedule II opioid drug., 17 Gm... Start Date: 04/09/22 Status: Ordered montelukast 10 mg oral tablet 1, tablet, By Mouth, Daily in PM, # 90 tablet, Refills 1, Tot. Refills 1, Maintenance, 11/14/21 11:28:00 EDT, Route to Pharmacy Electronically, [facility], 158, cm, 11/03/21 8:01:00 EDT, Height, 71.5, kg, 09/01/21 16:21:00 EDT, Start Date: 11/14/21 Status: Ordered Nurtec ODT 75 mg oral tablet, disintegrating See Instructions, TAKE ONE TABLET DAILY NEEDED FOR migraines, DO NOT EXCEED ONE TABLET IN 24 HOURS, # 8 tablet, 6 Refills, Maintenance, 12/28/21 15:14:00 EDT, [facility], 163,cm, 12/24/21 8:20:00 EDT, Height, [...] each, 0 Refills, Maintenance, 04/06/22 15:29:00 EST, [id number], Partial fi... Start Date: 04/06/22 Status: Ordered Reclast = 5 mg, IV Infusion, Once, 0 Refills, Maintenance, 11/06/20 10:24:00 EDT, administered at [facility] 10/2020 Start Date: 11/06/20 Status: Ordered Stool Softener + Stimulant Laxative 50 mg-8.6 mg oral capsule 1 capsule, By Mouth, Daily in PM, # 60 capsule, 0 Refills, Maintenance, 04/09/22 15:17:00 EST, Capsule, [id number], Partial fill upon patient request if the prescription is for a schedule II opioid drug., 1 capsule By Mouth Daily in P... Start Date: 04/09/22 Status: Ordered Symbicort 160mcg/4.5mcg Inhaler 2, puffs, Inhalation, 2 times a day, rinse mouth and throat after use, # 10.2 Gm, Refills 3, Tot. Refills 3, Maintenance, 11/23/21 19:57:00 EDT, Route to Pharmacy Electronically, NCPDP_[id number], [facility], 158, cm, 11/03/21 8:0... Start [...] 5 Refills, Maintenance, 12/10/21 9:44:00 EDT, Tablet, [facility], Partial fill upon patient request [...] Active Vitamin D deficiency Confirmed Active 1gyn 46900 3testing negative insulinoma 4likley dumping sydrome 5abnormal GTT ;sugar 36 two hours into test 6normal CT brain 7new 8resolved after weight loss 9chronic perst 105.3 cm,right per ct scan recent;seeing gynecology soon;they will review 11vit d deficiency;correct 303657 13per endocrinology monitor 14correction refer GTT; 2 hour glucose 36 15refer GGT 16seeing ortho;pre op 17asma,ama neg/cerulopalsmain wnl,AAT wnl 18Negative hep A antibody positive hep B surface antibody negative antigen negative hep C, normal ferritin 19ukltrasound Social History Social History Type Response Smoking Status Never smoker entered on: 12/18/13 Sex Patient Care team information Care Team Personnel Name: Caitlyn Mcgee RN Position: [facility] RN Member Role: Primary Care Nurse Name: Sue Barillas NP Position: [facility] PCO Associate Professional Member Role: PCP Address: Address: [address] [place] [address]- Name: Andria Guadalupe RN Position: [facility] SN RN [...] Persons Name: KHUSHI CUNNINGHAM Address: home [address] [place] [address] Name: BHUPINDER VENEGAS Address: [address] [place] [address] Name: FELIPE FLORES Address: home [address] [place] [address] Name: ARNAV FLORES Address: home [address] [place] [address] Name: IRINA FLORES Address: home [address] [place] [address] Name: RUSLAN FLORES Address: home [address] [place] [address] Name: KAISER PLUNKETT Address: home [address] [place] [address]
--- NOTE | 2022-08-17 08:42 | PHA.MEDREC ---
Pharmacy Consult ? Medication Reconciliation Pharmacy has completed the medication reconciliation. Reviewed med rec done by nursing
--- OUTSIDE RECORDS SUMMARY | 2022-08-17 08:42 | XMS_ITS | Continuity of Care Document ---
Author Name Unknown Organization [facility] ter Address [address] [place] [address]- Care Team Providers Care Dog Beautician Name Role Phone Louisa LANDRUM, Taras Fuentes Primary Care Physician [phone] Encounter [facility] Date(s): 09/08/20 - 10/17/[address] [address]- Attending Physician: Micah Truong MD Referring Physician: Micah Truong MD Allergies, Adverse Reactions, Alerts Substance Reaction [...] toxoids (Td) 08/03/05 Given 1Result Comment: [12/07/2017] [address]-20 2Result Comment: [12/21/2016] [facility]: 90266-896-10 3Result Comment: [06/10/2015] #3 4Admin Note: per pt 5Admin Note: given in clinic Medications acarbose 50 mg oral tablet 1 tablet = 50 mg, By Mouth, 3 times a day, Take 3 times daily with meals. E11.65, # 90 tablet, 5 Refills, Maintenance, 07/13/20 16:29:00 EDT, Tablet, [facility], Partial [...] 30 tablet, 5 Refills, Maintenance, 07/22/20 8:03:00EDT, [facility], Partial fill upon [...] 0 Refills, Maintenance, 08/27/20 9:45:00 EDT, Capsule, [facility], Partial fill [...] 11:32:00 EST, Aerosol, Route to Pharmacy Electronically, NCPDP_[id number], [facility], 160, [...] 6 Refills, Maintenance, 08/04/20 11:44:00 EDT, Tablet, [facility], 158.02, cm, 07/06/20 6:49:00 EDT, Height, [...] 6 Refills, Soft Stop, 08/04/20 11:37:00 EDT, [facility], Partial fill [...] 1resolved after weight loss 2chronic perst 3gyn 76494 5testing negative insulinoma 6likley dumping sydrome 7abnormal GTT ;sugar 36 two hours into test 8sees gi 9normal CT brain 10new 115.3 cm,right per ct scan recent;seeing gynecology soon;they will review 12vit d deficiency;correct 145036 14per endocrinology monitor 15correction refer GTT; 2 hour glucose 36 16refer GGT 17seeing ortho;pre op 18asma,ama neg/cerulopalsmain wnl,AAT wnl 19Negative hep A antibody positive hep B surface antibody negative antigen negative hep C, normal ferritin 20ukltrasound Social History Social History Type Response Smoking Status Never smoker entered on: 02/20/13 Sex
--- OUTSIDE RECORDS SUMMARY | 2022-08-17 08:42 | XMS_ITS | Continuity of Care Document ---
Author Name Unknown Organization [facility] Address [address] [place] [address]- Care Team Providers Care Dry Janitor Name Role Phone Eran Sue JOHNSON Primary Care Physician [phone] Encounter [facility] Date(s): 06/03/22 - 07/03/22 [facility] [address] [place] [address]- [place] Allergies, Adverse Reactions, Alerts Substance Reaction Severity Status Dust Allergy to pollen Active Pollen seasonal allergies respiratory symptoms Active Incruse Ellipta 1 lightheaded and migraine Active 1dizzy Immunizations Given and Recorded Vaccine Date Status Refusal Reason [id number] 12y+ bivalent booster vax 1 12/24/21 Given [...] vaccine, inactivated 02/08/11 Give n SARS-CoV-2 mRNA (himjypw-cwxa-hecie) vax 05/01/21 Recorded zoster vaccine, inactivated 11/03/20 [...] tetanus-diphtheria toxoids (Td) 08/03/05 Given 1Result Comment: [address]-4 2Result Comment: [id number] 3Result Comment: [12/07/2017] [address]-34 4Result Comment: [12/21/2016] [facility]: [id number] 5Result Comment: [06/10/2015] #3 6Admin Note: per [...] Gm, 5 Refills, Maintenance, 03/09/22 11:21:00 EST, [facility], 17, INHALE TWO PUFFS [...] 1,200 mL, 5 Refills, Maintenance,04/29/22 9:16:00 EST, [facility] #[id number], Partial fill upon patient request if the prescription is for a schedule II opioid drug., 158, cm, 02... Start Date: 04/29/22 Status: Ordered cetirizine 10 mg oral tablet 1 tablet, By Mouth, Daily, # 30 tablet, 5 Refills, Maintenance, 06/03/22 11:40:00 EDT, [facility], 158, cm, 05/25/22 13:59:00 [...] Refills, Maintenance, 05/30/22 7:57:00 EDT, CR Capsule, [facility], Partial fill upon patient request if the prescription is for a schedule II opioid... Start Date: 05/30/22 Status: Ordered Emgality Prefilled Pen 120 mg/mL subcutaneous solution = 120 mg, Subcutaneous Injection, Once, Maintenance Dose, # 3 kit, 2 Refills, Soft Stop, 03/17/22 8:08:00 EST, [facility], requesting 3 month supply [...] 6 Refills, Maintenance, 01/31/22 14:05:00 EST, Suspension, [facility], Partial fill upon patient request if the prescription is for a schedule II opioid drug., 163, cm, 01/18... Start Date: 01/31/22 Stop Date: 08/29/22 Status: Ordered Fiber Choice 1.5 g oral tablet, chewable 1 tablet = 1.5 Gm, Chew, 3 times a day, # 90 tablet, 0 Refills, Maintenance, 04/09/22 15:16:00 EST,Chew Tablet, [facility] #[id number], Partial fill upon patient request if the [...] Refills, Maintenance, 04/09/22 15:16:00 EST, REC Powder, [facility][id number], Partial fill upon patient request if the [...] each, 0 Refills, Maintenance, 04/06/22 15:29:00 EST, [facility] #[id number], Partial fi... Start Date: 04/06/22 Status: Ordered Reclast = 5 mg, IV Infusion, Once, 0 Refills, Maintenance, 11/06/20 10:24:00 EDT, administered at [facility] 10/2020 Start Date: 11/06/20 Status: Ordered Stool Softener + Stimulant Laxative 50 mg-8.6 mg oral capsule 1 capsule, By Mouth, Daily in PM, # 60 capsule, 0 Refills, Maintenance, 04/09/22 15:17:00 EST, Capsule, [facility] #[id number], Partial fill upon patient request if the prescription is for a schedule II opioid drug., 1 capsule By Mouth Daily in P... Start Date: 04/09/22 Status: Ordered Symbicort 160mcg/4.5mcg Inhaler 2, puffs, Inhalation, 2 times a day, rinse mouth and throat after use, # 10.2 Gm, Refills 2, Tot. Refills 2, Maintenance, 06/10/22 20:48:00 EDT, Route to Pharmacy Electronically, NCPDP_[id number], [facility], 158, cm, 06/07/22 10:... [...] Active Vitamin D deficiency Confirmed Active 1gyn 07951 3testing negative insulinoma 4likley dumping sydrome 5abnormal GTT ;sugar 36 two hours into test 6normal CT brain 7new 8resolved after weight loss 9chronic perst 105.3 cm,right per ct scan recent;seeing gynecology soon;they will review 11vit d deficiency;correct 115819 13per endocrinology monitor 14correction refer GTT; 2 [...] Professional Member Role: PCP Address: Address: [address] [place], [place] [address] Name: Andria Guadalupe RN Position: [facility] [...] Persons Name: KHUSHI CUNNINGHAM Address: home [address] [place] [address] Name: BHUPINDER VENEGAS Address: [address] [place] [address] Name: FELIPE FLORES Address: home [address] [place] [address] Name: ARNAV FLORES Address: home [address] [place] [address] Name: IRINA FLORES Address: home [address] [place] [address] Name: RUSLAN FLORES Address: home [address] [place] [address] Name: KAISER PLUNKETT Address: home [address] [place] [address]
--- OUTSIDE RECORDS SUMMARY | 2022-08-17 08:42 | XMS_ITS | Continuity of Care Document ---
Author Name Unknown Organization [facility] Address Unknown Care Team Providers Care Open Hearth Stockyard Supervisor Name Role Phone Eran COST REDUCTION ENGINEERSue Primary Care Physician Encounter [facility] Date(s): 08/31/21 - 09/30/21 [facility] Allergies, Adverse Reactions, Alerts Substance Reaction Severity Status Dust Allergy to pollen Active Pollen seasonal allergies respiratory symptoms Active Incruse Ellipta 1 lightheaded and migraine Active 1dizzy Immunizations Given and Recorded Vaccine Date Status Refusal Reason SARS-CoV-2 mRNA (rlenomn-ittd-cpcgj) vax 05/01/21 Recorded influenza virus vaccine, inactivated [...] toxoids (Td) 08/03/05 Given 1Result Comment: [12/07/2017] [address]-81 2Result Comment: [12/21/2016] [facility]: [id number] 3Result Comment: [06/10/2015] #3 4Admin Note: per [...] constipation, 08/23/21 8:22:00 EDT, Route to Pharmacy Electronically,[facility], Partial fill upon patient... [...] Soft Stop, 06/29/21 10:09:00 EDT, [facility], Partial fill [...] 09/17/21 14:13:00 EDT, Route to Pharmacy Electronically, [facility], 158, cm, 09/16/21 9:43:00 EDT, Height, [...] 1resolved after weight loss 2chronic perst 3gyn 90195 5testing negative insulinoma 6likley dumping sydrome 7abnormal GTT ;sugar 36 two hours into test 8sees gi 9normal CT brain 10new 115.3 cm,right per ct scan recent;seeing gynecology soon;they will review 12vit d deficiency;correct 475058 14per endocrinology monitor 15correction refer GTT; 2 hour glucose 36 16refer GGT 17seeing ortho;pre op 18asma,ama neg/cerulopalsmain wnl,AAT wnl 19Negative hep A antibody positive hep B surface antibody negative antigen negative hep C, normal ferritin 20ukltrasound Social History Social History Type Response Smoking Status Never smoker entered on: 02/20/13 Sex
--- OUTSIDE RECORDS SUMMARY | 2022-08-17 08:42 | XMS_ITS | Continuity of Care Document ---
Author Name Unknown Organization [facility] Address [address] [place] [address]- Care Team Providers Care Retail Wireless Sales Consultant Name Role Phone Eran Sue JOHNSON Primary Care Physician Encounter [facility] Date(s): 04/08/21 - 05/08/21 [facility] [address] [place] [address]- [place] Allergies, Adverse Reactions, Alerts Substance Reaction Severity Status Dust Allergy to pollen Active Pollen seasonal allergies respiratory symptoms Active Incruse Ellipta 1 lightheaded and migraine Active 1dizzy Immunizations Given and Recorded Vaccine Date Status Refusal Reason SARS-CoV-2 mRNA (mqyfzhd-qjjz-xwzlz) vax 05/01/21 Recorded influenza virus vaccine, inactivated [...] toxoids (Td) 08/03/05 Given 1Result Comment: [12/07/2017] [address]-77 2Result Comment: [12/21/2016] [facility]: [id number] 3Result Comment: [06/10/2015] #3 4Admin Note: per [...] Refills, Maintenance, 03/03/21 16:42:00 EST, REC Powder, [facility], Partial fill [...] per PCP, # 30 mL, 1 Refills, [facility], 158, cm, 04/09/21 8:13:00 EST, Height, 80.6, kg, 03/08/21 12:18:00 EST, Dry Weight Start Date: 04/30/21 Status: Ordered Dexilant 60 mg oral delayed release capsule 1 capsule = 60 mg, By Mouth, 2 times a day, 30 min before meal, # 60 capsule, 5 Refills, Maintenance, 04/16/21 14:29:00 EST, CR Capsule, [facility], Partial fill upon patient request if the prescription is for a schedule II opioi... Start Date: 04/16/21 Status: Ordered Emgality Prefilled Pen 120 mg/mL subcutaneous solution = 240 mg, Subcutaneous Injection, Once, Loading Dose, # 2 kit, 0 Refills, Soft Stop, 03/16/21 16:05:00 EST, [facility], Partial [...] 1 Refills, Maintenance, 04/06/21 9:45:00 EST, Solution, [facility], [...] 04/23/21 12:32:00 EST, Route to Pharmacy Electronically, [facility], 158, cm, 04/09/21 8:13:00 [...] Date: 12/10/20 Stop Date: 07/08/21 Status: Ordered [place] 0.65% nasal spray 2 sprays, Nares, Both, [...] 8:26:00 EDT, Aerosol, Route to Pharmacy Electronically, NCPDP_[id number], [facility], 158.02, cm, [...] Gm, Refills 11, Route to Pharmacy Electronically, NCPDP_[id number], [facility], 158.02, cm, [...] 1resolved after weight loss 2chronic perst 3gyn 45733 5testing negative insulinoma 6likley dumping sydrome 7abnormal GTT ;sugar 36 two hours into test 8sees gi 9normal CT brain 10new 115.3 cm,right per ct scan recent;seeing gynecology soon;they will review 12vit d deficiency;correct 086139 14per endocrinology monitor 15correction refer GTT; 2 hour glucose 36 16refer GGT 17seeing ortho;pre op 18asma,ama neg/cerulopalsmain wnl,AAT wnl 19Negative hep A antibody positive hep B surface antibody negative antigen negative hep C, normal ferritin 20ukltrasound Social History Social History Type Response Smoking Status Never smoker entered on: 02/20/13 Sex
--- OUTSIDE RECORDS SUMMARY | 2022-08-17 08:42 | XMS_ITS | Continuity of Care Document ---
Author Name Unknown Organization [facility] Address [address] [place] [address]- Care Team Providers Care Pcb Design Engineer Name Role Phone Louisa LANDRUM, Taras Fuentes Primary Care Physician Encounter [facility] Date(s): 06/19/20 - 07/19/20 [facility] [address] [place] [address] Allergies, Adverse Reactions, Alerts Substance [...] toxoids (Td) 08/03/05 Given 1Result Comment: [12/07/2017] [address]-84 2Result Comment: [12/21/2016] [facility]: [id number] 3Result Comment: [06/10/2015] #3 4Admin Note: per [...] 11:32:00 EST, Aerosol, Route to Pharmacy Electronically, NCPDP_[id number], [facility], [...] 1resolved after weight loss 2chronic perst 3gyn 52685 5testing negative insulinoma 6likley dumping sydrome 7abnormal GTT ;sugar 36 two hours into test 8sees gi 9normal CT brain 10new 115.3 cm,right per ct scan recent;seeing gynecology soon;they will review 12vit d deficiency;correct 441468 14per endocrinology monitor 15correction refer GTT; 2 hour glucose 36 16refer GGT 17seeing ortho;pre op 18asma,ama neg/cerulopalsmain wnl,AAT wnl 19Negative hep A antibody positive hep B surface antibody negative antigen negative hep C, normal ferritin 20ukltrasound Social History Social History Type Response Smoking Status Never smoker entered on: 02/20/13 Sex
--- OUTSIDE RECORDS SUMMARY | 2022-08-17 08:42 | XMS_ITS | Continuity of Care Document ---
Author Name Unknown Organization [facility] Address [address] [place] [address]- Care Team Providers Care Filling Hauler Weaving Name Role Phone Eran Sue JOHNSON Primary Care Physician [phone] Encounter [facility] Date(s): 08/18/21 - 09/17/21 [facility] [address] [place] [address]- [place] Allergies, Adverse Reactions, Alerts Substance Reaction Severity Status Dust Allergy to pollen Active Pollen seasonal allergies respiratory symptoms Active Incruse Ellipta 1 lightheaded and migraine Active 1dizzy Immunizations Given and Recorded Vaccine Date Status Refusal Reason SARS-CoV-2 mRNA (xcyteoj-qfkn-cwpli) vax 05/01/21 Recorded influenza virus vaccine, inactivated [...] toxoids (Td) 08/03/05 Given 1Result Comment: [12/07/2017] [id number] 2Result Comment: [12/21/2016] [facility]: [id number] 3Result Comment: [06/10/2015] #3 4Admin Note: per [...] constipation, 08/23/21 8:22:00 EDT, Route to Pharmacy Electronically,[facility], Partial fill upon patient... [...] 6 Refills, Soft Stop, 06/29/21 10:09:00 EDT, [facility], Partial [...] 09/17/21 14:13:00 EDT, Route to Pharmacy Electronically, [facility], 158, cm, 09/16/21 9:43:00 EDT, [...] 1resolved after weight loss 2chronic perst 3gyn 48516 5testing negative insulinoma 6likley dumping sydrome 7abnormal GTT ;sugar 36 two hours into test 8sees gi 9normal CT brain 10new 115.3 cm,right per ct scan recent;seeing gynecology soon;they will review 12vit d deficiency;correct 027995 14per endocrinology monitor 15correction refer GTT; 2 hour glucose 36 16refer GGT 17seeing ortho;pre op 18asma,ama neg/cerulopalsmain wnl,AAT wnl 19Negative hep A antibody positive hep B surface antibody negative antigen negative hep C, normal ferritin 20ukltrasound Social History Social History Type Response Smoking Status Never smoker entered on: 02/20/13 Sex
--- OUTSIDE RECORDS SUMMARY | 2022-08-17 08:42 | XMS_ITS | Continuity of Care Document ---
Author Name Unknown Organization [facility] Address [address] [place] [address]- Care Team Providers Care Hand Drawer In Helper Name Role Phone Eran PLANT BIOLOGY PROFESSOR, Sue Dahl Primary Care Physician Encounter [facility] Date(s): 04/28/22 - 05/28/22 [facility] [address] [place] [address]- Attending Physician: Admtr, Ar8 Allergies, Adverse Reactions, Alerts Substance Reaction Severity Status Dust Allergy to pollen Active Incruse Ellipta 1 lightheaded and migraine Active Pollen seasonal allergies respiratory symptoms Active 1dizzy Immunizations Given and Recorded Vaccine Date Status Refusal Reason [id number] 12y+ bivalent booster vax 1 12/24/21 Given [...] vaccine, inactivated 02/08/11 Give n SARS-CoV-2 mRNA ([id number]) vax 05/01/21 Recorded zoster vaccine, inactivated 11/03/20 [...] tetanus-diphtheria toxoids (Td) 08/03/05 Given 1Result Comment: [id number] 2Result Comment: [id number] 3Result Comment: [12/07/2017] [id number] 4Result Comment: [12/21/2016] [facility]: 40840-937-15 5Result Comment: [06/10/2015] #3 6Admin Note: per pt 7Admin Note: given in clinic Medications acetaminophen 500 mg oral tablet 2 tablet = 1,000 mg, By Mouth, Every 6 hours, PRN as needed for fever, # 200 tablet, 0 Refills, Maintenance, 12/03/21 10:17:00 EDT, Tablet, [facility], Partial fill upon patient request if the prescription is for a schedule II opi... Start Date: 12/03/21 Status: Ordered Albuterol (Eqv-ProAir HFA) 90 mcg/inh inhalation aerosol 2 puffs, Inhalation, Every 4 hours, PRN NEEDED FOR WHEEZING, # 8.5 Gm, 5 Refills, Maintenance, 03/09/22 11:21:00 EST, [facility], 17, INHALE TWO PUFFS BY MOUTH [...] Maintenance, 11/03/21 8:23:00 EDT, Tablet, [facility], 2 tablet By Mouth 2 times a day, 158, cm, 11/03/21 8:01:00 EDT,Height, 71.5, kg, 09/01/21 16:21:00 EDT, Dry Weight Start Date: 11/03/21 Status: Ordered Carafate 1 gm/10 ml oral suspension 10 mL = 1 Gm, By Mouth, 3 times a day before meals and bedtime, # 1,200 mL, 5 Refills, Maintenance,04/29/22 9:16:00 EST, [facility] #[id number], Partial fill upon patient request if the [...] 11/22/21 9:49:00 EDT, CR Capsule, [facility], Partial fill upon patient request if the prescription is for a schedule II opioid... Start Date: 11/22/21 Status: Ordered Emgality Prefilled Pen 120 mg/mL subcutaneous solution = 120 mg, Subcutaneous Injection, Once, Maintenance Dose, # 3 kit, 2 Refills, Soft Stop, 03/17/22 8:08:00 EST, [facility], requesting 3 month supply for cheaper [...] Maintenance, 01/31/22 14:05:00 EST, Suspension, [facility], Partial fill upon patient request if the prescription is for a schedule II opioid drug., 163, cm, 01/18... Start Date: 01/31/22 Stop Date: 08/29/22 Status: Ordered Fiber Choice 1.5 g oral tablet, chewable 1 tablet = 1.5 Gm, Chew, 3 times a day, # 90 tablet, 0 Refills, Maintenance, 04/09/22 15:16:00 EST,Chew Tablet, [facility][id number], Partial fill upon patient request if the [...] Refills, Maintenance, 04/09/22 15:16:00 EST, REC Powder, [facility] #[id number], Partial fill upon patient request if the prescription is for a schedule II opioid drug., 17 Gm... Start Date: 04/09/22 Status: Ordered montelukast 10 mg oral tablet 1, tablet, By Mouth, Daily in PM, # 90 tablet, Refills 1, Tot. Refills 1, Maintenance, 11/14/21 11:28:00 EDT, Route to Pharmacy Electronically, [facility], 158, cm, 11/03/21 8:01:00 EDT, Height, 71.5, kg, 09/01/21 16:21:00 EDT, Start Date: 11/14/21 Status: Ordered Nurtec ODT 75 mg oral tablet, disintegrating See Instructions, TAKE ONE TABLET DAILY NEEDED FOR migraines, DO NOT EXCEED ONE TABLET IN 24 HOURS, # 8 tablet, 6 Refills, Maintenance, 12/28/21 15:14:00 EDT, [facility], 163,cm, 12/24/21 8:20:00 EDT, Height, 67, [...] each, 0 Refills, Maintenance, 04/06/22 15:29:00 EST, [facility] #[id number], Partial fi... Start Date: 04/06/22 Status: Ordered Reclast = 5 mg, IV Infusion, Once, 0 Refills, Maintenance, 11/06/20 10:24:00 EDT, administered at [facility] 10/2020 Start Date: 11/06/20 Status: Ordered Stool Softener + Stimulant Laxative 50 mg-8.6 mg oral capsule 1 capsule, By Mouth, Daily in PM, # 60 capsule, 0 Refills, Maintenance, 04/09/22 15:17:00 EST, Capsule, [facility] #[id number], Partial fill upon patient request if the prescription is for a schedule II opioid drug., 1 capsule By Mouth Daily in P... Start Date: 04/09/22 Status: Ordered Symbicort 160mcg/4.5mcg Inhaler 2, puffs, Inhalation, 2 times a day, rinse mouth and throat after use, # 10.2 Gm, Refills 3, Tot. Refills 3, Maintenance, 11/23/21 19:57:00 EDT, Route to Pharmacy Electronically, NCPDP_[id number], [facility], 158, cm, 11/03/21 8:0... Start Date: [...] Maintenance, 12/10/21 9:44:00 EDT, Tablet, [facility], Partial [...] Active Vitamin D deficiency Confirmed Active 1gyn 84889 3testing negative insulinoma 4likley dumping sydrome 5abnormal GTT ;sugar 36 two hours into test 6normal CT brain 7new 8resolved after weight loss 9chronic perst 105.3 cm,right per ct scan recent;seeing gynecology soon;they will review 11vit d deficiency;correct [id number] 13per endocrinology monitor 14correction refer GTT; 2 [...] Event Display: Consult Note Cardiology Authored Date: [id number] Cardiology Outpatient Note * Ann-Marie Olsen: PERFORM Event Display: Cardiology Note Office Authored Date: [id number] Patient Care team information Care Team Personnel Name: Caitlyn Mcgee RN Position: S RN Member Role: Primary Care Nurse Name: Sue Barillas NP Position: [facility] PCO Associate Professional Member Role: PCP Address: Address: [address] [place] [id number] Name: Andria Guadalupe RN Position: [facility] [...] Persons Name: KHUSHI CUNNINGHAM Address: home [address] [place] [address] Name: BHUPINDER VENEGAS Address: home [address] [place] [address] Name: FELIPE FLORES Address: home [address] [place] [address] Name: ARNAV FLORES Address: home [address] [place] [address] Name: IRINA FLORES Address: home [address] [place] [address] Name: RUSLAN FLORES Address: home [address] [place] [address] Name: KAISER PLUNKETT Address: home [address] [place] [address]
--- OUTSIDE RECORDS SUMMARY | 2022-08-17 08:42 | XMS_ITS | Continuity of Care Document ---
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 Start Date: 07/03/19 Status: Ordered amitriptyline 25 mg oral tablet 25 mg, 1, tablet, By Mouth, Daily at bedtime, # 30 tablet, Refills 5, Tot. Refills 5, Maintenance, 12/30/19 11:47:00 EDT, Route to Pharmacy Electronically, [facility], 160.02, cm, 12/02/19 6:45:00 [...] 60 capsule, 5 Refills, Maintenance, 12/26/19 12:06:00EDT, [facility], 160.02, cm, 12/02/19 6:45:00 [...] 1 Refills, Soft Stop, 11/20/19 11:59:00 EDT, [facility], 160.02, cm, 11/15/19 10:05:00 [...] 02/25/19 16:55:00 EST, Route to Pharmacy Electronically, [facility], 158, cm, 02/14/19 7:55:00 EST, Height, 61.9, kg, 02/12/19 10:17:00... Start Date: 02/25/19 Status: Ordered montelukast 10 mg oral tablet 10 mg, 1, tablet, By Mouth, Daily in PM, # 90 tablet, Refills 3, Tot. Refills 3, Maintenance, 08/15/19 16:21:00 EDT, Route to Pharmacy Electronically, [facility], 160, cm, 08/15/19 13:45:00 EDT, Height, 56.5, kg, 05/29/19 13:36:00... Start Date: 08/15/19 Status: Ordered ondansetron 4 mg oral tablet, disintegrating 1 tablet = 4 mg, By Mouth, Every 8 hours, PRN as needed for nausea/vomiting, # 9 tablet, 0 Refills,Maintenance, 10/06/19 21:07:00 EDT, DIS Tablet, [facility] Start Date: 10/06/19 Stop Date: 10/09/19 Status: Ordered ProAir HFA 90 mcg/inh inhalation aerosol with adapter 2, puffs, Inhalation, Every 4 hours, PRN, # 8.5 Gm, Refills 2, Tot. Refills 2, Maintenance, 04/29/19 11:32:00 EST, Aerosol, Route to Pharmacy Electronically, NCPDP_[id number], [facility], 160, cm, 04/29/19 10:47:00 EST, Height... Start Date: 04/29/19 Status: Ordered Symbicort 160mcg/4.5mcg Inhaler 2, puffs, Inhalation, 2 times a day, use with spacer chamber, # 1 each, Refills 11, Tot. Refills 11, Maintenance, 07/08/19 13:36:00 EDT, Route to Pharmacy Electronically, NCPDP_[id number], [facility], 160, cm, 07/08/19 13:03:00 ED... Start Date: 07/08/19 Status: Ordered Topamax 50 mg oral tablet 2 tablet = 100 mg, By Mouth, Daily at bedtime, # 60 tablet, 6 Refills, Maintenance, 11/04/19 11:08:00 EDT, Tablet, [facility], weaning zonegran off by 25mg every 2 days then can start topamax., 160.02, cm, 10/29/19 12:35:00 EDT, H... Start Date: 11/04/19 Stop Date: 06/01/20 Status: Ordered traZODone 100 mg oral tablet 100 mg, 1, tablet, By Mouth, 2 times a day, # 60 tablet, Refills 0, Maintenance, 03/02/20 13:19:00 EST, Partial fill upon patient request if the prescription is for a schedule II opioid drug. Start Date: 03/02/20 Status: Ordered Ubrelvy 50 mg oral tablet See Instructions, TAKE 1 TABLET BY MOUTH AT ONSET OF MIGRAINE. MAY REPEAT ONCE AFTER 2 HOURS IF NEEDED, # 10 tablet, 1 Refills, Soft Stop, [facility], 160.02, cm, 12/02/19 6:45:00 EDT, Height, 67, kg, 09/11/19 11:20:00 EDT, Dry We... Start Date: 02/18/20 Status: Ordered Zofran 4 mg oral tablet 1 tablet = 4 mg, By Mouth, Every 8 hours, PRN Nausea & Vomiting, # 30 tablet, 0 Refills, Maintenance, 09/30/19 11:23:00 EDT, [facility], 160.02, cm, 09/24/19 15:31:00 [...] perst 3folowed by mental health;recent hospitalization 4gyn 71474 6testing negative insulinoma 7likley dumping sydrome 8abnormal GTT ;sugar 36 two hours into test 9sees gi 10normal CT brain 11new 125.3 cm,right per ct scan recent;seeing gynecology soon;they will review 13vit d deficiency;correct 815410 15per endocrinology monitor 16correction refer GTT; 2 hour glucose 36 17refer GGT 18seeing ortho;pre op 19asma,ama neg/cerulopalsmain wnl,AAT wnl 20Negative hep A antibody positive hep B surface antibody negative antigen negative hep C, normal ferritin 21ukltrasound Diagnosis Diagnosis Type Effective Dates Health Status Clinical Service Informant Orthostatic hypotension Discharge Diagnosis 03/02/20 Bipolar disorder NOS Discharge Diagnosis 03/02/20 Spondylosis of lumbar spine MRI 2018 sx 2018 Discharge Diagnosis 03/02/20 Fall Discharge Diagnosis 03/02/20 Dizziness Discharge Diagnosis 03/02/20 Vital Signs Most recent to oldest [Reference Range]: 1 2 Height 160.02 cm (03/02/20 1:22 PM) 160.02 cm (03/02/20 1:03 PM) Weight 73.5 kg (03/02/20 1:03 PM) Oxygen Saturation [94-100 %] 97 % (03/02/20 1:03 PM) Pulse Rate [55-90 bpm] 69 bpm (03/02/20 1:03 PM) Body Mass Index [18.5-24.99] 28.7 *H* (03/02/20 1:03 PM) Temperature [96.8-100.4 DegF] 98.5 DegF (03/02/20 1:03 PM) Social History Social History Type Response Smoking Status Never smoker entered on: 02/20/13 Sex
--- OUTSIDE RECORDS SUMMARY | 2022-08-17 08:42 | XMS_ITS | Continuity of Care Document ---
Author Name Unknown Organization [facility] Address [address] [place] [address]- Care Team Providers Care Trash Collector Name Role Phone Louisa LANDRUM, Taras Fuentes Primary Care Physician [phone] Encounter [facility] Date(s): 06/07/19 - 07/17/[address] [address]- [facility] Attending Physician: Sue Barillas NP Admitting Physician: [...] toxoids (Td) 08/03/05 Given 1Result Comment: [12/07/2017] [id number] 2Result Comment: [12/21/2016] [facility]: [id number] 3Result Comment: [06/10/2015] #3 4Admin Note: per [...] 07/07/2012:36:00 EDT, Aerosol, Route to Pharmacy Electronically, NCPDP_[id number], [facility], 160, cm, 07/08/19 13:03:00 EDT, Height, 56.... Start Date: 07/08/19 Status: Ordered Dexilant 60 mg oral delayed release capsule 1 capsule = 60 mg, By Mouth, 2 times a day, # 60 capsule, 5 Refills, Maintenance, 12/31/18 11:53:09EDT Start Date: 12/31/18 Status: Ordered eletriptan 40 mg oral tablet [...] 07/08/19 13:36:00 EDT, Route to Pharmacy Electronically, [facility], 160, cm, 07/08/19 13:03:00 EDT, Height, 56.5, kg, 05/29/19 13:36:00... Start Date: 07/08/19 Status: Ordered ProAir HFA 90 mcg/inh inhalation aerosol with adapter 2, puffs, Inhalation, Every 4 hours, PRN, # 8.5 Gm, Refills 2, Tot. Refills 2, Maintenance, 04/29/19 11:32:00 EST, Aerosol, Route to Pharmacy Electronically, NCPDP_[id number], [facility], [...] 07/08/19 13:36:00 EDT, Route to Pharmacy Electronically, NCPDP_[id number], [facility], 160, cm, [...] perst 3folowed by mental health;recent hospitalization 4gyn 22384 6testing negative insulinoma 7likley dumping sydrome 8abnormal GTT ;sugar 36 two hours into test 9sees gi 10normal CT brain 11new 125.3 cm,right per ct scan recent;seeing gynecology soon;they will review 13vit d deficiency;correct 649475 15per endocrinology monitor 16correction refer GTT; 2 hour glucose 36 17refer GGT 18seeing ortho;pre op 19asma,ama neg/cerulopalsmain wnl,AAT wnl 20Negative hep A antibody positive hep B surface antibody negative antigen negative hep C, normal ferritin 21ukltrasound Social History Social History Type Response Smoking Status Never smoker entered on: 02/20/13 Sex
--- OUTSIDE RECORDS SUMMARY | 2022-08-17 08:42 | XMS_ITS | Continuity of Care Document ---
Author Name Unknown Organization [facility] Address Unknown Care Team Providers Care Chief Engineer Name Role Phone Louisa LANDRUM, Taras Fuentes Primary Care Physician [phone] Encounter [facility] Date(s): 11/20/20 - 12/20/20 [facility] Allergies, Adverse Reactions, Alerts Substance [...] toxoids (Td) 08/03/05 Given 1Result Comment: [12/07/2017] [id number] 2Result Comment: [12/21/2016] [facility]: [id number] 3Result Comment: [06/10/2015] #3 4Admin Note: per pt 5Admin Note: given in clinic Medications acarbose 50 mg oral tablet 1 tablet = 50 mg, By Mouth, 3 times a day, Take 3 times daily with meals. E11.65, # 90 tablet, 5 Refills, Maintenance, 07/13/20 16:29:00 EDT, Tablet, [facility], [...] Refills, Maintenance, 07/03/19 13:59:00 EDT, Solution, [facility], 160, cm, 05/29/19 13:36:00 EDT, Height, 56.5, kg, 03... Start Date: 07/03/19 Status: Ordered Baqsimi One Pack 3 mg nasal powder See Instructions, 3 mg Once intrasnasally for severe hypoglycemia, # 2 each, 3 Refills, Soft Stop, 08/28/20 10:36:00 EDT, [facility], Partial [...] 5 Refills, Maintenance, 11/06/20 10:28:00 EDT, Tablet, [facility], Replaces loratidine, 158.02, cm, 11/06/20 [...] Refills, Soft Stop, 11/20/19 11:59:00 EDT, [facility], 160.02, cm, 11/15/19 [...] 16:21:00 EDT, Route to Pharmacy Electronically, [facility], 160, cm, 08/15/19 [...] Date: 12/10/20 Stop Date: 07/08/21 Status: Ordered Pierce 0.65% nasal spray 2 sprays, Nares, Both, 4 times a day, # 1 each, 0 Refills, Maintenance, 10/30/20 11:34:00 EDT, [facility], Partial [...] 11:32:00 EST, Aerosol, Route to Pharmacy Electronically, NCPDP_[id number], [facility], 160, cm, 04/29/19 10:47:00 EST, Height... Start Date: 04/29/19 Status: Ordered Reclast = 5 mg, IV Infusion, Once, 0 Refills, Maintenance, 11/06/20 10:24:00 EDT, administered at [facility] 10/2020 Start Date: 11/06/20 Status: Ordered Symbicort 160mcg/4.5mcg Inhaler 2, puffs, Inhalation, 2 times a day, with spacer., # 10.2 Gm, Refills 11, Route to Pharmacy Electronically, NCPDP_[id number], [facility], 158.02, cm, 11/13/20 8:38:00 EDT, [...] 1resolved after weight loss 2chronic perst 3gyn 25047 5testing negative insulinoma 6likley dumping sydrome 7abnormal GTT ;sugar 36 two hours into test 8sees gi 9normal CT brain 10new 115.3 cm,right per ct scan recent;seeing gynecology soon;they will review 12vit d deficiency;correct 437395 14per endocrinology monitor 15correction refer GTT; 2 hour glucose 36 16refer GGT 17seeing ortho;pre op 18asma,ama neg/cerulopalsmain wnl,AAT wnl 19Negative hep A antibody positive hep B surface antibody negative antigen negative hep C, normal ferritin 20ukltrasound Social History Social History Type Response Smoking Status Never smoker entered on: 02/20/13 Sex
--- OUTSIDE RECORDS SUMMARY | 2022-08-17 08:42 | XMS_ITS | Continuity of Care Document ---
Author Name Unknown Organization [facility] Address [address] [place] [address]- Care Team Providers Care Credit Union Manager Name Role Phone Louisa LANDRUM, Taras Fuentes Primary Care Physician [facility]counter [facility] Date(s): 06/12/20 - 07/12/20 [facility] [address] [place] [address] Allergies, Adverse [...] toxoids (Td) 08/03/05 Given 1Result Comment: [12/07/2017] [id number] 2Result Comment: [12/21/2016] [facility]: [id number] 3Result Comment: [06/10/2015] #3 4Admin Note: per [...] 11:32:00 EST, Aerosol, Route to Pharmacy Electronically, NCPDP_[id number], [facility] - [...] 0 Refills, Maintenance, 06/13/20 14:10:00 EDT, Capsule, [facility],... Start Date: 06/13/20 [...] 1resolved after weight loss 2chronic perst 3gyn 07048 5testing negative insulinoma 6likley dumping sydrome 7abnormal GTT ;sugar 36 two hours into test 8sees gi 9normal CT brain 10new 115.3 cm,right per ct scan recent;seeing gynecology soon;they will review 12vit d deficiency;correct 251739 14per endocrinology monitor 15correction refer GTT; 2 hour glucose 36 16refer GGT 17seeing ortho;pre op 18asma,ama neg/cerulopalsmain wnl,AAT wnl 19Negative hep A antibody positive hep B surface antibody negative antigen negative hep C, normal ferritin 20ukltrasound Social History Social History Type Response Smoking Status Never smoker entered on: 02/20/13 Sex
--- OUTSIDE RECORDS SUMMARY | 2022-08-17 08:42 | XMS_ITS | Continuity of Care Document ---
Author Name Unknown Organization [facility] Address [address] [place] [address]- Care Team Providers Care Soft Water Mechanic Name Role Phone Louisa LANDRUM, Taras Fuentes Primary Care Physician [facility]counter [facility] Date(s): 11/12/19 - 12/12/19 [facility] [address] [place] [address]- [facility] Allergies, Adverse Reactions, Alerts Substance [...] toxoids (Td) 08/03/05 Given 1Result Comment: [12/07/2017] [id number] 2Result Comment: [12/21/2016] [facility]: [id number] 3Result Comment: [06/10/2015] #3 4Admin Note: per [...] 0 Refills, Maintenance, 07/03/19 13:59:00 EDT, Solution, [facility], 160, cm, 05/29/19 13:36:00 EDT, Height, 56.5, kg, 03... Start Date: 07/03/19 Status: Ordered albuterol CFC free 90 mcg/inh inhalation aerosol 2, puffs, Inhalation, 4 times a day, PRN, # 25 Gm, Refills 0, Tot. Refills 0, Maintenance, 07/07/2012:36:00 EDT, Aerosol, Route to Pharmacy Electronically, NCPDP_[id number], [facility], 160, cm, 07/08/19 13:03:00 EDT, [...] 60 capsule, 5 Refills, Maintenance, 07/30/19 10:21:00EDT, [facility], 160, cm, 07/08/19 13:03:00 EDT, Height, 56.5, kg, 05/29/19 13:36:00 EDT, Dry Weight Start Date: 07/30/19 Status: Ordered eletriptan 40 mg oral tablet 1 tablet = 40 mg, By Mouth, Daily, PRN for migraine headache, # 9 tablet, 5 Refills, Soft Stop, 07/16/19 9:23:00 EDT, Tablet, [facility], she has tried sumatriptan and [...] 02/25/19 16:55:00 EST, Route to Pharmacy Electronically, [facility], 158, cm, 02/14/19 7:55:00 EST, Height, 61.9, kg, 02/12/19 10:17:00... Start Date: 02/25/19 Status: Ordered montelukast 10 mg oral tablet 10 mg, 1, tablet, By Mouth, Daily in PM, # 90 tablet, Refills 3, Tot. Refills 3, Maintenance, 08/15/19 16:21:00 EDT, Route to Pharmacy Electronically, [facility], 160, cm, 08/15/19 13:45:00 EDT, Height, 56.5, kg, 05/29/19 13:36:00... Start Date: 08/15/19 Status: Ordered NuLYTELY with Flavor Packs oral powder for reconstitution 240 mL, By Mouth, Every 10 minutes, # 4,000 mL, 0 Refills, Maintenance, 11/15/19 10:29:00 EDT, REC Powder, [facility], 240 mL By Mouth Every 10 minutes, 160.02, cm, 11/15/19 10:05:00 EDT, Height, 67, kg, 09/11/19 11:20:00 EDT, Dry... Start Date: 11/15/19 Status: Ordered ondansetron 4 mg oral tablet, disintegrating 1 tablet = 4 mg, By Mouth, Every 8 hours, PRN as needed for nausea/vomiting, # 9 tablet, 0 Refills,Maintenance, 10/06/19 21:07:00 EDT, DIS Tablet, [facility] Start Date: 10/06/19 Stop Date: 10/09/19 Status: Ordered ProAir HFA 90 mcg/inh inhalation aerosol with adapter 2, puffs, Inhalation, Every 4 hours, PRN, # 8.5 Gm, Refills 2, Tot. Refills 2, Maintenance, 04/29/19 11:32:00 EST, Aerosol, Route to Pharmacy Electronically, NCPDP_[id number], [facility], 160, cm, 04/29/19 [...] 07/08/19 13:36:00 EDT, Route to Pharmacy Electronically, NCPDP_[id number], [facility], 160, cm, 07/08/19 13:03:00 ED... Start Date: 07/08/19 Status: Ordered Topamax 50 mg oral tablet 2 tablet = 100 mg, By Mouth, Daily at bedtime, # 60 tablet, 6 Refills, Maintenance, 11/04/19 11:08:00 EDT, Tablet, [facility], weaning zonegran off by 25mg [...] Refills, Soft Stop, 11/25/19 21:26:00 EDT, Tablet, [facility], 160.02, cm, 11/15/19 10:05:00 EDT, Height,... Start Date: 11/25/19 Status: Ordered Zofran 4 mg oral tablet 1 tablet = 4 mg, By Mouth, Every 8 hours, PRN Nausea & Vomiting, # 30 tablet, 0 Refills, Maintenance, 09/30/19 11:23:00 EDT, [facility], 160.02, cm, 09/24/19 15:31:00 EDT, [...] perst 3folowed by mental health;recent hospitalization 4gyn 43727 6testing negative insulinoma 7likley dumping sydrome 8abnormal GTT ;sugar 36 two hours into test 9sees gi 10normal CT brain 11new 125.3 cm,right per ct scan recent;seeing gynecology soon;they will review 13vit d deficiency;correct 288525 15per endocrinology monitor 16correction refer GTT; 2 hour glucose 36 17refer GGT 18seeing ortho;pre op 19asma,ama neg/cerulopalsmain wnl,AAT wnl 20Negative hep A antibody positive hep B surface antibody negative antigen negative hep C, normal ferritin 21ukltrasound Social History Social History Type Response Smoking Status Never smoker entered on: 02/20/13 Sex
--- OUTSIDE RECORDS SUMMARY | 2022-08-17 08:42 | XMS_ITS | Continuity of Care Document ---
Author Name Unknown Organization [facility] Address [address] [place] [address]- Care Team Providers Care Oim Architect Name Role Phone Luoisa LANDRUM, Taras Fuentes Primary Care Physician En[place] [facility] [place](s[place] 11/19/18 - 03/06/19 [facility] [address] [place] [address]- [facility] Attending Physician: Ralph Mckeon MD Admitting Physician: Ralph Mckeon MD Allergies, Adverse Reactions, Alerts Substance Reaction [...] toxoids (Td) 08/03/05 Given 1Result Comment: [12/07/2017] [id number] 2Result Comment: [12/21/2016] [facility]: [id number] 3Result Comment: [06/10/2015] #3 4Admin Note: per [...] duplicate from 02/05 due to routing error, Gal, 158, cm, 02/05/19 8:19:50 EST, Height, 6... [...] Tot. Refills 11, Maintenance, DX:J45.909 ASTHMA FAX [id number], 12/21/17 11:58:59 EDT, Compound Start Date: 12/21/17 [...] EST, Route to Pharmacy Electronically, [facility], Keven, albertina, 02/14/19 7:55:00 EST, Height, 61.9, kg, 02/12/19 [...] 14:19:44 EST, Aerosol, Route to Pharmacy Electronically, NCPDP_[id number], [facility] Start Date: 03/19/18 Status: [...] 05/12/17 8:15:18, Aerosol, Route to Pharmacy Electronically, NCPDP_[id number], [facility]... Start Date: 05/12/17 Status: Ordered tiZANidine [...] perst 3folowed by mental health;recent hospitalization 4gyn 32589 6testing negative insulinoma 7likley dumping sydrome 8abnormal GTT ;sugar 36 two hours into test 9sees gi 10normal CT brain 11new 125.3 cm,right per ct scan recent;seeing gynecology soon;they will review 13vit d deficiency;correct 915141 15per endocrinology monitor 16correction refer GTT; 2 hour glucose 36 17refer GGT 18seeing ortho;pre op 19asma,ama neg/cerulopalsmain wnl,AAT wnl 20Negative hep A antibody positive hep B surface antibody negative antigen negative hep C, normal ferritin 21ukltrasound Social History Social History Type Response Smoking Status Never smoker entered on: 02/20/13 Sex
--- OUTSIDE RECORDS SUMMARY | 2022-08-17 08:42 | XMS_ITS | Continuity of Care Document ---
Author Name Unknown Organization [facility] Address [address] [place] [address]- Care Team Providers Care Wire Drawing Setter Name Role Phone Louisa LANDRUM, Taras Fuentes Primary Care Physician Encounter [facility] Date(s): 06/12/20 - 07/12/20 [facility] [address] [place] [address] Allergies, Adverse Reactions, Alerts Substance Reaction [...] toxoids (Td) 08/03/05 Given 1Result Comment: [12/07/2017] [id number] 2Result Comment: [12/21/2016] [facility]: 86375-507-96 3Result Comment: [06/10/2015] #3 4Admin Note: per [...] 11:32:00 EST, Aerosol, Route to Pharmacy Electronically, NCPDP_[id number], [facility], 160, cm, 04/29/19 10:47:00 EST, Height... Start Date: 04/29/19 Status: Ordered Topamax 50 mg oral tablet See Instructions, take 1 tab in am and 2 tab at bedtime. If AM dose causes bad sedation, add to HS dose., # 90 tablet, 6 Refills, Maintenance, 03/12/20 11:09:00 EST, Tablet, [facility], weaning zonegran off by [...] 6 Refills, Soft Stop, 03/12/20 11:04:00 EST, [facility], Partial fill upon [...] 1resolved after weight loss 2chronic perst 3gyn 99107 5testing negative insulinoma 6likley dumping sydrome 7abnormal GTT ;sugar 36 two hours into test 8sees gi 9normal CT brain 10new 115.3 cm,right per ct scan recent;seeing gynecology soon;they will review 12vit d deficiency;correct 451138 14per endocrinology monitor 15correction refer GTT; 2 hour glucose 36 16refer GGT 17seeing ortho;pre op 18asma,ama neg/cerulopalsmain wnl,AAT wnl 19Negative hep A antibody positive hep B surface antibody negative antigen negative hep C, normal ferritin 20ukltrasound Social History Social History Type Response Smoking Status Never smoker entered on: 02/20/13 Sex
--- OUTSIDE RECORDS SUMMARY | 2022-08-17 08:42 | XMS_ITS | Continuity of Care Document ---
Author Name Unknown Organization [facility] Address [address] [place] [address], [address] [place] [address]- Care Team Providers Care Building Maintenance Engineer Name Role Phone Louisa LANDRUM, Taras Fuentes Primary Care Physician Encounter [facility] Date(s): 11/08/19 - 12/08/19 [facility] [address] [place] [address] Drive, [address] [place] [address]- [facility] Allergies, Adverse Reactions, Alerts Substance Reaction Severity [...] toxoids (Td) 08/03/05 Given 1Result Comment: [12/07/2017] [id number] 2Result Comment: [12/21/2016] [facility]: 69094-287-63 3Result Comment: [06/10/2015] #3 4Admin Note: per [...] 07/07/2012:36:00 EDT, Aerosol, Route to Pharmacy Electronically, NCPDP_[id number], [facility], 160, [...] 60 capsule, 5 Refills, Maintenance, 07/30/19 10:21:00EDT, [facility], 160, [...] 11:32:00 EST, Aerosol, Route to Pharmacy Electronically, NCPDP_[id number], [facility] - [...] 07/08/19 13:36:00 EDT, Route to Pharmacy Electronically, NCPDP_[id number], [facility], 160, [...] perst 3folowed by mental health;recent hospitalization 4gyn 85540 6testing negative insulinoma 7likley dumping sydrome 8abnormal GTT ;sugar 36 two hours into test 9sees gi 10normal CT brain 11new 125.3 cm,right per ct scan recent;seeing gynecology soon;they will review 13vit d deficiency;correct 032853 15per endocrinology monitor 16correction refer GTT; 2 hour glucose 36 17refer GGT 18seeing ortho;pre op 19asma,ama neg/cerulopalsmain wnl,AAT wnl 20Negative hep A antibody positive hep B surface antibody negative antigen negative hep C, normal ferritin 21ukltrasound Social History Social History Type Response Smoking Status Never smoker entered on: 02/20/13 Sex
--- OUTSIDE RECORDS SUMMARY | 2022-08-17 08:43 | XMS_ITS | Continuity of Care Document ---
Author Name Unknown Organization [facility] [place] Address [address] [place] [address]- Care Team Providers Care Dry Press Operator Helper Name Role Phone Louisa LANDRUM, Taras Fuentes Primary Care Physician [phone] Encounter [facility] Date(s): 11/10/20 - 12/10/20 [facility] Diabetes [address] [address]- Allergies, Adverse Reactions, Alerts Substance Reaction Severity [...] toxoids (Td) 08/03/05 Given 1Result Comment: [12/07/2017] [address]-87 2Result Comment: [12/21/2016] [facility]: 56340-282-51 3Result Comment: [06/10/2015] #3 4Admin Note: per [...] Date: 12/10/20 Stop Date: 07/08/21 Status: Ordered [place] 0.65% nasal spray 2 sprays, Nares, Both, [...] 0 Refills, Maintenance, 08/27/20 9:45:00 EDT, Capsule, [facility], Partial fill [...] 11:32:00 EST, Aerosol, Route to Pharmacy Electronically, NCPDP_[id number], [facility], 160, [...] Gm, Refills 11, Route to Pharmacy Electronically, NCPDP_[id number], [facility], 158.02, cm, 11/13/20 [...] capsule, 5 Refills, Maintenance, 11/12/20 10:43:00 EDT, [facility], Partial fill [...] 1resolved after weight loss 2chronic perst 3gyn 69557 5testing negative insulinoma 6likley dumping sydrome 7abnormal GTT ;sugar 36 two hours into test 8sees gi 9normal CT brain 10new 115.3 cm,right per ct scan recent;seeing gynecology soon;they will review 12vit d deficiency;correct 427003 14per endocrinology monitor 15correction refer GTT; 2 hour glucose 36 16refer GGT 17seeing ortho;pre op 18asma,ama neg/cerulopalsmain wnl,AAT wnl 19Negative hep A antibody positive hep B surface antibody negative antigen negative hep C, normal ferritin 20ukltrasound Social History Social History Type Response Smoking Status Never smoker entered on: 02/20/13 Sex
--- OUTSIDE RECORDS SUMMARY | 2022-08-17 08:43 | XMS_ITS | Continuity of Care Document ---
Author Name Unknown Organization [facility] Address [address] [place] [address]- Care Team Providers Care Movement Therapist Name Role Phone Louisa LANDRUM, Taras Fuentes Primary Care Physician [phone] [place] [facility] [place]/17/[place] - 02/17/[address] [address] [facility] Attending Physician: Taras Jasso MD Admitting Physician: Taras Jasso MD Referring Physician: Eran SCRAP BREAKER, Sue Dahl Allergies, Adverse Reactions, Alerts Substance [...] toxoids (Td) 08/03/05 Given 1Result Comment: [12/07/2017] [address]-88 2Result Comment: [12/21/2016] [facility]: [id number] 3Result Comment: [06/10/2015] #3 4Admin Note: per [...] Tot. Refills 11, Maintenance, DX:J45.909 ASTHMA FAX [id number], 12/21/17 11:58:59 EDT, Compound Start Date: 12/21/17 [...] 14:19:44 EST, Aerosol, Route to Pharmacy Electronically, NCPDP_[id number], [facility] Start Date: 03/19/18 Status: [...] 05/12/17 8:15:18, Aerosol, Route to Pharmacy Electronically, NCPDP_[id number], [facility]... Start Date: 05/12/17 Status: Ordered tiZANidine [...] perst 3folowed by mental health;recent hospitalization 4gyn 56285 6testing negative insulinoma 7likley dumping sydrome 8abnormal GTT ;sugar 36 two hours into test 9sees gi 10normal CT brain 11new 125.3 cm,right per ct scan recent;seeing gynecology soon;they will review 13vit d deficiency;correct 495575 15per endocrinology monitor 16correction refer GTT; 2 hour glucose 36 17refer GGT 18seeing ortho;pre op 19asma,ama neg/cerulopalsmain wnl,AAT wnl 20Negative hep A antibody positive hep B surface antibody negative antigen negative hep C, normal ferritin 21ukltrasound Social History Social History Type Response Smoking Status Never smoker entered on: 02/20/13 Sex
--- OUTSIDE RECORDS SUMMARY | 2022-08-17 08:43 | XMS_ITS | Continuity of Care Document ---
Author Name Unknown Organization [facility] Address [address] [place] [address]- Care Team Providers Care Superintendent Commissary Name Role Phone Louisa LANDRUM, Taras Fuentes Primary Care Physician Encounter [facility] Date(s): 05/03/20 - 05/04/[address] [address]- Discharge Disposition: A-D/C Home Attending Physician: Jane Arcos MD Admitting Physician: Jane Arcos MD Referring Physician: Not on Staff, Referring [...] toxoids (Td) 08/03/05 Given 1Result Comment: [12/07/2017] [address]-96 2Result Comment: [12/21/2016] [facility]: [id number] 3Result Comment: [06/10/2015] #3 4Admin Note: per [...] 03/18/20 10:49:00 EST, Route to Pharmacy Electronically, [facility], 160.02, cm, 03/18/20 7:48:00 [...] 05/01/20 9:35:00 EST, Route to Pharmacy Electronically, [facility], 160.02, cm, 05/01/20 9:18:00 EST, Hei... [...] 05/29/19 13:36:00... Start Date: 08/15/19 Status: Ordered MorPHINE Inj 4 mg, Injection, IV Push Slowly, Once, STAT, 05/03/20 22:05:00 EST, Stop date 05/03/20 22:05:00 EST Start Date: 05/03/20 Stop Date: 05/03/20 Status: Completed ondansetron 4 mg oral tablet, disintegrating 1 [...] 11:32:00 EST, Aerosol, Route to Pharmacy Electronically, NCPDP_[id number], [facility], 160, cm, 04/29/19 10:47:00 EST, Height... Start Date: 04/29/19 Status: Ordered Symbicort 160mcg/4.5mcg Inhaler 2, puffs, Inhalation, 2 times a day, use with spacer chamber, # 1 each, Refills 11, Tot. Refills 11, Maintenance, 07/08/19 13:36:00 EDT, Route to Pharmacy Electronically, NCPDP_[id number], [facility], 160, cm, 07/08/19 13:03:00 ED... Start Date: 07/08/19 Status: Ordered Topamax 50 mg oral tablet See Instructions, take 1 tab in am and 2 tab at bedtime. If AM dose causes bad sedation, add to HS dose., # 90 tablet, 6 Refills, Maintenance, 03/12/20 11:09:00 EST, Tablet, [facility] [...] 6 Refills, Soft Stop, 03/12/20 11:04:00 EST, [facility] [...] perst 3folowed by mental health;recent hospitalization 4gyn 67674 6testing negative insulinoma 7likley dumping sydrome 8abnormal GTT ;sugar 36 two hours into test 9sees gi 10normal CT brain 11new 125.3 cm,right per ct scan recent;seeing gynecology soon;they will review 13vit d deficiency;correct 094135 15per endocrinology monitor 16correction refer GTT; 2 hour glucose 36 17refer GGT 18seeing ortho;pre op 19asma,ama neg/cerulopalsmain wnl,AAT wnl 20Negative hep A antibody positive hep B surface antibody negative antigen negative hep C, normal ferritin 21ukltrasound Vital Signs Most recent to oldest [Reference Range]: 1 2 3 Oxygen Saturation [94-100 %] 99 % (05/04/20 1:40 AM) 98 % (05/03/20 9:56 PM) 98 % (05/03/20 8:58 PM) Pulse Rate [55-90 bpm] 62 bpm (05/04/20 1:40 AM) 67 bpm (05/03/20 9:56 PM) 88 bpm (05/03/20 8:58 PM) Blood Pressure [90-138/55-84 mm Hg] 90/57mm Hg (05/04/20 1:40 AM) 102/64mm Hg (05/03/20 10:05 PM) 95/59mm Hg (05/03/20 9:56 PM) Respiratory Rate [16-30 br/min] 15 br/min *L* (05/04/20 1:40 AM) 20 br/min (05/03/20 10:16 PM) 22 br/min (05/03/20 9:56 PM) Temperature [96.8-100.4 DegF] 97.6 DegF (05/04/20 1:40 AM) 98.1 DegF (05/03/20 9:56 PM) 98.2 DegF (05/03/20 8:58 PM) Mode of Delivery (Oxygen) Room air (05/04/20 1:40 AM) Room air (05/03/20 9:56 PM) Room air (05/03/20 8:58 PM) Blood pressure sites Arm, right (05/04/20 1:40 AM) Arm, left (05/03/20 10:05 PM) Arm, left (05/03/20 9:56 PM) Temperature Route Oral (05/04/20 1:40 AM) Oral (05/03/20 9:56 PM) Oral (05/03/20 8:58 PM) Social History Social History Type Response Smoking Status Never smoker entered on: 02/20/13 Sex
--- OUTSIDE RECORDS SUMMARY | 2022-08-17 08:43 | XMS_ITS | Continuity of Care Document ---
Author Name Unknown Organization [facility] Address [address] [place] [address]- Care Team Providers Care Senior Electrical Designer Name Role Phone Louisa LANDRUM, Taras Fuentes Primary Care Physician [phone] [place] [facility] [place] - 09/09/[address] [address]- Attending Physician: Bradley Herrera NP Admitting Physician: Bradley Herrera NP Referring Physician: Bradley Herrera NP Allergies, Adverse Reactions, [...] toxoids (Td) 08/03/05 Given 1Result Comment: [12/07/2017] [id number] 2Result Comment: [12/21/2016] [facility]: [id number] 3Result Comment: [06/10/2015] #3 4Admin Note: per pt 5Admin Note: given in clinic Medications acarbose 50 mg oral tablet 1 tablet = 50 mg, By Mouth, 3 times a day, Take 3 times daily with meals. E11.65, # 90 tablet, 5 Refills, Maintenance, 07/13/20 16:29:00 EDT, Tablet, [facility], Partial [...] 30 tablet, 5 Refills, Maintenance, 07/22/20 8:03:00EDT, [facility], Partial fill upon [...] 0 Refills, Maintenance, 08/27/20 9:45:00 EDT, Capsule, [facility], Partial fill [...] 11:32:00 EST, Aerosol, Route to Pharmacy Electronically, NCPDP_[id number], [facility], 160, [...] 6 Refills, Maintenance, 08/04/20 11:44:00 EDT, Tablet, [facility], 158.02, cm, 07/06/20 6:49:00 EDT, Height, [...] 6 Refills, Soft Stop, 08/04/20 11:37:00 EDT, [facility], Partial fill [...] 1resolved after weight loss 2chronic perst 3gyn [address]76 5testing negative insulinoma 6likley dumping sydrome 7abnormal GTT ;sugar 36 two hours into test 8sees gi 9normal CT brain 10new 115.3 cm,right per ct scan recent;seeing gynecology soon;they will review 12vit d deficiency;correct 694942 14per endocrinology monitor 15correction refer GTT; 2 hour glucose 36 16refer GGT 17seeing ortho;pre op 18asma,ama neg/cerulopalsmain wnl,AAT wnl 19Negative hep A antibody positive hep B surface antibody negative antigen negative hep C, normal ferritin 20ukltrasound Social History Social History Type Response Smoking Status Never smoker entered on: 02/20/13 Sex
--- OUTSIDE RECORDS SUMMARY | 2022-08-17 08:43 | XMS_ITS | Continuity of Care Document ---
Author Name Unknown Organization [facility] Address [address] [place] [address]- Care Team Providers Care Rivet Tester Name Role Phone Louisa LANDRUM, Taras Fuentes Primary Care Physician Encounter [facility] [place] Date(s): 09/27/19 - 10/27/19 [facility] [address] [place] [address]- [facility] Allergies, Adverse Reactions, Alerts Substance [...] toxoids (Td) 08/03/05 Given 1Result Comment: [12/07/2017] [address]-37 2Result Comment: [12/21/2016] [facility]: 68623-056-00 3Result Comment: [06/10/2015] #3 4Admin Note: per [...] 07/07/2012:36:00 EDT, Aerosol, Route to Pharmacy Electronically, NCPDP_[id number], [facility], 160, cm, 07/08/19 13:03:00 EDT, Height, [...] 5 Refills, Maintenance, 07/30/19 10:21:00EDT, [facility], 160, cm, 07/08/19 13:03:00 EDT, Height, 56.5, kg, 05/29/19 13:36:00 EDT, Dry Weight Start Date: 07/30/19 Status: Ordered eletriptan 40 mg oral tablet 1 tablet = 40 mg, By Mouth, Daily, PRN for migraine headache, # 9 tablet, 5 Refills, Soft Stop, 07/16/19 9:23:00 EDT, Tablet, [facility], she has tried sumatriptan and rizatriptan. if insurance still declines let me know which I c... Start Date: 07/16/19 Stop Date: 01/12/20 Status: Ordered famotidine 20 mg oral tablet 20 mg, 1, tablet, By Mouth, Daily at bedtime, # 30 tablet, Refills 5, Tot. Refills 5, Maintenance, 05/17/19 12:02:00 EDT, Route to Pharmacy Electronically, [facility], 160, cm, 05/16/19 10:27:00 EDT, Height, 62.9, kg, 05/12/19 9:1... Start Date: 05/17/19 Status: Ordered famotidine 40 mg oral tablet 1/2 tablet, By Mouth, Daily at bedtime, famotidine 20mg backordered. please take 1/2 tab daily, # 30 each, 1 Refills, Maintenance, 07/30/19 10:21:00 EDT, [facility], 160, cm, 07/08/19 13:03:00 EDT, Height, [...] 10/06/19 21:07:00 EDT, DIS Tablet, [facility] Start Date: 10/06/19 Stop Date: 10/09/19 Status: Ordered ProAir HFA 90 mcg/inh inhalation aerosol with adapter 2, puffs, Inhalation, Every 4 hours, PRN, # 8.5 Gm, Refills 2, Tot. Refills 2, Maintenance, 04/29/19 11:32:00 EST, Aerosol, Route to Pharmacy Electronically, NCPDP_[id number], [facility], 160, [...] 07/08/19 13:36:00 EDT, Route to Pharmacy Electronically, NCPDP_[id number], [facility], 160, cm, 07/08/19 13:03:00 ED... Start Date: 07/08/19 Status: Ordered Topamax 50 mg oral tablet 1 tablet = 50 mg, By Mouth, Daily at bedtime, after weaning off zonegran, take 50mg at HS for 2 weeks then increase to 100mg at HS, # 30 tablet, 6 Refills, Maintenance, 02/11/20 10:51:00 EST, Tablet,[facility], weaning zonegran o... Start Date: 02/11/20 Stop Date: 09/08/20 Status: Ordered Topamax 50 mg oral tablet 1 tablet = 50 mg, By Mouth, Daily at bedtime, for 30 days, after weaning off zonegran, take 50mg atHS for 2 weeks then increase to 100mg at HS, # 30 tablet, 6 Refills, Hard Stop 02/11/20 10:51:00 EST, 07/16/19 10:51:00 EDT, Tablet, [facility]... Start Date: 07/16/19 Stop Date: 02/11/20 Status: Ordered Zofran 4 mg oral tablet 1 tablet = 4 mg, By Mouth, Every 8 hours, PRN Nausea & Vomiting, # 30 tablet, 0 Refills, Maintenance, 09/30/19 11:23:00 EDT, [facility], 160.02, cm, 09/24/19 15:31:00 EDT, Height, [...] perst 3folowed by mental health;recent hospitalization 4gyn 23656 6testing negative insulinoma 7likley dumping sydrome 8abnormal GTT ;sugar 36 two hours into test 9sees gi 10normal CT brain 11new 125.3 cm,right per ct scan recent;seeing gynecology soon;they will review 13vit d deficiency;correct 885393 15per endocrinology monitor 16correction refer GTT; 2 hour glucose 36 17refer GGT 18seeing ortho;pre op 19asma,ama neg/cerulopalsmain wnl,AAT wnl 20Negative hep A antibody positive hep B surface antibody negative antigen negative hep C, normal ferritin 21ukltrasound Social History Social History Type Response Smoking Status Never smoker entered on: 02/20/13 Sex
--- OUTSIDE RECORDS SUMMARY | 2022-08-17 08:43 | XMS_ITS | Continuity of Care Document ---
Author Name Unknown Organization [facility] Address [address] [place] [address]- Care Team Providers Care Field Scout Name Role Phone Louisa LANDRUM, Taras Fuentes Primary Care Physician [place] [facility] [place] 06/11/20 [facility] [address] [place] [address]- Attending Physician: Konrad Curtis Admitting Physician: Konrad [...] toxoids (Td) 08/03/05 Given 1Result Comment: [12/07/2017] [id number] 2Result Comment: [12/21/2016] [facility]: [id number] 3Result Comment: [06/10/2015] #3 4Admin Note: per [...] 11:32:00 EST, Aerosol, Route to Pharmacy Electronically, NCPDP_[id number], [facility], [...] perst 3folowed by mental health;recent hospitalization 4gyn 155[address] 6testing negative insulinoma 7likley dumping sydrome 8abnormal GTT ;sugar 36 two hours into test 9sees gi 10normal CT brain 11new 125.3 cm,right per ct scan recent;seeing gynecology soon;they will review 13vit d deficiency;correct 045396 15per endocrinology monitor 16correction refer GTT; 2 hour glucose 36 17refer GGT 18seeing ortho;pre op 19asma,ama neg/cerulopalsmain wnl,AAT wnl 20Negative hep A antibody positive hep B surface antibody negative antigen negative hep C, normal ferritin 21ukltrasound Social History Social History Type Response Smoking Status Never smoker entered on: 02/20/13 Sex
--- OUTSIDE RECORDS SUMMARY | 2022-08-17 08:43 | XMS_ITS | Continuity of Care Document ---
Author Name Unknown Organization [facility] Address [address] [place] [address] sandi, [address] [place] [address]- Care Team Providers Care Case Management Coordinator Name Role Phone Eran FIELD ASSEMBLY SUPERVISOR, Sue Dahl Primary Care Physician [facility]counter [facility] Date(s): 12/07/21 - 01/06/22 [facility] [address] [place] [address] Drive, [address] [place] [address]- Allergies, Adverse Reactions, Alerts Substance Reaction Severity Status Dust Allergy to pollen Active Pollen seasonal allergies respiratory symptoms Active Incruse Ellipta 1 lightheaded and migraine Active 1dizzy Immunizations Given and Recorded Vaccine Date Status Refusal Reason [id number] 12y+ bivalent booster vax 1 12/24/21 Given [...] vaccine, inactivated 02/08/11 Give n SARS-CoV-2 mRNA ([id number]) vax 05/01/21 Recorded zoster vaccine, inactivated 11/03/20 [...] tetanus-diphtheria toxoids (Td) 08/03/05 Given 1Result Comment: [id number] 2Result Comment: [id number] 3Result Comment: [12/07/2017] [address]-12 4Result Comment: [12/21/2016] [facility]: [id number] 5Result Comment: [06/10/2015] #3 6Admin Note: per [...] 8:01:00 EDT, Height, 71.5, kg, 09/01/21 16:21:00 EDTMrak Start Date: 11/15/21 Status: Ordered montelukast 10 [...] 11/23/21 19:57:00 EDT, Route to Pharmacy Electronically, NCPDP_[id number], [facility], 158, cm, [...] 06/18/15 Active H/O laparoscopic adjustable gastric banding 2008/removed FEB 2021 2 Confirmed Active History of cholecystectomy [...] Active Vitamin D deficiency Confirmed Active 1gyn 54257 3testing negative insulinoma 4likley dumping sydrome 5abnormal GTT ;sugar 36 two hours into test 6sees gi 7normal CT brain 8new 9resolved after weight loss 10chronic perst 115.3 cm,right per ct scan recent;seeing gynecology soon;they will review 12vit d deficiency;correct 812724 14per endocrinology monitor 15correction refer GTT; 2 hour glucose 36 16refer GGT 17seeing ortho;pre op 18asma,ama neg/cerulopalsmain wnl,AAT wnl 19Negative hep A antibody positive hep B surface antibody negative antigen negative hep C, normal ferritin 20ukltrasound Social History Social History Type Response Smoking Status Never smoker entered on: 02/20/13 Sex Patient Care team information Personnel Name: Sue Barillas NP Address: Address: [address] [place] [id number]
--- OUTSIDE RECORDS SUMMARY | 2022-08-17 08:43 | XMS_ITS | Continuity of Care Document ---
Author Name Unknown Organization [facility] Address [address] [place] [address]- Care Team Providers Care Receptionist Nurse Name Role Phone Louisa LANDRUM, Taras Fuentes Primary Care Physician Encounter [facility] Date(s): 03/03/21 - 04/02/21 [facility] [address] [place] [address]- [place] Allergies, Adverse Reactions, Alerts Substance Reaction [...] toxoids (Td) 08/03/05 Given 1Result Comment: [12/07/2017] [address]-93 2Result Comment: [12/21/2016] [facility]: [id number] 3Result Comment: [06/10/2015] #3 4Admin Note: per [...] 3 Refills, Maintenance, 02/03/21 8:34:00 EST, Tablet, [facility], Partial fill upon patient request if the prescript... Start Date: 02/03/21 Status: Ordered acarbose 50 mg oral tablet 1 tablet = 50 mg, By Mouth, 3 times a day, Take 1 tab (plus 1 25mg tab), 3 times daily with meals.,# 270 tablet, 3 Refills, Maintenance, 02/03/21 8:34:00 EST, Tablet, [facility], Partial fill upon patient request if the prescript... Start Date: 02/03/21 Status: Ordered Baqsimi One Pack 3 mg nasal powder See Instructions, 3 mg Once intrasnasally for severe hypoglycemia, # 2 each, 3 Refills, Soft Stop, 08/28/20 10:36:00 EDT, [facility], Partial fill upon [...] 5 Refills, Maintenance, 11/06/20 10:28:00 EDT, Tablet, [facility], Replaces loratidine, 158.02, cm, 11/06/20 10:04:00 EDT, Height,67, kg, 09/11/19 11:20:00 EDT, Dry Weight Start Date: 11/06/20 Status: Ordered cholestyramine 4 gm/5 gm oral powder for reconstitution 1 pack/packet, By Mouth, Daily, # 30 pack/packet, 5 Refills, Maintenance, 03/03/21 16:42:00 EST, REC Powder, [facility], Partial fill upon [...] 0 Refills, Soft Stop, 03/16/21 16:05:00 EST, [facility], Partial fill upon patient request if the prescription is for a schedule II opioid drug., 158, albertina, 03/11/21 9:1... Start Date: 03/16/21 Status: Ordered Emgality Prefilled Pen 120 mg/mL subcutaneous solution = 120 mg, Subcutaneous Injection, Once, Maintenance Dose, # 1 kit, 5 Refills, Soft Stop, 03/16/21 16:05:00 EST, [facility], Partial fill upon patient request if the prescription is for a schedule II opioid drug., 158, cm, 03/11/21... Start Date: 03/16/21 Status: Ordered EPINEPHrine 1 mg/mL injectable solution 0.3 mL = 0.3 mg, Intramuscular, Once, # 1 mL, 1 Refills, Soft Stop, 03/08/21 15:07:00 EST, Solution, [facility], Partial fill upon [...] 0 Refills, Maintenance, 11/03/20 7:49:00 EDT, Tablet, [facility], Partial fill upon [...] 6 Refills, Maintenance, 12/10/20 12:36:00 EDT,DIS Tablet, [facility], has t... Start Date: 12/10/20 Stop Date: 07/08/21 Status: Ordered [place] 0.65% nasal spray 2 sprays, Nares, Both, 4 times a day, # 1 each, 0 Refills, Maintenance, 10/30/20 11:34:00 EDT, [facility], Partial fill upon patient request if the prescription is for a scheduleII opioid drug., 2 sprays Nares, Both 4 times a day... Start Date: 10/30/20 Status: Ordered ProAir HFA 90 mcg/inh inhalation aerosol with adapter 2, puffs, Inhalation, Every 4 hours, PRN, # 8.5 Gm, Refills 1, Tot. Refills 1, Maintenance, 01/06/21 8:26:00 EDT, Aerosol, Route to Pharmacy Electronically, NCPDP_[id number], [facility], 158.02, cm, 01/06/21 8:03:00 EDT, [...] Gm, Refills 11, Route to Pharmacy Electronically, NCPDP_[id number], [facility], 158.02, cm, 11/13/20 8:38:00 EDT, [...] mL, 1 Refills, Maintenance, 01/06/21 13:36:00 EDT, [facility], Partialfill upon patient request if [...] 1resolved after weight loss 2chronic perst 3gyn 05238 5testing negative insulinoma 6likley dumping sydrome 7abnormal GTT ;sugar 36 two hours into test 8sees gi 9normal CT brain 10new 115.3 cm,right per ct scan recent;seeing gynecology soon;they will review 12vit d deficiency;correct 238033 14per endocrinology monitor 15correction refer GTT; 2 hour glucose 36 16refer GGT 17seeing ortho;pre op 18asma,ama neg/cerulopalsmain wnl,AAT wnl 19Negative hep A antibody positive hep B surface antibody negative antigen negative hep C, normal ferritin 20ukltrasound Social History Social History Type Response Smoking Status Never smoker entered on: 02/20/13 Sex
--- OUTSIDE RECORDS SUMMARY | 2022-08-17 08:43 | XMS_ITS | Continuity of Care Document ---
Author Name Unknown Organization [facility] Address [address] [place] [address]- Care Team Providers Care School Transportation Director Name Role Phone Louisa LANDRUM, Taras Fuentes Primary Care Physician [phone] Encounter [facility] [id number] Date(s): 05/29/19 - 05/29/[address] [address]- [facility] Discharge Disposition: A-D/C Home Attending Physician: Rajeev Schmidt MD Admitting Physician: Rajeev Schmidt MD Referring Physician: Not on Staff, Referring [...] toxoids (Td) 08/03/05 Given 1Result Comment: [12/07/2017] [id number] 2Result Comment: [12/21/2016] [facility]: [id number] 3Result Comment: [06/10/2015] #3 4Admin Note: per [...] Electronically, [facility], 160, cm, 05/16/19 10:27:00 EDT, Height, [...] EDT, Tablet Start Date: 05/24/18 Status: Ordered Levaquin 750 mg oral tablet = 500 mg, By Mouth, Every 24 hours, 0 Refills, Maintenance, 05/29/19 10:56:00 EDT Start Date: 05/29/19 Status: Ordered loratadine 10 mg oral tablet [...] Stop, 05/23/19 9:23:00 EDT, Tablet, [facility], 160, cm, 05/16/19 10:27:00 EDT, Height, 62.9, kg, 05/12/19 9:16:00 EDT, Dry Weight Start Date: 05/23/19 Status: Ordered ProAir HFA 90 mcg/inh inhalation aerosol with adapter 2, puffs, Inhalation, Every 4 hours, PRN, # 8.5 Gm, Refills 2, Tot. Refills 2, Maintenance, 04/29/19 11:32:00 EST, Aerosol, Route to Pharmacy Electronically, NCPDP_[id number], [facility], 160, [...] Maintenance, 04/12/19 12:59:00 EST, Capsule, [facility], 160, cm, 04/11/19 12:38:00 [...] perst 3folowed by mental health;recent hospitalization 4gyn 65115 6testing negative insulinoma 7likley dumping sydrome 8abnormal GTT ;sugar 36 two hours into test 9sees gi 10normal CT brain 11new 125.3 cm,right per ct scan recent;seeing gynecology soon;they will review 13vit d deficiency;correct 025618 15per endocrinology monitor 16correction refer GTT; 2 hour glucose 36 17refer GGT 18seeing ortho;pre op 19asma,ama neg/cerulopalsmain wnl,AAT wnl 20Negative hep A antibody positive hep B surface antibody negative antigen negative hep C, normal ferritin 21ukltrasound Vital Signs Most recent to oldest [Reference Range]: 1 Height 160 cm (05/29/19 1:36 PM) Weight 56.5 kg (05/29/19 1:36 PM) Oxygen Saturation [94-100 %] 99 % (05/29/19 1:36 PM) Pulse Rate [55-90 bpm] 72 bpm (05/29/19 1:36 PM) Blood Pressure [90-138/55-84 mm Hg] 125/ 89mm Hg (05/29/19 1:36 PM) Respiratory Rate [16-30 br/min] 16 br/mi n (05/29/19 1:36 PM) Temperature [96.8-100.4 DegF] 98.4 DegF (05/29/19 1:36 PM) Mode of Delivery (Oxygen) Room air (05/29/19 1:36 PM) Temperature Route Oral (05/29/19 1:36 PM) Dry Weight 56.5 kg (05/29/19 1:36 PM) Weight Obtained Via Standing scale (05/29/19 1:36 PM) Social History Social History Type Response Smoking Status Never smoker entered on: 02/20/13 Sex
--- OUTSIDE RECORDS SUMMARY | 2022-08-17 08:43 | XMS_ITS | Continuity of Care Document ---
Author Name Unknown Organization [facility] Address [address] [place] [address] ve [address] [place] [address]- Care Team Providers Care Billing Rep Name Role Phone Eran LEGAL SUPPORT MANAGER, Sue Dahl Primary Care Physician [facility]counter [facility] Date(s): 04/11/22 - 05/11/22 [facility] [address] [place] [address]- Allergies, Adverse Reactions, Alerts Substance Reaction Severity Status Dust Allergy to pollen Active Pollen seasonal allergies respiratory symptoms Active Incruse Ellipta 1 lightheaded and migraine Active 1dizzy Immunizations Given and Recorded Vaccine Date Status Refusal Reason [id number] 12y+ bivalent booster vax 1 12/24/21 Given [...] vaccine, inactivated 02/08/11 Give n SARS-CoV-2 mRNA ([id number]) vax 05/01/21 Recorded zoster vaccine, inactivated 11/03/20 [...] tetanus-diphtheria toxoids (Td) 08/03/05 Given 1Result Comment: [id number] 2Result Comment: [id number] 3Result Comment: [12/07/2017] [address]-00 4Result Comment: [12/21/2016] [facility]: [id number] 5Result Comment: [06/10/2015] #3 6Admin Note: per [...] Gm, 5 Refills, Maintenance, 03/09/22 11:21:00 EST, [facility], 17, INHALE TWO PUFFS BY MOUTH [...] 1,200 mL, 5 Refills, Maintenance,04/29/22 9:16:00 EST, [facility] #[id number], Partial fill upon patient request if the [...] 2 Refills, Soft Stop, 03/17/22 8:08:00 EST, [facility], requesting 3 month supply for cheaper [...] 6 Refills, Maintenance, 01/31/22 14:05:00 EST, Suspension, [facility], Partial fill upon patient request if the prescription is for a schedule II opioid drug., 163, cm, 01/18... Start Date: 01/31/22 Stop Date: 08/29/22 Status: Ordered Fiber Choice 1.5 g oral tablet, chewable 1 tablet = 1.5 Gm, Chew, 3 times a day, # 90 tablet, 0 Refills, Maintenance, 04/09/22 15:16:00 EST,Chew Tablet, [facility][id number], Partial fill upon patient request if the [...] Refills, Maintenance, 04/09/22 15:16:00 EST, REC Powder, [facility] #[id number], Partial fill upon patient request if the [...] each, 0 Refills, Maintenance, 04/06/22 15:29:00 EST, [facility] #[id number], Partial fi... Start Date: 04/06/22 Status: Ordered Reclast = 5 mg, IV Infusion, Once, 0 Refills, Maintenance, 11/06/20 10:24:00 EDT, administered at [facility] 10/2020 Start Date: 11/06/20 Status: Ordered Stool Softener + Stimulant Laxative 50 mg-8.6 mg oral capsule 1 capsule, By Mouth, Daily in PM, # 60 capsule, 0 Refills, Maintenance, 04/09/22 15:17:00 EST, Capsule, [facility] #[id number], Partial fill upon patient request if the prescription is for a schedule II opioid drug., 1 capsule By Mouth Daily in P... Start Date: 04/09/22 Status: Ordered Symbicort 160mcg/4.5mcg Inhaler 2, puffs, Inhalation, 2 times a day, rinse mouth and throat after use, # 10.2 Gm, Refills 3, Tot. Refills 3, Maintenance, 11/23/21 19:57:00 EDT, Route to Pharmacy Electronically, NCPDP_[id number], [facility], 158, cm, [...] Active Vitamin D deficiency Confirmed Active 1gyn 51186 3testing negative insulinoma 4likley dumping sydrome 5abnormal GTT ;sugar 36 two hours into test 6normal CT brain 7new 8resolved after weight loss 9chronic perst 105.3 cm,right per ct scan recent;seeing gynecology soon;they will review 11vit d deficiency;correct 268975 13per endocrinology monitor 14correction refer GTT; 2 [...] Care Nurse Name: Sue Barillas NP Position: [facility] PCO Associate Professional Member Role: PCP Address: Address: [address] [place] [id number] Name: Andria Guadalupe RN Position: [facility] SN RN Member Role: Primary Care Nurse Name: Liz Martin RN Position: [facility] RN Member Role: Primary Care Nurse Name: Ambreen Mcmahon RN Position: [facility] RN Member Role: Primary Care Nurse Name: Irais Grijalva RN Position: [facility] RN Member Role: Primary Care Nurse Name: Autumn Martinez RN Position: [facility] SN RN Member Role: Primary Care Nurse Name: Liz English RN Position: [facility] RN Member Role: Primary Care Nurse Name: Dora Williamson RN Position: [facility] RN Member Role: Primary Care Nurse Care Team Related Persons Name: KHUSHI CUNNINGHAM Address: home [address] [place] [address] Name: BHUPINDER VENEGAS Address: home [address] [place] [address] Name: FELIPE FLORES Address: home [address] [place] [address] Name: ARNAV FLORES Address: home [address] [place] [address] Name: IRINA FLORES Address: home [address] [place] [address] Name: RUSLAN FLORES Address: home [address] [place] [address] Name: KAISER PLUNKETT Address: home [address] [place] [address]
--- OUTSIDE RECORDS SUMMARY | 2022-08-17 08:43 | XMS_ITS | Continuity of Care Document ---
Author Name Unknown Organization [facility] Address [address] [place] [address]- Care Team Providers Care Home Mission Worker Name Role Phone Louisa LANDRUM, Taras Fuentes Primary Care Physician [facility] Date(s): 11/20/19 - 12/20/19 [facility] [address] [place] [address]- [facility] Allergies, Adverse Reactions, Alerts Substance Reaction [...] toxoids (Td) 08/03/05 Given 1Result Comment: [12/07/2017] [id number] 2Result Comment: [12/21/2016] [facility]: [id number] 3Result Comment: [06/10/2015] #3 4Admin Note: per [...] 0 Refills, Maintenance, 07/03/19 13:59:00 EDT, Solution, [facility], 160, cm, 05/29/19 13:36:00 EDT, Height, 56.5, kg, 03... Start Date: 07/03/19 Status: Ordered albuterol CFC free 90 mcg/inh inhalation aerosol 2, puffs, Inhalation, 4 times a day, PRN, # 25 Gm, Refills 0, Tot. Refills 0, Maintenance, 07/07/2012:36:00 EDT, Aerosol, Route to Pharmacy Electronically, NCPDP_[id number], [facility], 160, cm, 07/08/19 13:03:00 [...] 60 capsule, 5 Refills, Maintenance, 07/30/19 10:21:00EDT, [facility], 160, cm, 07/08/19 13:03:00 EDT, Height, 56.5, kg, 05/29/19 13:36:00 EDT, Dry Weight Start Date: 07/30/19 Status: Ordered eletriptan 40 mg oral tablet 1 tablet = 40 mg, By Mouth, Daily, PRN for migraine headache, # 9 tablet, 5 Refills, Soft Stop, 07/16/19 9:23:00 EDT, Tablet, [facility], she has tried sumatriptan [...] 02/25/19 16:55:00 EST, Route to Pharmacy Electronically, [facility], 158, cm, 02/14/19 7:55:00 EST, Height, 61.9, kg, 02/12/19 10:17:00... Start Date: 02/25/19 Status: Ordered montelukast 10 mg oral tablet 10 mg, 1, tablet, By Mouth, Daily in PM, # 90 tablet, Refills 3, Tot. Refills 3, Maintenance, 08/15/19 16:21:00 EDT, Route to Pharmacy Electronically, [facility], 160, cm, 08/15/19 13:45:00 EDT, Height, 56.5, kg, 05/29/19 13:36:00... Start Date: 08/15/19 Status: Ordered NuLYTELY with Flavor Packs oral powder for reconstitution 240 mL, By Mouth, Every 10 minutes, # 4,000 mL, 0 Refills, Maintenance, 11/15/19 10:29:00 EDT, REC Powder, [facility], 240 mL By Mouth Every 10 minutes, 160.02, cm, 11/15/19 10:05:00 EDT, Height, 67, kg, 09/11/19 11:20:00 EDT, Dry... Start Date: 11/15/19 Status: Ordered ondansetron 4 mg oral tablet, disintegrating 1 tablet = 4 mg, By Mouth, Every 8 hours, PRN as needed for nausea/vomiting, # 9 tablet, 0 Refills,Maintenance, 10/06/19 21:07:00 EDT, DIS Tablet, [facility] Start Date: 10/06/19 Stop Date: 10/09/19 Status: Ordered ProAir HFA 90 mcg/inh inhalation aerosol with adapter 2, puffs, Inhalation, Every 4 hours, PRN, # 8.5 Gm, Refills 2, Tot. Refills 2, Maintenance, 04/29/19 11:32:00 EST, Aerosol, Route to Pharmacy Electronically, NCPDP_[id number], [facility], 160, [...] 07/08/19 13:36:00 EDT, Route to Pharmacy Electronically, NCPDP_[id number], [facility], 160, cm, 07/08/19 13:03:00 ED... Start Date: 07/08/19 Status: Ordered Topamax 50 mg oral tablet 2 tablet = 100 mg, By Mouth, Daily at bedtime, # 60 tablet, 6 Refills, Maintenance, 11/04/19 11:08:00 EDT, Tablet, [facility], weaning zonegran off [...] Refills, Soft Stop, 11/25/19 21:26:00 EDT, Tablet, [facility], 160.02, cm, 11/15/19 10:05:00 EDT, Height,... Start Date: 11/25/19 Status: Ordered Zofran 4 mg oral tablet 1 tablet = 4 mg, By Mouth, Every 8 hours, PRN Nausea & Vomiting, # 30 tablet, 0 Refills, Maintenance, 09/30/19 11:23:00 EDT, [facility], 160.02, cm, 09/24/19 15:31:00 [...] perst 3folowed by mental health;recent hospitalization 4gyn 43884 6testing negative insulinoma 7likley dumping sydrome 8abnormal GTT ;sugar 36 two hours into test 9sees gi 10normal CT brain 11new 125.3 cm,right per ct scan recent;seeing gynecology soon;they will review 13vit d deficiency;correct 943505 15per endocrinology monitor 16correction refer GTT; 2 hour glucose 36 17refer GGT 18seeing ortho;pre op 19asma,ama neg/cerulopalsmain wnl,AAT wnl 20Negative hep A antibody positive hep B surface antibody negative antigen negative hep C, normal ferritin 21ukltrasound Social History Social History Type Response Smoking Status Never smoker entered on: 02/20/13 Sex
--- OUTSIDE RECORDS SUMMARY | 2022-08-17 08:43 | XMS_ITS | Continuity of Care Document ---
Author Name Unknown Organization [facility] Address [address] [place] [address] [address] [place] [address]- Care Team Providers Care Grain Picker Name Role Phone Eran SHIPPING CLERK CRATING, Sue Dahl Primary Care Physician Encounter [facility] Date(s): 04/06/22 - 04/13/[address] [place] [address]- Attending Physician: Avery Costello MD Allergies, Adverse Reactions, Alerts Substance Reaction Severity Status Dust Allergy to pollen Active Pollen seasonal allergies respiratory symptoms Active Incruse Ellipta 1 lightheaded and migraine Active 1dizzy Immunizations Given and Recorded Vaccine Date Status Refusal Reason [id number] 12y+ bivalent booster vax 1 12/24/21 Given [...] vaccine, inactivated 02/08/11 Give n SARS-CoV-2 mRNA ([id number]) vax 05/01/21 Recorded zoster vaccine, inactivated 11/03/20 [...] tetanus-diphtheria toxoids (Td) 08/03/05 Given 1Result Comment: [id number] 2Result Comment: 48886-318-17 3Result Comment: [12/07/2017] [address]-95 4Result Comment: [12/21/2016] [facility]: [id number] 5Result Comment: [06/10/2015] #3 6Admin Note: per [...] Gm, 5 Refills, Maintenance, 03/09/22 11:21:00 EST, [facility], 17, INHALE TWO PUFFS [...] 2 Refills, Soft Stop, 03/17/22 8:08:00 EST, [facility], requesting 3 month supply [...] 0 Refills, Maintenance, 04/09/22 15:16:00 EST,Chew Tablet, [facility] #[id number], Partial fill upon patient request if the [...] Refills, Maintenance, 04/09/22 15:16:00 EST, REC Powder, [facility] #[id number], Partial fill upon patient request if the [...] 03/24/22 14:12:00 EST, Route to Pharmacy Electronically, [facility], Partial fill upon p... Start Date: 03/24/22 Status: Ordered Readi-Cat 2 oral suspension See Instructions, Dispense 2 bottles (450ml each bottle). Drink first bottle [address] scan. Drink second bottle [address] scan[address] # 2 each, 0 Refills, Maintenance, 04/06/22 15:29:00 EST, [facility] #[id number], Partial fi... Start Date: 04/06/22 Status: Ordered Reclast = 5 mg, IV Infusion, Once, 0 Refills, Maintenance, 11/06/20 10:24:00 EDT, administered at [facility] 10/2020 Start Date: 11/06/20 Status: Ordered Stool Softener + Stimulant Laxative 50 mg-8.6 mg oral capsule 1 capsule, By Mouth, Daily in PM, # 60 capsule, 0 Refills, Maintenance, 04/09/22 15:17:00 EST, Capsule, [facility] #[id number], Partial fill upon patient request if the prescription is for a schedule II opioid drug., 1 capsule By Mouth Daily in P... Start Date: 04/09/22 Status: Ordered Symbicort 160mcg/4.5mcg Inhaler 2, puffs, Inhalation, 2 times a day, rinse mouth and throat after use, # 10.2 Gm, Refills 3, Tot. Refills 3, Maintenance, 11/23/21 19:57:00 EDT, Route to Pharmacy Electronically, NCPDP_[id number], [facility], 158, [...] Active Vitamin D deficiency Confirmed Active 1gyn 90662 3testing negative insulinoma 4likley dumping sydrome 5abnormal GTT ;sugar 36 two hours into test 6normal CT brain 7new 8resolved after weight loss 9chronic perst 105.3 cm,right per ct scan recent;seeing gynecology soon;they will review 11vit d deficiency;correct 395214 13per endocrinology monitor 14correction refer GTT; 2 hour glucose 36 15refer GGT 16seeing ortho;pre op 17asma,ama neg/cerulopalsmain wnl,AAT wnl 18Negative hep A antibody positive hep B surface antibody negative antigen negative hep C, normal ferritin 19ukltrasound Vital Signs Most recent to oldest [Reference Range]: 1 Height 158 cm (04/06/22 2:59 PM) Weight 64.9 kg (04/06/22 2:59 PM) Pulse Rate [55-90 bpm] 71 bpm (04/06/22 2:59 PM) Body Mass Index [18.5-24.99 kg/m2] 26 kg /m2 *H* (04/06/22 2:59 PM) Blood Pressure [90-138/55-84 mm Hg] 138/ 88mm Hg (04/06/22 2:59 PM) Temperature [96.8-100.4 DegF] 97.5 DegF (04/06/22 2:59 PM) Blood pressure sites Arm, left (04/06/22 2:59 PM) Temperature Route Temporal (04/06/22 2:59 PM) Weight Obtained Via Standing scale (04/06/22 2:59 PM) Social History Social History Type Response Smoking Status Never smoker entered on: 02/20/13 Sex Patient Care team information Care Team Personnel Name: Caitlyn Mcgee RN Position: [facility] RN Member Role: Primary Care Nurse Name: Sue Barillas NP Position: [facility] PCO Associate Professional Member Role: PCP Address: Address: [address] [place] [id number] Name: Andria Guadalupe RN Position: [facility] SN RN Member Role: Primary Care Nurse Name: Liz Martin RN Position: [facility] RN Member Role: Primary Care Nurse Name: Ambreen Mcmahon RN Position: [facility] RN Member Role: Primary Care Nurse Name: Irais Grijalva RN Position: [facility] RN Member Role: Primary Care Nurse Name: Autumn Martinez RN Position: [facility] SN RN Member Role: Primary Care Nurse Name: Concha Mckinley RN Position: [facility] RN Member Role: Primary Care Nurse Name: Liz English RN Position: [facility] RN Member Role: Primary Care Nurse Name: Dora Williamson RN Position: [facility] RN Member Role: Primary Care Nurse Care Team Related Persons Name: KHUSHI CUNNINGHAM Address: [address] [place] [address] Name: BHUPINDER VENEGAS Address: [address] [place] [address] Name: FELIPE FLORES Address: [address] [place], [place] Name: ARNAV FLORES Address: home [address] [place], [place] Name: IRINA FLORES Address: home [address] [place], [place] Name: RUSLAN FLORES Address: [address] [place], [place] Name: KAISER PLUNKETT Address: home [address] [place] [address]
--- OUTSIDE RECORDS SUMMARY | 2022-08-17 08:43 | XMS_ITS | Continuity of Care Document ---
Author Name Unknown Organization [facility] Address [address] [place] [address]- Care Team Providers Care Boat Ride Operator Name Role Phone Louisa LANDRUM, Taras Fuentes Primary Care Physician [phone] Encounter [facility] Date(s): 06/11/20 - 07/11/20 [facility] [address] [place] [id number] Allergies, Adverse Reactions, Alerts Substance [...] toxoids (Td) 08/03/05 Given 1Result Comment: [12/07/2017] [id number] 2Result Comment: [12/21/2016] [facility]: [id number] 3Result Comment: [06/10/2015] #3 4Admin Note: per [...] 11:32:00 EST, Aerosol, Route to Pharmacy Electronically, NCPDP_[id number], [facility] - [facility], 160, cm, [...] 1resolved after weight loss 2chronic perst 3gyn 86144 5testing negative insulinoma 6likley dumping sydrome 7abnormal GTT ;sugar 36 two hours into test 8sees gi 9normal CT brain 10new 115.3 cm,right per ct scan recent;seeing gynecology soon;they will review 12vit d deficiency;correct [id number] 14per endocrinology monitor 15correction refer GTT; 2 hour glucose 36 16refer GGT 17seeing ortho;pre op 18asma,ama neg/cerulopalsmain wnl,AAT wnl 19Negative hep A antibody positive hep B surface antibody negative antigen negative hep C, normal ferritin 20ukltrasound Social History Social History Type Response Smoking Status Never smoker entered on: 02/20/13 Sex
--- OUTSIDE RECORDS SUMMARY | 2022-08-17 08:44 | XMS_ITS | Continuity of Care Document ---
Author Name Unknown Organization [facility] ter Address [address] [place] [address]- Care Team Providers Care Seasonal Sales Associate Name Role Phone Eran PHYSICIAN RELATIONS MANAGER, Sue Dahl Primary Care Physician [phone] Encounter [facility] Date(s): 04/09/22 - 04/09/[address] [address]- Encounter Diagnosis Abdominal pain(Final) - 04/09/22 Periumbilical pain(Final) - 04/09/22 Umbilical hernia(Final) - 04/09/22 Discharge Disposition: A-D/C Home Attending Physician: Shane Magallon DO Admitting Physician: Shane Magallon DO Referring Physician: Not on Staff, Referring MD Allergies, Adverse Reactions, Alerts Substance Reaction Severity Status Dust Allergy to pollen Active Pollen seasonal allergies respiratory symptoms Active Incruse Ellipta 1 lightheaded and migraine Active 1dizzy Immunizations Given and Recorded Vaccine Date Status Refusal Reason [id number] 12y+ bivalent booster vax 1 12/24/21 Given [...] vaccine, inactivated 02/08/11 Give n SARS-CoV-2 mRNA ([id number]) vax 05/01/21 Recorded zoster vaccine, inactivated 11/03/20 [...] tetanus-diphtheria toxoids (Td) 08/03/05 Given 1Result Comment: [id number] 2Result Comment: [id number] 3Result Comment: [12/07/2017] [address]-97 4Result Comment: [12/21/2016] [facility]: [id number] 5Result Comment: [06/10/2015] #3 6Admin Note: per pt 7Admin Note: given in clinic Medications acetaminophen 500 mg oral tablet 2 tablet = 1,000 mg, By Mouth, Every 6 hours, PRN as needed for fever, # 200 tablet, 0 Refills, Maintenance, 12/03/21 10:17:00 EDT, Tablet, [facility], Partial fill upon patient request if the prescription is for a schedule II opi... Start Date: 12/03/21 Status: Ordered Albuterol (Eqv-ProAir HFA) 90 mcg/inh inhalation aerosol 2 puffs, Inhalation, Every 4 hours, PRN NEEDED FOR WHEEZING, # 8.5 Gm, 5 Refills, Maintenance, 03/09/22 11:21:00 EST, [facility], 17, INHALE TWO PUFFS BY [...] 6 Refills, Maintenance, 11/03/21 8:23:00 EDT, Tablet, [facility], 2 tablet By Mouth 2 [...] Refills, Maintenance, 11/22/21 9:49:00 EDT, CR Capsule, [facility], Partial fill upon patient request if the prescription is for a schedule II opioid... Start Date: 11/22/21 Status: Ordered Emgality Prefilled Pen 120 mg/mL subcutaneous solution = 120 mg, Subcutaneous Injection, Once, Maintenance Dose, # 3 kit, 2 Refills, Soft Stop, 03/17/22 8:08:00 EST, [facility], requesting 3 month supply for [...] 6 Refills, Maintenance, 01/31/22 14:05:00 EST, Suspension, [facility], Partial fill upon patient request if the prescription is for a schedule II opioid drug., 163, cm, 01/18... Start Date: 01/31/22 Stop Date: 08/29/22 Status: Ordered Fiber Choice 1.5 g oral tablet, chewable 1 tablet = 1.5 Gm, Chew, 3 times a day, # 90 tablet, 0 Refills, Maintenance, 04/09/22 15:16:00 EST,Chew Tablet, [facility] #[id number], Partial fill upon patient request if the [...] Refills, Maintenance, 04/09/22 15:16:00 EST, REC Powder, [facility] #[id number], Partial fill upon patient request if the prescription is for a schedule II opioid drug., 17 Gm... Start Date: 04/09/22 Status: Ordered montelukast 10 mg oral tablet 1, tablet, By Mouth, Daily in PM, # 90 tablet, Refills 1, Tot. Refills 1, Maintenance, 11/14/21 11:28:00 EDT, Route to Pharmacy Electronically, [facility], 158, cm, 11/03/21 8:01:00 EDT, Height, 71.5, kg, 09/01/21 16:21:00 EDT, Start Date: 11/14/21 Status: Ordered Nurtec ODT 75 mg oral tablet, disintegrating See Instructions, TAKE ONE TABLET DAILY NEEDED FOR migraines, DO NOT EXCEED ONE TABLET IN 24 HOURS, # 8 tablet, 6 Refills, Maintenance, 12/28/21 15:14:00 EDT, [facility], 163,cm, 12/24/21 8:20:00 EDT, Height, 67, kg, 11/26/21... Start Date: 12/28/21 Status: Ordered oxyCODONE 5 mg oral tablet 5 mg, By Mouth, Every 6 hours, PRN, Do not drive on narcotic medications., # 5 tablet, Refills 0, Tot. Refills 0, Soft Stop, Pain , Moderate, 03/24/22 14:12:00 EST, Route to Pharmacy Electronically, [facility], Partial fill upon p... Start Date: 03/24/22 Status: Ordered Readi-Cat 2 oral suspension See Instructions, Dispense 2 bottles (450ml each bottle). Drink first bottle [address] Drink second bottle [address] scan., # 2 each, 0 Refills, Maintenance, 04/06/22 15:29:00 EST, [facility] #[id number], Partial fi... Start Date: 04/06/22 Status: Ordered Reclast = 5 mg, IV Infusion, Once, 0 Refills, Maintenance, 11/06/20 10:24:00 EDT, administered at [facility] 10/2020 Start Date: 11/06/20 Status: Ordered Stool Softener + Stimulant Laxative 50 mg-8.6 mg oral capsule 1 capsule, By Mouth, Daily in PM, # 60 capsule, 0 Refills, Maintenance, 04/09/22 15:17:00 EST, Capsule, [facility] #[id number], Partial fill upon patient request if the prescription is for a schedule II opioid drug., 1 capsule By Mouth Daily in P... Start Date: 04/09/22 Status: Ordered Symbicort 160mcg/4.5mcg Inhaler 2, puffs, Inhalation, 2 times a day, rinse mouth and throat after use, # 10.2 Gm, Refills 3, Tot. Refills 3, Maintenance, 11/23/21 19:57:00 EDT, Route to Pharmacy Electronically, NCPDP_[id number], [facility], 158, cm, 11/03/21 8:0... Start Date: 11/23/21 Status: Ordered Trintellix 10 mg oral tablet 1.5 tablet = 15 mg, By Mouth, Daily, # 30 tablet, 0 Refills, Maintenance, 08/13/21 13:07:00 EDT, Tablet Start Date: 08/13/21 Status: Ordered Tylenol 325 mg oral tablet 975 mg, Tablet, By Mouth, Once, STAT, 04/09/22 10:00:00 EST, Stop date 04/09/22 10:00:00 EST Start Date: 04/09/22 Stop Date: 04/09/22 Status: Completed Vitamin B12 500 mcg/mL injectable solution monthly, 0 Refills, Maintenance, 03/22/22 11:31:00 EST, Partial fill upon patient request if the prescription is for a schedule II opioid drug. Start Date: 03/22/22 Status: Ordered ZyrTEC 10 mg oral tablet 1 tablet = 10 mg, By Mouth, Daily, Replaces Claritin. Can give 90 day supply, # 30 tablet, 5 Refills, Maintenance, 12/10/21 9:44:00 EDT, Tablet, [facility], Partial [...] gynecology soon;they will review 11vit d deficiency;correct [id number] 13per endocrinology monitor 14correction refer GTT; 2 hour glucose 36 15refer GGT 16seeing ortho;pre op 17asma,ama neg/cerulopalsmain wnl,AAT wnl 18Negative hep A antibody positive hep B surface antibody negative antigen negative hep C, normal ferritin 19ukltrasound Results Radiology Reports * Exam Date Time Procedure Performing Provider Status 04/09/22 11:[address] Abd/Pelvis W/ IV Contrast Only Mate o , Yelena; Auth (Verified) Notes: (CT Abd/Pelvis W/ IV Contrast Only) Reason For Exam: LLQ abdominal pain;Other: RESULT: CT Abd/Pelvis W/ IV Contrast Only CT Abd/Pelvis W/ IV Contrast Only Hx of Present Illness: abd pain; Reason: Other:; LLQ abdominal pain; Clinical Question(s): Appendicitis; Order Comment: Patient unable to tolerate PO contrast. TECHNIQUE: Spiral CT through the abdomen and pelvis with IV contrast formatted in 3 planes. 100 cc of Omnipaque 300 was administered intravenously. This study was performed without oral contrast. Weight-based protocol using automatic tube modulation was used to optimize exposure parameters. CTDIvol Body: 14.80 mGy, DLP Body: 722 mGy*cm. COMPARISON: 12/23/2021 and 11/26/2021 FINDINGS: Air Launch Weapons Technician View Findings, Lines and Tubes: None. Visualized Chest: Lung bases are clear. No pleural effusion. The heart is normal in size. No pericardial effusion. Diaphragm: Normal. Liver: Normal. Gallbladder: Absent consistent with prior cholecystectomy. Bile ducts: Stable mild prominence of extrahepatic biliary tree which is likely related to postcholecystectomy status. Spleen: Normal. Pancreas: Normal. Adrenal glands: Normal. Kidneys and ureters: No hydronephrosis, stones, or suspicious masses. Bladder: Distended but generally normal in appearance. Reproductive organs: Stable appearance of 2.5 cm fibroid from the right aspect of the fundus. Stomach, small bowel, and large bowel: Clips in the region of the gastric fundus indicating fundoplication surgery. There is still a small paraesophageal hernia containing gas. This appearance is stable since prior. There are also sutures in the body of the stomach indicating prior gastric bypass. The small bowel demonstrates normal course and caliber. Large bowel demonstrates moderate amount of retained stool particularly in the right colon, but no obstruction. Appendix: Normal. Peritoneum and retroperitoneum: No ascites or pneumoperitoneum. No omental or mesenteric lesions. Lymph nodes: No enlarged lymph nodes. Blood vessels: Normal. No aneurysm. No evidence of venous thrombosis. There is mixed attenuation within the superior mesenteric vein, which is likely an add mixture of opacified and nonopacified venous blood. Abdominal and pelvic wall: Stable position of midline hernia mesh. No new areas of herniation. There is increasing soft tissue prominence in the periumbilical region, of uncertain etiology. Difficultto exclude central fluid. Correlation needed regarding whether the patient has symptoms referable to this region. Bones: No acute abnormality. Spine fusion hardware noted at L5 and S1. Stable mild depression of superior endplate at L1 versus Schmorl's node. IMPRESSION: There is increasing soft tissue prominence superficial to the hernia mesh in the periumbilical region, of uncertain etiology. Difficult to exclude central fluid. Correlation needed regarding whether the patient has symptoms referable to this region.Otherwise no acute findings in CT of the abdomen and pelvis. WSN: [id number] Ordering Physician: Renetta Hand Dictated By: Silvia Schaeffer MD, I Dictated Date/Time: 04/09/22 11:56 a Reviewed By: Silvia Schaeffer MD, I Signed By: Silvia Schaeffer MD, I Signed Date/Time: 04/09/22 11:56 am Transcribed By: LISA Transcribed Date/Time: 04/09/22 11:27 am Vital Signs Most recent to oldest [Reference Range]: 1 2 3 Oxygen Saturation [94-100 %] 100 % (04/09/22 3:32 PM) 100 % (04/09/22 1:33 PM) 100 % (04/09/22 8:20 AM) Pulse Rate [55-90 bpm] 65 bpm (04/09/22 3:32 PM) 60 bpm (04/09/22 1:33 PM) 70 bpm (04/09/22 8:20 AM) Blood Pressure [90-138/55-84 mm Hg] 112/50mm Hg (04/09/22 3:32 PM) 117/81mm Hg (04/09/22 1:33 PM) 122/75mm Hg (04/09/22 8:20 AM) Respiratory Rate [16-30 br/min] 17 br/min (04/09/22 3:32 PM) 16 br/min (04/09/22 1:33 PM) 16 br/min (04/09/22 11:11 AM) Temperature [96.8-100.4 DegF] 98.5 DegF (04/09/22 1:33 PM) 98.3 DegF (04/09/22 5:40 AM) Mode of Delivery (Oxygen) Room air (04/09/22 3:32 PM) Room air (04/09/22 1:33 PM) Room air (04/09/22 8:20 AM) Blood pressure sites Arm, right (04/09/22 3:32 PM) Arm, right (04/09/22 1:33 PM) Arm, right (04/09/22 8:20 AM) Temperature Route Oral (04/09/22 1:33 PM) Oral (04/09/22 5:40 AM) Social History Social History Type Response Smoking Status Never smoker entered on: 02/20/13 Sex Note * Renteta Hand DO: PERFORM Event Display: Patient Education Leaflets Authored Date: [id number] Surgery Hernia Repair ?? 286 Discharge Instructions Hernia Repair ?? Activity: No heavy lifting or vigorous activity for 3 ??? 4 weeks after surgery ?? Diet: Continue your usual diet ?? Further Instructions: ?? Keep the incision clean and dry for 48 hours. The gauze dressing may be removed 2 days after surgery. Leave the steri-strips (small pieces of tape directly on the skin) in place until they fall off by themselves. You may shower on the 3 rd ??day after surgery. ?? A small amount of blood on the dressing is common. For excessive bleeding, please call the surgeon or go to the Emergency Room at [facility]. ?? The numbing medicine will wear off. Please fill your prescription for pain medicine on your way home. The pain medicine may cause constipation, and you should use a stool softener and/or laxative as needed. ?? Please call the surgical office to schedule a follow-up appointment within 2- 3 weeks. Ice may be applied to the surgical site several times during the first day: apply through a cloth for 15 minutes on and 30 ??? 45 minutes off. Be careful not to freeze the skin. ?? IF YOU HAVE ANY QUESTIONS OR PROBLEMS, PLEASE CALL THE SURGICAL OFFICE ? CT Abdomen and Pelvis W contrast IV * [facility]ers[facility] , CIS S: TRANSCRIBE Silvia Schaeffer MD I: VERIFY, VERIFY Silvia Schaeffer MD I: VERIFY Event Display: Result: Authored Date: [id number] CT Abd/Pelvis W/ IV Contrast Only Hx of Present Illness: abd pain; Reason: Other:; LLQ abdominal pain; Clinical Question(s): Appendicitis; Order Comment: Patient unable to tolerate PO contrast. TECHNIQUE: Spiral CT through the abdomen and pelvis with IV contrast formatted in 3 planes. 100 cc of Omnipaque 300 was administered intravenously. This study was performed without oral contrast. Weight-based protocol using automatic tube modulation was used to optimize exposure parameters. CTDIvol Body: 14.80 mGy, DLP Body: 722 mGy*cm. COMPARISON: 12/23/2021 and 11/26/2021 FINDINGS: Air Launch Weapons Technician View Findings, Lines and Tubes: None. Visualized Chest: Lung bases are clear. No pleural effusion. The heart is normal in size. No pericardial effusion. Diaphragm: Normal. Liver: Normal. Gallbladder: Absent consistent with prior cholecystectomy. Bile ducts: Stable mild prominence of extrahepatic biliary tree which is likely related to postcholecystectomy status. Spleen: Normal. Pancreas: Normal. Adrenal glands: Normal. Kidneys and ureters: No hydronephrosis, stones, or suspicious masses. Bladder: Distended but generally normal in appearance. Reproductive organs: Stable appearance of 2.5 cm fibroid from the right aspect of the fundus. Stomach, small bowel, and large bowel: Clips in the region of the gastric fundus indicating fundoplication surgery. There is still a small paraesophageal hernia containing gas. This appearance is stable since prior. There are also sutures in the body of the stomach indicating prior gastric bypass. The small bowel demonstrates normal course and caliber. Large bowel demonstrates moderate amount of retained stool particularly in the right colon, but no obstruction. Appendix: Normal. Peritoneum and retroperitoneum: No ascites or pneumoperitoneum. No omental or mesenteric lesions. Lymph nodes: No enlarged lymph nodes. Blood vessels: Normal. No aneurysm. No evidence of venous thrombosis. There is mixed attenuation within the superior mesenteric vein, which is likely an add mixture of opacified and nonopacified venous blood. Abdominal and pelvic wall: Stable position of midline hernia mesh. No new areas of herniation. There is increasing soft tissue prominence in the periumbilical region, of uncertain etiology. Difficultto exclude central fluid. Correlation needed regarding whether the patient has symptoms referable to this region. Bones: No acute abnormality. Spine fusion hardware noted at L5 and S1. Stable mild depression of superior endplate at L1 versus Schmorl's node. IMPRESSION: There is increasing soft tissue prominence superficial to the hernia mesh in the periumbilical region, of uncertain etiology. Difficult to exclude central fluid. Correlation needed regarding whether the patient has symptoms referable to this region.Otherwise no acute findings in CT of the abdomen and pelvis. WSN: [id number] Ordering Physician: Renetta Hand Dictated By: Silvia Schaeffer MD, I Dictated Date/Time: 04/09/22 11:56 a Reviewed By: Silvia Schaeffer MD, I Signed By: Silvia Schaeffer MD, I Signed Date/Time: 04/09/22 11:56 am Transcribed By: LISA Transcribed Date/Time: 04/09/22 11:27 am Patient Care team information Care Team Personnel Name: Caitlyn Mcgee RN Position: [facility] RN Member Role: Primary Care Nurse Name: Sue Barillas NP Position: [facility] PCO Associate Professional Member Role: PCP Address: Address: [address] [place] [id number] Name: Andria Guadalupe RN [facility] RN Member Role: Primary Care Nurse Name: Shane Magallon DO Position: [facility] Resident Member Role: Admitting Physician Address: Address: [address] [place] [address]- Name: Neva Espino Position: [facility] ED TA [facility] Member Role: Grain Loader Name: Jayne Durham RN Position: [facility] ED RN W/OE and Tasks Member Role: Patient Care Provider Name: Renetta Hand DO Position: [facility] Resident Member Role: ED Resident Address: Address: [address] [place] [address]- Care Team Related Persons Name: KHUSHI CUNNINGHAM Address: home [address] [place] [address] Name: BHUPINDER VENEGAS Address: home [address] [place] [address] Name: FELIPE FLORES Address: home [address] [place] [address] Name: ARNAV FLORES Address: home [address] [place] [address] Name: IRINA FLORES Address: home [address] [place] [address] Name: RUSLAN FLORES Address: home [address] [place] [address] Name: KAISER PLUNKETT Address: home [address] [place] [address]
--- OUTSIDE RECORDS SUMMARY | 2022-08-17 08:44 | XMS_ITS | Continuity of Care Document ---
Author Name Unknown Organization [facility] Address [address] [place] [address]- Care Team Providers Care Senior Games Technician Name Role Phone Louisa LANDRUM, Taras Fuentes Primary Care Physician Encounter [facility] Date(s): 10/28/20 - 11/27/[address] [address]- Attending Physician: Konrad Curtis Admitting Physician: AdmtrKonrad [...] toxoids (Td) 08/03/05 Given 1Result Comment: [12/07/2017] [address]-07 2Result Comment: [12/21/2016] [facility]: 42621-892-61 3Result Comment: [06/10/2015] #3 4Admin Note: per pt 5Admin Note: given in clinic Medications acarbose 50 mg oral tablet 1 tablet = 50 mg, By Mouth, 3 times a day, Take 3 times daily with meals. E11.65, # 90 tablet, 5 Refills, Maintenance, 07/13/20 16:29:00 EDT, Tablet, [facility], Partial [...] Soft Stop, 08/28/20 10:36:00 EDT, [facility], Partial fill [...] Maintenance, 11/06/20 10:28:00 EDT, Tablet, [facility], Replaces loratidine, 158.02, cm, 11/06/20 10:04:00 [...] 6 Refills, Maintenance, 11/12/20 10:44:00 EDT,DIS Tablet, [facility], has t... Start Date: 11/12/20 Status: Ordered Jones 0.65% nasal spray 2 sprays, Nares, Both, 4 times a day, # 1 each, 0 Refills, Maintenance, 10/30/20 11:34:00 EDT, [facility], Partial fill upon patient request if the prescription is for a scheduleII opioid drug., 2 sprays Nares, Both 4 times a day... Start Date: 10/30/20 Status: Ordered pregabalin 75 mg oral capsule 1 capsule = 75 mg, By Mouth, Daily, # 30 capsule, 0 Refills, Maintenance, 08/27/20 9:45:00 EDT, Capsule, [facility], Partial fill [...] 11:32:00 EST, Aerosol, Route to Pharmacy Electronically, NCPDP_[id number], [facility], 160, [...] Gm, Refills 11, Route to Pharmacy Electronically, NCPDP_[id number], [facility], 158.02, cm, 11/13/20 8:38:00 EDT, Height, [...] Refills, Maintenance, 11/12/20 10:43:00 EDT, [facility], Partial fill [...] 1resolved after weight loss 2chronic perst 3gyn 03762 5testing negative insulinoma 6likley dumping sydrome 7abnormal GTT ;sugar 36 two hours into test 8sees gi 9normal CT brain 10new 115.3 cm,right per ct scan recent;seeing gynecology soon;they will review 12vit d deficiency;correct 040237 14per endocrinology monitor 15correction refer GTT; 2 hour glucose 36 16refer GGT 17seeing ortho;pre op 18asma,ama neg/cerulopalsmain wnl,AAT wnl 19Negative hep A antibody positive hep B surface antibody negative antigen negative hep C, normal ferritin 20ukltrasound Social History Social History Type Response Smoking Status Never smoker entered on: 02/20/13 Sex
--- OUTSIDE RECORDS SUMMARY | 2022-08-17 08:44 | XMS_ITS | Continuity of Care Document ---
Author Name Unknown Organization [facility] Address [address] [place] [address]- Care Team Providers Care Desk Monitor Name Role Phone Louisa LANDRUM, Taras Fuentes Primary Care Physician Encounter [facility] Date(s): 05/07/20 - 06/06/20 [facility] [address] [place] [address]- Allergies, Adverse Reactions, Alerts Substance Reaction Severity [...] toxoids (Td) 08/03/05 Given 1Result Comment: [12/07/2017] [address]-44 2Result Comment: [12/21/2016] [facility]: [id number] 3Result Comment: [06/10/2015] #3 4Admin Note: per [...] 60 capsule, 5 Refills, Maintenance, 05/07/20 15:54:00EST, [facility], 160.02, cm, 05/01/20 9:18:00 [...] 02/25/19 16:55:00 EST, Route to Pharmacy Electronically, [facility], 158, [...] 11:32:00 EST, Aerosol, Route to Pharmacy Electronically, NCPDP_[id number], [facility], 160, cm, 04/29/19 10:47:00 EST, Height... Start Date: 04/29/19 Status: Ordered Topamax 50 mg oral tablet See Instructions, take 1 tab in am and 2 tab at bedtime. If AM dose causes bad sedation, add to HS dose., # 90 tablet, 6 Refills, Maintenance, 03/12/20 11:09:00 EST, Tablet, [facility], weaning zonegran off by 25mg every 2 days t... Start Date: 03/12/20 Status: Ordered ubrogepant 100 mg oral tablet 1 tablet = 100 mg, By Mouth, Daily, # 10 tablet, 6 Refills, Soft Stop, 03/12/20 11:04:00 EST, [facility], Partial fill [...] perst 3folowed by mental health;recent hospitalization 4gyn [id number] 6testing negative insulinoma 7likley dumping sydrome 8abnormal GTT ;sugar 36 two hours into test 9sees gi 10normal CT brain 11new 125.3 cm,right per ct scan recent;seeing gynecology soon;they will review 13vit d deficiency;correct [id number] 15per endocrinology monitor 16correction refer GTT; 2 hour glucose 36 17refer GGT 18seeing ortho;pre op 19asma,ama neg/cerulopalsmain wnl,AAT wnl 20Negative hep A antibody positive hep B surface antibody negative antigen negative hep C, normal ferritin 21ukltrasound Social History Social History Type Response Smoking Status Never smoker entered on: 02/20/13 Sex
--- OUTSIDE RECORDS SUMMARY | 2022-08-17 08:44 | XMS_ITS | Continuity of Care Document ---
Author Name Unknown Organization [facility] Address [address] [place] [address]- Care Team Providers Care District Gauger Name Role Phone Louisa LANDRUM, Taras Fuentes Primary Care Physician [phone] [place] [facility] [place] 07/22/20 - 08/21/20 [facility] [address] [place] [address]- Allergies, Adverse Reactions, Alerts Substance Reaction Severity [...] toxoids (Td) 08/03/05 Given 1Result Comment: [12/07/2017] [address]-76 2Result Comment: [12/21/2016] [facility]: [id number] 3Result Comment: [06/10/2015] #3 4Admin Note: per pt 5Admin Note: given in clinic Medications acarbose 25 mg oral tablet 1 tablet = 25 mg, By Mouth, 3 times a day, Take 1 tablet 3 times daily with meals. Add to 50mg dosefor total of 75mg 3 times daily. E11.65, # 270 tablet, 3 Refills, Maintenance, 07/15/20 12:23:00 EDT, Tablet, [facility], Partial... Start Date: 07/15/20 Status: Ordered acarbose 50 mg oral tablet 1 tablet = 50 mg, By Mouth, 3 times a day, Take 3 times daily with meals. E11.65, # 90 tablet, 5 Refills, Maintenance, 07/13/20 16:29:00 EDT, Tablet, [facility] [...] 30 tablet, 5 Refills, Maintenance, 07/22/20 8:03:00EDT, [facility], Partial [...] 11:32:00 EST, Aerosol, Route to Pharmacy Electronically, [id number]_[id number], [facility], 160, cm, 04/29/19 10:47:00 EST, Height... Start Date: 04/29/19 Status: Ordered rifAXIMin 550 mg oral tablet 1 tablet = 550 mg, By Mouth, 3 times a day, # 42 tablet, 0 Refills, Maintenance, 07/14/20 13:37:00 EDT, Tablet, [facility], Partial fill upon patient request if the prescription is for a schedule II opioid drug., 158.02, cm, 07/06... Start Date: 07/14/20 Stop Date: 07/28/20 Status: Ordered Topamax 50 mg oral tablet 2 tablet = 100 mg, By Mouth, Daily at bedtime, # 60 tablet, 6 Refills, Maintenance, 08/04/20 11:44:00 EDT, Tablet, [facility], 158.02, cm, 07/06/20 6:49:00 [...] 6 Refills, Soft Stop, 08/04/20 11:37:00 EDT, [facility], [...] 1resolved after weight loss 2chronic perst 3gyn 07796 5testing negative insulinoma 6likley dumping sydrome 7abnormal GTT ;sugar 36 two hours into test 8sees gi 9normal CT brain 10new 115.3 cm,right per ct scan recent;seeing gynecology soon;they will review 12vit d deficiency;correct 810544 14per endocrinology monitor 15correction refer GTT; 2 hour glucose 36 16refer GGT 17seeing ortho;pre op 18asma,ama neg/cerulopalsmain wnl,AAT wnl 19Negative hep A antibody positive hep B surface antibody negative antigen negative hep C, normal ferritin 20ukltrasound Social History Social History Type Response Smoking Status Never smoker entered on: 02/20/13 Sex
--- OUTSIDE RECORDS SUMMARY | 2022-08-17 08:44 | XMS_ITS | Continuity of Care Document ---
Author Name Unknown Organization [facility] Address [address] [facility], [address] Floor, [address] [place] [address]- Care Team Providers Care Ap Operator Name Role Phone Louisa LANDRUM, Taras Fuentes Primary Care Physician [phone] [place] [facility] [place] 08/[place]/19 - 12/25/19 [facility] [address], [address], [address] [place] [address]- [facility] Attending Physician: Shell Vargas MD Admitting Physician: [...] toxoids (Td) 08/03/05 Given 1Result Comment: [12/07/2017] [address]-94 2Result Comment: [12/21/2016] [facility]: 46288-533-56 3Result Comment: [06/10/2015] #3 4Admin Note: per [...] 07/07/2012:36:00 EDT, Aerosol, Route to Pharmacy Electronically, NCPDP_[id number], [facility], 160, cm, 07/08/19 [...] 60 capsule, 5 Refills, Maintenance, 07/30/19 10:21:00EDT, [facility], 160, cm, 07/08/19 13:03:00 EDT, Height, 56.5, kg, 05/29/19 13:36:00 EDT, Dry Weight Start Date: 07/30/19 Status: Ordered eletriptan 40 mg oral tablet 1 tablet = 40 mg, By Mouth, Daily, PRN for migraine headache, # 9 tablet, 5 Refills, Soft Stop, 07/16/19 9:23:00 EDT, Tablet, [facility], she has tried sumatriptan [...] Refills, Maintenance, 11/15/19 10:29:00 EDT, REC Powder, [facility], 240 mL By Mouth [...] 11:32:00 EST, Aerosol, Route to Pharmacy Electronically, NCPDP_[id number], [facility], 160, [...] 07/08/19 13:36:00 EDT, Route to Pharmacy Electronically, NCPDP_[id number], [facility], 160, cm, 07/08/19 13:03:00 ED... Start Date: 07/08/19 Status: Ordered Topamax 50 mg oral tablet 2 tablet = 100 mg, By Mouth, Daily at bedtime, # 60 tablet, 6 Refills, Maintenance, 11/04/19 11:08:00 EDT, Tablet, [facility], weaning zonegran [...] Refills, Soft Stop, 11/25/19 21:26:00 EDT, Tablet, [facility], 160.02, cm, 11/15/19 [...] perst 3folowed by mental health;recent hospitalization 4gyn 21846 6testing negative insulinoma 7likley dumping sydrome 8abnormal GTT ;sugar 36 two hours into test 9sees gi 10normal CT brain 11new 125.3 cm,right per ct scan recent;seeing gynecology soon;they will review 13vit d deficiency;correct 743486 15per endocrinology monitor 16correction refer GTT; 2 hour glucose 36 17refer GGT 18seeing ortho;pre op 19asma,ama neg/cerulopalsmain wnl,AAT wnl 20Negative hep A antibody positive hep B surface antibody negative antigen negative hep C, normal ferritin 21ukltrasound Social History Social History Type Response Smoking Status Never smoker entered on: 02/20/13 Sex
--- OUTSIDE RECORDS SUMMARY | 2022-08-17 08:44 | XMS_ITS | Continuity of Care Document ---
Author Name Unknown Organization [facility] Address [address] [place] [address]- Care Team Providers Care Herpetology Teacher Name Role Phone Eran Sue JOHNSON Primary Care Physician [place] [facility] [place]s): 01/31/22 - 03/02/22 [facility] [address] [place] [address]- [place] Allergies, Adverse Reactions, Alerts Substance Reaction Severity Status Dust Allergy to pollen Active Pollen seasonal allergies respiratory symptoms Active Incruse Ellipta 1 lightheaded and migraine Active 1dizzy Immunizations Given and Recorded Vaccine Date Status Refusal Reason [id number] 12y+ bivalent booster vax 1 12/24/21 Given [...] vaccine, inactivated 02/08/11 Give n SARS-CoV-2 mRNA (ahvakpu-omrh-ooeer) vax 05/01/21 Recorded zoster vaccine, inactivated 11/03/20 [...] tetanus-diphtheria toxoids (Td) 08/03/05 Given 1Result Comment: [address]-9 2Result Comment: 77114-660-88 3Result Comment: [12/07/2017] [address]-05 4Result Comment: [12/21/2016] [facility]: 92730-860-41 5Result Comment: [06/10/2015] #3 6Admin Note: per pt 7Admin Note: given in clinic Medications acarbose 25 mg oral tablet See Instructions, 1 tablet with 50 mg (total 75 mg) By Mouth before lunch, # 30 each, 11 Refills, Maintenance, 11/03/21 8:24:00 EDT, Tablet, [facility], 158, cm, 11/03/21 8:01:00EDT, Height, 71.5, kg, 09/01/21 16:21:00 EDT, Dry W... Start Date: 11/03/21 Status: Ordered acetaminophen 500 mg oral tablet 2 tablet = 1,000 mg, By Mouth, Every 6 hours, PRN as needed for fever, # 200 tablet, 0 Refills, Maintenance, 12/03/21 10:17:00 EDT, Tablet, [facility], Partial fill upon patient request if the prescription is for a schedule II opi... Start Date: 12/03/21 Status: Ordered Albuterol (Eqv-ProAir HFA) 90 mcg/inh inhalation aerosol 2 puffs, Inhalation, Every 4 hours, PRN NEEDED FOR WHEEZING, # 8.5 Gm, 1 Refills, Maintenance, 12/03/21 14:16:00 EDT, [facility], 18, INHALE TWO PUFFS EVERY 4 HOURS NEEDED FOR WHEEZING, 163, cm, 12/03/21 9:39:00 EDT, Height,... Start Date: 12/03/21 Status: Ordered calcium (as citrate)-vitamin D 315 mg-250 intl units oral tablet 2 tablet, By Mouth, 2 times a day, # 120 tablet, 6 Refills, Maintenance, 11/03/21 8:23:00 EDT, Tablet, [facility], 2 tablet By Mouth [...] Refills, Maintenance, 11/22/21 9:49:00 EDT, CR Capsule, [facility], Partial fill upon patient request if the prescription is for a schedule II opioid... Start Date: 11/22/21 Status: Ordered Emgality Prefilled Pen 120 mg/mL subcutaneous solution = 120 mg, Subcutaneous Injection, Once, Maintenance Dose, # 1 kit, 6 Refills, Soft Stop, 02/08/22 9:15:00 EST, [facility], Partial fill upon patient request if the prescription is for a schedule II opioid drug., 163, cm, 02/08/22... Start Date: 02/08/22 Status: Ordered EPINEPHrine 1 mg/mL injectable solution 0.3 mL = 0.3 mg, Intramuscular, Once, # 1 mL, 1 Refills, Soft Stop, 03/08/21 15:07:00 EST, Solution, [facility], Partial fill upon patient request if the prescription is for a schedule II opioid drug., 158, cm, 03/08/21 12:18:00 E... Start Date: 03/08/21 Status: Ordered famotidine 40 mg oral tablet 1 tablet = 40 mg, By Mouth, 2 times a day, # 60 tablet, 6 Refills, Maintenance, 01/31/22 14:05:00 EST, Suspension, [facility], Partial fill upon [...] 11/14/21 11:28:00 EDT, Route to Pharmacy Electronically, [facility], 158, cm, 11/03/21 8:01:00 EDT, Height, 71.5, kg, 09/01/21 16:21:00 EDT, Start Date: 11/14/21 Status: Ordered Nurtec ODT 75 mg oral tablet, disintegrating See Instructions, TAKE ONE TABLET DAILY NEEDED FOR migraines, DO NOT EXCEED ONE TABLET IN 24 HOURS, # 8 tablet, 6 Refills, Maintenance, 12/28/21 15:14:00 EDT, [facility], 163,cm, 12/24/21 8:20:00 EDT, [...] 11/23/21 19:57:00 EDT, Route to Pharmacy Electronically, NCPDP_[id number], [facility], 158, cm, 11/03/21 8:0... [...] 5 Refills, Maintenance, 12/10/21 9:44:00 EDT, Tablet, [facility], Partial [...] gynecology soon;they will review 11vit d deficiency;correct [id number] 13per endocrinology monitor 14correction refer GTT; 2 [...] Member Role: Primary Care Nurse Name: Eran VIDEO PRODUCTION SPECIALIST, Sue Dahl Position: [facility] PCO Associate Professional Member Role: PCP Address: Address: [address] [place] [address] Name: Andria Guadalupe RN Position: [facility] SN RN Member Role: Primary Care Nurse Name: Liz Martin RN Position: S RN Member Role: Primary Care Nurse Name: Ambreen Mcmahon RN Position: S RN Member Role: Primary Care Nurse Name: Irais Grijalva RN Position: S RN Member Role: Primary Care Nurse Name: Autumn Martinez RN Position: [facility] SN RN Member Role: Primary Care Nurse Name: Concha Mckinley RN Position: S RN Member Role: Primary Care Nurse Name: Liz English RN Position: S RN Member Role: Primary Care Nurse Name: Dora Williamson RN Position: S RN Member Role: Primary Care Nurse Care Team Related Persons Name: KHUSHI CUNNINGHAM Address: home [address] [place] [address] Name: BHUPINDER VENEGAS Address: home [address] [place] [address] Name: FELIPE FLORES Address: home [address] [place] [address] Name: ARNAV FLORES Address: home [address] [place] [address] Name: IRINA FLORES Address: home [address] [place] [address] Name: RUSLAN FLORES Address: home [address] [facility] [place] [address] Name: KAISER PLUNKETT Address: home [address] [place] [address]
--- OUTSIDE RECORDS SUMMARY | 2022-08-17 08:44 | XMS_ITS | Continuity of Care Document ---
Author Name Unknown Organization [facility] Address [address] [place] [address]- Care Team Providers Care Riveter Name Role Phone Eran Sue JOHNSON Primary Care Physician Encounter [facility] [place] Date(s): 05/18/22 - 06/17/22 [facility] [address] [place] [address]- [place] Allergies, Adverse Reactions, Alerts Substance Reaction Severity Status Dust Allergy to pollen Active Pollen seasonal allergies respiratory symptoms Active Incruse Ellipta 1 lightheaded and migraine Active 1dizzy Immunizations Given and Recorded Vaccine Date Status Refusal Reason [id number] 12y+ bivalent booster vax 1 12/24/21 Given [...] vaccine, inactivated 02/08/11 Give n SARS-CoV-2 mRNA (hcofefe-arau-fcucj) vax 05/01/21 Recorded zoster vaccine, inactivated 11/03/20 [...] tetanus-diphtheria toxoids (Td) 08/03/05 Given 1Result Comment: [address]-1 2Result Comment: [id number] 3Result Comment: [12/07/2017] [address]-73 4Result Comment: [12/21/2016] [facility]: 85624-119-41 5Result Comment: [06/10/2015] #3 6Admin Note: per [...] Gm, 5 Refills, Maintenance, 03/09/22 11:21:00 EST, [facility], 17, INHALE TWO PUFFS [...] 1,200 mL, 5 Refills, Maintenance,04/29/22 9:16:00 EST, [id number], Partial fill upon patient request if the prescription is for a schedule II opioid drug., 158, cm, 02... Start Date: 04/29/22 Status: Ordered cetirizine 10 mg oral tablet 1 tablet, By Mouth, Daily, # 30 tablet, 5 Refills, Maintenance, 06/03/22 11:40:00 EDT, [facility], 158, cm, 05/25/22 13:59:00 [...] Refills, Maintenance, 05/30/22 7:57:00 EDT, CR Capsule, [facility], Partial fill upon patient request if the prescription is for a schedule II opioid... Start Date: 05/30/22 Status: Ordered Emgality Prefilled Pen 120 mg/mL subcutaneous solution = 120 mg, Subcutaneous Injection, Once, Maintenance Dose, # 3 kit, 2 Refills, Soft Stop, 03/17/22 8:08:00 EST, [facility], requesting 3 month supply [...] 6 Refills, Maintenance, 01/31/22 14:05:00 EST, Suspension, [facility], Partial fill upon patient request if the prescription is for a schedule II opioid drug., 163, cm, 01/18... Start Date: 01/31/22 Stop Date: 08/29/22 Status: Ordered Fiber Choice 1.5 g oral tablet, chewable 1 tablet = 1.5 Gm, Chew, 3 times a day, # 90 tablet, 0 Refills, Maintenance, 04/09/22 15:16:00 EST,Chew Tablet, [id number], Partial fill upon patient request if the [...] Refills, Maintenance, 04/09/22 15:16:00 EST, REC Powder, [facility] #[id number], Partial fill upon patient request if the [...] tablet, 6 Refills, Maintenance, 12/28/21 15:14:00 EDT, [facility], 163,cm, 12/24/21 8:20:00 EDT, [...] each, 0 Refills, Maintenance, 04/06/22 15:29:00 EST, [facility][id number], Partial fi... Start Date: 04/06/22 Status: Ordered Reclast = 5 mg, IV Infusion, Once, 0 Refills, Maintenance, 11/06/20 10:24:00 EDT, administered at [facility] 10/2020 Start Date: 11/06/20 Status: Ordered Stool Softener + Stimulant Laxative 50 mg-8.6 mg oral capsule 1 capsule, By Mouth, Daily in PM, # 60 capsule, 0 Refills, Maintenance, 04/09/22 15:17:00 EST, Capsule, [facility] #[id number], Partial fill upon patient request if the prescription is for a schedule II opioid drug., 1 capsule By Mouth Daily in P... Start Date: 04/09/22 Status: Ordered Symbicort 160mcg/4.5mcg Inhaler 2, puffs, Inhalation, 2 times a day, rinse mouth and throat after use, # 10.2 Gm, Refills 2, Tot. Refills 2, Maintenance, 06/10/22 20:48:00 EDT, Route to Pharmacy Electronically, NCPDP_[id number], [facility], 158, cm, 06/07/22 10:... [...] Active Vitamin D deficiency Confirmed Active 1gyn 82849 3testing negative insulinoma 4likley dumping sydrome 5abnormal GTT ;sugar 36 two hours into test 6normal CT brain 7new 8resolved after weight loss 9chronic perst 105.3 cm,right per ct scan recent;seeing gynecology soon;they will review 11vit d deficiency;correct 505591 13per endocrinology monitor 14correction refer GTT; 2 [...] Care Nurse Name: Sue Barillas NP Position: [facility] PCO Associate Professional Member Role: PCP Address: Address: [address] [place], [place] [address] Name: Andria Guadalupe RN Position: [facility] SN RN Member Role: Primary Care Nurse Name: Liz Martin RN Position: [facility] RN Member Role: Primary Care Nurse Name: Ambreen Mcmahon RN Position: [facility] RN Member Role: Primary Care Nurse Name: Irais Grijalva RN Position: [facility] RN Member Role: Primary Care Nurse Name: Autumn Martinez RN Position: [facility] SN RN Member Role: Primary Care Nurse Name: Liz English RN Position: [facility] RN Member Role: Primary Care Nurse Name: Dora Williamson RN Position: [facility] RN Member Role: Primary Care Nurse Care Team Related Persons Name: KHUSHI CUNNINGHAM Address: home [address] [place] [address] Name: BHUPINDER VENEGAS Address: [address] [place] [address] Name: FELIPE FLORES Address: home [address] [place] [address] Name: ARNAV FLORES Address: home [address] [place] [address] Name: IRINA FLORES Address: home [address] [place] [address] Name: RUSLAN FLORES Address: home [address] [facility] [place] [address] Name: KAISER PLUNKETT Address: home [address] [place] [address]
--- OUTSIDE RECORDS SUMMARY | 2022-08-17 08:44 | XMS_ITS | Continuity of Care Document ---
Author Name Unknown Organization [facility] Address [address] [place] [address]- Care Team Providers Care Special Needs Tutor Name Role Phone Louisa LANDRUM, Taras Fuentes Primary Care Physician [phone] Encounter [facility] [place] Date(s): 11/06/20 - 11/13/20 [facility] [address] [place] [address]- Attending Physician: Not on Staff, Attending MD [...] adult vaccine 07/09/14 Given pneumococcal 23-valent vaccine 6/16/14 Given tetanus/diphtheria/pertussis, acel(Tdap) 11/28/11 Given FluLaval (oldterm) 11/28/11 Given Influenza Virus Vaccine (oldterm) 4 03/24/09 Given Influenza Virus Vaccine (oldterm) 01/04/07 Given Influenza Inactive (IM) (oldterm) 5 12/25/07 Given tetanus-diphtheria toxoids (Td) 08/03/05 Given 1Result Comment: [12/07/2017] [address]-22 2Result Comment: [12/21/2016] [facility]: 11606-127-88 3Result Comment: [06/10/2015] #3 4Admin Note: per pt 5Admin Note: given in clinic Medications acarbose 50 mg oral tablet 1 tablet = 50 mg, By Mouth, 3 times a day, Take 3 times daily with meals. E11.65, # 90 tablet, 5 Refills, Maintenance, 07/13/20 16:29:00 EDT, Tablet, [facility], Partial fill [...] 5 Refills, Maintenance, 11/06/20 10:28:00 EDT, Tablet, [facility], Replaces loratidine, 158.02, cm, 11/06/20 [...] 6 Refills, Maintenance, 11/12/20 10:44:00 EDT,DIS Tablet, [facility], has t... Start Date: 11/12/20 Status: Ordered [place] 0.65% nasal spray 2 sprays, Nares, Both, 4 times a day, # 1 each, 0 Refills, Maintenance, 10/30/20 11:34:00 EDT, [facility], Partial fill upon patient request if the prescription is for a scheduleII opioid drug., 2 sprays Nares, Both 4 times a day... Start Date: 10/30/20 Status: Ordered pregabalin 75 mg oral capsule 1 capsule = 75 mg, By Mouth, Daily, # 30 capsule, 0 Refills, Maintenance, 08/27/20 9:45:00 EDT, Capsule, [facility], Partial fill upon patient request if the prescription is for a schedule II opioid drug., 158.02, cm, 08/27/20 9:2... Start Date: 08/27/20 Stop Date: 09/26/20 Status: Ordered ProAir HFA 90 mcg/inh inhalation aerosol with adapter 2, puffs, Inhalation, Every 4 hours, PRN, # 8.5 Gm, Refills 2, Tot. Refills 2, Maintenance, 04/29/19 11:32:00 EST, Aerosol, Route to Pharmacy Electronically, NCPDP_[id number], [facility], 160, cm, [...] capsule, 5 Refills, Maintenance, 11/12/20 10:43:00 EDT, [facility], Partial fill upon [...] 1resolved after weight loss 2chronic perst 3gyn 57583 5testing negative insulinoma 6likley dumping sydrome 7abnormal GTT ;sugar 36 two hours into test 8sees gi 9normal CT brain 10new 115.3 cm,right per ct scan recent;seeing gynecology soon;they will review 12vit d deficiency;correct 248177 14per endocrinology monitor 15correction refer GTT; 2 hour glucose 36 16refer GGT 17seeing ortho;pre op 18asma,ama neg/cerulopalsmain wnl,AAT wnl 19Negative hep A antibody positive hep B surface antibody negative antigen negative hep C, normal ferritin 20ukltrasound Vital Signs Most recent to oldest [Reference Range]: 1 Height 158.02 cm (11/06/20 10:04 AM) Weight 76.2 kg (11/06/20 10:04 AM) Oxygen Saturation [94-100 %] 96 % (11/06/20 10:04 AM) Pulse Rate [55-90 bpm] 79 bpm (11/06/20 10:04 AM) Body Mass Index [18.5-24.99] 30.52 *>HHI* (11/06/20 10:04 AM) Blood Pressure [90-138/55-84 mm Hg] 102/ 72mm Hg (11/06/20 10:04 AM) Respiratory Rate [16-30 br/min] 14 br/mi n *L* (11/06/20 10:04 AM) Temperature [96.8-100.4 DegF] 97.9 DegF (11/06/20 10:04 AM) Mode of Delivery (Oxygen) Room air (11/06/20 10:04 AM) Blood pressure sites Arm, right (11/06/20 10:04 AM) Temperature Route Oral (11/06/20 10:04 AM) Weight Obtained Via Standing scale (11/06/20 10:04 AM) Social History Social History Type Response Smoking Status Never smoker entered on: 02/20/13 Sex
--- OUTSIDE RECORDS SUMMARY | 2022-08-17 08:44 | XMS_ITS | Continuity of Care Document ---
Author Name Unknown Organization [facility] Address [address] [place] [address]- Care Team Providers Care Diamond Selector Name Role Phone Eran Sue JOHNSON Primary Care Physician [place] [facility] [place] 05/08/21 [facility] [address] [place] [address]- [place] Allergies, Adverse Reactions, Alerts Substance Reaction Severity Status Dust Allergy to pollen Active Pollen seasonal allergies respiratory symptoms Active Incruse Ellipta 1 lightheaded and migraine Active 1dizzy Immunizations Given and Recorded Vaccine Date Status Refusal Reason SARS-CoV-2 mRNA (ulwfetk-eoep-uiaxb) vax 05/01/21 Recorded influenza virus vaccine, inactivated [...] toxoids (Td) 08/03/05 Given 1Result Comment: [12/07/2017] [address]-11 2Result Comment: [12/21/2016] [facility]: 76634-132-53 3Result Comment: [06/10/2015] #3 4Admin Note: per [...] 5 Refills, Maintenance, 11/06/20 10:28:00 EDT, Tablet, [facility], Replaces loratidine, 158.02, cm, 11/06/20 [...] Date: 12/10/20 Stop Date: 07/08/21 Status: Ordered [place] 0.65% nasal spray 2 sprays, Nares, Both, 4 times a day, # 1 each, 0 Refills, Maintenance, 10/30/20 11:34:00 EDT, [facility], Partial [...] 8:26:00 EDT, Aerosol, Route to Pharmacy Electronically, NCPDP_[id number], [facility], 158.02, cm, 01/06/21 8:03:00 EDT, [...] Gm, Refills 11, Route to Pharmacy Electronically, NCPDP_[id number], [facility], 158.02, cm, [...] 1resolved after weight loss 2chronic perst 3gyn 39795 5testing negative insulinoma 6likley dumping sydrome 7abnormal GTT ;sugar 36 two hours into test 8sees gi 9normal CT brain 10new 115.3 cm,right per ct scan recent;seeing gynecology soon;they will review 12vit d deficiency;correct 363935 14per endocrinology monitor 15correction refer GTT; 2 hour glucose 36 16refer GGT 17seeing ortho;pre op 18asma,ama neg/cerulopalsmain wnl,AAT wnl 19Negative hep A antibody positive hep B surface antibody negative antigen negative hep C, normal ferritin 20ukltrasound Social History Social History Type Response Smoking Status Never smoker entered on: 02/20/13 Sex
--- OUTSIDE RECORDS SUMMARY | 2022-08-17 08:44 | XMS_ITS | Continuity of Care Document ---
Author Name Unknown Organization [facility] Address [address] [place] [address]- Care Team Providers Care Commercial Loan Coordinator Name Role Phone Eran COTTON GRADER, Sue Dahl Primary Care Physician [phone] Encounter [facility] Date(s): 06/14/22 - 07/14/22 [facility] [address] [place] [address]- [place] Allergies, Adverse Reactions, Alerts Substance Reaction Severity Status Dust Allergy to pollen Active Pollen seasonal allergies respiratory symptoms Active Incruse Ellipta 1 lightheaded and migraine Active 1dizzy Immunizations Given and Recorded Vaccine Date Status Refusal Reason [id number] 12y+ bivalent booster vax 1 12/24/21 Given [...] vaccine, inactivated 02/08/11 Give n SARS-CoV-2 mRNA (otrellf-ozwy-lumub) vax 05/01/21 Recorded zoster vaccine, inactivated 11/03/20 [...] tetanus-diphtheria toxoids (Td) 08/03/05 Given 1Result Comment: [id number] 2Result Comment: [id number] 3Result Comment: [12/07/2017] [id number] 4Result Comment: [12/21/2016] [facility]: [id number] 5Result Comment: [06/10/2015] #3 6Admin Note: per pt 7Admin Note: given in clinic Medications acetaminophen 500 mg oral tablet 2 tablet = 1,000 mg, By Mouth, Every 6 hours, PRN as needed for fever, # 200 tablet, 0 Refills, Maintenance, 12/03/21 10:17:00 EDT, Tablet, [facility], Partial fill upon patient request if the prescription is for a schedule II opi... Start Date: 12/03/21 Status: Ordered Albuterol (Eqv-ProAir HFA) 90 mcg/inh inhalation aerosol 2 puffs, Inhalation, Every 4 hours, PRN NEEDED FOR WHEEZING, # 8.5 Gm, 5 Refills, Maintenance, 03/09/22 11:21:00 EST, [facility], 17, INHALE TWO PUFFS [...] 6 Refills, Maintenance, 11/03/21 8:23:00 EDT, Tablet, [facility], 2 tablet By Mouth 2 times a day, 158, cm, 11/03/21 8:01:00 EDT,Height, 71.5, kg, 09/01/21 16:21:00 EDT, Dry Weight Start Date: 11/03/21 Status: Ordered Carafate 1 gm/10 ml oral suspension 10 mL = 1 Gm, By Mouth, 3 times a day before meals and bedtime, # 1,200 mL, 5 Refills, Maintenance,04/29/22 9:16:00 EST, [id number], Partial fill upon patient request if the prescription is for a schedule II opioid drug., 158, cm, 02... Start Date: 04/29/22 Status: Ordered cetirizine 10 mg oral tablet 1 tablet, By Mouth, Daily, # 30 tablet, 5 Refills, Maintenance, 06/03/22 11:40:00 EDT, [facility], 158, cm, 05/25/22 13:59:00 [...] Refills, Maintenance, 05/30/22 7:57:00 EDT, CR Capsule, [facility], Partial fill upon patient request if the prescription is for a schedule II opioid... Start Date: 05/30/22 Status: Ordered Emgality Prefilled Pen 120 mg/mL subcutaneous solution = 120 mg, Subcutaneous Injection, Once, Maintenance Dose, # 3 kit, 2 Refills, Soft Stop, 07/14/22 10:04:00 EDT, [facility], requesting 3 month supply [...] 6 Refills, Maintenance, 01/31/22 14:05:00 EST, Suspension, [facility], Partial fill upon patient request if the prescription is for a schedule II opioid drug., 163, cm, 01/18... Start Date: 01/31/22 Stop Date: 08/29/22 Status: Ordered Fiber Choice 1.5 g oral tablet, chewable 1 tablet = 1.5 Gm, Chew, 3 times a day, # 90 tablet, 0 Refills, Maintenance, 04/09/22 15:16:00 EST,Chew Tablet, [id number], Partial fill upon patient request if the [...] Refills, Maintenance, 04/09/22 15:16:00 EST, REC Powder, [facility] #[id number], Partial fill upon patient request if the prescription is for a schedule II opioid drug., 17 Gm... Start Date: 04/09/22 Status: Ordered montelukast 10 mg oral tablet 1, tablet, By Mouth, Daily in PM, # 90 tablet, Refills 1, Tot. Refills 1, Maintenance, 11/14/21 11:28:00 EDT, Route to Pharmacy Electronically, [facility], 158, cm, 11/03/21 8:01:00 EDT, Height, 71.5, kg, 09/01/21 16:21:00 EDT, . Start Date: 11/14/21 Status: Ordered Nurtec ODT 75 mg oral tablet, disintegrating See Instructions, TAKE ONE TABLET DAILY NEEDED FOR migraines, DO NOT EXCEED ONE TABLET IN 24 HOURS, # 8 tablet, 6 Refills, Maintenance, 12/28/21 15:14:00 EDT, [facility], 163,cm, 12/24/21 8:20:00 [...] 0 Refills, Maintenance, 04/09/22 15:17:00 EST, Capsule, [facility] #[id number], Partial fill upon patient request if the prescription is for a schedule II opioid drug., 1 capsule By Mouth Daily in P... Start Date: 04/09/22 Status: Ordered Symbicort 160mcg/4.5mcg Inhaler 2, puffs, Inhalation, 2 times a day, rinse mouth and throat after use, # 10.2 Gm, Refills 2, Tot. Refills 2, Maintenance, 06/10/22 20:48:00 EDT, Route to Pharmacy Electronically, NCPDP_[id number], [facility], 158, cm, 06/07/22 10:... [...] Active Vitamin D deficiency Confirmed Active 1gyn 48329 3testing negative insulinoma 4likley dumping sydrome 5abnormal GTT ;sugar 36 two hours into test 6normal CT brain 7new 8resolved after weight loss 9chronic perst 105.3 cm,right per ct scan recent;seeing gynecology soon;they will review 11vit d deficiency;correct [id number] 13per endocrinology monitor 14correction refer GTT; 2 hour glucose 36 15refer GGT 16seeing ortho;pre op 17asma,ama neg/cerulopalsmain wnl,AAT wnl 18Negative hep A antibody positive hep B surface antibody negative antigen negative hep C, normal ferritin 19ukltrasound Social History Social History Type Response Smoking Status Never smoker entered on: 02/20/13 Sex Patient Care team information Care Team Personnel Name: Caitlyn Mcgee RN Position: [facility] RN Member Role: Primary Care Nurse Name: Sue Barillas NP Position: [facility] PCO Associate Professional Member Role: PCP Address: Address: [address] [place] [address]- Name: Andria Guadalupe RN Position: [facility] RN Member Role: Primary Care Nurse Name: Liz Martin RN Position: [facility] RN Member Role: Primary Care Nurse Name: Ambreen Mcmahon RN Position: [facility] RN Member Role: Primary Care Nurse Name: Irais Grijalva RN Position: [facility] RN Member Role: Primary Care Nurse Name: Autumn Martinez RN Position: [facility] SN RN Member Role: Primary Care Nurse Name: Liz English RN Position: [facility] RN Member Role: Primary Care Nurse Name: Dora Williamson RN Position: [facility] RN Member Role: Primary Care Nurse Care Team Related Persons Name: KHUSHI CUNNINGHAM Address: home [address] [place] [address] Name: BHUPINDER VENEGAS Address: home [address] [place] [address] Name: FELIPE FLORES Address: home [address] [place] [address] Name: ARNAV FLORES Address: home [address] [place] [address] Name: IRINA FLORES Address: home [address] [place] [address] Name: RUSLAN FLORES Address: home [address] [place] [address] Name: KAISER PLUNKETT Address: home [address] [place] [address]
--- OUTSIDE RECORDS SUMMARY | 2022-08-17 08:44 | XMS_ITS | Continuity of Care Document ---
Author Name Unknown Organization [facility] Address Unknown Care Team Providers Care Assembler Corncob Pipes Name Role Phone Eran Sue JOHNSON Primary Care Physician Encounter [facility] Date(s): 09/22/21 - 10/22/21 [facility] Attending Physician: Konrad Curtis Admitting Physician: AdmtrKonrad Referring Physician: Admtr, Ar8 Allergies, Adverse Reactions, Alerts Substance Reaction Severity Status Dust Allergy to pollen Active Incruse Ellipta 1 lightheaded and migraine Active Pollen seasonal allergies respiratory symptoms Active 1dizzy Immunizations Given and Recorded Vaccine Date Status Refusal Reason SARS-CoV-2 mRNA (bubffgp-[id number]-znmmi) vax 05/01/21 Recorded influenza virus vaccine, inactivated [...] toxoids (Td) 08/03/05 Given 1Result Comment: [12/07/2017] [id number] 2Result Comment: [12/21/2016] [facility]: [id number] 3Result Comment: [06/10/2015] #3 4Admin Note: per pt 5Admin Note: given in clinic Medications acarbose 25 mg oral tablet 1 tablet = 25 mg, By Mouth, 3 times a day, Take 1 tab (plus 1 50mg tab), 3 times daily with meals.,# 270 tablet, 3 Refills, Maintenance, 02/03/21 8:34:00 EST, Tablet, [facility], Partial fill upon patient request if the prescript... Start Date: 02/03/21 Status: Ordered acarbose 50 mg oral tablet 1 tablet = 50 mg, By Mouth, 3 times a day, Take 1 tab (plus 1 25mg tab), 3 times daily with meals.,# 270 tablet, 3 Refills, Maintenance, 02/03/21 8:34:00 EST, Tablet, [facility], Partial [...] constipation, 08/23/21 8:22:00 EDT, Route to Pharmacy Electronically,[facility], Partial fill upon patient... Start Date: 08/23/21 Status: Ordered Dexilant 60 mg oral delayed release capsule 1 capsule = 60 mg, By Mouth, 2 times a day, 30 min before meal, # 60 capsule, 5 Refills, Maintenance, 04/16/21 14:29:00 EST, CR Capsule, [facility], Partial fill upon patient request if the prescription is for a schedule II opioi... Start Date: 04/16/21 Status: Ordered Emgality Prefilled Pen 120 mg/mL subcutaneous solution = 120 mg, Subcutaneous Injection, Once, Maintenance Dose, # 1 kit, 6 Refills, Soft Stop, 06/29/21 10:09:00 EDT, [facility], Partial [...] 09/17/21 14:13:00 EDT, Route to Pharmacy Electronically, [facility], 158, cm, 09/16/21 9:43:00 EDT, [...] 04/23/21 12:32:00 EST, Route to Pharmacy Electronically, [facility], 158, cm, 04/09/21 8:13:00 [...] 6 Refills, Maintenance, 12/10/20 12:36:00 EDT,DIS Tablet, [facility], [...] 1resolved after weight loss 2chronic perst 3gyn [address]7590 5testing negative insulinoma 6likley dumping sydrome 7abnormal GTT ;sugar 36 two hours into test 8sees gi 9normal CT brain 10new 115.3 cm,right per ct scan recent;seeing gynecology soon;they will review 12vit d deficiency;correct 271542 14per endocrinology monitor 15correction refer GTT; 2 hour glucose 36 16refer GGT 17seeing ortho;pre op 18asma,ama neg/cerulopalsmain wnl,AAT wnl 19Negative hep A antibody positive hep B surface antibody negative antigen negative hep C, normal ferritin 20ukltrasound Social History Social History Type Response Smoking Status Never smoker entered on: 02/20/13 Sex
--- OUTSIDE RECORDS SUMMARY | 2022-08-17 08:45 | XMS_ITS | Continuity of Care Document ---
Author Name Unknown Organization [facility] Address [address] [place] [address]- Care Team Providers Care Data Warehouse Analyst Name Role Phone Eran BENCH BORING MACHINE OPERATOR, Sue Dahl Primary Care Physician Encounter [facility] Date(s): 05/06/21 - 05/13/21 [facility] [address] [place] [address]- Encounter Diagnosis Pain in the abdomen(Discharge Diagnosis) - 05/06/21 Attending Physician: Not on Staff, Attending MD Allergies, Adverse Reactions, Alerts Substance Reaction Severity Status Dust Allergy to pollen Active Pollen seasonal allergies respiratory symptoms Active Incruse Ellipta 1 lightheaded and migraine Active 1dizzy Immunizations Given and Recorded Vaccine Date Status Refusal Reason SARS-CoV-2 mRNA ([id number]) vax 05/01/21 Recorded influenza virus vaccine, inactivated [...] toxoids (Td) 08/03/05 Given 1Result Comment: [12/07/2017] [address]-14 2Result Comment: [12/21/2016] [facility]: [id number] 3Result Comment: [06/10/2015] #3 4Admin Note: per [...] 3 Refills, Maintenance, 02/03/21 8:34:00 EST, Tablet, [facility], Partial fill upon patient request if the prescript... Start Date: 02/03/21 Status: Ordered acarbose 50 mg oral tablet 1 tablet = 50 mg, By Mouth, 3 times a day, Take 1 tab (plus 1 25mg tab), 3 times daily with meals.,# 270 tablet, 3 Refills, Maintenance, 02/03/21 8:34:00 EST, Tablet, [facility], Partial fill upon patient request if the prescript... Start Date: 02/03/21 Status: Ordered Baqsimi One Pack 3 mg nasal powder See Instructions, 3 mg Once intrasnasally for severe hypoglycemia, # 2 each, 3 Refills, Soft Stop, 08/28/20 10:36:00 EDT, [facility], Partial fill [...] 5 Refills, Maintenance, 11/06/20 10:28:00 EDT, Tablet, [facility], Replaces loratidine, 158.02, cm, 11/06/20 10:04:00 EDT, Height,67, kg, 09/11/19 11:20:00 EDT, Dry Weight Start Date: 11/06/20 Status: Ordered cholestyramine 4 gm/5 gm oral powder for reconstitution 1 pack/packet, By Mouth, Daily, # 30 pack/packet, 5 Refills, Maintenance, 03/03/21 16:42:00 EST, REC Powder, [facility], Partial fill [...] per PCP, # 30 mL, 1 Refills, [facility], 158, cm, 04/09/21 8:13:00 EST, Height, 80.6, kg, 03/08/21 12:18:00 EST, Dry Weight Start Date: 04/30/21 Status: Ordered Dexilant 60 mg oral delayed release capsule 1 capsule = 60 mg, By Mouth, 2 times a day, 30 min before meal, # 60 capsule, 5 Refills, Maintenance, 04/16/21 14:29:00 EST, CR Capsule, [facility], Partial fill upon patient request if the prescription is for a schedule II opioi... Start Date: 04/16/21 Status: Ordered Emgality Prefilled Pen 120 mg/mL subcutaneous solution = 240 mg, Subcutaneous Injection, Once, Loading Dose, # 2 kit, 0 Refills, Soft Stop, 03/16/21 16:05:00 EST, [facility], Partial fill upon patient request if the prescription is for a schedule II opioid drug., 158, cm, 03/11/21 9:1... Start Date: 03/16/21 Status: Ordered EPINEPHrine 1 mg/mL injectable solution 0.3 mL = 0.3 mg, Intramuscular, Once, # 1 mL, 1 Refills, Soft Stop, 03/08/21 15:07:00 EST, Solution, [facility], Partial fill [...] 1 Refills, Maintenance, 04/06/21 9:45:00 EST, Solution, [facility], Partial fill upon patient request if the prescription is for a schedule II opioid drug.... Start Date: 04/06/21 Status: Ordered meclizine 25 mg oral tablet See Instructions, PRN for dizziness, Take 1 tablet every 8 hours as needed for dizziness, # 15 tablet, 0 Refills, Maintenance, 11/03/20 7:49:00 EDT, Tablet, [facility], Partial fill upon patient request if the prescription is for... Start Date: 11/03/20 Status: Ordered montelukast 10 mg oral tablet 10 mg, 1, tablet, By Mouth, Daily in PM, # 90 tablet, Refills 1, Tot. Refills 1, Maintenance, 04/23/21 12:32:00 EST, Route to Pharmacy Electronically, [facility], 158, cm, 04/09/21 8:13:00 EST, Height, 80.6, kg, 03/08/21 12:18:00... Start Date: 04/23/21 Status: Ordered Nurtec ODT 75 mg oral tablet, disintegrating 1 tablet = 75 mg, By Mouth, Every 24 hours, PRN as needed for migraine headache, not to exceed 75 mg in 24 hours. no refill in nder 30 days, # 8 tablet, 6 Refills, Maintenance, 12/10/20 12:36:00 EDT,DIS Tablet, [facility], has t... Start Date: 12/10/20 Stop Date: 07/08/21 Status: Ordered [place] 0.65% nasal spray 2 sprays, Nares, Both, 4 times a day, # 1 each, 0 Refills, Maintenance, 10/30/20 11:34:00 EDT, [facility], Partial fill [...] 19:25:00 EST, Aerosol, Route to Pharmacy Electronically, NCPDP_[id number], [facility], 158, cm, 05/06/21 6:58:00 EST, Height, [...] Gm, Refills 11, Route to Pharmacy Electronically, NCPDP_[id number], [facility], 158.02, cm, 11/13/20 8:38:00 EDT, Height, [...] 1resolved after weight loss 2chronic perst 3gyn 84202 5testing negative insulinoma 6likley dumping sydrome 7abnormal GTT ;sugar 36 two hours into test 8sees gi 9normal CT brain 10new 115.3 cm,right per ct scan recent;seeing gynecology soon;they will review 12vit d deficiency;correct 820479 14per endocrinology monitor 15correction refer GTT; 2 hour glucose 36 16refer GGT 17seeing ortho;pre op 18asma,ama neg/cerulopalsmain wnl,AAT wnl 19Negative hep A antibody positive hep B surface antibody negative antigen negative hep C, normal ferritin 20ukltrasound Diagnosis Diagnosis Type Effective Dates Health Status Cl inical Service Informant Pain in the abdomen Discharge Diagnosis 05/06/21 Vital Signs Most recent to oldest [Reference Range]: 1 Height 158 cm (05/06/21 6:58 AM) Weight 77.1 kg (05/06/21 6:58 AM) Oxygen Saturation [94-100 %] 74 % *L* (05/06/21 6:58 AM) Pulse Rate [55-90 bpm] 72 bpm (05/06/21 6:58 AM) Body Mass Index [18.5-24.99] 30.88 *>HHI* (05/06/21 6:58 AM) Blood Pressure [90-138/55-84 mm Hg] 112/ 70mm Hg (05/06/21 6:58 AM) Blood pressure sites Arm, left (05/06/21 6:58 AM) Weight Obtained Via Standing scale (05/06/21 6:58 AM) Social History Social History Type Response Smoking Status Never smoker entered on: 02/20/13 Sex
--- OUTSIDE RECORDS SUMMARY | 2022-08-17 08:45 | XMS_ITS | Continuity of Care Document ---
Author Name Unknown Organization [facility] Address Unknown Care Team Providers Care Slip Tender Name Role Phone Louisa LANDRUM, Taras Fuentes Primary Care Physician Encounter [facility] Date(s): 03/12/21 - 04/11/21 [facility] Attending Physician: Konrad Curtis Admitting Physician: [...] toxoids (Td) 08/03/05 Given 1Result Comment: [12/07/2017] [id number] 2Result Comment: [12/21/2016] [facility][NOTE 2]: [id number] 3Result Comment: [06/10/2015] #3 4Admin Note: per [...] 3 Refills, Maintenance, 02/03/21 8:34:00 EST, Tablet, [facility], Partial fill upon patient request if the prescript... Start Date: 02/03/21 Status: Ordered acarbose 50 mg oral tablet 1 tablet = 50 mg, By Mouth, 3 times a day, Take 1 tab (plus 1 25mg tab), 3 times daily with meals.,# 270 tablet, 3 Refills, Maintenance, 02/03/21 8:34:00 EST, Tablet, [facility], Partial fill [...] Refills, Maintenance, 03/03/21 16:42:00 EST, REC Powder, [facility], Partial fill upon [...] 0 Refills, Soft Stop, 03/16/21 16:05:00 EST, [facility], Partial fill upon patient request if the prescription is for a schedule II opioid drug., 158, cm, 03/11/21 9:1... Start Date: 03/16/21 Status: Ordered Emgality Prefilled Pen 120 mg/mL subcutaneous solution = 120 mg, Subcutaneous Injection, Once, Maintenance Dose, # 1 kit, 5 Refills, Soft Stop, 03/16/21 16:05:00 EST, [facility], Partial fill [...] 1 Refills, Maintenance, 04/06/21 9:45:00 EST, Solution, [facility], Partial [...] Date: 12/10/20 Stop Date: 07/08/21 Status: Ordered [place] 0.65% nasal spray 2 sprays, Nares, Both, [...] 8:26:00 EDT, Aerosol, Route to Pharmacy Electronically, NCPDP_[id number], [facility], 158.02, cm, 01/06/21 8:03:00 EDT, Height, 6... Start Date: 01/06/21 Status: Ordered Readi-Cat 2 oral suspension See Instructions, Follow direction for CT, # 2 each, 0 Refills, Maintenance, 04/08/21 16:08:00 EST,[facility], Partial fill upon patient request [...] Gm, Refills 11, Route to Pharmacy Electronically, NCPDP_[id number], [facility], 158.02, cm, 11/13/20 [...] 1resolved after weight loss 2chronic perst 3gyn 54564 5testing negative insulinoma 6likley dumping sydrome 7abnormal GTT ;sugar 36 two hours into test 8sees gi 9normal CT brain 10new 115.3 cm,right per ct scan recent;seeing gynecology soon;they will review 12vit d deficiency;correct 831769 14per endocrinology monitor 15correction refer GTT; 2 hour glucose 36 16refer GGT 17seeing ortho;pre op 18asma,ama neg/cerulopalsmain wnl,AAT wnl 19Negative hep A antibody positive hep B surface antibody negative antigen negative hep C, normal ferritin 20ukltrasound Social History Social History Type Response Smoking Status Never smoker entered on: 02/20/13 Sex
--- OUTSIDE RECORDS SUMMARY | 2022-08-17 08:45 | XMS_ITS | Continuity of Care Document ---
Author Name Unknown Organization [facility] Address [address] [place] [id number]- Care Team Providers Care Director Foundation Name Role Phone Eran Sue JOHNSON Primary Care Physician Encounter [facility] Date(s): 06/21/22 - 07/21/22 [facility] [address] [place] [id number]- [place] Allergies, Adverse Reactions, Alerts Substance Reaction Severity Status Dust Allergy to pollen Active Pollen seasonal allergies respiratory symptoms Active Incruse Ellipta 1 lightheaded and migraine Active 1dizzy Immunizations Given and Recorded Vaccine Date Status Refusal Reason [id number] 12y+ bivalent booster vax 1 12/24/21 Given [...] vaccine, inactivated 02/08/11 Give n SARS-CoV-2 mRNA (zdckknh-ysps-nuhts) vax 05/01/21 Recorded zoster vaccine, inactivated 11/03/20 [...] tetanus-diphtheria toxoids (Td) 08/03/05 Given 1Result Comment: [id number] 2Result Comment: [id number] 3Result Comment: [12/07/2017] [address]-70 4Result Comment: [12/21/2016] [facility]: 42643-566-95 5Result Comment: [06/10/2015] #3 6Admin Note: per pt 7Admin Note: given in clinic Medications acetaminophen 500 mg oral tablet 2 tablet = 1,000 mg, By Mouth, Every 6 hours, PRN as needed for fever, # 200 tablet, 0 Refills, Maintenance, 12/03/21 10:17:00 EDT, Tablet, [facility], Partial fill upon patient request if the prescription is for a schedule II opi... Start Date: 12/03/21 Status: Ordered Albuterol (Eqv-ProAir HFA) 90 mcg/inh inhalation aerosol 2 puffs, Inhalation, Every 4 hours, PRN NEEDED FOR WHEEZING, # 8.5 Gm, 5 Refills, Maintenance, 03/09/22 11:21:00 EST, [facility], 17, INHALE TWO PUFFS BY MOUTH [...] 6 Refills, Maintenance, 11/03/21 8:23:00 EDT, Tablet, [facility], 2 tablet By Mouth 2 times a day, 158, cm, 11/03/21 8:01:00 EDT,Height, 71.5, kg, 09/01/21 16:21:00 EDT, Dry Weight Start Date: 11/03/21 Status: Ordered Carafate 1 gm/10 ml oral suspension 10 mL = 1 Gm, By Mouth, 3 times a day before meals and bedtime, # 1,200 mL, 5 Refills, Maintenance,04/29/22 9:16:00 EST, [id number], Partial fill upon patient request if the prescription is for a schedule II opioid drug., 158, cm, 02... Start Date: 04/29/22 Status: Ordered cetirizine 10 mg oral tablet 1 tablet, By Mouth, Daily, # 30 tablet, 5 Refills, Maintenance, 06/03/22 11:40:00 EDT, [facility], 158, cm, 05/25/22 13:59:00 EDT, Height, [...] Refills, Maintenance, 05/30/22 7:57:00 EDT, CR Capsule, [facility], Partial fill upon patient request if the prescription is for a schedule II opioid... Start Date: 05/30/22 Status: Ordered Emgality Prefilled Pen 120 mg/mL subcutaneous solution = 120 mg, Subcutaneous Injection, Once, Maintenance Dose, # 3 kit, 2 Refills, Soft Stop, 07/14/22 10:04:00 EDT, [facility], requesting 3 month supply for cheaper [...] 6 Refills, Maintenance, 01/31/22 14:05:00 EST, Suspension, [facility], Partial fill upon patient request if the prescription is for a schedule II opioid drug., 163, cm, 01/18... Start Date: 01/31/22 Stop Date: 08/29/22 Status: Ordered Fiber Choice 1.5 g oral tablet, chewable 1 tablet = 1.5 Gm, Chew, 3 times a day, # 90 tablet, 0 Refills, Maintenance, 04/09/22 15:16:00 EST,Chew Tablet, [id number], Partial fill upon patient request if the [...] Refills, Maintenance, 04/09/22 15:16:00 EST, REC Powder, [facility][id number], Partial fill upon patient request if the prescription is for a schedule II opioid drug., 17 Gm... Start Date: 04/09/22 Status: Ordered montelukast 10 mg oral tablet 1, tablet, By Mouth, Daily in PM, # 90 tablet, Refills 1, Tot. Refills 1, Maintenance, 11/14/21 11:28:00 EDT, Route to Pharmacy Electronically, [facility], 158, cm, 11/03/21 8:01:00 EDT, Height, 71.5, kg, 09/01/21 16:21:00 EDT, Start Date: 11/14/21 Status: Ordered Nurtec ODT 75 mg oral tablet, disintegrating See Instructions, TAKE ONE TABLET DAILY NEEDED FOR migraines, DO NOT EXCEED ONE TABLET IN 24 HOURS, # 8 tablet, 6 Refills, Maintenance, 12/28/21 15:14:00 EDT, [facility], 163,cm, 12/24/21 8:20:00 EDT, Height, 67, [...] 0 Refills, Maintenance, 04/09/22 15:17:00 EST, Capsule, [facility] #[id number], Partial fill upon patient request if the prescription is for a schedule II opioid drug., 1 capsule By Mouth Daily in P... Start Date: 04/09/22 Status: Ordered Symbicort 160mcg/4.5mcg Inhaler 2, puffs, Inhalation, 2 times a day, rinse mouth and throat after use, # 10.2 Gm, Refills 2, Tot. Refills 2, Maintenance, 06/10/22 20:48:00 EDT, Route to Pharmacy Electronically, NCPDP_[id number], [facility], 158, cm, 06/07/22 10:... Start Date: [...] Active Vitamin D deficiency Confirmed Active 1gyn 56572 3testing negative insulinoma 4likley dumping sydrome 5abnormal GTT ;sugar 36 two hours into test 6normal CT brain 7new 8resolved after weight loss 9chronic perst 105.3 cm,right per ct scan recent;seeing gynecology soon;they will review 11vit d deficiency;correct 149446 13per endocrinology monitor 14correction refer GTT; 2 hour glucose 36 15refer GGT 16seeing ortho;pre op 17asma,ama neg/cerulopalsmain wnl,AAT wnl 18Negative hep A antibody positive hep B surface antibody negative antigen negative hep C, normal ferritin 19ukltrasound Social History Social History Type Response Smoking Status Never smoker entered on: 02/20/13 Sex Patient Care team information Care Team Personnel Name: Caitlyn Mcgee RN Position: [facility] RN Member Role: Primary Care Nurse Name: Sue Barillas NP Position: [facility] PCO Associate Professional Member Role: PCP Address: Address: [address] [place] [id number]- Name: Andria Guadalupe RN Position: [facility] RN Member Role: Primary Care Nurse Name: Liz Martin RN Position: [facility] RN Member Role: Primary Care Nurse Name: Ambreen Mcmahon RN Position: [facility] RN Member Role: Primary Care Nurse Name: Irais Grijalva RN Position: S RN Member Role: Primary Care Nurse Name: Autumn Martinez RN Position: [facility] SN RN Member Role: Primary Care Nurse Name: Liz English RN Position: S RN Member Role: Primary Care Nurse Name: Dora Williamson RN Position: [facility] RN Member Role: Primary Care Nurse Care Team Related Persons Name: KHUSHI CUNNINGHAM Address: home [address] [place] [address] Name: BHUPINDER VENEGAS Address: home [address] [place] [address] Name: FELIPE FLORES Address: home [address] [place] [address] Name: ARNAV FLORES Address: home [address] [place] [address] Name: IRINA FLORES Address: home [address] [place] [address] Name: RUSLAN FLORES Address: home [address] [place] [address] Name: KAISER PLUNKETT Address: home [address] [place] [address]
--- OUTSIDE RECORDS SUMMARY | 2022-08-17 08:45 | XMS_ITS | Continuity of Care Document ---
Author Name Unknown Organization [facility] Address [address] [place] [address]- Care Team Providers Care Lpn Rn Name Role Phone Louisa LANDRUM, Taras Fuentes Primary Care Physician Encounter [facility] Date(s): 06/19/20 - 07/19/20 [facility] [address] [place] [id number] Allergies, Adverse Reactions, Alerts [...] toxoids (Td) 08/03/05 Given 1Result Comment: [12/07/2017] [address]-29 2Result Comment: [12/21/2016] [facility]: 86605-958-49 3Result Comment: [06/10/2015] #3 4Admin Note: per pt 5Admin Note: given in clinic Medications acarbose 25 mg oral tablet 1 tablet = 25 mg, By Mouth, 3 times a day, Take 1 tablet 3 times daily with meals. Add to 50mg dosefor total of 75mg 3 times daily. E11.65, # 270 tablet, 3 Refills, Maintenance, 07/15/20 12:23:00 EDT, Tablet, [facility], Partial... Start Date: 07/15/20 Status: Ordered acarbose 50 mg oral tablet 1 tablet = 50 mg, By Mouth, 3 times a day, Take 3 times daily with meals. E11.65, # 90 tablet, 5 Refills, Maintenance, 07/13/20 16:29:00 EDT, Tablet, [facility], [...] 0 Refills, Maintenance, 07/03/19 13:59:00 EDT, Solution, [facility], 160, cm, 05/29/19 [...] 60 capsule, 5 Refills, Maintenance, 05/07/20 15:54:00EST, [facility], 160.02, cm, 05/01/20 [...] 1 Refills, Soft Stop, 11/20/19 11:59:00 EDT, [facility], 160.02, cm, 11/15/19 [...] 02/25/19 16:55:00 EST, Route to Pharmacy Electronically, [facility], 158, cm, 02/14/19 7:55:00 EST, Height, 61.9, kg, 02/12/19 10:17:00... Start Date: 02/25/19 Status: Ordered montelukast 10 mg oral tablet 10 mg, 1, tablet, By Mouth, Daily in PM, # 90 tablet, Refills 3, Tot. Refills 3, Maintenance, 08/15/19 16:21:00 EDT, Route to Pharmacy Electronically, [facility], 160, cm, 08/15/19 13:45:00 EDT, Height, 56.5, kg, 05/29/19 13:36:00... Start Date: 08/15/19 Status: Ordered ProAir HFA 90 mcg/inh inhalation aerosol with adapter 2, puffs, Inhalation, Every 4 hours, PRN, # 8.5 Gm, Refills 2, Tot. Refills 2, Maintenance, 04/29/19 11:32:00 EST, Aerosol, Route to Pharmacy Electronically, NCPDP_[id number], [facility], 160, cm, 04/29/19 10:47:00 EST, Height... Start Date: 04/29/19 Status: Ordered rifAXIMin 550 mg oral tablet 1 tablet = 550 mg, By Mouth, 3 times a day, # 42 tablet, 0 Refills, Maintenance, 07/14/20 13:37:00 EDT, Tablet, [facility], [...] 6 Refills, Maintenance, 03/12/20 11:09:00 EST, Tablet, [facility], weaning zonegran off [...] 6 Refills, Soft Stop, 03/12/20 11:04:00 EST, [facility], Partial fill [...] 0 Refills, Maintenance, 06/13/20 14:10:00 EDT, Capsule, [facility],... Start Date: 06/13/20 [...] 1resolved after weight loss 2chronic perst 3gyn [address] 5testing negative insulinoma 6likley dumping sydrome 7abnormal GTT ;sugar 36 two hours into test 8sees gi 9normal CT brain 10new 115.3 cm,right per ct scan recent;seeing gynecology soon;they will review 12vit d deficiency;correct 648217 14per endocrinology monitor 15correction refer GTT; 2 hour glucose 36 16refer GGT 17seeing ortho;pre op 18asma,ama neg/cerulopalsmain wnl,AAT wnl 19Negative hep A antibody positive hep B surface antibody negative antigen negative hep C, normal ferritin 20ukltrasound Social History Social History Type Response Smoking Status Never smoker entered on: 02/20/13 Sex
--- OUTSIDE RECORDS SUMMARY | 2022-08-17 08:45 | XMS_ITS | Continuity of Care Document ---
Author Name Unknown Organization [facility] Address [address] [place] [address]- Care Team Providers Care Branch Officer Name Role Phone Eran CONCRETE CURER, Sue Dahl Primary Care Physician Encounter [facility] Date(s): 07/13/21 - 08/12/21 [facility] [address] [place] [address]- Allergies, Adverse Reactions, Alerts Substance Reaction Severity Status Dust Allergy to pollen Active Pollen seasonal allergies respiratory symptoms Active Incruse Ellipta 1 lightheaded and migraine Active 1dizzy Immunizations Given and Recorded Vaccine Date Status Refusal Reason SARS-CoV-2 mRNA (ypaxgcs-mklk-nlxgs) vax 05/01/21 Recorded influenza virus vaccine, inactivated [...] toxoids (Td) 08/03/05 Given 1Result Comment: [12/07/2017] [address]-02 2Result Comment: [12/21/2016] [facility]: 32700-171-86 3Result Comment: [06/10/2015] #3 4Admin Note: per [...] Refills, Maintenance, 03/03/21 16:42:00 EST, REC Powder, [facility], Partial fill upon [...] 30 mL, 1 Refills, 06/28/21 13:52:00 EDT, [facility], 158, cm, 05/24/21 16:05:00 EDT, [...] 0 Refills, Soft Stop, 03/16/21 16:05:00 EST, [facility], Partial fill upon [...] 1 Refills, Maintenance, 04/06/21 9:45:00 EST, Solution, [facility], Partial [...] Date: 12/10/20 Stop Date: 07/08/21 Status: Ordered [facility] 0.65% nasal spray 2 sprays, Nares, Both, 4 times a day, # 1 each, 3 Refills, Maintenance, 05/14/21 11:40:00 EST, [facility], Partial fill upon patient request if the prescription is for a scheduleII opioid drug., 2 sprays Nares, Both 4 times a day... Start Date: 05/14/21 Status: Ordered ProAir HFA 90 mcg/inh inhalation aerosol with adapter 2, puffs, Inhalation, Every 4 hours, PRN, # 8.5 Gm, Refills 1, Tot. Refills 1, Maintenance, 05/13/21 19:25:00 EST, Aerosol, Route to Pharmacy Electronically, NCPDP_[id number], [facility], 158, cm, 05/06/21 6:58:00 EST, [...] Gm, Refills 11, Route to Pharmacy Electronically, NCPDP_[id number], [facility], 158.02, cm, 11/13/20 [...] 1resolved after weight loss 2chronic perst 3gyn [address] 5testing negative insulinoma 6likley dumping sydrome 7abnormal GTT ;sugar 36 two hours into test 8sees gi 9normal CT brain 10new 115.3 cm,right per ct scan recent;seeing gynecology soon;they will review 12vit d deficiency;correct 797199 14per endocrinology monitor 15correction refer GTT; 2 hour glucose 36 16refer GGT 17seeing ortho;pre op 18asma,ama neg/cerulopalsmain wnl,AAT wnl 19Negative hep A antibody positive hep B surface antibody negative antigen negative hep C, normal ferritin 20ukltrasound Social History Social History Type Response Smoking Status Never smoker entered on: 02/20/13 Sex
--- OUTSIDE RECORDS SUMMARY | 2022-08-17 08:45 | XMS_ITS | Continuity of Care Document ---
Author Name Unknown Organization [facility] Address [address] [place] [address]- Care Team Providers Care Plug Paster Name Role Phone Eran DISTANCE EDUCATION FACULTY LIAISON, Sue Dahl Primary Care Physician [phone] Encounter [facility] Date(s): 01/18/22 - 02/17/22 [facility] [address] [place] [address]- Allergies, Adverse Reactions, Alerts Substance Reaction Severity Status Dust Allergy to pollen Active Incruse Ellipta 1 lightheaded and migraine Active Pollen seasonal allergies respiratory symptoms Active 1dizzy Immunizations Given and Recorded Vaccine Date Status Refusal Reason [id number] 12y+ bivalent booster vax 1 12/24/21 Given [...] vaccine, inactivated 02/08/11 Give n SARS-CoV-2 mRNA (ovwqnlk-bxfk-jcaxp) vax 05/01/21 Recorded zoster vaccine, inactivated 11/03/20 [...] tetanus-diphtheria toxoids (Td) 08/03/05 Given 1Result Comment: [address]-3 2Result Comment: 61031-904-26 3Result Comment: [12/07/2017] [address]-60 4Result Comment: [12/21/2016] [facility]: [id number] 5Result Comment: [06/10/2015] #3 6Admin Note: per pt 7Admin Note: given in clinic Medications acarbose 25 mg oral tablet See Instructions, 1 tablet with 50 mg (total 75 mg) By Mouth before lunch, # 30 each, 11 Refills, Maintenance, 11/03/21 8:24:00 EDT, Tablet, [facility], 158, cm, 11/03/21 8:01:00EDT, Height, 71.5, kg, 09/01/21 16:21:00 EDT, Dry W... Start Date: 11/03/21 Status: Ordered acarbose 50 mg oral tablet See Instructions, 1 tablet with 25 mg (total 75 mg) By Mouth before lunch, # 30 each, 11 Refills, Maintenance, 11/03/21 8:23:00 EDT, Tablet, [facility], Partial fill upon patientrequest if the prescription is for a schedule II op... Start Date: 11/03/21 Status: Ordered acetaminophen 500 mg oral tablet 2 tablet = 1,000 mg, By Mouth, Every 6 hours, PRN as needed for fever, # 200 tablet, 0 Refills, Maintenance, 12/03/21 10:17:00 EDT, Tablet, [facility], Partial fill upon patient request if the prescription is for a schedule II opi... Start Date: 12/03/21 Status: Ordered Albuterol (Eqv-ProAir HFA) 90 mcg/inh inhalation aerosol 2 puffs, Inhalation, Every 4 hours, PRN NEEDED FOR WHEEZING, # 8.5 Gm, 1 Refills, Maintenance, 12/03/21 14:16:00 EDT, [facility], 18, INHALE TWO PUFFS EVERY 4 HOURS NEEDED FOR WHEEZING, 163, cm, 12/03/21 9:39:00 EDT, Height,... Start Date: 12/03/21 Status: Ordered calcium (as citrate)-vitamin D 315 mg-250 intl units oral tablet 2 tablet, By Mouth, 2 times a day, # 120 tablet, 6 Refills, Maintenance, 11/03/21 8:23:00 EDT, Tablet, [facility], 2 tablet By Mouth 2 [...] Refills, Maintenance, 11/22/21 9:49:00 EDT, CR Capsule, [facility], Partial fill upon patient request if the prescription is for a schedule II opioid... Start Date: 11/22/21 Status: Ordered Emgality Prefilled Pen 120 mg/mL subcutaneous solution = 120 mg, Subcutaneous Injection, Once, Maintenance Dose, # 1 kit, 6 Refills, Soft Stop, 02/08/22 9:15:00 EST, [facility], Partial [...] 6 Refills, Maintenance, 01/31/22 14:05:00 EST, Suspension, [facility], Partial fill [...] 11/15/21 10:56:00 EDT, Route to Pharmacy Electronically, [facility], 158, cm, 11/03/21 8:01:00 EDT, Height, 71.5, kg, 09/01/21 16:21:00 EDT, Mark Start Date: 11/15/21 Status: Ordered montelukast 10 mg oral tablet 1, tablet, By Mouth, Daily in PM, # 90 tablet, Refills 1, Tot. Refills 1, Maintenance, 11/14/21 11:28:00 EDT, Route to Pharmacy Electronically, [facility], 158, cm, 11/03/21 8:01:00 EDT, Height, 71.5, kg, 09/01/21 16:21:00 EDT, Start Date: 11/14/21 Status: Ordered Nurtec ODT 75 mg oral tablet, disintegrating See Instructions, TAKE ONE TABLET DAILY NEEDED FOR migraines, DO NOT EXCEED ONE TABLET IN 24 HOURS, # 8 tablet, 6 Refills, Maintenance, 12/28/21 15:14:00 EDT, [facility], 163,cm, 12/24/21 8:20:00 EDT, Height, 67, kg, 11/26/21... Start Date: 12/28/21 Status: Ordered Paxlovid 150 mg-100 mg (150 mg-100 mg Dose) oral tablet See Instructions, Take 3 tablets by mouth twice a day for 5 days GFR avove 60, # 30 tablet, 0 Refills, Maintenance, 01/18/22 8:00:00 EST, [facility], Partial [...] 11/23/21 19:57:00 EDT, Route to Pharmacy Electronically, NCPDP_[id number], [facility], 158, cm, 11/03/21 8:0... Start [...] 5 Refills, Maintenance, 12/10/21 9:44:00 EDT, Tablet, [facility], [...] Active Vitamin D deficiency Confirmed Active 1gyn 67531 3testing negative insulinoma 4likley dumping sydrome 5abnormal GTT ;sugar 36 two hours into test 6sees gi 7normal CT brain 8new 9resolved after weight loss 10chronic perst 115.3 cm,right per ct scan recent;seeing gynecology soon;they will review 12vit d deficiency;correct 667295 14per endocrinology monitor 15correction refer GTT; 2 hour glucose 36 16refer GGT 17seeing ortho;pre op 18asma,ama neg/cerulopalsmain wnl,AAT wnl 19Negative hep A antibody positive hep B surface antibody negative antigen negative hep C, normal ferritin 20ukltrasound Social History Social History Type Response Smoking Status Never smoker entered on: 02/20/13 Sex Patient Care team information Care Team Personnel Name: Caitlyn Mcgee RN Position: [facility] RN Member Role: Primary Care Nurse Name: Sue Barillas NP Position: [facility] PCO Associate Professional Member Role: PCP Address: Address: [address] [place] [id number] Name: Andria Guadalupe RN Position: [facility] SN RN Member Role: Primary Care Nurse Name: Liz Martin RN Position: [facility] RN Member Role: Primary Care Nurse Name: Ambreen Mcmahon RN Position: [facility] RN Member Role: Primary Care Nurse Name: Irais Grijalva RN Position: [facility] RN Member Role: Primary Care Nurse Name: Autumn Martinez RN Position: [facility] SN RN Member Role: Primary Care Nurse Name: Concha Mckinley RN Position: [facility] RN Member Role: Primary Care Nurse Name: Liz English RN Position: [facility] RN Member Role: Primary Care Nurse Name: Dora Williamson RN Position: [facility] RN Member Role: Primary Care Nurse Care Team Related Persons Name: KHUSHI CUNNINGHAM Address: home [address] [place] [address] Name: BHUPINDER VENEGAS Address: home [address] [place] [address] Name: FELIPE FLORES Address: home [address] [place] [address] Name: ARNAV FLORES Address: home [address] [place], [place] Name: IRINA FLORES Address: home [address] [place] [address] Name: RUSLAN FLORES Address: home [address] [place] [address] Name: KAISER PLUNKETT Address: home [address] [place] [address]
--- OUTSIDE RECORDS SUMMARY | 2022-08-17 08:45 | XMS_ITS | Continuity of Care Document ---
Author Name Unknown Organization [facility] Address [address] [place] [address]- Care Team Providers Care Loading Supervisor Name Role Phone Louisa LANDRUM, Taras Fuentes Primary Care Physician [place] [facility] [place] [id number] Date(s): 11/25/20 - 12/25/20 [facility] [address] [place] [address]- Attending Physician: Konrad Curtis Admitting Physician: AdmKonrad ruvalcaba Referring Physician: Admtr, Casper8 Allergies, Adverse Reactions, Alerts Substance Reaction Severity [...] toxoids (Td) 08/03/05 Given 1Result Comment: [12/07/2017] [address]-58 2Result Comment: [12/21/2016] [facility]: 28972-746-38 3Result Comment: [06/10/2015] #3 4Admin Note: per pt 5Admin Note: given in clinic Medications acarbose 50 mg oral tablet 1 tablet = 50 mg, By Mouth, 3 times a day, Take 3 times daily with meals. E11.65, # 90 tablet, 5 Refills, Maintenance, 07/13/20 16:29:00 EDT, Tablet, [facility], Partial [...] 0 Refills, Maintenance, 07/03/19 13:59:00 EDT, Solution, [facility], 160, cm, 05/29/19 13:36:00 EDT, Height, 56.5, kg, 03... Start Date: 07/03/19 Status: Ordered Baqsimi One Pack 3 mg nasal powder See Instructions, 3 mg Once intrasnasally for severe hypoglycemia, # 2 each, 3 Refills, Soft Stop, 08/28/20 10:36:00 EDT, [facility], Partial fill [...] 5 Refills, Maintenance, 11/06/20 10:28:00 EDT, Tablet, [facility], Replaces loratidine, 158.02, cm, [...] 1 Refills, Soft Stop, 11/20/19 11:59:00 EDT, [facility], 160.02, cm, 11/15/19 10:05:00 [...] 0 Refills, Maintenance, 11/03/20 7:49:00 EDT, Tablet, [facility], Partial fill upon patient request if the prescription is for... Start Date: 11/03/20 Status: Ordered montelukast 10 mg oral tablet 10 mg, 1, tablet, By Mouth, Daily in PM, # 90 tablet, Refills 3, Tot. Refills 3, Maintenance, 08/15/19 16:21:00 EDT, Route to Pharmacy Electronically, [facility], 160, cm, 08/15/19 13:45:00 [...] Date: 12/10/20 Stop Date: 07/08/21 Status: Ordered Lehigh 0.65% nasal spray 2 sprays, Nares, Both, 4 times a day, # 1 each, 0 Refills, Maintenance, 10/30/20 11:34:00 EDT, [facility], Partial fill [...] 11:32:00 EST, Aerosol, Route to Pharmacy Electronically, NCPDP_[id number], [facility], 160, cm, 04/29/19 10:47:00 EST, Height... Start Date: 04/29/19 Status: Ordered Reclast = 5 mg, IV Infusion, Once, 0 Refills, Maintenance, 11/06/20 10:24:00 EDT, administered at [facility] 10/2020 Start Date: 11/06/20 Status: Ordered Symbicort 160mcg/4.5mcg Inhaler 2, puffs, Inhalation, 2 times a day, with spacer., # 10.2 Gm, Refills 11, Route to Pharmacy Electronically, NCPDP_[id number], [facility], 158.02, cm, 11/13/20 8:38:00 [...] 1resolved after weight loss 2chronic perst 3gyn 32887 5testing negative insulinoma 6likley dumping sydrome 7abnormal GTT ;sugar 36 two hours into test 8sees gi 9normal CT brain 10new 115.3 cm,right per ct scan recent;seeing gynecology soon;they will review 12vit d deficiency;correct [id number] 14per endocrinology monitor 15correction refer GTT; 2 hour glucose 36 16refer GGT 17seeing ortho;pre op 18asma,ama neg/cerulopalsmain wnl,AAT wnl 19Negative hep A antibody positive hep B surface antibody negative antigen negative hep C, normal ferritin 20ukltrasound Social History Social History Type Response Smoking Status Never smoker entered on: 02/20/13 Sex
--- OUTSIDE RECORDS SUMMARY | 2022-08-17 08:45 | XMS_ITS | Continuity of Care Document ---
Author Name Unknown Organization [facility] Address [address] [place] [address]- Care Team Providers Care Reconciliation Manager Name Role Phone Eran Sue JOHNSON Primary Care Physician [phone] Encounter [facility] Date(s): 12/12/21 - 01/11/22 [facility] [address] [place] [id number] Allergies, Adverse Reactions, Alerts Substance Reaction Severity Status Dust Allergy to pollen Active Pollen seasonal allergies respiratory symptoms Active Incruse Ellipta 1 lightheaded and migraine Active 1dizzy Immunizations Given and Recorded Vaccine Date Status Refusal Reason [id number] 12y+ bivalent booster vax 1 12/24/21 Given [...] vaccine, inactivated 02/08/11 Give n SARS-CoV-2 mRNA ([id number]) vax 05/01/21 Recorded zoster vaccine, inactivated 11/03/20 [...] tetanus-diphtheria toxoids (Td) 08/03/05 Given 1Result Comment: [address]-9 2Result Comment: 55584-389-40 3Result Comment: [12/07/2017] [address]-00 4Result Comment: [12/21/2016] [facility]: 08751-415-37 5Result Comment: [06/10/2015] #3 6Admin Note: per [...] 6 Refills, Soft Stop, 12/30/21 12:19:00 EDT, [facility], Partial fill [...] 11/23/21 19:57:00 EDT, Route to Pharmacy Electronically, NCPDP_[id number], [facility], 158, cm, 11/03/21 [...] Active Vitamin D deficiency Confirmed Active 1gyn 57609 3testing negative insulinoma 4likley dumping sydrome 5abnormal GTT ;sugar 36 two hours into test 6sees gi 7normal CT brain 8new 9resolved after weight loss 10chronic perst 115.3 cm,right per ct scan recent;seeing gynecology soon;they will review 12vit d deficiency;correct [id number] 14per endocrinology monitor 15correction refer GTT; 2 [...] Professional Member Role: PCP Address: Address: [address] [place] [address]- Name: Andria Guadalupe RN Position: [facility] [...] Care Nurse Name: Concha Mckinley RN Position: [facility] RN Member Role: Primary Care Nurse Name: Liz English RN Position: S RN Member Role: Primary Care Nurse Name: Dora Williamson RN Position: S RN Member Role: Primary Care Nurse Care Team Related Persons Name: KHUSHI CUNNINGHAM Address: home [address] [place] [address] Name: BHUPINDER VENEGAS Address: [address] [place] [address] Name: FELIPE FLORES Address: home [address] [place] [address] Name: ARNAV FLORES Address: home [address] [place] [address] Name: IRINA FLORES Address: home [address] [place] [address] Name: RUSLAN FLORES Address: home [address] [place] [address] Name: KAISER PLUNKETT Address: home [address] [place] [address]
--- OUTSIDE RECORDS SUMMARY | 2022-08-17 08:45 | XMS_ITS | Continuity of Care Document ---
Author Name Unknown Organization [facility] Address [address] [place] [address]- Care Team Providers Care Tung Nut Grower Name Role Phone Louisa LANDRUM, Taras Fuentes Primary Care Physician Encounter [facility] Date(s): 05/18/19 - 06/27/[address] [address]- [facility] Attending Physician: Sue Barillas NP Admitting Physician: [...] toxoids (Td) 08/03/05 Given 1Result Comment: [12/07/2017] [id number] 2Result Comment: [12/21/2016] [facility]: 42059-606-31 3Result Comment: [06/10/2015] #3 4Admin Note: per [...] 11:32:00 EST, Aerosol, Route to Pharmacy Electronically, NCPDP_[id number], [facility], 160, cm, 04/29/19 10:47:00 EST, Height... Start Date: 04/29/19 Status: Ordered rizatriptan 10 mg oral tablet 1 tablet = 10 mg, By Mouth, Daily, PRN for migraine headache, # 9 tablet, 5 Refills, Soft Stop, 06/04/19 15:37:00 EDT, Tablet, [facility], sumatriptan ineffective. If insurance says [...] 5 Refills, Maintenance, 05/30/19 11:48:00 EDT, Capsule, [facility] [...] perst 3folowed by mental health;recent hospitalization 4gyn 35044 6testing negative insulinoma 7likley dumping sydrome 8abnormal GTT ;sugar 36 two hours into test 9sees gi 10normal CT brain 11new 125.3 cm,right per ct scan recent;seeing gynecology soon;they will review 13vit d deficiency;correct 278883 15per endocrinology monitor 16correction refer GTT; 2 hour glucose 36 17refer GGT 18seeing ortho;pre op 19asma,ama neg/cerulopalsmain wnl,AAT wnl 20Negative hep A antibody positive hep B surface antibody negative antigen negative hep C, normal ferritin 21ukltrasound Social History Social History Type Response Smoking Status Never smoker entered on: 02/20/13 Sex
--- OUTSIDE RECORDS SUMMARY | 2022-08-17 08:45 | XMS_ITS | Continuity of Care Document ---
Author Name Unknown Organization [facility] Address [address] [place] [address]- Care Team Providers Care Computer Security Specialist Name Role Phone Taras Jasso MD Primary Care Physician [phone] Encounter [facility] Date(s): 08/28/19 - 09/04/19 [facility] [address] [place] [address]- [facility] Encounter Diagnosis Fatigue(Discharge Diagnosis) - 08/28/19 Ecchymosis(Discharge Diagnosis) - 08/28/19 Attending Physician: Taras Jasso MD Allergies, Adverse [...] 11/28/11 Given Influenza Virus Vaccine (oldterm) 4 1/19/10 Given Influenza Virus Vaccine (oldterm) 01/04/07 Given Influenza Inactive (IM) (oldterm) 5 12/25/07 Given tetanus-diphtheria toxoids (Td) 08/03/05 Given 1Result Comment: [12/07/2017] [address]-56 2Result Comment: [12/21/2016] [facility]: [id number] 3Result Comment: [06/10/2015] #3 4Admin Note: per [...] 07/07/2012:36:00 EDT, Aerosol, Route to Pharmacy Electronically, NCPDP_[id number], [facility], 160, [...] 05/17/19 12:02:00 EDT, Route to Pharmacy Electronically, [facility], 160, cm, 05/16/19 10:27:00 EDT, Height, 62.9, kg, 05/12/19 9:1... Start Date: 05/17/19 Status: Ordered famotidine 40 mg oral tablet 1/2 tablet, By Mouth, Daily at bedtime, famotidine 20mg backordered. please take 1/2 tab daily, # 30 each, 1 Refills, Maintenance, 07/30/19 10:21:00 EDT, [facility], 160, [...] 11:32:00 EST, Aerosol, Route to Pharmacy Electronically, NCPDP_[id number], [facility] - [...] 07/08/19 13:36:00 EDT, Route to Pharmacy Electronically, NCPDP_[id number], [facility], 160, cm, 07/08/19 13:03:00 ED... Start Date: 07/08/19 Status: Ordered Topamax 50 mg oral tablet 1 tablet = 50 mg, By Mouth, Daily at bedtime, after weaning off zonegran, take 50mg at HS for 2 weeks then increase to 100mg at HS, # 30 tablet, 6 Refills, Maintenance, 07/16/19 10:51:00 EDT, Tablet,[facility], weaning zonegran o... Start Date: 07/16/19 [...] perst 3folowed by mental health;recent hospitalization 4gyn [address] 6testing negative insulinoma 7likley dumping sydrome 8abnormal GTT ;sugar 36 two hours into test 9sees gi 10normal CT brain 11new 125.3 cm,right per ct scan recent;seeing gynecology soon;they will review 13vit d deficiency;correct 279501 15per endocrinology monitor 16correction refer GTT; 2 hour glucose 36 17refer GGT 18seeing ortho;pre op 19asma,ama neg/cerulopalsmain wnl,AAT wnl 20Negative hep A antibody positive hep B surface antibody negative antigen negative hep C, normal ferritin 21ukltrasound Diagnosis Diagnosis Type Effective Dates Health Status Clini [facility] Service Informant Fatigue Discharge Diagnosis 08/28/19 Ecchymosis Discharge Diagnosis 08/28/19 Vital Signs Most recent to oldest [Reference Range]: 1 Height 160 cm (08/28/19 9:26 AM) Weight 67.9 kg (08/28/19 9:26 AM) Oxygen Saturation [94-100 %] 98 % (08/28/19 9:26 AM) Pulse Rate [55-90 bpm] 78 bpm (08/28/19 9:26 AM) Body Mass Index [18.5-24.99] 26.52 *H* (08/28/19 9:26 AM) Blood Pressure [90-138/55-84 mm Hg] 98/6 2mm Hg (08/28/19 9:26 AM) Respiratory Rate [16-30 br/min] 16 br/mi n (08/28/19 9:26 AM) Temperature [96.8-100.4 DegF] 98.6 DegF (08/28/19 9:26 AM) Blood pressure sites Arm, left (08/28/19 9:26 AM) Temperature Route Oral (08/28/19 9:26 AM) Social History Social History Type Response Smoking Status Never smoker entered on: 02/20/13 Sex
--- OUTSIDE RECORDS SUMMARY | 2022-08-17 08:46 | XMS_ITS | Continuity of Care Document ---
Author Name Unknown Organization [facility] ter Address [address] [place] [id number]- Care Team Providers Care Hunter Guide Name Role Phone Eran SLASHER SAWYER, Sue Dahl Primary Care Physician Encounter [facility] Date(s): 03/24/22 - 03/24/[address] [address] Discharge Disposition: A-D/C Home Attending Physician: Avery Costello MD Admitting Physician: Avery Costello MD Referring Physician: Avery Costello MD Allergies, Adverse Reactions, Alerts Substance Reaction Severity Status Dust Allergy to pollen Active Pollen seasonal allergies respiratory symptoms Active Incruse Ellipta 1 lightheaded and migraine Active 1dizzy Immunizations Given and Recorded Vaccine Date Status Refusal Reason LTVC-HvU-0cEIU 12y+ bivalent booster vax 1 12/24/21 Given [...] vaccine, inactivated 02/08/11 Give n SARS-CoV-2 mRNA (dxdaswf-ozol-muwun) vax 05/01/21 Recorded zoster vaccine, inactivated 11/03/20 Recorded zoster vaccine, inactivated 08/10/20 Recorded SARS-CoV-2 (COVID-19) mRNA BNT-162b2 vac 2/4/21 Recorded SARS-CoV-2 (COVID-19) mRNA BNT-162b2 vac 03/19/20 [...] tetanus-diphtheria toxoids (Td) 08/03/05 Given 1Result Comment: [address]-6 2Result Comment: 45496-731-64 3Result Comment: [12/07/2017] [id number] 4Result Comment: [12/21/2016] [facility]: 43436-680-12 5Result Comment: [06/10/2015] #3 6Admin Note: per [...] Gm, 5 Refills, Maintenance, 03/09/22 11:21:00 EST, [facility], 17, INHALE TWO PUFFS [...] 2 Refills, Soft Stop, 03/17/22 8:08:00 EST, [facility], requesting 3 month supply [...] 03/24/22 14:12:00 EST, Route to Pharmacy Electronically, [facility], Partial fill upon p... Start Date: [...] 11/23/21 19:57:00 EDT, Route to Pharmacy Electronically, [id number], [facility] [...] Active Vitamin D deficiency Confirmed Active 1gyn 67266 3testing negative insulinoma 4likley dumping sydrome 5abnormal GTT ;sugar 36 two hours into test 6normal CT brain 7new 8resolved after weight loss 9chronic perst 105.3 cm,right per ct scan recent;seeing gynecology soon;they will review 11vit d deficiency;correct [id number] 13per endocrinology monitor 14correction refer GTT; 2 hour glucose 36 15refer GGT 16seeing ortho;pre op 17asma,ama neg/cerulopalsmain wnl,AAT wnl 18Negative hep A antibody positive hep B surface antibody negative antigen negative hep C, normal ferritin 19ukltrasound Vital Signs Most recent to oldest [Reference Range]: 1 2 3 Height 158 cm (03/24/22 12:21 PM) 158 cm (03/22/22 11:54 AM) Weight 64.8 kg (03/24/22 12:21 PM) 64.6 kg (03/22/22 11:54 AM) Oxygen Saturation [94-100 %] 100 % (03/24/22 2:45 PM) 99 % (03/24/22 2:30 PM) 100 % (03/24/22 2:15 PM) Pulse Rate [55-90 bpm] 68 bpm (03/24/22 12:21 PM) Body Mass Index [18.5-24.99 kg/m2] 25.96 kg/m2 *H* (03/24/22 12:21 PM) 25.88 kg/m2 *H* (03/22/22 11:54 AM) Blood Pressure [90-138/55-84 mm Hg] 120/79mm Hg (03/24/22 2:45 PM) 117/70mm Hg (03/24/22 2:30 PM) 132/84mm Hg (03/24/22 2:15 PM) Respiratory Rate [16-30 br/min] 20 br/min (03/24/22 2:45 PM) 16 br/min (03/24/22 2:30 PM) 21 br/min (03/24/22 2:15 PM) Temperature [96.8-100.4 DegF] 97 DegF (03/24/22 2:15 PM) 98.2 DegF (03/24/22 12:21 PM) Liters per Minute 6 L/min (03/24/22 2:15 PM) Mode of Delivery (Oxygen) Room air (03/24/22 3:00 PM) Room air (03/24/22 2:45 PM) Room air (03/24/22 2:30 PM) Blood pressure sites Arm, left (03/24/22 2:15 PM) Arm, left (03/24/22 12:21 PM) Temperature Route Temporal (03/24/22 2:15 PM) Temporal (03/24/22 12:21 PM) Dry Weight 64.8 kg (03/24/22 12:21 PM) 64.6 kg (03/22/22 11:54 AM) Weight Obtained Via Standing scale (03/24/22 12:21 PM) Patient/family stated (03/22/22 11:54 AM) Dry Weight Obtained Via Standing scale (03/24/22 12:21 PM) Patient/family stated (03/22/22 11:54 AM) Social History Social History Type Response Smoking Status Never smoker entered on: 02/20/13 Sex Note * Fabiana Godinez RN: PERFORM, MODIFY Event Display: Patient Education/Instruction Authored Date: [id number] Inpatient Adult Discharge Instructions [address] [address] Name: IONA SOTOMAYOR : 1970 Visit: 03/24/2022 11:47:00 Current Date: 03/24/2022 14:27 Account: [id number] Inpatient Adult Discharge Instructions We would like to thank you for allowing us to assist you with your healthcare needs. The following includes patient education materials and information regarding your injury/illness. Our entire staffstrives to provide an excellent experience for our patients and their families. PLEASE ENSURE YOU FOLLOW-UP PER THE INSTRUCTIONS BELOW! ?? YOUR OPINION IS IMPORTANT TO US! Please complete the survey you may receive by mail or email. Your feedback will be used to make improvements to the healthcare experiences of our patients and their families. Surveys are administered by [employer] ?? If further treatment with your primary care physician or another doctor is recommended, it is important for you to keep the appointment. Call your primary care physician or return to the Emergency Department immediately if your condition worsens, fails to improve, or new symptoms develop. If you need to find a doctor, you can call [facility] [employer] [facility] for a referral at [phone] or toll free at [phone]) or log in to [email or web address].. ?? You can view and manage your care through the patient portal or by using a health care mundo of your choosing. [employer] is a website that allows you to securely view your medical information including your hospital discharge summary, office visit summaries, medications and follow-up visits. You can also request appointments, renew medications, and request access to your medical information using a health care mundo of your choosing, or just ask a question. You can enroll at [email or web address] or register during your next office visit. You have been discharged from [facility], Patient Care Unit: [facility]. If you have any questions regarding these instructions after you leave, please call us and we will be happy to assist you. [facility] Your Care Team Attending Physician Pravin LANDRUM, Avery Smith Consulting Providers Nicholas LANDRUM, [facility] Discharging Providers Anel LANDRUM, Sheeba Reason for Admission PERIUMBILICAL HERNIA CS DS Tests Performed Below is a partial list of the tests performed during your hospitalization. You may have had other tests and procedures not included in this list. Please discuss all test results with your provider. Primary Care Provider Eran Sue JOHNSON Advance Directive Health Care Proxy on File Yes - Health Care Proxy No qualifying data available. Discharge Vitals Temperature: 97 DegF Height: 158 cm Pulse Rate: 68 bpm Weight: 64.8 kg Respiratory Rate: 21 br/min Body Mass Index:??25.96 kg/m2??High Systolic Blood Pressure: 132 mm Hg Body surface area: 1.69 Diastolic Blood Pressure: 84 mm Hg ?? Oxygen Saturation: 100 % ?? Studies Pending All tests and labs ordered during this hospital stay have been completed unless listed below. Please discuss all pending results with your provider listed above in these instructions. ?? No incomplete studies found What to do next Instructions From Your Doctor Special Instructions ?? If you develop fever, chills, increased pain, nausea, vomiting, bleeding, or increased redness or pus around the wound please call the surgery office. Please take medications as prescribed and do notdrive while on narcotic medications. ?? Please call your Primary Care Provider within 1 week for post hospital follow up and review of yourmedications. ?? Your follow-up appointment is booked for 04/06/22 at 3:00pm with the General Surgery Office. ? Activity Instructions ?? -No heavy lifting >10 lbs -Increase activity as tolerated -Encourage coughing and deep breathing, use of incentive spirometer -No tub baths until incision(s) has/have healed -No driving until off narcotics and cleared by Surgery Discharge Orders Scheduled Follow-Up Appointments Monday 3:00 PM EST ?? With: Santiago Malin Where: [facility] [address] [place] [address] Drive [address] [place] [address]- Monday 8:45 AM EST ?? With: Abby LANDRUM, Yulisa Where: [facility] [address] [place] [address]- Monday 2:00 PM EDT ?? With: Avery Costello MD Where: [address] [place] [address]- Monday 10:00 AM EDT ?? With: Where: [facility] [address] [place] [address]- You Need to Schedule the Following Appointments Follow Up with??Avery Costello When?? Where: [address] [place] [address], [address] [place] [address]- Business (1) Follow Up with??Sue Barillas When??In 0 days Discharge Medications SOTOMAYOR, LISA :1970 Visit Date:03/24/2022 Medications: Please continue your medications until treatment is completed or stopped by your provider. Medications not listed below should be discontinued. Discuss any questions related to medications with your provider. What How Much When Instructions Next Dose New Oxycodone (oxyCODONE 5 mg oral tablet) 5 Milligram Oral Every 6 hours as needed for Pain , Moderate Do not drive on narcotic medications. ?? Pickup at [facility] Unchanged Acetaminophen (acetaminophen 500 mg oral tablet) 2 tab(s) Oral Every 6 hours as needed for as needed for fever Unchanged Albuterol (Albuterol (Eqv-ProAir HFA) 90 mcg/ inh inhalation aerosol) 2 puff(s) Inhalation Every 4 hours as needed for NEEDED FOR WHEEZING Unchanged Budesonide-Formoterol (Symbicort 160mcg/ 4.5mcg Inhaler) 2 puff(s) Inhalation Twice a day rinse mouth and throat after use ?? Unchanged Calcium And Vitamin D Combination (calcium (as citrate)-vitamin D 315 mg-250 intl units oral tablet) 2 tab(s) Oral Twice a day Unchanged Cetirizine (ZyrTEC 10 mg oral tablet) 1 tab(s) Oral Daily Replaces Claritin. ??Can give 90 day supply ?? Unchanged Clonazepam (clonazePAM 1 mg oral tablet) 1 tab(s) Oral Every 6 hours as needed for Anxiety Unchanged Cyanocobalamin (Vitamin B12 500 mcg/ mL injectable solution) monthly ?? Unchanged dexlansoprazole (Dexilant 60 mg oral delayed release capsule) 1 capsule Oral Twice a day 30 min before ??meal ?? Unchanged Durable Medical Equipment (Freestyle Lite Lancets) See instructions Use lancets to check blood glucose up to 3x a day. E11.9 ?? Unchanged Durable Medical Equipment (Freestyle Lite Monitor) See instructions Use glucose meter to check blood glucose up to 3x a day. E11.9 ?? Unchanged Durable Medical Equipment (Freestyle Lite Test Strips) See instructions Use test strips to check blood glucose up to 3x a day, E11.9 ?? Unchanged EPINEPHrine (EPINEPHrine 1 mg/ mL injectable solution) 0.3 Milliliter Intramuscular Once Unchanged Famotidine (famotidine 40 mg oral tablet) 1 tab(s) Oral Twice a day Duration: 30 Days Unchanged Gabapentin (gabapentin 300 mg oral capsule) 1 capsule Oral Daily at Bedtime Unchanged galcanezumab (Emgality Prefilled Pen 120 mg/ mL subcutaneous solution) 120 Milligram Subcutaneous Injection Once Maintenance Dose ?? Unchanged Miscellaneous Rx (BD Tuberculin Syringe 1 mL 25 gauge x 5 ) See instructions USE TO INJECT SUBCUTANEOUSLY once a week x 8 weeks then once a month there after per PCP ?? Unchanged Montelukast (montelukast 10 mg oral tablet) 1 tab(s) Oral Daily in PM Unchanged rimegepant (Nurtec ODT 75 mg oral tablet, disintegrating) See instructions TAKE ONE TABLET DAILY NEEDED FOR migraines, DO NOT EXCEED ONE TABLET IN 24 HOURS ?? Unchanged vortioxetine (Trintellix 10 mg oral tablet) 1.5 tab(s) Oral Daily Unchanged Zoledronic Acid (Reclast) 5 Milligram Intravenous Infusion Once Pharmacy Information [facility]: [address] [place], [place] [id number] [phone] Allergies (NKA means No Known Allergies) Dust??(Allergy to pollen) Incruse Ellipta??(lightheaded and migraine) Pollen??(seasonal allergies respiratory symptoms) Valuables and Belongings I fully understand and agree that [facility] accepts no responsibility for all my personal property including clothing, toilet articles, radios, jewelry, dentures, hearing aids, rings, money, or any other property that is in my possession or is brought to me after admission. I understand certain valuables may be placed in a hospital safe for a short period of time. I understand that the hospital is not liable for loss or damage due to accident, fire, or other natural occurrence while said property is in the safe. I accept full responsibility for any personal property that I keep with me, and will not hold the hospital responsible in case of loss or disappearance. I acknowledge that i have been encouraged to send valuables and belongings home. ?? Date for Pt to Sign Valuables/Belongings: 03/24/22 12:21:00 ?? Valuables & Belongings ?? Clothes Electronic devices Jewelry Monetary Items Personal devices Miscellaneous Medications (Valuables) Valuables at Bedside Jacket, Pants, Shirt, Shoes, Undergarments Cell phone ? Glasses ? Valuables Sent Home ? Valuables Sent to Security ? Common Emergency Awareness Tips IS IT A STROKE? Act FAST and Check for these signs: FACE Does the face look uneven? ARM Does one arm drift down? SPEECH Does their speech sound strange? TIME Call at any sign of stroke ?? Heart Attack Signs Chest discomfort: Most heart attacks involve discomfort in the center of the chest and lasts more than a few minutes, or goes away and comes back. It can feel like uncomfortable pressure, squeezing, fullness or pain. Discomfort in upper body: Symptoms can include pain or discomfort in one or both arms, back, neck, jaw or stomach. Shortness of breath: With or without discomfort. Other signs: Breaking out in a cold sweat, nausea, or lightheaded. Remember, MINUTES DO MATTER. If you experience any of these heart attack warning signs, call to get immediate medical attention! ?? Smoking can increase your chances of developing chronic health problems and can cause harmful effects to other family members in your house. If you smoke, you are strongly encouraged to quit. Please call [facility] [employer] at [phone] or [phone] ([phone]) or log in to [email or web address] for referrals to smoking cessation programs. ?? The National Suicide Prevention Hotline is available 26/09 if you or someone you know needs to find a reason to keep living. By calling 1-491-673-[employer] (2234) you'll be connected to a skilled, trained counselor at a crisis center in your area. INPATIENT DISCHARGE INSTRUCTIONS SIGNATURE PAGE SOTOMAYOR, LISA Location:[facility] Registration Date and Time:03/24/2022 11:47 EST Primary Care Physician: Sue Barillas NP, I IONA SOTOMAYOR, have received the above patient education materials/instructions and have verbalized understanding. If ambulance or transport services are being used I further acknowledge being given a choice of service. ?? If you need to contact me, please call me at this number: CIS . Patient/Oil Refinery Process Technician Name: Iona Sotomayor Patient/Oil Refinery Process Technician Signature: Relationship to Patient: Patient Witness Name/Signature: Date: 03/24/2022 * Fabiana Godinez RN: PERFORM, SIGN, VERIFY Event Display: Patient Education Handout Authored Date: [id number] * Fabiana Godinez RN: PERFORM Event Display: Patient Education Leaflets Authored Date: [id number] Surgery Medical Daystay Surgical Overnight Discharge Instructions ?? 295 Medical Daystay/Surgical Overnight Discharge Instructions ? Since your coordination and judgment may be altered by medication and/or anesthesia, a responsible adult must drive you home from the hospital. ? If you have received medication for pain or sedation while under our care, you should not drive, operate machinery, drink alcohol, or sign any legal documents for 24 hours.?? You should have someone with you at home tonight. ? Remain at home the day of discharge.?? You may be up and about unless otherwise instructed by your physician. ? You may resume your daily prescription medication schedule.?? Any depressant medication should be avoided for 24 hours unless otherwise instructed by your surgeon or anesthesiologist. ? Call your physician for a follow-up appointment.? If you experience unusual or severe pain not relied by your pain medication, excessive bleedingor drainage, persistent nausea and vomiting, excessive swelling or redness, foul odor from incisionsite or fever over 100.6F, you need to call your physician. ? A follow-up phone call by a nurse will be made the day after your procedure.?? If you have stayed with us over night, you will not be receiving a follow-up phone call. ? Nausea and vomiting are a common side effect of prescription pain medication.?? We recommend that pills are not taken on an empty stomach.?? While taking any prescription pain medication you should not drive or drink alcohol. ? Patient Care team information Care Team Personnel Name: Caitlyn Mcgee RN Position: [facility] RN Member Role: Primary Care Nurse Name: Sue Barillas NP Position: [facility] PCO Associate Professional Member Role: PCP Address: Address: [address] [place] [address]- Name: Andria Guadalupe RN Position: [facility] SN RN Member Role: Primary Care Nurse Name: Liz Martin RN Position: S RN Member Role: Primary Care Nurse Name: Ambreen Mcmahon RN Position: [facility] RN Member Role: Primary Care Nurse Name: Irais Grijalva RN Position: [facility] RN Member Role: Primary Care Nurse Name: Autumn Martinez RN Position: [facility] SN RN Member Role: Primary Care Nurse Name: Concha Mckinley RN Position: [facility] RN Member Role: Primary Care Nurse Name: Liz English RN Position: [facility] RN Member Role: Primary Care Nurse Name: Dora Williamson RN Position: S RN Member Role: Primary Care Nurse Care Team Related Persons Name: KHUSHI CUNNINGHAM Address: [address] [place] [address] Name: BHUPINDER VENEGAS Address: home [address] [place] [address] Name: FELIPE SOTOMAYOR Address: home [address] [place] [address] Name: ARNAV SOTOMAYOR Address: home [address] [place] [address] Name: IRINA SOTOMAYOR Address: home [address] [place] [address] Name: RUSLAN SOTOMAYOR Address: home [address] [place] [address] Name: KAISER PLUNKETT Address: home [address] [place] [address]
--- OUTSIDE RECORDS SUMMARY | 2022-08-17 08:46 | XMS_ITS | Continuity of Care Document ---
Author Name Unknown Organization [facility] Address [address] [place] [address]- Care Team Providers Care Glass Rolling Machine Operator Name Role Phone Taras Jasso MD Primary Care Physician Encounter [facility] Date(s): 10/24/19 - 10/31/19 [facility] [address] [place] [address]- [facility] Encounter Diagnosis Cervical radiculopathy(Discharge Diagnosis) - 10/24/19 Chronic diarrhea(Discharge Diagnosis) - 10/24/19 Dumping syndrome(Discharge Diagnosis) - 10/24/19 Asthma(Discharge Diagnosis) - 10/24/19 Attending Physician: Taras Jasso MD Allergies, Adverse [...] toxoids (Td) 08/03/05 Given 1Result Comment: [12/07/2017] [id number] 2Result Comment: [12/21/2016] [facility]: [id number] 3Result Comment: [06/10/2015] #3 4Admin Note: per [...] 07/07/2012:36:00 EDT, Aerosol, Route to Pharmacy Electronically, [id number]_[id number], [facility], 160, cm, 07/08/19 [...] 05/17/19 12:02:00 EDT, Route to Pharmacy Electronically, [facility], 160, cm, 05/16/19 10:27:00 EDT, Height, 62.9, kg, 05/12/19 9:1... Start Date: 05/17/19 Status: Ordered famotidine 40 mg oral tablet 1/2 tablet, By Mouth, Daily at bedtime, famotidine 20mg backordered. please take 1/2 tab daily, # 30 each, 1 Refills, Maintenance, 07/30/19 10:21:00 EDT, [facility], 160, cm, 07/08/19 [...] 11:32:00 EST, Aerosol, Route to Pharmacy Electronically, NCPDP_[id number], [facility], 160, [...] 07/08/19 13:36:00 EDT, Route to Pharmacy Electronically, NCPDP_[id number], [facility], 160, cm, 07/08/19 13:03:00 ED... Start Date: 07/08/19 Status: Ordered Topamax 50 mg oral tablet 1 tablet = 50 mg, By Mouth, Daily at bedtime, after weaning off zonegran, take 50mg at HS for 2 weeks then increase to 100mg at HS, # 30 tablet, 6 Refills, Maintenance, 02/11/20 10:51:00 EST, Tablet,[facility], weaning zonegran o... Start Date: 02/11/20 Stop Date: 09/08/20 Status: Ordered Topamax 50 mg oral tablet 1 tablet = 50 mg, By Mouth, Daily at bedtime, for 30 days, after weaning off zonegran, take 50mg atHS for 2 weeks then increase to 100mg at HS, # 30 tablet, 6 Refills, Hard Stop 02/11/20 10:51:00 EST, 07/16/19 10:51:00 EDT, Tablet, [facility]... Start Date: 07/16/19 Stop Date: [...] perst 3folowed by mental health;recent hospitalization 4gyn [address]39 6testing negative insulinoma 7likley dumping sydrome 8abnormal GTT ;sugar 36 two hours into test 9sees gi 10normal CT brain 11new 125.3 cm,right per ct scan recent;seeing gynecology soon;they will review 13vit d deficiency;correct [id number] 15per endocrinology monitor 16correction refer GTT; 2 hour glucose 36 17refer GGT 18seeing ortho;pre op 19asma,ama neg/cerulopalsmain wnl,AAT wnl 20Negative hep A antibody positive hep B surface antibody negative antigen negative hep C, normal ferritin 21ukltrasound Diagnosis Diagnosis Type Effective Dates Health Status Clinical Service Informant Cervical radiculopathy Discharge Diagnosis 10/24/19 Chronic diarrhea Discharge Diagnosis 10/24/19 Dumping syndrome Discharge Diagnosis 10/24/19 Asthma Discharge Diagnosis 10/24/19 Procedures Procedure Date Related Diagnosis Body Site Status MRI of cervical spine milod djd multilevel 1 10/22/19 Completed 11. Mild multilevel degenerative changes are seen as described with mild canal stenosis at C3-4 and C6-7. There is no cord compression at any level. 2. Neural foraminal stenosis is most pronounced at C3-4 and the right. Please see above. Vital Signs Most recent to oldest [Reference Range]: 1 Height 160.02 cm (10/24/19 7:46 AM) Weight 68.8 kg (10/24/19 7:46 AM) Oxygen Saturation [94-100 %] 97 % (10/24/19 7:46 AM) Pulse Rate [55-90 bpm] 70 bpm (10/24/19 7:46 AM) Body Mass Index [18.5-24.99] 26.87 *H* (10/24/19 7:46 AM) Blood Pressure [90-138/55-84 mm Hg] 100/ 62mm Hg (10/24/19 7:46 AM) Temperature [96.8-100.4 DegF] 97.9 DegF (10/24/19 7:46 AM) Blood pressure sites Arm, left (10/24/19 7:46 AM) Temperature Route Oral (10/24/19 7:46 AM) Social History Social History Type Response Smoking Status Never smoker entered on: 02/20/13 Sex
--- OUTSIDE RECORDS SUMMARY | 2022-08-17 08:46 | XMS_ITS | Continuity of Care Document ---
Author Name Unknown Organization [facility] Address [address] [place] [address] [address] [place] [address]- Care Team Providers Care Welder Tool [employer] Name Role Phone Eran SWEATBAND SHAPER, Sue Dahl Primary Care Physician [phone] Encounter [facility] Date(s): 02/25/22 - 03/27/22 [facility] [address] [place] [address]- Allergies, Adverse Reactions, Alerts Substance Reaction Severity Status Dust Allergy to pollen Active Pollen seasonal allergies respiratory symptoms Active Incruse Ellipta 1 lightheaded and migraine Active 1dizzy Immunizations Given and Recorded Vaccine Date Status Refusal Reason [id number] 12y+ bivalent booster vax 1 12/24/21 Given [...] vaccine, inactivated 02/08/11 Give n SARS-CoV-2 mRNA (ksebuzm-jcfo-jresu) vax 05/01/21 Recorded zoster vaccine, inactivated 11/03/20 [...] tetanus-diphtheria toxoids (Td) 08/03/05 Given 1Result Comment: [address]-9 2Result Comment: 74351-538-87 3Result Comment: [12/07/2017] [address]-09 4Result Comment: [12/21/2016] [facility]: 40647-350-91 5Result Comment: [06/10/2015] #3 6Admin Note: per [...] Maintenance, 11/22/21 9:49:00 EDT, CR Capsule, [facility], Partial fill upon patient request if the prescription is for a schedule II opioid... Start Date: 11/22/21 Status: Ordered Emgality Prefilled Pen 120 mg/mL subcutaneous solution = 120 mg, Subcutaneous Injection, Once, Maintenance Dose, # 3 kit, 2 Refills, Soft Stop, 03/17/22 8:08:00 EST, [facility], requesting 3 [...] 03/24/22 14:12:00 EST, Route to Pharmacy Electronically, [facility], Partial fill upon p... [...] 11/23/21 19:57:00 EDT, Route to Pharmacy Electronically, NCPDP_[id number], [facility], 158, cm, 11/03/21 8:0... [...] Refills, Maintenance, 12/10/21 9:44:00 EDT, Tablet, [facility], [...] gynecology soon;they will review 11vit d deficiency;correct [id number] 13per endocrinology monitor 14correction refer GTT; 2 [...] Member Role: Primary Care Nurse Name: Eran SWEATBAND SHAPER, Sue Dahl Position: [facility] PCO Associate Professional Member Role: PCP Address: Address: [address] [place] [id number] Name: Andria Guadalupe RN Position: [facility] [...] Name: KHUSHI CUNNINGHAM Address: home [address] [place] [address] Name: BHUPINDER VENEGAS Address: [address] [place] [address] Name: FELIPE FLORES Address: [address] [place] [address] Name: ARNAV FLORES Address: [address] [place] [address] Name: IRINA FLORES Address: home [address], [place] Name: RUSLAN FLORES Address: home [address] [place] [address] Name: KAISER PLUNKETT Address: home [address] [place] [address]
--- OUTSIDE RECORDS SUMMARY | 2022-08-17 08:46 | XMS_ITS | Continuity of Care Document ---
Author Name Unknown Organization [facility] Address Unknown Care Team Providers Care Sr. Unix System Administrator Name Role Phone Eran Sue JOHNSON Primary Care Physician [phone] [place] [facility] [place]17[place] 10/17/21 [facility] Allergies, Adverse Reactions, Alerts Substance Reaction Severity Status Dust Allergy to pollen Active Pollen seasonal allergies respiratory symptoms Active Incruse Ellipta 1 lightheaded and migraine Active 1dizzy Immunizations Given and Recorded Vaccine Date Status Refusal Reason SARS-CoV-2 mRNA (cmavtfa-xzhc-cjnvt) vax 05/01/21 Recorded influenza virus vaccine, inactivated [...] toxoids (Td) 08/03/05 Given 1Result Comment: [12/07/2017] [address]-67 2Result Comment: [12/21/2016] [facility]: [id number] 3Result Comment: [06/10/2015] #3 4Admin Note: per [...] constipation, 08/23/21 8:22:00 EDT, Route to Pharmacy Electronically,[facility], Partial fill upon patient... [...] 09/17/21 14:13:00 EDT, Route to Pharmacy Electronically, [facility], 158, cm, 09/16/21 9:43:00 [...] 1resolved after weight loss 2chronic perst 3gyn 188[address] 5testing negative insulinoma 6likley dumping sydrome 7abnormal GTT ;sugar 36 two hours into test 8sees gi 9normal CT brain 10new 115.3 cm,right per ct scan recent;seeing gynecology soon;they will review 12vit d deficiency;correct 196470 14per endocrinology monitor 15correction refer GTT; 2 hour glucose 36 16refer GGT 17seeing ortho;pre op 18asma,ama neg/cerulopalsmain wnl,AAT wnl 19Negative hep A antibody positive hep B surface antibody negative antigen negative hep C, normal ferritin 20ukltrasound Social History Social History Type Response Smoking Status Never smoker entered on: 02/20/13 Sex
--- OUTSIDE RECORDS SUMMARY | 2022-08-17 08:46 | XMS_ITS | Continuity of Care Document ---
Author Name Unknown Organization [facility] Address [address] [place] [address], [address] [place] [address]- Care Team Providers Care Astrophysics Professor Name Role Phone Louisa LANDRUM, Taras Fuentes Primary Care Physician [phone] Encounter [facility] Date(s): 10/28/19 - 11/27/19 [facility] [address] [place] [address] Drive, [address] [place] [address]- [facility] Allergies, Adverse Reactions, Alerts Substance Reaction [...] toxoids (Td) 08/03/05 Given 1Result Comment: [12/07/2017] [address]-13 2Result Comment: [12/21/2016] [facility]: 85851-502-65 3Result Comment: [06/10/2015] #3 4Admin Note: per [...] 07/07/2012:36:00 EDT, Aerosol, Route to Pharmacy Electronically, NCPDP_[id number], [facility], 160, cm, 07/08/19 13:03:00 EDT, Height, [...] Refills, Maintenance, 07/30/19 10:21:00EDT, [facility], 160, cm, 07/08/19 13:03:00 EDT, Height, 56.5, kg, 05/29/19 13:36:00 EDT, Dry Weight Start Date: 07/30/19 Status: Ordered eletriptan 40 mg oral tablet 1 tablet = 40 mg, By Mouth, Daily, PRN for migraine headache, # 9 tablet, 5 Refills, Soft Stop, 07/16/19 9:23:00 EDT, Tablet, [facility], she has tried sumatriptan and rizatriptan. [...] 10:29:00 EDT, REC Powder, [facility], 240 mL By Mouth Every 10 minutes, 160.02, cm, 11/15/19 10:05:00 EDT, Height, 67, kg, 09/11/19 11:20:00 EDT, Dry... Start Date: 11/15/19 Status: Ordered ondansetron 4 mg oral tablet, disintegrating 1 tablet = 4 mg, By Mouth, Every 8 hours, PRN as needed for nausea/vomiting, # 9 tablet, 0 Refills,Maintenance, 10/06/19 21:07:00 EDT, DIS Tablet, [facility] Start Date: 10/06/19 Stop Date: 10/09/19 Status: Ordered ProAir HFA 90 mcg/inh inhalation aerosol with adapter 2, puffs, Inhalation, Every 4 hours, PRN, # 8.5 Gm, Refills 2, Tot. Refills 2, Maintenance, 04/29/19 11:32:00 EST, Aerosol, Route to Pharmacy Electronically, NCPDP_[id number], [facility], [...] 07/08/19 13:36:00 EDT, Route to Pharmacy Electronically, NCPDP_[id number], [facility], 160, cm, 07/08/19 13:03:00 ED... Start Date: 07/08/19 Status: Ordered Topamax 50 mg oral tablet 2 tablet = 100 mg, By Mouth, Daily at bedtime, # 60 tablet, 6 Refills, Maintenance, 11/04/19 11:08:00 EDT, Tablet, [facility], weaning zonegran off by 25mg every [...] 11/25/19 21:26:00 EDT, Tablet, [facility], 160.02, cm, 11/15/19 10:05:00 EDT, Height,... Start Date: 11/25/19 Status: Ordered Zofran 4 mg oral tablet 1 tablet = 4 mg, By Mouth, Every 8 hours, PRN Nausea & Vomiting, # 30 tablet, 0 Refills, Maintenance, 09/30/19 11:23:00 EDT, [facility], 160.02, cm, 09/24/19 15:31:00 EDT, Height, [...] perst 3folowed by mental health;recent hospitalization 4gyn 64852 6testing negative insulinoma 7likley dumping sydrome 8abnormal GTT ;sugar 36 two hours into test 9sees gi 10normal CT brain 11new 125.3 cm,right per ct scan recent;seeing gynecology soon;they will review 13vit d deficiency;correct 757772 15per endocrinology monitor 16correction refer GTT; 2 hour glucose 36 17refer GGT 18seeing ortho;pre op 19asma,ama neg/cerulopalsmain wnl,AAT wnl 20Negative hep A antibody positive hep B surface antibody negative antigen negative hep C, normal ferritin 21ukltrasound Social History Social History Type Response Smoking Status Never smoker entered on: 02/20/13 Sex
--- OUTSIDE RECORDS SUMMARY | 2022-08-17 08:46 | XMS_ITS | Continuity of Care Document ---
Author Name Unknown Organization [facility] Address [address] [place] [address]- Care Team Providers Care Director Of Physical Education Name Role Phone Louisa LANDRUM, Taras Fuentes Primary Care Physician [facility] Date(s): 05/08/20 - 06/07/20 [facility] [address] [place] [address]- Attending Physician: Admtr, Ar8 Allergies, Adverse Reactions, [...] toxoids (Td) 08/03/05 Given 1Result Comment: [12/07/2017] [address]-77 2Result Comment: [12/21/2016] [facility]: [id number] 3Result Comment: [06/10/2015] #3 4Admin Note: per [...] 60 capsule, 5 Refills, Maintenance, 05/07/20 15:54:00EST, [facility], 160.02, cm, 05/01/20 9:18:00 [...] 11:32:00 EST, Aerosol, Route to Pharmacy Electronically, NCPDP_[id number], [facility], 160, cm, 04/29/19 10:47:00 EST, Height... Start Date: 04/29/19 Status: Ordered Topamax 50 mg oral tablet See Instructions, take 1 tab in am and 2 tab at bedtime. If AM dose causes bad sedation, add to HS dose., # 90 tablet, 6 Refills, Maintenance, 03/12/20 11:09:00 EST, Tablet, [facility], weaning zonegran off by 25mg every 2 days t... Start Date: 03/12/20 Status: Ordered ubrogepant 100 mg oral tablet 1 tablet = 100 mg, By Mouth, Daily, # 10 tablet, 6 Refills, Soft Stop, 03/12/20 11:04:00 EST, [facility], Partial fill [...] perst 3folowed by mental health;recent hospitalization 4gyn [address]12 6testing negative insulinoma 7likley dumping sydrome 8abnormal GTT ;sugar 36 two hours into test 9sees gi 10normal CT brain 11new 125.3 cm,right per ct scan recent;seeing gynecology soon;they will review 13vit d deficiency;correct 233601 15per endocrinology monitor 16correction refer GTT; 2 hour glucose 36 17refer GGT 18seeing ortho;pre op 19asma,ama neg/cerulopalsmain wnl,AAT wnl 20Negative hep A antibody positive hep B surface antibody negative antigen negative hep C, normal ferritin 21ukltrasound Procedures Procedure Date Related Diagnosis Body Site Status CT of chest, abdomen and pel vis- [...]
--- OUTSIDE RECORDS SUMMARY | 2022-08-17 08:46 | XMS_ITS | Continuity of Care Document ---
Author Name Unknown Organization [facility] Address [address] [place] [address]- Care Team Providers Care Cattery Operator Name Role Phone Eran Sue JOHNSON Primary Care Physician [place] [facility] [place] 05/19[place]22 - 06/18/22 [facility] [address] [place] [address] [place] Allergies, Adverse Reactions, Alerts Substance Reaction Severity Status Dust Allergy to pollen Active Pollen seasonal allergies respiratory symptoms Active Incruse Ellipta 1 lightheaded and migraine Active 1dizzy Immunizations Given and Recorded Vaccine Date Status Refusal Reason [id number] 12y+ bivalent booster vax 1 12/24/21 Given [...] vaccine, inactivated 02/08/11 Give n SARS-CoV-2 mRNA (wpdkued-tbhy-tlpui) vax 05/01/21 Recorded zoster vaccine, inactivated 11/03/20 [...] tetanus-diphtheria toxoids (Td) 08/03/05 Given 1Result Comment: [id number] 2Result Comment: [id number] 3Result Comment: [12/07/2017] [id number] 4Result Comment: [12/21/2016] [facility]: [id number] 5Result Comment: [06/10/2015] #3 6Admin Note: per pt 7Admin Note: given in clinic Medications acetaminophen 500 mg oral tablet 2 tablet = 1,000 mg, By Mouth, Every 6 hours, PRN as needed for fever, # 200 tablet, 0 Refills, Maintenance, 12/03/21 10:17:00 EDT, Tablet, [facility], Partial fill upon patient request if the prescription is for a schedule II opi... Start Date: 12/03/21 Status: Ordered Albuterol (Eqv-ProAir HFA) 90 mcg/inh inhalation aerosol 2 puffs, Inhalation, Every 4 hours, PRN NEEDED FOR WHEEZING, # 8.5 Gm, 5 Refills, Maintenance, 03/09/22 11:21:00 EST, [facility], 17, INHALE TWO PUFFS [...] 6 Refills, Maintenance, 11/03/21 8:23:00 EDT, Tablet, [facility], 2 tablet By Mouth 2 times a day, 158, cm, 11/03/21 8:01:00 EDT,Height, 71.5, kg, 09/01/21 16:21:00 EDT, Dry Weight Start Date: 11/03/21 Status: Ordered Carafate 1 gm/10 ml oral suspension 10 mL = 1 Gm, By Mouth, 3 times a day before meals and bedtime, # 1,200 mL, 5 Refills, Maintenance,04/29/22 9:16:00 EST, [id number], Partial fill upon patient request if the prescription is for a schedule II opioid drug., 158, cm, 02... Start Date: 04/29/22 Status: Ordered cetirizine 10 mg oral tablet 1 tablet, By Mouth, Daily, # 30 tablet, 5 Refills, Maintenance, 06/03/22 11:40:00 EDT, [facility], 158, cm, 05/25/22 13:59:00 [...] Refills, Maintenance, 05/30/22 7:57:00 EDT, CR Capsule, [facility], Partial fill upon patient request if the prescription is for a schedule II opioid... Start Date: 05/30/22 Status: Ordered Emgality Prefilled Pen 120 mg/mL subcutaneous solution = 120 mg, Subcutaneous Injection, Once, Maintenance Dose, # 3 kit, 2 Refills, Soft Stop, 03/17/22 8:08:00 EST, [facility], requesting 3 month supply [...] 6 Refills, Maintenance, 01/31/22 14:05:00 EST, Suspension, [facility], Partial fill upon patient request if the prescription is for a schedule II opioid drug., 163, cm, 01/18... Start Date: 01/31/22 Stop Date: 08/29/22 Status: Ordered Fiber Choice 1.5 g oral tablet, chewable 1 tablet = 1.5 Gm, Chew, 3 times a day, # 90 tablet, 0 Refills, Maintenance, 04/09/22 15:16:00 EST,Chew Tablet, [id number], Partial fill upon patient request if the [...] Refills, Maintenance, 04/09/22 15:16:00 EST, REC Powder, [facility][id number], Partial fill upon patient request if the prescription is for a schedule II opioid drug., 17 Gm... Start Date: 04/09/22 Status: Ordered montelukast 10 mg oral tablet 1, tablet, By Mouth, Daily in PM, # 90 tablet, Refills 1, Tot. Refills 1, Maintenance, 11/14/21 11:28:00 EDT, Route to Pharmacy Electronically, [facility], 158, cm, 11/03/21 8:01:00 EDT, Height, 71.5, kg, 09/01/21 16:21:00 EDT, . Start Date: 11/14/21 Status: Ordered Nurtec ODT 75 mg oral tablet, disintegrating See Instructions, TAKE ONE TABLET DAILY NEEDED FOR migraines, DO NOT EXCEED ONE TABLET IN 24 HOURS, # 8 tablet, 6 Refills, Maintenance, 12/28/21 15:14:00 EDT, [facility], 163,cm, 12/24/21 8:20:00 EDT, [...] each, 0 Refills, Maintenance, 04/06/22 15:29:00 EST, [facility] #[id number], Partial fi... Start Date: 04/06/22 Status: Ordered Reclast = 5 mg, IV Infusion, Once, 0 Refills, Maintenance, 11/06/20 10:24:00 EDT, administered at [facility] 10/2020 Start Date: 11/06/20 Status: Ordered Stool Softener + Stimulant Laxative 50 mg-8.6 mg oral capsule 1 capsule, By Mouth, Daily in PM, # 60 capsule, 0 Refills, Maintenance, 04/09/22 15:17:00 EST, Capsule, [facility] #[id number], Partial fill upon patient request if the prescription is for a schedule II opioid drug., 1 capsule By Mouth Daily in P... Start Date: 04/09/22 Status: Ordered Symbicort 160mcg/4.5mcg Inhaler 2, puffs, Inhalation, 2 times a day, rinse mouth and throat after use, # 10.2 Gm, Refills 2, Tot. Refills 2, Maintenance, 06/10/22 20:48:00 EDT, Route to Pharmacy Electronically, NCPDP_[id number], [facility], 158, cm, 06/07/22 10:... [...] Active Vitamin D deficiency Confirmed Active 1gyn 84867 3testing negative insulinoma 4likley dumping sydrome 5abnormal GTT ;sugar 36 two hours into test 6normal CT brain 7new 8resolved after weight loss 9chronic perst 105.3 cm,right per ct scan recent;seeing gynecology soon;they will review 11vit d deficiency;correct 878213 13per endocrinology monitor 14correction refer GTT; 2 [...] Care Nurse Name: Sue Barillas NP Position: [facility] PCO Associate Professional Member Role: PCP Address: Address: [address] [place], [place] [address] Name: Andria Guadalupe RN Position: [facility] SN RN Member Role: Primary Care Nurse Name: Liz Martin RN Position: [facility] RN Member Role: Primary Care Nurse Name: Ambreen Mcmahon RN Position: [facility] RN Member Role: Primary Care Nurse Name: Irais Grijalva RN Position: [facility] RN Member Role: Primary Care Nurse Name: Autumn Martinez RN Position: [facility] SN RN Member Role: Primary Care Nurse Name: Liz English RN Position: [facility] RN Member Role: Primary Care Nurse Name: Dora Williamson RN Position: [facility] RN Member Role: Primary Care Nurse Care Team Related Persons Name: KHUSHI CUNNINGHAM Address: home [address] [place] [address] Name: BHUPINDER VENEGAS Address: home [address] [place] [address] Name: FELIPE FLORES Address: home [address] [place] [address] Name: ARNAV FLORES Address: home [address] [place] [address] Name: IRINA FLORES Address: home [address] [place] [address] Name: RUSLAN FLORES Address: home [address] [place] [address] Name: KAISER PLUNKETT Address: home [address] [place] [address]
--- OUTSIDE RECORDS SUMMARY | 2022-08-17 08:46 | XMS_ITS | Continuity of Care Document ---
Author Name Unknown Organization [facility] Address [address] [place] [address]- Care Team Providers Care Communications Director Name Role Phone Louisa LANDRUM, Taras Fuentes Primary Care Physician Encounter [facility] [place] Date(s): 05/04/20 - 06/03/20 [facility] [address] [place] [id number] Allergies, Adverse Reactions, Alerts Substance [...] toxoids (Td) 08/03/05 Given 1Result Comment: [12/07/2017] [address]-96 2Result Comment: [12/21/2016] [facility]: [id number] 3Result Comment: [06/10/2015] #3 4Admin Note: per [...] 11:32:00 EST, Aerosol, Route to Pharmacy Electronically, NCPDP_[id number], [facility] - [...] perst 3folowed by mental health;recent hospitalization 4gyn [address]6827 6testing negative insulinoma 7likley dumping sydrome 8abnormal GTT ;sugar 36 two hours into test 9sees gi 10normal CT brain 11new 125.3 cm,right per ct scan recent;seeing gynecology soon;they will review 13vit d deficiency;correct 296247 15per endocrinology monitor 16correction refer GTT; 2 hour glucose 36 17refer GGT 18seeing ortho;pre op 19asma,ama neg/cerulopalsmain wnl,AAT wnl 20Negative hep A antibody positive hep B surface antibody negative antigen negative hep C, normal ferritin 21ukltrasound Social History Social History Type Response Smoking Status Never smoker entered on: 02/20/13 Sex
--- OUTSIDE RECORDS SUMMARY | 2022-08-17 08:46 | XMS_ITS | Continuity of Care Document ---
Author Name Unknown Organization [facility] Address [address] [place] [address]- Care Team Providers Care Sweatband Shaper Name Role Phone Louisa LANDRUM, Taras Fuentes Primary Care Physician [facility]counter [facility] Date(s): 06/19/20 - 07/19/20 [facility] [address] [place] [address] Allergies, Adverse Reactions, Alerts Substance [...] toxoids (Td) 08/03/05 Given 1Result Comment: [12/07/2017] [address]-13 2Result Comment: [12/21/2016] [facility]: 89952-706-55 3Result Comment: [06/10/2015] #3 4Admin Note: per pt 5Admin Note: given in clinic Medications acarbose 25 mg oral tablet 1 tablet = 25 mg, By Mouth, 3 times a day, Take 1 tablet 3 times daily with meals. Add to 50mg dosefor total of 75mg 3 times daily. E11.65, # 270 tablet, 3 Refills, Maintenance, 07/15/20 12:23:00 EDT, Tablet, [facility], Partial... Start Date: 07/15/20 Status: Ordered acarbose 50 mg oral tablet 1 tablet = 50 mg, By Mouth, 3 times a day, Take 3 times daily with meals. E11.65, # 90 tablet, 5 Refills, Maintenance, 07/13/20 16:29:00 EDT, Tablet, [facility], [...] Refills, Maintenance, 05/07/20 15:54:00EST, [facility], 160.02, cm, 05/01/20 9:18:00 EST, Height, [...] 11:32:00 EST, Aerosol, Route to Pharmacy Electronically, NCPDP_[id number], [facility], 160, cm, 04/29/19 10:47:00 EST, Height... Start Date: 04/29/19 Status: Ordered rifAXIMin 550 mg oral tablet 1 tablet = 550 mg, By Mouth, 3 times a day, # 42 tablet, 0 Refills, Maintenance, 07/14/20 13:37:00 EDT, Tablet, [facility], [...] 03/12/20 11:09:00 EST, Tablet, [facility], weaning zonegran off by 25mg [...] Stop, 03/12/20 11:04:00 EST, [facility], Partial [...] 06/13/20 14:10:00 EDT, Capsule, [facility],... Start Date: 06/13/20 Status: Ordered Problem [...] 1resolved after weight loss 2chronic perst 3gyn 98154 5testing negative insulinoma 6likley dumping sydrome 7abnormal GTT ;sugar 36 two hours into test 8sees gi 9normal CT brain 10new 115.3 cm,right per ct scan recent;seeing gynecology soon;they will review 12vit d deficiency;correct 429261 14per endocrinology monitor 15correction refer GTT; 2 hour glucose 36 16refer GGT 17seeing ortho;pre op 18asma,ama neg/cerulopalsmain wnl,AAT wnl 19Negative hep A antibody positive hep B surface antibody negative antigen negative hep C, normal ferritin 20ukltrasound Social History Social History Type Response Smoking Status Never smoker entered on: 02/20/13 Sex
--- OUTSIDE RECORDS SUMMARY | 2022-08-17 08:46 | XMS_ITS | Continuity of Care Document ---
Author Name Unknown Organization [facility] Address [address] [facility], [address] d Floor, [address] [place] [address]- Care Team Providers Care Matching Machine Operator Name Role Phone Eran DROP WIRE ALIGNER, Sue Dahl Primary Care Physician [place] [facility] [place] 07/21/22 [facility] [address], [address], [address] [place] [address]- Attending Physician: Javier JOHNSON, Bradley Ann Allergies, Adverse Reactions, Alerts Substance Reaction Severity Status Dust Allergy to pollen Active Pollen seasonal allergies respiratory symptoms Active Incruse Ellipta 1 lightheaded and migraine Active 1dizzy Immunizations Given and Recorded Vaccine Date Status Refusal Reason [id number] 12y+ bivalent booster vax 1 12/24/21 Given [...] vaccine, inactivated 02/08/11 Give n SARS-CoV-2 mRNA (gqzckfo-rcrt-uyvno) vax 05/01/21 Recorded zoster vaccine, inactivated 11/03/20 [...] tetanus-diphtheria toxoids (Td) 08/03/05 Given 1Result Comment: [id number] 2Result Comment: 94869-666-20 3Result Comment: [12/07/2017] [address]-04 4Result Comment: [12/21/2016] [facility]: 99639-125-50 5Result Comment: [06/10/2015] #3 6Admin Note: per pt 7Admin Note: given in clinic Medications acetaminophen 500 mg oral tablet 2 tablet = 1,000 mg, By Mouth, Every 6 hours, PRN as needed for fever, # 200 tablet, 0 Refills, Maintenance, 12/03/21 10:17:00 EDT, Tablet, [facility], Partial fill upon patient request if the prescription is for a schedule II opi... Start Date: 12/03/21 Status: Ordered Albuterol (Eqv-ProAir HFA) 90 mcg/inh inhalation aerosol 2 puffs, Inhalation, Every 4 hours, PRN NEEDED FOR WHEEZING, # 8.5 Gm, 5 Refills, Maintenance, 03/09/22 11:21:00 EST, [facility], 17, INHALE TWO PUFFS [...] 6 Refills, Maintenance, 11/03/21 8:23:00 EDT, Tablet, [facility], 2 tablet By Mouth 2 times a day, 158, cm, 11/03/21 8:01:00 EDT,Height, 71.5, kg, 09/01/21 16:21:00 EDT, Dry Weight Start Date: 11/03/21 Status: Ordered Carafate 1 gm/10 ml oral suspension 10 mL = 1 Gm, By Mouth, 3 times a day before meals and bedtime, # 1,200 mL, 5 Refills, Maintenance,04/29/22 9:16:00 EST, [id number], Partial fill upon patient request if the prescription is for a schedule II opioid drug., 158, cm, 02... Start Date: 04/29/22 Status: Ordered cetirizine 10 mg oral tablet 1 tablet, By Mouth, Daily, # 30 tablet, 5 Refills, Maintenance, 06/03/22 11:40:00 EDT, [facility], 158, cm, 05/25/22 13:59:00 [...] Refills, Maintenance, 05/30/22 7:57:00 EDT, CR Capsule, [facility], Partial fill upon patient request if the prescription is for a schedule II opioid... Start Date: 05/30/22 Status: Ordered Emgality Prefilled Pen 120 mg/mL subcutaneous solution = 120 mg, Subcutaneous Injection, Once, Maintenance Dose, # 3 kit, 2 Refills, Soft Stop, 07/14/22 10:04:00 EDT, [facility], requesting 3 month supply for cheaper martinez. with 2 refills. had follow up just now, doing great, 158, cm... Start Date: 07/14/22 Status: Ordered EPINEPHrine 1 mg/mL injectable solution 0.3 mL = 0.3 mg, Intramuscular, Once, # 1 mL, 1 Refills, Soft Stop, 03/08/21 15:07:00 EST, Solution, [facility], Partial fill upon patient request if the prescription is for a schedule II opioid drug., 158, cm, 03/08/21 12:18:00 E... Start Date: 03/08/21 Status: Ordered famotidine 40 mg oral tablet 1 tablet = 40 mg, By Mouth, 2 times a day, # 60 tablet, 6 Refills, Maintenance, 01/31/22 14:05:00 EST, Suspension, [facility], Partial fill upon patient request if the prescription is for a schedule II opioid drug., 163, cm, 01/18... Start Date: 01/31/22 Stop Date: 08/29/22 Status: Ordered Fiber Choice 1.5 g oral tablet, chewable 1 tablet = 1.5 Gm, Chew, 3 times a day, # 90 tablet, 0 Refills, Maintenance, 04/09/22 15:16:00 EST,[facility] Table[id number], Partial fill upon patient request if the [...] Refills, Maintenance, 04/09/22 15:16:00 EST, REC Powder, [facility] #[id number], Partial fill upon patient request if the prescription is for a schedule II opioid drug., 17 Gm... Start Date: 04/09/22 Status: Ordered montelukast 10 mg oral tablet 1, tablet, By Mouth, Daily in PM, # 90 tablet, Refills 1, Tot. Refills 1, Maintenance, 11/14/21 11:28:00 EDT, Route to Pharmacy Electronically, [facility], 158, cm, 11/03/21 8:01:00 EDT, Height, 71.5, kg, 09/01/21 16:21:00 EDT, Start Date: 11/14/21 Status: Ordered Nurtec ODT 75 mg oral tablet, disintegrating See Instructions, TAKE ONE TABLET DAILY NEEDED FOR migraines, DO NOT EXCEED ONE TABLET IN 24 HOURS, # 8 tablet, 6 Refills, Maintenance, 12/28/21 15:14:00 EDT, [facility], 163,cm, 12/24/21 8:20:00 EDT, [...] 0 Refills, Maintenance, 04/09/22 15:17:00 EST, Capsule, [facility] #[id number], Partial fill upon patient request if the prescription is for a schedule II opioid drug., 1 capsule By Mouth Daily in P... Start Date: 04/09/22 Status: Ordered Symbicort 160mcg/4.5mcg Inhaler 2, puffs, Inhalation, 2 times a day, rinse mouth and throat after use, # 10.2 Gm, Refills 2, Tot. Refills 2, Maintenance, 06/10/22 20:48:00 EDT, Route to Pharmacy Electronically, NCPDP_[id number], [facility], 158, cm, 06/07/22 10:... [...] Active Vitamin D deficiency Confirmed Active 1gyn 11449 3testing negative insulinoma 4likley dumping sydrome 5abnormal GTT ;sugar 36 two hours into test 6normal CT brain 7new 8resolved after weight loss 9chronic perst 105.3 cm,right per ct scan recent;seeing gynecology soon;they will review 11vit d deficiency;correct [id number] 13per endocrinology monitor 14correction refer GTT; 2 hour glucose 36 15refer GGT 16seeing ortho;pre op 17asma,ama neg/cerulopalsmain wnl,AAT wnl 18Negative hep A antibody positive hep B surface antibody negative antigen negative hep C, normal ferritin 19ukltrasound Vital Signs Most recent to oldest [Reference Range]: 1 Height 158 cm (07/14/22 9:46 AM) Weight 61.0 kg (07/14/22 9:46 AM) Oxygen Saturation [94-100 %] 98 % (07/14/22 9:46 AM) Pulse Rate [55-90 bpm] 58 bpm (07/14/22 9:46 AM) Body Mass Index [18.5-24.99 kg/m2] 24.44 kg/m2 (07/14/22 9:46 AM) Blood Pressure [90-138/55-84 mm Hg] 119/ 81mm Hg (07/14/22 9:46 AM) Blood pressure sites Arm, left (07/14/22 9:46 AM) Weight Obtained Via Bed scale (07/14/22 9:46 AM) Social History Social History Type Response Smoking Status Never smoker entered on: 02/20/13 Sex Patient Care team information Care Team Personnel Name: Caitlyn Mcgee RN Position: S RN Member Role: Primary Care Nurse Name: Sue Barillas NP Position: [facility] PCO Associate Professional Member Role: PCP Address: Address: [address] [place] [id number] Name: Andria Guadalupe RN Position: [facility] SN RN Member Role: Primary Care Nurse Name: Liz Martin RN Position: S RN Member Role: Primary Care Nurse Name: Ambreen Mcmahon RN Position: S RN Member Role: Primary Care Nurse Name: Irais Grijalva RN Position: S RN Member Role: Primary Care Nurse Name: Autumn Martinez RN Position: [facility] SN RN Member Role: Primary Care Nurse Name: Liz English RN Position: S RN Member Role: Primary Care Nurse Name: Dora Williamson RN Position: S RN Member Role: Primary Care Nurse Care Team Related Persons Name: KHUSHI CUNNINGHAM Address: home [address] [place] [address] Name: BHUPINDER VENEGAS Address: home [address] [place] [address] Name: FELIPE FLORES Address: home [address] [place] [address] Name: ARNAV FLORES Address: [address] [place], [place] Name: IRINA FLORES Address: [address] [place], [place] Name: RUSLAN FLORES Address: home [address] [facility] [address] [place], [place] Name: KAISER PLUNKETT Address: home [address] [place] [address]
--- OUTSIDE RECORDS SUMMARY | 2022-08-17 08:46 | XMS_ITS | Continuity of Care Document ---
Author Name Unknown Organization [facility] Address [address] [place] [address]- Care Team Providers Care Senior Ruby Developer Name Role Phone Eran Sue JOHNSON Primary Care Physician Encounter [facility] [place] Date(s): 05/18/22 - 06/17/22 [facility] [address] [place] [address]- [place] Allergies, Adverse Reactions, Alerts Substance Reaction Severity Status Dust Allergy to pollen Active Pollen seasonal allergies respiratory symptoms Active Incruse Ellipta 1 lightheaded and migraine Active 1dizzy Immunizations Given and Recorded Vaccine Date Status Refusal Reason [id number] 12y+ bivalent booster vax 1 12/24/21 Given [...] vaccine, inactivated 02/08/11 Give n SARS-CoV-2 mRNA (mxmzyfy-pkcg-ddrkz) vax 05/01/21 Recorded zoster vaccine, inactivated 11/03/20 [...] tetanus-diphtheria toxoids (Td) 08/03/05 Given 1Result Comment: [id number] 2Result Comment: 39210-236-03 3Result Comment: [12/07/2017] [address]-92 4Result Comment: [12/21/2016] [facility]: 56404-840-18 5Result Comment: [06/10/2015] #3 6Admin Note: per [...] 1,200 mL, 5 Refills, Maintenance,04/29/22 9:16:00 EST, [facility] #[id number], Partial fill upon patient request if the [...] 0 Refills, Maintenance, 04/09/22 15:16:00 EST,Chew Tablet, [facility] #[id number], Partial fill upon patient request if the [...] Refills, Maintenance, 04/09/22 15:16:00 EST, REC Powder, [facility] #[id number], Partial fill upon patient request if the [...] each, 0 Refills, Maintenance, 04/06/22 15:29:00 EST, [facility] #[id number], Partial fi... Start Date: 04/06/22 Status: Ordered Reclast = 5 mg, IV Infusion, Once, 0 Refills, Maintenance, 11/06/20 10:24:00 EDT, administered at [facility] 10/2020 Start Date: 11/06/20 Status: Ordered Stool Softener + Stimulant Laxative 50 mg-8.6 mg oral capsule 1 capsule, By Mouth, Daily in PM, # 60 capsule, 0 Refills, Maintenance, 04/09/22 15:17:00 EST, Capsule, [facility] #[id number], Partial fill upon patient request if the prescription is for a schedule II opioid drug., 1 capsule By Mouth Daily in P... Start Date: 04/09/22 Status: Ordered Symbicort 160mcg/4.5mcg Inhaler 2, puffs, Inhalation, 2 times a day, rinse mouth and throat after use, # 10.2 Gm, Refills 2, Tot. Refills 2, Maintenance, 06/10/22 20:48:00 EDT, Route to Pharmacy Electronically, NCPDP_[id number], [facility], 158, cm, 06/07/22 [...] Active Vitamin D deficiency Confirmed Active 1gyn 28374 3testing negative insulinoma 4likley dumping sydrome 5abnormal GTT ;sugar 36 two hours into test 6normal CT brain 7new 8resolved after weight loss 9chronic perst 105.3 cm,right per ct scan recent;seeing gynecology soon;they will review 11vit d deficiency;correct [id number] 13per endocrinology monitor 14correction refer GTT; 2 [...] Professional Member Role: PCP Address: Address: [address] [place], [place] [address] Name: Andria Guadalupe RN Position: [facility] [...] Persons Name: KHUSHI CUNNINGHAM Address: home [address] [place] [address] Name: BHUPINDER VENEGAS Address: [address] [place] [address] Name: FELIPE FLORES Address: home [address] [place] [address] Name: ARNAV FLORES Address: home [address] [place] [address] Name: IRINA FLORES Address: home [address] [place] [address] Name: RUSLAN FLORES Address: home [address] [facility] [address] [place] [address] Name: KAISER PLUNKETT Address: home [address] [place] [address]
--- OUTSIDE RECORDS SUMMARY | 2022-08-17 08:46 | XMS_ITS | Continuity of Care Document ---
Author Name Unknown Organization [facility] Address [address] [place] [address]- Care Team Providers Care Learning Disabled Teacher Name Role Phone Louisa LANDRUM, Taras Fuentes Primary Care Physician Encounter [facility] [place] Date(s): 07/13/20 - 08/12/20 [facility] [address] [place] [address]- Allergies, Adverse Reactions, Alerts Substance Reaction Severity [...] toxoids (Td) 08/03/05 Given 1Result Comment: [12/07/2017] [address]-44 2Result Comment: [12/21/2016] [facility]: 08897-432-80 3Result Comment: [06/10/2015] #3 4Admin Note: per pt 5Admin Note: given in clinic Medications acarbose 25 mg oral tablet 1 tablet = 25 mg, By Mouth, 3 times a day, Take 1 tablet 3 times daily with meals. Add to 50mg dosefor total of 75mg 3 times daily. E11.65, # 270 tablet, 3 Refills, Maintenance, 07/15/20 12:23:00 EDT, Tablet, [facility], Partial... Start Date: 07/15/20 Status: Ordered acarbose 50 mg oral tablet 1 tablet = 50 mg, By Mouth, 3 times a day, Take 3 times daily with meals. E11.65, # 90 tablet, 5 Refills, Maintenance, 07/13/20 16:29:00 EDT, Tablet, [facility] 30 tablet, 5 Refills, Maintenance, 07/22/20 8:03:00EDT, [facility], [...] 11:32:00 EST, Aerosol, Route to Pharmacy Electronically, NCPDP_[id number], [facility] - C, 160, cm, 04/29/19 10:47:00 EST, Height... Start Date: 04/29/19 Status: Ordered rifAXIMin 550 mg oral tablet 1 tablet = 550 mg, By Mouth, 3 times a day, # 42 tablet, 0 Refills, Maintenance, 07/14/20 13:37:00 EDT, Tablet, [facility], Partial fill upon patient request if the prescription is for a schedule II opioid drug., 158.02, cm, 07/06... Start Date: 07/14/20 Stop Date: 07/28/20 Status: Ordered Topamax 50 mg oral tablet 2 tablet = 100 mg, By Mouth, Daily at bedtime, # 60 tablet, 6 Refills, Maintenance, 08/04/20 11:44:00 EDT, Tablet, [facility], 158.02, cm, 07/06/20 6:49:00 EDT, Height, [...] 6 Refills, Soft Stop, 08/04/20 11:37:00 EDT, [facility] [...] 1resolved after weight loss 2chronic perst 3gyn 68582 5testing negative insulinoma 6likley dumping sydrome 7abnormal GTT ;sugar 36 two hours into test 8sees gi 9normal CT brain 10new 115.3 cm,right per ct scan recent;seeing gynecology soon;they will review 12vit d deficiency;correct 201440 14per endocrinology monitor 15correction refer GTT; 2 hour glucose 36 16refer GGT 17seeing ortho;pre op 18asma,ama neg/cerulopalsmain wnl,AAT wnl 19Negative hep A antibody positive hep B surface antibody negative antigen negative hep C, normal ferritin 20ukltrasound Social History Social History Type Response Smoking Status Never smoker entered on: 02/20/13 Sex
--- OUTSIDE RECORDS SUMMARY | 2022-08-17 08:47 | XMS_ITS | Continuity of Care Document ---
Author Name Unknown Organization [facility] Address [address] [place] [address] sandi, [address] [place] [address]- Care Team Providers Care Investigation Manager Name Role Phone Eran ELIZABETH, Sue Dahl Primary Care Physician Encounter [facility] [place] Date(s): 01/31/22 - 03/02/22 [facility] [address] [place] [address] Drive, [address] [place] [address]- Attending Physician: Konrad Curtis Admitting Physician: Konrad Curtis Referring Physician: AdmtrKonrad Allergies, Adverse Reactions, Alerts Substance Reaction Severity Status Dust Allergy to pollen Active Pollen seasonal allergies respiratory symptoms Active Incruse Ellipta 1 lightheaded and migraine Active 1dizzy Immunizations Given and Recorded Vaccine Date Status Refusal Reason [id number] 12y+ bivalent booster vax 1 12/24/21 Given [...] vaccine, inactivated 02/08/11 Give n SARS-CoV-2 mRNA (rpmipvj-shyi-apooz) vax 05/01/21 Recorded zoster vaccine, inactivated 11/03/20 [...] tetanus-diphtheria toxoids (Td) 08/03/05 Given 1Result Comment: [address]-8 2Result Comment: [id number] 3Result Comment: [12/07/2017] [address]-88 4Result Comment: [12/21/2016] [facility]: [id number] 5Result Comment: [06/10/2015] #3 6Admin Note: per [...] 6 Refills, Soft Stop, 02/08/22 9:15:00 EST, [facility], Partial [...] 6 Refills, Maintenance, 01/31/22 14:05:00 EST, Suspension, [facility], Partial fill [...] 11/23/21 19:57:00 EDT, Route to Pharmacy Electronically, NCPDP_[id number], [facility], 158, cm, [...] Active Vitamin D deficiency Confirmed Active 1gyn 14578 3testing negative insulinoma 4likley dumping sydrome 5abnormal GTT ;sugar 36 two hours into test 6normal CT brain 7new 8resolved after weight loss 9chronic perst 105.3 cm,right per ct scan recent;seeing gynecology soon;they will review 11vit d deficiency;correct 575264 13per endocrinology monitor 14correction refer GTT; 2 [...] Associate Professional Member Role: PCP Address: Address: [address] [place] [id number] Name: Andria Guadalupe RN [facility] Care Nurse Name: Concha Mckinley RN Position: [facility] RN Member Role: Primary Care Nurse Name: Liz English RN Position: [facility] RN Member Role: Primary Care Nurse Name: Dora Williamson RN Position: [facility] RN Member Role: Primary Care Nurse Care Team Related Persons Name: KHUSHI CUNNINGHAM Address: home [address] [place] [address] Name: BHUPINDER VENEGAS Address: [address] [place] [address] Name: FELIPE FLORES Address: home [address] [place], [place] Name: ARNAV FLORES Address: [address] [place], [place] Name: IRINA FLORES Address: home [address] [place], [place] Name: RUSLAN FLORES Address: home [address] [facility] [address] [place] [address] Name: KAISER PLUNKETT Address: home [address] [place] [address]
--- OUTSIDE RECORDS SUMMARY | 2022-08-17 08:47 | XMS_ITS | Patient Health Record ---
Author Name [facility] Care Team Providers Care Director Of Psychology Name Role Phone Bonita Devine Unavailable [phone] JohnPam gomez Unavailable [phone] PROBLEMS Type Condition ICD9-CM Code HBT32-BZ Code Onset Dates Condition Status W/U Status Risk SNOMED Code Notes Problem Other hammer toe(s) (acquired), left foot M20.42 confirmed [id number] 1 12681 Problem Other hammer toe(s) (acquired), right foot M20.41 confirmed [id number] 01 71108 Problem Hammer toe of left foot M20.42 confirmed [id number] 6803 00729 Problem Primary osteoarthrit is, left ankle and foot M19.072 confirmed [id number] Problem Primary osteoarthrit is, right ankle and foot M19.071 confirmed 989699646 Problem Flexion contracture of joint of right foot M24.574 confirmed 202883920 Problem Flexion contracture of joint of left foot M24.575 confirmed 159863740 Problem Other hammer toe(s) (acquired), left foot M20.42 confirmed 3607037489 1 03197 Problem Other hammer toe(s) (acquired), right foot M20.41 confirmed 165405040 01 52926 ALLERGIES No Known Allergies ENCOUNTERS from 1970 to 2022-08-17 Encounter Location Date Provider Diagnosis [facility] [address] [place] [address] Dec, Bonita Black Other hammer toe(s) (acquired), left foot M20.42 ; Primary osteoarthritis, left ankle and foot M19.072 and Pain in left toe(s) M79.[address] [address] 14 Jun, 2021 Bonita Black Other hammer toe(s) (acquired), right foot M20.41 ; Other hammer toe(s) (acquired), left foot M20.42 ; Primary osteoarthritis, left ankle and foot M19.072 and Primary osteoarthritis, right ankle and foot M19.[address] [address] 15 Dec, 2020 Bonita Black [address] [address] 13 Dec, 2020 Bonita Black Primary osteoarthritis, left ankle and foot M19.072 ; Hypertrophic scar L91.0 ; Pain in left toe(s) M79.675 ; 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 and Hypertrophy of bone, left ankle and foot M89.[address] [address] 30 Nov, 2020 Bonita Black [address] [address] 21 Nov, [address] [address] 08 Nov, 2020 Bonita Black Pain in left toe(s) M79.675 ; Primary osteoarthritis, left ankle and foot M19.072 ; 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 ; Hypertrophic scar L91.0 and Hypertrophy of bone, left ankle and foot M89.372 [facility] [address] [place] [address] 08 Nov, 2020 Bonita Black [address] [address] Oct, Bonita Black Pain in left toe(s) M79.675 ; 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 ; Hypertrophic scar L91.0 and Hypertrophy of bone, left ankle and foot M89.[address] [facility] [address] Oct, [facility] [address] [place] [address] Sep, Bonita Black Tinea unguium B35.1 ; Hammer toe of left foot M20.42 ; Pain in right toe(s) M79.674 and Pain in left toe(s) M79.[address] [address] July, Bonita Black Hammer toe of left foot M20.42 and Pain in left toe(s) M79.675 [facility] [address] [place] [address] July, Bonita Black [facility] [address] [place] [address] Jun, Bonita Black Hammer toe of left foot M20.42 and Localized edema R60.[address] [address] 08 Jun, 2020 Bonita Black Hammer toe of left foot M20.42 and Localized edema R60.[address] [address] 30 May, 2020 Pam Perica Hammer toe of left foot M20.42 and Localized edema R60.[address] [address] May, Bonita Black Hammer toe of left foot M20.42 and Localized edema R60.[address] [address] May, Bonita Black [facility] [address] [place] [address] May, Bonita Black Hammer toe of left foot M20.[address] [address] 04 May, 2020 Bonita Black Other hammer toe(s) (acquired), left foot M20.42 ; Hypertrophy of bone, left ankle and foot M89.372 ; Tinea unguium B35.1 and Pain in left toe(s) M79.675 [facility] [address] [address] Apr, Bonitakassandra Devine [facility] [address] [address] Apr, Bonita [facility] [address] Mar, Bonita Devine Other hammer toe(s) (acquired), left foot M20.42 ; Hypertrophy of bone, left ankle and foot M89.372 ; Tinea unguium B35.1 and Pain in left toe(s) M79.675 IMMUNIZATIONS Vaccine Route Administration Date Status COVID-19 Pfizer BioNTech Vaccine Unknown Mar 19, 2020 Administered SOCIAL HISTORY Tobacco Use: Social History Observation Description Date Details (start date - stop date) Never Smoker Sex Assigned At : Social History Observation Description Sex Assigned At Unknown Alcohol Screen Question Answer Notes Did you have a drink containing alcohol in the p ast year? No Points 0 Interpretation Negative Tobacco Use/Smoking Question Answer Notes Are you a: never smoker Tobacco use other than smoking: Question Answer Notes Are you an other tobacco user? No REASON FOR REFERRAL No Information VITAL SIGNS from 1968 to 2022-08-17 Height 5 ft 2 in in Dec, Weight 142 lbs Dec, BMI 25.97 kg/m2 Dec, Temperature 97.0 degrees Fahrenheit July, Blood pressure systolic 124 mm Hg Oct, Blood pressure diastolic 88 mm Hg Oct, MEDICATIONS Medication SIG (Take, Route, Frequency, Duration) Notes Start Date End Date Status Famotidine 40 MG 1 tablet at bedtime Orally Once a day for 30 day(s) Active Amitriptyline HCl 25 MG Oral for 30 Not-Taking clonazePAM 1 MG Oral for 30 No t-Taking Gabapentin 600 MG 1 tablet Orally Once a day for 30 day(s) Not-Taking buPROPion HCl ER (XL) 300 MG Oral for 30 Active Topiramate 50 MG Oral for 30 A ctive Ibuprofen 800 MG 1 tablet with food o r milk as needed Orally Three times a day for 14 days May, Not-Taking Doxepin HCl 50 MG 1 capsule at bedtime Orally Once a day for 30 day(s) Feb, Not-Taking Montelukast Sodium 10 MG Oral for 90 Active Loratadine 10 MG 1 tablet Orally Once a day for 30 day(s) Feb, Active Acetaminophen Extra Strength 500 MG 1 tablet as needed Orally every 6 hrs for 10 days May, Not-Taking traZODone HCl 100 MG as directed Orally Active Ubrelvy 100 MG 1 tablet may take second dose at least 2 hours after first dose as needed Orally Active Hydrocortisone 2.5 % 1 application Externally Once a day for 14 days Dec, Active Dexilant 60 MG Oral for 30 Act maxim Latuda 60 MG Oral for 30 Activ e KlonoPIN 1 MG 1 tablet Orally Once a day Active RESULTS from 1968 to 2022-08-17 Component Value Reference Range Notes X ray : Foot, left 3V Reviewed date:12/27/2021 14:37:45 Interpretation: See Examination above Performing Lab: Notes/Report: X ray : Foot, left 2V Reviewed date:06/17/2021 11:32:24 Interpretation: See Examination above Performing Lab: Notes/Report: X ray : Foot, right 2V Reviewed date:06/17/2021 11:32:14 Interpretation: See Examination above Performing Lab: Notes/Report: X ray : Foot, left 2V Reviewed date:10/26/2020 12:42:21 Interpretation: See Examination above Performing Lab: Notes/Report: X ray : Foot, left 3V Reviewed date:06/11/2020 12:34:26 Interpretation: See Examination above Performing Lab: Notes/Report: X ray : Foot, left 3V Reviewed date:05/25/2020 10:04:53 Interpretation: See Examination above Performing Lab: Notes/Report: X ray : Foot, left 3V Reviewed date:03/30/2020 09:44:05 Interpretation: See Examination above Performing Lab: Notes/Report: REASON FOR VISIT No Information MEDICAL (GENERAL) HISTORY Type Description Date Medical History Anxiety Medical History asthma Medical History Back,Hip,and Knee pain Medical History Depression Medical History Hiatal hernia Medical History Headaches Medical History High blood pressure Medical History Psychiatric disorder Medical History Reflux ( GERD) Medical History Sciatica Medical History chronic sinusitis Medical History Chicken pox Medical History Joint implants/screws Surgical History gastric bypass 2002 Surgical History lap band 2008 Surgical History gall bladder 2018 Surgical History lumbar 2019 Surgical History hernia Surgical History hammer toe Surgical History sinus surgery 2019 Surgical History rotator cuff tear repair 2013 Surgical History lap band removal 02/11/20 Surgical History Arthrodesis PIPS/DIPJ with k wi re fixation 4th left 05/20/2020 Surgical History gastric bypass revision 1 MENTAL STATUS No Information ASSESSMENTS Encounter Date Diagnosis Assessment Notes Treatment Notes Treatment Clinical Notes Dec, Other hammer toe(s) (acquired), left foot (ICD-10 - M20.42) Dec, Primary osteoarthritis, left ankle and foot (ICD-10 - M19.072) Dec, Pain in left toe(s) (ICD-10 - M79.675) Jun, Other hammer toe(s) (acquired), left foot (ICD-10 - M20.42) Jun, Other hammer toe(s) (acquired), right foot (ICD-10 - M20.41) 14 Jun, 2021 Primary osteoarthritis, left ankle and foot (ICD-10 - M19.072) 14 Jun, 2021 Primary osteoarthritis, right ankle and foot (ICD-10 - M19.071) Dec, Primary osteoarthritis, left ankle and foot (ICD-10 - M19.072) Dec, Hypertrophic scar (ICD-10 - L91.0) Dec, Pain in left toe(s) (ICD-10 - M79.675) Dec, 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 (ICD-10 - M20.5X2) Dec, Hypertrophy of bone, left ankle and foot (ICD-10 - M89.372) Nov, Primary osteoarthritis, left ankle and foot (ICD-10 - M19.072) Nov, Pain in left toe(s) (ICD-10 - M79.675) Nov, 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 (ICD-10 - M20.5X2) Nov, Hypertrophic scar (ICD-10 - L91.0) Nov, Hypertrophy of bone, left ankle and foot (ICD-10 - M89.372) Oct, Pain in left toe(s) (ICD-10 - M79.675) Oct, 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 (ICD-10 - M20.5X2) Oct, Hypertrophic scar (ICD-10 - L91.0) Oct, Hypertrophy of bone, left ankle and foot (ICD-10 - M89.372) Sep, Tinea unguium (ICD-10 - B35.1) Sep, Hammer toe of left foot (ICD-10 - M20.42) Sep, Pain in right toe(s) (ICD-10 - M79.674) Sep, Pain in left toe(s) (ICD-10 - M79.675) July, Hammer toe of left foot (ICD-10 - M20.42) July, Pain in left toe(s) (ICD-10 - M79.675) Jun, Localized edema (ICD-10 - R60.0) Jun, Hammer toe of left foot (ICD-10 - M20.42) Jun, Hammer toe of left foot (ICD-10 - M20.42) Jun, Localized edema (ICD-10 - R60.0) May, Localized edema (ICD-10 - R60.0) 30 May, 2020 Hammer toe of left foot (ICD-10 - M20.42) May, Hammer toe of left foot (ICD-10 - M20.42) May, Localized edema (ICD-10 - R60.0) 17 May, 2020 Hammer toe of left foot (ICD-10 - M20.42) May, Other hammer toe(s) (acquired), left foot (ICD-10 - M20.42) May, Hypertrophy of bone, left ankle and foot (ICD-10 - M89.372) May, Tinea unguium (ICD-10 - B35.1) May, Pain in left toe(s) (ICD-10 - M79.675) Mar, Other hammer toe(s) (acquired), left foot (ICD-10 - M20.42) Mar, Hypertrophy of bone, left ankle and foot (ICD-10 - M89.372) Mar, Tinea unguium (ICD-10 - B35.1) Mar, Pain in left toe(s) (ICD-10 - M79.675) PLAN OF TREATMENT Pending Tests Test Name Order Date , M4225-GODPH/INJECT, JOINT/BURSA 2 [id number] NAIL, -2020-09-15 X ray : Foot, left 3V 2020-06-19 X ray : Foot, left 3V 2020-06-02 [id number] NAIL, -2020-03-30 Insurance Providers Payer Name Payer Address Payer Phone Insured Name Patient Relationship to Insured Coverage Start Date Coverage End Date Subscriber Number Group Number [employer] [address] [facility] [phone] Iona Jain Self - patient is the insured [id number] [employer] [address] [facility] [address] Iona Jain Self - patient is the insured [id number]
--- OUTSIDE RECORDS SUMMARY | 2022-08-17 08:47 | XMS_ITS | Continuity of Care Document ---
Author Name Unknown Organization [facility] Oswaldo lt Address [address] [place] [address]- Care Team Providers Care Boat Ride Operator Name Role Phone Sue Barillas NP Primary Care Physician Encounter [facility] Date(s): 03/30/22 - 07/28/22 [facility] Adult [address] [place] [address]- Attending Physician: Sue Barillas NP Referring Physician: [...] pneumococcal 20-valent conjugate vaccine 2 07/28/22 Given [id number] 12y+ bivalent booster vax 3 12/24/21 Given [...] vaccine, inactivated 02/08/11 Give n SARS-CoV-2 mRNA ([id number]) vax 2/26/22 Recorded zoster vaccine, inactivated 11/03/20 Recorded zoster [...] (IM) (oldterm) 9 12/25/07 Given 1Result Comment: [id number] 2Result Comment: [id number] 3Result Comment: [id number] 4Result Comment: [id number] 5Result Comment: [12/07/2017] [address]-36 6Result Comment: [12/21/2016] [facility]: [id number] 7Result Comment: [06/10/2015] #3 8Admin Note: per pt 9Admin Note: given in clinic Medications acetaminophen 500 mg oral tablet 2 tablet = 1,000 mg, By Mouth, Every 6 hours, PRN as needed for fever, # 200 tablet, 0 Refills, Maintenance, 12/03/21 10:17:00 EDT, Tablet, [facility], Partial fill upon patient request if the prescription is for a schedule II opi... Start Date: 12/03/21 Status: Ordered Albuterol (Eqv-ProAir HFA) 90 mcg/inh inhalation aerosol 2 puffs, Inhalation, Every 4 hours, PRN NEEDED FOR WHEEZING, # 8.5 Gm, 5 Refills, Maintenance, 03/09/22 11:21:00 EST, [facility], 17, INHALE TWO [...] 6 Refills, Maintenance, 11/03/21 8:23:00 EDT, Tablet, [facility], 2 tablet By Mouth 2 times a day, 158, cm, 11/03/21 8:01:00 EDT,Height, 71.5, kg, 09/01/21 16:21:00 EDT, Dry Weight Start Date: 11/03/21 Status: Ordered cetirizine 10 mg oral tablet 1 tablet, By Mouth, Daily, # 30 tablet, 5 Refills, Maintenance, 07/28/22 13:34:00 EDT, [facility], 158, cm, 07/28/22 13:14:00 EDT, [...] Refills, Maintenance, 05/30/22 7:57:00 EDT, CR Capsule, [facility], Partial fill upon patient request if the prescription is for a schedule II opioid... Start Date: 05/30/22 Status: Ordered Emgality Prefilled Pen 120 mg/mL subcutaneous solution = 120 mg, Subcutaneous Injection, Once, Maintenance Dose, # 3 kit, 2 Refills, Soft Stop, 07/14/22 10:04:00 EDT, [facility], requesting 3 month [...] 6 Refills, Maintenance, 01/31/22 14:05:00 EST, Suspension, [facility], Partial fill upon patient request if the prescription is for a schedule II opioid drug., 163, cm, 01/18... Start Date: 01/31/22 Stop Date: 08/29/22 Status: Ordered Fiber Choice 1.5 g oral tablet, chewable 1 tablet = 1.5 Gm, Chew, 3 times a day, # 90 tablet, 0 Refills, Maintenance, 04/09/22 15:16:00 EST,Chew Tablet, [id number], Partial fill upon patient request if the [...] Refills, Maintenance, 04/09/22 15:16:00 EST, REC Powder, [id number], Partial fill upon patient request if the prescription is for a schedule II opioid drug., 17 Gm... Start Date: 04/09/22 Status: Ordered montelukast 10 mg oral tablet 1, tablet, By Mouth, Daily in PM, # 90 tablet, Refills 1, Tot. Refills 1, Maintenance, 11/14/21 11:28:00 EDT, Route to Pharmacy Electronically, [facility], 158, cm, 11/03/21 8:01:00 EDT, Height, 71.5, kg, 09/01/21 16:21:00 EDT, Start Date: 11/14/21 Status: Ordered Nurtec ODT 75 mg oral tablet, disintegrating See Instructions, TAKE ONE TABLET DAILY NEEDED FOR migraines, DO NOT EXCEED ONE TABLET IN 24 HOURS, # 8 tablet, 6 Refills, Maintenance, 12/28/21 15:14:00 EDT, [facility], 163,cm, 12/24/21 8:20:00 EDT, Height, 67, kg, 11/26/21... Start Date: 12/28/21 Status: Ordered One touch ultra lancets One touch ultra lancets, See Instructions, # 100 each, Refills 7, Tot. Refills 7, Maintenance, Use glucose meter to check blood glucose up to 3x a day. E11., 04/29/22 13:28:00 EST, Supply, 158, cm, 04/29/22 [...] 0 Refills, Maintenance, 04/09/22 15:17:00 EST, Capsule, [id number], Partial fill upon patient request if the prescription is for a schedule II opioid drug., 1 capsule By Mouth Daily in P... Start Date: 04/09/22 Status: Ordered Symbicort 160mcg/4.5mcg Inhaler 2, puffs, Inhalation, 2 times a day, rinse mouth and throat after use, # 10.2 Gm, Refills 2, Tot. Refills 2, Maintenance, 06/10/22 20:48:00 EDT, Route to Pharmacy Electronically, NCPDP_[id number], [facility], 158, cm, 06/07/22 [...] gastric banding Feb 2021 2 Confirmed Active Hypoglycemia 3, 4, [...] Active Vitamin D deficiency Confirmed Active 1gyn 70126 3testing negative insulinoma 4likley dumping sydrome 5abnormal GTT ;sugar 36 two hours into test 6normal CT brain 7new 8resolved after weight loss 9chronic perst 105.3 cm,right per ct scan recent;seeing gynecology soon;they will review 11vit d deficiency;correct [id number] 13per endocrinology monitor 14correction refer GTT; 2 hour glucose 36 15refer GGT 16seeing ortho;pre op 17asma,ama neg/cerulopalsmain wnl,AAT wnl 18Negative hep A antibody positive hep B surface antibody negative antigen negative hep C, normal ferritin 19ukltrasound Social History Social History Type Response Smoking Status Never smoker entered on: 02/20/13 Sex Patient Care team information Care Team Personnel Name: Caitlyn Mcgee RN Position: [facility] RN Member Role: Primary Care Nurse Name: Sue Barillas NP Position: [facility] PCO Associate Professional Member Role: PCP Address: Address: [address] [place] [address]- Name: Andria Guadalupe RN Position: [facility] SN RN Member Role: Primary Care Nurse Name: Liz Martin RN Position: [facility] RN Member Role: Primary Care Nurse Name: Ambreen Mcmahon RN Position: [facility] RN Member Role: Primary Care Nurse Name: Irais Grijalva RN Position: S RN Member Role: Primary Care Nurse Name: Autumn Martinez RN Position: [facility] RN Member Role: Primary Care Nurse Name: Liz English RN Position: [facility] RN Member Role: Primary Care Nurse Name: Dora Williamson RN Position: S RN Member Role: Primary Care Nurse Care Team Related Persons Name: KHUSHI CUNNINGHAM Address: home [address] [place] [address] Name: BHUPINDER VENEGAS Address: home [address] [place] [address] Name: FELIPE FLORES Address: home [address] [place] [address] Name: ARNAV FLORES Address: home [address] [place] [address] Name: IRINA FLORES Address: home [address] [place] [address] Name: RUSLAN FLORES Address: home [address] [place] [address] Name: KAISER PLUNKETT Address: home [address] [place] [address]
--- OUTSIDE RECORDS SUMMARY | 2022-08-17 08:47 | XMS_ITS | Continuity of Care Document ---
Author Name Unknown Organization [facility]aldo Address [address] [place] [address]- Care Team Providers Care Ice Plant Operator Name Role Phone Sue Barillas NP Primary Care Physician [phone] Encounter [facility] [place] Date(s): 03/18/20 - 03/25/20 [facility] Adult [address] [place] [address]- Encounter Diagnosis Orthostatic hypotension(Discharge Diagnosis) - 03/17/20 Attending Physician: Sue Barillas NP Referring Physician: [...] toxoids (Td) 08/03/05 Given 1Result Comment: [12/07/2017] [id number] 2Result Comment: [12/21/2016] [facility]: [id number] 3Result Comment: [06/10/2015] #3 4Admin Note: per [...] 0 Refills, Maintenance, 07/03/19 13:59:00 EDT, Solution, [facility], 160, cm, 05/29/19 13:36:00 EDT, Height, 56.5, kg, 03... Start Date: 07/03/19 Status: Ordered amitriptyline 25 mg oral tablet 25 mg, 1, tablet, By Mouth, Daily at bedtime, # 30 tablet, Refills 5, Tot. Refills 5, Maintenance, 03/18/20 10:49:00 EST, Route to Pharmacy Electronically, [facility], 160.02, cm, 03/18/20 7:48:00 [...] 60 capsule, 5 Refills, Maintenance, 12/26/19 12:06:00EDT, [facility], 160.02, cm, 12/02/19 6:45:00 [...] 02/25/19 16:55:00 EST, Route to Pharmacy Electronically, [facility], 158, cm, [...] 0 Refills,Maintenance, 10/06/19 21:07:00 EDT, DIS Tablet, [facility] Start Date: 10/06/19 Stop Date: 10/09/19 Status: Ordered ProAir HFA 90 mcg/inh inhalation aerosol with adapter 2, puffs, Inhalation, Every 4 hours, PRN, # 8.5 Gm, Refills 2, Tot. Refills 2, Maintenance, 04/29/19 11:32:00 EST, Aerosol, Route to Pharmacy Electronically, NCPDP_[id number], [facility], 160, cm, 04/29/19 10:47:00 EST, Height... Start Date: 04/29/19 Status: Ordered Symbicort 160mcg/4.5mcg Inhaler 2, puffs, Inhalation, 2 times a day, use with spacer chamber, # 1 each, Refills 11, Tot. Refills 11, Maintenance, 07/08/19 13:36:00 EDT, Route to Pharmacy Electronically, NCPDP_[id number], [facility], 160, cm, 07/08/19 13:03:00 ED... Start Date: 07/08/19 Status: Ordered Topamax 50 mg oral tablet See Instructions, take 1 tab in am and 2 tab at bedtime. If AM dose causes bad sedation, add to HS dose., # 90 tablet, 6 Refills, Maintenance, 03/12/20 11:09:00 EST, Tablet, [facility], weaning zonegran off by [...] 6 Refills, Soft Stop, 03/12/20 11:04:00 EST, [facility], Partial fill upon patient request if the prescription is for a schedule II opioid drug., 160.02, cm, 03/10/20 8:18:00 EST, H... Start Date: 03/12/20 Stop Date: 10/08/20 Status: Ordered Zofran 4 mg oral tablet 1 tablet = 4 mg, By Mouth, Every 8 hours, PRN Nausea & Vomiting, # 30 tablet, 0 Refills, Maintenance, 09/30/19 11:23:00 EDT, [facility], 160.02, cm, 09/24/19 15:31:00 [...] perst 3folowed by mental health;recent hospitalization 4gyn 72875 6testing negative insulinoma 7likley dumping sydrome 8abnormal GTT ;sugar 36 two hours into test 9sees gi 10normal CT brain 11new 125.3 cm,right per ct scan recent;seeing gynecology soon;they will review 13vit d deficiency;correct [id number] 15per endocrinology monitor 16correction refer GTT; 2 hour glucose 36 17refer GGT 18seeing ortho;pre op 19asma,ama neg/cerulopalsmain wnl,AAT wnl 20Negative hep A antibody positive hep B surface antibody negative antigen negative hep C, normal ferritin 21ukltrasound Diagnosis Diagnosis Type Effective Dates Health Status Clinical Service Informant Orthostatic hypotension Discharge Diagnosis 03/17/20 Vital Signs Most recent to oldest [Reference Range]: 1 2 Height 160.02 cm (03/18/20 7:48 AM) 160.02 cm (03/18/20 7:37 AM) Weight 75.2 kg (03/18/20 7:37 AM) Oxygen Saturation [94-100 %] 98 % (03/18/20 7:37 AM) Pulse Rate [55-90 bpm] 83 bpm (03/18/20 7:37 AM) Body Mass Index [18.5-24.99] 29.37 *H* (03/18/20 7:37 AM) Respiratory Rate [16-30 br/min] 16 br/mi n (03/18/20 7:37 AM) Temperature [96.8-100.4 DegF] 97.9 DegF (03/18/20 7:37 AM) Mode of Delivery (Oxygen) Room air (03/18/20 7:37 AM) Temperature Route Oral (03/18/20 7:37 AM) Weight Obtained Via Standing scale (03/18/20 7:37 AM) Social History Social History Type Response Smoking Status Never smoker entered on: 02/20/13 Sex
--- OUTSIDE RECORDS SUMMARY | 2022-08-17 08:47 | XMS_ITS | Continuity of Care Document ---
Author Name Unknown Organization [facility] Address [address] [place] [address] ve [address] [place] [address]- Care Team Providers Care Installation Service Representative Name Role Phone Sue Barillas NP Primary Care Physician Encounter [facility] Date(s): 05/25/22 - 06/01/[address] [place] [address]- Encounter Diagnosis RLQ abdominal pain(Discharge Diagnosis) - 05/25/22 Attending Physician: Avery Costello MD Referring Physician: Sue Barillas NP Allergies, Adverse Reactions, Alerts Substance Reaction Severity Status Dust Allergy to pollen Active Pollen seasonal allergies respiratory symptoms Active Incruse Ellipta 1 lightheaded and migraine Active 1dizzy Immunizations Given and Recorded Vaccine Date Status Refusal Reason [id number] 12y+ bivalent booster vax 1 12/24/21 Given [...] vaccine, inactivated 02/08/11 Give n SARS-CoV-2 mRNA ([id number]) vax 05/01/21 Recorded zoster vaccine, inactivated 11/03/20 [...] tetanus-diphtheria toxoids (Td) 08/03/05 Given 1Result Comment: [id number] 2Result Comment: [id number] 3Result Comment: [12/07/2017] [address]-37 4Result Comment: [12/21/2016] [facility]: [id number] 5Result Comment: [06/10/2015] #3 6Admin Note: per pt 7Admin Note: given in clinic Medications acetaminophen 500 mg oral tablet 2 tablet = 1,000 mg, By Mouth, Every 6 hours, PRN as needed for fever, # 200 tablet, 0 Refills, Maintenance, 12/03/21 10:17:00 EDT, Tablet, [facility], Partial fill upon patient request if the prescription is for a schedule II opi... Start Date: 12/03/21 Status: Ordered Albuterol (Eqv-ProAir HFA) 90 mcg/inh inhalation aerosol 2 puffs, Inhalation, Every 4 hours, PRN NEEDED FOR WHEEZING, # 8.5 Gm, 5 Refills, Maintenance, 03/09/22 11:21:00 EST, [facility], 17, INHALE TWO PUFFS BY [...] Refills, Maintenance, 11/03/21 8:23:00 EDT, Tablet, [facility], 2 tablet By Mouth 2 times a day, 158, cm, 11/03/21 8:01:00 EDT,Height, 71.5, kg, 09/01/21 16:21:00 EDT, Dry Weight Start Date: 11/03/21 Status: Ordered Carafate 1 gm/10 ml oral suspension 10 mL = 1 Gm, By Mouth, 3 times a day before meals and bedtime, # 1,200 mL, 5 Refills, Maintenance,04/29/22 9:16:00 EST, [facility] #[id number], Partial fill upon patient request if the [...] Refills, Maintenance, 05/30/22 7:57:00 EDT, CR Capsule, [facility], Partial fill upon patient request if the prescription is for a schedule II opioid... Start Date: 05/30/22 Status: Ordered Emgality Prefilled Pen 120 mg/mL subcutaneous solution = 120 mg, Subcutaneous Injection, Once, Maintenance Dose, # 3 kit, 2 Refills, Soft Stop, 03/17/22 8:08:00 EST, [facility], requesting 3 month supply for cheaper martinez. with 2 refills, 163, cm, 03/15/22 10:13:00 EST, Height, 68.1,... Start Date: 03/17/22 Status: Ordered EPINEPHrine 1 mg/mL injectable solution 0.3 mL = 0.3 mg, Intramuscular, Once, # 1 mL, 1 Refills, Soft Stop, 03/08/21 15:07:00 EST, Solution, [facility], Partial fill upon patient request if the prescription is for a schedule II opioid drug., 158, cm, 03/08/21 12:18:00 E... Start Date: 03/08/21 Status: Ordered famotidine 40 mg oral tablet 1 tablet = 40 mg, By Mouth, 2 times a day, # 60 tablet, 6 Refills, Maintenance, 01/31/22 14:05:00 EST, Suspension, [facility], Partial fill upon patient request if the prescription is for a schedule II opioid drug., 163, cm, 01/18... Start Date: 01/31/22 Stop Date: 08/29/22 Status: Ordered Fiber Choice 1.5 g oral tablet, chewable 1 tablet = 1.5 Gm, Chew, 3 times a day, # 90 tablet, 0 Refills, Maintenance, 04/09/22 15:16:00 EST,Chew Tablet, [facility] #[id number], Partial fill upon patient request if the [...] Refills, Maintenance, 04/09/22 15:16:00 EST, REC Powder, [facility] #[id number], Partial fill upon patient request if the prescription is for a schedule II opioid drug., 17 Gm... Start Date: 04/09/22 Status: Ordered montelukast 10 mg oral tablet 1, tablet, By Mouth, Daily in PM, # 90 tablet, Refills 1, Tot. Refills 1, Maintenance, 11/14/21 11:28:00 EDT, Route to Pharmacy Electronically, [facility], 158, cm, 11/03/21 8:01:00 EDT, Height, 71.5, kg, 09/01/21 16:21:00 EDT, Start Date: 11/14/21 Status: Ordered Nurtec ODT 75 mg oral tablet, disintegrating See Instructions, TAKE ONE TABLET DAILY NEEDED FOR migraines, DO NOT EXCEED ONE TABLET IN 24 HOURS, # 8 tablet, 6 Refills, Maintenance, 12/28/21 15:14:00 EDT, [facility], 163,cm, 12/24/21 8:20:00 EDT, Height, [...] each, 0 Refills, Maintenance, 04/06/22 15:29:00 EST, [facility] #[id number], Partial fi... Start Date: 04/06/22 Status: Ordered Reclast = 5 mg, IV Infusion, Once, 0 Refills, Maintenance, 11/06/20 10:24:00 EDT, administered at [facility] 10/2020 Start Date: 11/06/20 Status: Ordered Stool Softener + Stimulant Laxative 50 mg-8.6 mg oral capsule 1 capsule, By Mouth, Daily in PM, # 60 capsule, 0 Refills, Maintenance, 04/09/22 15:17:00 EST, Capsule, [facility] #[id number], Partial fill upon patient request if the prescription is for a schedule II opioid drug., 1 capsule By Mouth Daily in P... Start Date: 04/09/22 Status: Ordered Symbicort 160mcg/4.5mcg Inhaler 2, puffs, Inhalation, 2 times a day, rinse mouth and throat after use, # 10.2 Gm, Refills 3, Tot. Refills 3, Maintenance, 11/23/21 19:57:00 EDT, Route to Pharmacy Electronically, NCPDP_[id number], [facility], 158, cm, 11/03/21 8:0... Start [...] Refills, Maintenance, 12/10/21 9:44:00 EDT, Tablet, [facility], Partial fill upon patient [...] Active Vitamin D deficiency Confirmed Active 1gyn 09681 3testing negative insulinoma 4likley dumping sydrome 5abnormal GTT ;sugar 36 two hours into test 6normal CT brain 7new 8resolved after weight loss 9chronic perst 105.3 cm,right per ct scan recent;seeing gynecology soon;they will review 11vit d deficiency;correct [id number] 13per endocrinology monitor 14correction refer GTT; 2 hour glucose 36 15refer GGT 16seeing ortho;pre op 17asma,ama neg/cerulopalsmain wnl,AAT wnl 18Negative hep A antibody positive hep B surface antibody negative antigen negative hep C, normal ferritin 19ukltrasound Diagnosis Diagnosis Type Effective Dates Health Status Cl inical Service Informant RLQ abdominal pain Discharge Diagnosis 05/25/22 Vital Signs Most recent to oldest [Reference Range]: 1 Height 158 cm (05/25/22 1:59 PM) Weight 63.7 kg (05/25/22 1:59 PM) Pulse Rate [55-90 bpm] 75 bpm (05/25/22 1:59 PM) Body Mass Index [18.5-24.99 kg/m2] 25.52 kg/m2 *H* (05/25/22 1:59 PM) Blood Pressure [90-138/55-84 mm Hg] 121/ 85mm Hg (05/25/22 1:59 PM) Respiratory Rate [16-30 br/min] 16 br/mi n (05/25/22 1:59 PM) Temperature [96.8-100.4 DegF] 97.8 DegF (05/25/22 1:59 PM) Blood pressure sites Arm, left (05/25/22 1:59 PM) Temperature Route Temporal (05/25/22 1:59 PM) Weight Obtained Via Standing scale (05/25/22 1:59 PM) Social History Social History Type Response Smoking Status Never smoker entered on: 02/20/13 Sex Patient Care team information Care Team Personnel Name: Caitlyn Mcgee RN Position: [facility] RN Member Role: Primary Care Nurse Name: Sue Barillas NP Position: [facility] PCO Associate Professional Member Role: PCP Address: Address: [address] [place] [address]- Name: Andria Guadalupe RN Position: [facility] SN RN Member Role: Primary Care [...] Related Persons Name: KHUSHI CUNNINGHAM Address: home [address] [place] [address] Name: BHUPINDER VENEGAS Address: [address] [place] [address] Name: FELIPE FLORES Address: home [address] [place] [address] Name: ARNAV FLORES Address: home [address] [place] [address] Name: IRINA FLORES Address: home [address] [place] [address] Name: RUSLAN FLORES Address: home [address] [place] [address] Name: KAISER PLUNKETT Address: home [address] [place] [address]
--- OUTSIDE RECORDS SUMMARY | 2022-08-17 08:47 | XMS_ITS | Patient Health Record ---
Author Name Unknown Organization [facility] Address [address] [place] [address] Care Team Providers Care Manager Telemetry Name Role Phone ALYSONHesham MOISES Unavailable [phone] Alex Burgos Unavailable [phone] Sujata Celis Unavailable [phone] Brigitte Roberts Unavailable [phone] PROBLEMS Type Condition ICD9-CM Code MBH42-QD Code Onset Dates Condition Status W/U Status Risk SNOMED Code Notes Problem Obesity, unspecified E66.9 confirmed 632597494 Problem Body mass index (BMI) 30.0-30.9, adult Z68.30 confirmed 421674620 Problem Gastro-esopha geal reflux disease without esophagitis K21.9 confirmed 658554756 Problem Body mass index [BMI] 29.0-29.9, adult Z68.29 confirmed 388300471 Problem Dietary counseling and surveillance Z71.3 confirmed 335461134 Problem Insomnia, unspecified G47.00 confirmed 827977662 Problem Migraine with aura, not intractable, without status migrainosus G43.109 confirmed 3905314 Problem Major depressive disorder, recurrent, mild F33.0 confirmed 59507992 Problem Bariatric surgery status Z98.84 confirmed 366150602 ALLERGIES Allergen (clinical drug ingredient) Drug/Non Drug Allergy documented on EMR Reaction Allergy Type Onset Date Status Seasonal IC Unknown Drug Allergy Activ e ENCOUNTERS from 1970 to 2022-08-17 Encounter Location Date Provider Diagnosis [facility] [address] [place] [address] Aug, MOISES COLBY Dietary counseling and surveillance Z71.3 and Other obesity due to excess calories E66.09 [facility] [address] [place] [address] Jun, [facility] [address] [place] [address] May, [place] [facility] [facility] Dietary counseling and surveillance Z71.3 and Body mass index [BMI] 26.0-26.9, adult Z68.26 [facility] [address] [place] [address] 14 Apr, 2022 [facility] [address] [place], [place] 13 Apr, 2022 [facility] Body mass index [BMI ] 26.0-26.9, adult Z68.26 [facility] [address] [place] [address] 18 Mar, 2022 Brigitt[facility] Castrolan Dietary counseling and surveillance Z71.3 and Body mass index [BMI] 26.0-26.9, adult Z68.[address] [address] 15 Feb, 2022 [facility] Body mass index [BMI ] 26.0-26.9, adult Z68.26 [facility] [address] [place] [address] 14 Feb, 2022 Brigitte Armando Dietary counseling and surveillance Z71.3 and Body mass index [BMI] 26.0-26.9, adult Z68.[address] [address] 05 Feb, [address] [address] Jan, [address] [address] 16 Jan, [address] [address] Jan, [facility] [address] [place] [address] Dec, [place] [facility] Dietary counseling and surveillance Z71.3 and Body mass index [BMI] 26.0-26.9, adult Z68.[address] [address] Oct, [place] [facility] Body mass index [BMI ] 29.0-29.9, adult Z68.[address] [address] Sep, [address] [address] Aug, [place] [facility] Body mass index [BMI ] 29.0-29.9, adult Z68.29 [facility] [address] [place] [address] Aug, [place] [facility] GUL Dietary counseling and surveillance Z71.3 and Body mass index [BMI] 29.0-29.9, adult Z68.29 [facility] [address] [place] [address] Jun, [facility] GUL Dietary counseling and surveillance Z71.3 and Body mass index [BMI] 29.0-29.9, adult Z68.[address] [address] Jun, [address] [address] Jun, [place] [facility] [facility] Body mass index (BMI ) 30.0-30.9, adult Z68.30 [facility] [address] [place] [address] Jun, [place] [facility] GUL Dietary counseling and surveillance Z71.3 and Body mass index (BMI) 30.0-30.9, adult Z68.[address] [address] May, [place] [address] 29 May, 2021 [facility] [address] [place], [place] 29 May, 2021 [facility] Dietary counseling and surveillance Z71.3 and Body mass index (BMI) 30.0-30.9, adult Z68.[address] 22 May, 2021 [facility] [address] [place], [place] 17 May, 2021 [facility] [address] [place], [place] 15 May, 2021 [facility] Dietary counseling and surveillance Z71.3 ; Body mass index (BMI) 30.0-30.9, adult Z68.30 ; Gastro-esophageal reflux disease without esophagitis K21.9 ; Insomnia, unspecified G47.00 ; Migraine with aura, not intractable, without status migrainosus G43.109 and Bariatric surgery status Z98.84 IMMUNIZATIONS Vaccine Route Administration Date Status COVID Pfizer Unknown May 01, 2021 Administered Shingrix Unknown Nov 03, 2020 Administered Shingrix Unknown August 10, 2020 Administered COVID 19 Pfizer Unknown Apr 09, 2020 Administered COVID 19 Pfizer Unknown Mar 19, 2020 Administered Influenza, seasonal, injectable, 6-35 months Unknown Dec 24, 2021 Administered SOCIAL HISTORY Tobacco Use: Social History Observation Description Date Details (start date - stop date) Never Smoker Sex Assigned At : Social History Observation Description Sex Assigned At Unknown Alcohol Screen (Audit-C) Question Answer Notes Did you have a drink containing alcohol in the p ast year? No Points 0 Interpretation Negative Tobacco Use/Smoking Question Answer Notes Are you a never smoker REASON FOR REFERRAL from 1968 to 2022-08-17 Reason obesity Diagnosis 1 Obesity, unspecified (E66.9) Referral Organization [facility] Referring Provider First Name MOISES Referring Provider Last Name [facility] Referring Provider Specialty Internal Me tyrell Referred Provider Specialty Dietitian Referral Priority Routine General Notes Called pt to make an appt but was routed to ; TC x2 VITAL SIGNS from 1968 to 2022-08-17 Temperature 96.6 degrees Fahrenheit Aug, Heart Rate 57 /min Aug, Weight 128 lbs Aug, BMI 23.41 kg/m2 Aug, Height 5'2 in Aug, Oximetry 97 % Aug, Blood pressure systolic 106 mm Hg Aug, Blood pressure diastolic 68 mm Hg Aug, MEDICATIONS Medication SIG (Take, Route, Frequency, Duration) Notes Start Date End Date Status Trintellix 5 MG 1 tablet Orally Once a day Active TraZODone HCl ER 200mg ones a day Not-Taking Nurtec 75 MG 1 tablet on the tongue and allow to dissolve Orally Active Lunesta 1 MG 1 tablet immediately before bedtime Orally Once a day Not-Taking metFORMIN HCl ER 500 MG 1 tablet with evening meal Orally Once a day Not-Taking Dexilant 60 MG 1 capsule Orally Once a day Active Vortioxetine HBr 10 MG 1 tablet Orally Once a day Active Ozempic (0.25 or 0.5 MG/DOSE) 2 MG/1.5ML start at 0.25mg weekly for 4 weeks then increase to 0.5mg weekly Subcutaneous once a week for 30 days Feb, Active Famotidine 40 MG 1 tablet at bedtime Orally Once a day Active Ursodiol 250 MG 1 tablet with food Orally Twice a day Not-Taking Topamax 25 MG 1 tablet Orally 2 times a day for 30 day(s) May, Active Phentermine HCl 15 MG 1 capsule Orally Once a day for 30 days May, Not-Taking Vraylar 1.5 MG 1 capsule Orally Once a day Not-Taking Cetirizine HCl 10 MG 1 tablet Orally Onc e a day Active Gabapentin 100 MG 1 capsule Orally Once a day Active clonazePAM 1 MG 1 tablet Orally Once a day Active B12 Liquid Health Booster Active RESULTS from 1968 to 2022-08-17 REASON FOR VISIT No Information MEDICAL (GENERAL) HISTORY Type Description Date Medical History anxiety/depression, she sees a psychiatrist and Felecia Mcmahan therapist Medical History osteoarthritis Medical History migraine headaches Medical History insomnia Medical History GERD Medical History VILLA Medical History SBO and S/P Psoas abscess 2021 Medical History s/p bariatric surger y: dumping syndrome with hypoglycemia cannot tolerate more than 0.25mg ozempic Medical History osteoporosis followed by Rheum r eclast started fall 2020 Medical History Colon polyps: due Surgical History cholecystectomy Surgical History incisional hernia repair x2 Surgical History left ankle surgery 01/2021 Surgical History gastric bypass, revision in 2020 Surgical History lap band by Dr. Pate, removed in 2019 2007 Surgical History internal hernia/small bowel obs truction repair 09/2021 Surgical History 9.3 CM psoas abscess drainage 0 09/2021 Surgical History lumbar spine surgery MENTAL STATUS No Information ASSESSMENTS Encounter Date Diagnosis Assessment Notes Treatment Notes Treatment Clinical Notes Aug, Dietary counseling and surveillance (ICD-10 - Z71.3) Aug, Other obesity due to excess calories (ICD-10 - E66.09) May, Dietary counseling and surveillance (ICD-10 - Z71.3) May, Body mass index [BMI] 26.0-26.9, adult (ICD-10 - Z68.26) Apr, Body mass index [BMI] 26.0-26.9, adult (ICD-10 - Z68.26) Mar, Dietary counseling and surveillance (ICD-10 - Z71.3) Mar, Body mass index [BMI] 26.0-26.9, adult (ICD-10 - Z68.26) 15 Feb, 2022 Body mass index [BMI] 26.0-26.9, adult (ICD-10 - Z68.26) Feb, Dietary counseling and surveillance (ICD-10 - Z71.3) Feb, Body mass index [BMI] 26.0-26.9, adult (ICD-10 - Z68.26) Dec, Body mass index [BMI] 26.0-26.9, adult (ICD-10 - Z68.26) Dec, Dietary counseling and surveillance (ICD-10 - Z71.3) Oct, Body mass index [BMI] 29.0-29.9, adult (ICD-10 - Z68.29) Aug, Body mass index [BMI] 29.0-29.9, adult (ICD-10 - Z68.29) Aug, Body mass index [BMI] 29.0-29.9, adult (ICD-10 - Z68.29) Aug, Dietary counseling and surveillance (ICD-10 - Z71.3) Jun, Body mass index [BMI] 29.0-29.9, adult (ICD-10 - Z68.29) Jun, Dietary counseling and surveillance (ICD-10 - Z71.3) Jun, Body mass index (BMI) 30.0-30.9, adult (ICD-10 - Z68.30) Jun, Dietary counseling and surveillance (ICD-10 - Z71.3) Jun, Body mass index (BMI) 30.0-30.9, adult (ICD-10 - Z68.30) May, Dietary counseling and surveillance (ICD-10 - Z71.3) May, Body mass index (BMI) 30.0-30.9, adult (ICD-10 - Z68.30) May, Dietary counseling and surveillance (ICD-10 - Z71.3) May, Body mass index (BMI) 30.0-30.9, adult (ICD-10 - Z68.30) May, Gastro-esophageal reflux disease without esophagitis (ICD-10 - K21.9) May, Insomnia, unspecified (ICD-10 - G47.00) May, Migraine with aura, not intractable, without status migrainosus (ICD-10 - G43.109) May, Bariatric surgery status (ICD-10 - Z98.84) PLAN OF TREATMENT Future Test Test Name Order Date COMPREHENSIVE METABOLIC PANEL 55230361 LIPID PANEL 48016254 TSH 03378452 ZINC 99044213 MAGNESIUM 88775604 CBC (COMPLETE BLOOD COUNT) 79931835 IRON & TIBC 63801106 FERRITIN 11908742 25OH VITAMIN D 05588188 VITAMIN B12 95049125 METHYLMALONIC ACID, SERUM 40490133 COMPREHENSIVE METABOLIC PANEL 84355282 CBC (COMPLETE BLOOD COUNT) 12728808 TSH 30844382 ZINC 98329946 MAGNESIUM 48330071 COPPER 91332498 25OH VITAMIN D 14202505 IRON & TIBC 77674402 FERRITIN 03078841 Referrals Referral Date Details obesity Next Appt Details 4 Weeks Reason: Provider Name:MOISES COLBY , 2022-09-14 08:30:00 AM, [address], [place], [address], Insurance Providers Payer Name Payer Address Payer Phone Insured Name Patient Relationship to Insured Coverage Start Date Coverage End Date Subscriber Number Group Number [place] [employer] [address] [facility] [id number] Iona Cooper Self - patient is the insured [id number] [employer] Preferred [address] [facility] [address] Pauline munguiaIona Self - patient is the insured [id number] Medicare [address] [place] [address] [phone] Pauline munguiaIona Self - patient is the insured [id number]
--- OUTSIDE RECORDS SUMMARY | 2022-08-17 08:47 | XMS_ITS | Continuity of Care Document ---
Author Name Unknown Organization [facility] Address [address] [place] [address]- Care Team Providers Care Manager Sap Name Role Phone Sue Barillas NP Primary Care Physician Encounter [facility] Date(s): 04/17/20 - 04/24/20 [facility] Adult [address] [place] [address]- Encounter Diagnosis RUQ abdominal pain(Discharge Diagnosis) - 04/17/20 Attending Physician: Sue Barillas NP Allergies, Adverse [...] toxoids (Td) 08/03/05 Given 1Result Comment: [12/07/2017] [id number] 2Result Comment: [12/21/2016] [facility]: [id number] 3Result Comment: [06/10/2015] #3 4Admin Note: per [...] 03/18/20 10:49:00 EST, Route to Pharmacy Electronically, [facility], 160.02, cm, 03/18/20 7:48:00 [...] 60 capsule, 5 Refills, Maintenance, 12/26/19 12:06:00EDT, [facility], 160.02, cm, 12/02/19 6:45:00 [...] 0 Refills,Maintenance, 10/06/19 21:07:00 EDT, DIS Tablet, [facility] Start Date: 10/06/19 Stop Date: 10/09/19 Status: Ordered ProAir HFA 90 mcg/inh inhalation aerosol with adapter 2, puffs, Inhalation, Every 4 hours, PRN, # 8.5 Gm, Refills 2, Tot. Refills 2, Maintenance, 04/29/19 11:32:00 EST, Aerosol, Route to Pharmacy Electronically, [id number]_[id number], [facility], 160, cm, 04/29/19 10:47:00 EST, Height... Start Date: 04/29/19 Status: Ordered Readi-Cat 2 oral suspension See Instructions, drink as per radiology instructions prior to CT scan, # 2 each, 0 Refills, Maintenance, 04/23/20 9:57:00 EST, [facility] #[id number], Partial fill upon patient request if the prescription is for a schedule II opioid drug., drink... Start Date: 04/23/20 Status: Ordered Symbicort 160mcg/4.5mcg Inhaler 2, puffs, Inhalation, 2 times a day, use with spacer chamber, # 1 each, Refills 11, Tot. Refills 11, Maintenance, 07/08/19 13:36:00 EDT, Route to Pharmacy Electronically, [id number]_[id number], [facility], 160, cm, 07/08/19 13:03:00 [...] tablet, 0 Refills, Maintenance, 09/30/19 11:23:00 EDT, [facility], 160.02, cm, 09/24/19 15:31:00 [...] perst 3folowed by mental health;recent hospitalization 4gyn 07370 6testing negative insulinoma 7likley dumping sydrome 8abnormal GTT ;sugar 36 two hours into test 9sees gi 10normal CT brain 11new 125.3 cm,right per ct scan recent;seeing gynecology soon;they will review 13vit d deficiency;correct 132725 15per endocrinology monitor 16correction refer GTT; 2 hour glucose 36 17refer GGT 18seeing ortho;pre op 19asma,ama neg/cerulopalsmain wnl,AAT wnl 20Negative hep A antibody positive hep B surface antibody negative antigen negative hep C, normal ferritin 21ukltrasound Diagnosis Diagnosis Type Effective Dates Health Status Cl inical Service Informant RUQ abdominal pain Discharge Diagnosis 04/17/20 Vital Signs Most recent to oldest [Reference Range]: 1 Height 160.02 cm (04/17/20 9:58 AM) Weight 79.2 kg (04/17/20 9:58 AM) Oxygen Saturation [94-100 %] 98 % (04/17/20 9:58 AM) Pulse Rate [55-90 bpm] 61 bpm (04/17/20 9:58 AM) Body Mass Index [18.5-24.99] 30.93 *>HHI* (04/17/20 9:58 AM) Blood Pressure [90-138/55-84 mm Hg] 102/ 62mm Hg (04/17/20 9:58 AM) Respiratory Rate [16-30 br/min] 12 br/mi n *L* (04/17/20 9:58 AM) Temperature [96.8-100.4 DegF] 97.8 DegF (04/17/20 9:58 AM) Mode of Delivery (Oxygen) Room air (04/17/20 9:58 AM) Blood pressure sites Arm, right (04/17/20 9:58 AM) Temperature Route Oral (04/17/20 9:58 AM) Weight Obtained Via Standing scale (04/17/20 9:58 AM) Social History Social History Type Response Smoking Status Never smoker entered on: 02/20/13 Sex
[2022-08-17] MEDS: Aprepitant 32 MG/4.4 ML VIAL IVPUSH (08:56)
[2022-08-17] MEDS: Lactated Ringers 1,000 ML 999 ML IV (08:56)
--- NOTE | 2022-08-17 09:43 | PC.NURSE ---
patient markie being diabetic. states she gets hypoglycemia. patient states she started to have a headache and right eye complaint. feels puffy and these are her syptoms for hypoglycemia. poc 61. md canas aware. hung d5 250ml.
--- NOTE | 2022-08-17 09:47 | PC.NURSE ---
patient stating the right eye puffy feeling tingling is going away. feeling better but has the headache. denies blurry eye vision.
--- NOTE | 2022-08-17 10:08 | P.BOP_ITS ---
Brief Operative Note Date of Service: 08/17/22 Pre-op diagnosis: Severe GERD, food intolerance, diaphragmatic hernia, nausea/vomiting Post-op diagnosis: same (extensive abdominal adhesions) Procedure: PROCEDURE: Jlhmqxbj-tneexp-hcazmojjqbw, laparoscopic repair of incarcerated diaphragmatic hernia, laparoscopic lysis of adhesions and laparoscopic sleeve gastrectomy INDICATIONS: This is a 52 year-old female with a BMI of 24.6 kg/m2, history of open gastric bypass surgery on 10/23/[address] Martins at [facility] followed by a lap band placement on top of the bypass by Dr. Nunes on 12/27/2007. This band was removed by ar approximately 2 years ago due to gastric outlet obstruction. At the time it was not possible to repair the diaphragmatic hernia due to severe inflammation and adhesions.at the area of the lap band. Since then the patient was seen at [facility] by Dr. Costello where she had an umbilical hernia repair on top of a pre-existing laparoscopic ventral hernia repair with mesh and subsequently for an internal hernia repair. Following this operation she developed an intra-abdominal abscess for which she underwent percutaneous CT- guided drainage at [facility] with subsequent resolution of it. The patient returned to ar for severe GERD, nausea/vomiting and substantial unintentional weight loss. An effort to control her symptoms with non-surgical dietary intervention failed and the patient would like me to try and repair the hernia understanding the risks involved as well as the possibility of not being able to complete the procedure, as her quality of life is very poor. The patient was electively scheduled for laparoscopic, possibly open diaphragmatic hernia repair. The risks and complications of the procedure were discussed with the patient in advance, particularly the possibility of ; pulmonary embolism; staple line leak; bleeding; GERD; cardiac, pulmonary, or renal complications; as well as long-term problems such as insufficient weight loss, vitamin deficiency, strictures, or ulcers. The patient understood all the risks, and was in agreement to proceed with surgery. DESCRIPTION OF PROCEDURE: After informed consent was obtained from the patient, the patient was given preoperative antibiotics, and was transferred to the operating room. After successful induction of general anesthesia, a Klein catheter and pneumatic compressive devices were placed on both lower extremities. An upper endoscopy was performed next. The oropharynx and esophagus appeared to be within normal limits. There was a diaphragmatic hernia present of moderate size consistent with the findings of the preoperative upper GI. The stomach was entered. Then after all fluid and air were suctioned and the stomach was fully decompressed, the scope was withdrawn and secured in the mid esophagus. The patient was then prepped and draped in the usual sterile manner, and abdominal access was established at the right upper quadrant with the Karla technique. A 12 mm blunt port was inserted, and the abdomen was insufflated with CO2 to a pressure of 15 mmHg. Under direct visualization, additional ports were placed, specifically a 5 mm Versi step port to the left of the umbilicus and two 5 mm Versi step ports to the right mid-axillary line below the costal margin and at mid-abdomen. There were dense adhesions between the omentum, the colon and the mesh. Tedious and extensive lysis of adhesions was required using the Thunderbeat. Once the adhesions were freed two 5 mm Versi-step ports were placed to the left upper quadrant, and a 5 mm Versi-Step port to the right upper quadrant. 1% lidocaine plan was used to infiltrate all port sites as well as all fascia defects. Following that, the patient was placed in a steep reverse Trendelenburg position. The Mediflex retractor that was used to retract the left lobe of the liver. There were dense adhesions between the undersurface of the left lobe of the liver and the gastric pouch which were lysed with the Thunderbeat. Once this was done the liver retractor was re-positioned to get exposure to the hiatal area. Some omental fat overlying the Asa limb was mobilized and the gastro- jejunostomy was identified. There was a large diaphragmatic hernia with the entire gastric pouch contained into the hernia. There was an obvious significant-sized hiatal hernia. I continued dissecting along the hiatus toward the right mahnaz.I mobilized the gastric pouch from the right mahnaz and I continued the dissection into the mediastinum. Posterior dissection towards the aorta was also performed. The base of the left mahnaz was visualized and I was able to dissect the base of the left mahnaz and the angle of His. Then I continued the dissection anteriorly. The left mahnaz was identified and the gastric pouch was from the left mahnaz all the way to its base. The hernia was that large that the gastric remnant was pulled near the herniaa nd the diaphragm. The remnant was mobilized from the diaphragm. Circumferential dissection continued into the mediastinum all the way to the mid-chest. This allowed the gastric pouch to be delivered back in the abdomen. At that point it was clear that the previous band was not placed at the GE junction but at the mid-pouch. The prev ious surgeon possibly did not recognize the presence of the large diaphragmatic hernia. Some redundancy was noted at the proximal fundus of the pouch but I chose not to resect it as the patient has a normal BMI. I closed the hernia defect with five interrupted #0 Surgidac sutures using the Endo Stitch device, two which were placed anterior and three posterior to the esophagus. ? A gastropexy was performed and the the gastric pouch was re-attached to the greater omentum with several #2.0 Polysorb sutures in order to keep the pouch in the abdomen. ?An upper endoscopy was performed. There was no narrowing at the GE junction. The scope was easily advanced all the way to the Asa limb which was clearly visualized. There was no narrowing anywhere. At that point the gastroscope was withdrawn from the patient?s mouth while we were decompressing the bowel and the stomach from any remaining air. There was no bleeding from the spleen, or short gastric vessels or the other areas we lysed adhesions. The Mediflex retractor was removed, and the undersurface of the liver was inspected and there was no bleeding. The patient was placed in supine position. I closed the fascial defect of the 12 mm port site with a figure of eight #1 Polysorb suture. Then 30 cc Ropivacaine plain with 10 mg of Dexamethasone were used to infiltrate the fascial closure as well as all skin incisions. A total of 4ml of Zynrelef was applied in the Karla wound. At this point, the abdomen was deflated, all ports were removed under direct vision, and no bleeding was noted from any of the port sites. The skin incisions were irrigated with saline and were closed with 4-0 absorbable monofilament sutures. Steri-Strips and OpSites were used to cover all incisions. The patient was extubated and was transferred in stable condition to the recovery room for further care. I was present and performed all hearn parts of the procedure. Ms. Hennessy was the tourist information assistant. There were no residents to assist with this case. Ajay Mullen MD, PhD, FACS Surgeon: Tobin Mullen MD Anesthesia: GETA, local and other (TAP block and 4ml Zynrelef) Was an Cement Block Maker used for this Procedure?: Yes Cement Block Maker: Chula Hennessy Estimated blood loss (mL): 10 IV fluids (mL): 2,800 Urine output (mL): 520 Pathology: none sent Condition: stable Disposition: PACU
[2022-08-17 10:16] LABS: Glucose, Whole Blood 61 mg/dL (60-115)
[2022-08-17 10:16] LABS: Glucose, Whole Blood 113 mg/dL (60-115)
--- NOTE | 2022-08-17 10:17 | PM.PNGS ---
Subjective Subjective Date of Service: 08/18/22 Interval history: Feels well. Mild incisional pain. She is tolerating phase 1 bariatric diet Physical Exam Vital Signs: Vital Signs: Last Vital Signs Pulse 75 08/10/22 11:59 Resp 16 08/10/22 11:59 BP 120/75 08/10/22 11:59 Pulse Ox 98 08/10/22 11:59 O2 Del Method Room Air 08/10/22 11:59 BMI result Body Mass Index 23.2 GI: Inspection: Yes normal to inspection and Yes incision (clean, dry and intact) Palpation (GI): Soft to palpation Extrem: Right lower extremity: normal to inspection (no calf tenderness) Left lower extremity: normal to inspection (no calf tenderness) Objective Data Active Medications Albuterol Sulfate (Albuterol Sulfate (0.083%) 2.5 Mg/3 Ml Vial.Neb) 2.5 mg INHALE ONCE PRN PRN Reason: Shortness of Breath/Wheezing Fentanyl (Fentanyl Citrate/Pf 100 Mcg/2 Ml Vial) 50 mcg IVPUSH Q5M PRN; Protocol PRN Reason: Pain, Severe (Pain Scale 7-10) Lactated Ringer's (Lr) 1,000 mls @ 100 mls/hr IVCONT .Q10H LIZZ Ondansetron HCl (Ondansetron Hcl 4 Mg/2 Ml Vial) 4 mg IVPUSH ONCE PRN PRN Reason: Nausea and Vomiting Oxycodone HCl (Oxycodone Hcl Immed Release 5 Mg Tablet) 5 mg PO ONCE PRN PRN Reason: Pain, Severe (Pain Scale 7-10) Labs 08/17/22 15:52 08/17/22 15:52 Labs: Laboratory Results - last 24 hr 08/16/22 08/17/22 08/17/22 12:05 09:35 10:06 POC Glucose 61 113 COVID-19 (TIN) Negative COVID-19 Clin Com See Note Procedures Date of Service Date of Service: 08/18/22 Progress Note: A&P Assessment and plan (1) Diaphragmatic hernia: Status: Acute Assessment and Plan: s/p laparoscopic lysis of adhesions, diaphragmatic hernia repair and gastropexy Doing well Will check am labs and if OK the patient will be discharged home (2) GERD (gastroesophageal reflux disease): Status: Acute (3) Esophagitis: Status: Acute (4) Vomiting: Status: Acute (5) Intestinal malabsorption: Status: Acute (6) Weight loss, non-intentional: Status: Acute (7) Depression: Status: Acute (8) Asthma: Status: Acute (9) Anxiety: Status: Acute (10) Migraines: Status: Acute (11) Intra-abdominal adhesions: Status: Acute (12) S/P repair of paraesophageal hernia: Status: Acute Time Spent With Patient Time: Total time managing care of this patient today ____ minutes. Quality Stroke Does the patient have a stroke diagnosis?: No VTE Prior VTE?: No VTE Risk Level:: Surgical - moderate VTE Device Contraindication: N/A - Device Ordered VTE Drug Contraindication: Treatment Not Indicated
[2022-08-17 16:02] LABS: Hematocrit 42.6 % (37.0-47.0); Hemoglobin 13.5 g/dl (12.0-16.0)
[2022-08-17] MEDS: Famotidine/PF 20 MG/2 ML VIAL IVPUSH ×2 (16:12→20:13)
[2022-08-17 16:13] LABS: Anion Gap 13 (12-20); Blood Urea Nitrogen 9 mg/dL (9-16); Calcium 8.8 mg/dL (8.4-10.2); Carbon Dioxide 22 mmol/L (22-29); Chloride 110 mmol/L (96-108); Creatinine Clr Calc Pharmacy 73.7; Estimated Glomerular Filt Rate > 60; Glucose Random 150 mg/dL (60-115); Potassium 3.7 mmol/L (3.3-5.1); Sodium 141 mmol/L (135-145)
[2022-08-17] MEDS: ceFAZolin Sodium/Dextrose,Iso 2 GM/50 ML PIGGYBACK IV (16:14)
[2022-08-17] MEDS: Lactated Ringers 1,000 ML 100 ML IVCONT (16:20)
[2022-08-17] MEDS: 0.9 % Sodium Chloride Flush 3 ML SYRINGE IVFLUSH ×2 (16:20→20:13)
[2022-08-17] MEDS: Acetaminophen 1,000 MG/100 ML PIGGYBACK 400 MG IV (18:13)
--- NOTE | 2022-08-17 18:13 | PC.RT ---
RT in to assess patient for mucomyst nebulizer order. LS are clear/dim R side, absent CHRISTOPH with subQ crackles noted L chest. Pt is awake and coop, c/o pain on deep breath and cough. CXR indicates clear R side with L side moderate pneumothorax combined with sub Q emphysema. Discussion with RN, mucomyst can increase cough and possibly cause bronchospasm which may exacerbate PTX. RN aware, PA elder texted.
[2022-08-17] MEDS: HYDROmorphone HCl 0.5 MG/0.5 ML SYRINGE 0.25 MG IVPUSH (20:12)
[2022-08-17] MEDS: Montelukast Sodium 10 MG TABLET PO (21:45)
[2022-08-18] MEDS: Acetaminophen 1,000 MG/100 ML PIGGYBACK 400 MG IV (00:10)
[2022-08-18] MEDS: Lactated Ringers 1,000 ML 100 ML IVCONT (02:47)
[2022-08-18 03:12] VITALS: BP 106/59; PULSE 56; RESP 18; TEMP 36.6; O2SAT 100
[2022-08-18 06:24] LABS: MANUAL DIFF FLAG NO
[2022-08-18 06:38] LABS: Basophils Percent Auto 0.2 % (0-2); Hematocrit 37.2 % (37.0-47.0); Hemoglobin 12.1 g/dl (12.0-16.0); Imm Gran Abs Auto 0.06 X10*3/uL (0.00-0.03); Imm Gran Pct Auto 0.5 % (0.0-0.4); Lymphocytes Absolute Auto 1.1 X10*3/uL (1.2-4.9); Lymphocytes Percent Auto 9.7 % (20-40); Mean Corpuscular HGB Conc 32.5 g/dl (31.0-35.0); Mean Corpuscular Hemoglobin 29.7 pg (27.0-33.0); Mean Corpuscular Volume 91.4 fL (80.0-98.0); Mean Platelet Volume 11.3 fL (9.4-12.3); Monocytes Absolute Auto 0.8 X10*3/uL (0.1-1.2); Monocytes Percent Auto 7.3 % (2-11); Neutrophils Percent Auto 82.3 % (45-73); Platelet Count 231 X10*3/uL (160-400); Red Blood Count 4.07 X10*6/uL (4.20-5.50); Red Cell Distribution Width 13.8 % (11.0-16.0)
[2022-08-18 07:08] LABS: Anion Gap 11 (12-20); Blood Urea Nitrogen 8 mg/dL (9-16); Calcium 8.6 mg/dL (8.4-10.2); Carbon Dioxide 26 mmol/L (22-29); Chloride 105 mmol/L (96-108); Creatinine Clr Calc Pharmacy 92.5; Estimated Glomerular Filt Rate > 60; Glucose Random 98 mg/dL (60-115); Potassium 4.2 mmol/L (3.3-5.1); Sodium 138 mmol/L (135-145)
[2022-08-18 07:10] VITALS: BP 124/73; PULSE 89; RESP 20; TEMP 36.6; O2SAT 100
[2022-08-18] MEDS: Famotidine/PF 20 MG/2 ML VIAL IVPUSH (07:33)
[2022-08-18] MEDS: Albuterol Sulfate (0.083%) 2.5 MG/3 ML VIAL.NEB INHALE (07:44)
[2022-08-18] MEDS: Acetylcysteine 10 % 400 MG/4 ML VIAL INHALE (07:44)
[2022-08-18] MEDS: Fluticasone/Vilanterol 200/25 BLST.W.DEV 1 PUFF INHALE (07:44)
[2022-08-18 07:46] VITALS: PULSE 76; RESP 20; O2SAT 100
--- NOTE | 2022-08-18 09:28 | PHA.MEDREC ---
Pharmacy Consult ? Medication Reconciliation Pharmacy has completed the medication reconciliation. There was a few discrepancies with the med rec done by RN and patients pharmacy claims. Went up to speak to patient and she confirmed the RN had done it correctly.
--- NOTE | 2022-08-18 09:28 | MHC.CM.PN ---
IMM DELIVERED PT LIVES ALONE IN AN APT. INDEPENDENT AT BASELINE. + COVID VAX 3 +HCP AT HOME, WILL BRING IN A COPY TO MD OFFICE ON F/U. PCP [facility] [employer] DP: HOME, NO SERVICES ANTICIPATED. SISTER IN LAW WILL TRANSPORT HOME. CM WILL CONTINUE TO FOLLOW FOR DC NEEDS/CHANGES IN PLAN.
--- NOTE | 2022-08-18 10:22 | MHC.CM.PN ---
DP: PT HAS BEEN MEDICALLY CLEARED FOR DC HOME, NO SERVICES. [facility] WILL TRANSPORT HOME.
--- NOTE | 2022-08-18 12:30 | PM.DS ---
DS: Providers Provider Date of Service: 08/18/22 Date of admission: 08/17/22 08:14 Primary care physician: Sue Barillas NP DS: Diagnosis Discharge Diagnosis (1) Diaphragmatic hernia: Status: Acute (2) GERD (gastroesophageal reflux disease): Status: Acute (3) Esophagitis: Status: Acute (4) Vomiting: Status: Acute (5) Intestinal malabsorption: Status: Acute (6) Weight loss, non-intentional: Status: Acute (7) Depression: Status: Acute (8) Asthma: Status: Acute (9) Anxiety: Status: Acute (10) Migraines: Status: Acute (11) Intra-abdominal adhesions: Status: Acute (12) S/P repair of paraesophageal hernia: Status: Acute DS: Summary Hospital Course Hospital Course: ADMITTING DIAGNOSIS: severe GERD and emesis DISCHARGE DIAGNOSIS: same, s/p repair diaphragmatic hernia PAST SURGICAL HISTORY: GBP, gastric band x 2, s/p paraesophageal hernia repair . PROCEDURE: upper endoscopy and repair of diaphragmatic hernia hernia DISCHARGE SUMMARY: History of Present Illness: The patient is a 52 year-old woman with a BMI of 24.5 kg/m2 and associated co-morbidities as described above. The patient had extensive work-up and was electively scheduled for laparoscopic, possible open repair of recurrent paraesophageal hernia s/p GBP. Risks and complications of the surgery were discussed with the patient in advance, particularly the possibility of , pulmonary embolism, anastomotic leak, bleeding, bowel injury, GERD, cardiac, renal or pulmonary complications. The patient understood all the risks and was in agreement with the surgical plan. Hospital Course: The patient underwent a repair of diaphragmatic hernia with inadvertne entry into the pleural space on the day of admission. STAT CXR in PACU revealed left pneumothorox, but patients remained asymptomatic and VSS. Postoperatively, the patient was transferred to the surgical floor. The patient received IV Acetaminophen and IV dilaudid for pain control. Patient was started on bariatric phase 1 diet POD #0. On postoperative day one, the patient was feeling well without nausea, vomiting, fevers, or tachycardia. The patient had some mild incisional pain and the abdomen was soft. On the morning of postoperative day one, the patient had a repeat CXR which showed improvment of the pneumpthorax, she remained asymptomatic with stable VS. She was continued on 1 ounce of water or ice every half hour. During the day, the patient did fairly well, having some incisional pain, but able to ambulate adequately and to tolerate liquids well. Since the patient is doing well, we decided that the patient was ready to be discharged. The patient was given instructions to follow-up with me next week and to call my office for any fever over 101, persistent abdominal pain, nausea, vomiting, GERD, symptoms of DVT such as calf tenderness, or leg swelling, or pulmonary embolism such as chest pain or shortness of breath. The patient was also instructed to drink 40-60 ounces of liquids per day using the 1-ounce cups. The patient had been given prescriptions for Tylenol for pain, Zofran prn for nausea, and pantoprazole and carafate previously. The patient was encouraged to ambulate and use the incentive spirometer. The patient was allowed to shower, but no baths, and encouraged to stay active at home. All of these instructions were given to the patient personally. All questions were answered and the patient understood all instructions, the instructions were also given to the patient in print. Time Spent with Patient Time attestation: Total time managing care of this patient today ____ minutes. Discharge coordination time: Less than 30 minutes Quality: Safe Use of Opioids Does Pt have an Active Cancer Diagnosis on the Problem List?: No Quality: Stroke Does the patient have a stroke diagnosis?: No Physical Exam Vital Signs: Vital Signs: Last Vital Signs Temp 97.8 F 08/18/22 07:10 Pulse 76 08/18/22 07:46 Resp 20 08/18/22 07:46 BP 124/73 08/18/22 07:10 Pulse Ox 100 08/18/22 07:10 O2 Del Method Room Air 08/18/22 08:47 O2 Flow Rate 2 08/17/22 23:31 BMI result Body Mass Index 23.2 DS: Data Data Completed and Pending Completed studies during hospitalization [Text1]: Procedures Release Peritoneum, Percutaneous Endoscopic Approach (02/11/20) Removal of Extraluminal Device from Stomach, Percutaneous Endoscopic Approach (02/11/20) Labs on day of discharge: Laboratory Results - last 24 hr 08/17/22 08/17/22 08/18/22 15:52 15:52 05:25 WBC 11.0 H RBC 4.07 L Hgb 13.5 12.1 Hct 42.6 37.2 MCV 91.4 MCH 29.7 MCHC 32.5 RDW 13.8 Plt Count 231 D MPV 11.3 Immature Gran % (Auto) 0.5 H Neut % (Auto) 82.3 H Lymph % (Auto) 9.7 L [place] % (Auto) 7.3 Eos % (Auto) 0.0 Baso % (Auto) 0.2 Lymph # (Auto) 1.1 L [place] # (Auto) 0.8 Eos # (Auto) 0.0 Baso # (Auto) 0.0 Abs Immat Gran (auto) 0.06 H Absolute Neuts (auto) 9.0 H Absolute Nucleated RBC 0.000 Nucleated RBC % (auto) 0.0 Sodium 141 Potassium 3.7 Chloride 110 H Carbon Dioxide 22 Anion Gap 13 BUN 9 Creatinine 0.69 Estim Creat Clear Calc 73.7 Estimated GFR > 60 Random Glucose 150 H Calcium 8.8 08/18/22 05:25 WBC RBC Hgb Hct MCV MCH MCHC RDW Plt Count MPV Immature Gran % (Auto) Neut % (Auto) Lymph % (Auto) [place] % (Auto) Eos % (Auto) Baso % (Auto) Lymph # (Auto) [place] # (Auto) Eos # (Auto) Baso # (Auto) Abs Immat Gran (auto) Absolute Neuts (auto) Absolute Nucleated RBC Nucleated RBC % (auto) Sodium 138 Potassium 4.2 Chloride 105 Carbon Dioxide 26 Anion Gap 11 L BUN 8 L Creatinine 0.55 Estim Creat Clear Calc 92.5 Estimated GFR > 60 Random Glucose 98 Calcium 8.6 Discharge Plan Discharge Anticipated Discharge Date/Time: 08/18/22 10:02 Patient Disposition: Home, Self-Care Discharge Diagnosis: stable , post op paraesophageal hernia repaire Referrals: Sue Barillas [employer] [Primary Care Provider] - 1 Week Discharge Medications: Continued acetaminophen 160 mg/5 mL (5 mL) solution 500 mg PO Q6H PRN (Reason: fever or pain) Qty: 500 0RF cetirizine 10 mg tablet 10 mg PO DAILY sucralfate 100 mg/mL suspension 10 ml PO QID cyanocobalamin (vitamin B-12) 1,000 mcg/mL solution 1,000 mcg subcut QMONTH Trintellix 20 mg tablet 20 mg PO DAILY Nurtec ODT 75 mg tablet,disintegrating 75 mg PO DAILY PRN (Reason: Migraine Headache) multivitamin Tablet 1 tab PO DAILY cholecalciferol (vitamin D3) [Vitamin D3] 25 mcg (1,000 unit) Capsule 25 mcg PO DAILY calcium 500 mg PO BID budesonide-formoterol [Symbicort] 160-4.5 mcg/actuation HFA aerosol inhaler 2 puff INHALATION BID dexlansoprazole 60 mg capsule,biphase delayed releas 60 mg PO BID clonazepam 1 mg tablet 1 mg PO BEDTIME montelukast 10 mg tablet 10 mg PO BEDTIME albuterol sulfate 90 mcg/actuation HFA aerosol inhaler 2 puff inhalation QID PRN (Reason: wheezing) ondansetron 4 mg tablet,disintegrating 4 mg PO Q12H Qty: 20 0RF Rx Instructions: Only take one every 12 hours as needed if you have nausea Held gabapentin 100 mg capsule 100 - 200 mg PO BEDTIME PRN (Reason: Insomnia) Hold Instructions: Resume on 09/01/22. Emgality Pen 120 mg/mL pen injector 120 mg subcut QMONTH Hold Instructions: Resume on 09/16/22. famotidine 40 mg tablet 40 mg BID Hold Instructions: Discuss with Dr Mullen Discontinued ondansetron HCl [Zofran] 4 mg tablet 4 mg PO Q6H PRN (Reason: nausea and vomiting) Qty: 30 0RF No Action (DME) blood sugar diagnostic Strip See Rx Instructions Not Applicable TID Qty: 10 Rx Instructions: As directed (DME) lancets 33 gauge misc See Rx Instructions Not Applicable .MEDSUPPLY Qty: 100 Rx Instructions: As directed Discharge Orders: Discharge Order (Routine); Ordered 08/18/22 Ordered By: Tobin Mullen Activity on Discharge: No heavy lifting Stand Alone Forms: Patient Portal Discharge page Care Plan Goals: symptom control Health Concerns: GERD and vomiting Plan of Treatment: No tub baths, sex or returning to work until discussed at first post op appointment. No exercise, alcohol, tobacco or illegal drug use. Continue to use incentive spirometer hourly while awake. Walk in home for 5- 10 minutes every 2 hours during the first week. Continue phase 1 diet today and start phase 2 diet tomorrow morning. Follow all instructions in the bariatric handbook and call with any questions. 1. Please call your doctor or come back to the emergency room should any new symptoms arise. 2. You will receive a courtesy call from [facility] 24-48 hours after discharge. 3. Activity: abstain from alcohol, practice limited stair climbing, no bending, no driving, no exercise, no illicit substances, no lifting, no sex, no tub bath, no work. 4. Diet: continue as discussed with bariatric team.. 5. Dressing Change/Wound Care: Do not change or remove surgical dressings unless they are wet or soiled. 6. Call your doctor if: - Your temperature exceeds 101.5 F - You experience excessive pain or swelling - You have an unexpected reaction to medication - You have excessive bleeding - You experience continued vomiting/nausea - Your incision begins to separate - Your incision shows signs of infection such as increased redness, swelling, excessive pain, heat, or drainage (light blood or clear fluid is normal) 7. General instructions: No lifting greater than 5 lbs for the next 4 weeks[address] within 24 hours of taking narcotic pain medications. If you do not move your bowels in the next 2 days, please take milk of magnesia over the counter. Please follow the post op diet and do not advance your diet until you are seen in the office in about 2 weeks. Please walk around your home every hour or two to prevent blood clots from forming in your legs. You do not need to wake from sleeping to walk. Please sleep in a bed or couch to prevent kinking at the hips and knees. Please take your incentive spirometer (your lung housekeeping/laundry) home with you and use it for the next few days to prevent pneumonias. You may shower, no hot tubs, baths or swimming pools. Please call the office with any questions or concerns such as increasing abdominal pain, fever, chills, shortness of breath, chest pain, leg pain or swelling, or redness or drainage from your incisions. Do not hesitate to contact the office with any questions at . The patient's medical history has been reviewed and they are considered low risk for post op DVT and therefore DVT prophylaxis is not considered necessary. Travel after surgery was reviewed. The patient has not disclosed any travel plans during the first 30 days after surgery and they have been advised that within the first 30 days after surgery any bus, plane, train or car travel over 2 hours in duration is contraindicated due to the possibility of developing blood clots from immobility. Any travel, needs to include periods of ambulation of 10 minutes in duration every 2 hours. The patient was instructed to discuss any plans for travel during this period with their bariatric surgeon. Assessment: stable, pos top paraesophaela hernia repair Discharge Date/Time: 08/18/22 10:43
--- NOTE | 2022-08-18 14:16 | HO.POSTANES ---
Post Anesthesia Evaluation Post Anesthesia Evaluation Date of Service: 08/18/22 Vital Signs: Vital Signs Temp Pulse Resp BP Pulse Ox O2 Del Method 08/18/22 08:47 Room Air 08/18/22 07:46 76 20 08/18/22 07:10 97.8 F 89 20 124/73 100 Room Air 08/18/22 03:12 97.9 F 56 18 106/59 L 100 Room Air Anesthesia: General Endotracheal-GETA Mental Status: Awake Pain Control: Satisfactory Nausea/Vomiting: None Hydration: Adequate Anesthesia-Related Issues: No Anes. Related Issues
== END 2022-08-18 10:43 | disposition home or self-care (01) | DRG 327 ==
LOC: HO.SSSA 08:15 → HO.S3 15:01
PROVIDERS: Physician Assistant; Physician Assistant Surgical; Admitting Provider Surgery; PCP Nurse Practitioner Family; Visit Provider Surgery
PROC: 0BQT4ZZ Repair Diaphragm, Percutaneous Endoscopic Approach (ICD-10-PCS; principal; 2022-08-17 10:10)
DX: K44.0 Diaphragmatic hernia with obstruction, without gangrene (principal); F33.9 Major depressive disorder, recurrent, unspecified; K90.49 Malabsorption due to intolerance, not elsewhere classified; K21.00 Gastro-esophageal reflux disease with esophagitis, without bleeding; G43.909 Migraine, unspecified, not intractable, without status migrainosus; F41.9 Anxiety disorder, unspecified; K66.0 Peritoneal adhesions (postprocedural) (postinfection); J45.909 Unspecified asthma, uncomplicated; Z20.822 Contact with and (suspected) exposure to COVID-19; Z79.899 Other long term (current) drug therapy
CPT/HCPCS: 36415; 71045; 71046; 80048; 82947; 85014; 85018; 85025; 86850; 86900; 86901; 87635; 93005; 94664; A4649; C9088; C9145; J0131; J0690; J1100; J1170; J2250; J2370; J2405; J2795; J3010

== ENCOUNTER → 2022-08-22 10:41 | Outpatient (BNVA) | payer MEDICARE, SELFPAY | PROVIDERS: PCP Internal Medicine; Visit Provider Surgery ==

== ENCOUNTER 2022-10-10 07:50 | Outpatient (AMB) | payer MEDICARE, SELFPAY ==
--- NOTE | 2022-10-10 10:14 | A.OFFVIS_ITS ---
Intake VS Expanded 10/10/22 10:21 Height 5 ft 2 in Weight 130 lb 2 oz BMI 23.8 Body Fat 25.3 Body Fat Percentage 19.5 Free Fat Mass 104.8 Visceral Mass 6 Water Mass 71.8 BMR 1,397 Intake Visit Reasons: TV 2MO PO Diaphragmatic Hernia 08/17/22 Allergies No Known Allergies Allergy (Unknown, Verified 08/22/22 10:49) HPI HPI Comments History of Present Illness Details Has gained some weight recently and she is concerned All preop symptoms have resolved and feeld much better Is doing one Celebrate shake (1 scoop in almond milk), scrambled eggs for lunch, and dinner (3-4 forkfuls) Exercise: none PFSH Medical History (Updated 08/26/22 @ 00:02 by Stan Catherine) Anxiety Asthma Depression Gastric band slippage GERD (gastroesophageal reflux disease) Hx of small bowel obstruction Hypoglycemia Intestinal malabsorption Major depressive disorder, recurrent severe without psychotic features Malabsorption due to intolerance, not elsewhere classified Migraines Seasonal allergies Weight loss, non-intentional Surgical History H/O sinus surgery History of esophagogastroduodenoscopy (EGD) History of removal of laparoscopic gastric banding device History of Asa-en-Y gastric bypass Hx laparoscopic cholecystectomy Hx of hernia repair Hx of laparoscopic gastric banding Overweight (BMI 25.0-29.9) Previous back surgery S/P rotator cuff surgery S/P wrist surgery Status post gastric banding Family History Father DM (diabetes mellitus) Heart disease Mother DM (diabetes mellitus) Heart disease Pulmonary hypertension Brother DM (diabetes mellitus) Heart disease Kidney disease Brother HTN (hypertension) DM (diabetes mellitus) High cholesterol Social History Household Members: None Housing: House Are you a primary post acute care nurse practitioner to a significant other at home: No Do you presently have visiting nurse or other home services: No Alcohol intake: former Patient Tobacco Use Status: Never used Tobacco Second Hand Smoke Exposure: No service: No Current occupational status: disabled Assessment & Plan Assessment & Plan (1) S/P repair of paraesophageal hernia: Code(s): Z98.890 - Other specified postprocedural states; Z87.19 - Personal history of o ther diseases of the digestive system (2) Intestinal malabsorption: Code(s): K90.9 - Intestinal malabsorption, unspecified Plan: 1. Change nutritional plan to one Celebrate shake (1 scoop in 8oz almond milk) at 8am-10am, one Zone Perfect protein bar at 11am-1pm, lunch at 2pm (3 forkfuls of protein and 3 forkfuls of salad or vegetables), dinner at 5pm (3 forkfuls of protein and 3 forkfuls of salad or vegetables) and a Zone Perfect protein bar at 7.30pm-9.30pm 2. Start one Celebrate vitamin per day 3. Start Gym daily doing the stationary bike for 300 calories per day, daily 4. Let me know if there is any symptom recurrence with new plan or you still feel hungry Telehealth Telehealth Location of provider rendering services: practice address Location of patient: address on file Patient Identification confirmed using: Name, : Yes Telehealth method: voice only Patient verbally consented to treatment: Yes Patient verbally consented to billing insurance company: Yes Patient informed of any privacy concerns related to visit: Yes Minutes spent on Phone/Video with Pt.: 20 Coding Level of Care Code Global (81480) Diagnoses S/P repair of paraesophageal hernia Z98.890; Z87.19 Intestinal malabsorption K90.9
[2022-10-10 10:21] VITALS: BMI 23.8
== END 2022-10-10 10:31 | disposition home or self-care (01) ==
LOC: HO.HBS 07:50
PROVIDERS: PCP Internal Medicine; Visit Provider Surgery
DX: K44.0 Diaphragmatic hernia with obstruction, without gangrene (principal); Z48.89 Encounter for other specified surgical aftercare
CPT/HCPCS: 99024

== ENCOUNTER → 2022-10-10 07:50 | Outpatient (BNVA) | payer MEDICARE, SELFPAY | PROVIDERS: PCP Internal Medicine; Visit Provider Surgery ==

== ENCOUNTER → 2022-11-03 09:12 | Outpatient (BNVA) | payer MEDICARE, SELFPAY | PROVIDERS: PCP Internal Medicine; Visit Provider Dietitian, Registered | DX: E66.9 Obesity, unspecified (principal); Z71.3 Dietary counseling and surveillance | CPT/HCPCS: 97803 ==

== ENCOUNTER 2022-11-08 06:57 | Outpatient (REF) | payer MEDICARE, SELFPAY ==
[2022-11-08 14:41] LABS: Iron 37 mcg/dL (30-160); Percent Iron Saturation 12 % (15-50); Total Iron Binding Capacity 315 mcg/dL (228-428); Unsaturated Iron Binding 278 ug/dL
[2022-11-08 15:02] LABS: Ferritin 23 ng/mL (10-250)
[2022-11-08 15:48] LABS: Vitamin B12 664 pg/mL (200-900)
[2022-11-08 16:51] LABS: Folate 9.3 ng/mL (> or = 4.0)
[2022-11-09 15:23] LABS: Calcium (PTHI) 8.4 mg/dL (8.6-10.4); PTHI 166 pg/mL (16-77)
[2022-11-11 16:33] LABS: Zinc 49 mcg/dL (60-130)
[2022-11-13 03:23] LABS: Vitamin B1 12 nmol/L (8-30)
[2022-11-15 20:48] LABS: Vitamin A 33 mcg/dL (38-98)
== END 2022-11-08 06:58 | disposition home or self-care (01) ==
LOC: HO.HMGCLDS 06:57
PROVIDERS: PCP Internal Medicine; Visit Provider Physician Assistant Surgical
DX: K90.9 Intestinal malabsorption, unspecified (principal); Z98.84 Bariatric surgery status
CPT/HCPCS: 36415; 82306; 82607; 82728; 82746; 83540; 83970; 84425; 84590; 84630

== ENCOUNTER 2022-11-15 08:14 | Outpatient (AMB) | payer MEDICARE, SELFPAY ==
--- NOTE | 2022-11-15 08:22 | MHC.OFFVISWM ---
Intake VS Expanded 11/15/22 08:27 Height 5 ft 2 in Weight 132 lb 6.4 oz BMI 24.2 BP 110/68 Blood Pressure Location Rt brachial Blood Pressure Position Sitting Pulse 70 Pulse Source Pulse Oximeter Temp 96.8 F Temperature Source Tympanic Pulse Oximetry 97 Oxygen Delivery Method Room Air Body Fat 45.4 Body Fat Percentage 34.3 Free Fat Mass 86.8 Muscle Mass 82.4 Visceral Mass 7.0 Water Mass 61.6 BMR 1,195 Intake Visit Reasons: (OV) PO Diaphragmatic Hernia 08/17/22 Ceramic Restorer Required: No Allergies No Known Allergies Allergy (Unknown, Verified 11/15/22 08:25) Medication List - Last Reconciled 11/15/22 by JENELLE Mabry acetaminophen 500 mg (15.625 mL) PO Q6H PRN albuterol sulfate 90 mcg/actuation 2 puffs inhalation QID PRN blood sugar diagnostic As directed budesonide-formoterol 160-4.5 mcg/actuation (Symbicort) 2 puffs inhalation BID [calcium 500 mg PO BID] cetirizine 10 mg PO DAILY cholecalciferol (vitamin D3) (Vitamin D3) 25 mcg PO DAILY clonazepam 1 mg PO BEDTIME cyanocobalamin (vitamin B-12) 1,000 mcg subcut QMONTH dexlansoprazole 60 mg PO BID famotidine 40 mg BID gabapentin 100 - 200 mg PO BEDTIME PRN galcanezumab-gnlm (Emgality Pen) 120 mg subcut QMONTH lancets As directed multivitamin 1 tab PO DAILY rimegepant (Nurtec ODT) 75 mg PO DAILY PRN sucralfate 10 mL PO QID vortioxetine (Trintellix) 20 mg PO DAILY zinc gluconate 10 mg PO DAILY HPI HPI Comments History of Present Illness Details 52 yo female returns for 3 month f/u after HH repair by Dr Mullen on 08/17/22. History is: GBP 2003 2007 lab band put in by Dr. Pate Feb 2020, pt came to Dr Mullen w severe GERD and nausea/vomiting, esophagitis and a persistent hiatal hernia and band slipping. Plus 40+ weight gain removed band 2019 Dr. Mullen - put on phentermine Was LTFU - returned 06/26/22 - Per Dr. Mullen note: Has a history of open gastric bypass at [facility] followed by a lap-band by Dr. Pate. Was admitted urgently at [facility] [place] for gastric outlet obstruction due to band slippage and required band removal. Since then she has lost to follow up. Reviewing her records she underwent an emergency surgery last August by Dr. Costello for a possible internal hernia complicated by an intra-abdominal abscess that required IR and drainage. Following that, she had an open umbilical hernia by Dr. Costello. The patient has a known diaphragmatic hernia The patient complains of severe GERD and progessively worsening vomiting leading to an about 25 lbs weight loss from 02/2020 - june 2022 s/p Diaphragmatic Hernia 08/17/[address] Mullen States that since meeting with Florence she has had an improvement in her overall health. She feels as though the reflux is 100 % better and she is satisfied with her current meal plans. She is followed by ariel Nair for osteoporosis, and previous dumping syndrome. She states she has an appointment 01/31/23 at 8:30 am. Meal plan: ensure max q am 2 HB eggs meal of 3 forks protein, 3 forks veg (x 2) Pure Protein bar at night Exercise plan: dog walking 45-60 min daily 11 am-noon joined [employer] [facility] Medical History Weight loss, non-intentional Hx of small bowel obstruction Intestinal malabsorption Hypoglycemia Gastric band slippage Major depressive disorder, recurrent severe without psychotic features Asthma Migraines Seasonal allergies Anxiety Depression Malabsorption due to intolerance, not elsewhere classified GERD (gastroesophageal reflux disease) Surgical History History of removal of laparoscopic gastric banding device History of esophagogastroduodenoscopy (EGD) Status post gastric banding Overweight (BMI 25.0-29.9) S/P wrist surgery H/O sinus surgery Previous back surgery Hx laparoscopic cholecystectomy S/P rotator cuff surgery Hx of hernia repair Hx of laparoscopic gastric banding History of Asa-en-Y gastric bypass Family History Father DM (diabetes mellitus) Heart disease Mother DM (diabetes mellitus) Heart disease Pulmonary hypertension Brother DM (diabetes mellitus) Heart disease Kidney disease Brother HTN (hypertension) DM (diabetes mellitus) High cholesterol Social History Household Members: None Housing: House Are you a primary child care centre director to a significant other at home: No Do you presently have visiting nurse or other home services: No Alcohol intake: former Patient Tobacco Use Status: Never used Tobacco Second Hand Smoke Exposure: No service: No Current occupational status: disabled Review of Systems Const All systems reviewed & are unremarkable except as noted in HPI and below Physical Exam Const General: healthy appearing and no acute distress Resp Effort & Inspection: normal respiratory effort Auscultation: clear to auscultation bilaterally Cardio Rate: regular rate Rhythm: regular rhythm GI Auscultation: normal bowel sounds Extrem General: Yes normal to inspection Assessment & Plan Assessment & Plan (1) S/P repair of paraesophageal hernia: Code(s): Z98.890 - Other specified postprocedural states; Z87.19 - Personal history of other diseases of the digestive system Plan: Overall doing well. Discussed her complaints of feeling hungry. Differentiated hunger vs anxiety/stress/bordom. Discussed not looking for feelings of stuffed . Discussed changing her outfook on food to one of energy, source of health and not to look for feelings of overfull. Pt really appreciated and is very satisfied with her current condition Will f/u w Florence in about a month to be sure still on track then more remotely. Continue PPI/MVI/Ramesh+D Re: Elevated PTH, She has f[place] Endocrine [place] [facility] I called Dr Steele office to make them aware of her elevated levels. They will follow up. Coding Level of Care Code Global (37352) Diagnoses S/P repair of paraesophageal hernia Z98.890; Z87.19
[2022-11-15 08:27] VITALS: BP 110/68; PULSE 70; TEMP 36; O2SAT 97; BMI 24.2
== END 2022-11-15 09:04 | disposition home or self-care (01) ==
PROVIDERS: PCP Internal Medicine; Visit Provider Physician Assistant Surgical
DX: K44.9 Diaphragmatic hernia without obstruction or gangrene (principal); Z87.19 Personal history of other diseases of the digestive system
CPT/HCPCS: 99024

== ENCOUNTER → 2022-11-15 08:14 | Outpatient (BNVA) | payer MEDICARE, SELFPAY | PROVIDERS: PCP Internal Medicine; Visit Provider Physician Assistant Surgical ==

== ENCOUNTER 2023-05-01 10:34 | Outpatient (AMB) | payer MEDICARE, SELFPAY ==
--- NOTE | 2023-05-01 10:45 | MHC.OFFVISWM ---
Intake VS Expanded 05/01/23 10:52 BP 142/61 H Blood Pressure Location Rt brachial Blood Pressure Position Sitting Pulse 63 Pulse Source Pulse Oximeter Temp 96.5 F L Temperature Source Tympanic Pulse Oximetry 99 Oxygen Delivery Method Room Air Height 5 ft 2 in Weight 174 lb 9.6 oz BMI 31.9 Body Fat % 44.9 Body Fat Mass 78.2 Fat Free Mass 96.2 Visceral Fat Rating 11.0 Body Water % 39.2 Body Water Mass 68.4 Muscle Mass/Score 91.2 Basal Metabolic Rate/Score 1,357 Intake Visit Reasons: (OV) PO Diaphragmatic Hernia 08/17/22 Allergies No Known Allergies Allergy (Unknown, Verified 11/15/22 08:25) Medication List - Last Reconciled 05/01/23 by Chula Hennessy PA-C albuterol sulfate 90 mcg/actuation 2 puffs inhalation QID PRN blood sugar diagnostic As directed budesonide-formoterol 160-4.5 mcg/actuation (Symbicort) 2 puffs inhalation BID [calcium 500 mg PO BID] cetirizine 10 mg PO DAILY cholecalciferol (vitamin D3) (Vitamin D3) 25 mcg PO DAILY clonazepam 1 mg PO BEDTIME cyanocobalamin (vitamin B-12) 1,000 mcg subcut QMONTH dexlansoprazole 60 mg PO BID gabapentin 100 - 200 mg PO BEDTIME PRN galcanezumab-gnlm (Emgality Pen) 120 mg subcut QMONTH lancets As directed aftighzntxpx-rzh-adqk-FA-vit K 45 mg iron- 800 mcg-120 mcg (Bariatric Multivitamins) caps PO rimegepant (Nurtec ODT) 75 mg PO DAILY PRN vortioxetine (Trintellix) 20 mg PO DAILY HPI HPI Comments History of Present Illness Details 52 yo woman here for 9 month follow up of diaphragmatic hernia repair by Dr Smith August 2022. She had previous GBP 2003 and lap band placement 2007 with severe food intolerances. LAp band removed [address] Smith. Benjie seen in our office by Baudilio Conley in November at 132 lbs and was supposed to have follow up with Florence in one month but didn't. Saw an RD for weight loss about 3 months ago. She made this appt due to abd pain and weight gain. States has lots of nausea now, vomits once or twice per month. Has constant pain in right mid abdomen, has regular formed BM's daily. Has no reflux symptoms while taking her meds. Sees Dr Steele (business intelligence etl developer) for elevated PTH. Wakes up at 7am, bed at 10 pm no caffeine 8am - Orgain powder with UAM with 1.5 TBL [place] citizen yogurt and a banana - over 1 hour 12 - 1pm - 5-6 forkfuls (palm of hand) chicken or fish with 2 cups of salad (lettuce, croutons and cheese) or 1 c cooked vegetables. water or unsweetened iced tea. -- over 10 - 15 minutes minutes 5pm - whole tuna sandwich and water. 10 - 15 minutes 8pm - protein bar 4 d/ week OR has donuts or something else sweet 3-4 d/ week. Exercise - had surgery in January on her ankle- was cleared for exercise in March. Walks dogs for 30 minutes daily. [facility] Medical History Weight loss, non-intentional Hx of small bowel obstruction Intestinal malabsorption Hypoglycemia Gastric band slippage Major depressive disorder, recurrent severe without psychotic features Asthma Migraines Seasonal allergies Anxiety Depression Malabsorption due to intolerance, not elsewhere classified GERD (gastroesophageal reflux disease) Surgical History History of removal of laparoscopic gastric banding device History of esophagogastroduodenoscopy (EGD) Status post gastric banding Overweight (BMI 25.0-29.9) S/P wrist surgery H/O sinus surgery Previous back surgery Hx laparoscopic cholecystectomy S/P rotator cuff surgery Hx of hernia repair Hx of laparoscopic gastric banding History of Asa-en-Y gastric bypass Family History Father DM (diabetes mellitus) Heart disease Mother DM (diabetes mellitus) Heart disease Pulmonary hypertension Brother DM (diabetes mellitus) Heart disease Kidney disease Brother HTN (hypertension) DM (diabetes mellitus) High cholesterol Social History Household Members: None Housing: House Are you a primary certified caregiver to a significant other at home: No Do you presently have visiting nurse or other home services: No Alcohol intake: former Comment: 2 Patient Tobacco Use Status: Never used Tobacco Second Hand Smoke Exposure: No service: No Current occupational status: disabled Physical Exam Vital Signs: Last Vital Signs Temp 96.5 F L 05/01/23 10:52 Pulse 63 05/01/23 10:52 BP 142/61 H 05/01/23 10:52 Pulse Ox 99 05/01/23 10:52 Oxygen Delivery Method Room Air 05/01/23 10:52 BMI result Body Mass Index 31.9 Assessment & Plan Assessment & Plan (1) Obesity: Code(s): E66.9 - Obesity, unspecified Plan: Pt has extensive bariatric surgery history of GBP, then band over pouch, she had the band removed 2021 then diaphragmatic hernia repair in August 2022. She has gained 40 lbs sicne Nov 2022 and c/o of reflux despite PPI bid. She is not eating properly, eating very large portions of food very frequently. She states she understands this but wants another surgery to fix my cravings . I discussed with her that we can help her with an appropriate meal and exercise plan and she stated that she does not want that and will go to a [facility] in [place] to get more surgery . I told her she could text Dr Smith if she chose to regarding our discussion. She chose to leave our appt without any recommendations regarding meal or exercise. Patient is obese and is not considered stable at this time. I spent 30 minutes in total with patient reviewing/updating records, examining the patient and counseling the patient on weight management as detailed above. I have made Dr Smith aware of this conversation. (2) S/P repair of paraesophageal hernia: Code(s): Z98.890 - Other specified postprocedural states; Z87.19 - Personal history of other diseases of the digestive system (3) Intra-abdominal adhesions: Code(s): K66.0 - Peritoneal adhesions (postprocedural) (postinfection) Plan see above Coding Level of Care Code Est Pt Level 4 (01581) Diagnoses Obesity E66.9 S/P repair of paraesophageal hernia Z98.890; Z87.19 Intra-abdominal adhesions K66.0
[2023-05-01 10:52] VITALS: BP 142/61; PULSE 63; TEMP 35.8; O2SAT 99; BMI 31.9
== END 2023-05-01 11:35 | disposition home or self-care (01) ==
PROVIDERS: PCP Internal Medicine; Visit Provider Physician Assistant
DX: E66.9 Obesity, unspecified (principal); Z98.890 Other specified postprocedural states; Z87.19 Personal history of other diseases of the digestive system; Z68.31 Body mass index [BMI] 31.0-31.9, adult; K66.0 Peritoneal adhesions (postprocedural) (postinfection)
CPT/HCPCS: 99214

== ENCOUNTER → 2023-05-01 10:34 | Outpatient (BNVA) | payer MEDICARE, SELFPAY | PROVIDERS: PCP Internal Medicine; Visit Provider Physician Assistant | DX: E66.9 Obesity, unspecified (principal); K66.0 Peritoneal adhesions (postprocedural) (postinfection); Z98.890 Other specified postprocedural states; Z87.19 Personal history of other diseases of the digestive system; Z68.31 Body mass index [BMI] 31.0-31.9, adult | CPT/HCPCS: 99212 ==